=== PATIENT | male | born 1960 | race Caucasian/White ===

== ENCOUNTER 2023-02-07 10:30 | Outpatient (OUT) | payer MEDICARE, SELFPAY ==
--- NOTE | 2023-02-07 11:11 | MR_ITS ---
[address] [address] Patient Name: ELISE TABOR MRN: [id number] date: 1960 Sex: M Assigned Patient Location: MRI Current Patient Location: MRI Accession/Order Number: [id number] Exam Date: 02/07/2023 12:07 Report Date: 02/07/2023 13:24 At the request of: NON-STAFF PHYSICIAN Procedure: MR cervical spine wo con EXAM: MRI of the cervical spine without IV contrast. REASON FOR EXAM: Neck Pain,M54.2; Chronic Daily Headache R51.9 COMPARISON: None FINDINGS: No cervical spine fractures, acute malalignment or acute abnormal marrow signal. No spinal canal mass, hematoma or fluid collection. No abnormal cord signal. Mild retrolisthesis of C6 on C7 and C7 on T1. Small C4-C5, C6-C7 and C7-T1 posterior disc protrusions. Degenerative changes throughout the cervical spine with mild C6-C7 and C7-T1 disc space narrowing. Mild C4-C5 spinal canal stenosis. Mild to moderate C6-C7 and C7-T1 spinal canal stenoses. No other substantial spinal canal stenoses. Mild left C2-C3 neural foraminal stenosis. Mild bilateral C3-C4 neural foraminal stenoses. Moderate left and mild right C4-C5 neural foraminal stenoses. Mild bilateral C5-C6 neural foraminal stenoses. Moderate bilateral C6-C7 neural foraminal stenoses. Moderate bilateral C7-T1 neural foraminal stenoses. Remainder unremarkable. IMPRESSION: 1. No acute cervical spine abnormalities. 2. Mild to moderate C6-C7 and C7-T1 spinal canal stenoses. 3. Moderate left C4-C5, bilateral C6-C7 and bilateral C7-T1 neural foraminal stenoses. Electronically authenticated by: GERARD TORO Date: 02/07/2023 13:24
--- NOTE | 2023-02-07 13:25 | MR_ITS ---
[address] [address] Patient Name: ELISE TABOR MRN: [id number] date: 1960 Sex: M Assigned Patient Location: MRI Current Patient Location: MRI Accession/Order Number: [id number] Exam Date: 02/07/2023 12:45 Report Date: 02/07/2023 13:45 At the request of: NON-STAFF PHYSICIAN Procedure: MR lumbar spine wo con EXAM: MRI of the lumbar spine without IV gadolinium contrast. REASON FOR EXAM: degenerative disc disease M51.36; Parasthesia R20.2, back pain COMPARISON: None FINDINGS: No lumbar spine fractures, acute malalignment or acute abnormal marrow signal. No spinal canal mass, hematoma or fluid collection. Minimal grade 1 retrolisthesis of L2 on L3, L3-L4 and L4 on L5. Advanced degenerative changes throughout the lumbar spine with multilevel degenerative disc change/disc space narrowing. Small posterior disc protrusion at the L2-L3, L4-5 and L5-S1 levels. Mild L2-L3 spinal canal stenosis. Stenosis of the left lateral recess at the L3-L4 level. Mild L4-5 spinal canal stenosis with stenosis of the lateral recesses bilaterally. No other substantial neural foraminal stenoses. Mild right L3-L4 neural foraminal stenosis. Moderate right L4-5 and L5-S1 neural foraminal stenoses. Mild left L1-L2 neural foraminal stenosis. Moderate left L2-L3 neural foraminal stenosis. Mild left L3-L4 neural foraminal stenosis. Mild to moderate left L4-5 and L5-S1 neural foraminal stenoses. Remainder unremarkable. IMPRESSION: 1. No acute lumbar spine abnormalities. 2. Advanced degenerative disc changes throughout the lumbar spine. 3. Mild L2-L3, L3-L4 and L4-5 spinal canal stenoses. 4. Moderate right L4-5 and left L2-L3 neural foraminal stenoses. Electronically authenticated by: GERARD TORO Date: 02/07/2023 13:45
== END 2023-02-07 10:31 ==
LOC: MRI 10:37
DX: M51.36 Other intervertebral disc degeneration, lumbar region (principal); R20.2 Paresthesia of skin; M48.061 Spinal stenosis, lumbar region without neurogenic claudication; M48.02 Spinal stenosis, cervical region
CPT/HCPCS: 72141; 72148

== ENCOUNTER 2023-04-01 12:07 | Emergency (ER) | payer MEDICARE, SELFPAY ==
[2023-04-01] VITALS (19 sets, daily range): BP systolic 119–139; BP diastolic 84–89; PULSE 63–91; RESP 12–25; TEMP 36.8; O2SAT 88–98; BMI 35.9
--- NOTE | 2023-04-01 12:47 | ECG_ITS ---
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
--- NOTE | 2023-04-01 12:52 | XR_ITS ---
The [address] [address] Patient Name: ELISE TABOR MRN: [id number] date: 1960 Sex: M Assigned Patient Location: ER Current Patient Location: ED.MAIN Accession/Order Number: [id number] Exam Date: 04/01/2023 13:55 Report Date: 04/01/2023 14:24 At the request of: PARISH GANDARA Procedure: XR chest 2V EXAMINATION: XR chest 2V HISTORY: sob , productive cough COMPARISON: XR chest 06/06/2021 FINDINGS: LUNGS: Mild stranding within the lung bases and indistinctness of the heart margins. Hyperexpanded lungs. VASCULATURE: No increased pulmonary vasculature. PLEURA: No pneumothorax, effusion, or pleural thickening. CARDIAC: No cardiomegaly or cardiac silhouette abnormality. MEDIASTINUM: No visible mass or adenopathy. Prior sternotomy. BONES: No fracture or visible bone lesion. OTHER: Negative. XR/XR chest 2V IMPRESSION: 1. Hyperexpanded lungs. 2. Mild bibasilar stranding; stable compared to 2020 favoring chronic interstitial changes. Electronically authenticated by: ALEYDA DYER Date: 04/01/2023 14:24
[2023-04-01] MEDS: IPRATROPIUM/ALBUTEROL SULFATE 3 ML AMPUL.NEB 6 ML IH (13:01)
[2023-04-01 13:02] LABS: Basophils Absolute Auto 0.1 10^3/uL (0.0-0.1); Basophils Percent Auto 0.9 % (0.2-2.0); Eosinophils Absolute Auto 0.2 10^3/uL (0.0-0.7); Eosinophils Percent Auto 3.7 % (0.9-7.0); Hematocrit 38.4 % (42.0-54.0); Hemoglobin 13.4 g/dL (14.0-18.0); Immature Granulocytes Abs Auto 0.03 10^3/uL (0.00-0.03); Immature Granulocytes Pct Auto 0.5 % (0.0-0.5); Lymphocytes Absolute Auto 1.2 10^3/uL (1.2-3.8); Lymphocytes Percent Auto 18.6 % (20.5-60.0); Mean Corpuscular HGB Conc 34.9 g/dL (29.9-35.2); Mean Corpuscular Hemoglobin 32.1 pg (25.9-34.0); Mean Corpuscular Volume 92.1 fL (80.0-94.0); Monocytes Absolute Auto 0.5 10^3/uL (0.3-0.8); Monocytes Percent Auto 7.4 % (1.7-12.0); Neutrophils Absolute Auto 4.5 10^3/uL (1.4-6.5); Neutrophils Percent Auto 68.9 % (43.0-75.0); Platelet Count 146 10^3/uL (150-450); Red Blood Count 4.17 10^6/uL (4.70-6.10); Red Cell Distribution Width 12.6 % (11.0-15.0); White Blood Count 6.5 10^3/uL (4.0-11.0)
--- NOTE | 2023-04-01 13:16 | ED_ITS ---
HPI - General Adult General Chief complaint: Upper Respiratory Infection Stated complaint: abdominal pain Time Seen by Provider: 04/01/23 12:46 Source: patient Mode of arrival: walk-in Limitations: no limitations History of Present Illness HPI narrative: Patient is a 63-year-old male who is presenting to the Emergency Room with a chief complaint of cough and congestion going on for 2 weeks, greenish sputum. Patient doesn't a history of chronic obstructive pulmonary disease. Patient does wear 3 L of nasal cannula at all times. He wears 3 L of nasal cannula at nighttime as well, no CPAP or BiPAP. Patient states he's been having left lower quadrant abdominal pain going on for a week and a half. Patient had nausea no vomiting. Patient was at his PCP office today, Dr. Coto. Patient sees Dr. Bunn for pulmonology. Patient has history of chronic obstructive pulmonary disease. Patient is on a lung transplant wait list. Patient has a history of sepsis. Patient also been complaining some dysuria. Patient was recommended to come to the Emergency Room. Evaluation to [facility] because this is where Dr. Bunn practices per PCP. . All systems are negative except as noted/marked. All systems reviewed and otherwise negative. . Nurses note and vital signs reviewed and patient is not hypoxic. General: The patient appears well and in no apparent distress. Patient is resting comfortably on cart. Patient is not toxic, lethargic, or listless Skin: Warm, dry, no pallor noted. There is no rash noted. No petechiae, purpura. Head: Normocephalic, atraumatic Eye: Normal conjunctiva, no drainage, EOMI. PERRL Ears, Nose, Mouth, and Throat: oral mucosa is moist. Nares patent. Mouth without vesicles. Cardiovascular: Regular Rate and Rhythm, no murmur, gallop, rub Respiratory: Patient is in no distress, no accessory muscle use, lungs are clear to auscultation, no wheezing, rales or rhonchi; decreased breath sounds bilateral, no obvious wheezing, crackles or rales noted. Back: non-tender, no CVA tenderness bilaterally to percussion. No CT LS midline pain GI: soft, obese, mild to moderate left lower quadrant tenderness palpation, no peritoneal signs, no distention, no flank pain bilateral, otherwise no tenderness to palpation, no masses appreciated. No rebound, guarding, or rigidity noted. No flank pain bilateral, No distention. Musculoskeletal: Patient has full range of motion of all of the extremities, no motor, sensory, or focal neurological deficits Neurological: A&O x3, normal speech Psychiatric: Cooperative Related Data Home Medications Medication Instructions Recorded Confirmed ascorbic acid (vitamin C) 500 mg 1 g PO DAILY 04/01/23 04/01/23 tablet (C-500) aspirin 81 mg tablet,delayed 81 mg PO DAILY 04/01/23 04/01/23 release atorvastatin 40 mg tablet 40 mg PO DAILY 04/01/23 04/01/23 cholecalciferol (vitamin D3) .Route 04/01/23 ferrous sulfate 325 mg (65 mg 325 mg PO DAILY 04/01/23 04/01/23 iron) tablet (Feosol) fluticasone fur. 200 mcg-umeclid 1 inh inhalation Q24H 04/01/23 04/01/23 62.5 mcg-vilant 25 mcg inhalat.powder (Trelegy Ellipta) gabapentin 300 mg capsule 300 mg PO Q8H 04/01/23 04/01/23 ipratropium 0.5 mg-albuterol 3 mg 3 ml inhalation Q8H PRN shortness 04/01/23 04/01/23 (2.5 mg base)/3 mL nebulization of breath soln lisinopril 5 mg tablet 5 mg PO DAILY 04/01/23 04/01/23 mecobalamin (vitamin B12) 1,000 1,000 mcg PO DAILY 04/01/23 04/01/23 mcg chewable tablet metoprolol succinate 50 mg 100 mg PO DAILY 04/01/23 04/01/23 tablet,extended release 24 hr naproxen 250 mg tablet 220 mg PO BID PRN pain 04/01/23 04/01/23 nitroglycerin 0.4 mg sublingual 0.4 mg sublingual Q5M PRN chest 04/01/23 04/01/23 tablet pain omeprazole 40 mg capsule,delayed 40 mg PO DAILY 04/01/23 04/01/23 release oxcarbazepine 150 mg tablet 150 mg PO DAILY 04/01/23 04/01/23 roflumilast 500 mcg tablet 500 mcg PO DAILY 04/01/23 04/01/23 testosterone 50 mg/5 gram (1 %) 100 mg transdermal DAILY 04/01/23 04/01/23 transdermal gel theophylline 400 mg 400 mg PO Q24H 04/01/23 04/01/23 tablet,extended release 24 hr zinc 50 mg tablet 50 mg PO DAILY 04/01/23 04/01/23 Previous Rx's Medication Instructions Recorded dicyclomine 20 mg tablet 20 mg PO TID PRN abdominal pain #7 04/01/23 tabs doxycycline hyclate 100 mg tablet 100 mg PO BID 10 days #20 tabs 04/01/23 ondansetron 4 mg disintegrating 4 mg PO Q4H PRN nausea and 04/01/23 tablet vomiting 3 days #6 tabs Allergies Allergy/AdvReac Type Severity Reaction Status Date / Time No Known Drug Allergies Allergy Verified 04/01/23 12:17 PFSH PFSH Social History Smoking status: Former smoker Exam Constitutional Vital Signs, click to edit/add: Last Vital Signs Temp 98.2 F 04/01/23 12:12 Pulse 79 04/01/23 15:20 Resp 15 04/01/23 15:20 BP 139/86 H 04/01/23 13:30 Pulse Ox 98 04/01/23 14:50 O2 Del Method Nasal Cannula 04/01/23 13:03 O2 Flow Rate 3 04/01/23 13:03 Course Vital Signs Vital signs: Vital Signs Temperature 98.2 F 04/01/23 12:12 Pulse Rate 85 04/01/23 12:12 Respiratory Rate 22 04/01/23 12:12 Pulse Oximetry 96 04/01/23 12:12 Oxygen Delivery Method Nasal Cannula 04/01/23 12:12 Oxygen Delivery Flow Rate 3 04/01/23 12:12 Temperature 98.2 F 04/01/23 12:12 Pulse Rate 79 04/01/23 15:20 Respiratory Rate 15 04/01/23 15:20 Blood Pressure 139/86 H 04/01/23 13:30 Pulse Oximetry 98 04/01/23 14:50 Oxygen Delivery Method Nasal Cannula 04/01/23 13:03 Oxygen Delivery Flow Rate 3 04/01/23 13:03 Medical Decision Making MDM Narrative Medical decision making narrative: EKG interpretation. Normal sinus rhythm at 74 beats a minute. Normal axis deviation. No acute ST elevation, no acute ectopy. QTC of 390. Nonspecific ST changes. patient's x-ray shows no acute changes. Patient CT abdomen and pelvis shows possible mild colitis of the colon:, X-ray report and CT report was given to patient and the impressions were discussed at bedside. patient feels slightly better after breathing treatment and IV fluids.Patient will be sent home with doxycycline since she's had cough, congestion for 2 weeks. Patient does not want to be on steroids. Patient has nebulizers at home. Patient was sent home with Zofran and Bentyl these as needed. Patient was very nice and thankful for care today, and appendectomy is not admitted to the [facility]. Patient has a history of sepsis, that is what he was worried about. No signs of any acute infection today Lab Data Labs: Lab Results 04/01/23 04/01/23 Range/Units 12:40 13:15 WBC 6.5 (4.0-11.0) 10^3/uL RBC 4.17 L (4.70-6.10) 10^6/uL Hgb 13.4 L (14.0-18.0) g/dL Hct 38.4 L (42.0-54.0) % MCV 92.1 (80.0-94.0) fL MCH 32.1 (25.9-34.0) pg MCHC 34.9 (29.9-35.2) g/dL RDW 12.6 (11.0-15.0) % Plt Count 146 L (150-450) 10^3/uL MPV 9.0 L (9.5-13.5) fL Neut % (Auto) 68.9 (43.0-75.0) % Lymph % (Auto) 18.6 L (20.5-60.0) % [place] % (Auto) 7.4 (1.7-12.0) % Eos % (Auto) 3.7 (0.9-7.0) % Baso % (Auto) 0.9 (0.2-2.0) % Neut # (Auto) 4.5 (1.4-6.5) 10^3/uL Lymph # (Auto) 1.2 (1.2-3.8) 10^3/uL [place] # (Auto) 0.5 (0.3-0.8) 10^3/uL Eos # (Auto) 0.2 (0.0-0.7) 10^3/uL Baso # (Auto) 0.1 (0.0-0.1) 10^3/uL Abs Immat Gran (auto) 0.03 (0.00-0.03) 10^3/uL Imm/Tot Granulo (auto) 0.5 (0.0-0.5) % Sodium 144 (136-145) mmol/L Potassium 4.1 (3.5-5.1) mmol/L Chloride 105 (98-107) mmol/L Carbon Dioxide 32.7 H (21.0-32.0) mmol/L Anion Gap 10.4 BUN 17.0 (7.0-18.0) mg/dL Creatinine 0.87 (0.70-1.30) mg/dL Est GFR ( Amer) >60 (>=60) Est GFR (Non-Af Amer) >60 (>=60) BUN/Creatinine Ratio 19.5 Glucose 97 (74-106) mg/dL Lactate 1.0 (0.4-2.0) mmol/L Calcium 8.8 (8.5-10.1) mg/dL Total Bilirubin 0.4 (0.2-1.0) mg/dL AST 24 (15-37) U/L ALT 38 (16-63) U/L Alkaline Phosphatase 73 (46-116) U/L Troponin I High Sens 16.8 (4.0-76.1) pg/mL Total Protein 7.0 (6.4-8.2) g/dL Albumin 3.7 (3.4-5.0) g/dL Globulin 3.3 g/dL Albumin/Globulin Ratio 1.1 Lipase 90.0 (73.0-393.0) U/L Urine Color Lt. yellow (YELLOW) Urine Clarity Clear (CLEAR) Urine pH 7.0 (5.0-9.0) Ur Specific [place] 1.010 (1.005-1.025) Urine Protein Negative (NEG/TRACE) mg/dL Urine Glucose (UA) Negative (NEGATIVE) mg/dL Urine Ketones Negative (NEGATIVE) mg/dL Urine Occult Blood Negative (NEGATIVE) Urine Nitrite Negative (NEGATIVE) Urine Bilirubin Negative (NEGATIVE) Urine Urobilinogen 0.2 (0.2-1.0) EU/dL Ur Leukocyte Esterase Trace A (NEGATIVE) Urine RBC 0-2 (0-2) #/HPF Urine WBC 2-5 A (NONE SEEN) #/HPF Ur Squamous Epith Cells Rare (NONE/RARE) #/LPF Urine Crystals None seen (None Seen) #/HPF Urine Bacteria None seen (NONE SEEN) #/HPF Urine Casts None seen (NONE SEEN) #/LPF Urine Mucus None seen (NONE SEEN) Ur Culture Indicated? No Discharge Plan Discharge Chief Complaint: Upper Respiratory Infection Clinical Impression: Upper respiratory infection, Abdominal pain, Bronchitis Condition: Fair Prescriptions / Home Meds: New doxycycline hyclate 100 mg tablet 100 mg PO BID 10 Days Qty: 20 0RF ondansetron 4 mg tablet,disintegrating 4 mg PO Q4H PRN (Reason: nausea and vomiting) 3 Days Qty: 6 0RF dicyclomine 20 mg tablet 20 mg PO TID PRN (Reason: abdominal pain) Qty: 7 0RF No Action atorvastatin 40 mg tablet 40 mg PO DAILY ipratropium-albuterol 0.5 mg-3 mg(2.5 mg base)/3 mL solution for nebulization 3 ml INHALATION Q8H PRN (Reason: shortness of breath) lisinopril 5 mg tablet 5 mg PO DAILY metoprolol succinate 50 mg tablet extended release 24 hr 100 mg PO DAILY omeprazole 40 mg capsule,delayed release(DR/EC) 40 mg PO DAILY theophylline 400 mg tablet extended release 24 hr 400 mg PO Q24H roflumilast 500 mcg tablet 500 mcg PO DAILY oxcarbazepine 150 mg tablet 150 mg PO DAILY Trelegy Ellipta 200-62.5-25 mcg blister with device 1 inh INHALATION Q24H gabapentin 300 mg capsule 300 mg PO Q8H aspirin 81 mg tablet,delayed release (DR/EC) 81 mg PO DAILY nitroglycerin 0.4 mg tablet, sublingual 0.4 mg sublingual Q5M PRN (Reason: chest pain) testosterone 50 mg/5 gram (1 %) gel 100 mg transdermal DAILY Patient Comments: naproxen 250 mg tablet 220 mg PO BID PRN (Reason: pain) mecobalamin (vitamin B12) 1,000 mcg tablet,chewable 1,000 mcg PO DAILY ascorbic acid (vitamin C) [C-500] 500 mg tablet 1 g PO DAILY cholecalciferol (vitamin D3) .Route ferrous sulfate [Feosol] 325 mg (65 mg iron) tablet 325 mg PO DAILY zinc 50 mg tablet 50 mg PO DAILY Instructions: Upper Respiratory Infection (ED), Acute Bronchitis (ED), Abdominal Pain (ED), Colitis (ED) Stand Alone Forms: Portal Instructions Referrals: Physician,Non-Staff, MD [Primary Care Provider] - 1 week
[2023-04-01 13:21] LABS: Alanine Aminotransferase 38 U/L (16-63); Albumin Globulin Ratio 1.1; Albumin Level 3.7 g/dL (3.4-5.0); Alkaline Phosphatase 73 U/L (46-116); Anion Gap 10.4; Aspartate Amino Transferase 24 U/L (15-37); BUN Creatinine Ratio 19.5; Bilirubin Total 0.4 mg/dL (0.2-1.0); Calcium 8.8 mg/dL (8.5-10.1); Carbon Dioxide 32.7 mmol/L (21.0-32.0); Chloride 105 mmol/L (98-107); Estimated GFR (African America >60 (>=60); Estimated GFR (Non-African Ame >60 (>=60); Globulin 3.3 g/dL; Glucose 97 mg/dL (74-106); Potassium 4.1 mmol/L (3.5-5.1); Sodium 144 mmol/L (136-145); Troponin I High Sensitivity 16.8 pg/mL (4.0-76.1)
[2023-04-01] MEDS: 0.9 % SODIUM CHLORIDE 1,000 ML 100 ML IV (13:24)
[2023-04-01 13:45] LABS: Bilirubin Urine NEGATIVE (NEGATIVE); Blood Urine NEGATIVE (NEGATIVE); Clarity Urine CLEAR (CLEAR); Color Urine LT. YELLOW (YELLOW); Glucose Urine UA NEGATIVE (NEGATIVE); Ketones Urine NEGATIVE (NEGATIVE); Leukocyte Esterase Urine TRACE (NEGATIVE); Nitrite Urine NEGATIVE (NEGATIVE); Protein Urine NEGATIVE (NEG/TRACE); Urobilinogen Urine 0.2 EU/dL (0.2-1.0)
--- NOTE | 2023-04-01 13:50 | CT_ITS ---
[address] [address] Patient Name: ELISE TABOR MRN: [id number] date: 1960 Sex: M Assigned Patient Location: ER Current Patient Location: Accession/Order Number: [id number] Exam Date: 04/01/2023 13:40 Report Date: 04/01/2023 14:38 At the request of: PARISH GANDARA Procedure: CT abdomen pelvis w con EXAMINATION: CT abdomen pelvis w con HISTORY: llq pain COMPARISON: No relevant comparison available. TECHNIQUE: Axial, Coronal, and Sagittal images were obtained without and/or with IV contrast as indicated by examination type. Dose reduction techniques were achieved by using automated exposure control and/or adjustment of mA and/or kV according to patient size and/or use of iterative reconstruction technique. FINDINGS: LUNG BASES: Incidental calcified granuloma within right lung base. No visible pulmonary or pleural disease. LIVER: No enlargement, atrophy, suspicious density, or significant focal lesion. BILIARY: Multiple small stones within noninflamed gallbladder. PANCREAS: No lesion, fluid collection, or abnormal duct dilatation. SPLEEN: No enlargement or focal lesion. ADRENALS: No mass or enlargement. KIDNEYS: Benign-appearing cyst within right and left kidney. No mass, obstruction, or calcification. BOWEL/MESENTERY: Completely empty colon with slightly edematous appearance of the hurst throughout its length. Unremarkable stomach and small bowel. Normal appendix. AORTA/VASCULAR: No aneurysm or dissection. RETROPERITONEUM: No mass or adenopathy. LYMPH NODES: No adenopathy. URINARY BLADDER: No visible focal wall thickening, lesion, or calculus. PELVIC ORGANS: No visible mass. Pelvic organs appropriate for patient age. ABDOMINAL WALL: No mass or hernia. BONES: Right convex curvature lumbar spine and multilevel marked degenerative disc disease. Bilateral hip replacements. OTHER: Negative. CT/CT abdomen pelvis w con IMPRESSION: 1.Slightly edematous appearance of hrust of the colon throughout its length; possible mild colitis. 2. Cholelithiasis. 3. Multilevel marked degenerative disc disease. Electronically authenticated by: ALEYDA DYER Date: 04/01/2023 14:38
[2023-04-01 14:02] LABS: Bacteria Urine NONE SEEN #/HPF (NONE SEEN); Mucus Urine NONE SEEN (NONE SEEN); RBC Urine 0-2 #/HPF (0-2); Squamous Epithelial Cell Urine RARE #/LPF (NONE/RARE)
[2023-04-01 14:03] LABS: Cast Seen? NONE SEEN #/LPF (NONE SEEN); Crystals Seen? None Seen #/HPF (None Seen); Urine Culture Indicated NO
== END 2023-04-01 15:43 | disposition home or self-care (01) ==
PROVIDERS: Emergency Provider Emergency Medicine
DX: J40 Bronchitis, not specified as acute or chronic (principal); J06.9 Acute upper respiratory infection, unspecified; R10.9 Unspecified abdominal pain; Z99.81 Dependence on supplemental oxygen; Z76.82 Awaiting organ transplant status; Z79.82 Long term (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 of aspirin; Z79.899 Other long term (current) drug therapy; Z87.891 Personal history of nicotine dependence
CPT/HCPCS: 36415; 71046; 74177; 80053; 81001; 83605; 83690; 84484; 85025; 93005; 94640; 99285; Q9967

== ENCOUNTER 2023-05-02 13:48 | Outpatient (OUT) | payer MEDICARE, SELFPAY ==
--- NOTE | 2023-05-02 14:30 | CT_ITS ---
The [address] [address] Patient Name: ELISE TABOR MRN: [id number] date: 1960 Sex: M Assigned Patient Location: CT Current Patient Location: Accession/Order Number: [id number] Exam Date: 05/02/2023 14:25 Report Date: 05/04/2023 09:21 At the request of: DARNELL ALICEA Procedure: CT lung screening low-dose EXAM: CT lung screening low-dose HISTORY: History Of Tobacco Dependence Z87.891 COMPARISON: Low-dose CT lung screen dated 04/26/2022. TECHNIQUE: Routine low-dose CT lung screen without intravenous contrast. FINDINGS: Cardiovascular: Previous coronary artery bypass graft surgery. Severe multivessel coronary calcifications. Mild aortic valvular calcification. Stable fusiform aneurysm of the ascending thoracic aorta measuring 4.7 cm. Mild atheromatous calcification thoracic and abdominal aorta. Mild atheromatous calcification origin of the great vessels off the aortic arch. Atheromatous calcifications scattered along the splenic artery. Dilated pulmonary trunk measuring 3.6 cm in transverse dimension consistent with pulmonary artery hypertension. Lungs: Centrilobular emphysema. Peribronchial thickening consistent with acute and/or chronic bronchitis. Atelectatic densities within the right middle and right lower lobes. Nodules: There are no suspicious masses or nodules within the chest. Lymphadenopathy: There are no pathologically enlarged axillary, mediastinal or hilar lymph nodes. Other: The trachea, esophagus and thyroid gland are unremarkable. Upper abdomen: Cholelithiasis. Osseous: The bony structures are osteopenic. There are endplate spurs and paravertebral ossifications at multiple levels along the spine. CT/CT lung screening low-dose IMPRESSION: Centrilobular emphysema with peribronchial thickening consistent with acute and/or chronic bronchitis. There are no suspicious masses or nodules within the chest or pathologically enlarged lymph nodes. Previous coronary artery bypass graft surgery. There are severe multivessel coronary calcifications. Stable fusiform aneurysm of the ascending thoracic aorta measuring 4.7 cm. Dilated pulmonary trunk measuring 3.6 cm in transverse dimension consistent with pulmonary artery hypertension. Cholelithiasis. Lung rads score 1. A low-dose CT lung screen examination in 12 months is recommended. Electronically authenticated by: JILLIAN CANTU Date: 05/04/2023 09:21
== END 2023-05-02 13:49 | disposition home or self-care (01) ==
LOC: CT 13:48
PROVIDERS: Visit Provider Internal Medicine
DX: Z87.891 Personal history of nicotine dependence (principal); J43.2 Centrilobular emphysema; Z95.1 Presence of aortocoronary bypass graft; I71.21 Aneurysm of the ascending aorta, without rupture; I27.20 Pulmonary hypertension, unspecified; K80.20 Calculus of gallbladder without cholecystitis without obstruction
CPT/HCPCS: 71271

== ENCOUNTER 2023-05-02 14:49 | Emergency (ER) | payer MEDICARE, SELFPAY ==
[2023-05-02 14:55] VITALS: BP 116/71; PULSE 78; RESP 18; O2SAT 95; BMI 36.5
[2023-05-02 16:07] VITALS: BP 144/81; PULSE 83; RESP 16; TEMP 36.6; O2SAT 96
[2023-05-02 16:11] VITALS: O2SAT 96
--- NOTE | 2023-05-02 16:11 | ED.SOB1 ---
HPI - SOB/Dyspnea General Chief Complaint: Shortness of Breath/Dyspnea Stated Complaint: SHORTNESS OF BREATH Time Seen by Provider: 05/02/23 16:11 Source: patient Mode of arrival: walk-in Limitations: no limitations History of Present Illness HPI Narrative: Patient presents to emergency department complaining of a cough. Patient states in the last 3 days has had a cough which is productive of yellow-green sputum. He states he has a history of chronic obstructive pulmonary disease and this has changed in color. Patient is on home oxygen. He is scheduled to see Dr. Bunn next week however he had a CT scan of his chest done just prior to coming to the emergency department. Patient states he stopped his oxygen a little better at home. He denies any chest pain, nausea, vomiting, diarrhea, constipation, abdominal pain. He is not currently on any antibiotics, or steroids. He denies any Fever but states he had chills. Patient states he called his primary doctor and his primary care doctor normally gives him a Z-Dl for this and that is what he needs one now. He already had a CAT scan done does not have any other complaints and is asking for me to help him with a Z-Dl. He states no past if he doesn't get the infection early on the control is gets pneumonia easily has to be hospitalized. Related Data Home Medications Medication Instructions Recorded Confirmed ascorbic acid (vitamin C) 500 mg 1 g PO DAILY 04/01/23 04/01/23 tablet (C-500) aspirin 81 mg tablet,delayed 81 mg PO DAILY 04/01/23 04/01/23 release atorvastatin 40 mg tablet 40 mg PO DAILY 04/01/23 04/01/23 cholecalciferol (vitamin D3) .Route 04/01/23 ferrous sulfate 325 mg (65 mg 325 mg PO DAILY 04/01/23 04/01/23 iron) tablet (Feosol) fluticasone fur. 200 mcg-umeclid 1 inh inhalation Q24H 04/01/23 04/01/23 62.5 mcg-vilant 25 mcg inhalat.powder (Trelegy Ellipta) gabapentin 300 mg capsule 300 mg PO Q8H 04/01/23 04/01/23 ipratropium 0.5 mg-albuterol 3 mg 3 ml inhalation Q8H PRN shortness 04/01/23 04/01/23 (2.5 mg base)/3 mL nebulization of breath soln lisinopril 5 mg tablet 5 mg PO DAILY 04/01/23 04/01/23 mecobalamin (vitamin B12) 1,000 1,000 mcg PO DAILY 04/01/23 04/01/23 mcg chewable tablet metoprolol succinate 50 mg 100 mg PO DAILY 04/01/23 04/01/23 tablet,extended release 24 hr naproxen 250 mg tablet 220 mg PO BID PRN pain 04/01/23 04/01/23 nitroglycerin 0.4 mg sublingual 0.4 mg sublingual Q5M PRN chest 04/01/23 04/01/23 tablet pain omeprazole 40 mg capsule,delayed 40 mg PO DAILY 04/01/23 04/01/23 release oxcarbazepine 150 mg tablet 150 mg PO DAILY 04/01/23 04/01/23 roflumilast 500 mcg tablet 500 mcg PO DAILY 04/01/23 04/01/23 testosterone 50 mg/5 gram (1 %) 100 mg transdermal DAILY 04/01/23 04/01/23 transdermal gel theophylline 400 mg 400 mg PO Q24H 04/01/23 04/01/23 tablet,extended release 24 hr zinc 50 mg tablet 50 mg PO DAILY 04/01/23 04/01/23 Previous Rx's Medication Instructions Recorded dicyclomine 20 mg tablet 20 mg PO TID PRN abdominal pain #7 04/01/23 tabs doxycycline hyclate 100 mg tablet 100 mg PO BID 10 days #20 tabs 04/01/23 ondansetron 4 mg disintegrating 4 mg PO Q4H PRN nausea and 04/01/23 tablet vomiting 3 days #6 tabs azithromycin 250 mg tablet See Rx Instructions PO .COMPLEX #6 05/02/23 (Zithromax) tabs Allergies Allergy/AdvReac Type Severity Reaction Status Date / Time No Known Drug Allergies Allergy Verified 04/01/23 12:17 Review of Systems ROS Status of ROS 10 or more systems reviewed and unremarkable except as noted in history and below [facility] Social History Smoking status: Former smoker Exam Narrative Exam Narrative: Nurses notes and vital signs reviewed and patient is not hypoxic. General: Nontoxic,and in no apparent distress. Skin: Warm, dry, no pallor noted. No Rash Head: Normocephalic, atraumatic. Neck: Supple, non-tender. Eye: Pupils are equal, round and EOMI. No scleral icterus. Ears, Nose, Mouth, and Throat: TM clear, no posterior oropharynx erythema or nasal mucosal hypertrophy, uvula is mid-line Oral mucosa is moist Cardiovascular: Regular Rate and Rhythm without murmur, gallop or rub. Respiratory: No accessory muscle use or respiratory distress. Lungs are clear to auscultation, no wheezing, rales or rhonchi Chest Wall: no tenderness Back: No midline thoracic or lumbar vertebral tenderness. No CVA tenderness Musculoskeletal: normal ROM, no calf or popliteal tenderness, no lower extremity edema/swelling GI: Abdomen is soft, non-distended. Normal bowel sounds. No masses appreciated. No tenderness to palpation. No rebound, guarding, or rigidity noted. Neurological: A&O x4. No cranial nerve dysfunction observed. No truncal ataxia. Moves all extremities. Sensation intact. Psychiatric: Cooperative and interactive. Normal mood and affect. Constitutional Vital Signs, click to edit/add: Last Vital Signs Temp 97.9 F 05/02/23 16:07 Pulse 83 05/02/23 16:07 Resp 16 05/02/23 16:07 BP 144/81 H 05/02/23 16:07 Pulse Ox 96 05/02/23 16:11 O2 Del Method Nasal Cannula 05/02/23 16:11 O2 Flow Rate 3 05/02/23 16:11 Course Vital Signs Vital signs: Vital Signs Pulse Rate 78 05/02/23 14:55 Respiratory Rate 18 05/02/23 14:55 Blood Pressure 116/71 05/02/23 14:55 Pulse Oximetry 95 05/02/23 14:55 Oxygen Delivery Method Nasal Cannula 05/02/23 14:55 Oxygen Delivery Flow Rate 3 05/02/23 14:55 Temperature 97.9 F 05/02/23 16:07 Pulse Rate 83 05/02/23 16:07 Respiratory Rate 16 05/02/23 16:07 Blood Pressure 144/81 H 05/02/23 16:07 Pulse Oximetry 96 05/02/23 16:11 Oxygen Delivery Method Nasal Cannula 05/02/23 16:11 Oxygen Delivery Flow Rate 3 05/02/23 16:11 MDM - SOB/Dyspnea MDM Narrative Medical decision making narrative: CT scan of the chest was reviewed by me. CT scan results by radiology are not available at this time. Patient has nebulized treatments at home. He'll follow up with Dr. Knight next week. Given a prescription for Zithromax. At this time the patient is without objective evidence of an acute process requiring hospitalization or inpatient management. The patient has remained hemodynamically stable. No additional indication for emergent studies at this time. I answered all questions. Discussed discharge instructions including standard anticipatory guidance and what should prompt a return to the emergency department, including if they get worse are not getting better or develops any new or concerning symptoms. I've given them specific time frame in which to follow-up, and who to follow-up with. The patient demonstrates understanding. Patient is nontoxic and stable for discharge with outpatient follow-up. This note was created with the assistance of a speech recognition program. Although the intention is to generate documents that actually reflects the content of the visit, no guarantees can be provided that every mistake has been identified and corrected by editing. Differential Diagnosis Differential diagnosis: Likely acute exacerbation of chronic obstructive airways disease, congestive heart failure, community acquired pneumonia and asthma with exacerbation Discharge Plan Discharge Chief Complaint: Shortness of Breath/Dyspnea Clinical Impression: Acute infective exacerbation of chronic obstructive airway disease Time of Disposition Decision: 16:23 Condition: Good Mode of Transportation: Private Vehicle Prescriptions / Home Meds: New azithromycin [Zithromax] 250 mg tablet See Rx Instructions .ROUTE .COMPLEX Qty: 6 0RF Rx Instructions: For 250 mg dose pack: take 500 mg today (day 1), then 250 mg for 4 days (days 2-5) No Action atorvastatin 40 mg tablet 40 mg PO DAILY ipratropium-albuterol 0.5 mg-3 mg(2.5 mg base)/3 mL solution for nebulization 3 ml INHALATION Q8H PRN (Reason: shortness of breath) lisinopril 5 mg tablet 5 mg PO DAILY metoprolol succinate 50 mg tablet extended release 24 hr 100 mg PO DAILY omeprazole 40 mg capsule,delayed release(DR/EC) 40 mg PO DAILY theophylline 400 mg tablet extended release 24 hr 400 mg PO Q24H roflumilast 500 mcg tablet 500 mcg PO DAILY oxcarbazepine 150 mg tablet 150 mg PO DAILY Trelegy Ellipta 200-62.5-25 mcg blister with device 1 inh INHALATION Q24H gabapentin 300 mg capsule 300 mg PO Q8H aspirin 81 mg tablet,delayed release (DR/EC) 81 mg PO DAILY nitroglycerin 0.4 mg tablet, sublingual 0.4 mg sublingual Q5M PRN (Reason: chest pain) testosterone 50 mg/5 gram (1 %) gel 100 mg transdermal DAILY Patient Comments: naproxen 250 mg tablet 220 mg PO BID PRN (Reason: pain) mecobalamin (vitamin B12) 1,000 mcg tablet,chewable 1,000 mcg PO DAILY ascorbic acid (vitamin C) [C-500] 500 mg tablet 1 g PO DAILY cholecalciferol (vitamin D3) .Route ferrous sulfate [Feosol] 325 mg (65 mg iron) tablet 325 mg PO DAILY zinc 50 mg tablet 50 mg PO DAILY doxycycline hyclate 100 mg tablet 100 mg PO BID 10 Days Qty: 20 0RF ondansetron 4 mg tablet,disintegrating 4 mg PO Q4H PRN (Reason: nausea and vomiting) 3 Days Qty: 6 0RF dicyclomine 20 mg tablet 20 mg PO TID PRN (Reason: abdominal pain) Qty: 7 0RF Instructions: COPD (Chronic Obstructive Pulmonary Disease) (ED) Stand Alone Forms: Portal Instructions Referrals: Hu Bunn DO [Physician] - 1 week
--- NOTE | 2023-05-02 16:41 | ECG_ITS ---
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
== END 2023-05-02 16:40 | disposition home or self-care (01) ==
PROVIDERS: Emergency Provider Emergency Medicine
DX: J43.2 Centrilobular emphysema (principal); Z87.891 Personal history of nicotine dependence; Z95.1 Presence of aortocoronary bypass graft; I71.21 Aneurysm of the ascending aorta, without rupture; I27.20 Pulmonary hypertension, unspecified; K80.20 Calculus of gallbladder without cholecystitis without obstruction; Z79.899 Other long term (current) drug therapy; Z79.82 Long term (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 of aspirin
CPT/HCPCS: 71271; 93005; 99283

== ENCOUNTER 2023-06-12 11:17 | Emergency (ER) | payer MEDICARE, SELFPAY ==
[2023-06-12 11:26] VITALS: BP 124/84; PULSE 77; RESP 20; TEMP 36.6; O2SAT 95; BMI 37.3
--- NOTE | 2023-06-12 11:51 | XR_ITS ---
The [place] [id number] Patient Name: ELISE TABOR MRN: [id number] date: 1960 Sex: M Assigned Patient Location: ER Current Patient Location: ER Accession/Order Number: [id number] Exam Date: 06/12/2023 12:20 Report Date: 06/12/2023 13:34 At the request of: TAMAR SARKAR Procedure: XR hip LT min 2V PROCEDURE: XR hip LT min 2V COMPARISON: None. HISTORY: fall FINDINGS: BONES:No acute fracture or dislocation. Total hip arthroplasty with press-fit femoral stem component SOFT TISSUES:Negative. No visible soft tissue swelling. EFFUSION:None visible. OTHER: Vascular calcification XR/XR hip LT min 2V IMPRESSION: No acute abnormality Electronically authenticated by: JOSE GUADALUPE CLAIRE Date: 06/12/2023 13:34
--- NOTE | 2023-06-12 11:51 | XR_ITS ---
The [place] [id number] Patient Name: LEISE TABOR MRN: [id number] date: 1960 Sex: M Assigned Patient Location: ER Current Patient Location: ER Accession/Order Number: [id number] Exam Date: 06/12/2023 12:20 Report Date: 06/12/2023 13:05 At the request of: TAMAR SARKAR Procedure: XR knee LT 3V EXAM: XR knee LT 3V HISTORY: fall COMPARISON: None. TECHNIQUE: 3 views of the left knee FINDINGS: There is no acute fracture-dislocation. No knee joint effusion. There is mild medial compartment osteoarthritis. There is vascular calcification. The soft tissue is unremarkable. XR/XR knee LT 3V IMPRESSION: No acute process. Electronically authenticated by: JORGE HI Date: 06/12/2023 13:05
--- NOTE | 2023-06-12 11:51 | ED.LOWEXI1 ---
HPI - Extremity Injury (Lower) General Chief Complaint: Extremity Injury, Lower Stated Complaint: LOWER EXTREMITY INJURY LEFT KNEE Time Seen by Provider: 06/12/23 11:48 Source: patient Mode of arrival: Wheelchair Limitations: no limitations History of Present Illness HPI Narrative: 63-year-old male presents for left hip and left knee pain. He got up in the middle the night and he hit his right small toe and it caused him to fall and he felt a popping sensation in his left leg. Both his hip and his knee hurt. He has some bruising at the 5th toe the right foot but he is not worried about that and doesn't want an x-ray of his right foot. The pain in his left leg is moderate and worse when he moves it. Related Data Home Medications Medication Instructions Recorded Confirmed ascorbic acid (vitamin C) 500 mg 1 g PO DAILY 04/01/23 04/01/23 tablet (C-500) aspirin 81 mg tablet,delayed 81 mg PO DAILY 04/01/23 04/01/23 release atorvastatin 40 mg tablet 40 mg PO DAILY 04/01/23 04/01/23 cholecalciferol (vitamin D3) .Route 04/01/23 ferrous sulfate 325 mg (65 mg 325 mg PO DAILY 04/01/23 04/01/23 iron) tablet (Feosol) fluticasone fur. 200 mcg-umeclid 1 inh inhalation Q24H 04/01/23 04/01/23 62.5 mcg-vilant 25 mcg inhalat.powder (Trelegy Ellipta) gabapentin 300 mg capsule 300 mg PO Q8H 04/01/23 04/01/23 ipratropium 0.5 mg-albuterol 3 mg 3 ml inhalation Q8H PRN shortness 04/01/23 04/01/23 (2.5 mg base)/3 mL nebulization of breath soln lisinopril 5 mg tablet 5 mg PO DAILY 04/01/23 04/01/23 mecobalamin (vitamin B12) 1,000 1,000 mcg PO DAILY 04/01/23 04/01/23 mcg chewable tablet metoprolol succinate 50 mg 100 mg PO DAILY 04/01/23 04/01/23 tablet,extended release 24 hr naproxen 250 mg tablet 220 mg PO BID PRN pain 07/25/23 07/25/23 nitroglycerin 0.4 mg sublingual 0.4 mg sublingual Q5M PRN chest 04/01/23 04/01/23 tablet pain omeprazole 40 mg capsule,delayed 40 mg PO DAILY 04/01/23 04/01/23 release oxcarbazepine 150 mg tablet 150 mg PO DAILY 04/01/23 04/01/23 roflumilast 500 mcg tablet 500 mcg PO DAILY 04/01/23 04/01/23 testosterone 50 mg/5 gram (1 %) 100 mg transdermal DAILY 04/01/23 04/01/23 transdermal gel theophylline 400 mg 400 mg PO Q24H 04/01/23 04/01/23 tablet,extended release 24 hr zinc 50 mg tablet 50 mg PO DAILY 04/01/23 04/01/23 Previous Rx's Medication Instructions Recorded dicyclomine 20 mg tablet 20 mg PO TID PRN abdominal pain #7 04/01/23 tabs doxycycline hyclate 100 mg tablet 100 mg PO BID 10 days #20 tabs 04/01/23 ondansetron 4 mg disintegrating 4 mg PO Q4H PRN nausea and 04/01/23 tablet vomiting 3 days #6 tabs azithromycin 250 mg tablet See Rx Instructions PO .COMPLEX #6 05/02/23 (Zithromax) tabs acetaminophen 300 mg-codeine 30 mg 1 tab PO Q6H PRN pain 5 days #20 06/12/23 tablet tabs Allergies Allergy/AdvReac Type Severity Reaction Status Date / Time No Known Drug Allergies Allergy Verified 04/01/23 12:17 Review of Systems ROS Narrative A ten point review of systems is negative except as noted above. PFSH PFSH Social History Smoking status: Former smoker Exam Narrative Exam Narrative: Nurses note and vital signs reviewed and patient is not hypoxic. General: The patient appears well and in no apparent distress. Patient is resting comfortably on cart. Skin: Warm, dry, no pallor noted. There is no rash noted. Head: Normocephalic, atraumatic Eye: Normal conjunctiva, no drainage Ears, Nose, Mouth, and Throat: oral mucosa is moist. Cardiovascular: Regular Rate and Rhythm Respiratory: Patient is in no distress, no accessory muscle use, lungs are clear to auscultation, no wheezing, rales or rhonchi Back: non-tender GI: nontender Musculoskeletal: he has some bruising at the right 5th toe. Skin intact. No tenderness in the left foot or left ankle. The left knee has no deformity or swelling but has some tenderness in the left hip has some tenderness but no deformity. Neurological: A&O, normal speech Psychiatric: Cooperative Constitutional Vital Signs, click to edit/add: Last Vital Signs Temp 98 F 06/12/23 11:26 Pulse 77 06/12/23 11:26 Resp 20 06/12/23 11:26 BP 124/84 06/12/23 11:26 Pulse Ox 95 06/12/23 11:26 O2 Del Method Nasal Cannula 06/12/23 11:26 O2 Flow Rate 3 06/12/23 11:26 Course Vital Signs Vital signs: Vital Signs Temperature 98 F 06/12/23 11:26 Pulse Rate 77 06/12/23 11:26 Respiratory Rate 20 06/12/23 11:26 Blood Pressure 124/84 06/12/23 11:26 Pulse Oximetry 95 06/12/23 11:26 Oxygen Delivery Method Nasal Cannula 06/12/23 11:26 Oxygen Delivery Flow Rate 3 06/12/23 11:26 Temperature 98 F 06/12/23 11:26 Pulse Rate 77 06/12/23 11:26 Respiratory Rate 20 06/12/23 11:26 Blood Pressure 124/84 06/12/23 11:26 Pulse Oximetry 95 06/12/23 11:26 Oxygen Delivery Method Nasal Cannula 06/12/23 11:26 Oxygen Delivery Flow Rate 3 06/12/23 11:26 MDM - Extremity Injury (Lower) Differential Diagnosis Differential diagnosis: Likely other (Hip fracture, hip strain, knee fracture, knee strain) Imaging Data left hip and left knee x-rays: Radiologist's impression: Procedure: XR knee LT 3V EXAM: XR knee LT 3V HISTORY: fall COMPARISON: None. TECHNIQUE: 3 views of the left knee FINDINGS: There is no acute fracture-dislocation. No knee joint effusion. There is mild medial compartment osteoarthritis. There is vascular calcification. The soft tissue is unremarkable. IMPRESSION: No acute process. Electronically authenticated by: JORGE HI Date: 06/12/2023 13:05 Procedure: XR hip LT min 2V PROCEDURE: XR hip LT min 2V COMPARISON: None. HISTORY: fall FINDINGS: BONES:No acute fracture or dislocation. Total hip arthroplasty with press-fit femoral stem component SOFT TISSUES:Negative. No visible soft tissue swelling. EFFUSION:None visible. OTHER: Vascular calcification IMPRESSION: No acute abnormality Electronically authenticated by: JOSE GUADALUPE CLAIRE Date: 06/12/2023 Discharge Plan Discharge Chief Complaint: Extremity Injury, Lower Clinical Impression: Acute pain of left lower extremity Patient Disposition: Home, Self-Care Time of Disposition Decision: 13:48 Condition: Good Mode of Transportation: Private Vehicle Prescriptions / Home Meds: New acetaminophen-codeine 300-30 mg tablet 1 tab PO Q6H PRN (Reason: pain) 5 Days Qty: 20 0RF No Action atorvastatin 40 mg tablet 40 mg PO DAILY ipratropium-albuterol 0.5 mg-3 mg(2.5 mg base)/3 mL solution for nebulization 3 ml INHALATION Q8H PRN (Reason: shortness of breath) lisinopril 5 mg tablet 5 mg PO DAILY metoprolol succinate 50 mg tablet extended release 24 hr 100 mg PO DAILY omeprazole 40 mg capsule,delayed release(DR/EC) 40 mg PO DAILY theophylline 400 mg tablet extended release 24 hr 400 mg PO Q24H roflumilast 500 mcg tablet 500 mcg PO DAILY oxcarbazepine 150 mg tablet 150 mg PO DAILY Trelegy Ellipta 200-62.5-25 mcg blister with device 1 inh INHALATION Q24H gabapentin 300 mg capsule 300 mg PO Q8H aspirin 81 mg tablet,delayed release (DR/EC) 81 mg PO DAILY nitroglycerin 0.4 mg tablet, sublingual 0.4 mg sublingual Q5M PRN (Reason: chest pain) testosterone 50 mg/5 gram (1 %) gel 100 mg transdermal DAILY Patient Comments: naproxen 250 mg tablet 220 mg PO BID PRN (Reason: pain) mecobalamin (vitamin B12) 1,000 mcg tablet,chewable 1,000 mcg PO DAILY ascorbic acid (vitamin C) [C-500] 500 mg tablet 1 g PO DAILY cholecalciferol (vitamin D3) .Route ferrous sulfate [Feosol] 325 mg (65 mg iron) tablet 325 mg PO DAILY zinc 50 mg tablet 50 mg PO DAILY doxycycline hyclate 100 mg tablet 100 mg PO BID 10 Days Qty: 20 0RF ondansetron 4 mg tablet,disintegrating 4 mg PO Q4H PRN (Reason: nausea and vomiting) 3 Days Qty: 6 0RF dicyclomine 20 mg tablet 20 mg PO TID PRN (Reason: abdominal pain) Qty: 7 0RF azithromycin [Zithromax] 250 mg tablet See Rx Instructions .ROUTE .COMPLEX Qty: 6 0RF Rx Instructions: For 250 mg dose pack: take 500 mg today (day 1), then 250 mg for 4 days (days 2-5) Instructions: Leg Pain (ED) Stand Alone Forms: Portal Instructions Referrals: Taz Coto MD [Primary Care Provider] - 1 week
== END 2023-06-12 14:06 | disposition home or self-care (01) ==
PROVIDERS: Emergency Provider Emergency Medicine
DX: M79.605 Pain in left leg (principal); Z87.891 Personal history of nicotine dependence; Z96.642 Presence of left artificial hip joint; Z79.899 Other long term (current) drug therapy; Z79.82 Long term (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 of aspirin; W19.XXXA Unspecified fall, initial encounter
CPT/HCPCS: 73502; 73562; 99284

== ENCOUNTER 2023-08-13 11:42 | Outpatient (OUT) | payer MEDICARE, SELFPAY ==
--- NOTE | 2023-08-13 11:53 | XR_ITS ---
The [address] [address] Patient Name: ELISE TABOR MRN: [id number] date: 1960 Sex: M Assigned Patient Location: [facility] Current Patient Location: [facility] Accession/Order Number: [id number] Exam Date: 08/13/2023 12:00 Report Date: 08/14/2023 01:59 At the request of: MAURO BLANCO Procedure: XR wrist LT min 3V PROCEDURE: XR wrist LT min 3V HISTORY: Wrist Arthralgia M25.539 ; chronic left wrist pain; no known injury COMPARISON: None. FINDINGS: BONES:Degenerative changes of the first carpal-metacarpal joint. No fracture, dislocation, bone lesion. SOFT TISSUES:Mild calcium deposition within the triangular fibrocartilage. EFFUSION:None visible. OTHER: Negative. XR/XR wrist LT min 3V IMPRESSION: 1. No acute bone abnormality. 2. Moderate degenerative changes of the first carpal-metacarpal joint. Electronically authenticated by: ALEYDA DYER Date: 08/14/2023 01:59
--- NOTE | 2023-08-13 11:53 | XR_ITS ---
The [address] [address] Patient Name: ELISE TABOR MRN: [id number] date: 1960 Sex: M Assigned Patient Location: [facility] Current Patient Location: .MAIN Accession/Order Number: [id number] Exam Date: 08/13/2023 12:00 Report Date: 08/14/2023 01:52 At the request of: MAURO BLANCO Procedure: XR ankle RT min 3V PROCEDURE: XR ankle RT min 3V HISTORY: Ankle Arthritis M19.079 ; right ankle pain, rolled ankle COMPARISON: None. FINDINGS: BONES:1 mm os calcifications adjacent tip of lateral malleolus. Normal spacing and smooth articular surface of the ankle joint. SOFT TISSUES:Mild soft tissue swelling. EFFUSION:None visible. OTHER: Negative. XR/XR ankle RT min 3V IMPRESSION: 1. Tiny ossification at tip of lateral malleolus; sequela of remote injury/heterotopic bone formation versus tiny cortical avulsion. No prior studies for comparison. Electronically authenticated by: ALEYDA DYER Date: 08/14/2023 01:52
--- OUTSIDE RECORDS SUMMARY | 2023-08-27 02:05 | XMS_ITS | CCD ---
Author Name Unknown Address [address] [place] [address] Organization [facility] Care Team Providers Care Hand Riveter Name Role Phone MELLISA CLARKE Unavailable Unavailab le SYSTEM, PROVIDER NOT IN Unavailable Unavaila ble YUNELIDAA, BERLIN D Unavailable Unavailable CLARKE, MELLISA STOHLER Unavailable Unavailab le SYSTEM, PROVIDER NOT IN Unavailable Unavaila ble COLLETTE VILLANUEVA Unavailable Unavailable CLARKE, MELLISA STOHLER Unavailable Unavailab le SYSTEM, PROVIDER NOT IN Unavailable Unavaila ble YUPPA, BERLIN D Unavailable Unavailable CLARKE, MELLISA STOHLER Unavailable Unavailab le SYSTEM, PROVIDER NOT IN Unavailable Unavaila ble YUPPA, BERLIN D Unavailable Unavailable CLARKE, MELLISA STOHLER Unavailable Unavailab le SYSTEM, PROVIDER NOT IN Unavailable Unavaila ble Unknown, Referring Provider Unavailable Unav Dr. Popeye Monique Referring Unavailable UNKNOWN, PCP Primary Care Unavailable Dr. URIEL GRIFFITH Attending Unavail able SAMSA ., DARNELL Admitting Unavailable [facility] Primary Care Unavailable SAMSA ., DARNELL Attending Unavailable SAMSA ., DARNELL Consulting Unavailable SAMSA ., DARNELL Admitting Unavailable [facility] Primary Care Unavailable SAMSA ., DARNELL Attending Unavailable SAMSA ., DARNELL Consulting Unavailable MELINA GARZA Consulting Unavailable [facility] Primary Care Unavailable SAMSA ., DARNELL Attending Unavailable SAMSA ., DARNELL Consulting Unavailable SAMSA ., DARNELL Admitting Unavailable [facility] Primary Care Unavailable DR ALEYDA DYER Consulting Unavailable SAMSA ., DARNELL Attending Unavailable SAMSA ., DARNELL Admitting Unavailable SAMSA ., DARNELL Consulting Unavailable Medications Completed/Discontinued Medications Medication Drug Class(es) Dates Sig (Normalized) Sig (Original) albuterol 0.833 mg/ml / ipratropium bromide 0.167 mg/ml inhalation solution (4 sources) Anticholinergic, beta2-Adrenergic Agonist Start: 02-20-2022 Ipratropium-Alb uterol 0.5-2.5 (3) MG/3ML Inhalation Solution Quantity: 1350 Refills: 0 Ordered: 20-Feb-2022 DO Start : 20-Feb-2022 Active 30 actuat fluticasone furoate 0.1 mg/actuat / umeclidinium 0.0625 mg/actuat / vilanterol 0.025 mg/actuat dry powder inhaler (4 sources) Anticholinergic, Corticosteroid, beta2-Adrenergic Agonist Start: 03-15-2022 Trelegy Ellipta 100-62.5-25 MCG/INH AEPB Quantity: 180 Refills: 0 Ordered: 15-Mar-2022 DO Start : 15-Mar-2022 Active gabapentin 300 mg oral capsule (4 sources) Anti-epileptic Agent Start: 03-30-2022 Gabapentin 300 MG Oral Capsule Quantity: 270 Refills: 0 Ordered: 30-Mar-2022 DO Start : 30-Mar-2022 Active lisinopril 5 mg oral tablet (4 sources) Angiotensin Converting Enzyme Inhibitor Start: 03-14-2022 Lisinopril 5 MG Oral Tablet Quantity: 90 Refills: 0 Ordered: 14-Mar-2022 DO Start : 14-Mar-2022 Active 24 hr metoprolol succinate 50 mg extended release oral tablet (4 sources) beta-Adrenergic Melonie Start: 03-23-2022 take 1 tablet by mouth every twenty-four hours Metoprolol Succinate ER 50 MG Oral Tablet Extended Release 24 Hour Quantity: 135 Refills: 0 Ordered: 23-Mar-2022 DO Start : 23-Mar-2022 Active omeprazole 40 mg delayed release oral capsule (4 sources) Proton Pump Inhibitor Start: 03-19-2022 Omeprazole 40 MG Oral Capsule Delayed Release Quantity: 90 Refills: 0 Ordered: 19-Mar-2022 DO Start : 19-Mar-2022 Active roflumilast 0.5 mg oral tablet (4 sources) Phosphodiesterase 4 Inhibitor Start: 03-15-2022 Daliresp 500 MCG Oral Tablet Quantity: 90 Refills: 0 Ordered: 15-Mar-2022 DO Start : 15-Mar-2022 Active Problems Active Problems Problem Classification Problem Date Documented Da te Episodic/Chronic Aortic; peripheral; and visceral artery aneurysms (4 sources) Aneurysm of thoracic aorta; Translations: [Thoracic aneurysm without mention of rupture] Chronic Cardiac dysrhythmias (5 sources) Atrial fibrillation; Translations: [Atrial fibrillation] Onset: 2 Chronic Chronic obstructive pulmonary disease and bronchiectasis (12 sources) Chronic obstructive lung disease; Translations: [Chronic airway obstruction, not elsewhere classified] Onset: 2 Chronic Coronary atherosclerosis and other heart disease (4 sources) Coronary arteriosclerosis; Translations: [Coronary atherosclerosis of unspecified type of vessel, [place] or graft] Chronic Essential hypertension (4 sources) Hypertensive disorder; Translations: [Unspecified essential hypertension] Chronic Headache, including migraine (1 source) Headache; Translations: [Headache] Onset: 8 Episodic Melanomas of skin (4 sources) H/O Malignant melanoma; Translations: [Personal history of malignant melanoma of skin] Episodic Other aftercare (4 sources) Encounter for therapeutic drug level monitoring; Translations: [ENC THERAPEUTC DRUG LEVL MONITORING] Onset: 3 Episodic Other gastrointestinal disorders (4 sources) History of gastroesophageal reflux disease; Translations: [Personal history of other diseases of digestive system] Episodic Other gastrointestinal disorders (4 sources) H/O: gastrointestinal disease; Translations: [Personal history of other diseases of digestive system] Episodic Other hematologic conditions (4 sources) History of anemia; Translations: [Personal history of diseases of blood and blood-forming organs] Episodic Spondylosis; intervertebral disc disorders; other back problems (1 source) Cervicalgia; Translations: [Cervicalgia] Onset: 8 Episodic Unclassified (1 source) Neck Pain / [id number]() Onset: 8 Unclassified (1 source) Stiffness / 343() Onset: 8 Unclassified (1 source) Back Pain / 12() Onset: 8 Unclassified (1 source) Upper Extremity Weakness / [id number]() Onset: 8 Past or Other Problems Problem Classification Problem Date Documented Da te Episodic/Chronic Screening and history of mental health and substance abuse codes (1 source) Personal history of nicotine dependence; Translations: [PERSONAL HISTORY OF NICOTINE DEPEND] Onset: 04-29-2022 Episodic Results Test Name Value Interpretation Reference Range Facil ity THEOPHYLLINEon 12-30-2022 THEOPHYLLINE 18.0 ug/mL Normal 10.0-20.0 [facility] Comment on above: Performed By: #### T ADALID #### [facility] [address] [place], [place] [address] Dr. Karen Lee THEOPHYLLINEon 12-17-2022 THEOPHYLLINE 8.3 ug/mL Critically low 10.0-20.0 The [facility] Comment on above: Performed By: #### T ADALID #### [facility] [address] [place], [place] [address] Dr. Karen Lee Blood Pressure Cuff Sizeon 0 05-29-2022 Fall risk assessment a) No falls within the last year [facility] Work Phone: Tobacco use status CPHS b) No M [facility] Work Phone: Blood Pressure Cuff Size Large [facility] Work Phone: Office Visit (Thoracic and E sophageal Surgery)on 05-29-2022 Follow-up visit Diagnoses/Problems Assessed Atrial fibrillation (427.31) (I48.91) COPD (chronic obstructive pulmonary disease) (496) (J44.9) Provider Impressions Mr. Tabor has severe COPD but he has a homogeneous distribution on chest CT and would not benefit from surgical lung volume reduction. We will speak to Dr. Peña about the neck steps. History of Present Illness Mr. Tabor is referred for consideration of LVRS. 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 He is on 3 L nasal cannula oxygen chronically. He is set to begin pulmonary rehabilitation. Review of Systems A complete Review of Systems is present in the patient's chart. Active Problems Problems Atrial fibrillation (427.31) (I48.91) CAD (coronary artery disease) (414.00) (I25.10) COPD (chronic obstructive pulmonary disease) (496) (J44.9) HTN (hypertension) (401.9) (I10) Past Medical History Problems History of anemia (V12.3) (Z86.2) History of celiac disease (V12.79) (Z87.19) History of gastroesophageal reflux (GERD) (V12.79) (Z87.19) History of malignant melanoma (V10.82) (Z85.820) History of Thoracic aortic aneurysm (TAA) (441.2) (I71.2) Surgical History Problems History of Cataract surgery History of Coronary artery bypass graft History of Hernia repair History of Hip replacement History of Shoulder replacement Family History Mother Family history of cardiac disorder (V17.49) (Z82.49) Family history of malignant neoplasm of breast (V16.3) (Z80.3) Father Family history of cardiac disorder (V17.49) (Z82.49) Social History Problems Former smoker (V15.82) (Z87.891) Social alcohol use (V49.89) (Z78.9) Uses marijuana (305.20) (F12.90) Allergies Medication No Known Drug Allergies Recorded By: Any Francois; 05/24/2022 9:50:50 AM Current Meds Medication NameInstruction Daliresp 500 MCG Oral Tablet Gabapentin 300 MG Oral Capsule Ipratropium-Albuterol 0.5-2.5 (3) MG/3ML Inhalation Solution Lisinopril 5 MG Oral Tablet Metoprolol Succinate ER 50 MG Oral Tablet Extended Release 24 Hour Omeprazole 40 MG Oral Capsule Delayed Release Trelegy Ellipta 100-62.5-25 MCG/INH Inhalation Aerosol Powder Breath Activated Vitals Vital Signs Recorded: 29May2022 02:58PM Xasuvfvmczo98.2 F Heart Rate91 Vtqmofypscg17 Oeitdyvc332 Oqcwwvobt05 Blood Pressure Cuff SizeLarge Height5 ft 7.32 in Pdicys239 lb 7 oz BMI Rujaozqvzy99.15 kg/m2 BSA Calculated2.19 Tobacco Useb) No Falls Screening (Age 18+)a) No falls within the last year O2 Snemwkpjsb51, Nasal Cannula Pain Scale7 Physical Exam The patient is well-appearing and in no acute distress. Oral and nasal mucosa are clear. The neck had no cervical or supraclavicular adenopathy. The trachea and midline is without crepitus. The thyroid had no masses. There is no JVD. The lungs were clear to auscultation, there was no dullness to percussion, no fremitus or egophony. There was good effort and excursion. The heart had a regular rate and rhythm without murmurs, rubs or gallops. The abdomen was soft, nontender and nondistended, there was no palpable hepatosplenomegaly. The extremities had no cyanosis, clubbing, or edema. The skin was warm with no rashes, and there was good refill. The mood displayed no abnormalities. Gait was normal. Results/Data I looked at his CAT scan from 04/26/2022 he has severe COPD with a homogeneous distribution Signatures Electronically signed by : Uriel Griffith MD; May 29 2022 3:24PM EST (Author) Normal [facility] Referral Letteron 022 Referral Letter Mr. Tabor is refe rred for consideration of LVRS. 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 He is on 3 L nasal cannula oxygen chronically. He is set to begin pulmonary rehabilitation. I looked at his CAT scan from 04/26/2022 he has severe COPD with a homogeneous distribution Mr. Tabor has severe COPD but he has a homogeneous distribution on chest CT and would not benefit from surgical lung volume reduction. We will speak to Dr. Peña about the neck steps. Signatures Electronically signed by : Uriel Griffith MD; May 29 2022 3:24PM EST (Author) Normal T ouchCanoP CT LUNG CANCER SCREENINGon 0 04-26-2022 CT LUNG CANCER SCREENING EXAMINATION: CT LUNG CANCER SCREENING HISTORY: Nicotine dependence ; chronic shortness of breath, COPD COMPARISON: CTA chest 01/14/2018 TECHNIQUE: Axial, Coronal, and Sagittal images were created without the administration of IV contrast material. Dose reduction techniques were achieved by using automated exposure control and/or adjustment of mA and/or kV according to patient size and/or use of iterative reconstruction technique. FINDINGS: LUNGS: Moderate emphysematous changes. Large calcified granuloma within right lung base. PLEURA: No mass, effusion, or pneumothorax. VASCULATURE: No abnormality. YADY: No mass or pathologic adenopathy. MEDIASTINUM: No mass or pathologic adenopathy. CARDIAC: Atherosclerotic coronary artery disease. No pericardial effusion. AORTA: Dilation of the ascending aorta, 4.7 cm. CHEST WALL: No mass or axillary adenopathy BONES: No bone lesion or fracture. LIMITED ABDOMEN: No suspicious findings. Limited images of the upper abdomen. OTHER: Negative. IMPRESSION: 1. LUNG SCREENING: Lung-RADS Category 1 Negative. No nodules and definitely benign nodules. Continue annual screening with LDCT in 12 months. 2. Aneurysmal dilation of the ascending aorta, not significantly changed. Electronically authenticated by: ALEYDA DYER Date: 2022-04-26 16:[address] [facility] l HEMOGLOBINon 04-26-2022 Hemoglobin (Bld) [Mass/Vol] 13.6 g/dL Critically low 14.0 -18.0 [facility] [place] Comment on above: Performed By: #### H GB #### [facility] [address] [place] [address] Dr. Karen Lee Progress Noteson 06-04-2018 Protein mass conc Encounter [facility] THERAPYProgress Notes by Jacquelyn Rivera PT at 06/04/2018 8:31 AMAuthor: HAYES Natarajanervice: (none)Author Type: Physical TherapistFiled: 06/04/2018 8:36 AMEncounter Date: 06/04/2018Status: SignedEditor: Jacquelyn Rivera PT (Physical Therapist)Physical Therapy Discharge NotePrimary Diagnosis: CervicalgiaReporting Period: 04/08/18 to 04/23/18Patient was seen for a total of 5 treatment sessions.Treatment during this episode of care consisted of evaluation, therapeutic exercise, mechanicaltraction, and manual therapy.Objective data collection as of 04/23/18.NDI: 19/50 38% disabilitySPINE:Posture: Postural Deficit: Forward Head and Rounded ShoulderCervical Strength:Cervical:??Flexion: 4+??Extension: 4+Deep Cervical Flexors:?Cranial Cervical Flexion Test Score:?? Upper Trap: 4+Goal progression as of 04/23/18.OP THERAPY GOALS:Short Term Goals: STG to be met by 04/08/18 as discussed with and agreed upon by patient:1. Patient to be compliant with progressive HEP2. Pt will report 3 days without headaches. MET3. Pt will demonstrate full cervical ROM in rotation and SB without increase in pain. NOT METLong Term Goals: LTG to be met by 06/08/18 as discussed with and agreed upon by patient:1. Patient to be independent with progressive HEP in order to allow for continued strength,flexibility, and functional training after skilled care2. Pt will decrease score on NDI to <30 % disability to indicate and increase in function andreduction in symptoms. 38% NOT MET3. Pt will report no headaches for > 7 days. PROGRESSED up to 5 days. NOT MET4. Pt will demonstrate neck and scapular muscle strength at 4+/5 to improve upright posture. METGoals could not be further addressed due to patient not returning to therapy. Please refer toinitial evaluation and/or last progress report for further data. Pt self discharged with last txsession with [employer].Patient is being discharged due to not returning to therapy and/or Plan of Care being .Recommend patient continue with HEP previously instructed on during therapy as appropriate.Patient may be reinstated in therapy upon new evaluation and orders from the physician.Thank You. [facility] Progress Noteson 04-23-2018 Protein mass conc [facility] THERAPYProgress Notes by Berlin Valle PTA at 04/23/2018 9:00 AMAuthor: Berlin Valle PTAService: (none)Author Type: Physical Therapy AssistantFiled: 04/23/2018 9:46 AMEncounter Date: 04/23/2018Status: SignedEditor: Berlin Valle PTA (Gluing Machine Feeder)Physical Therapy Treatment NoteVisit Number: 5Encounter diagnosis:ICD-10-CM1.FmqzqimwmpjL76.22.Headache in back of opinK70Qfpwbyb Medical Diagnosis:SUBJECTIVE: Pt requests today being his last PT appt due to decreased MITCHELL symptoms.Compliance with HEP: Pt states being compliant with HEP.Patient reported improvements: Pt states he hasn't had a MITCHELL in the past 4-5 days.Patient reported continued functional deficits: Pt reports with cont'd neck pain and states thatwill never go away .Pain Location: NeckPain Score: 5/10OBJECTIVE / BODY FUNCTIONS AND PERFORMANCE SKILLS:SPINE:Posture: Postural Deficit: Forward Head and Rounded ShoulderCervical Strength:Cervical:Flexion: 4+Extension: 4+Deep Cervical Flexors:Cranial Cervical Flexion Test Score: Upper Trap: 4+Today's treatment: Therapeutic activities To fill out and review NDI, HEP progression/review, andMMT of cervical spine.Traction Pt pt request for cont'd relief of symptoms.Onset Date: 2 weeks agoSurgical Date: NAPlan of care due:06/08/18Progress Report due 05/09/18Insurance(s): Hum[employer] medicareAuthorized visits: 30Precautions: NA.Date: 04/08/18Visit: 1 /Date: 04/10/18Visit: 2 /Date: 04/16/18Visit: 3 /Date: 04/21/18Visit: 4 /Date: 04/23/18Visit: 5 /PT EVALUBE, L1, x6'UBE, L1, x6'UBE, L1, x6'Suboccipital releaseSTM to paraspinalsDoorway stretch 1x30'' (d/c due to shoulder pain)UT stretch 3x15 BManual- Cont/relax for neck rotation- STM to scalenes- G2-3 MWM cervical bilateral glides with SB- Suboccipital releaseMMT and NDI form filled out, HEP review and progression.Manual UT stretch x2 30'Manual Levator stretch x2 30'Suboccipital releaseSTM to paraspinalsLevator scap stretch 3x15 BHEP review of chin tucks and discussion onincreasing theraband resistance prnManual UT stretch 3x 30'Green t-band- Scap retract x15- B UE ext c10Ngml tucks x15GTB rows [id number]- STM along c-spine paraspinals, UT, and levator scap regions- Suboccipital releaseHEP: chin tuck, UT and LS stretch, scap squeeze.Mechanical traction 18 -10 intermittent 10 minutes. Mechanical traction 25 -18 intermittent 15minutes. Modalities- Traction 25/18# x15'Modalities- Traction 25/18# x15'Education completed: Education completed with patient , Demonstration(s) completed and Patienteducated regarding their diagnosis Instructed Pt to increase reps and resistance as tolerated forHEP progression toward goals. Instructed pt to perform all ex's within pain-free ranges.Response to treatment: Pt. Tolerated tx well without c/o pain or symptom increase, presenting withincreased cervical strength and good understanding of HEP progression with expected outcomes.New Category to Report? (if previous visit, category was discharged):NoContinued functional deficits in activities and participation: Pt cont's to lack fullshoulder/cervical ROM, strength, and functional mobility necessary for performing ADL's withoutrestriction or limitations. Pt's primary limitations are due to B shoulder symptoms/deficits.OP THERAPY GOALS:Short Term Goals: STG to be met by 04/08/18 as discussed with and agreed upon by patient:1. Patient to be compliant with progressive HEP2. Pt will report 3 days without headaches.3. Pt will demonstrate full cervical ROM in rotation and SB without increase in pain.Sen[facility] Living Goals: LTG to be met by 06/08/18 as discussed with and agreed upon by patient:1. Patient to be independent with progressive HEP in order to allow for continued strength,flexibility, and functional training after skilled care2. Pt will decrease score on NDI to <30 % disability to indicate and increase in function andreduction in symptoms.3. Pt will report no headaches for > 7 days.4. Pt will demonstrate neck and scapular muscle strength at 4+/5 to improve upright posture.PLAN: (As discussed and agreed upon with the patient)Pt request today being his last scheduled appt due to having decreasing MITCHELL symptoms and is lookinginto getting his shoulders treated by PCP.Time IN: 8:55Time OUT: 9:20Timed Code Treatment Time: 10Total Treatment Time: 25 PT Treatment Normal [facility] Progress Noteson 04-21-2018 Protein mass conc Encounter [facility] THERAPYProgress Notes by Berlin Valle PTA at 04/21/2018 9:00 AMAuthor: Berlin Valle PTAService: (none)Author Type: Physical Therapy AssistantFiled: 04/21/2018 9:46 AMEncounter Date: 04/21/2018Status: SignedEditor: Berlin Valle PTA (Gluing Machine Feeder)Physical Therapy Treatment NoteVisit Number: 4Encounter diagnosis:ICD-10-CM1.QpaemxagdnwY86.22.Headache in back of uognV53Cqnxenq Medical Diagnosis: CervicalgiaSUBJECTIVE:Compliance with HEP: Pt states being compliant with HEP.Patient reported improvements: Pt reports not having a headache for the past 2 days.Patient reported continued functional deficits: Pt cont's to have constant neck pain and haslimited neck motions at times with an audible pop .Pain Location: NeckPain Score: 5-7/10OBJECTIVE / BODY FUNCTIONS AND PERFORMANCE SKILLS:SPINE:Cervical ROM:ACTIVEPASSIVERotation Right:68Rotation Left:68 post manualSide Bending Right:27Side Bending Left:27Today's treatment: Therapeutic exercise (as per flowsheet) range of motion and strength Post warmup on UBE to increase blood flow, reviewed HEP for technique and instruction for progression inreps and resistance prn. and Manual Therapy To improve ROM, joint mobility/nutrition, tissuepliability, and relieve symptoms.Onset Date: 2 weeks agoSurgical Date: NAPlan of care due:06/08/18Progress Report due 05/09/18Insurance(s): Hum[employer] medicareAuthorized visits: 30Precautions: NA.Date: 04/08/18Visit: 1 /Date: 04/10/18Visit: 2 /Date: 04/16/18Visit: 3 /Date: 04/21/18Visit: 4 /Date:Visit: /PT EVALUBE, L1, x6'UBE, L1, x6'UBE, L1, x6'Suboccipital releaseSTM to paraspinalsDoorway stretch 1x30'' (d/c due to shoulder pain)UT stretch 3x15 BManual- Cont/relax for neck rotation- STM to scalenes- G2-3 MWM cervical bilateral glides with SB- Suboccipital releasePt is slightly resistant to therex, expresses his opinions about onlyfocusing on txn, but agreed to manual therapy/cervical strengtheningManual UT stretch x2 30'Manual Levator stretch x2 30'Suboccipital releaseSTM to paraspinalsLevator scap stretch 3x15 BHEP review of chin tucks and discussion onincreasing theraband resistance prnManual UT stretch 3x 30'Green t-band- Scap retract x15- B UE ext n30Lvpv tucks x15GTB rows [id number]- STM along c-spine paraspinals, UT, and levator scap regions- Suboccipital releaseHEP: chin tuck, UT and LS stretch, scap squeeze.Mechanical traction 18 -10 intermittent 10 minutes. Mechanical traction 25 -18 intermittent 15minutes. Modalities- Traction 25/18# x15'Modalities- Traction 25/18# x15'Education completed: Education completed with patient and Demonstration(s) completed InstructedPt to increase reps and resistance as tolerated for HEP progression toward goals.Response to treatment: Pt. Tolerated tx well without c/o pain or symptom increase, presentingwith good demo of ex's performed this tx post min cues to improve technique.New Category to Report? (if previous visit, category was discharged):NoContinued functional deficits in activities and participation: Pt cont's to report withlimitations in neck mobility due to pain and joint stiffness, resulting in headaches; symptoms aredecreasing.OP THERAPY GOALS:Short Term Goals: STG to be met by 04/08/18 as discussed with and agreed upon by patient:1. Patient to be compliant with progressive HEP2. Pt will report 3 days without headaches.3. Pt will demonstrate full cervical ROM in rotation and SB without increase in pain.Brick Wheeler Goals: LTG to be met by 06/08/18 as discussed with and agreed upon by patient:1. Patient to be independent with progressive HEP in order to allow for continued strength,flexibility, and functional training after skilled care2. Pt will decrease score on NDI to <30 % disability to indicate and increase in function andreduction in symptoms.3. Pt will report no headaches for > 7 days.4. Pt will demonstrate neck and scapular muscle strength at 4+/5 to improve upright posture.PLAN: (As discussed and agreed upon with the patient)Pt is to con't per POC and current HEP to progress pt toward PT goals.Time IN: 8:58Time OUT: 9:30Timed Code Treatment Time: 17Total Treatment Time: 32 PT Treatment [facility] Progress Noteson 04-16-2018 Protein mass conc Encounter [facility] THERAPYProgress Notes by Collette Villanueva PTA at 04/16/2018 9:00 AMAuthor: Collette Villanueva PTAService: (none)Author Type: Physical Therapy AssistantFiled: 04/16/2018 12:11 PMEncounter Date: 04/16/2018Status: SignedEditor: Collette Villanueva PTA (Gluing Machine Feeder)Physical Therapy Treatment NoteVisit Number: 3Encounter diagnosis:ICD-10-CM1.EingnqrnvatU53.22.Heada louis in back of [id number] Medical Diagnosis: CervicalgiaSUBJECTIVE:Compliance with HEP: Patient reports compliance with HEP.Patient reported improvements: Patient reports a decrease in headache frequency and intensity.Patient reported continued functional deficits: Patient continues to experience constant neck painwith headaches that occur approximately every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
== END 2023-08-13 11:43 | disposition home or self-care (01) ==
LOC: RAD 11:45
PROVIDERS: PCP Nurse Practitioner Primary Care; Visit Provider Nurse Practitioner Primary Care
DX: M25.539 Pain in unspecified wrist (principal); M19.079 Primary osteoarthritis, unspecified ankle and foot
CPT/HCPCS: 73110; 73610

== ENCOUNTER 2023-08-14 01:32 | Emergency (ER) | payer MEDICARE, SELFPAY ==
[2023-08-14 01:36] VITALS: BP 180/100; PULSE 78; RESP 18; TEMP 36.3; O2SAT 95
[2023-08-14 01:52] VITALS: O2SAT 95
--- NOTE | 2023-08-14 02:00 | ED_ITS ---
HPI - General Adult General Chief complaint: Upper Respiratory Infection Stated complaint: SORE THROAT Time Seen by Provider: 08/14/23 01:40 Source: patient Mode of arrival: walk-in Limitations: no limitations History of Present Illness HPI narrative: Around 4pm this afternoon the patient developed sore throat and left ear pain. Since then his throat has been raw and feeling swollen . He also admits to mild cough. Around 830pm he developed left sided headache, similar to his prior migraines. He took Tylenol around 8pm for the sore throat. He took a triptan for his headache around midnight. No vomiting or diarrhea. Uncertain about potential ill exposures. Related Data Home Medications Medication Instructions Recorded Confirmed ascorbic acid (vitamin C) 500 mg 1 g PO DAILY 04/01/23 08/14/23 tablet (C-500) aspirin 81 mg tablet,delayed 81 mg PO DAILY 04/01/23 08/14/23 release atorvastatin 40 mg tablet 40 mg PO DAILY 04/01/23 08/14/23 cholecalciferol (vitamin D3) .Route 04/01/23 ferrous sulfate 325 mg (65 mg 325 mg PO DAILY 04/01/23 08/14/23 iron) tablet (Feosol) fluticasone fur. 200 mcg-umeclid 1 inh inhalation Q24H 04/01/23 08/14/23 62.5 mcg-vilant 25 mcg inhalat.powder (Trelegy Ellipta) ipratropium 0.5 mg-albuterol 3 mg 3 ml inhalation Q8H PRN shortness 04/01/23 08/14/23 (2.5 mg base)/3 mL nebulization of breath soln lisinopril 5 mg tablet 5 mg PO DAILY 04/01/23 08/14/23 mecobalamin (vitamin B12) 1,000 1,000 mcg PO DAILY 04/01/23 08/14/23 mcg chewable tablet metoprolol succinate 50 mg 100 mg PO DAILY 04/01/23 08/14/23 tablet,extended release 24 hr naproxen 250 mg tablet 220 mg PO BID PRN pain 04/01/23 08/14/23 nitroglycerin 0.4 mg sublingual 0.4 mg sublingual Q5M PRN chest 04/01/23 08/14/23 tablet pain omeprazole 40 mg capsule,delayed 40 mg PO DAILY 04/01/23 08/14/23 release roflumilast 500 mcg tablet 500 mcg PO DAILY 04/01/23 08/14/23 testosterone 50 mg/5 gram (1 %) 100 mg transdermal DAILY 04/01/23 08/14/23 transdermal gel theophylline 400 mg 400 mg PO Q24H 04/01/23 08/14/23 tablet,extended release 24 hr zinc 50 mg tablet 50 mg PO DAILY 04/01/23 08/14/23 apixaban 5 mg tablet (Eliquis) mg 08/14/23 gabapentin 400 mg capsule mg 08/14/23 gabapentin 600 mg tablet mg 08/14/23 meloxicam 15 mg tablet mg 08/14/23 methylprednisolone 4 mg tablets in mg 08/14/23 a dose pack nystatin 100,000 unit/mL oral 08/14/23 suspension zonisamide 25 mg capsule mg PO 08/14/23 Previous Rx's Medication Instructions Recorded acetaminophen 300 mg-codeine 30 mg 1 tab PO Q6H PRN pain 5 days #20 06/12/23 tablet tabs bmx solution 10 ml PO Q8H PRN sore throat 10 08/14/23 days #150 mL clindamycin HCl 150 mg capsule 450 mg (3 x 150 mg) PO TID 7 days 08/14/23 #63 caps Allergies Allergy/AdvReac Type Severity Reaction Status Date / Time No Known Drug Allergies Allergy Verified 08/14/23 01:41 [facility] Social History Smoking status: Never smoker Exam Narrative Exam Narrative: Nurses notes and vital signs reviewed and patient is not hypoxic. afebrile - temp is low at 97.4F General: Well-appearing and in no apparent distress. Skin: Warm, dry, no pallor noted. No rash. Head: Normocephalic, atraumatic. Neck: Supple, non-tender. no meningismus. No cervical lymphadenopathy. Eye: Pupils are equal, round and EOMI. No scleral icterus. Ears, Nose, Mouth, and Throat: TM are clear, no nasal mucosal hypertrophy. Or al mucosa is moist, moderate posterior oropharynx erythema with swelling but no exudate, uvula is mid-line Cardiovascular: Regular Rate and Rhythm without murmur, gallop or rub. Respiratory: No accessory muscle use or respiratory distress. Lungs are clear to auscultation, no wheezing, rales or rhonchi Musculoskeletal: normal ROM, no calf or popliteal tenderness, no lower extremity edema/swelling GI: Abdomen is soft, non-distended. Normal bowel sounds. No tenderness to palpation. No rebound, guarding, or rigidity noted. Neurological: A&O x4. No cranial nerve dysfunction observed. No truncal ataxia. Moves all extremities. Sensation intact. Psychiatric: Cooperative and interactive. Normal mood and affect. Constitutional Vital Signs, click to edit/add: Last Vital Signs Temp 97.4 F L 08/14/23 01:36 Pulse 78 08/14/23 01:36 Resp 18 08/14/23 01:36 BP 180/100 H 08/14/23 01:36 Pulse Ox 95 08/14/23 01:52 O2 Del Method Nasal Cannula 08/14/23 01:52 O2 Flow Rate 3 08/14/23 01:52 Course Vital Signs Vital signs: Vital Signs Temperature 97.4 F L 08/14/23 01:36 Pulse Rate 78 08/14/23 01:36 Respiratory Rate 18 08/14/23 01:36 Blood Pressure 180/100 H 08/14/23 01:36 Pulse Oximetry 95 08/14/23 01:36 Oxygen Delivery Method Nasal Cannula 08/14/23 01:36 Oxygen Delivery Flow Rate 3 08/14/23 01:36 Temperature 97.4 F L 08/14/23 01:36 Pulse Rate 78 08/14/23 01:36 Respiratory Rate 18 08/14/23 01:36 Blood Pressure 180/100 H 08/14/23 01:36 Pulse Oximetry 95 08/14/23 01:52 Oxygen Delivery Method Nasal Cannula 08/14/23 01:52 Oxygen Delivery Flow Rate 3 08/14/23 01:52 Medical Decision Making [facility] Narrative Medical decision making narrative: swabs for strep and covid were negative. He was given IM Toradol, IM Solumedrol, oral zofran and oral Benadryl in the ED to treat his symptoms. He was discharged home with prescriptions for clindamycin and BMX solution for his tonsillitis. PCP follow up recommended or ED return if he worsens. Lab Data Labs: Lab Results 08/14/23 Range/Units 01:50 SARS-CoV-2 (PCR) Negative (NEGATIVE) Streptococcus Screen Negative Discharge Plan Discharge Chief Complaint: Upper Respiratory Infection Clinical Impression: Acute tonsillitis, Migraine Patient Disposition: Home, Self-Care Time of Disposition Decision: 02:31 Prescriptions / Home Meds: New clindamycin HCl 150 mg capsule 450 mg PO TID 7 Days Qty: 63 0RF bmx solution 10 ml PO Q8H PRN (Reason: sore throat) 10 Days Qty: 150 0RF Rx Instructions: 50mL liquid benadryl, 50mL maalox, 50mL lidocaine mixed; 10mL gargled and swallowed q8hr prn sore throat No Action atorvastatin 40 mg tablet 40 mg PO DAILY ipratropium-albuterol 0.5 mg-3 mg(2.5 mg base)/3 mL solution for nebulization 3 ml INHALATION Q8H PRN (Reason: shortness of breath) lisinopril 5 mg tablet 5 mg PO DAILY metoprolol succinate 50 mg tablet extended release 24 hr 100 mg PO DAILY omeprazole 40 mg capsule,delayed release(DR/EC) 40 mg PO DAILY theophylline 400 mg tablet extended release 24 hr 400 mg PO Q24H roflumilast 500 mcg tablet 500 mcg PO DAILY Trelegy Ellipta 200-62.5-25 mcg blister with device 1 inh INHALATION Q24H aspirin 81 mg tablet,delayed release (DR/EC) 81 mg PO DAILY nitroglycerin 0.4 mg tablet, sublingual 0.4 mg sublingual Q5M PRN (Reason: chest pain) testosterone 50 mg/5 gram (1 %) gel 100 mg transdermal DAILY Patient Comments: naproxen 250 mg tablet 220 mg PO BID PRN (Reason: pain) mecobalamin (vitamin B12) 1,000 mcg tablet,chewable 1,000 mcg PO DAILY ascorbic acid (vitamin C) [C-500] 500 mg tablet 1 g PO DAILY cholecalciferol (vitamin D3) .Route ferrous sulfate [Feosol] 325 mg (65 mg iron) tablet 325 mg PO DAILY zinc 50 mg tablet 50 mg PO DAILY acetaminophen-codeine 300-30 mg tablet 1 tab PO Q6H PRN (Reason: pain) 5 Days Qty: 20 0RF nystatin 100,000 unit/mL suspension gabapentin 600 mg tablet meloxicam 15 mg tablet gabapentin 400 mg capsule methylprednisolone 4 mg tablets,dose pack zonisamide 25 mg capsule PO Eliquis 5 mg tablet Instructions: Migraine Headache (ED), Tonsillitis (ED) Stand Alone Forms: Portal Instructions Referrals: MAURO BLANCO APRN [Primary Care Provider] - 1 week
[2023-08-14 02:16] LABS: Internal Control Within Normal Limits; Strep A Antigen Screen Negative
[2023-08-14 02:22] LABS: SARS-CoV-2 Ag NEGATIVE (NEGATIVE)
[2023-08-14] MEDS: ONDANSETRON 4 MG RAPDIS TABLET SL (02:30)
[2023-08-14] MEDS: DIPHENHYDRAMINE HCL 25 MG CAPSULE PO (02:30)
[2023-08-14] MEDS: KETOROLAC TROMETHAMINE 60 MG/2 ML VIAL IM (02:31)
[2023-08-14] MEDS: METHYLPREDNISOLONE SOD SUCC PF 125 MG/2 ML VIAL IM (02:32)
[2023-08-15 12:36] LABS: SARS-CoV-2 NAA INCONCLUSIVE (NOT DETECTE)
== END 2023-08-14 02:38 | disposition home or self-care (01) ==
PROVIDERS: Emergency Provider Emergency Medicine; PCP Nurse Practitioner Primary Care
DX: J03.90 Acute tonsillitis, unspecified (principal); G43.909 Migraine, unspecified, not intractable, without status migrainosus; Z79.82 Long term (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 of aspirin; Z20.822 Contact with and (suspected) exposure to COVID-19
CPT/HCPCS: 87070; 87635; 87811; 87880; 96372; 99284; J2930

== ENCOUNTER 2023-09-03 12:26 | Outpatient (OUT) | payer MEDICARE, SELFPAY ==
[2023-09-03 14:43] LABS: Alanine Aminotransferase 36 U/L (16-63); Albumin Globulin Ratio 0.9; Albumin Level 3.2 g/dL (3.4-5.0); Alkaline Phosphatase 72 U/L (46-116); Anion Gap 8.1; Aspartate Amino Transferase 19 U/L (15-37); BUN Creatinine Ratio 18.6; Bilirubin Total 0.4 mg/dL (0.2-1.0); Calcium 9.5 mg/dL (8.5-10.1); Carbon Dioxide 33.2 mmol/L (21.0-32.0); Chloride 106 mmol/L (98-107); Estimated GFR (African America >60 (>=60); Estimated GFR (Non-African Ame >60 (>=60); Globulin 3.4 g/dL; Glucose 121 mg/dL (74-106); Potassium 4.3 mmol/L (3.5-5.1); Sodium 143 mmol/L (136-145); Thyroid Stimulating Hormone 0.454 uIU/mL (0.358-3.740); Total Protein 6.6 g/dL (6.4-8.2)
== END 2023-09-03 12:27 | disposition home or self-care (01) ==
LOC: LAB 12:27
PROVIDERS: PCP Nurse Practitioner Primary Care
DX: R25.1 Tremor, unspecified (principal)
CPT/HCPCS: 36415; 80053; 84443

== ENCOUNTER 2023-09-29 11:07 | Outpatient (OUT) | payer MEDICARE, SELFPAY ==
--- OUTSIDE RECORDS SUMMARY | 2023-09-29 11:29 | XMS_ITS | CCD ---
Author Name Unknown Address [address] [place] [address] Organization [facility] Care Team Providers Care Explosive Man Name Role Phone MELLISA CLARKE Unavailable Unavailab [...] Unavail able SAMSA ., DARNELL Admitting Unavailable [facility] Primary Care Unavailable SAMSA ., DARNELL Attending Unavailable SAMSA ., DARNELL Consulting Unavailable SAMSA ., DARNELL Admitting Unavailable [facility] Primary Care Unavailable SAMSA ., DARNELL Attending Unavailable SAMSA ., DARNELL Consulting Unavailable MELINA GARZA Consulting Unavailable [facility] Primary Care Unavailable SAMSA ., DARNELL Attending Unavailable SAMSA ., DARNELL Consulting Unavailable SAMSA ., DARNELL Admitting Unavailable [facility] Primary Care Unavailable DR ALEYDA DYER Consulting [...] [Coronary atherosclerosis of unspecified type of vessel, [place] or graft] Chronic Essential hypertension (4 sources) [...] Episodic Unclassified (1 source) Neck Pain / [id number]() Onset: 8 Unclassified (1 source) Stiffness / 343() Onset: 8 Unclassified (1 source) Back Pain / 12() Onset: 8 Unclassified (1 source) Upper Extremity Weakness / [id number]() Onset: 8 Past or Other Problems Problem Classification Problem Date Documented Da te Episodic/Chronic Screening and history of mental health and substance abuse codes (1 source) Personal history of nicotine dependence; Translations: [PERSONAL HISTORY OF NICOTINE DEPEND] Onset: 04-29-2022 Episodic Results Test Name Value Interpretation Reference Range Facility THEOPHYLLINEon 12-30-2022 THEOPHYLLINE 18.0 ug/mL Normal 10.0-20.0 [facility] Comment on above: Performed By: #### T ADALID #### [facility] [address] [place], [place] [address] Dr. Karen Lee THEOPHYLLINEon 12-17-2022 THEOPHYLLINE 8.3 ug/mL Critically low 10.0-20.0 [facility] Comment on above: Performed By: #### T ADALID #### [facility] [address] [place], [place] [address] Dr. Karen Lee Blood Pressure Cuff Sizeon 0 05-29-2022 Fall risk assessment a) No falls within the last year [facility] Work Phone: Tobacco use status CPHS b) No [facility] Work Phone: Blood Pressure Cuff Size Large [facility] Work Phone: Office Visit (Thoracic and E [...] Activated Vitals Vital Signs Recorded: 29May2022 02:58PM Muofternjew20.2 F Heart Rate91 Bvymdlvzztp77 Gcghkkxz580 Jqdawzrvv22 Blood Pressure Cuff SizeLarge Height5 ft 7.32 in Mcweux499 lb 7 oz BMI Hhdjskvgpk06.15 kg/m2 BSA Calculated2.19 Tobacco Useb) No Falls Screening (Age 18+)a) No falls within the last year O2 Zvwfoppexk31, Nasal Cannula Pain Scale7 Physical Exam The [...] May 29 2022 3:24PM EST (Author) Normal [facility] Referral Letteron 022 Referral Letter Mr. Tabor is referred for consideration of [...] May 29 2022 3:24PM EST (Author) Normal [facility] CT LUNG CANCER SCREENINGon 0 04-26-2022 CT [...] ALEYDA DYER Date: 2022-04-26 16:20 Normal [facility] HEMOGLOBINon 04-26-2022 Hemoglobin (Bld) [Mass/Vol] 13.6 g/dL Critically low 14.0-18.[address] [facility] Comment on above: Performed By: #### H GB #### [facility] [address] [place] [address] [address] Karen Lee Progress Noteson 06-04-2018 Protein mass conc [facility] Notes by Jacquelyn Rivera PT at [...] Pt self discharged with last txsession with TRANSITIONAL CARE LIAISON.Patient is being discharged due to not returning to therapy and/or Plan of Care being .Recommend patient continue with HEP previously instructed on during therapy as appropriate.Patient may be reinstated in therapy upon new evaluation and orders from the physician.Thank You. [facility] Progress Noteson 04-23-2018 Protein mass conc Encounter Department : [facility]Progress Notes by Berlin Valle PTA at 04/23/2018 9:00 AMAuthor: Berlin Valle PTAService: (none)Author Type: Physical Therapy AssistantFiled: 04/23/2018 9:46 AMEncounter Date: 04/23/2018Status: SignedEditor: Berlin Valle PTA (Building Maintenance Worker)Physical Therapy Treatment NoteVisit Number: 5Encounter diagnosis:ICD-10-CM1.Cervical giaM54.22.Headache in back of [id number] Medical Diagnosis:SUBJECTIVE: Pt requests today being his [...] t-band- Scap retract x15- B UE ext x98Gwqq tucks x15GTB rows 6c63Nkbgeb- STM along c-spine paraspinals, UT, and levator [...] in rotation and SB without increase in pain.Correction Goals: LTG to be met by 06/08/18 [...] Time: 10Total Treatment Time: 25 PT Treatment [facility] Progress Noteson 04-21-2018 Protein mass conc [facility]Progress Notes by Berlin Valle PTA at 04/21/2018 9:00 AMAuthor: Berlin Valle PTAService: (none)Author Type: Physical Therapy AssistantFiled: 04/21/2018 9:46 AMEncounter Date: 04/21/2018Status: SignedEditor: Berlin Valle PTA (Building Maintenance Worker)Physical Therapy Treatment NoteVisit Number: 4Encounter diagnosis:ICD-10-CM1.Cervical giaM54.22.Headache in back of lbrzO68Dijrdie Medical Diagnosis: CervicalgiaSUBJECTIVE:Complia nce with HEP: Pt states being compliant with [...] t-band- Scap retract x15- B UE ext i30Qlvg tucks x15GTB rows 4i96Pnjhgr- STM along c-spine paraspinals, UT, and levator scap regions- Suboccipital releaseHEP: chin tuck, UT and LS stretch, scap squeeze.Mechanical traction 18 -10 intermittent 10 minutes. Mechanical traction 25 -18 intermittent 15minutes. Modalities- Traction # x15'Modalities- Traction # x15'Education completed: Education completed with patient and [...] in rotation and SB without increase in pain.Commissions Analyst Goals: LTG to be met by 06/08/18 [...] Time: 17Total Treatment Time: 32 PT Treatment [facility] Progress Noteson 04-16-2018 Protein mass conc [facility] Notes by Collette Villanueva PTA at 04/16/2018 9:00 AMAuthor: Collette Villanueva PTAService: (none)Author Type: Physical Therapy AssistantFiled: 04/16/2018 12:11 PMEncounter Date: 04/16/2018Status: SignedEditor: Collette Villanuvea PTA (Building Maintenance Worker)Physical Therapy Treatment NoteVisit Number: 3Encounter diagnosis:ICD-10-CM1.Cervical giaM54.22.Headache in back of mlprR30Utuxfis Medical Diagnosis: CervicalgiaSUBJECTIVE:Complia nce with HEP: Patient reports compliance with HEP.Patient [...] scap regions followed by suboccipital release for pain/symptomreduction.Tractio n - Cervical traction performed at 25/18# for [...] t-band- Scap retract x15- B UE ext y55Neac tucks x15GTB rows 2c15Plurqs- STM along c-spine paraspinals, UT, and levator [...] in rotation and SB without increase in pain.Correction Goals: LTG to be met by 06/08/18 [...] Time: 28Total Treatment Time: 43 PT Treatment [facility] Progress Noteson 04-10-2018 Protein mass conc [facility]Progress Notes by Berlin Valle PTA at 04/10/2018 9:00 AMAuthor: Berlin Valle PTAService: (none)Author Type: Physical Therapy AssistantFiled: 04/10/2018 10:21 AMEncounter Date: 04/10/2018Status: SignedEditor: Berlin Valle PTA (Building Maintenance Worker)Physical Therapy Treatment NoteVisit Number: 2Encounter diagnosis:ICD-10-CM1.Cervical giaM54.22.Headache in back of gnprJ74Ortlvay Medical Diagnosis: CervicalgiaSUBJECTIVE:Complia nce with HEP: Pt reports compliant with HEP.Patient [...] UT stretch 3x 30'Chin tucks x15GTB rows 9d30NOK: chin tuck, UT and LS stretch, scap [...] Pt reports with decreased pain post tx, 10.New Category to Report? (if previous visit, category [...] in rotation and SB without increase in pain.Commissions Analyst Goals: LTG to be met by 06/08/18 [...] Time: 30Total Treatment Time: 45 PT Treatment [facility] Progress Noteson 04-08-2018 Protein mass conc [facility]Progress Notes by Jacquelyn Rivera PT at 04/08/2018 1:45 PMAuthor: HAYES Natarajanervice: (none)Author Type: Physical TherapistFiled: 04/08/2018 6:47 PMEncounter Date: 04/08/2018Status: SignedEditor: Jacquelyn Rivera PT (Physical Therapist)Physical Therapy EvaluationEncounter diagnosis:ICD-10-CM1.Cervical giaM54.22.Headache in back of pcgtM02Rnuhzjpza provider: Mellisa Clarke,*Primary Medical Diagnosis: CervicalgiaPlan of Care/Certification Interval: 04/08/18 to 06/08/18UBJECTIVE:Demographic s/Patient History and Occupational Profile: Onset Date: Longstanding [...] Home: 15Prior Level of Functioning: Level of Mower: [facility] Level of Functioning: Outcome Score: NDI (26 raw score NDI, 52% disability) Functional deficits: reports no functional deficits, able to do everything just withincreased pain. Level of Mower: Modified IndependentSleep Status/Sleep Hygiene: Preferred Sleep Position: SupineRed Flags:NonePain Location: neckPain Score: 7/10 most people probably a 10 but i'm used to it OBJECTIVE / BODY FUNCTIONS AND PERFORMANCE SKILLS:SPINE:Posture: Postural Deficit: Scapulae Position and Forward Head (protracted and elevated) Sitting Posture: KyphoticCervical ROM:ACTIVEPASSIVEFlexion:50Ex tension:50Rotation Right:75Rotation Left:65Side Bending Right:45Side Bending Left:30 Upper Extremity: Impaired (No radicular symptoms but B rotator cuff impairments. )Cervical Strength:Cervical:Flexion: 4-Extension: 4-Deep Cervical Flexors:Cranial Cervical Flexion Test Score: Extensors: 4- Upper Trap: 4Special Tests: Cervical: Distraction positive Spurling's Test negativeMMT: RightLeftShoulder:Flexion:4+4 +Extension:4+4+Abduction:4+4+ Elbow:Flexion:55Extension: 55Today's treatment: Initial evaluation for neck pain [...] codes)[id number] Mobility Current Status; Severity: CK 40-59% [id number] Mobility Goal Status; Severity: CI 1-19% impairedOutcome measure(s)/Test(s) used/Result(s): 52% disability on NDI.Clinical Judgment: Moderate to severe impairement, decreased neck ROM and strength, tenderness totrigger points moderateNew Category to Hawqto-Mf-Lzom only?:NoEvaluation Breakdown DescriptionPatient HistoryComorbiditiesEnvironme ntal/Personal factorsLearning/CognitionDome stic life*Issue must impact why you are treating [...] in rotation and SB without increase in pain.Correction Goals: LTG to be met by 06/08/18 [...] Time: 60Time in: 1:44Time Out: 2:45 PT Eval [facility] Vital Signs Date Time Vital Sign Value Performing Clinician Facility 05-29-2022 14:58-0400 Body height 170.99 cm Referring [...] Care Provider Facility Start: 12-30-2022 End: 12-31-2022 [facility] DAR[facility]LL [facility] Facility: Start: 12-17-2022 End: 12-18-2022 ambulatory DARNELL ALICEA . Facility: Start: 06-17-2022 AUDIT Referring Prov ider Unknown [facility] [facility] Work Phone: Start: 05-29-2022 Office outpatient ne w 45 minutes Referring Provider Unknown [facility] Work Phone: Start: 05-29-[address] Popeye Heredia lity:[facility] Start: 05-21-2022 End: 08-14-2022 ambulatory [facility] Facility: Start: 04-26-2022 End: 04-27-2022 [facility] Facility: Start: 04-23-2018 End: 04-23-2018 Patient encounter BERLIN Demacro [facility] Start: 04-21-2018 End: 04-21-2018 Patient encounter BER[place] Demarco [facility] Start: 04-16-2018 End: 04-16-2018 Patient encounter COLLETTE German VILLANUEVA [facility] Start: 04-10-2018 End: 04-10-2018 Patient encounter [place] Demarco [facility] Start: 04-08-2018 End: 04-08-2018 Patient encounter MELLISA CLARKE [facility] Patient encounter status Referring Provider Unknown [facility] [facility] Work Phone: Procedures Date Procedure Procedure Detail Performing Clinician Cataract surgery Referring P ruthie Unknown Coronary artery bypass graft Referring Provider Unknown Hernia repair Referring Prov ider Unknown Prosthetic arthroplasty of shoulder Referring Provider Unknown Total replacement of hip Ref erring Provider Unknown Payers Date Payer Category Payer Unknown [id number] 2.. [id number] 1960 Unknown [id number] [id number] [id number] 1960 Unknown [id number] [id number] [id number] 1960 Unknown [id number] [id number] [id number] 1960 Unknown [id number] 2.16.84 [id number] 1959 Medicare [id number] Unknown Social History Date Type Detail Facility Social alcohol use Social alcohol use - [facility] Work Phone: History of Present illness [...] [facility] is [facility]: History of Present illness [...] He is set to begin pulmonary rehabilitation. [facility] Work Phone: History of Present illness Narrative [...] He is set to begin pulmonary rehabilitation. [facility] Work Phone: Summary Purpose Family History No [...] section and content) DATE CREATED AUTHOR 07/04/2018 [facility] DATE CREATED AUTHOR AUTHOR'S ORGANIZ ATION 06/09/2022 [facility] DATE CREATED AUTHOR AUTHOR'S ORGANIZ ATION 06/09/2022 [facility] DATE CREATED AUTHOR AUTHOR'S ORGANIZ ATION 02/14/2023 [facility] FOR RECORDS PERTAINING TO PATIENTS WHO ARE [...] BE BASED ON THE PRIMARY CLINICAL RECORDS. [facility] [employer] provides no warranty or guarantee of the accuracy or completeness of information in this document.
[2023-09-29 11:56] LABS: Estimated Average Glucose 105 mg/dL; Glycohemoglobin A1C 5.3 % (4.5-6.2)
[2023-09-29 12:35] LABS: Alanine Aminotransferase 42 U/L (16-63); Albumin Globulin Ratio 1.1; Albumin Level 3.7 g/dL (3.4-5.0); Alkaline Phosphatase 72 U/L (46-116); Anion Gap 6.5; Aspartate Amino Transferase 21 U/L (15-37); BUN Creatinine Ratio 22.1; Bilirubin Total 0.4 mg/dL (0.2-1.0); Calcium 10.2 mg/dL (8.5-10.1); Chloride 106 mmol/L (98-107); Chol HDL Ratio 3.2; Cholesterol 146 mg/dL (<=200); Estimated GFR (African America >60 (>=60); Estimated GFR (Non-African Ame >60 (>=60); Globulin 3.5 g/dL; Glucose 120 mg/dL (74-106); HDL Cholesterol 46 mg/dL (40-60); LDL Cholesterol Calculated 75.6 mg/dL; Potassium 4.5 mmol/L (3.5-5.1); Sodium 144 mmol/L (136-145); Total Protein 7.2 g/dL (6.4-8.2); Triglycerides 122 mg/dL (<=150); VLDL CHOLESTEROL 24.4 mg/dL
[2023-09-29 12:37] LABS: Basophils Percent Auto 0.5 % (0.2-2.0); Eosinophils Absolute Auto 0.1 10^3/uL (0.0-0.7); Eosinophils Percent Auto 1.4 % (0.9-7.0); Hematocrit 42.4 % (42.0-54.0); Hemoglobin 13.9 g/dL (14.0-18.0); Immature Granulocytes Abs Auto 0.02 10^3/uL (0.00-0.03); Immature Granulocytes Pct Auto 0.3 % (0.0-0.5); Lymphocytes Absolute Auto 0.8 10^3/uL (1.2-3.8); Lymphocytes Percent Auto 10.4 % (20.5-60.0); Mean Corpuscular HGB Conc 32.8 g/dL (29.9-35.2); Mean Corpuscular Hemoglobin 31.1 pg (25.9-34.0); Mean Corpuscular Volume 94.9 fL (80.0-94.0); Mean Platelet Volume 9.9 fL (9.5-13.5); Monocytes Absolute Auto 0.5 10^3/uL (0.3-0.8); Monocytes Percent Auto 6.2 % (1.7-12.0); Neutrophils Absolute Auto 6.3 10^3/uL (1.4-6.5); Neutrophils Percent Auto 81.2 % (43.0-75.0); Platelet Count 154 10^3/uL (150-450); Red Blood Count 4.47 10^6/uL (4.70-6.10); Red Cell Distribution Width 12.5 % (11.0-15.0); White Blood Count 7.8 10^3/uL (4.0-11.0)
[2023-09-29 12:39] LABS: Prostate Specific Antigen Scrn 1.72 ng/mL (<=4.00)
[2023-09-30 09:11] LABS: HCV Ab Non Reactive (Non Reactive)
[2023-10-03 19:14] LABS: Final Interpretation HIV Negative (.); HIV 1 Ab Non Reactive (Non Reactive); HIV 2 Ab Non Reactive (Non Reactive); HIV Ab/p24 Ag Screen Preliminary Reactive (Non Reactive); HIV-1 RNA Non Reactive (Non Reactive); HIV-2 RNA Non Reactive (Non Reactive); Interpretation: Negative (.)
== END 2023-09-29 11:08 | disposition home or self-care (01) ==
LOC: LAB 11:09
PROVIDERS: PCP Nurse Practitioner Primary Care; Visit Provider Nurse Practitioner Primary Care
DX: Z00.00 Encounter for general adult medical examination without abnormal findings (principal); Z11.59 Encounter for screening for other viral diseases; Z11.4 Encounter for screening for human immunodeficiency virus [HIV]; Z13.6 Encounter for screening for cardiovascular disorders; Z12.5 Encounter for screening for malignant neoplasm of prostate
CPT/HCPCS: 36415; 80053; 80061; 83036; 85025; 86803; 87389; 87535; G0103

== ENCOUNTER 2023-10-14 12:56 | Outpatient (OUT) | payer MEDICARE, SELFPAY ==
--- NOTE | 2023-10-14 13:04 | XR_ITS ---
The [place] [id number] Patient Name: ELISE TABOR MRN: [id number] date: 1960 Sex: M Assigned Patient Location: RAD Current Patient Location: [facility] Accession/Order Number: [id number] Exam Date: 10/14/2023 13:08 Report Date: 10/14/2023 13:31 At the request of: DARNELL ALICEA Procedure: XR chest 2V EXAM: XR chest 2V HISTORY: Acute Cough R05.1 COMPARISON: None. TECHNIQUE: PA and lateral views of the chest. FINDINGS: The cardiomediastinal silhouette is normal. Right middle lobe stranding opacity. There is no pneumothorax. No pleural effusion is noted. The osseous structures are intact. XR/XR chest 2V IMPRESSION: Right middle lobe atelectasis or pneumonia. Electronically authenticated by: SILVESTRE MARINELLI Date: 10/14/2023 13:31
--- OUTSIDE RECORDS SUMMARY | 2023-10-14 13:05 | XMS_ITS | CCD ---
Author Name Unknown Address [address] [place] [address] Organization [facility] Care Team Providers Care Manager Group Name Role Phone MELLISA CLARKE Unavailable Unavailab [...] Unavail able SAMSA ., DARNELL Admitting Unavailable [facility] Primary Care Unavailable SAMSA ., DARNELL Attending Unavailable SAMSA ., DARNELL Consulting Unavailable SAMSA ., DARNELL Admitting Unavailable [facility] Primary Care Unavailable SAMSA ., DARNELL Attending Unavailable SAMSA ., DARNELL Consulting Unavailable MELINA GARZA Consulting Unavailable [facility] Primary Care Unavailable SAMSA ., DARNELL Attending Unavailable SAMSA ., DARNELL Consulting Unavailable SAMSA ., DARNELL Admitting Unavailable [facility] Primary Care Unavailable DR ALEYDA DYER [...] [Coronary atherosclerosis of unspecified type of vessel, [place] or graft] Chronic Essential hypertension (4 sources) [...] Episodic Unclassified (1 source) Neck Pain / 331800() Onset: 8 Unclassified (1 source) Stiffness / 343() Onset: 8 Unclassified (1 source) Back Pain / 12() Onset: 8 Unclassified (1 source) Upper Extremity Weakness / [id number]() Onset: 8 Past or Other Problems Problem Classification Problem Date Documented Da te Episodic/Chronic Screening and history of mental health and substance abuse codes (1 source) Personal history of nicotine dependence; Translations: [PERSONAL HISTORY OF NICOTINE DEPEND] Onset: 04-29-2022 Episodic Results Test Name Value Interpretation Reference Range Facility THEOPHYLLINEon 12-30-2022 THEOPHYLLINE 18.0 ug/mL Normal 10.0-20.0 [facility] [place] [facility] Comment on above: Performed By: #### T ADALID #### [facility] [address] [place], [place] [address] Dr. Karen Lee THEOPHYLLINEon 12-17-2022 THEOPHYLLINE 8.3 ug/mL Critically low 10.0-20.[address] [facility] Comment on above: Performed By: #### T ADALID #### [place] [facility] [address] [place], [place] [address] Dr. Karen Lee Blood Pressure Cuff Sizeon [...] Activated Vitals Vital Signs Recorded: 29May2022 02:58PM Detkurizufs11.2 F Heart Rate91 Wooiscumabn39 Alyhmgnc533 Ymwlkkofd40 Blood Pressure Cuff SizeLarge Height5 ft 7.32 in Amsshn055 lb 7 oz BMI Jezdojfksn30.15 kg/m2 BSA Calculated2.19 Tobacco Useb) No Falls Screening (Age 18+)a) No falls within the last year O2 Zhxgiunhin25, Nasal Cannula Pain Scale7 Physical Exam The [...] May 29 2022 3:24PM EST (Author) Normal [facility] Referral Letteron 022 Referral Letter Mr. Tabor [...] May 29 2022 3:24PM EST (Author) Normal Flit CT LUNG CANCER SCREENINGon 0 04-26-2022 CT [...] ALEYDA DYER Date: 2022-04-26 16:20 Normal [facility] HEMOGLOBINon 04-26-2022 Hemoglobin (Bld) [Mass/Vol] 13.6 g/dL Critically low 14.0-18.0 [facility] Comment on above: Performed By: #### H GB #### [facility] [address] [place] [address] [address] Karen Lee Progress Noteson 06-04-2018 Protein mass conc [facility]Progress Notes by Jacquelyn Rivera PT at [...] Pt self discharged with last txsession with HOMICIDE DETECTIVE.Patient is being discharged due to not returning to therapy and/or Plan of Care being .Recommend patient continue with HEP previously instructed on during therapy as appropriate.Patient may be reinstated in therapy upon new evaluation and orders from the physician.Thank You. [facility] Progress Noteson 04-23-2018 Protein mass conc Encounter Department : [facility] REHAB THERAPYProgress Notes by Berlin Valle PTA at 04/23/2018 9:00 AMAuthor: Berlin Valle PTAService: (none)Author Type: Physical Therapy AssistantFiled: 04/23/2018 9:46 AMEncounter Date: 04/23/2018Status: SignedEditor: Berlin Valle PTA (Checkout Supervisor)Physical Therapy Treatment NoteVisit Number: 5Encounter diagnosis:ICD-10-CM1.Cervical giaM54.22.Headache in back of fjswH49Xbdldih Medical Diagnosis:SUBJECTIVE: Pt requests today being his [...] t-band- Scap retract x15- B UE ext u14Fraw tucks x15GTB rows 5d64Qlpkhz- STM along c-spine paraspinals, UT, and levator [...] in rotation and SB without increase in pain.Alf Goals: LTG to be met by 06/08/18 [...] Time: 10Total Treatment Time: 25 PT Treatment [facility] Progress Noteson 04-21-2018 Protein mass conc Encounter [facility]ER[facility]YProgress Notes by Berlin Valle PTA at 04/21/2018 9:00 AMAuthor: Berlin Valle PTAService: (none)Author Type: Physical Therapy AssistantFiled: 04/21/2018 9:46 AMEncounter Date: 04/21/2018Status: SignedEditor: Berlin Valle PTA (Checkout Supervisor)Physical Therapy Treatment NoteVisit Number: 4Encounter diagnosis:ICD-10-CM1.Cervical giaM54.22.Headache in back of iijlC93Afcqpco Medical Diagnosis: CervicalgiaSUBJECTIVE:Complia nce with HEP: Pt [...] t-band- Scap retract x15- B UE ext t75Qrks tucks x15GTB rows 6a30Qrxowr- STM along c-spine paraspinals, UT, and levator [...] in rotation and SB without increase in pain.Canine Service Instructor Trainer Goals: LTG to be met by 06/08/18 [...] Time: 17Total Treatment Time: 32 PT Treatment [facility] Progress Noteson 04-16-2018 Protein mass conc Encounter Department : [facility] THERAPYProgress Notes by Collette Villanueva PTA at 04/16/2018 9:00 AMAuthor: Collette Villanueva PTAService: (none)Author Type: Physical Therapy AssistantFiled: 04/16/2018 12:11 PMEncounter Date: 04/16/2018Status: SignedEditor: Collette Villanueva PTA (Checkout Supervisor)Physical Therapy Treatment NoteVisit Number: 3Encounter diagnosis:ICD-10-CM1.Cervical giaM54.22.Headache in back of mnjnU32Zvgznsz Medical Diagnosis: CervicalgiaSUBJECTIVE:Complia nce with HEP: Patient [...] t-band- Scap retract x15- B UE ext o04Djcb tucks x15GTB rows 1n04Oijyxc- STM along c-spine paraspinals, UT, and levator [...] in rotation and SB without increase in pain.Alf Goals: LTG to be met by 06/08/18 [...] Time: 28Total Treatment Time: 43 PT Treatment [facility] Progress Noteson 04-10-2018 Protein mass conc Encounter Department : [facility] THERAPYProgress Notes by Berlin Valle PTA at 04/10/2018 9:00 AMAuthor: Berlin Valle PTAService: (none)Author Type: Physical Therapy AssistantFiled: 04/10/2018 10:21 AMEncounter Date: 04/10/2018Status: SignedEditor: Berlin Valle PTA (Checkout Supervisor)Physical Therapy Treatment NoteVisit Number: 2Encounter diagnosis:ICD-10-CM1.Cervical giaM54.22.Headache in back of bypvF82Sxcybpe Medical Diagnosis: CervicalgiaSUBJECTIVE:Complia nce with HEP: Pt [...] UT stretch 3x 30'Chin tucks x15GTB rows 8x73KXV: chin tuck, UT and LS stretch, scap [...] in rotation and SB without increase in pain.Canine Service Instructor Trainer Goals: LTG to be met by 06/08/18 [...] Time: 30Total Treatment Time: 45 PT Treatment [facility] Progress Noteson 04-08-2018 Protein mass conc Encounter [facility] : [facility] THER[facility]YProgress Notes by Jacquelyn Rivera PT at 04/08/2018 1:45 PMAuthor: HAYES Natarajanervice: (none)Author Type: Physical TherapistFiled: 04/08/2018 6:47 PMEncounter Date: 04/08/2018Status: SignedEditor: Jacquelyn Rivera PT (Physical Therapist)Physical Therapy EvaluationEncounter diagnosis:ICD-10-CM1.Cervical giaM54.22.Headache in back of ghinM21Tcopmfkwf provider: Mellisa Clarke,*Primary Medical Diagnosis: CervicalgiaPlan of [...] Home: 15Prior Level of Functioning: Level of [place]: [facility] Level of Functioning: Outcome Score: NDI (26 raw score NDI, 52% disability) Functional deficits: reports no functional deficits, able to do everything just withincreased pain. Level of [place]: Modified IndependentSleep Status/Sleep Hygiene: Preferred Sleep Position: [...] codes)G8978 Mobility Current Status; Severity: CK 40-59% myuwzlvkQ8646 Mobility Goal Status; Severity: CI 1-19% impairedOutcome measure(s)/Test(s) used/Result(s): 52% disability on NDI.Clinical Judgment: Moderate to severe impairement, decreased neck ROM and strength, tenderness totrigger points moderateNew Category to Dhhsgm-Fj-Zleh only?:NoEvaluation Breakdown DescriptionPatient HistoryComorbiditiesEnvironme ntal/Personal factorsLearning/CognitionDome stic [...] in rotation and SB without increase in pain.Alf Goals: LTG to be met by 06/08/18 [...] 60Time in: 1:44Time Out: 2:45 PT Eval [facility] Vital Signs Date Time Vital Sign [...] Care Provider Facility Start: 12-30-2022 End: 12-31-2022 [facility] Facility: Start: 12-17-2022 End: 12-18-2022 ambulatory DARNELL ALICEA . Facility: Start: 06-17-2022 AUDIT Referring Prov ider Unknown [facility] [address] Work Phone: Start: 05-29-2022 Office outpatient ne w 45 minutes Referring Provider Unknown [facility] Work Phone: Start: 05-29-[address] Popeye [facility]ia [facility]ity:[facility] Start: 05-21-2022 End: 08-14-2022 ambulatory [facility] Facility: Start: 04-26-2022 End: 04-27-2022 [facility] Facility: Start: 04-23-2018 End: 04-23-2018 Patient encounter [place] [facility] Start: 04-21-2018 End: 04-21-2018 Patient encounter [place] [facility] Start: 04-16-2018 End: 04-16-2018 Patient encounter COLLETTE German VILLANUE[facility] Start: 04-10-2018 End: 04-10-2018 Patient encounter [place] [facility] Start: 04-08-2018 End: 04-08-2018 Patient encounter MELLISA CLARKE [facility] Patient encounter status Referring Provider Unknown [facility] [address] Work Phone: Procedures Date Procedure Procedure Detail Performing Clinician Cataract surgery Referring P ruthie Unknown Coronary artery bypass graft Referring Provider Unknown Hernia repair Referring Prov ider Unknown Prosthetic arthroplasty of shoulder Referring Provider Unknown Total replacement of hip Ref erring Provider Unknown Payers Date Payer Category Payer Unknown [id number] 2.. [id number] 1960 Unknown [id number] [id number] [id number] 1960 Unknown [id number] 2.16.84 [id number] 1960 Unknown [id number] 2.16.84 [id number] 1960 Unknown [id number] 2.16.84 [id number] 1959 Medicare [id number] Unknown Social History Date Type Detail Facility Social alcohol use Social alcohol use - [place] [facility] Work Phone: History of Present illness Narrative [...] He is set to begin pulmonary rehabilitation. [facility] [facility] Work Phone: History of Present illness [...] He is set to begin pulmonary rehabilitation. [facility] Work Phone: History of Present illness [...] He is set to begin pulmonary rehabilitation. [facility] Work Phone: Summary Purpose Family History [...] section and content) DATE CREATED AUTHOR 07/04/2018 [facility] DATE CREATED AUTHOR AUTHOR'S ORGANIZ ATION 06/09/2022 [facility] DATE CREATED AUTHOR AUTHOR'S ORGANIZ ATION 06/09/2022 [facility] DATE CREATED AUTHOR AUTHOR'S ORGANIZ ATION 02/14/2023 [...] BE BASED ON THE PRIMARY CLINICAL RECORDS. [facility] [employer] provides no warranty or guarantee of the accuracy or completeness of information in this document.
== END 2023-10-14 12:57 | disposition home or self-care (01) ==
LOC: RAD 12:58
PROVIDERS: PCP Nurse Practitioner Primary Care; Visit Provider Internal Medicine
DX: R05.1 Acute cough (principal)
CPT/HCPCS: 71046

== ENCOUNTER 2023-10-27 10:17 | Emergency (ER) | payer MEDICARE, SELFPAY ==
[2023-10-27] VITALS (10 sets, daily range): BP systolic 109; BP diastolic 68–69; PULSE 72; RESP 24; TEMP 36.6; O2SAT 90–98; BMI 21.5
--- NOTE | 2023-10-27 10:29 | PC.NURSE ---
PT C/O BLOOD TINGED SPUTUM X 1 DAY. PT HAX H/O COPD AND CHF. PT DENIES SORE THROAT OR CHEST PAIN
--- OUTSIDE RECORDS SUMMARY | 2023-10-27 10:31 | XMS_ITS | CCD ---
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 Name Role Phone MELLISA CLARKE Unavailable Unavailab [...] Unavail able SAMSA ., DARNELL Admitting Unavailable [facility] [place] [facility] Unavailable SAMSA ., DARNELL Attending Unavailable SAMSA ., DARNELL Consulting Unavailable SAMSA ., DARNELL Admitting Unavailable [facility] [place] Care Unavailable SAMSA ., DARNELL Attending Unavailable SAMSA ., DARNELL Consulting Unavailable MELINA GARZA Consulting Unavailable [facility] [place] Care Unavailable SAMSA ., DARNELL Attending Unavailable SAMSA ., DARNELL Consulting Unavailable SAMSA ., DARNELL Admitting Unavailable [facility] Primary Care Unavailable DR ALEYDA DYER Consulting [...] [Coronary atherosclerosis of unspecified type of vessel, [place] or graft] Chronic Essential hypertension (4 sources) [...] Episodic Unclassified (1 source) Neck Pain / 886339() Onset: 8 Unclassified (1 source) Stiffness / 343() Onset: 8 Unclassified (1 source) Back Pain / 12() Onset: 8 Unclassified (1 source) Upper Extremity Weakness / [id number]() Onset: 8 Past or Other Problems Problem Classification Problem Date Documented Da te Episodic/Chronic Screening and history of mental health and substance abuse codes (1 source) Personal history of nicotine dependence; Translations: [PERSONAL HISTORY OF NICOTINE DEPEND] Onset: 04-29-2022 Episodic Results Test Name Value Interpretation Reference Range Facility THEOPHYLLINEon 12-30-2022 THEOPHYLLINE 18.0 ug/mL Normal 10.0-20.0 [facility] Comment on above: Performed By: #### T ADALID #### [facility] [address] [place], [place] [address] Dr. Karen Lee THEOPHYLLINEon 12-17-2022 THEOPHYLLINE 8.3 ug/mL Critically low 10.0-20.0 [facility] Comment on above: Performed By: #### T ADALID #### [facility] [address] [place], [place] [address] Dr. Karen Lee Blood Pressure Cuff Sizeon [...] Activated Vitals Vital Signs Recorded: 29May2022 02:58PM Sqfblepmyyu53.2 F Heart Rate91 Dolvhxoevri99 Zxtwgbco993 Bbqjdaqtl03 Blood Pressure Cuff SizeLarge Height5 ft 7.32 in Hwkwag524 lb 7 oz BMI Jvoteqgmvk90.15 kg/m2 BSA Calculated2.19 Tobacco Useb) No Falls Screening (Age 18+)a) No falls within the last year O2 Onwwdombcl09, Nasal Cannula Pain Scale7 Physical Exam The [...] May 29 2022 3:24PM EST (Author) Normal [facility] Referral Letteron 022 Referral Letter Mr. Tabor [...] May 29 2022 3:24PM EST (Author) Normal [facility] CT LUNG CANCER SCREENINGon 0 04-26-2022 CT [...] ALEYDA DYER Date: 2022-04-26 16:20 Normal [facility] HEMOGLOBINon 04-26-2022 Hemoglobin (Bld) [Mass/Vol] 13.6 g/dL Critically low 14.0-18.0 [facility] Comment on above: Performed By: #### H GB #### [facility] [address] [place] [address] [address] 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 [facility] Progress Noteson 04-23-2018 Protein mass conc Encounter Department : [facility] REHAB THERAPYProgress Notes by Berlin Valle PTA at 04/23/2018 9:00 AMAuthor: Berlin Valle PTAService: (none)Author Type: Physical Therapy AssistantFiled: 04/23/2018 9:46 AMEncounter Date: 04/23/2018Status: SignedEditor: Berlin Valle PTA ([employer])Physical Therapy Treatment NoteVisit Number: 5Encounter diagnosis:ICD-10-CM1.Cervical giaM54.22.Headache in back of wwtbQ82Tvjmixv Medical Diagnosis:SUBJECTIVE: Pt requests today being his [...] t-band- Scap retract x15- B UE ext l92Wlgq tucks x15GTB rows 9a33Tycfub- STM along c-spine paraspinals, UT, and levator [...] in rotation and SB without increase in pain.Snf Goals: LTG to be met by 06/08/18 [...] Time: 10Total Treatment Time: 25 PT Treatment [facility] Progress Noteson 04-21-2018 Protein mass conc Encounter [facility]Progress Notes by Berlin Valle PTA at 04/21/2018 9:00 AMAuthor: Berlin Valle PTAService: (none)Author Type: Physical Therapy AssistantFiled: 04/21/2018 9:46 AMEncounter Date: 04/21/2018Status: SignedEditor: Berlin Valle PTA ([employer] Reseller)Physical Therapy Treatment NoteVisit Number: 4Encounter diagnosis:ICD-10-CM1.Cervical giaM54.22.Headache in back of uilcN20Qacbcmb Medical Diagnosis: CervicalgiaSUBJECTIVE:Complia nce with HEP: Pt [...] t-band- Scap retract x15- B UE ext k00Nvkf tucks x15GTB rows 7w45Tvryoo- STM along c-spine paraspinals, UT, and levator [...] in rotation and SB without increase in pain.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[employer] Goals: LTG to be met by 06/08/18 [...] Time: 17Total Treatment Time: 32 PT Treatment [facility] Progress Noteson 04-16-2018 Protein mass conc Encounter Department : [facility]Progress Notes by Collette Villanueva PTA at 04/16/2018 9:00 AMAuthor: Collette Villanueva PTAService: (none)Author Type: Physical Therapy AssistantFiled: 04/16/2018 12:11 PMEncounter Date: 04/16/2018Status: SignedEditor: Collette Villanueva PTA ([employer] Reseller)Physical Therapy Treatment NoteVisit Number: 3Encounter diagnosis:ICD-10-CM1.Cervical giaM54.22.Headache in back of bvigD22Spckgor Medical Diagnosis: CervicalgiaSUBJECTIVE:Complia nce with HEP: Patient [...] t-band- Scap retract x15- B UE ext l99Zvco tucks x15GTB rows 5t86Bzvxbt- STM along c-spine paraspinals, UT, and levator [...] in rotation and SB without increase in pain.Snf Goals: LTG to be met by 06/08/18 [...] Time: 28Total Treatment Time: 43 PT Treatment [facility] Progress Noteson 04-10-2018 Protein mass conc Encounter [facility] : [facility]Progress Notes by Berlin Valle PTA at 04/10/2018 9:00 AMAuthor: Berlin Valle PTAService: (none)Author Type: Physical Therapy AssistantFiled: 04/10/2018 10:21 AMEncounter Date: 04/10/2018Status: SignedEditor: Berlin Valle PTA ([employer] Reseller)Physical Therapy Treatment NoteVisit Number: 2Encounter diagnosis:ICD-10-CM1.Cervical giaM54.22.Headache in back of iokzX73Iyibsjy Medical Diagnosis: CervicalgiaSUBJECTIVE:Complia nce with HEP: Pt [...] UT stretch 3x 30'Chin tucks x15GTB rows 5s01AFC: chin tuck, UT and LS stretch, scap [...] in rotation and SB without increase in pain.Snf Goals: LTG to be met by 06/08/18 [...] Time: 30Total Treatment Time: 45 PT Treatment [facility] Progress Noteson 04-08-2018 Protein mass conc Encounter Department : [facility]YProgress Notes by Jacquelyn Rivera PT at 04/08/2018 1:45 PMAuthor: HAYES Natarajanervice: (none)Author Type: Physical TherapistFiled: 04/08/2018 6:47 PMEncounter Date: 04/08/2018Status: SignedEditor: Jacquelyn Rivera PT (Physical Therapist)Physical Therapy EvaluationEncounter diagnosis:ICD-10-CM1.Cervical giaM54.22.Headache in back of atfuM33Bsckskigj provider: Mellisa Clarke,*Primary Medical Diagnosis: CervicalgiaPlan of [...] Home: 15Prior Level of Functioning: Level of [place]: Modified [facility]Cuwh[facility] Level of Functioning: Outcome Score: NDI (26 raw score NDI, 52% disability) Functional deficits: reports no functional deficits, able to do everything just withincreased pain. Level of [place]: Modified IndependentSleep Status/Sleep Hygiene: Preferred Sleep Position: [...] codes)G8978 Mobility Current Status; Severity: CK 40-59% lbdesxwbK3592 Mobility Goal Status; Severity: CI 1-19% impairedOutcome measure(s)/Test(s) used/Result(s): 52% disability on NDI.Clinical Judgment: Moderate to severe impairement, decreased neck ROM and strength, tenderness totrigger points moderateNew Category to Bzhmji-Ex-Ppfl only?:NoEvaluation Breakdown DescriptionPatient HistoryComorbiditiesEnvironme ntal/Personal factorsLearning/CognitionDome stic [...] in rotation and SB without increase in pain.Snf Goals: LTG to be met by 06/08/18 [...] 60Time in: 1:44Time Out: 2:45 PT Eval [facility] Vital Signs Date Time Vital Sign [...] Care Provider Facility Start: 12-30-2022 End: 12-31-2022 [facility] Facility: Start: 12-17-2022 End: 12-18-2022 ambulatory DARNELL ALICEA . Facility: Start: 06-17-2022 AUDIT Referring Prov ider Unknown [facility] [facility] Work Phone: Start: 05-29-2022 Office outpatient ne w 45 minutes Referring Provider Unknown [facility] Work Phone: Start: 05-29-[address] Popeye Heredia lity:[facility] Start: 05-21-2022 End: 08-14-2022 ambulatory [facility] Facility: Start: 04-26-2022 End: 04-27-2022 [facility] Facility: Start: 04-23-2018 End: 04-23-2018 Patient encounter [place] [facility] Start: 04-21-2018 End: 04-21-2018 Patient encounter [place] [facility] Start: 04-16-2018 End: 04-16-2018 Patient encounter COLLETTE German VILLANUEVA [facility] Start: 04-10-2018 End: 04-10-2018 Patient encounter [place] [facility] Start: 04-08-2018 End: 04-08-2018 Patient encounter MELLISA CLARKE [facility] Patient encounter status Referring Provider Unknown [facility] [address] Work Phone: Procedures Date Procedure Procedure Detail Performing Clinician Cataract surgery Referring P ruthie Unknown Coronary artery bypass graft Referring Provider Unknown Hernia repair Referring Prov ider Unknown Prosthetic arthroplasty of shoulder Referring Provider Unknown Total replacement of hip Ref erring Provider Unknown Payers Date Payer Category Payer Unknown [id number] 2.. [id number] 1960 Unknown [id number] 2.16.84 [id number] 1960 Unknown [id number] 2.16.84 [id number] 1960 Unknown [id number] 2.16.84 [id number] 1960 Unknown [id number] 2.16.84 [id number] 1959 Medicare [id number] Unknown Social History Date Type Detail Facility Social alcohol use Social alcohol use - [facility] Surgery[facility] Work Phone: History of Present illness [...] He is set to begin pulmonary rehabilitation. [facility] [facility] Work Phone: History of Present illness Narrative [...] He is set to begin pulmonary rehabilitation. [facility] Work Phone: History of Present illness Narrative [...] He is set to begin pulmonary rehabilitation. [facility] Work Phone: Summary Purpose Family History No [...] section and content) DATE CREATED AUTHOR 07/04/2018 [facility] DATE CREATED AUTHOR AUTHOR'S ORGANIZ ATION 06/09/2022 [facility] DATE CREATED AUTHOR AUTHOR'S ORGANIZ ATION 06/09/2022 [employer] DATE CREATED AUTHOR AUTHOR'S ORGANIZ ATION 02/14/2023 [...] BE BASED ON THE PRIMARY CLINICAL RECORDS. [facility] [employer] provides no warranty or guarantee of the accuracy or completeness of information in this document.
--- NOTE | 2023-10-27 10:35 | XR_ITS ---
The [address] [address] Patient Name: ELISE TABOR MRN: [id number] date: 1960 Sex: M Assigned Patient Location: ER Current Patient Location: ER Accession/Order Number: [id number] Exam Date: 10/27/2023 10:41 Report Date: 10/27/2023 11:17 At the request of: TAMAR SARKAR Procedure: XR chest 1V EXAM: XR chest 1V HISTORY: Hemoptysis. COMPARISON: Chest radiograph dated 10/14/2023. TECHNIQUE: AP erect portable chest radiograph performed. FINDINGS: Stable median sternotomy wires. The trachea is unremarkable. Stable mild prominence of the cardiomediastinal silhouette. The hilar shadows are unremarkable. There is no consolidation or infiltrate, pleural effusion or pulmonary vascular congestion. There is no pneumothorax. There is no acute osseous abnormality. XR/XR chest 1V IMPRESSION: There is no acute cardiopulmonary process. The etiology of the hemoptysis is not defined based on this examination. Appropriate clinical management is recommended. Electronically authenticated by: JILLIAN CANTU Date: 10/27/2023 11:17
--- NOTE | 2023-10-27 10:35 | ED.URI1 ---
HPI - URI/Sore Throat General Chief Complaint: Upper Respiratory Infection Stated Complaint: COUGHING UP BLOOD Time Seen by Provider: 10/27/23 10:30 Source: patient Limitations: no limitations History of Present Illness HPI Narrative: 63-year-old male presents for hemoptysis which began this morning. For the last day or 2 he has been coughing up some green phlegm but the hemoptysis started today. He is on Eliquis. 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 He has not had a fever and does not complain to me of chest pain. No dizziness or palpitations. Related Data Home Medications Medication Instructions Recorded Confirmed ascorbic acid (vitamin C) 500 mg 1 g PO DAILY 04/01/23 08/14/23 tablet (C-500) aspirin 81 mg tablet,delayed 81 mg PO DAILY 04/01/23 08/14/23 release atorvastatin 40 mg tablet 40 mg PO DAILY 04/01/23 08/14/23 cholecalciferol (vitamin D3) .Route 04/01/23 ferrous sulfate 325 mg (65 mg 325 mg PO DAILY 04/01/23 08/14/23 iron) tablet (Feosol) fluticasone fur. 200 mcg-umeclid 1 inh inhalation Q24H 04/01/23 08/14/23 62.5 mcg-vilant 25 mcg inhalat.powder (Trelegy Ellipta) ipratropium 0.5 mg-albuterol 3 mg 3 ml inhalation Q8H PRN shortness 04/01/23 08/14/23 (2.5 mg base)/3 mL nebulization of breath soln lisinopril 5 mg tablet 5 mg PO DAILY 04/01/23 08/14/23 mecobalamin (vitamin B12) 1,000 1,000 mcg PO DAILY 04/01/23 08/14/23 mcg chewable tablet metoprolol succinate 50 mg 100 mg PO DAILY 04/01/23 08/14/23 tablet,extended release 24 hr naproxen 250 mg tablet 220 mg PO BID PRN pain 04/01/23 08/14/23 nitroglycerin 0.4 mg sublingual 0.4 mg sublingual Q5M PRN chest 04/01/23 08/14/23 tablet pain omeprazole 40 mg capsule,delayed 40 mg PO DAILY 04/01/23 08/14/23 release roflumilast 500 mcg tablet 500 mcg PO DAILY 04/01/23 08/14/23 testosterone 50 mg/5 gram (1 %) 100 mg transdermal DAILY 04/01/23 08/14/23 transdermal gel theophylline 400 mg 400 mg PO Q24H 04/01/23 08/14/23 tablet,extended release 24 hr zinc 50 mg tablet 50 mg PO DAILY 04/01/23 08/14/23 apixaban 5 mg tablet (Eliquis) mg 08/14/23 gabapentin 400 mg capsule mg 08/14/23 gabapentin 600 mg tablet mg 08/14/23 meloxicam 15 mg tablet mg 08/14/23 methylprednisolone 4 mg tablets in mg 08/14/23 a dose pack nystatin 100,000 unit/mL oral 08/14/23 suspension zonisamide 25 mg capsule mg PO 08/14/23 Previous Rx's Medication Instructions Recorded acetaminophen 300 mg-codeine 30 mg 1 tab PO Q6H PRN pain 5 days #20 06/12/23 tablet tabs bmx solution 10 ml PO Q8H PRN sore throat 10 08/14/23 days #150 mL clindamycin HCl 150 mg capsule 450 mg (3 x 150 mg) PO TID 7 days 08/14/23 #63 caps azithromycin 250 mg tablet See Rx Instructions PO .COMPLEX #6 10/27/23 (Zithromax Z-Dl) tabs Allergies Allergy/AdvReac Type Severity Reaction Status Date / Time No Known Drug Allergies Allergy Verified 08/14/23 01:41 Review of Systems ROS Narrative A ten point review of systems is negative except as noted above. PFSH PFSH Social History Smoking status: Former smoker Exam Narrative Exam Narrative: Nurses note and vital signs reviewed and patient is not hypoxic. General: The patient appears well and in no apparent distress. Patient is resting comfortably on cart. Skin: Warm, dry, no pallor noted. There is no rash noted. Head: Normocephalic, atraumatic Eye: Normal conjunctiva, no drainage Ears, Nose, Mouth, and Throat: oral mucosa is moist. Nares patent. Cardiovascular: Regular Rate and Rhythm, not tachycardic Respiratory: Patient is in no distress, no accessory muscle use, lungs are clear to auscultation, no wheezing, rales or rhonchi Back: non-tender GI: Soft and nontender Musculoskeletal: The patient has no evidence of calf tenderness, no pitting edema, symmetrical pulses noted bilaterally Neurological: A&O, normal speech Psychiatric: Cooperative Constitutional Vital Signs, click to edit/add: Last Vital Signs Temp 97.8 F 10/27/23 10:21 Pulse 72 10/27/23 10:21 Resp 24 10/27/23 10:21 BP 109/68 10/27/23 10:21 Pulse Ox 96 10/27/23 10:28 O2 Del Method Nasal Cannula 10/27/23 10:28 O2 Flow Rate 3 10/27/23 10:28 Course Vital Signs Vital signs: Vital Signs Temperature 97.8 F 10/27/23 10:21 Pulse Rate 72 10/27/23 10:21 Respiratory Rate 24 10/27/23 10:21 Blood Pressure 109/68 10/27/23 10:21 Pulse Oximetry 96 10/27/23 10:21 Oxygen Delivery Method Nasal Cannula 10/27/23 10:21 Oxygen Delivery Flow Rate 3 10/27/23 10:21 Temperature 97.8 F 10/27/23 10:21 Pulse Rate 72 10/27/23 10:21 Respiratory Rate 24 10/27/23 10:21 Blood Pressure 109/68 10/27/23 10:21 Pulse Oximetry 96 10/27/23 10:28 Oxygen Delivery Method Nasal Cannula 10/27/23 10:28 Oxygen Delivery Flow Rate 3 10/27/23 10:28 MDM - URI/Sore Throat MDM Narrative Medical decision making narrative: Chest x-ray shows no acute findings. He is prescribed Zithromax and he will follow-up with his grit removal operator if symptoms do not improve. Treatment diagnosis and follow-up were discussed with the patient. Differential Diagnosis Differential diagnosis: Likely upper respiratory infection and other (Pneumonia, hemoptysis) Imaging Data Chest x-ray: Radiologist's impression: ITS Impressions Chest X-Ray 10/27/23 10:35 IMPRESSION: There is no acute cardiopulmonary process. The etiology of the hemoptysis is not defined based on this examination. Appropriate clinical management is recommended. Electronically authenticated by: JILLIAN CANTU Date: 10/27/2023 11:17 Discharge Plan Discharge Chief Complaint: Upper Respiratory Infection Clinical Impression: Hemoptysis Patient Disposition: Home, Self-Care Time of Disposition Decision: 11:29 Condition: Good Mode of Transportation: Private Vehicle Prescriptions / Home Meds: New azithromycin [Zithromax Z-Dl] 250 mg tablet See Rx Instructions .ROUTE .COMPLEX Qty: 6 0RF Rx Instructions: For 250 mg dose pack: take 500 mg today (day 1), then 250 mg for 4 days (days 2-5) No Action atorvastatin 40 mg tablet 40 mg PO DAILY ipratropium-albuterol 0.5 mg-3 mg(2.5 mg base)/3 mL solution for nebulization 3 ml INHALATION Q8H PRN (Reason: shortness of breath) lisinopril 5 mg tablet 5 mg PO DAILY metoprolol succinate 50 mg tablet extended release 24 hr 100 mg PO DAILY omeprazole 40 mg capsule,delayed release(DR/EC) 40 mg PO DAILY theophylline 400 mg tablet extended release 24 hr 400 mg PO Q24H roflumilast 500 mcg tablet 500 mcg PO DAILY Trelegy Ellipta 200-62.5-25 mcg blister with device 1 inh INHALATION Q24H aspirin 81 mg tablet,delayed release (DR/EC) 81 mg PO DAILY nitroglycerin 0.4 mg tablet, sublingual 0.4 mg sublingual Q5M PRN (Reason: chest pain) testosterone 50 mg/5 gram (1 %) gel 100 mg transdermal DAILY Patient Comments: naproxen 250 mg tablet 220 mg PO BID PRN (Reason: pain) mecobalamin (vitamin B12) 1,000 mcg tablet,chewable 1,000 mcg PO DAILY ascorbic acid (vitamin C) [C-500] 500 mg tablet 1 g PO DAILY cholecalciferol (vitamin D3) .Route ferrous sulfate [Feosol] 325 mg (65 mg iron) tablet 325 mg PO DAILY zinc 50 mg tablet 50 mg PO DAILY acetaminophen-codeine 300-30 mg tablet 1 tab PO Q6H PRN (Reason: pain) 5 Days Qty: 20 0RF nystatin 100,000 unit/mL suspension gabapentin 600 mg tablet meloxicam 15 mg tablet gabapentin 400 mg capsule methylprednisolone 4 mg tablets,dose pack zonisamide 25 mg capsule PO Eliquis 5 mg tablet clindamycin HCl 150 mg capsule 450 mg PO TID 7 Days Qty: 63 0RF bmx solution 10 ml PO Q8H PRN (Reason: sore throat) 10 Days Qty: 150 0RF Rx Instructions: 50mL liquid benadryl, 50mL maalox, 50mL lidocaine mixed; 10mL gargled and swallowed q8hr prn sore throat Instructions: Coughing Up Blood (Hemoptysis) (ED) Additional Instructions: Contact your grit removal operator if symptoms do not improve. Stand Alone Forms: Portal Instructions Referrals: MAURO BLANCO APRN [Primary Care Provider] - 1 week
== END 2023-10-27 11:45 | disposition home or self-care (01) ==
PROVIDERS: Emergency Provider Emergency Medicine; PCP Nurse Practitioner Primary Care
DX: R04.2 Hemoptysis (principal); Z79.01 Long term (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 of 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; Z79.82 Long term (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 of aspirin; Z79.899 Other long term (current) drug therapy; Z87.891 Personal history of nicotine dependence
CPT/HCPCS: 71045; 99283

== ENCOUNTER 2024-02-13 13:36 | Emergency (ER) | payer MEDICARE, SELFPAY ==
[2024-02-13 13:43] VITALS: BP 138/96; PULSE 89; TEMP 36.9; O2SAT 95
[2024-02-13 13:47] VITALS: PULSE 89
--- NOTE | 2024-02-13 13:52 | ED_ITS ---
HPI HPI - General Adult General Chief complaint: Shortness of Breath/Dyspnea Stated complaint: SHORTNESS OF BREATH/LOWER BACK PAIN Time Seen by Provider: 02/13/24 13:46 Source: patient Mode of arrival: walk-in Limitations: no limitations History of Present Illness HPI narrative: Patient is a 63-year-old male with a history of COPD who presents to the ER with concerns of green productive cough that started this morning. He denies fever, states he has his inhalers at home. He is on oxygen chronically at 3 L/min. Patient states he has been taking prednisone 5 mg daily for several months for his lungs and his family doctor increased him to 20 mg yesterday for 5 days for some right lower back pain. He denies any dysuria. He denies any hemoptysis. Patient states he has an appointment with his zone supervisor firearms next week but did not want to go into the weekend without being on antibiotics given his onset of symptoms today. Patient denies any chest pain and states that shortness of breath is baseline. Onset (ago): day(s) (Onset this morning) Radiation: Denies non-radiation or back Severity: mild Quality: Denies burning Treatments prior to arrival: Reports other Related Data Home Medications ?Medication ?Instructions ?Recorded ?Confirmed ascorbic acid (vitamin C) 500 mg 1 g PO DAILY 04/01/23 08/14/23 tablet (C-500) aspirin 81 mg tablet,delayed 81 mg PO DAILY 04/01/23 08/14/23 release atorvastatin 40 mg tablet 40 mg PO DAILY 04/01/23 08/14/23 cholecalciferol (vitamin D3) .Route 04/01/23 ferrous sulfate 325 mg (65 mg 325 mg PO DAILY 04/01/23 08/14/23 iron) tablet (Feosol) fluticasone fur. 200 mcg-umeclid 1 inh inhalation Q24H 04/01/23 08/14/23 62.5 mcg-vilant 25 mcg inhalat.powder (Trelegy Ellipta) ipratropium 0.5 mg-albuterol 3 mg 3 ml inhalation Q8H PRN shortness 04/01/23 08/14/23 (2.5 mg base)/3 mL nebulization of breath soln lisinopril 5 mg tablet 5 mg PO DAILY 04/01/23 08/14/23 mecobalamin (vitamin B12) 1,000 1,000 mcg PO DAILY 04/01/23 08/14/23 mcg chewable tablet metoprolol succinate 50 mg 100 mg PO DAILY 04/01/23 08/14/23 tablet,extended release 24 hr naproxen 250 mg tablet 220 mg PO BID PRN pain 04/01/23 08/14/23 nitroglycerin 0.4 mg sublingual 0.4 mg sublingual Q5M PRN chest 04/01/23 08/14/23 tablet pain omeprazole 40 mg capsule,delayed 40 mg PO DAILY 04/01/23 08/14/23 release roflumilast 500 mcg tablet 500 mcg PO DAILY 04/01/23 08/14/23 testosterone 50 mg/5 gram (1 %) 100 mg transdermal DAILY 04/01/23 08/14/23 transdermal gel theophylline 400 mg 400 mg PO Q24H 04/01/23 08/14/23 tablet,extended release 24 hr zinc 50 mg tablet 50 mg PO DAILY 04/01/23 08/14/23 apixaban 5 mg tablet (Eliquis) mg 08/14/23 gabapentin 400 mg capsule mg 08/14/23 gabapentin 600 mg tablet mg 08/14/23 meloxicam 15 mg tablet mg 08/14/23 methylprednisolone 4 mg tablets in mg 08/14/23 a dose pack nystatin 100,000 unit/mL oral 08/14/23 suspension zonisamide 25 mg capsule mg PO 08/14/23 Previous Rx's ?Medication ?Instructions ?Recorded acetaminophen 300 mg-codeine 30 mg 1 tab PO Q6H PRN pain 5 days #20 06/12/23 tablet tabs bmx solution 10 ml PO Q8H PRN sore throat 10 08/14/23 days #150 mL clindamycin HCl 150 mg capsule 450 mg (3 x 150 mg) PO TID 7 days 08/14/23 #63 caps azithromycin 250 mg tablet See Rx Instructions PO .COMPLEX #6 10/27/23 (Zithromax Z-Dl) tabs doxycycline hyclate 100 mg capsule 100 mg PO BID 10 days #20 caps 02/13/24 Allergies Allergy/AdvReac Type Severity Reaction Status Date / Time No Known Drug Allergies Allergy Verified 08/14/23 01:41 Opioid HPI Opioid Management Most Recent Opioid Data: No Data to Display Review of Systems ROS Constitutional Denies: fever or chills Eyes Denies: change in vision or blurry vision Ears, nose, mouth, and throat Denies: throat pain, neck pain, throat swelling or difficulty swallowing Cardiovascular Denies: chest pain or palpitations Respiratory Reports: shortness of breath, cough and chest congestion; Denies: wheezing or stridor Gastrointestinal Denies: abdominal pain Genitourinary Denies: painful urination Musculoskeletal Denies: back pain, neck pain or extremity pain Integumentary/Breast Denies: rash Neurological Denies: headache Psychiatric Denies: anxiety Allergic/Immunologic Denies: hives [facility] Social History Smoking status: Former smoker Exam Narrative Exam Narrative: Nurses notes and vital signs reviewed and patient is not hypoxic. General: The patient appears well and in no apparent distress. Patient is resting comfortably on cart. wearing O2 3 lpm Skin: Warm, dry, no pallor noted. Head: Normocephalic, atraumatic Neck: Supple, trachea mid-line, no tenderness, no lymphadenopathy Eye: Pupils are equal, round and reactive to light, EOMI Ears, Nose, Mouth, and Throat: TM are clear, myringotomy tubes bilateral ears without drainage. normal light reflex, oral mucosa is moist, no posterior oropharynx erythema or hypertrophy, uvula is mid-line Cardiovascular: Regular Rate and Rhythm Respiratory: Patient is in no distress, no accessory muscle use, lungs are clear to auscultation slightly diminished in the bases., no wheezing, rales or rhonchi. Chest Wall: no tenderness, Denies pleuritic chest pain Back: non-tender, no CVA tenderness, no evidence zoster like rash, tenderness right low back at the waistline. Minimal spasm. Musculoskeletal: normal ROM, no tenderness, no swelling GI: Normal bowel sounds, no tenderness to palpation, no masses appreciated. No rebound, guarding, or rigidity noted. Neurological: A&O x4 Psychiatric: Cooperative Constitutional Vital Signs, click to edit/add: Last Vital Signs Temp 98.4 F 02/13/24 13:43 Pulse 89 02/13/24 13:43 Resp 22 H 02/13/24 13:43 BP 138/96 H 02/13/24 13:43 Pulse Ox 95 02/13/24 13:43 O2 Del Method Nasal Cannula 02/13/24 13:43 O2 Flow Rate 3 02/13/24 13:43 Course Vital Signs Vital signs: Vital Signs Temperature 98.4 F 02/13/24 13:43 Pulse Rate 89 02/13/24 13:43 Respiratory Rate 22 H 02/13/24 13:43 Blood Pressure 138/96 H 02/13/24 13:43 Pulse Oximetry 95 02/13/24 13:43 Oxygen Delivery Method Nasal Cannula 02/13/24 13:43 Oxygen Delivery Flow Rate 3 02/13/24 13:43 Temperature 98.4 F 02/13/24 13:43 Pulse Rate 89 02/13/24 13:43 Respiratory Rate 22 H 02/13/24 13:43 Blood Pressure 138/96 H 02/13/24 13:43 Pulse Oximetry 95 02/13/24 13:43 Oxygen Delivery Method Nasal Cannula 02/13/24 13:43 Oxygen Delivery Flow Rate 3 02/13/24 13:43 Medical Decision Making MDM Narrative Medical decision making narrative: Patient reports struggles with his breathing and illness over the past several months, noticed green productive sputum this morning with cough. Denies fever. History of COPD and was been placed on prednisone from his zone supervisor firearms for [place] inflammation and recently increased by his PCP for low back pain. Patient refused to have any IV placement or EKG monitoring. I am not pain for all that. Patient states he presents just for antibiotic prescription to help prevent any worsening infection given the fragile state of his lungs. We discussed at bedside of bacterial and viral processes, given his clinical history I do not mind prescribing him an antibiotic, but he should have this established more with his zone supervisor firearms or PCP regarding frequency and upper respiratory infections. The patient is aware that we cannot rule out any other causes of shortness of breath that may be related to Heart, lungs or other process in layman's terms at bedside. Patient states he is aware of the risk and is agreeable to just taking the prescription for antibiotic and will return if any symptoms worsen or new symptoms develop. I do not need a big workup at this time. Find any further testing such as EKG, chest x-ray or treatments. I got my puffer in the car. The patient is to followup with primary care physician/ zone supervisor firearms in next 2- 3 days or to return to the emergency department should any of the signs or symptoms worsen or new symptoms develop. Patient had questions answered. The patient agrees with the following Diagnosis and Treatment plan and the patient will be discharged home. Discharge Plan Discharge Stand Alone Forms: Portal Instructions Chief Complaint: Shortness of Breath/Dyspnea Clinical Impression: Upper respiratory infection, Bronchitis Patient Disposition: Home, Self-Care Time of Disposition Decision: 13:52 Condition: Good Prescriptions / Home Meds: New doxycycline hyclate 100 mg capsule 100 mg PO BID 10 Days Qty: 20 0RF No Action atorvastatin 40 mg tablet 40 mg PO DAILY ipratropium-albuterol 0.5 mg-3 mg(2.5 mg base)/3 mL solution for nebulization 3 ml INHALATION Q8H PRN (Reason: shortness of breath) lisinopril 5 mg tablet 5 mg PO DAILY metoprolol succinate 50 mg tablet extended release 24 hr 100 mg PO DAILY omeprazole 40 mg capsule,delayed release(DR/EC) 40 mg PO DAILY theophylline 400 mg tablet extended release 24 hr 400 mg PO Q24H roflumilast 500 mcg tablet 500 mcg PO DAILY Trelegy Ellipta 200-62.5-25 mcg blister with device 1 inh INHALATION Q24H aspirin 81 mg tablet,delayed release (DR/EC) 81 mg PO DAILY nitroglycerin 0.4 mg tablet, sublingual 0.4 mg sublingual Q5M PRN (Reason: chest pain) testosterone 50 mg/5 gram (1 %) gel 100 mg transdermal DAILY Patient Comments: naproxen 250 mg tablet 220 mg PO BID PRN (Reason: pain) mecobalamin (vitamin B12) 1,000 mcg tablet,chewable 1,000 mcg PO DAILY ascorbic acid (vitamin C) [C-500] 500 mg tablet 1 g PO DAILY cholecalciferol (vitamin D3) .Route ferrous sulfate [Feosol] 325 mg (65 mg iron) tablet 325 mg PO DAILY zinc 50 mg tablet 50 mg PO DAILY acetaminophen-codeine 300-30 mg tablet 1 tab PO Q6H PRN (Reason: pain) 5 Days Qty: 20 0RF azithromycin [Zithromax Z-Dl] 250 mg tablet See Rx Instructions .ROUTE .COMPLEX Qty: 6 0RF Rx Instructions: For 250 mg dose pack: take 500 mg today (day 1), then 250 mg for 4 days (days 2-5) nystatin 100,000 unit/mL suspension gabapentin 600 mg tablet meloxicam 15 mg tablet gabapentin 400 mg capsule methylprednisolone 4 mg tablets,dose pack zonisamide 25 mg capsule PO Eliquis 5 mg tablet clindamycin HCl 150 mg capsule 450 mg PO TID 7 Days Qty: 63 0RF bmx solution 10 ml PO Q8H PRN (Reason: sore throat) 10 Days Qty: 150 0RF Rx Instructions: 50mL liquid benadryl, 50mL maalox, 50mL lidocaine mixed; 10mL gargled and swallowed q8hr prn sore throat Print Language: Korean Instructions: Upper Respiratory Infection (ED) Additional Instructions: Keep follow up with pcp Please return to ER Your symptoms worsen or change Referrals: Hu Bunn DO [Physician] - As soon as possible Discharge Date/Time: 02/13/24 14:02
--- OUTSIDE RECORDS SUMMARY | 2024-02-13 14:03 | XMS_ITS | CCD ---
Author Organization [facility] Care Team Providers Care Grain Distributor Name Role Phone ERICK MELLISA STOCLARISSAER Unavailable Unavailab le SYSTEM, PROVIDER NOT IN [...] Unavail able SAMSA ., DARNELL Admitting Unavailable [facility] Care Unavailable SAMSA ., DARNELL Attending Unavailable SAMSA ., DARNELL Consulting Unavailable SAMSA ., DARNELL Admitting Unavailable [facility] [place] Care Unavailable SAMSA ., DARNELL Attending Unavailable SAMSA ., DARNELL Consulting Unavailable MELINA GARZA Consulting Unavailable [facility] [place] Care Unavailable SAMSA ., DARNELL Attending Unavailable SAMSA ., DARNELL Consulting Unavailable SAMSA ., DARNELL Admitting Unavailable [facility] Primary Care Unavailable DR ALEYDA DYER Consulting Unavailable SAMSA ., DARNELL Attending Unavailable SAMSA ., DARNELL Admitting Unavailable SAMSA ., DARNELL Consulting Unavailable CARLOS LARA Attending Unavailable Medications Completed/Discontinued Medications Medication Drug Class(es) [...] [Coronary atherosclerosis of unspecified type of vessel, nikolai or graft] Chronic Essential hypertension (4 sources) [...] Episodic Unclassified (1 source) Neck Pain / [id number]() Onset: 8 Unclassified (1 source) Stiffness / 343() Onset: 8 Unclassified (1 source) Back Pain / 12() Onset: 8 Unclassified (1 source) Upper Extremity Weakness / [id number]() Onset: 8 Past or Other Problems Problem Classification Problem Date Documented Da te Episodic/Chronic Screening and history of mental health and substance abuse codes (1 source) Personal history of nicotine dependence; Translations: [PERSONAL HISTORY OF NICOTINE DEPEND] Onset: 04-29-2022 Episodic Results Test Name Value Interpretation Reference Range Facility THEOPHYLLINEon 12-30-2022 THEOPHYLLINE 18.0 ug/mL Normal 10.0-20.0 [facility] Comment on above: Performed By: #### T ADALID #### [facility] [address], [place] [address] Dr. Karen Lee THEOPHYLLINEon 12-17-2022 THEOPHYLLINE 8.3 ug/mL Critically low 10.0-20.0 [facility] Comment on above: Performed By: #### T ADALID #### [facility] [address] [id number] Karen Lee Blood Pressure Cuff Sizeon [...] pulmonary disease) (496) (J44.9) Provider Impressions Mr. Causey has severe COPD but he has a homogeneous distribution on chest CT and would not benefit from surgical lung volume reduction. We will speak to Dr. Peña about the neck steps. History of Present Illness Mr. Causey is referred for consideration of LVRS. He [...] Activated Vitals Vital Signs Recorded: 29May2022 02:58PM Wmgpvwmvkdl74.2 F Heart Rate91 Phmwyktwtzk34 Vrgocvyv738 Kqxgmkpgf83 Blood Pressure Cuff SizeLarge Height5 ft 7.32 in Mykucy551 lb 7 oz BMI Yksbcpjysm82.15 kg/m2 BSA Calculated2.19 Tobacco Useb) No Falls Screening (Age 18+)a) No falls within the last year O2 Droeywjuzf34, Nasal Cannula Pain Scale7 Physical Exam The [...] May 29 2022 3:24PM EST (Author) Normal [employer] Referral Letteron 022 Referral Letter Mr. Causey is referred for consideration of LVRS. He [...] severe COPD with a homogeneous distribution Mr. Causey has severe COPD but he has a homogeneous distribution on chest CT and would not benefit from surgical lung volume reduction. We will speak to Dr. Peña about the neck steps. Signatures Electronically signed by : Uriel Griffith MD; May 29 2022 3:24PM EST (Author) Normal [employer] CT LUNG CANCER SCREENINGon 0 04-26-2022 CT [...] by: ALEYDA DYER Date: 2022-04-26 16:20 Normal [facility] HEMOGLOBINon 04-26-2022 Hemoglobin (Bld) [Mass/Vol] 13.6 g/dL Critically low 14.0-18.0 [facility] Comment on above: Performed By: #### H GB #### [facility] [address] [address] [address] Karen Lee Progress Noteson 06-04-2018 Protein mass conc [facility]Progress Notes by Jacquelyn Rivera PT [...] Pt self discharged with last txsession with PUMP OILER.Patient is being discharged due to not returning to therapy and/or Plan of Care being .Recommend patient continue with HEP previously instructed on during therapy as appropriate.Patient may be reinstated in therapy upon new evaluation and orders from the physician.Thank You. [facility] Progress Noteson 04-23-2018 Protein mass conc Encounter Department [facility]ERAPYProgress Notes by Berlin Valle PTA at 04/23/2018 9:00 AMAuthor: Berlin Valle PTAService: (none)Author Type: Physical Therapy AssistantFiled: 04/23/2018 9:46 AMEncounter Date: 04/23/2018Status: SignedEditor: Berlin Valle PTA (Library Associate)Physical Therapy Treatment NoteVisit Number: 5Encounter diagnosis:ICD-10-CM1.Cervical giaM54.22.Headache in back of axoaL09Ogizljt Medical Diagnosis:SUBJECTIVE: Pt requests today being his [...] t-band- Scap retract x15- B UE ext r50Sori tucks x15GTB rows 1v19Vkrkmz- STM along c-spine paraspinals, UT, and levator [...] in rotation and SB without increase in pain.Usp Goals: LTG to be met by 06/08/18 [...] 10Total Treatment Time: 25 PT Treatment Normal [facility] Progress Noteson 04-21-2018 Protein mass conc Encounter [facility] THERAPYProgress Notes by Berlin Valle PTA at 04/21/2018 9:00 AMAuthor: Berlin Valle PTAService: (none)Author Type: Physical Therapy AssistantFiled: 04/21/2018 9:46 AMEncounter Date: 04/21/2018Status: SignedEditor: Berlin Valle PTA (Library Associate)Physical Therapy Treatment NoteVisit Number: 4Encounter diagnosis:ICD-10-CM1.Cervical giaM54.22.Headache in back of xdhnP62Dvktzla Medical Diagnosis: CervicalgiaSUBJECTIVE:Complia nce with HEP: Pt [...] t-band- Scap retract x15- B UE ext r77Mttp tucks x15GTB rows 1q42Wlpwcb- STM along c-spine paraspinals, UT, and levator [...] in rotation and SB without increase in pain.Food And Beverage Coordinator Goals: LTG to be met by 06/08/18 [...] Time: 17Total Treatment Time: 32 PT Treatment [facility] Progress Noteson 04-16-2018 Protein mass conc [facility]counter [facility]YProgress Notes by Collette Villanueva PTA at 04/16/2018 9:00 AMAuthor: Collette Villanueva PTAService: (none)Author Type: Physical Therapy AssistantFiled: 04/16/2018 12:11 PMEncounter Date: 04/16/2018Status: SignedEditor: Collette Villanueva PTA (Library Associate)Physical Therapy Treatment NoteVisit Number: 3Encounter diagnosis:ICD-10-CM1.Cervical giaM54.22.Headache in back of mlcmW71Sujxgyq Medical Diagnosis: CervicalgiaSUBJECTIVE:Complia nce with HEP: Patient [...] pain/symptomreduction.Tractio n - Cervical traction performed at 25/# for pain/symptom reduction.Onset Date: 2 weeks agoSurgical [...] t-band- Scap retract x15- B UE ext c57Xvjg tucks x15GTB rows 2q30Xyxjgm- STM along c-spine paraspinals, UT, and levator scap regions- Suboccipital releaseHEP: chin tuck, UT and LS stretch, scap squeeze.Mechanical traction 18 -10 intermittent 10 minutes. Mechanical traction 25 -18 intermittent 15minutes. Modalities- Traction 25/# x15'Education completed: Education completed with patient Patient [...] in rotation and SB without increase in pain.Usp Goals: LTG to be met by 06/08/18 [...] Time: 28Total Treatment Time: 43 PT Treatment [facility] Progress Noteson 04-10-2018 Protein mass conc Encounter [facility]YProgress Notes by Berlin Valle PTA at 04/10/2018 9:00 AMAuthor: Berlin Valle PTAService: (none)Author Type: Physical Therapy AssistantFiled: 04/10/2018 10:21 AMEncounter Date: 04/10/2018Status: SignedEditor: Berlin Valle PTA (Library Associate)Physical Therapy Treatment NoteVisit Number: 2Encounter diagnosis:ICD-10-CM1.Cervical giaM54.22.Headache in back of ytukM97Jiorgrv Medical Diagnosis: CervicalgiaSUBJECTIVE:Complia nce with HEP: Pt [...] UT stretch 3x 30'Chin tucks x15GTB rows 9u45PRQ: chin tuck, UT and LS stretch, scap [...] in rotation and SB without increase in pain.Usp Goals: LTG to be met by 06/08/18 [...] Time: 30Total Treatment Time: 45 PT Treatment [facility] Progress Noteson 04-08-2018 Protein mass conc Encounter Department [facility]ERAPYProgress Notes by Jacquelyn Rivera PT at 04/08/2018 1:45 PMAuthor: Jacquelyn Rivera PTService: (none)Author Type: Physical TherapistFiled: 04/08/2018 6:47 PMEncounter Date: 04/08/2018Status: SignedEditor: Jacquelyn Rivera PT (Physical Therapist)Physical Therapy EvaluationEncounter diagnosis:ICD-10-CM1.Cervical giaM54.22.Headache in back of qkjuY31Fcicpcolr provider: Mellisa Clarke,*Primary Medical Diagnosis: CervicalgiaPlan of [...] Home: 15Prior Level of Functioning: Level of [place]: [facility] Level of Functioning: Outcome Score: NDI (26 raw score NDI, 52% disability) Functional deficits: reports no functional deficits, able to do everything just withincreased pain. Level of [place]: Modified IndependentSleep Status/Sleep Hygiene: Preferred Sleep Position: [...] codes)G8978 Mobility Current Status; Severity: CK 40-59% hdvxebkwF0872 Mobility Goal Status; Severity: CI 1-19% impairedOutcome measure(s)/Test(s) used/Result(s): 52% disability on NDI.Clinical Judgment: Moderate to severe impairement, decreased neck ROM and strength, tenderness totrigger points moderateNew Category to Juxtzb-Uo-Ytpv only?:NoEvaluation Breakdown DescriptionPatient HistoryComorbiditiesEnvironme ntal/Personal factorsLearning/CognitionDome stic [...] in rotation and SB without increase in pain.Food And Beverage Coordinator Goals: LTG to be met by 06/08/18 [...] Time: 60Time in: 1:44Time Out: 2:45 [facility] Vital Sign[facility] Date Time Vital Sign [...] Date Encounter Type Care Provider Facility Start: 01-21-2024 End: 01-21-2024 ambulatory CARLOS LARA Not Available Start: 12-30-2022 End: 12-31-2022 ambulatory DARNELL ALICEA . Facility: Start: 12-17-2022 End: 12-18-2022 ambulatory DARNELL ALICEA . Facility: Start: 06-17-2022 AUDIT Referring Prov ider Unknown [facility] Work Phone: Start: 05-29-2022 Office outpatient ne w 45 minutes Referring Provider Unknown [facility] Work Phone: Start: 05-29-[address] Popeye [facility]ia [facility]ity:[facility] Start: 05-21-2022 End: 08-14-2022 ambulatory [facility] Facility: Start: 04-26-2022 End: 04-27-2022 [facility] Facility: Start: 04-23-2018 End: 04-23-2018 Patient encounter [place] [facility] Start: 04-21-2018 End: 04-21-2018 Patient encounter [place] [facility] Start: 04-16-2018 End: 04-16-2018 Patient encounter COLLETTE German VILLANUEVA [facility] Start: 04-10-2018 End: 04-10-2018 Patient encounter [place] [facility] Start: 04-08-2018 End: 04-08-2018 Patient encounter MELLISA CLARKE [facility] Patient encounter status Referring Provider Unknown [facility] Work Phone: Procedures Date Procedure Procedure Detail Performing Clinician Cataract surgery Referring P ruthie Unknown Coronary artery bypass graft Referring Provider Unknown Hernia repair Referring Prov ider Unknown Prosthetic arthroplasty of shoulder Referring Provider Unknown Total replacement of hip Ref erring Provider Unknown Payers Date Payer Category Payer Unknown [id number] [id number] 1960 Unknown [id number] [id number] [id number] 1960 Unknown [id number] 2.16.84 [id number] 1960 Unknown [id number] 2.16.84 [id number] 1960 Unknown [id number] 2.16.84 [id number] 1960 Unknown [id number] 2.16.84 [id number] 1959 Medicare [id number] Unknown Social History Date Type Detail Facility Social alcohol use Social alcohol use - [place] [facility] Work Phone: History of Present illness Narrative Note Date & Type Note Facility History of Present illness Narrative Mr. Causey is referred for consideration of LVRS. 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 He is on 3 L nasal cannula oxygen chronically. He is set to begin pulmonary rehabilitation. [facility] Work Phone: History of Present illness Narrative Note Date & Type Note Facility History of Present illness Narrative Mr. Causey is referred for consideration of LVRS. 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 He is on 3 L nasal cannula oxygen chronically. He is set to begin pulmonary rehabilitation. [facility] Work Phone: History of Present illness Narrative Note Date & Type Note Facility History of Present illness Narrative Mr. Causey is referred for consideration of LVRS. 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 He is on 3 L nasal cannula oxygen chronically. He is set to begin pulmonary rehabilitation. [facility] Work Phone: Summary Purpose Family History No [...] section and content) DATE CREATED AUTHOR 07/04/2018 [facility] DATE CREATED AUTHOR AUTHOR'S ORGANIZ ATION 06/09/2022 [facility] DATE CREATED AUTHOR AUTHOR'S ORGANIZ ATION 06/09/2022 [employer] DATE CREATED AUTHOR AUTHOR'S ORGANIZ ATION 02/14/2023 [facility] DATE CREATED AUTHOR AUTHOR'S ORGANIZ ATION 01/23/2024 [facility] dical Specialists [facility] FOR RECORDS PERTAINING TO PATIENTS WHO ARE [...] BE BASED ON THE PRIMARY CLINICAL RECORDS. [facility] [employer] provides no warranty or guarantee of the accuracy or completeness of information in this document.
== END 2024-02-13 14:02 | disposition home or self-care (01) ==
LOC: ER 13:57
PROVIDERS: Emergency Provider Emergency Medicine; PCP Nurse Practitioner Primary Care
DX: J06.9 Acute upper respiratory infection, unspecified (principal); J44.9 Chronic obstructive pulmonary disease, unspecified; Z99.81 Dependence on supplemental oxygen; Z87.891 Personal history of nicotine dependence
CPT/HCPCS: 99283

== ENCOUNTER 2024-05-24 12:23 | Outpatient (OUT) | payer MEDICARE, SELFPAY ==
--- NOTE | 2024-05-24 12:30 | MR_ITS ---
The [address] [address] Patient Name: ELISE TABOR MRN: [id number] date: 1960 Sex: M Assigned Patient Location: MRI Current Patient Location: MRI Accession/Order Number: [id number] Exam Date: 05/24/2024 12:50 Report Date: 05/25/2024 11:02 At the request of: NON-STAFF PHYSICIAN Procedure: MR shoulder LT wo con EXAM: MR shoulder LT wo con HISTORY: Left shoulder pain and impingement syndrome. COMPARISON: None. TECHNIQUE: Multiplanar and multisequence imaging of the left shoulder was performed without contrast. FINDINGS: Moderate degenerative change involves the acromioclavicular joint with joint space narrowing, marginal osteophytes, and capsular hypertrophy. There is a small AC joint effusion. There is a type II acromion. A small amount of subacromial fluid is evident. There is mild to moderate diffuse rotator cuff tendinopathy. There is marked thinning of the distal supraspinatus with a full-thickness tear of the distal supraspinatus measuring approximately 2 cm in AP and transverse dimensions. The tear extends to the junction with the infraspinatus. There is mild to moderate atrophic change of the supraspinatus and infraspinatus muscles with some thinning of the infraspinatus as well. There is also mild to moderate tendinopathy of the subscapularis with thinning and low-grade partial-thickness articular sided tearing of the distal subscapularis tendon. The long head of the biceps tendon is not visualized from the biceps anchor to the bicipital groove consistent with a prior full-thickness tear of the biceps tendon proximally. Mild to moderate diffuse degenerative change involves the glenohumeral joint with articular cartilage loss, joint space narrowing, and spurring. There appears to be focal high-grade articular cartilage loss along the central aspect of the glenoid measuring 7 mm in diameter. There is a tear in the posterior labrum with fraying of the superior labrum. MR/MR shoulder LT wo con IMPRESSION: 1. There is mild to moderate rotator cuff tendinopathy with a full-thickness tear of the supraspinatus measuring approximately 2 cm in AP and transverse dimensions. There is also mild thinning of the distal infraspinatus tendon with mild to moderate fatty infiltration of the supraspinatus and to lesser extent infraspinatus muscles. 2. There is mild to moderate tendinopathy and low-grade partial-thickness articular sided tearing of the distal subscapularis. 3. Mild to moderate diffuse degenerative change involves the glenohumeral joint with focal high-grade articular cartilage loss along the central aspect of the glenoid measuring 7 mm in diameter. There is an associated tear of the posterior labrum. 4. Moderate degenerative change involves the acromioclavicular joint. 5. Prior full-thickness tear of the biceps tendon proximally. This could be a chronic finding. Electronically authenticated by: ZIYAD CASTILLO Date: 05/25/2024 11:02
== END 2024-05-24 12:24 | disposition home or self-care (01) ==
LOC: MRI 12:25
PROVIDERS: PCP Nurse Practitioner
DX: M75.42 Impingement syndrome of left shoulder (principal); S43.012A Anterior subluxation of left humerus, initial encounter
CPT/HCPCS: 73221

== ENCOUNTER 2024-08-16 12:53 | Outpatient (OUT) | payer MEDICARE, SELFPAY ==
[2024-08-16 13:13] LABS: Basophils Percent Auto 0.2 % (0.2-2.0); Eosinophils Absolute Auto 0.1 10^3/uL (0.0-0.7); Eosinophils Percent Auto 0.7 % (0.9-7.0); Hematocrit 40.6 % (42.0-54.0); Hemoglobin 13.4 g/dL (14.0-18.0); Immature Granulocytes Abs Auto 0.06 10^3/uL (0.00-0.03); Immature Granulocytes Pct Auto 0.5 % (0.0-0.5); Lymphocytes Absolute Auto 0.9 10^3/uL (1.2-3.8); Lymphocytes Percent Auto 7.4 % (20.5-60.0); Mean Corpuscular Hemoglobin 32.5 pg (25.9-34.0); Mean Corpuscular Volume 98.5 fL (80.0-94.0); Mean Platelet Volume 8.8 fL (9.5-13.5); Monocytes Absolute Auto 0.7 10^3/uL (0.3-0.8); Monocytes Percent Auto 5.8 % (1.7-12.0); Neutrophils Absolute Auto 9.7 10^3/uL (1.4-6.5); Neutrophils Percent Auto 85.4 % (43.0-75.0); Platelet Count 122 10^3/uL (150-450); Red Blood Count 4.12 10^6/uL (4.70-6.10); Red Cell Distribution Width 13.7 % (11.0-15.0); White Blood Count 11.4 10^3/uL (4.0-11.0)
== END 2024-08-16 12:54 | disposition home or self-care (01) ==
PROVIDERS: PCP Nurse Practitioner; Visit Provider Internal Medicine
DX: J43.2 Centrilobular emphysema (principal)
CPT/HCPCS: 36415; 85025

== ENCOUNTER 2024-08-19 13:31 | Outpatient (OUT) | payer MEDICARE, SELFPAY ==
--- OUTSIDE RECORDS SUMMARY | 2024-08-19 13:51 | XMS_ITS | CCD ---
Author Organization [facility] Care Team Providers Care Content Development Manager Name Role Phone ERICK MELLISA STOHLER Unavailable Unavailab le SYSTEM, PROVIDER NOT IN Unavailable Unavaila ble YUPPA, BERLIN D Unavailable Unavailable CLARKE, MELLISA STOHLER Unavailable Unavailab le SYSTEM, PROVIDER NOT IN Unavailable Unavaila ble COLLETTE VILLANUEVA Unavailable Unavailable CLARKE, MELLISA STOHLER Unavailable Unavailab le SYSTEM, PROVIDER NOT IN Unavailable Unavaila ble YUPPA, BERLIN D Unavailable Unavailable CLARKE, MELLIAS STOHLER Unavailable Unavailab le SYSTEM, PROVIDER NOT IN Unavailable Unavaila ble YUPPA, BERLIN D Unavailable Unavailable CLARKE, MELLISA STOHLER Unavailable Unavailab le SYSTEM, PROVIDER NOT IN Unavailable Unavaila ble Unknown, Referring Provider Unavailable Unav Dr. Popeye Monique Referring Unavailable UNKNOWN, PCP Primary Care Unavailable Dr. URIEL GRIFFITH Attending Unavail able SAMSA ., DARNELL Admitting Unavailable [facility] Primary Care Unavailable SAMSA ., DARNELL Attending Unavailable SAMSA ., DARNELL Consulting Unavailable SAMSA ., DARNELL Admitting Unavailable [facility] Primary Care Unavailable SAMSA ., DARNELL Attending Unavailable SAMSA ., DARNELL Consulting Unavailable KACIE DEL REAL Unavailable [facility] Primary Care Unavailable SAMSA ., DARNELL Attending Unavailable SAMSA ., DARNELL Consulting Unavailable SAMSA ., DARNELL Admitting Unavailable [facility] Primary Care Unavailable DR DAVID DYER Consulting Unavailable SAMSA ., DARNELL Attending Unavailable SAMSA ., DARNELL Admitting Unavailable SAMSA ., DARNELL Consulting Unavailable [employer], Pauly Unavailable CARLOS HALL Attending Unavailable CARLOS HALL Attending Unavailable DAVID FISHER Attending Unavailable PREET BILL Referring Unavailable CARLOS HALL Attending Unavailable Kacie Del Real MD Primary Care Provider [facility] [employer] [facility] [place] Primary Care Provider EMELY CANTU Referring Unavailable KACIE DEL REAL Primary Care Unavailable GILLIAN TAYLOR Attending Unavailable KACIE DEL REAL Referring Unavailable HAMLET PAULY Primary Care Unavailable BENNY FUENTES Attending Unavailable Allergies Allergy Classification Reported Allergen(s) Allergy Type Date of Onset Reaction(s) Facility (4 sources) Gluten Propensity to adverse reactions 2 GI intolerance [facility] (4 sources) Isosorbide Dinitrate Drug Allergy 2 Headache [facility] (4 sources) Isosorbide; Translations: [ISOSORBIDE MONONITRATE] Drug Allergy 2 Headache [facility] (4 sources) Wheat gluten extract; Translations: [GLUTEN] Drug Allergy 2 [facility] (1 source) ALLERGIES NOT ON FILE; Translations: [ALLERGIES NOT ON FILE] Propensity to adverse reactions (disorder) [facility] Repository Medications Current Medications Medication Drug Class(es) Dates Sig (Normalized) Sig (Original) acetaminophen 300 mg / codeine phosphate 30 mg oral tablet (4 sources) Opioid Agonist Start: 06-12-2023 take 1 tablet by mouth every six hours as needed for pain acetaminophen-code ine (Tylenol w/ Codeine #3) 300-30 MG tablet take 1 tablet by mouth every 6 hours NEEDED FOR PAIN for 5 days 06/12/2023 Active [id number] 200 actuat albuterol 0.09 mg/actuat metered dose inhaler (14 sources) beta2-Adrenergic Agonist take 2.5 mg by inhalation every four hours as needed for wheezing albuterol (PROVENTIL) 5 mg/mL nebulizer solution Inhale 0.5 mL (2.5 mg total) by nebulization every 4 (four) hours as needed for wheezing. Active take 2 puff(s) by in halation every six hours as needed for wheezing albuterol (PROVENTIL HFA;VENTOLIN HFA) 9 0 mcg/actuation inhaler Inhale 2 puffs every 6 (six) hours as needed for wheezing. Active albuterol (5 MG/ ML) 0.5% nebulizer solution Take 2.5 mg by nebulization every 4 (four) hours if needed for wheezing or shortness of breath. Active take 2 puff(s) by in halation every six hours for wheezing albuterol HFA 90 mcg/act inhaler Inhale 2 puffs every 6 (six) hours if needed for wheezing or shortness of breath. Active albuterol 0.833 mg/ml / ipratropium bromide 0.167 mg/ml inhalation solution (11 sources) Anticholinergic, beta2-Adrenergic Agonist Start: 02-20-2022 ipratropium-albuteroL (DUONEB) 0.5 mg-3 mg(2.5 mg base)/3 mL nebulizer 02/20/2022 Active Start: 02-20-2022 Ipratropium-Al buterol 0.5-2.5 (3) MG/3ML Inhalation Solution Quantity: 1350 Refills: 0 Ordered: 20-Feb-2022 DO Start : 20-Feb-2022 Active apixaban 5 mg oral tablet (7 sources) Factor Xa Inhibitor Start: 06-04-2023 take 1 tablet by mouth in the morning, then take 1 tablet by mouth at bedtime apixaban (ELIQUIS) 5 mg tablet Take 1 tablet (5 mg total) by mouth in the morning and 1 tablet (5 mg total) before bedtime. 180 tablet 1 02/19/2024 Active ascorbic acid 1000 mg oral tablet (7 sources) Vitamin C take 1 tablet by mouth in the morning ascorbic acid, vitamin C, (VITAMIN C) 1000 mg tablet Take 1 tablet (1,000 mg total) by mouth in the morning. Active aspirin 81 mg delayed release oral tablet (7 sources) Platelet Aggregation Inhibitor, Nonsteroidal Anti-inflammatory Drug Start: 07-25-2022 take 1 tablet by mouth in the morning aspirin 81 mg Indications: Coronary artery disease involving coronary bypass graft of three affiliated heart without angina pectoris , Paroxysmal atrial fibrillation (CMS-HCC) , Aneurysm of ascending aorta without rupture (CMS-HCC) , Hx of CABG , History of maze procedure Take 1 tablet (81 mg total) by mouth in the morning. 90 tablet 3 07/25/2022 Active atorvastatin 40 mg oral tablet (7 sources) HMG-CoA Reductase Inhibitor Start: 02-19-2024 take 1 tablet by mouth in the morning atorvastatin (LIPITOR) 40 mg tablet Indications: Coronary artery disease involving coronary bypass graft of three affiliated heart without angina pectoris , Hx of CABG , Paroxysmal atrial fibrillation (CMS-HCC) , Aneurysm of ascending aorta without rupture (CMS-HCC) , History of maze procedure Take 1 tablet (40 mg total) by mouth in the morning. 90 tablet 1 02/19/2024 Active azithromycin 250 mg oral tablet (4 sources) Macrolide Antimicrobial take 1 tablet by mouth once daily azithromycin (Zithromax) 250 MG tablet Take 250 mg by mouth Daily Active cholecalciferol 0.025 mg oral tablet (11 sources) Vitamin D take 1 tablet by mouth in the morning cholecalciferol 1,000 units tablet Take 1 tablet (1,000 Units total) by mouth in the morning. Active cholecalciferol (Vitamin D-3) 50 MCG (1999 UT) capsule 1 capsule 1 (one) time each day at the same time. Active dicyclomine hydrochloride 20 mg oral tablet (4 sources) Anticholinergic Start: 04-01-2023 take 1 tablet by mouth three times daily for pain dicyclomine (Bentyl) 20 MG tablet take 1 tablet by mouth three times a day if needed for abdominal pain 04/01/2023 Active ferrous sulfate 325 mg delayed release oral tablet (7 sources) take 1 tablet by mouth once daily at breakfast ferrous sulfate 325 (65 FE) mg EC tablet Take 65 mg by mouth daily with breakfast. Active 30 actuat fluticasone furoate 0.1 mg/actuat / umeclidinium 0.0625 mg/actuat / vilanterol 0.025 mg/actuat dry powder inhaler (8 sources) Anticholinergic, Corticosteroid, beta2-Adrenergic Agonist Start: 03-15-2022 take 1 puff(s) by inhalation in the morning Trelegy Ellipta 100-62.5-25 MCG/ACT aerosol powder Inhale 1 puff in the morning. 03/15/2022 Active Start: 03-15-2022 Trelegy Ellipt a 100-62.5-25 MCG/INH AEPB Quantity: 180 Refills: 0 Ordered: 15-Mar-2022 DO Start : 15-Mar-2022 Active Rdnkdaqpwjv-Exluzrrqi-Yuohsq 200-62.5-25 MCG/ACT aerosol powder (4 sources) Start: 11-19-2022 take 1 puff(s) by inhalation once daily Xnusocaoeez-Xzstoobtj-Rrevkk 200-62.5-25 MCG/ACT aerosol powder Inhale 1 puff 1 (one) time each day. 11/19/2022 Active tofukbrvzit-beajyxzyw-jhrtui e r (TRELEGY ELLIPTA) 200-62.5-25 mcg blister with device (3 sources) Start: 03-15-2022 guyfqbyhvkm-uldlxwuzl-mktnqd e r (TRELEGY ELLIPTA) 200-62.5-25 mcg blister with device 1 puff in the morning. 03/15/2022 Active gabapentin 600 mg oral table t (7 sources) Anti- epile ptic Agent Start: 03-30-2022 take 1 tablet by mouth three times daily gabapentin (NEURONTIN) 600 mg tablet Take 1 tablet (600 mg total) by mouth 3 (three) times a day. 03/30/2022 Active Start: 03-30-2022 Gabapentin 300 MG Oral Capsule Quantity: 270 Refills: 0 Ordered: 30-Mar-2022 DO Start : 30-Mar-2022 Active 24 hr isosorbide mononitrate 30 mg extended release oral tablet (4 sources) Nitrate Vasodilator Start: 06-13-2022 take 1 tablet by mouth in the morning, then take 1 tablet by mouth every twenty-four hours isosorbide mononitrate ER (Imdur) 30 MG 24 hr tablet Take 30 mg by mouth in the morning. 06/13/2022 Active lisinopril 5 mg oral tablet (11 sources) Angiotensin Converting Enzyme Inhibitor Start: 02-19-2024 take 1 tablet by mouth in the morning lisinopriL (PRINIVIL,ZESTRIL) 5 mg tablet Indications: Coronary artery disease involving coronary bypass graft of three affiliated heart without angina pectoris , Hx of CABG , Paroxysmal atrial fibrillation (CMS-HCC) , Aneurysm of ascending aorta without rupture (CMS-HCC) , History of maze procedure Take 1 tablet (5 mg total) by mouth in the morning. 90 tablet 1 02/19/2024 Active Start: 03-14-2022 Lisinopril 5 M G Oral Tablet Quantity: 90 Refills: 0 Ordered: 14-Mar-2022 DO Start : 14-Mar-2022 Active Ann Marie 500 MG capsule (4 sources) Ann Marie 500 MG caps ule as directed Orally Active 24 hr metoprolol succinate 50 mg extended release oral tablet (11 sources) beta-Adrenergic Melonie Start: 06-25-2023 metoprolol succinate XL (TOPROL XL) 50 mg 24 hr tablet Indications: Coronary artery disease involving coronary bypass graft of three affiliated heart without angina pectoris , Hx of CABG , Paroxysmal atrial fibrillation (CMS-HCC) , Aneurysm of ascending aorta without rupture (CMS-HCC) , History of maze procedure Take 100 mg in the morning and 50 mg at night 270 tablet 3 06/25/2023 Active Start: 03-23-2022 take 1 tablet by lamont th every twenty-four hours Metoprolol Succinate ER 50 MG Oral Tablet Extended Release 24 Hour Quantity: 135 Refills: 0 Ordered: 23-Mar-2022 DO Start : 23-Mar-2022 Active naproxen sodium 220 mg oral tablet (4 sources) Nonsteroidal Anti-inflammatory Drug naproxen sodium (Aleve) 220 MG tablet every 12 (twelve) hours. Active 12 hr naproxen sodium 220 mg / pseudoephedrine hydrochloride 120 mg extended release oral tablet (7 sources) alpha-Adrenergic Agonist, Nonsteroidal Anti-inflammatory Drug naproxen-pseudoep hedri ne 220-120 mg tablet extended release 12 hr Take by mouth. Active nitroglycerin 0.4 mg sublingual tablet (8 sources) Nitrate Vasodilator Start: 4 End: nitroglycerin (NITROSTAT) 0.4 MG SL tablet Indications: Coronary artery disease involving coronary bypass graft of three affiliated heart without angina pectoris , Paroxysmal atrial fibrillation (CMS-HCC) , Aneurysm of ascending aorta without rupture (CMS-HCC) , Hx of CABG , History of maze procedure DISSOLVE 1 TABLET UNDER THE TONGUE NEEDED FOR CHEST PAIN- MAY REPEAT EVERY 5 MINUTES IF NEEDED ( MAX 3 DOSES.- IF NO RELIEF CALL 911) 25 tablet 11 08/03/2024 Active Start: 07-25-2022 nitroglycerin (Nitrostat) 0.[address] 0.4 mg under the tongue every 5 (five) minutes if needed for chest pain. 07/25/2022 Active ofloxacin 3 mg/ml otic solution (4 sources) Quinolone Antimicrobial Start: 02-17-2023 ofloxacin (Floxin) 0.3 % otic solution Indications: Otorrhea of right ear Administer 5 drops into the right ear in the morning and 5 drops before bedtime. 10 mL 02/17/2023 Active omeprazole 40 mg delayed release oral capsule (11 sources) Proton Pump Inhibitor Start: 03-19-2022 take 1 capsule by mouth in the morning omeprazole (PriLOSEC) 40 mg capsule Take 1 capsule (40 mg total) by mouth in the morning. 03/19/2022 Active Start: 03-19-2022 Omeprazole 40 MG Oral Capsule Delayed Release Quantity: 90 Refills: 0 Ordered: 19-Mar-2022 DO Start : 19-Mar-2022 Active Oxygen (3 sources) oxygen Inhale continuously. Active predniSONE 20 mg oral tablet (4 sources) take 1 tablet by mouth once daily predniSONE (Deltasone) 20 MG tablet Take 20 mg by mouth Daily Active pregabalin 150 mg oral capsule (4 sources) Start: 024 take 1 capsule by mouth in the morning, then take 1 capsule by mouth in the evening, then take 1 capsule by mouth at bedtime pregabalin (Lyrica) 150 MG capsule Indications: DDD (degenerative disc disease), lumbar , Lumbosacral radiculopathy Take 1 capsule (150 mg) by mouth in the morning and 1 capsule (150 mg) in the evening and 1 capsule (150 mg) before bedtime. 270 capsule 05/17/2024 Active roflumilast 0.5 mg oral tablet (11 sources) Phosphodiesterase 4 Inhibitor Start: 022 take 1 tablet by mouth in the morning DALIRESP 500 mcg tablet Take 1 tablet (500 mcg total) by mouth in the morning. 03/15/2022 Active saw palmetto (Serenoa repens) 450 MG capsule (4 sources) saw palmetto (Serenoa repens) 450 MG capsule as directed Orally Active soybean lecithin 1200 mg oral capsule (4 sources) take 1 capsule by mouth once daily Lecithin 1200 MG capsule Take 1 capsule every day by oral route. Active SUMAtriptan 100 mg oral tablet (4 sources) Serotonin-1b and Serotonin-1d Receptor Agonist SUMAtriptan (Imitrex) 100 MG tablet PLEASE SEE ATTACHED FOR DETAILED DIRECTIONS Active TESTOSTERONE, BULK, MISC (3 sources) TESTOSTERONE, BU LK, MISC by miscellaneous route. 100 mg 1 tablet daily Active theophylline 400 mg extended release oral tablet (7 sources) Methylxanthine Start: 023 take 1 tablet by mouth in the morning, then take 1 tablet by mouth every twenty-four hours at bedtime theophylline ER (Uniphyl) 400 MG 24 hr tablet Take 400 mg by mouth in the morning and 400 mg before bedtime. 01/16/2023 Active take 1 capsule by mo uth every twenty-four hours in the morning theophylline (BRYAN-24) 400 MG 24 hr capsule Take 1 capsule (400 mg total) by mouth in the morning. Active vitamin b12 1 mg oral tablet (11 sources) Vitamin B12 take 1 tablet by mouth in the morning cyanocobalamin (vitamin B-12) 1000 MCG tablet Take 1 tablet (1,000 mcg total) by mouth in the morning. Active cyanocobalamin ( Vitamin B-12) 500 MCG tablet 1 (one) time each day at the same time. Active zinc gluconate 50 mg oral tablet (7 sources) take 1 tablet by lamont th in the morning zinc gluconate 50 mg tablet Take 1 tablet (50 mg total) by mouth in the morning. Active Completed/Discontinued Medications Medication Drug Class(es) Dates Sig (Normalized) Sig (Original) lysine 500 mg oral tablet (2 sources) End: 06-24-2024 take 1 tablet by mouth in the morning lysine 500 mg tablet Take 1 tablet (500 mg total) by mouth in the morning. 06/24/2024 Discontinued zonisamide 25 mg oral capsule (2 sources) Anti-epileptic Agent End: 06-24-2024 take 1 capsule by mouth in the morning, then take 1 capsule by mouth at bedtime zonisamide (ZONEGRAN) 25 mg capsule Take 1 capsule (25 mg total) by mouth in the morning and 1 capsule (25 mg total) before bedtime. 06/24/2024 Discontinued Problems Active Problems Problem Classification Problem Date Documented Da te Episodic/Chronic Aortic; peripheral; and visceral artery aneurysms (12 sources) Aneurysm of thoracic aorta; Translations: [Thoracic aneurysm without mention of rupture] Onset: 2 02-13-2023 Chronic Cardiac dysrhythmias (17 sources) Atrial fibrillation; Translations: [Atrial fibrillation] Onset: 2 02-13-2023 Chronic Chronic obstructive pulmonary disease and bronchiectasis (16 sources) Chronic obstructive lung disease; Translations: [Chronic airway obstruction, not elsewhere classified] Onset: 8 Resolved: 3 Chronic Complication of device; implant or graft (12 sources) Arteriosclerosis of coronary artery bypass graft; Translations: [Atherosclerosis of coronary artery bypass graft(s) without angina pectoris] Onset: 2 02-13-2023 Chronic Congestive heart failure; nonhypertensive (2 sources) Chronic systolic (congestive) heart failure; Translations: [Chronic systolic (congestive) heart failure] Onset: 4 Chronic Coronary atherosclerosis and other heart disease (8 sources) Coronary arteriosclerosis; Translations: [Coronary atherosclerosis of unspecified type of vessel, three affiliated or graft] Onset: 4 Chronic Disorders of lipid metabolism (6 sources) Mixed hyperlipidemia; Translations: [Mixed hyperlipidemia] Onset: 4 06-24-2024 Chronic Essential hypertension (10 sources) Hypertensive disorder; Translations: [Unspecified essential hypertension] Onset: 4 06-24-2024 Chronic Headache, including migraine (7 sources) Headache; Translations: [Occipital headache] Onset: 8 Resolved: 3 06-27-2023 Episodic Melanomas of skin (4 sources) H/O Malignant melanoma; Translations: [Personal history of malignant melanoma of skin] Episodic Other aftercare (4 sources) Encounter for therapeutic drug level monitoring; Translations: [ENC THERAPEUTC DRUG LEVL MONITORING] Onset: 3 Episodic Other aftercare (2 sources) care home (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 of 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; Translations: [care home (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 of 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] Onset: 4 Episodic Other and ill-defined heart disease (3 sources) Left ventricular cardiac dysfunction; Translations: [Heart disease, unspecified] Onset: 4 06-24-2024 Chronic Other and ill-defined heart disease (1 source) Heart disease, unspecified; Translations: [Heart disease, unspecified] Onset: 4 Chronic Other gastrointestinal disorders (4 sources) History of gastroesophageal reflux disease; Translations: [Personal history of other diseases of digestive system] Episodic Other gastrointestinal disorders (4 sources) H/O: gastrointestinal disease; Translations: [Personal history of other diseases of digestive system] Episodic Other hematologic conditions (4 sources) History of anemia; Translations: [Personal history of diseases of blood and blood-forming organs] Episodic Other nervous system disorders (4 sources) Neuropathy; Translations: [Polyneuropathy, unspecified] Onset: 4 01-20-2024 Chronic Other nervous system disorders (1 source) Carpal tunnel syndrome of left wrist; Translations: [Carpal tunnel syndrome, left upper limb] 06-08-2024 Chronic Other nervous system disorders (2 sources) Tremor; Translations: [Tremor, unspecified] 06-09-2024 Episodic Other nutritional; endocrine; and metabolic disorders (2 sources) Morbid (severe) obesity due to excess calories; Translations: [Morbid (severe) obesity due to excess calories] Onset: 4 Chronic Other nutritional; endocrine; and metabolic disorders (2 sources) Body mass index (BMI) 35.0-35.9, adult; Translations: [Body mass index (BMI) 35.0-35.9, adult] Onset: 4 Chronic Residual codes; unclassified (8 sources) History of maze procedure for atrial fibrillation; Translations: [Other specified postprocedural states] Onset: 2 02-13-2023 Episodic Spondylosis; intervertebral disc disorders; other back problems (6 sources) Degeneration of lumbar intervertebral disc; Translations: [DDD (degenerative disc disease), lumbar] Onset: 4 01-20-2024 Chronic Spondylosis; intervertebral disc disorders; other back problems (7 sources) Cervicalgia; Translations: [Neck pain] Onset: 8 Resolved: 3 06-27-2023 Episodic Unclassified (1 source) Neck Pain / [id number]() Onset: 8 Unclassified (1 source) Stiffness / 343() Onset: 8 Unclassified (1 source) Back Pain / 12() Onset: 8 Unclassified (1 source) Upper Extremity Weakness / [id number]() Onset: 8 Unclassified (1 source) Aneurysm of the ascending aorta, without rupture; Translations: [Aneurysm of the ascending aorta, without rupture] Onset: 4 Unclassified (1 source) Obesity, class 2; Translations: [Obesity, class 2] Onset: 4 Past or Other Problems Problem Classification Problem Date Documented Da te Episodic/Chronic Cardiac dysrhythmias (4 sources) Sinus tachycardia; Translations: [Tachycardia, unspecified] Onset: 01-22-2018 Resolved: 06-27-2023 06-27-2023 Episodic Other gastrointestinal disorders (4 sources) Celiac disease; Translations: [Celiac disease] Onset: 03-04-2019 Resolved: 06-27-2023 06-27-2023 Chronic Other nervous system disorders (4 sources) Polyneuropathy; Translations: [Polyneuropathy, unspecified] Onset: 06-27-2023 Resolved: 06-27-2023 06-27-2023 Chronic Other nervous system disorders (4 sources) Paresthesia; Translations: [Paresthesia of skin] Onset: 01-20-2024 01-20-2024 Episodic Screening and history of mental health and substance abuse codes (1 source) Personal history of nicotine dependence; Translations: [PERSONAL HISTORY OF NICOTINE DEPEND] Onset: 04-29-2022 Episodic Unclassified (1 source) Aneurysm of the ascending aorta, without rupture; Translations: [Aneurysm of the ascending aorta, without rupture] Onset: 08-16-2024 Unclassified (1 source) Obesity, class 2; Translations: [Obesity, class 2] Onset: 08-16-2024 Results Test Name Value Interpretation Reference Range Facility Office Visiton 08-16-2024 Follow-up visit [id number] Armando Tabor 1960 M Date Provider Department Center 08/16/2024 [id number] FUENTES CAROL ANN Ledbetter [facility] Family History Problem Relation Age of Onset Coronary artery disease Mother Coronary artery disease Father Family Status - Relation Status Age at Mother Father Level of Service:14571 [place] OFFICE/OUTPATIENT NEW MODERATE MDM 45 MINUTES Reason for Visit and Comments: Atrial Fibrillation [80] - Had EKG at last apt with [facility] in Jun 2024. Denies chest pain and bleeding on Eliquis. Coronary Artery Disease [187] - CABG and MAZE in 2016 Hypertension [582355] Hyperlipidemia [182] COPD [313] - Sees Dr. Oni Marrero [facility] POCT EKGOrdered By: Juana Hercules on 06-24-2024 [employer] [facility] EMG 1 Extremeityon 4 [facility] 7-8 Nerveson 06-08-2024 [facility] THEOPHYLLINEon 12-30-2022 THEOPHYLLINE 18.0 ug/mL Normal 10.0-20.0 [facility] Comment on above: Performed By: #### T ADALID #### [facility] [address] [place], [place] [address] Dr. Karen Lee THEOPHYLLINEon 12-17-2022 THEOPHYLLINE 8.3 ug/mL Critically low 10.0-20.0 [facility] Comment on above: Performed By: #### T ADALID #### [facility] [address] [place], [place] [address] Dr. Karen Lee Blood Pressure Cuff Sizeon [...] Activated Vitals Vital Signs Recorded: 29May2022 02:58PM Msytjwsvjrn71.2 F Heart Rate91 Gazahafxvih03 Whsqeexn650 Mosbmjgul76 Blood Pressure Cuff SizeLarge Height5 ft 7.32 in Bgzxby992 lb 7 oz BMI Ypugffjlqi61.15 kg/m2 BSA Calculated2.19 Tobacco Useb) No Falls Screening (Age 18+)a) No falls within the last year O2 Jdqhbkrosc12, Nasal Cannula Pain Scale7 Physical Exam The [...] May 29 2022 3:24PM EST (Author) Normal [facility] Referral Letteron 022 Referral Letter Mr. Tabor [...] May 29 2022 3:24PM EST (Author) Normal [facility] CT LUNG CANCER SCREENINGon 0 04-26-2022 CT [...] aorta, not significantly changed. Electronically authenticated by: DAVID DYER Date: 2022-04-26 16:20 Normal [facility] HEMOGLOBINon 04-26-2022 Hemoglobin (Bld) [Mass/Vol] 13.6 g/dL Critically low 14.0-18.0 [facility] Comment on above: Performed By: #### H GB #### [facility] [address] [place] [address] Dr. Karen Lee Progress Noteson 06-04-2018 Protein mass conc [facility] Notes by Jacquelyn Rivera [...] Pt self discharged with last txsession with PHYSICAL THERAPY ASSISTANT.Patient is being discharged due to not returning to therapy and/or Plan of Care being .Recommend patient continue with HEP previously instructed on during therapy as appropriate.Patient may be reinstated in therapy upon new evaluation and orders from the physician.Thank You. [facility] Progress Noteson 04-23-2018 Protein mass conc Encounter [facility]ERAPYProgress Notes by Berlin Valle PTA at 04/23/2018 9:00 AMAuthor: Berlin Valle PTAService: (none)Author Type: Physical Therapy AssistantFiled: 04/23/2018 9:46 AMEncounter Date: 04/23/2018Status: SignedEditor: Berlin Valle PTA (Histotechnologist)Physical Therapy Treatment NoteVisit Number: 5Encounter diagnosis:ICD-10-CM1.Cervical giaM54.22.Headache in back of [id number] Medical Diagnosis:SUBJECTIVE: Pt requests today being his [...] t-band- Scap retract x15- B UE ext a68Mgth tucks x15GTB rows 3a38Ujpmvu- STM along c-spine paraspinals, UT, and levator [...] in rotation and SB without increase in pain.Shelter Goals: LTG to be met by 06/08/18 [...] Time: 10Total Treatment Time: 25 PT Treatment [facility] Progress Noteson 04-21-2018 Protein mass conc Encounter Department : [facility] REHAB THERAPYProgress Notes by Berlin Valle PTA at 04/21/2018 9:00 AMAuthor: Berlin Valle PTAService: (none)Author Type: Physical Therapy AssistantFiled: 04/21/2018 9:46 AMEncounter Date: 04/21/2018Status: SignedEditor: Berlin Valle PTA (Histotechnologist)Physical Therapy Treatment NoteVisit Number: 4Encounter diagnosis:ICD-10-CM1.Cervical giaM54.22.Headache in back of [id number] Medical Diagnosis: CervicalgiaSUBJECTIVE:Complia nce with HEP: Pt [...] t-band- Scap retract x15- B UE ext p80Nvvx tucks x15GTB rows 8v37Bkwcqj- STM along c-spine paraspinals, UT, and levator [...] in rotation and SB without increase in pain.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 to be met by 06/08/18 [...] Time: 17Total Treatment Time: 32 PT Treatment [facility] Progress Noteson 04-16-2018 Protein mass conc [facility] Notes by Collette Villanueva PTA at 04/16/2018 9:00 AMAuthor: Collette Villanueva PTAService: (none)Author Type: Physical Therapy AssistantFiled: 04/16/2018 12:11 PMEncounter Date: 04/16/2018Status: SignedEditor: Collette Villanueva PTA (Histotechnologist)Physical Therapy Treatment NoteVisit Number: 3Encounter diagnosis:ICD-10-CM1.Cervical giaM54.22.Headache in back of [id number] Medical Diagnosis: CervicalgiaSUBJECTIVE:Complia nce with HEP: Patient [...] t-band- Scap retract x15- B UE ext x22Oagi tucks x15GTB rows 0h58Xaterr- STM along c-spine paraspinals, UT, and levator [...] in rotation and SB without increase in pain.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 to be 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 by 06/08/18 [...] Time: 28Total Treatment Time: 43 PT Treatment [facility] Progress Noteson 04-10-2018 Protein mass conc [facility]YProgress Notes by Berlin Valle PTA at 04/10/2018 9:00 AMAuthor: Berlin Valle PTAService: (none)Author Type: Physical Therapy AssistantFiled: 04/10/2018 10:21 AMEncounter Date: 04/10/2018Status: SignedEditor: Berlin Valle PTA (Histotechnologist)Physical Therapy Treatment NoteVisit Number: 2Encounter diagnosis:ICD-10-CM1.Cervical giaM54.22.Headache in back of [id number] Medical Diagnosis: CervicalgiaSUBJECTIVE:Complia nce with HEP: Pt [...] UT stretch 3x 30'Chin tucks x15GTB rows 6v67NCG: chin tuck, UT and LS stretch, scap [...] in rotation and SB without increase in pain.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 to be met by 06/08/18 [...] Time: 30Total Treatment Time: 45 PT Treatment Normal [facility] Progress Noteson 04-08-2018 Protein mass conc Encounter Department : [facility] REHAB THERAPYProgress Notes by Jacquelyn Rivera PT at 04/08/2018 1:45 PMAuthor: Jacquelyn Rivera PTService: (none)Author Type: Physical TherapistFiled: 04/08/2018 6:47 PMEncounter Date: 04/08/2018Status: SignedEditor: Jacquelyn Rivera PT (Physical Therapist)Physical Therapy EvaluationEncounter diagnosis:ICD-10-CM1.Cervical giaM54.22.Headache in back of [id number] provider: Mellisa Clarke,*Primary Medical Diagnosis: CervicalgiaPlan of [...] Home: 15Prior Level of Functioning: Level of Reagan: [facility] Functioning: Outcome Score: NDI (26 raw score NDI, 52% disability) Functional deficits: reports no functional deficits, able to do everything just withincreased pain. Level of Reagan: Modified IndependentSleep Status/Sleep Hygiene: Preferred Sleep Position: [...] codes)[id number] Mobility Current Status; Severity: CK 40-59% [id number] Mobility Goal Status; Severity: CI 1-19% impairedOutcome measure(s)/Test(s) used/Result(s): 52% disability on NDI.Clinical Judgment: Moderate to severe impairement, decreased neck ROM and strength, tenderness totrigger points moderateNew Category to Qwlnzh-Ea-Omjv only?:NoEvaluation Breakdown DescriptionPatient HistoryComorbiditiesEnvironme ntal/Personal factorsLearning/CognitionDome stic [...] in rotation and SB without increase in pain.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 06-24-2024 13:52-0400 Body weight 111.13 kg Gillian Taylor MD Work Phone: [facility] 06-24-2024 13:52-0400 Diastolic blood pressure 62 mm[Hg] Gillian Taylor MD Work Phone: [facility] 06-24-2024 13:52-0400 Heart rate 74 /min Gillian Taylor MD Work Phone: [facility] 06-24-2024 13:52-0400 SaO2% (BldA) [Mass fraction] 94 % Gillian Taylor MD Work Phone: [facility] 06-24-2024 13:52-0400 Systolic blood pressure 122 mm[Hg] Gillian Taylor MD Work Phone: [facility] 06-09-2024 11:17-0400 Body height 172.7 cm Carlos Hall PA Work Phone: [facility] 06-09-2024 11:17-0400 Body mass index (BMI) [Ratio] 38.01 kg/m2 Carlos Hall PA Work Phone: [facility] 06-09-2024 11:17-0400 Body weight 113.4 kg Carlos Hall PA Work Phone: [facility] 06-09-2024 11:17-0400 Diastolic blood pressure 84 mm[Hg] Carlos Hall PA Work Phone: [facility] 06-09-2024 11:17-0400 Heart rate 78 /min Carlos Hall PA Work Phone: [facility] 06-09-2024 11:17-0400 Respiratory rate 16 /min Carlos Hill PA Work Phone: [facility] 06-09-2024 11:17-0400 SaO2% (BldA) [Mass fraction] 93 % Carlos LI Work Phone: [facility] 06-09-2024 11:17-0400 Systolic blood pressure 132 mm[Hg] Carlos LI Work Phone: [facility] 05-29-2022 14:58-0400 Body height 170.99 cm Referring [...] Referring Provider Unknown [facility] Work Phone: 09-21-2022 14:58-0400 Systolic blood pressure 130 mm[Hg] Referring Provider Unknown [facility] Work Phone: 05-29-2022 [phone] Referring Provider Unknown [facility] Work Phone: Comment on above: [employer] Encounters Encounter Date Encounter Type Care Provider Facility Start: 08-16-2024 End: 08-16-2024 ambulatory [facility] Start: 07-29-2024 End: 08-03-2024 Refill Pablo Zaragoza [employer] Work Phone: [facility] Comment on above: Med Refill Start: 06-24-2024 End: 06-24-2024 Office outpatient visit 25 minutes Gillian Taylor MD Work Phone: [facility] Comment on above: Coronary artery dise ase involving coronary bypass graft of three affiliated heart without angina pectoris (Primary Dx); Paroxysmal atrial fibrillation ([facility]-HCC); Primary hypertension; Mixed hyperlipidemia; Left ventricular dysfunction Start: 06-24-2024 End: 06-24-2024 ambulatory GILLIAN TAYLOR [facility] Start: 06-23-2024 End: 06-23-2024 [facility] Start: 06-09-2024 End: 06-09-2024 Office outpatient visit 15 minutes Carlos LI Work Phone: [facility] Comment on above: 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 with discogenic back pain and lower extremity pain (Primary Dx); Neck pain; Chronic daily headache; Tremor Start: 06-09-2024 End: 06-09-2024 ambulatory CARLOS HALL Not Available Start: 06-08-2024 End: 06-08-2024 Blanca Fisher MD Work Phone: [facility] Start: 06-08-2024 End: 06-08-2024 Blanca Fisher MD Work Phone: [facility] Start: 06-08-2024 End: 06-08-2024 Patient encounter procedure David Fisher MD Work Phone: [facility] Comment on above: Carpal tunnel syndro me of left wrist (Primary Dx) Start: 06-08-2024 End: 06-08-2024 ambulatory DAVID FISHER Not Available Start: 05-17-2024 ambulatory EMELY [facility] Start: 03-15-2024 End: 03-15-2024 ambulatory CARLOS HALL Not Available Start: 01-21-2024 End: 01-21-2024 ambulatory CARLOS MARCO Not Available Start: 12-30-2022 End: 12-31-2022 ambulatory DARNELL AILCEA . Facility: Start: 12-17-2022 End: 12-18-2022 ambulatory DARNELL ALICEA . Facility: Start: 06-17-2022 AUDIT Referring Prov ider Unknown [facility] Work Phone: Start: 05-29-2022 Office outpatient ne w 45 minutes Referring Provider Unknown [facility] Work Phone: Start: 05-29-[address] [facility] Start: 05-21-2022 End: 08-14-2022 ambulatory [facility] Facility: Start: 04-26-2022 End: 04-27-2022 [facility] Facility:[facility] Start: 04-23-2018 End: 04-23-2018 Patient encounter [place] Demarco [facility] Start: 04-21-2018 End: 04-21-2018 Patient encounter [place] Demarco [facility] Start: 04-16-2018 End: 04-16-2018 Patient encounter COLLETTE VILLANUEVA [facility] Start: 04-10-2018 End: 04-10-2018 Patient encounter [place] Demarco [facility] Start: 04-08-2018 End: 04-08-2018 Patient encounter MELLISA CLARKE [facility] Patient encounter status Referri ng Provider Unknown [facility] Work Phone: Procedures Date Procedure Procedure Detail Performing Clinician Start: 06-24-2024 Ecg routine ecg w/le ast 12 lds w/i&r Gillian Taylor MD Work Phone: Start: 06-24-2024 Follow-up visit Follow-up GILLIAN TAYLOR Start: 06-08-2024 End: 06-08-2024 Needle emg ea extremty w/paraspinl area complete David Fisher MD Work Phone: Start: 05-20-2022 History of coronary artery bypass grafting Hx of CABG David Fisher MD Work Phone: Cataract surgery Referring P rovider Unknown Coronary artery bypa ss graft Referring Provider Unknown Hernia repair Referring Prov ider Unknown History of coronary artery bypass grafting Hx of CABG Pablo Zaragoza [employer] Work Phone: Prosthetic arthropla sty of shoulder Referring Provider Unknown Total replacement of hip Ref erring Provider Unknown Plan of Treatment Date Care Activity Detail Author Start: 08-13-2033 DTaP,Tdap and Td Vaccines (2 - Td or Tdap) DTaP,Tdap and Td Vaccines (2 - Td or Tdap) [facility] Start: 06-24-2025 Adult BMI Screening Adult BMI Screen ing [facility] Start: 06-24-2025 Tobacco Screening Tobacco Screening [facility] Start: 12-21-2024 End: 12-21-2024 Patient encounter procedure 12/21/2024 10:40 AM EDT [facility] [address] [place] [address] Carlos Hall PA [address] [place], [place] [id number] [facility] Start: 07-29-2024 Adult BMI Screening Adult BMI Screen ing [facility] Start: 07-29-2024 Tobacco Screening Tobacco Screening [facility] Start: 06-24-2024 End: 06-24-2025 CT Chest WO and CT angiogram Coronary arteries W contrast IV CT angiogram chest Imaging Routine Coronary artery disease involving coronary bypass graft of three affiliated heart without angina pectoris Expected: 06/24/2024, Expires: 06/24/2025 [facility] Comment on above: Expected: 06/24/2024 , Expires: 06/24/2025 Start: 06-24-2024 End: 06-24-2025 Echo complete W/O contrast Echo complete W/O contrast Echocardiography Routine Coronary artery disease involving coronary bypass graft of three affiliated heart without angina pectoris Expected: 06/24/2024, Expires: 06/24/2025 [facility] Comment on above: Expected: 06/24/2024 , Expires: 06/24/2025 Start: 06-24-2024 End: 06-24-2024 Patient encounter procedure 06/24/2024 2:00 PM EDT Office Visit [facility] [address] [place] [id number] Gillian Taylor MD [address] [place] [address] [facility] Start: 06-09-2024 End: 06-09-2024 Patient encounter procedure 06/09/2024 11:20 AM EDT Office Visit [facility] [place] [facility] [address] [place] [phone] Carlos Hall PA [address] [place] [address] [facility] [place] [facility] Start: 06-08-2024 End: 06-08-2024 Patient encounter procedure 06/08/2024 12:15 PM EDT Procedure Visit [facility] [place] [facility] [address] [place] [phone] David Fisher MD [address] [place], [place] [id number] Arrived [facility] [place] [facility] Comment on above: Arrived Start: 05-09-2024 Influenza vaccination [facility] Start: 2010 Administration of varicella zoster vaccine Zoster (Shingles) Vaccine (1 of 2) [facility] Start: 1978 Adult BMI Follow Up Plan Adult BMI F ollow Up Plan [facility] Start: 1972 Depression Screening Depression Scre ening [facility] [employer] [facility] Start: 1960 Screening for malign ant neoplasm of colon [facility] End: 06-24-2025 CBC panel - Blood by Automated count CBC Lab Routine Paroxysmal atrial fibrillation ([facility]-HCC) 1 Occurrences starting 06/24/2024 until 06/24/2025 [facility] Comment on above: 1 Occurrences starti ng 06/24/2024 until 06/24/2025 End: 06-24-2025 Comprehensive metabolic 2000 panel - Serum or Plasma CMP Lab Routine Primary hypertension 1 Occurrences starting 06/24/2024 until 06/24/2025 [facility] Comment on above: 1 Occurrences starti ng 06/24/2024 until 06/24/2025 End: 06-24-2025 Lipid panel Lipid panel Lab Routine Mixed hyperlipidemia 1 Occurrences starting 06/24/2024 until 06/24/2025 [facility] Work Phone: Comment on above: 1 Occurrences starti ng 06/24/2024 until 06/24/2025 Immunizations Immunization Date Immunization Notes Care Provider [facility] 08-13-2023 influenza virus vacc ine, unspecified formulation David Fisher MD Work Phone: [facility] 05-23-2021 influenza, high dose seasonal, preservative-free David Fisher MD Work Phone: [facility] 10-25-2020 Pfizer Purple Cap SARS-CoV-2 Vaccination David Fisher MD Work Phone: [facility] 09-20-2020 Pfizer Purple Cap SARS-CoV-2 Vaccination David Fisher MD Work Phone: [facility] Payers Date Payer Category Payer Medicare [employer] ADVANTAGE [employer]ARE [id number] 2022-Present [address] [address] [place] [address] [id number] 2019 Medicare HMO [employer] MEDICARE [id number] 1960 Unknown [id number] 1960 Unknown [id number] 1960 Unknown [id number] 1960 Unknown [id number] 1960 Unknown [id number] 1960 Unknown [id number] 9 1960 Unknown [id number] 9 1960 Unknown [id number] 9 1960 Unknown [id number] 9 1960 Unknown [id number] 6 1960 Unknown [id number] 6 1959 Medicare [id number] Unknown Social History Date Type Detail Facility Start: 03-15-2024 End: 06-24-2024 Social alcohol use Social alcohol use [facility] Start: 05-20-2022 End: 03-15-2024 Tobacco smoking status NHIS Ex-smoker [facility] Start: 09-08-1974 End: 09-08-2009 History of tobacco use Current smoker [facility] Start: 09-08-1974 End: 09-08-2009 History of tobacco use Cigarette Smoker [facility] Start: 05-20-2022 End: 03-15-2024 Tobacco use and exposure Smokeless tobacco non-user [facility] Start: 03-15-2024 End: 06-09-2024 Alcoholic beverage intake Lifetime non-drinker (finding) [facility] Start: 03-15-2024 End: 06-24-2024 Tobacco use panel [facility] Start: 02-13-2023 Alcohol Comment ocassionally [facility] Start: 1960 Sex assigned at Male N [facility] Start: 02-21-2023 Gender identity Identifies as male gender (finding) [facility] Start: 07-29-2023 End: 06-24-2024 Alcoholic beverage intake Ex-drinker (finding) [facility] Within the past 12 months we worried whether our food would run out before we got money to buy more. Never True [facility] Start: 05-20-2022 Alcohol Comment [facility] Start: 1960 Sex assigned at Not on file P [facility] Start: 03-22-2022 Sex Male (finding) [facility] Clinical Notes 06-08-2024 to 08-16-2024 Telephone Encounter - Diana Munguia LPN - 07/29/2024 9:20 AM ESTTelephone Encounter - Diana Munguia LPN - 07/29/2024 9:20 AM Obed Taylor MD - 06/24/2024 2:00 PM EDTPatient Instructions Note Date & Type Note Facility 08-16-2024 Note [place] [facility] Note Reason for cardiology consult: Establish new cad specialist, CAD, congestive heart failure, ascending aortic aneurysm Chief Complaint: Dyspnea on exertion HPI: Elise Atkinson Padilla is a 64 y.o. male with history of coronary artery disease and coronary artery bypass surgery and maze procedure, paroxysmal atrial fibrillation, s/p ablation in [place], thoracic aortic aneurysm, left ventricle dysfunction, hypertension, hyperlipidemia COPD, prior tobacco and alcohol abuse He used to follow with [facility] cardiology. He states that overall he has been doing well. He has chronic dyspnea on exertion due to COPD and he is on home oxygen at 3 L/min. He denies sleep apnea. He denies any chest discomfort at rest or with exertion. Denies orthopnea or paroxysmal nocturnal dyspnea or dizziness or palpitations or legs edema or legs comfort on exertion. He used to smoke 2 packs/day for about 30 years and he quit 2011. He used to drink alcohol in the past however he quit many years ago and he now drinks socially. He used to do different drugs in the far past. He smokes marijuana occasionally Cardiology ROS: GENERAL: Denies fever, chills, night sweats, weight loss. HEENT: Denies changes in vision, photophobia, changes in hearing, epistaxis, oral bleeding. CARDIOVASCULAR: He reports chronic exertional dyspnea. Denies chest pain, orthopnea/PND, lower extremity edema, palpitations, lightheadedness/dizziness. RESPIRATORY: Denies coughing, wheezing GI: Denies abdominal pain, nausea/vomiting, heartburn, melena/hematochezia. RENAL: Denies dysuria, hematuria, flank pain. MSK: Denies muscle weakness/pain, arthralgias/joint pain. NEUROLOGIC: Denies LOC, weakness, numbness, headaches. SKIN: Denies abnormal rashes or bleeding. PSYCH: Denies significant anxiety, depression, sleep disturbances. Past Medical History He has a past medical history of Abnormal ECG, Aneurysm ([facility]/HCC), Arrhythmia, Atrial fibrillation (CMS/HCC), Cardiomyopathy (CMS/HCC), COPD (chronic obstructive pulmonary disease) (CMS/[facility]), Coronary artery disease, Hyperlipidemia, and Hypertension. Surgical History He has a past surgical history that includes Ablation of dysrhythmic focus; Cardiac catheterization; and Coronary artery bypass graft. Social History He has no history on file for tobacco use, alcohol use, and drug use. Family History Family History Problem Relation Name Age of Onset Coronary artery disease Mother Coronary artery disease Father Allergies Patient has no allergy information on record. Medications Current Outpatient Medications: albuterol (Ventolin HFA) 90 mcg/actuation inhaler, every 4 (four) hours., Disp: , Rfl: apixaban (Eliquis) 5 mg tablet, Take 5 mg by mouth twice a day., Disp: , Rfl: aspirin 81 mg chewable tablet, Chew 81 mg in the morning., Disp: , Rfl: atorvastatin (Lipitor) 40 mg tablet, Take 40 mg by mouth at bedtime., Disp: , Rfl: azithromycin (Zithromax) 250 mg tablet, Take 250 mg by mouth in the morning., Disp: , Rfl: cholecalciferol, vitamin D3, 50 mcg (2,000 unit) capsule, 1 capsule., Disp: , Rfl: ipratropium-albuteroL (Duo-Neb) 0.5-2.5 mg/3 mL nebulizer solution, INHALE 1 vial via NEBULIZER FOUR TIMES DAILY NEEDED, Disp: , Rfl: lisinopril 5 mg tablet, Take 5 mg by mouth in the morning., Disp: , Rfl: meloxicam (Mobic) 15 mg tablet, Take 15 mg by mouth in the morning., Disp: , Rfl: metoprolol succinate XL (Toprol-XL) 50 mg 24 hr tablet, Take 50 mg by mouth in the morning. Taking 100mg in the AM, 50mg in the PM, Disp: , Rfl: nitroglycerin (Nitrostat) 0.4 mg SL tablet, DISSOLVE 1 TABLET UNDER THE TONGUE NEEDED FOR CHEST PAIN- MAY REPEAT EVERY 5 MINUTES IF NEEDED ( MAX 3 DOSES.- IF NO RELIEF CALL 911), Disp: , Rfl: omeprazole (PriLOSEC) [address] capsule, Take 40 mg by mouth before breakfast., Disp: , Rfl: predniSONE (Deltasone) 10 mg tablet, Take 10 mg by mouth in the morning., Disp: , Rfl: pregabalin (Lyrica) 150 mg capsule, Take 150 mg by mouth 3 times a day., Disp: , Rfl: roflumilast (Daliresp) 500 mcg tablet, Take 500 mcg by mouth in the morning., Disp: , Rfl: theophylline ER (Uniphyl) 400 mg 24 hr tablet, Take 400 mg by mouth in the morning., Disp: , Rfl: Trelegy Ellipta 200-62.5-25 mcg blister with device, Inhale 1 puff in the morning., Disp: , Rfl: zinc gluconate 50 mg tablet, 1 (one) time each day at the same time., Disp: , Rfl: Last Recorded Vitals Visit Vitals BP 103/73 (BP Location: Left arm, Patient Position: Sitting) Pulse 90 Ht 1.753 m (5' 9 ) Wt 109 kg (240 lb) SpO2 95% Comment: on 3L O2 BMI 35.44 kg/m??? BSA 2.3 m??? Physical Examination: GENERAL: alert and oriented x3, well developed, in no acute distress. HEAD: atraumatic, normocephalic. EYES: NIA, EOMI. NECK: trachea midline, no JVD present, no carotid bruits present. CARDIAC: S1, S2 present. RRR. No murmur, rubs, or gallops. RESPIR (more content not included)... [facility] 07-29-2024 Miscellaneous Notes [place] 06/24/24 documented in this encounter [facility] 07-29-2024 Telephone encounter Note [place] 06/24/24 [facility] 06-24-2024 History of Present illness Narrative Elise Tabor Date of visit: 06/24/2024 Date of : 1960 Age: 64 y.o. Patient Active Problem List Diagnosis Coronary artery disease involving coronary bypass graft of three affiliated heart without angina pectoris Paroxysmal atrial fibrillation (CMS-HCC) Thoracic aortic aneurysm without rupture (CMS-HCC) Hx of CABG History of maze procedure Mixed hyperlipidemia Primary hypertension Left ventricular dysfunction Allergies Allergen Reactions Gluten Imdur [Isosorbide Mononitrate] Headache Current Outpatient Medications Medication Sig Dispense Refill albuterol (PROVENTIL HFA;VENTOLIN HFA) 90 mcg/actuation inhaler Inhale 2 puffs every 6 (six) hours as needed for wheezing. albuterol (PROVENTIL) 5 mg/mL nebulizer solution Inhale 0.5 mL (2.5 mg total) by nebulization every 4 (four) hours as needed for wheezing. apixaban (ELIQUIS) 5 mg tablet Take 1 tablet (5 mg total) by mouth in the morning and 1 tablet (5 mg total) before bedtime. 180 tablet 1 ascorbic acid, vitamin C, (VITAMIN C) 1000 mg tablet Take 1 tablet (1,000 mg total) by mouth in the morning. aspirin 81 mg Take 1 tablet (81 mg total) by mouth in the morning. 90 tablet 3 atorvastatin (LIPITOR) 40 mg tablet Take 1 tablet (40 mg total) by mouth in the morning. 90 tablet 1 cholecalciferol 1,000 units tablet Take 1 tablet (1,000 Units total) by mouth in the morning. cyanocobalamin (vitamin B-12) 1000 MCG tablet Take 1 tablet (1,000 mcg total) by mouth in the morning. DALIRESP 500 mcg tablet Take 1 tablet (500 mcg total) by mouth in the morning. ferrous sulfate 325 (65 FE) mg EC tablet Take 65 mg by mouth daily with breakfast. naznljqobzz-pbnmrpqwy-mnwhiiwp (TRELEGY ELLIPTA) 200-62.5-25 mcg blister with device 1 puff in the morning. gabapentin (NEURONTIN) 600 mg tablet Take 1 tablet (600 mg total) by mouth 3 (three) times a day. ipratropium-albuteroL (DUONEB) 0.5 mg-3 mg(2.5 mg base)/3 mL nebulizer lisinopriL (PRINIVIL,ZESTRIL) 5 mg tablet Take 1 tablet (5 mg total) by mouth in the morning. 90 tablet 1 metoprolol succinate XL (TOPROL XL) 50 mg 24 hr tablet Take 100 mg in the morning and 50 mg at night 270 tablet 3 naproxen-pseudoephedrine 220-120 mg tablet extended release 12 hr Take by mouth. nitroglycerin (NITROSTAT) 0.4 MG SL tablet 1 under the tongue as needed for angina, may repeat q5mins for up three doses 25 tablet 1 omeprazole (PriLOSEC) 40 mg capsule Take 1 capsule (40 mg total) by mouth in the morning. oxygen Inhale continuously. TESTOSTERONE, BULK, MISC by miscellaneous route. 100 mg 1 tablet daily theophylline (BRYNA-24) 400 MG 24 hr capsule Take 1 capsule (400 mg total) by mouth in the morning. zinc gluconate 50 mg tablet Take 1 tablet (50 mg total) by mouth in the morning. No current facility-administered medications for this visit. Chief Complaint Patient presents with Follow-up EST PT FU EM RESULTS History of Present Illness I had the opportunity to meet this 63-year-old. He was last in the office 07/2023 Wireless telemetry from 05/17/2024 still not resulted Wireless telemetry from 2022 reviewed with the patient It has been discussed with him by Dr. Cantu with the current recommendations for a person with a history of atrial fibrillation despite the reported ablation in [place], continue on anticoagulation. We discussed this again today and of course it is his choice whether or not he elects to continue anticoagulation for CVA prophylaxis. Anticoagulation does come with monetary costs as well as increased risk of bruising/bleeding. While here patient also noted that he is planning surgery. He had previously refused in ECG but then agreed to have 1 He denies chest pain. He has chronic shortness of breath. He denies syncope or edema He was very concerned that he has seen different cardiologists. I discussed the nature of our large group. He may be better served with a cardiology group that is smaller where he could see the same person each time ECG today shows sinus rhythm normal ECG CV TESTING HISTORY: ECHO: No results found. STRESS: No results found. HOLTER: No results found. CARDIAC CATH: No results found. CAROTID: No results found. CXR: No results found. Lipid Profile: Lab Results Component Value Date Cholesterol 133 (L) 06/07/2023 Cholesterol:HDL Ratio 3.6 06/07/2023 HDL Cholesterol 37 (L) 06/07/2023 Triglycerides 159 (H) 06/07/2023 LDL (calc) 64 06/07/2023 Past Medical History: Diagnosis Date Arthritis Ascending aortic aneurysm ([facility]) Atrial fibrillation ([facility]) Celiac disease COPD (chronic obstructive pulmonary disease) ([facility]) Coronary artery disease with history of coronary revascularization GERD (gastroesophageal reflux disease) Heavy alcohol use Hypokalemia Left ventricular dysfunction Oxygen dependent Peripheral neuropathy Tobacco abuse Past Surgical History: Procedure Laterality Date CORONARY ARTERY BYPASS GRAFT EYE SURGERY FINGER AMPUTATION HERNIA REPAIR HIP SURGERY SHOULDER SURGERY SKIN CANCER EXCISION TYMPANOSTOMY TUBE PLACEMENT Family History Problem Relation Age of Onset Cancer Mother Breast cancer Mother Heart disease Father Social History Socioeconomic History Marital status: Spouse name: Not on file Number of children: Not on file Years of education: Not on file Highest education level: Not on file Occupational History Not on file Tobacco Use Smoking status: Former Smokeless tobacco: Never Vaping Use Vaping status: Never Used Substance and Sexual Activity Alcohol use: Not Currently Comment: ocassional Drug use: Not Currently Comment: occasional gummies Sexual activity: Defer Other Topics Concern Caffeine Use Yes Social History Narrative Not on file Social Drivers of Health Financial Resource Strain: Not on file Food Insecurity: No Food Insecurity (06/24/2024) Hunger Screening Food Insecurity - Worry: Never True Food Insecurity - Inability: Never True Transportation Needs: Not on file Physical Activity: Not on file Stress: Not on file Social Connections: Not on file Interpersonal Safety: Not on file Housing Instability: Not on file Review of Systems Review of Systems Constitutional: Negative. HENT: Negative. Eyes: Negative. Cardiovascular: Negative. Vascular: Negative. Respiratory: Positive for cough, shortness of breath and wheezing. Negative for snoring. Endocrine: Negative. Hematologic/Lymphatic: Negative. Skin: Negative. Musculoskeletal: Positive for back pain, joint pain and joint swelling. Gastrointestinal: Negative. Neurological: Negative. Psychiatric/Behavioral: Negative. Allergic/Immunologic: Negative. CARDIOVASCULAR: Please review HPI. Physical Examination General appearance: Alert, oriented and cooperative. In no acute distress. Chronically ill-appearing. On oxygen Skin: Warm and dry to touch. Respiratory: Bilateral diminished Cardiovascular: rrr Musculoskeletal: No peripheral edema. VITAL SIGNS: BP 122/62 (BP Site: Left Arm, BP Postition: Sitting) Pulse 74 Ht 172.7 cm (5' 7.99 ) Wt 111.1 kg (245 lb) SpO2 94% BMI 37.26 kg/m No orders of the defined types were placed in this encounter. Medications Discontinued During This Encounter Medication Reason lysine 500 mg tablet zonisamide (ZONEGRAN) 25 mg capsule IMPRESSIONS/PLAN 1. Coronary artery disease involving coronary bypass graft of three affiliated heart without angina pectoris - POCT EKG - CT angiogram chest; Future - Echo complete W/O contrast; Future 2. Paroxysmal atrial fibrillation (CMS-HCC) - CBC; Future 3. Primary hypertension - CMP; Future 4. Mixed hyperlipidemia - Lipid panel; Future 5. Left ventricular dysfunction 1. ASCVD without angina --history of CABG with Maze --[facility]S to the LAD 2015 in [place] 2. Cardiomyopathy -ischemic versus related to alcohol --echocardiogram to be repeated 3. COPD with oxygen use --uses theophylline 4. Paroxysmal atrial fibrillation diagnosed in 1998 5. Primary hypertension 6. Hyperlipidemia --patient endorses that he had not had laboratory studies done recently 7. Thoracic aortic aneurysm --CTA of the thoracic order to be obtained 8. PVCs Laboratory studies CTA of the aorta Echocardiogram From cardiology standpoint he is at moderate risk for anticipated orthopedic surgery. He should be off his Eliquis 2 days TODAYS ORDERS Orders Placed This Encounter Procedures CT angiogram chest Lipid panel CMP CBC POCT EKG Echo complete W/O contrast FOLLOW UP Return in about 1 year (around 06/24/2025). PCP: GENE LORENZO Referring Physician: Kacie Del Real MD [facility] [place] [address] documented in this encounter [facility] 06-24-2024 Instructions Gillian Taylor MD - 06/24/2024 2:00 PM EDT Laboratory studies CTA of the aorta Echocardiogram documented in this encounter [facility] 06-23-2024 Miscellaneous Notes Called patient to remind them to bring their most current copy of their medication list with them to their appt. Patient verbalizes understanding. documented in this encounter [facility] 06-23-2024 Telephone encounter Note Called patient to remind them to bring their most current copy of their medication list with them to their appt. Patient verbalizes understanding. [facility] 06-09-2024 History of Present illness Narrative Subjective Elise Tabor is a 64 y.o. year old male Chief Complaint Patient presents with Back Pain Neck Pain Tremors Past Medical History: Diagnosis Date Anemia Atrial fibrillation (CMS/HCC) Celiac disease (CMS/HCC) 03/04/2019 Cervicalgia 04/08/2018 Chronic obstructive lung disease (CMS/HCC) 01/22/2018 Chronic obstructive pulmonary disease (COPD) (CMS/HCC) Coronary artery disease (CMS/HCC) Emphysema of lung (CMS/HCC) H/O hernia repair Headache in back of head 04/08/2018 Peripheral polyneuropathy 06/27/2023 Pneumonia Rheumatoid arthritis (CMS/HCC) Sinus tachycardia 01/22/2018 Past Surgical History: Procedure Laterality Date AMPUTATION CORONARY ARTERY BYPASS GRAFT 05/2022 OTHER SURGICAL HISTORY B A-F bypass ROTATOR CUFF REPAIR TOTAL HIP ARTHROPLASTY Family History Problem Relation Name Age of Onset Cancer Mother Hypertension Mother Heart disease Mother Heart disease Father Diabetes Sibling Social History Tobacco Use Smoking status: Former Current packs/day: 0.00 Average packs/day: 2.0 packs/day for 35.0 years (70.0 ttl pk-yrs) Types: Cigarettes Start date: 09/08/1974 Quit date: 09/08/2009 Years since quittin.7 Smokeless tobacco: Never Substance Use Topics Alcohol use: Never Comment: ocassionally HPI Lumbosacral radiculopathy -on Lyrica -pain 05/18 today -back pain is constant -pain starts at the base of the neck and radiates down whole spine -denies any numbness or tingling -states he recently had an injection in his shoulder -had EMG done yesterday, ordered by -denies any arm and leg weakness -balance is good -denies any recent falls -states lyrica has been very helpful and reduced the symptoms in his legs and feet quite a bit Neck pain -on Lyrica -located in center of neck, straight down spine -pain is constant -sounds like popcorn when he turns his head either way -neck will just lock up on him and then pop -reports this makes him see stars -ROM is ok -continues to wake with a headache TREMOR -tremor is about the same, denies any worsening -tremor in right hand only -states the tremor comes and goes -trouble with writing -denies trouble with eating or drinking -uses cups with handles -admits hand weakness -some trouble with potato spotter ROS Review of Systems Constitutional: Negative for activity change, appetite change and fatigue. Respiratory: Negative. Cardiovascular: Negative. Musculoskeletal: Positive for back pain and neck pain. Neurological: Positive for tremors and headaches. Negative for dizziness, seizures, syncope, weakness and numbness. Objective Visit Vitals BP 132/84 Pulse 78 Resp 16 Ht 5' 8 Wt 250 lb SpO2 93% BMI 38.01 kg/m Smoking Status Former BSA 2.33 m Neurological Exam Mental Status Awake, alert and oriented to person, place and time. Recent and remote memory are intact. Speech is normal. Language is fluent with no aphasia. Attention and concentration are normal. Fund of knowledge is appropriate for level of education. Cranial Nerves CN II: Visual acuity is normal. Visual smith full to confrontation. CN III, IV, : Extraocular movements intact bilaterally. Normal lids and orbits bilaterally. Pupils equal round and reactive to light bilaterally. CN V: Facial sensation is normal. CN VII: Full and symmetric facial movement. CN VIII: Hearing is normal. CN XI: Shoulder shrug strength is normal. Motor Normal muscle bulk throughout. Normal muscle tone. No abnormal involuntary movements. Sensory Light touch is normal in upper and lower extremities. Gait Casual gait is normal including stance, stride, and arm swing. Motor Examination RUE Strength deltoid, biceps, triceps, wrist extensors, wrist extensors, wrist flexor, potato spotter strength 5/5. LUE Strength deltoid, biceps, triceps, wrist extensors, wrist extensors, wrist flexor, potato spotter strength 5/5. RLE Strength illopsoas, quadriceps, tibialis anterior, and gastrocnemius strength 5/5. LLE Strength illopsoas, quadriceps, tibialis anterior, and gastrocnemius strength 5/5. Tone Normal tone x4 extremities. Reflexes: RUE biceps reflex 1, brachioradialis reflex 1 LUE biceps reflex 1, brachioradialis reflex 1 RLE knee reflex 0, ankle reflex 0 LLE knee reflex 0, ankle reflex 0 Heart: Regular rate and rhythm Assessment and Plan Diagnoses and all orders for this visit: DDD (degenerative disc disease), lumbar Lumbosacral radiculopathy The patient is a 62 year old male that presents with low back pain that has been occurring for 15+ years and was diagnosed with degenerative disc disease. His last lumbar spine MRI from 02/2023 revealed advanced degenerative changes, as noted below. The patient also complains of radicular pain and paresthesias that have been occurring for the past year into the bilateral lower extremities. EMG noted moderate bilateral S1 radiculopathies. He has not had benefit with PT in the past. He reports he has had epidural injections in the past. Cymbalta, trileptal, zonegran, and gabapentin were ineffective. He has had lessening in symptoms with Lyrica. Neck pain Patient has chronic musculoskeletal neck pain for past 25 years contributing to chronic daily headaches. He does have decreased ROM and proximal LUE weakness. He has multilevel degenerative changes that contribute to his symptoms. Chronic daily headache Chronic daily headaches worsened by underlying neck pain. Patient states he has been evaluated for ISABEL and reportedly sleep study was negative for ISABEL. Tremor Patient has been experiencing a tremor for years that has remained relatively stable with slight worsening over the past few years. Tremor is worse with action but can occur at rest. Tremor is possibly due to benign essential tremor, An additional consideration would be tremor secondary to a metabolic process or a psychogenic tremor from stress. He does not have signs currently of extrapyramidal symptoms or a neurodegenerative process such as Parkinson's disease. He was also recently started on prednisone, which can exacerbate tremor. Blood work revealed TSH within normal range at 0.454. Tremor is stable. LUE EMG 06/08/2024: a median neuropathy at or distal to the wrist, such as in carpal tunnel syndrome, which is minimal in degree electrically on the left Cervical spine MRI 02/07/2023: revealed mild to moderate C6-C7 and C7-T1 spinal canal stenoses. There is also small posterior disc protrusion at C4-C5, C5-C6, C6-C7, and C7-T1. There was note of moderate left C4-C5, bilateral C6-C7, and bilateral C7-T1 neural foraminal stenoses. Lumbar spine MRI 02/25/2023: revealed advanced degenerative disc changes throughout, mild L2-L3, L3-L4, and L4-L5 spinal canal stenoses. There was note of moderate right L4-L5 and left L2-L3 neural foraminal stenoses. BLE EMG 01/16/2023: revealed bilateral S1 radiculopathies, moderate in degree electrically. PLAN Continue Lyrica 150mg PO TID for neuropathic pain OARRS reviewed I counseled the patient on potential medication side effects. LUE EMG reviewed Patient to follow up with this clinic in 4-6 months or sooner for new or worsening symptoms documented in this encounter [facility] 06-08-2024 History of Present illness Narrative Images from the original note were not included. Reason for Appointment: EMG Patient: Elise Tabor : 1960 EMG Computer: [employer] Referring Physician: Preet Bill PA-C EMG: WALTER quality assurance supervisor body: Vera Zuñiga CMA Office Location: [place] Reason for EMG: c/o pain and paresthesia in the arm from the shoulder down. No Hx of DM, takes Eliquis and ASA Comments: Procedure explained to the patient who expressed understanding. documented in this encounter [facility] Evaluation note Diagnosis Carpal tunnel syndrome of left wrist- Primary documented in this encounter [facility] HealthcareEvaluation note* Diagnosis Degeneration of intervertebral disc of lumbar region with discogenic back pain and lower extremity pain- Primary Neck pain Cervicalgia Chronic daily headache Headache Tremor Abnormal involuntary movements documented in this encounter [facility] HealthcareEvaluation note* Diagnosis Coronary artery disease involving coronary bypass graft of three affiliated heart without angina pectoris- Primary Paroxysmal atrial fibrillation (CMS-HCC) Atrial fibrillation Primary hypertension Unspecified essential hypertension Mixed hyperlipidemia Left ventricular dysfunction Left heart failure documented in this encounter [facility] System[facility]* Diagnosis Coronary artery disease involving coronary bypass graft of three affiliated heart without angina pectoris Paroxysmal atrial fibrillation (CMS-HCC) Atrial fibrillation Aneurysm of ascending aorta without rupture (CMS-HCC) Hx of CABG 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 documented in this encounter [facility] SystemHistory of Present illness NarrativeMrLeyla Tabor is referred for consideration of LVRS. 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 He is on 3 L nasal cannula oxygen chronically. He is set to begin pulmonaryrehabilitation.-[facility] Work Phone: History of Present illness NarrativeMrLeyla Tabor is referred for consideration of LVRS. 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 He is on 3 L nasal cannula oxygen chronically. He is set to begin pulmonaryrehabilitation.[facility] Work Phone: History of Present illness NarrativeMr. Tabor is referred for consideration of LVRS. 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 He is on 3 L nasal cannula oxygen chronically. He is set to begin pulmonaryrehabilitation.[facility] Work Phone: InstructionsNot on filedocumented in this encounter [employer] SystemInstructionsNot on filedocumented in this encounter [employer] Summary Purpose Family History No Family History [...] Directives Records FoundNo Advanced Directives Records Found Reason for Referral Specialty Diagnoses / Procedures Referred By Tonya t Referred To Contact Diagnoses Carpal tunnel syndrome of left wrist Procedures NVC 7-8 Nerves David Fisher MD [address] [place] [address] Referral ID Status Reason Start Date Expiration Date V isits Requested Visits Authorized [id number] Pending Review 06/08/2024 12/05/2024 1 1 Additional Source Comments (unrecognized sect ion and content) No Status Records FoundNo Status Records FoundNo Status Records FoundNo Status Records FoundNo Status Records FoundNo Status Records FoundNo Status Records Found INFORMATION SOURCE (unrecogn ized section and content) DATE CREATED AUTHOR 07/04/2018 [facility] DATE CREATED AUTHOR AUTHOR'S ORGANIZ ATION 06/09/2022 [facility] DATE CREATED AUTHOR AUTHOR'S ORGANIZ ATION 06/09/2022 [employer] DATE CREATED AUTHOR AUTHOR'S ORGANIZ ATION 02/14/2023 [facility] DATE CREATED AUTHOR AUTHOR'S ORGANIZ ATION 06/09/2024 [facility] EPIC DATE CREATED AUTHOR AUTHOR'S ORGANIZ ATION 07/06/2024 [place] DATE CREATED AUTHOR AUTHOR'S ORGANIZ ATION 08/19/2024 [facility] Care Teams (unrecognized sec tion and content) Content Development Manager Relationship Specialty Start Date End Date Pauly Santacruz NP [address] [place] [address] Referring Physician Family Medicine 03/15/24 Content Development Manager Relationship Specialty Start Date End Date Pauly Santacruz NP [address] [place] [address] Referring Physician Family Medicine 03/15/24 Content Development Manager Relationship Specialty Start Date End Date Pauly Santacruz NP [address] [place] [address] Referring Physician Family Medicine 03/15/24 Content Development Manager Relationship Specialty Start Date End Date Kacie Del Real MD [address] [place] [id number] PCP - General Family Medicine 03/22/22 Content Development Manager Relationship Specialty Start Date End Date Pauly Santacruz APRN-NEONATAL SPECIALIST [address] [place] [address] PCP - General Family Medicine 06/24/24 Content Development Manager Relationship Specialty Start Date End Date Pauly Santacruz APRN-NEONATAL SPECIALIST [address] [place] [id number] PCP - General Family Medicine 06/24/24 Reason for Visit (unrecogniz ed section and content) Specialty Diagnoses / Procedures Referred By Tonya t Referred To Contact Neurology Diagnoses LUE EMG paresthesias of hand, numbness and tingling, ref by Wei Bill PACr20.2 Procedures [place] NERVE CONDUCTION STUDIES 9-10 STUDIES [place] NEEDLE EMG EA EXTREMTY W/PARASPINL [place] [address] [place] [address] David Fisher MD [address] [place] [address] Referral ID Status Reason Start Date Expiration Date V isits Requested Visits Authorized [id number] Closed Perform Procedure 06/08/2024 12/05/2024 1 1 Reason Comments Back Pain Neck Pain Tremors Reason Comments Follow-up EST PT FU EM RESULTS Reason Comments Med Refill FOR RECORDS PERTAINING TO PATIENTS WHO ARE [...] BE BASED ON THE PRIMARY CLINICAL RECORDS. [employer] provides no warranty or guarantee of the accuracy or completeness of information in this document.
[2024-08-19 13:58] LABS: Basophils Percent Auto 0.4 % (0.2-2.0); Eosinophils Percent Auto 0.4 % (0.9-7.0); Hematocrit 41.2 % (42.0-54.0); Hemoglobin 13.8 g/dL (14.0-18.0); Immature Granulocytes Abs Auto 0.08 10^3/uL (0.00-0.03); Immature Granulocytes Pct Auto 0.7 % (0.0-0.5); Lymphocytes Absolute Auto 0.9 10^3/uL (1.2-3.8); Lymphocytes Percent Auto 8.1 % (20.5-60.0); Mean Corpuscular HGB Conc 33.5 g/dL (29.9-35.2); Mean Corpuscular Volume 98.6 fL (80.0-94.0); Mean Platelet Volume 8.9 fL (9.5-13.5); Monocytes Absolute Auto 0.4 10^3/uL (0.3-0.8); Neutrophils Absolute Auto 9.3 10^3/uL (1.4-6.5); Neutrophils Percent Auto 86.4 % (43.0-75.0); Platelet Count 152 10^3/uL (150-450); Red Blood Count 4.18 10^6/uL (4.70-6.10); Red Cell Distribution Width 13.4 % (11.0-15.0); White Blood Count 10.8 10^3/uL (4.0-11.0)
[2024-08-19 14:19] LABS: Alanine Aminotransferase 41 U/L (16-63); Anion Gap 9.8; Aspartate Amino Transferase 19 U/L (15-37); BUN Creatinine Ratio 23.8; Calcium 9.7 mg/dL (8.5-10.1); Carbon Dioxide 33.9 mmol/L (21.0-32.0); Chloride 106 mmol/L (98-107); Cholesterol 173 mg/dL (<=200); Estimated GFR (African America >60 (>=60 mL/min/1.73m^2); Estimated GFR (Non-African Ame >60 (>=60 mL/min/1.73m^2); Glucose 122 mg/dL (74-106); HDL Cholesterol 58 mg/dL (40-60); LDL Cholesterol Calculated 94.6 mg/dL; Potassium 4.7 mmol/L (3.5-5.1); Sodium 145 mmol/L (136-145); Triglycerides 102 mg/dL (<=150); VLDL CHOLESTEROL 20.4 mg/dL
== END 2024-08-19 13:32 | disposition home or self-care (01) ==
LOC: LAB 13:31
PROVIDERS: PCP Nurse Practitioner; Visit Provider Internal Medicine Cardiovascular Disease
DX: I48.0 Paroxysmal atrial fibrillation (principal); Z79.01 Long term (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 of 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; I10 Essential (primary) hypertension; E78.00 Pure hypercholesterolemia, unspecified
CPT/HCPCS: 36415; 80048; 80061; 84450; 84460; 85025

== ENCOUNTER 2024-10-01 09:12 | Outpatient (OUT) | payer MEDICARE, SELFPAY ==
--- NOTE | 2024-10-01 09:28 | CT_ITS ---
The [address] [address] Patient Name: ELISE TABOR MRN: [id number] date: 1960 Sex: M Assigned Patient Location: LAB Current Patient Location: Accession/Order Number: [id number] Exam Date: 10/01/2024 09:45 Report Date: 10/02/2024 14:24 At the request of: BENNY FUENTES Procedure: CT angio chest EXAM: CT angio chest HISTORY: Aneurysm Of Ascending Aorta COMPARISON: 05/02/2023. TECHNIQUE: CT angiography of the chest was performed without IV contrast followed by IV contrast, including 3D post processing CTA image reconstruction. CT dose reduction technique was used, including Automated Exposure Control. FINDINGS: Diagnostic quality: Adequate There is no evidence for pulmonary embolism. The pulmonary artery is enlarged, with the proximal portion of the main trunk measuring 3.6 cm suggesting pulmonary hypertension. The heart is enlarged. Dilated ascending thoracic aorta up to 4.7 cm not significantly changed. The aortic root at the sinuses of Valsalva measures approximately 4.0 cm. Normal caliber descending thoracic aorta, measuring 2.8 cm in diameter. No dissection. There is no pericardial effusion. There are no abnormally enlarged hilar or mediastinal lymph nodes. Coronary arteries: Prior coronary bypass grafting. The central tracheobronchial tree is clear. The lungs are clear. There is no pleural effusion. Severe emphysema. Calcified right lower lobe granuloma. No acute process identified in the visualized upper abdomen. No destructive osseous changes are seen. CT/CT angio chest IMPRESSION: No significant change in dilated ascending thoracic aorta. Cardiomegaly and enlarged pulmonary artery also seen, as above. Electronically authenticated by: JUAN FLORES Date: 10/02/2024 14:24
[2024-10-01 09:40] LABS: Anion Gap 3.8; BUN Creatinine Ratio 23.1; Carbon Dioxide 39.7 mmol/L (21.0-32.0); Chloride 108 mmol/L (98-107); Estimated GFR (African America >60 (>=60 mL/min/1.73m^2); Estimated GFR (Non-African Ame >60 (>=60 mL/min/1.73m^2); Glucose 109 mg/dL (74-106); Potassium 4.5 mmol/L (3.5-5.1); Sodium 147 mmol/L (136-145)
--- NOTE | 2024-10-01 10:00 | CA_ITS ---
Patient Name: ELISE TABOR MR#: [id number] : 1960 Exam Date: 10/01/2024 Ordering Doctor: DR. BENNY FUENTES M.D. ECHOCARDIOGRAM REPORT PROCEDURE: CA ECHO DOPPLER COMPLETE INDICATIONS: Ischemic Cardiomyopathy, Chronic systolic heart failure COMPARISON: None. DESCRIPTION: COMPLETE ECHOCARDIOGRAM Real-time transthoracic echocardiography with 2D, M-mode, spectral and color flow Doppler performed. QUALITY: Technical quality was adequate. LEFT VENTRICLE: Mild dilatation. Moderate increased left ventricular wall thickness. LV EF: Global left ventricular systolic function is difficult to assess but appears mildly reduced; visually estimated ejection fraction is 40 to 45%. Global hypokinesis. DIASTOLIC: Grade 2 diastolic dysfunction ATRIAL SEPTUM: Inadequately seen. LEFT ATRIUM: Severe dilatation. RIGHT ATRIUM: Mild dilatation. RIGHT VENTRICLE: Mild dilatation. Decreased right ventricular systolic function. TRICUSPID VALVE: Normal mobility and thickness. No stenosis with moderate regurgitation. Moderate pulmonary hypertension. RVSP 56mmHg MITRAL VALVE: Normal mobility and thickness. No evidence of mitral valve stenosis. There is no mitral annular calcification. Mild to moderate mitral regurgitation. AORTIC VALVE: Normal trileaflet appearance. No visible sclerosis. Normal leaflet mobility. No evidence of aortic valve stenosis. Mild to moderate aortic regurgitation. AORTIC ROOT: Mildly dilated. Measuring 4.0cm. PULMONIC VALVE: Normal thickness and mobility. No stenosis. Trivial regurgitation. PERICARDIUM: No evidence of pericardial effusion. IVC: Collapses with inspirations. Moderately dilated measuring 2.7cm. CONCLUSION: 1. Global left ventricular systolic function is difficult to assess but appears mildly reduced; visually estimated ejection fraction is 40 to 45% 2. The right ventricle is mildly dilated with reduced systolic function 3. Moderately increased left ventricular wall thickness 4. The left ventricle is mildly dilated 5. Grade 2 diastolic dysfunction 6. Biatrial dilatation 7. Moderate tricuspid regurgitation 8. Moderately increased right ventricular systolic pressure; RVSP 56 mmHg 9. Mild to moderate mitral regurgitation 10. Mild to moderate aortic valve regurgitation Adult Echocardiography Procedure Report Left Ventricle LVEDD (3.7 - 5.6 cm): 6.22 cm LVESD (2.2 - 4.0 cm): 4.48 cm LVIVS thickness (0.6 - 1.2 cm): 1.91 cm LVPW thickness (0.5 - 1.0 cm): 1.31 cm e': 0.14 m/s E - e': 4.85 LVOT Max Gradient: 2.49 mm[Hg] LVOT Area (cm2): 0.79 m/s Peak Velocity (LVOT): 0.79 m/s Mean Velocity (LVOT): 0.58 m/s LVOT Diameter 1.94 cm Left Ventricular Ejection Fraction: 48.02 % Left Atrium LA Volume Index (2D A2C): 52.44 ml/m2 Left Atrium Systolic Dimension: 5.04 cm Mitral Valve MV E to A Ratio: 0.85 Mitral Valve A-Wave Peak Velocity: 0.78 m/s Mitral Valve E-Wave Peak Velocity: 0.67 m/s Right Ventricle RV Internal Diastolic Dimension: 4.41 cm Aorta AO Root Diam: 4.03 cm Aortic Valve AoV Area (Peak Roger): 2.09 cm2, 2.09 cm2 AoV Area (VTI): 1.89 cm2, 1.89 cm2 Deceleration [place]: 1.98 m/s2 Pressure Half-Time: 480.39 ms Peak Velocity(Antegrade Flow): 1.12 m/s Peak Gradient(Antegrade Flow): 5.01 mm[Hg] Mean Velocity(Antegrade Flow): 0.81 m/s Mean Gradient(Antegrade Flow): 2.93 mm[Hg] Velocity Time Integral: 29.42 cm Tricuspid Valve Peak Velocity (Regurgitant Flow): 2.81 m/s, 3.47 m/s, 2.82 m/s, 3.01 m/s Pulmonic Valve Mean Gradient: 1.34 mm[Hg] Mean Velocity: 0.53 m/s Peak Velocity: 0.81 m/s, 0.91 m/s Peak Gradient: 3.29 mm[Hg], 2.60 mm[Hg] Right Atrium Right Atrium Systolic Pressure: 83.23 ml, 83.23 ml Dictated by: Brandon Lucas M.D. on 10/01/2024 at 13:36 Approved by: Brandon Lucas M.D. on 10/01/2024 at 13:41
== END 2024-10-01 09:13 | disposition home or self-care (01) ==
LOC: LAB 09:12
PROVIDERS: PCP Nurse Practitioner; Visit Provider Internal Medicine Cardiovascular Disease
DX: I71.21 Aneurysm of the ascending aorta, without rupture (principal); I25.5 Ischemic cardiomyopathy; I50.22 Chronic systolic (congestive) heart failure; I11.0 Hypertensive heart disease with heart failure
CPT/HCPCS: 36415; 71275; 80048; 93306; 93356; Q9967

== ENCOUNTER 2024-10-26 11:41 | Outpatient (OUT) | payer MEDICARE, SELFPAY ==
--- OUTSIDE RECORDS SUMMARY | 2024-10-26 11:59 | XMS_ITS | CCD ---
Author Organization [facility] CliniSytx Care Team Providers Care Muff Winder Name Role Phone ERICK MELLISA STOHLER Unavailable [...] Unavail able SAMSA ., DARNELL Admitting Unavailable [facility] Primary Care Unavailable SAMSA ., DARNELL Attending Unavailable SAMSA ., DARNELL Consulting Unavailable SAMSA ., DARNELL Admitting Unavailable [facility] Primary Care Unavailable SAMSA ., DARNELL Attending Unavailable SAMSA ., DARNELL Consulting Unavailable KACIE DEL REAL Unavailable [facility] Primary Care Unavailable SAMSA ., DARNELL Attending Unavailable SAMSA ., DARNELL Consulting Unavailable SAMSA ., DARNELL Admitting Unavailable [facility] Primary Care Unavailable DR DAVID DYER Consulting Unavailable SAMSA ., DARNELL Attending Unavailable SAMSA ., DARNELL Admitting Unavailable SAMSA ., DARNELL Consulting Unavailable Hamlet DOPE WORKER, Pauly Unavailable CARLOS HALL Attending Unavailable CARLOS HALL Attending Unavailable DAVID FISHER Attending Unavailable PREET BILL Referring Unavailable CARLOS HALL Attending Unavailable Kacie Del Real MD Primary Care Provider [place] PROVIDER [employer]WORK [employer] 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 [place] Primary Care Provider EMELY CANTU Referring Unavailable KACIE DEL REAL Primary Care Unavailable GILLIAN TAYLOR Attending Unavailable KACIE DEL REAL Referring Unavailable HAMLET PAULY Primary Care Unavailable BENNY DIAZ Attending Unavailable Allergies Allergy Classification Reported Allergen(s) Allergy Type Date of Onset Reaction(s) Facility (6 sources) Gluten Propensity to adverse reactions 2 GI intolerance [facility] (6 sources) Isosorbide Dinitrate Drug Allergy 2 Headache [facility] (7 sources) Isosorbide; Translations: [ISOSORBIDE MONONITRATE] Drug Allergy 2 Headache [facility] (7 sources) Wheat gluten extract; Translations: [GLUTEN] Drug Allergy 2 [facility] (1 source) ALLERGIES NOT ON FILE; Translations: [ALLERGIES NOT ON FILE] Propensity to adverse reactions (disorder) [facility] Repository Medications Current Medications Medication Drug Class(es) Dates Sig (Normalized) Sig (Original) acetaminophen 300 mg / codeine phosphate 30 mg oral tablet (6 sources) Opioid Agonist Start: 06-12-2023 take 1 tablet by mouth every six hours as needed for pain acetaminophen-code ine (Tylenol w/ Codeine #3) 300-30 MG tablet take 1 tablet by mouth every 6 hours NEEDED FOR PAIN for 5 days 06/12/2023 Active [id number] 200 actuat albuterol 0.09 mg/actuat metered dose inhaler (20 sources) beta2-Adrenergic Agonist albuterol (5 MG/ML) 0.5% nebulizer solution Take 2.5 mg by nebulization every 4 (four) hours if needed for wheezing or shortness of breath. Active take 2 puff(s) by in halation every six hours for wheezing albuterol HFA 90 mcg/act inhaler Inhale 2 puffs every 6 (six) hours if needed for wheezing or shortness of breath. Active take 2.5 mg by inhal ation every four hours as needed for wheezing [...] hours as needed for wheezing. Active albuterol 0.833 mg/ml / ipratropium bromide 0.167 mg/ml inhalation solution (16 sources) Anticholinergic, beta2-Adrenergic Agonist Start: 02-20-2022 ipratropium-albuterol (Duo-Neb) 0.5-2.5 mg/3 mL nebulizer solution Take 3 mL by nebulization in the morning and 3 mL at noon and 3 mL in the evening and 3 mL before bedtime. 02/20/2022 Active Start: 02-20-2022 Ipratropium-Al buterol 0.5-2.5 (3) MG/3ML Inhalation Solution Quantity: 1350 Refills: 0 Ordered: 20-Feb-2022 DO Start : 20-Feb-2022 Active apixaban 5 mg oral tablet (13 sources) Factor Xa Inhibitor Start: 02-19-2024 take 1 tablet by mouth in the morning, then take 1 tablet by mouth at bedtime apixaban (ELIQUIS) 5 mg tablet Take 1 tablet (5 mg total) by mouth in the morning and 1 tablet (5 mg total) before bedtime. 180 tablet 1 02/19/2024 Active Start: 06-04-2023 End: 02-18-2024 take 1 tablet by mouth in the morning apixaban (Eliquis) 5 MG tablet Take 5 mg by mouth in the morning and 5 mg in the evening. 06/04/2023 Active ascorbic acid 1000 mg oral tablet (12 sources) Vitamin C take 1 tablet by mouth in the morning ascorbic acid (Vitamin C) 1000 MG tablet Take 1,000 mg by mouth in the morning. Active aspirin 81 mg delayed release oral tablet (12 sources) Platelet Aggregation Inhibitor, Nonsteroidal Anti-inflammatory Drug Start: 022 take 1 tablet by mouth in the morning aspirin 81 MG EC tablet Take 81 mg by mouth in the morning. 07/25/2022 Active atorvastatin 40 mg oral tablet (14 sources) HMG-CoA Reductase Inhibitor Start: 023 End: 024 take 1 tablet by mouth in the morning atorvastatin (LIPITOR) 40 mg tablet Indications: Coronary artery disease involving coronary bypass graft of ewiiaapaayp heart without angina pectoris , Hx of CABG , Paroxysmal atrial fibrillation (CMS-HCC) , Aneurysm of ascending aorta without rupture (CMS-HCC) , History of maze procedure Take 1 tablet (40 mg total) by mouth in the morning. 90 tablet 1 02/19/2024 Active azithromycin 250 mg oral tablet (6 sources) Macrolide Antimicrobial take 1 tablet by mouth once daily azithromycin (Zithromax) 250 MG tablet Take 250 mg by mouth Daily Active cholecalciferol 0.025 mg oral tablet (18 sources) Vitamin D take 1 tablet by mouth in the morning cholecalciferol (Vitamin D-3) 25 MCG (1000 UT) tablet Take 1,000 Units by mouth in the morning. Active cholecalciferol (Vitamin D-3) 50 MCG (2000 UT) capsule 1 capsule 1 (one) time each day at the same time. Active dicyclomine hydrochloride 20 mg oral tablet (6 sources) Anticholinergic Start: 04-01-2023 take 1 tablet by mouth three times daily for pain dicyclomine (Bentyl) 20 MG tablet take 1 tablet by mouth three times a day if needed for abdominal pain 04/01/2023 Active ferrous sulfate 325 mg delayed release oral tablet (12 sources) take 1 tablet by mouth at mealtime ferrous sulfate 325 (65 Fe) MG EC tablet Take 65 mg by mouth in the morning. Take with meals. Active 30 actuat fluticasone furoate 0.1 mg/actuat / umeclidinium 0.0625 mg/actuat / vilanterol 0.025 mg/actuat dry powder inhaler (10 sources) Anticholinergic, Corticosteroid, beta2-Adrenergic Agonist Start: 03-15-2022 take 1 puff(s) by inhalation in the morning Trelegy Ellipta 100-62.5-25 MCG/ACT aerosol powder Inhale 1 puff in the morning. 03/15/2022 Active Start: 03-15-2022 Trelegy Ellipt a 100-62.5-25 MCG/INH AEPB Quantity: 180 Refills: 0 Ordered: 15-Mar-2022 DO Start : 15-Mar-2022 Active Arpypnowzmq-Xicvfnohp-Aiwppm 200-62.5-25 MCG/ACT aerosol powder (6 sources) Start: 11-19-2022 take 1 puff(s) by inhalation once daily Jkfzdjfoczx-Chxvdtjmd-Qwgpys 200-62.5-25 MCG/ACT aerosol powder Inhale 1 puff 1 (one) time each day. 11/19/2022 Active pzcuzfrtxcd-gwwqsdvyn-fdvius e r (TRELEGY ELLIPTA) 200-62.5-25 mcg blister with device (6 sources) Start: 03-15-2022 gsuzdbnbmnv-rkaldubjr-ebquve e r (TRELEGY ELLIPTA) 200-62.5-25 mcg blister with device 1 puff in the morning. 03/15/2022 Active gabapentin 600 mg oral table t (10 sources) Anti- epile ptic Agent Start: 03-30-2022 take 1 tablet by mouth three times daily gabapentin (NEURONTIN) 600 mg tablet Take 1 tablet (600 mg total) by mouth 3 (three) times a day. 03/30/2022 Active Start: 03-30-2022 Gabapentin 300 MG Oral Capsule Quantity: 270 Refills: 0 Ordered: 30-Mar-2022 DO Start : 30-Mar-2022 Active 24 hr isosorbide mononitrate 30 mg extended release oral tablet (6 sources) Nitrate Vasodilator Start: 06-13-2022 take 1 tablet by mouth in the morning, then take 1 tablet by mouth every twenty-four hours isosorbide mononitrate ER (Imdur) 30 MG 24 hr tablet Take 30 mg by mouth in the morning. 06/13/2022 Active lisinopril 5 mg oral tablet (18 sources) Angiotensin Converting Enzyme Inhibitor Start: 01-20-2023 End: 02-18-2024 take 1 tablet by mouth in the morning lisinopriL (PRINIVIL,ZESTRIL) 5 mg tablet Indications: Coronary artery disease involving coronary bypass graft of ewiiaapaayp heart without angina pectoris , Hx of [...] 14-Mar-2022 Active Ann Marie 500 MG capsule (6 sources) Ann Marie 500 MG caps ule as directed Orally Active 24 hr metoprolol succinate 50 mg extended release oral tablet (16 sources) beta-Adrenergic Melonie Start: 06-25-2023 metoprolol succinate XL (TOPROL XL) 50 mg 24 hr tablet Indications: Coronary artery disease involving coronary bypass graft of ewiiaapaayp heart without angina pectoris , Hx of [...] Active naproxen sodium 220 mg oral tablet (6 sources) Nonsteroidal Anti-inflammatory Drug naproxen sodium (Aleve) 220 MG tablet every 12 (twelve) hours. Active 12 hr naproxen sodium 220 mg / pseudoephedrine hydrochloride 120 mg extended release oral tablet (12 sources) alpha-Adrenergic Agonist, Nonsteroidal Anti-inflammatory Drug take 1 tablet by mouth every twelve hours in the morning pseudoephedrine-Nap roxen Na ER 120-220 MG tablet sustained-release 12 hour Take 1 tablet by mouth in the morning and 1 tablet before bedtime. Active nitroglycerin 0.4 mg sublingual tablet (13 sources) Nitrate Vasodilator Start: End: nitroglycerin (NITROSTAT) 0.4 MG SL tablet Indications: Coronary artery disease involving coronary bypass graft of ewiiaapaayp heart without angina pectoris , Paroxysmal atrial [...] if needed for chest pain. 07/25/2022 Active Start: 07-25-2022 nitroglycerin (NITROSTAT) 0.4 MG SL tablet Indications: Coronary artery disease involving coronary bypass graft of ewiiaapaayp heart without angina pectoris , Paroxysmal atrial fibrillation (CMS-HCC) , Aneurysm of ascending aorta without rupture (CMS-HCC) , Hx of CABG , History of maze procedure 1 under the tongue as needed for angina, may repeat q5mins for up three doses 100 tablet 4 07/25/2022 Active ofloxacin 3 mg/ml otic solution (6 sources) Quinolone Antimicrobial Start: 02-17-2023 ofloxacin (Floxin) 0.3 % otic solution Indications: Otorrhea of right ear Administer 5 drops into the right ear in the morning and 5 drops before bedtime. 10 mL 02/17/2023 Active omeprazole 40 mg delayed release oral capsule (16 sources) Proton Pump Inhibitor Start: 03-19-2022 take 1 capsule by mouth in the morning omeprazole (PriLOSEC) [address] capsule Take 40 mg by mouth in the morning. 03/19/2022 Active Start: 03-19-2022 Omeprazole 40 MG Oral Capsule Delayed Release Quantity: 90 Refills: 0 Ordered: 19-Mar-2022 DO Start : 19-Mar-2022 Active Oxygen (6 sources) oxygen Inhale continuously. Active predniSONE 20 mg oral tablet (6 sources) take 1 tablet by mouth once daily predniSONE (Deltasone) 20 MG tablet Take 20 mg by mouth Daily Active pregabalin 150 mg oral capsule (8 sources) Start: 09-09-2024 take 1 capsule by mouth three times daily at bedtime pregabalin (Lyrica) 150 MG capsule Indications: DDD (degenerative disc disease), lumbar , Lumbosacral radiculopathy TAKE 1 CAPSULE BY MOUTH THREE TIMES DAILY (IN THE MORNING, IN THE EVENING and BEFORE bedtime) 270 capsule 09/09/2024 Active Start: 02-18-2024 End: 09-09-2024 take 1 capsule by mouth in the [...] (150 mg) before bedtime. 270 capsule 05/17/2024 09/09/2024 Discontinued roflumilast 0.5 mg oral tablet (16 sources) Phosphodiesterase 4 Inhibitor Start: 03-15-2022 take 1 tablet by mouth in the morning Daliresp 500 MCG tablet Take 500 mcg by mouth in the morning. 03/15/2022 Active saw palmetto (Serenoa repens) 450 MG capsule (6 sources) saw palmetto (Serenoa repens) 450 MG capsule as directed Orally Active soybean lecithin 1200 mg oral capsule (6 sources) take 1 capsule by mouth once daily Lecithin 1200 MG capsule Take 1 capsule every day by oral route. Active SUMAtriptan 100 mg oral tablet (6 sources) Serotonin-1b and Serotonin-1d Receptor Agonist SUMAtriptan (Imitrex) 100 MG tablet PLEASE SEE ATTACHED FOR DETAILED DIRECTIONS Active TESTOSTERONE, BULK, MISC (6 sources) TESTOSTERONE, BULK, MISC by miscellaneous route. 100 mg 1 tablet daily Active theophylline 400 mg extended release oral tablet (12 sources) Methylxanthine Start: 01-16-2023 take 1 tablet by mouth in the morning, then take 1 tablet by mouth every twenty-four hours at bedtime theophylline ER (Uniphyl) 400 MG 24 hr tablet Take 400 mg by mouth in the morning and 400 mg before bedtime. 01/16/2023 Active take 1 capsule by [facility] every twenty-four hours in the morning theophylline (BRYAN-24) 400 MG 24 hr capsule Take 1 capsule (400 mg total) by mouth in the morning. Active vitamin b12 1 mg oral tablet (18 sources) Vitamin B12 take 1 tablet by mouth in the morning cyanocobalamin (Vitamin B-12) 1000 MCG tablet Take 1,000 mcg by mouth in the morning. Active cyanocobalamin ( Vitamin B-12) 500 MCG tablet 1 (one) time each day at the same time. Active zinc gluconate 50 mg oral ta blet (12 sources) zinc gluconate 5 0 MG tablet 1 (one) time each day at the same time. Active Completed/Discontinued Medications Medication Drug Class(es) Dates Sig (Normalized) Sig (Original) lysine 500 mg oral tablet (5 sources) End: 06-24-2024 take 1 tablet by mouth in the morning lysine 500 mg tablet Take 1 tablet (500 mg total) by mouth in the morning. 06/24/2024 Discontinued zonisamide 25 mg oral capsule (5 sources) Anti-epileptic Agent End: 06-24-2024 take 1 [...] Episodic/Chronic Aortic; peripheral; and visceral artery aneurysms (19 sources) Aneurysm of thoracic aorta; Translations: [Thoracic aneurysm without mention of rupture] Onset: 2 02-13-2023 Chronic Cardiac dysrhythmias (20 sources) Atrial fibrillation; Translations: [Atrial fibrillation] Onset: 2 02-13-2023 Chronic Chronic obstructive pulmonary disease and bronchiectasis (18 sources) Chronic obstructive lung disease; Translations: [Chronic airway obstruction, not elsewhere classified] Onset: 8 Resolved: 3 Chronic Complication of device; implant or graft (19 sources) Arteriosclerosis of coronary artery bypass graft; Translations: [Atherosclerosis of coronary artery bypass graft(s) without angina pectoris] Onset: 2 02-13-2023 Chronic Congestive heart failure; nonhypertensive (2 sources) Chronic systolic (congestive) heart failure; Translations: [Chronic systolic (congestive) heart failure] Onset: 4 Chronic Coronary atherosclerosis and other heart disease (8 sources) Coronary arteriosclerosis; Translations: [Coronary atherosclerosis of unspecified type of vessel, ewiiaapaayp or graft] Onset: 4 Chronic Disorders of lipid metabolism (6 sources) Mixed hyperlipidemia; Translations: [Mixed hyperlipidemia] Onset: 4 06-24-2024 Chronic Essential hypertension (10 sources) Hypertensive disorder; Translations: [Unspecified essential hypertension] Onset: 4 06-24-2024 Chronic Melanomas of skin (4 sources) H/O Malignant melanoma; Translations: [Personal history of malignant melanoma of skin] Episodic Other aftercare (4 sources) Encounter for therapeutic drug level monitoring; Translations: [ENC THERAPEUTC DRUG LEVL MONITORING] Onset: 3 Episodic Other aftercare (2 sources) group home (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 of 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; Translations: [group home (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 of 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] Onset: 4 [...] blood-forming organs] Episodic Other nervous system disorders (6 sources) Neuropathy; Translations: [Polyneuropathy, unspecified] Onset: 4 [...] index (BMI) 35.0-35.9, adult] Onset: 4 Chronic Spondylosis; intervertebral disc disorders; other back problems (10 sources) Degeneration of lumbar intervertebral disc; Translations: [DDD (degenerative disc disease), lumbar] Onset: 4 01-20-2024 Chronic Spondylosis; intervertebral disc disorders; other back problems (11 sources) Cervicalgia; Translations: [Neck pain] Onset: 8 Resolved: 3 10-20-2023 Episodic Unclassified (1 source) Neck Pain / [id number]() Onset: 8 Unclassified (1 source) Stiffness / 343() Onset: 8 Unclassified (1 source) Back Pain / 12() Onset: 8 Unclassified (1 source) Upper Extremity Weakness / [id number]() Onset: 8 Unclassified (1 source) Aneurysm of the ascending aorta, without rupture; Translations: [Aneurysm of the ascending aorta, without rupture] Onset: 4 Unclassified (1 source) Obesity, class 2; Translations: [Obesity, class 2] Onset: 4 Past or Other Problems Problem Classification Problem Date Documented Da te Episodic/Chronic Cardiac dysrhythmias (6 sources) Sinus tachycardia; Translations: [Tachycardia, unspecified] Onset: 01-22-2018 Resolved: 06-27-2023 06-27-2023 Episodic Headache, including migraine (9 sources) Headache; Translations: [Occipital headache] Onset: 04-08-2018 Resolved: 06-27-2023 06-27-2023 Episodic Other gastrointestinal disorders (6 sources) Celiac disease; Translations: [Celiac disease] Onset: 03-04-2019 Resolved: 06-27-2023 06-27-2023 Chronic Other nervous system disorders (6 sources) Polyneuropathy; Translations: [Polyneuropathy, unspecified] Onset: 06-27-2023 Resolved: 06-27-2023 06-27-2023 Chronic Other nervous system disorders (6 sources) Paresthesia; Translations: [Paresthesia of skin] Onset: 01-20-2024 01-20-2024 Episodic Residual codes; unclassified (15 sources) History of maze procedure for atrial fibrillation; Translations: [Other specified postprocedural states] Onset: 05-20-2022 02-13-2023 Episodic Screening and history of mental health [...] Test Name Value Interpretation Reference Range Facility 36on 10-07-2024 36 Regarding echo and C TA chest performed on 10/01/2024: MD Danni Hagan MA Ejection fraction appears to be the same as before, still mildly reduced. The valvular abnormalities are mildly worse than before. I recommend to reduce lisinopril to 2.5 mg daily and start Aldactone 25 mg daily. Also start Farxiga 10 mg daily. Repeat BMP in 1 week. Let me know if he cannot afford Farxiga. Please inform patient that the ascending aorta size is stable. Will repeat chest CT in 1 year Spoke with patient. He will decrease lisinopril and add spironolactone and Farxiga. Asked him to bring in his red, white, and blue Medicare care to apply for Farxiga patient assistance program. Free 30 day voucher also provided for patient. BMP order given to be done in 1 week. LIPID,AST,ALT orders given to him to be completed in 2 months after increasing atorvastatin per Dr. Diaz. He verbalized understanding. [facility] Office Visiton 08-16-2024 Follow-up visit [id number] Armando Tabor 1960 M Date Provider Department Center 08/16/2024 [id number] DIAZ [facility] Family History Problem Relation Age of Onset Coronary artery disease Mother Coronary artery disease Father Family Status - Relation Status Age at Mother Father Level of Service:64653 NE OFFICE/OUTPATIENT NEW MODERATE MDM 45 MINUTES Reason for Visit and Comments: Atrial Fibrillation [80] - Had EKG at last apt with [facility] in Jun 2024. Denies chest pain and bleeding on Eliquis. Coronary Artery Disease [187] - CABG and MAZE in 2016 Hypertension [543039] Hyperlipidemia [182] COPD [313] - Sees Dr. Alicea [facility] POCT EKGOrdered By: Juana Hercules on 06-24-2024 [facility] EMG 1 Extremeityon 4 [facility] NVC 7-8 Nerveson 06-08-2024 [facility] THEOPHYLLINEon 12-30-2022 THEOPHYLLINE 18.0 ug/mL Normal 10.0-20.0 [facility] Comment on above: Performed By: #### T ADALID #### [facility] [address], [place] [address] Dr. Karen Lee THEOPHYLLINEon 12-17-2022 THEOPHYLLINE 8.3 ug/mL Critically low 10.0-20.0 [facility] Comment on above: Performed By: #### T ADALID #### [facility] [address], [place] [address] Dr. Karen Lee Blood Pressure Cuff Sizeon [...] Powder Breath Activated Vitals Vital Signs Recorded: [id number] 02:58PM Bpgfmuxeiqt17.2 F Heart Rate91 Jreaplzorsf39 Ogxxncbh184 Vinckouij14 Blood Pressure Cuff SizeLarge Height5 ft 7.32 in Wzyhox714 lb 7 oz BMI Kngcepewvm46.15 kg/m2 BSA Calculated2.19 Tobacco Useb) No Falls Screening (Age 18+)a) No falls within the last year O2 Hheiepsnjd77, Nasal Cannula Pain Scale7 Physical Exam The [...] May 29 2022 3:24PM EST (Author) Normal Daily [place] Referral Letteron 022 Referral Letter Mr. Tabor [...] May 29 2022 3:24PM EST (Author) Normal Daily [facility] CT LUNG CANCER SCREENINGon 0 04-26-2022 CT [...] DAVID DYER Date: 2022-04-26 16:20 Normal [facility] HEMOGLOBINon 04-26-2022 Hemoglobin (Bld) [Mass/Vol] 13.6 g/dL Critically low 14.0-18.0 [facility] Comment on above: Performed By: #### H GB #### [facility] [address] [place] [address] [address] Karen Lee Progress Noteson 06-04-2018 Protein mass conc [facility]YProgress Notes by Jacquelyn Rivera [...] Pt self discharged with last txsession with DIRECTOR OF MATERIALS MANAGEMENT.Patient is being discharged due to not returning to therapy and/or Plan of Care being .Recommend patient continue with HEP previously instructed on during therapy as appropriate.Patient may be reinstated in therapy upon new evaluation and orders from the physician.Thank You. [facility] Progress Noteson 04-23-2018 Protein mass conc Encounter [facility] : [facility] THERAPYProgress Notes by Berlin Valle PTA at 04/23/2018 9:00 AMAuthor: Berlin Valle PTAService: (none)Author Type: Physical Therapy AssistantFiled: 04/23/2018 9:46 AMEncounter Date: 04/23/2018Status: SignedEditor: Berlin Valle PTA (Community Living Specialist)Physical Therapy Treatment NoteVisit Number: 5Encounter diagnosis:ICD-10-CM1.Cervical giaM54.22.Headache in back of oildK77Vgnilol Medical Diagnosis:SUBJECTIVE: Pt requests today being his [...] t-band- Scap retract x15- B UE ext b65Xjta tucks x15GTB rows 9a17Xksvtd- STM along c-spine paraspinals, UT, and levator [...] in rotation and SB without increase in pain.Fpc Goals: LTG to be met by 06/08/18 [...] Time: 10Total Treatment Time: 25 PT Treatment [facility] Progress Noteson 04-21-2018 Protein mass conc Encounter Department : [facility] REHAB THERAPYProgress Notes by Berlin Valle PTA at 04/21/2018 9:00 AMAuthor: Berlin Valle PTAService: (none)Author Type: Physical Therapy AssistantFiled: 04/21/2018 9:46 AMEncounter Date: 04/21/2018Status: SignedEditor: Berlin Vlale PTA (Community Living Specialist)Physical Therapy Treatment NoteVisit Number: 4Encounter diagnosis:ICD-10-CM1.Cervical giaM54.22.Headache in back of [id number] Medical Diagnosis: CervicalgiaSUBJECTIVE:Complia nce with HEP: Pt [...] t-band- Scap retract x15- B UE ext o56Eccf tucks x15GTB rows 4o13Nkndeg- STM along c-spine paraspinals, UT, and levator scap regions- Suboccipital releaseHEP: chin tuck, UT and LS stretch, scap squeeze.Mechanical traction 18 -10 intermittent 10 minutes. Mechanical traction 25 -18 intermittent 15minutes. Modalities- Traction 25/18# x15'Modalities- Traction /18# x15'Education completed: Education completed with patient and [...] in rotation and SB without increase in pain.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 Technician Goals: LTG to be met by 06/08/18 [...] Time: 17Total Treatment Time: 32 PT Treatment [facility] Progress Noteson 04-16-2018 Protein mass conc Encounter [facility] THERAPYProgress Notes by Collette Villanueva PTA at 04/16/2018 9:00 AMAuthor: Collette Villanueva PTAService: (none)Author Type: Physical Therapy AssistantFiled: 04/16/2018 12:11 PMEncounter Date: 04/16/2018Status: SignedEditor: Collette Villanueva PTA (Community Living Specialist)Physical Therapy Treatment NoteVisit Number: 3Encounter diagnosis:ICD-10-CM1.Cervical giaM54.22.Headache in back of uakvL26Caefekw Medical Diagnosis: CervicalgiaSUBJECTIVE:Complia nce with HEP: Patient [...] t-band- Scap retract x15- B UE ext a30Rrda tucks x15GTB rows 4u65Urdumb- STM along c-spine paraspinals, UT, and levator [...] in rotation and SB without increase in pain.Fpc Goals: LTG to be met by 06/08/18 [...] Time: 28Total Treatment Time: 43 PT Treatment [facility] Progress Noteson 04-10-2018 Protein mass conc Encounter Department : [facility] REHAB THERAPYProgress Notes by Berlin Valle PTA at 04/10/2018 9:00 AMAuthor: Berlin Valle PTAService: (none)Author Type: Physical Therapy AssistantFiled: 04/10/2018 10:21 AMEncounter Date: 04/10/2018Status: SignedEditor: Berlin Valle PTA (Community Living Specialist)Physical Therapy Treatment NoteVisit Number: 2Encounter diagnosis:ICD-10-CM1.Cervical giaM54.22.Headache in back of [id number] Medical Diagnosis: CervicalgiaSUBJECTIVE:Complia nce with HEP: Pt [...] UT stretch 3x 30'Chin tucks x15GTB rows [id number]: chin tuck, UT and LS stretch, scap [...] in rotation and SB without increase in pain.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 Technician Goals: LTG to be met by 06/08/18 [...] Time: 30Total Treatment Time: 45 PT Treatment [facility] Progress Noteson 04-08-2018 Protein mass conc Encounter [facility]Progress Notes by Jacquelyn Rivera PT at 04/08/2018 1:45 PMAuthor: Jacquelyn Rivera PTService: (none)Author Type: Physical TherapistFiled: 04/08/2018 6:47 PMEncounter Date: 04/08/2018Status: SignedEditor: Jacquelyn Rivera PT (Physical Therapist)Physical Therapy EvaluationEncounter diagnosis:ICD-10-CM1.Cervical giaM54.22.Headache in back of [id number] provider: Mellisa Clarke,*Primary Medical Diagnosis: CervicalgiaPlan of [...] Home: 15Prior Level of Functioning: Level of [place]: [facility] Level of Functioning: Outcome Score: NDI (26 raw score NDI, 52% disability) Functional deficits: reports no functional deficits, able to do everything just withincreased pain. Level of [place]: Modified IndependentSleep Status/Sleep Hygiene: Preferred Sleep Position: [...] codes)[id number] Mobility Current Status; Severity: CK 40-59% [id number] Mobility Goal Status; Severity: CI 1-19% impairedOutcome measure(s)/Test(s) used/Result(s): 52% disability on NDI.Clinical Judgment: Moderate to severe impairement, decreased neck ROM and strength, tenderness totrigger points moderateNew Category to Gjntph-Mb-Mlxg only?:NoEvaluation Breakdown DescriptionPatient HistoryComorbiditiesEnvironme ntal/Personal factorsLearning/CognitionDome stic [...] in rotation and SB without increase in pain.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 Goals: LTG to be met by 06/08/18 [...] Time: 60Time in: 1:44Time Out: 2:45 PT [facility] Vital Signs Date Time Vital Sign Value Performing Clinician Facility 06-24-2024 13:52-0400 Body height 172.7 cm Gillian Taylor MD Work Phone: [email or web address] 06-24-2024 13:52-0400 Body mass index (BMI) [Ratio] 37.26 kg/m2 Gillian Taylor MD Work Phone: [facility] 06-24-2024 13:52-0400 Body weight 111.13 kg Gillian Taylor MD Work Phone: [facility] 06-24-2024 13:52-0400 Diastolic blood pressure 62 mm[Hg] Gillian Taylor MD Work Phone: [facility] 06-24-2024 13:52-0400 Heart rate 74 /min Gillian Taylor MD Work Phone: [facility] 06-24-2024 13:52-0400 SaO2% (BldA) [Mass fraction] 94 % Gillian Taylor MD Work Phone: [facility] 06-24-2024 13:52-0400 Systolic blood pressure 122 mm[Hg] Gillian Taylor MD Work Phone: [facility] 06-09-2024 11:17-0400 Body height 172.7 cm Carlos Hall PA Work Phone: [facility] 06-09-2024 11:17-0400 Body mass index (BMI) [Ratio] 38.01 kg/m2 Carlos Hall PA Work Phone: [facility] 06-09-2024 11:17-0400 Body weight 113.4 kg Carlos Hall PA Work Phone: [facility] 06-09-2024 11:17-0400 Diastolic blood pressure 84 mm[Hg] Carlos Hall PA Work Phone: [facility] 06-09-2024 11:17-0400 Heart rate 78 /min Carlos Hall PA Work Phone: [facility] 06-09-2024 11:17-0400 Respiratory rate 16 /min Carlos Hall PA Work Phone: [facility] 06-09-2024 11:17-0400 SaO2% (BldA) [Mass fraction] 93 % Carlos LI Work Phone: [facility] 06-09-2024 11:17-0400 Systolic blood pressure 132 mm[Hg] Carlos LI Work Phone: [facility] 05-29-2022 14:58-0400 Body height 170.99 cm [...] Date Encounter Type Care Provider Facility Start: 09-07-2024 End: 09-09-2024 Refill Carlos LI Work Phone: [facility] Comment on above: DDD (degenerative di sc disease), lumbar; Lumbosacral radiculopathy Start: 08-16-2024 End: 08-16-2024 ambulatory [facility] Start: 07-29-2024 End: 08-03-2024 Refill Pablo TOVAR Work Phone: [facility] Comment on above: Med Refill Start: 06-24-2024 End: 06-24-2024 Office outpatient visit 25 minutes Gillian Taylor MD Work Phone: [facility] Comment on above: Coronary artery dise ase involving coronary bypass graft of ewiiaapaayp heart without angina pectoris (Primary Dx); Paroxysmal atrial fibrillation ([facility]CC); Primary hypertension; Mixed hyperlipidemia; Left ventricular dysfunction Start: 06-24-2024 End: 06-24-2024 ambulatory GILLIAN TAYLOR [facility] Start: 06-23-2024 End: 06-23-2024 Telephone encounter Juana Hercules [facility] Start: 06-09-2024 End: 06-09-2024 Office outpatient visit 15 minutes Carlos LI Work Phone: [facility] Comment on above: 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 with discogenic back pain and lower extremity pain (Primary Dx); Neck pain; Chronic daily headache; Tremor Start: 06-09-2024 End: 06-09-2024 ambulatory CARLOS HALL Not Available Start: 06-08-2024 End: 06-08-2024 Bamboo flowsheet David Fisher MD Work Phone: [facility] Start: 06-08-2024 End: 06-08-2024 Bamboo flowsheet David Fisher MD Work Phone: [facility] [place] [address] [facility] Start: 06-08-2024 End: 06-08-2024 Patient encounter procedure [facility] Comment on above: Carpal tunnel syndro me of left wrist (Primary Dx) Start: 06-08-2024 End: 06-08-2024 ambulatory DAVID FISHER Not Available Start: 05-17-2024 End: 05-17-2024 ambulatory EMELY CANTU [facility] Comment on above: DDD (degenerative di sc disease), lumbar; Lumbosacral radiculopathy Start: 04-30-2024 End: 04-30-2024 Telephone [facility] Start: 03-15-2024 End: 03-15-2024 ambulatory CARLOS HALL Not Available Start: 02-18-2024 End: 02-19-2024 Refill Neisha Weathers RN [facility] Comment on above: Med Refill Start: 01-24-2024 End: 01-28-2024 Refill Elise Borjas MD Work Phone: [facility] Comment on above: Med Refill Start: 01-21-2024 End: 01-21-2024 ambulatory CARLOS HALL Not Available Start: 12-30-2022 End: 12-31-2022 ambulatory DARNELL [facility] . Facility:H1 Start: 12-17-2022 End: 12-18-2022 ambulatory DARNELL ALICEA . Facility:H1 Start: 06-17-2022 AUDIT Referring Prov ider Unknown MG-Pulm Sleep-[place] 1800 Work Phone: Start: 05-29-2022 Office outpatient ne w 45 minutes Referring Provider Unknown MG-CT Surgery-[place] Work Phone: Start: 05-29-[address] Popeye [facility]ia [facility]ity:[facility] Start: 05-21-2022 End: 08-14-[address] [facility] Facility:H1 Start: 04-26-2022 End: 04-27-2022 ambulatory [facility] Facility: Start: 04-23-2018 End: 04-23-2018 [facility] Start: 04-21-2018 End: 04-21-2018 Patient encounter BERLIN Demarco [facility] Start: 04-16-2018 End: 04-16-2018 Patient encounter COLLETTE VILLANUEVA [facility] Start: 04-10-2018 End: 04-10-2018 Patient encounter BERLIN Demarco [facility] Start: 04-08-2018 End: 04-08-2018 Patient encounter MELLISA CLARKE [facility] Patient encounter status Referri ng Provider Unknown [...] coronary artery bypass grafting Hx of CABG Elise Borjas MD Work Phone: Cataract surgery Referring P romikayla Unknown Coronary artery bypa ss graft Referring Provider Unknown Hernia repair Referring Prov ider Unknown History of coronary artery bypass grafting Hx of CABG Pablo Zaragoza PROVIDER NETWORK MGR-PATIENT EXPERIENCE COORDINATOR Work Phone: History of coronary artery bypass grafting Hx of CABG Neisha Weathers RN History of coronary artery bypass grafting Hx of CABG Elise Borjsa MD Work Phone: Prosthetic arthropla sty of shoulder Referring Provider Unknown Total replacement of hip Ref erring Provider Unknown Plan of Treatment Date Care Activity Detail Author Start: 08-13-2033 DTaP,Tdap and Td Vaccines (2 - Td or Tdap) DTaP,Tdap and Td Vaccines (2 - Td or Tdap) [facility] Happy Inspector [facility] Start: 06-24-2025 Adult BMI Screening Adult BMI Screen ing [facility] Start: 06-24-2025 Tobacco Screening Tobacco Screening [facility] Start: 12-21-2024 End: 12-21-2024 Patient encounter procedure 12/21/2024 10:40 AM EDT Office Visit [facility] [address] [place] [address] Carlos Hall PA [address] [place] [address] [facility] Start: 07-29-2024 Adult BMI Screening Adult BMI Screen ing [facility] Start: 07-29-2024 Tobacco Screening Tobacco Screening [facility] Start: 06-24-2024 End: 06-24-2025 CT Chest WO and CT angiogram Coronary arteries W contrast IV CT angiogram chest Imaging Routine Coronary artery disease involving coronary bypass graft of ewiiaapaayp heart without angina pectoris Expected: 06/24/2024, Expires: 06/24/2025 [facility] Comment on above: Expected: 06/24/2024 , Expires: 06/24/2025 Start: 06-24-2024 End: 06-24-2025 Echo complete W/O contrast Echo complete W/O contrast Echocardiography Routine Coronary artery disease involving coronary bypass graft of ewiiaapaayp heart without angina pectoris Expected: 06/24/2024, Expires: 06/24/2025 [facility] Comment on above: Expected: 06/24/2024 , Expires: 06/24/2025 Start: 06-24-2024 End: 06-24-2024 Patient encounter procedure 06/24/2024 2:00 PM EDT Office Visit [facility] [address] [place] [id number] Gillian Taylor MD [address] [place] [address] [facility] Start: 06-09-2024 End: 06-09-2024 Patient encounter procedure 06/09/2024 11:20 AM EDT Office Visit [facility] [address] [place] [address] Carlos Hall PA [address] [place] [address] JAMIN SANTIAGO [facility] Start: 06-08-2024 End: 06-08-2024 Patient encounter procedure [facility] [place] [facility] Comment on above: Arrived Start: 05-09-2024 Influenza vaccination N [facility] Start: 2010 Administration of varicella zoster vaccine Zoster (Shingles) Vaccine (1 of 2) [facility] Start: 1979 DTaP,Tdap and Td Vaccines (1 - Tdap) DTaP,Tdap and Td Vaccines (1 - Tdap) [facility] Start: 1978 Adult BMI Follow Up Plan Adult BMI F ollow Up Plan [facility] Start: 1972 Depression Screening Depression Scre ening [facility] Start: 1960 Screening for malign ant neoplasm of colon [facility] End: 06-24-2025 CBC panel - Blood by Automated count CBC Lab Routine Paroxysmal atrial fibrillation ([facility]) 1 Occurrences starting 06/24/2024 until 06/24/2025 [facility] Comment on above: 1 Occurrences starti ng 06/24/2024 until 06/24/2025 End: 06-24-2025 Comprehensive metabolic 2000 panel - Serum or Plasma CMP Lab Routine Primary hypertension 1 Occurrences starting 06/24/2024 until 06/24/2025 [facility] Comment on above: 1 Occurrences starti ng 06/24/2024 until 06/24/2025 End: 06-24-2025 Lipid panel Lipid panel Lab Routine Mixed hyperlipidemia 1 Occurrences starting 06/24/2024 until 06/24/2025 [facility] Work Phone: Comment on above: 1 Occurrences starti ng 06/24/2024 until 06/24/2025 Immunizations Immunization Date Immunization Notes Care Provider Danial larios 08-13-2023 influenza virus vaccine, unspecified formulation Yuri Chapa MA [facility] 05-23-2021 influenza, high dose seasonal, preservative-free Yuri Chapa MA [facility] 05-23-2021 influenza virus vaccine, unspecified formulation Elise Borjas MD Work Phone: [email or web address] 10-25-2020 Pfizer Purple Cap SARS-CoV-2 Vaccination Yuri Chapa MA [facility] 09-20-2020 Pfizer Purple Cap SARS-CoV-2 Vaccination Yuri Chapa MA [facility] Payers Date Payer Category Payer Medicare (Managed Care) [employer] [id number] 2019 Medicare [id number] 2019 Medicare HMO [facility] MEDICARE [id number] 1960 Unknown [id number]. [id number] 1960 Unknown [id number] [id number]. 2.593 1960 Unknown [id number] [id number]. 2.593 1960 Unknown [id number] [id number]. 2.593 1960 Unknown [id number] [id number]. 2.593 1960 Unknown [id number] [id number]. 2.1259 1960 Unknown [id number] [id number]. 2.1259 1960 Unknown [id number] [id number]. 2.1259 1960 Unknown [id number] [id number]. 2.1259 1960 Unknown [id number] [id number]. 2.1286 1960 Unknown [id number]. 2.1286 1959 Medicare [id number] Unknown Social History Date Type Detail Facility Start: 07-29-2023 End: 03-15-2024 Social alcohol use Social alcohol use [facility] Start: 05-20-2022 End: 03-15-2024 Tobacco smoking status TNIS Ex-smoker [facility] Start: 09-08-1974 End: 09-08-2009 History of tobacco use Current smoker [facility] Start: 09-08-1974 End: 09-08-2009 History of tobacco use Cigarette Smoker [facility] Start: 05-20-2022 End: 03-15-2024 Tobacco use and exposure Smokeless tobacco non-user [facility] Start: 03-15-2024 End: 06-09-2024 Alcoholic beverage intake Lifetime non-drinker (finding) [facility] Start: 07-29-2023 End: 03-15-2024 Tobacco use panel [facility] Start: 02-13-2023 Alcohol Comment ocassionally [facility] Start: 1960 Sex assigned at Male [facility] Start: 02-21-2023 Gender identity Identifies as male gender (finding) [facility] Start: 07-29-2023 End: 06-24-2024 Alcoholic beverage intake Ex-drinker (finding) [facility] Within the past 12 months we worried whether our food would run out before we got money to buy more. Never True [facility] Start: 05-20-2022 Alcohol Comment ocassional [facility] Start: 1960 Sex assigned at Not on file [facility] Start: 03-22-2022 Sex Male (finding) [facility] Clinical Notes 04-30-2024 to 09-09-2024 Telephone Encounter - Yuri Chapa MA - 09/09/2024 8:59 AM ESTTelephone Encounter - Yuri Chapa MA - 09/09/2024 8:59 AM ESTTelephone Encounter - Diana Munguia LPN - 07/29/2024 9:20 AM EST Note Date & Type Note Facility 09-09-2024 Telephone encounter Note 06/09/2024 Continue Lyrica 150mg PO TID for neuropathic pain [facility] reviewed. Last filled 05/17/2024 for 90 day supply. Due 08/15/2024 [facility] 09-09-2024 Miscellaneous Notes 06/09/2024 Continue Lyrica 150mg PO TID for neuropathic pain [facility] reviewed. Last filled 05/17/2024 for 90 day supply. 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 male with history of coronary artery disease and coronary artery bypass surgery and maze procedure, paroxysmal atrial fibrillation, s/p ablation in [place], thoracic aortic aneurysm, left ventricle dysfunction, hypertension, hyperlipidemia COPD, prior tobacco and alcohol abuse He used to follow with [facility] cardiology. He states that overall he [...] past medical history of Abnormal ECG, Aneurysm (CMS/HCC), Arrhythmia, Atrial fibrillation (CMS/HCC), Cardiomyopathy (CMS/HCC), COPD (chronic obstructive pulmonary disease) (CMS/HCC), Coronary artery disease, Hyperlipidemia, and Hypertension. Surgical [...] or gallops. RESPIR (more content not included)... [facility] 07-29-2024 Miscellaneous Notes [facility] 06/24/24 documented in this encounter [email or web address] 07-29-2024 Telephone encounter Note [facility] 06/24/24 [email or web address] 06-24-2024 History of Present illness Narrative Elise Tabor Date of visit: 06/24/2024 Date of : 1960 Age: 64 y.o. Patient Active Problem List Diagnosis Coronary artery disease involving coronary bypass graft of ewiiaapaayp heart without angina pectoris Paroxysmal atrial fibrillation [...] 65 mg by mouth daily with breakfast. pllttdwsnxd-xqcvkingr-uwfzpncx (TRELEGY ELLIPTA) 200-62.5-25 mcg blister with device [...] route. 100 mg 1 tablet daily theophylline (BRYAN-24) 400 MG 24 hr capsule [...] atrial fibrillation despite the reported ablation in [place], continue on anticoagulation. We discussed this again [...] History: Diagnosis Date Arthritis Ascending aortic aneurysm ([facility]-HCC) Atrial fibrillation ([facility]) Celiac disease COPD (chronic obstructive pulmonary disease) ([facility]-H[facility]) Coronary artery disease with history of coronary [...] artery disease involving coronary bypass graft of ewiiaapaayp heart without angina pectoris - POCT EKG - CT angiogram chest; Future - Echo complete W/O contrast; Future 2. Paroxysmal atrial fibrillation (CMS-HCC) - CBC; Future 3. Primary hypertension - CMP; Future 4. Mixed hyperlipidemia - Lipid panel; Future 5. Left ventricular dysfunction 1. ASCVD without angina --history of CABG with Maze --WALTERS to the LAD 2015 in [place] 2. Cardiomyopathy -ischemic versus related to alcohol [...] LORENZO Referring Physician: Kacie Del Real MD [address] [place] [address] documented in this encounter [facility] 06-24-2024 Instructions Gillian Taylor MD - 06/24/2024 2:00 PM EDT Laboratory studies CTA of the aorta Echocardiogram documented in this encounter [facility] 06-23-2024 Miscellaneous Notes Called patient to remind them to bring their most current copy of their medication list with them to their appt. Patient verbalizes understanding. documented in this encounter [facility] 06-23-2024 Telephone encounter Note Called patient to remind them to bring their most current copy of their medication list with them to their appt. Patient verbalizes understanding. [facility] 06-09-2024 History of Present illness Narrative [...] handles -admits hand weakness -some trouble with rehabilitation construction specialist ROS Review of Systems Constitutional: Negative for [...] CN II: Visual acuity is normal. Visual smtih full to confrontation. CN III, IV, : [...] triceps, wrist extensors, wrist extensors, wrist flexor, rehabilitation construction specialist strength 5/5. LUE Strength deltoid, biceps, triceps, wrist extensors, wrist extensors, wrist flexor, rehabilitation construction specialist strength 5/5. RLE Strength illopsoas, quadriceps, tibialis [...] or worsening symptoms documented in this encounter [facility] 06-08-2024 History of Present illness Narrative Images from the original note were not included. Reason for Appointment: EMG Patient: Elise Taobr : 1960 EMG Computer: [employer] 1 Referring Physician: Preet Bill PA-C EMG: WALTER physician: Vera Zuñiga CMA Office Location: [place] Reason for EMG: c/o pain and paresthesia in the arm from the shoulder down. No Hx of DM, takes Eliquis and ASA Comments: Procedure explained to the patient who expressed understanding. 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 Please advise. Thank you! 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 This is something we would need to discuss in more detail. We usually continue anticoagulation despite the atrial fibrillation burden. Some position. Anticoagulation if no recurrence in atrial fibrillation but that is not the guideline recommendations. Would need more discussion with patient before making this decision. Recommend 30 day MCOT then follow-up appointment to discuss further. Would continue Eliquis in the meantime. 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 Please advise. Thank you! 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 [facility] Happy Inspector [facility] 04-30-2024 Telephone encounter Note This is something we would need to discuss in more detail. We usually continue anticoagulation despite the atrial fibrillation burden. Some position. Anticoagulation if no recurrence in atrial fibrillation but that is not the guideline recommendations. Would need more discussion with patient before making this decision. Recommend 30 day MCOT then follow-up appointment to discuss further. Would continue Eliquis in the meantime. 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 [facility] Evaluation note Diagnosis Carpal tunnel syndrome of left wrist- Primary [facility] Diagnosis Degeneration of intervertebral disc of lumbar region with discogenic back pain and lower extremity pain- Primary Neck pain Cervicalgia Chronic daily headache Headache Tremor Abnormal involuntary movements [facility] Diagnosis Coronary artery disease involving coronary bypass graft of ewiiaapaayp heart without angina pectoris- Primary Paroxysmal atrial fibrillation (CMS-HCC) Atrial fibrillation Primary hypertension Unspecified essential hypertension Mixed hyperlipidemia Left ventricular dysfunction Left heart failure [facility] Diagnosis Coronary artery disease involving coronary bypass graft of ewiiaapaayp heart without angina pectoris Paroxysmal atrial fibrillation (CMS-HCC) Atrial fibrillation Aneurysm of ascending aorta without rupture (CMS-HCC) Hx of CABG 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 [facility] Diagnosis DDD (degenerative disc disease), lumbar Degeneration of lumbar or lumbosacral intervertebral disc Lumbosacral radiculopathy Thoracic or lumbosacral neuritis or radiculitis, unspecified documented in this encounter [facility]* Diagnosis DDD (degenerative disc disease), lumbar Degeneration of lumbar or lumbosacral intervertebral disc Lumbosacral radiculopathy Thoracic or lumbosacral neuritis or radiculitis, unspecified documented in this encounter [facility]* Diagnosis Coronary artery disease involving coronary bypass graft of ewiiaapaayp heart without angina pectoris Hx of CABG Postsurgical aortocoronary bypass status Paroxysmal atrial fibrillation (CMS-HCC) Atrial fibrillation Aneurysm of ascending aorta without rupture (CMS-HCC) History of maze procedure [facility] Diagnosis Coronary artery disease involving coronary bypass graft of ewiiaapaayp heart without angina pectoris Hx of CABG Postsurgical aortocoronary bypass status Paroxysmal atrial fibrillation (CMS-HCC) Atrial fibrillation Aneurysm of ascending aorta without rupture (CMS-HCC) History of maze procedure [facility] NarrativeMrLeyla Tabor is referred for consideration of LVRS. 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 He is on 3 L nasal cannula oxygen chronically. He is set to begin pulmonaryrehabilitation.[facility] Work Phone: History of Present illness NarrativeMrLeyla Tabor is referred for consideration of LVRS. 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 He is on 3 L nasal cannula oxygen chronically. He is set to begin pulmonaryrehabilitation.[facility] Work Phone: History of Present illness NarrativeMr. [facility] is referred for consideration of LVRS. 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 He is on 3 L nasal cannula oxygen chronically. He is set to begin pulmonaryrehabilitation.[facility] Work Phone: InstructionsNot on filedocumented in this encounter [facility] this [facility] filedocument[facility] in this [facility] filedocument[facility] in this [facility] Purpose Family History Unknown Family Member Name Dates Details Family [...] Specialty Diagnoses / Procedures Referred By Tonya dasilva Referred To Contact Diagnoses Carpal tunnel syndrome of left wrist Procedures NVC 7-8 Nerves David Fisher MD [address] [place] [address] Referral ID Status Reason Start Date Expiration Date V isits Requested Visits Authorized [id number] Pending Review 06/08/2024 12/05/2024 1 1 Additional Source Comments (unrecognized sect ion and content) No Status Records FoundNo Status Records FoundNo Status Records FoundNo Status Records FoundNo Status Records FoundNo Status Records FoundNo Status Records Found INFORMATION SOURCE (unrecogn ized section and content) DATE CREATED AUTHOR 07/04/2018 [facility] DATE CREATED AUTHOR AUTHOR'S ORGANIZ ATION 06/09/2022 [facility] DATE CREATED AUTHOR AUTHOR'S ORGANIZ ATION 06/09/2022 [employer] DATE CREATED AUTHOR AUTHOR'S ORGANIZ ATION 02/14/2023 [facility] DATE CREATED AUTHOR AUTHOR'S ORGANIZ ATION 06/09/2024 [facility] EPIC DATE CREATED AUTHOR AUTHOR'S ORGANIZ ATION 07/06/2024 [facility] DATE CREATED AUTHOR AUTHOR'S ORGANIZ ATION 10/09/2024 [facility] Care Teams (unrecognized sec tion and content) Muff Winder Relationship Specialty Start Date End Date Pauly Santacruz NP [address] [place] [address] Referring Physician Family Medicine 03/15/24 Muff Winder Relationship Specialty Start Date End Date Pauly Santacruz NP [address] [place] [address] Referring Physician Family Medicine 03/15/24 Muff Winder Relationship Specialty Start Date End Date Pauly Santacruz NP [address] [place] [address] Referring Physician Family Medicine 03/15/24 Muff Winder Relationship Specialty Start Date End Date Kacie Del Real MD [address] [place] [id number] PCP - General Family Medicine 03/22/22 Muff Winder Relationship Specialty Start Date End Date Pauly Santacruz, PROVIDER NETWORK [employer] SHEET REPAIRER [address] [place] [address] PCP - General Family Medicine 06/24/24 Muff Winder Relationship Specialty Start Date End Date Pauly Santacruz, PROVIDER NETWORK [employer] SHE[employer] REPAIRER [address] [place] [address] PCP - General Family Medicine 06/24/24 Muff Winder Relationship Specialty Start Date End Date Pauly Santacruz, DOPE WORKER [address] [place], [place] [id number] Referring Physician Family Medicine 03/15/24 Muff Winder Relationship Specialty Start Date End Date Pauly Santacruz, DOPE WORKER [address] [place] [address] Referring Physician Family Medicine 03/15/24 Muff Winder Relationship Specialty Start Date End Date Kacie Del Real MD [address] [place] [id number] [id number] PCP - General Family Medicine 03/22/22 Muff Winder Relationship Specialty Start Date End Date Kacie Del Real MD [address] [place] [id number] [id number] PCP - General Family Medicine 03/22/22 Muff Winder Relationship Specialty Start Date End Date Kacie Del Real MD [address] [place] [id number] [id number] PCP - General Family Medicine 03/22/22 Reason for Visit (unrecogniz ed section and content) Specialty Diagnoses / Procedures Referred By Tonya t Referred To Contact Neurology Diagnoses LUE EMG paresthesias of hand, numbness and tingling, ref by Wei Gomez0.2 Procedures NE NERVE CONDUCTION STUDIES 9-10 STUDIES NE NEEDLE EMG EA EXTREMTY W/PARASPINL [place] [address] [place] [address] David Fisher MD [address] [place] [address] Referral ID Status Reason Start Date Expiration Date V isits Requested Visits Authorized [id number] Closed Perform Procedure 06/08/2024 12/05/2024 1 1 Reason Comments Back Pain Neck Pain Tremors Reason Comments Follow-up EST PT FU EM RESULTS Reason Comments Med Refill Reason Onset Date Comments Med Refill 02/18/2024 FOR RECORDS PERTAINING TO PATIENTS WHO ARE [...] BE BASED ON THE PRIMARY CLINICAL RECORDS. [employer] provides no warranty or guarantee of the accuracy or completeness of information in this document.
== END 2024-10-26 11:42 | disposition home or self-care (01) ==
LOC: RAD 11:43
PROVIDERS: PCP Nurse Practitioner; Visit Provider Internal Medicine
DX: R05.1 Acute cough (principal)
CPT/HCPCS: 71046

== ENCOUNTER 2024-10-27 15:14 | Outpatient (OUT) | payer MEDICARE, SELFPAY ==
--- OUTSIDE RECORDS SUMMARY | 2024-10-27 15:20 | XMS_ITS | CCD ---
Author Organization [facility] CliniSymo Care Team Providers Care Supervisor Finish End Name Role Phone ERICK, MELLISA STOHLER Unavailable Unavailab le SYSTEM, PROVIDER [...] Unavailable UNKNOWN, PCP Primary Care Unavailable Dr. NADEEM GRIFFITH Attending Unavail able SAMSA ., DARNELL Admitting Unavailable [facility] Primary Care Unavailable SAMSA ., DARNELL Attending Unavailable SAMSA ., DARNELL Consulting Unavailable SAMSA ., DARNELL Admitting Unavailable [facility] Primary Care Unavailable SAMSA ., DARNELL Attending Unavailable SAMSA ., DARNELL Consulting Unavailable DEL REAL, KACIE Consulting Unavailable [facility] Primary Care Unavailable SAMSA ., DARNELL Attending Unavailable SAMSA ., DARNELL Consulting Unavailable SAMSA ., DARNELL Admitting Unavailable [facility] Primary Care Unavailable DR ALEYDA DYER Consulting Unavailable SAMSA ., DARNELL Attending Unavailable SAMSA ., DARNELL Admitting Unavailable SAMSA ., DARNELL Consulting Unavailable Noam BODY ENGINEER, Jennings Unavailable LINSEY HALL Attending Unavailable LINSEY HALL Attending Unavailable ALEYDA FISHER Attending Unavailable ROLAND BILL Referring Unavailable LINSEY HALL Attending Unavailable EMELY CANTU Referring Unavailable DEL REAL, KACIE L Primary Care Unavailable GILLIAN TAYLOR Attending Unavailable KACIE DEL REAL Referring Unavailable RISA MCNULTY Primary Care Unavailable Noam HO-Risa GUIDRY Primary Care Provider BENNY DIAZ Attending Unavailable Kacie Del Real MD Primary Care Provider Allergies Allergy Classification Reported Allergen(s) Allergy Type Date of Onset Reaction(s) Facility (6 sources) Gluten Propensity to adverse reactions 2 GI intolerance [facility] (6 sources) Isosorbide Dinitrate Drug Allergy 2 Headache [facility] (9 sources) Gluten; Translations: [GLUTEN] Propensity to adverse reactions to food (disorder) 2 [facility] (9 sources) Isosorbide; Translations: [ISOSORBIDE MONONITRATE] Drug Allergy 2 Headache [facility] (1 source) ALLERGIES NOT ON FILE; Translations: [ALLERGIES NOT ON FILE] Propensity to adverse reactions (disorder) [facility] Medications Current Medications Medication Drug Class(es) [...] FOR PAIN for 5 days 06/12/2023 Active [id number] 200 actuat albuterol 0.09 mg/actuat metered dose [...] / ipratropium bromide 0.167 mg/ml inhalation solution (18 sources) Anticholinergic, beta2-Adrenergic Agonist Start: 02-20-2022 ipratropium-albuterol [...] 20-Feb-2022 Active apixaban 5 mg oral tablet (15 sources) Factor Xa Inhibitor Start: 06-04-2023 End: 02-18-2024 take 1 tablet by mouth in the morning, then take 1 tablet by mouth at bedtime apixaban (ELIQUIS) 5 mg tablet Take 1 tablet (5 mg total) by mouth in the morning and 1 tablet (5 mg total) before bedtime. 180 tablet 1 02/19/2024 Active ascorbic acid 1000 mg oral tablet (14 sources) Vitamin C take 1 tablet by mouth in the morning ascorbic acid (Vitamin C) 1000 MG tablet Take 1,000 mg by mouth in the morning. Active aspirin 81 mg delayed release oral tablet (14 sources) Platelet Aggregation Inhibitor, Nonsteroidal Anti-inflammatory Drug Start: 07-25-2022 take 1 tablet by mouth in the morning aspirin 81 MG EC tablet Take 81 mg by mouth in the morning. 07/25/2022 Active atorvastatin 40 mg oral tablet (16 sources) HMG-CoA Reductase Inhibitor Start: 01-20-2023 End: 02-18-2024 take 1 tablet by mouth in the morning atorvastatin (LIPITOR) 40 mg tablet Indications: Coronary artery disease involving coronary bypass graft of chipewwa heart without angina pectoris , Hx of [...] Daily Active cholecalciferol 0.025 mg oral tablet (20 sources) Vitamin D take 1 tablet by [...] sulfate 325 mg delayed release oral tablet (14 sources) take 1 tablet by mouth at [...] Ordered: 15-Mar-2022 DO Start : 15-Mar-2022 Active Hxuambhnmcu-Tpohnrtie-Xwebkx 200-62.5-25 MCG/ACT aerosol powder (6 sources) Start: 11-19-2022 take 1 puff(s) by inhalation once daily Lytowqlvefi-Ujqutblpz-Xwhqbk 200-62.5-25 MCG/ACT aerosol powder Inhale 1 puff 1 (one) time each day. 11/19/2022 Active ytavoebqvdx-mnndcrwau-fnkvdu e r (TRELEGY ELLIPTA) 200-62.5-25 mcg blister with device (8 sources) Start: 03-15-2022 qxpanqvnihj-jncbziclu-vayrhy e r (TRELEGY ELLIPTA) 200-62.5-25 mcg blister with device 1 puff in the morning. 03/15/2022 Active gabapentin 600 mg oral table t (12 sources) Anti- epile ptic Agent Start: 03-30-2022 [...] 06/13/2022 Active lisinopril 5 mg oral tablet (20 sources) Angiotensin Converting Enzyme Inhibitor Start: 01-20-2023 End: 02-18-2024 take 1 tablet by mouth in the morning lisinopriL (PRINIVIL,ZESTRIL) 5 mg tablet Indications: Coronary artery disease involving coronary bypass graft of chipewwa heart without angina pectoris , Hx of [...] succinate 50 mg extended release oral tablet (18 sources) beta-Adrenergic Melonie Start: 06-25-2023 metoprolol succinate XL (TOPROL XL) 50 mg 24 hr tablet Indications: Coronary artery disease involving coronary bypass graft of chipewwa heart without angina pectoris , Hx of [...] hydrochloride 120 mg extended release oral tablet (14 sources) alpha-Adrenergic Agonist, Nonsteroidal Anti-inflammatory Drug take 1 tablet by mouth every twelve hours in the morning pseudoephedrine-Nap roxen Na ER 120-220 MG tablet sustained-release 12 hour Take 1 tablet by mouth in the morning and 1 tablet before bedtime. Active nitroglycerin 0.4 mg sublingual tablet (16 sources) Nitrate Vasodilator Start: nitroglycerin (Nitrostat) 0.[address] 0.4 mg under the tongue every 5 (five) minutes if needed for chest pain. 07/25/2022 Active Start: 07-25-2022 End: 08-03-2024 nitroglycerin (NITROSTAT) 0. 4 MG SL tablet Indications: Coronary artery disease involving coronary bypass graft of chipewwa heart without angina pectoris , Paroxysmal atrial fibrillation (CMS-HCC) , Aneurysm of ascending aorta without rupture (CMS-HCC) , Hx of CABG , History of maze procedure 1 under the tongue as needed for angina, may repeat q5mins for up three doses 25 tablet 1 05/21/2024 Active ofloxacin 3 mg/ml otic solution (6 sources) Quinolone Antimicrobial Start: 02-17-2023 ofloxacin (Floxin) 0.3 % otic solution Indications: Otorrhea of right ear Administer 5 drops into the right ear in the morning and 5 drops before bedtime. 10 mL 02/17/2023 Active omeprazole 40 mg delayed release oral capsule (18 sources) Proton Pump Inhibitor Start: 03-19-2022 take 1 capsule by mouth in the morning omeprazole (PriLOSEC) [address] capsule Take 40 mg by mouth in the morning. 03/19/2022 Active Start: 03-19-2022 Omeprazole 40 MG Oral Capsule Delayed Release Quantity: 90 Refills: 0 Ordered: 19-Mar-2022 DO Start : 19-Mar-2022 Active Oxygen (8 sources) oxygen Inhale continuously. Active predniSONE 20 [...] 09/09/2024 Discontinued roflumilast 0.5 mg oral tablet (18 sources) Phosphodiesterase 4 Inhibitor Start: 03-15-2022 take [...] FOR DETAILED DIRECTIONS Active TESTOSTERONE, BULK, MISC (8 sources) TESTOSTERONE, BULK, MISC by miscellaneous route. 100 mg 1 tablet daily Active theophylline 400 mg extended release oral tablet (14 sources) Methylxanthine Start: 01-16-2023 take 1 tablet by mouth in the morning, then take 1 tablet by mouth every twenty-four hours at bedtime theophylline ER (Uniphyl) 400 MG 24 hr tablet Take 400 mg by mouth in the morning and 400 mg before bedtime. 01/16/2023 Active take 1 capsule by tx ut every twenty-four hours in the morning theophylline (BRYAN-24) 400 MG 24 hr capsule Take 1 capsule (400 mg total) by mouth in the morning. Active vitamin b12 1 mg oral tablet (20 sources) Vitamin B12 take 1 tablet by mouth in the morning cyanocobalamin (Vitamin B-12) 1000 MCG tablet Take 1,000 mcg by mouth in the morning. Active cyanocobalamin ( Vitamin B-12) 500 MCG tablet 1 (one) time each day at the same time. Active zinc gluconate 50 mg oral ta blet (14 sources) zinc gluconate 5 0 MG tablet 1 (one) time each day at the same time. Active Completed/Discontinued Medications Medication Drug Class(es) Dates Sig (Normalized) Sig (Original) lysine 500 mg oral tablet (7 sources) End: 06-24-2024 take 1 tablet by mouth in the morning lysine 500 mg tablet Take 1 tablet (500 mg total) by mouth in the morning. 06/24/2024 Discontinued zonisamide 25 mg oral capsule (7 sources) Anti-epileptic Agent End: 06-24-2024 take 1 [...] Episodic/Chronic Aortic; peripheral; and visceral artery aneurysms (20 sources) Aneurysm of thoracic aorta; Translations: [Thoracic aneurysm without mention of rupture] Onset: 2 02-13-2023 Chronic Cardiac dysrhythmias (20 sources) Atrial fibrillation; Translations: [Atrial fibrillation] Onset: 2 02-13-2023 Chronic Chronic obstructive pulmonary disease and bronchiectasis (18 sources) Chronic obstructive lung disease; Translations: [Chronic airway obstruction, not elsewhere classified] Onset: 8 Resolved: 3 Chronic Complication of device; implant or graft (20 sources) Arteriosclerosis of coronary artery bypass graft; Translations: [Atherosclerosis of coronary artery bypass graft(s) without angina pectoris] Onset: 2 02-13-2023 Chronic Congestive heart failure; nonhypertensive (2 sources) Chronic systolic (congestive) heart failure; Translations: [Chronic systolic (congestive) heart failure] Onset: 4 Chronic Coronary atherosclerosis and other heart disease (8 sources) Coronary arteriosclerosis; Translations: [Coronary atherosclerosis of unspecified type of vessel, chipewwa or graft] Onset: 4 Chronic Disorders of [...] Onset: 3 Episodic Other aftercare (2 sources) 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 agent (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 of 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; Translations: [half-way (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 of 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] Onset: 4 Episodic Other and ill-defined heart disease (1 source) Heart disease, unspecified; Translations: [Heart disease, unspecified] Onset: 4 Chronic Other and ill-defined heart disease (3 sources) Left ventricular cardiac dysfunction; Translations: [Heart disease, unspecified] Onset: 4 06-24-2024 Chronic Other gastrointestinal disorders (4 sources) History [...] Episodic Unclassified (1 source) Neck Pain / [id number]() Onset: 8 Unclassified (1 source) Stiffness / 343() Onset: 8 Unclassified (1 source) Back Pain / 12() Onset: 8 Unclassified (1 source) Upper Extremity Weakness / [id number]() Onset: 8 Unclassified (1 source) Aneurysm of [...] Onset: 01-20-2024 01-20-2024 Episodic Residual codes; unclassified (18 sources) History of maze procedure for atrial [...] atorvastatin per Dr. Diaz. He verbalized understanding. [facility] Office Visiton 08-16-2024 Follow-up visit [id number] Armando Tabor 1960 M Date Provider Department Center 08/16/2024 [id number] DIAZ [facility] Family History Problem Relation Age of Onset Coronary artery disease Mother Coronary artery disease Father Family Status - Relation Status Age at Mother Father Level of Service:30167 OK OFFICE/OUTPATIENT NEW MODERATE MDM 45 MINUTES Reason for Visit and Comments: Atrial Fibrillation [80] - Had EKG at last apt with [facility] in Jun 2024. Denies chest pain and bleeding on Eliquis. Coronary Artery Disease [187] - CABG and MAZE in 2016 Hypertension [641285] Hyperlipidemia [182] COPD [313] - Sees Dr. Bunn [facility] POCT EKGOrdered By: Juana Hercules on 06-24-2024 [facility] EMG 1 Extremeityon 4 [facility] NVC 7-8 Nerveson 06-08-2024 [facility] THEOPHYLLINEon 12-30-2022 THEOPHYLLINE 18.0 ug/mL Normal 10.0-20.0 [facility] Comment on above: Performed By: #### T ADALID #### [facility] [address] [address] [address] Karen Lee THEOPHYLLINEon 12-17-2022 THEOPHYLLINE 8.3 ug/mL Critically low 10.0-20.0 [facility] Comment on above: Performed By: #### T ADALID #### [facility] [address] [address] [address] Karen Lee Blood Pressure Cuff Sizeon 0 05-29-2022 Fall risk assessment a) No falls within the last year [facility] Work Phone: Tobacco use status [facility]PH[facility] b) No [facility] Work Phone: Blood Pressure Cuff Size Large [facility] Work Phone: Office Visit (Thoracic and E [...] Activated Vitals Vital Signs Recorded: 29May2022 02:58PM Ypfqurgvvgl30.2 F Heart Rate91 Liklweqkenu90 Sayrmgez047 Tbwalhest67 Blood Pressure Cuff SizeLarge Height5 ft 7.32 in Huiffx586 lb 7 oz BMI Nypwqssjzh78.15 kg/m2 BSA Calculated2.19 Tobacco Useb) No Falls Screening (Age 18+)a) No falls within the last year O2 Giqaatboqu07, Nasal Cannula Pain Scale7 Physical Exam The [...] homogeneous distribution Signatures Electronically signed by : Nadeem Griffith MD; May 29 2022 3:24PM EST (Author) Normal [facility] Referral Letteron 09-21-2 022 Referral Letter Mr. Tabor is referred [...] neck steps. Signatures Electronically signed by : Nadeem Griffith MD; May 29 2022 3:24PM EST (Author) Normal [facility] LUNG CANCER SCREENINGon 0 04-26-2022 CT [...] Date: 2022-04-26 16:20 Normal [facility] HEMOGLOBINon 04-26-2022 Hemoglobin (Bld) [Mass/Vol] 13.6 g/dL Critically low 14.0-18.0 [facility] Comment on above: Performed By: #### H GB #### [facility] [address] [place] [address] Dr. 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 [facility] Progress Noteson 04-23-2018 Protein mass conc Encounter Department : [facility] REHAB THERAPYProgress Notes by Berlin Valle PTA at 04/23/2018 9:00 AMAuthor: Berlin Valle PTAService: (none)Author Type: Physical Therapy AssistantFiled: 04/23/2018 9:46 AMEncounter Date: 04/23/2018Status: SignedEditor: Berlin Valle PTA (Network Systems Operator)Physical Therapy Treatment NoteVisit Number: 5Encounter diagnosis:ICD-10-CM1.Cervical giaM54.22.Headache in back of [id number] Medical Diagnosis:SUBJECTIVE: Pt requests today being his [...] t-band- Scap retract x15- B UE ext x96Nqxg tucks x15GTB rows 0o26Nmhknd- STM along c-spine paraspinals, UT, and levator [...] in rotation and SB without increase in pain.Half-Way Goals: LTG to be met by 06/08/18 [...] Time: 10Total Treatment Time: 25 PT Treatment [facility] Progress Noteson 04-21-2018 Protein mass conc Encounter Department : [facility] REHAB THERAPYProgress Notes by Berlin Valle PTA at 04/21/2018 9:00 AMAuthor: Berlin Valle PTAService: (none)Author Type: Physical Therapy AssistantFiled: 04/21/2018 9:46 AMEncounter Date: 04/21/2018Status: SignedEditor: Berlin Valle PTA (Network Systems Operator)Physical Therapy Treatment NoteVisit Number: 4Encounter diagnosis:ICD-10-CM1.Cervical giaM54.22.Headache in back of [id number] Medical Diagnosis: CervicalgiaSUBJECTIVE:Complia nce with HEP: Pt [...] t-band- Scap retract x15- B UE ext w75Gypz tucks x15GTB rows 7l66Xzkjld- STM along c-spine paraspinals, UT, and levator [...] in rotation and SB without increase in pain.Linoleum Layer Apprentice Goals: LTG to be met by 06/08/18 [...] Time: 17Total Treatment Time: 32 PT Treatment [facility] Progress Noteson 04-16-2018 Protein mass conc Encounter [facility]YProgress Notes by Collette Villanueva PTA at 04/16/2018 9:00 AMAuthor: Collette Villanueva PTAService: (none)Author Type: Physical Therapy AssistantFiled: 04/16/2018 12:11 PMEncounter Date: 04/16/2018Status: SignedEditor: Collette Villanueva PTA (Network Systems Operator)Physical Therapy Treatment NoteVisit Number: 3Encounter diagnosis:ICD-10-CM1.Cervical giaM54.22.Headache in back of owwyH64Ylqugth Medical Diagnosis: CervicalgiaSUBJECTIVE:Complia nce with HEP: Patient [...] pain/symptomreduction.Tractio n - Cervical traction performed at # for pain/symptom reduction.Onset Date: 2 weeks agoSurgical [...] t-band- Scap retract x15- B UE ext s39Vwkm tucks x15GTB rows 4t98Rhyqin- STM along c-spine paraspinals, UT, and levator scap regions- Suboccipital releaseHEP: chin tuck, UT and LS stretch, scap squeeze.Mechanical traction 18 -10 intermittent 10 minutes. Mechanical traction 25 -18 intermittent 15minutes. Modalities- Traction # x15'Education completed: Education completed with patient Patient [...] in rotation and SB without increase in pain.Half-Way Goals: LTG to be met by 06/08/18 [...] Time: 28Total Treatment Time: 43 PT Treatment [facility] Progress Noteson 04-10-2018 Protein mass conc Encounter [facility] THERAPYProgress Notes by Berlin Valle PTA at 04/10/2018 9:00 AMAuthor: Berlin Valle PTAService: (none)Author Type: Physical Therapy AssistantFiled: 04/10/2018 10:21 AMEncounter Date: 04/10/2018Status: SignedEditor: Berlin Valle PTA (Network Systems Operator)Physical Therapy Treatment NoteVisit Number: 2Encounter diagnosis:ICD-10-CM1.Cervical giaM54.22.Headache in back of aifiW70Lnctzqe Medical Diagnosis: CervicalgiaSUBJECTIVE:Complia nce with HEP: Pt [...] UT stretch 3x 30'Chin tucks x15GTB rows 8s23NTC: chin tuck, UT and LS stretch, scap [...] Pt reports with decreased pain post tx, 01/15.New Category to Report? (if previous visit, category [...] in rotation and SB without increase in pain.Linoleum Layer Apprentice Goals: LTG to be met by 06/08/18 [...] 30Total Treatment Time: 45 PT Treatment Normal [facility] Progress Noteson 04-08-2018 Protein mass conc [facility]counter [facility]YProgress Notes by Jacquelyn Rivera PT at 04/08/2018 1:45 PMAuthor: Jacquelyn Rivera PTService: (none)Author Type: Physical TherapistFiled: 04/08/2018 6:47 PMEncounter Date: 04/08/2018Status: SignedEditor: Jacquelyn Rivera PT (Physical Therapist)Physical Therapy EvaluationEncounter diagnosis:ICD-10-CM1.Cervical giaM54.22.Headache in back of nfhqT05Itfihydst provider: Mellisa Clarke,*Primary Medical Diagnosis: CervicalgiaPlan of [...] Home: 15Prior Level of Functioning: Level of [place]: [facility] Level of Functioning: Outcome Score: NDI (26 raw score NDI, 52% disability) Functional deficits: reports no functional deficits, able to do everything just withincreased pain. Level of [place]: Modified IndependentSleep Status/Sleep Hygiene: Preferred Sleep Position: [...] codes)G8978 Mobility Current Status; Severity: CK 40-59% nzfdqrgsV3764 Mobility Goal Status; Severity: CI 1-19% impairedOutcome measure(s)/Test(s) used/Result(s): 52% disability on NDI.Clinical Judgment: Moderate to severe impairement, decreased neck ROM and strength, tenderness totrigger points moderateNew Category to Jnjfye-Rs-Othw only?:NoEvaluation Breakdown DescriptionPatient HistoryComorbiditiesEnvironme ntal/Personal factorsLearning/CognitionDome stic [...] in rotation and SB without increase in pain.Half-Way Goals: LTG to be met by 06/08/18 [...] Time: 60Time in: 1:44Time Out: 2:45 PT [facility] Vital Signs Date Time Vital Sign Value Performing Clinician Facility 06-24-2024 13:52-0400 Body height 172.7 cm Gillian Taylor MD Work Phone: [facility] 06-24-2024 13:52-0400 Body mass index (BMI) [Ratio] 37.26 kg/m2 Gillian Taylor MD Work Phone: [facility] 06-24-2024 13:52-0400 Body weight 111.13 kg Gillian Taylor MD Work Phone: [facility] 06-24-2024 13:52-0400 Diastolic blood pressure 62 mm[Hg] Gillian Taylor MD Work Phone: [facility] 06-24-2024 13:52-0400 Heart rate 74 /min Gillian Taylor MD Work Phone: [facility] 06-24-2024 13:52-0400 SaO2% (BldA) [Mass fraction] 94 % Gillian Taylor MD Work Phone: [facility] 06-24-2024 13:52-0400 Systolic blood pressure 122 mm[Hg] Gillian Taylor MD Work Phone: [facility] 06-09-2024 11:17-0400 Body height 172.7 cm Linsey Hall PA Work Phone: [facility] 06-09-2024 11:17-0400 Body mass index (BMI) [Ratio] 38.01 kg/m2 Linsey Hall PA Work Phone: [facility] 06-09-2024 11:17-0400 Body weight 113.4 kg Linsey Hall PA Work Phone: [facility] 06-09-2024 11:17-0400 Diastolic blood pressure 84 mm[Hg] Linsey Hall PA Work Phone: [facility] 06-09-2024 11:17-0400 Heart rate 78 /min Linsey Hall PA Work Phone: [facility] 06-09-2024 11:17-0400 Respiratory rate 16 /min Linsey Hall PA Work Phone: [facility] 06-09-2024 11:17-0400 SaO2% (BldA) [Mass fraction] 93 % Linsey Hall PA Work Phone: [facility] 06-09-2024 11:17-0400 Systolic blood pressure 132 mm[Hg] Linsey Hall PA Work Phone: [facility] 05-29-2022 14:58-0400 Body height 170.99 cm [...] Care Provider Facility Start: 09-07-2024 End: 09-09-2024 Refmelisa LI Work Phone: [facility] Comment on above: DDD (degenerative di sc disease), lumbar; Lumbosacral radiculopathy Start: 08-16-2024 End: 08-16-2024 [facility] Start: 07-29-2024 End: 08-03-2024 Refill Pablo Zaragoza ANIMAL RESCUER-FAMILY LIFE EDUCATOR Work Phone: [facility] Comment on above: Med Refill Start: 06-24-2024 End: 06-24-2024 Office outpatient visit 25 minutes Gillian Taylor MD Work Phone: [facility] Comment on above: Coronary artery dise ase involving coronary bypass graft of chipewwa heart without angina pectoris (Primary Dx); Paroxysmal atrial fibrillation (CMS-HCC); Primary hypertension; Mixed hyperlipidemia; Left ventricular dysfunction Start: 06-24-2024 End: 06-24-2024 ambulatory GILLIAN TAYLOR [facility] Start: 06-23-2024 End: 06-23-2024 Telephone encounter [facility] Hercules [facility] Start: 06-09-2024 End: 06-09-2024 Office outpatient visit 15 minutes Linsey LI Work Phone: [facility] Comment on above: 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 with discogenic back pain and lower extremity pain (Primary Dx); Neck pain; Chronic daily headache; Tremor Start: 06-09-2024 End: 06-09-2024 ambulatory LINSEY HALL Not Available Start: 06-08-2024 End: 06-08-2024 Bamairamo flowsheet Aleyda Fisher MD Work Phone: [facility] Start: 06-08-2024 End: 06-08-2024 Bamairamo flowsheet Aleyda Fisher MD Work Phone: [facility] BEDS [facility] Start: 06-08-2024 End: 06-08-2024 Patient encounter procedure Aleyad Fisehr MD Work Phone: [facility] Comment on above: Carpal tunnel syndro me of left wrist (Primary Dx) Start: 06-08-2024 End: 06-08-2024 ambulatory ALEYDA FISHER Not Available Start: 05-21-2024 End: 05-21-2024 Refill [facility] Comment on above: Med Refill Start: 05-17-2024 End: 05-17-2024 ambulatory EMELY CANTU [facility] Comment on above: DDD (degenerative di sc disease), lumbar; Lumbosacral radiculopathy Start: 05-14-2024 End: 05-14-2024 Telephone encounter Juana Hercules CMA [facility] Start: 04-30-2024 End: 04-30-2024 Telephone encounter Ashlee Lim RN [facility] Start: 03-15-2024 End: 03-15-2024 ambulatory LINSEY HALL Not Available Start: 02-18-2024 End: 02-19-2024 [facility]ill [facility] Comment on above: Med Refill Start: 01-24-2024 End: 01-28-2024 Refill Elise Borjas MD Work Phone: [facility] Comment on above: Med Refill Start: 01-21-2024 End: 01-21-2024 ambulatory LINSEY HALL Not Available Start: 12-30-2022 End: 12-31-2022 ambulatory [facility] . Facility:H1 Start: 12-17-2022 End: 12-18-2022 ambulatory [facility] . Facility:H1 Start: 06-17-2022 AUDIT Referring Prov ider Unknown MG-Pulm Sleep-[facility] 1800 Work Phone: Start: 05-29-2022 Office outpatient ne w 45 minutes Referring Provider Unknown MG-CT Surgery-[facility] Work Phone: Start: 05-29-[address] Popeye [facility]ia [facility] Start: 05-21-2022 End: 08-14-2022 ambulatory [facility] Facility:H1 Start: 04-26-2022 End: 04-27-2022 ambulatory [facility] Facility:H1 Start: 04-23-2018 End: 04-23-2018 Patient encounter BERLIN Demarco [facility] Start: 04-21-2018 End: 04-21-2018 Patient encounter BERLIN Demarco [facility] Start: 04-16-2018 End: 04-16-2018 Patient encounter COLLETTE VILLANUEVA [facility] Start: 04-10-2018 End: 04-10-2018 Patient encounter BERLIN VALLE [facility] Start: 04-08-2018 End: 04-08-2018 Patient encounter MELLISA CLARKE [facility] Patient encounter status Referri ng Provider Unknown [facility]ulm Alan[facility] 1800 Work Phone: Procedures Date Procedure Procedure Detail Performing Clinician Start: 06-24-2024 Ecg routine ecg w/le ast 12 lds w/i&r Gillian Taylor MD Work Phone: Start: 06-24-2024 Follow-up visit Follow-up GILLIAN TAYLOR Start: 06-08-2024 End: 06-08-2024 Needle emg ea extremty w/paraspinl area complete Aleyda Fisher MD Work Phone: Start: 05-20-2022 History of coronary artery bypass grafting Hx of CABG Elise Borjas MD Work Phone: Cataract surgery Referring P rozaynabder Unknown Coronary artery bypa ss graft Referring Provider Unknown Hernia repair Referring Prov ider Unknown History of coronary artery bypass grafting Hx of CABG Pablo Zargaoza ANIMAL RESCUER-FAMILY LIFE EDUCATOR Work Phone: History of coronary artery bypass grafting Hx of CABG Neisha Weathers RN History of coronary artery bypass grafting Hx of CABG Elise Borjas MD Work Phone: History of coronary artery bypass grafting Hx of CABG Radha Griffin RN Prosthetic arthropla sty of shoulder Referring Provider Unknown Total replacement of hip Ref erring Provider Unknown Plan of Treatment Date Care Activity Detail Author Start: 08-13-2033 DTaP,Tdap and Td Vaccines (2 - Td or Tdap) DTaP,Tdap and Td Vaccines (2 - Td or Tdap) [facility] Start: 06-24-2025 Adult BMI Screening Adult BMI Screen ing [facility] Start: 06-24-2025 Tobacco Screening Tobacco Screening [facility] Start: 12-21-2024 End: 12-21-2024 Patient encounter procedure 12/21/2024 10:40 AM EDT Office Visit [facility] [address] [place] [address] Linsey Hall PA [address] [place] [address] [facility] COUNTS INCLUDE [address] BEDS AT [facility] Start: 07-29-2024 Adult BMI Screening Adult BMI Screen ing [facility] Start: 07-29-2024 Tobacco Screening Tobacco Screening [facility] Start: 06-24-2024 End: 06-24-2025 CT Chest WO and CT angiogram Coronary arteries W contrast IV CT angiogram chest Imaging Routine Coronary artery disease involving coronary bypass graft of chipewwa heart without angina pectoris Expected: 06/24/2024, Expires: 06/24/2025 [facility] Comment on above: Expected: 06/24/2024 , Expires: 06/24/2025 Start: 06-24-2024 End: 06-24-2025 Echo complete W/O contrast Echo complete W/O contrast Echocardiography Routine Coronary artery disease involving coronary bypass graft of chipewwa heart without angina pectoris Expected: 06/24/2024, Expires: 06/24/2025 [facility] Comment on above: Expected: 06/24/2024 , Expires: 06/24/2025 Start: 06-24-2024 End: 06-24-2024 Patient encounter procedure 06/24/2024 2:00 PM EDT Office Visit [facility] [address] [place] [id number] Gillian Taylor MD [address] [place] [address] [facility] Start: 06-09-2024 End: 06-09-2024 Patient encounter procedure 06/09/2024 11:20 AM EDT Office Visit [facility] INCLUDE [address] [facility] [facility] [address] [place] [id number] Linsey Hall PA [address] [place] [address] [facility] [place] COUNTS INCLUDE 234 BEDS AT [facility] Start: 06-08-2024 End: 06-08-2024 Patient encounter procedure [facility] [address] Comment on above: Arrived Start: 05-17-2024 End: 05-17-2024 Professional / ancillary services management 05/17/2024 8:30 AM EDT Ancillary Procedure [facility] [address] [place] [address] Emely Cantu MD [address] [place] [address] [facility] Start: 05-09-2024 Influenza vaccination N [facility] Start: 2010 Administration of varicella zoster vaccine Zoster (Shingles) Vaccine (1 of 2) [facility] Start: 1979 DTaP,Tdap and Td Vaccines (1 - Tdap) DTaP,Tdap and Td Vaccines (1 - Tdap) [facility] Start: 1978 Adult BMI Follow Up Plan Adult BMI F ollow Up Plan [facility] Start: 1972 [facility]: 1960 Screening for malign ant neoplasm of colon [facility] End: 06-24-2025 CBC panel - Blood by Automated count CBC Lab Routine Paroxysmal atrial fibrillation ([facility]) 1 Occurrences starting 06/24/2024 until 06/24/2025 [facility] Comment on above: 1 Occurrences starti ng 06/24/2024 until 06/24/2025 End: 06-24-2025 Comprehensive metabolic 2000 panel - Serum or Plasma CMP Lab Routine Primary hypertension 1 Occurrences starting 06/24/2024 until 06/24/2025 [facility] Comment on above: 1 Occurrences starti ng 06/24/2024 until 06/24/2025 End: 06-24-2025 Lipid panel Lipid panel Lab Routine Mixed hyperlipidemia 1 Occurrences starting 06/24/2024 until 06/24/2025 [facility] Work Phone: Comment on above: 1 Occurrences starti ng 06/24/2024 until 06/24/2025 Immunizations Immunization Date Immunization Notes Care Provider Fa cility 08-13-2023 influenza virus vaccine, unspecified formulation Yuri Chapa MA [facility] 05-23-2021 influenza, high dose seasonal, preservative-free Yuri Chapa MA [facility] 05-23-2021 influenza virus vaccine, unspecified formulation Elise Borjas MD Work Phone: [employer] [facility] 10-25-2020 Pfizer Purple Cap SARS-CoV-2 Vaccination Yuri Chapa YOLANDA [facility] 09-20-2020 Pfizer Purple Cap SARS-CoV-2 Vaccination Yuri Jacquesclement GUERRERO [facility] Healthcare Payers Date Payer Category Payer Medicare (Managed Care) [facility] [employer] [id number] 2019 Medicare [id number] 2019 Medicare HMO [employer] MEDICARE [id number] 1960 Unknown [id number]. [id number] 1960 Unknown [id number] [id number]. 2.593 1960 Unknown [id number] [id number]. 2.593 1960 Unknown [id number] [id number]. 2.593 1960 Unknown [id number] [id number]. 2.593 1960 Unknown [id number] [id number]. 2.1259 1960 Unknown [id number] [id number]. 2.1259 1960 Unknown [id number] [id number]. 2.1259 1960 Unknown [id number] [id number]. 2.1259 1960 Unknown [id number] [id number]. 2.1286 1960 Unknown [id number]. 2.1286 1959 Medicare [id number] Unknown Social History Date Type Detail Facility Start: 03-15-2024 End: 06-24-2024 Social alcohol use Social alcohol use MG[facility] Work Phone: Start: 05-20-2022 End: 03-15-2024 Tobacco smoking status NHIS Ex-smoker [facility] Start: 09-08-1974 End: 09-08-2009 History of tobacco use Current smoker [facility] Start: 09-08-1974 End: 09-08-2009 History of tobacco use Cigarette Smoker [facility] Start: 05-20-2022 End: 03-15-2024 Tobacco use and exposure Smokeless tobacco non-user [facility] Start: 03-15-2024 End: 06-09-2024 Alcoholic beverage intake Lifetime non-drinker (finding) [facility] Start: 03-15-2024 End: 06-24-2024 Tobacco use panel [facility] Start: 02-13-2023 Alcohol Comment ocassionally [facility] Start: 1960 Sex assigned at Male [facility] Start: 02-21-2023 Gender identity Identifies as male gender (finding) [facility] Start: 07-29-2023 End: 06-24-2024 Alcoholic beverage intake Ex-drinker (finding) [facility] Within the past 12 months we worried whether our food would run out before we got money to buy more. Never True [facility] Start: 05-20-2022 Alcohol Comment [facility] Start: 1960 Sex assigned at Not on file P [facility] Start: 03-22-2022 Sex Male (finding) [facility] Clinical Notes 04-30-2024 to 09-09-2024 Telephone Encounter [...] 05/17/2024 for 90 day supply. Due 08/15/2024 [facility] 09-09-2024 Miscellaneous Notes 06/09/2024 Continue Lyrica 150mg PO TID for neuropathic pain Oarrs reviewed. Last filled 05/17/2024 for 90 day supply. 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 male with history of coronary artery disease and coronary artery bypass surgery and maze procedure, paroxysmal atrial fibrillation, s/p ablation in [place], thoracic aortic aneurysm, left ventricle dysfunction, hypertension, hyperlipidemia COPD, prior tobacco and alcohol abuse He used to follow with [facility]. He states that overall he has [...] or gallops. RESPIR (more content not included)... [facility] 07-29-2024 Miscellaneous Notes [facility] 06/24/24 [facility] 07-29-2024 Telephone encounter Note [facility]24[facility] 06-24-2024 History of Present illness Narrative Elise Tabor Date of visit: 06/24/2024 Date of : 1960 Age: 64 y.o. Patient Active Problem List Diagnosis Coronary artery disease involving coronary bypass graft of chipewwa heart without angina pectoris Paroxysmal atrial fibrillation [...] 65 mg by mouth daily with breakfast. mhkzbzqgoky-hssrffkad-ndnjwoaa (TRELEGY ELLIPTA) 200-62.5-25 mcg blister with device [...] atrial fibrillation despite the reported ablation in [place], continue on anticoagulation. We discussed this again [...] History: Diagnosis Date Arthritis Ascending aortic aneurysm ([facility]) Atrial fibrillation ([facility]) Celiac disease COPD (chronic obstructive pulmonary disease) ([facility]) Coronary artery disease with history of coronary [...] artery disease involving coronary bypass graft of chipewwa heart without angina pectoris - POCT EKG - CT angiogram chest; Future - Echo complete W/O contrast; Future 2. Paroxysmal atrial fibrillation (CMS-HCC) - CBC; Future 3. Primary hypertension - CMP; Future 4. Mixed hyperlipidemia - Lipid panel; Future 5. Left ventricular dysfunction 1. ASCVD without angina --history of CABG with Maze --[facility] to the [facility] 2015 in [place] 2. Cardiomyopathy -ischemic versus related to alcohol [...] LORENZO Referring Physician: Kacie Del Real MD [address] [place] [address] documented in this encounter [facility] 06-24-2024 Instructions Gillian Taylor MD - 06/24/2024 2:00 PM EDT Laboratory studies CTA of the aorta Echocardiogram documented in this encounter [facility] 06-23-2024 Miscellaneous Notes Called patient to remind them to bring their most current copy of their medication list with them to their appt. Patient verbalizes understanding. documented in this encounter [facility] 06-23-2024 Telephone encounter Note Called patient to remind them to bring their most current copy of their medication list with them to their appt. Patient verbalizes understanding. [facility] 06-09-2024 History of Present illness Narrative Subjective [...] handles -admits hand weakness -some trouble with director style ROS Review of Systems Constitutional: Negative for [...] triceps, wrist extensors, wrist extensors, wrist flexor, director style strength 5/5. LUE Strength deltoid, biceps, triceps, wrist extensors, wrist extensors, wrist flexor, director style strength 5/5. RLE Strength illopsoas, quadriceps, tibialis [...] or worsening symptoms documented in this encounter [facility] 06-08-2024 History of Present illness Narrative Images from the original note were not included. Reason for Appointment: EMG Patient: Elise Tabor : 1960 EMG Computer: [employer] Referring Physician: Roland Bill PA-C EMG: [facility] administrator: Vera Zuñiga CMA Office Location: [facility] Reason for EMG: c/o pain and paresthesia in the arm from the shoulder down. No Hx of DM, takes Eliquis and ASA Comments: Procedure explained to the patient who expressed understanding. documented in this encounter [facility] 05-14-2024 Miscellaneous Notes Phoned pt to advise that appt scheduled for 05/17/2024 is the date that his EM will be sent out and is NOT an actual appt. Verbalized understanding. documented in this encounter [facility] 05-14-2024 Telephone encounter Note Phoned pt to advise that appt scheduled for 05/17/2024 is the date that his EM will be sent out and is NOT an actual appt. Verbalized understanding. [facility] 04-30-2024 Miscellaneous Notes VIOLIN MAKER HAND, Patient called and said that he has not been in a-fib since 2018 HX Coronary artery disease s/p CABG x 1 ([facility]) 2015 in [place] Paroxysmal atrial fibrillation (diagnosed in 1998); Maze at time of open heart surgery Thoracic aortic aneurysm, 47 mm 05/2022 Hypertension Frequent PVCs, 6% burden on most recent monitoring 06/2023 History of NSVT Chronic hypoxic respiratory failure COPD Patient said that Eliquis is not affordable for him and would like to know if since he has not been in a-fib [facility], is there a chance he would be able to dc Eliquis at some point. Please advise. Thank you! 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 This is something we would need to [...] patient to call us back to review VIOLIN MAKER HAND's response. documented in this encounter [facility] 04-30-2024 Telephone encounter Note VIOLIN MAKER HAND, Patient called and said that he has not been in a-[facility] since 2018 HX Coronary artery disease s/p CABG x 1 ([facility]) 2016 in [place] Paroxysmal atrial fibrillation (diagnosed in 1998); Maze at time of open heart surgery Thoracic aortic aneurysm, 47 mm 05/2022 Hypertension Frequent PVCs, 6% burden on most recent monitoring 06/2023 History of NSVT Chronic hypoxic respiratory failure COPD Patient said that Eliquis is not affordable for him and would like to know if since he has not been in a-fib [facility] 2018, is there a chance he would be able to dc Eliquis at some point. Please advise. Thank you! 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 [facility] 04-30-2024 Telephone encounter Note This is something [...] further. Would continue Eliquis in the meantime. [facility] 04-30-2024 Telephone encounter Note Amml asking patient to call us back to review VIOLIN MAKER HAND's response. [facility] Evaluation note Diagnosis Carpal tunnel syndrome of left wrist- Primary documented in this encounter [facility]* Diagnosis Degeneration of intervertebral disc of lumbar region with discogenic back pain and lower extremity pain- Primary Neck pain Cervicalgia Chronic daily headache Headache Tremor Abnormal involuntary movements documented in this encounter [facility]* Diagnosis Coronary artery disease involving coronary bypass graft of chipewwa heart without angina pectoris Paroxysmal atrial fibrillation (CMS-HCC) Atrial fibrillation Aneurysm of ascending aorta without rupture (CMS-HCC) Hx of CABG 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 [facility] Diagnosis DDD (degenerative disc disease), lumbar Degeneration of lumbar or lumbosacral intervertebral disc Lumbosacral radiculopathy Thoracic or lumbosacral neuritis or radiculitis, unspecified documented in this encounter [facility] HealthcareEvaluation note* Diagnosis DDD (degenerative disc disease), lumbar Degeneration of lumbar or lumbosacral intervertebral disc Lumbosacral radiculopathy Thoracic or lumbosacral neuritis or radiculitis, unspecified documented in this encounter [facility] HealthcareEvaluation note* Diagnosis Coronary artery disease involving coronary bypass graft of chipewwa heart without angina pectoris Hx of CABG Postsurgical aortocoronary bypass status Paroxysmal atrial fibrillation (CMS-HCC) Atrial fibrillation Aneurysm of ascending aorta without rupture (CMS-HCC) History of maze procedure [facility] Diagnosis Coronary artery disease involving coronary bypass graft of chipewwa heart without angina pectoris Hx of CABG Postsurgical aortocoronary bypass status Paroxysmal atrial fibrillation (CMS-HCC) Atrial fibrillation Aneurysm of ascending aorta without rupture (CMS-HCC) History of maze procedure [facility] Diagnosis Coronary artery disease involving coronary bypass graft of chipewwa heart without angina pectoris Paroxysmal atrial fibrillation ([facility]) Atrial fibrillation Aneurysm of ascending aorta without rupture ([facility]) Hx of CABG 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 [facility] Diagnosis Coronary artery disease involving coronary bypass graft of chipewwa heart without angina pectoris- Primary Paroxysmal atrial fibrillation ([facility]) Atrial fibrillation Primary hypertension Unspecified essential hypertension Mixed hyperlipidemia Left ventricular dysfunction Left heart failure [facility] NarrativeMrLeyla Tabor is referred for consideration of LVRS. 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 He is on 3 L nasal cannula oxygen chronically. He is set to begin pulmonaryrehabilitation.[facility] Work Phone: History of Present illness NarrativeMrLeyla Tabor is referred for consideration of LVRS. 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 He is on 3 L nasal cannula oxygen chronically. He is set to begin pulmonaryrehabilitation.[facility] Work Phone: History of Present illness NarrativeMrLeyla Tabor is referred for consideration of LVRS. 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 He is on 3 L nasal cannula oxygen chronically. He is set to begin pulmonaryrehabilitation.[facility] Work Phone: InstructionsNot on filedocumented in this encounter [facility] on filedocumented in this encounter [facility]ructions[facility] on filedocumented in this encounter [facility]ructionsNot on filedocumented in this encounter [facility]ructionsNot on filedocumented in this encounter [facility]ructionsNot on filedocumented in this encounter [facility] Summary Purpose Family History Unknown [...] Referral Specialty Diagnoses / Procedures Referred By Contac t Referred To Contact Diagnoses Carpal tunnel syndrome of left wrist Procedures NVC 7-8 Nerves Aleyda Fisher MD [address] [place] [address] Referral ID Status Reason Start Date Expiration Date V isits Requested Visits Authorized [id number] Pending Review 06/08/2024 12/05/2024 1 1 Additional Source Comments (unrecognized sect ion and content) No Status Records FoundNo Status Records FoundNo Status Records FoundNo Status Records FoundNo Status Records FoundNo Status Records FoundNo Status Records Found INFORMATION SOURCE (unrecogn ized section and content) DATE CREATED AUTHOR 07/04/2018 [facility] DATE CREATED AUTHOR AUTHOR'S ORGANIZ ATION 06/09/2022 [facility] DATE CREATED AUTHOR AUTHOR'S ORGANIZ ATION 06/09/2022 [facility] DATE CREATED AUTHOR AUTHOR'S ORGANIZ ATION 02/14/2023 [facility] DATE CREATED AUTHOR AUTHOR'S ORGANIZ ATION 06/09/2024 [facility] DATE CREATED AUTHOR AUTHOR'S ORGANIZ ATION 07/06/2024 [facility] DATE CREATED AUTHOR AUTHOR'S ORGANIZ ATION 10/09/2024 [facility] Care Teams (unrecognized sec tion and content) Supervisor Finish End Relationship Specialty Start Date End Date Risa Mcnulty NP [address] [place] [address] Referring Physician Family Medicine 03/15/24 Supervisor Finish End Relationship Specialty Start Date End Date Risa Mcnulty NP [address] [place] [address] Referring Physician Family Medicine 03/15/24 Supervisor Finish End Relationship Specialty Start Date End Date Risa Mcnulty NP [address] [place] [address] Referring Physician Family Medicine 03/15/24 Supervisor Finish End Relationship Specialty Start Date End Date Risa Mcnulty ANIMAL RESCUER-MARINE GEOLOGIST [address] [place] [address] [phone] PCP - General Family Medicine 06/24/24 Supervisor Finish End Relationship Specialty Start Date End Date Risa Mcnulty NP [address] [place] [address] Referring Physician Family Medicine 03/15/24 Supervisor Finish End Relationship Specialty Start Date End Date Risa Mcnulty NP [address] [place] [address] Referring Physician Family Medicine 03/15/24 Supervisor Finish End Relationship Specialty Start Date End Date Kacie Del Real MD [address] [place] [address] PCP - General Family Medicine 03/22/22 Supervisor Finish End Relationship Specialty Start Date End Date Kacie Del Real MD [address] [place] [id number] PCP - [facility] 03/22/22 Supervisor Finish End Relationship Specialty Start Date End Date Kacie Del Real MD [address] [place] [address] [phone] PCP - [facility] 03/22/22 Supervisor Finish End Relationship Specialty Start Date End Date Kacie Del Real MD [address] [place] [address] [phone] PCP - [facility] 03/22/22 Supervisor Finish End Relationship Specialty Start Date End Date Kacie Del Real MD [address] [place] [address] [phone] PCP - [facility] 03/22/22 Supervisor Finish End Relationship Specialty Start Date End Date Risa Mcnulty APRN-MARINE GEOLOGIST [address] [place] [address] [phone] PCP - General Family Medicine 06/24/24 Reason for Visit (unrecogniz ed section and content) Specialty Diagnoses / Procedures Referred By Tonya t Referred To Contact Neurology Diagnoses LUE EMG paresthesias of hand, numbness and tingling, ref by Wei Bill [id number] Procedures OK NERVE CONDUCTION STUDIES 9-10 STUDIES [place] NEEDLE EMG EA EXTREMTY W/PARASPINL [place] [id number] [place] [address] Aleyda Fisher MD [address] [place] [address] Referral ID Status Reason Start Date Expiration Date V isits Requested Visits Authorized [id number] Closed Perform Procedure 06/08/2024 12/05/2024 1 1 Reason Comments Back Pain Neck Pain Tremors Reason Comments Med Refill Reason Onset Date Comments Med Refill 02/18/2024 Reason Onset Date Comments Med Refill 05/21/2024 Reason Comments Follow-up EST PT FU EM RESULTS FOR RECORDS PERTAINING TO PATIENTS WHO ARE [...] BE BASED ON THE PRIMARY CLINICAL RECORDS. [employer] [facility]. provides no warranty or guarantee of the accuracy or completeness of information in this document.
[2024-10-27 15:30] LABS: pH ABG 7.341 (7.350-7.450)
[2024-10-27 15:31] LABS: Allen Test POSITIVE (POSITIVE); Base Excess ABG 6.3 mmol/L (-2.0-2.0); Liters per Minute 3; PO2 ABG 72.9 mmHg (80.0-100.0); Puncture Site RB
[2024-10-27 15:33] LABS: ABG PCO2 59.3 mmHg (35.0-45.0)
== END 2024-10-27 15:15 | disposition home or self-care (01) ==
LOC: CARD 15:14
PROVIDERS: PCP Nurse Practitioner; Visit Provider Internal Medicine
DX: J43.2 Centrilobular emphysema (principal); J96.11 Chronic respiratory failure with hypoxia
CPT/HCPCS: 36600; 82805

== ENCOUNTER 2024-11-10 19:51 | Outpatient (OUT) | payer MEDICARE, SELFPAY ==
--- OUTSIDE RECORDS SUMMARY | 2024-11-10 19:53 | XMS_ITS | CCD ---
Author Organization [facility] CliniSyak Care Team Providers Care School Bus Operator Name Role Phone ERICK, MELLISA STOHLER Unavailable [...] ., DARNELL Admitting Unavailable [facility] Primary Care Unavailable SAMSA ., DARNELL Attending Unavailable SAMSA ., DARNELL Consulting Unavailable SAMSA ., DARNELL Admitting Unavailable [facility] Primary Care Unavailable SAMSA ., DARNELL Attending Unavailable SAMSA ., DARNELL Consulting Unavailable DEL REAL, KACIE Consulting Unavailable [facility] Primary Care Unavailable SAMSA ., DARNELL Attending Unavailable SAMSA ., DARNELL Consulting Unavailable SAMSA ., DARNELL Admitting Unavailable [facility] Primary Care Unavailable DR ALEYDA DYER Consulting Unavailable SAMSA ., DARNELL Attending Unavailable SAMSA ., DARNELL Admitting Unavailable SAMSA ., DARNELL Consulting Unavailable Noam SHEET ROCKER, [place] Unavailable LINSEY HALL Attending Unavailable LINSEY HALL Attending Unavailable ALEYDA FISHER Attending Unavailable ROLAND BILL Referring Unavailable LINSEY HALL Attending Unavailable EMELY CANTU Referring Unavailable DEL REAL, KACIE L Primary Care Unavailable GILLIAN TAYLOR Attending Unavailable KACIE DEL REAL Referring Unavailable RISA MCNULTY Primary Care Unavailable BENNY DIAZ Attending Unavailable Kacie Del Real MD Primary Care Provider Noam COMMERCIAL LOAN ASSISTANT-Risa GUIDRY Primary Care Provider Allergies Allergy Classification Reported Allergen(s) Allergy Type Date of Onset Reaction(s) Facility (6 sources) Gluten Propensity to adverse reactions 2 GI intolerance [facility] (6 sources) Isosorbide Dinitrate Drug Allergy 2 Headache [facility] (9 sources) Gluten; Translations: [GLUTEN] Propensity to adverse reactions to food (disorder) 2 [facility] (9 sources) Isosorbide; Translations: [ISOSORBIDE MONONITRATE] Drug Allergy 2 Headache [facility] (1 source) ALLERGIES NOT ON FILE; Translations: [ALLERGIES NOT ON FILE] Propensity to adverse reactions (disorder) [facility] Repository Medications Current Medications Medication Drug Class(es) [...] FOR PAIN for 5 days 06/12/2023 Active [id number] 200 actuat albuterol 0.09 mg/actuat metered dose [...] artery disease involving coronary bypass graft of rosebud heart without angina pectoris , Hx of [...] Ordered: 15-Mar-2022 DO Start : 15-Mar-2022 Active Qycrmcnflie-Mgecdqfzf-Czwbuc 200-62.5-25 MCG/ACT aerosol powder (6 sources) Start: 11-19-2022 take 1 puff(s) by inhalation once daily Wjytxufyryb-Xlgkjtujn-Qjbgdo 200-62.5-25 MCG/ACT aerosol powder Inhale 1 puff 1 (one) time each day. 11/19/2022 Active fbzrayscswf-lhlywqvcp-idjlow e r (TRELEGY ELLIPTA) 200-62.5-25 mcg blister with device (8 sources) Start: 03-15-2022 kdubmsukuwo-qfeqtiong-wqfehn e r (TRELEGY ELLIPTA) 200-62.5-25 mcg blister [...] artery disease involving coronary bypass graft of rosebud heart without angina pectoris , Hx of [...] artery disease involving coronary bypass graft of rosebud heart without angina pectoris , Hx of [...] artery disease involving coronary bypass graft of rosebud heart without angina pectoris , Paroxysmal atrial fibrillation (CMS-HCC) , Aneurysm of ascending aorta without rupture (CMS-HCC) , Hx of CABG , History of maze procedure DISSOLVE 1 TABLET UNDER THE TONGUE NEEDED FOR CHEST PAIN- MAY REPEAT EVERY 5 MINUTES IF NEEDED ( MAX 3 DOSES.- IF NO RELIEF CALL 911) 25 tablet 11 08/03/2024 Active ofloxacin 3 mg/ml otic solution (6 [...] 01/16/2023 Active take 1 capsule by mo ut every twenty-four hours in the morning [...] [Coronary atherosclerosis of unspecified type of vessel, rosebud or graft] Onset: 4 Chronic Disorders of lipid metabolism (6 sources) Mixed hyperlipidemia; Translations: [Pure hypercholesterolemia, unspecified] Onset: 4 Chronic Essential hypertension (10 sources) Hypertensive disorder; Translations: [Unspecified essential hypertension] Onset: 4 Chronic Melanomas of skin (4 sources) H/O Malignant melanoma; Translations: [Personal history of malignant melanoma of skin] Episodic Other aftercare (4 sources) Encounter for therapeutic drug level monitoring; Translations: [ENC THERAPEUTC DRUG LEVL MONITORING] Onset: 3 Episodic Other aftercare (2 sources) 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 Free 30 day voucher also provided for patient. BMP order given to be done in 1 week. LIPID,AST,ALT orders given to him to be completed in 2 months after increasing atorvastatin per Dr. Diaz. He verbalized understanding. Normal [facility] Office Visiton 08-16-2024 Follow-up visit [id number] Armando Tabor 1960 M Date Provider Department Center 08/16/2024 [id number] DIAZ [facility] Family History Problem Relation Age of Onset Coronary artery disease Mother Coronary artery disease Father Family Status - Relation Status Age at Mother Father Level of Service:88224 [place] OFFICE/OUTPATIENT NEW MODERATE MDM 45 MINUTES Reason for Visit and Comments: Atrial Fibrillation [80] - Had EKG at last apt with [facility] in Jun 2024. Denies chest pain and bleeding on Eliquis. Coronary Artery Disease [187] - CABG and MAZE in 2016 Hypertension [809749] Hyperlipidemia [182] COPD [313] - Sees Dr. Bunn [facility] POCT EKGOrdered By: Juana Hercules on 06-24-2024 [employer] [facility] EMG 1 Extremeityon 4 [facility] NVC 7-8 Nerveson 06-08-2024 [facility] THEOPHYLLINEon 12-30-2022 THEOPHYLLINE 18.0 ug/mL Normal 10.0-20.0 [facility] Comment on above: Performed By: #### T ADALID #### [facility] [address] [address] [address] Karen Lee THEOPHYLLINEon 12-17-2022 THEOPHYLLINE 8.3 ug/mL Critically low 10.0-20.0 [facility] Comment on above: Performed By: #### T ADALID #### [facility] [address] [address] [address] Karen Lee Blood Pressure Cuff Sizeon [...] Activated Vitals Vital Signs Recorded: 29May2022 02:58PM Yjypngdxthi12.2 F Heart Rate91 Ywnbelqfupc56 Fsaxgjnz876 Uxnwxpnao40 Blood Pressure Cuff SizeLarge Height5 ft 7.32 in Iisica095 lb 7 oz BMI Bhtjhvgtjr76.15 kg/m2 BSA Calculated2.19 Tobacco Useb) No Falls Screening (Age 18+)a) No falls within the last year O2 Vxlynlbrbo17, Nasal Cannula Pain Scale7 Physical Exam The [...] 3:24PM EST (Author) Normal [employer] Referral Letteron -[id number] 022 Referral Letter Mr. Tabor is referred [...] May 29 2022 3:24PM EST (Author) Normal [facility] LUNG CANCER SCREENINGon 0 04-26-2022 CT [...] ALEYDA DYER Date: 2022-04-26 16:20 Normal [facility] HEMOGLOBINon 04-26-2022 Hemoglobin (Bld) [Mass/Vol] 13.6 g/dL Critically low 14.0-18.0 [facility] Comment on above: Performed By: #### H GB #### [facility] [address] [address] [address] Karen Lee Progress Noteson 09-27-2018 Protein mass conc [facility]Progress Notes by Jacquelyn [...] Pt self discharged with last txsession with COAT CHECKER.Patient is being discharged due to not returning to therapy and/or Plan of Care being .Recommend patient continue with HEP previously instructed on during therapy as appropriate.Patient may be reinstated in therapy upon new evaluation and orders from the physician.Thank You. [facility] Progress Noteson 04-23-2018 Protein mass conc Encounter Department : [facility] THERAPYProgress Notes by Berlin Valle PTA at 04/23/2018 9:00 AMAuthor: Berlin Valle PTAService: (none)Author Type: Physical Therapy AssistantFiled: 04/23/2018 9:46 AMEncounter Date: 04/23/2018Status: SignedEditor: Berlin Valle PTA (Color Separation Photographer)Physical Therapy Treatment NoteVisit Number: 5Encounter diagnosis:ICD-10-CM1.Cervical giaM54.22.Headache in back of [id number] Medical Diagnosis:SUBJECTIVE: Pt requests today being his [...] t-band- Scap retract x15- B UE ext w22Hhxc tucks x15GTB rows 5y17Zfhfms- STM along c-spine paraspinals, UT, and levator [...] in rotation and SB without increase in pain.Coding Specialist Goals: LTG to be met by 06/08/18 [...] Time: 10Total Treatment Time: 25 PT Treatment [facility] Progress Noteson 04-21-2018 Protein mass conc Encounter Department : [facility]AB THERAPYProgress Notes by Berlin Valle PTA at 04/21/2018 9:00 AMAuthor: Berlin Valle PTAService: (none)Author Type: Physical Therapy AssistantFiled: 04/21/2018 9:46 AMEncounter Date: 04/21/2018Status: SignedEditor: Berlin Valle PTA (Color Separation Photographer)Physical Therapy Treatment NoteVisit Number: 4Encounter diagnosis:ICD-10-CM1.Cervical giaM54.22.Headache in back of [id number] Medical Diagnosis: CervicalgiaSUBJECTIVE:Complia nce with HEP: Pt [...] t-band- Scap retract x15- B UE ext u50Sszd tucks x15GTB rows 0y58Gqyeju- STM along c-spine paraspinals, UT, and levator [...] in rotation and SB without increase in pain.Mcfp Goals: LTG to be met by 06/08/18 [...] Time: 17Total Treatment Time: 32 PT Treatment [facility] Progress Noteson 04-16-2018 Protein mass conc Encounter Department [facility] THERAPYProgress Notes by Collette Villanueva PTA at 04/16/2018 9:00 AMAuthor: Collette Villanueva PTAService: (none)Author Type: Physical Therapy AssistantFiled: 04/16/2018 12:11 PMEncounter Date: 04/16/2018Status: SignedEditor: Collette Villanueva PTA (Color Separation Photographer)Physical Therapy Treatment NoteVisit Number: 3Encounter diagnosis:ICD-10-CM1.Cervical giaM54.22.Headache in back of pujuW24Xrdboet Medical Diagnosis: CervicalgiaSUBJECTIVE:Complia nce with HEP: Patient [...] t-band- Scap retract x15- B UE ext a18Lnty tucks x15GTB rows 0h43Igaaro- STM along c-spine paraspinals, UT, and levator [...] in rotation and SB without increase in pain.Mcfp Goals: LTG to be met by 06/08/18 [...] Time: 28Total Treatment Time: 43 PT Treatment [facility] Progress Noteson 04-10-2018 Protein mass conc Encounter Department : [facility] THERAPYProgress Notes by Berlin Valle PTA at 04/10/2018 9:00 AMAuthor: Berlni Valle PTAService: (none)Author Type: Physical Therapy AssistantFiled: 04/10/2018 10:21 AMEncounter Date: 04/10/2018Status: SignedEditor: Berlin Valle PTA (Color Separation Photographer)Physical Therapy Treatment NoteVisit Number: 2Encounter diagnosis:ICD-10-CM1.Cervical giaM54.22.Headache in back of xnydQ83Amscejy Medical Diagnosis: CervicalgiaSUBJECTIVE:Complia nce with HEP: Pt [...] UT stretch 3x 30'Chin tucks x15GTB rows 3o60BDY: chin tuck, UT and LS stretch, scap [...] in rotation and SB without increase in pain.Mcfp Goals: LTG to be met by 06/08/18 [...] Time: 30Total Treatment Time: 45 PT Treatment [facility] Progress Noteson 04-08-2018 Protein mass conc Encounter Department : [facility] THERAPYProgress Notes by Jacquelyn Rivera PT at 04/08/2018 1:45 PMAuthor: Jacquelyn Rivera PTService: (none)Author Type: Physical TherapistFiled: 04/08/2018 6:47 PMEncounter Date: 04/08/2018Status: SignedEditor: Jacquelyn Rivera PT (Physical Therapist)Physical Therapy EvaluationEncounter diagnosis:ICD-10-CM1.Cervical giaM54.22.Headache in back of sujyU49Hzutajifu provider: Mellisa Clarke,*Primary Medical Diagnosis: CervicalgiaPlan of [...] Home: 15Prior Level of Functioning: Level of Ceiba: [facility] Level of Functioning: Outcome Score: NDI (26 raw score NDI, 52% disability) Functional deficits: reports no functional deficits, able to do everything just withincreased pain. Level of Ceiba: Modified IndependentSleep Status/Sleep Hygiene: Preferred Sleep Position: [...] codes)G8978 Mobility Current Status; Severity: CK 40-59% ljjeqmrrF6463 Mobility Goal Status; Severity: CI 1-19% impairedOutcome measure(s)/Test(s) used/Result(s): 52% disability on NDI.Clinical Judgment: Moderate to severe impairement, decreased neck ROM and strength, tenderness totrigger points moderateNew Category to Xycued-Dl-Cdji only?:NoEvaluation Breakdown DescriptionPatient HistoryComorbiditiesEnvironme ntal/Personal factorsLearning/CognitionDome stic [...] in rotation and SB without increase in pain.Mcfp Goals: LTG to be met by 06/08/18 [...] Time: 60Time in: 1:44Time Out: 2:45 PT [facility] Vital Signs Date Time Vital Sign Value Performing Clinician Facility 06-24-2024 13:52-0400 Body height 172.7 cm Gillian Taylor MD Work Phone: [facility] 06-24-2024 13:52-0400 Body mass index (BMI) [Ratio] 37.26 kg/m2 Gillian Taylor MD Work Phone: [facility] [facility] 06-24-2024 13:52-0400 Body weight 111.13 kg Gillian Taylor MD Work Phone: [facility] 06-24-2024 13:52-0400 Diastolic blood pressure 62 mm[Hg] Gillian Taylor MD Work Phone: [facility] [facility] 06-24-2024 13:52-0400 Heart rate 74 /min Gillian Taylor MD Work Phone: [facility] 06-24-2024 13:52-0400 SaO2% (BldA) [Mass fraction] 94 % Gillian Taylor MD Work Phone: [facility] 06-24-2024 13:52-0400 Systolic blood pressure 122 mm[Hg] Gillian Taylor MD Work Phone: [facility] 06-09-2024 11:17-0400 Body height 172.7 cm Linsey Hall PA Work Phone: [facility] 06-09-2024 11:17-0400 Body mass index (BMI) [Ratio] 38.01 kg/m2 Linsey Hall PA Work Phone: [facility] 06-09-2024 11:17-0400 Body weight 113.4 kg Linsey Hall PA Work Phone: [facility] 06-09-2024 11:17-0400 Diastolic blood pressure 84 mm[Hg] Linsey Hall PA Work Phone: [facility] 06-09-2024 11:17-0400 Heart rate 78 /min Linsey Hall PA Work Phone: [facility] 06-09-2024 11:17-0400 Respiratory rate 16 /min Linsey Hall PA Work Phone: [facility] 06-09-2024 11:17-0400 SaO2% (BldA) [Mass fraction] 93 % Linsey Hall PA Work Phone: [facility] 06-09-2024 11:17-0400 Systolic blood pressure 132 mm[Hg] Linsey Hall PA Work Phone: [facility] 05-29-2022 14:58-0400 Body height [...] Care Provider Facility Start: 09-07-2024 End: 09-09-2024 Hever LI Work Phone: [facility] Comment on above: DDD (degenerative di sc disease), lumbar; Lumbosacral radiculopathy Start: 08-16-2024 End: 08-16-2024 [facility] Start: 07-29-2024 End: 08-03-2024 Refill Pablo Zaragoza COMMERCIAL LOAN ASSISTANT-TREE TRIMMING LINE TECHNICIAN Work Phone: [facility] Comment on above: Med Refill Start: 06-24-2024 End: 06-24-2024 Office outpatient visit 25 minutes Gillian Taylor MD Work Phone: [facility] Comment on above: Coronary artery dise ase involving coronary bypass graft of rosebud heart without angina pectoris (Primary Dx); Paroxysmal atrial fibrillation (CMS-HCC); Primary hypertension; Mixed hyperlipidemia; Left ventricular dysfunction Start: 06-24-2024 End: 06-24-2024 ambulatory GILLIAN TAYLOR [facility] Start: 06-23-2024 End: 06-23-2024 Telephone encounter Juana Hercules CMA [facility] Start: 06-09-2024 End: 06-09-2024 Office outpatient visit 15 minutes Linsey LI Work Phone: [facility] Comment on above: 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 with discogenic back pain and lower extremity pain (Primary Dx); Neck pain; Chronic daily headache; Tremor Start: 06-09-2024 End: 06-09-2024 ambulatory LINSEY HALL Not Available Start: 06-08-2024 End: 06-08-2024 Bamboo flowsheet Aleyda Fisher MD Work Phone: [facility] Start: 06-08-2024 End: 06-08-2024 Bamairamo flowsheet Aleyda Fisher MD Work Phone: [facility] Start: 06-08-2024 End: 06-08-2024 Patient encounter procedure Aleyda Fisher MD Work Phone: [facility] Comment on above: Carpal tunnel syndro me of left wrist (Primary Dx) Start: 06-08-2024 End: 06-08-2024 ambulatory ALEYDA FISHER Not Available Start: 05-21-2024 End: 05-21-2024 Refill Radha Griffin RN [facility] Comment on above: Med Refill Start: 05-17-2024 End: 05-17-2024 ambulatory EMELY CANTU [facility] Comment on above: DDD (degenerative di sc disease), lumbar; Lumbosacral radiculopathy Start: 05-14-2024 End: 05-14-2024 Telephone encounter Juana Hercules CMA [facility] Start: 04-30-2024 End: 04-30-2024 Telephone encounter Ashlee Lim RN [facility] Start: 03-15-2024 End: 03-15-2024 ambulatory LINSEY HALL Not Available Start: 02-18-2024 End: 02-19-2024 Refill Neisha Weathers RN [facility] Comment on above: Med Refill Start: 01-24-2024 End: 01-28-2024 Refill Elise Borjas MD Work Phone: [facility] Comment on above: Med Refill Start: 01-21-2024 End: 01-21-2024 ambulatory LINSEY HALL Not Available Start: 12-30-2022 End: 12-31-2022 ambulatory [facility] . Facility:H1 Start: 12-17-2022 End: 12-18-2022 ambulatory [facility] . Facility: Start: 06-17-2022 AUDIT Referring Prov ider Unknown [facility]-Pul[facility] Work Phone: Start: 05-29-2022 Office outpatient ne w 45 minutes Referring Provider Unknown MG-CT Surgery-[place] Work Phone: Start: 05-29-[address] Popeye Heredia lity:[facility] Start: 05-21-2022 End: 08-14-2022 ambulatory [facility] Facility:H1 Start: 04-26-2022 End: 04-27-2022 ambulatory [facility] Facility:H1 Start: 04-23-2018 End: 04-23-2018 Patient encounter BERLIN Demarco [facility] Start: 04-21-2018 End: 04-21-2018 Patient encounter BERLIN Demarco [facility] Start: 04-16-2018 End: 04-16-2018 Patient encounter COLLTETE VILLANUEVA [facility] Start: 04-10-2018 End: 04-10-2018 Patient encounter EBRLIN VALLE [facility] Start: 04-08-2018 End: 04-08-2018 Patient encounter MELLISA CLARKE [facility] Patient encounter status Referri joy Provider Unknown [facility]-Pulm Alan[facility] [address] Work Phone: [...] grafting Hx of CABG Radha Griffin RN History of coronary artery bypass grafting Hx of CABG Pablo Zaragoza COMMERCIAL LOAN ASSISTANT-TREE TRIMMING LINE TECHNICIAN Work Phone: Prosthetic arthropla sty of shoulder Referring Provider Unknown Total replacement of hip Ref erring Provider Unknown Plan of Treatment Date Care Activity Detail Author Start: 08-13-2033 DTaP,Tdap and Td Vaccines (2 - Td or Tdap) DTaP,Tdap and Td Vaccines (2 - Td or Tdap) [facility] Start: 06-24-2025 Adult BMI Screening [facility] Screen [facility] Start: 06-24-2025 Tobacco Screening Tobacco Screening [facility] Start: 12-21-2024 End: 12-21-2024 Patient encounter procedure 12/21/2024 10:40 AM EDT Office Visit [facility] [address] [place] [phone] Linsey Hall PA [address] [place] [address] [facility] Start: 07-29-2024 Adult BMI Screening Adult BMI Screen ing [facility] Start: 07-29-2024 Tobacco Screening Tobacco Screening [facility] Start: 06-24-2024 End: 06-24-2025 CT Chest WO and CT angiogram Coronary arteries W contrast IV CT angiogram chest Imaging Routine Coronary artery disease involving coronary bypass graft of rosebud heart without angina pectoris Expected: 06/24/2024, Expires: 06/24/2025 [facility] Comment on above: Expected: 06/24/2024 , Expires: 06/24/2025 Start: 06-24-2024 End: 06-24-2025 Echo complete W/O contrast Echo complete W/O contrast Echocardiography Routine Coronary artery disease involving coronary bypass graft of rosebud heart without angina pectoris Expected: 06/24/2024, Expires: 06/24/2025 [facility] Comment on above: Expected: 06/24/2024 , Expires: 06/24/2025 Start: 06-24-2024 End: 06-24-2024 Patient encounter procedure 06/24/2024 2:00 PM EDT Office Visit [facility] [address] [place] [address] Gillian Taylor MD [address] [place] [address] [facility] Start: 06-09-2024 End: 06-09-2024 Patient encounter procedure 06/09/2024 11:20 AM EDT Office Visit [facility] [address] [place] [id number] Linsey Hall PA [address] [place] [address] [facility] [address] [facility] Start: 06-08-2024 End: 06-08-2024 Patient encounter procedure [facility] Comment on above: Arrived Start: 05-17-2024 End: 05-17-2024 Professional / ancillary services management 05/17/2024 8:30 AM EDT Ancillary Procedure [facility] [address] [place] [address] Emely Cantu MD [address] [place] [address] [facility] Start: 05-09-2024 Influenza vaccination N [facility] Start: 2010 Administration of varicella zoster vaccine Zoster (Shingles) Vaccine (1 of 2) [facility] Start: 1979 DTaP,Tdap and Td Vaccines (1 - Tdap) DTaP,Tdap and Td Vaccines (1 - Tdap) [facility] Start: 1978 Adult BMI Follow Up Plan Adult BMI F ollow Up Plan [facility] Start: 1972 Depression Screening Depression Scre ening [facility] Start: 1960 Screening for malign ant neoplasm of colon [facility] End: 06-24-2025 CBC panel - Blood by Automated count CBC Lab Routine Paroxysmal atrial fibrillation ([facility]) 1 Occurrences starting 06/24/2024 until 06/24/2025 [facility] Comment on above: 1 Occurrences starti ng 06/24/2024 until 06/24/2025 End: 06-24-2025 Comprehensive metabolic 2000 panel - Serum or Plasma CMP Lab Routine Primary hypertension 1 Occurrences starting 06/24/2024 until 06/24/2025 [facility] Comment on above: 1 Occurrences starti ng 06/24/2024 until 06/24/2025 End: 06-24-2025 Lipid panel Lipid panel Lab Routine Mixed hyperlipidemia 1 Occurrences starting 06/24/2024 until 06/24/2025 [facility] Work Phone: Comment on above: 1 Occurrences starti ng 06/24/2024 until 06/24/2025 Immunizations Immunization Date Immunization Notes Care Provider Fa cility 08-13-2023 influenza virus vaccine, unspecified formulation Yuri Chapa MA [facility] 05-23-2021 influenza, high dose seasonal, preservative-free Yuri Chapa YOLANDA [facility] 05-23-2021 influenza virus vaccine, unspecified formulation Elise Borjas MD Work Phone: [facility] [employer] 10-25-2020 Pfizer Purple Cap SARS-CoV-2 Vaccination Yuri Chapa YOLANDA [facility] 09-20-2020 Pfizer Purple Cap SARS-CoV-2 Vaccination Yuri Jacquesclement GUERRERO [facility] Payers Date Payer Category Payer Medicare (Managed Care) [employer] [facility] [employer] [id number] 2019 Medicare [id number] 2019 Medicare HMO [employer] [id number] 1960 Unknown [id number] 2.16.840.1.621819.3.579. 2.356 1960 Unknown [id number] 2.16.840.1.410947.3.579. 2.593 1960 Unknown [id number] 2.16.840.1.032277.3.579. 2.593 1960 Unknown [id number] 2.16.840.1.899714.3.579. 2.593 1960 Unknown [id number] 2.16.840.1.256961.3.579. 2.593 1960 Unknown [id number] 2.16.840.1.815316.3.579. 2.1259 1960 Unknown [id number] 2.16.840.1.656056.3.579. 2.1259 1960 Unknown [id number] 2.16.840.1.271346.3.579. 2.1259 1960 Unknown [id number] 2.16.840.1.033824.3.579. 2.1259 1960 Unknown [id number] 2.16.840.1.563617.3.579. 2.1286 1960 Unknown [id number] 2.16.840.1.277419.3.579. 2.1286 1959 Medicare [id number] Unknown Social History Date Type Detail Facility Start: 03-15-2024 End: 06-24-2024 Social alcohol use Social alcohol use [facility] Start: 05-20-2022 End: 03-15-2024 Tobacco smoking status NHIS Ex-smoker [facility] Start: 09-08-1974 End: 09-08-2009 History of tobacco use Current smoker [facility] Start: 09-08-1974 End: 09-08-2009 History of tobacco use Cigarette Smoker [facility] Start: 05-20-2022 End: 03-15-2024 Tobacco use and exposure Smokeless tobacco non-user [facility] Start: 03-15-2024 End: 06-09-2024 Alcoholic beverage intake Lifetime non-drinker (finding) [facility] Start: 03-15-2024 End: 06-24-2024 Tobacco use panel [facility] Start: 02-13-2023 Alcohol Comment ocassionally [facility] Start: 1960 Sex assigned at Male [facility] Start: 02-21-2023 Gender identity Identifies as male gender (finding) [facility] Start: 07-29-2023 End: 06-24-2024 Alcoholic beverage intake Ex-drinker (finding) [facility] Within the past 12 months we worried whether our food would run out before we got money to buy more. Never True [facility] Start: 05-20-2022 Alcohol Comment [facility] Start: 1960 Sex assigned at Not on file [facility] Start: 03-22-2022 Sex Male (finding) [facility] Clinical Notes 04-30-2024 to 09-09-2024 Telephone Encounter [...] 05/17/2024 for 90 day supply. Due 08/15/2024 [facility] 09-09-2024 Miscellaneous Notes 06/09/2024 Continue Lyrica 150mg PO TID for neuropathic pain [facility] reviewed. Last filled 05/17/2024 for 90 day supply. 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 male with history of coronary artery disease and coronary artery bypass surgery and maze procedure, paroxysmal atrial fibrillation, s/p ablation in [place], thoracic aortic aneurysm, left ventricle dysfunction, hypertension, hyperlipidemia COPD, prior tobacco and alcohol abuse He used to follow with [facility] cardiology. He states that overall he has [...] past medical history of Abnormal ECG, Aneurysm ([facility]/HCC), Arrhythmia, Atrial fibrillation (CMS/HCC), Cardiomyopathy (CMS/HCC), COPD (chronic obstructive pulmonary disease) (CMS/[facility]), Coronary artery disease, Hyperlipidemia, and Hypertension. Surgical [...] or gallops. RESPIR (more content not included)... [facility] 07-29-2024 Miscellaneous Notes [place] 06/24/24 documented in this encounter [facility] 07-29-2024 Telephone encounter Note [place] [facility] 06-24-2024 History of Present illness Narrative Elise Schneider Padilla Date of visit: 06/24/2024 Date of : 1960 Age: 64 y.o. Patient Active Problem List Diagnosis Coronary artery disease involving coronary bypass graft of rosebud heart without angina pectoris Paroxysmal atrial fibrillation [...] 65 mg by mouth daily with breakfast. zmfmrsyrzya-eurgbxfaq-dvqvzuwu (TRELEGY ELLIPTA) 200-62.5-25 mcg blister with device [...] atrial fibrillation despite the reported ablation in [place], continue on anticoagulation. We discussed this again [...] History: Diagnosis Date Arthritis Ascending aortic aneurysm ([facility]-HCC) Atrial fibrillation ([facility]) Celiac disease COPD (chronic obstructive pulmonary disease) ([facility]) Coronary artery disease with history of coronary [...] artery disease involving coronary bypass graft of rosebud heart without angina pectoris - POCT EKG - CT angiogram chest; Future - Echo complete W/O contrast; Future 2. Paroxysmal atrial fibrillation (CMS-HCC) - CBC; Future 3. Primary hypertension - CMP; Future 4. Mixed hyperlipidemia - Lipid panel; Future 5. Left ventricular dysfunction 1. ASCVD without angina --history of CABG with Maze --WALTERS to the LAD 2015 in [place] 2. Cardiomyopathy -ischemic versus related to alcohol [...] LORENZO Referring Physician: Kacie Del Real MD [facility] [place] [address] documented in this encounter [facility] 06-24-2024 Instructions Gillian Taylor MD - 06/24/2024 2:00 PM EDT Laboratory studies CTA of the aorta Echocardiogram documented in this encounter [facility] 06-23-2024 Miscellaneous Notes Called patient to remind them to bring their most current copy of their medication list with them to their appt. Patient verbalizes understanding. documented in this encounter [facility] 06-23-2024 Telephone encounter Note Called patient to remind them to bring their most current copy of their medication list with them to their appt. Patient verbalizes understanding. [facility] 06-09-2024 History of Present illness Narrative Subjective [...] handles -admits hand weakness -some trouble with repairer handtools ROS Review of Systems Constitutional: Negative for [...] triceps, wrist extensors, wrist extensors, wrist flexor, repairer handtools strength 5/5. LUE Strength deltoid, biceps, triceps, wrist extensors, wrist extensors, wrist flexor, repairer handtools strength 5/5. RLE Strength illopsoas, quadriceps, tibialis [...] or worsening symptoms documented in this encounter [facility] 06-08-2024 History of Present illness Narrative Images from the original note were not included. Reason for Appointment: EMG Patient: Elise Tabor : 1960 EMG Computer: [employer] Referring Physician: Roland Bill PA-C EMG: WALTER sponsorship coordinator: Vera Zuñiga CMA Office Location: [place] Reason for EMG: c/o pain and paresthesia in the arm from the shoulder down. No Hx of DM, takes Eliquis and ASA Comments: Procedure explained to the patient who expressed understanding. documented in this encounter [facility] 05-14-2024 Miscellaneous Notes Phoned pt to advise that appt scheduled for 05/17/2024 is the date that his EM will be sent out and is NOT an actual appt. Verbalized understanding. documented in this encounter [facility] 05-14-2024 Telephone encounter Note Phoned pt to advise that appt scheduled for 05/17/2024 is the date that his EM will be sent out and is NOT an actual appt. Verbalized understanding. 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, Patient called and said that he has not been in a-fib since 2018 HX Coronary artery disease s/p CABG x 1 (W[facility]TERS-LAD) 2016 in [place] Paroxysmal atrial fibrillation (diagnosed in 1998); Maze at time of open heart surgery Thoracic aortic aneurysm, 47 mm 05/2022 Hypertension Frequent PVCs, 6% burden on most recent monitoring 06/2023 History of NSVT Chronic hypoxic respiratory failure COPD Patient said that Eliquis is not affordable for him and would like to know if since he has not been in a-fib [facility] 2017, is there a chance he would be able to dc Eliquis at some point. Please advise. Thank you! 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 This is something we would need to [...] patient to call us back to review HOME ENERGY INSPECTOR's response. 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, Patient called and said that he has not been in a-fib since 2018 HX Coronary artery disease s/p CABG x 1 ([facility]S-LAD) 2016 in [place] Paroxysmal atrial fibrillation (diagnosed in 1998); Maze at time of open heart surgery Thoracic aortic aneurysm, 47 mm 05/2022 Hypertension Frequent PVCs, 6% burden on most recent monitoring 06/2023 History of NSVT Chronic hypoxic respiratory failure COPD Patient said that Eliquis is not affordable for him and would like to know if since he has not been in a-fib [facility] 2018, is there a chance he would be able to dc Eliquis at some point. Please advise. Thank you! 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 [facility] Tele[facility] encounter Note This is something [...] further. Would continue Eliquis in the meantime. [facility] 04-30-2024 Telephone encounter Note Amml asking patient to call us back to review HOME ENERGY INSPECTOR's response. [facility] Evaluation note Diagnosis Carpal tunnel syndrome of left wrist- Primary documented in this encounter [facility]* Diagnosis Degeneration of intervertebral disc of lumbar region with discogenic back pain and lower extremity pain- Primary Neck pain Cervicalgia Chronic daily headache Headache Tremor Abnormal involuntary movements documented in this encounter [facility]* Diagnosis DDD (degenerative disc disease), lumbar Degeneration of lumbar or lumbosacral intervertebral disc Lumbosacral radiculopathy Thoracic or lumbosacral neuritis or radiculitis, unspecified documented in this encounter [facility]* Diagnosis DDD (degenerative disc disease), lumbar Degeneration of lumbar or lumbosacral intervertebral disc Lumbosacral radiculopathy Thoracic or lumbosacral neuritis or radiculitis, unspecified documented in this encounter [facility]* Diagnosis Coronary artery disease involving coronary bypass graft of rosebud heart without angina pectoris Hx of CABG Postsurgical aortocoronary bypass status Paroxysmal atrial fibrillation (CMS-HCC) Atrial fibrillation Aneurysm of ascending aorta without rupture (CMS-HCC) History of maze procedure [facility] Diagnosis Coronary artery disease involving coronary bypass graft of rosebud heart without angina pectoris Hx of CABG Postsurgical aortocoronary bypass status Paroxysmal atrial fibrillation (CMS-HCC) Atrial fibrillation Aneurysm of ascending aorta without rupture (CMS-HCC) History of maze procedure documented [facility] Diagnosis Coronary artery disease involving coronary bypass graft of rosebud heart without angina pectoris Paroxysmal atrial fibrillation (CMS-HCC) Atrial fibrillation Aneurysm of ascending aorta without rupture (CMS-HCC) Hx of CABG 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 [facility] Diagnosis Coronary artery disease involving coronary bypass graft of rosebud heart without angina pectoris- Primary Paroxysmal atrial fibrillation (CMS-HCC) Atrial fibrillation Primary hypertension Unspecified essential hypertension Mixed hyperlipidemia Left ventricular dysfunction Left heart failure [facility] Diagnosis Coronary artery disease involving coronary bypass graft of rosebud heart without angina pectoris Paroxysmal atrial fibrillation (CMS-HCC) Atrial fibrillation Aneurysm of ascending aorta without rupture (CMS-HCC) Hx of CABG 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 documented [facility] NarrativeMrLeyla Tabor is referred for consideration of LVRS. 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 He is on 3 L nasal cannula oxygen chronically. He is set to begin pulmonaryrehabilitation.[facility] Work Phone: History of Present illness NarrativeMrLeyla Tabor is referred for consideration of LVRS. 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 He is on 3 L nasal cannula oxygen chronically. He is set to begin pulmonaryrehabilitation.[facility] Work Phone: History of Present illness NarrativeMrLeyla Tabor is referred for consideration of LVRS. 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 He is on 3 L nasal cannula oxygen chronically. He is set to begin pulmonaryrehabilitation.[facility] Work Phone: InstructionsNot on filedocumented in this encounter [facility] filedocumented in this encounter [facility] on filedocumented in this encounter [facility] on filedocumented in this encounter [facility] on filedocumented in this encounter [facility]ructionsNot on filedocumented in this encounter [facility] Summary Purpose Family History Unknown [...] Aleyda Fisher MD [address] [place] [address] Referral ID Status Reason Start Date Expiration Date V isits Requested Visits Authorized [id number] Pending Review 06/08/2024 12/05/2024 1 1 Additional Source Comments (unrecognized sect ion and content) No Status Records FoundNo Status Records FoundNo Status Records FoundNo Status Records FoundNo Status Records FoundNo Status Records FoundNo Status Records Found INFORMATION SOURCE (unrecogn ized section and content) DATE CREATED AUTHOR 07/04/2018 [facility] DATE CREATED AUTHOR AUTHOR'S ORGANIZ ATION 06/09/2022 [facility] DATE CREATED AUTHOR AUTHOR'S ORGANIZ ATION 06/09/2022 [facility] DATE CREATED AUTHOR AUTHOR'S ORGANIZ ATION 02/14/2023 [facility] DATE CREATED AUTHOR AUTHOR'S ORGANIZ ATION 06/09/2024 [facility] dical [facility] DATE CREATED AUTHOR AUTHOR'S ORGANIZ ATION 07/06/2024 [facility] DATE CREATED AUTHOR AUTHOR'S ORGANIZ ATION 10/09/2024 [facility] Care Teams (unrecognized sec tion and content) School Bus Operator Relationship Specialty Start Date End Date Risa Mcnulty NP [address] [facility] [place] [address] Referring Physician Family Medicine 03/15/24 School Bus Operator Relationship Specialty Start Date End Date Risa Mcnulty NP [address] [facility] [place] [address] Referring Physician Family Medicine 03/15/24 School Bus Operator Relationship Specialty Start Date End Date Risa Mcnulty NP [address] [place] [address] Referring Physician Family Medicine 03/15/24 School Bus Operator Relationship Specialty Start Date End Date Risa Mcnulty NP [address] [place] [address] Referring Physician Family Medicine 03/15/24 School Bus Operator Relationship Specialty Start Date End Date Risa Mcnulty NP [address] [place] [address] Referring Physician Family Medicine 03/15/24 School Bus Operator Relationship Specialty Start Date End Date Kacie Del Real MD [address] [place] [id number] PCP - General Family Medicine 03/22/22 School Bus Operator Relationship Specialty Start Date End Date Kacie Del Real MD [address] [place] [id number] PCP - General Family Medicine 03/22/22 School Bus Operator Relationship Specialty Start Date End Date Kacie Del Real MD [address] [place], [place] [phone] PCP - [facility] 03/22/22 School Bus Operator Relationship Specialty Start Date End Date Kacie Del Real MD [address] [place] [address] [phone] PCP - [facility] 03/22/22 School Bus Operator Relationship Specialty Start Date End Date Kacie Del Real MD [address] [place] [address] [phone] PCP - [facility] 03/22/22 School Bus Operator Relationship Specialty Start Date End Date Risa Mcnulty COMMERCIAL LOAN ASSISTANT-DUMPER BAILER OPERATOR [address] [place] [address] [phone] PCP - [facility] Medicine 06/24/24 School Bus Operator Relationship Specialty Start Date End Date Risa Mcnulty COMMERCIAL LOAN ASSISTANT-DUMPER BAILER OPERATOR [address] [place] [address] [phone] PCP - General [facility] Medicine 06/24/24 Reason for Visit (unrecogniz ed section and content) Specialty Diagnoses / Procedures Referred By Tonya t Referred To Contact Neurology Diagnoses LUE EMG paresthesias of hand, numbness and tingling, ref by Wei Bill PACr20.2 Procedures NV NERVE CONDUCTION STUDIES 9-10 STUDIES NV NEEDLE EMG EA EXTREMTY W/PARASPINL [place] [address] [place] [address] Aleyda Fisher MD [address] [place] [address] Referral ID Status Reason Start Date Expiration Date V isits Requested Visits Authorized [id number] Closed Perform Procedure 06/08/2024 12/05/2024 1 1 [...] BE BASED ON THE PRIMARY CLINICAL RECORDS. [facility] [facility]. provides no warranty or guarantee of the accuracy or completeness of information in this document.
== END 2024-11-10 19:52 | disposition home or self-care (01) ==
LOC: SLEEP 19:51
PROVIDERS: PCP Internal Medicine; Visit Provider Internal Medicine
DX: G47.11 Idiopathic hypersomnia with long sleep time (principal); R53.83 Other fatigue; E66.9 Obesity, unspecified; I10 Essential (primary) hypertension; Z68.35 Body mass index [BMI] 35.0-35.9, adult; R06.83 Snoring; G47.30 Sleep apnea, unspecified
CPT/HCPCS: 95811

== ENCOUNTER 2025-01-07 11:32 | Outpatient (OUT) | payer MEDICARE, SELFPAY ==
[2025-01-07 11:57] LABS: Estimated Average Glucose 111 mg/dL; Glycohemoglobin A1C 5.5 % (4.5-6.2)
[2025-01-07 12:11] LABS: Basophils Percent Auto 0.3 % (0.2-2.0); Eosinophils Percent Auto 0.2 % (0.9-7.0); Hematocrit 51.2 % (42.0-54.0); Immature Granulocytes Pct Auto 0.8 % (0.0-0.5); Lymphocytes Absolute Auto 0.8 10^3/uL (1.2-3.8); Lymphocytes Percent Auto 6.2 % (20.5-60.0); Mean Corpuscular HGB Conc 33.2 g/dL (29.9-35.2); Mean Corpuscular Hemoglobin 31.1 pg (25.9-34.0); Mean Corpuscular Volume 93.8 fL (80.0-94.0); Mean Platelet Volume 9.4 fL (9.5-13.5); Monocytes Absolute Auto 0.7 10^3/uL (0.3-0.8); Monocytes Percent Auto 5.8 % (1.7-12.0); Neutrophils Percent Auto 86.7 % (43.0-75.0); Platelet Count 194 10^3/uL (150-450); Red Blood Count 5.46 10^6/uL (4.70-6.10); Red Cell Distribution Width 12.8 % (11.0-15.0); White Blood Count 12.7 10^3/uL (4.0-11.0)
[2025-01-07 12:34] LABS: Alanine Aminotransferase 30 U/L (16-63); Albumin Globulin Ratio 1.2; Alkaline Phosphatase 68 U/L (46-116); Anion Gap 11.5; Aspartate Amino Transferase 20 U/L (15-37); BUN Creatinine Ratio 27.9; Bilirubin Total 0.5 mg/dL (0.2-1.0); Calcium 11.4 mg/dL (8.5-10.1); Carbon Dioxide 30.3 mmol/L (21.0-32.0); Chloride 102 mmol/L (98-107); Chol HDL Ratio 3.1; Cholesterol 182 mg/dL (<=200); Estimated GFR (African America >60 (>=60 mL/min/1.73m^2); Estimated GFR (Non-African Ame >60 (>=60 mL/min/1.73m^2); Free T3 2.75 pg/mL (2.18-3.98); Globulin 3.4 g/dL; Glucose 126 mg/dL (74-106); HDL Cholesterol 58 mg/dL (40-60); LDL Cholesterol Calculated 101.8 mg/dL; Potassium 4.8 mmol/L (3.5-5.1); Sodium 139 mmol/L (136-145); Total Protein 7.4 g/dL (6.4-8.2); Triglycerides 111 mg/dL (<=150); Troponin I High Sensitivity 14.6 pg/mL (4.0-76.1); Uric Acid 3.4 mg/dL (3.5-7.2); VLDL CHOLESTEROL 22.2 mg/dL
== END 2025-01-07 11:33 | disposition home or self-care (01) ==
LOC: LAB 11:33
PROVIDERS: PCP Family Medicine; Visit Provider Family Medicine
DX: I25.10 Atherosclerotic heart disease of native coronary artery without angina pectoris (principal); I48.91 Unspecified atrial fibrillation; Z86.79 Personal history of other diseases of the circulatory system; J84.10 Pulmonary fibrosis, unspecified; D64.9 Anemia, unspecified; G47.10 Hypersomnia, unspecified; K21.9 Gastro-esophageal reflux disease without esophagitis; E78.5 Hyperlipidemia, unspecified; R73.09 Other abnormal glucose; Z12.5 Encounter for screening for malignant neoplasm of prostate; I50.30 Unspecified diastolic (congestive) heart failure; I11.0 Hypertensive heart disease with heart failure
CPT/HCPCS: 36415; 80053; 80061; 83036; 83525; 83880; 84436; 84443; 84481; 84484; 84550; 85025; G0103

== ENCOUNTER 2025-01-19 14:24 | Outpatient (OUT) | payer MEDICARE, SELFPAY ==
[2025-01-19 16:33] LABS: Alanine Aminotransferase 39 U/L (16-63); Albumin Globulin Ratio 1.2; Albumin Level 3.7 g/dL (3.4-5.0); Alkaline Phosphatase 61 U/L (46-116); Anion Gap 13.3; Aspartate Amino Transferase 19 U/L (15-37); BUN Creatinine Ratio 22.4; Bilirubin Total 0.7 mg/dL (0.2-1.0); Calcium 9.9 mg/dL (8.5-10.1); Carbon Dioxide 28.7 mmol/L (21.0-32.0); Chloride 102 mmol/L (98-107); Estimated GFR (African America >60 (>=60 mL/min/1.73m^2); Estimated GFR (Non-African Ame >60 (>=60 mL/min/1.73m^2); Globulin 3.2 g/dL; Glucose 106 mg/dL (74-106); Sodium 139 mmol/L (136-145); Total Protein 6.9 g/dL (6.4-8.2)
== END 2025-01-19 14:25 | disposition home or self-care (01) ==
LOC: LAB 14:25
PROVIDERS: PCP Family Medicine; Visit Provider Family Medicine
DX: R79.9 Abnormal finding of blood chemistry, unspecified (principal)
CPT/HCPCS: 36415; 80053; 82330

== ENCOUNTER 2025-01-19 14:27 | Outpatient (OUT) | payer MEDICARE, SELFPAY ==
[2025-01-19 16:45] LABS: Chol HDL Ratio 2.6; Cholesterol 162 mg/dL (<=200); HDL Cholesterol 62 mg/dL (40-60); Triglycerides 86 mg/dL (<=150); VLDL CHOLESTEROL 17.2 mg/dL
== END 2025-01-19 14:28 | disposition home or self-care (01) ==
LOC: LAB 14:28
PROVIDERS: PCP Family Medicine; Visit Provider Internal Medicine Cardiovascular Disease
DX: R79.9 Abnormal finding of blood chemistry, unspecified (principal); E78.5 Hyperlipidemia, unspecified
CPT/HCPCS: 36415; 80053; 80061; 82330

== ENCOUNTER 2025-02-03 08:53 | Outpatient (OUT) | payer MEDICARE, SELFPAY ==
--- NOTE | 2025-02-03 09:00 | CA_ITS ---
Patient Name: ELISE TABOR MR#: [id number] : 1960 Exam Date: 02/03/2025 Ordering Doctor: DR. BENNY FUENTES M.D. CORRE[place] Corrected on: 02/03/2025; ECHOCARDIOGRAM REPORT PROCEDURE: CA ECHO DOPPLER COMPLETE INDICATIONS: Acute combined systolic and diastolic heart failure, CABGx5, COPD, emphysema COMPARISON: None. DESCRIPTION: COMPLETE ECHOCARDIOGRAM Real-time transthoracic echocardiography with 2D, M-mode, spectral and color flow Doppler performed. QUALITY: Technical quality was fair. LEFT VENTRICLE: Normal chamber size. Mild concentric left ventricular hypertrophy. Systolic function is moderately reduced. LV EF: Moderately reduced left ventricular ejection fraction, (35-40%). DIASTOLIC: Diastolic function is indeterminate. ATRIAL SEPTUM: Visually appears intact. LEFT ATRIUM: Normal chamber size. RIGHT ATRIUM: Mild dilatation. RIGHT VENTRICLE: Normal chamber size. Normal systolic function. TRICUSPID VALVE: Normal mobility and thickness. No stenosis with trivial regurgitation. Unable to accurately estimate right sided pressures due to lack of measurable tricuspid regurgitation. MITRAL VALVE: Normal mobility and thickness. No evidence of mitral valve stenosis. There is no mitral annular calcification. Trivial mitral regurgitation. AORTIC VALVE: Normal trileaflet appearance. No visible sclerosis. Normal leaflet mobility. No evidence of aortic valve stenosis. Mild to moderate aortic regurgitation. AORTIC ROOT: Normal diameter and appearance relative to body surface area, measuring 4.2 cm. BSA 2.27 m?. PULMONIC VALVE: Normal thickness and mobility. No stenosis. No regurgitation. PERICARDIUM: No evidence of pericardial effusion. IVC: Collapses with inspirations. IVC is normal in size. PLEURA: CONCLUSION: 1. Mild concentric left ventricular hypertrophy. Systolic function is difficult to assess due to poor sound transmission but appears moderately reduced. Estimated LVEF is 35 to 40%. 2. Normal right ventricular size and systolic function. 3. Mild to moderate aortic regurgitation. 4. No pericardial effusion. 5. Technically difficult study with poor sound transmission. Adult Echocardiography Procedure Report Left Ventricle LVEDD (3.7 - 5.6 cm): 4.89 cm LVESD (2.2 - 4.0 cm): 3.49 cm LVIVS thickness (0.6 - 1.2 cm): 1.23 cm LVPW thickness (0.5 - 1.0 cm): 1.09 cm e': 0.11 m/s E - e': 3.57 LVOT Max Gradient: 2.24 mm[Hg] LVOT Area (cm2): 0.75 m/s Peak Velocity (LVOT): 0.75 m/s Mean Velocity (LVOT): 0.52 m/s LVOT Diameter 2.39 cm Left Atrium LA Volume Index (2D A2C): 24.72 ml/m2 Left Atrium Systolic Dimension: 4.04 cm Mitral Valve MV E to A Ratio: 0.67 Mitral Valve A-Wave Peak Velocity: 0.60 m/s Mitral Valve E-Wave Peak Velocity: 0.40 m/s Right Ventricle Aorta AO Root Diam: 4.20 cm Aortic Valve AoV Area (Peak Roger): 1.98 cm2, 1.98 cm2 AoV Area (VTI): 2.21 cm2, 2.21 cm2 Peak Velocity(Antegrade Flow): 1.69 m/s Peak Gradient(Antegrade Flow): 11.43 mm[Hg] Mean Velocity(Antegrade Flow): 0.97 m/s Mean Gradient(Antegrade Flow): 4.75 mm[Hg] Velocity Time Integral: 28.83 cm Tricuspid Valve Pulmonic Valve Peak Velocity: 1.01 m/s Peak Gradient: 4.05 mm[Hg] Right Atrium Right Atrium Systolic Pressure: 61.14 ml, 61.14 ml Dictated by: Joseph Soriano M.D. on 02/03/2025 at 20:39 Approved by: Joseph Soriano M.D. on 02/03/2025 at 20:46 Dictated by: Joseph Soriaon M.D. on 02/03/2025 at 20:55 Approved by: Joseph Soriano M.D. on 02/03/2025 at 20:55
== END 2025-02-03 08:54 | disposition home or self-care (01) ==
LOC: CARD 08:53
PROVIDERS: PCP Family Medicine; Visit Provider Internal Medicine Cardiovascular Disease
DX: I50.41 Acute combined systolic (congestive) and diastolic (congestive) heart failure (principal); I71.40 Abdominal aortic aneurysm, without rupture, unspecified
CPT/HCPCS: 93306

== ENCOUNTER 2025-02-21 09:56 | Outpatient (OUT) | payer MEDICARE, SELFPAY ==
--- OUTSIDE RECORDS SUMMARY | 2012-03-06 05:34 | XMS_ITS | Continuity of Care Document ---
Author Organization [facility] Address [address] [place] [address] [place] [address] Phone Care Team Providers Care Brick Mason Name Role Phone JUAN FINK MD Unavailable [...] on Encounter [facility], [address] [place] [address], [address] [place] [address], tel:[phone] [facility] No Information 2 DANAE MARTINEZ. [address] [place] [address], [address] [place] [address], . tel:[phone] [facility], [address] [place] [address], [address] [place] [address], tel:[phone] [facility] No Information 2 DANAE MARTINEZ. [address] [place] [address], [address] [place] [address], . tel:[phone] Offic/outpt E&m Estab Minor 10 [facility], [address] [place] [address], [address] [place] [address], tel:[phone] [facility] No Information 1 DANAE MARTINEZ. [address] [place] [address], [address] [place] [address], . tel:[phone] [facility], [address] [place] [address], [address] [place] [address], tel:[phone] [facility] No Information 1 DANAE MARTINEZ. [address] [place] [address], [address] [place] [address], . tel:[phone] [facility], [address] [place] [address], [address] [place] [address], tel:[phone] [facility] No Information Oct-0 3-201 1 DANAE LEALPELONLAKEISHA. [address] [place] [address], [address] [place] [address], . tel:[phone] [facility], [address] [place] [address], [address] [place] [address], tel:[phone] [facility] No Information Sep-2 2-201 1 BERYL ABBOTT. [address] [place] [address], [address] [place] [address], . tel:[phone] Referring Provider: Nigel Carvajal, [address] [place] [address], [facility]. tel:[phone] [facility], [address] [place] [address], [address] [place] [address], tel:[phone] [facility] No Information Sep-2 1-201 1 PANDA IBRAHIM. [address] [place] [address], [address] [place] [address], . tel:[phone] Referring Provider: Nigel Carvajal, [address] [place] [address], [facility]. tel:[phone] [facility], [address] [place] [address], [address] [place] [address], tel:[phone] [facility] No Information Sep-0 7-201 1 Samreen Ochoa. [address] [place] [address], [address] [place] [address], . tel:[phone] Referring Provider: Nigel Carvajal, [address] [place] [address], [facility]. tel:[phone] Offic/outpt E&m Estab Low-mod [facility], [address] [place] [address], [address] [place] [address], tel:[phone] [facility] No Information Oct-0 8-200 9 BERYL ABBOTT. [address] [place] [address], [address] [place] [address], . tel:[phone] Offic/outpt E&m Estab Low-mod [facility], [address] [place] [address], [address] [place] [address], tel:[phone] [facility] No Information Nov-2 6-200 7 KIBILOSÁLVARO MILENA. [address] [place] [address], [address] [place] [address], . tel:[phone] [facility], [address] [place] [address], [address] [place] [address], tel:[phone] [facility] No Information 5-200 7 KIBILOSKI MILENA. [address] [place] [address], [address] [place] [address], [place]. tel:[phone] [facility], [address] [place] [address], [address] [place] [address], tel:[phone] [facility] No Information Dec-0 4-200 6 KIBILOSÁLVARO MILENA. [address] [place] [address], [address] [place] [address], . tel:[phone] [facility], [address] [place] [address], [address] [place] [address], tel:[phone] [facility] In Patient No Information 7-200 6 KIBILOSÁLVARO MILENA. [address] [place] [address], [address] [place] [address], . tel:[phone] [facility], [address] [place] [address], [address] [place] [address], tel:[phone] [facility] No Information January-2 5-200 6 KIBILOSÁLVARO MILENA. [address] [place] [address], [address] [place] [address], [place]. tel:[phone] Referring Provider: Jaquan Dowell, [address] [place], [facility]. tel:[phone] [facility], [address] [place] [address], [address] [place] [address], tel:[phone] [facility] No Information Oct-0 2-200 3 KIBILOSKI MILENA. [address] [place] [address], [address] [place] [address], [place]. tel:[phone] [facility], [address] [place] [address], [place], [place], [id number], [place] tel:[phone] [facility] No Information No Information Family History Family Member Type Diagnosis Age At Onset No Information Payers Payer name Insurance type Covered republican ID Saleem ya(s) [facility] [id number] Medicare Part B [id number] Social History Type Description Quantity Date Captured Comments Sex Male Smoking Status No Information Chief Complaint And Reason For Visit No Information Reason For Referral Reason For Referral No Information Plan Of Treatment Date Type Action Status Future Order: Lab Order Cervical W/o Contrast ([id number]), Appointment on: , Sent on: Sent Future Order: Lab Order L Spine 3VW w/spot ([id number]), Sent on: Sent Future Order: Lab Order Thoracic Spine 2VW ([id number]), Sent on: Sent Future Order: Lab Order C Spine 2VW ([id number] 0), Sent on: Sent Future Order: Lab Order Lumbar W /o Contrast ([id number]), Appointment on: , Sent on: Sent Future Order: Lab Order Thoracic W/o Contrast ([id number]), Appointment on: , Sent on: Sent Future Order: Lab Order Hip 2 VW Left ([id number]), Sent on: Sent History Of Present Illness Encounter Date Complaint History Of Prese nt Illness No Information Functional Status Date Functional Assessmen t No Information Instructions Date Instruction Additional Infor mation No Information Assessments Type Assessment Date No Information Patient Care Teams Name Effective Dates (start - stop) Status Members No Information
--- NOTE | 2025-02-21 09:58 | MR_ITS ---
The [address] [address] Patient Name: ELISE TABOR MRN: [id number] date: 1960 Sex: M Assigned Patient Location: MRI Current Patient Location: MRI Accession/Order Number: [id number] Exam Date: 02/21/2025 10:55 Report Date: 02/21/2025 11:03 At the request of: DONNA RAMOS MD Procedure: MR head/brain wo con EXAMINATION: MRI OF THE BRAIN WITHOUT CONTRAST CLINICAL HISTORY: Chronic headaches G43.909 COMPARISON: None TECHNIQUE: Multiecho, multiplanar imaging of the brain was performed without enhancement. Mild cortical atrophy is seen. The ventricles are normal in size and position. A few scattered foci of increased T2 and FLAIR signal are present within the subcortical white matter bilaterally. This is nonspecific though likely minor microvascular disease. There are no additional areas of abnormal signal intensity within the supra- or infratentorial brain. No restricted diffusion is identified to suggest a recent ischemic event. There are no extra-axial collections or mass effect. The imaged paranasal sinuses and mastoid air cells are clear. MR/MR head/brain wo con IMPRESSION: MINOR ATROPHY AND CHRONIC MICROVASCULAR DISEASE. NO ACUTE INTRACRANIAL FINDINGS. Impression dictated by: Uyen Salazar M.D. 02/21/2025 11:03 AM Dictation Location: [place] [address] Electronically authenticated by: [id number] Y Date: 02/21/2025 11:03
--- OUTSIDE RECORDS SUMMARY | 2025-02-21 09:58 | XMS_ITS | Encounter Summary ---
Author Organization [facility] Address [address] [place] [address] Care Team Providers Care Parking Inspector Name Role Phone Mario Zayas MD Primary Care Provider [phone] Reason for Visit * Reason Onset Date Comments Med Refill 02/09/2025 Encounter Details Date Type Department Care Team (Late st Contact Info) Description 02/09/2025 Refill [facility] at [facility] [address] [place] [address] Tamara Vázquezah [place] Paroxysmal atrial fibrillation (CMS/HCC); Hyperlipidemia, unspecified hyperlipidemia type; Benign hypertensive heart disease 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; Palpitations Social History Tobacco Use Types Packs/Day Years Used Date Smoking Tobacco: Former Cigarettes Smokeless Tobacco: Never Alcohol Use Standard Drinks/Week Comments Not Asked 0 (1 standard drink = 0.6 oz pur e alcohol) occasional Sex and Gender Information Value Date Recorded Sex Assigned at Not on file Legal Sex Male 2:46 PM EST Gender Identity Not on file Sexual Orientation Not on file documented as of this encounter Plan of Treatment Not on file documented as of this encounter Visit Diagnoses Diagnosis Paroxysmal atrial fibrillation (CMS/HCC) Atrial fibrillation Hyperlipidemia, unspecified hyperlipidemia type Benign hypertensive heart disease 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 Benign hypertensive heart disease without heart failure Palpitations documented in this encounter Care Teams Parking Inspector Relationship Specialty Start Date End Date Mario Zayas MD [address] [facility] [address] [address] PCP - General Family Medicine 02/09/25 documented as of this encounter
--- OUTSIDE RECORDS SUMMARY | 2025-02-21 09:58 | XMS_ITS | Clinical Summary ---
Author Organization [facility] tem Address [id number] [address] [place] [address] Care Team Providers Care Preservationist Name Role Phone Pauly Santacruz DISTRICT WILDLIFE MANAGER-ASSISTANT BASEBALL COACH Primary Care Provider [phone] Allergies Active Allergy Reactions Criticality Noted Date Comments Gluten 05/08/2022 Isosorbide Mononitrate Headache 06/21/2022 Medications omeprazole (PriLOSEC) 40 mg capsule Take 1 capsule (40 mg total) by mouth in the morning. Active gabapentin (NEURONTIN) 600 mg tablet Take 1 tablet (600 mg total) by mouth 3 (three) times a day. Active DALIRESP 500 mcg tablet Take 1 tablet (500 mcg total) by mouth in the morning. Active fluticasone-ume clidin-vilanter (TRELEGY ELLIPTA) 200-62.5-25 mcg blister with device 1 puff in the morning. Active ipratropium-alb uteroL (DUONEB) 0.5 mg-3 mg(2.5 mg base)/3 mL nebulizer Active ascorbic acid, vitamin C, (VITAMIN C) 1000 mg tablet Take 1 tablet (1,000 mg total) by mouth in the morning. Active naproxen-pseudo ephedrine 220-120 mg tablet extended release 12 hr Take by mouth. A ctive albuterol (PROVENTIL HFA;VENTOLIN HFA) 90 mcg/actuation inhaler Inhale 2 puffs every 6 (six) hours as needed for wheezing. Active albuterol (PROVENTIL) 5 mg/mL nebulizer solution Inhale 0.5 mL (2.5 mg total) by nebulization every 4 (four) hours as needed for wheezing. Active aspirin 81 mgIndications:C oronary artery disease involving coronary bypass graft of [place] heart without angina pectoris,Paroxy smal atrial fibrillation (CMS-HCC),Aneur ysm of ascending aorta without rupture,Hx of CABG,History of maze procedure Take 1 tablet (81 mg total) by mouth in the morning. 90 tablet 3 022 Active oxygen Inhale continuously. Active cyanocobalamin (vitamin B-12) 1000 MCG tablet Take 1 tablet (1,000 mcg total) by mouth in the morning. Active cholecalciferol 1,000 units tablet Take 1 tablet (1,000 Units total) by mouth in the morning. Active ferrous sulfate 325 (65 FE) mg EC tablet Take 65 mg by mouth daily with breakfast. Active TESTOSTERONE, BULK, MISC by miscellaneous route. 100 mg 1 tablet daily Active zinc gluconate 50 mg tablet Take 1 tablet (50 mg total) by mouth in the morning. Active metoprolol succinate XL (TOPROL XL) 50 mg 24 hr tabletIndicatio ns:Coronary artery disease involving coronary bypass graft of [place] heart without angina pectoris,Hx of CABG,Paroxysmal atrial fibrillation (CMS-HCC),Aneur ysm of ascending aorta without rupture,History of maze procedure Take 100 mg in the morning and 50 mg at night 270 tablet 3 023 Active theophylline (BRYAN-24) 400 MG 24 hr capsule Take 1 capsule (400 mg total) by mouth in the morning. Active atorvastatin (LIPITOR) 40 mg tabletIndicatio ns:Coronary artery disease involving coronary bypass graft of [place] heart without angina pectoris,Hx of CABG,Paroxysmal atrial fibrillation (CMS-HCC),Aneur ysm of ascending aorta without rupture,History of maze procedure Take 1 tablet (40 mg total) by mouth in the morning. 90 tablet 1 024 Active apixaban (ELIQUIS) 5 mg tablet Take 1 tablet (5 mg total) by mouth in the morning and 1 tablet (5 mg total) before bedtime. 180 tablet 1 024 Active nitroglycerin (NITROSTAT) 0.4 MG SL tabletIndicatio ns:Coronary artery disease involving coronary bypass graft of [place] heart without angina pectoris,Paroxy smal atrial fibrillation (CMS-HCC),Aneur ysm of ascending aorta without rupture,Hx of CABG,History of maze procedure DISSOLVE 1 TABLET UNDER THE TONGUE NEEDED FOR CHEST PAIN- MAY REPEAT EVERY 5 MINUTES IF NEEDED ( MAX 3 DOSES.- IF NO RELIEF CALL 911) 25 tablet 11 024 Active lisinopriL (PRINIVIL,ZESTR IL) 5 mg tabletIndicatio ns:Coronary artery disease involving coronary bypass graft of [place] heart without angina pectoris,Hx of CABG,Paroxysmal atrial fibrillation (CMS-HCC),Aneur ysm of ascending aorta without rupture,History of maze procedure Take 1 tablet (5 mg total) by mouth in the morning. FINAL REFILL UNTIL LABS COMPLETED. 90 tablet 025 Active lisinopriL (PRINIVIL,ZESTR IL) 5 mg tabletIndicatio ns:Coronary artery disease involving coronary bypass graft of [place] heart without angina pectoris,Hx of CABG,Paroxysmal atrial fibrillation (CMS-HCC),Aneur ysm of ascending aorta without rupture,History of maze procedure TAKE 1 TABLET BY MOUTH ONCE DAILY IN THE MORNING 30 tablet 025 2024 Discontinued Active Problems Problem Noted Date Diagnosed Date Mixed hyperlipidemia 06/24/2024 Primary hypertension 06/24/2024 Left ventricular dysfunction 06/24/2024 Coronary artery disease invo lving coronary bypass graft of [place] heart without angina pectoris 05/20/2022 Paroxysmal atrial fibrillation 05/20/2022 Thoracic aortic aneurysm without rupture 022 Hx of CABG 05/20/2022 History of maze procedure 05/20/2022 Encounters Date Type Department Care Team Description 02/07/2025 Refill [facility] [address] [place] [id number] Pablo Zaragoza APRN-ACCOUNT RECEIVABLE CLERK Med Change Request 11/25/2024 Telephone [facility] [address] [place] [address] Arti Mauro, STEVE transfering care from Last 3 Months Family History Medical History Relation Name Comments Heart disease Father Breast cancer Mother Cancer Mother Relation Name Status Comments Father Maternal Grandfather Maternal Grandmother Mother Paternal Grandfather Paternal Grandmother Social History Tobacco Use Types Packs/Day Years Used Date Smoking Tobacco: Former Smokeless Tobacco: Never Tobacco Cessation:Counseling Given: Not Answered Alcohol Use Standard Drinks/Week Comments Not Currently 0 (1 standard drink = 0.6 oz pur e alcohol) ocassional Hunger Screening Answer Date Recorded Within the past 12 months we worried whether our food would run out before we got money to buy more. Never True 06/24/2024 Within the past 12 months th e food we bought just didn't last and we didn't have money to get more. Never True 06/24/2024 Sex and Gender Information Value Date Recorded Sex Assigned at Not on file Legal Sex Male 3:47 PM EDT Gender Identity Not on file Sexual Orientation Not on file Last Filed Vital Signs Vital Sign Reading Time Taken Comments Blood Pressure 122/62 06/24/2024 1:52 PM EDT Pulse 74 06/24/2024 1:52 PM EDT Temperature - - Respiratory Rate - - Oxygen Saturation 94% 06/24/2024 1:52 PM EDT Inhaled Oxygen Concentration - - Weight 111.1 kg (245 lb) 06/24/2024 1:52 PM EDT Height 172.7 cm (5' 7.99 ) 06/24/2024 1:52 PM ED T Body Mass Index 37.26 06/24/2024 1:52 PM EDT Plan of Treatment Health Maintenance Due Date Last Done Comments Depression Screening 1972 Adult BMI Follow Up Plan 1978 Zoster (Shingles) Vaccine (1 of 2) 2010 Influenza Vaccine 05/09/2025 08/13/2023, 05/23/2021 Adult BMI Screening 06/24/2025 06/24/2024 Tobacco Screening 06/24/2025 06/24/2024 DTaP,Tdap and Td Vaccines (2 - Td or Tdap) 08/13/2033 08/13/2023 Medical Devices Not on file Insurance [employer] MEDICARE Care Teams Preservationist Relationship Specialty Start Date End Date Pauly Santacruz APRN-FNP [address] [place], [place] [id number] PCP - General Family Medicine 06/24/24
--- OUTSIDE RECORDS SUMMARY | 2025-02-21 09:58 | XMS_ITS | Encounter Summary ---
Author Organization [facility] Address [address] [place] [address] Care Team Providers Care Oil Spraying Machine Operator Name Role Phone Mario Zayas MD Primary Care Provider [phone] Encounter Details Date Type Department Care Team (Late st Contact Info) Description 02/10/2025 Orders Only [facility] Heart at [facility] [address] [place] [address] Melita Ignacio MA Benign hypertensive heart disease 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 Social History Tobacco Use Types Packs/Day Years [...] as of this encounter Visit Diagnoses Diagnosis Benign hypertensive heart disease 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 Benign hypertensive heart disease without heart failure documented in this encounter Care Teams Oil Spraying Machine Operator Relationship Specialty Start Date End Date Mario Zayas MD [address] [facility] [address] [address] PCP - General Family Medicine 02/09/25 documented as of this encounter
--- OUTSIDE RECORDS SUMMARY | 2025-02-21 09:58 | XMS_ITS | Encounter Summary ---
Author Organization [facility] Address [id number] [address] [place] [address] Care Team Providers Care Applied Psychology Teacher Name Role Phone Pauly Santacruz COOKER CLEANER-MIXER AND BLENDER Primary Care Provider [phone] Encounter Details Date Type Department Care Team (Late st Contact Info) Description 06/25/2024 Orders Only [facility] [address] [place] [address] External, Scanning Provider Social History Tobacco Use Types Packs/Day Years Used Date Smoking Tobacco: Former Smokeless Tobacco: Never Alcohol Use Standard Drinks/Week Comments Not Currently [...] on file documented as of this encounter Procedures Procedure Name Priority Date/Time Associated Diagnosis Comments ECG 12-LEAD Routine 06/25/2024 8:17 AM EDT ECG 12-LEAD Routine 06/25/2024 8:13 AM EDT documented in this encounter Results * ECG 12 lead (06/25/2024 8:17 AM EDT) us Scanning Provider External ECG ORDERABLES Final Result Performing Organization Address City/State/[facility] Co de Phone Number MANUALLY TRANSCRIBED RESULTS * ECG 12 lead (06/25/2024 8:13 AM EDT) us Scanning Provider External ECG ORDERABLES Final Result Performing Organization Address City/State/[facility] Co de Phone Number MANUALLY TRANSCRIBED RESULTS documented in this encounter Visit Diagnoses Not on filedocumented in this encounter Care Teams Applied Psychology Teacher Relationship Specialty Start Date End Date Pauly Santacruz APRN-FNP [address] [place] [address] PCP - General Family Medicine 06/24/24 documented as of this encounter
--- OUTSIDE RECORDS SUMMARY | 2025-02-21 09:58 | XMS_ITS | Encounter Summary ---
Author Organization [facility] Address [id number] [address] [place] [address] Care Team Providers Care Roto Gravure Press Operator Name Role Phone Pauly Santacruz MARKETING BUDGET ANALYST-MECHANICAL ENGINEERING PROFESSOR Primary Care Provider [phone] Reason for Visit * Reason Comments Med Change Request Encounter Details Date Type Department Care Team (Late st Contact Info) Description 02/07/2025 Refill [facility] [address] [place] [address] Pablo Zaragoza, VIC-[employer]PENTER [employer] [address] [place] [address] Med Change Request Social History Tobacco Use Types Packs/Day Years [...] on file documented as of this encounter Miscellaneous Notes * Telephone Encounter - Destiny Connell - 02/07/2025 3:33 PM EDT GATO LLD 06/24/24 CMP 06/07/23, ORDER IN PLACE LETTER SENT documented in this encounter Plan of Treatment Not on file documented as of this encounter Visit Diagnoses Diagnosis Coronary artery disease involving coronary bypass graft of [place] heart without angina pectoris Hx of CABG Postsurgical aortocoronary bypass status Paroxysmal atrial fibrillation ([facility]-HCC) Atrial fibrillation Aneurysm of ascending aorta without rupture History of maze procedure documented in this encounter Care Teams Roto Gravure Press Operator Relationship Specialty Start Date End Date Pauly Santacruz APRN-MECHANICAL ENGINEERING PROFESSOR [address] [place] [address] PCP - General Family Medicine 06/24/24 documented as of this encounter
--- OUTSIDE RECORDS SUMMARY | 2025-02-21 09:58 | XMS_ITS | Referral Summary ---
Author Organization [facility] Address [address] [place] [address] Care Team Providers Care Building Inspector Name Role Phone Mario Zayas MD Primary Care Provider [phone] Encounters Date Type Department Care Team Description 02/10/2025 Orders Only [address] [address] Melita Ignacio MA Benign hypertensive heart disease 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 02/09/[address] [address] Danni Vázquez MA Paroxysmal atrial fibrillation (CMS/HCC); Hyperlipidemia, unspecified hyperlipidemia type; Benign hypertensive heart disease 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; Palpitations 02/09/[address] [address] Danni Vázquez MA 02/04/2025 Orders Only [address] [address] Rocky Farris MD 12/31/2024 3:00 PM EDT Office Visit [address] [address] Dorinda Diaz MD Coronary artery disease involving [place] coronary artery of [place] heart without angina pectoris (Primary Dx); Cardiomyopathy, ischemic; Chronic systolic heart failure (CMS/HCC); Acute combined systolic and diastolic heart failure (CMS/HCC); Aneurysm of ascending aorta without rupture; Paroxysmal A-fib (CMS/HCC); Essential hypertension; Pure hypercholesterolemia; Class 2 severe obesity due to excess calories with serious comorbidity and body mass index (BMI) of 35.0 to 35.9 in adult ([facility]) from Last 3 Months Allergies No known active allergies Medications azithromycin (Zithromax) 250 mg tablet Take 250 mg by mouth in the morning. Active aspirin 81 mg chewable tablet Chew 81 mg in the morning. Active Trelegy Ellipta 200-62.5-25 mcg blister with device Inhale 1 puff in the morning. 03/15/20 22 Active albuterol (Ventolin HFA) 90 mcg/actuation inhaler every 4 (four) hours. Active ipratropium-albute roL (Duo-Neb) 0.5-2.5 mg/3 mL nebulizer solution INHALE 1 vial via NEBULIZER FOUR TIMES DAILY NEEDED Active predniSONE (Deltasone) 10 mg tablet Take 10 mg by mouth in the morning. 06/19/20 24 Active pregabalin (Lyrica) 150 mg capsule Take 150 mg by mouth 3 times a day. 05/17/20 24 Active meloxicam (Mobic) 15 mg tablet Take 15 mg by mouth in the morning. Active omeprazole (PriLOSEC) [address] capsule Take 40 mg by mouth before breakfast. Active theophylline ER (Uniphyl) 400 mg 24 hr tablet Take 400 mg by mouth in the morning. Active roflumilast (Daliresp) 500 mcg tablet Take 500 mcg by mouth in the morning. Active nitroglycerin (Nitrostat) 0.4 mg SL tablet DISSOLVE 1 TABLET UNDER THE TONGUE NEEDED FOR CHEST PAIN- MAY REPEAT EVERY 5 MINUTES IF NEEDED ( MAX 3 DOSES.- IF NO RELIEF CALL 911) 07/25/20 22 Active cholecalciferol, vitamin D3, 50 mcg (2,000 unit) capsule 1 capsule. Active zinc gluconate 50 mg tablet 1 (one) time each day at the same time. Active apixaban (Eliquis) 5 mg tabletIndications: Paroxysmal atrial fibrillation ([facility]) Take 1 tablet (5 mg) by mouth two times daily. 180 tablet 3 02/10/20 25 026 Active atorvastatin (Lipitor) 80 mg tabletIndications: Hyperlipidemia, unspecified hyperlipidemia type Take 1 tablet (80 mg) by mouth at bedtime. 90 tablet 3 02/10/20 25 026 Active lisinopril 5 mg tabletIndications: Benign hypertensive heart disease 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 Take 1 tablet (5 mg) by mouth once daily as directed. 90 tablet 3 02/10/20 25 Active spironolactone (Aldactone) 25 mg tabletIndications: Benign hypertensive heart disease 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 Take 1 tablet (25 mg) by mouth in the morning. 90 tablet 3 02/10/20 25 026 Active metoprolol succinate XL (Toprol-XL) 50 mg 24 hr tabletIndications: Palpitations Taking 100mg in the AM, 50mg in the PM 270 tablet 3 02/10/20 25 Active dapagliflozin propanediol (Farxiga) 10 mgIndications:Poncho gn hypertensive heart disease 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 Take 1 tablet (10 mg) by mouth once daily as directed. 90 tablet 3 02/11/20 25 026 Active lisinopril 5 mg tablet Take 5 mg by mouth in the morning. 025 Discontin ued(Reord er) metoprolol succinate XL (Toprol-XL) 50 mg 24 hr tabletIndications: Palpitations Taking 100mg in the AM, 50mg in the PM 270 tablet 3 08/16/20 24 025 Discontin ued(Reord er) atorvastatin (Lipitor) 80 mg tabletIndications: Hyperlipidemia, unspecified hyperlipidemia type Take 1 tablet (80 mg) by mouth in the morning. 90 tablet 3 10/07/19 025 Discontin ued(Reord er) apixaban (Eliquis) 5 mg tabletIndications: Paroxysmal atrial fibrillation (CMS/HCC) Take 1 tablet (5 mg) by mouth two times daily. 180 tablet 3 10/07/19 25 025 Discontin ued(Reord er) spironolactone (Aldactone) 25 mg tabletIndications: Benign hypertensive heart disease 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 Take 1 tablet (25 mg) by mouth in the morning. 90 tablet 3 10/07/19 25 025 Discontin ued(Reord er) dapagliflozin propanediol (Farxiga) 10 mgIndications:Poncho gn hypertensive heart disease 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 Take 1 tablet (10 mg) by mouth once daily as directed. 30 tablet 11 10/07/19 25 025 Discontin ued(Reord er) dapagliflozin propanediol (Farxiga) 10 mgIndications:Poncho mccallum hypertensive heart disease 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 Take 1 tablet (10 mg) by mouth once daily as directed. 90 tablet 3 02/10/20 25 025 Discontin ued(Reord er) Active Problems Problem Noted Date Diagnosed Date Arthritis 08/16/2024 Celiac disease 08/16/2024 Coronary artery disease invo lving [place] coronary artery of [place] heart without angina pectoris 08/16/2024 Erectile dysfunction 08/16/2024 Pain in wrist 08/16/2024 Peripheral polyneuropathy 08/16/2024 Cardiomyopathy, ischemic 08/16/2024 Chronic systolic heart failure 08/16/2024 Chronic anticoagulation 08/16/2024 Pure hypercholesterolemia 08/16/2024 Class 2 severe obesity due t o excess calories with serious comorbidity and body mass index (BMI) of 35.0 to 35.9 in adult 08/16/2024 Left ventricular dysfunction 06/24/2024 Mixed hyperlipidemia 06/24/2024 Essential hypertension 06/24/2024 DDD (degenerative disc disease), lumbar 01/20/20 24 Overview (08/16/2024): The patient is a 62 year old male that presents with low back pain that has been occurring for 15+ years and was diagnosed with degenerative disc disease. The patient also complains of radicular pain and paresthesias that have been occurring for the past 4-5 months into the bilateral lower extremities. He has not had an evaluation for this since his symptoms started over 15 years ago. BLE EMG 01/16/2023 revealed bilateral S1 radiculopathies, moderate in degree electrically. He has not had benefit with PT in the past. He reports he has had epidural injections in the past. Lumbar spine MRI 02/25/2023 revealed advanced degenerative disc changes throughout, mild L2-L3, L3-L4, and L4-L5 spinal canal stenoses. There was note of moderate right L4-L5 and left L2-L3 neural foraminal stenoses. Cymbalta caused side effect. Trileptal was ineffective. He has had no benefit with gabapentin increase. Neuropathy 01/20/2024 Paresthesia 01/20/2024 History of maze procedure 05/20/2022 Paroxysmal A-fib 05/20/2022 Thoracic aortic aneurysm without rupture 022 Cervicalgia 04/08/2018 Headache in back of head 04/08/2018 Resolved Problems Problem Noted Date Diagnosed Date Resolved Date Abdominal aortic aneurysm (A AA) without rupture 01/02/2025 01/02/2025 Social History Tobacco Use Types Packs/Day Years Used Date Smoking Tobacco: Former Cigarettes Smokeless Tobacco: Never Tobacco Cessation:Counseling Given: Not Answered Alcohol Use Standard Drinks/Week Comments Not Asked 0 (1 standard drink = 0.6 oz pur e alcohol) occasional Sex and Gender Information Value Date Recorded Sex Assigned at Not on file Legal Sex Male 2:46 PM EST Gender Identity Not on file Sexual Orientation Not on file Last Filed Vital Signs Vital Sign Reading Time Taken Comments Blood Pressure 117/80 12/31/2024 1:42 PM EDT Pulse 74 12/31/2024 1:42 PM EDT Temperature - - Respiratory Rate - - Oxygen Saturation 93% 12/31/2024 1:42 PM EDT Inhaled Oxygen Concentration - - Weight 113 kg (250 lb) 12/31/2024 1:42 PM EDT Height 175.3 cm (5' 9 ) 12/31/2024 1:42 PM EDT Body Mass Index 36.92 12/31/2024 1:42 PM EDT Plan of Treatment Not on file Procedures Procedure Name Priority Date/Time Associated Diagnosis Comments COMPLETE TRANSTHORACIC ECHO (TTE) W/WO IMAGING AGENT, STRAIN, 3D, BUBBLE STUDY Routine 02/03/2025 9:49 AM EDT from Last 3 Months Results * Complete Echo (TTE) w/wo Imaging Agent, Strain, 3D, Bubble Study (02/03/2025 9:49 AM EDT) Anatomical Region Laterality Modality Ultrasound us Historical Provider MD A[facility]ADI ECHO PROCEDURES Final Result from Last 3 Months Insurance [employer] MEDICARE ADVANTAGE Care Teams Building Inspector Relationship Specialty Start Date End Date Mario Zayas MD [address] [facility] [place] [address] PCP - General Family Medicine 02/09/25
--- OUTSIDE RECORDS SUMMARY | 2025-02-21 09:58 | XMS_ITS | Encounter Summary ---
Author Organization [facility] Address [address] [place] [address] Care Team Providers Care Twill Cutter Name Role Phone Mario Zayas MD Primary Care Provider [phone] Reason for Referral * Imaging (Routine) - Pending Review Specialty Diagnoses / Procedures Referred By Tonya t Referred To Contact Cardiology Diagnoses Coronary artery disease, unspecified vessel or lesion type, unspecified whether angina present, unspecified whether citizen [place] or transplanted heart [place] (dyspnea on exertion) Nonrheumatic mitral valve regurgitation Cardiomyopathy, ischemic Procedures Transthoracic echo (TTE) complete Dorinda Diaz MD [address] [place] [address] Phone: tel: fax: Referral ID Status Reason Start Date Expiration Date Visits Requested Visits Authorized [id number] Pending Review Perform Procedure 02/09/2025 02/09/2026 1 1 Encounter Details Date Type Department Care Team (Late st Contact Info) Description 02/09/2025 Telephone [facility] [address] [place] [address] Danni Vázquez MA Social History Tobacco Use Types Packs/Day Years [...] encounter Miscellaneous Notes * Telephone Encounter - Danni Vázquez MA - 02/09/2025 3:54 PM EDT Images from the original note were not included. Regarding lab results from 01/19/2025 and echo from 02/03/2025: MD Danni Hagan MA LDL Cholesterol is a little better than before. Please verify that he is taking atorvastatin 80 mg daily. If so, let him follow better low-fat diet and continue atorvastatin 80 mg daily and recheck fasting lipids and AST ALT in 3 months. Echo was technically difficult but EF appears around 35-40%, to confirm that let us repeat 2D echo with Lumason, also order lexiscan nuclear stress test to R/O ischemia. Spoke with patient and made him aware of plan. He verbalized understanding and agrees to testing. Told him I'd reorder the labs prior to apt in Apr-May 2025. documented in this encounter Plan of Treatment Scheduled Orders Name Type Priority Associated Diagnoses Orde r Schedule Lexiscan Stress Myocardial Perfusion Imaging Cardiac Services Routine Coronary artery disease, unspecified vessel or lesion type, unspecified whether angina present, unspecified whether citizen [place] or transplanted heart [place] (dyspnea on exertion) Expected: 02/09/2025 (Approximate), Expires: 02/09/2027 Transthoracic echo (TTE) complete Echocardiography Routine Coronary artery disease, unspecified vessel or lesion type, unspecified whether angina present, unspecified whether citizen [place] or transplanted heart [place] (dyspnea on exertion) Nonrheumatic mitral valve regurgitation Cardiomyopathy, ischemic Expected: 02/09/2025 (Approximate), Expires: 02/09/2027 documented as of this encounter Visit Diagnoses Diagnosis Coronary artery disease, unspecified vessel or lesion type, unspecified whether angina present, unspecified whether citizen [place] or transplanted heart [place] (dyspnea on exertion) Other dyspnea and respiratory abnormality Nonrheumatic mitral valve regurgitation Cardiomyopathy, ischemic Other specified forms of chronic ischemic heart disease documented in this encounter Care Teams Twill Cutter Relationship Specialty Start Date End Date Mario Zayas MD [address] [place] [id number] PCP - General Family Medicine 02/09/25 documented as of this encounter
--- OUTSIDE RECORDS SUMMARY | 2025-02-21 09:58 | XMS_ITS | Encounter Summary ---
Author Organization [facility] Address [address] [place] [address] Care Team Providers Care Grove Superintendent Name Role Phone Pauly Santacruz MD Primary Care Provider [phone] Encounter Details Date Type Department Care Team (Late st Contact Info) Description 02/04/[address] [facility] [address] [place] [address] ProviderRocky MD [address] [place] [id number] Social History Tobacco Use Types Packs/Day Years [...] BUBBLE STUDY Routine 02/03/2025 9:49 AM EDT documented in this encounter Results * Complete Echo (TTE) w/wo Imaging Agent, Strain, 3D, Bubble Study (02/03/2025 9:49 AM EDT) Anatomical Region Laterality Modality Ultrasound Historical Provider CV ECHO PROCEDURES Final Result documented in this encounter Visit Diagnoses Not on filedocumented in this encounter Care Teams Grove Superintendent Relationship Specialty Start Date End Date Pauly Santacruz MD [address] [place] [address] PCP - General Nurse Practitioner 08/16/24 02/08/25 documented as of this encounter
--- OUTSIDE RECORDS SUMMARY | 2025-02-21 09:58 | XMS_ITS | Clinical Summary ---
Author Organization [facility] Address [address] [place] [address] Care Team Providers Care Hand Mounter Name Role Phone Mario Zayas MD Primary Care Provider [phone] Allergies No known active allergies Medications azithromycin [...] 3 10/07/19 25 025 Discontin ued(Reord er) apixaban (Eliquis) 5 [...] disease 08/16/2024 Coronary artery disease invo lving elem coronary artery of elem heart without angina pectoris 08/16/2024 Erectile dysfunction [...] aneurysm (A AA) without rupture 01/02/2025 01/02/2025 Encounters Date Type Department Care Team Description 02/10/2025 Orders Only [address] [address] Melita Ignacio MA Benign hypertensive heart disease 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 02/09/[address] [address] Gurpreet, Danni CA Paroxysmal atrial fibrillation (CMS/HCC); Hyperlipidemia, unspecified hyperlipidemia type; Benign hypertensive heart disease 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; Palpitations 02/09/[address] [address] Danni Vázquez MA 02/04/2025 Orders Only [address] [address] Provider, MD Rocky 12/31/2024 3:00 PM EDT Office Visit [address] [address] Dorinda Diaz MD Coronary artery disease involving elem coronary artery of elem heart without angina pectoris (Primary Dx); Cardiomyopathy, ischemic; Chronic systolic heart failure (CMS/HCC); Acute combined systolic and diastolic heart failure (CMS/HCC); Aneurysm of ascending aorta without rupture; Paroxysmal A-fib (CMS/HCC); Essential hypertension; Pure hypercholesterolemia; Class 2 severe obesity due to excess calories with serious comorbidity and body mass index (BMI) of 35.0 to 35.9 in adult (CMS/HCC) from Last 3 Months Family History Medical History Relation Name Comments Coronary artery disease Father Coronary artery disease Mother Relation Name Status Comments Father Mother Sister Alive Social History Tobacco Use Types Packs/Day Years [...] 12/31/2024 1:42 PM EDT Plan of Treatment Health Maintenance Due Date Last Done Comments CT Colonography 1960 Colonoscopy 1960 Colorectal Cancer Screening 1960 FIT-DNA 1960 FIT 1960 FOBT 1960 Medicare Annual Wellness (AWV) 1960 Medicare Initial Physical (IPPE) 1960 Sigmoidoscopy 1960 Depression Screening 1972 Pneumococcal Vaccine: Pediatrics (0 to 5 Years) and At-Risk Patients (6 to 64 Years) (1 of 2 - PCV) 1979 Zoster Vaccines (1 of 2) 2010 COVID-19 Vaccine (2023-2 5 season) 2024 10/25/2020, 09/20/2020 Influenza Vaccine (Season Ended) 2025 08/13/2023, 05/23/2021 Adult Tetanus 08/13/2033 08/13/2023 HIB Vaccines Aged Out No longer eligi ble based on patient's age to complete this topic HPV Vaccines Aged Out No longer eligi ble based on patient's age to complete this topic IPV Vaccines Aged Out No longer eligi ble based on patient's age to complete this topic Meningococcal B Vaccine Aged Out No l onger eligible based on patient's age to complete this topic Meningococcal Vaccine Aged Out No robson meena eligible based on patient's age to complete this topic Rotavirus Vaccines Aged Out No longer eligible based on patient's age to complete this topic Procedures Procedure Name Priority Date/Time Associated Diagnosis [...] Months Insurance [employer] MED[employer]VANTAGE Care Teams Hand Mounter Relationship Specialty Start Date End Date Mario Zayas MD [address] [facility] [place] [address] PCP - General Family Medicine 02/09/25
--- OUTSIDE RECORDS SUMMARY | 2025-02-21 09:59 | XMS_ITS | Clinical Summary ---
Author Organization [facility] Address [address] [place] [address] Phone Care Team Providers Care Director Of Accounting Name Role Phone Unavailable Primary Care Provider Unavailabl e Social History Tobacco Use Types Packs/Day Years Used Date Smoking Tobacco: Never Assessed Sex and Gender Information Value Date Recorded Sex Assigned at Not on file Legal Sex Male 11:25 AM EST Gender Identity Not on file Sexual Orientation Not on file Last Filed Vital Signs Vital Sign Reading Time Taken Comments Blood Pressure 130/86 05/29/2022 2:58 PM EDT Pulse 91 05/29/2022 2:58 PM EDT Temperature 36.8 C (98.2 F) 05/29/2022 2:58 PM EDT Respiratory Rate 18 05/29/2022 2:58 PM EDT Oxygen Saturation 93% 05/29/2022 2:58 PM EDT Inhaled Oxygen Concentration - - Weight 109 kg (239 lb 7 oz) 05/29/2022 2:58 PM E DT Height 171 cm (5' 7.32 ) 05/29/2022 2:58 PM EDT Body Mass Index 37.15 05/29/2022 2:58 PM EDT Plan of Treatment Health Maintenance Due Date Last Done Comments CT Colonography 1960 Colonoscopy 1960 Colorectal Cancer Screening 1960 FIT-DNA (Cologuard) 1960 FIT 1960 HIV Screening 1960 Lipid Panel 1960 Sigmoidoscopy 1960 Yearly Adult Physical 1960 MMR Vaccines (1 of 1 - Stand kory series) 1961 Hepatitis C Screening 1978 Pneumococcal Vaccine (1 of 2 - PCV) 1979 DTaP/Tdap/Td Vaccines (1 - Tdap) 1982 Zoster Vaccines (1 of 2) 2010 RSV High Risk: (Elderly (60+ ) or Population) (1 - Risk 60-74 years 1-dose series) 2020 COVID-19 Vaccine ( - 2023-2 5 season) 2024 Influenza Vaccine (Season Ended) 2025 HIB Vaccines Aged Out No longer eligi ble based on patient's age to complete this topic HPV Vaccines Aged Out No longer eligi ble based on patient's age to complete this topic Hepatitis A Vaccines Aged Out No long er eligible based on patient's age to complete this topic Hepatitis B Vaccines Aged Out No long er eligible based on patient's age to complete this topic IPV Vaccines Aged Out No longer eligi ble based on patient's age to complete this topic Meningococcal Vaccine Aged Out No robson meena eligible based on patient's age to complete this topic Rotavirus Vaccines Aged Out No longer eligible based on patient's age to complete this topic
--- OUTSIDE RECORDS SUMMARY | 2025-02-21 10:14 | XMS_ITS | CCD ---
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, DARNELL Consulting Unavailable SAMSA ., DARNELL Admitting Unavailable [facility] Primary Care Unavailable DR ALEYDA DYER Consulting Unavailable SAMSA ., DARNELL Attending Unavailable SAMSA ., DARNELL Admitting Unavailable SAMSA ., DARNELL Consulting Unavailable Noam CHRISTIAN, Risa Unavailable EMELY CANTU Referring Unavailable KACIE DEL REAL Primary Care Unavailable GILLIAN TAYLOR Attending Unavailable KACIE DEL REAL Referring Unavailable RISA MCNULTY Primary Care Unavailable Kacie Del Real MD Primary Care Provider Noam HO-EDGE BLACKERRisa Diaz Primary Care Provider LINESY AHLL Attending Unavailable LINSEY HALL Attending Unavailable LINSEY HALL Attending Unavailable ALEYDA FISHER Attending Unavailable ROLAND BILL Referring Unavailable LINSEY HALL Attending Unavailable BENNY DIAZ Attending Unavailable BENNY DIAZ Attending Unavailable Allergies Allergy Classification Reported Allergen(s) Allergy Type Date of Onset Reaction(s) Facility (10 sources) Gluten Propensity to adverse reactions 2 GI intolerance [facility] Healthcare (10 sources) Isosorbide Dinitrate Drug Allergy 2 Headache [facility] Healthcare (11 sources) Gluten; Translations: [GLUTEN] Propensity to adverse reactions to food (disorder) 2 [facility] (11 sources) Isosorbide; Translations: [ISOSORBIDE MONONITRATE] Drug Allergy 2 Headache [facility] (1 source) ALLERGIES NOT ON FILE; Translations: [ALLERGIES NOT ON FILE] Propensity to adverse reactions (disorder) [facility] Repository Medications Current Medications Medication Drug Class(es) Dates Sig (Normalized) Sig (Original) acetaminophen 300 mg / codeine phosphate 30 mg oral tablet (10 sources) Opioid Agonist Start: 06-12-2023 take 1 tablet by mouth every six hours as needed for pain acetaminophen-code ine (Tylenol w/ Codeine #3) 300-30 MG tablet take 1 tablet by mouth every 6 hours NEEDED FOR PAIN for 5 days 06/12/2023 Active [id number] 200 actuat albuterol 0.09 mg/actuat metered dose [...] / ipratropium bromide 0.167 mg/ml inhalation solution (20 sources) Anticholinergic, beta2-Adrenergic Agonist Start: 02-20-2022 ipratropium-albuterol [...] 20-Feb-2022 Active apixaban 5 mg oral tablet (20 sources) Factor Xa Inhibitor Start: 06-04-2023 End: 02-18-2024 take 1 tablet by mouth in the morning apixaban (Eliquis) 5 MG tablet Take 5 mg by mouth in the morning and 5 mg in the evening. 06/04/2023 Active ascorbic acid 1000 mg oral tablet (20 sources) Vitamin C take 1 tablet by mouth in the morning ascorbic acid (Vitamin C) 1000 MG tablet Take 1,000 mg by mouth in the morning. Active aspirin 81 mg delayed release oral tablet (20 sources) Platelet Aggregation Inhibitor, Nonsteroidal Anti-inflammatory Drug Start: 07-25-2022 take 1 tablet by mouth in the morning aspirin 81 MG EC tablet Take 81 mg by mouth in the morning. 07/25/2022 Active atorvastatin 40 mg oral tablet (20 sources) HMG-CoA Reductase Inhibitor Start: 01-20-2023 End: 02-18-2024 take 1 tablet by mouth in the morning atorvastatin (LIPITOR) 40 mg tablet Indications: Coronary artery disease involving coronary bypass graft of king salmon heart without angina pectoris , Hx of CABG , Paroxysmal atrial fibrillation (CMS-HCC) , Aneurysm of ascending aorta without rupture , History of maze procedure Take 1 tablet (40 mg total) by mouth in the morning. 90 tablet 1 02/19/2024 Active azithromycin 250 mg oral tablet (10 sources) Macrolide Antimicrobial take 1 tablet by [...] Active dicyclomine hydrochloride 20 mg oral tablet (10 sources) Anticholinergic Start: 04-01-2023 take 1 tablet by mouth three times daily for pain dicyclomine (Bentyl) 20 MG tablet take 1 tablet by mouth three times a day if needed for abdominal pain 04/01/2023 Active ferrous sulfate 325 mg delayed release oral tablet (20 sources) take 1 tablet by mouth at mealtime ferrous sulfate 325 (65 Fe) MG EC tablet Take 65 mg by mouth in the morning. Take with meals. Active 30 actuat fluticasone furoate 0.1 mg/actuat / umeclidinium 0.0625 mg/actuat / vilanterol 0.025 mg/actuat dry powder inhaler (14 sources) Anticholinergic, Corticosteroid, beta2-Adrenergic Agonist Start: 03-15-2022 take 1 puff(s) by inhalation in the morning Trelegy Ellipta 100-62.5-25 MCG/ACT aerosol powder Inhale 1 puff in the morning. 03/15/2022 Active Start: 03-15-2022 Trelegy Ellipt a 100-62.5-25 MCG/INH AEPB Quantity: 180 Refills: 0 Ordered: 15-Mar-2022 DO Start : 15-Mar-2022 Active Chybthbicsh-Fsoadsiyx-Uqalmb 200-62.5-25 MCG/ACT aerosol powder (10 sources) Start: 11-19-2022 take 1 puff(s) by inhalation once daily Oxagbipupze-Xvfcccwil-Gpkqri 200-62.5-25 MCG/ACT aerosol powder Inhale 1 puff 1 (one) time each day. 11/19/2022 Active ipxnmpftnct-iqvbrsoqx-jaqwwz e r (TRELEGY ELLIPTA) 200-62.5-25 mcg blister with device (10 sources) Start: 03-15-2022 oynvmozkkal-swbwwvolx-qkblqx e r (TRELEGY ELLIPTA) 200-62.5-25 mcg blister with device 1 puff in the morning. 03/15/2022 Active gabapentin 600 mg oral table t (14 sources) Anti- epile ptic Agent Start: 03-30-2022 take 1 tablet by mouth three times daily gabapentin (NEURONTIN) 600 mg tablet Take 1 tablet (600 mg total) by mouth 3 (three) times a day. 03/30/2022 Active Start: 03-30-2022 Gabapentin 300 MG Oral Capsule Quantity: 270 Refills: 0 Ordered: 30-Mar-2022 DO Start : 30-Mar-2022 Active 24 hr isosorbide mononitrate 30 mg extended release oral tablet (10 sources) Nitrate Vasodilator Start: 06-13-2022 take 1 tablet by mouth in the morning, then take 1 tablet by mouth every twenty-four hours isosorbide mononitrate ER (Imdur) 30 MG 24 hr tablet Take 30 mg by mouth in the morning. 06/13/2022 Active lisinopril 5 mg oral tablet (20 sources) Angiotensin Converting Enzyme Inhibitor Start: 01-20-2023 End: 11-12-2024 take 1 tablet by mouth once daily in the morning lisinopriL (PRINIVIL,ZESTRIL) 5 mg tablet Indications: Coronary artery disease involving coronary bypass graft of king salmon heart without angina pectoris , Hx of CABG , Paroxysmal atrial fibrillation ([facility]) , Aneurysm of ascending aorta without rupture , History of maze procedure TAKE 1 TABLET BY MOUTH ONCE DAILY IN THE MORNING 30 tablet 11/12/2024 Active Start: 03-14-2022 Lisinopril 5 M G Oral Tablet Quantity: 90 Refills: 0 Ordered: 14-Mar-2022 DO Start : 14-Mar-2022 Active Ann Marie 500 MG capsule (10 sources) Ann Marie 500 MG caps ule as directed Orally Active 24 hr metoprolol succinate 50 mg extended release oral tablet (20 sources) beta-Adrenergic Melonie Start: 06-25-2023 metoprolol succinate XL (TOPROL XL) 50 mg 24 hr tablet Indications: Coronary artery disease involving coronary bypass graft of king salmon heart without angina pectoris , Hx of CABG , Paroxysmal atrial fibrillation (CMS-HCC) , Aneurysm of ascending aorta without rupture , History of maze procedure Take 100 mg in the morning and 50 mg at night 270 tablet 3 06/25/2023 Active Start: 03-23-2022 take 1 tablet by lamont th every twenty-four hours Metoprolol Succinate ER 50 MG Oral Tablet Extended Release 24 Hour Quantity: 135 Refills: 0 Ordered: 23-Mar-2022 DO Start : 23-Mar-2022 Active naproxen sodium 220 mg oral tablet (10 sources) Nonsteroidal Anti-inflammatory Drug naproxen sodium (Aleve) 220 MG tablet every 12 (twelve) hours. Active 12 hr naproxen sodium 220 mg / pseudoephedrine hydrochloride 120 mg extended release oral tablet (20 sources) alpha-Adrenergic Agonist, Nonsteroidal Anti-inflammatory Drug take 1 tablet by mouth every twelve hours in the morning pseudoephedrine-Nap roxen Na ER 120-220 MG tablet sustained-release 12 hour Take 1 tablet by mouth in the morning and 1 tablet before bedtime. Active nitroglycerin 0.4 mg sublingual tablet (20 sources) Nitrate Vasodilator Start: nitroglycerin (Nitrostat) 0.[address] 0.4 mg under the tongue every 5 (five) minutes if needed for chest pain. 07/25/2022 Active Start: 07-25-2022 End: 08-03-2024 nitroglycerin (NITROSTAT) 0. 4 MG SL tablet Indications: Coronary artery disease involving coronary bypass graft of king salmon heart without angina pectoris , Paroxysmal atrial fibrillation (CMS-HCC) , Aneurysm of ascending aorta without rupture , Hx of CABG , History of maze procedure DISSOLVE 1 TABLET UNDER THE TONGUE NEEDED FOR CHEST PAIN- MAY REPEAT EVERY 5 MINUTES IF NEEDED ( MAX 3 DOSES.- IF NO RELIEF CALL 911) 25 tablet 11 08/03/2024 Active ofloxacin 3 mg/ml otic solution (10 sources) Quinolone Antimicrobial Start: 02-17-2023 ofloxacin (Floxin) 0.3 % otic solution Indications: Otorrhea of right ear Administer 5 drops into the right ear in the morning and 5 drops before bedtime. 10 mL 02/17/2023 Active omeprazole 40 mg delayed release oral capsule (20 sources) Proton Pump Inhibitor Start: 03-19-2022 take 1 capsule by mouth in the morning omeprazole (PriLOSEC) [address] capsule Take 40 mg by mouth in the morning. 03/19/2022 Active Start: 03-19-2022 Omeprazole 40 MG Oral Capsule Delayed Release Quantity: 90 Refills: 0 Ordered: 19-Mar-2022 DO Start : 19-Mar-2022 Active Oxygen (10 sources) oxygen Inhale continuously. Active predniSONE 20 mg oral tablet (10 sources) take 1 tablet by mouth once daily predniSONE (Deltasone) 20 MG tablet Take 20 mg by mouth Daily Active pregabalin 150 mg oral capsule (13 sources) Start: End: 025 take 1 capsule by mouth in the [...] capsule (150 mg) before bedtime. 270 capsule 12/20/2024 Active roflumilast 0.5 mg oral tablet (20 sources) Phosphodiesterase 4 Inhibitor Start: 022 take 1 tablet by mouth in the morning Daliresp 500 MCG tablet Take 500 mcg by mouth in the morning. 03/15/2022 Active saw palmetto (Serenoa repens) 450 MG capsule (10 sources) saw palmetto (Serenoa repens) 450 MG capsule as directed Orally Active soybean lecithin 1200 mg oral capsule (10 sources) take 1 capsule by mouth once daily Lecithin 1200 MG capsule Take 1 capsule every day by oral route. Active SUMAtriptan 100 mg oral tablet (10 sources) Serotonin-1b and Serotonin-1d Receptor Agonist SUMAtriptan (Imitrex) 100 MG tablet PLEASE SEE ATTACHED FOR DETAILED DIRECTIONS Active TESTOSTERONE, BULK, MISC (10 sources) TESTOSTERONE, BU LK, MISC by miscellaneous route. 100 mg 1 tablet daily Active theophylline 400 mg extended release oral tablet (20 sources) Methylxanthine Start: 023 take 1 tablet by mouth in the morning, then take 1 tablet by mouth every twenty-four hours at bedtime theophylline ER (Uniphyl) 400 MG 24 hr tablet Take 400 mg by mouth in the morning and 400 mg before bedtime. 01/16/2023 Active take 1 capsule by [facility] every twenty-four hours in the morning theophylline [...] zinc gluconate 50 mg oral ta blet (20 sources) zinc gluconate 5 0 MG tablet [...] Chronic Chronic obstructive pulmonary disease and bronchiectasis (20 sources) Chronic obstructive lung disease; Translations: [Chronic airway obstruction, not elsewhere classified] Onset: 8 Resolved: 3 Chronic Complication of device; implant or graft (20 sources) Arteriosclerosis of coronary artery bypass graft; Translations: [Atherosclerosis of coronary artery bypass graft(s) without angina pectoris] Onset: 2 02-13-2023 Chronic Congestive heart failure; nonhypertensive (4 sources) Acute combined systolic (congestive) and diastolic (congestive) heart failure; Translations: [Chronic systolic (congestive) heart failure] Onset: 4 Chronic Coronary atherosclerosis and other heart disease (8 sources) Coronary arteriosclerosis; Translations: [Coronary atherosclerosis of unspecified type of vessel, king salmon or graft] Onset: 4 Chronic Disorders of lipid metabolism (8 sources) Mixed hyperlipidemia; Translations: [Mixed hyperlipidemia] Onset: 4 06-24-2024 Chronic Essential hypertension (12 sources) Hypertensive disorder; Translations: [Unspecified essential hypertension] Onset: 4 06-24-2024 Chronic Headache, including migraine (15 sources) Headache; Translations: [Occipital headache] Onset: 8 Resolved: 3 06-27-2023 Episodic Melanomas of skin (4 sources) H/O Malignant melanoma; Translations: [Personal history of malignant melanoma of skin] Episodic Other aftercare (4 sources) Encounter for therapeutic drug level monitoring; Translations: [ENC THERAPEUTC DRUG LEVL MONITORING] Onset: 3 Episodic Other and ill-defined heart disease (1 source) Heart disease, unspecified; Translations: [Heart disease, unspecified] Onset: 4 Chronic Other and ill-defined heart disease (5 sources) Left ventricular cardiac dysfunction; Translations: [Heart [...] blood-forming organs] Episodic Other nervous system disorders (10 sources) Neuropathy; Translations: [Polyneuropathy, unspecified] Onset: 4 01-20-2024 Chronic Other nervous system disorders (1 source) Carpal tunnel syndrome of left wrist; Translations: [Carpal tunnel syndrome, left upper limb] 06-08-2024 Chronic Other nervous system disorders (4 sources) Tremor; Translations: [Tremor, unspecified] 06-09-2024 Episodic [...] Spondylosis; intervertebral disc disorders; other back problems (17 sources) Degeneration of lumbar intervertebral disc; Translations: [DDD (degenerative disc disease), lumbar] Onset: 4 01-20-2024 Chronic Spondylosis; intervertebral disc disorders; other back problems (20 sources) Cervicalgia; Translations: [Neck pain] Onset: 8 Resolved: 3 06-27-2023 Episodic Unclassified (1 source) Neck Pain / [id number]() Onset: 8 Unclassified (1 source) Stiffness / 343() Onset: 8 Unclassified (1 source) Back Pain / 12() Onset: 8 Unclassified (1 source) Upper Extremity Weakness / [id number]() Onset: 8 Unclassified (1 source) Abdominal aortic aneurysm, without rupture, unspecified; Translations: [Abdominal aortic aneurysm, without rupture, unspecified] Onset: 5 Unclassified (1 source) Aneurysm of the ascending aorta, without rupture; Translations: [Aneurysm of the ascending aorta, without rupture] Onset: 4 Unclassified (1 source) Obesity, class 2; Translations: [Obesity, class 2] Onset: 4 Past or Other Problems Problem Classification Problem Date Documented Da te Episodic/Chronic Cardiac dysrhythmias (10 sources) Sinus tachycardia; Translations: [Tachycardia, unspecified] Onset: 01-22-2018 Resolved: 06-27-2023 06-27-2023 Episodic Other aftercare (2 sources) 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; Translations: [half-way (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 of 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] Onset: 08-16-2024 Episodic Other gastrointestinal disorders (10 sources) Celiac disease; Translations: [Celiac disease] Onset: 03-04-2019 Resolved: 06-27-2023 06-27-2023 Chronic Other nervous system disorders (10 sources) Polyneuropathy; Translations: [Polyneuropathy, unspecified] Onset: 06-27-2023 Resolved: 06-27-2023 06-27-2023 Chronic Other nervous system disorders (10 sources) Paresthesia; Translations: [Paresthesia of skin] Onset: 01-20-2024 01-20-2024 Episodic Residual codes; unclassified (20 sources) History of maze procedure for atrial fibrillation; Translations: [Other specified postprocedural states] Onset: 05-20-2022 02-13-2023 Episodic Screening and history of mental health and substance abuse codes (1 source) Personal history of nicotine dependence; Translations: [PERSONAL HISTORY OF NICOTINE DEPEND] Onset: 04-29-2022 Episodic Unclassified (1 source) Abdominal aortic aneurysm, without rupture, unspecified; Translations: [Abdominal aortic aneurysm, without rupture, unspecified] Onset: 12-31-2024 Unclassified (1 source) Aneurysm of the ascending aorta, without rupture; Translations: [Aneurysm of the ascending aorta, without rupture] Onset: 08-16-2024 Unclassified (1 source) Obesity, class 2; Translations: [Obesity, class 2] Onset: 08-16-2024 Results Test Name Value Interpretation Reference Range Facility [facility] 02-09-2025 36 Regarding lab result s from 01/19/2025 and echo from 02/03/2025: MD [...] labs prior to apt in Apr-May 2025. Normal [facility] Orders Onlyon 02-04-2025 Orders Only [id number] Armando Tabor 1960 M Date Provider Department Center 02/04/2025 [id number], PATRICIA [place] Family History Problem Relation Age of Onset Coronary artery disease Mother Coronary artery disease Father Family Status - Relation Status Age at Mother Father Sister Alive Normal [facility] Office Visiton 12-31-2024 Follow-up visit [id number] Armando Tabor 1960 M Date Provider Department Center 12/31/2024 [id number] DIAZ Family History Problem Relation Age of Onset Coronary artery disease Mother Coronary artery disease Father Family Status - Relation Status Age at Mother Father Sister Alive Level of Service:[id number] ID OFFICE/OUTPATIENT ESTABLISHED MOD MDM 30 MIN Reason for Visit and Comments: Coronary Artery Disease [187] Hyperlipidemia [182] Hypertension [573993] Normal [facility] 36on 10-07-2024 36 Regarding echo and C [...] per Dr. Diaz. He verbalized understanding. Normal [facility] Office Visiton 08-16-2024 Follow-up visit [id number] Armando Tabor 1960 [facility] Provider Department Center 08/16/2024 [id number] DIAZ [facility] Family History Problem Relation Age of Onset Coronary artery disease Mother Coronary artery disease Father Family Status - Relation Status Age at Mother Father Level of Service:[id number] ID OFFICE/OUTPATIENT NEW MODERATE MDM 45 MINUTES Reason for Visit and Comments: Atrial Fibrillation [80] - Had EKG at last apt with [facility] in Jun 2024. Denies chest pain and bleeding on Eliquis. Coronary Artery Disease [187] - CABG and MAZE in 2016 Hypertension [052800] Hyperlipidemia [182] COPD [313] - Sees Dr. Oni Marrero [facility] POCT EKGOrdered By: Juana Hercules on 06-24-2024 What [facility] EMG 1 Extremeityon [facility] NVC 7-8 Nerveson 06-08-2024 [facility] THEOPHYLLINEon 12-30-2022 THEOPHYLLINE 18.0 ug/mL Normal 10.0-20.0 [facility] Comment on above: Performed By: #### T ADALID #### [facility] [address] [address] [address] Karen Lee THEOPHYLLINEon 12-17-2022 THEOPHYLLINE 8.3 ug/mL Critically low 10.0-20.0 [facility] Comment on above: Performed By: #### T ADALID #### [facility] [address] [address] [address] Karen Lee Blood Pressure Cuff Sizeon 0 05-29-2022 Fall risk assessment a) No falls within the last year [facility] Work Phone: Tobacco use status [facility] b) No [facility] Work Phone: [...] Activated Vitals Vital Signs Recorded: 29May2022 02:58PM Fsdfugppoqa04.2 F Heart Rate91 Sytpygcxrif35 Kdvtaujx742 Dkzentvxj47 Blood Pressure Cuff SizeLarge Height5 ft 7.32 in Nddctv588 lb 7 oz BMI Stcrttgquv47.15 kg/m2 BSA Calculated2.19 Tobacco Useb) No Falls Screening (Age 18+)a) No falls within the last year O2 Yjwzrbpsho16, Nasal Cannula Pain Scale7 Physical Exam The [...] May 29 2022 3:24PM EST (Author) Normal [facility] Referral Letteron 022 Referral Letter Mr. Tabor [...] May 29 2022 3:24PM EST (Author) Normal [facility] CT LUNG CANCER SCREENINGon 0 04-26-2022 CT [...] by: ALEYDA DYER Date: 2022-04-26 16:20 Normal [facility] HEMOGLOBINon 04-26-2022 Hemoglobin (Bld) [Mass/Vol] 13.6 g/dL Critically low 14.0-18.0 [facility] Comment on above: Performed By: #### H GB #### [facility] [address] [place] [address] Dr. 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 [facility] Progress Noteson 04-23-2018 Protein mass conc Encounter Department : [facility] THERAPYProgress Notes by Berlin Valle PTA at 04/23/2018 9:00 AMAuthor: Berlin Valle PTAService: (none)Author Type: Physical Therapy AssistantFiled: 04/23/2018 9:46 AMEncounter Date: 04/23/2018Status: SignedEditor: Berlin Valle PTA (Rail Transportation Operator)Physical Therapy Treatment NoteVisit Number: 5Encounter diagnosis:ICD-10-CM1.Cervical giaM54.22.Headache in back of [id number] Medical Diagnosis:SUBJECTIVE: Pt requests today being his [...] t-band- Scap retract x15- B UE ext r67Xckh tucks x15GTB rows 0a34Svtpcv- STM along c-spine paraspinals, UT, and levator [...] in rotation and SB without increase in pain.[employer] Goals: LTG to be met by 06/08/18 [...] Time: 10Total Treatment Time: 25 PT Treatment [facility] Progress Noteson 04-21-2018 Protein mass conc Encounter Department : [facility] THERAPYProgress Notes by Berlin Valle PTA at 04/21/2018 9:00 AMAuthor: Berlin Valle PTAService: (none)Author Type: Physical Therapy AssistantFiled: 04/21/2018 9:46 AMEncounter Date: 04/21/2018Status: SignedEditor: Berlin Valle PTA (Rail Transportation Operator)Physical Therapy Treatment NoteVisit Number: 4Encounter diagnosis:ICD-10-CM1.Cervical giaM54.22.Headache in back of [id number] Medical Diagnosis: CervicalgiaSUBJECTIVE:Complia nce with HEP: Pt [...] t-band- Scap retract x15- B UE ext d72Apwx tucks x15GTB rows 5c18Gnucyi- STM along c-spine paraspinals, UT, and levator [...] in rotation and SB without increase in pain.[employer] Goals: LTG to be met by 06/08/18 [...] Time: 17Total Treatment Time: 32 PT Treatment [facility] Progress Noteson 04-16-2018 Protein mass conc [facility]YProgress Notes by Collette Villanueva PTA at 04/16/2018 9:00 AMAuthor: Collette Villanueva PTAService: (none)Author Type: Physical Therapy AssistantFiled: 04/16/2018 12:11 PMEncounter Date: 04/16/2018Status: SignedEditor: Collette Villanueva PTA (Rail Transportation Operator)Physical Therapy Treatment NoteVisit Number: 3Encounter diagnosis:ICD-10-CM1.Cervical giaM54.22.Headache in back of [id number] Medical Diagnosis: CervicalgiaSUBJECTIVE:Complia nce with HEP: Patient [...] pain/symptomreduction.Tractio n - Cervical traction performed at /# for pain/symptom reduction.Onset Date: 2 weeks agoSurgical [...] t-band- Scap retract x15- B UE ext p89Lbct tucks x15GTB rows 5z25Widtsi- STM along c-spine paraspinals, UT, and levator [...] in rotation and SB without increase in pain.[facility] Goals: LTG to be met by 06/08/18 [...] Time: 28Total Treatment Time: [address] [facility] Progress Noteson 04-10-2018 Protein mass conc [facility]YProgress Notes by Berlin Valle PTA at 04/10/2018 9:00 AMAuthor: Berlin Valle PTAService: (none)Author Type: Physical Therapy AssistantFiled: 04/10/2018 10:21 AMEncounter Date: 04/10/2018Status: SignedEditor: Berlin Valle PTA (Rail Transportation Operator)Physical Therapy Treatment NoteVisit Number: 2Encounter diagnosis:ICD-10-CM1.Cervical giaM54.22.Headache in back of [id number] Medical Diagnosis: CervicalgiaSUBJECTIVE:Complia nce with HEP: Pt [...] UT stretch 3x 30'Chin tucks x15GTB rows 1k24PPX: chin tuck, UT and LS stretch, scap [...] in rotation and SB without increase in pain.[employer] Goals: LTG to be met by 06/08/18 [...] Time: 30Total Treatment Time: 45 PT Treatment [facility] Progress Noteson 04-08-2018 Protein mass conc [facility]counter [facility] THERAPYProgress Notes by Jacquelyn Rivera PT at 04/08/2018 1:45 PMAuthor: Jacquelyn Rivera, PTService: (none)Author Type: Physical TherapistFiled: 04/08/2018 6:47 PMEncounter Date: 04/08/2018Status: SignedEditor: Jacquelyn Rivera PT (Physical Therapist)Physical Therapy EvaluationEncounter diagnosis:ICD-10-CM1.Cervical giaM54.22.Headache in back of haiwN61Gzsxubxaj provider: Mellisa Clarke,*Primary Medical Diagnosis: CervicalgiaPlan of [...] Home: 15Prior Level of Functioning: Level of [place]: [facility] Functioning: Outcome Score: NDI (26 raw score NDI, 52% disability) Functional deficits: reports no functional deficits, able to do everything just withincreased pain. Level of [place]: Modified IndependentSleep Status/Sleep Hygiene: Preferred Sleep Position: [...] codes)[id number] Mobility Current Status; Severity: CK 40-59% [id number] Mobility Goal Status; Severity: CI 1-19% impairedOutcome measure(s)/Test(s) used/Result(s): 52% disability on NDI.Clinical Judgment: Moderate to severe impairement, decreased neck ROM and strength, tenderness totrigger points moderateNew Category to Jqpwjk-Ar-Iynt only?:NoEvaluation Breakdown DescriptionPatient HistoryComorbiditiesEnvironme ntal/Personal factorsLearning/CognitionDome stic [...] in rotation and SB without increase in pain.[employer] Goals: LTG to be met by 06/08/18 [...] Time: 60Time in: 1:44Time Out: 2:[address] [facility] Vital Signs Date Time Vital Sign Value Performing Clinician Facility 12-27-2024 10:42-0400 Body height 177.8 cm Linsey LI Work Phone: [facility] 12-27-2024 10:42-0400 Body mass index (BMI) [Ratio] 35.87 kg/m2 Linsey LI Work Phone: [facility] 12-27-2024 10:42-0400 Body weight 113.4 kg Linsey LI Work Phone: [facility] 12-27-2024 10:42-0400 Diastolic blood pressure 82 mm[Hg] Linsey LI Work Phone: [facility] 12-27-2024 10:42-0400 Heart rate 75 /min Linsey LI Work Phone: [facility] 12-27-2024 10:42-0400 Respiratory rate 16 /min Linsey LI Work Phone: [facility] 12-27-2024 10:42-0400 SaO2% (BldA) [Mass fraction] 94 % Linsey LI Work Phone: [facility] 12-27-2024 10:42-0400 Systolic blood pressure 142 mm[Hg] Linsey LI Work Phone: [facility] 06-24-2024 13:52-0400 Body height 172.7 cm Gillian Taylor MD Work Phone: [facility] [employer] [facility] 06-24-2024 13:52-0400 Body mass index (BMI) [Ratio] 37.26 kg/m2 Gillian Taylor MD Work Phone: [facility] 06-24-2024 13:52-0400 Body weight 111.13 kg Gillian Taylor MD Work Phone: [facility] 06-24-2024 13:52-0400 Diastolic blood pressure 62 mm[Hg] Gillian Taylor MD Work Phone: [facility] 06-24-2024 13:52-0400 Heart rate 74 /min Gillian Taylor MD Work Phone: [facility] 06-24-2024 13:52-0400 SaO2% (BldA) [Mass fraction] 94 % Gillian Taylor MD Work Phone: [facility] 06-24-2024 13:52-0400 Systolic blood pressure 122 mm[Hg] Gillian Taylor MD Work Phone: [facility] 06-09-2024 11:17-0400 Body height 172.7 cm Linsey Hall PA Work Phone: [facility] 06-09-2024 11:17-0400 Body mass index (BMI) [Ratio] 38.01 kg/m2 Linsey Hall PA Work Phone: [facility] 06-09-2024 11:17-0400 Body weight 113.4 kg Linsey Hall PA Work Phone: [facility] 06-09-2024 11:17-0400 Diastolic blood pressure 84 mm[Hg] Linsey Hall PA Work Phone: [facility] 06-09-2024 11:17-0400 Heart rate 78 /min Linsey Hall PA Work Phone: [facility] 06-09-2024 11:17-0400 Respiratory rate 16 /min Linsey Hall PA Work Phone: [facility] 06-09-2024 11:17-0400 SaO2% (BldA) [Mass fraction] 93 % Linsey LI Work Phone: [facility] 06-09-2024 11:17-0400 Systolic blood pressure 132 mm[Hg] Linsey LI Work Phone: [facility] 05-29-2022 14:58-0400 Body height 170.99 cm Referring [...] Provider Unknown [facility] Work Phone: 05-29-2022 [phone] Referring Provider Unknown [facility] Work Phone: Comment on above: [employer] Encounters Encounter Date Encounter Type Care Provider Facility Start: 12-31-2024 End: 12-31-2024 ambulatory [facility] Start: 12-27-2024 End: 12-27-2024 Bamboo flowsheet Barbara LI Work Phone: [facility] Start: 12-27-2024 End: 12-27-2024 Bamboo NextPotentialheet Barbara LI Work Phone: [facility] Start: 12-27-2024 End: 12-27-2024 Office outpatient visit 15 minutes Linsey LI Work Phone: [facility] Comment on above: 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 with discogenic back pain and lower extremity pain (Primary Dx); Lumbosacral radiculopathy; Neck pain; Tremor; Chronic daily headache Start: 12-27-2024 End: 12-27-2024 ambulatory LINSEY HALL Not Available Start: 12-20-2024 End: 12-20-2024 Refill Leanne SANTIAGO Comment on above: DDD (degenerative di sc disease), lumbar (Primary Dx); Lumbosacral radiculopathy Start: 11-25-2024 End: 11-25-2024 Telephone encounter Arti Mauro RN [facility] Comment on above: transfering care Start: 11-09-2024 End: 11-12-2024 Refill Keron Arreguin PA-C Work Phone: [facility] Comment on above: Med Refill Start: 09-07-2024 End: 09-09-2024 Refill Linsey LI Work Phone: [facility] [address] Comment on above: DDD (degenerative di sc disease), lumbar; Lumbosacral radiculopathy Start: 08-16-2024 End: 08-16-2024 ambulatory [facility] Start: 07-29-2024 End: 08-03-2024 Refill Pablo Zaragoza DIGITAL MARKETING MANAGER-PUBLISHING AGENT Work Phone: [facility] Comment on above: Med Refill Start: 06-24-2024 End: 06-24-2024 Office outpatient visit 25 minutes [facility]ian Taylor MD [facility] Comment on above: Coronary artery dise ase involving coronary bypass graft of king salmon heart without angina pectoris (Primary Dx); Paroxysmal atrial fibrillation ([facility]); Primary hypertension; Mixed hyperlipidemia; Left ventricular dysfunction Start: 06-24-2024 End: 06-24-2024 ambulatory GILLIAN TAYLOR [facility] Start: 06-23-2024 End: 06-23-2024 Telephone encounter Juana Hercules CMA [facility] Start: 06-09-2024 End: 06-09-2024 Office outpatient visit 15 minutes Linsey LI Work Phone: [employer] [address] Comment on above: 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 with discogenic back pain and lower extremity pain (Primary Dx); Neck pain; Chronic daily headache; Tremor Start: 06-09-2024 End: 06-09-2024 ambulatory [facility] Not Available Start: 06-08-2024 End: 06-08-2024 Bamboo flowsheet Aleyda Fisher MD Work Phone: [facility] [address] [address] Start: 06-08-2024 End: 06-08-2024 Bamboo flowsheet Aleyda Fisher MD Work Phone: [facility] [place] [address] Start: 06-08-2024 End: 06-08-2024 Patient encounter procedure Aleyda Fisher MD Work Phone: [facility] [address] Comment on above: Carpal tunnel syndro me of left wrist (Primary Dx) Start: 06-08-2024 End: 06-08-2024 ambulatory ALEYDA FISHER Not Available Start: 05-21-2024 End: 05-21-2024 Ref[facility] Comment on above: Med Refill Start: 05-17-2024 End: 05-17-2024 ambulatory EMELY CANTU [facility] Comment on above: DDD (degenerative di sc disease), lumbar; Lumbosacral radiculopathy Start: 05-14-2024 End: 05-14-2024 Telephone encounter Juana Hercules CMA [facility] Start: 04-30-2024 End: 04-30-2024 Telephone encounter Ashlee Lim RN [facility] Start: 03-15-2024 End: 03-15-2024 ambulatory [facility] Not Available Start: 02-18-2024 End: 02-19-2024 Refill [facility] Comment on above: Med Refill Start: 01-24-2024 End: 01-28-2024 Refill Elise Borjas MD Work Phone: [facility] Comment on above: Med Refill Start: 01-21-2024 End: 01-21-2024 ambulatory LINSE[facility] Not Available Start: 12-30-2022 End: 12-31-2022 ambulatory DARNELL ALICEA . Facility: Start: 12-17-2022 End: 12-18-2022 ambulatory DARNELL ALICEA . Facility: Start: 06-17-2022 AUDIT Referring Prov ider Unknown [facility] Work Phone: Start: 05-29-2022 Office outpatient ne w 45 minutes Referring Provider Unknown [facility] Work Phone: Start: 05-29-[address] Popeye Peña [facility] Start: 05-21-2022 End: 08-14-2022 ambulatory [facility] Facility: Start: 04-26-2022 End: 04-27-2022 ambulatory [facility] Facility: Start: 04-23-2018 End: 04-23-2018 Patient encounter BERLIN Demarco [facility] Start: 04-21-2018 End: 04-21-2018 Patient encounter [place] Demarco [facility] Start: 04-16-2018 End: 04-16-2018 Patient encounter COLLETTE VILLANUEVA [facility] Start: 04-10-2018 End: 04-10-2018 Patient encounter [place] Demarco [facility] Start: 04-08-2018 End: 04-08-2018 Patient encounter [address]ISA CLARKE [facility] Patient encounter status Referri ng Provider [...] bypass grafting Hx of CABG Pablo Zaragoza DIGITAL MARKETING MANAGER-PUBLISHING AGENT Work Phone: History of coronary artery bypass grafting Hx of CABG Keron Arreguin PA-C Work Phone: Prosthetic arthropla sty of shoulder Referring Provider Unknown Total replacement of hip Ref erring Provider Unknown Plan of Treatment Date Care Activity Detail Author Start: 08-13-2033 DTaP,Tdap and Td Vaccines (2 - Td or Tdap) DTaP,Tdap and Td Vaccines (2 - Td or T[facility]ap) [facility] Start: 06-24-2025 Adult BMI Screening [facility] Screen ing [facility] Start: 06-24-2025 Tobacco Screening Tobacco Screening [facility] Start: 05-16-2025 End: 05-16-2025 Patient encounter procedure 05/16/2025 10:40 AM EDT Office Visit [facility] [address] [place] [address] Linsey Hall PA [address] [place] [address] [facility] Start: 05-09-2025 Influenza vaccination Influenz a Vaccine (Season Ended) [facility] Start: 12-23-2024 End: 12-23-2024 Patient encounter procedure 12/23/2024 10:40 AM EDT Office Visit [facility] [address] [place] [address] Linsey Hall PA [address] [place] [address] [facility] Start: 12-21-2024 End: 12-21-2024 Patient encounter procedure 12/21/2024 10:40 AM EDT Office Visit [facility] [address] [place] [address] Linsey Hall PA [address] [place] [address] [facility] [address] Start: 07-29-2024 Adult BMI Screening Adult BMI Screen ing [facility] Start: 07-29-2024 Tobacco Screening Tobacco Screening [facility] Start: 06-24-2024 End: 06-24-2025 CT Chest WO and CT angiogram Coronary arteries W contrast IV CT angiogram chest Imaging Routine Coronary artery disease involving coronary bypass graft of king salmon heart without angina pectoris Expected: 06/24/2024, Expires: 06/24/2025 [facility] Comment on above: Expected: 06/24/2024 , Expires: 06/24/2025 Start: 06-24-2024 End: 06-24-2025 Echo complete W/O contrast Echo complete W/O contrast Echocardiography Routine Coronary artery disease involving coronary bypass graft of king salmon heart without angina pectoris Expected: 06/24/2024, Expires: 06/24/2025 [facility] Comment on above: Expected: 06/24/2024 , Expires: 06/24/2025 Start: 06-24-2024 End: 06-24-2024 Patient encounter procedure 06/24/2024 2:00 PM EDT Office Visit [facility] [address] [place] [address] Gillian Taylor MD [address] [place] [address] [facility] Start: 06-09-2024 End: 06-09-2024 Patient encounter procedure 06/09/2024 11:20 AM EDT [facility] [address] [place] [address] Linsey Hall PA [address] [place] [address] [facility] Start: 06-08-2024 End: 06-08-2024 Patient encounter procedure [facility] Comment on above: Arrived Start: 05-17-2024 End: 05-17-2024 Professional / ancillary services management 05/17/2024 8:30 AM EDT Ancillary Procedure [facility] [address] [place] [id number] Emely Cantu MD [address] [place] [address] [facility] Start: 05-09-2024 Influenza vaccination [facility] Start: 2010 Administration of varicella zoster vaccine Zoster (Shingles) Vaccine (1 of 2) [facility] Start: 1979 DTaP,Tdap and Td Vaccines (1 - Tdap) DTaP,Tdap and Td Vaccines (1 - Tdap) [facility] Start: 1978 Adult BMI Follow Up Plan Adult BMI F ollow Up Plan [facility] Start: 1972 Depression Screening Depression Scre ening [facility] Start: 1960 Screening for malign ant neoplasm of colon [facility] End: 06-24-2025 CBC panel - Blood by Automated count CBC Lab Routine Paroxysmal atrial fibrillation (CMS-HCC) 1 Occurrences starting 06/24/2024 until 06/24/2025 [facility] Comment on above: 1 Occurrences starti ng 06/24/2024 until 06/24/2025 End: 06-24-2025 Comprehensive metabolic 2000 panel - Serum or Plasma CMP Lab Routine Primary hypertension 1 Occurrences starting 06/24/2024 until 06/24/2025 [facility] Comment on above: 1 Occurrences starti ng 06/24/2024 until 06/24/2025 End: 06-24-2025 Lipid panel Lipid panel Lab Routine Mixed hyperlipidemia 1 Occurrences starting 06/24/2024 until 06/24/2025 [facility] Work Phone: Comment on above: 1 Occurrences starti ng 06/24/2024 until 06/24/2025 Immunizations Immunization Date Immunization Notes Care Provider Fa [facility] 08-13-2023 influenza virus vaccine, unspecified formulation Yuri Chapa MA [facility] 05-23-2021 influenza, high dose seasonal, preservative-free Yuri Chapa MA [facility] 05-23-2021 influenza virus vaccine, unspecified formulation Elise Borjas MD Work Phone: [facility] 10-25-2020 Pfizer Purple Cap SARS-CoV-2 Vaccination Yuri Chapa MA [facility] 09-20-2020 Pfizer Purple Cap SARS-CoV-2 Vaccination Yuri Chapa MA [facility] Payers Date Payer Category Payer Medicare (Managed Care) [employer] M EDICARE ADVANTAGE [id number] 2019 Medicare [id number] 2019 Medicare HMO HU[employer]NA MEDICARE [id number] 1960 Unknown [id number] [id number]. 2.356 1960 Unknown [id number] 2.16.840.1.399883.3.579. 2.593 1960 Unknown [id number] 2.16.840.1.857247.3.579. 2.593 1960 Unknown [id number] 2.16.840.1.355464.3.579. 2.593 1960 Unknown [id number] 2.16.840.1.579909.3.579. 2.593 1960 Unknown [id number] 2.16.840.1.488112.3.579. 2.1286 1960 Unknown [id number] 2.16.840.1.381302.3.579. 2.1286 1960 Unknown [id number] 2.16.840.1.230110.3.579. 2.1259 1960 Unknown [id number] 2.16.840.1.171813.3.579. 2.1259 1960 Unknown [id number] 2.16.840.1.589322.3.579. 2.1259 1960 Unknown [id number] [id number]. 2.1259 1960 Unknown [id number] [id number]. 2.1259 1959 Medicare [id number] Unknown Social History Date Type Detail Facility Start: 03-15-2024 End: 12-27-2024 Social alcohol use Social alcohol use [facility] Start: 05-20-2022 End: 03-15-2024 Tobacco smoking status [place] Ex-smoker [facility] Start: 09-08-1974 End: 09-08-2009 History of tobacco use Current smoker [facility] Start: 09-08-1974 End: 09-08-2009 History of tobacco use Cigarette Smoker [facility] Start: 05-20-2022 End: 03-15-2024 Tobacco use and exposure Smokeless tobacco non-user [facility] Start: 03-15-2024 End: 12-27-2024 Alcoholic beverage intake Lifetime non-drinker (finding) [facility] Start: 03-15-2024 End: 12-27-2024 Tobacco use panel [facility] Start: 02-13-2023 Alcohol Comment ocassionally [facility] Start: 1960 Sex assigned at Male [facility] Start: 02-21-2023 Gender identity Identifies as male gender (finding) [facility] Start: 07-29-2023 End: 06-24-2024 Alcoholic beverage intake Ex-drinker (finding) [facility] Within the past 12 months we worried whether our food would run out before we got money to buy more. Never True [facility] Start: 05-20-2022 Alcohol Comment ocassional [facility] Start: 1960 Sex assigned at Not on file [facility] Start: 03-22-2022 Sex Male (finding) [facility] Clinical Notes 04-30-2024 to 12-31-2024 GUILLERMO Abdul - 12/27/2024 10:20 AM EDTTelephone Encounter - Leanne Mancia MA - 12/20/2024 4:44 PM EDTTelephone Encounter - Leanne Mancia MA - 12/20/2024 4:44 PM EDTPatient Instructions Note Date & Type Note Facility 12-31-2024 Note [place] [facility] Note Reason for cardiology visit: Follow-up HPI: 12/31/2024 Patient is here today for follow-up visit. He has chronic exertional dyspnea due to COPD and he is on oxygen at 3 L/min. He admits occasional palpitations,he feels that his heart rate is going up during exertion however no other symptoms such as dizziness or chest pain. He denies any chest pain at rest or with exertion. Denies orthopnea or paroxysmal nocturnal dyspnea or legs edema or legs discomfort on exertion He was diagnosed recently with significant sleep apnea and currently he is on BiPAP during the night 08/16/2024 Elise Tabor is a 64 y.o. male with history of coronary artery disease and coronary artery bypass surgery and maze procedure, paroxysmal atrial fibrillation, s/p ablation in [place], thoracic aortic aneurysm, left ventricle dysfunction, hypertension, hyperlipidemia COPD, prior tobacco and alcohol abuse He used to follow with [facility] cardiology. He states that overall he [...] in the far past. He smokes marijuana occasionall ROS: All systems were reviewed and they were negative except for the positive findings noted above in the history Past Medical History He has a past medical history of Abnormal ECG, Aneurysm, Arrhythmia, Atrial fibrillation (CMS/HCC), Cardiomyopathy (CMS/HCC), COPD (chronic obstructive pulmonary disease) (CMS/HCC), Coronary artery disease, Hyperlipidemia, and Hypertension. Surgical History He has a past surgical history that includes Ablation of dysrhythmic focus; Cardiac catheterization; and Coronary artery bypass graft. Social History He reports that he has quit smoking. His smoking use included cigarettes. He has never used smokeless tobacco. He reports that he does not use drugs. No history on file for alcohol use. Family History Family History Problem Relation Name Age of Onset Coronary artery disease Mother Coronary artery disease Father Allergies Patient has no known allergies. Medications Current Outpatient Medications: albuterol (Ventolin HFA) 90 mcg/actuation inhaler, every 4 (four) hours., Disp: , Rfl: apixaban (Eliquis) 5 mg tablet, Take 1 tablet (5 mg) by mouth two times daily., Disp: 180 tablet, Rfl: 3 aspirin 81 mg chewable tablet, Chew 81 mg in the morning., Disp: , Rfl: atorvastatin (Lipitor) 80 mg tablet, Take 1 tablet (80 mg) by mouth in the morning., Disp: 90 tablet, Rfl: 3 azithromycin (Zithromax) 250 mg tablet, Take 250 mg by mouth in the morning., Disp: , Rfl: cholecalciferol, vitamin D3, 50 mcg (2,000 unit) capsule, 1 capsule., Disp: , Rfl: dapagliflozin propanediol (Farxiga) 10 mg, Take 1 tablet (10 mg) by mouth once daily as directed., Disp: 30 tablet, Rfl: 11 ipratropium-albuteroL (Duo-Neb) 0.5-2.5 mg/3 mL nebulizer solution, INHALE 1 vial via NEBULIZER FOUR TIMES DAILY NEEDED, Disp: , Rfl: lisinopril 5 mg tablet, Take 5 mg by mouth in the morning., Disp: , Rfl: meloxicam (Mobic) 15 mg tablet, Take 15 mg by mouth in the morning., Disp: , Rfl: metoprolol succinate XL (Toprol-XL) 50 mg 24 hr tablet, Taking 100mg in the AM, 50mg in the PM, Disp: 270 tablet, Rfl: 3 nitroglycerin (Nitrostat) 0.4 mg SL tablet, DISSOLVE [...] mouth in the morning., Disp: , Rfl: spironolactone (Aldactone) 25 mg tablet, Take 1 tablet (25 mg) by mouth in the morning., Disp: 90 tablet, Rfl: 3 theophylline ER (Uniphyl) 400 mg 24 hr tablet, Take 400 mg by mouth in the morning., Disp: , Rfl: Trelegy Ellipta 200-62.5-25 mcg blister with device, Inhale 1 puff in the morning., Disp: , Rfl: zinc gluconate 50 mg tablet, 1 (one) time each day at the same time., Disp: , Rfl: Last Recorded Vitals Visit Vitals BP 117/80 (BP Location: Left arm, Patient Position: Sitting) Pulse 74 Ht 1.753 m (5' 9 ) Wt 113 kg (250 lb) SpO2 93% BMI 36.92 kg/m??? Smoking Status Former BSA 2.35 m??? Physical Examination: GENERAL: alert and oriented x3, well developed, in no (more content not included)... [facility] 12-27-2024 History of Present illness Narrative Subjective Elise Tabor is a 64 y.o. year old male Chief Complaint Patient presents with Back Pain Past Medical History: Diagnosis Date Anemia Atrial fibrillation ([facility]) Celiac disease (CMS/HCC) 03/04/2019 Cervicalgia 04/08/2018 Chronic [...] date: 09/08/1974 Quit date: 09/08/2009 Years since quittin.3 Smokeless tobacco: Never Substance Use Topics Alcohol use: Never Comment: ocassionally HPI Lumbosacral radiculopathy -on Lyrica -pain 03/17 today -back pain is constant -pain located neck and radiates down whole spine -reports some intermittent numbness and tingling in BLE -reports some weakness in left shoulder and arm -balance is good -denies any recent falls Neck pain -on Lyrica -located in center of neck, straight down spine -pain is constant -neck continues to lock up -ROM is ok but sounds like popcorn -started a Bi Pap and no longer waking with a headache TREMOR -tremor is about the same, denies any worsening -located in right hand -notices with both rest and activity -symptoms are intermittent -denies any hand weakness or gripping trouble ROS Review of Systems Constitutional: Negative for activity change, appetite change and fatigue. Respiratory: Negative. Cardiovascular: Negative. Musculoskeletal: Positive for back pain, neck pain and neck stiffness. Neurological: Positive for tremors. Negative for dizziness, seizures, syncope, weakness, numbness and headaches. Objective Visit Vitals BP 142/82 Pulse 75 Resp 16 Ht 5' 10 Wt 250 lb SpO2 94% BMI 35.87 kg/m Smoking Status Former BSA 2.36 m Neurological Exam Mental Status Awake, alert [...] triceps, wrist extensors, wrist extensors, wrist flexor, soda maker strength 5/5. LUE Strength deltoid, biceps, triceps, wrist extensors, wrist extensors, wrist flexor, soda maker strength 5/5. RLE Strength illopsoas, quadriceps, tibialis [...] lumbar Lumbosacral radiculopathy The patient is a 64 year old male that presents with low [...] has had lessening in symptoms with Lyrica. Overall, patient is at his typical baseline. Neck pain Patient has chronic musculoskeletal neck pain for past 25 years contributing to chronic daily headaches. He does have decreased ROM and proximal LUE weakness. He has multilevel degenerative changes that contribute to his symptoms. Neck pain continues to wax and wane. Chronic daily headache Chronic daily headaches worsened by underlying neck pain. Patient states he has been evaluated for ISABEL and is now on Bipap. Headaches have improved. Tremor Patient has been experiencing a tremor [...] revealed TSH within normal range at 0.454. Denies worsening tremor. LUE EMG 06/08/2024: a median neuropathy at [...] 150mg PO TID for neuropathic pain OARRS followed at the time of refills I counseled the patient on potential medication side effects. Patient to follow up with this clinic in 4-6 months or sooner for new or worsening symptoms documented in this encounter [facility] 12-20-2024 Telephone encounter Note Patient is in need of refill, appt had to be rescheduled due to provider being out. Please send to [facility] in [place] [facility] 12-20-2024 Miscellaneous Notes Patient is in need of refill, appt had to be rescheduled due to provider being out. 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 Explained to him that we do try to keep pt's with same doc but it does not always work out that way. Pt understood but has already seen the the other group. 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 Explained to him that we do try to keep pt's with same doc but it does not always work out that way. Pt understood but has already seen the the other group. [facility] 09-09-2024 Telephone encounter Note 06/09/2024 Continue Lyrica 150mg PO TID for neuropathic pain Oarrs reviewed. Last filled 05/17/2024 for 90 day supply. Due 08/15/2024 [facility] 09-09-2024 Miscellaneous Notes 06/09/2024 Continue Lyrica 150mg PO TID for neuropathic pain [facility] reviewed. Last filled 05/17/2024 for 90 day supply. 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 male with history of coronary artery disease and coronary artery bypass surgery and maze procedure, paroxysmal atrial fibrillation, s/p ablation in [place], thoracic aortic aneurysm, left ventricle dysfunction, hypertension, hyperlipidemia COPD, prior tobacco and alcohol abuse He used to follow with [facility] cardiology. He states that overall he [...] or gallops. RESPIR (more content not included)... [facility] 07-29-2024 Miscellaneous Notes [facility] 06/24/24 [facility]24 Telephone encounter Note [facility] 06[facility]24[facility]24 [facility] 06-24-2024 History of Present illness Narrative Elise Tabor Date of visit: 06/24/2024 Date of : 1960 Age: 64 y.o. Patient Active Problem List Diagnosis Coronary artery disease involving coronary bypass graft of king salmon heart without angina pectoris Paroxysmal atrial fibrillation [...] 65 mg by mouth daily with breakfast. evxbpfeaqpn-nzthujfhk-btqeeowa (TRELEGY ELLIPTA) 200-62.5-25 mcg blister with device [...] History: Diagnosis Date Arthritis Ascending aortic aneurysm ([facility]) Atrial fibrillation ([facility]) Celiac disease COPD (chronic obstructive pulmonary disease) ([facility]) Coronary artery disease with history of [...] artery disease involving coronary bypass graft of king salmon heart without angina pectoris - POCT EKG [...] in about 1 year (around 06/24/2025). PCP: RISA MCNULTY APRN-CHAO Referring Physician: Kacie Del Real MD [address] [place] [address] documented in this encounter [facility] 06-24-2024 Instructions Gillian Taylor MD - 06/24/2024 2:00 PM EDT Laboratory studies CTA of the aorta Echocardiogram documented in this encounter [facility] 06-23-2024 Miscellaneous Notes Called patient to remind them to bring their most current copy of their medication list with them to their appt. Patient verbalizes understanding. documented in this encounter [facility] 06-23-2024 Telephone encounter Note Called patient to remind them to bring their most current copy of their medication list with them to their appt. Patient verbalizes understanding. [facility] 06-09-2024 History of Present illness Narrative Subjective Elise Tabor is a 64 y.o. year old male Chief Complaint Patient presents with Back Pain Neck Pain Tremors Past Medical History: Diagnosis Date Anemia Atrial fibrillation (CMS/HCC) Celiac disease (CMS/HCC) 03/04/2019 Cervicalgia 04/08/2018 Chronic obstructive lung disease (CMS/HCC) 01/22/2018 Chronic obstructive pulmonary disease (COPD) ([facility]) Coronary artery disease ([facility]) Emphysema of lung ([facility]) H/O hernia repair Headache in back of head 04/08/2018 Peripheral polyneuropathy 06/27/2023 Pneumonia Rheumatoid arthritis ([facility]) Sinus tachycardia 01/22/2018 Past Surgical History: Procedure [...] handles -admits hand weakness -some trouble with soda maker ROS Review of Systems Constitutional: Negative for [...] triceps, wrist extensors, wrist extensors, wrist flexor, soda maker strength 5/5. LUE Strength deltoid, biceps, triceps, wrist extensors, wrist extensors, wrist flexor, soda maker strength 5/5. RLE Strength illopsoas, quadriceps, tibialis [...] worsening symptoms documented in this encounter [facility] 06-08-2024 History of Present illness Narrative Images from the original note were not included. Reason for Appointment: EMG Patient: Elise Tabor : 1960 EMG Computer: [employer] Referring Physician: Roland Bill PA-C EMG: WATLER test engine evaluator: Vera Zuñiga CMA Office Location: [place] Reason for EMG: c/o pain and paresthesia in the arm from the shoulder down. No Hx of DM, takes Eliquis and ASA Comments: Procedure explained to the patient who expressed understanding. documented in this encounter [facility] 05-14-2024 Miscellaneous Notes Phoned pt to advise that appt scheduled for 05/17/2024 is the date that his EM will be sent out and is NOT an actual appt. Verbalized understanding. documented in this encounter [facility] 05-14-2024 Telephone encounter Note Phoned pt to advise that appt scheduled for 05/17/2024 is the date that his EM will be sent out and is NOT an actual appt. Verbalized understanding. [facility] 04-30-2024 Miscellaneous Notes [employer], Patient called and said that he has not been in a-fib since 2018 HX Coronary artery disease s/p CABG x 1 ([facility]) 2016 in [place] Paroxysmal atrial fibrillation (diagnosed in 1998); Maze at time of open heart surgery Thoracic aortic aneurysm, 47 mm 05/2022 Hypertension Frequent PVCs, 6% burden on most recent monitoring 06/2023 History of NSVT Chronic hypoxic respiratory failure COPD Patient said that Eliquis is not affordable for him and would like to know if since he has not been in a-fib [facility] 2017, is there a chance he would be able to dc Eliquis at some point. Please advise. Thank you! 3 boxes of Eliquis in sample cabinet for patient picking supervisor. This is something we would need to [...] patient to call us back to review [employer]'s response. documented in this encounter [facility] 04-30-2024 Telephone encounter Note [employer], Patient called and said that he has not been in a-fib since 2018 HX Coronary artery disease s/p CABG x 1 ([facility]) 2016 in [place] Paroxysmal atrial fibrillation (diagnosed in 1998); Maze at time of open heart surgery Thoracic aortic aneurysm, 47 mm 05/2022 Hypertension Frequent PVCs, 6% burden on most recent monitoring 06/2023 History of NSVT Chronic hypoxic respiratory failure COPD Patient said that Eliquis is not affordable for him and would like to know if since he has not been in a-fib [facility] 2017, is there a chance he would be able to dc Eliquis at some point. Please advise. Thank you! 3 boxes of Eliquis in sample cabinet for patient picking supervisor. [facility] 04-30-2024 Telephone encounter Note This is something [...] continue Eliquis in the meantime. [facility] 04-30-2024 Telephone encounter Note Amml asking patient to call us back to review [employer]'s response. [facility] Evaluation note Diagnosis Carpal tunnel syndrome of left wrist- Primary documented in this encounter [facility] Healthcare[facility] note* Diagnosis Degeneration of intervertebral disc of lumbar region with discogenic back pain and lower extremity pain- Primary Neck pain Cervicalgia Chronic daily headache Headache Tremor Abnormal involuntary movements documented in this encounter [facility] note* Diagnosis DDD (degenerative disc disease), lumbar Degeneration of lumbar or lumbosacral intervertebral disc Lumbosacral radiculopathy Thoracic or lumbosacral neuritis or radiculitis, unspecified [facility]* Diagnosis DDD (degenerative disc disease), lumbar Degeneration of lumbar or lumbosacral intervertebral disc Lumbosacral radiculopathy Thoracic or lumbosacral neuritis or radiculitis, unspecified documented in this encounter [facility] HealthcareEvaluation note* Diagnosis Coronary artery disease involving coronary bypass graft of king salmon heart without angina pectoris Hx of CABG Postsurgical aortocoronary bypass status Paroxysmal atrial fibrillation (CMS-HCC) Atrial fibrillation Aneurysm of ascending aorta without rupture (CMS-HCC) History of maze procedure [facility] encounter [facility]* Diagnosis Coronary artery disease involving coronary bypass graft of king salmon heart without angina pectoris Hx of CABG Postsurgical aortocoronary bypass status Paroxysmal atrial fibrillation (CMS-HCC) Atrial fibrillation Aneurysm of ascending aorta without rupture (CMS-HCC) History of maze procedure [facility] Diagnosis Coronary artery disease involving coronary bypass graft of king salmon heart without angina pectoris Paroxysmal atrial fibrillation (CMS-HCC) Atrial fibrillation Aneurysm of ascending aorta without rupture (CMS-HCC) Hx of CABG 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 documented in this encounter [facility]* Diagnosis Coronary artery disease involving coronary bypass graft of king salmon heart without angina pectoris- Primary Paroxysmal atrial fibrillation (CMS-HCC) Atrial fibrillation Primary hypertension Unspecified essential hypertension Mixed hyperlipidemia Left ventricular dysfunction Left heart failure [facility] Diagnosis Coronary artery disease involving coronary bypass graft of king salmon heart without angina pectoris Paroxysmal atrial fibrillation (CMS-HCC) Atrial fibrillation Aneurysm of ascending aorta without rupture (CMS-HCC) Hx of CABG 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 [facility] Diagnosis Coronary artery disease involving coronary bypass graft of king salmon heart without angina pectoris Hx of CABG Postsurgical aortocoronary bypass status Paroxysmal atrial fibrillation (CMS-HCC) Atrial fibrillation Aneurysm of ascending aorta without rupture (CMS-HCC) History of maze procedure documented in this encounter [facility]* Diagnosis DDD (degenerative disc disease), lumbar- Primary Degeneration of lumbar or lumbosacral intervertebral disc Lumbosacral radiculopathy Thoracic or lumbosacral neuritis or radiculitis, unspecified documented [facility]* Diagnosis Degeneration of intervertebral disc of lumbar region with discogenic back pain and lower extremity pain- Primary Lumbosacral radiculopathy Thoracic or lumbosacral neuritis or radiculitis, unspecified Neck pain Cervicalgia Tremor Abnormal involuntary movements Chronic daily headache Headache documented in this encounter [facility] NarrativeMrLeyla Tabor is referred for consideration of LVRS. 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 He is on 3 L nasal cannula oxygen chronically. He is set to begin pulmonaryrehabilitation.[facility] Work Phone: History of Present illness NarrativeMrLeyla Tabor is referred for consideration of LVRS. 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 He is on 3 L nasal cannula oxygen chronically. He is set to begin pulmonaryrehabilitation.[facility] Work Phone: History of Present illness NarrativeMr. Tabor is referred for consideration of LVRS. 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 He is on 3 L nasal cannula oxygen chronically. He is set to begin pulmonaryrehabilitation.[facility] Work Phone: InstructionsNot on filedocumented in [...] [facility] Summary Purpose Family History No Family [...] Referral Specialty Diagnoses / Procedures Referred By Contsarah t Referred To Contact Diagnoses Carpal tunnel syndrome of left wrist Procedures NVC 7-8 Nerves Aleyda Fisher MD [address] [place] [address] Referral ID Status Reason Start Date Expiration Date V isits Requested Visits Authorized [id number] Pending Review 06/08/2024 12/05/2024 1 1 Additional Source Comments (unrecognized sect ion and content) No Status Records FoundNo Status Records FoundNo Status Records FoundNo Status Records FoundNo Status Records FoundNo Status Records FoundNo Status Records Found INFORMATION SOURCE (unrecogn ized section and content) DATE CREATED AUTHOR 07/04/2018 [facility] DATE CREATED AUTHOR AUTHOR'S ORGANIZ ATION 06/09/2022 [facility] DATE CREATED AUTHOR AUTHOR'S ORGANIZ ATION 06/09/2022 [employer] DATE CREATED AUTHOR AUTHOR'S ORGANIZ ATION 02/14/2023 [facility] DATE CREATED AUTHOR AUTHOR'S ORGANIZ ATION 07/06/2024 [facility] DATE CREATED AUTHOR AUTHOR'S ORGANIZ ATION 12/27/2024 [facility] EPIC DATE CREATED AUTHOR AUTHOR'S ORGANIZ ATION 02/10/[address] [facility] Care Teams (unrecognized sec tion and content) Marbleizing Machine Tender Relationship Specialty Start Date End Date Risa Mcnulty NP [address] [phone] Referring Physician Family Medicine 03/15/24 Marbleizing Machine Tender Relationship Specialty Start Date End Date Risa Mcnulty NP [address] [place] [address] Referring Physician Family Medicine 03/15/24 Marbleizing Machine Tender Relationship Specialty Start Date End Date Risa Mcnulty NP [address] [place] [address] Referring Physician Family Medicine 03/15/24 Marbleizing Machine Tender Relationship Specialty Start Date End Date Risa Mcnulty, SHEET METAL WORKER SUPERVISOR [address] [place] [address] Referring Physician Family Medicine 03/15/24 Marbleizing Machine Tender Relationship Specialty Start Date End Date Risa Mcnulty, SHEET METAL WORKER SUPERVISOR [address] [place] [address] Referring Physician Family Medicine 03/15/24 Marbleizing Machine Tender Relationship Specialty Start Date End Date Kacie Del Real MD [address] [place] [id number] PCP - General Family Medicine 03/22/22 Marbleizing Machine Tender Relationship Specialty Start Date End Date aKcie Del Real MD [address] [place] [id number] PCP - General Family Medicine 03/22/22 Marbleizing Machine Tender Relationship Specialty Start Date End Date Kacie Del Real MD [address] [place] [address] [phone] PCP - General Family Medicine 03/22/22 Marbleizing Machine Tender Relationship Specialty Start Date End Date Kacie Del Real MD [address] [place] [id number] PCP - General Family Medicine 03/22/22 Marbleizing Machine Tender Relationship Specialty Start Date End Date Kacie Del Real MD [address] [place] [address] 190[address] PCP - General Family Medicine 03/22/22 Marbleizing Machine Tender Relationship Specialty Start Date End Date Risa Mcnulty, DIGITAL MARKETING MANAGER-EDGE BLACKER [address] [place] [id number] PCP - General Family Medicine 06/24/24 Marbleizing Machine Tender Relationship Specialty Start Date End Date Risa Mcnulty, DIGITAL MARKETING MANAGER-EDGE BLACKER [address] [place] [address] PCP - General Family Medicine 06/24/24 Marbleizing Machine Tender Relationship Specialty Start Date End Date Risa Mcnulty DIGITAL MARKETING MANAGER-EDGE BLACKER [address] [place] [address] PCP - General [facility] Medicine 06/24/24 Marbleizing Machine Tender Relationship Specialty Start Date End Date Risa Mcnulty APRN-EDGE BLACKER [address] [place] [address] PCP - General [facility] Medicine 06/24/24 Marbleizing Machine Tender Relationship Specialty Start Date End Date Risa Mcnulty, SHEET METAL WORKER SUPERVISOR [address] [place] [id number] Referring Physician Family Medicine 03/15/24 Reason for Visit (unrecogniz ed section and content) Specialty Diagnoses / Procedures Referred By Tonya t Referred To Contact Neurology Diagnoses LUE EMG paresthesias of hand, numbness and tingling, ref by Wei Bill [id number] Procedures ID NERVE CONDUCTION STUDIES 9-10 STUDIES ID NEEDLE EMG EA EXTREMTY W/PARASPINL [place] [address] [place] [address] Aleyda Fisher MD [address] [place] [address] Referral ID Status Reason Start Date Expiration Date V isits Requested Visits Authorized [id number] Closed Perform Procedure 06/08/2024 12/05/2024 1 1 Reason Comments Back Pain Neck Pain Tremors Reason Comments Med Refill Reason Onset Date Comments Med Refill 02/18/2024 Reason Onset Date Comments Med Refill 05/21/2024 Reason Comments Follow-up EST PT FU EM RESULTS Reason Onset Date Comments transfering care 11/25/2024 Reason Onset Date Comments Med Refill 12/20/2024 Reason Comments Back Pain FOR RECORDS PERTAINING TO PATIENTS WHO ARE [...] BE BASED ON THE PRIMARY CLINICAL RECORDS. [employer] provides no warranty or guarantee of the accuracy or completeness of information in this document.
== END 2025-02-21 09:57 | disposition home or self-care (01) ==
LOC: MRI 09:56
PROVIDERS: PCP Family Medicine; Visit Provider Family Medicine
DX: G43.909 Migraine, unspecified, not intractable, without status migrainosus (principal)
CPT/HCPCS: 70551

== ENCOUNTER 2025-03-17 10:01 | Outpatient (OUT) | payer MEDICARE, SELFPAY ==
--- OUTSIDE RECORDS SUMMARY | 2025-03-17 10:26 | XMS_ITS | CCD ---
Author Organization [facility] Care [facility] Providers Care Roller Turner Name Role Phone ERICK MELLISA STOHLER Unavailable [...] Unavail able SAMSA ., DARNELL Admitting Unavailable [facility] Primary Care Unavailable SAMSA ., DARNELL Attending Unavailable SAMSA ., DARNELL Consulting Unavailable SAMSA ., DARNELL Admitting Unavailable [facility] Primary Care Unavailable SAMSA ., DARNELL Attending Unavailable SAMSA ., DARNELL Consulting Unavailable GREG, KACIE Consulting Unavailable [facility] Primary Care Unavailable SAMSA ., DARNELL Attending Unavailable SAMSA ., DARNELL Consulting Unavailable SAMSA ., DARNELL Admitting Unavailable [facility] Primary Care Unavailable DR ALEYDA DYER Consulting Unavailable SAMSA ., DARNELL Attending Unavailable SAMSA ., DARNELL Admitting Unavailable SAMSA ., DARNELL Consulting Unavailable Noam CHRISTIAN, Risa Unavailable EMELY CANTU Referring Unavailable KACIE DEL REAL Primary Care Unavailable GILLIAN TAYLOR Attending Unavailable KACIE DEL REAL Referring Unavailable RISA MCNULTY Primary Care Unavailable Kacie Del Real MD Primary Care Provider Noam HO-RADIO NEWS ANCHORRisa Diaz Primary Care Provider LINSEY HALL Attending Unavailable LINSEY HALL Attending Unavailable LINSEY HALL Attending Unavailable ALEYDA FISHER Attending Unavailable ROLAND BILL Referring Unavailable LINSEY HALL Attending Unavailable BENNY DIAZ Attending Unavailable BENNY DIAZ Attending Unavailable Allergies Allergy Classification Reported Allergen(s) Allergy Type Date of Onset Reaction(s) Facility (10 sources) Gluten Propensity to adverse reactions 2 GI intolerance [facility] (10 sources) Isosorbide Dinitrate Drug Allergy 2 Headache [facility] (11 sources) Gluten; Translations: [GLUTEN] Propensity to adverse reactions to food (disorder) 2 [facility] (11 sources) Isosorbide; Translations: [ISOSORBIDE MONONITRATE] Drug Allergy 2 Headache [facility] (1 source) ALLERGIES NOT ON FILE; Translations: [ALLERGIES NOT ON FILE] Propensity to adverse reactions (disorder) [facility] Repository Medications Current Medications Medication Drug [...] FOR PAIN for 5 days 06/12/2023 Active [id number] 200 actuat albuterol 0.09 mg/actuat metered dose [...] artery disease involving coronary bypass graft of poarch heart without angina pectoris , Hx of [...] Ordered: 15-Mar-2022 DO Start : 15-Mar-2022 Active Iahtxturnhd-Uspgmwegk-Eqtbuz 200-62.5-25 MCG/ACT aerosol powder (10 sources) Start: 11-19-2022 take 1 puff(s) by inhalation once daily Opqeirdfohz-Fdhkyuiew-Thwwxo 200-62.5-25 MCG/ACT aerosol powder Inhale 1 puff 1 (one) time each day. 11/19/2022 Active whwfmjprhmo-lqavovwda-lvonia e r (TRELEGY ELLIPTA) 200-62.5-25 mcg blister with device (10 sources) Start: 03-15-2022 eydwzuvlgrt-elxbxwpmx-yaqhac e r (TRELEGY ELLIPTA) 200-62.5-25 mcg blister [...] artery disease involving coronary bypass graft of poarch heart without angina pectoris , Hx of CABG , Paroxysmal atrial fibrillation ([facility]) , Aneurysm of ascending aorta without [...] artery disease involving coronary bypass graft of poarch heart without angina pectoris , Hx of [...] artery disease involving coronary bypass graft of poarch heart without angina pectoris , Paroxysmal atrial [...] bedtime. 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 Normal [facility] Orders Onlyon 02-04-2025 Orders Only [id number] Armando Tabor 1960 M Date Provider Department Center 02/04/2025 [id number], PATRICIA [place] Family History Problem Relation Age of Onset Coronary artery disease Mother Coronary artery disease Father Family Status - Relation Status Age at Mother Father Sister Alive Normal [facility] Office Visiton 12-31-2024 Follow-up visit [id number] Armando Tabor 1960 M Date Provider Department Center 12/31/2024 [id number] DIAZ Family History Problem Relation Age of Onset Coronary artery disease Mother Coronary artery disease Father Family Status - Relation Status Age at Mother Father Sister Alive Level of Service:03650 MA OFFICE/OUTPATIENT ESTABLISHED MOD MDM 30 MIN Reason for Visit and Comments: Coronary Artery Disease [187] Hyperlipidemia [182] Hypertension [683959] Normal [facility] 36on 10-07-2024 36 Regarding echo and C [...] per Dr. Diaz. He verbalized understanding. Normal [facility] Office Visiton 08-16-2024 Follow-up visit [id number] Armando Tabor 1960 [facility] Provider Department Center 08/16/2024 [id number] DIAZ [facility] Family History Problem Relation Age of Onset Coronary artery disease Mother Coronary artery disease Father Family Status - Relation Status Age at Mother Father Level of Service:[id number] MA OFFICE/OUTPATIENT NEW MODERATE MDM 45 MINUTES Reason for Visit and Comments: Atrial Fibrillation [80] - Had EKG at last apt with [facility] in Jun 2024. Denies chest pain and bleeding on Eliquis. Coronary Artery Disease [187] - CABG and MAZE in 2016 Hypertension [039184] Hyperlipidemia [182] COPD [313] - Sees Dr. Oni Marrero [facility] POCT EKGOrdered By: Juana Hercules on 06-24-2024 scroll kit System EMG 1 Extremeityon [facility] NVC 7-8 Nerveson 06-08-2024 [facility] THEOPHYLLINEon 12-30-2022 THEOPHYLLINE 18.0 ug/mL Normal 10.0-20.0 [facility] Comment on above: Performed By: #### T ADALID #### [facility] [address] [address] [address] Karen Lee THEOPHYLLINEon 12-17-2022 THEOPHYLLINE 8.3 ug/mL Critically low 10.0-20.0 [facility] Comment on above: Performed By: #### T ADALID #### [facility] [address] [address] [address] Karen Lee Blood Pressure Cuff Sizeon 0 05-29-2022 Fall risk assessment a) No falls within the last year [facility] Work Phone: Tobacco use status [facility] b) No [facility] Work Phone: [...] Activated Vitals Vital Signs Recorded: 29May2022 02:58PM Ehkdqwvercl38.2 F Heart Rate91 Spbqfwovdap84 Uhotwkzi205 Fzbubuapn13 Blood Pressure Cuff SizeLarge Height5 ft 7.32 in Psklkd721 lb 7 oz BMI Kgozblrwxe61.15 kg/m2 BSA Calculated2.19 Tobacco Useb) No Falls Screening (Age 18+)a) No falls within the last year O2 Wluxdixwha39, Nasal Cannula Pain Scale7 Physical Exam The [...] May 29 2022 3:24PM EST (Author) Normal [facility] Referral Letteron 022 Referral Letter Mr. Tabor [...] May 29 2022 3:24PM EST (Author) Normal [facility] CT LUNG CANCER SCREENINGon 0 04-26-2022 CT [...] by: ALEYDA DYER Date: 2022-04-26 16:20 Normal [facility] HEMOGLOBINon 04-26-2022 Hemoglobin (Bld) [Mass/Vol] 13.6 g/dL Critically low 14.0-18.0 [facility] Comment on above: Performed By: #### H GB #### [facility] [address] [place] [address] Dr. 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 [facility] Progress Noteson 04-23-2018 Protein mass conc Encounter Department : [facility] THERAPYProgress Notes by Berlin Valle PTA at 04/23/2018 9:00 AMAuthor: Berlin Valle PTAService: (none)Author Type: Physical Therapy AssistantFiled: 04/23/2018 9:46 AMEncounter Date: 04/23/2018Status: SignedEditor: Berlin Valle PTA (Charge Account Authorizer)Physical Therapy Treatment NoteVisit Number: 5Encounter diagnosis:ICD-10-CM1.Cervical giaM54.22.Headache in back of [id number] Medical Diagnosis:SUBJECTIVE: Pt requests today being his [...] t-band- Scap retract x15- B UE ext w05Vqah tucks x15GTB rows 4r66Awwvxv- STM along c-spine paraspinals, UT, and levator [...] in rotation and SB without increase in pain.Scouring Machine Tender Goals: LTG to be met by 06/08/18 [...] Time: 10Total Treatment Time: 25 PT Treatment [facility] Progress Noteson 04-21-2018 Protein mass conc Encounter Department : [facility] THERAPYProgress Notes by Berlin Valle PTA at 04/21/2018 9:00 AMAuthor: Berlin Valle PTAService: (none)Author Type: Physical Therapy AssistantFiled: 04/21/2018 9:46 AMEncounter Date: 04/21/2018Status: SignedEditor: Berlin Valle PTA (Charge Account Authorizer)Physical Therapy Treatment NoteVisit Number: 4Encounter diagnosis:ICD-10-CM1.Cervical giaM54.22.Headache in back of [id number] Medical Diagnosis: CervicalgiaSUBJECTIVE:Complia nce with HEP: Pt [...] t-band- Scap retract x15- B UE ext o95Bldi tucks x15GTB rows 8u31Chxdln- STM along c-spine paraspinals, UT, and levator [...] in rotation and SB without increase in pain.Scouring Machine Tender Goals: LTG to be met by 06/08/18 [...] Time: 17Total Treatment Time: 32 PT Treatment [facility] Progress Noteson 04-16-2018 Protein mass conc Encounter Department : [facility] THERAPYProgress Notes by Collette Villanueva PTA at 04/16/2018 9:00 AMAuthor: Collette Villanueva PTAService: (none)Author Type: Physical Therapy AssistantFiled: 04/16/2018 12:11 PMEncounter Date: 04/16/2018Status: SignedEditor: Collette Villanueva PTA (Charge Account Authorizer)Physical Therapy Treatment NoteVisit Number: 3Encounter diagnosis:ICD-10-CM1.Cervical giaM54.22.Headache in back of [id number] Medical Diagnosis: CervicalgiaSUBJECTIVE:Complia nce with HEP: Patient [...] t-band- Scap retract x15- B UE ext o30Uosu tucks x15GTB rows 9l42Hswjzu- STM along c-spine paraspinals, UT, and levator [...] 28Total Treatment Time: 43 PT Treatment Normal [facility] Progress Noteson 04-10-2018 Protein mass conc Encounter Department : [facility] THERAPYProgress Notes by Berlin Valle PTA at 04/10/2018 9:00 AMAuthor: Berlin Valle PTAService: (none)Author Type: Physical Therapy AssistantFiled: 04/10/2018 10:21 AMEncounter Date: 04/10/2018Status: SignedEditor: Berlin Valle PTA (Charge Account Authorizer)Physical Therapy Treatment NoteVisit Number: 2Encounter diagnosis:ICD-10-CM1.Cervical giaM54.22.Headache in back of [id number] Medical Diagnosis: CervicalgiaSUBJECTIVE:Complia nce with HEP: Pt [...] UT stretch 3x 30'Chin tucks x15GTB rows 5i34YRJ: chin tuck, UT and LS stretch, scap [...] in rotation and SB without increase in pain.Scouring Machine Tender Goals: LTG to be met by 06/08/18 [...] Time: 30Total Treatment Time: 45 PT Treatment [facility] Progress Noteson 04-08-2018 Protein mass conc Encounter Department : [facility] THERAPYProgress Notes by Jacquelyn Rivera PT at 04/08/2018 1:45 PMAuthor: Jacquelyn Rivera, PTService: (none)Author Type: Physical TherapistFiled: 04/08/2018 6:47 PMEncounter Date: 04/08/2018Status: SignedEditor: Jacquelyn Rivera PT (Physical Therapist)Physical Therapy EvaluationEncounter diagnosis:ICD-10-CM1.Cervical giaM54.22.Headache in back of jooxM37Iyguluutr provider: Mellisa Clarke,*Primary Medical Diagnosis: CervicalgiaPlan of [...] Home: 15Prior Level of Functioning: Level of [place]: [facility] Functioning: Outcome Score: NDI (26 raw score NDI, 52% disability) Functional deficits: reports no functional deficits, able to do everything just withincreased pain. Level of [place]: Modified IndependentSleep Status/Sleep Hygiene: Preferred Sleep Position: [...] codes)[id number] Mobility Current Status; Severity: CK 40-59% uesuufvlT6140 Mobility Goal Status; Severity: CI 1-19% impairedOutcome measure(s)/Test(s) used/Result(s): 52% disability on NDI.Clinical Judgment: Moderate to severe impairement, decreased neck ROM and strength, tenderness totrigger points moderateNew Category to Bzulxx-Gg-Shbu only?:NoEvaluation Breakdown DescriptionPatient HistoryComorbiditiesEnvironme ntal/Personal factorsLearning/CognitionDome stic [...] in rotation and SB without increase in pain.Scouring Machine Tender Goals: LTG to be met by 06/08/18 [...] Time: 60Time in: 1:44Time Out: 2:45 PT [facility] Vital Signs Date Time Vital Sign Value Performing Clinician Facility 12-27-2024 10:42-0400 Body height 177.8 cm Linsey LI Work Phone: [facility] 12-27-2024 10:42-0400 Body mass index (BMI) [Ratio] 35.87 kg/m2 Linsey LI Work Phone: [facility] 12-27-2024 10:42-0400 Body weight 113.4 kg Linsey LI Work Phone: [facility] 12-27-2024 10:42-0400 Diastolic blood pressure 82 mm[Hg] Linsey LI Work Phone: [facility] 12-27-2024 10:42-0400 Heart rate 75 /min Linsey LI Work Phone: [facility] 12-27-2024 10:42-0400 Respiratory rate 16 /min Linsey LI Work Phone: [facility] 12-27-2024 10:42-0400 SaO2% (BldA) [Mass fraction] 94 % Linsey LI Work Phone: [facility] 12-27-2024 10:42-0400 Systolic blood pressure 142 mm[Hg] Linsey LI Work Phone: [facility] 06-24-2024 13:52-0400 Body height 172.7 cm Gillian Taylor MD Work Phone: [facility] [employer] [facility] 06-24-2024 13:52-0400 Body mass index (BMI) [Ratio] 37.26 kg/m2 Gillian Taylor MD Work Phone: [facility] 06-24-2024 13:52-0400 Body weight 111.13 kg Gillian Taylor MD Work Phone: [facility] 06-24-2024 13:52-0400 Diastolic blood pressure 62 mm[Hg] Gillian Taylor MD Work Phone: [facility] 06-24-2024 13:52-0400 Heart rate 74 /min Gillian Taylor MD Work Phone: [facility] 06-24-2024 13:52-0400 SaO2% (BldA) [Mass fraction] 94 % Gillian Taylor MD Work Phone: [facility] 06-24-2024 13:52-0400 Systolic blood pressure 122 mm[Hg] Gillian Taylor MD Work Phone: [facility] 06-09-2024 11:17-0400 Body height 172.7 cm Linsey Hall PA Work Phone: [facility] 06-09-2024 11:17-0400 Body mass index (BMI) [Ratio] 38.01 kg/m2 Linsey Hall PA Work Phone: [facility] 06-09-2024 11:17-0400 Body weight 113.4 kg Linsey Hall PA Work Phone: [facility] 06-09-2024 11:17-0400 Diastolic blood pressure 84 mm[Hg] Linsey Hall PA Work Phone: [facility] 06-09-2024 11:17-0400 Heart rate 78 /min Linsey Hall PA Work Phone: [facility] 06-09-2024 11:17-0400 Respiratory rate 16 /min Linsey Hall PA Work Phone: [facility] 06-09-2024 11:17-0400 SaO2% (BldA) [Mass fraction] 93 % Linsey LI Work Phone: [facility] 06-09-2024 11:17-0400 Systolic blood pressure 132 mm[Hg] Linsey LI Work Phone: [facility] 05-29-2022 14:58-0400 Body height 170.99 cm Referring [...] Provider Unknown [facility] Work Phone: 05-29-2022 14:58-6800 7 1 Referring Provider Unknown [facility] Work Phone: Comment on above: [employer] Encounters Encounter Date Encounter Type Care Provider Facility Start: 12-31-2024 End: 12-31-2024 ambulatory [facility] Start: 12-27-2024 End: 12-27-2024 Bamboo flowsheet Barbara LI Work Phone: [facility] Start: 12-27-2024 End: 12-27-2024 Bamboo [place] Bootheet Barbara LI Work Phone: [facility] Start: [...] care Start: 11-09-2024 End: 11-12-2024 Refill Keron Arrgeuin PA-C Work Phone: [facility] Comment on above: Med Refill Start: 09-07-2024 End: 09-09-2024 Refill Linsey LI Work Phone: [facility] [address] Comment on above: DDD (degenerative di sc disease), lumbar; Lumbosacral radiculopathy Start: 08-16-2024 End: 08-16-2024 ambulatory [facility] Start: 07-29-2024 End: 08-03-2024 Refill Pablo Zaragoza MARKETING PRODUCTION SPECIALIST-TRAFFIC SIGNAL SUPERVISOR MAINTENANCE Work Phone: [facility] Comment on above: Med Refill Start: 06-24-2024 End: 06-24-2024 Office outpatient visit 25 minutes [facility]ian Taylor MD [facility] Comment on above: Coronary artery dise ase involving coronary bypass graft of poarch heart without angina pectoris (Primary Dx); Paroxysmal atrial fibrillation ([facility]); Primary hypertension; Mixed hyperlipidemia; Left ventricular dysfunction Start: 06-24-2024 End: 06-24-2024 ambulatory GILLIAN TAYLOR [facility] Start: 06-23-2024 End: 06-23-2024 Telephone encounter Juana Hercules CMA [facility] Start: 06-09-2024 End: 06-09-2024 Office outpatient visit 15 minutes Linsey LI Work Phone: [employer] [address] Comment on above: 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 with discogenic back pain and lower extremity pain (Primary Dx); Neck pain; Chronic daily headache; Tremor Start: 06-09-2024 End: 06-09-2024 ambulatory LINSEY HALL Not Available Start: 06-08-2024 End: 06-08-2024 Bamboo flowsheet Aleyda Fisher MD Work Phone: [facility] [address] Start: 06-08-2024 End: 06-08-2024 Bamboo flowsheet Aleyda Fisher MD Work Phone: [facility] [place] [address] Start: 06-08-2024 End: 06-08-2024 Patient encounter procedure Aleyda Fisher MD Work Phone: [facility] [employer] [address] Comment on above: Carpal tunnel syndro me of left wrist (Primary Dx) Start: 06-08-2024 End: 06-08-2024 ambulatory ALEYDA FISHER Not Available Start: 05-21-2024 End: 05-21-2024 [facility] Comment on above: Med Refill Start: 05-17-2024 End: 05-17-2024 ambulatory EMELY CANTU [facility] Comment on above: DDD (degenerative di sc disease), lumbar; Lumbosacral radiculopathy Start: 05-14-2024 End: 05-14-2024 Telephone encounter Juana Hercules CMA [facility] Start: 04-30-2024 End: 04-30-2024 Telephone encounter Ashlee Lim RN [facility] Start: 03-15-2024 End: 03-15-2024 ambulatory LINSYE HALL Not Available Start: 02-18-2024 End: 02-19-2024 Refill [facility] Comment on above: Med Refill Start: 01-24-2024 End: 01-28-2024 Refill Elise Borjas MD Work Phone: [facility] Comment on above: Med Refill Start: 01-21-2024 End: 01-21-2024 ambulatory LINSEY HALL Not Available Start: 12-30-2022 End: 12-31-2022 ambulatory DARNELL ALICEA . Facility: Start: 12-17-2022 End: 12-18-2022 ambulatory DARNELL ALICEA . Facility: Start: 06-17-2022 AUDIT Referring Prov ider Unknown [facility] [facility] Work Phone: Start: 05-29-2022 Office outpatient ne w 45 minutes Referring Provider Unknown [facility] Work Phone: Start: 05-29-[address] Popeye Peña [facility] Start: 05-21-2022 End: 08-14-2022 ambulatory [facility] Facility: Start: 04-26-2022 End: 04-27-2022 ambulatory [facility] Facility: Start: 04-23-2018 End: 04-23-2018 Patient encounter BERLIN Demarco [facility] Start: 04-21-2018 End: 04-21-2018 Patient encounter [place] Demarco [facility] Start: 04-16-2018 End: 04-16-2018 Patient encounter COLLETTE VILLANUEVA [facility] Start: 04-10-2018 End: 04-10-2018 Patient encounter [place] Demaroc [facility] Start: 04-08-2018 End: 04-08-2018 Patient encounter MELLISA CLARKE [facility] Patient encounter status Referri ng Provider [...] bypass grafting Hx of CABG Pablo Zaragoza MARKETING PRODUCTION SPECIALIST-TRAFFIC SIGNAL SUPERVISOR MAINTENANCE Work Phone: History of coronary artery bypass grafting Hx of CABG Keron Arreguin PA-C Work Phone: Prosthetic arthropla sty of shoulder Referring Provider Unknown Total replacement of hip Ref erring Provider Unknown Plan of Treatment Date Care Activity Detail Author Start: 08-13-2033 DTaP,Tdap and Td Vaccines (2 - Td or Tdap) DTaP,Tdap and Td Vaccines (2 - Td or Tdap) [facility] Start: 06-24-2025 Adult BMI Screening Adult BMI Screen ing [facility] Start: 06-24-2025 Tobacco Screening Tobacco Screening [facility] Start: 05-16-2025 End: 05-16-2025 Patient encounter procedure 05/16/2025 10:40 AM EDT Office Visit [facility] [address] [place] [address] Linsey Hall PA [address] [place] [address] [facility] Start: 05-09-2025 Influenza vaccination Influenz a Vaccine (Season Ended) [facility] Start: 12-23-2024 End: 12-23-2024 Patient encounter procedure 12/23/2024 10:40 AM EDT Office Visit [facility] [address] [place] [address] Linsey Hall PA [address] [place] [address] [facility] Start: 12-21-2024 End: 12-21-2024 Patient encounter procedure 12/21/2024 10:40 AM EDT Office Visit [facility] [address] [place] [address] Linsey Hall PA [address] [place] [address] [facility] [address] Start: 07-29-2024 Adult BMI Screening Adult BMI Screen ing [facility] Start: 07-29-2024 Tobacco Screening Tobacco Screening [facility] Start: 06-24-2024 End: 06-24-2025 CT Chest WO and CT angiogram Coronary arteries W contrast IV CT angiogram chest Imaging Routine Coronary artery disease involving coronary bypass graft of poarch heart without angina pectoris Expected: 06/24/2024, Expires: 06/24/2025 [facility] Comment on above: Expected: 06/24/2024 , Expires: 06/24/2025 Start: 06-24-2024 End: 06-24-2025 Echo complete W/O contrast Echo complete W/O contrast Echocardiography Routine Coronary artery disease involving coronary bypass graft of poarch heart without angina pectoris Expected: 06/24/2024, Expires: 06/24/2025 [facility] Comment on above: Expected: 06/24/2024 , Expires: 06/24/2025 Start: 06-24-2024 End: 06-24-2024 Patient encounter procedure 06/24/2024 2:00 PM EDT Office Visit [facility] [address] [place] [address] Gillian Taylor MD [address] [place] [address] [facility] Start: 06-09-2024 End: 06-09-2024 Patient encounter procedure 06/09/2024 11:20 AM EDT [facility] [address] [place] [address] Linsey Hall PA [address] [place] [address] [facility] Start: 06-08-2024 End: 06-08-2024 Patient encounter procedure [facility] Comment on above: Arrived Start: 05-17-2024 End: 05-17-2024 Professional / ancillary services management 05/17/2024 8:30 AM EDT Ancillary Procedure [facility] [address] [place] [id number] Emely Cantu MD [address] [place] [address] [facility] Start: 05-09-2024 Influenza vaccination [facility] Start: 2010 Administration of varicella zoster vaccine Zoster (Shingles) Vaccine (1 of 2) [facility] Start: 1979 DTaP,Tdap and Td Vaccines (1 - Tdap) DTaP,Tdap and Td Vaccines (1 - Tdap) [facility] Start: 1978 Adult BMI Follow Up Plan Adult BMI F ollow Up Plan [facility] Start: 1972 Depression Screening Depression Scre ening [facility] Start: 1960 Screening for malign ant neoplasm of colon [facility] End: 06-24-2025 CBC panel - Blood by Automated count CBC Lab Routine Paroxysmal atrial fibrillation (CMS-HCC) 1 Occurrences starting 06/24/2024 until 06/24/2025 [facility] Comment on above: 1 Occurrences starti ng 06/24/2024 until 06/24/2025 End: 06-24-2025 Comprehensive metabolic 2000 panel - Serum or Plasma CMP Lab Routine Primary hypertension 1 Occurrences starting 06/24/2024 until 06/24/2025 [facility] Comment on above: 1 Occurrences starti ng 06/24/2024 until 06/24/2025 End: 06-24-2025 Lipid panel Lipid panel Lab Routine Mixed hyperlipidemia 1 Occurrences starting 06/24/2024 until 06/24/2025 [facility] Work Phone: Comment on above: 1 Occurrences starti ng 06/24/2024 until 06/24/2025 Immunizations Immunization Date Immunization Notes Care Provider [facility] 08-13-2023 influenza virus vaccine, unspecified formulation Yuri Chapa MA [facility] 05-23-2021 influenza, high dose seasonal, preservative-free Yuri Chapa MA [facility] 05-23-2021 influenza virus vaccine, unspecified formulation Elise Borjas MD Work Phone: [facility] 10-25-2020 Pfizer Purple Cap SARS-CoV-2 Vaccination Yuri Chapa MA [facility] 09-20-2020 Pfizer Purple Cap SARS-CoV-2 Vaccination Yuri Chapa MA [facility] Payers Date Payer Category Payer Medicare (Managed Care) [employer] M EDICARE ADVANTAGE [id number] 2019 Medicare [id number] 2019 Medicare HMO [employer] MEDICARE [id number] 1960 Unknown [id number] [id number]. 2.356 1960 Unknown [id number] 2.16.840.1.855907.3.579. 2.593 1960 Unknown [id number] 2.16.840.1.003191.3.579. 2.593 1960 Unknown [id number] 2.16.840.1.079709.3.579. 2.593 1960 Unknown [id number] 2.16.840.1.760325.3.579. 2.593 1960 Unknown [id number] 2.16.840.1.677972.3.579. 2.1286 1960 Unknown [id number] 2.16.840.1.671874.3.579. 2.1286 1960 Unknown [id number] 2.16.840.1.592684.3.579. 2.1259 1960 Unknown [id number] 2.16.840.1.181236.3.579. 2.1259 1960 Unknown [id number] 2.16.840.1.362186.3.579. 2.1259 1960 Unknown [id number] 2.16.840.1.977483.3.579. 2.1259 1960 Unknown [id number] [id number]. 2.1259 1959 Medicare [id number] Unknown Social History Date Type Detail Facility Start: 03-15-2024 End: 12-27-2024 Social alcohol use Social alcohol use [facility] Start: 05-20-2022 End: 03-15-2024 Tobacco smoking status NCIS Ex-smoker [facility] Start: 09-08-1974 End: 09-08-2009 History of tobacco use Current smoker [facility] Start: 09-08-1974 End: 09-08-2009 History of tobacco use Cigarette Smoker [facility] Start: 05-20-2022 End: 03-15-2024 Tobacco use and exposure Smokeless tobacco non-user [facility] Start: 03-15-2024 End: 12-27-2024 Alcoholic beverage intake Lifetime non-drinker (finding) [facility] Start: 03-15-2024 End: 12-27-2024 Tobacco use panel [facility] Start: 02-13-2023 Alcohol Comment ocassionally [facility] Start: 1960 Sex assigned at Male [facility] Start: 02-21-2023 Gender identity Identifies as male gender (finding) [facility] Start: 07-29-2023 End: 06-24-2024 Alcoholic beverage intake Ex-drinker (finding) [facility] Within the past 12 months we worried whether our food would run out before we got money to buy more. Never True [facility] Start: 05-20-2022 Alcohol [facility] Start: 1960 Sex assigned at Not on file P [facility] Start: 03-22-2022 Sex Male (finding) [facility] Clinical Notes 04-30-2024 to 12-31-2024 GUILLERMO [...] procedure, paroxysmal atrial fibrillation, s/p ablation in [place], thoracic aortic aneurysm, left ventricle dysfunction, hypertension, hyperlipidemia COPD, prior tobacco and alcohol abuse He used to follow with [facility] cardiology. He states that overall he [...] developed, in no (more content not included)... [facility] 12-27-2024 History of Present illness Narrative Subjective Elise Tabor is a 64 y.o. year old male Chief Complaint Patient presents with Back Pain Past Medical History: Diagnosis Date Anemia Atrial fibrillation ([facility]) Celiac disease (CMS/HCC) 03/04/2019 Cervicalgia 04/08/2018 [...] triceps, wrist extensors, wrist extensors, wrist flexor, law instructor strength 5/5. LUE Strength deltoid, biceps, triceps, wrist extensors, wrist extensors, wrist flexor, law instructor strength 5/5. RLE Strength illopsoas, quadriceps, tibialis [...] or worsening symptoms documented in this encounter [facility] 12-20-2024 Telephone encounter Note Patient is in need of refill, appt had to be rescheduled due to provider being out. Please send to [facility] in [place] [facility] 12-20-2024 Miscellaneous Notes Patient is in need of refill, appt had to be rescheduled due to provider being out. 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 Explained to him that we do try to keep pt's with same doc but it does not always work out that way. Pt understood but has already seen the the other group. 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 Explained to him that we do try to keep pt's with same doc but it does not always work out that way. Pt understood but has already seen the the other group. [facility] 09-09-2024 Telephone encounter Note 06/09/2024 Continue Lyrica 150mg PO TID for neuropathic pain [facility] reviewed. Last filled 05/17/2024 for 90 day supply. Due 08/15/2024 [facility] 09-09-2024 Miscellaneous Notes 06/09/2024 Continue Lyrica 150mg PO TID for neuropathic pain [facility] reviewed. Last filled 05/17/2024 for 90 day supply. 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 male with history of coronary artery disease and coronary artery bypass surgery and maze procedure, paroxysmal atrial fibrillation, s/p ablation in [place], thoracic aortic aneurysm, left ventricle dysfunction, hypertension, hyperlipidemia COPD, prior tobacco and alcohol abuse He used to follow with [facility] cardiology. He states that overall he [...] or gallops. RESPIR (more content not included)... [facility] 07-29-2024 Miscellaneous Notes [facility] 06/24/24 [facility] 07-29-2024 Telephone encounter Note [facility] 06[facility]24/24 [facility] 06-24-2024 History of Present illness Narrative Elise Tabor Date of visit: 06/24/2024 Date of : 1960 Age: 64 y.o. Patient Active Problem List Diagnosis Coronary artery disease involving coronary bypass graft of poarch heart without angina pectoris Paroxysmal atrial fibrillation [...] 65 mg by mouth daily with breakfast. flovigfmafm-nsazgfobd-ygxckytv (TRELEGY ELLIPTA) 200-62.5-25 mcg blister with device [...] atrial fibrillation despite the reported ablation in [place], continue on anticoagulation. We discussed this again [...] History: Diagnosis Date Arthritis Ascending aortic aneurysm ([facility]) Atrial fibrillation ([facility]) Celiac disease COPD (chronic obstructive pulmonary disease) ([facility]) Coronary artery disease with history of [...] artery disease involving coronary bypass graft of poarch heart without angina pectoris - POCT EKG - CT angiogram chest; Future - Echo complete W/O contrast; Future 2. Paroxysmal atrial fibrillation (CMS-HCC) - CBC; Future 3. Primary hypertension - CMP; Future 4. Mixed hyperlipidemia - Lipid panel; Future 5. Left ventricular dysfunction 1. ASCVD without angina --history of CABG with Maze --[facility] to the [facility] 2015 in [place] 2. Cardiomyopathy -ischemic versus related to alcohol [...] APRN-CHAO Referring Physician: Kacie Del Real MD [address] [place] [address] documented in this encounter [facility] 06-24-2024 Instructions Gillian Taylor MD - 06/24/2024 2:00 PM EDT Laboratory studies CTA of the aorta Echocardiogram documented in this encounter [facility] 06-23-2024 Miscellaneous Notes Called patient to remind them to bring their most current copy of their medication list with them to their appt. Patient verbalizes understanding. documented in this encounter [facility] 06-23-2024 Telephone encounter Note Called patient to remind them to bring their most current copy of their medication list with them to their appt. Patient verbalizes understanding. [facility] 06-09-2024 History of Present illness Narrative Subjective Elise Tabor is a 64 y.o. year old male Chief Complaint Patient presents with Back Pain Neck Pain Tremors Past Medical History: Diagnosis Date Anemia Atrial fibrillation (CMS/HCC) Celiac disease (CMS/HCC) 03/04/2019 Cervicalgia 04/08/2018 Chronic obstructive lung disease (CMS/HCC) 01/22/2018 Chronic obstructive pulmonary disease (COPD) (CMS/[facility]) Coronary artery disease ([facility]) Emphysema of lung ([facility]) H/O hernia repair Headache in back of head 04/08/2018 Peripheral polyneuropathy 06/27/2023 Pneumonia Rheumatoid arthritis ([facility]) Sinus tachycardia 01/22/2018 Past Surgical History: Procedure [...] handles -admits hand weakness -some trouble with law instructor ROS Review of Systems Constitutional: Negative for [...] triceps, wrist extensors, wrist extensors, wrist flexor, law instructor strength 5/5. LUE Strength deltoid, biceps, triceps, wrist extensors, wrist extensors, wrist flexor, law instructor strength 5/5. RLE Strength illopsoas, quadriceps, tibialis [...] or worsening symptoms documented in this encounter [facility] 06-08-2024 History of Present illness Narrative Images from the original note were not included. Reason for Appointment: EMG Patient: Elise Tabor : 1960 EMG Computer: [employer] Referring Physician: Roland Bill PA-C EMG: WALTER art museum docent: Vera Zuñiga CMA Office Location: [place] Reason for EMG: c/o pain and paresthesia in the arm from the shoulder down. No Hx of DM, takes Eliquis and ASA Comments: Procedure explained to the patient who expressed understanding. documented in this encounter [facility] 05-14-2024 Miscellaneous Notes Phoned pt to advise that appt scheduled for 05/17/2024 is the date that his EM will be sent out and is NOT an actual appt. Verbalized understanding. documented in this encounter [facility] 05-14-2024 Telephone encounter Note Phoned pt to advise that appt scheduled for 05/17/2024 is the date that his EM will be sent out and is NOT an actual appt. Verbalized understanding. [facility] 04-30-2024 Miscellaneous Notes CLIENT ASSOCIATE, Patient called and said that he has not been in a-fib since 2018 HX Coronary artery disease s/p CABG x 1 ([facility]) 2016 in [place] Paroxysmal atrial fibrillation (diagnosed in 1998); Maze at time of open heart surgery Thoracic aortic aneurysm, 47 mm 05/2022 Hypertension Frequent PVCs, 6% burden on most recent monitoring 06/2023 History of NSVT Chronic hypoxic respiratory failure COPD Patient said that Eliquis is not affordable for him and would like to know if since he has not been in a-fib [facility], is there a chance he would be able to dc Eliquis at some point. Please advise. Thank you! 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 This is something we would need [...] patient to call us back to review CLIENT ASSOCIATE's response. documented in this encounter [facility] 04-30-2024 Telephone encounter Note CLIENT ASSOCIATE, Patient called and said that he has not been in a-fib since 2018 HX Coronary artery disease s/p CABG x 1 ([facility]) 2016 in [place] Paroxysmal atrial fibrillation (diagnosed in 1998); Maze at time of open heart surgery Thoracic aortic aneurysm, 47 mm 05/2022 Hypertension Frequent PVCs, 6% burden on most recent monitoring 06/2023 History of NSVT Chronic hypoxic respiratory failure COPD Patient said that Eliquis is not affordable for him and would like to know if since he has not been in a-fib [facility], is there a chance he would be able to dc Eliquis at some point. Please advise. Thank you! 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 [facility] 04-30-2024 Telephone encounter Note This is something [...] further. Would continue Eliquis in the meantime. [facility] 04-30-2024 Telephone encounter Note Amml asking patient to call us back to review CLIENT ASSOCIATE's response. [facility] Evaluation note Diagnosis Carpal tunnel syndrome of left wrist- Primary documented in this encounter [facility]* Diagnosis Degeneration of intervertebral disc of lumbar region with discogenic back pain and lower extremity pain- Primary Neck pain Cervicalgia Chronic daily headache Headache Tremor Abnormal involuntary movements documented in this encounter [facility] note* Diagnosis DDD (degenerative disc disease), lumbar Degeneration of lumbar or lumbosacral intervertebral disc Lumbosacral radiculopathy Thoracic or lumbosacral neuritis or radiculitis, unspecified documented [facility]* Diagnosis DDD (degenerative disc disease), lumbar Degeneration of lumbar or lumbosacral intervertebral disc Lumbosacral radiculopathy Thoracic or lumbosacral neuritis or radiculitis, unspecified documented in this encounter [facility] HealthcareEvaluation note* Diagnosis Coronary artery disease involving coronary bypass graft of poarch heart without angina pectoris Hx of CABG Postsurgical aortocoronary bypass status Paroxysmal atrial fibrillation (CMS-HCC) Atrial fibrillation Aneurysm of ascending aorta without rupture (CMS-HCC) History of maze procedure documented in this encounter [facility]* Diagnosis Coronary artery disease involving coronary bypass graft of poarch heart without angina pectoris Hx of CABG Postsurgical aortocoronary bypass status Paroxysmal atrial fibrillation (CMS-HCC) Atrial fibrillation Aneurysm of ascending aorta without rupture (CMS-HCC) History of maze procedure [facility] Diagnosis Coronary artery disease involving coronary bypass graft of poarch heart without angina pectoris Paroxysmal atrial fibrillation (CMS-HCC) Atrial fibrillation Aneurysm of ascending aorta without rupture (CMS-HCC) Hx of CABG 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 documented in this encounter [facility]* Diagnosis Coronary artery disease involving coronary bypass graft of poarch heart without angina pectoris- Primary Paroxysmal atrial fibrillation (CMS-HCC) Atrial fibrillation Primary hypertension Unspecified essential hypertension Mixed hyperlipidemia Left ventricular dysfunction Left heart failure [facility] Diagnosis Coronary artery disease involving coronary bypass graft of poarch heart without angina pectoris Paroxysmal atrial fibrillation (CMS-HCC) Atrial fibrillation Aneurysm of ascending aorta without rupture (CMS-HCC) Hx of CABG 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 [facility] Diagnosis Coronary artery disease involving coronary bypass graft of poarch heart without angina pectoris Hx of CABG Postsurgical aortocoronary bypass status Paroxysmal atrial fibrillation (CMS-HCC) Atrial fibrillation Aneurysm of ascending aorta without rupture (CMS-HCC) History of maze procedure documented in this encounter [facility]* Diagnosis DDD (degenerative disc [...] oxygen chronically. He is set to begin pulmonaryrehabilitation.[facility] Work Phone: History of Present illness NarrativeMrLeyla Tabor is referred for consideration of LVRS. 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 He is on 3 L nasal cannula oxygen chronically. He is set to begin pulmonaryrehabilitation.[facility] Work Phone: History of Present illness NarrativeMr. Tabor is referred for consideration of LVRS. 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 He is on 3 L nasal cannula oxygen chronically. He is set to begin pulmonaryrehabilitation.[facility] Work Phone: InstructionsNot on filedocumented in [...] Aleyda Fisher MD [address] [place] [address] Referral ID Status Reason Start Date Expiration Date V isits Requested Visits Authorized [id number] Pending Review 06/08/2024 12/05/2024 1 1 Additional Source Comments (unrecognized sect ion and content) No Status Records FoundNo Status Records FoundNo Status Records FoundNo Status Records FoundNo Status Records FoundNo Status Records FoundNo Status Records Found INFORMATION SOURCE (unrecogn ized section and content) DATE CREATED AUTHOR 07/04/2018 [facility] DATE CREATED AUTHOR AUTHOR'S ORGANIZ ATION 06/09/2022 [facility] DATE CREATED AUTHOR AUTHOR'S ORGANIZ ATION 06/09/2022 [employer] DATE CREATED AUTHOR AUTHOR'S ORGANIZ ATION 02/14/2023 [facility] DATE CREATED AUTHOR AUTHOR'S ORGANIZ ATION 07/06/2024 [facility] DATE CREATED AUTHOR AUTHOR'S ORGANIZ ATION 12/27/2024 [facility] d[facility] Specialists EPIC DATE CREATED AUTHOR AUTHOR'S ORGANIZ ATION 02/10/2025 [facility] Care Teams (unrecognized sec tion and content) Roller Turner Relationship Specialty Start Date End Date Risa Mcnulty NP [address] [phone] Referring Physician Family Medicine 03/15/24 Roller Turner Relationship Specialty Start Date End Date Risa Mcnulty NP [address] [place] [address] Referring Physician Family Medicine 03/15/24 Roller Turner Relationship Specialty Start Date End Date Risa Mcnulty NP [address] [place] [address] Referring Physician Family Medicine 03/15/24 Roller Turner Relationship Specialty Start Date End Date Risa Mcnulty, CLINICAL STUDIES SPECIALIST [address] [place] [address] Referring Physician Family Medicine 03/15/24 Roller Turner Relationship Specialty Start Date End Date Risa Mcnulty, CLINICAL STUDIES SPECIALIST [address] [place] [address] Referring Physician Family Medicine 03/15/24 Roller Turner Relationship Specialty Start Date End Date Kacie Del Real MD [address] [place] [id number] PCP - General Family Medicine 03/22/22 Roller Turner Relationship Specialty Start Date End Date Kacie Del Real MD [address] [place] [id number] PCP - General Family Medicine 03/22/22 Roller Turner Relationship Specialty Start Date End Date Kacie Del Real MD [address] [place] [address] [phone] PCP - General Family Medicine 03/22/22 Roller Turner Relationship Specialty Start Date End Date Kacie Del Real MD [address] [place] [id number] PCP - General Family Medicine 03/22/22 Roller Turner Relationship Specialty Start Date End Date Kacie Del Real MD [address] [place] [id number] PCP - General Family Medicine 03/22/22 Roller Turner Relationship Specialty Start Date End Date Risa Mcnulty, MARKETING PRODUCTION SPECIALIST-RADIO NEWS ANCHOR [address] [place] [id number] PCP - General Family Medicine 06/24/24 Roller Turner Relationship Specialty Start Date End Date Risa Mcnulty, MARKETING PRODUCTION SPECIALIST-RADIO NEWS ANCHOR [address] [place] [address] PCP - General Family Medicine 06/24/24 Roller Turner Relationship Specialty Start Date End Date Risa Mcnulty MARKETING PRODUCTION SPECIALIST-RADIO NEWS ANCHOR [address] [place] [address] PCP - General [facility] Medicine 06/24/24 Roller Turner Relationship Specialty Start Date End Date Risa Mcnulty APRN-RADIO NEWS ANCHOR [address] [place] [address] PCP - General [facility] Medicine 06/24/24 Roller Turner Relationship Specialty Start Date End Date Risa Mcnulty, CLINICAL STUDIES SPECIALIST [address] [place] [phone] Referring Physician Family Medicine 03/15/24 Reason for Visit (unrecogniz ed section and content) Specialty Diagnoses / Procedures Referred By Tonya t Referred To Contact Neurology Diagnoses LUE EMG paresthesias of hand, numbness and tingling, ref by Wei Bill PACr20.2 Procedures MA NERVE CONDUCTION STUDIES 9-10 STUDIES MA NEEDLE EMG EA EXTREMTY W/PARASPINL [place] [address] [place] [address] Aleyda Fisher MD [address] [place] [address] Referral ID Status Reason Start Date Expiration Date V isits Requested Visits Authorized [id number] Closed Perform Procedure 06/08/2024 12/05/2024 1 1 [...] BE BASED ON THE PRIMARY CLINICAL RECORDS. [email or web address] provides no warranty or guarantee of the accuracy or completeness of information in this document.
[2025-03-17 10:57] LABS: Alanine Aminotransferase 33 U/L (16-63); Aspartate Amino Transferase 19 U/L (15-37); Cholesterol 124 mg/dL (<=200); HDL Cholesterol 46 mg/dL (40-60); Triglycerides 112 mg/dL (<=150); VLDL CHOLESTEROL 22.4 mg/dL
== END 2025-03-17 10:02 | disposition home or self-care (01) ==
LOC: LAB 10:04
PROVIDERS: PCP Family Medicine; Visit Provider Internal Medicine Cardiovascular Disease
DX: E78.5 Hyperlipidemia, unspecified (principal)
CPT/HCPCS: 36415; 80061; 84450; 84460

== ENCOUNTER 2025-03-17 10:30 | Outpatient (OUT) | payer MEDICARE, SELFPAY ==
--- OUTSIDE RECORDS SUMMARY | 2012-03-06 05:34 | XMS_ITS | Continuity of Care Document ---
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 [address] [place] [address], [address] [place] [address], . tel:[phone] [facility], [address] [place] [address], [address] [place] [address], tel:[phone] [facility] No Information 2 DANAE MARTINEZ. [address] [place] [address], [address] [place] [address], . tel:[phone] Offic/outpt E&m Estab Minor 10 [facility], [address] [place] [address], [address] [place] [address], tel:[phone] [facility] No Information 1 DANAE MARTINEZ. [address] [place] [address], [address] [place] [address], . tel:[phone] [facility], [address] [place] [address], [address] [place] [address], tel:[phone] [facility] No Information 1 DANAE MARTINEZ. [address] [place] [address], [address] [place] [address], . tel:[phone] [facility], [address] [place] [address], [address] [place] [address], tel:[phone] [facility] No Information Oct-0 3-201 1 DANAE LEALPELONLAKEISHA. [address] [place] [address], [address] [place] [address], . tel:[phone] [facility], [address] [place] [address], [address] [place] [address], tel:[phone] [facility] No Information Sep-2 2-201 1 BERYL ABBOTT. [address] [place] [address], [address] [place] [address], . tel:[phone] Referring Provider: Nigel Carvajal, [address] [place] [address], [facility]. tel:[phone] [facility], [address] [place] [address], [address] [place] [address], tel:[phone] [facility] No Information Sep-2 1-201 1 PANDA IBRAHIM. [address] [place] [address], [address] [place] [address], . tel:[phone] Referring Provider: Nigel Carvajal, [address] [place] [address], [facility]. tel:[phone] [facility], [address] [place] [address], [address] [place] [address], tel:[phone] [facility] No Information Sep-0 7-201 1 Samreen Ochoa. [address] [place] [address], [address] [place] [address], . tel:[phone] Referring Provider: Nigel Carvajal, [address] [place] [address], [facility]. tel:[phone] Offic/outpt E&m Estab Low-mod [facility], [address] [place] [address], [address] [place] [address], tel:[phone] [facility] No Information Oct-0 8-200 9 BERYL ABBOTT. [address] [place] [address], [address] [place] [address], . tel:[phone] Offic/outpt E&m Estab Low-mod [facility], [address] [place] [address], [address] [place] [address], tel:[phone] [facility] No Information Nov-2 6-200 7 KIBILOSÁLVARO MILENA. [address] [place] [address], [address] [place] [address], . tel:[phone] [facility], [address] [place] [address], [address] [place] [address], tel:[phone] [facility] No Information 5-200 7 KIBILOSKI MILENA. [address] [place] [address], [address] [place] [address], [place]. tel:[phone] [facility], [address] [place] [address], [address] [place] [address], tel:[phone] [facility] No Information Dec-0 4-200 6 KIBILOSÁLVARO MILENA. [address] [place] [address], [address] [place] [address], . tel:[phone] [facility], [address] [place] [address], [address] [place] [address], tel:[phone] [facility] Patient No Information 7-200 6 KIBILOSÁLVARO MILENA. [address] [place] [address], [address] [place] [address], . tel:[phone] [facility], [address] [place] [address], [address] [place] [address], tel:[phone] [facility] No Information January-2 5-200 6 KIBILOSÁLVARO MILENA. [address] [place] [address], [address] [place] [address], [place]. tel:[phone] Referring Provider: Jaquan Dowell, [address] [place], [place], [facility]. tel:[phone] [facility], [address] [place] [address], [address] [place] [address], tel:[phone] [facility] No Information Oct-0 2-200 3 KIBILOSKI MILENA. [address] [place] [address], [address] [place] [address], [place]. tel:[phone] [facility], [address] [place] [address], [place], [place], [id number], [place] tel:[phone] [facility] No Information No Information Family History Family Member Type Diagnosis Age At Onset No Information Payers Payer name Insurance type Covered constitution party ID Saleem ya(s) [facility] [id number] Medicare Part B [id number] Social History Type Description Quantity Date Captured Comments Sex Male Smoking Status No Information Chief Complaint And Reason For Visit No Information Reason For Referral Reason For Referral No Information Plan Of Treatment Date Type Action Status Future Order: Lab Order Cervical W/o Contrast ([id number]), Appointment on: , Sent on: Sent Future Order: Lab Order L Spine 3VW w/spot ([id number]), Sent on: Sent Future Order: Lab Order Thoracic Spine 2VW ([id number]), Sent on: Sent Future Order: Lab Order C Spine 2VW ([id number]), Sent on: Sent Future Order: Lab Order Lumbar W /o Contrast ([id number]), Appointment on: , Sent on: Sent Future Order: Lab Order Thoracic W/o Contrast ([id number]), Appointment on: , Sent on: Sent Future Order: Lab Order Hip 2 VW Left ([id number]), Sent on: Sent History Of Present Illness Encounter Date Complaint History Of Prese nt Illness No Information Functional Status Date Functional Assessmen t No Information Instructions Date Instruction Additional Infor mation No Information Assessments Type Assessment Date No Information Patient Care Teams Name Effective Dates (start - stop) Status Members No Information
--- OUTSIDE RECORDS SUMMARY | 2025-02-17 07:21 | XMS_ITS ---
Author Organization [facility] [place] Address [address] [place] [address] Care Team Providers Care Plastic Cutter Name Role Phone Andres Zayas Primary Care Provider REASON FOR VISIT ozempic denied Medications Medication SIG (Take, Route, Frequency, Duration) Notes Start Date End Date Status Ozempic (0.25 or 0.5 MG/DOSE) 2 MG/3ML Inject 0.25ml Subcutaneous once weekly for 28 days Active Encounters Encounter Location Date Provider Diagnosis [facility] [address] [place] [address] 02/17/2025 Andres Zayas Chronic respiratory failure with hypercapnia J96.12 Assessments Encounter Date Diagnosis (ICD Code) Assessment Notes Treatment Notes Treatment Clinical Notes Section Notes 02/17/2025 Chronic respiratory failure with hypercapnia (ICD-10 - J96.12) Plan Of Treatment Medication Medication Name Sig Start Date Stop Date Notes Ozempic (0.25 or 0.5 MG/DOSE) 2 MG/3ML Inject 0.25ml Subcutaneous once weekly for 28 days Next Appt Details Provider Name:Hu Bunn, 03/23/2025 01:00:00 PM, [address] [place], [address], Progress Notes * Nikunj CAUSEY EDOB:1959 (64 yo M)Acc No.[id number]:02/17/2025 Patient: Nikunj DUNBAR :1960 A ge:64 Y S ex:Male Address:[address] [place] [address], [id number] * Refills Refill Ozempic (0.25 or 0.5 MG/DOSE) Solution Pen-injector, 2 MG/3ML, Subcutaneous, 3 Milliliter, Inject 0.25ml, once weekly, 28 days, Refills=0 * true * Date: Generated for Efraín hamilton/Oscar/Jean Paulitting on: 0 03/17/2025 04:50 PM EDT
--- OUTSIDE RECORDS SUMMARY | 2025-03-17 08:01 | XMS_ITS ---
Author Organization [facility] in [place] Address [address] [place] [address] Care Team Providers Care Contract Negotiation Specialist Name Role Phone Andres Zayas Primary Care Provider [phone] Hu Bunn [phone] REASON FOR VISIT Appointment Encounters Encounter Location Date Provider Diagnosis Pulmonary Medicine [place] [address] [place] [address] 03/17/2025 Hu Bunn Plan Of Treatment Next Appt Details Provider Name:Hu Erasto, 03/23/2025 01:00:00 PM, [address] [place], [address], Progress Notes * Nikunj CAUSEY EDOB:1959 (64 yo M)Acc No.[id number]:03/17/2025 Patient: Nikunj DUNBAR :1960 A ge:64 Y S ex:Male Address:[address] [place], [address] * true * Date: Generated for Printi ng/Fayeseniag/eTransmitting on: 0 03/17/2025 04:49 PM EDT
--- OUTSIDE RECORDS SUMMARY | 2025-03-17 10:12 | XMS_ITS | Clinical Summary ---
Author Organization [facility] Address [address] [place] [address] Phone Care Team Providers Care Superintendent Nonselling Name Role Phone Unavailable Primary Care Provider [...] Screening 1960 Lipid Panel 1960 Sigmoidoscopy 1960 Skin Cancer Screening 1960 Yearly Adult Physical 1960 MMR Vaccines [...] - 2023-2 5 season) 2024 Influenza Vaccine (#1) 2025 HIB Vaccines Aged Out No longer eligi ble based on patient's age to complete this topic HPV Vaccines (No Doses Required) Completed Hepatitis A Vaccines Aged Out No long [...]
--- OUTSIDE RECORDS SUMMARY | 2025-03-17 10:12 | XMS_ITS | Clinical Summary ---
Author Organization [facility] Address [address] [place] [address] Care Team Providers Care It Infrastructure Architect Name Role Phone Mario Zayas MD Primary Care Provider [phone] Allergies No known active allergies Medications azithromycin (Zithromax) 250 mg tablet Take 250 mg by mouth in the morning. Active aspirin 81 mg chewable tablet Chew 81 mg in the morning. Active Trelegy Ellipta 200-62.5-25 mcg blister with device Inhale 1 puff in the morning. 2 Active albuterol (Ventolin HFA) 90 mcg/actuation inhaler every 4 (four) hours. Active ipratropium-albute roL (Duo-Neb) 0.5-2.5 mg/3 mL nebulizer solution INHALE 1 vial via NEBULIZER FOUR TIMES DAILY NEEDED Active predniSONE (Deltasone) 10 mg tablet Take 10 mg by mouth in the morning. 4 Active pregabalin (Lyrica) 150 mg capsule Take 150 mg by mouth 3 times a day. 4 Active meloxicam (Mobic) 15 mg tablet Take [...] 3 DOSES.- IF NO RELIEF CALL 911) 2 Active cholecalciferol, vitamin D3, 50 mcg (2,000 unit) capsule 1 capsule. Active zinc gluconate 50 mg tablet 1 (one) time each day at the same time. Active apixaban (Eliquis) 5 mg tabletIndications: Paroxysmal atrial fibrillation (CMS/HCC) Take 1 tablet (5 mg) by mouth two times daily. 180 tablet 3 5 02/10/20 26 Active atorvastatin (Lipitor) 80 mg tabletIndications: Hyperlipidemia, unspecified hyperlipidemia type Take 1 tablet (80 mg) by mouth at bedtime. 90 tablet 3 5 02/10/20 26 Active lisinopril 5 mg tabletIndications: Benign hypertensive heart disease 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 Take 1 tablet (5 mg) by mouth once daily as directed. 90 tablet 3 5 Active spironolactone (Aldactone) 25 mg tabletIndications: Benign hypertensive heart disease 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 Take 1 tablet (25 mg) by mouth in the morning. 90 tablet 3 5 02/10/20 26 Active metoprolol succinate XL (Toprol-XL) 50 mg 24 hr tabletIndications: Palpitations Taking 100mg in the AM, 50mg in the PM 270 tablet 3 5 Active dapagliflozin propanediol (Farxiga) 10 mgIndications:Poncho gn hypertensive heart disease 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 Take 1 tablet (10 mg) by mouth once daily as directed. 90 tablet 3 5 02/11/20 26 Active Active Problems Problem Noted Date Diagnosed Date Arthritis 08/16/2024 Celiac disease 08/16/2024 Coronary artery disease invo lving ute mountain coronary artery of ute mountain heart without angina pectoris 08/16/2024 Erectile dysfunction [...] Encounters Date Type Department Care Team Description 03/08/[address] [facility] [address] [place] [address] Melita Ignacio MA Hyperlipidemia, unspecified hyperlipidemia type (Primary Dx) 02/10/[address] [facility] [address] [place] [address] Melita Ignacio MA Benign hypertensive heart disease 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 02/09/[address] [facility] [address] [place] [address] GurpreetDanni MA Paroxysmal atrial fibrillation (CMS/HCC); Hyperlipidemia, unspecified hyperlipidemia type; Benign hypertensive heart disease 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; Palpitations 02/09/[address] [facility] [address] [facility] [place] [address] GurpreetDanni mott MA 02/04/[address] [facility] [address] [place] [address] ProviderRocky MD 12/31/2024 3:00 PM EDT Office Visit [facility] [address] [facility] [place] [address] Dorinda Diaz MD Coronary artery disease involving ute mountain coronary artery of ute mountain heart without angina pectoris (Primary Dx); Cardiomyopathy, [...] 12/31/2024 1:42 PM EDT Plan of Treatment Upcoming Encounters Date Type Department Care Team (Late st Contact Info) Description 04/14/2025 10:00 AM EDT Office Visit [facility] [address] [place] [address] Dorinda Diaz MD [address] [place] [place] [address] Health Maintenance Due Date Last Done Comments [...] Vaccines (1 of 2) 2010 COVID-19 Vaccine (3 - 2023-2 5 season) 2024 10/25/2020, 09/20/2020 Influenza Vaccine (#1) 2025 , 05/23/2021 Adult Tetanus 08/13/2033 08/13/2023 HIB Vaccines [...] Months Insurance [employer] MED[employer]ARE ADVANTAGE Care Teams It Infrastructure Architect Relationship Specialty Start Date End Date Mario Zayas MD [address] [facility] [address] [address] PCP - General Family Medicine 02/09/25
--- OUTSIDE RECORDS SUMMARY | 2025-03-17 10:12 | XMS_ITS | Encounter Summary ---
Author Organization [facility] Address [id number] [address] [place] [address] Care Team Providers Care Garnett Machine Operator Helper Name Role Phone Pauly Santacruz FORENSIC STRUCTURAL ENGINEER-STAFF AIR TACTICAL OFFICER Primary Care Provider [phone] Reason for Visit * Reason Comments Med Change Request Encounter Details Date Type Department Care Team (Late st Contact Info) Description 02/07/2025 Refill [facility] [address] [place] [address] Pablo Zaragoza, VIC-COMMERCIAL LOAN OFFICER [address] [place] [address] Med Change Request Social History Tobacco Use [...] artery disease involving coronary bypass graft of cabazon heart without angina pectoris Hx of CABG Postsurgical aortocoronary bypass status Paroxysmal atrial fibrillation ([facility]-HCC) Atrial fibrillation Aneurysm of ascending aorta without rupture History of maze procedure documented in this encounter Care Teams Garnett Machine Operator Helper Relationship Specialty Start Date End Date Pauly Santacruz APRN-STAFF AIR TACTICAL OFFICER [address] [place] [address] PCP - General Family Medicine 06/24/24 documented as of this encounter
--- OUTSIDE RECORDS SUMMARY | 2025-03-17 10:12 | XMS_ITS | Encounter Summary ---
Author [facility] [id number] [place] [address] Care Team Providers Care Ekg Monitor Tech Name Role Phone Pauly Santacruz GENERAL DOC-MONITOR AND STORAGE BIN TENDER Primary Care Provider [phone] Encounter Details Date Type Department Care Team (Late st Contact Info) Description 06/25/2024 Orders Only [facility] [address] [facility] [address] [place] [address] External, Scanning Provider Social History [...] ECG ORDERABLES Final Result Performing Organization Address City/State/[facility] Co de Phone Number MANUALLY TRANSCRIBED RESULTS * ECG 12 lead (06/25/2024 8:13 AM EDT) us Scanning Provider External ECG ORDERABLES Final Result Performing Organization Address City/State/[facility] Co de Phone Number MANUALLY TRANSCRIBED RESULTS documented in this encounter Visit Diagnoses Not on filedocumented in this encounter Care Teams Ekg Monitor Tech Relationship Specialty Start Date End Date Pauly Santacruz APRN-FNP [address] [place] [address] PCP - General Family Medicine 06/24/24 documented as of this encounter
--- OUTSIDE RECORDS SUMMARY | 2025-03-17 10:12 | XMS_ITS | Encounter Summary ---
Author Organization [facility] Address [id number] [address] [place] [address] Care Team Providers Care Telecommunications Line Installer Name Role Phone Pauly Santacruz STONE DRILLER HELPER-CLERK RATING Primary Care Provider [phone] Reason for Referral * Cardiology (Routine) - Pending Review Specialty Diagnoses / Procedures Referred By Contac t Referred To Contact Diagnoses Paroxysmal atrial fibrillation ([facility]-HCC) Procedures Wireless Telemetry (In Office) Syed Cantu MD [address] [place] [address] Phone: tel: fax: Referral ID Status Reason Start Date Expiration Date V isits Requested Visits Authorized [id number] Pending Review 05/03/2024 05/03/2025 1 1 Encounter Details Date Type Department Care Team (Late st Contact Info) Description 05/03/2024 Orders Only [facility] [address] [facility] [address] [place] [address] Kenisha Manning RN Paroxysmal atrial fibrillation ([facility]-HCC) (Primary Dx) Social History Tobacco Use Types Packs/Day Years Used Date Smoking Tobacco: Former Smokeless Tobacco: Never Alcohol Use Standard Drinks/Week Comments Not Currently 0 (1 standard drink = 0.6 oz pur e alcohol) ocassional Hunger Screening Answer Date Recorded Within the past 12 months we worried whether our food would run out before we got money to buy more. Never True 07/29/2023 Within the past 12 months th e food we bought just didn't last and we didn't have money to get more. Never True 07/29/2023 Sex and Gender Information Value Date Recorded Sex Assigned at Not on file Legal Sex Male 3:47 PM EDT Gender Identity Not on file Sexual Orientation Not on file documented as of this encounter Plan of Treatment Not on file documented as of this encounter Results * Wireless Telemetry (In Office) (05/17/2024 8:17 AM EDT) Anatomical Region Laterality Modality Other Narrative 07/05/2024 12:55 PM EDT 1. This is a 30 day mobile cardiac outpatient telemetry done between 05/25/2024 and 06/19/2024. Time monitored was 15 days and 20 hours and 11 minutes. 2. The baseline and prevailing rhythm was sinus rhythm. The heart rate ranging between 50 and 170 beats per minute with an average heart rate of 79 beats per minute. The maximum heart rate was during a 4 beat run of nonsustained ventricular tachycardia. 3. Rare isolated single PACs with 70 beat run of PAT at a rate of 162 beats per minute. 4. Rare isolated single PVCs and rare ventricular couplets with a 4 beat run of nonsustained ventricular tachycardia at a rate of 170 beats per minute and a 9 beat run at 147 beats per minute. 5. No symptoms reported. Syed Cantu MD [facility] ORDERABLE S Final Result documented in this encounter Visit Diagnoses Diagnosis Paroxysmal atrial fibrillation (CMS-HCC)- Primary Atrial fibrillation Paroxysmal atrial fibrillation (CMS-HCC) Atrial fibrillation documented in this encounter Care Teams Telecommunications Line Installer Relationship Specialty Start Date End Date Pauly Santacruz APRN-CHAO [address] [place] [address] PCP - General Family Medicine 06/24/24 documented as of this encounter
--- OUTSIDE RECORDS SUMMARY | 2025-03-17 10:13 | XMS_ITS | Encounter Summary ---
Author Organization [facility] Address [address] [place] [address] Care Team Providers Care Psych Tech Name Role Phone Mario Zayas MD Primary Care Provider [phone] Encounter Details Date Type Department Care Team (Late st Contact Info) Description 03/08/2025 Orders Only [facility] [address] [place] [address] Melita Ignacio MA Hyperlipidemia, unspecified hyperlipidemia type (Primary Dx) Social History Tobacco Use Types [...] as of this encounter Plan of Treatment Upcoming Encounters Date Type Department Care Team (Late st Contact Info) Description 04/14/2025 10:00 AM EDT Office Visit [facility] [address] [place] [address] Dorinda Diaz MD [address] [place] [address] Scheduled Orders Name Type Priority Associated Diagnoses Orde r Schedule AST Lab Routine Hyperlipidemia, unspecified hyperlipidemia type Expected: 03/08/2025 (Approximate), Expires: 03/08/2026 ALT Lab Routine Hyperlipidemia, unspecified hyperlipidemia type Expected: 03/08/2025 (Approximate), Expires: 03/08/2026 Lipid panel Lab Routine Hyperlipidemia, unspecified hyperlipidemia type Expected: 03/08/2025 (Approximate), Expires: 03/08/2026 documented as of this encounter Visit Diagnoses Diagnosis Hyperlipidemia, unspecified hyperlipidemia type- Primary documented in this encounter Care Teams Psych Tech Relationship Specialty Start Date End Date Mario Zayas MD [address] [place] [address] PCP - General Family Medicine 02/09/25 documented as of this encounter
--- OUTSIDE RECORDS SUMMARY | 2025-03-17 10:13 | XMS_ITS | Clinical Summary ---
Author Organization [facility] Address [id number] [address] [place] [address] Care Team Providers Care Lockstitch Back Maker Name Role Phone Pauly Santacruz HOME COORDINATOR-RECTIFIER OPERATOR Primary Care Provider [phone] Allergies Active Allergy Reactions Criticality Noted Date Comments Gluten 05/08/2022 Isosorbide Mononitrate Headache 06/21/2022 Medications omeprazole (PriLOSEC) 40 mg capsule Take 1 capsule (40 mg total) by mouth in the morning. 03/19/20 22 Active gabapentin (NEURONTIN) 600 mg tablet Take 1 tablet (600 mg total) by mouth 3 (three) times a day. 03/30/20 22 Active DALIRESP 500 mcg tablet Take 1 tablet (500 mcg total) by mouth in the morning. 03/15/20 22 Active fluticasone-umec lidin-vilanter (TRELEGY ELLIPTA) 200-62.5-25 mcg blister with device 1 puff in the morning. 03/15/20 22 Active ipratropium-albu teroL (DUONEB) 0.5 mg-3 mg(2.5 mg base)/3 mL nebulizer 02/21/20 22 Active ascorbic acid, vitamin C, (VITAMIN C) 1000 mg tablet Take 1 tablet (1,000 mg total) by mouth in the morning. Active naproxen-pseudoe phedrine 220-120 mg tablet extended release 12 hr Take by mouth. Activ e albuterol (PROVENTIL HFA;VENTOLIN HFA) 90 mcg/actuation inhaler Inhale 2 puffs every 6 (six) hours as needed for wheezing. Active albuterol (PROVENTIL) 5 mg/mL nebulizer solution Inhale 0.5 mL (2.5 mg total) by nebulization every 4 (four) hours as needed for wheezing. Active aspirin 81 mgIndications:Co ronary artery disease involving coronary bypass graft of ely shoshone heart without angina pectoris,Paroxys mal atrial fibrillation (CMS-HCC),Aneury sm of ascending aorta without rupture,Hx of CABG,History of maze procedure Take 1 tablet (81 mg total) by mouth in the morning. 90 tablet 3 07/25/20 22 Active oxygen Inhale continuously. Active cyanocobalamin (vitamin [...] XL (TOPROL XL) 50 mg 24 hr tabletIndication s:Coronary artery disease involving coronary bypass graft of ely sh[place] heart without angina pectoris,Hx of CABG,Paroxysmal atrial fibrillation (CMS-HCC),Aneury sm of ascending aorta without rupture,History of maze procedure Take 100 mg in the morning and 50 mg at night 270 tablet 3 06/25/20 23 Active theophylline (BRYAN-24) 400 MG 24 hr capsule Take 1 capsule (400 mg total) by mouth in the morning. Active atorvastatin (LIPITOR) 40 mg tabletIndication s:Coronary artery disease involving coronary bypass graft of ely [place] heart without angina pectoris,Hx of CABG,Paroxysmal atrial fibrillation (CMS-HCC),Aneury sm of ascending aorta without rupture,History of maze procedure Take 1 tablet (40 mg total) by mouth in the morning. 90 tablet 1 02/19/20 24 Active apixaban (ELIQUIS) 5 mg tablet Take 1 tablet (5 mg total) by mouth in the morning and 1 tablet (5 mg total) before bedtime. 180 tablet 1 02/19/20 24 Active nitroglycerin (NITROSTAT) 0.4 MG SL tabletIndication s:Coronary artery disease involving coronary bypass graft of ely sh[place] heart without angina pectoris,Paroxys mal atrial fibrillation (CMS-HCC),Aneury sm of ascending aorta without rupture,Hx of CABG,History of maze procedure DISSOLVE 1 TABLET UNDER THE TONGUE NEEDED FOR CHEST PAIN- MAY REPEAT EVERY 5 MINUTES IF NEEDED ( MAX 3 DOSES.- IF NO RELIEF CALL 911) 25 tablet 11 08/03/20 24 Active lisinopriL (PRINIVIL,ZESTRI L) 5 mg tabletIndication s:Coronary artery disease involving coronary bypass graft of ely [place] heart without angina pectoris,Hx of CABG,Paroxysmal atrial fibrillation (CMS-HCC),Aneury sm of ascending aorta without rupture,History of maze procedure Take 1 tablet (5 mg total) by mouth in the morning. FINAL REFILL UNTIL LABS COMPLETED. 90 tablet 02/12/20 25 Active Active Problems Problem Noted Date Diagnosed Date Mixed hyperlipidemia 06/24/2024 Primary hypertension 06/24/2024 Left ventricular dysfunction 06/24/2024 Coronary artery disease invo lving coronary bypass graft of ely shosh[place] heart without angina pectoris 05/20/2022 Paroxysmal atrial fibrillation 05/20/2022 Thoracic aortic aneurysm without rupture 022 Hx of CABG 05/20/2022 History of maze procedure 05/20/2022 Encounters Date Type Department Care Team Description 02/07/2025 Refill [facility] [address] [place] [address] Pablo Zaragoza APRN-AVELINO Med Change Request from Last 3 Months Family History Medical [...] on file Insurance [employer] MEDICARE Care Teams Lockstitch Back Maker Relationship Specialty Start Date End Date Pauly Santacruz APRN-CHAO [address] [place] [address] PCP - General Family Medicine 06/24/24
--- NOTE | 2025-03-17 10:30 | NM_ITS ---
Patient Name: ELISE TABOR MR#: [id number] : 1960 Exam Date: 03/17/2025 Ordering Doctor: DR. BENNY FUENTES M.D. RADIOLOGY REPORT PROCEDURE: NM HAIM PERF SPECT REST STR COMPARISON: None. INDICATIONS: DYSPNEA, CORONARY ARTERY DISEASE TECHNIQUE: Exam Description: Stress/Rest two day protocol gated SPECT Rest Imagin.7 mCi Tc-99m Cardiolite IV on 03/17/2025 Stress Imaging 24.5 mCi Tc-99m Cardiolite IV on 03/18/2025 Exercise Protocol: 0.4 mg Lexiscan given IV Heart Rate (bpm): Rest: 76 Max: 101 PMHR: 64 Blood Pressure: Rest: 134/82 Max: 138/82 Symptoms: Rest and peak stress ECG findings were pending and the exercise portion of the study was pending per attending physician [facility] . For more details please see separate cardiac stress test report. FINDINGS: QUALITY OF STUDY: Fair PERFUSION DEFECT: LOCATION: Mid and apical inferior SIZE: Medium SEVERITY: Moderate TYPE: Reversible WALL MOTION: Normal LV SIZE: EDV:150 mL. TID / TCD: 1.5 LVEF: Calculated EF 54%. SUMMARY: Abnormal myocardial perfusion imaging study CONCLUSION: Abnormal myocardial perfusion stress test showing evidence of mid and apical inferior ischemia Transient ischemic dilatation, TID 1.5 which may indicate severe three-vessel coronary artery disease Normal left ventricle systolic function, ejection fraction 54% Dilated left ventricle EKG portion of stress test is reported separately Dictated by: Benny Fuentes MD on 03/18/2025 at 19:18 Approved by: Benny Fuentes MD on 03/18/2025 at 19:22
--- NOTE | 2025-03-17 14:00 | CA_ITS ---
Patient Name: ELISE TABOR MR#: [id number] : 1960 Exam Date: 03/17/2025 Ordering Doctor: DR. BENNY FUENTES M.D. ECHOCARDIOGRAM REPORT PROCEDURE: CA ECHO W/ CON INDICATIONS: Ejection fraction, CABGx5, COPD, emphysema COMPARISON: None. DESCRIPTION: COMPLETE ECHOCARDIOGRAM Real-time transthoracic echocardiography with 2D, M-mode, spectral and color flow Doppler performed. QUALITY: Lumason contrast was administered due to suboptimal imaging for left ventricular opacification to improve delineation of endocardial boarders. LEFT VENTRICLE: Normal chamber size. Mildly thickened septal wall. Normal left ventricle systolic function without wall motion abnormalities calculated left ventricular ejection fraction is 61% LV EF: Normal left ventricular ejection fraction, (>55%). DIASTOLIC: Normal diastolic function ATRIAL SEPTUM: Visually appears intact. LEFT ATRIUM: Normal chamber size. RIGHT ATRIUM: Mild dilatation. RIGHT VENTRICLE: Normal chamber size. Normal right ventricular systolic function. TRICUSPID VALVE: Normal mobility and thickness. No stenosis with trivial regurgitation. Doppler studies reveal mildly (35-45) elevated right sided pressures.RVSP 37 mmHg MITRAL VALVE: Normal mobility and thickness. No evidence of mitral valve stenosis. Mild mitral annular calcification. No mitral regurgitation. AORTIC VALVE: Normal trileaflet appearance. No visible sclerosis. Normal leaflet mobility. No evidence of aortic valve stenosis. Mild aortic regurgitation. AORTIC ROOT: Normal diameter and appearance. PULMONIC VALVE: Not well visualized. No stenosis. No regurgitation. PERICARDIUM: No evidence of pericardial effusion. IVC: Not well visualized. PLEURA: CONCLUSION: Technically difficult study, Lumason was administered for better delineation of the endocardium. Normal left ventricle systolic function without wall motion abnormalities, ejection fraction 61% Normal left ventricle diastolic function Normal right ventricle size and systolic function Mildly increased right atrial pressure, RVSP 37 mmHg Mild aortic regurgitation Mild mitral annulus calcification Adult Echocardiography Procedure Report Left Ventricle LVEDD (3.7 - 5.6 cm): 4.29 cm LVESD (2.2 - 4.0 cm): 3.04 cm LVIVS thickness (0.6 - 1.2 cm): 1.26 cm LVPW thickness (0.5 - 1.0 cm): 1.11 cm e': 0.11 m/s E - e': 4.18 LVOT Max Gradient: 2.76 mm[Hg] LVOT Area (cm2): 0.83 m/s Peak Velocity (LVOT): 0.83 m/s Mean Velocity (LVOT): LVOT Diameter 2.23 cm Left Ventricular Ejection Fraction: 61.15 % Left Atrium LA Volume Index (2D A2C): Left Atrium Systolic Dimension: 3.47 cm Mitral Valve MV E to A Ratio: 0.78 MV Max Gradient: MV Mean Gradient: Mitral Valve A-Wave Peak Velocity: 0.58 m/s Mitral Valve E-Wave Peak Velocity: 0.45 m/s Cardiovascular Orifice Area: Right Ventricle RV Internal Diastolic Dimension: Aorta AO Root Diam: 3.28 cm Ascending Ao Diam: Aortic Valve AoV Area (Peak Roger): 3.62 cm2, 3.62 cm2 AoV Area (VTI): Deceleration [place]: Pressure Half-Time: Peak Velocity(Antegrade Flow): 0.90 m/s Peak Gradient(Antegrade Flow): 3.21 mm[Hg] Mean Velocity(Antegrade Flow): Mean Gradient(Antegrade Flow): Velocity Time Integral: Tricuspid Valve Peak Velocity (Regurgitant Flow): 2.69 m/s Peak Velocity: Pulmonic Valve Mean Gradient: Mean Velocity: Peak Velocity: 1.05 m/s Peak Gradient: 4.38 mm[Hg] Right Atrium Right Atrium Systolic Pressure: Dictated by: Benny Fuentes MD on 03/18/2025 at 18:35 Approved by: Benny Fuentes MD on 03/18/2025 at 18:45
[2025-03-17] MEDS: SULFUR HEXAFLUORIDE MICROSPHR 25 MG/5 ML VIAL 10 MG IV (16:19)
--- OUTSIDE RECORDS SUMMARY | 2025-03-17 16:49 | XMS_ITS | Patient Health Record ---
Author Organization [facility] Main Address [address] [place] [address] Care Team Providers Care Computer Systems Manager Name Role Phone Jaquan Dowell MD Primary Care Provider Unavailab le Reason For Referral No Information Medications Medication SIG (Take, Route, Frequency, Duration) Notes Start Date End Date Status Lisinopril 5 MG Take 1 tablet by mouth daily ORAL 11/17/2015 Active Lipitor 20 MG 1 tablet by mouth daily at bedtime ORAL 02/01/2016 Active Cymbalta 60 MG Take one by mouth daily ORAL 02/01/2016 Active Ferrous Sulfate 325 (65 Fe) MG one tablet TID ORAL 08/19/2012 Active Atenolol 25 MG Take one by mouth daily ORAL 02/01/2016 Active B-12 1000 MCG 1 tab QD ORAL 08/19/2012 Active CALTRATE 600+D PLUS 600-400 MG-UNIT TABS take three times daily *please review for potential update for e-prescription and drug interaction check* 10/01/2012 Active Vitamin C 1000 MG daily ORAL 11/02/2013 Active Symbicort 80-4.5 MCG/ACT 2 puffs twice daily INHALATION 02/01/2016 Active Spiriva HandiHaler 18 MCG 2 puffs twice daily INHALATION 02/01/2016 Active ProAir HFA 108 (90 Base) MCG/ACT use every 4 hours INHALATION 08/19/2012 Active Plavix 75 MG Take one by mouth daily ORAL 02/01/2016 Active Magnesium Oxide 400 (240 Mg) MG Take one (1) tablet by mouth twice a day ORAL 11/17/2015 Active Problems Problem Type SNOMED Code ICD Code Onset Dates Problem Status W/U Status Risk Notes Problem Neoplasm of uncertain behavior of trachea, 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, 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/21/19 14 Active confirmed Problem Iron deficiency anemia (48983742) Iron deficiency anemia, unspecified (D50.9) 03/09/20 13 Active confirmed Problem Testicular hypofunction (154370568) Testicular hypofunction (E29.1) 11/02/19 14 Active confirmed Problem Sleep apnea (36779296) Sleep apnea, unspecified (G47.30) 11/26/19 14 Active confirmed Problem Hereditary disorder of nervous system (194878838) Hereditary and idiopathic neuropathy, unspecified (G60.9) 12/04/19 14 Active confirmed Problem Angina pectoris (861018851) Angina pectoris, unspecified (I20.9) 11/09/19 16 Active confirmed Problem Cardiomyopathy (41865958) Cardiomyopathy, unspecified (I42.9) 08/27/20 12 Active confirmed Problem Heart failure (40028840) Heart failure, unspecified (I50.9) 03/09/20 14 Active confirmed Problem Dilatation of aorta (51421143) Thoracic aortic ectasia (I77.810) 12/11/19 16 Active confirmed Problem Celiac disease (298071681) Celiac disease (K90.0) Active confirmed Problem Intestinal malabsorption (123796979) Intestinal malabsorption, unspecified (K90.9) 09/27/19 14 Active confirmed Problem Hemoptysis (12521113) Hemoptysis (R04.2) 12/21/19 14 Active confirmed Problem Shortness of breath (947767479) Shortness of breath (R06.02) 11/09/19 16 Active confirmed Problem Fatigue (98798594) Other fatigue (R53.83) 11/09/19 14 Active confirmed Problem Solitary pulmonary nodule (035535690) Solitary pulmonary nodule (R91.1) 12/31/19 14 Active confirmed Problem Abnormal results of cardiovascular function studies (328846848) Abnormal result of other cardiovascular function study (R94.39) 11/30/19 16 Active confirmed Plan Of Treatment No Information Insurance Providers Payer Name Payer Address Payer Phone Subscriber Number Group Number Insured Name Patient Relationship to Insured Coverage Start Date Coverage End Date [employer] [address] [address] [place] [phone] [id number] Nikunj Causey Self - patient is the insured Medical (General) History Surgical History Surgery Date(Month/Year) 3 finger amputation,hernia, Total Hip Ar throplasty, Past SurgHx Till:04/22/2014
--- OUTSIDE RECORDS SUMMARY | 2025-03-17 16:49 | XMS_ITS | Clinical Summary ---
Author Organization [facility] Address [address] [place] [address] Care Team Providers Care Polyethylene Bag Machine Operator Name Role Phone Pauly Santacruz NATURAL RESOURCE MANAGER Unavailable Allergies Active Allergy Reactions Criticality Noted Date Comments Gluten Meal GI intolerance Low 05/08/2022 Isosorbide Nitrate Headache Low 06/21/2022 Medications albuterol HFA 90 mcg/act inhaler Inhale 2 puffs every 6 (six) hours if needed for wheezing or shortness of breath. Active albuterol (5 MG/ML) 0.5% nebulizer solution Take 2.5 mg by nebulization every 4 (four) hours if needed for wheezing or shortness of breath. Active ascorbic acid (Vitamin C) 1000 MG tablet Take 1,000 mg by mouth in the morning. Active aspirin 81 MG EC tablet Take 81 mg by mouth in the morning. 07/25/20 22 Active atorvastatin (Lipitor) 40 MG tablet Take 40 mg by mouth at bedtime. Active Trelegy Ellipta 100-62.5-25 MCG/ACT aerosol powder Inhale 1 puff in the morning. 03/15/20 22 Active Fluticasone-Umecl idin-Vilant 200-62.5-25 MCG/ACT aerosol powder Inhale 1 puff 1 (one) time each day. 11/20/19 23 Active ipratropium-albut vignesh (Duo-Neb) 0.5-2.5 mg/3 mL nebulizer solution Take 3 mL by nebulization in the morning and 3 mL at noon and 3 mL in the evening and 3 mL before bedtime. 02/21/20 22 Active isosorbide mononitrate ER (Imdur) 30 MG 24 hr tablet Take 30 mg by mouth in the morning. 06/13/20 22 Active lisinopril 5 MG tablet Take 5 mg by mouth in the morning. Active metoprolol succinate XL (Toprol-XL) 50 MG 24 hr tablet Take 50 mg by mouth in the morning and 50 mg before bedtime. Active nitroglycerin (Nitrostat) 0.[address] 0.4 mg under the tongue every 5 (five) minutes if needed for chest pain. 07/25/20 22 Active omeprazole (PriLOSEC) [address] capsule Take 40 mg by mouth in the morning. 03/19/20 22 Active pseudoephedrine-N aproxen Na ER 120-220 MG tablet sustained-release 12 hour Take 1 tablet by mouth in the morning and 1 tablet before bedtime. Active Daliresp 500 MCG tablet Take 500 mcg by mouth in the morning. 03/15/20 22 Active theophylline ER (Uniphyl) 400 MG 24 hr tablet Take 400 mg by mouth in the morning and 400 mg before bedtime. 01/17/20 23 Active ofloxacin (Floxin) 0.3 % otic solutionIndicatio ns:Otorrhea of right ear Administer 5 drops into the right ear in the morning and 5 drops before bedtime. 10 mL 02/18/20 23 Active acetaminophen-cod eine (Tylenol w/ Codeine #3) 300-30 MG tablet take 1 tablet by mouth every 6 hours NEEDED FOR PAIN for 5 days 06/12/20 23 Active apixaban (Eliquis) 5 MG tablet Take 5 mg by mouth in the morning and 5 mg in the evening. 06/04/20 23 Active cholecalciferol (Vitamin D-3) 25 MCG (1000 UT) tablet Take 1,000 Units by mouth in the morning. Active cholecalciferol (Vitamin D-3) 50 MCG (2000 UT) capsule 1 capsule 1 (one) time each day at the same time. Active cyanocobalamin (Vitamin B-12) 1000 MCG tablet Take 1,000 mcg by mouth in the morning. Active cyanocobalamin (Vitamin B-12) 500 MCG tablet 1 (one) time each day at the same time. Active dicyclomine (Bentyl) 20 MG tablet take 1 tablet by mouth three times a day if needed for abdominal pain 04/01/20 23 Active ferrous sulfate 325 (65 Fe) MG EC tablet Take 65 mg by mouth in the morning. Take with meals. Active Ann Marie 500 MG capsule as directed Orally Active Lecithin 1200 MG capsule Take 1 capsule every day by oral route. Active naproxen sodium (Aleve) 220 MG tablet every 12 (twelve) hours. Active saw palmetto (Serenoa repens) 450 MG capsule as directed Orally Active SUMAtriptan (Imitrex) 100 MG tablet PLEASE SEE ATTACHED FOR DETAILED DIRECTIONS Active zinc gluconate 50 MG tablet 1 (one) time each day at the same time. Active azithromycin (Zithromax) 250 MG tablet Take 250 mg by mouth Daily Active predniSONE (Deltasone) 20 MG tablet Take 20 mg by mouth Daily Active pregabalin (Lyrica) 150 MG capsuleIndication s:DDD (degenerative disc disease), lumbar,Lumbosacra l radiculopathy Take 1 capsule (150 mg) by mouth in the morning and 1 capsule (150 mg) in the evening and 1 capsule (150 mg) before bedtime. 270 capsule 12/21/19 25 Active Active Problems Problem Noted Date Diagnosed Date Neuropathy 01/20/2024 DDD (degenerative disc disease), lumbar 01/20/20 24 Overview (01/20/2024): The patient is a 62 year old [...] has had no benefit with gabapentin increase. Paresthesia 01/20/2024 Coronary artery disease invo lving coronary bypass graft of [place] heart without angina pectoris 05/20/2022 History of maze procedure 05/20/2022 Hx of CABG 05/20/2022 Paroxysmal atrial fibrillation 05/20/2022 Thoracic aortic aneurysm without rupture 022 Resolved Problems Problem Noted Date Diagnosed Date Resolved Date Peripheral polyneuropathy 06/27/2023 Celiac disease 03/04/2019 06/27/2023 Cervicalgia 04/08/2018 06/27/2023 Headache in back of head 04/08/2018 Chronic obstructive lung disease 01/22/2018 06/27/2023 Sinus tachycardia 01/22/2018 06/27/2023 Encounters Date Type Department Care Team Description 12/27/2024 10:40 AM EDT Office Visit [facility] [address] [place] [phone] Linsey Hall PA Degeneration of intervertebral disc of lumbar region with discogenic back pain and lower extremity pain (Primary Dx); Lumbosacral radiculopathy; Neck pain; Tremor; Chronic daily headache 12/27/2024 Bamboo flowsheet [facility] [address] [phone] Barbara Tim PA 12/20/2024 Refill [facility] [address] [place] [phone] Leanne Mancia MA DDD (degenerative disc disease), lumbar (Primary Dx); Lumbosacral radiculopathy 12/20/2024 Travel from Last 3 Months Immunizations Immunization Administration Dates Next Due Influenza, High Dose Seasonal, Preservative Free 05/23/2021 Pfizer Purple Cap SARS-CoV-2 Vaccination 021,09/20/2020 Family History Medical History Relation Name Comments Heart disease Father Cancer Mother Heart disease Mother Hypertension Mother Diabetes Sibling Relation Name Status Comments Father Mother Sibling Alive Social History Tobacco Use Types Packs/Day Years Used Date Smoking Tobacco: Former Cigarettes 2 35 0 09/08/1974 - 09/08/2009 Smokeless Tobacco: Never Alcohol Use Standard Drinks/Week Comments Never 0 (1 standard drink = 0.6 oz pur e alcohol) ocassionally Sex and Gender Information Value Date Recorded Sex Assigned at Male 02/21/2023 9:38 AM EDT Legal Sex Male 9:13 AM EDT Gender Identity Male 02/21/2023 9:38 AM EDT Sexual Orientation Not on file Last Filed Vital Signs Vital Sign Reading Time Taken Comments Blood Pressure 142/82 12/27/2024 10:42 AM EDT Pulse 75 12/27/2024 10:42 AM EDT Temperature - - Respiratory Rate 16 12/27/2024 10:42 AM EDT Oxygen Saturation 94% 12/27/2024 10:42 AM EDT Inhaled Oxygen Concentration - - Weight 113 kg (250 lb) 12/27/2024 10:42 AM EDT Height 177.8 cm (5' 10 ) 12/27/2024 10:42 AM EDT Body Mass Index 35.87 12/27/2024 10:42 AM EDT Plan of Treatment Health Maintenance Due Date Last Done Comments CT Colonography 1960 Colonoscopy 1960 Colorectal Cancer Screening 1960 FIT-DNA 1960 FIT 1960 FOBT 1960 Sigmoidoscopy 1960 Influenza Vaccine (#1) 2025 08/13/2023, 2020 Insurance [employer] Care Teams Polyethylene Bag Machine Operator Relationship Specialty Start Date End Date Pauly Santacruz NP [address] [place] [phone] Referring Physician Family Medicine 03/15/24
--- OUTSIDE RECORDS SUMMARY | 2025-03-17 16:50 | XMS_ITS | Clinical Summary ---
Author Organization [facility] Address [address] [place] [address] Phone Care Team Providers Care Quilt Maker Name Role Phone Unavailable Primary Care Provider [...]
--- OUTSIDE RECORDS SUMMARY | 2025-03-17 16:50 | XMS_ITS | Clinical Summary ---
Author Organization [facility] tem Address [id number] [address] [place] [address] Care Team Providers Care Sql Database Developer Name Role Phone Pauly Santacruz MANAGER LOGISTIC-COMPLAINTS COORDINATOR Primary Care Provider [phone] Allergies Active Allergy Reactions Criticality Noted Date [...] artery disease involving coronary bypass graft of [place] heart without angina pectoris,Paroxys mal atrial fibrillation [...] artery disease involving coronary bypass graft of [place] heart without angina pectoris,Hx of CABG,Paroxysmal atrial [...] artery disease involving coronary bypass graft of [place] heart without angina pectoris,Hx of CABG,Paroxysmal atrial [...] artery disease involving coronary bypass graft of [place] heart without angina pectoris,Paroxys mal atrial fibrillation [...] artery disease involving coronary bypass graft of [place] heart without angina pectoris,Hx of CABG,Paroxysmal atrial [...] disease invo lving coronary bypass graft of [place] heart without angina pectoris 05/20/2022 Paroxysmal atrial fibrillation 05/20/2022 Thoracic aortic aneurysm without rupture 022 Hx of CABG 05/20/2022 History of maze procedure 05/20/2022 Encounters Date Type Department Care Team Description 02/07/2025 Refill [facility] [address] [place] [address] Pablo Zaragoza APRN-AVELINO Med Change [...] on file Insurance [employer] MED[employer]ARE Care Teams Sql Database Developer Relationship Specialty Start Date End Date Pauly Santacruz APRN-CHAO [address] [place] [address] PCP - General Family Medicine 06/24/24
--- OUTSIDE RECORDS SUMMARY | 2025-03-17 16:50 | XMS_ITS | Patient Health Record ---
Author Organization [facility] vices Address [address] [place], [place] [id number] Care Team Providers Care Accounts Administrator Name Role Phone Pauly Santacruz Primary Care Provider Charis Casas Unavailable [phone] Allergies No Known Allergies Results Component Value Reference Range Notes COMPREHENSIVE METABOLIC PANE L WITH GFR Reviewed date:05/02/2024 08:35:39 PM Interpretation: Performing Lab: Notes/Report: GLUCOSE 125 70-99 mg/dL BUN 19 8-23 mg/dL CREATININE, BLOOD 0.91 0.80-1.40 mg/dL eGFR (2020 CKD-EPI) 94 >60 mL/min/1.73 CALCIUM 9.9 8.5-10.5 mg/dL SODIUM 141 133-146 meq/L POTASSIUM 4.6 3.5-5.4 meq/L CHLORIDE 102 95-107 meq/L CO2 34 19-31 meq/L ANION GAP 5.0 7.0-16.0 meq/L T. BILIRUBIN 0.3 <=1.2 mg/dL ALK PHOS 67 40-123 U/L AST-SGOT 21 9-50 U/L ALT-SGPT 24 5-50 U/L T. PROTEIN 6.4 6.1-8.3 g/dL ALBUMIN 4.2 3.5-5.2 g/dL [facility] [address] [place] [address] CLIA No. [id number] CAP Accreditation No. [id number] Craft Worker: Elizabeth Miner M.D. LIPID PANEL WITH REFLEX TO D IRECT LDL Reviewed date:09/18/2024 12:27:51 PM Interpretation: Performing Lab: Notes/Report: CHOLESTEROL 163 100-199 mg/dL TRIGLYCERIDES 163 20-149 mg/dL VLDL-CHOL, CALCULATED 33 <30 mg/dL HDL-CHOL 42 >=40 mg/dL LDL-CHOL, CALCULATED 88 <130 mg/dL ADULT LDL CHOLESTEROL CLASSIFICATION <100mg/dL Optimal 100-129 Near/Abov e Optimal 130-159mg/dL Borderlin e High >160mg/dL High Risk Desirable range <100 mg/dL for patients with CHD or diabetes and <70 mg/dL for diabetic patients with known heart disease. Direct LDL is recommended for patients with triglycerides >400. LDL/HDL 2.1 <5.0 LDL/HDL RATIO MALE FEMALE below average risk <2.3 <2.3 average risk <5.0 <4.1 moderate risk <7.1 <5.6 high risk >7.1 >5.6 CHOL/HDL 3.9 2.0-4.5 CBC W/AUTO DIFF Reviewed date:09/18/2024 12:27:51 PM Interpretation: Performing Lab: Notes/Report: WBC 8.1 3.6-11.0 THDS/CMM RBC 4.22 4.40-6.10 MILL/CMM HGB 13.7 13.0-18.0 G/DL HCT 41.5 39-52 % MCV 98 75-100 fL MCH 32.5 26.0-32.0 pg MCHC 33.0 32.0-35.0 g/dl RDW 12.7 11.2-14.8 % PLATELET 164 140-440 THOUS/CMM NEUTROPHILS 83.5 45-75 % LYMPHOCYTES 10.7 20-45 % MONOCYTES 3.6 0-13 % EOSINOPHILS 0.2 0-5 % BASOPHILS 0.6 0-2 % IMMATURE GRAN 1.4 0-2 % ABS NEUTROPHILS 6.76 1.9-8.0 K/uL ABS LYMPHOCYTES 0.87 0.9-5.2 K/uL ABS MONOCYTES 0.29 0.1-1.0 K/uL ABS EOSINOPHILS 0.02 0.0-0.80 K/uL ABS BASOPHILS 0.05 0.0-0.2 K/uL ABS IMMATURE GRAN 0.11 0.00-0.06 K/uL UNLESS OTHERWISE INDICATED, ALL TESTING PERFORMED AT: [facility] [employer] [address] [place] [address] DEPUTY CORONER: SISSY PEARSON M.D. CLIA NUMBER [id number] CAP ACCREDITATION AUID [id number] AMYLASE Reviewed date:09/18/2024 12:27:51 PM Interpretation: Performing Lab: Notes/Report: AMYLASE 50 31-125 U/L ANTI NUCLEAR AB REFLEX TITER n ABID Reviewed date:09/18/2024 12:27:51 PM Interpretation: Performing Lab: Notes/Report: ANTI NUCLEAR ANTIBODIES POSITIVE Negative HARRIETT by Multiplex Flow Immunoassay is intended for the qualitative screening of specific antinuclear antibodies (HARRIETT), the quantitative detection of antibody to dsDNA, and the semi-quantitative detection of ten (10) separate antibody assays (Chromatin, Ribosomal P, SS-A, SS-B, Sm, SmRNP, CHANGE LEAD, Scl-70, Faustina-1, and Centromere B) in human serum. COMPREHENSIVE METABOLIC PANE L (AMA) Reviewed date:09/18/2024 12:27:51 PM Interpretation: Performing Lab: Notes/Report: GLUCOSE 117 70-100 mg/dL SODIUM 142 135-148 mmol/L POTASSIUM 4.5 3.5-5.4 mmol/L CHLORIDE 103 96-107 mmol/L CO2 29 18-32 mmol/L BUN 23 8-23 mg/dL CREATININE, BLOOD 0.86 0.67-1.30 mg/dL eGFR (2020 CKD-EPI) 97 >59 mL/min/1.73m2 CALCIUM 9.8 8.6-10.5 mg/dL T. PROTEIN 6.4 6.0-8.3 g/dL ALBUMIN 4.3 3.5-5.2 g/dL GLOBULIN 2.1 1.8-3.8 g/dL A/G RATIO 2.0 1.0-2.5 RATIO ALK PHOS 61 39-118 U/L AST-SGOT 16 9-50 U/L ALT-SGPT 21 5-41 U/L T. BILIRUBIN 0.5 <1.3 mg/dL HARRIETT/SEBASTIAN AB ID PANEL Reviewed date:09/18/2024 12:27:51 PM Interpretation: Performing Lab: Notes/Report: DNA DS ANTIBODY 9 <10 IU/mL Interpretation of dsDNA Antibody results: < or = 4: Negative 5 - 9: Indeterminate > or =10: Positive FLORES (SM) ANTIBODY 0.4 <1.0 AI CHROMATIN AB <0.2 <1.0 AI SJOGREN'S SS-A ANTIBODY <0.2 <1.0 AI SJOGREN'S SS-B ANTIBODY <0.2 <1.0 AI CHANGE LEAD IGG <0.2 <1.0 AI SCLERODERMA AB <0.2 <1.0 AI FAUSTINA-1 ANTIBODY <0.2 <1.0 AI CENTROMERE B ANTIBODY <0.2 <1.0 AI RIBOSOMAL P PROTEIN AB 0.4 <1.0 AI HARRIETT TITER Reviewed date:09/18/2024 12:27:51 PM Interpretation: Performing Lab: Notes/Report: HARRIETT PATTERN (REPORTED TITER) <1:80 <1:80 TITER Anti-Nuclear Antibodies by IFA negative for homogeneous, speckled, nucleolar and centromere patterns. Reason For Referral Reason eval and treat Diagnosis 1 Shoulder pain, left (M25.512) Referral Organization [place] Referring Provider First Name Pauly Referring Provider Last Name Noam Referring Provider Speciality Nurse Prac titioner Referred Provider [facility] Referred Provider Specialty Orthopedics Referral Priority Routine Medications Medication SIG (Take, Route, Frequency, Duration) Notes Start Date End Date Status Omeprazole 40 MG 1 capsule 30 minutes before morning meal Orally Once a day for 90 days Active Metoprolol Succinate ER 100 MG 1 tablet Orally two times a day , 2 tab AM, 2 tabsnight Active Zinc 50 MG 1 tablet Orally Once a day Active Ipratropium-Albuterol 0.5-2.5 (3) MG/3ML 3 mL as needed Inhalation every 6 hrs Active Aspirin 81 MG 1 tablet Orally Once a day Active Ondansetron 8 MG 1 tablet on the tongue and allow to dissolve as needed Orally Once a day for 30 days 09/15/2024 Active predniSONE 10 MG 1 tablet Orally Once a day Active Sodium Chloride (Inhalant) 3 ml via nebulizer 2x daily Active Pregabalin ER Active Eliquis 5 MG as directed Orally Active Azithromycin 250 MG as directed Orally Active Atorvastatin Calcium 40 MG 1 tablet Orally Once a day Active Vitamin C 1000 MG 1 tablet Orally Once a day Active Theophylline ER 400 MG 1 tablet Orally Once a day Active Vitamin D 50 MCG (1999 UT) 1 tablet Orally Once a day Active Iron 65 MG 1 tablet Orally Once a day Not-Taking Roflumilast 500 MCG 1 tablet Orally Once a day Active Meloxicam 15 MG 1 tablet Orally Once a day for 90 days Active Ventolin HFA 90 MCG/ACT 2 puff as needed Inhalation every 4 hrs Active Vitamin B12 1000 MCG 1 tablet Orally Once a day Not-Taking Nitroglycerin 0.4 MG as directed Sublingual Active Pregabalin 150 MG 1 capsule Oral three times daily for 30 days Active Trelegy Ellipta 100-62.5-25 MCG/INH 1 puff Inhalation Once a day Active Lisinopril 5 MG 1 tablet Orally Once a day for 90 Days Active SUMAtriptan Succinate 100 MG 1 tablet at least 2 hours between doses as needed Orally Daily for 5 days 09/25/2023 Not-Taking DuoNeb 0.5-2.5 (3) MG/3ML 3 ml as needed Inhalation every 6 hrs Not-Taking Immunizations Vaccine Route Administration Date Status Comme nts *Zvclsbbzt-Wqmfzgpgs-Mbdzz te IM Intramuscular 08/13/2023 Administered *Tdap (Adacel)-Private IM Intramuscular 08/13/2023 Adminis tered Social History Tobacco Use: Social History Observation Description Date Details (start date - stop date) Former Smoker 09/08/1976 - 09/08/2009 Sex Assigned At : Social History Observation Description Sex Assigned At Male Household Question Answer Notes Number of adults in household: 2 Tobacco Use/Smoking Question Answer Notes Tobacco use: former smoker patient enter ed data When did you start smoking? 09/08/1976 deann estrada entered data When did you stop smoking? 09/08/2009 juancarlos so entered data How long has it been since you last smoked? 5-10 years patient entered data Alcohol Screen (Audit-C) Question Answer Notes Did you have a drink containing alcohol in the p ast year? Yes Points 0 Interpretation Negative CAGE-AID Questionnaire (2018 Edition) Question Answer Notes Have you ever felt that you ought to cut down on your drinking or drug use? No patient entered data Have people annoyed you by c riticizing your drinking or drug use? No patient entered data Have you ever had a drink or used drugs first thing in the morning to steady your nerves or to get rid of a hangover? No patient entered data CAGE-AID Score 0 Interpretation Negative PRAPARE Question Answer Notes Date Completed/Updated: 09/15/2024 ann nt entered data What is your current housing situation? I have housing patient entered data Are you worried about losing your housing? No patient entered data What is the highest level of school that you have finished? More than high school patient entered data What is your current work situation? Otherwise unemployed but not seeking work (ex. 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 Check all that apply I choose not to answer this question Has lack of transportation k ept you from medical appointments, meetings, work or from getting things needed for daily living? No How stressed are you? Stress is when someone feels tense, nervous, anxious, or can't sleep at night because their mind is troubled Not at all patient entered data In the past year have you sp ent more than 2 nights in a row in a nursing home, residential, senior living center, or juvenile correctional facility? No patient entered data Are you a refugee? No patient en tered data What country are you from? [place] juancarlos so entered data Do you feel physically and emotionally safe where you currently live? Yes patient entered data In the past year, have you b een afraid of your partner or ex-partner? No patient entered data PRAPARE Score: 3 Problems Problem Type SNOMED Code ICD Code Onset Dates Problem Status W/U Status Risk Notes Problem 833685064 Celiac disease (K90.0) Active confirmed Dx for recruiter manager referral only. Problem Nausea (116398742) Nausea (R11.0) Active confirmed Problem Atherosclerotic heart disease of [place] coronary artery without angina pectoris (166317296302812) Coronary artery disease with history of coronary revascularization (I25.10) Active confirmed Problem 966438903 Erectile dysfunction, unspecified erectile dysfunction type (N52.9) Active confirmed Dx for lab work only. Problem Arthritis (6718606) 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) Active confirmed Problem 779032875 Neuropathy (G62.9) Active confirmed Problem Arthritis (4406385) Arthritis (M19.90) Active confirmed Problem 75271849 Peripheral polyneuropathy (G62.9) Active confirmed Problem Pain in wrist (77894582) Wrist arthralgia (M25.539) Active confirmed Vital Signs Heart Rate 78 /min 09/15/2024 Laws, Ser vando 09/15/2024 11:13:58 AM EST > Temperature 97.4 degrees Fahrenheit 09/15/2024 Vald ovinos, Randy 09/15/2024 11:13:58 AM EST > Respiratory Rate 18 /min 09/15/2024 Laws, Randy 09/15/2024 11:13:58 AM EST > Blood pressure diastolic 82 mm Hg 09/15/2024 Destinee dovinos, Randy 09/15/2024 11:13:58 AM EST > Oximetry 96 % 09/15/2024 Laws, Ser vando 09/15/2024 11:13:58 AM EST > Weight-kg 111.58 kg 09/15/2024 Laws, Ser vando 09/15/2024 11:13:58 AM EST > Height 68 in 09/15/2024 Laws, Ser vando 09/15/2024 11:13:58 AM EST > Blood pressure systolic 121 mm Hg 09/15/2024 Vald ovinos, Randy 09/15/2024 11:13:58 AM EST > Weight 246 lbs 09/15/2024 Laws, Ser vando 09/15/2024 11:13:58 AM EST > BMI 37.4 kg/m2 09/15/2024 Laws, Ser vando 09/15/2024 11:13:58 AM EST > Encounters Encounter Location Date Provider Diagnosis Main [address] [place], [place] [id number] 04/27/2024 Pauly Noam Shoulder pain, lef t M25.512 and Arthritis M19.90 [facility] [address] [facility] [place] [id number] 09/15/2024 Charis Yessenia Nausea R11.0 ; Rayo k stools R19.5 ; Screening for cardiovascular condition Z13.6 ; Obesity, Class II, BMI 35-39.9 E66.812 and BMI 37.0-37.9, adult Z68.37 [place] [address] [facility] [place] [address] [facility] [address] [place], [place] [id number] 06/21/2024 [facility] Main [address] [place], [place] [id number] 09/18/2024 Charis Casas Assessments Encounter Date Diagnosis (ICD Code) Assessment Notes Treatment Notes Treatment Clinical Notes Section Notes 04/27/2024 Shoulder pain, left (ICD-10 - M25.512) RICE therpay referral to ortho 04/27/2024 Arthritis (ICD-10 - M19.90) 09/15/2024 Nausea (ICD-10 - R11.0) Pt encouraged to avoid trigger foods such as wheat, rye, barley d/t known celiac disease. RX sent for nausea. Pt encouraged to stay hydrated and try not to eat within 2 hours of going to bed. F/U PRN, pt declines F/U appt at this time. Will call w/ results and possible referral to GI, as pt is not currently established w/ one. 09/15/2024 Dark stools (ICD-10 - R19.5) Pt reports dark stools, unsure if they are bloody. No pain w/ defecation. CBC ordered to check for blood loss, will consider GI referral pending lab results. 09/15/2024 Screening for cardiovascular condition (ICD-10 - Z13.6) 09/15/2024 Obesity, Class II, BMI 35-39.9 (ICD-10 - E66.812) 09/15/2024 BMI 37.0-37.9, adult (ICD-10 - Z68.37) Plan Of Treatment No Information Insurance Providers Payer Name Payer Address Payer Phone Subscriber Number Group Number Insured Name Patient Relationship to Insured Coverage Start Date Coverage End Date [employer] [address] [address] [place] [address] [phone] [id number] Nikunj Causey Self - patient is the insured Medical (General) History Medical History History ICD Code GERD (gastroesophageal reflux disease) K 21.9 COPD (chronic obstructive pulmonary dise ase) J44.9 Arthritis Chronic back pain M54.9 Oxygen dependent Z99.81 Atrial fibrillation 427.31 Coronary artery disease with history of coronary revascularization I25.10 Peripheral neuropathy G62.9 Celiac disease K90.0 Surgical History Surgery Date(Month/Year) amputation right hand finger 1977 hernia 1989 skin cancer removal on back 1989 left hip replacement 2005 heart surgery - CABG, ablation 2015 right hip replaced 2016 right shoulder 2017 lasic surgery tubes in right ear
--- OUTSIDE RECORDS SUMMARY | 2025-03-17 16:50 | XMS_ITS | Patient Health Record ---
Author Organization [facility] in [place] Address [address] [place] [address] Care Team Providers Care Dialysis Registered Nurse Name Role Phone Andres Zayas Primary Care Provider [phone] Hu Bunn Emeli [phone] Allergies No Known Allergies Results Component Value Reference Range Notes CBC W/AUTO DIFF Reviewed date:08/16/2024 03:36:52 PM Interpretation: Performing Lab: Notes/Report: BNP Reviewed date:01/08/2025 05:36:32 PM Interpretation: Performing Lab: Notes/Report: [facility] , NT Pro B Type Natriuretic Pept 68.0 <=900.0 pg/mL Performing Lab: see note ML - [facility] LB CBC AUTO DIFF Reviewed date:08/17/2024 08:59:34 AM Interpretation: Performing Lab: Notes/Report: [facility] , White Blood Count 11.4 4.0-11.0 10 3/uL Red Blood Count 4.12 4.70-6.10 10 6/uL Hemoglobin 13.4 14.0-18.0 g/dL Hematocrit 40.6 42.0-54.0 % Mean Corpuscular Volume 98.5 80.0-94.0 fL Mean Corpuscular Hemoglobin 32.5 25.9-34.0 pg Mean Corpuscular HGB Conc 33.0 29.9-35.2 g/dL Red Cell Distribution Width 13.7 11.0-15.0 % Platelet Count 122 150-450 10 3/uL Mean Platelet Volume 8.8 9.5-13.5 fL Neutrophils Percent Auto 85.4 43.0-75.0 % Lymphocytes Percent Auto 7.4 20.5-60.0 % Monocytes Percent Auto 5.8 1.7-12.0 % Eosinophils Percent Auto 0.7 0.9-7.0 % Basophils Percent Auto 0.2 0.2-2.0 % Immature Granulocytes Pct Auto 0.5 0.0-0.5 % Neutrophils Absolute Auto 9.7 1.4-6.5 10 3/uL Lymphocytes Absolute Auto 0.9 1.2-3.8 10 3/uL Monocytes Absolute Auto 0.7 0.3-0.8 10 3/uL Eosinophils Absolute Auto 0.1 0.0-0.7 10 3/uL Basophils Absolute Auto 0.0 0.0-0.1 10 3/uL Immature Granulocytes Abs Auto 0.06 0.00-0.03 10 3/uL Performing Lab: see note ML - [facility] LB BLOOD GASES BTY Reviewed date:10/27/2024 03:45:50 PM Interpretation: Performing Lab: Notes/Report: [facility] , pH ABG 7.341 7.350-7.450 ABG PCO2 59.3 35.0-45.0 mmHg RESULTS GEE D TO SOCOALIZA MELLO RT AT 1533 PO2 ABG 72.9 80.0-100.0 mmHg HCO3 ABG 32.0 22.0-26.0 mmol/L Base Excess ABG 6.3 -2.0-2.0 mmol/L Oxygen Saturation ABG 94.0 Martinez Test POSITIVE POSITIVE Liters per Minute 3 Puncture Site RB Performing Lab: see note ML - [facility] LB CBC AUTO DIFF Reviewed date:01/08/2025 05:36:32 PM Interpretation: Performing Lab: Notes/Report: [facility] , White Blood Count 12.7 4.0-11.0 10 3/uL Red Blood Count 5.46 4.70-6.10 10 6/uL Hemoglobin 17.0 14.0-18.0 g/dL Hematocrit 51.2 42.0-54.0 % Mean Corpuscular Volume 93.8 80.0-94.0 fL Mean Corpuscular Hemoglobin 31.1 25.9-34.0 pg Mean Corpuscular HGB Conc 33.2 29.9-35.2 g/dL Red Cell Distribution Width 12.8 11.0-15.0 % Platelet Count 194 150-450 10 3/uL Mean Platelet Volume 9.4 9.5-13.5 fL Neutrophils Percent Auto 86.7 43.0-75.0 % Lymphocytes Percent Auto 6.2 20.5-60.0 % Monocytes Percent Auto 5.8 1.7-12.0 % Eosinophils Percent Auto 0.2 0.9-7.0 % Basophils Percent Auto 0.3 0.2-2.0 % Immature Granulocytes Pct Auto 0.8 0.0-0.5 % Neutrophils Absolute Auto 11.0 1.4-6.5 10 3/uL Lymphocytes Absolute Auto 0.8 1.2-3.8 10 3/uL Monocytes Absolute Auto 0.7 0.3-0.8 10 3/uL Eosinophils Absolute Auto 0.0 0.0-0.7 10 3/uL Basophils Absolute Auto 0.0 0.0-0.1 10 3/uL Immature Granulocytes Abs Auto 0.10 0.00-0.03 10 3/uL Performing Lab: see note - [facility] FREE T3 Reviewed date:01/08/2025 05:36:32 PM Interpretation: Performing Lab: Notes/Report: [facility] Free T3 2.75 2.18-3.98 pg/mL Performing Lab: see note [facility] GLYCOHEMOGLOBIN A1C Reviewed date:01/08/2025 05:36:32 PM Interpretation: Performing Lab: Notes/Report: [facility] , Glycohemoglobin A1C 5.5 4.5-6.2 % ADA RECOMMENDED LIMIT 4.0 - 6.0 ADA THERAPEUTIC TARGET < 7.0 ACTION SUGGESTED > 7.0 Estimated Average Glucose 111 Performing Lab: see note - [facility] INSULIN Reviewed date:01/08/2025 05:36:32 PM Interpretation: Performing Lab: Notes/Report: [facility] , Insulin 29.0 2.6-24.9 uIU/mL Performed at: [facility] [address] [id number] Dies[employer] Din[employer] Engineer: Candido Villegas PhD, Phone: [phone] Performing Lab: see note - [facility] LB LIPID PROFILE Reviewed date:01/08/2025 05:36:32 PM Interpretation: Performing Lab: Notes/Report: [facility] , Triglycerides 111 <=150 mg/dL Cholesterol 182 <=200 mg/dL HDL Cholesterol 58 40-60 mg/dL > or =60 mg/dl - LOW CARDIOVASCULAR RISK <40 mg/dl - HIGH CARDIOVASCULAR RISK LDL Cholesterol Calculated 101.8 <100 mg/dl OPTIMAL 100-129 mg/dl NEAR OR ABOVE OPTIMAL 130-159 mg/dl BORDERLINE HIGH 160-189 mg/dl HIGH >190 mg/dl VERY HIGH VLDL CHOLESTEROL 22.2 Chol HDL Ratio 3.1 3.3 - 4.4 LOW RISK 4.4 - 7.1 AVERAGE RISK 7.1 - 11.0 MODERATE RISK >11.0 HIGH RISK Performing Lab: see note - [facility] LB PROF 14(COMP METB) Reviewed date:01/08/2025 05:36:32 PM Interpretation: Performing Lab: Notes/Report: [facility] , Sodium 139 136-145 mmol/L Potassium 4.8 3.5-5.1 mmol/L Chloride 102 98-107 mmol/L Carbon Dioxide 30.3 21.0-32.0 mmol/L Anion Gap 11.5 Glucose 126 74-106 mg/dL Blood Urea Nitrogen 29.0 7.0-18.0 mg/dL Creatinine 1.04 0.70-1.30 mg/dL Estimated GFR ( Denisse >60 >=60 mL/min/1.73m 2 Estimated GFR (Non- Tri >60 >=60 mL/min/1.73m 2 BUN Creatinine Ratio 27.9 Calcium 11.4 8.5-10.1 mg/dL Bilirubin Total 0.5 0.2-1.0 mg/dL Aspartate Amino Transferase 20 15-37 U/L Alanine Aminotransferase 30 16-63 U/L Alkaline Phosphatase 68 46-116 U/L Total Protein 7.4 6.4-8.2 g/dL Albumin Level 4.0 3.4-5.0 g/dL Globulin 3.4 Albumin Globulin Ratio 1.2 Performing Lab: see note ML - [facility] LB T4 Reviewed date:01/08/2025 05:36:32 PM Interpretation: Performing Lab: Notes/Report: [facility] , T4 Thyroxine 6.60 4.50-12.10 ug/dL Performing Lab: see note ML - [facility] LB TSH Reviewed date:01/08/2025 05:36:32 PM Interpretation: Performing Lab: Notes/Report: [facility] , Thyroid Stimulating Hormone 0.630 0.358-3.740 uIU/mL Performing Lab: see note ML - [facility] LB URIC ACID SERUM Reviewed date:01/08/2025 05:36:32 PM Interpretation: Performing Lab: Notes/Report: [facility] , Uric Acid 3.4 3.5-7.2 mg/dL Performing Lab: see note ML - [facility] LB Troponin I High Sensitivity Reviewed date:01/08/2025 05:36:32 PM Interpretation: Performing Lab: Notes/Report: [facility] , Troponin I High Sensitivity 14.6 4.0-76.1 pg/mL CUT-OFF POINTS HAVE BEEN ESTABLISHED BASED ON THE FOURTH UNIVERSAL DEFINITION OF MYOCARDIAL INFARCTION. THE UPPER REFERENCE LIMIT (URL) OF TROPONIN, DEFINED THE 99TH PERCENTILE OF cTnI DISTRIBUTION IN A REFERENCE POPULATION, HAS BEEN CONFIRMED THE DECISION THRESHOLD FOR VA DIAGNOSIS. 99TH PERCENTILE = 76.2 PG/ML NOTE: HIGH-SENSITIVITY TROPONIN ASSAY IS NOT INTENDED TO BE USED IN ISOLATION BUT SHOULD BE INTERPRETED IN CONJUNCTION WITH OTHER DIAGNOSTIC AND CLINICAL INFORMATION. Performing Lab: see note ML - [facility] LB LIPID PROFILE Reviewed date:01/19/2025 07:18:24 PM Interpretation: Performing Lab: Notes/Report: [facility] , Triglycerides 86 <=150 mg/dL Cholesterol 162 <=200 mg/dL HDL Cholesterol 62 40-60 mg/dL > or =60 mg/dl - LOW CARDIOVASCULAR RISK <40 mg/dl - HIGH CARDIOVASCULAR RISK LDL Cholesterol Calculated 83.0 <100 mg/dl OPTIMAL 100-129 mg/dl NEAR OR ABOVE OPTIMAL 130-159 mg/dl BORDERLINE HIGH 160-189 mg/dl HIGH >190 mg/dl VERY HIGH VLDL CHOLESTEROL 17.2 Chol HDL Ratio 2.6 3.3 - 4.4 LOW RISK 4.4 - 7.1 AVERAGE RISK 7.1 - 11.0 MODERATE RISK >11.0 HIGH RISK Performing Lab: see note ML - [facility] LB PROF 14(COMP METB) Reviewed date:01/19/2025 07:18:24 PM Interpretation: Performing Lab: Notes/Report: [facility] , Sodium 139 136-145 mmol/L Potassium 5.0 3.5-5.1 mmol/L Chloride 102 98-107 mmol/L Carbon Dioxide 28.7 21.0-32.0 mmol/L Anion Gap 13.3 Glucose 106 74-106 mg/dL Blood Urea Nitrogen 24.0 7.0-18.0 mg/dL Creatinine 1.07 0.70-1.30 mg/dL Estimated GFR ( Denisse >60 >=60 mL/min/1.73m 2 Estimated GFR (Non- Tri >60 >=60 mL/min/1.73m 2 BUN Creatinine Ratio 22.4 Calcium 9.9 8.5-10.1 mg/dL Bilirubin Total 0.7 0.2-1.0 mg/dL Aspartate Amino Transferase 19 15-37 U/L Alanine Aminotransferase 39 16-63 U/L Alkaline Phosphatase 61 46-116 U/L Total Protein 6.9 6.4-8.2 g/dL Albumin Level 3.7 3.4-5.0 g/dL Globulin 3.2 Albumin Globulin Ratio 1.2 Performing Lab: see note ML - [facility] LB Calcium, Ionized, Serum Reviewed date:01/23/2025 10:13:17 PM Interpretation: Performing Lab: Notes/Report: [facility] , Calcium, Ionized, Serum 5.3 4.5-5.6 mg/dL Performed at: - [facility] [address] [id number] [employer] Engineer: Candido Villegas PhD, Phone: [phone] Performing Lab: see note - [facility] LB CA echo doppler complete Reviewed date:02/03/2025 09:03:54 PM Interpretation: Performing Lab: Notes/Report: Source Facility: [facility] [place] [address] [place] [address] Cardiology Report Signed Patient: ELISE TABRO MR#: [id number] : 1960 Acct:[id number] Age/Sex: 64 / M ADM Date: 02/03/25 Loc: CARD Attending Dr: Benny Diaz M.D. Ordering Physician: Benny Diaz M.D. Date of Service: 02/03/25 Procedure(s): CA echo doppler complete Accession Number(s): [id number] cc: Donna Zayas M.D.; Benny Diaz M.D. Patient Name: ELISE TABOR MR#: [id number] : 1960 Exam Date: 02/03/2025 Ordering Doctor: DR. BENNY DIAZ M.D. CORRECTION Corrected on: 02/03/2025; ECHOCARDIOGRAM REPORT PROCEDURE: CA ECHO DOPPLER COMPLETE INDICATIONS: Acute combined systolic and diastolic heart failure, CABGx5, COPD, emphysema COMPARISON: None. DESCRIPTION: COMPLETE ECHOCARDIOGRAM Real-time transthoracic echocardiography with 2D, M-mode, spectral and color flow Doppler performed. QUALITY: Technical quality was fair. LEFT VENTRICLE: Normal chamber size. Mild concentric left ventricular hypertrophy. Systolic function is moderately reduced. LV EF: Moderately reduced left ventricular ejection fraction, (35-40%). DIASTOLIC: Diastolic function is indeterminate. ATRIAL SEPTUM: Visually appears intact. LEFT ATRIUM: Normal chamber size. RIGHT ATRIUM: Mild dilatation. RIGHT VENTRICLE: Normal chamber size. Normal systolic function. TRICUSPID VALVE: Normal mobility and thickness. No stenosis with trivial regurgitation. Unable to accurately estimate right sided pressures due to lack of measurable tricuspid regurgitation. MITRAL VALVE: Normal mobility and thickness. No evidence of mitral valve stenosis. There is no mitral annular calcification. Trivial mitral regurgitation. AORTIC VALVE: Normal trileaflet appearance. No visible sclerosis. Normal leaflet mobility. No evidence of aortic valve stenosis. Mild to moderate aortic regurgitation. AORTIC ROOT: Normal diameter and appearance relative to body surface area, measuring 4.2 cm. BSA 2.27 m???. PULMONIC VALVE: Normal thickness and mobility. No stenosis. No regurgitation. PERICARDIUM: No evidence of pericardial effusion. IVC: Collapses with inspirations. IVC is normal in size. PLEURA: CONCLUSION: 1. Mild concentric left ventricular hypertrophy. Systolic function is difficult to assess due to poor sound transmission but appears moderately reduced. Estimated LVEF is 35 to 40%. 2. Normal right ventricular size and systolic function. 3. Mild to moderate aortic regurgitation. 4. No pericardial effusion. 5. Technically difficult study with poor sound transmission. Adult Echocardiography Procedure Report Left Ventricle LVEDD (3.7 - 5.6 cm): 4.89 cm LVESD (2.2 - 4.0 cm): 3.49 cm LVIVS thickness (0.6 - 1.2 cm): 1.23 cm LVPW thickness (0.5 - 1.0 cm): 1.09 cm e': 0.11 m/s E - e': 3.57 LVOT Max Gradient: 2.24 mm[Hg] LVOT Area (cm2): 0.75 m/s Peak Velocity (LVOT): 0.75 m/s Mean Velocity (LVOT): 0.52 m/s LVOT Diameter 2.39 cm Left Atrium LA Volume Index (2D A2C): 24.72 ml/m2 Left Atrium Systolic Dimension: 4.04 cm Mitral Valve MV E to A Ratio: 0.67 Mitral Valve A-Wave Peak Velocity: 0.60 m/s Mitral Valve E-Wave Peak Velocity: 0.40 m/s Right Ventricle Aorta AO Root Diam: 4.20 cm Aortic Valve AoV Area (Peak Roger): 1.98 cm2, 1.98 cm2 AoV Area (VTI): 2.21 cm2, 2.21 cm2 Peak Velocity(Antegrade Flow): 1.69 m/s Peak Gradient(Antegrade Flow): 11.43 mm[Hg] Mean Velocity(Antegrade Flow): 0.97 m/s Mean Gradient(Antegrade Flow): 4.75 mm[Hg] Velocity Time Integral: 28.83 cm Tricuspid Valve Pulmonic Valve Peak Velocity: 1.01 m/s Peak Gradient: 4.05 mm[Hg] Right Atrium Right Atrium Systolic Pressure: 61.14 ml, 61.14 ml Dictated by: Abraham Card M.D. on 02/03/2025 at 20:39 Approved by: Abraham Card M.D. on 02/03/2025 at 20:46 Dictated by: Abraham Card M.D. on 02/03/2025 at 20:55 Approved by: Abraham Card M.D. on 02/03/2025 at 20:55 Dictated By: ABRAHAM CARD Signed By: 02/03/252055 DD/ 54 TD/TT: Automobile Upholsterer: [place] [address] Cardiology Report Signed Patient: KISHA TABOR MR#: [id number] : 1960 Acct:[id number] Age/Sex: 64 / M ADM Date: 02/03/25 Loc: CARD Attending Dr: Benny Diaz M.D. Ordering Physician: Benny Diaz M.D. Date of Service: 02/03/25 Procedure(s): CA ech o doppler complete Accession Number(s): [id number] cc: Donna Zayas M.D. ; Benny Diaz M.D. Patient Name: ELISE TABOR MR#: [id number] : 1960 Exam Date: 02/03/2025 Ordering Doctor: DR. BENNY DIAZ M.D. CORRECTION Corrected on: 02/03/2025; ECHOCARDIOGRAM REPORT PROCEDURE: CA ECHO DOPPLER COMPLETE INDICATIONS: Acute combined systolic and diastolic heart failure, CABGx5, COPD, emphysema COMPARISON: None. DESCRIPTION: COMPLET E ECHOCARDIOGRAM Real-time transthoracic echocardiography wit h 2D, M-mode, spectral and color flow Doppler performed. QUALITY: Technical quality was fair. LEFT VENTRICLE: Norm al chamber size. Mild concentric left ventricular hypertrophy. Systoli c function is moderately reduced. LV EF: Moderately reduced left ventricular ejection fraction, (35-40%). DIASTOLIC: Diastolic function is indeterminate. ATRIAL SEPTUM: Visua lly appears intact. LEFT ATRIUM: Normal chamber size. RIGHT ATRIUM: Mild dilatation. RIGHT VENTRICLE: Nor mal chamber size. Normal systolic function. TRICUSPID VALVE: Nor mal mobility and thickness. No stenosis with trivial regurgitation. Unabl e to accurately estimate right sided pressures due to lack of measurable tricus pid regurgitation. MITRAL VALVE: Normal mobility and thickness. No evidence of mitral valve stenosis. There is n o mitral annular calcification. Trivial mitral regurgitation. AORTIC VALVE: Normal trileaflet appearance. No visible sclerosis. Normal leaflet mobility. No evidence of aortic valve stenosis. Mild to moderate aortic regurgitation. AORTIC ROOT: Normal diameter and appearance relative to body surface area, measuring 4.2 cm. BS A 2.27 m???. PULMONIC VALVE: Norm al thickness and mobility. No stenosis. No regurgitation. PERICARDIUM: No evid ence of pericardial effusion. IVC: Collapses with inspirations. IVC is normal in size. PLEURA: CONCLUSION: 1. Mild concentric l eft ventricular hypertrophy. Systolic function is difficult to assess due to poor sound transmission but appears moderately reduced. Estimated L VEF is 35 to 40%. 2. Normal right ventricular size and systolic function. 3. Mild to moderate aortic regurgitation. 4. No pericardial effusion. 5. Technically diffi cult study with poor sound transmission. Adult Echocardiograp hy Procedure Report Left Ventricle LVEDD (3.7 - 5.6 cm) : 4.89 cm LVESD (2.2 - 4.0 cm) : 3.49 cm LVIVS thickness (0.6 - 1.2 cm): 1.23 cm LVPW thickness (0.5 - 1.0 cm): 1.09 cm e': 0.11 m/s E - e': 3.57 LVOT Max Gradient: 2 .24 mm[Hg] LVOT Area (cm2): 0.7 5 m/s Peak Velocity (LVOT) : 0.75 m/s Mean Velocity (LVOT) : 0.52 m/s LVOT Diameter 2.39 cm Left Atrium LA Volume Index (2D A2C): 24.72 ml/m2 Left Atrium Systolic Dimension: 4.04 cm Mitral Valve MV E to A Ratio: 0.67 Mitral Valve A-Wave Peak Velocity: 0.60 m/s Mitral Valve E-Wave Peak Velocity: 0.40 m/s Right Ventricle Aorta AO Root Diam: 4.20 cm Aortic Valve AoV Area (Peak Roger): 1.98 cm2, 1.98 cm2 AoV Area (VTI): 2.21 cm2, 2.21 cm2 Peak Velocity(Antegr jacki Flow): 1.69 m/s Peak Gradient(Antegr jacki Flow): 11.43 mm[Hg] Mean Velocity(Antegr jacki Flow): 0.97 m/s Mean Gradient(Antegr jacki Flow): 4.75 mm[Hg] Velocity Time Integr al: 28.83 cm Tricuspid Valve Pulmonic Valve Peak Velocity: 1.01 m/s Peak Gradient: 4.05 mm[Hg] Right Atrium Right Atrium Systoli c Pressure: 61.14 ml, 61.14 ml Dictated by: Abraham Card M.D. on 02/03/2025 at 20:39 Approved by: Abraham Card M.D. on 02/03/2025 at 20:46 Dictated by: Abraham Card M.D. on 02/03/2025 at 20:55 Approved by: Abraham Card M.D. on 02/03/2025 at 20:55 Dictated By: ABRAHAM CARD Signed By: 02/03/252055 DD/ 54 TD/TT: Automobile Upholsterer: MR head/brain wo con Reviewed date:02/21/2025 01:09:15 PM Interpretation: Performing Lab: Notes/Report: Source Facility: [place] [address] Magnetic Resonance Report Signed Patient: ELISE TABOR MR#: [id number] : 1960 Acct:[id number] Age/Sex: 64 / M ADM Date: 02/21/25 Loc: MRI Attending Dr: Donna Zayas M.D. Ordering Physician: Donna Zayas M.D. Date of Service: 02/21/25 Procedure(s): MR head/brain wo con Accession Number(s): [id number] cc: Donna Zayas M.D. [place] [address] Patient Name: ELISE TABOR MRN: [id number] date: 1960 Sex: M Assigned Patient Location: MRI Current Patient Location: MRI Accession/Order Number: [id number] Exam Date: 02/21/2025 10:55 Report Date: 02/21/2025 11:03 At the request of: DONNA ZAYAS MD Procedure: MR head/brain wo con EXAMINATION: MRI OF THE BRAIN WITHOUT CONTRAST CLINICAL HISTORY: Chronic headaches G43.909 COMPARISON: None TECHNIQUE: Multiecho, multiplanar imaging of the brain was performed without enhancement. Mild cortical atrophy is seen. The ventricles are normal in size and position. A few scattered foci of increased T2 and FLAIR signal are present within the subcortical white matter bilaterally. This is nonspecific though likely minor microvascular disease. There are no additional areas of abnormal signal intensity within the supra- or infratentorial brain. No restricted diffusion is identified to suggest a recent ischemic event. There are no extra-axial collections or mass effect. The imaged paranasal sinuses and mastoid air cells are clear. MR/MR head/brain wo con IMPRESSION: MINOR ATROPHY AND CHRONIC MICROVASCULAR DISEASE. NO ACUTE INTRACRANIAL FINDINGS. Impression dictated by: Uyen Salazar M.D. 02/21/2025 11:03 AM Dictation Location: [place] [address] Electronically authenticated by: [id number] Y Date: 02/21/2025 11:03 Dictated By: Uyen Salazar M.D. Signed By: 02/21/25 1105 DD/ 1103 TD/TT: Automobile Upholsterer: [place] [address] Magnetic Resonance Report Signed Patient: KISHA TABOR MR#: [id number] : 1960 Acct:[id number] Age/Sex: 64 / M ADM Date: 02/21/25 Loc: MRI Attending Dr: Theron Zayas M.D. Ordering Physician: Donna Zayas M.D. Date of Service: 02/21/25 Procedure(s): MR head/brain wo con Accession Number(s): [id number] cc: Donna Zayas M.D. [place] [address] Patient Name: ELISE TABOR MRN: [id number] date: 1960 Sex: M Assigned Patient Location: MRI Current Patient Location: MRI Accession/Order Numb er: [id number] Exam Date: 02/21/2025 10:55 Report Date: 02/21/2025 11:03 At the request of: DONNA ZAYAS MD Procedure: MR head/b rain wo con EXAMINATION: MRI OF THE BRAIN WITHOUT CONTRAST CLINICAL HISTORY: Chronic headaches G43.909 COMPARISON: None TECHNIQUE: Multiecho , multiplanar imaging of the brain was performed without enhancement. Mild cortical atroph y is seen. The ventricles are normal in size and position. A few scattered foci of increased T2 and FLAIR signal are present within the subcortic al white matter bilaterally. This is nonspecific though likely minor microvascular disease. There are no additional areas of abnormal signal intensity wit hin the supra- or infratentorial brain. No restricted diffusion is identif ied to suggest a recent ischemic event. There are no extra-axial collecti ons or mass effect. The imaged paranasal sinuses and mastoid air cells ar e clear. M R/MR head/brain wo con IMPRESSION: MINOR ATROPHY AND CHRONIC MICROVASCULAR DISEASE. NO ACUTE INTRACRANIA L FINDINGS. Impression dictated by: Uyen Salazar M.D. 02/21/2025 11:03 AM Dictation Location: [place] [address] Electronically authenticated by: [id number] Y Date: 02/21/2025 11:03 Dictated By: Uyen Salazar M.D. Signed By: 02/21/25 110 DD/ 110 TD/TT: Automobile Upholsterer: LIPID PROFILE (Not yet revie wed by provider) Interpretation: Performing Lab: Notes/Report: [facility] , Triglycerides 112 <=150 mg/dL Cholesterol 124 <=200 mg/dL HDL Cholesterol 46 40-60 mg/dL > or =60 mg/dl - LOW CARDIOVASCULAR RISK <40 mg/dl - HIGH CARDIOVASCULAR RISK LDL Cholesterol Calculated 55.6 <100 mg/dl OPTIMAL 100-129 mg/dl NEAR OR ABOVE OPTIMAL 130-159 mg/dl BORDERLINE HIGH 160-189 mg/dl HIGH >190 mg/dl VERY HIGH VLDL CHOLESTEROL 22.4 Chol HDL Ratio 2.7 3.3 - 4.4 LOW RISK 4.4 - 7.1 AVERAGE RISK 7.1 - 11.0 MODERATE RISK >11.0 HIGH RISK Performing Lab: see note ML - [facility] LB SGOT (Not yet reviewed by pr barbara) Interpretation: Performing Lab: Notes/Report: [facility] , Aspartate Amino Transferase 19 15-37 U/L Performing Lab: see note ML - [facility] LB SGPT (Not yet reviewed by pr prakasher) Interpretation: Performing Lab: Notes/Report: [facility] , Alanine Aminotransferase 33 16-63 U/L Performing Lab: see note ML - [facility] LB PSA SCREENING Reviewed date:01/08/2025 05:36:32 PM Interpretation: Performing Lab: Notes/Report: [facility] , Prostate Specific Antigen Scrn 2.20 <=4.00 ng/mL Performing Lab: see note ML - [facility] LB XR Chest PA and Lateral (Rou iain CXR) * Reviewed date:10/26/2024 03:20:38 PM Interpretation: Performing Lab: Notes/Report: Reason For Referral Reason Patient is establish ed with [facility] cardiology and requested a referral elsewhere Diagnosis 1 Atrial fibrillation, unspecified (I48.91) Diagnosis 2 Coronary arterioscle rosis (I25.10) Referral Organization [facility] Referring Provider First Name Hu Referring Provider Last Name Oni Referring Provider Speciality Pulmonolog y Referred Provider Abraham Card Referred Provider Specialty Cardiology General Notes Nomi Foss 07/14 09:31:19 AM >Referral given to eMlita/Danni at [facility] Cardiology. Patient will be contacted by the office and scheduled.Prudence Riley 07/21/2024 11:04:11 AM >I called and spoke with Danni at [facility] to find out if the patient has been scheduled yet? Per Danni the patient is not scheduled as of today, but she will speak with Melita to find out what she is waiting on., Nomi Foss 07/29/2024 01:03:06 PM >Per Melita at [facility] Cardiology the patient is scheduled for 08/26/2024 at 1140.Prudence Riley 07/29/2024 01:08:04 PM >Correction with date of appt. :08/16/2024 at 1140. Patient is aware of the appt. date and time per Melita.Prudence Riley 08/16/2024 04:28:42 PM >Consult Letter received via fax. Scanned to . Referral Priority Routine Referral Appointment Date 08/16/2024 Medications Medication SIG (Take, Route, Frequency, Duration) Notes Start Date End Date Status Ozempic (0.25 or 0.5 MG/DOSE) 2 MG/3ML Inject 0.25ml Subcutaneous once weekly for 28 days Active Pregabalin 150 MG 1 capsule Orally three times daily Active Protonix 40 MG 1 tablet Orally Once a day for 30 days 01/07/2025 Active Nitroglycerin 0.4 MG 1 tablet under the tongue and allow to dissolve as needed. Take every 5 minutes up to 3 times if chest pain persists Sublingual Three times a day Active predniSONE 10 MG 1 tablet Orally Once a day for 90 days Take with food 02/17/2024 Active Metoprolol Succinate ER 50 MG 2 tablets am and 1pm Orally Active Mucinex 600 MG 1-2 tablets as needed for congestion Orally BID for 90 days Active Lisinopril 5 MG 1 tablet Orally Once a day Active Meloxicam 15 MG take 1 tablet by mouth once daily Oral for 60 Days Active Imitrex 100 MG 1 tablet at least 2 hours between doses as needed Orally Twice a day for 30 days 01/07/2025 Active Ipratropium-Albuterol 0.5-2.5 (3) MG/3ML 3mL Inhalation QID for 90 days Active Vitamin D3 50 MCG (2000 UT) 1 capsule Orally Once a day Active Zinc 50 MG 1 tablet Orally Once a day Active Vitamin B 12 500 MCG 1 tablet Orally Onc e a day Active Vitamin C 1000 MG 1 tablet Orally Once a day Active Trelegy Ellipta 200-62.5-25 MCG/ACT 1 puff Inhalation QD for 90 days Rinse after use; Dispense #3 inhalers 08/17/2024 Active Ventolin HFA 108 (90 Base) MCG/ACT 2 puffs as needed for SOB Inhalation Q4H for 90 days Active Theophylline ER 400 MG 1 tablet Orally QD for 90 days Active tiZANidine HCl 4 MG 2 tabs Orally qhs for 30 days 01/07/2025 Active Topiramate 50 MG 1 tablet Orally Once a day for 30 days 02/21/2025 Active Farxiga 10 MG Oral for 34 Days Active Roflumilast 500 MCG 1 tablet Orally QD for 90 days Active Sodium Chloride 0.9 % 3mL Inhalation BID for 90 days 07/13/2024 Active Azithromycin 250 MG 1 tablet Orally QD for 90 days Using as anti-inflammatory , NOT as antibiotic 02/17/2024 Active Eliquis 5 MG as directed Orally twice daily Active Aspirin 81 81 MG 1 tablet Orally Once a day Active Atorvastatin Calcium 80 MG 1 tablet Orally Once a day Active Acetaminophen 500 MG 1 capsule as needed Orally every 6 hrs Active Immunizations Vaccine Route Administration Date Status Comme nts Flu, Flucelvax (0333-6930) ( 40262) 6 mos and older, single-dose syringe Unknown 08/13/2023 Administered Tdap Unknown 08/13/2023 Administered Social History Tobacco Use: Social History Observation Description Date Details (start date - stop date) Former Smoker NA - NA Tobacco Control (Standard) Question Answer Notes Tobacco use: Former smoker How long has it been since y ou last smoked? Greater than 10 years Additional Findings: Tobacco non-user Ex -very heavy cigarette smoker (40+/day) AUDIT-C (Standard) Question Answer Notes Did you have a drink containing alcohol in the p ast year? No Points 0 Interpretation Negative Problems Problem Type SNOMED Code ICD Code Onset Dates Problem Status W/U Status Risk Notes Problem Anemia (447933346) Anemia, unspecified (D64.9) Active confirmed Problem 719283138 Obesity, unspecified (E66.9) Active confirmed Problem Centrilobular emphysema (63220561) Centrilobular emphysema (J43.2) Active confirmed Prior treatment: Trelegy 200 > Trelegy 100 > Breztri > Spiriva. Not a candidate for EBV or lung reduction surgery. 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.51) Active confirmed Problem 152583215171799 longterm (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 of systemic steroids (Z79.52) Active confirmed Problem Gastroesophageal reflux disease (795372322) GERD (gastroesophageal reflux disease) (K21.9) Active confirmed Problem Obstructive sleep apnea syndrome (79889976) ISABEL (obstructive sleep apnea) (G47.33) Active confirmed Problem Migraine (29738355) Migraine (G43.909) Active confirmed Problem Atrial fibrillation (47037019) Atrial fibrillation, unspecified (I48.91) Active confirmed Problem History of atrial fibrillation (236182678) History of atrial fibrillation (Z86.79) Active confirmed Problem Coronary arteriosclerosis (02860552) Coronary arteriosclerosis (I25.10) Active confirmed Problem Post-inflammatory pulmonary fibrosis (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) Granulomatous lung disease (J84.10) Active confirmed Problem Ex-tobacco user (finding) (433528089) History of tobacco abuse (Z87.891) Active confirmed 2ppd x 35 years (70 pack-years ), quit 2013 Problem Gastroesophageal reflux disease (879076674) Gastroesophageal reflux disease (K21.9) Active confirmed Problem History of respiratory disease (878084878) History of asbestosis (Z87.09) Active confirmed Problem Nondependent cannabis abuse (161778386) Marijuana use (F12.90) Active confirmed Problem Thoracic aortic aneurysm without rupture (disorder) (11100843) Thoracic aneurysm without mention of rupture (I71.20) Active confirmed Vital Signs Heart Rate 81 /min 01/19/2025 3L O2 POC Devic e-Activity/Resting Temperature 97.1 degrees Fahrenheit 01/19/2025 3L O2 POC Device-Activity/Re sting Respiratory Rate 20 /min 01/19/2025 3L O2 POC D evice-Activity/Resting Oximetry 93 % 01/19/2025 3L O2 POC Devic e-Activity/Resting Blood pressure diastolic 64 mm Hg 02/11/2025 Height 70 in 02/11/2025 Blood pressure systolic 122 mm Hg 02/11/2025 Weight 245 lbs 02/11/2025 BMI 35.15 kg/m2 02/11/2025 Procedures Procedure Date Ordered Date Performed Result Body Sit e Split Night Sleep Study 10/27/2024 11/10/2024 N/A ABG 10/27/2024 10/27/2024 N/A Encounters Encounter Location Date Provider Diagnosis [facility] [address] [place] [address] 01/24/2025 Andres Zayas Well adult Z00.00 [facility] [address] [place] [address] 02/03/2025 Andres Zayas [facility] [address] [place] [address] 02/17/2025 Andres Zayas Chronic respiratory failure with hypercapnia J96.12 [facility] [address] [place] [address] 02/21/2025 Andres Zayas [facility] [address] [place] [address] 03/17/2025 Hu Bunn [facility] [address] [place] [address] 08/17/2024 Hu Bunn Centrilobular emphys larissa J43.2 [facility] [address] [place] [facility] [address] 09/13/2024 Hu [facility] Centrilobular emphys larissa J43.2 Pulmonary [facility] [address] [place] [place] [address] 10/05/2024 [facility] [address] [place] [place] [address] 10/21/2024 Hu Erasto Acute cough R05.1 [facility] [address] [place] [address] 01/08/2025 Andres Zayas Abnormal blood chemi stry level R79.9 [facility] [address] [place] [address] 01/23/2025 Andres aZyas [facility] [address] [place] [place] [address] 04/05/2024 [facility] [address] [place] [address] 05/17/2024 [facility] [address] [place] [facility] [place] [address] 01/07/2025 Andres Zayas Well adult Z00.00 ; Coronary arteriosclerosis I25.10 ; Atrial fibrillation, unspecified I48.91 ; History of atrial fibrillation Z86.79 ; Granulomatous lung disease J84.10 ; Anemia, unspecified D64.9 ; Hypersomnia, unspecified G47.10 and GERD (gastroesophageal reflux disease) K21.9 [facility] [address] [place] [address] 02/11/2025 Andres Zayas Centrilobular emphys larissa J43.2 ; Obesity, unspecified E66.9 ; Coronary arteriosclerosis I25.10 ; History of atrial fibrillation Z86.79 ; Chronic respiratory failure with hypercapnia J96.12 and Migraine G43.909 [facility] [address] [place] [address] 07/13/2024 Hubettye Maurer Centrilobular emphys larissa J43.2 ; Chronic respiratory failure with hypoxia J96.11 ; History of tobacco abuse Z87.891 ; History of asbestosis Z87.09 ; Coronary arteriosclerosis I25.10 ; Atrial fibrillation, unspecified I48.91 ; 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 Z79.52 ; 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 of inhaled steroids Z79.51 and Obesity, unspecified E66.9 [facility] [address] [place] [address] 10/27/2024 Hubettye Bunn Centrilobular emphys larissa J43.2 ; Hypersomnia, unspecified G47.10 ; Chronic respiratory failure with hypercapnia J96.12 ; Chronic respiratory failure with hypoxia J96.11 ; Metabolic alkalosis E87.3 ; History of tobacco abuse Z87.891 ; History of asbestosis Z87.09 ; Coronary arteriosclerosis I25.10 ; Atrial fibrillation, unspecified I48.91 ; longterm (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 of systemic steroids Z79.52 ; longterm (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 of inhaled steroids Z79.51 and Obesity, unspecified E66.[address] [address] 01/19/2025 Hu Bunn Centrilobular emphys larissa J43.2 ; ISABEL (obstructive sleep apnea) G47.33 ; Chronic respiratory failure with hypercapnia J96.12 ; Chronic respiratory failure with hypoxia J96.11 ; History of tobacco abuse Z87.891 ; History of asbestosis Z87.09 ; 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 Not a candidate for EBV or lung reduction surgery. Patient continues to decline slowly. Remains symptomatic despite triple inhaled therapy, theophylline, Daliresp, and prednisone. He is not an EBV candidate. He declined referral to lung transplant center. However, since last visit, 2 new medications have been FDA-approved for COPD: Ohtuvayre, a novel PDE3/PDE4 inhibitor, and Dupixent for eosinophil/predniso ne-dependent COPD. We discussed these to do options in depth. The issue with Ohtuvayre is there is some dupilicate therapy with theophylline and Daliresp (theophylline goes through PDE3 and Daliresp PDE4) - If he were to start this, he would need a washout period of about 5 days for both medications. Explained that it is administered via nebulizer. I explained that Dupixent is an injection medication. I do not have a recent eosinophil count at 300 or greater to qualify. The problem with this is that he is on prednisone which can artificially decrease the eosinophil count, and therefore ordering a CBC with differential may have a false low value. The patient voiced he wanted to try both medications to start. I did not recommend this, as if he were to have any issues, I would not know which medication is causing the problems and therefore he would need to stop both. After explaining this, he voiced understanding and elected to begin with Nelsy. Paperwork was signed. Hopefully it will be affordable for him. In the meantime, he is going to get a CBC with differential to check eosinophil count as a backup for potential Dupixent therapy. He is also complaining of thick secretions. He is drinking plenty of water and taking guaifenesin without benefit. He states the sputum is thick and very difficult to expectorate. I recommended starting saline nebs 0.9% twice daily. I discussed briefly the end game of advanced COPD. If he finds himself too exhausted to go on or feeling miserable, then hospice would be an option. 07/13/2024 Chronic respiratory failure with hypoxia (ICD-10 - J96.11) Ticx-sb-umgb encounter performed with the patient to document continued need for supplemental oxygen (O2). -Current flow & directions: 3-4L/min O2 ATC, uses POC with ambulation -Patient voices adherence to recommended usage: Yes -Symptom control on O2: Severe dyspnea when off O2 -Counseled patient not begin, restart, or continue smoking, around the O2 due to risk of fire which could result in damage to the O2 tanks & lines, smoke inhalation and flame damage to the airway, significant truong, potential , property damage, and potential harm & to bystanders. Additionally, counseled it is not desir to begin, restart, or continue smoking given the underlying pulmonary disease that led to the point of requiring O2. -Recommendations: Patient continues to desaturate on 3L/min - he was 87% on 3L/min upon arrival today, but recovered @ rest. Continue O2, ideally 4L/min with activity. 10/27/2024 Centrilobular emphysema (ICD-10 - J43.2) Prior treatment: Trelegy 200 > Trelegy 100 > Breztri > Spiriva. Not a candidate for EBV or lung reduction surgery. He is not an endobronchial valve candidate. He refused referral to lung transplantation center. Patient continues to complain of worsening shortness of breath. He was approved for Ohtuvayre, but there was a $500 ilo-ez-ruswvs cost monthly. He apparently did not feel it was worth the cost to even see if it would help his breathing. There is nothing I can do further regarding Ohtuvayre. He is not a Dupixent candidate as the eosinophil count is only 100. I have pretty much exhausted all medication options at this point. I offered to increase his prednisone from 10mg/day, but he was concerned about weight gain. I stated at this point, is he worried about weight gain or breathing. He stated he just wanted to stay at the 10mg/day dose. I reviewed labs that [facility] cardiology ordered from 10/01/2024. I note that his serum HCO3- level is 39.7. Discussed with patient that the 2 most common causes of this are contraction alkalosis from diuretics and compensatory secondary to chronic hypercapnia. I do not have any recent ABGs. I discussed the possibility of BiPAP/NIV which could help symptom control. However, I would need to check an ABG and also screen him for ISABEL. He voiced he would be willing to use a PAP/NIV if indicated. Unfortunately, [facility] has been very difficult to reach regarding ordering supplies and obtaining compliance data. It is a potential nightmare to order one of these devices from there. His POC is insufficient for him with ambulation. His breathing could improve if he had a continuous tank. He refused that today. Outside investigating a BiPAP/NIV, I have exhausted all treatments I have available. Unfortunately, the patient is not completely compliant with my recommendations, or feeling that the cost of treatments was not worth any potential symptomatic gain. He is a palliative care candidate. If he continues to decline, I feel he is hospice appropriate. If it continues to decline, hospice is also a consideration. 10/27/2024 Hypersomnia, unspecified (ICD-10 - G47.10) Screen patiented for obstructive sleep apnea. His [place] was 13 and STOP-BANG was 8. He states his significant other has noticed him stopping breathing at night. He admits to daytime hypersomnolence. He is additionally obese. I cannot rule out ISABEL to qualify him for BiPAP via that route. He voiced agreement to proceed with a PSG. It will have to be an attended study as he is on chronic O2; an HST is not appropriate for this patient. He voiced agreement to proceed with PAP therapy if indicated. Nuet-gm-clpc was performed today regarding need for CPAP or BiPAP if he qualifies. 01/19/2025 Centrilobular emphysema (ICD-10 - J43.2) Prior treatment: Trelegy 200 > Trelegy 100 > Breztri > Spiriva. Not a candidate for EBV or lung reduction surgery. He is not an endobronchial valve candidate. He refused referral to lung transplantation center. Options remain limited. Has either refused or unable to afford any additional treatments. Will continue with current treatments. If he declines further, he would be hospice appropriate. 01/19/2025 ISABEL (obstructive sleep apnea) (ICD-10 - G47.33) Kopk-yf-idwz encounter performed with the patient to document continued need for PAP therapy. -Current DME: [employer] -Split night 11/10/2024: AHI 61, Titration 16/12 with 5L/min O2 bleed-in -Compliance was reviewed from 12/20/2024 - 01/18/2025 -Total days used: 30 (100%) -Total of all days >4 hours of use: 29/30 (97%) -Current model, mode, & set pressure: AirCurve 10 VAuto 16/12 -Residual AHI: 0.3 -Air leak (median): 11.8L/min -Mask/harness fitting: Okay -Sleep quality: No complaints -Daytime hypersomnolence: Still has some daytime sleepiness -Recommendations: Excellent compliance. Denies any significant improvement in his symptoms. Explained this is also helping him with his hypercapnic respiratory failure, so don't quit. He states it is not bothersome, so he will continue to use it. Severe nocturnal desaturations requiring 5L/min O2 Bleed-in. Only major complaint is severe dry mouth even at the highest humidity setting. -The patient was reminded to continue to wear the PAP @ bedtime and with any naps. -This xdrz-zg-vyze visit comes with my authorization that the patient's DME may request to renew, reorder, and/or replace tubing, supplies, mask, and/or PAP device (if applicable). 01/07/2025 Well adult (ICD-10 - Z00.00) 01/07/2025 Coronary arteriosclerosis (ICD-10 - I25.10) 08/17/2024 Centrilobular emphysema (ICD-10 - J43.2) Prior treatment: Trelegy 200 > Trelegy 100 > Breztri > Spiriva. Not a candidate for EBV or lung reduction surgery. 09/13/2024 Centrilobular emphysema (ICD-10 - J43.2) Prior treatment: Trelegy 200 > Trelegy 100 > Breztri > Spiriva. Not a candidate for EBV or lung reduction surgery. 10/21/2024 Acute cough (ICD-10 - R05.1) 01/08/2025 Abnormal blood chemistry level (ICD-10 - R79.9) 01/24/2025 Well adult (ICD-10 - Z00.00) 02/17/2025 Chronic respiratory failure with hypercapnia (ICD-10 - J96.12) 02/11/2025 Centrilobular emphysema (ICD-10 - J43.2) 02/11/2025 Obesity, unspecified (ICD-10 - E66.9) 02/11/2025 Coronary arteriosclerosis (ICD-10 - I25.10) 01/07/2025 Atrial fibrillation, unspecified (ICD-10 - I48.91) 01/19/2025 Chronic respiratory failure with hypercapnia (ICD-10 - J96.12) Serum HCO3- on 10/01/3034 @ 39.7 excited my suspicion for possible chronic hypercapnic respiratory failure. This prompted me to order an ABG, which was done in the office today. Were reviewed and is as follows: ABG 10/27/2024: pH: 7.34, pCO2: 59.3, pO2: 72.9, SaO2: 94%, FiO2: 3L/min Continue with BiPAP. 10/27/2024 Chronic respiratory failure with hypercapnia (ICD-10 - J96.12) Serum HCO3- on 10/01/3034 @ 39.7 excited my suspicion for possible chronic hypercapnic respiratory failure. This prompted me to order an ABG, which was done in the office today. Were reviewed and is as follows: ABG 10/27/2024: pH: 7.34, pCO2: 59.3, pO2: 72.9, SaO2: 94%, FiO2: 3L/min My suspicion is correct and he does have chronic hypercapnic respiratory failure. Likely underlying cause is COPD, but cannot rule out OHS (obesity hypoventilation syndrome)-testing for ISABEL. Regardless, the treatment is the same: BiPAP/NIV. 07/13/2024 History of tobacco abuse (ICD-10 - Z87.891) 2ppd x 35 years (70 pack-years), quit 2012 2ppd x35 years, quit 2011. LDCT due 04/2024 but was not done. The current recommendations suggest the patient continue with LDCT screening up to 15 years out from smoking, which would be 2026. 07/13/2024 History of asbestosis (ICD-10 - Z87.09) Exposure to asbestos from brake pads. No evidence of asbestos on prior CT chest. 10/27/2024 Chronic respiratory failure with hypoxia (ICD-10 - J96.11) Skem-kc-obpv encounter performed with the patient to document continued need for supplemental oxygen (O2). -Current flow & directions: 3-4L/min O2 ATC, uses POC with ambulation from 3-5L/min -Patient voices adherence to recommended usage: Yes -Symptom control on O2: Severe dyspnea when off O2 -Counseled patient not begin, restart, or continue smoking, around the O2 due to risk of fire which could result in damage to the O2 tanks & lines, smoke inhalation and flame damage to the airway, significant truong, potential , property damage, and potential harm & to bystanders. Additionally, counseled it is not desir to begin, restart, or continue smoking given the underlying pulmonary disease that led to the point of requiring O2. -Recommendations: Patient is O2 needs continue to climb. He is now on 5L/min and saturating only 85% on this flow with ambulation. At rest, 3L/min is sufficient as the ABG today showed a pO2 of 72.9 and SaO2 94.7% on this flow. Patient was advised yet again that his POC is not adequate for him and he needs tanks. He voiced he is not going to use tanks because they are too cumbersome. Unfortunately, using the tank may improve his breathing which he is refusing. 01/19/2025 Chronic respiratory failure with hypoxia (ICD-10 - J96.11) Wrge-vw-veaq encounter performed with the patient to document continued need for supplemental oxygen (O2). -Current flow & directions: 3-4L/min O2 ATC, uses POC with ambulation from 3-5L/min, 5L/min O2 bleed-in -Patient voices adherence to recommended usage: Yes -Symptom control on O2: Relief of SOB -Counseled patient not begin, restart, or continue smoking, around the O2 due to risk of fire which could result in damage to the O2 tanks & lines, smoke inhalation and flame damage to the airway, significant truong, potential , property damage, and potential harm & to bystanders. Additionally, counseled it is not desir to begin, restart, or continue smoking given the underlying pulmonary disease that led to the point of requiring O2. -Recommendations: Once again, POC is inadequate for the patient, but he will not give it up. 01/07/2025 History of atrial fibrillation (ICD-10 - Z86.79) 02/11/2025 History of atrial fibrillation (ICD-10 - Z86.79) 02/11/2025 Chronic respiratory failure with hypercapnia (ICD-10 - J96.12) 01/07/2025 Granulomatous lung disease (ICD-10 - J84.10) 01/19/2025 History of tobacco abuse (ICD-10 - Z87.891) 2ppd x 35 years (70 pack-years), quit 2012 2ppd x35 years, quit 2011. Discussed future studies. He voiced he would not want any surgery, chemo, or radiation if he had cancer. With his health, the treatment could be worse than the disease. He voiced understanding of the conundrum. He stated he is fine forgoing any further testing. 10/27/2024 Metabolic alkalosis (ICD-10 - E87.3) HCO3- 39.5, Suspected chronic hypercapnic respiratory failure, which I was correct based on ABG drawn today. 07/13/2024 Coronary arteriosclerosis (ICD-10 - I25.10) Patient voiced to me that he wanted a new cardiology group. I did not want to get into the politics of the situation, but he requested a referral to [facility] Cardiology. His major gripe was not having the same monitor technician every visit. I personally walked over to [facility] Cardiology and asked them how they have follow-up set up. They stated that they make an attempt to keep the patient with the same physician, but often alternates every other visit with a nurse practitioner. I relayed this information to the patient and he voiced he would like to have a referral placed to [facility]. I placed a referral for the patient, he stated he was going to go over to their office and sign a records release. 07/13/2024 Atrial fibrillation, unspecified (ICD-10 - I48.91) 10/27/2024 History of tobacco abuse (ICD-10 - Z87.891) 2ppd x 35 years (70 pack-years), quit 2012 2ppd x35 years, quit 2011. CTA 10/01/2024 did not show any significant change compared to 05/02/2023. The patient never did get his LDCT done that was due last year. 01/19/2025 History of asbestosis (ICD-10 - Z87.09) Exposure to asbestos from brake pads. No evidence of asbestos on prior CT chest. 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 10/27/2024 History of asbestosis (ICD-10 - Z87.09) Exposure to asbestos from brake pads. No evidence of asbestos on prior CT chest. 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 07/13/2024 longterm (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 of inhaled steroids (ICD-10 - Z79.51) Patient was counseled to rinse & gargle with water after inhaled corticosteroid use. 10/27/2024 Coronary arteriosclerosis (ICD-10 - I25.10) Patient changed to [facility] cardiology and voiced he is very happy with the switch. 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 01/07/2025 GERD (gastroesophageal reflux disease) (ICD-10 - K21.9) 01/19/2025 Obesity, unspecified (ICD-10 - E66.9) Healthy calorie intake recommended. 10/27/2024 Atrial fibrillation, unspecified (ICD-10 - I48.91) 07/13/2024 Obesity, unspecified (ICD-10 - E66.9) Technically obese, but he has lost 20 pounds unintentionally over the past 2 months d/t decreased appetite. 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 10/27/2024 longterm (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 of systemic steroids (ICD-10 - Z79.52) Discussed adverse effects of meterman systemic steroids including, but not limited to: increased risk of cataracts, elevated blood sugars/worsening of underlying diabetes mellitus, impaired wound healing, gastrointestinal ulcers, osteoporosis. 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 10/27/2024 Obesity, unspecified (ICD-10 - E66.9) Technically obese, but he has lost 20 pounds unintentionally over the past 2 months d/t decreased appetite. 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 01/19/2025 Other Screen patiented for obstructive sleep apnea. His Gly[place] was 13 and STOP-BANG was 8. He states his significant other has noticed him stopping breathing at night. He admits to daytime hypersomnolence. He is additionally obese. I cannot rule out ISABEL to qualify him for BiPAP via that route. He voiced agreement to proceed with a PSG. It will have to be an attended study as he is on chronic O2; an HST is not appropriate for this patient. He voiced agreement to proceed with PAP therapy if indicated. Apei-ux-rlwz was performed today regarding need for CPAP or BiPAP if he qualifies. Patient changed to [facility] cardiology and voiced he is very happy with the switch. HCO3- 39.5, Suspected chronic hypercapnic respiratory failure, which I was correct based on ABG drawn today. Plan Of Treatment Pending Test Test Name Order Date HEMOGLOBIN A1C (GLYCO) 01/07/2025 INSULIN, TOTAL 01/07/2025 LIPID PANEL (CHOL/TRIG/HDL/LDL) 01/08/20 25 URIC ACID 01/07/2025 High Sensitivity Troponin 01/07/2025 LIPID PROFILE 03/17/2025 PROF 14(COMP METB) 01/08/2025 SGOT 03/17/2025 SGPT 03/17/2025 MRI BRAIN WO CON 02/11/2025 THYROID PANEL (T4/TSH/FREE T3) 5 PSA, SCREENING 01/07/2025 Calcium, Ionized, Serum 01/08/2025 CMP (COMP MET DONAHUE) w/eGFR CKD-EPI 2024 CBC WITH DIFF 01/07/2025 Future Test Test Name Order Date CT Chest Low Dose for Screening* 024 Next Appt Details Provider Name:Hu Bunn, 03/23/2025 01:00:00 PM, [address] [place], [address], Insurance Providers Payer Name Payer Address Payer Phone Subscriber Number Group Number Insured Name Patient Relationship to Insured Coverage Start Date Coverage End Date [facility] [address] [address] [place] [address] [id number] Elise Tabor Self - patient is the insured Medical (General) History Medical History History ICD Code Centrilobular emphysema J43.2 Chronic respiratory failure with hypoxia J96.11 History of tobacco abuse Z87.891 Granulomatous lung disease J84.10 History of asbestosis Z87.09 Coronary arteriosclerosis I25.10 Thoracic aneurysm without mention of rup ture I71.20 Marijuana use F12.90 Anemia, unspecified D64.9 Celiac disease K90.0 Gastroesophageal reflux disease K21.9 History of atrial fibrillation Z86.79 History of melanoma Z85.820 Left heart thrombus I51.3 Osteoarthritis M19.90 Thoracic aortic aneurysm, without ruptur e, unspecified I71.20 Atrial fibrillation, unspecified I48.91 Chronic respiratory failure with hyperca pnia J96.12 GERD (gastroesophageal reflux disease) K 21.9 ISABEL (obstructive sleep apnea) G47.33 Surgical History Surgery Date(Month/Year) Hernia Repair cataract removal Amputation-Finger right hip replacement left hip replacement shoulder replacement-Right coronary artery bypass graft 2015 Hospitalization History Reason Date(Month/Year) [facility] ER 05/02/2023
--- OUTSIDE RECORDS SUMMARY | 2025-03-17 16:50 | XMS_ITS | Encounter Summary ---
Author Organization [facility] Address [id number] [address] [place] [address] Care Team Providers Care Public Relations Account Executive Name Role Phone Pauly Santacruz IT TELECOM TECHNICIAN-ASSOCIATE MUSIC PROFESSOR Primary Care Provider [phone] Reason for Referral * Cardiology (Routine) - Pending Review Specialty Diagnoses / Procedures Referred By Contac t Referred To Contact Diagnoses Paroxysmal atrial fibrillation ([facility]) Procedures Wireless Telemetry (In Office) Syed Cantu MD [address] [place] [address] Phone: tel: fax: Referral ID Status Reason Start Date Expiration Date V isits Requested Visits Authorized [id number] Pending Review 05/03/2024 05/03/2025 1 1 Encounter Details Date Type Department Care Team (Late st Contact Info) Description 05/03/2024 Orders Only [facility] [address] [facility] [address] [place] [address] Kenisha Manning RN Paroxysmal atrial fibrillation ([facility]) (Primary Dx) Social History Tobacco Use Types [...] fibrillation documented in this encounter Care Teams Public Relations Account Executive Relationship Specialty Start Date End Date Pauly Santacruz APRN-CHAO [address] [place] [address] PCP - General Family Medicine 06/24/24 documented as of this encounter
--- OUTSIDE RECORDS SUMMARY | 2025-03-17 16:50 | XMS_ITS | Encounter Summary ---
Author Organization [facility] Address [address] [place] [address] Care Team Providers Care Train Starter Name Role Phone Mario Zayas MD Primary Care Provider Encounter Details Date Type Department Care Team (Late st Contact Info) Description 03/08/2025 Orders Only [facility] [address] [place] [address] Melita Ignacio MA Hyperlipidemia, unspecified [...] Description 04/14/2025 10:00 AM EDT Office Visit [facility] [address] [place] [address] Dorinda Diaz MD [address] [place] [address] Scheduled Orders Name Type Priority Associated Diagnoses [...] Primary documented in this encounter Care Teams Train Starter Relationship Specialty Start Date End Date Mario Zayas MD [address] [facility] [place] [address] PCP - General Family Medicine 02/09/25 documented as of this encounter
--- OUTSIDE RECORDS SUMMARY | 2025-03-17 16:50 | XMS_ITS | Encounter Summary ---
Author Organization [facility] Address [id number] [address] [place] [address] Care Team Providers Care Process Steward Name Role Phone Pauly Santacruz CHIEF OF STAFF DOCTOR-VIDEO GAME PROGRAMMER Primary Care Provider [phone]- [phone] Encounter Details Date Type Department Care Team (Late st Contact Info) Description 06/25/2024 Orders Only [facility] [address] [facility] [address] [place] [address] External, Scanning Provider Social History [...] ECG ORDERABLES Final Result Performing Organization Address City/State/[facility] Co de Phone Number MANUALLY TRANSCRIBED RESULTS * ECG 12 lead (06/25/2024 8:13 AM EDT) us Scanning Provider External ECG ORDERABLES Final Result Performing Organization Address City/State/[facility] Co de Phone Number MANUALLY TRANSCRIBED RESULTS documented in this encounter Visit Diagnoses Not on filedocumented in this encounter Care Teams Process Steward Relationship Specialty Start Date End Date Pauly Santacruz APRN-FNP [address] [place] [address] PCP - General Family Medicine 06/24/24 documented as of this encounter
--- OUTSIDE RECORDS SUMMARY | 2025-03-17 16:50 | XMS_ITS | Patient Health Record ---
Author Organization [facility] Address [address] [place] [address] Support Name Relationship Address Phone Nikunj Causey Guarantor Unknown Reason For Referral No Information Problems Problem Type SNOMED Code ICD Code Onset Dates Problem Status W/U Status Risk Notes Problem Encntr screen for infections w sexl mode of transmiss (Z113) 03/13/2017 Active confirmed Plan Of Treatment No Information
--- OUTSIDE RECORDS SUMMARY | 2025-03-17 16:50 | XMS_ITS | Clinical Summary ---
Author Organization [facility] Address [address] [place] [address] Care Team Providers Care Early Childhood Assistant Name Role Phone Mario Zayas MD Primary Care Provider [phone] Allergies No known active allergies Medications azithromycin [...] disease 08/16/2024 Coronary artery disease invo lving north fork coronary artery of north fork heart without angina pectoris 08/16/2024 Erectile dysfunction [...] Department Care Team Description 03/08/2025 Orders Only [facility] [address] [place] [address] Melita Ignacio MA Hyperlipidemia, unspecified hyperlipidemia type (Primary Dx) 02/10/2025 Orders Only [facility] [address] [place] [address] Melita Ignacio MA Benign hypertensive heart disease 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 02/09/2025 Refill [facility] [address] [place] [address] GurpreetDanni MA Paroxysmal atrial fibrillation (CMS/HCC); Hyperlipidemia, unspecified hyperlipidemia type; Benign hypertensive heart disease 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; Palpitations 02/09/2025 Telephone [facility] [address] [place] [facility] [place] [address] GurpreetDanni mott MA 02/04/2025 Orders Only [facility] [address] [place] [address] ProviderRocky MD 12/31/2024 3:00 PM EDT Office Visit [facility] [address] [place] [facility] [address] Dorinda Diaz MD Coronary artery disease involving north fork coronary artery of north fork heart without angina pectoris (Primary Dx); Cardiomyopathy, [...] Description 04/14/2025 10:00 AM EDT Office Visit [facility] [address] [place] [address] Dorinda Diaz MD [address] [place] [address] Health Maintenance Due Date Last Done Comments [...] Months Insurance [employer] Care Teams Early Childhood Assistant Relationship Specialty Start Date End Date Mario Zayas MD [address] [facility] [address] [address] PCP - General Family Medicine 02/09/25
--- OUTSIDE RECORDS SUMMARY | 2025-03-17 16:50 | XMS_ITS | Encounter Summary ---
Author Organization [facility] Address [id number] [address] [place] [address] Care Team Providers Care Senior Applications Engineer Name Role Phone Pauly Santacruz COMPRESSED GAS PLANT WORKER-USER EXPERIENCE TEAM LEAD Primary Care Provider [phone] Reason for Visit * Reason Comments Med Change Request Encounter Details Date Type Department Care Team (Late st Contact Info) Description 02/07/2025 Refill [facility] [address] [place] [address] Pablo Zaragoza, VIC-LEAD LAYING AND GLUING MACHINE OPERATOR [address] [place] [address] Med Change Request Social History Tobacco Use [...] artery disease involving coronary bypass graft of kaw heart without angina pectoris Hx of CABG Postsurgical aortocoronary bypass status Paroxysmal atrial fibrillation ([facility]) Atrial fibrillation Aneurysm of ascending aorta without rupture History of maze procedure documented in this encounter Care Teams Senior Applications Engineer Relationship Specialty Start Date End Date Pauly Santacruz APRN-USER EXPERIENCE TEAM LEAD [address] [place] [address] PCP - General Family Medicine 06/24/24 documented as of this encounter
--- OUTSIDE RECORDS SUMMARY | 2025-03-17 18:36 | XMS_ITS | CCD ---
Author Organization [facility] Care Team Providers Care Resident Engineer Name Role Phone ERICK MELLISA STOHLER Unavailable [...] ., DARNELL Admitting Unavailable [facility] Primary Care Unavailable SAMSA ., DARNELL Attending Unavailable SAMSA ., DARNELL Consulting Unavailable SAMSA ., DARNELL Admitting Unavailable [facility] Primary Care Unavailable SAMSA ., DARNELL Attending Unavailable SAMSA ., DARNELL Consulting Unavailable GREG, KACIE Consulting Unavailable [facility] Primary Care Unavailable SAMSA ., DARNELL Attending Unavailable SAMSA ., DARNELL Consulting Unavailable SAMSA ., DARNELL Admitting Unavailable [facility] Primary Care Unavailable DR ALEYDA DYER Consulting Unavailable SAMSA ., DARNELL Attending Unavailable SAMSA ., DARNELL Admitting Unavailable SAMSA ., DARNELL Consulting Unavailable Noam CHRISTIAN, Risa Unavailable EMELY CANTU Referring Unavailable KACIE DEL REAL Primary Care Unavailable GILLIAN TAYLOR Attending Unavailable KACIE DEL REAL Referring Unavailable RISA MCNULTY Primary Care Unavailable Kacie Del Real MD Primary Care Provider Noam HO-BROADCAST TRAFFIC COORDINATORRisa Diaz Primary Care Provider LINSEY HALL Attending Unavailable LINSEY HALL Attending Unavailable LINSEY HALL Attending Unavailable ALEYDA FISHER Attending Unavailable ROLAND BILL Referring Unavailable LINSEY HALL Attending Unavailable BENNY DIAZ Attending Unavailable BENNY DIAZ Attending Unavailable Allergies Allergy Classification Reported Allergen(s) Allergy Type Date of Onset Reaction(s) Facility (10 sources) Gluten Propensity to adverse reactions 2 GI intolerance [facility] (10 sources) Isosorbide Dinitrate Drug Allergy 2 Headache [facility] Healthcare (11 sources) Gluten; Translations: [GLUTEN] Propensity to adverse reactions to food (disorder) 2 [facility] (11 sources) Isosorbide; Translations: [ISOSORBIDE MONONITRATE] Drug Allergy 2 Headache [facility] (1 source) ALLERGIES NOT ON FILE; Translations: [ALLERGIES NOT ON FILE] Propensity to adverse reactions (disorder) [facility] Repository Medications Current Medications Medication [...] FOR PAIN for 5 days 06/12/2023 Active [id number] 200 actuat albuterol 0.09 mg/actuat metered dose [...] artery disease involving coronary bypass graft of north fork heart without angina pectoris , Hx of [...] Ordered: 15-Mar-2022 DO Start : 15-Mar-2022 Active Nvrezowvmci-Jwyxtildx-Fltsgu 200-62.5-25 MCG/ACT aerosol powder (10 sources) Start: 11-19-2022 take 1 puff(s) by inhalation once daily Zctlfuxwkad-Liqlttmpg-Unjmwn 200-62.5-25 MCG/ACT aerosol powder Inhale 1 puff 1 (one) time each day. 11/19/2022 Active kxyqhzdhgac-mkbkdebkm-pgzsjn e r (TRELEGY ELLIPTA) 200-62.5-25 mcg blister with device (10 sources) Start: 03-15-2022 obkitidhfvs-qpcnkpnmh-adoqpz e r (TRELEGY ELLIPTA) 200-62.5-25 mcg blister [...] artery disease involving coronary bypass graft of north fork heart without angina pectoris , Hx of CABG , Paroxysmal atrial fibrillation ([facility]) , Aneurysm of ascending aorta without rupture [...] artery disease involving coronary bypass graft of north fork heart without angina pectoris , Hx of [...] artery disease involving coronary bypass graft of north fork heart without angina pectoris , Paroxysmal atrial [...] bedtime. 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 Normal [facility] Orders Onlyon 02-04-2025 Orders Only [id number] Armando Tabor 1960 M Date Provider Department Center 02/04/2025 [id number], PATRICIA [place] Family History Problem Relation Age of Onset Coronary artery disease Mother Coronary artery disease Father Family Status - Relation Status Age at Mother Father Sister Alive Normal [facility] Office Visiton 12-31-2024 Follow-up visit [id number] Armando Tabor 1960 M Date Provider Department Center 12/31/2024 [id number] DIAZ Family History Problem Relation Age of Onset Coronary artery disease Mother Coronary artery disease Father Family Status - Relation Status Age at Mother Father Sister Alive Level of Service:51774 [place] OFFICE/OUTPATIENT ESTABLISHED MOD MDM 30 MIN Reason for Visit and Comments: Coronary Artery Disease [187] Hyperlipidemia [182] Hypertension [651068] Normal [facility] 36on 10-07-2024 36 Regarding echo and [...] per Dr. Diaz. He verbalized understanding. Normal [facility] Office Visiton 08-16-2024 Follow-up visit [id number] Armando Tabor 1960 [facility] Provider Department Center 08/16/2024 [id number] DIAZ [facility] Family History Problem Relation Age of Onset Coronary artery disease Mother Coronary artery disease Father Family Status - Relation Status Age at Mother Father Level of Service:33476 [place] OFFICE/OUTPATIENT NEW MODERATE MDM 45 MINUTES Reason for Visit and Comments: Atrial Fibrillation [80] - Had EKG at last apt with [facility] in Jun 2024. Denies chest pain and bleeding on Eliquis. Coronary Artery Disease [187] - CABG and MAZE in 2016 Hypertension [297372] Hyperlipidemia [182] COPD [313] - Sees Dr. Oni Marrero [facility] POCT EKGOrdered By: Juana Hercules on 06-24-2024 [facility] EMG 1 Extremeityon [facility] NVC 7-8 Nerveson 06-08-2024 [facility] THEOPHYLLINEon 12-30-2022 THEOPHYLLINE 18.0 ug/mL Normal 10.0-20.0 [facility] Comment on above: Performed By: #### T ADALID #### [facility] [address] [address] [address] Karen Lee THEOPHYLLINEon 12-17-2022 THEOPHYLLINE 8.3 ug/mL Critically low 10.0-20.0 [facility] Comment on above: Performed By: #### T ADALID #### [facility] [address] [address] [address] Karen Lee Blood Pressure Cuff Sizeon 0 05-29-2022 Fall risk assessment a) No falls within the last year [facility] Work Phone: Tobacco use status [facility] b) No [facility] Work [...] Activated Vitals Vital Signs Recorded: 29May2022 02:58PM Katrhhaoavy89.2 F Heart Rate91 Ytnnphottwo93 Ooperbdg044 Gkqvelxeb99 Blood Pressure Cuff SizeLarge Height5 ft 7.32 in Fhivbe859 lb 7 oz BMI Eqxvegrurh02.15 kg/m2 BSA Calculated2.19 Tobacco Useb) No Falls Screening (Age 18+)a) No falls within the last year O2 Aojiuixwie56, Nasal Cannula Pain Scale7 Physical Exam The [...] May 29 2022 3:24PM EST (Author) Normal [facility] Referral Letteron 022 Referral Letter Mr. Tabor [...] May 29 2022 3:24PM EST (Author) Normal [facility]PA[facility] CT LUNG CANCER SCREENINGon 0 04-26-2022 CT [...] by: ALEYDA DYER Date: 2022-04-26 16:20 Normal [facility] HEMOGLOBINon 04-26-2022 Hemoglobin (Bld) [Mass/Vol] 13.6 g/dL Critically low 14.0-18.0 [facility] Comment on above: Performed By: #### H GB #### [facility] [address] [place] [address] Dr. Karen Lee Progress Noteson 06-04-2018 Protein mass conc Encounter [facility]Progress Notes by Jacquelyn Rivera PT at 06/04/2018 8:31 AMAuthor: Jacquelyn Rivear PTService: (none)Author Type: Physical TherapistFiled: 06/04/2018 8:36 [...] Pt self discharged with last txsession with PHILOSOPHY SPECIALIST.Patient is being discharged due to not returning to therapy and/or Plan of Care being .Recommend patient continue with HEP previously instructed on during therapy as appropriate.Patient may be reinstated in therapy upon new evaluation and orders from the physician.Thank You. [facility] Progress Noteson 04-23-2018 Protein mass conc Encounter Department : [facility] REHAB THERAPYProgress Notes by Berlin Valle PTA at 04/23/2018 9:00 AMAuthor: Berlin Valle PTAService: (none)Author Type: Physical Therapy AssistantFiled: 04/23/2018 9:46 AMEncounter Date: 04/23/2018Status: SignedEditor: Berlin Valle PTA (Wired Sweatband Cutter)Physical Therapy Treatment NoteVisit Number: 5Encounter diagnosis:ICD-10-CM1.Cervical giaM54.22.Headache in back of [id number] Medical Diagnosis:SUBJECTIVE: Pt requests today being his [...] t-band- Scap retract x15- B UE ext k64Qfjx tucks x15GTB rows 3o26Omlylt- STM along c-spine paraspinals, UT, and levator [...] in rotation and SB without increase in pain.Auto Hiker Goals: LTG to be met by 06/08/18 [...] Time: 10Total Treatment Time: 25 PT Treatment [facility] Progress Noteson 04-21-2018 Protein mass conc Encounter Department : [facility] REHAB THERAPYProgress Notes by Berlin Valle PTA at 04/21/2018 9:00 AMAuthor: Berlin Valle PTAService: (none)Author Type: Physical Therapy AssistantFiled: 04/21/2018 9:46 AMEncounter Date: 04/21/2018Status: SignedEditor: Berlin Valle PTA (Wired Sweatband Cutter)Physical Therapy Treatment NoteVisit Number: 4Encounter diagnosis:ICD-10-CM1.Cervical giaM54.22.Headache in back of [id number] Medical Diagnosis: CervicalgiaSUBJECTIVE:Complia nce with HEP: Pt [...] t-band- Scap retract x15- B UE ext y35Cndb tucks x15GTB rows 1j04Cvskur- STM along c-spine paraspinals, UT, and levator [...] in rotation and SB without increase in pain.Auto Hiker Goals: LTG to be met by 06/08/18 [...] Time: 17Total Treatment Time: 32 PT Treatment [facility] Progress Noteson 04-16-2018 Protein mass conc Encounter Department : [facility] THERAPYProgress Notes by Collette Villanueva PTA at 04/16/2018 9:00 AMAuthor: Collette Villanueva PTAService: (none)Author Type: Physical Therapy AssistantFiled: 04/16/2018 12:11 PMEncounter Date: 04/16/2018Status: SignedEditor: Collette Villanueva PTA (Wired Sweatband Cutter)Physical Therapy Treatment NoteVisit Number: 3Encounter diagnosis:ICD-10-CM1.Cervical giaM54.22.Headache in back of urtpD27Yqvzirf Medical Diagnosis: CervicalgiaSUBJECTIVE:Complia nce with HEP: Patient [...] t-band- Scap retract x15- B UE ext a39Pfde tucks x15GTB rows 9c93Izodwr- STM along c-spine paraspinals, UT, and levator [...] in rotation and SB without increase in pain.Skilled Nursing Goals: LTG to be met by 06/08/18 [...] 28Total Treatment Time: 43 PT Treatment Normal [facility] Progress Noteson 04-10-2018 Protein mass conc Encounter Department : [facility] THERAPYProgress Notes by Berlin Valle PTA at 04/10/2018 9:00 AMAuthor: Berlin Valle PTAService: (none)Author Type: Physical Therapy AssistantFiled: 04/10/2018 10:21 AMEncounter Date: 04/10/2018Status: SignedEditor: Berlin Valle PTA (Wired Sweatband Cutter)Physical Therapy Treatment NoteVisit Number: 2Encounter diagnosis:ICD-10-CM1.Cervical giaM54.22.Headache in back of qdmgG33Zhphezl Medical Diagnosis: CervicalgiaSUBJECTIVE:Complia nce with HEP: Pt [...] UT stretch 3x 30'Chin tucks x15GTB rows 8a05IAC: chin tuck, UT and LS stretch, scap [...] in rotation and SB without increase in pain.Auto Hiker Goals: LTG to be met by 06/08/18 [...] Time: 30Total Treatment Time: 45 PT Treatment [facility] Progress Noteson 04-08-2018 Protein mass conc Encounter Department : [facility] THERAPYProgress Notes by Jacquelyn Rivera PT at 04/08/2018 1:45 PMAuthor: Jacquelyn Rivera, PTService: (none)Author Type: Physical TherapistFiled: 04/08/2018 6:47 PMEncounter Date: 04/08/2018Status: SignedEditor: Jacquelyn Rivera PT (Physical Therapist)Physical Therapy EvaluationEncounter diagnosis:ICD-10-CM1.Cervical giaM54.22.Headache in back of mnqfL84Dsmkrvtxp provider: Mellisa Clarke,*Primary Medical Diagnosis: CervicalgiaPlan of [...] Home: 15Prior Level of Functioning: Level of [place]: [facility] of Functioning: Outcome Score: NDI (26 raw score NDI, 52% disability) Functional deficits: reports no functional deficits, able to do everything just withincreased pain. Level of [place]: Modified IndependentSleep Status/Sleep Hygiene: Preferred Sleep Position: [...] codes)G8978 Mobility Current Status; Severity: CK 40-59% asybzomaG2939 Mobility Goal Status; Severity: CI 1-19% impairedOutcome measure(s)/Test(s) used/Result(s): 52% disability on NDI.Clinical Judgment: Moderate to severe impairement, decreased neck ROM and strength, tenderness totrigger points moderateNew Category to Xccdyg-Al-Capv only?:NoEvaluation Breakdown DescriptionPatient HistoryComorbiditiesEnvironme ntal/Personal factorsLearning/CognitionDome stic [...] in rotation and SB without increase in pain.Auto Hiker Goals: LTG to be met by 06/08/18 [...] Time: 60Time in: 1:44Time Out: 2:45 PT [facility] Vital Signs Date Time Vital Sign Value Performing Clinician Facility 12-27-2024 10:42-0400 Body height 177.8 cm Linsey LI Work Phone: [facility] 12-27-2024 10:42-0400 Body mass index (BMI) [Ratio] 35.87 kg/m2 Linsey LI Work Phone: [facility] 12-27-2024 10:42-0400 Body weight 113.4 kg Linsey LI Work Phone: [facility] 12-27-2024 10:42-0400 Diastolic blood pressure 82 mm[Hg] Linsey LI Work Phone: [facility] 12-27-2024 10:42-0400 Heart rate 75 /min Linsey LI Work Phone: [facility] 12-27-2024 10:42-0400 Respiratory rate 16 /min Linsey LI Work Phone: [facility] 12-27-2024 10:42-0400 SaO2% (BldA) [Mass fraction] 94 % Linsey LI Work Phone: [facility] 12-27-2024 10:42-0400 Systolic blood pressure 142 mm[Hg] Linsey LI Work Phone: [facility] 06-24-2024 13:52-0400 Body height 172.7 cm Gillian Taylor MD Work Phone: [facility] [employer] [facility] 06-24-2024 13:52-0400 Body mass index (BMI) [Ratio] 37.26 kg/m2 Gillian Taylor MD Work Phone: [facility] 06-24-2024 13:52-0400 Body weight 111.13 kg Gillian Taylor MD Work Phone: [facility] 06-24-2024 13:52-0400 Diastolic blood pressure 62 mm[Hg] Gillian Taylor MD Work Phone: [facility] 06-24-2024 13:52-0400 Heart rate 74 /min Gillian Taylor MD Work Phone: [facility] 06-24-2024 13:52-0400 SaO2% (BldA) [Mass fraction] 94 % Gillian Taylor MD Work Phone: [facility] 06-24-2024 13:52-0400 Systolic blood pressure 122 mm[Hg] Gillian Taylor MD Work Phone: [facility] 06-09-2024 11:17-0400 Body height 172.7 cm Linsey Hall PA Work Phone: [facility] 06-09-2024 11:17-0400 Body mass index (BMI) [Ratio] 38.01 kg/m2 Linsey Hall PA Work Phone: [facility] 06-09-2024 11:17-0400 Body weight 113.4 kg Linsey Hall PA Work Phone: [facility] 06-09-2024 11:17-0400 Diastolic blood pressure 84 mm[Hg] Linsey Hall PA Work Phone: [facility] 06-09-2024 11:17-0400 Heart rate 78 /min Linsey Hall PA Work Phone: [facility] 06-09-2024 11:17-0400 Respiratory rate 16 /min Linsey Hall PA Work Phone: [facility] 06-09-2024 11:17-0400 SaO2% (BldA) [Mass fraction] 93 % Linsey LI Work Phone: [facility] 06-09-2024 11:17-0400 Systolic blood pressure 132 mm[Hg] Linsey LI Work Phone: [facility] 05-29-2022 14:58-0400 Body height 170.99 cm Referring [...] Provider Unknown [facility] Work Phone: 05-29-2022 14:58-2030 7 1 Referring Provider Unknown [facility] Work Phone: Comment on above: [employer] Encounters Encounter Date Encounter Type Care Provider Facility Start: 12-31-2024 End: 12-31-2024 ambulatory [facility] Start: 12-27-2024 End: 12-27-2024 Bamboo flowsheet Barbara LI Work Phone: [facility] Start: 12-27-2024 End: 12-27-2024 Bamboo wiMANheet Barbara LI Work Phone: [facility] Start: [...] Lumbosacral radiculopathy Start: 08-16-2024 End: 08-16-2024 ambulatory [facility] Start: 07-29-2024 End: 08-03-2024 Refill Pablo Zaragoza TELECOMMUNICATION SYSTEMS DESIGNER-[employer] Work Phone: [facility] Comment on above: Med Refill Start: 06-24-2024 End: 06-24-2024 Office outpatient visit 25 minutes Gillian Taylor MD Work Phone: [facility] Comment on above: Coronary artery dise ase involving coronary bypass graft of north fork heart without angina pectoris (Primary Dx); Paroxysmal atrial fibrillation ([facility]); Primary hypertension; Mixed hyperlipidemia; Left ventricular dysfunction Start: 06-24-2024 End: 06-24-2024 ambulatory GILLIAN TAYLOR [facility] Start: 06-23-2024 End: 06-23-2024 Telephone encounter Juana Hercules CMA [facility] Start: 06-09-2024 End: 06-09-2024 Office outpatient visit 15 minutes Linsey LI Work Phone: [employer] [address] Comment on above: 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 with discogenic back pain and lower extremity pain (Primary Dx); Neck pain; Chronic daily headache; Tremor Start: 06-09-2024 End: 06-09-2024 ambulatory LINSEY HALL Not Available Start: 06-08-2024 End: 06-08-2024 Bamboo flowsheet Aleyda Fisher MD Work Phone: [facility] [employer] [address] Start: 06-08-2024 End: 06-08-2024 Bamboo flowsheet Aleyda Fisher MD Work Phone: [facility] [place] [address] Start: 06-08-2024 End: 06-08-2024 Patient encounter procedure Aleyda Fisher MD Work Phone: [facility] [employer] [address] Comment on above: Carpal tunnel syndro me of left wrist (Primary Dx) Start: 06-08-2024 End: 06-08-2024 ambulatory ALEYDA FISHER Not Available Start: 05-21-2024 End: 05-21-2024 Refill Rad[facility] RN [facility] Comment on above: Med Refill Start: 05-17-2024 End: 05-17-2024 ambulatory EMELY CANTU [facility] Comment on above: DDD (degenerative di sc disease), lumbar; Lumbosacral radiculopathy Start: 05-14-2024 End: 05-14-2024 Telephone encounter Juana Hercules CMA [facility] Start: 04-30-2024 End: 04-30-2024 Telephone encounter Ashlee Lim RN [facility] Start: 03-15-2024 End: 03-15-2024 ambulatory LINSEY HALL Not Available Start: 02-18-2024 End: 02-19-2024 Refill Ne[facility] Weathers [facility] Comment on above: Med Refill Start: 01-24-2024 End: 01-28-2024 Refill Elise Borjas MD Work Phone: [facility] Comment on above: Med Refill Start: 01-21-2024 End: 01-21-2024 ambulatory LINSEY HALL Not Available Start: 12-30-2022 End: 12-31-2022 ambulatory DARNELL ALICEA . Facility: Start: 12-17-2022 End: 12-18-2022 ambulatory DARNELL ALICEA . Facility: Start: 06-17-2022 AUDIT Referring Prov ider Unknown [facility] [facility] Work Phone: Start: 05-29-2022 Office outpatient ne w 45 minutes Referring Provider Unknown [facility] Work Phone: Start: 05-29-[address] Popeye Peña Faclouise lity:[facility] Start: 05-21-2022 End: 08-14-2022 ambulatory [facility] Facility: Start: 04-26-2022 End: 04-27-2022 ambulatory [facility] Facility: Start: 04-23-2018 End: 04-23-2018 Patient encounter [place] Demarco [facility] Start: 04-21-2018 End: 04-21-2018 Patient encounter [place] Demarco [facility] Start: 04-16-2018 End: 04-16-2018 Patient encounter COLLETTE VILLANUEVA [facility] Start: 04-10-2018 End: 04-10-2018 Patient encounter [place] Demarco [facility] Start: 04-08-2018 End: 04-08-2018 Patient encounter MELLISA CLARKE [facility] Patient encounter status Referri ng Provider Unknown [...] bypass grafting Hx of CABG Pablo Zaragoza TELECOMMUNICATION SYSTEMS DESIGNER-[employer] Work Phone: History of coronary artery bypass grafting Hx of CABG Keron Arreguin PA-C Work Phone: Prosthetic arthropla sty of shoulder Referring Provider Unknown Total replacement of hip Ref erring Provider Unknown Plan of Treatment Date Care Activity Detail Author Start: 08-13-2033 DTaP,Tdap and Td Vaccines (2 - Td or Tdap) DTaP,Tdap and Td Vaccines (2 - Td or Tdap) [facility] Start: 06-24-2025 Adult BMI Screening Adult BMI Screen ing [facility] Start: 06-24-2025 Tobacco Screening Tobacco Screening [facility] Start: 05-16-2025 End: 05-16-2025 Patient encounter procedure 05/16/2025 10:40 AM EDT Office Visit [facility] [address] [place] [address] Linsey Hall PA [address] [place] [address] [facility] Start: 05-09-2025 Influenza vaccination Influenz a Vaccine (Season Ended) [facility] Start: 12-23-2024 End: 12-23-2024 Patient encounter procedure 12/23/2024 10:40 AM EDT Office Visit [facility] SANTIAGO [address] [place] [address] Linsey Hall PA [address] [place] [address] [facility] SANTIAGO Start: 12-21-2024 End: 12-21-2024 Patient encounter procedure 12/21/2024 10:40 AM EDT Office Visit [facility] [address] [place] [address] Linsey Hall PA [address] [place] [address] [facility] [address] Start: 07-29-2024 Adult BMI Screening Adult BMI Screen ing [facility] Start: 07-29-2024 Tobacco Screening Tobacco Screening [facility] Start: 06-24-2024 End: 06-24-2025 CT Chest WO and CT angiogram Coronary arteries W contrast IV CT angiogram chest Imaging Routine Coronary artery disease involving coronary bypass graft of north fork heart without angina pectoris Expected: 06/24/2024, Expires: 06/24/2025 [facility] Comment on above: Expected: 06/24/2024 , Expires: 06/24/2025 Start: 06-24-2024 End: 06-24-2025 Echo complete W/O contrast Echo complete W/O contrast Echocardiography Routine Coronary artery disease involving coronary bypass graft of north fork heart without angina pectoris Expected: 06/24/2024, Expires: 06/24/2025 [facility] Comment on above: Expected: 06/24/2024 , Expires: 06/24/2025 Start: 06-24-2024 End: 06-24-2024 Patient encounter procedure 06/24/2024 2:00 PM EDT Office Visit [facility] [address] [place] [address] Gillian Taylor MD [address] [place] [address] [facility] Start: 06-09-2024 End: 06-09-2024 Patient encounter procedure 06/09/2024 11:20 AM EDT [facility] [address] [place] [address] Linsey Hall PA [address] [place] [address] [facility] Start: 06-08-2024 End: 06-08-2024 Patient encounter procedure [facility] Comment on above: Arrived Start: 05-17-2024 End: 05-17-2024 Professional / ancillary services management 05/17/2024 8:30 AM EDT Ancillary Procedure [facility] [address] [place], [place] [id number] Emely Cantu MD [address] [place] [address] [facility] Start: 05-09-2024 Influenza vaccination [facility] Start: 2010 Administration of varicella zoster vaccine Zoster (Shingles) Vaccine (1 of 2) [facility] Start: 1979 DTaP,Tdap and Td Vaccines (1 - Tdap) DTaP,Tdap and Td Vaccines (1 - Tdap) [facility] Start: 1978 Adult BMI Follow Up Plan Adult BMI F ollow Up Plan [facility] Start: 1972 Depression Screening Depression Scre ening [facility] Start: 1960 Screening for malign ant neoplasm of colon [facility] End: 06-24-2025 CBC panel - Blood by Automated count CBC Lab Routine Paroxysmal atrial fibrillation (CMS-HCC) 1 Occurrences starting 06/24/2024 until 06/24/2025 [facility] Comment on above: 1 Occurrences starti ng 06/24/2024 until 06/24/2025 End: 06-24-2025 Comprehensive metabolic 2000 panel - Serum or Plasma CMP Lab Routine Primary hypertension 1 Occurrences starting 06/24/2024 until 06/24/2025 [facility] Comment on above: 1 Occurrences starti ng 06/24/2024 until 06/24/2025 End: 06-24-2025 Lipid panel Lipid panel Lab Routine Mixed hyperlipidemia 1 Occurrences starting 06/24/2024 until 06/24/2025 [facility] Work Phone: Comment on above: 1 Occurrences starti ng 06/24/2024 until 06/24/2025 Immunizations Immunization Date Immunization Notes Care Provider [facility] 08-13-2023 influenza virus vaccine, unspecified formulation Yuri Chapa MA [facility] 05-23-2021 influenza, high dose seasonal, preservative-free Yuri Chapa MA [facility] 05-23-2021 influenza virus vaccine, unspecified formulation Elise Borjas MD Work Phone: [facility] 10-25-2020 Pfizer Purple Cap SARS-CoV-2 Vaccination Yuri Chapa MA [facility] 09-20-2020 Pfizer Purple Cap SARS-CoV-2 Vaccination Yuri Chapa MA [facility] Payers Date Payer Category Payer Medicare (Managed Care) [employer] M [employer] ADVANTAGE [id number] 2019 Medicare [id number] 2019 Medicare HMO [employer] MEDICARE [id number] 1960 Unknown [id number] [id number]. 2.356 1960 Unknown [id number] 2.16.840.1.441619.3.579. 2.593 1960 Unknown [id number] 2.16.840.1.017820.3.579. 2.593 1960 Unknown [id number] 2.16.840.1.043243.3.579. 2.593 1960 Unknown [id number] 2.16.840.1.627009.3.579. 2.593 1960 Unknown [id number] 2.16.840.1.889374.3.579. 2.1286 1960 Unknown [id number] 2.16.840.1.618637.3.579. 2.1286 1960 Unknown [id number] 2.16.840.1.021463.3.579. 2.1259 1960 Unknown [id number] 2.16.840.1.696097.3.579. 2.1259 1960 Unknown [id number] 2.16.840.1.513212.3.579. 2.1259 1960 Unknown [id number] 2.16.840.1.409645.3.579. 2.1259 1960 Unknown [id number] 2.16.840.1.193229.3.579. 2.1259 1959 Medicare [id number] Unknown Social History Date Type Detail Facility Start: 03-15-2024 End: 12-27-2024 Social alcohol use Social alcohol use [facility] Start: 05-20-2022 End: 03-15-2024 Tobacco smoking status [facility] Ex-smoker [facility] Start: 09-08-1974 End: 09-08-2009 History of tobacco use Current smoker [facility] Start: 09-08-1974 End: 09-08-2009 History of tobacco use Cigarette Smoker [facility] Start: 05-20-2022 End: 03-15-2024 Tobacco use and exposure Smokeless tobacco non-user [facility] Start: 03-15-2024 End: 12-27-2024 Alcoholic beverage intake Lifetime non-drinker (finding) [facility] Start: 03-15-2024 End: 12-27-2024 Tobacco use panel [facility] Start: 02-13-2023 Alcohol Comment ocassionally [facility] Start: 1960 Sex assigned at Male [facility] Start: 02-21-2023 Gender identity Identifies as male gender (finding) [facility] Start: 07-29-2023 End: 06-24-2024 Alcoholic beverage intake Ex-drinker (finding) [facility] Within the past 12 months we worried whether our food would run out before we got money to buy more. Never True [facility] Start: 05-20-2022 Alcohol Comment ocassional [facility] Start: 1960 Sex assigned at Not on file P [facility] Start: 03-22-2022 Sex Male (finding) [facility] Clinical Notes 04-30-2024 to [...] alcohol abuse He used to follow with [facility] cardiology. He states that overall he [...] developed, in no (more content not included)... [facility] 12-27-2024 History of Present illness Narrative Subjective Elise Tabor is a 64 y.o. year old male Chief Complaint Patient presents with Back Pain Past Medical History: Diagnosis Date Anemia Atrial fibrillation ([facility]) Celiac disease (CMS/HCC) 03/04/2019 Cervicalgia 04/08/2018 Chronic [...] triceps, wrist extensors, wrist extensors, wrist flexor, information systems operator strength 5/5. LUE Strength deltoid, biceps, triceps, wrist extensors, wrist extensors, wrist flexor, information systems operator strength 5/5. RLE Strength illopsoas, quadriceps, tibialis [...] or worsening symptoms documented in this encounter [facility] 12-20-2024 Telephone encounter Note Patient is in need of refill, appt had to be rescheduled due to provider being out. Please send to [facility] [place] [facility] 12-20-2024 Miscellaneous Notes Patient is in need of refill, appt had to be rescheduled due to provider being out. 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 Explained to him that we do try to keep pt's with same doc but it does not always work out that way. Pt understood but has already seen the the other group. documented in this encounter [facility] 11-25-2024 Telephone encounter Note Pt calls to let us know he is switching emergency care attendant to a group in [place] because he does not like seeing a different doctor every time he comes here. Explained to him that we do try to keep pt's with same doc but it does not always work out that way. Pt understood but has already seen the the other group. [facility] 09-09-2024 Telephone encounter Note 06/09/2024 Continue Lyrica 150mg PO TID for neuropathic pain [facility] reviewed. Last filled 05/17/2024 for 90 day supply. Due 08/15/2024 [facility] 09-09-2024 Miscellaneous Notes 06/09/2024 Continue Lyrica 150mg PO TID for neuropathic pain [facility] reviewed. Last filled 05/17/2024 for 90 day supply. Due 08/15/2024 documented in this encounter [facility] 08-16-2024 Note [place] [facility] Note Reason for cardiology consult: Establish new emergency care attendant, CAD, congestive heart failure, ascending aortic aneurysm Chief Complaint: Dyspnea on exertion HPI: Elise Tabor is a 64 y.o. male with history of coronary artery disease and coronary artery bypass surgery and maze procedure, paroxysmal atrial fibrillation, s/p ablation in [place], thoracic aortic aneurysm, left ventricle dysfunction, hypertension, hyperlipidemia COPD, prior tobacco and alcohol abuse He used to follow with [facility] cardiology. He states that overall he [...] or gallops. RESPIR (more content not included)... [facility] 07-29-2024 Miscellaneous Notes [facility] 06/24/24 [facility] 07-29-2024 Telephone encounter Note [facility] 06/24/24 [facility] 06-24-2024 History of Present illness Narrative Elise Tabor Date of visit: 06/24/2024 Date of : 1960 Age: 64 y.o. Patient Active Problem List Diagnosis Coronary artery disease involving coronary bypass graft of north fork heart without angina pectoris Paroxysmal atrial fibrillation [...] 65 mg by mouth daily with breakfast. zunkzhzguyk-sbmwavijk-ouednhev (TRELEGY ELLIPTA) 200-62.5-25 mcg blister with device [...] History: Diagnosis Date Arthritis Ascending aortic aneurysm ([facility]) Atrial fibrillation ([facility]) Celiac disease COPD (chronic obstructive pulmonary disease) ([facility]) Coronary artery disease with history of coronary [...] artery disease involving coronary bypass graft of north fork heart without angina pectoris - POCT EKG [...] APRN-CHAO Referring Physician: Kacie Del Real MD [address] [place] [address] documented in this encounter [facility] 06-24-2024 Instructions Gillian Taylor MD - 06/24/2024 2:00 PM EDT Laboratory studies CTA of the aorta Echocardiogram documented in this encounter [facility] 06-23-2024 Miscellaneous Notes Called patient to remind them to bring their most current copy of their medication list with them to their appt. Patient verbalizes understanding. documented in this encounter [facility] 06-23-2024 Telephone encounter Note Called patient to remind them to bring their most current copy of their medication list with them to their appt. Patient verbalizes understanding. [facility] 06-09-2024 History of Present illness Narrative Subjective Elise Tabor is a 64 y.o. year old male Chief Complaint Patient presents with Back Pain Neck Pain Tremors Past Medical History: Diagnosis Date Anemia Atrial fibrillation (CMS/HCC) Celiac disease (CMS/HCC) 03/04/2019 Cervicalgia 04/08/2018 Chronic obstructive lung disease (CMS/HCC) 01/22/2018 Chronic obstructive pulmonary disease (COPD) ([facility]) Coronary artery disease [place] Emphysema of lung ([facility]) H/O hernia repair Headache in back of head 04/08/2018 Peripheral polyneuropathy 06/27/2023 Pneumonia Rheumatoid arthritis ([facility]) Sinus tachycardia 01/22/2018 Past Surgical History: Procedure [...] handles -admits hand weakness -some trouble with information systems operator ROS Review of Systems Constitutional: Negative for [...] triceps, wrist extensors, wrist extensors, wrist flexor, information systems operator strength 5/5. LUE Strength deltoid, biceps, triceps, wrist extensors, wrist extensors, wrist flexor, information systems operator strength 5/5. RLE Strength illopsoas, quadriceps, tibialis [...] or worsening symptoms documented in this encounter [facility] 06-08-2024 History of Present illness Narrative Images from the original note were not included. Reason for Appointment: EMG Patient: Elise Tabor : 1960 EMG Computer: Desk Referring Physician: Roland Bill PA-C EMG: WALTER photoengraving helper: Vera Zuñiga CMA Office Location: [place] Reason for EMG: c/o pain and paresthesia in the arm from the shoulder down. No Hx of DM, takes Eliquis and ASA Comments: Procedure explained to the patient who expressed understanding. documented in this encounter [facility] 05-14-2024 Miscellaneous Notes Phoned pt to advise that appt scheduled for 05/17/2024 is the date that his EM will be sent out and is NOT an actual appt. Verbalized understanding. documented in this encounter [facility] 05-14-2024 Telephone encounter Note Phoned pt to advise that appt scheduled for 05/17/2024 is the date that his EM will be sent out and is NOT an actual appt. Verbalized understanding. [facility] 04-30-2024 Miscellaneous Notes RUSTIC FENCE BUILDER, Patient called and said that he has [...] since he has not been in a-fib [facility] 2017, is there a chance he would be able to dc Eliquis at some point. Please advise. Thank you! 3 boxes of Eliquis in sample cabinet for patient greens picker. This is something we would need [...] patient to call us back to review RUSTIC FENCE BUILDER's response. documented in this encounter [facility] 04-30-2024 Telephone encounter Note RUSTIC FENCE BUILDER, Patient called and said that he has [...] since he has not been in a-fib [facility] 2017, is there a chance he would be able to dc Eliquis at some point. Please advise. Thank you! 3 boxes of Eliquis in sample cabinet for patient greens picker. [facility] 04-30-2024 Telephone encounter Note This is something [...] Would continue Eliquis in the meantime. [facility] 04-30-2024 Telephone encounter Note Amml asking patient to call us back to review RUSTIC FENCE BUILDER's response. [facility] Evaluation note Diagnosis Carpal tunnel syndrome of left wrist- Primary documented in this [facility] Diagnosis Degeneration of intervertebral disc of lumbar region with discogenic back pain and lower extremity pain- Primary Neck pain Cervicalgia Chronic daily headache Headache Tremor Abnormal involuntary movements documented in this encounter [facility]* Diagnosis DDD (degenerative disc disease), lumbar Degeneration of lumbar or lumbosacral intervertebral disc Lumbosacral radiculopathy Thoracic or lumbosacral neuritis or radiculitis, unspecified [facility] Diagnosis DDD (degenerative disc disease), lumbar Degeneration of lumbar or lumbosacral intervertebral disc Lumbosacral radiculopathy Thoracic or lumbosacral neuritis or radiculitis, unspecified documented in this encounter [facility]* Diagnosis Coronary artery disease involving coronary bypass graft of north fork heart without angina pectoris Hx of CABG Postsurgical aortocoronary bypass status Paroxysmal atrial fibrillation (CMS-HCC) Atrial fibrillation Aneurysm of ascending aorta without rupture (CMS-HCC) History of maze procedure [facility] Diagnosis Coronary artery disease involving coronary bypass graft of north fork heart without angina pectoris Hx of CABG Postsurgical aortocoronary bypass status Paroxysmal atrial fibrillation (CMS-HCC) Atrial fibrillation Aneurysm of ascending aorta without rupture (CMS-HCC) History of maze procedure [facility] Diagnosis Coronary artery disease involving coronary bypass graft of north fork heart without angina pectoris Paroxysmal atrial fibrillation (CMS-HCC) Atrial fibrillation Aneurysm of ascending aorta without rupture (CMS-HCC) Hx of CABG 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 [facility] Diagnosis Coronary artery disease involving coronary bypass graft of north fork heart without angina pectoris- Primary Paroxysmal atrial fibrillation (CMS-HCC) Atrial fibrillation Primary hypertension Unspecified essential hypertension Mixed hyperlipidemia Left ventricular dysfunction Left heart failure [facility] Diagnosis Coronary artery disease involving coronary bypass graft of north fork heart without angina pectoris Paroxysmal atrial fibrillation (CMS-HCC) Atrial fibrillation Aneurysm of ascending aorta without rupture (CMS-HCC) Hx of CABG 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 [facility] Diagnosis Coronary artery disease involving coronary bypass graft of north fork heart without angina pectoris Hx of CABG Postsurgical aortocoronary bypass status Paroxysmal atrial fibrillation (CMS-HCC) Atrial fibrillation Aneurysm of ascending aorta without rupture (CMS-HCC) History of maze procedure [facility] Diagnosis DDD (degenerative disc [...] oxygen chronically. He is set to begin pulmonaryrehabilitation.[facility] Work Phone: History of Present illness NarrativeMrLeyla Tabor is referred for consideration of LVRS. 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 He is on 3 L nasal cannula oxygen chronically. He is set to begin pulmonaryrehabilitation.[facility] Work Phone: History of Present illness NarrativeMr. Tabor is referred for consideration of LVRS. 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 He is on 3 L nasal cannula oxygen chronically. He is set to begin pulmonaryrehabilitation.[facility] Work Phone: InstructionsNot on filedocumented in this [...] Aleyda Fisher MD [address] [place] [address] Referral ID Status Reason Start Date Expiration Date V isits Requested Visits Authorized [id number] Pending Review 06/08/2024 12/05/2024 1 1 Additional Source Comments (unrecognized sect ion and content) No Status Records FoundNo Status Records FoundNo Status Records FoundNo Status Records FoundNo Status Records FoundNo Status Records FoundNo Status Records Found INFORMATION SOURCE (unrecogn ized section and content) DATE CREATED AUTHOR 07/04/2018 [facility] DATE CREATED AUTHOR AUTHOR'S ORGANIZ ATION 06/09/2022 [facility] DATE CREATED AUTHOR AUTHOR'S ORGANIZ ATION 06/09/2022 [facility] DATE CREATED AUTHOR AUTHOR'S ORGANIZ ATION 02/14/2023 [facility] DATE CREATED AUTHOR AUTHOR'S ORGANIZ ATION 07/06/2024 [facility] DATE CREATED AUTHOR AUTHOR'S ORGANIZ ATION 12/27/2024 [facility] EPIC DATE CREATED AUTHOR AUTHOR'S ORGANIZ ATION 02/10/2025 [facility] Care Teams (unrecognized sec tion and content) Resident Engineer Relationship Specialty Start Date End Date Risa Mcnulty NP [address] [phone] Referring Physician Family Medicine 03/15/24 Resident Engineer Relationship Specialty Start Date End Date Risa Mcnulty NP [address] [place] [address] Referring Physician Family Medicine 03/15/24 Resident Engineer Relationship Specialty Start Date End Date Risa Mcnulty NP [address] [place] [address] Referring Physician Family Medicine 03/15/24 Resident Engineer Relationship Specialty Start Date End Date Risa Mcnulty, SHIPS OR BARGES LOADER [address] [place] [address] Referring Physician Family Medicine 03/15/24 Resident Engineer Relationship Specialty Start Date End Date Risa Mcnulty, SHIPS OR BARGES LOADER [address] [place] [address] Referring Physician Family Medicine 03/15/24 Resident Engineer Relationship Specialty Start Date End Date Kacie Del Real MD [address] [place] [id number] PCP - General Family Medicine 03/22/22 Resident Engineer Relationship Specialty Start Date End Date Kacie Del Real MD [address] [place] [phone] PCP - General Family Medicine 03/22/22 Resident Engineer Relationship Specialty Start Date End Date Kacie Del Real MD [address] [place] [address] [phone] PCP - General Family Medicine 03/22/22 Resident Engineer Relationship Specialty Start Date End Date Kacie Del Real MD [address] [place] [phone] PCP - General Family Medicine 03/22/22 Resident Engineer Relationship Specialty Start Date End Date Kacie Del Real MD [address] [place] [phone] PCP - General Family Medicine 03/22/22 Resident Engineer Relationship Specialty Start Date End Date Risa Mcnulty, TELECOMMUNICATION SYSTEMS DESIGNER-BROADCAST TRAFFIC COORDINATOR [address] [place] [id number] PCP - General Family Medicine 06/24/24 Resident Engineer Relationship Specialty Start Date End Date Risa Mcnulty, TELECOMMUNICATION SYSTEMS DESIGNER-BROADCAST TRAFFIC COORDINATOR [address] [place] [address] PCP - General Family Medicine 06/24/24 Resident Engineer Relationship Specialty Start Date End Date Risa Mcnulty TELECOMMUNICATION SYSTEMS DESIGNER-BROADCAST TRAFFIC COORDINATOR [address] [place] [address] PCP - General [facility] Medicine 06/24/24 Resident Engineer Relationship Specialty Start Date End Date Risa Mcnulty APRN-BROADCAST TRAFFIC COORDINATOR [address] [place] [address] PCP - General [facility] Medicine 06/24/24 Resident Engineer Relationship Specialty Start Date End Date Risa Mcnulty, SHIPS OR BARGES LOADER [address] [place] [phone] Referring Physician Family Medicine 03/15/24 Reason for Visit (unrecogniz ed section and content) Specialty Diagnoses / Procedures Referred By Tonya t Referred To Contact Neurology Diagnoses LUE EMG paresthesias of hand, numbness and tingling, ref by Wei Bill PACr20.2 Procedures [place] NERVE CONDUCTION STUDIES 9-10 STUDIES [place] NEEDLE EMG EA EXTREMTY W/PARASPINL [place] [address] [place] [address] Aleyda Fisher MD [address] [place] [address] Referral ID Status Reason Start Date Expiration Date V isits Requested Visits Authorized [id number] Closed Perform Procedure 06/08/2024 12/05/2024 1 1 [...] BE BASED ON THE PRIMARY CLINICAL RECORDS. [employer] provides no warranty or guarantee of the accuracy or completeness of information in this document.
[2025-03-18] MEDS: REGADENOSON 0.4 MG/5 ML SYRINGE IV (11:17)
--- NOTE | 2025-03-18 11:21 | PC.NURSE ---
Nursing Note Cardiac Stress Test Reviewed: Medication, allergies and patient history reviewed. Stress Test: [x ] Patient tolerated stress test well. [ ] Patient unable to tolerate walking on treadmill. Switched to Lexiscan stress test. [x ] No chest pain noted per patient [ ] Chest pain that resolved prior to leaving stress lab. [x ] No dyspnea noted. [ ] Dyspnea that resolved prior to leaving stress lab. [x ] Patient left stress lab asymptomatic and hemodynamically stable. [ ] Patient taken to the Emergency Room due to non-resolving symptoms following stress test. [ ] Patient achieved target heart rate. [ ] Patient unable to achieve target heart rate. [ ] Aminophylline administered as reversal agent to Lexiscan (Regadenoson). [ ] Nitro administered. Nursing Comments:Pt had Lexiscan test done and tolerated well. Pt had no SOB other then his normal and no CP. Pt ambulated to cafeteria for breakfast prior to second set of images.
--- NOTE | 2025-03-18 19:58 | P.STRESS_ITS ---
Stress Test Stress Test Allergies Allergy/AdvReac Type Severity Reaction Status Date / Time No Known Drug Allergies Allergy Verified 08/14/23 01:41 Requesting physician: Dorinda Diaz Procedure: Lexiscan nuclear stress test General Information: Reason for Stress Test: [Shortness of breath, history of coronary artery disease] Cardiac History and Risk Factors: [History of coronary artery disease, hyperte nsion, hyperlipidemia] Resting 12 - Lead Electrocardiogram: Resting EKG showed normal sinus rhythm, heart rate 77 bpm, ST-T abnormalities in inferior and lateral leads Resting heart rate 76 bpm, resting blood pressure 134/82 mmHg Patient was injected with Lexiscan 0.4 mg IV and monitored for few minutes. Patient did not report any symptoms. Peak heart rate to 101 bpm which represents 64% of age-predicted maximum heart rate. Peak blood pressure 138/82 mmHg. EKG throughout the test did not show any significant changes or any significant arrhythmias Stress Test: Protocol: [Lexiscan] Exercise Capacity: [Not applicable] Blood Pressure Response: [Normal] Rhythm: [No arrhythmia] ST - Response: [No changes] Patient Response: [Normal] Interpretation: Negative Lexiscan EKG stress test for ischemia Nuclear myocardial perfusion images result is reported separately Dorinda Diaz MD, FACC
== END 2025-03-17 10:31 | disposition home or self-care (01) ==
LOC: NM 16:48
PROVIDERS: PCP Family Medicine; Visit Provider Internal Medicine Cardiovascular Disease
DX: R06.09 Other forms of dyspnea (principal); I25.10 Atherosclerotic heart disease of native coronary artery without angina pectoris; I34.0 Nonrheumatic mitral (valve) insufficiency; I25.5 Ischemic cardiomyopathy
CPT/HCPCS: 78452; 93017; A9500; C8929; J2785; Q9950

== ENCOUNTER 2025-04-19 12:05 | Outpatient (OUT) | payer MEDICARE, SELFPAY ==
[2025-04-19 12:35] LABS: Hematocrit 43.3 % (42.0-54.0); Hemoglobin 14.4 g/dL (14.0-18.0); Immature Granulocytes Abs Auto 0.06 10^3/uL (0.00-0.03); Immature Granulocytes Pct Auto 0.6 % (0.0-0.5); Lymphocytes Absolute Auto 0.6 10^3/uL (1.2-3.8); Mean Corpuscular HGB Conc 33.3 g/dL (29.9-35.2); Mean Corpuscular Hemoglobin 32.7 pg (25.9-34.0); Mean Corpuscular Volume 98.2 fL (80.0-94.0); Platelet Count 154 10^3/uL (150-450); Red Blood Count 4.41 10^6/uL (4.70-6.10); White Blood Count 9.6 10^3/uL (4.0-11.0)
[2025-04-19 13:55] LABS: Anion Gap 4.5; Blood Urea Nitrogen 25.0 mg/dL (7.0-18.0); Calcium 10.9 mg/dL (8.5-10.1); Carbon Dioxide 32.6 mmol/L (21.0-32.0); Chloride 105 mmol/L (98-107); Estimated GFR (African America >60 (>=60 mL/min/1.73m^2); Estimated GFR (Non-African Ame >60 (>=60 mL/min/1.73m^2); Glucose 132 mg/dL (74-106); Potassium 5.1 mmol/L (3.5-5.1); Sodium 137 mmol/L (136-145)
== END 2025-04-19 12:06 | disposition home or self-care (01) ==
LOC: LAB 12:08
PROVIDERS: PCP Family Medicine; Visit Provider Internal Medicine Cardiovascular Disease
DX: R94.39 Abnormal result of other cardiovascular function study (principal)
CPT/HCPCS: 36415; 80048; 85025

== ENCOUNTER 2025-05-13 11:29 | Outpatient (OUT) | payer MEDICARE, SELFPAY ==
--- OUTSIDE RECORDS SUMMARY | 2012-03-06 05:34 | XMS_ITS | Continuity of Care Document ---
Author Organization [facility] Address [address] [place] [address] [place] [address] Phone Care Team Providers Care Blood Bank Business Manager Name Role Phone JUAN FINK MD Unavailable [...] on Encounter [facility], [address] [place] [address], [address] [place] [address], tel:[phone] [facility] No Information 2 DANAE MARTINEZ. [address] [place] [address], [address] [place] [address], . tel:[phone] [facility], [address] [place] [address], [address] [place] [address], tel:[phone] [facility] No Information 2 DANAE MARTINEZ. [address] [place] [address], [address] [place] [address], . tel:[phone] Offic/outpt E&m Estab Minor 10 [facility], [address] [place] [address], [address] [place] [address], tel:[phone] [facility] No Information 1 DANAE MARTINEZ. [address] [place] [address], [address] [place] [address], . tel:[phone] [facility], [address] [place] [address], [address] [place] [address], tel:[phone] [facility] No Information 1 DANAE MARTINEZ. [address] [place] [address], [address] [place] [address], . tel:[phone] [facility], [address] [place] [address], [address] [place] [address], tel:[phone] [facility] No Information Oct-0 3-201 1 DANAE LEALPELONLAKEISHA. [address] [place] [address], [address] [place] [address], . tel:[phone] [facility], [address] [place] [address], [address] [place] [address], tel:[phone] [facility] No Information Sep-2 2-201 1 BERYL ABBOTT. [address] [place] [address], [address] [place] [address], . tel:[phone] Referring Provider: Nigel Carvajal, [address] [place] [address], [facility]. tel:[phone] [facility], [address] [place] [address], [address] [place] [address], tel:[phone] [facility] No Information Sep-2 1-201 1 PANDA IBRAHIM. [address] [place] [address], [address] [place] [address], . tel:[phone] Referring Provider: Nigel Carvajal, [address] [place] [address], [facility]. tel:[phone] [facility], [address] [place] [address], [address] [place] [address], tel:[phone] [facility] No Information Sep-0 7-201 1 Samreen Ochoa. [address] [place] [address], [address] [place] [address], . tel:[phone] Referring Provider: Nigel Carvajal, [address] [place] [address], [facility]. tel:[phone] Offic/outpt E&m Estab Low-mod [facility], [address] [place] [address], [address] [place] [address], tel:[phone] [facility] No Information Oct-0 8-200 9 BERYL ABBOTT. [address] [place] [address], [address] [place] [address], . tel:[phone] Offic/outpt E&m Estab Low-mod [facility], [address] [place] [address], [address] [place] [address], tel:[phone] [facility] No Information Nov-2 6-200 7 KIBILOSÁLVARO MILENA. [address] [place] [address], [address] [place] [address], . tel:[phone] [facility], [address] [place] [address], [address] [place] [address], tel:[phone] [facility] No Information 5-200 7 KIBILOSKI MILENA. [address] [place] [address], [address] [place] [address], [place]. tel:[phone] [facility], [address] [place] [address], [address] [place] [address], tel:[phone] [facility] No Information Dec-0 4-200 6 KIBILOSÁLVARO MILENA. [address] [place] [address], [address] [place] [address], . tel:[phone] [facility], [address] [place] [address], [address] [place] [address], tel:[phone] [facility] In Patient No Information 7-200 6 KIBILOSÁLVARO MILENA. [address] [place] [address], [address] [place] [address], . tel:[phone] [facility], [address] [place] [address], [address] [place] [address], tel:[phone] [facility] No Information January-2 5-200 6 KIBILOSÁLVARO MILENA. [address] [place] [address], [address] [place] [address], [place]. tel:[phone] Referring Provider: Jaquan Dowell, [address] [place], [facility]. tel:[phone] [facility], [address] [place] [address], [address] [place] [address], tel:[phone] [facility] No Information Oct-0 2-200 3 KIBILOSKI MILENA. [address] [place] [address], [address] [place] [address], [place]. tel:[phone] [facility], [address] [place] [address], [place], [place], [id number], [place] tel:[phone] [facility] No Information No Information Family History Family Member Type Diagnosis Age At Onset No Information Payers Payer name Insurance type Covered constitution party ID Saleem ya(s) [facility] [id number] Medicare Part B [id number] Social History Type Description Quantity Date Captured Comments Sex Male Smoking Status No Information Chief Complaint And Reason For Visit No Information Reason For Referral Reason For Referral No Information Plan Of Treatment Date Type Action Status Future Order: Lab Order Cervical W/o Contrast ([id number]), Appointment on: , Sent on: Sent Future Order: Lab Order L Spine 3VW w/spot ([id number]), Sent on: Sent Future Order: Lab Order Thoracic Spine 2VW ([id number]), Sent on: Sent Future Order: Lab Order C Spine 2VW ([id number] 0), Sent on: Sent Future Order: Lab Order Lumbar W /o Contrast ([id number]), Appointment on: , Sent on: Sent Future Order: Lab Order Thoracic W/o Contrast ([id number]), Appointment on: , Sent on: Sent Future Order: Lab Order Hip 2 VW Left ([id number]), Sent on: Sent History Of Present Illness Encounter Date Complaint History Of Prese nt Illness No Information Functional Status Date Functional Assessmen t No Information Instructions Date Instruction Additional Infor mation No Information Assessments Type Assessment Date No Information Patient Care Teams Name Effective Dates (start - stop) Status Members No Information
--- OUTSIDE RECORDS SUMMARY | 2025-03-17 08:01 | XMS_ITS ---
Author Organization [facility] in [place] Address [address] [place] [address] Care Team Providers Care Lpn Cma Name Role Phone Andres Zayas Primary Care Provider [phone] Hu Bunn [phone] REASON FOR VISIT Appointment Encounters Encounter Location Date Provider Diagnosis Pulmonary Medicine [place] [address] [place] [address] 03/17/2025 Hu Bunn Plan Of Treatment No Information Progress Notes * Nikunj CAUSEY EDOB:1959 (64 yo M)Acc No.[id number]:03/17/2025 Patient: Edison Nikunj WALTON :1960 A ge:64 Y S ex:Male Address:[address], [address] * true * Date: Generated for Printi ng/Faxing/eTransmitting on: 0 05/13/2025 11:32 AM EDT
--- OUTSIDE RECORDS SUMMARY | 2025-03-20 12:01 | XMS_ITS ---
Author Organization [facility] in [place] Address [address] [place] [address] Care Team Providers Care Recreational Leader Name Role Phone Andres Zayas Primary Care Provider REASON FOR VISIT stress test Encounters Encounter Location Date Provider Diagnosis [address] [address] 03/20/2025 Andres Zayas Plan Of Treatment No Information Progress Notes * Nikunj CAUSEY EDOB:1959 (64 yo M)Acc No.[id number]:03/20/2025 Patient: Edison Nikunj WALTON :1960 A ge:64 Y S ex:Male [facility] [facility] [place], [address] * true * Date: Generated for Printi ng/Fayeseniag/eTransmitting on: 0 05/13/2025 11:33 AM EDT
--- OUTSIDE RECORDS SUMMARY | 2025-03-23 09:00 | XMS_ITS ---
Author Organization [facility] in [place] Address [address] [place] [address] Care Team Providers [employer] Name Role Phone Andres Zayas Primary Care Provider ErastoHu Unavailable [phone] Allergies No Known Allergies REASON FOR VISIT COPD/O2/ROTECH Medications Medication SIG (Take, Route, Frequency, Duration) Notes Start Date End Date Status Azithromycin 250 MG 1 tablet Orally QD for 90 days Using as anti-inflammatory , NOT as antibiotic 02/17/2024 Active tiZANidine HCl 4 MG 2 tabs Orally qhs for 30 days 01/07/2025 Active Pregabalin 150 MG 1 capsule Orally three times daily Active Protonix 40 MG 1 tablet Orally Once a day for 30 days 01/07/2025 Active Topiramate 50 MG 1 tablet Orally Once a day for 30 days 02/21/2025 Active Lisinopril 5 MG 1 tablet Orally Once a day Active Meloxicam 15 MG take 1 tablet by mouth once daily Oral for 60 Days Active Metoprolol Succinate ER 50 MG 2 tablets am and 1pm Orally Active Nitroglycerin 0.4 MG 1 tablet under the tongue and allow to dissolve as needed. Take every 5 minutes up to 3 times if chest pain persists Sublingual Three times a day Active Ozempic (0.25 or 0.5 MG/DOSE) 2 MG/3ML Inject 0.25ml Subcutaneous once weekly for 28 days Active Ventolin HFA 108 (90 Base) MCG/ACT 2 puffs as needed for SOB Inhalation Q4H for 90 days Active Imitrex 100 MG 1 tablet at least 2 hours between doses as needed Orally Twice a day for 30 days 01/07/2025 Active Atorvastatin Calcium 80 MG 1 tablet Orally Once a day Active Eliquis 5 MG as directed Orally twice daily Active Farxiga 10 MG Oral for 34 Days Active Trelegy Ellipta 200-62.5-25 MCG/ACT 1 puff Inhalation QD for 90 days Rinse after use; Dispense #3 inhalers 08/17/2024 Active Theophylline ER 400 MG 1 tablet Orally QD for 90 days Active Sodium Chloride 0.9 % 3mL Inhalation BID for 90 days 07/13/2024 Active Acetaminophen 500 MG 1 capsule as needed Orally every 6 hrs Active Aspirin 81 81 MG 1 tablet Orally Once a day Active Mucinex 600 MG 1-2 tablets as needed for congestion Orally BID for 90 days Active Vitamin D3 50 MCG (2000 UT) 1 capsule Orally Once a day Active Zinc 50 MG 1 tablet Orally Once a day Active Roflumilast 500 MCG 1 tablet Orally QD for 90 days Active predniSONE 10 MG 1 tablet Orally Once a day for 90 days Take with food 02/17/2024 Active Ipratropium-Albuterol 0.5-2.5 (3) MG/3ML 3mL Inhalation QID for 90 days Active Vitamin C 1000 MG 1 tablet Orally Once a day Active Vitamin B 12 500 MCG 1 tablet Orally Onc e a day Active Social History Tobacco Use: Social History Observation Description Date Details (start date - stop date) Former Smoker NA - NA Tobacco Control (Standard) Question Answer Notes Tobacco use: Former smoker How long has it been since y ou last smoked? Greater than 10 years Additional Findings: Tobacco non-user Ex -very heavy cigarette smoker (40+/day) Vital Signs Weight 247.8 lbs 03/23/2025 Height 70 in 03/23/2025 Blood pressure systolic 118 mm Hg 03/23/20 25 Blood pressure diastolic 77 mm Hg 025 Temperature 97.0 degrees Fahrenheit 03/23/20 25 Heart Rate 71 /min 03/23/2025 Respiratory Rate 20 /min 03/23/2025 BMI 35.55 kg/m2 03/23/2025 Oximetry 91 % 03/23/2025 Encounters Encounter Location Date Provider Diagnosis Pulmonary Medicine [address] [address] 03/23/2025 Hu Samsa Centrilobular emphys larissa J43.2 ; Chronic respiratory failure with hypoxia J96.11 ; Chronic respiratory failure with hypercapnia J96.12 ; ISABEL (obstructive sleep apnea) G47.33 ; History of tobacco abuse Z87.891 ; History of asbestosis Z87.09 ; 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 Not a candidate for EBV or lung reduction surgery. He is not an endobronchial valve candidate. He refused referral to lung transplantation center. He refused or couldn't afford any other therapies. There really is not much else at this point. Will continue current treatment plan. 03/23/2025 Chronic respiratory failure with hypoxia (ICD-10 - J96.11) Xunx-gf-ekbj encounter performed with the patient to document continued need for supplemental oxygen (O2). -Current flow & directions: 3-4L/min O2 ATC, uses POC with ambulation from 3-5L/min, 5L/min O2 bleed-in -Patient voices adherence to recommended usage: Yes -Symptom control on O2: Less dyspnea -Counseled patient not begin, restart, or continue [...] to the point of requiring O2. -Recommendations: He is asking today about having POC and home fill, with a high flow home fill unit at that. Once again, I expressed that I believe POC is insufficient with activity...87% on 5L/min. Additionally, he cannot have both home fill system and POC. Insurance would not want to provide a high flow unit just so he can have elongated tubing so he doesn't have to lug around a tank outside. For now, patient said he would just stay with his POC and current home concentrator. 03/23/2025 Chronic respiratory failure with hypercapnia (ICD-10 - J96.12) ABG 10/27/2024: pH: 7.34, pCO2: 59.3, pO2: 72.9, SaO2: 94%, FiO2: 3L/min Continue BiPAP. 03/23/2025 ISABEL (obstructive sleep apnea) (ICD-10 - G47.33) Previously evaluated. Continue PAP. Ycxa-lv-rtwl encounter performed with the patient to document continued need for PAP therapy. -Current DME: [employer] -Split night 11/10/2024: AHI 61, Titration 23/08 with 5L/min O2 bleed-in -Compliance was reviewed from 12/20/2024 - 01/18/2025 -Total days used: (100%) -Total of all days >4 hours of use: (97%) -Current model, mode, & set pressure: AirCurve 10 VAuto 23/08 -Residual AHI: 0.3 -Air leak (median): 11.8L/min [...] @ bedtime and with any naps. -This sksg-uz-gshh visit comes with my authorization that the patient's DME may request to renew, reorder, and/or replace tubing, supplies, mask, and/or PAP device (if applicable). 03/23/2025 History of tobacco abuse (ICD-10 - Z87.891) 2ppd x 35 years (70 pack-years), quit 2012 2ppd x35 years, quit 2011. No further LDCT to be done as patient does not want any treatment if he has lung cancer. 03/23/2025 History of asbestosis (ICD-10 - Z87.09) Exposure to asbestos from brake pads. No evidence of asbestos on prior CT chest. 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 03/23/2025 Obesity, unspecified (ICD-10 - E66.9) Healthy calorie intake recommended. 03/23/2025 Other Screen patiented for obstructive sleep apnea. His Gos[place] was 13 and STOP-BANG was 8. He [...] to proceed with PAP therapy if indicated. Mfvc-nw-eogt was performed today regarding need for CPAP or BiPAP if he qualifies. Patient changed to [facility] cardiology and voiced he is very happy with the switch. HCO3- 39.5, Suspected chronic hypercapnic respiratory failure, which I was correct based on ABG drawn today. Plan Of Treatment Medication Medication Name Sig Start Date Stop Date Notes Azithromycin 250 MG 1 tablet Orally QD for 90 days 02/17/2024 Using as anti-inflammatory, NOT as antibiotic Ventolin HFA 108 (90 Base) MCG/ACT 2 puffs as needed for SOB Inhalation Q4H for 90 days Trelegy Ellipta 200-62.5-25 MCG/ACT 1 puff Inhalation QD for 90 days 08/17/2024 Theophylline ER 400 MG 1 tablet Orally Q D for 90 days Sodium Chloride 0.9 % 3mL Inhalation BID for 90 days 07/13/2024 Mucinex 600 MG 1-2 tablets as neede d for congestion Orally BID for 90 days Roflumilast 500 MCG 1 tablet Orally QD for 90 days predniSONE 10 MG 1 tablet Orally Once a day for 90 days 02/17/2024 Ipratropium-Albuterol 0.5-2.5 (3) MG/3ML 3mL Inhalation QID for 90 days Treatment Notes Assessment Notes Centrilobular emphysema He is not an endobronchial valve candidate. He refused referral to lung transplantation center. He refused or couldn't afford any other therapies. There really is not much else at this point. Will continue current treatment plan. Chronic respiratory failure with hypoxia Ugju-qg-vyyi encounter performed with the patient to document continued need for supplemental oxygen (O2). -Current flow & directions: 3-4L/min O2 ATC, uses POC with ambulation from 3-5L/min, 5L/min O2 bleed-in -Patient voices adherence to recommended usage: Yes -Symptom control on O2: Less dyspnea -Counseled patient not begin, restart, or continue [...] to the point of requiring O2. -Recommendations: He is asking today about having POC and home fill, with a high flow home fill unit at that. Once again, I expressed that I believe POC is insufficient with activity...87% on 5L/min. Additionally, he cannot have both home fill system and POC. Insurance would not want to provide a high flow unit just so he can have elongated tubing so he doesn't have to lug around a tank outside. For now, patient said he would just stay with his POC and current home concentrator. Chronic respiratory failure with hypercapnia ABG 10/27/2024: pH: 7.34, pCO2: 59.3, pO2: 72.9, SaO2: 94%, FiO2: 3L/min Continue BiPAP. ISABEL (obstructive sleep apnea) Previously evaluated. Continue PAP. Xhvx-rz-zxvw encounter performed with the patient to document continued need for PAP therapy. -Current DME: [employer] -Split night 11/10/2024: AHI 61, Titration 23/08 with 5L/min O2 bleed-in -Compliance was reviewed from 12/20/2024 - 01/18/2025 -Total days used: 30/30 (100%) -Total of all days >4 hours of use: 29/30 (97%) -Current model, mode, & set pressure: AirCurve 10 VAuto / -Residual AHI: 0.3 -Air leak (median): 11.8L/min [...] @ bedtime and with any naps. -This rrws-mv-ylyf visit comes with my authorization that the patient's DME may request to renew, reorder, and/or replace tubing, supplies, mask, and/or PAP device (if applicable). History of tobacco abuse 2ppd x35 years, quit 2011. No further LDCT to be done as patient does not want any treatment if he has lung cancer. History of asbestosis Exposure to asbestos from brake pads. No evidence of asbestos on prior CT chest. 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 local intermodal truck driver (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 of i nhaled steroids Patient was counseled to rinse & gargle with water after inhaled corticosteroid use. Obesity, unspecified Healthy calorie intake recommended. Other Screen patiented for obstructive sleep apnea. His Gos[place] was 13 and STOP-BANG was 8. He [...] to proceed with PAP therapy if indicated. Rlfz-er-lozw was performed today regarding need for CPAP or BiPAP if he qualifies. Patient changed to [facility] cardiology and voiced he is very happy with the switch. HCO3- 39.5, Suspected chronic hypercapnic respiratory failure, which I was correct based on ABG drawn today. Next Appt Details Follow Up: 3 Months, Reason: Procedure Notes * Category Sub-Category Detail Notes PFT Data: 04/26/2022-FEV1/F VC: 31%-FEV1: 22%-FVC: 54%-Bronchodilator response: Positive-RV: 204%-T%-DLCO: 40%-Flow-volume loop: Very severe obstruction 04/20/2018-FEV1/FVC: 71% -FEV1: 34%-FVC: 62%-Bronchodilator response: Positive-RV: 232%-T%-DLCO: 51%-Flow-volume loop: Severe obstruction Alpha-1 Antitrypsin Screening Date: 04/10/2022 Genotype: M/M Progress Notes * Nikunj CAUSEY EDOB:1959 (64 yo M)Acc No.[id number]:03/23/2025 Follow Up Patient: Edison Nikunj WALTON Provider: Kiah Bunn DO :1960 A ge:64 Y S ex:Male Date:03/23/2025 Address:[address] [place], [place] [id number] Pcp:Andres Zayas Check In:12:56 PM ESTCheck O ut:01:54 PM EST Subjective: * Chief Complaints: * C OPD/O2/ROTECH * HPI: G eneral: Patient has been doing fair. Breathing continues to be poor at times. He remains on his current therapy and denies any adverse effects. He is asking about having POC and home fill, and a high flow home fill to allow more tubing. MA Intake Comments:. Patient presents for a follow-up for COPD. Patient is currently on 5L O2 at home. DME: [employer]. Patient states his breathing is worsening since his last visit. Patient is using Trelegy and Nebulizer daily. Patient would like to discuss his oxygen equipment as he does not feel his has the adequate equipment. Patient is under the care of [facility] Cardiology. * ROS: G eneral/Constitutional: Fatigue a dmits. F ever or sweats d enies. C hange of appetite d enies. C hills d enies.?Weight Change d enies. H EENT: Dry mouth d enies. S ore throat d enies. O ral Ulcers d enies. P ost Nasal Drip D enies. C ongestion D enies. H oarseness?Denies. C ardiovascular: Tachycardia d enies. C hest pain d enies. P alpitations d enies. R espiratory: Chest tightness a dmits. P leurisy D enies. D yspnea a dmits. C ough p roductive cough. H emoptysis d enies. W heezing a dmits. G astrointestinal: Acid Reflux/GERD/Heartburn d enies. D ysphagia d enies. M usculoskeletal: Arthralgias/joint pain D enies. S kin: Easy bruising d enies. R petty d enies. ? N eurologic: Seizures d enies. T remor d enies. H ematology: Abnormal Bleeding d enies. P sychiatric: Anxiety d enies. * Active Problem List J43.2 Centrilobular emphys larissa Modified On:11/19/2023/U Status:confirmed J96.11 Chronic respiratory failure with hypoxia Modified On:11/19/2023/U Status:confirmed J96.12 Chronic respiratory failure with hypercapnia Modified On:10/27/2024/U Status:confirmed D64.9 Anemia, unspecified Modified On:10/15/2023/U Status:confirmed I48.91 Atrial fibrillation, unspecified Modified On:07/13/2024/U Status:confirmed Z86.79 History of atrial fi brillation Modified On:11/27/2022/U Status:confirmed I25.10 Coronary arterioscle rosis Modified On:11/27/2022/U Status:confirmed J84.10 Granulomatous lung d isease Modified On:11/27/2022U Status:confirmed Z87.891 History of tobacco a buse Modified On:11/19/2023 Status:confirmed K21.9 Gastroesophageal ref lux disease Modified On:11/27/2022 Status:confirmed Z87.09 History of asbestosi s Modified On:11/19/2023 Status:confirmed F12.90 Marijuana use Modified On:07/17/2023 Status:confirmed I71.20 Thoracic aneurysm wi thout mention of rupture Modified On:11/27/2022U Status:confirmed G47.33 ISABEL (obstructive sle ep apnea) Modified On:01/19/2025 Status:confirmed E66.9 Obesity, unspecified Modified On:11/19/2023 Status:confirmed Z79.52 custodial (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 of systemic steroids Modified On:11/19/2023 Status:confirmed Z79.51 custodial (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 of inhaled steroids Modified On:11/19/2023 Status:confirmed K21.9 GERD (gastroesophage al reflux disease) Modified On:01/07/2025 Status:confirmed G43.909 Migraine Modified On:02/11/2025 Status:confirmed * Medical History: * Surgical History: c oronary artery bypass graft 2016shoulder replacement-Right left hip replacement right hip replacement Amputation-Finger cataract removal Hernia Repair * Hospitalization/Major Diagno stic Procedure: [facility] 05/02/2023 * Family History: F ather: , Back Problems, diagnosed with Unspecified heart disease. M other: , breast cancer, diagnosed with Other malignant neoplasm of unspecified site, Unspecified essential hypertension, Unspecified heart disease. S ister(s): diagnosed with Unspecified essential hypertension. * Social History: T obacco Use: T obacco Control (Standard) T obacco use: F ormer smoker H ow long has it been since you last smoked??Greater than 10 years A dditional Findings: Tobacco non-user E x-very heavy cigarette smoker (40+/day) Electronic Cigarette use C urrent user N o LM: Additional Tobacco Questions N umber of Years Pt Smoked: 3 5 N umber of Packs per Day: 2 When did you stop smokin. 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 Y es M arijuana? Y es Edibles Caffeine I ntake: 1 -2 cups per day Coffee Do you drink alcohol?: Yes, Socially. Do you smoke marijuana?: Denies. * Medications: T akingAcetaminophen 500 MG Capsule 1 capsule as needed Orally every 6 hrs Aspirin 81(Aspirin) 81 MG Tablet Delayed Release 1 tablet Orally Once a day Atorvastatin Calcium 80 MG Tablet 1 tablet Orally Once a day Azithromycin 250 MG Tablet 1 tablet Orally QD , Notes to Pharmacist: Using as anti-inflammatory, NOT as antibioticEliquis(Apixaban) 5 MG Tablet as directed Orally twice daily Farxiga(Dapagliflozin Propanediol) 10 MG Tablet Oral Imitrex(SUMAtriptan Succinate) 100 MG Tablet 1 tablet at least 2 hours between doses as needed Orally Twice a day Ipratropium-Albuterol 0.5-2.5 (3) MG/3ML Solution 3mL Inhalation QID Lisinopril 5 MG Tablet 1 tablet Orally Once a day Meloxicam 15 MG Tablet take 1 tablet by mouth once daily Oral Metoprolol Succinate ER 50 MG Tablet Extended Release 24 Hour 2 tablets am and 1pm Orally Mucinex(guaiFENesin ER) 600 MG Tablet Extended Release 12 Hour 1- 2 tablets as needed for congestion Orally BID Nitroglycerin 0.4 MG Tablet Sublingual 1 tablet under the tongue and allow to dissolve as needed. Take every 5 minutes up to 3 times if chest pain persists Sublingual Three times a day Ozempic (0.25 or 0.5 MG/DOSE)(Semaglutide(0.25 or 0.5MG/DOS)) 2 MG/3ML Solution Pen-injector Inject 0.25ml Subcutaneous once weekly predniSONE 10 MG Tablet 1 tablet Orally Once a day Take with foodPregabalin 150 MG Capsule 1 capsule Orally three times daily Protonix(Pantoprazole Sodium) 40 MG Tablet Delayed Release 1 tablet Orally Once a day Roflumilast 500 MCG Tablet 1 tablet Orally QD Sodium Chloride 0.9 % Nebulization Solution 3mL Inhalation BID Theophylline ER 400 MG Tablet Extended Release 24 Hour 1 tablet Orally QD tiZANidine HCl 4 MG Tablet 2 tabs Orally qhs Topiramate 50 MG Tablet 1 tablet Orally Once a day Trelegy Ellipta(Bjpvkumrrck-Birpftsif-Ykjnzz) 200-62.5-25 MCG/ACT Aerosol Powder Breath Activated 1 puff Inhalation QD Rinse after use; Dispense #3 inhalersVentolin HFA(Albuterol Sulfate HFA) 108 (90 Base) MCG/ACT Aerosol Solution 2 puffs as needed for SOB Inhalation Q4H Vitamin B 12 500 MCG Tablet 1 tablet Orally Once a day Vitamin C 1000 MG Tablet 1 tablet Orally Once a day Vitamin D3 50 MCG (2000 UT) Capsule 1 capsule Orally Once a day Zinc 50 MG Tablet 1 tablet Orally Once a day Medication List reviewed and reconciled with the patientTaking Acetaminophen 500 MG Capsule 1 capsule as needed Orally every 6 hrs Taking Aspirin 81(Aspirin) 81 MG Tablet Delayed Release 1 tablet Orally Once a day Taking Atorvastatin Calcium 80 MG Tablet 1 tablet Orally Once a day Taking Azithromycin 250 MG Tablet 1 tablet Orally QD , Notes to Pharmacist: Using as anti-inflammatory, NOT as antibioticTaking Eliquis(Apixaban) 5 MG Tablet as directed Orally twice daily Taking Farxiga(Dapagliflozin Propanediol) 10 MG Tablet Oral Taking Imitrex(SUMAtriptan Succinate) 100 MG Tablet 1 tablet at least 2 hours between doses as needed Orally Twice a day Taking Ipratropium-Albuterol 0.5-2.5 (3) MG/3ML Solution 3mL Inhalation QID Taking Lisinopril 5 MG Tablet 1 tablet Orally Once a day Taking Meloxicam 15 MG Tablet take 1 tablet by mouth once daily Oral Taking Metoprolol Succinate ER 50 MG Tablet Extended Release 24 Hour 2 tablets am and 1pm Orally Taking Mucinex(guaiFENesin ER) 600 MG Tablet Extended Release 12 Hour 1-2 tablets as needed for congestion Orally BID Taking Nitroglycerin 0.4 MG Tablet Sublingual 1 tablet under the tongue and allow to dissolve as needed. Take every 5 minutes up to 3 times if chest pain persists Sublingual Three times a day Taking Ozempic (0.25 or 0.5 MG/DOSE)(Semaglutide(0.25 or 0.5MG/DOS)) 2 MG/3ML Solution Pen-injector Inject 0.25ml Subcutaneous once weekly Taking predniSONE 10 MG Tablet 1 tablet Orally Once a day Take with foodTaking Pregabalin 150 MG Capsule 1 capsule Orally three times daily Taking Protonix(Pantoprazole Sodium) 40 MG Tablet Delayed Release 1 tablet Orally Once a day Taking Roflumilast 500 MCG Tablet 1 tablet Orally QD Taking Sodium Chloride 0.9 % Nebulization Solution 3mL Inhalation BID Taking Theophylline ER 400 MG Tablet Extended Release 24 Hour 1 tablet Orally QD Taking tiZANidine HCl 4 MG Tablet 2 tabs Orally qhs Taking Topiramate 50 MG Tablet 1 tablet Orally Once a day Taking Trelegy Ellipta(Krwbglbdqat-Rnbiohmes-Yutlzi) 200-62.5-25 MCG/ACT Aerosol Powder Breath Activated 1 puff Inhalation QD Rinse after use; Dispense #3 inhalersTaking Ventolin HFA(Albuterol Sulfate HFA) 108 (90 Base) MCG/ACT Aerosol Solution 2 puffs as needed for SOB Inhalation Q4H Taking Vitamin B 12 500 MCG Tablet 1 tablet Orally Once a day Taking Vitamin C 1000 MG Tablet 1 tablet Orally Once a day Taking Vitamin D3 50 MCG (2000 UT) Capsule 1 capsule Orally Once a day Taking Zinc 50 MG Tablet 1 tablet Orally Once a day Medication List reviewed and reconciled with the patient * Allergies: N .K.D.A.no[Allergies Verified] Objective: * Vitals: W t:247.8lbs, Ht: 70 in, BP:sittin/77mm Hg, Temp:Forehead:97.0F, HR: 91 /min,71/min, RR:20/min, BMI:35.55Index, Oxygen sat %: Oxygen 5l:87 %,Oxygen 5l:91%, Ht-cm: 177.8 cm, Wt-k.4 kg. * Examination: E xam: GENERAL APPEARANCE: A ppears chronically ill. Beginning to develop mild bruno facies. Skin N ormal. Nose W earing nasal cannula. Mouth P ink and moist. N o candidiasis. Oropharynx/Tongue M allampati Class III. Trachea M idline. Chest I ncreased A-P Diameter. Respiratory Normal M ovements, E ffort N ormal. Auscultation V leticia diminished but clear to auscultation.? Cardiac R egular rate and rhythm. Gastrointestinal M ild central adiposity. Vascular N o edema. Musculoskeletal N ormal posture. Amputations R ight 3rd, 4th, 5th fingers. Neurological F ocal, intact. Psychiatric A lert and oriented x3. Mentation/Cognition N ormal. Assessment: * Assessment: 1. C entrilobular emphysema - J43.2 (Primary) N otes :Prior treatment: Trelegy 200 > Trelegy 100 > Breztri > Spiriva. Not a candidate for EBV or lung reduction surgery. 2 . C hronic respiratory failure with hypoxia - J96.11 3 . Chronic respiratory failure with hypercapnia - J96.12 4 . O SA (obstructive sleep apnea) - G47.33 5 . H istory of tobacco abuse - Z87.891 N otes :2ppd x 35 years (70 pack-years), quit 2012 6 . H istory of asbestosis - Z87.09 7 . L alberto term (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 of systemic steroids - Z79.52 8 . L alberto term (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 of inhaled steroids - Z79.51 9 . O besity, unspecified - E66.9 Plan: * Treatment: 2. C hronic respiratory failure with hypoxia Notes: Miuo-pc-tnuv encounter performed with the patient to document continuedneed for supplemental oxygen (O2). -Current flow & directions: 3-4L/min O2 ATC, uses POC with ambulation from 3-5L/min, 5L/min O2 bleed-in -Patient voices adherence to recommended usage: Yes -Symptom control on O2: Less dyspnea -Counseled patient not begin, restart, or continue smoking, around the O2 dueto risk of fire which could result in damage to the O2 tanks & lines, smokeinhalation and flame damage to the airway, significant truong, potential ,property damage, and potential harm & to bystanders. Additionally,counseled it is not desir to begin, restart, or continue smoking given theunderlying pulmonary disease that led to the point of requiring O2. -Recommendations: He is asking today about having POC and home fill, with a high flow home fill unit at that. Once again, I expressed that I believe POC is insufficient with activity...87% on 5L/min. Additionally, he cannot have both home fill system and POC. Insurance would not want to provide a high flow unit just so he can have elongated tubing so he doesn't have to lug around a tank outside. For now, patient said he would just stay with his POC and current home concentrator. 3. C hronic respiratory failure with hypercapnia Notes: ABG 10/27/2024: pH: 7.34, pCO2: 59.3, pO2: 72.9, SaO2: 94%, FiO2: 3L/min Continue BiPAP. 4. O SA (obstructive sleep apnea) Notes: Previously evaluated. Continue PAP. Vktq-yq-oyuo encounter performed with the patient to document continued need for PAP therapy. -Current DME: Raj -Split night 11/10/2024: AHI 61, Titration 23/08 with 5L/min O2 bleed-in -Compliance was reviewed from 12/20/2024 - 01/18/2025 -Total days used: (100%) -Total of all days >4 hours of use: (97%) -Current model, mode, & set pressure: AirCurve 10 VAuto 23/08 -Residual AHI: 0.3 -Air leak (median): 11.8L/min [...] @ bedtime and with any naps. -This fbgw-da-qfys visit comes with my authorization that the patient's DME may request to renew, reorder, and/or replace tubing, supplies, mask, and/or PAP device (if applicable). 5. H istory of tobacco abuse Notes: 2ppd x35 years, quit 2011. No further LDCT to be done as patient does not want any treatment if he has lung cancer. 6. H istory of asbestosis Notes:Exposure to asbestos from brake pads. No evidence of asbestos on priorCT chest. 7. L alberto term (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 of systemic steroids Notes: Discussed adverse effects of nursing home systemic steroids including, but not limited to: increased risk of cataracts, elevated blood sugars/worsening of underlying diabetes mellitus, impaired wound healing, gastrointestinal ulcers, osteoporosis. 8. L alberto term (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 of inhaled steroids Notes: Patient was counseled to rinse & gargle with water after inhaled corticosteroid use. 9. O besity, unspecified Notes: Healthy calorie intake recommended. 10. O thers Notes: Screen patiented for obstructive sleep apnea. His [place] was 13 and STOP-BANG was 8. He [...] to proceed with PAP therapy if indicated. Wvkc-qi-oysf was performed today regarding need for CPAP or BiPAP if he qualifies. Patient changed to [facility] cardiology and voiced he is very happy with the switch. HCO3- 39.5, Suspected chronic hypercapnic respiratory failure, which I was correct based on ABG drawn today. * Procedures: A lpha-1 Antitrypsin: Screening Date: 0 04/10/2022. Genotype: M /M. P FT: Data: 04/26/2022 -FEV1/FVC: 31% -FEV1: 22% -FVC: 54% -Bronchodilator response: Positive -RV: 204% -T% -DLCO: 40% -Flow-volume loop: Very severe obstruction -FEV1/FVC: 71% -FEV1: 34% -FVC: 62% -Bronchodilator response: Positive -RV: 232% -T% -DLCO: 51% -Flow-volume loop: Severe obstruction. * Procedure Codes: * Preventive Medicine: COVID Vaccination: H as patient had COVID Vaccination? COVID Vaccination Y es 2020 Per Patient Immunization Status: P neumovacc P t Refused. I nfluenza 1 10/14/2022. B oostrix 1 10/14/2022. Screenings/Counseling: F ALL RISK SCREENING Fall Risk Assessment: N o falls in the past year Are you afraid of falling? N o T OBACCO ACTION PLAN Patient counselled on the dangers of tobacco use and urged to quit. 0 03/23/2025 Former Education on smoking effects provided?03/23/2025 Former B CA ACTION PLAN Above Normal BMI Follow-up D ietary management education, guidance, and counseling * Follow Up: 3 Months * * Sign off status: Completed Visit Status: C HK (Check Out) true * Provider: Kiah Bunn DO Date: 0 03/23/2025 Generated for Efraín hamilton/Oscar/Jean Paulitting on: 0 05/13/2025 11:33 AM EDT History and Physical Notes * HPI (History of Present Illness) Category Sub-Category Detail Notes Category Not es General Patient present s for a follow-up for COPD. Patient is currently on 5L O2 at home. DME: [employer]. Patient states his breathing is worsening since his last visit. Patient is using Trelegy and Nebulizer daily. Patient would like to discuss his oxygen equipment as he does not feel his has the adequate equipment. Patient is under the care of [facility] Cardiology. Examination Category Sub-Category Detail Notes Category Not es Exam GENERAL APPEARANCE: Appears phlebotomy coordinator nically ill. Beginning to develop mild bruno facies Skin Normal Eyes Ears Nose Wearing nasal cannul a Mouth [place] and moist. 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
--- OUTSIDE RECORDS SUMMARY | 2025-03-29 06:03 | XMS_ITS ---
Author Organization [facility] in [place] Address [address] [place] [address] Care Team Providers Care Psychologist Developmental Name Role Phone MarquezAndres Primary Care Provider REASON FOR VISIT Lyrica question Medications Medication SIG (Take, Route, Fr equency, Duration) Notes Start Date End Date Status Pregabalin 150 MG 1 capsule Orally thr ee times daily for 90 days 03/29/2025 Active Encounters Encounter Location Date Provider Diagnosis [facility] [address] [place] [address] 03/29/2025 Andres Zayas Plan Of Treatment Medication Medication Name Sig Start Date Stop Date Notes Pregabalin 150 MG 1 capsule Orally thr ee times daily for 90 days 03/29/2025 Progress Notes * Nikunj CAUSEY EDOB:1959 (65 yo M)Acc No.[id number]:03/29/2025 Patient: Edison Nikunj WALTON :1960 A ge:65 Y S ex:Male Address:[address] [place], [address] * Refills Refill Pregabalin Capsule, 150 MG, Orally, 270, 1 capsule, three times daily, 90 days, Refills=0 * true * Date: Generated for Printi ng/Faxing/eTransmitting on: 0 05/13/2025 11:33 AM EDT
--- OUTSIDE RECORDS SUMMARY | 2025-05-13 06:30 | XMS_ITS ---
Author Organization [facility] in [place] Address [address] [place] [address] Care Team Providers Care Website Programmer Name Role Phone Andres Zayas Primary Care Provider Allergies No Known Allergies REASON FOR VISIT Presents to office alone for Right leg pain. Fell Friday night while out of state in [place], b/p low in office. Does c/o feeling light headed Medications Medication SIG (Take, Route, Frequency, Duration) Notes Start Date End Date Status Azithromycin 250 MG 1 tablet Orally QD for 90 days Using as anti-inflammatory , NOT as antibiotic 02/17/2024 Active Eliquis 5 MG as directed Orally twice daily Active Farxiga 10 MG Oral for 34 Days Active Aspirin 81 81 MG 1 tablet Orally Once a day Active Atorvastatin Calcium 80 MG 1 tablet Orally Once a day Active Vitamin C 1000 MG 1 tablet Orally Once a day Active Vitamin D3 50 MCG (2000 UT) 1 capsule Orally Once a day Active Zinc 50 MG 1 tablet Orally Once a day Active Acetaminophen 500 MG 1 capsule as needed Orally every 6 hrs Active Vitamin B 12 500 MCG 1 tablet Orally Onc e a day Active Theophylline ER 400 MG 1 tablet Orally QD for 90 days Active tiZANidine HCl 4 MG 2 tabs Orally qhs for 30 days 01/07/2025 Active Topiramate 50 MG 1 tablet Orally Once a day for 30 days 02/21/2025 Active Trelegy Ellipta 200-62.5-25 MCG/ACT 1 puff Inhalation QD for 90 days Rinse after use; Dispense #3 inhalers 08/17/2024 Active Ventolin HFA 108 (90 Base) MCG/ACT 2 puffs as needed for SOB Inhalation Q4H for 90 days Active Sodium Chloride 0.9 % 3mL Inhalation BID for 90 days 07/13/2024 Active predniSONE 10 MG 1 tablet Orally Once a day for 90 days Take with food 02/17/2024 Active Pregabalin 150 MG 1 capsule Orally three times daily for 90 days 03/29/2025 Active Protonix 40 MG 1 tablet Orally Once a day for 30 days 01/07/2025 Active Roflumilast 500 MCG 1 tablet Orally QD for 90 days Active Meloxicam 15 MG take 1 tablet by mouth once daily Oral for 60 Days Active Metoprolol Succinate ER 50 MG 2 tablets am and 1pm Orally Active Mucinex 600 MG 1-2 tablets as needed for congestion Orally BID for 90 days Active Nitroglycerin 0.4 MG 1 tablet under the tongue and allow to dissolve as needed. Take every 5 minutes up to 3 times if chest pain persists Sublingual Three times a day Active Ozempic (0.25 or 0.5 MG/DOSE) 2 MG/3ML Inject 0.25ml Subcutaneous once weekly for 28 days Active Lisinopril 5 MG 1 tablet Orally Once a day Active Ipratropium-Albuterol 0.5-2.5 (3) MG/3ML 3mL Inhalation QID for 90 days Active Imitrex 100 MG 1 tablet at least 2 hours between doses as needed Orally Twice a day for 30 days 01/07/2025 Active Social History Tobacco Use: Social History Observation Description Date Details (start date - stop date) Former Smoker NA - NA Tobacco Control (Standard) Question Answer Notes Tobacco use: Former smoker How long has it been since y ou last smoked? Greater than 10 years Additional Findings: Tobacco non-user Ex -very heavy cigarette smoker (40+/day) Problems Problem Type SNOMED Code ICD Code Onset Dates Problem Status W/U Status Risk Notes Problem Hamstring tear (S76.319A) Active confirmed Problem Hypertension ([id number]) Hypertension (I10) Active confirmed Vital Signs Weight 243.4 lbs 05/13/2025 Height 70 in 05/13/2025 Blood pressure systolic 74 mm Hg 05/13/20 25 Blood pressure diastolic 42 mm Hg 025 BMI 34.92 kg/m2 05/13/2025 Encounters Encounter Location Date Provider Diagnosis [facility] [address] [place] [address] 05/13/2025 Andres Zayas Hamstring tear S76.3 19A and Hypertension I10 Assessments Encounter Date Diagnosis (ICD Code) Assessment Notes Treatment Notes Treatment Clinical Notes Section Notes 05/13/2025 Hamstring tear (ICD-10 - S76.319A) 05/13/2025 Hypertension (ICD-10 - I10) holding lisinopril and repat bp friday Plan Of Treatment Treatment Notes Assessment Notes Hypertension holding lisinopril a nd repat bp friday Pending Test Test Name Order Date US AZUCENA DOP LEG RT 05/13/2025 Progress Notes * Nikunj CAUSEY EDOB:1959 (65 yo M)Acc No.[id number]:05/13/2025 UNLOCKED PROGRESS NOTE Progress Note Patient: Nikunj DUNBAR Provider: Dav Zayas ([facility])MD :1960 A ge:65 Y S ex:Male Date:05/13/2025 Address:[address] [place] [address] [place], [id number] Check In:10:24 AM ESTCheck O ut:11:21 AM EST Subjective: * Chief Complaints: * 1 . Presents to office alone for Right leg pain. Fell Friday night while out of state in [place]. 2. b/p low in office. Does c/o feeling light headed. * HPI: G eneral: Fell last week - Huge amount o edema and. * ROS: E ENT: hearing changes d enies. v isual changes d enies.?non-healing mouth sores d enies. s wollen glands or neck lumps d enies. h oarseness d enies. s ore throat d enies. d ifficulty swallowing d enies. n ose bleeds d enies. n diana congestion d enies. e ar ache d enies. e ar discharge?denies. r inging in ears d enies. l ight sensitivity d enies. e ye pain d enies. b lurring d enies. e ye irritation d enies. d ouble vision d enies.?vision loss d enies. G eneral/Constitutional: Sweats: D enies. F atigue d enies. S leep problems d enies. A norexia d enies. M alaise d enies. W eight loss d enies.?Fatigue or Weakness d enies. F ever or Chills d enies. C ardiovascular: Shortness of Breath w/lying flat d enies. L ightheadedness/dizziness d enies. C hest tightness/ heavy pressure d enies. S welling of legs, ankles, or feet d enies. W aking up with shortness of breath d enies. C hest pain denies. P alpitations d enies. W eight gain d enies. R espiratory: Chronic or frequent cough d enies. C oughing up blood?denies. D ifficulty breathing d enies. P roductive cough d enies. S noring?denies. S hortness of breath that awakens from sleep (PND) d enies. C hest pain d enies. S putum production d enies. W heezing d enies. M usculoskeletal: Joint pain d enies. J oint Fluid d enies. B ack pain d enies. K nee pain d enies. N paul pain d enies. J oint Stiffness d enies. M uscle cramps d enies. W eakness of muscles d enies. A rthritis d enies. M uscle aches d enies. P ain in shoulder(s) d enies. S wollen joints d enies. * Medical History: C entrilobular emphysema, Chronic respiratory failure with hypoxia, History of tobacco abuse, Granulomatous lung disease, History of asbestosis, Coronary arteriosclerosis, Thoracic aneurysm without mention of rupture, Marijuana use, Anemia, unspecified, Celiac disease, Gastroesophageal reflux disease, History of atrial fibrillation, History of melanoma, Left heart thrombus, Osteoarthritis, Thoracic aortic aneurysm, without rupture, unspecified, Atrial fibrillation, unspecified, Chronic respiratory failure with hypercapnia, GERD (gastroesophageal reflux disease), ISABEL (obstructive sleep apnea). * Surgical History: c oronary artery bypass graft 2016, shoulder replacement-Right , left hip replacement , right hip replacement , Amputation-Finger , cataract removal , Hernia Repair . * Hospitalization/Major Diagno stic Procedure: S OB-TB ER 05/02/2023. * Family History: F ather: , Back [...] Day: 2 When did you stop smokin. * Medications: T aking Acetaminophen 500 MG Capsule 1 capsule as needed Orally every 6 hrs , Taking Aspirin 81(Aspirin) 81 MG Tablet Delayed Release 1 tablet Orally Once a day , Taking Atorvastatin Calcium 80 MG Tablet 1 tablet Orally Once a day , Taking Azithromycin 250 MG Tablet 1 tablet Orally QD , Notes to Pharmacist: Using as anti- inflammatory, NOT as antibiotic, Taking Eliquis(Apixaban) 5 MG Tablet as directed Orally twice daily , Taking Farxiga(Dapagliflozin Propanediol) 10 MG Tablet Oral , Taking Imitrex(SUMAtriptan Succinate) 100 MG Tablet 1 tablet at least 2 hours between doses as needed Orally Twice a day , Taking Ipratropium-Albuterol 0.5-2.5 (3) MG/3ML Solution 3mL Inhalation QID , Taking Lisinopril 5 MG Tablet 1 tablet Orally Once a day , Taking Meloxicam 15 MG Tablet take 1 tablet by mouth once daily Oral , Taking Metoprolol Succinate ER 50 MG Tablet Extended Release 24 Hour 2 tablets am and 1pm Orally , Taking Mucinex(guaiFENesin ER) 600 MG Tablet Extended Release 12 Hour 1-2 tablets as needed for congestion Orally BID , Taking Nitroglycerin 0.4 MG Tablet Sublingual 1 tablet under the tongue and allow to dissolve as needed. Take every 5 minutes up to 3 times if chest pain persists Sublingual Three times a day , Taking Ozempic (0.25 or 0.5 MG/DOSE)(Semaglutide(0.25 or 0.5MG/DOS)) 2 MG/3ML Solution Pen-injector Inject 0.25ml Subcutaneous once weekly , Taking predniSONE 10 MG Tablet 1 tablet Orally Once a day Take with food, Taking Pregabalin 150 MG Capsule 1 capsule Orally three times daily , Taking Protonix(Pantoprazole Sodium) 40 MG Tablet Delayed Release 1 tablet Orally Once a day , Taking Roflumilast 500 MCG Tablet 1 tablet Orally QD , Taking Sodium Chloride 0.9 % Nebulization Solution 3mL Inhalation BID , Taking Theophylline ER 400 MG Tablet Extended Release 24 Hour 1 tablet Orally QD , Taking tiZANidine HCl 4 MG Tablet 2 tabs Orally qhs , Taking Topiramate 50 MG Tablet 1 tablet Orally Once a day , Taking Trelegy Ellipta(Oqqxjuhkzod-Yijfpuzsf-Jbxbrr) 200-62.5-25 MCG/ACT Aerosol Powder Breath Activated 1 puff Inhalation QD Rinse after use; Dispense #3 inhalers, Taking Ventolin HFA(Albuterol Sulfate HFA) 108 (90 Base) MCG/ACT Aerosol Solution 2 puffs as needed for SOB Inhalation Q4H , Taking Vitamin B 12 500 MCG Tablet 1 tablet Orally Once a day , Taking Vitamin C 1000 MG Tablet 1 tablet Orally Once a day , Taking Vitamin D3 50 MCG (2000 UT) Capsule 1 capsule Orally Once a day , Taking Zinc 50 MG Tablet 1 tablet Orally Once a day , Medication List reviewed and reconciled with the patient * Allergies: N .K.D.A. Objective: * Vitals: W t:243.4lbs, Ht: 70 in, BP:74/42mm Hg, BMI:34.92Index, Ht-cm: 177.8 cm, Wt-k.41 kg. * Examination: P hysical Exam: GENERAL: w ell developed, well nourished, in no acute distress. HEAD: n ormocephalic/atraumatic. EYES: p upils equal, round and reactive to light, conjunctivae and sclerae normal. EARS: n o deformity or lesion of external ear, canals and TM appear normal bilaterally, TM's intact, not inflamed with normal light reflex, hearing grossly normal to conversational speech. NOSE: n o deformity, discharge, inflammation, or lesions.? MOUTH: m ucous membranes moist, normal oropharynx and posterior pharynx without lesions or exudates, tongue normal, dentition normal. NECK: n paul supple, no masses or palpable cervical nodes, trachea midline, thyroid without nodules, masses, tenderness, or enlargement. CHEST: n o chest wall deformity, no chest wall tenderness.? LUNGS: n ormal respiratory effort and clear to auscultation, no wheezes, rales, or rhonchi, good air exchange. CARDIO: r egular rate and rhythm, normal S1 and S2, nor murmur, rub, or gallop. PULSES: n ormal capillary refill. ABDOMEN: s oft, non-distended, non-tender, no masses. MUSCULOSKELETAL: R leg with LARGE bruising starting upper mid thigh - and swelling into beto - down to ankle. EXTREMITY: n o clubbing, cyanosis, edema, or deformity with normal ROM in both upper and lower bilateral extremities. NEUROLOGIC: g rossly normal. SKIN: n o rashes, ulcerations, or suspicious lesions. LYMPH NODES: n o cervical adenopathy, nodes normal. MENTAL STATUS: a lert and oriented x3, normal mood and affect. Assessment: * Assessment: 1. H amstring tear - S76.319A (Primary) 2 . H ypertension - I10 ? Plan: * Treatment: 2. H ypertension Notes: holding lisinopril and repat bp friday * Preventive Medicine: Screenings/Counseling: B [place] ACTION PLAN Above Normal BMI Follow-up D ietary management education, guidance, and counseling See treatment section of progress note for complete details of management plan. F ALL RISK SCREENING Fall Risk Assessment: O ne fall with injury in the past year * * Electronic signature of Andres Zayas MD, [id number] on 05/13/2025 at 11:33 AM EDT Sign off status: Pending Visit Status: C HK (Check Out) * Provider: Dav Zayas ([facility])MD Date: 05/13/2025 Generated for Efraín hamilton/Oscar/Jean Paulitting on: 05/13/2025 11:33 AM EDT History and Physical Notes * HPI (History of Present Illness) Category Sub-Category Detail Notes Category Not es General Fell last week - Huge amount o edema and Examination Category Sub-Category Detail Notes Category Not es Physical Exam GENERAL: well developed, well nourished, in no acute distress HEAD: normocephalic/atraum atic EYES: pupils equal, round and reactive to light, conjunctivae and sclerae normal EARS: no deformity or lesi on of external ear, canals and TM appear normal bilaterally, TM's intact, not inflamed with normal light reflex, hearing grossly normal to conversational speech NOSE: no deformity, discha rge, inflammation, or lesions MOUTH: mucous membranes mona st, normal oropharynx and posterior pharynx without lesions or exudates, tongue normal, dentition normal NECK: neck supple, no mass es or palpable cervical nodes, trachea midline, thyroid without nodules, masses, tenderness, or enlargement CHEST: no chest wall deform ity, no chest wall tenderness LUNGS: normal respiratory e ffort and clear to auscultation, no wheezes, rales, or rhonchi, good air exchange CARDIO: regular rate and rhy thm, normal S1 and S2, nor murmur, rub, or gallop PULSES: normal capillary ref ill ABDOMEN: soft, non-distended, non-tender, no masses RECTAL: MUSCULOSKELETAL: R leg with LARGE bru ising starting upper mid thigh - and swelling into beto - down to ankle EXTREMITY: no clubbing, cyanosi s, edema, or deformity with normal ROM in both upper and lower bilateral extremities NEUROLOGIC: grossly normal SKIN: no rashes, ulceratio ns, or suspicious lesions LYMPH NODES: no cervical adenopat hy, nodes normal MENTAL STATUS: alert and oriented x 3, normal mood and affect
--- OUTSIDE RECORDS SUMMARY | 2025-05-13 11:33 | XMS_ITS | Encounter Summary ---
Author Organization [facility] Address [address] [place] [address] Care Team Providers Care Supervisor Of Officials Name Role Phone Mario Zayas MD Primary Care Provider [phone] Encounter Details Date Type Department Care Team (Late st Contact Info) Description 04/02/2025 Results Follow-Up [facility] [address] [place] [id number] Dorinda Diaz MD [address] [facility] [id number] [place] [address] Lexiscan Stress Myocardial Perfusion Imaging Social History Tobacco Use Types Packs/Day Years Used Date Smoking Tobacco: Former Cigarettes Smokeless Tobacco: Never Alcohol Use Standard Drinks/Week Comments Not Asked 0 (1 standard drink = 0.6 oz pur e alcohol) occasional Sex and Gender Information Value Date Recorded Sex Assigned at Male 04/12/2025 3:26 PM EDT Legal Sex Male 2:46 PM EST Gender Identity Male 04/12/2025 3:26 PM EDT Sexual Orientation Heterosexual or Straight 01/2025 3:26 PM EDT documented as of this encounter Plan of Treatment Upcoming Encounters Date Type Department Care Team (Late st Contact Info) Description 05/27/2025 11:00 AM EDT Office Visit [place] [address] [place] [address] Dorinda Diaz MD [address] [facility] [id number] [place] [address] documented as of this encounter Visit Diagnoses Not on filedocumented in this encounter Care Teams Supervisor Of Officials Relationship Specialty Start Date End Date Mario Zayas MD [phone] PCP - General Family Medicine 02/09/25 documented as of this encounter
--- OUTSIDE RECORDS SUMMARY | 2025-05-13 11:33 | XMS_ITS | Encounter Summary ---
Author Organization [facility] Address [id number] [place] [address] Care Team Providers Care Gynaecological Oncologist Name Role Phone Pauly Santacruz HEATING PLANT SUPERINTENDENT-[employer] WORKER Primary Care Provider [phone] Reason for Visit * Reason Comments Med Change Request Encounter Details Date Type Department Care Team (Late st Contact Info) Description 02/07/2025 Refill [facility] [address] [place] [address] Pablo Zaragoza, VIC-LAYOUT INSPECTOR [address] [place] [address] Med Change Request Social History Tobacco Use [...] artery disease involving coronary bypass graft of match-e-be-nash-she-wish band heart without angina pectoris Hx of CABG Postsurgical aortocoronary bypass status Paroxysmal atrial fibrillation ([facility]) Atrial fibrillation Aneurysm of ascending aorta without rupture History of maze procedure documented in this encounter Care Teams Gynaecological Oncologist Relationship Specialty Start Date End Date Pauly Santacruz APRN-[employer] F[employer] WORKER [address] [place] [address] PCP - General Family Medicine 06/24/24 documented as of this encounter
--- OUTSIDE RECORDS SUMMARY | 2025-05-13 11:33 | XMS_ITS | Encounter Summary ---
Author Organization [facility] Address [id number] [address] [place] [address] Care Team Providers Care Manager Flight Name Role Phone Pauly Santacruz BEAM DYER-WEIGHT INSPECTOR Primary Care Provider [phone]- [phone] Reason for Referral * Cardiology (Routine) - Closed Specialty Diagnoses / Procedures Referred By Contac t Referred To Contact Diagnoses Paroxysmal atrial fibrillation ([facility]) Procedures Wireless Telemetry (In Office) Syed Cantu MD [address] [place] [address] Phone: tel: fax: Referral ID Status Reason Start Date Expiration Date Visits Re quested Visits Authorized [id number] Closed 05/03/2024 05/03/2025 1 1 Encounter Details Date Type Department Care Team (Late st Contact Info) Description 05/03/2024 Orders Only [facility] [address] [facility] [address] [place] [address] Kenisha Manning RN Paroxysmal atrial fibrillation ([facility]) (Primary Dx) Social History Tobacco Use [...] beats per minute. 5. No symptoms reported. us Syed Cantu MD CV CARDIAC SERVICES ORDERABLE S Final Result documented in this encounter Visit Diagnoses Diagnosis Paroxysmal atrial fibrillation (CMS-HCC)- Primary Atrial fibrillation Paroxysmal atrial fibrillation (CMS-HCC) Atrial fibrillation documented in this encounter Care Teams Manager Flight Relationship Specialty Start Date End Date Pauly Santacruz APRN-FNP [address] [place] [address] PCP - General Family Medicine 06/24/24 documented as of this encounter
--- OUTSIDE RECORDS SUMMARY | 2025-05-13 11:33 | XMS_ITS | Clinical Summary ---
Author Organization [facility] Address [address] [place] [address] Phone Care Team Providers Care Grade Teacher Name Role Phone Unavailable Primary Care Provider [...] Screening 1960 FIT-DNA (Cologuard) 1960 FIT 1960 Lipid Panel 1960 Sigmoidoscopy 1960 Skin Cancer Screening 1960 Yearly Adult Physical 1960 MMR Vaccines (1 of 1 - Stand kory series) 1961 Hepatitis C Screening 1978 Pneumococcal Vaccine (1 of 2 - PCV) 1979 DTaP/Tdap/Td Vaccines (1 - Tdap) 1982 PSA Prostate Cancer Screening 2010 Zoster Vaccines (1 of 2) 2010 RSV High Risk: (Elderly (60+ ) or Population) (1 - Risk 60-74 years 1-dose series) 2020 COVID-19 Vaccine ( - 2023-2 5 season) 2025 Influenza Vaccine (#1) 2025 HIB Vaccines Aged [...]
--- OUTSIDE RECORDS SUMMARY | 2025-05-13 11:33 | XMS_ITS | Patient Health Record ---
Author Organization [facility] Address [address] [place] [address] Support Name Relationship Address Phone Nikunj Causey Guarantor Unknown Reason For Referral No Information Problems Problem Type SNOMED Code ICD Code Onset Dates Problem Status W/U Status Risk Notes Problem Encntr screen for infections w sexl mode of transmiss (Z113) 03/13/2017 Active confirmed Plan Of Treatment No Information
--- OUTSIDE RECORDS SUMMARY | 2025-05-13 11:33 | XMS_ITS | Clinical Summary ---
Author Organization [employer] [facility] Address [id number] [address] [place] [address] Care Team Providers Care Supply Person Name Role Phone Pauly Santacruz POWER TRANSFORMER INSPECTOR-FLEXIBLE NANNY Primary Care Provider [phone] Allergies Active Allergy Reactions Criticality Noted Date [...] artery disease involving coronary bypass graft of platinum heart without angina pectoris,Paroxys mal atrial fibrillation [...] artery disease involving coronary bypass graft of platinum heart without angina pectoris,Hx of CABG,Paroxysmal atrial [...] artery disease involving coronary bypass graft of platinum heart without angina pectoris,Hx of CABG,Paroxysmal atrial [...] artery disease involving coronary bypass graft of platinum heart without angina pectoris,Paroxys mal atrial fibrillation [...] artery disease involving coronary bypass graft of platinum heart without angina pectoris,Hx of CABG,Paroxysmal atrial [...] disease invo lving coronary bypass graft of platinum heart without angina pectoris 05/20/2022 Paroxysmal atrial fibrillation 05/20/2022 Thoracic aortic aneurysm without rupture 022 Hx of CABG 05/20/2022 History of maze procedure 05/20/2022 Family History Medical History Relation Name Comments [...] Zoster (Shingles) Vaccine (1 of 2) 2010 Abdominal Aortic Aneurysm (AAA) Screen 2025 Fall Risk Screening 2025 Influenza Vaccine 05/09/2025 08/13/2023, 05/23/2021 Adult BMI Screening 06/24/2025 06/24/2024 Tobacco Screening 06/24/2025 06/24/2024 DTaP,Tdap and Td Vaccines (2 - Td or Tdap) 08/13/2033 08/13/2023 Medical Devices Not on file Insurance [facility] MEDIC[facility] Care Teams Supply Person Relationship Specialty Start Date End Date Pauly Santacruz APRN-FNP [address] [facility] [place] [id number] PCP - General Family Medicine 06/24/24
--- OUTSIDE RECORDS SUMMARY | 2025-05-13 11:33 | XMS_ITS | Encounter Summary ---
Author Organization [id number] [address] [place] [address] Care Team Providers Care Director Talent Management Name Role Phone Pauly Santacruz LICENSED MASSAGE PRACTITIONER-AIRPORT MAINTENANCE LABORER Primary Care Provider [phone]- [phone] Encounter Details Date Type Department Care Team (Late st Contact Info) Description 06/25/2024 Orders Only [facility] [address] [facility] [address] [place] [address] External, Scanning Provider Social History [...] ECG ORDERABLES Final Result Performing Organization Address City/State/[facility] Co de Phone Number MANUALLY TRANSCRIBED RESULTS * ECG 12 lead (06/25/2024 8:13 AM EDT) us Scanning Provider External ECG ORDERABLES Final Result Performing Organization Address City/State/[facility] Co de Phone Number MANUALLY TRANSCRIBED RESULTS documented in this encounter Visit Diagnoses Not on filedocumented in this encounter Care Teams Director Talent Management Relationship Specialty Start Date End Date Pauly Santacruz APRN-FNP [address] [place] [address] PCP - General Family Medicine 06/24/24 documented as of this encounter
--- OUTSIDE RECORDS SUMMARY | 2025-05-13 11:33 | XMS_ITS | Clinical Summary ---
Author Organization [facility] Address [address] [place] [address] Care Team Providers Care Salesperson Yard Goods Name Role Phone Mario Zayas MD Primary Care Provider [phone] Allergies No known active allergies Medications azithromycin (Zithromax) 250 mg tablet Take 250 mg by mouth in the morning. Active aspirin 81 mg chewable tablet Chew 81 mg in the morning. Active Trelegy Ellipta 200-62.5-25 mcg blister with device Inhale 1 puff in the morning. 03/15/20 22 Active albuterol (Ventolin HFA) 90 mcg/actuation inhaler Inhale 1 puff every 4 (four) hours if needed for wheezing or shortness of breath. Active ipratropium-albute roL (Duo-Neb) 0.5-2.5 mg/3 mL [...] vitamin D3, 50 mcg (2,000 unit) capsule Take 1 capsule by mouth in the morning. Active zinc gluconate 50 mg tablet 1 [...] once daily as directed. 90 tablet 3 04/08/20 25 026 Active sodium chloride 0.9 % nebulizer solution Take 3 mL by nebulization if needed. 03/23/20 25 Active pantoprazole (ProtoNix) 40 mg EC tablet Take 40 mg by mouth in the morning. 02/08/20 25 Active topiramate 50 mg tablet Take 1 tablet by mouth in the morning. 02/22/20 25 Active SUMAtriptan (Imitrex) 100 mg tablet Take 100 mg by mouth 1 (one) time if needed for migraine. 09/25/19 24 025 Discontin ued(Stop Taking at Discharge ) Active Problems Problem Noted Date Diagnosed Date Nausea 04/14/2025 Abnormal cardiovascular stress test 04/05/2025 Arthritis 08/16/2024 Celiac disease 08/16/2024 Coronary artery disease invo lving [place] coronary artery of [place] heart without angina pectoris 08/16/2024 Erectile dysfunction 08/16/2024 Pain in wrist 08/16/2024 Peripheral polyneuropathy 08/16/2024 Cardiomyopathy, ischemic 08/16/2024 Chronic systolic heart failure 08/16/2024 Chronic anticoagulation 08/16/2024 Pure hypercholesterolemia 08/16/2024 Class 2 severe obesity due t o excess calories with serious comorbidity and body mass index (BMI) of 35.0 to 35.9 in adult 08/16/2024 Mixed hyperlipidemia 06/24/2024 Essential hypertension 06/24/2024 DDD (degenerative disc disease), lumbar 01/20/20 Overview (08/16/2024): The patient is a 62 [...] aneurysm (A AA) without rupture 01/02/2025 01/02/2025 Left ventricular dysfunction 06/24/2024 04/18/2025 Encounters Date Type Department Care Team Description 04/21/2025 12:30 PM EDT - 04/21/2025 1:30 PM EDT Surgery [facility] [address] [place] [address] Adam Valle MD Coronary angiography 04/21/2025 10:42 AM EDT - 04/21/2025 4:08 PM EDT Hospital Encounter [facility] [address] [place] [address] Adam Valle MD Abnormal cardiovascular stress test Discharge Disposition: Home or Self Care () 04/21/2025 Results Follow-Up [facility] [address] [place] [address] Dorinda Diaz MD Cardiac catheterization 04/21/2025 Travel 04/18/2025 Travel 04/14/2025 10:00 AM EDT Office Visit [address] [address] Dorinda Diaz MD Abnormal cardiovascular stress test (Primary Dx); Chronic systolic heart failure (CMS/HCC); Cardiomyopathy, ischemic; Paroxysmal A-fib (CMS/HCC); History of maze procedure; Aneurysm of ascending aorta without rupture; Essential hypertension; Pure hypercholesterolemia; Class 2 severe obesity due to excess calories with serious comorbidity and body mass index (BMI) of 35.0 to 35.9 in adult (CMS/HCC) 04/12/2025 Telephone [facility] [address] [facility] [place] [address] Tari Nevarez MA 04/08/2025 Refill [facility] [address] [place] [address] Danni Vázquez MA Benign hypertensive heart disease 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 04/05/2025 Orders Only [facility] [address] [place] [address] Danni Vázquez MA Abnormal cardiovascular stress test (Primary Dx) 04/02/2025 Results Follow-Up [facility] [address] [place] [address] Dorinda Diaz MD Lexiscan Stress Myocardial Perfusion Imaging 03/21/2025 Orders Only [facility] [address] [place] [address] ProviderRocky MD 03/08/2025 Orders Only [facility] [address] [place] [address] Melita Ignacio MA Hyperlipidemia, unspecified hyperlipidemia type (Primary Dx) 02/10/2025 Orders Only [facility] [address] [facility] [place] [address] Melita Ignacio MA Benign hypertensive heart disease 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 from Last 3 Months Family History Medical History Relation Name Comments Coronary artery disease Father Coronary artery disease Mother Relation Name Status Comments Father Mother Sister Alive Social History Tobacco Use Types Packs/Day Years Used Date Smoking Tobacco: Former Cigarettes Smokeless Tobacco: Never Tobacco Cessation:Counseling Given: Not Answered Alcohol Use Standard Drinks/Week Comments Yes 0 (1 standard drink = 0.6 oz pur e alcohol) occasional Sex and Gender Information Value Date Recorded Sex Assigned at Male 04/12/2025 3:26 PM EDT Legal Sex Male 2:46 PM EST Gender Identity Male 04/12/2025 3:26 PM EDT Sexual Orientation Heterosexual or Straight 01/2025 3:26 PM EDT Last Filed Vital Signs Vital Sign Reading Time Taken Comments Blood Pressure 110/73 04/21/2025 3:45 PM EDT Pulse 70 04/21/2025 3:45 PM EDT Temperature - - Respiratory Rate 20 04/21/2025 3:45 PM EDT Oxygen Saturation 100% 04/21/2025 3:45 PM EDT Inhaled Oxygen Concentration - - Weight 109 kg (241 lb) 04/14/2025 10:10 AM EDT Height 175.3 cm (5' 9 ) 04/14/2025 10:10 AM EDT Body Mass Index 35.59 04/14/2025 10:10 AM EDT Plan of Treatment Upcoming Encounters Date Type Department Care Team (Late st Contact Info) Description 05/27/2025 11:00 AM EDT Office Visit [facility] [address] [place] [address] Dorinda Diaz MD [address] MS:Ankit[address] [place] [address] Health Maintenance Due Date Last Done Comments CT Colonography 1960 Colonoscopy 1960 Colorectal Cancer Screening 1960 FIT-DNA 1960 FIT 1960 FOBT 1960 Medicare Annual Wellness (AWV) 1960 Medicare Initial Physical (IPPE) 1960 Sigmoidoscopy 1960 Depression Screening 1972 Pneumococcal Vaccine: 50+ Years (1 of 2 - PCV) 1979 Zoster Vaccines (1 of 2) 2010 Fall Risk Screening 2025 COVID-19 Vaccine (3 - 2024-2 6 season) 2025 10/25/2020, 09/20/2020 Influenza Vaccine (#1) 2025 , [...] Procedure Name Priority Date/Time Associated Diagnosis Comments INSTANT WAVE FREE RATIO (IFR) Routine 04/21/2025 1:55 PM EDT Abnormal cardiovascular stress test CORONARY BYPASS GRAFT STUDY Routine 04/21/2025 1:55 PM EDT Abnormal cardiovascular stress test CORONARY ANGIOGRAPHY Routine 04/21/2025 1:55 PM EDT Abnormal cardiovascular stress test ACTIVATED CLOTTING TIME Routine 04/21/2025 1:45 PM EDT ECG 12-LEAD Routine 04/21/2025 12:25 PM EDT LEXISCAN STRESS MYOCARDIAL PERFUSION IMAGING Routine 03/17/2025 8:42 AM EDT from Last 3 Months Results * CORONARY ANGIOGRAPHY, CORONARY BYPASS GRAFT STUDY, INSTANT WAVE FREE RATIO (IFR) (04/21/2025 1:55 PM EDT) Anatomical Region Laterality Modality Other Narrative 04/21/2025 2:11 PM EDT PROCEDURE PHYSICIAN: Adam Valle MD Clinical Presentation: 65 y.o. Male presents with a history of CAD s/p WALTERS graft to LAD and a positive stress test Final Impression: 1) The WALTERS graft to LAD is occluded, however, the proximal LAD stenosis is normal by iFR 2) Significant coronary ectasia is present in the circumflex coronary artery 3) Normal left ventricular end diastolic pressure at 10 mmHg Recommendation: 1) Eliquis for coronary ectasia 2) Discontinue Imitrex as this may contribute or cause coronary ischemia Procedures Performed: coronary and ROLDAN angiography, left heart catheterization, iFR LAD, conscious sedation, ultrasound guidance for vascular access Procedure Description: The patient was brought to the cardiac catheterization lab in a fasting state. Informed written consent was obtained. Time-out was performed. he was prepped and draped in usual sterile fashion and was given Versed and fentanyl for sedation. 1% lidocaine was infiltrated over the left radial artery. A 6-Maori sheath was placed in left radial artery. Radial anti-vasospasm cocktail of verapamil 2.5 mg was administered through the sheath. All catheter exchanges were made over the Johnson guidewire. Left heart catheterization, ROLDNA and coronary angiography was performed with an IM, JL5 and a JR4 . At this time, it was apparent that the LAD had intermediate stenosis. Heparin anticoagulation was used for the PCI procedure. ACT was maintained at >250 seconds. A 6 Maori XB4 was engaged to the Lmain. A BMW guidewire was placed in the distal circumflex and an Omniwire in the LAD after normalization. After pressure determinations, all equipment, catheters and wires were removed. The sheath was removed and a pressure band was applied to obtain hemostasis. Specimens Removed: None Complications: None Hemodynamic Data: LV: 94/10 mmHg Aorta: 94/63/72 mmHg Coronary Angiography: Left main: Normal LAD: The proximal vessel is diffusely atherosclerotic and there appears to be a 40-50% stenosis. However, the iFR was normal at 1.0. LCX: This vessel is ectatic throughout its' course. It is dominant providing the sole posterior descending branch to the inferior wall. No stenoses seen. RCA: This vessel is non-dominant and free of stenosis. Study Details Abnormal cardiovascular stress test [R94.39] Dorinda Diaz MD CV CARDIAC CATH PROCEDURES Final Result * (ABNORMAL) Activated clotting time (04/21/2025 1:45 PM EDT) [facility] Activated Clotting Time 309(H) 82 - 152 s 04/21/2025 1:49 PM EDT [facility] Blood Venous blood specimen / Unknown 04/21/2025 1:45 PM EDT 04/21/2025 1:49 PM EDT Adam Valle MD LAB POINT OF CARE TEST DOCKED DEVICE UNSOLICITED RESULTS Final Result [facility] ([facility]) [address] [place] [address] * Electrocardiogram, 12-lead (04/21/2025 12:25 PM EDT) Ventricular Rate 72 BPM GE MUSE Atrial Rate 72 BPM GE MUSE NH Interval 114 ms GE MUSE QRS DURATION 90 ms GE MUSE QT Interval 376 ms GE MUSE QTC CALCULATION(BAZE TT) 411 ms GE MUSE P [place] 37 degrees GE MUSE R-[place] 37 degrees GE MUSE T Wave [place] 119 degrees GE MUSE 04/21/2025 12:0 3 PM EDT 04/21/2025 1:28 PM EDT Impressions GE MUSE - 04/21/2025 1:28 PM EDT Normal sinus rhythm Nonspecific T wave abnormality Abnormal ECG No previous ECGs available Confirmed by Joseph Soriano ([id number]) on 04/21/2025 1:28:29 PM Narrative Procedure Note Joseph Soriano MD - 04/21/2025 IMPRESSION: Normal sinus rhythm Nonspecific T wave abnormality Abnormal ECG No previous ECGs available Confirmed by Joseph Soriano ([id number]) on 04/21/2025 1:28:29 PM Dorinda Diaz MD ECG ORDERABLES Final Result GE MUSE * Lexiscan Stress Myocardial Perfusion Imaging (03/17/2025 8:42 AM EDT) Anatomical Region Laterality Modality Other Historical Provider CV STRESS PROCEDURES Shama l Result from Last 3 Months Insurance [facility] MEDICARE ADVANTAGE Care Teams Salesperson Yard Goods Relationship Specialty Start Date End Date Mario Zayas MD [address] [facility] [place] [address] PCP - General Family Medicine 02/09/25
--- OUTSIDE RECORDS SUMMARY | 2025-05-13 11:34 | XMS_ITS | Patient Health Record ---
Author Organization [facility] vices [address] [facility] [place] [id number] Care Team Providers Care Residential Plumber Name Role Phone Pauly Santacruz Primary Care Provider Charis Casas Unavailable [phone] Allergies No Known Allergies Results Component Value Reference Range Notes LIPID PANEL WITH REFLEX TO D IRECT [...] high risk >7.1 >5.6 CHOL/HDL 3.9 2.0-4.5 HARRIETT/SEBASTIAN AB ID PANEL Reviewed date:09/18/2024 12:27:51 PM Interpretation: Performing Lab: Notes/Report: DNA DS ANTIBODY 9 <10 IU/mL Interpretation of dsDNA Antibody results: < or = 4: Negative 5 - 9: Indeterminate > or =10: Positive FLORES (SM) ANTIBODY 0.4 <1.0 AI CHROMATIN AB <0.2 <1.0 AI SJOGREN'S SS-A ANTIBODY <0.2 <1.0 AI SJOGREN'S SS-B ANTIBODY <0.2 <1.0 AI MARKETING CONTENT SPECIALIST IGG <0.2 <1.0 AI SCLERODERMA AB <0.2 <1.0 AI FAUSTINA-1 ANTIBODY <0.2 <1.0 AI CENTROMERE B ANTIBODY <0.2 <1.0 AI RIBOSOMAL P PROTEIN AB 0.4 <1.0 AI CBC W/AUTO DIFF Reviewed date:09/18/2024 12:27:51 PM [...] UNLESS OTHERWISE INDICATED, ALL TESTING PERFORMED AT: [employer] [address] [place] [address] LIBRARY SALES CONSULTANT: SISSY PEARSON M.D. CLIA NUMBER [id number] CAP ACCREDITATION AUID [id number] AMYLASE Reviewed date:09/18/2024 12:27:51 PM Interpretation: Performing [...] (Chromatin, Ribosomal P, SS-A, SS-B, Sm, SmRNP, MARKETING CONTENT SPECIALIST, Scl-70, Faustina-1, and Centromere B) in human serum. HARRIETT TITER Reviewed date:09/18/2024 12:27:51 PM Interpretation: Performing Lab: Notes/Report: HARRIETT PATTERN (REPORTED TITER) <1:80 <1:80 TITER Anti-Nuclear Antibodies by IFA negative for homogeneous, speckled, nucleolar and centromere patterns. COMPREHENSIVE METABOLIC PANE L (AMA) Reviewed date:09/18/2024 [...] 5-41 U/L T. BILIRUBIN 0.5 <1.3 mg/dL Reason For Referral No Information Medications Medication SIG (Take, Route, Frequency, Duration) Notes Start Date End Date Status Omeprazole 40 MG 1 capsule 30 minutes before morning meal Orally Once a day; Duration: 90 days Active Metoprolol Succinate ER 100 [...] to dissolve as needed Orally Once a day; Duration: 30 days 09/15/2024 Active predniSONE 10 MG [...] MG 1 tablet Orally Once a day PT NEEDS APPT; Duration: 30 days Active Theophylline ER 400 MG 1 tablet Orally Once a day Active Vitamin D 50 MCG (2000 UT) 1 tablet Orally Once a day Active Iron 65 MG 1 tablet Orally Once a day Not-Taking Roflumilast 500 MCG 1 tablet Orally Once a day Active Ventolin HFA 90 MCG/ACT 2 puff as needed Inhalation every 4 hrs Active Vitamin B12 1000 MCG 1 tablet Orally Once a day Not-Taking Nitroglycerin 0.4 MG as directed Sublingual Active Pregabalin 150 MG 1 capsule Oral three times daily; Duration: 30 days Active Trelegy Ellipta 100-62.5-25 MCG/INH 1 puff Inhalation Once a day Active Lisinopril 5 MG 1 tablet Orally Once a day; Duration: 90 Days Active SUMAtriptan Succinate 100 MG 1 tablet at least 2 hours between doses as needed Orally Daily; Duration: 5 days 09/25/2023 Not-Taking DuoNeb 0.5-2.5 (3) MG/3ML 3 ml as needed Inhalation every 6 hrs Not-Taking Immunizations Vaccine Route Administration Date Status Comme nts *Ayflgugug-Cspcukfoe-Gaote te IM Intramuscular 08/13/2023 Administered *Tdap (Adacel)-Private [...] 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 No patient entered data Are you a refugee? No patient en tered data What country are you from? [place] pa tient entered data Do you feel physically and emotionally safe where you currently live? Yes patient entered data In the past year, have you b een afraid of your partner or ex-partner? No patient entered data PRAPARE Score: 3 Problems Problem Type SNOMED Code ICD Code Onset Dates Problem Status W/U Status Risk Notes Problem Celiac disease (732753217) Celiac disease (K90.0) Active confirmed Dx for cigar head perforator referral only. Problem Nausea (451125705) Nausea (R11.0) Active confirmed Problem Atherosclerotic heart disease of [place] coronary artery without angina pectoris (734612547502899) Coronary artery disease with history of coronary revascularization (I25.10) Active confirmed Problem Erectile dysfunction (disorder) (539576497) Erectile dysfunction, unspecified erectile dysfunction type (N52.9) Active confirmed Dx for lab work only. 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) Peripheral polyneuropathy (G62.9) Active confirmed Problem Pain in wrist (08856594) Wrist arthralgia (M25.539) Active confirmed Vital Signs Heart Rate 78 /min 09/15/2024 Agustín Laws 09/15/2024 11:13:58 AM EST > Temperature 97.4 degrees Fahrenheit 09/15/2024 Randy Hooks 09/15/2024 11:13:58 AM EST > Respiratory Rate 18 /min 09/15/2024 Randy Laws 09/15/2024 11:13:58 AM EST > Blood pressure diastolic 82 mm Hg 09/15/2024 Rodrigo Diazando 09/15/2024 11:13:58 AM EST > Oximetry 96 % 09/15/2024 Agustín Laws 09/15/2024 11:13:58 AM EST > Weight-kg 111.58 kg 09/15/2024 Agustín Laws 09/15/2024 11:13:58 AM EST > Height 68 in 09/15/2024 Agustín Laws 09/15/2024 11:13:58 AM EST > Blood pressure systolic 121 mm Hg 09/15/2024 Randy Hooks 09/15/2024 11:13:58 AM EST > Weight 246 lbs 09/15/2024 Agustín Laws 09/15/2024 11:13:58 AM EST > BMI 37.4 kg/m2 09/15/2024 Agustín Laws 09/15/2024 11:13:58 AM EST > Encounters Encounter Location Date Provider Diagnosis Main [address], [place] [id number] 09/15/2024 [facility] [place] Nausea R11.0 ; Rayo k stools R19.5 ; Screening for cardiovascular condition Z13.6 ; Obesity, Class II, BMI 35-39.9 E66.812 and BMI 37.0-37.9, adult Z68.37 [address] [id number] 06/21/2024 Pauly Noam [address] [place] [id number] 09/18/2024 Charis Yessenia [address] [facility] [place] [id number] 05/05/2025 [facility] [place] Arthritis M19.90 Assessments Encounter Date Diagnosis (ICD Code) Assessment Notes Treatment Notes Treatment Clinical Notes Section Notes 09/15/2024 Nausea (ICD-10 - R11.0) Pt encouraged [...] will consider GI referral pending lab results. 05/05/2025 Arthritis (ICD-10 - M19.90) 09/15/2024 Screening for cardiovascular condition (ICD-10 - Z13.6) 09/15/2024 Obesity, Class II, BMI 35-39.9 (ICD-10 - E66.812) 09/15/2024 BMI 37.0-37.9, adult (ICD-10 - Z68.37) Plan Of Treatment No Information Insurance Providers Payer Name Payer Address Payer Phone Subscriber Number Group Number Insured Name Patient Relationship to Insured Coverage Start Date Coverage End Date [employer] [address] [address] [place] [address] [phone] [id number] Nikunj Causey Self - patient is the insured 0 Medical (General) History Medical History History ICD [...] - CABG, ablation 2015 right hip replaced 2017 right shoulder 2017 lasic surgery tubes in right ear
--- OUTSIDE RECORDS SUMMARY | 2025-05-13 11:34 | XMS_ITS | Patient Health Record ---
Author Organization [facility] in [place] Address [address] [place] [address] Care Team Providers Care J2Ee Programmer Name Role Phone Andres Zayas Primary Care Provider Hu Bunn Emeli [phone] Allergies No Known Allergies Results Component Value Reference Range Notes CBC W/AUTO DIFF Reviewed date:08/16/2024 03:36:52 PM Interpretation: Performing Lab: Notes/Report: FREE T3 Reviewed date:01/08/2025 05:36:32 PM Interpretation: Performing Lab: Notes/Report: [facility] , Free T3 2.75 2.18-3.98 pg/mL Performing Lab: see note - [facility] LB GLYCOHEMOGLOBIN A1C Reviewed date:01/08/2025 05:36:32 PM Interpretation: Performing Lab: Notes/Report: [facility] , Glycohemoglobin A1C 5.5 4.5-6.2 % ADA THERAPEUTIC TARGET < 7.0 ACTION SUGGESTED > 7.0 ADA RECOMMENDED LIMIT 4.0 - 6.0 Estimated Average Glucose 111 Performing Lab: see note ML - [facility] LB INSULIN Reviewed date:01/08/2025 05:36:32 PM Interpretation: Performing Lab: Notes/Report: [facility] , Insulin 29.0 2.6-24.9 uIU/mL Performed at: - [facility] [address] [id number] [employer] Operator: Candido Villegas PhD, Phone: [phone] Performing Lab: see note LC - [facility] LB LIPID PROFILE Reviewed date:01/08/2025 05:36:32 PM Interpretation: Performing Lab: Notes/Report: [facility] , Triglycerides 111 <=150 mg/dL Cholesterol 182 <=200 mg/dL HDL Cholesterol 58 40-60 mg/dL > or =60 mg/dl - LOW CARDIOVASCULAR RISK <40 mg/dl - HIGH CARDIOVASCULAR RISK LDL Cholesterol Calculated 101.8 >190 mg/dl VERY HIGH <100 mg/dl OPTIMAL 130-159 mg/dl BORDERLINE HIGH 100-129 mg/dl NEAR OR ABOVE OPTIMAL 160-189 mg/dl HIGH VLDL CHOLESTEROL 22.2 Chol HDL Ratio 3.1 7.1 - 11.0 MODERATE RISK 3.3 - 4.4 LOW RISK >11.0 HIGH RISK 4.4 - 7.1 AVERAGE RISK Performing Lab: see note ML - [facility] PROF 14(COMP METB) Reviewed date:01/08/2025 05:36:32 PM Interpretation: Performing Lab: Notes/Report: [facility] , Sodium 139 136-145 mmol/L Potassium [...] 1.2 Performing Lab: see note ML - [facility] LB PSA SCREENING Reviewed date:01/08/2025 05:36:32 PM Interpretation: Performing Lab: Notes/Report: [facility] , Prostate Specific Antigen Scrn 2.20 <=4.00 ng/mL Performing Lab: see note ML - [facility] LB T4 Reviewed date:01/08/2025 05:36:32 PM Interpretation: Performing Lab: Notes/Report: [facility] , T4 Thyroxine 6.60 4.50-12.10 ug/dL Performing Lab: see note ML - [facility] LB TSH Reviewed date:01/08/2025 05:36:32 PM Interpretation: Performing Lab: Notes/Report: [facility] , Thyroid Stimulating Hormone 0.630 0.358-3.740 uIU/mL Performing Lab: see note ML - [facility] LB URIC ACID SERUM Reviewed date:01/08/2025 05:36:32 PM Interpretation: Performing Lab: Notes/Report: [facility] , Uric Acid 3.4 3.5-7.2 mg/dL Performing Lab: see note ML - [facility] LB Troponin I High Sensitivity Reviewed date:01/08/2025 05:36:32 PM Interpretation: Performing Lab: Notes/Report: [facility] , Troponin I High Sensitivity 14.6 4.0-76.1 pg/mL UNIVERSAL DEFINITION OF MYOCARDIAL INFARCTION. THE UPPER HAS BEEN CONFIRMED THE DECISION THRESHOLD FOR GA CUT-OFF POINTS HAVE BEEN ESTABLISHED BASED ON THE FOURTH PERCENTILE OF cTnI DISTRIBUTION IN A REFERENCE POPULATION, USED IN ISOLATION BUT SHOULD BE INTERPRETED IN CONJUNCTION 99TH PERCENTILE = 76.2 PG/ML NOTE: HIGH-SENSITIVITY TROPONIN ASSAY IS NOT INTENDED TO BE DIAGNOSIS. REFERENCE LIMIT (URL) OF TROPONIN, DEFINED THE 99TH WITH OTHER DIAGNOSTIC AND CLINICAL INFORMATION. Performing Lab: see note ML - [facility] LB PROF 14(COMP METB) Reviewed date:01/19/2025 07:18:24 PM Interpretation: Performing Lab: Notes/Report: [facility] , Sodium 139 136-145 mmol/L Potassium [...] 1.2 Performing Lab: see note ML - [facility] LB CA echo doppler complete Reviewed date:02/03/2025 09:03:54 PM Interpretation: Performing Lab: Notes/Report: Source Facility: [place] [address] Cardiology Report Signed Patient: ELISE TABOR MR#: [id number] : 1960 Acct:[id number] Age/Sex: 64 / M ADM Date: 02/03/25 Loc: CARD Attending Dr: Benny Diaz M.D. Ordering Physician: Benny Diaz M.D. Date of Service: 02/03/25 Procedure(s): CA echo doppler complete Accession Number(s): [id number] cc: Donna Zayas M.D.; Benny Diaz M.D. Patient Name: ELISE TABOR MR#: [id number] : 1960 Exam Date: 02/03/2025 Ordering Doctor: [...] CARD Signed By: 02/03/252055 DD/ 54 TD/TT: Gun Number: [place] [address] Cardiology Report Signed Patient: KISHA TABOR MR#: [id number] : 1960 Acct:[id number] Age/Sex: 64 / M ADM Date: 02/03/25 Loc: CARD Attending Dr: Benny Diaz M.D. Ordering Physician: Benny Diaz M.D. Date of Service: 02/03/25 Procedure(s): CA ech o doppler complete Accession Number(s): [id number] cc: Donna Zayas M.D. ; Benny Diaz M.D. Patient Name: ELISE TABOR MR#: [id number] : 1960 Exam Date: 02/03/2025 Ordering Doctor: [...] CARD Signed By: 02/03/252055 DD/ 54 TD/TT: Gun Number: head/brain wo con Reviewed date:02/21/2025 01:09:15 PM Interpretation: Performing Lab: Notes/Report: Source Facility: [facility] [place] [address] [place] [address] Magnetic Resonance Report Signed Patient: ELISE TABOR MR#: [id number] : 1960 Acct:[id number] Age/Sex: 64 / M ADM Date: 02/21/25 Loc: MRI Attending Dr: Donna Zayas M.D. Ordering Physician: Donna Zayas M.D. Date of Service: 02/21/25 Procedure(s): MR head/brain wo con Accession Number(s): [id number] cc: Donna Zayas M.D. [address] [address] Patient Name: ELISE TABOR MRN: [id number] date: 1960 Sex: M Assigned Patient Location: MRI Current Patient Location: MRI Accession/Order Number: [id number] Exam Date: 02/21/2025 10:55 Report Date: 02/21/2025 [...] Salazar M.D. 02/21/2025 11:03 AM Dictation Location: [place] [address] Electronically authenticated by: [id number] Y Date: 02/21/2025 11:03 Dictated By: Uyen Salazar M.D. Signed By: 02/21/25 110 DD/ 110 TD/TT: Gun Number: The [address] [address] Magnetic Resonance Report Signed Patient: KISHA TABOR MR#: [id number] : 1960 Acct:[id number] Age/Sex: 64 / M ADM Date: 02/21/25 Loc: MRI Attending Dr: Theron Zayas M.D. Ordering Physician: Donna Zayas M.D. Date of Service: 02/21/25 Procedure(s): MR head/brain wo con Accession Number(s): [id number] cc: Donna Zayas M.D. [place] [id number] Patient Name: ELISE TABOR MRN: [facility]:[id number] date: 1960 Sex: M Assigned Patient Location: MRI Current Patient Location: MRI Accession/Order Numb er: [id number] Exam Date: 02/21/2025 10:55 Report Date: 02/21/2025 [...] Salazar M.D. 02/21/2025 11:03 AM Dictation Location: [place] [address] Electronically authenticated by: [id number] Y Date: 02/21/2025 11:03 Dictated By: Uyen Salazar M.D. Signed By: 02/21/25 1105 DD/ 1103 TD/TT: Gun Number: LIPID PROFILE Reviewed date:03/17/2025 06:46:32 PM Interpretation: Performing Lab: Notes/Report: [facility] , Triglycerides 112 <=150 mg/dL Cholesterol 124 <=200 mg/dL HDL Cholesterol 46 40-60 mg/dL <40 mg/dl - HIGH CARDIOVASCULAR RISK > or =60 mg/dl - LOW CARDIOVASCULAR RISK LDL Cholesterol Calculated 55.6 >190 mg/dl VERY HIGH 130-159 mg/dl BORDERLINE HIGH 160-189 mg/dl HIGH 100-129 mg/dl NEAR OR ABOVE OPTIMAL <100 mg/dl OPTIMAL VLDL CHOLESTEROL 22.4 Chol HDL Ratio 2.7 4.4 - 7.1 AVERAGE RISK 7.1 - 11.0 MODERATE RISK 3.3 - 4.4 LOW RISK >11.0 HIGH RISK Performing Lab: see note ML - [facility] LB SGPT Reviewed date:03/17/2025 06:46:32 PM Interpretation: Performing Lab: Notes/Report: [facility] , Alanine Aminotransferase 33 16-63 U/L Performing Lab: see note ML - [facility] LB NM jose luis perf SPECT rest str Reviewed date:03/20/2025 04:01:59 PM Interpretation: Performing Lab: Notes/Report: Source Facility: [place] [address] Nuclear Medicine Report Signed Patient: ELISE TABOR MR#: [id number] : 1960 Acct:[id number] Age/Sex: 64 / M ADM Date: 03/17/25 Loc: NM Attending Dr: Benny Diaz M.D. Ordering Physician: Benny Diaz M.D. Date of Service: 03/17/25 Procedure(s): NM jose luis perf SPECT rest str Accession Number(s): [id number] cc: Donna Zayas M.D.; Benny Diaz M.D. Patient Name: ELISE TABOR MR#: [id number] : 1960 Exam Date: 03/17/2025 Ordering Doctor: DR. BENNY DIAZ M.D. RADIOLOGY REPORT PROCEDURE: NM JOSE LUIS PERF SPECT REST STR COMPARISON: None. INDICATIONS: DYSPNEA, CORONARY ARTERY DISEASE TECHNIQUE: Exam Description: Stress/Rest two day protocol gated SPECT Rest Imagin.7 mCi Tc-99m Cardiolite IV on 03/17/2025 Stress Imaging 24.5 mCi Tc-99m Cardiolite IV on 03/18/2025 Exercise Protocol: 0.4 mg Lexiscan given IV Heart Rate (bpm): Rest: 76 Max: 101 PMHR: 64 Blood Pressure: Rest: 134/82 Max: 138/82 Symptoms: Rest and peak stress ECG findings were pending and the exercise portion of the study was pending per attending physician [facility] . For more details please see separate cardiac stress test report. FINDINGS: QUALITY OF STUDY: Fair PERFUSION DEFECT: LOCATION: Mid and apical inferior SIZE: Medium SEVERITY: Moderate TYPE: Reversible WALL MOTION: Normal LV SIZE: EDV:150 mL. TID / TCD: 1.5 LVEF: Calculated EF 54%. SUMMARY: Abnormal myocardial perfusion imaging study CONCLUSION: Abnormal myocardial perfusion stress test showing evidence of mid and apical inferior ischemia Transient ischemic dilatation, TID 1.5 which may indicate severe three-vessel coronary artery disease Normal left ventricle systolic function, ejection fraction 54% Dilated left ventricle EKG portion of stress test is reported separately Dictated by: Benny Diaz MD on 03/18/2025 at 19:18 Approved by: Benny Diaz MD on 03/18/2025 at 19:22 Dictated By: Benny Diaz M.D. Signed By: 03/18/251922 DD/ 21 TD/TT: Gun Number: [place] [address] Nuclear Medicine Report Signed Patient: KISHA TABOR MR#: [id number] : 1960 Acct:[id number] Age/Sex: 64 / M ADM Date: 03/17/25 Loc: PATI Attending Dr: Benny Diaz M.D. Ordering Physician: Benny Diaz M.D. Date of Service: 03/17/25 Procedure(s): NM jose luis perf SPECT rest str Accession Number(s): [id number] cc: Donna Zayas M.D. ; Benny Diaz M.D. Patient Name: ELISE TABOR MR#: [id number] : 1960 Exam Date: 03/17/2025 Ordering Doctor: DR. BENNY DIAZ M.D. RADIOLOGY REPORT PROCEDURE: NM JOSE LUIS PE RF SPECT REST STR COMPARISON: None. INDICATIONS: DYSPNEA , CORONARY ARTERY DISEASE TECHNIQUE: Exam Description: Stress/Rest two day protocol gated SPECT Rest Imagin.7 mC i Tc-99m Cardiolite IV on 03/17/2025 Stress Imaging 24.5 mCi Tc-99m Cardiolite IV on 03/18/2025 Exercise Protocol: 0 .4 mg Lexiscan given IV Heart Rate (bpm): Re st: 76 Max: 101 PMHR: 64 Blood Pressure: Rest : 134/82 Max: 138/82 Symptoms: Rest and peak stress ECG findings were pending and the exercise portion of the study was pending pe r attending physician [facility] . For more details please see separate cardiac str ess test report. FINDINGS: QUALITY OF STUDY: Fair PERFUSION DEFECT: LOCATION: Mid and ap ical inferior SIZE: Medium SEVERITY: Moderate TYPE: Reversible WALL MOTION: Normal LV SIZE: EDV:150 mL. TID / TCD: 1.5 LVEF: Calculated EF 54%. SUMMARY: Abnormal myocardial perfusion imaging study CONCLUSION: Abnormal myocardial perfusion stress test showing evidence of mid and apical inferior ischemia Transient ischemic dilatation, TID 1.5 which may indicate severe three-vessel coronary artery disease Normal left ventricl e systolic function, ejection fraction 54% Dilated left ventricle EKG portion of stres s test is reported separately Dictated by: Benny Diaz MD on 03/18/2025 at 19:18 Approved by: Benny Diaz MD on 03/18/2025 at 19:22 Dictated By: Benny Diaz M.D. Signed By: 03/18/251922 DD/ 21 TD/TT: Gun Number: PROF CHESTER Gregg (CONRADO MET) Reviewed date:04/19/2025 08:09:45 PM Interpretation: Performing Lab: Notes/Report: [facility] , Sodium 137 136-145 mmol/L Potassium 5.1 3.5-5.1 mmol/L Chloride 105 98-107 mmol/L Carbon Dioxide 32.6 21.0-32.0 mmol/L Anion Gap 4.5 Glucose 132 74-106 mg/dL Blood Urea Nitrogen 25.0 7.0-18.0 mg/dL Creatinine 0.90 0.70-1.30 mg/dL Estimated GFR ( Denisse >60 >=60 mL/min/1.73m 2 Estimated GFR (Non- Tri >60 >=60 mL/min/1.73m 2 BUN Creatinine Ratio 27.8 Calcium 10.9 8.5-10.1 mg/dL Performing Lab: see note ML - [facility] LB SGOT Reviewed date:03/17/2025 06:46:32 PM Interpretation: Performing Lab: Notes/Report: [facility] , Aspartate Amino Transferase 19 15-37 U/L Performing Lab: see note - [facility] Calcium, Ionized, Serum Reviewed date:01/23/2025 10:13:17 PM Interpretation: Performing Lab: Notes/Report: [facility] , Calcium, Ionized, Serum 5.3 4.5-5.6 mg/dL Performed at: [facility] [employer] Operator: Candido Villegas PhD, Phone: [phone] [address] [place], [place] [id number] Performing Lab: see note [facility] LB LIPID PROFILE Reviewed date:01/19/2025 07:18:24 PM Interpretation: Performing Lab: Notes/Report: [facility] , Triglycerides 86 <=150 mg/dL Cholesterol 162 <=200 mg/dL HDL Cholesterol 62 40-60 mg/dL > or =60 mg/dl - LOW CARDIOVASCULAR RISK <40 mg/dl - HIGH CARDIOVASCULAR RISK LDL Cholesterol Calculated 83.0 160-189 mg/dl HIGH 100-129 mg/dl NEAR OR ABOVE OPTIMAL >190 mg/dl VERY HIGH <100 mg/dl OPTIMAL 130-159 mg/dl BORDERLINE HIGH VLDL CHOLESTEROL 17.2 Chol HDL Ratio 2.6 4.4 - 7.1 AVERAGE RISK 7.1 - 11.0 MODERATE RISK 3.3 - 4.4 LOW RISK >11.0 HIGH RISK Performing Lab: see note - [facility] LB CBC AUTO DIFF Reviewed date:01/08/2025 05:36:32 PM Interpretation: Performing Lab: Notes/Report: [facility] , White Blood Count 12.7 4.0-11.0 [...] 3/uL Performing Lab: see note ML - [facility] LB BLOOD GASES BTY Reviewed date:10/27/2024 03:45:50 PM Interpretation: Performing Lab: Notes/Report: [facility] , pH ABG 7.341 7.350-7.450 ABG PCO2 59.3 35.0-45.0 mmHg RESULTS GEE D TO SOCO MELLO RT AT 1533 PO2 ABG 72.9 80.0-100.0 mmHg HCO3 ABG 32.0 22.0-26.0 mmol/L Base Excess ABG 6.3 -2.0-2.0 mmol/L Oxygen Saturation ABG 94.0 Martinez Test POSITIVE POSITIVE Liters per Minute 3 Puncture Site RB Performing Lab: see note ML - [facility] LB CBC AUTO DIFF Reviewed date:08/17/2024 08:59:34 AM Interpretation: Performing Lab: Notes/Report: [facility] , White Blood Count 11.4 4.0-11.0 [...] 10 3/uL Performing Lab: see note - [facility] LB XR Chest PA and Lateral (Rou iain CXR) * Reviewed date:10/26/2024 03:20:38 PM Interpretation: Performing Lab: Notes/Report: BNP Reviewed date:01/08/2025 05:36:32 PM Interpretation: Performing Lab: Notes/Report: [facility] , NT Pro B Type Natriuretic Pept 68.0 <=900.0 pg/mL Performing Lab: see note - [facility] LB CBC AUTO DIFF Reviewed date:04/19/2025 08:09:45 PM Interpretation: Performing Lab: Notes/Report: [facility] , White Blood Count 9.6 4.0-11.0 10 3/uL Red Blood Count 4.41 4.70-6.10 10 6/uL Hemoglobin 14.4 14.0-18.0 g/dL Hematocrit 43.3 42.0-54.0 % Mean Corpuscular Volume 98.2 80.0-94.0 fL Mean Corpuscular Hemoglobin 32.7 25.9-34.0 pg Mean Corpuscular HGB Conc 33.3 29.9-35.2 g/dL Red Cell Distribution Width 13.5 11.0-15.0 % Platelet Count 154 150-450 10 3/uL Mean Platelet Volume 9.5 9.5-13.5 fL Neutrophils Percent Auto 86.3 43.0-75.0 % Lymphocytes Percent Auto 5.7 20.5-60.0 % Monocytes Percent Auto 6.7 1.7-12.0 % Eosinophils Percent Auto 0.4 0.9-7.0 % Basophils Percent Auto 0.3 0.2-2.0 % Immature Granulocytes Pct Auto 0.6 0.0-0.5 % Neutrophils Absolute Auto 8.3 1.4-6.5 10 3/uL Lymphocytes Absolute Auto 0.6 1.2-3.8 10 3/uL Monocytes Absolute Auto 0.7 0.3-0.8 10 3/uL Eosinophils Absolute Auto 0.0 0.0-0.7 10 3/uL Basophils Absolute Auto 0.0 0.0-0.1 10 3/uL Immature Granulocytes Abs Auto 0.06 0.00-0.03 10 3/uL Performing Lab: see note ML - [facility] CA echo w/ con Reviewed date:03/20/2025 04:01:59 PM Interpretation: Performing Lab: Notes/Report: Source Facility: [facility] [place] [address] [place] [address] Cardiology Report Signed Patient: ELISE TABOR MR#: [id number] : 1960 Acct:[id number] Age/Sex: 64 / M ADM Date: 03/17/25 Loc: NM Attending Dr: Benny Diaz M.D. Ordering Physician: Benny Diaz M.D. Date of Service: 03/17/25 Procedure(s): CA echo w/ con Accession Number(s): [id number] cc: Donna Zayas M.D.; Benny Diaz M.D. Patient Name: ELISE TABOR MR#: [id number] : 1960 Exam Date: 03/17/2025 Ordering Doctor: DR. BENNY DIAZ M.D. ECHOCARDIOGRAM REPORT PROCEDURE: CA ECHO W/ CON INDICATIONS: Ejection fraction, CABGx5, COPD, emphysema COMPARISON: None. DESCRIPTION: COMPLETE ECHOCARDIOGRAM Real-time transthoracic echocardiography with 2D, M-mode, spectral and color flow Doppler performed. QUALITY: Lumason contrast was administered due to suboptimal imaging for left ventricular opacification to improve delineation of endocardial boarders. LEFT VENTRICLE: Normal chamber size. Mildly thickened septal wall. Normal left ventricle systolic function without wall motion abnormalities calculated left ventricular ejection fraction is 61% LV EF: Normal left ventricular ejection fraction, (>55%). DIASTOLIC: Normal diastolic function ATRIAL SEPTUM: Visually appears intact. LEFT ATRIUM: Normal chamber size. RIGHT ATRIUM: Mild dilatation. RIGHT VENTRICLE: Normal chamber size. Normal right ventricular systolic function. TRICUSPID VALVE: Normal mobility and thickness. No stenosis with trivial regurgitation. Doppler studies reveal mildly (35-45) elevated right sided pressures.RVSP 37 mmHg MITRAL VALVE: Normal mobility and thickness. No evidence of mitral valve stenosis. Mild mitral annular calcification. No mitral regurgitation. AORTIC VALVE: Normal trileaflet appearance. No visible sclerosis. Normal leaflet mobility. No evidence of aortic valve stenosis. Mild aortic regurgitation. AORTIC ROOT: Normal diameter and appearance. PULMONIC VALVE: Not well visualized. No stenosis. No regurgitation. PERICARDIUM: No evidence of pericardial effusion. IVC: Not well visualized. PLEURA: CONCLUSION: Technically difficult study, Lumason was administered for better delineation of the endocardium. Normal left ventricle systolic function without wall motion abnormalities, ejection fraction 61% Normal left ventricle diastolic function Normal right ventricle size and systolic function Mildly increased right atrial pressure, RVSP 37 mmHg Mild aortic regurgitation Mild mitral annulus calcification Adult Echocardiography Procedure Report Left Ventricle LVEDD (3.7 - 5.6 cm): 4.29 cm LVESD (2.2 - 4.0 cm): 3.04 cm LVIVS thickness (0.6 - 1.2 cm): 1.26 cm LVPW thickness (0.5 - 1.0 cm): 1.11 cm e': 0.11 m/s E - e': 4.18 LVOT Max Gradient: 2.76 mm[Hg] LVOT Area (cm2): 0.83 m/s Peak Velocity (LVOT): 0.83 m/s Mean Velocity (LVOT): LVOT Diameter 2.23 cm Left Ventricular Ejection Fraction: 61.15 % Left Atrium LA Volume Index (2D A2C): Left Atrium Systolic Dimension: 3.47 cm Mitral Valve MV E to A Ratio: 0.78 MV Max Gradient: MV Mean Gradient: Mitral Valve A-Wave Peak Velocity: 0.58 m/s Mitral Valve E-Wave Peak Velocity: 0.45 m/s Cardiovascular Orifice Area: Right Ventricle RV Internal Diastolic Dimension: Aorta AO Root Diam: 3.28 cm Ascending Ao Diam: Aortic Valve AoV Area (Peak Roger): 3.62 cm2, 3.62 cm2 AoV Area (VTI): Deceleration [place]: Pressure Half-Time: Peak Velocity(Antegrade Flow): 0.90 m/s Peak Gradient(Antegrade Flow): 3.21 mm[Hg] Mean Velocity(Antegrade Flow): Mean Gradient(Antegrade Flow): Velocity Time Integral: Tricuspid Valve Peak Velocity (Regurgitant Flow): 2.69 m/s Peak Velocity: Pulmonic Valve Mean Gradient: Mean Velocity: Peak Velocity: 1.05 m/s Peak Gradient: 4.38 mm[Hg] Right Atrium Right Atrium Systolic Pressure: Dictated by: Benny Diaz MD on 03/18/2025 at 18:35 Approved by: Benny Diaz MD on 03/18/2025 at 18:45 Dictated By: Benny Diaz M.D. Signed By: 03/18/251845 DD/ 44 TD/TT: Gun Number: [place] [address] Cardiology Report Signed Patient: KISHA TABOR MR#: [id number] : 1960 Acct:[id number] Age/Sex: 64 / M ADM Date: 03/17/25 Loc: NM Attending Dr: Benny Diaz M.D. Ordering Physician: Benny Diaz M.D. Date of Service: 03/17/25 Procedure(s): CA ech o w/ con Accession Number(s): [id number] cc: Donna Zayas M.D. ; Benny Diaz M.D. Patient Name: ELISE TABOR MR#: [id number] : 1960 Exam Date: 03/17/2025 Ordering Doctor: DR. BENNY DIAZ M.D. ECHOCARDIOGRAM REPORT PROCEDURE: CA ECHO W / CON INDICATIONS: Ejectio n fraction, CABGx5, COPD, emphysema COMPARISON: None. DESCRIPTION: COMPLET E ECHOCARDIOGRAM Real-time transthoracic echocardiography wit h 2D, M-mode, spectral and color flow Doppler performed. QUALITY: Lumason contrast was administered due to suboptimal imaging for left ventricular opacification to improve delineation of endocardial boarders. LEFT VENTRICLE: Norm al chamber size. Mildly thickened septal wall. Normal left ventricl e systolic function without wall motion abnormalities calculated left ventricular ejection fraction is 61% LV EF: Normal left ventricular ejection fraction, (>55%). DIASTOLIC: Normal diastolic function ATRIAL SEPTUM: Visua lly appears intact. LEFT ATRIUM: Normal chamber size. RIGHT ATRIUM: Mild dilatation. RIGHT VENTRICLE: Nor mal chamber size. Normal right ventricular systolic function. TRICUSPID VALVE: Nor mal mobility and thickness. No stenosis with trivial regurgitation. Doppl er studies reveal mildly (35-45) elevated right sided pressures.RVSP 37 mmHg MITRAL VALVE: Normal mobility and thickness. No evidence of mitral valve stenosis. Mild jermaine l annular calcification. No mitral regurgitation. AORTIC VALVE: Normal trileaflet appearance. No visible sclerosis. Normal leaflet mobility. No evidence of aortic valve stenosis. Mild aortic regurgitation. AORTIC ROOT: Normal diameter and appearance. PULMONIC VALVE: Not well visualized. No stenosis. No regurgitation. PERICARDIUM: No evid ence of pericardial effusion. IVC: Not well visualized. PLEURA: CONCLUSION: Technically difficul t study, Lumason was administered for better delineation of the endocardium. Normal left ventricl e systolic function without wall motion abnormalities, ejection fraction 61% Normal left ventricl e diastolic function Normal right ventric le size and systolic function Mildly increased rig ht atrial pressure, RVSP 37 mmHg Mild aortic regurgitation Mild mitral annulus calcification Adult Echocardiograp hy Procedure Report Left Ventricle LVEDD (3.7 - 5.6 cm) : 4.29 cm LVESD (2.2 - 4.0 cm) : 3.04 cm LVIVS thickness (0.6 - 1.2 cm): 1.26 cm LVPW thickness (0.5 - 1.0 cm): 1.11 cm e': 0.11 m/s E - e': 4.18 LVOT Max Gradient: 2 .76 mm[Hg] LVOT Area (cm2): 0.8 3 m/s Peak Velocity (LVOT) : 0.83 m/s Mean Velocity (LVOT): LVOT Diameter 2.23 cm Left Ventricular Ejection Fraction: 61.15 % Left Atrium LA Volume Index (2D A2C): Left Atrium Systolic Dimension: 3.47 cm Mitral Valve MV E to A Ratio: 0.78 MV Max Gradient: MV Mean Gradient: Mitral Valve A-Wave Peak Velocity: 0.58 m/s Mitral Valve E-Wave Peak Velocity: 0.45 m/s Cardiovascular Orifi ce Area: Right Ventricle RV Internal Diastoli c Dimension: Aorta AO Root Diam: 3.28 cm Ascending Ao Diam: Aortic Valve AoV Area (Peak Roger): 3.62 cm2, 3.62 cm2 AoV Area (VTI): Deceleration [place]: Pressure Half-Time: Peak Velocity(Antegr jacki Flow): 0.90 m/s Peak Gradient(Antegr jacki Flow): 3.21 mm[Hg] Mean Velocity(Antegr jacki Flow): Mean Gradient(Antegr jacki Flow): Velocity Time Integral: Tricuspid Valve Peak Velocity (Regurgitant Flow): 2.69 m/s Peak Velocity: Pulmonic Valve Mean Gradient: Mean Velocity: Peak Velocity: 1.05 m/s Peak Gradient: 4.38 mm[Hg] Right Atrium Right Atrium Systoli c Pressure: Dictated by: Benny Diaz MD on 03/18/2025 at 18:35 Approved by: Benny Diaz MD on 03/18/2025 at 18:45 Dictated By: Benny Diaz M.D. Signed By: 03/18/251845 DD/ 44 TD/TT: Gun Number: Reason For Referral Reason Patient is establish ed with [facility] and requested a referral elsewhere Diagnosis 1 Atrial fibrillation, unspecified (I48.91) Diagnosis 2 Coronary arterioscle rosis (I25.10) Referral Organization [facility] Referring Provider First Name Hu Referring Provider Last Name Oni Referring Provider Speciality Pulmonolog y Referred Provider Abraham Card Referred Provider Specialty Cardiology General Notes Nomi Foss 07/14 09:31:19 AM >Referral given to Melita/Danni at [facility] Cardiology. Patient will be contacted by the office and scheduled.Prudence Riley 07/21/2024 11:04:11 AM >I called and spoke with Danni at [facility] to find out if the patient has been scheduled yet? Per Danni the patient is not scheduled as of today, but she will speak with Melita to find out what she is waiting on., Nomi Foss 07/29/2024 01:03:06 PM >Per Melita at [facility] Cardiology the patient is scheduled for 08/26/2024 at 1140., Nomi Foss 07/29/2024 01:08:04 PM >Correction with date of appt. :08/16/2024 at 1140. Patient is aware of the appt. date and time per Melita.Prudence Riley 08/16/2024 04:28:42 PM >Consult Letter received via fax. Scanned to . Referral Priority Routine Referral Appointment Date 08/16/2024 Medications Medication SIG (Take, Route, Frequency, Duration) Notes Start Date End Date Status Ipratropium-Albuterol 0.5-2.5 (3) MG/3ML 3mL Inhalation QID for 90 days Active Sodium Chloride 0.9 % 3mL Inhalation BID for 90 days 07/13/2024 Active Theophylline ER 400 MG 1 tablet Orally QD for 90 days Active tiZANidine HCl 4 MG 2 tabs Orally qhs for 30 days 01/07/2025 Active Azithromycin 250 MG 1 tablet Orally QD for 90 days Using as anti-inflammatory , NOT as antibiotic 02/17/2024 Active Vitamin C 1000 MG 1 tablet Orally Once a day Active Eliquis 5 MG as directed Orally twice daily Active Vitamin D3 50 MCG (1999) 1 capsule Orally Once a day Active Farxiga 10 MG Oral for 34 Days Active Zinc 50 MG 1 tablet Orally Once a day Active Imitrex 100 MG 1 tablet at least 2 hours between doses as needed Orally Twice a day for 30 days 01/07/2025 Active Topiramate 50 MG 1 tablet Orally Once a day for 30 days 02/21/2025 Active Acetaminophen 500 MG 1 capsule as needed Orally every 6 hrs Active Trelegy Ellipta 200-62.5-25 MCG/ACT 1 puff Inhalation QD for 90 days Rinse after use; Dispense #3 inhalers 08/17/2024 Active Aspirin 81 81 MG 1 tablet Orally Once a day Active Ventolin HFA 108 (90 Base) MCG/ACT 2 puffs as needed for SOB Inhalation Q4H for 90 days Active Atorvastatin Calcium 80 MG 1 tablet Orally Once a day Active Vitamin B 12 500 MCG 1 tablet Orally Onc e a day Active Lisinopril 5 MG 1 tablet Orally Once a day Active Meloxicam 15 MG take 1 tablet by mouth once daily Oral for 60 Days Active predniSONE 10 MG 1 tablet Orally Once a day for 90 days Take with food 02/17/2024 Active Pregabalin 150 MG 1 capsule Orally three times daily for 90 days 03/29/2025 Active Protonix 40 MG 1 tablet Orally Once a day for 30 days 01/07/2025 Active Roflumilast 500 MCG 1 tablet Orally QD for 90 days Active Metoprolol Succinate ER 50 MG 2 [...] Subcutaneous once weekly for 28 days Active Immunizations Vaccine Route Administration Date Status Comme nts Flu, Flucelvax (6654-5676) ( 63490) 6 mos and older, single-dose syringe Unknown [...] Status W/U Status Risk Notes Problem Anemia (683044541) Anemia, unspecified (D64.9) Active confirmed Problem [id number] Obesity, unspecified (E66.9) Active confirmed Problem Centrilobular emphysema (61059349) Centrilobular emphysema (J43.2) Active confirmed Prior treatment: Trelegy 200 > Trelegy 100 > Breztri > Spiriva. Not a candidate for EBV or lung reduction surgery. 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 of systemic steroids (Z79.52) Active confirmed Problem Hypertension (68158572) Hypertension (I10) Active confirmed Problem Gastroesophageal reflux disease (706543835) GERD (gastroesophageal reflux disease) (K21.9) Active confirmed Problem Obstructive sleep apnea syndrome (60574674) ISABEL (obstructive sleep apnea) (G47.33) Active confirmed Problem Migraine (91183984) Migraine (G43.909) Active confirmed Problem Atrial fibrillation (80169114) Atrial fibrillation, unspecified (I48.91) Active confirmed Problem History of atrial fibrillation (117529488) History of atrial fibrillation (Z86.79) Active confirmed Problem Coronary arteriosclerosis (65163914) Coronary arteriosclerosis (I25.10) Active confirmed Problem Post-inflammatory pulmonary fibrosis (375550250) Granulomatous lung disease (J84.10) Active confirmed Problem Ex-tobacco user (finding) (519402639) History of tobacco abuse (Z87.891) Active confirmed 2ppd x 35 years (70 pack-years ), quit 2013 Problem Gastroesophageal reflux disease (802005216) Gastroesophageal reflux disease (K21.9) Active confirmed Problem History of respiratory disease (782215524) History of asbestosis (Z87.09) Active confirmed Problem Hamstring tear (S76.319A) Active confirmed Problem Nondependent cannabis abuse (744296116) Marijuana use (F12.90) Active confirmed Problem Thoracic aortic aneurysm without rupture (disorder) (79978673) Thoracic aneurysm without mention of rupture (I71.20) Active confirmed Vital Signs Heart Rate 71 /min 03/23/2025 Temperature 97.0 degrees Fahrenheit 03/23/2025 Respiratory Rate 20 /min 03/23/2025 Oximetry 91 % 03/23/2025 Blood pressure diastolic 42 mm Hg 05/13/2025 Height 70 in 05/13/2025 Blood pressure systolic 74 mm Hg 05/13/2025 Weight 243.4 lbs 05/13/2025 BMI 34.92 kg/m2 05/13/2025 Procedures Procedure Date Ordered Date Performed Result Body Sit e Split Night Sleep Study 10/27/2024 11/10/2024 N/A ABG 10/27/2024 10/27/2024 N/A Encounters Encounter Location Date Provider Diagnosis [facility] [address] [place] [address] 03/29/2025 Andres Zayas [facility] [address] [place] [address] 01/24/2025 Andres Zayas Well adult Z00.00 [facility] [address] [place] [address] 02/03/2025 Andres Zayas [facility] [address] [place] [address] 02/17/2025 Andres Zayas Chronic respiratory failure with hypercapnia J96.12 [facility] [address] [place] [address] 02/21/2025 Andres Zayas [facility] [address] [place] [address] 03/17/2025 Hu [facility] [address] [place] [address] 03/20/2025 Andres Zayas [facility] [address] [place] [address] 08/17/2024 Hu Bunn Centrilobular emphys larissa J43.2 [facility] [address] [facility] [place] [address] 09/13/2024 Hu Bunn Centrilobular emphys larissa J43.2 [facility] [address] [facility] [place] [address] 10/05/2024 Hu [facility] [address] [place] [address] 10/21/2024 Hu Erasto Acute cough R05.1 [facility] [address] [place] [address] 01/08/2025 Andres Zayas Abnormal blood chemi stry level R79.9 [facility] [address] [place] [address] 01/23/2025 Andres Zayas [facility] [address] [place] [address] 05/17/2024 Hu [facility] [address] [place] [address] 01/07/2025 Andres Zayas Well adult Z00.00 ; Coronary arteriosclerosis I25.10 ; Atrial fibrillation, unspecified I48.91 ; History of atrial fibrillation Z86.79 ; Granulomatous lung disease J84.10 ; Anemia, unspecified D64.9 ; Hypersomnia, unspecified G47.10 and GERD (gastroesophageal reflux disease) K21.9 [address] [place] [address] 02/11/2025 Andres Hernicolas Centrilobular emphys larissa J43.2 ; Obesity, unspecified E66.9 ; Coronary arteriosclerosis I25.10 ; History of atrial fibrillation Z86.79 ; Chronic respiratory failure with hypercapnia J96.12 and Migraine G43.909 [facility] [address] [place] [address] 05/13/2025 Andres Zayas Hamstring tear S76.3 19A and Hypertension I10 Pulmonary [facility] [address] [place] [address] 03/23/2025 Hubettye Maurer Centrilobular emphys larissa J43.2 ; Chronic respiratory failure with hypoxia J96.11 ; Chronic respiratory failure with hypercapnia J96.12 ; ISABEL (obstructive sleep apnea) G47.33 ; History of tobacco abuse Z87.891 ; History of asbestosis Z87.09 ; detention (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 of systemic steroids Z79.52 ; 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 helper (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 of inhaled steroids Z79.51 and Obesity, unspecified E66.[address] [address] [address] 07/13/2024 Hu Bunn Centrilobular emphys larissa J43.2 ; Chronic respiratory failure with hypoxia J96.11 ; History of tobacco abuse Z87.891 ; History of asbestosis Z87.09 ; Coronary arteriosclerosis I25.10 ; Atrial fibrillation, unspecified I48.91 ; buttermaker helper (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 of systemic steroids Z79.52 ; buttermaker helper (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 of inhaled steroids Z79.51 and Obesity, unspecified E66.[address] [address] 10/27/2024 Hu Bunn Centrilobular emphys larissa J43.2 ; Hypersomnia, unspecified G47.10 ; Chronic respiratory failure with hypercapnia J96.12 ; Chronic respiratory failure with hypoxia J96.11 ; Metabolic alkalosis E87.3 ; History of tobacco abuse Z87.891 ; History of asbestosis Z87.09 ; Coronary arteriosclerosis I25.10 ; Atrial fibrillation, unspecified I48.91 ; buttermaker helper (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 of systemic steroids Z79.52 ; buttermaker helper (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 of inhaled steroids Z79.51 and Obesity, unspecified E66.[address] [address] 01/19/2025 Hu Bunn Centrilobular emphys larissa J43.2 ; ISABEL (obstructive sleep apnea) G47.33 ; Chronic respiratory failure with hypercapnia J96.12 ; Chronic respiratory failure with hypoxia J96.11 ; History of tobacco abuse Z87.891 ; History of asbestosis Z87.09 ; buttermaker helper (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 of systemic steroids Z79.52 ; buttermaker helper (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 of inhaled steroids Z79.51 and [...] voiced understanding and elected to begin with [employer]. Paperwork was signed. Hopefully it will be [...] respiratory failure with hypoxia (ICD-10 - J96.11) Ljba-pw-gphc encounter performed with the patient to document [...] for [employer], but there was a $500 wiy-zp-akucyc cost monthly. He apparently did not feel [...] the 10mg/day dose. I reviewed labs that [facility] cardiology ordered from 10/01/2024. I note [...] to use a PAP/NIV if indicated. Unfortunately, [facility] has been very difficult to reach regarding [...] Screen patiented for obstructive sleep apnea. His [place] was 13 and STOP-BANG was 8. He [...] to proceed with PAP therapy if indicated. Rhhu-kg-atis was performed today regarding need for CPAP [...] ISABEL (obstructive sleep apnea) (ICD-10 - G47.33) Jnca-iq-bcpl encounter performed with the patient to document continued need for PAP therapy. -Current DME: [employer] -Split night 11/10/2024: AHI 61, Titration 23/08 with 5L/min O2 bleed-in -Compliance was reviewed from 12/20/2024 - 01/18/2025 -Total days used: (100%) -Total of all days >4 hours of use: 29 (97%) -Current model, mode, & set pressure: [...] @ bedtime and with any naps. -This dxvz-ez-ihag visit comes with my authorization that the patient's DME may request to renew, reorder, and/or replace tubing, supplies, mask, and/or PAP device (if applicable). 01/07/2025 Well adult (ICD-10 - Z00.00) 01/07/2025 Coronary arteriosclerosis (ICD-10 - I25.10) 03/23/2025 Centrilobular emphysema (ICD-10 - J43.2) Prior [...] respiratory failure with hypoxia (ICD-10 - J96.11) Ysbx-lj-kdec encounter performed with the patient to document [...] with his POC and current home concentrator. 05/13/2025 Hamstring tear (ICD-10 - S76.319A) 05/13/2025 Hypertension (ICD-10 - I10) holding lisinopril and repat bp friday08/17/2024 Centrilobular emphysema (ICD-10 - J43.2) Prior treatment: [...] E66.9) 02/11/2025 Coronary arteriosclerosis (ICD-10 - I25.10) 03/23/2025 Chronic respiratory failure with hypercapnia (ICD-10 - J96.12) ABG 10/27/2024: pH: 7.34, pCO2: 59.3, pO2: 72.9, SaO2: 94%, FiO2: 3L/min Continue BiPAP. 01/07/2025 Atrial fibrillation, unspecified (ICD-10 - I48.91) [...] respiratory failure with hypoxia (ICD-10 - J96.11) Pxjt-mu-ssiu encounter performed with the patient to document [...] respiratory failure with hypoxia (ICD-10 - J96.11) Sssh-qt-vlem encounter performed with the patient to document [...] History of atrial fibrillation (ICD-10 - Z86.79) 03/23/2025 ISABEL (obstructive sleep apnea) (ICD-10 - G47.33) Previously evaluated. Continue PAP. Fikt-vo-xxgo encounter performed with the patient to document [...] @ bedtime and with any naps. -This nukr-pe-cfbp visit comes with my authorization that the patient's DME may request to renew, reorder, and/or replace tubing, supplies, mask, and/or PAP device (if applicable). 02/11/2025 History of atrial fibrillation (ICD-10 - Z86.79) 02/11/2025 Chronic respiratory failure with hypercapnia (ICD-10 - J96.12) 03/23/2025 History of tobacco abuse (ICD-10 - Z87.891) 2ppd x 35 years (70 pack-years), quit 2012 2ppd x35 years, quit 2011. No further LDCT to be done as patient does not want any treatment if he has lung cancer. 01/07/2025 Granulomatous lung disease (ICD-10 - J84.10) [...] situation, but he requested a referral to [facility]. His major gripe was not having the same partnership manager every visit. I personally walked over to [facility] and asked them how they have follow-up set up. They stated that they make an attempt to keep the patient with the same physician, but often alternates every other visit with a nurse practitioner. I relayed this information to the patient and he voiced he would like to have a referral placed to [facility]. I placed a referral for [...] chest. 01/07/2025 Anemia, unspecified (ICD-10 - D64.9) 03/23/2025 History of asbestosis (ICD-10 - Z87.09) Exposure to asbestos from brake pads. No evidence of asbestos on prior CT chest. 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 10/27/2024 History of asbestosis (ICD-10 - Z87.09) Exposure to asbestos from brake pads. No evidence of asbestos on prior CT chest. 07/13/2024 detention (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 of systemic steroids (ICD-10 - Z79.52) Discussed adverse effects of terminal operator systemic steroids including, but not limited to: increased risk of cataracts, elevated blood sugars/worsening of underlying diabetes mellitus, impaired wound healing, gastrointestinal ulcers, osteoporosis. 07/13/2024 detention (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 of inhaled steroids (ICD-10 - Z79.51) Patient was counseled to rinse & gargle with water after inhaled corticosteroid use. 10/27/2024 Coronary arteriosclerosis (ICD-10 - I25.10) Patient changed to [facility] cardiology and voiced he is very happy with the switch. 01/19/2025 detention (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 of inhaled steroids (ICD-10 - Z79.51) Patient was counseled to rinse & gargle with water after inhaled corticosteroid use. 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 03/23/2025 Obesity, unspecified (ICD-10 - E66.9) Healthy calorie intake recommended. 01/19/2025 Obesity, unspecified (ICD-10 - E66.9) Healthy calorie intake recommended. 10/27/2024 Atrial fibrillation, unspecified (ICD-10 - I48.91) 07/13/2024 Obesity, unspecified (ICD-10 - E66.9) Technically obese, but he has lost 20 pounds unintentionally over the past 2 months d/t decreased appetite. 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 10/27/2024 detention (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 of inhaled steroids (ICD-10 - Z79.51) Patient was counseled to rinse & gargle with water after inhaled corticosteroid use. 10/27/2024 Obesity, unspecified (ICD-10 - E66.9) Technically obese, but he has lost 20 pounds unintentionally over the past 2 months d/t decreased appetite. 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 01/19/2025 Other Screen patiented for obstructive sleep apnea. His [place] was 13 and STOP-BANG was 8. He [...] to proceed with PAP therapy if indicated. Dpsc-qu-uqdz was performed today regarding need for CPAP or BiPAP if he qualifies. Patient changed to [facility] cardiology and voiced he is very happy with the switch. HCO3- 39.5, Suspected chronic hypercapnic respiratory failure, which I was correct based on ABG drawn today. 03/23/2025 Other Screen patiented for obstructive sleep apnea. His [place] was 13 and STOP-BANG was 8. He [...] to proceed with PAP therapy if indicated. Isov-zs-drer was performed today regarding need for CPAP or BiPAP if he qualifies. Patient changed to [facility] cardiology and voiced he is very happy with the switch. HCO3- 39.5, Suspected chronic hypercapnic respiratory failure, which I was correct based on ABG drawn today. Plan Of Treatment Pending Test Test Name Order Date HEMOGLOBIN A1C (GLYCO) 01/07/2025 INSULIN, TOTAL 01/07/2025 LIPID PANEL (CHOL/TRIG/HDL/LDL) 01/08/20 25 URIC ACID 01/07/2025 High Sensitivity Troponin 01/07/2025 PROF 14(COMP METB) 01/08/2025 MRI BRAIN WO CON 02/11/2025 US AZUCENA DOP LEG RT 05/13/2025 THYROID PANEL (T4/TSH/FREE T3) PSA, SCREENING 01/07/2025 Calcium, Ionized, Serum 01/08/2025 CMP (COMP MET DONAHUE) w/eGFR CKD-EPI 2024 CBC WITH DIFF 01/07/2025 Future Test Test Name Order Date CT Chest Low Dose for Screening* 024 Insurance Providers Payer Name Payer Address Payer Phone Subscriber Number Group Number Insured Name Patient Relationship to Insured Coverage Start Date Coverage End Date [facility] [address] [address] [place] [phone] [id number] Elise Tabor Self - patient is the [...] bypass graft 2015 Hospitalization History Reason Date(Month/Year) [facility] ER 05/02/2023
--- OUTSIDE RECORDS SUMMARY | 2025-05-13 11:34 | XMS_ITS | Encounter Summary ---
Author Organization [facility] Address [address] [place] [address] Care Team Providers Care General Neurologist Name Role Phone Mario Zayas MD Primary Care Provider [phone] Encounter Details Date Type Department Care Team (Late st Contact Info) Description 04/21/2025 Results Follow-Up [facility] [address] [place] [id number] Dorinda Diaz MD [address] [facility] [id number] [place] [address] Cardiac catheterization Social History Tobacco Use Types Packs/Day Years Used Date Smoking Tobacco: Former Cigarettes Smokeless Tobacco: Never Alcohol Use Standard Drinks/Week Comments Yes 0 [...] Description 05/27/2025 11:00 AM EDT Office Visit [facility] [address] [place] [address] Dorinda Diaz MD [address] [facility] [id number] [place] [address] documented as of this encounter Visit Diagnoses Not on filedocumented in this encounter Care Teams General Neurologist Relationship Specialty Start Date End Date Mario Zayas MD [phone] PCP - General Family Medicine 02/09/25 documented as of this encounter
--- OUTSIDE RECORDS SUMMARY | 2025-05-13 11:35 | XMS_ITS | CCD ---
Author Organization [facility] Care Team Providers Care Engineering Mathematician Name Role Phone ERICK MELLISA STOHLER Unavailable [...] Unavail able SAMSA ., DARNELL Admitting Unavailable [facility] Primary Care Unavailable SAMSA ., DARNELL Attending Unavailable SAMSA ., DARNELL Consulting Unavailable SAMSA ., DARNELL Admitting Unavailable [facility] Primary Care Unavailable SAMSA ., DARNELL Attending Unavailable SAMSA ., DARNELL Consulting Unavailable GREG, KACIE Consulting Unavailable [facility] Primary Care Unavailable SAMSA ., DARNELL Attending Unavailable SAMSA ., DARNELL Consulting Unavailable SAMSA ., DARNELL Admitting Unavailable [facility] Primary Care Unavailable DR ALEYDA DYER Consulting Unavailable SAMSA ., DARNELL Attending Unavailable SAMSA ., DARNELL Admitting Unavailable SAMSA ., DARNELL Consulting Unavailable Noam CHRISTIAN, Risa Unavailable EMELY CANTU Referring Unavailable KACIE DEL REAL Primary Care Unavailable GILLIAN TAYLOR Attending Unavailable KACIE DEL ERAL Referring Unavailable RISA MCNULTY Primary Care Unavailable Kacie Del Real MD Primary Care Provider Noam MAT INSPECTOR-ORAL PATHOLOGISTRisa Primary Care Provider [phone] LINSEY HALL Attending Unavailable TREE KRISHNAN Attending Unavailable TREE KRISHNAN Attending Unavailable ALEYDA FISHER Attending Unavailable ROLAND BILL Referring Unavailable LINSEY HALL Attending Unavailable JUAN FLORES Admitting Unavailable JUAN FLORES Attending Unavailable JUAN FLORES Referring Unavailable BENNY DIAZ Referring Unavailable BENNY DIAZ Attending Unavailable BENNY DIAZ Attending Unavailable BENNY DIAZ Attending Unavailable Allergies Allergy Classification Reported Allergen(s) Allergy Type Date of Onset Reaction(s) Facility (16 sources) Gluten Propensity to adverse reactions 2 GI intolerance [facility] (16 sources) Isosorbide Dinitrate Drug Allergy 2 Headache [facility] (11 sources) Gluten; Translations: [GLUTEN] Propensity to adverse reactions to food (disorder) 2 [facility] (11 sources) Isosorbide; Translations: [ISOSORBIDE MONONITRATE] Drug Allergy 2 Headache [facility] (1 source) ALLERGIES NOT ON FILE; Translations: [ALLERGIES NOT ON FILE] Propensity to adverse reactions (disorder) [facility] Medications Current Medications Medication Drug Class(es) Dates Sig (Normalized) Sig (Original) [id number] 200 actuat albuterol 0.09 mg/actuat metered dose inhaler (20 sources) beta2-Adrenergic Agonist albuterol (5 MG/ML) 0.5% nebulizer solution Take 2.5 mg by nebulization every 4 (four) hours if needed for wheezing or shortness of breath Active take 2 puff(s) by in halation every six hours for wheezing albuterol HFA 90 mcg/act inhaler Inhale 2 puffs every 6 (six) hours if needed for wheezing or shortness of breath Active take 2.5 mg by inhal ation [...] artery disease involving coronary bypass graft of eek heart without angina pectoris , Hx of CABG , Paroxysmal atrial fibrillation (CMS-HCC) , Aneurysm of ascending aorta without rupture , History of maze procedure Take 1 tablet (40 mg total) by mouth in the morning. 90 tablet 1 02/19/2024 Active azithromycin 250 mg oral tablet (16 sources) Macrolide Antimicrobial take 1 tablet by mouth once daily azithromycin (Zithromax) 250 MG tablet Take 250 mg by mouth Daily Active cholecalciferol 0.05 mg oral capsule (20 sources) Vitamin D cholecalciferol (Vitamin D-3) 50 MCG (2000 UT) capsule 1 capsule 1 (one) time each day at the same time Active End: 2025 take 1 tablet by mouth in the morning cholecalciferol (Vitamin D-3) 25 MCG (1000 UT) tablet Take 1,000 Units by mouth in the morning. 2025 Discontinued dapagliflozin 10 mg oral tablet (5 sources) Sodium-Glucose Cotransporter 2 Inhibitor Start: 02-10-2025 End: 02-10-2026 dapagliflozin (Farxiga) 10 MG Take 10 mg by mouth 02/10/2025 02/10/2026 Active ferrous sulfate 325 mg delayed release oral tablet (20 sources) take 1 tablet by mouth at mealtime ferrous sulfate 325 (65 Fe) MG EC tablet Take 65 mg by mouth in the morning. Take with meals. Active 30 actuat fluticasone furoate 0.1 mg/actuat / umeclidinium 0.0625 mg/actuat / vilanterol 0.025 mg/actuat dry powder inhaler (20 sources) Anticholinergic, Corticosteroid, beta2-Adrenergic Agonist Start: 03-15-2022 take 1 puff(s) by inhalation in the morning Trelegy Ellipta 100-62.5-25 MCG/ACT aerosol powder Inhale 1 puff in the morning. 03/15/2022 Active Start: 03-15-2022 Trelegy Ellipt a 100-62.5-25 MCG/INH AEPB Quantity: 180 Refills: 0 Ordered: 15-Mar-2022 DO Start : 15-Mar-2022 Active cmymjritoov-ckkkgvqpi-wbfvyl er (TRELEGY ELLIPTA) 200-62.5-25 mcg blister with device (10 sources) Start: 03-15-2022 ruagdrztasr-qsjwfamnm-bdyjcd er (TRELEGY ELLIPTA) 200-62.5-25 mcg blister with device 1 puff in the morning. 03/15/2022 Active gabapentin 600 mg oral table t (14 sources) Anti-e pilept ic Agent Start: 03-30-2022 take 1 tablet by mouth three times daily gabapentin (NEURONTIN) 600 mg tablet Take 1 tablet (600 mg total) by mouth 3 (three) times a day. 03/30/2022 Active Start: 03-30-2022 Gabapentin 300 MG Oral Capsule Quantity: 270 Refills: 0 Ordered: 30-Mar-2022 DO Start : 30-Mar-2022 Active 24 hr isosorbide mononitrate 30 mg extended release oral tablet (16 sources) Nitrate Vasodilator Start: 06-13-2022 take 1 tablet by mouth once daily, then take 1 tablet by mouth every twenty-four hours isosorbide mononitrate ER (Imdur) 30 MG 24 hr tablet Take 30 mg by mouth Daily 06/13/2022 Active levoFLOXacin 500 mg oral tablet (2 sources) Quinolone Antimicrobial Start: 2025 End: 04-04-2025 take 1 tablet by mouth once daily levoFLOXacin (Levaquin) 500 MG tablet Indications: Otorrhea of right ear Take 1 tablet (500 mg) by mouth Daily for 10 days 10 tablet 2025 04/04/2025 Active lisinopril 5 mg oral tablet (20 sources) Angiotensin Converting Enzyme Inhibitor Start: 01-20-2023 End: 11-12-2024 take 1 tablet by mouth once daily in the morning lisinopriL (PRINIVIL,ZESTRIL ) 5 mg tablet Indications: Coronary artery disease involving coronary bypass graft of eek heart without angina pectoris , Hx of CABG , Paroxysmal atrial fibrillation ([facility]) , Aneurysm of ascending aorta without rupture , History of maze procedure TAKE 1 TABLET BY MOUTH ONCE DAILY IN THE MORNING 30 tablet 11/12/2024 Active Start: 03-14-2022 Lisinopril 5 M G Oral Tablet Quantity: 90 Refills: 0 Ordered: 14-Mar-2022 DO Start : 14-Mar-2022 Active meloxicam 15 mg oral tablet (5 sources) Nonsteroidal Anti-inflammatory Drug take 1 tablet by mouth once daily meloxicam (Mobic) 15 MG tablet Take 15 mg by mouth Daily Active 24 hr metoprolol succinate 50 mg extended release oral tablet (20 sources) beta-Adrenergic Melonie Start: 06-25-20 metoprolol succinate XL (TOPROL XL) 50 mg 24 hr tablet Indications: Coronary artery disease involving coronary bypass graft of eek heart without angina pectoris , Hx of [...] Ordered: 23-Mar-2022 DO Start : 23-Mar-2022 Active nitroglycerin 0.4 mg sublingual tablet (20 sources) Nitrate Vasodilator Start: 07-25-2022 nitroglyce rin (Nitrostat) 0.[address] 0.4 mg under the tongue every 5 (five) minutes if needed for chest pain 07/25/2022 Active Start: 07-25-2022 End: 08-03-2024 nitroglycerin (NITROSTAT) 0. 4 MG SL tablet Indications: Coronary artery disease involving coronary bypass graft of eek heart without angina pectoris , Paroxysmal atrial fibrillation (CMS-HCC) , Aneurysm of ascending aorta without rupture , Hx of CABG , History of maze procedure DISSOLVE 1 TABLET UNDER THE TONGUE NEEDED FOR CHEST PAIN- MAY REPEAT EVERY 5 MINUTES IF NEEDED ( MAX 3 DOSES.- IF NO RELIEF CALL 911) 25 tablet 11 08/03/2024 Active ofloxacin 3 mg/ml otic solution (15 sources) Quinolone Antimicrobial Start: 02-17-2023 End: 04-04-2025 ofloxacin (Floxin) 0.3 % otic solution Indications: Otorrhea of right ear Administer 5 drops into the right ear in the morning and 5 drops before bedtime. Do all this for 10 days. 5 mL 1 2025 04/04/2025 Active omeprazole 40 mg delayed release oral [...] Oxygen (10 sources) oxygen Inhale continuously. Active pantoprazole 40 mg delayed release oral tablet (5 sources) Proton Pump Inhibitor Start: take 1 tablet by mouth once daily pantoprazole (ProtoNix) 40 MG EC tablet Take 40 mg by mouth Daily 02/07/2025 Active predniSONE 20 mg oral tablet (16 sources) take 1 tablet by mouth once daily predniSONE (Deltasone) 20 MG tablet Take 20 mg by mouth Daily Active pregabalin 150 mg oral capsule (19 sources) Start: End: take 1 capsule by mouth in the [...] tablet (20 sources) Phosphodiesterase 4 Inhibitor Start: take 1 tablet by mouth in the morning Daliresp 500 MCG tablet Take 500 mcg by mouth in the morning. 03/15/2022 Active sodium chloride 9 mg/ml inhalation solution (2 sources) Start: sodium chloride 0.9 % nebulizer solution Inhale 3 mL 03/23/2025 Active spironolactone 25 mg oral tablet (5 sources) Aldosterone Antagonist Start: End: take 1 tablet by mouth in the morning spironolactone (Aldactone) 25 MG tablet Take 25 mg by mouth in the morning. 02/09/2025 02/09/2026 Active SUMAtriptan 100 mg oral tablet (16 sources) Serotonin-1b and Serotonin-1d Receptor Agonist SUMAtriptan (Imitrex) 100 MG tablet Active TESTOSTERONE, BULK, MISC (10 sources) TESTOSTERONE, BU LK, MISC by miscellaneous route. 100 mg 1 tablet daily Active theophylline 400 mg extended release oral tablet (20 sources) Methylxanthine Start: take 1 tablet by mouth in the morning, then take 1 tablet by mouth every twenty-four hours at bedtime theophylline ER (Uniphyl) 400 MG 24 hr tablet Take 400 mg by mouth in the morning and 400 mg before bedtime. 01/16/2023 Active take 1 capsule by [facility] every twenty-four hours in the morning theophylline (BRYAN-24) 400 MG 24 hr capsule Take 1 capsule (400 mg total) by mouth in the morning. Active tiZANidine 4 mg oral tablet (5 sources) Central alpha-2 Adrenergic Agonist Start: 01-07-2025 take 2 tablets by mouth at bedtime tiZANidine (Zanaflex) 4 MG tablet TAKE 2 TABLETS BY MOUTH AT BEDTIME FOR 30 DAYS 01/07/2025 Active topiramate 50 mg oral tablet (5 sources) Start: 02-21-2025 take 1 tablet by mouth once daily topiramate 50 MG tablet Take 1 tablet by mouth Daily 02/21/2025 Active zinc gluconate 50 mg oral tablet (20 sources) zinc gluconate 5 0 MG tablet 1 (one) time each day at the same time Active Completed/Discontinued Medications Medication Drug Class(es) Dates Sig (Normalized) Sig (Original) acetaminophen 300 mg / codeine phosphate 30 mg oral tablet (13 sources) Opioid Agonist Start: 06-12-2023 End: 2025 take 1 tablet by mouth every six hours as needed for pain acetaminophen-code ine (Tylenol w/ Codeine #3) 300-30 MG tablet take 1 tablet by mouth every 6 hours NEEDED FOR PAIN for 5 days 06/12/2023 2025 Discontinued dicyclomine hydrochloride 20 mg oral tablet (13 sources) Anticholinergic Start: 04-01-2023 End: 2025 take 1 tablet by mouth three times daily for pain dicyclomine (Bentyl) 20 MG tablet take 1 tablet by mouth three times a day if needed for abdominal pain 04/01/2023 2025 Discontinued Fluticasone-Umeclidi n-Vilant 200-62.5-25 MCG/ACT aerosol powder (13 sources) Start: 11-19-2022 End: 2025 take 1 puff(s) by inhalation once daily Fluticasone-Umecli din-Vilant 200-62.5-25 MCG/ACT aerosol powder Inhale 1 puff 1 (one) time each day. 11/19/2022 2025 Discontinued Start: 11-19-2022 take 1 puff(s) by inhalation once daily Vwhglvzokqv-Cxmmmeifb-Ioxboc 200-62.5-25 MCG/ACT aerosol powder Inhale 1 puff 1 (one) time each day. 11/19/2022 Active lysine 500 mg oral tablet (7 sources) End: 06-24-2024 take 1 tablet by mouth in the morning lysine 500 mg tablet Take 1 tablet (500 mg total) by mouth in the morning. 06/24/2024 Discontinued Ann Marie 500 MG capsule (13 sources) End: 2025 Ann Marie 500 MG capsule as directed Orally 2025 Discontinued Ann Marie 500 MG caps ule as directed Orally Active naproxen sodium 220 mg oral tablet (13 sources) Nonsteroidal Anti-inflammatory Drug End: 2025 naproxen sodium (Aleve) 220 MG tablet every 12 (twelve) hours. 2025 Discontinued 12 hr naproxen sodium 220 mg / pseudoephedrine hydrochloride 120 mg extended release oral tablet (20 sources) alpha-Adrenergic Agonist, Nonsteroidal Anti-inflammatory Drug End: 2025 take 1 tablet by mouth every twelve hours in the morning pseudoephedrine- Naproxen Na ER 120-220 MG tablet sustained-releas e 12 hour Take 1 tablet by mouth in the morning and 1 tablet before bedtime. 2025 Discontinued saw palmetto (Serenoa repens) 450 MG capsule (13 sources) End: 2025 saw palmetto (Serenoa repens) 450 MG capsule as directed Orally 2025 Discontinued saw palmetto (Se renoa repens) 450 MG capsule as directed Orally Active soybean lecithin 1200 mg oral capsule (13 sources) End: 2025 take 1 capsule by mouth once daily Lecithin 1200 MG capsule Take 1 capsule every day by oral route. 2025 Discontinued vitamin b12 1 mg oral tablet (20 sources) Vitamin B12 End: 2025 take 1 tablet by mouth in the morning cyanocobalamin (Vitamin B-12) 1000 MCG tablet Take 1,000 mcg by mouth in the morning. 2025 Discontinued End: 2025 cyanocobalamin (Vitamin B-12 ) 500 MCG tablet 1 (one) time each day at the same time. 2025 Discontinued zonisamide 25 mg oral capsule (7 [...] obstruction, not elsewhere classified] Onset: 8 Resolved: Chronic Complication of device; implant or graft (20 sources) Arteriosclerosis of coronary artery bypass graft; Translations: [Atherosclerosis of coronary artery bypass graft(s) without angina pectoris] Onset: 2 02-13-2023 Chronic Congestive heart failure; nonhypertensive (11 sources) Chronic systolic heart failure; Translations: [Chronic systolic (congestive) heart failure] Onset: 4 Resolved: 5 2025 Chronic Coronary atherosclerosis and other heart disease (15 sources) Coronary arteriosclerosis; Translations: [Coronary atherosclerosis of unspecified type of vessel, eek or graft] Onset: 4 Resolved: 5 2025 Chronic Disorders of lipid metabolism (20 sources) Mixed hyperlipidemia; Translations: [Mixed hyperlipidemia] Onset: 4 Resolved: 5 06-24-2024 Chronic Essential hypertension (19 sources) Hypertensive disorder; Translations: [Unspecified essential hypertension] Onset: 4 Resolved: 5 06-24-2024 Chronic Melanomas of skin (4 sources) H/O Malignant melanoma; Translations: [Personal history of malignant melanoma of skin] Episodic Other aftercare (4 sources) Encounter for therapeutic drug level monitoring; Translations: [ENC THERAPEUTC DRUG LEVL MONITORING] Onset: 3 Episodic Other aftercare (9 sources) Long-term current use of anticoagulant; Translations: [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] Onset: 4 Resolved: 5 03-26-2025 Episodic Other and ill-defined heart disease (1 source) Heart disease, unspecified; Translations: [Heart disease, unspecified] Onset: 4 Chronic Other and ill-defined heart disease (5 sources) Left ventricular cardiac dysfunction; Translations: [Heart disease, unspecified] Onset: 4 06-24-2024 Chronic Other ear and sense organ disorders (4 sources) Otorrhea of right ear; Translations: [Otorrhea, right ear] 03-26-2025 Episodic Other gastrointestinal disorders (4 sources) History of gastroesophageal reflux disease; Translations: [Personal history of other diseases of digestive system] Episodic Other gastrointestinal disorders (4 sources) H/O: gastrointestinal disease; Translations: [Personal history of other diseases of digestive system] Episodic Other hematologic conditions (4 sources) History of anemia; Translations: [Personal history of diseases of blood and blood-forming organs] Episodic Other nervous system disorders (16 sources) Neuropathy; Translations: [Polyneuropathy, unspecified] Onset: 4 [...] index (BMI) 35.0-35.9, adult] Onset: 4 Chronic Other screening for suspected conditions (not mental disorders or infectious disease) (2 sources) Abnormal result of other cardiovascular function study; Translations: [Abnormal result of other cardiovascular function study] Onset: 5 Episodic Otitis media and related conditions (4 sources) Dysfunction of right eustachian tube; Translations: [Unspecified Eustachian tube disorder, right ear] 03-26-2025 Episodic Spondylosis; intervertebral disc disorders; other back problems (20 sources) Degeneration of lumbar intervertebral disc; Translations: [DDD (degenerative disc disease), lumbar] Onset: 4 01-20-2024 Chronic Unclassified (1 source) Neck Pain / [id number]() Onset: 8 Unclassified (1 source) Stiffness / 343() Onset: 8 Unclassified (1 source) Back Pain / 12() Onset: 8 Unclassified (1 source) Upper Extremity Weakness / [id number]() Onset: 8 Unclassified (2 sources) Abnormal stress test Onset: 5 Unclassified (1 source) Abdominal aortic aneurysm, without [...] Date Documented Da te Episodic/Chronic Cardiac dysrhythmias (16 sources) Sinus tachycardia; Translations: [Tachycardia, unspecified] Onset: 01-22-2018 Resolved: 06-27-2023 06-27-2023 Episodic Headache, including migraine (20 sources) Headache; Translations: [Occipital headache] Onset: 04-08-2018 Resolved: 06-27-2023 06-27-2023 Episodic Hypertension with complications and secondary hypertension (5 sources) Hypertensive heart failure; Translations: [Hypertensive heart disease with heart failure] Onset: 2025 Resolved: 2025 2025 Chronic Osteoarthritis (5 sources) Arthritis; Translations: [Unspecified osteoarthritis, unspecified site] Onset: 08-16-2024 Resolved: 2025 2025 Chronic Other aftercare (2 sources) 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; Translations: [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] Onset: 08-16-2024 Episodic Other gastrointestinal disorders (16 sources) Celiac disease; Translations: [Celiac disease] Onset: 03-04-2019 Resolved: 06-27-2023 06-27-2023 Chronic Other male genital disorders (5 sources) Male erectile dysfunction, unspecified; Translations: [Impotence of organic origin] Onset: 08-16-2024 Resolved: 2025 2025 Chronic Other nervous system disorders (16 sources) Polyneuropathy; Translations: [Polyneuropathy, unspecified] Onset: 06-27-2023 Resolved: 06-27-2023 06-27-2023 Chronic Other nervous system disorders (16 sources) Paresthesia; Translations: [Paresthesia of skin] Onset: 01-20-2024 01-20-2024 Episodic Other non-traumatic joint disorders (5 sources) Pain in wrist; Translations: [Pain in unspecified wrist] Onset: 08-16-2024 Resolved: 2025 2025 Episodic Other nutritional; endocrine; and metabolic disorders (5 sources) Severe obesity; Translations: [Class 2 severe obesity due to excess calories with serious comorbidity and body mass index (BMI) of 35.0 to 35.9 in adult] Onset: 08-16-2024 Resolved: 2025 2025 Chronic Residual codes; unclassified (20 sources) History of maze procedure for atrial fibrillation; Translations: [Other specified postprocedural states] Onset: 05-20-2022 02-13-2023 Episodic Screening and history of mental health and substance abuse codes (1 source) Personal history of nicotine dependence; Translations: [PERSONAL HISTORY OF NICOTINE DEPEND] Onset: 04-29-2022 Episodic Spondylosis; intervertebral disc disorders; other back problems (20 sources) Cervicalgia; Translations: [Neck pain] Onset: 04-08-2018 Resolved: 06-27-2023 06-27-2023 Episodic Unclassified (1 source) Abdominal aortic aneurysm, without rupture, unspecified; Translations: [Abdominal aortic aneurysm, without rupture, unspecified] Onset: 12-31-2024 Unclassified (1 source) Aneurysm of the ascending aorta, without rupture; Translations: [Aneurysm of the ascending aorta, without rupture] Onset: 08-16-2024 Unclassified (1 source) Obesity, class 2; Translations: [Obesity, class 2] Onset: 08-16-2024 Results Test Name Value Interpretation Reference Range Facility [facility] 04-21-2025 ANES --------- Attestation signed by Juan Flores MD at 04/21/2025 12:57 PM I personally spoke with and examined Mr. Tabor with Dr. Saleh. He has a drop in LVEF and a positive stress test. Plan cors, LV and WALTERS angiography. He voices understanding of risks (, PA, bleeding, etc) and agrees to proceed. Patient: Elise Tabor Pre-sedation Evaluation: Moderate sedation History of Present Illness: Patient here for coronary angiography due to abnormal stress test. Lexiscan stress test showed mid and apical inferior ischemia. Echo showed EF 35-40% on 02/03/2025. Medical History[1] Principle problems: Patient Active Problem List Diagnosis Date Noted Nausea 04/14/2025 Arthritis 08/16/2024 Celiac disease 08/16/2024 Coronary artery disease involving eek coronary artery of eek heart without angina pectoris 08/16/2024 Erectile dysfunction 08/16/2024 Pain in wrist 08/16/2024 Peripheral polyneuropathy 08/16/2024 Cardiomyopathy, ischemic 08/16/2024 Chronic systolic heart failure (CMS/HCC) 08/16/2024 Chronic anticoagulation 08/16/2024 Pure hypercholesterolemia 08/16/2024 Class 2 severe obesity due to excess calories with serious comorbidity and body mass index (BMI) of 35.0 to 35.9 in adult ([facility]) 08/16/2024 Mixed hyperlipidemia 06/24/2024 Essential hypertension 06/24/2024 DDD (degenerative disc disease), lumbar 01/20/2024 Neuropathy 01/20/2024 Paresthesia 01/20/2024 History of maze procedure 05/20/2022 Paroxysmal A-fib ([facility]) 05/20/2022 Thoracic aortic aneurysm without rupture 05/20/2022 Cervicalgia 04/08/2018 Headache in back of head 04/08/2018 Abnormal cardiovascular stress test 04/05/2025 Allergies: Allergies[2] 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 Risks, benefits, and alternatives to procedure discussed with patient in detail who expressed understanding and agreed to proceed. Lars Saleh PGY-4 [employer] [facility] [1] Past Medical History: Diagnosis Date Abnormal ECG Aneurysm Arrhythmia Atrial fibrillation ([facility]) Cardiomyopathy ([facility]) COPD (chronic obstructive pulmonary disease) ([facility]) Coronary artery disease Hyperlipidemia Hypertension [2] No Known Allergies [3] Medications Prior to Admission Medication Sig Dispense Refill Last Dose/Taking albuterol (Ventolin HFA) 90 mcg/actuation inhaler Inhale 1 puff every 4 (four) hours if needed for wheezing or shortness of breath. 04/20/2025 Evening apixaban (Eliquis) 5 mg tablet Take 1 tablet (5 mg) by mouth two times daily. 180 tablet 3 Past Week aspirin 81 mg chewable tablet Chew 81 mg in the morning. 04/21/2025 Morning atorvastatin (Lipitor) 80 mg tablet Take 1 tablet (80 mg) by mouth at bedtime. 90 tablet 3 04/20/2025 Bedtime azithromycin (Zithromax) 250 mg tablet Take 250 mg by mouth in the morning. 04/21/2025 Morning cholecalciferol, vitamin D3, 50 mcg (2,000 unit) capsule Take 1 capsule by mouth in the morning. 04/21/2025 Morning dapagliflozin propanediol (Farxiga) 10 mg Take 1 tablet (10 mg) by mouth once daily as directed. 90 tablet 3 04/21/2025 Morning ipratropium-albuteroL (Duo-Neb) 0.5-2.5 mg/3 mL nebulizer solution INHALE 1 vial via NEBULIZER FOUR TIMES DAILY NEEDED 04/21/2025 Morning lisinopril 5 mg tablet Take 1 tablet (5 mg) by mouth once daily as directed. 90 tablet 3 04/21/2025 Morning meloxicam (Mobic) 15 mg tablet Take 15 mg by mouth in the morning. 04/21/2025 Morning metoprolol succinate XL (Toprol-XL) 50 mg 24 hr tablet Taking 100mg in the AM, 50mg in the PM 270 tablet 3 04/21/2025 Morning nitroglycerin (Nitrostat) 0.4 mg SL tablet DISSOLVE 1 TABLET UNDER THE TONGUE NEEDED FOR CHEST PAIN- MAY REPEAT EVERY 5 MINUTES IF NEEDED ( MAX 3 DOSES.- IF NO RELIEF CALL 911) Past Month pantoprazole (ProtoNix) 40 mg EC tablet Take 40 mg by mouth in the morning. 04/21/2025 Morning predniSONE (Deltasone) 10 mg tablet Take 10 mg by mouth in the morning. 04/21/2025 Morning pregabalin (Lyrica) 150 mg capsule Take 150 mg by mouth 3 times (more content not included)... [facility] HPon 04-21-2025 HP H&P reviewed. The guillermo so was examined and there are no changes to the H&P. Will proceed with coronary angiography for further evaluation of abnormal stress test. Consent for blood products obtained. Risks, benefits, and alternatives to procedure discussed with patient in detail who expressed understanding and agreed to proceed. [facility] [place] 04-21-2025 NURSNOTE RN educated pt on d/ c instructions. This included: site care, limited physical activity, resume normal diet, future appointments, medications, and moderate sedation instructions. RN educated pt on when to notify physician and when to go to the hospital. RN provided pt with arm sling and educated pt on importance of not using arm for 24 hours for radial sites. RN encouraged pt to voice any questions or concerns, and answered any questions or concerns if pt verbalized. Pt was wheeled off of unit with all of belongings. [facility] NURSNOTE Patient requesting r alexandra do his DuoNeb nebulizer prior to having his cath done. Resp central office operator supervisor called to have the treatment done - states someone will be down as soon as possible [facility] HPon 04-14-2025 [facility] Note Reason for cardiology visit: Follow-up after stress test HPI: 04/14/2025 Patient is here today for follow-up visit. He reports that he has been doing well. He denies any chest discomfort at rest or with exertion. He has chronic shortness of breath with activities due to COPD and he is on oxygen at 3 L/min. He denies orthopnea or paroxysmal nocturnal dyspnea or palpitation or dizziness or legs edema. 12/31/2024 Patient is here today for follow-up [...] the night 08/16/2024 Elise Tabor is a 65 y.o. male with history of coronary artery disease and coronary artery bypass surgery and maze procedure, paroxysmal atrial fibrillation, s/p ablation in [place], thoracic aortic aneurysm, left ventricle dysfunction, hypertension, hyperlipidemia COPD, prior tobacco and alcohol abuse [facility] He states that overall he has [...] has never used smokeless tobacco. He reports current alcohol use. He reports that he does not use drugs. Family History Family History Problem Relation Name [...] 1 tablet (80 mg) by mouth at bedtime., Disp: 90 tablet, Rfl: 3 azithromycin (Zithromax) 250 mg tablet, Take 250 mg by mouth in the morning., Disp: , Rfl: cholecalciferol, vitamin D3, 50 mcg (2,000 unit) capsule, 1 capsule., Disp: , Rfl: dapagliflozin propanediol (Farxiga) 10 mg, Take 1 tablet (10 mg) by mouth once daily as directed., Disp: 90 tablet, Rfl: 3 ipratropium-albuteroL (Duo-Neb) 0.5-2.5 mg/3 mL nebulizer solution, INHALE 1 vial via NEBULIZER FOUR TIMES DAILY NEEDED, Disp: , Rfl: lisinopril 5 mg tablet, Take 1 tablet (5 mg) by mouth once daily as directed., Disp: 90 tablet, Rfl: 3 meloxicam (Mobic) 15 mg tablet, Take 15 [...] NO RELIEF CALL 911), Disp: , Rfl: pantoprazole (ProtoNix) 40 mg EC tablet, Take 40 mg by mouth in the morning., Disp: , Rfl: predniSONE (Deltasone) 10 mg tablet, Take 10 mg by mouth in the morning., Disp: , Rfl: pregabalin (Lyrica) 150 mg capsule, Take 150 mg by mouth 3 times a day., Disp: , Rfl: roflumilast (Daliresp) 500 mcg tablet, Take 500 mcg by mouth in the morning., Disp: , Rfl: sodium chloride 0.9 % nebulizer solution, Take 3 mL by nebulization if needed., Disp: , Rfl: spironolactone (Aldactone) 25 mg tablet, Take 1 tablet (25 mg) by mouth in the morning., Disp: 90 tablet, Rfl: 3 SUMAtriptan (Imitrex) 100 mg tablet, Take 100 mg by mouth 1 (one) time if needed., Disp: , Rfl: theop (more content not included)... [facility] Office Visiton 04-14-2025 Follow-up visit [id number] Armando Tabor 1960 M Date Provider Department Center 04/14/2025 [id number] Family History Problem Relation Age of Onset Coronary artery disease Mother Coronary artery disease Father Family Status - Relation Status Age at Mother Father Sister Alive Level of Service:45721 [facility] OFFICE/OUTPATIENT ESTABLISHED MOD MDM 30 MIN Reason for Visit and Comments: Follow-up [870659] Abnormal stress test [Other] Cardiac Cath scheduled 04/28/2025 [Other] Coronary Artery Disease [187] Hyperlipidemia [182] Congestive Heart Failure [127] Hypertension [519686] COPD [313] Home o2 3lpm via N/C 31/03 [Other] [facility] 36on 04-12-2025 36 MD Scarlett Hagan MA Overall echo is normal with minor valvular heart disease LVM to advise patient of Dr. Diaz's findings. [facility] Orders Onlyon 04-05-2025 Orders Only [id number] Armando Tabor loida E 1960 M Date Provider Department Center 04/05/2025 [id number] THOMAS CAROL [place] Family History Problem Relation Age of Onset Coronary artery disease Mother Coronary artery disease Father Family Status - Relation Status Age at Mother Father Sister Alive [facility] Orders Onlyon 03-21-2025 Orders Only [id number] Armando Tabor loida E 1960 M Date Provider Department Center 03/21/2025 [id number], [facility] CAROL [place] Family History Problem Relation Age of Onset Coronary artery disease Mother Coronary artery disease Father Family Status - Relation Status Age at Mother Father Sister Alive [facility] 36on 02-09-2025 36 Regarding lab result s from [...] labs prior to apt in Apr-May 2025. [facility] Orders Onlyon 02-04-2025 Orders Only [id number] Armando Tabor loida E 1960 M Date Provider Department Center 02/04/2025 [id number], HISTORICAL SHAVON [place] Family History Problem Relation Age of Onset Coronary artery disease Mother Coronary artery disease Father Family Status - Relation Status Age at Mother Father Sister Alive [facility] Office Visiton 12-31-2024 Follow-up visit [id number] Armando Tabor 1960 M Date Provider Department Center 12/31/2024 BENNY NICOLE CAROL [place] Family History Problem Relation Age of Onset Coronary artery disease Mother Coronary artery disease Father Family Status - Relation Status Age at Mother Father Sister Alive Level of Service:10264 [place] OFFICE/OUTPATIENT ESTABLISHED MOD MDM 30 MIN Reason for Visit and Comments: Coronary Artery Disease [187] Hyperlipidemia [182] Hypertension [076901] [facility] 36on 10-07-2024 36 Regarding echo and [...] and blue Medicare care to apply for [employer] patient assistance program. Free 30 day voucher also provided for patient. BMP order given to be done in 1 week. LIPID,AST,ALT orders given to him to be completed in 2 months after increasing atorvastatin per Dr. Diaz. He verbalized understanding. [facility] Office Visiton 08-16-2024 Follow-up visit [id number] Armando Tabor 1960 M Date Provider Department Center 08/16/2024 BENNY NICOLE CAROL [place] Family History Problem Relation Age of Onset Coronary artery disease Mother Coronary artery disease Father Family Status - Relation Status Age at Mother Father Level of Service:12460 [facility] OFFICE/OUTPATIENT NEW MODERATE MDM 45 MINUTES Reason for Visit and Comments: Atrial Fibrillation [80] - Had EKG at last apt with [facility] in Jun 2024. Denies chest pain and bleeding on Eliquis. Coronary Artery Disease [187] - CABG and MAZE in 2016 Hypertension [344059] Hyperlipidemia [182] COPD [313] - Sees Dr. Oni [facility] POCT EKGOrdered By: Juana Hercules on 06-24-2024 [employer] EMG 1 Extremeityon 4 [facility] NVC 7-8 Nerveson 06-08-2024 [facility] THEOPHYLLINEon 12-30-2022 THEOPHYLLINE 18.0 ug/mL Normal 10.0-20.0 [facility] Comment on above: Performed By: #### T ADALID #### [facility] [address] [address] [address] Karen Lee THEOPHYLLINEon 12-17-2022 THEOPHYLLINE 8.3 ug/mL Critically low 10.0-20.0 [facility] Comment on above: Performed By: #### T ADALID #### [facility] [address] [address] [address] Karen Lee Blood Pressure Cuff Sizeon [...] Activated Vitals Vital Signs Recorded: 29May2022 02:58PM Iwlqiitrnve18.2 F Heart Rate91 Highxhofnof18 Mxtmcpfi345 Egxiwvypt14 Blood Pressure Cuff SizeLarge Height5 ft 7.32 in Cyyqyc606 lb 7 oz BMI Hsdcdiwcws21.15 kg/m2 BSA Calculated2.19 Tobacco Useb) No Falls Screening (Age 18+)a) No falls within the last year O2 Waknqsrsye39, Nasal Cannula Pain Scale7 Physical Exam The [...] May 29 2022 3:24PM EST (Author) Normal [facility] Referral Letteron 022 Referral Letter Mr. Tabor [...] May 29 2022 3:24PM EST (Author) Normal [facility] CT LUNG CANCER SCREENINGon 0 04-26-2022 CT [...] by: ALEYDA DYER Date: 2022-04-26 16:20 Normal [facility] HEMOGLOBINon 04-26-2022 Hemoglobin (Bld) [Mass/Vol] 13.6 g/dL Critically low 14.0-18.0 [facility] Comment on above: Performed By: #### H GB #### [facility] [address] [place] [address] Dr. Karen Lee Progress Noteson 06-04-2018 Protein mass conc [facility]YProgress Notes by Jacquelyn [...] Pt self discharged with last txsession with [facility] CLINICAL MANAGER.Patient is being discharged due to not returning to therapy and/or Plan of Care being .Recommend patient continue with HEP previously instructed on during therapy as appropriate.Patient may be reinstated in therapy upon new evaluation and orders from the physician.Thank You. [facility] Progress Noteson 04-23-2018 Protein mass conc Encounter Department : [facility] REHAB THERAPYProgress Notes by Berlin Valle PTA at 04/23/2018 9:00 AMAuthor: Berlin Valle PTAService: (none)Author Type: Physical Therapy AssistantFiled: 04/23/2018 9:46 AMEncounter Date: 04/23/2018Status: SignedEditor: Berlin Valle PTA (Supervisor Webbing)Physical Therapy Treatment NoteVisit Number: 5Encounter diagnosis:ICD-10-CM1.Cervical giaM54.22.Headache in back of [id number] Medical Diagnosis:SUBJECTIVE: Pt requests today being his [...] t-band- Scap retract x15- B UE ext w95Itzo tucks x15GTB rows 9d83Qalnrv- STM along c-spine paraspinals, UT, and levator [...] in rotation and SB without increase in pain.Board Hammer Operator Goals: LTG to be met by 06/08/18 [...] 10Total Treatment Time: 25 PT Treatment [facility] Progress Noteson 04-21-2018 Protein mass conc Encounter [facility] THERAPYProgress Notes by Berlin Valle PTA at 04/21/2018 9:00 AMAuthor: Berlin Valle PTAService: (none)Author Type: Physical Therapy AssistantFiled: 04/21/2018 9:46 AMEncounter Date: 04/21/2018Status: SignedEditor: Berlin Valle PTA (Supervisor Webbing)Physical Therapy Treatment NoteVisit Number: 4Encounter diagnosis:ICD-10-CM1.Cervical giaM54.22.Headache in back of [id number] Medical Diagnosis: CervicalgiaSUBJECTIVE:Complia nce with HEP: Pt [...] t-band- Scap retract x15- B UE ext x27Noab tucks x15GTB rows 8g26Jycopd- STM along c-spine paraspinals, UT, and levator [...] in rotation and SB without increase in pain.Board 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 Operator Goals: LTG to be met by 06/08/18 [...] Time: 17Total Treatment Time: 32 PT Treatment [facility] Progress Noteson 04-16-2018 Protein mass conc Encounter Department : [facility] REHAB THERAPYProgress Notes by Collette Villanueva PTA at 04/16/2018 9:00 AMAuthor: Collette Villanueva PTAService: (none)Author Type: Physical Therapy AssistantFiled: 04/16/2018 12:11 PMEncounter Date: 04/16/2018Status: SignedEditor: Collette Villanueva PTA (Supervisor Webbing)Physical Therapy Treatment NoteVisit Number: 3Encounter diagnosis:ICD-10-CM1.Cervical giaM54.22.Headache in back of [id number] Medical Diagnosis: CervicalgiaSUBJECTIVE:Complia nce with HEP: Patient [...] t-band- Scap retract x15- B UE ext y55Yzlc tucks x15GTB rows 4f35Gzkdsb- STM along c-spine paraspinals, UT, and levator [...] in rotation and SB without increase in pain.Board 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 Operator Goals: LTG to be met by 06/08/18 [...] Time: 28Total Treatment Time: 43 PT Treatment [facility] Progress Noteson 04-10-2018 Protein mass conc Encounter Department : [facility] REHAB THERAPYProgress Notes by Berlin Valle PTA at 04/10/2018 9:00 AMAuthor: Berlin Valle PTAService: (none)Author Type: Physical Therapy AssistantFiled: 04/10/2018 10:21 AMEncounter Date: 04/10/2018Status: SignedEditor: Berlin Valle PTA (Supervisor Webbing)Physical Therapy Treatment NoteVisit Number: 2Encounter diagnosis:ICD-10-CM1.Cervical giaM54.22.Headache in back of [id number] Medical Diagnosis: CervicalgiaSUBJECTIVE:Complia nce with HEP: Pt [...] UT stretch 3x 30'Chin tucks x15GTB rows 6d86UML: chin tuck, UT and LS stretch, scap [...] in rotation and SB without increase in pain.Board 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 Operator Goals: LTG to be met by 06/08/18 [...] 30Total Treatment Time: 45 PT Treatment [facility] Progress Noteson 04-08-2018 Protein mass conc Encounter Department : [facility] REHAB THERAPYProgress Notes by Jacquelyn Rivera PT at 04/08/2018 1:45 PMAuthor: Jacuqelyn Rivera PTService: (none)Author Type: Physical TherapistFiled: 04/08/2018 6:47 PMEncounter Date: 04/08/2018Status: SignedEditor: Jacquelyn Rivera PT (Physical Therapist)Physical Therapy EvaluationEncounter diagnosis:ICD-10-CM1.Cervical giaM54.22.Headache in back of [id number] provider: Mellisa Clarke,*Primary Medical Diagnosis: CervicalgiaPlan of [...] Home: 15Prior Level of Functioning: Level of Anton: Modified IndependentCurrent Level of Functioning: Outcome Score: NDI (26 raw score NDI, 52% disability) Functional deficits: reports no functional deficits, able to do everything just withincreased pain. Level of Anton: Modified IndependentSleep Status/Sleep Hygiene: Preferred Sleep Position: [...] codes)G8978 Mobility Current Status; Severity: CK 40-59% kssgmezdT6142 Mobility Goal Status; Severity: CI 1-19% impairedOutcome measure(s)/Test(s) used/Result(s): 52% disability on NDI.Clinical Judgment: Moderate to severe impairement, decreased neck ROM and strength, tenderness totrigger points moderateNew Category to [place]-Hd-Cecf only?:NoEvaluation Breakdown DescriptionPatient HistoryComorbiditiesEnvironme ntal/Personal factorsLearning/CognitionDome stic [...] in rotation and SB without increase in pain.Board Hammer Operator Goals: LTG to be met by 06/08/18 [...] Time: 60Time in: 1:44Time Out: 2:45 PT [facility] Vital Signs Date Time Vital Sign Value Performing Clinician Facility 04-15-2025 09:22-0400 Body height 177.8 cm Tree Arkadin DO Work Phone: [facility] 04-15-2025 09:22-0400 Body mass index (BMI) [Ratio] 35.87 kg/m2 Tree Arkadin DO Work Phone: [facility] 04-15-2025 09:22-0400 Body weight 113.4 kg Tree Arkadin DO Work Phone: [facility] 2025 09:00-0400 Body height 177.8 cm Tree Arkadin DO Work Phone: [facility] 2025 09:00-0400 Body mass index (BMI) [Ratio] 35.87 kg/m2 Tree Arkadin DO Work Phone: [facility] 2025 09:00-0400 Body weight 113.4 kg Tree Arkadin DO Work Phone: [facility] 12-27-2024 10:42-0400 Body height 177.8 cm Linsey LI Work Phone: [facility] 12-27-2024 10:42-0400 Body mass index (BMI) [Ratio] 35.87 kg/m2 Linsey LI Work Phone: [facility] 12-27-2024 10:42-0400 Body weight 113.4 kg Linsey LI Work Phone: [facility] 04-21-2025 10:42-0400 Diastolic blood pressure 82 mm[Hg] Linsey Hall PA Work Phone: [facility] 12-27-2024 10:42-0400 Heart rate 75 /min Linsey Hall PA Work Phone: [facility] 12-27-2024 10:42-0400 Respiratory rate 16 /min Linsey Hall PA Work Phone: [facility] 12-27-2024 10:42-0400 SaO2% (BldA) [Mass fraction] 94 % Linsey Hall PA Work Phone: [facility] 12-27-2024 10:42-0400 Systolic blood pressure 142 mm[Hg] Linsey Hall PA Work Phone: [facility] 06-24-2024 13:52-0400 Body height 172.7 cm Gillian Taylor MD Work Phone: [facility] 06-24-2024 13:52-0400 Body mass index (BMI) [Ratio] 37.26 kg/m2 Gillian Taylor MD Work Phone: [facility] 06-24-2024 13:52-0400 Body weight 111.13 kg Gillian Taylor MD Work Phone: [facility] 06-24-2024 13:52-0400 Diastolic blood pressure 62 mm[Hg] Gillian Taylor MD Work Phone: [facility] 06-24-2024 13:52-0400 Heart rate 74 /min Gillian Taylor MD Work Phone: [facility] 06-24-2024 13:52-0400 SaO2% (BldA) [Mass fraction] 94 % Gillian Taylor MD Work Phone: [facility] 06-24-2024 13:52-0400 Systolic blood pressure 122 mm[Hg] Gillian Taylor MD Work Phone: [facility] 06-09-2024 11:17-0400 Body height 172.7 cm Linsey Hill PA Work Phone: [facility] 06-09-2024 11:17-0400 Body mass index (BMI) [Ratio] 38.01 kg/m2 Linsey Hall PA Work Phone: [facility] 06-09-2024 11:17-0400 Body weight 113.4 kg Linsey Hall PA Work Phone: [facility] 06-09-2024 11:17-0400 Diastolic blood pressure 84 mm[Hg] Linsey Hall PA Work Phone: [facility] 06-09-2024 11:17-0400 Heart rate 78 /min Linsey Hall PA Work Phone: [facility] 06-09-2024 11:17-0400 Respiratory rate 16 /min Linsey Hall PA Work Phone: [facility] 06-09-2024 11:17-0400 SaO2% (BldA) [Mass fraction] 93 % Linsey Hall PA Work Phone: [facility] 06-09-2024 11:17-0400 Systolic blood pressure 132 mm[Hg] Linsey Hall PA Work Phone: [facility] 05-29-2022 14:58-0400 Body height 170.99 cm [...] Date Encounter Type Care Provider Facility Start: 04-21-2025 ambulatory [facility] Start: 04-21-2025 End: 04-21-2025 ambulatory [facility] Start: 04-15-2025 End: 04-15-2025 Bamboo flowsheet Tree Krishnan DO Work Phone: [facility] Start: 04-15-2025 End: 04-15-2025 Bamboo flowsheet Tree Krishnan DO Work Phone: [facility] Start: 04-15-2025 End: 04-15-2025 Office outpatient visit 25 minutes Tree Krishnan DO Work Phone: [facility] Comment on above: Otorrhea of right ea r (Primary Dx); Dysfunction of right eustachian tube; Chronic anticoagulation Start: 04-15-2025 End: 04-15-2025 ambulatory TREE KRISHNAN Not Available Start: 04-14-2025 End: 04-14-2025 ambulatory [facility] Start: 2025 End: 2025 Bamboo flowsheet Tree Krishnan DO Work Phone: [facility] Start: 2025 End: 2025 Bamboo flowsheet Tree Krishnan DO Work Phone: [facility] Start: 2025 End: 2025 Office outpatient visit 15 minutes Tree Krishnan DO Work Phone: [facility] Comment on above: Dysfunction of right eustachian tube (Primary Dx); Otorrhea of right ear; Chronic anticoagulation Start: 2025 End: 2025 ambulatory TREE WELLSROCIO Not Available Start: 12-31-2024 End: 12-31-2024 ambulatory [facility] Start: 12-27-2024 End: 12-27-2024 Bamboo flowsheet Barbara Tim PA Work Phone: [facility] Start: 12-27-2024 End: 12-27-2024 Bamboo flowsheet Barbara Tim PA Work Phone: [facility] Start: 12-27-2024 End: 12-27-2024 Office outpatient visit 15 minutes Linsey Hall PA Work Phone: [facility] Comment on above: [...] End: 11-25-2024 Telephone encounter [facility]i [facility]uro [facility] Comment on above: transfering care Start: 11-09-2024 End: 11-12-2024 Refill Keron Arreguin PA-C Work Phone: [facility] Comment on above: Med Refill Start: 09-07-2024 End: 09-09-2024 Refill Linsey LI Work Phone: [facility] Comment on above: DDD (degenerative di sc disease), lumbar; Lumbosacral radiculopathy Start: 08-16-2024 End: 08-16-2024 ambulatory [facility] Start: 07-29-2024 End: 08-03-2024 Refill Pablo Zaragoza APRN-NOVELTY MAKER Work Phone: [facility] Comment on above: Med Refill Start: 06-24-2024 End: 06-24-2024 Office outpatient visit 25 minutes Gillian Taylor MD Work Phone: [facility] Comment on above: Coronary artery dise ase involving coronary bypass graft of eek heart without angina pectoris (Primary Dx); Paroxysmal atrial fibrillation ([facility]); Primary hypertension; Mixed hyperlipidemia; Left ventricular dysfunction Start: 06-24-2024 End: 06-24-2024 ambulatory GILLIAN TAYLOR [facility] Start: 06-23-2024 End: 06-23-2024 Telephone encounter Juana Hercules CMA [facility] Start: 06-09-2024 End: 06-09-2024 Office outpatient visit 15 minutes Linsey LI Work Phone: [facility] Comment on above: 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 with discogenic back pain and lower extremity pain (Primary Dx); Neck pain; Chronic daily headache; Tremor Start: 06-09-2024 End: 06-09-2024 ambulatory LINSEY HALL Not Available Start: 06-08-2024 End: 06-08-2024 Bamboo flowsheet A[facility]da Fisher MD [facility] Start: 06-08-2024 End: 06-08-2024 Bamboo flowsheet Aleyda Fisher MD Work Phone: [facility] Start: 06-08-2024 End: 06-08-2024 Patient encounter procedure Aleyda Fisher MD Work Phone: [facility] Comment on above: Carpal tunnel syndro me of left wrist (Primary Dx) Start: 06-08-2024 End: 06-08-2024 ambulatory ALEYDA FISHER Not Available Start: 05-21-2024 End: 05-21-2024 Refill Radha Griffin RN [facility] Comment on above: Med Refill Start: 05-17-2024 End: 05-17-2024 ambulatory EMELY CANTU [facility] Comment on above: DDD (degenerative di sc disease), lumbar; Lumbosacral radiculopathy Start: 05-14-2024 End: 05-14-2024 Telephone encounter Juana Hercules CMA [facility] Start: 04-30-2024 End: 04-30-2024 Telephone encounter Ashlee Lim RN [facility] Start: 02-18-2024 End: 02-19-2024 Refill Neisha Weathers RN [facility] Comment on above: Med Refill Start: 01-24-2024 End: 01-28-2024 Refill Elise Borjas MD Work Phone: [facility] Comment on above: Med Refill Start: 12-30-2022 End: 12-31-2022 ambulatory DARNELL ALICEA . Facility:[facility] Start: 12-17-2022 End: 12-18-2022 ambulatory DARNELL ALICEA . Facility:[facility] Start: 06-17-2022 AUDIT Referring Prov ider Unknown [facility] Work Phone: Start: 05-29-2022 Office outpatient ne w 45 minutes Referring Provider Unknown [facility] Work Phone: Start: 05-29-[address] Popeye Peña [facility]ity[facility] Start: 05-21-2022 End: 08-14-2022 ambulatory [facility] Facility: Start: 04-26-2022 End: 04-27-2022 ambulatory [facility] Facility: Start: 04-23-2018 End: 04-23-2018 Patient encounter [facility] Start: 04-21-2018 End: 04-21-2018 Patient encounter [place] [facility] Start: 04-16-2018 End: 04-16-2018 Patient encounter COLLETTE VILLANUEVA [facility] Start: 04-10-2018 End: 04-10-2018 Patient encounter [place] [facility] Start: 04-08-2018 End: 04-08-2018 Patient encounter MELLISA CLARKE [facility] Patient encounter status Referri ng Provider Unknown [facility] Work Phone: Procedures Date Procedure Procedure Detail Performing Clinician Start: 04-14-2025 Follow-up visit Follow-up BENNY STOREY Start: 06-24-2024 Ecg routine ecg w/le ast [...] bypass grafting Hx of CABG Pablo Zaragoza [employer] INS[employer]EL[employer] Work Phone: History of coronary artery bypass grafting Hx of CABG Keron Arrgeuin PA-C Work Phone: Prosthetic arthropla sty of shoulder Referring Provider Unknown Total replacement of hip Ref erring Provider Unknown Plan of Treatment Date Care Activity Detail Author Start: 08-13-2033 DTaP,Tdap and Td Vaccines (2 - Td or Tdap) DTaP,Tdap and Td Vaccines (2 - Td or Tdap) [facility] Start: 10-17-2025 End: 10-17-2025 Patient encounter procedure 10/17/2025 10:15 AM EST Office Visit [facility] [address] [place] [phone] Tree Krishnan, DO [address] [place] [address] [facility] Start: 06-24-2025 Adult BMI Screening Adult BMI Screening [facility] Start: 06-24-2025 Tobacco Screening Tobacco Screening [facility] Start: 05-16-2025 End: 05-16-2025 Patient encounter procedure 05/16/2025 10:40 AM EDT Office Visit [facility] [address] [place] [address] Linsey Hall PA [address] [place], [place] [id number] [facility] Start: 05-09-2025 Influenza vaccination [facility] Start: 04-15-2025 End: 04-15-2025 Patient encounter procedure [facility] Comment on above: Arrived Start: 2025 End: 2025 Patient encounter procedure 2025 9:15 AM EDT Office Visit [facility] [address] [place] [phone] Tree Krishnan, DO [address] [place] [address] Arrived [facility] Comment on above: Arrived Start: 12-23-2024 End: 12-23-2024 Patient encounter procedure 12/23/2024 10:40 AM EDT Office Visit [facility]ET[facility] SANTIAGO [address] [place] [address] Linsey Hall PA [address] [place] [address] [facility] SANT[facility]AG[facility] Start: 12-21-2024 End: 12-21-2024 Patient encounter procedure 12/21/2024 10:40 AM EDT Office Visit [facility] [address] [place] [phone] Linsey Hall PA [address] [place] [address] [facility] [address] Start: 07-29-2024 Adult BMI Screening Adult BMI Screening [facility] Start: 07-29-2024 Tobacco Screening Tobacco Screening [facility] Start: 06-24-2024 End: 06-24-2025 CT Chest WO and CT angiogram Coronary arteries W contrast IV CT angiogram chest Imaging Routine Coronary artery disease involving coronary bypass graft of eek heart without angina pectoris Expected: 06/24/2024, Expires: 06/24/2025 [facility] Comment on above: Expected: 06/24/2024, Expires: Start: 06-24-2024 End: 06-24-2025 Echo complete W/O contrast Echo complete W/O contrast Echocardiography Routine Coronary artery disease involving coronary bypass graft of eek heart without angina pectoris Expected: 06/24/2024, Expires: [facility] Comment on above: Expected: 06/24/2024, Expires: Start: 06-24-2024 End: 06-24-2024 Patient encounter procedure 06/24/2024 2:00 PM EDT Office Visit [facility] [address] [place] [address] Gillian Taylor MD [address] [place] [address] [facility] Start: 06-09-2024 End: 06-09-2024 Patient encounter procedure 06/09/2024 11:20 AM EDT Office Visit [facility] [address] [place] [address] Linsey Hall PA [address] [place] [address] [facility] Start: 06-08-2024 End: 06-08-2024 Patient encounter procedure [facility] Comment on above: Arrived Start: 05-17-2024 End: 05-17-2024 Professional / ancillary services management 05/17/2024 8:30 AM EDT Ancillary Procedure [facility] [address] [place] [phone] Emely Cantu MD [address] [place] [address] [facility] Start: 05-09-2024 Influenza vaccination [facility] Start: 2010 Administration of varicella zoster vaccine Zoster (Shingles) Vaccine (1 of 2) [facility] Start: 2010 Pneumococcal Vaccine: 65+ Years (1 of 1 - PCV) Pneumococcal Vaccine: 65+ Years (1 of 1 - PCV) [facility] Start: 1979 DTaP,Tdap and Td Vaccines (1 - Tdap) DTaP,Tdap and Td Vaccines (1 - Tdap) [facility] Start: 1978 Adult BMI Follow Up Plan Adult BMI Follow Up Plan [facility] Start: 1972 Depression Screening Depression Screening [facility] Start: 1960 Screening for malignant neoplasm of colon [facility] End: 06-24-2025 CBC panel - Blood by Automated count CBC Lab Routine Paroxysmal atrial fibrillation ([facility]) 1 Occurrences starting 06/24/2024 until 06/24/2025 [facility] [employer] Comment on above: 1 Occurrences starting 06/24/2024 until 06/24/2025 End: 06-24-2025 Comprehensive metabolic 2000 panel - Serum or Plasma CMP Lab Routine Primary hypertension 1 Occurrences starting 06/24/2024 until 06/24/2025 [facility] Comment on above: 1 Occurrences starting 06/24/2024 until 06/24/2025 End: 06-24-2025 Lipid panel Lipid panel Lab Routine Mixed hyperlipidemia 1 Occurrences starting 06/24/2024 until 06/24/2025 [facility] Work Phone: Comment on above: 1 Occurrences starting 06/24/2024 until 06/24/2025 Immunizations Immunization Date Immunization Notes Care Provider [facility] 08-13-2023 Influenza, injectabl e, Madin [place] Canine Kidney, preservative free, quadrivalent Tree Krishnan DO Work Phone: [facility] 08-13-2023 tetanus toxoid, reduced diphtheria toxoid, and acellular pertussis vaccine, adsorbed Tree Krishnan DO Work Phone: [facility] 08-13-2023 influenza virus vaccine, unspecified formulation Yuri Chapa MA [facility] 05-23-2021 influenza, high dose seasonal, preservative-free Yuri Chapa MA [facility] 05-23-2021 influenza virus vaccine, unspecified formulation Elise Borjas MD Work Phone: [facility] [employer] [facility] 10-25-2020 Pfizer Purple Cap SARS-CoV-2 Vaccination Yuri Chapa MA [facility] 09-20-2020 Pfizer Purple Cap SARS-CoV-2 Vaccination Yuri Chapa MA [facility] Payers Date Payer Category Payer Medicare (Managed Care) [employer] [id number] 2019 Medicare [id number] 2019 Medicare O [facility] MEDICARE [id number] 1960 Unknown [id number] [id number]. 2.356 1960 Unknown [id number] [id number]. 2.593 1960 Unknown [id number] [id number]. 2.593 1960 Unknown [id number] [id number]. 2.593 1960 Unknown [id number] [id number]. 2.593 1960 Unknown [id number] [id number]. 2.1286 1960 Unknown [id number] [id number]. 2.1286 1960 Unknown [id number] [id number]. 2.1259 1960 Unknown [id number] [id number]. 2.9 1960 Unknown [id number] [id number]. 2.9 1960 Unknown [id number] [id number]. 2.9 1960 Unknown [id number] [id number]. 2.1259 1959 Medicare [id number] Unknown Social History Date Type Detail Facility Start: 03-15-2024 End: 04-15-2025 Social alcohol use Social alcohol use [facility] Start: 05-20-2022 End: 03-15-2024 Tobacco smoking status AZIS Ex-smoker [facility] Start: 09-08-1974 End: 09-08-2009 History of tobacco use Current smoker [facility] Start: 09-08-1974 End: 09-08-2009 History of tobacco use Cigarette Smoker [facility] Start: 05-20-2022 End: 03-15-2024 Tobacco use and exposure Smokeless tobacco non-user [facility] Start: 03-15-2024 End: 04-15-2025 Alcoholic beverage intake Lifetime non-drinker (finding) [facility] Start: 03-15-2024 End: 04-15-2025 Tobacco use panel [facility] Start: 02-13-2023 Alcohol Comment ocassionally [facility] Start: 1960 Sex assigned at Male [facility] Start: 02-21-2023 Gender identity Identifies as male gender (finding) [facility] Start: 07-29-2023 End: 06-24-2024 Alcoholic beverage intake Ex-drinker (finding) [facility] Within the past 12 months we worried whether our food would run out before we got money to buy more. Never True [facility] Start: 05-20-2022 Alcohol Comment ocassional [facility] Start: 1960 Sex assigned at Not on file P [facility] Start: 03-22-2022 Sex Male (finding) [facility] Clinical Notes 04-30-2024 to 04-15-2025 Tree Krishnan, - 04/15/2025 9:30 AM Aj Krishnan, - 2025 9:15 AM GUILLERMO Forbes - 12/27/2024 10:20 AM EDTTelephone Encounter - Leanne ManciaYOLANDA - 12/20/2024 4:44 PM EDT Note Date & Type Note Facility 04-15-2025 History of Present illness Narrative Subjective Patient ID: Giancarlo Tabor is a 65 y.o. male who presents for Ear Problem (3 week coco ear drainage) HPI This patient presents for recheck of his right-sided tympanostomy tube. Recent development of decreased hearing and drainage. Has been using antibiotic ear drops with good results. Continues to use an oxygen concentrator. Continues to use a concentrator for breathing Review of Systems Describes some shortness of breath. Denies any difficulties with his ear. Describes resolution of decreased hearing on the right side along with otorrhea. Objective ENT Physical Exam General Examination: General overview: Normal, age-appropriate, no evidence of distress Head: Normocephalic, atraumatic Eyes: Pupils are equally round and reactive to light and accommodation, extraocular muscles are intact Ears: External ear architecture within normal limits, right ear is examined with tube in place and no drainage Nose: External nose unremarkable, nares patent, septum intact, no evidence of congestion. Oral cavity: Mucosa moist, no evidence of ulcer, mass, or lesion Throat: Clear Neck/thyroid: Neck supple, full range of motion, no cervical lymphadenopathy, no evidence of thyromegaly Lymph nodes: No cervical lymphadenopathy Skin: Warm and dry, no evidence of suspicious lesions, no rash Heart: No jugular venous distention, point of maximal impulse normal Lungs: Decreased air movement, no audible wheezing, no shortness of breath Chest: Normal shape and expansion Abdomen: Normal, soft, nontender, nondistended Musculoskeletal: Cervical spine normal, full range of motion Extremities: No clubbing, cyanosis, or edema Peripheral pulses: 2+ radial, 2+ carotid Neurologic: Alert and oriented, cranial nerves 2-12 are grossly intact Psych: Alert and oriented, normal affect, no evidence of distress Assessment/Plan Diagnoses and all orders for this visit: Otorrhea of right ear Comments: Resolved, recheck in 6 months Dysfunction of right eustachian tube Comments: Tympanostomy tube remains in place and patent. Recheck in 6 months Chronic anticoagulation Comments: Continue Eliquis, follow up with family physician and subspecialist If his problem recurs, would recommend removal of the tympanostomy tube with replacement documented in this encounter [facility] 04-14-2025 Note [place] [facility] Note Reason for cardiology visit: Follow-up after stress test HPI: 04/14/2025 Patient is here today for follow-up visit. He reports that he has been doing well. He denies any chest discomfort at rest or with exertion. He has chronic shortness of breath with activities due to COPD and he is on oxygen at 3 L/min. He denies orthopnea or paroxysmal nocturnal dyspnea or palpitation or dizziness or legs edema. 12/31/2024 Patient is here today for follow-up [...] the night 08/16/2024 Elise Tabor is a 65 y.o. male with history of coronary artery disease and coronary artery bypass surgery and maze procedure, paroxysmal atrial fibrillation, s/p ablation in [place], thoracic aortic aneurysm, left ventricle dysfunction, hypertension, hyperlipidemia COPD, prior tobacco and alcohol abuse He used to follow with [facility] cardiology. He states that overall [...] has never used smokeless tobacco. He reports current alcohol use. He reports that he does not use drugs. Family History Family History Problem Relation Name [...] 1 tablet (80 mg) by mouth at bedtime., Disp: 90 tablet, Rfl: 3 azithromycin (Zithromax) 250 mg tablet, Take 250 mg by mouth in the morning., Disp: , Rfl: cholecalciferol, vitamin D3, 50 mcg (2,000 unit) capsule, 1 capsule., Disp: , Rfl: dapagliflozin propanediol (Farxiga) 10 mg, Take 1 tablet (10 mg) by mouth once daily as directed., Disp: 90 tablet, Rfl: 3 ipratropium-albuteroL (Duo-Neb) 0.5-2.5 mg/3 mL nebulizer solution, INHALE 1 vial via NEBULIZER FOUR TIMES DAILY NEEDED, Disp: , Rfl: lisinopril 5 mg tablet, Take 1 tablet (5 mg) by mouth once daily as directed., Disp: 90 tablet, Rfl: 3 meloxicam (Mobic) 15 mg tablet, Take 15 [...] NO RELIEF CALL 911), Disp: , Rfl: pantoprazole (ProtoNix) 40 mg EC tablet, Take 40 mg by mouth in the morning., Disp: , Rfl: predniSONE (Deltasone) 10 mg tablet, Take 10 mg by mouth in the morning., Disp: , Rfl: pregabalin (Lyrica) 150 mg capsule, Take 150 mg by mouth 3 times a day., Disp: , Rfl: roflumilast (Daliresp) 500 mcg tablet, Take 500 mcg by mouth in the morning., Disp: , Rfl: sodium chloride 0.9 % nebulizer solution, Take 3 mL by nebulization if needed., Disp: , Rfl: spironolactone (Aldactone) 25 mg tablet, Take 1 tablet (25 mg) by mouth in the morning., Disp: 90 tablet, Rfl: 3 SUMAtriptan (Imitrex) 100 mg tablet, Take 100 mg by mouth 1 (one) time if needed., Disp: , Rfl: theop (more content not included)... [facility] 2025 History of Present illness Narrative Subjective Patient ID: Giancarlo Tabor is a 65 y.o. male who presents for Ear Tube Check (Right ear pain) HPI This patient presents for recheck of his right-sided tympanostomy tube. Recent development of decreased hearing and drainage. Started on oral antibiotic and antibiotic eardrops. Continues to use an oxygen concentrator. Continues to use a concentrator for breathing Review of Systems Describes some shortness of breath. Denies any difficulties with his ear. Difficulties with decreased hearing on the right side along with otorrhea. Objective ENT Physical Exam General Examination: General overview: Normal, age-appropriate, no evidence of distress Head: Normocephalic, atraumatic Eyes: Pupils are equally round and reactive to light and accommodation, extraocular muscles are intact Ears: External ear architecture within normal limits, right ear is examined under binocular microscopy. Copious debris is removed using suction. Tube is in place. Mild drainage. Nose: External nose unremarkable, nares patent, septum intact, no evidence of congestion. Oral cavity: Mucosa moist, no evidence of ulcer, mass, or lesion Throat: Clear Neck/thyroid: Neck supple, full range of motion, no cervical lymphadenopathy, no evidence of thyromegaly Lymph nodes: No cervical lymphadenopathy Skin: Warm and dry, no evidence of suspicious lesions, no rash Heart: No jugular venous distention, point of maximal impulse normal Lungs: Decreased air movement, no audible wheezing, no shortness of breath Chest: Normal shape and expansion Abdomen: Normal, soft, nontender, nondistended Musculoskeletal: Cervical spine normal, full range of motion Extremities: No clubbing, cyanosis, or edema Peripheral pulses: 2+ radial, 2+ carotid Neurologic: Alert and oriented, cranial nerves 2-12 are grossly intact Psych: Alert and oriented, normal affect, no evidence of distress Assessment/Plan Diagnoses and all orders for this visit: Dysfunction of right eustachian tube Comments: Tympanostomy tube on the right remains in place and appears to be patent after cleaning Otorrhea of right ear Comments: We will start this patient on antibiotic ear drops as well as oral antibiotic Orders: - levoFLOXacin (Levaquin) 500 MG tablet; Take 1 tablet (500 mg) by mouth Daily for 10 days - ofloxacin (Floxin) 0.3 % otic solution; Administer 5 drops into the right ear in the morning and 5 drops before bedtime. Do all this for 10 days. Chronic anticoagulation Comments: Continue Eliquis, follow up with family physician and subspecialist documented in this encounter [facility] 12-31-2024 Note [place] [facility] Note Reason for cardiology [...] procedure, paroxysmal atrial fibrillation, s/p ablation in [place], thoracic aortic aneurysm, left ventricle dysfunction, hypertension, hyperlipidemia COPD, prior tobacco and alcohol abuse He used to follow with [facility] cardiology. He states that overall [...] developed, in no (more content not included)... [facility] 12-27-2024 History of Present illness Narrative Subjective Elise Tabor is a 64 y.o. year old male Chief Complaint Patient presents with Back Pain Past Medical History: Diagnosis Date Anemia Atrial fibrillation ([facility]) Celiac disease ([facility]) 03/04/2019 Cervicalgia 04/08/2018 Chronic obstructive lung disease ([facility]) 01/22/2018 Chronic obstructive pulmonary disease (COPD) ([facility] Coronary artery disease ([facility] Emphysema of lung ([facility]) H/O hernia repair Headache in back of head 04/08/2018 Peripheral polyneuropathy 06/27/2023 Pneumonia Rheumatoid arthritis ([facility]) Sinus tachycardia 01/22/2018 Past Surgical History: Procedure [...] triceps, wrist extensors, wrist extensors, wrist flexor, consolidation accountant strength 5/5. LUE Strength deltoid, biceps, triceps, wrist extensors, wrist extensors, wrist flexor, consolidation accountant strength 5/5. RLE Strength illopsoas, quadriceps, tibialis [...] or worsening symptoms documented in this encounter [facility] 12-20-2024 Telephone encounter Note Patient is in need of refill, appt had to be rescheduled due to provider being out. Please send to [facility] [place] [facility] 12-20-2024 Miscellaneous Notes Patient is in need of refill, appt had to be rescheduled due to provider being out. Please send to [facility] in [place] documented in this encounter [facility] 11-25-2024 Miscellaneous Notes Pt calls to let us know he is switching residential collections to a group in [place] because he does not like seeing a different doctor every time he comes here. Explained to him that we do try to keep pt's with same doc but it does not always work out that way. Pt understood but has already seen the the other group. documented in this encounter [facility] 11-25-2024 Telephone encounter Note Pt calls to let us know he is switching residential collections to a group in [place] because he does not like seeing a different doctor every time he comes here. Explained to him that we do try to keep pt's with same doc but it does not always work out that way. Pt understood but has already seen the the other group. [facility] 09-09-2024 Telephone encounter Note 06/09/2024 Continue Lyrica 150mg PO TID for neuropathic pain [facility] reviewed. Last filled 05/17/2024 for 90 day supply. Due 08/15/2024 [facility] 09-09-2024 Miscellaneous Notes 06/09/2024 Continue Lyrica 150mg PO TID for neuropathic pain [facility] reviewed. Last filled 05/17/2024 for 90 day supply. Due 08/15/2024 documented in this encounter [facility] 08-16-2024 Note [place] [facility] Note Reason for cardiology consult: Establish new residential collections, CAD, congestive heart failure, ascending aortic aneurysm Chief Complaint: Dyspnea on exertion HPI: Elise Tabor is a 64 y.o. male with history of coronary artery disease and coronary artery bypass surgery and maze procedure, paroxysmal atrial fibrillation, s/p ablation in [place], thoracic aortic aneurysm, left ventricle dysfunction, hypertension, hyperlipidemia COPD, prior tobacco and alcohol abuse He used to follow with [facility] cardiology. He states that overall [...] or gallops. RESPIR (more content not included)... [facility] 07-29-2024 Miscellaneous Notes [facility] 06/24/24 documented in this encounter [employer] 07-29-2024 Telephone encounter Note [facility] 06/24/24 [facility] 06-24-2024 History of Present illness Narrative Elise Tabor Date of visit: 06/24/2024 Date of : 1960 Age: 64 y.o. Patient Active Problem List Diagnosis Coronary artery disease involving coronary bypass graft of eek heart without angina pectoris Paroxysmal atrial fibrillation (CMS-HCC) Thoracic aortic aneurysm without rupture ([facility]) Hx of CABG History of maze procedure [...] 65 mg by mouth daily with breakfast. jjewntdmdgq-kqscrasko-gisyxsud (TRELEGY ELLIPTA) 200-62.5-25 mcg blister with device [...] atrial fibrillation despite the reported ablation in [place], continue on anticoagulation. We discussed this again [...] History: Diagnosis Date Arthritis Ascending aortic aneurysm (CMS-HCC) Atrial fibrillation (CMS-HCC) Celiac disease COPD (chronic obstructive pulmonary disease) (CMS-HCC) Coronary artery disease with history of coronary [...] artery disease involving coronary bypass graft of eek heart without angina pectoris - POCT EKG - CT angiogram chest; Future - Echo complete W/O contrast; Future 2. Paroxysmal atrial fibrillation (CMS-HCC) - CBC; Future 3. Primary hypertension - CMP; Future 4. Mixed hyperlipidemia - Lipid panel; Future 5. Left ventricular dysfunction 1. ASCVD without angina --history of CABG with Maze --[facility] to the LAD 2015 in [place] 2. Cardiomyopathy -ischemic versus related to alcohol [...] APRN-CHAO Referring Physician: Kacie Del Real MD [address] [place] [address] documented in this encounter [employer] 06-24-2024 Instructions Gillian Taylor MD - 06/24/2024 2:00 PM EDT Laboratory studies CTA of the aorta Echocardiogram [facility] 06-23-2024 Miscellaneous Notes Called patient to remind them to bring their most current copy of their medication list with them to their appt. Patient verbalizes understanding. documented [facility] this [facility] 06-23-2024 Telephone encounter Note Called patient to remind them to bring their most current copy of their medication list with them to their appt. Patient verbalizes understanding. [facility] 06-09-2024 History of Present illness Narrative Subjective Elise Tabor is a 64 y.o. year old male Chief Complaint Patient presents with Back Pain Neck Pain Tremors Past Medical History: Diagnosis Date Anemia Atrial fibrillation ([facility]) Celiac disease ([facility]) 03/04/2019 Cervicalgia 04/08/2018 Chronic obstructive lung disease ([facility]) 01/22/2018 Chronic obstructive pulmonary disease (COPD) ([facility]) Coronary artery disease ([facility]) Emphysema of lung ([facility]) H/O hernia repair Headache in back of head 04/08/2018 Peripheral polyneuropathy 06/27/2023 Pneumonia Rheumatoid arthritis ([facility]) Sinus tachycardia 01/22/2018 Past Surgical History: Procedure [...] handles -admits hand weakness -some trouble with consolidation accountant ROS Review of Systems Constitutional: Negative for [...] triceps, wrist extensors, wrist extensors, wrist flexor, consolidation accountant strength 5/5. LUE Strength deltoid, biceps, triceps, wrist extensors, wrist extensors, wrist flexor, consolidation accountant strength 5/5. RLE Strength illopsoas, quadriceps, tibialis [...] or worsening symptoms documented in this encounter [facility] 06-08-2024 History of Present illness Narrative Images from the original note were not included. Reason for Appointment: EMG Patient: Elise Tabor : 1960 EMG Computer: Smarterphone Referring Physician: Roland Bill PA-C EMG: WALTER meter tester primary: Vera Zuñiga CMA Office Location: [place] Reason for EMG: c/o pain and paresthesia in the arm from the shoulder down. No Hx of DM, takes Eliquis and ASA Comments: Procedure explained to the patient who expressed understanding. documented in this encounter [facility] 05-14-2024 Miscellaneous Notes Phoned pt to advise that appt scheduled for 05/17/2024 is the date that his EM will be sent out and is NOT an actual appt. Verbalized understanding. documented in this encounter [facility] 05-14-2024 Telephone encounter Note Phoned pt to advise that appt scheduled for 05/17/2024 is the date that his EM will be sent out and is NOT an actual appt. Verbalized understanding. 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[employer], Patient called and said that he has not been in a-fib since 2018 HX Coronary artery disease s/p CABG x 1 ([facility]) 2016 in [place] Paroxysmal atrial fibrillation (diagnosed in 1998); Maze at time of open heart surgery Thoracic aortic aneurysm, 47 mm 05/2022 Hypertension Frequent PVCs, 6% burden on most recent monitoring 06/2023 History of NSVT Chronic hypoxic respiratory failure COPD Patient said that Eliquis is not affordable for him and would like to know if since he has not been in a-fib [facility] 2018, is there a chance he would be able to dc Eliquis at some point. Please advise. Thank you! 3 boxes of Eliquis in sample cabinet for patient chicken picker. This is something we would need [...] patient to call us back to review ENG[employer]ER [employer]'s response. 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 Please advise. Thank you! 3 boxes of Eliquis in sample cabinet for [facility] chicken picker. [facility] Note This is something [...] further. Would continue Eliquis in the meantime. [facility] Telephone encounter Note Amml asking patient to call us back to review ENGINEER [employer]OY[employer]'s response. [facility] Diagnosis Carpal tunnel syndrome of left wrist- Primary [facility] Diagnosis Degeneration of intervertebral disc of lumbar region with discogenic back pain and lower extremity pain- Primary Neck pain Cervicalgia Chronic daily headache Headache Tremor Abnormal involuntary movements documented in this encounter [facility]* Diagnosis DDD (degenerative disc disease), lumbar Degeneration of lumbar or lumbosacral intervertebral disc Lumbosacral radiculopathy Thoracic or lumbosacral neuritis or radiculitis, unspecified documented in this encounter [facility]* Diagnosis DDD (degenerative disc disease), lumbar Degeneration of lumbar or lumbosacral intervertebral disc Lumbosacral radiculopathy Thoracic or lumbosacral neuritis or radiculitis, unspecified documented in this encounter [facility]* Diagnosis Coronary artery disease involving coronary bypass graft of eek heart without angina pectoris Hx of CABG Postsurgical aortocoronary bypass status Paroxysmal atrial fibrillation (CMS-HCC) Atrial fibrillation Aneurysm of ascending aorta without rupture (CMS-HCC) History of maze procedure [facility] Diagnosis Coronary artery disease involving coronary bypass graft of eek heart without angina pectoris Hx of CABG Postsurgical aortocoronary bypass status Paroxysmal atrial fibrillation (CMS-HCC) Atrial fibrillation Aneurysm of ascending aorta without rupture (CMS-HCC) History of maze procedure documented in this encounter [facility]* Diagnosis Coronary artery disease involving coronary bypass graft of eek heart without angina pectoris Paroxysmal atrial fibrillation (CMS-HCC) Atrial fibrillation Aneurysm of ascending aorta without rupture (CMS-HCC) Hx of CABG 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 documented in this encounter [facility]* Diagnosis Coronary artery disease involving coronary bypass graft of eek heart without angina pectoris- Primary Paroxysmal atrial fibrillation (CMS-HCC) Atrial fibrillation Primary hypertension Unspecified essential hypertension Mixed hyperlipidemia Left ventricular dysfunction Left heart failure documented in this encounter [facility]* Diagnosis Coronary artery disease involving coronary bypass graft of eek heart without angina pectoris Paroxysmal atrial fibrillation (CMS-HCC) Atrial fibrillation Aneurysm of ascending aorta without rupture (CMS-HCC) Hx of CABG 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 [facility] Diagnosis Coronary artery disease involving coronary bypass graft of eek heart without angina pectoris Hx of CABG Postsurgical aortocoronary bypass status Paroxysmal atrial fibrillation (CMS-HCC) Atrial fibrillation Aneurysm of ascending aorta without rupture ([facility]) History of maze procedure [facility] Diagnosis DDD (degenerative disc disease), [...] headache Headache [facility]* Diagnosis Dysfunction of right eustachian tube- Primary Otorrhea of right ear Chronic anticoagulation Encounter for long-term (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 of 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 documented [facility] Diagnosis Otorrhea of right ear- Primary Dysfunction of right eustachian tube Chronic anticoagulation Encounter for long-term (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 of 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 documented [facility] Present [facility] NarrativeMrLeyla Tabor is referred for consideration of LVRS. 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 He is on 3 L nasal cannula oxygen chronically. He is set to begin pulmonaryrehabilitation.[facility] Work Phone: History of Present illness NarrativeMrLeyla Tabor is referred for consideration of LVRS. 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 He is on 3 L nasal cannula oxygen chronically. He is set to begin pulmonaryrehabilitation.[facility] Work Phone: History of Present illness NarrativeMrLeyla Tabor is referred for consideration of LVRS. 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 He is on 3 L nasal cannula oxygen chronically. He is set to begin pulmonaryrehabilitation.[facility] Work Phone: InstructionsNot on filedocumented in [...] Aleyda Fisher MD [address] [place] [address] Referral ID Status Reason Start Date Expiration Date V isits Requested Visits Authorized [id number] Pending Review 06/08/2024 12/05/2024 1 1 Additional Source Comments (unrecognized sect ion and content) No Status Records FoundNo Status Records FoundNo Status Records FoundNo Status Records FoundNo Status Records FoundNo Status Records FoundNo Status Records Found INFORMATION SOURCE (unrecogn ized section and content) DATE CREATED AUTHOR 07/04/2018 [facility] DATE CREATED AUTHOR AUTHOR'S ORGANIZ ATION 06/09/2022 [facility] DATE CREATED AUTHOR AUTHOR'S ORGANIZ ATION 06/09/2022 [employer] DATE CREATED AUTHOR AUTHOR'S ORGANIZ ATION 02/14/2023 [facility] [place] [facility] DATE CREATED AUTHOR AUTHOR'S ORGANIZ ATION 07/06/2024 [facility] DATE CREATED AUTHOR AUTHOR'S ORGANIZ ATION 04/17/2025 [facility] DATE CREATED AUTHOR AUTHOR'S ORGANIZ ATION 04/25/2025 [facility] Care Teams (unrecognized sec tion and content) Engineering Mathematician Relationship Specialty Start Date End Date Risa Mcnulty JAILKEEPER [address] [place] [address] Referring Physician Family Medicine 03/15/24 Engineering Mathematician Relationship Specialty Start Date End Date Risa Mcnulty JAILKEEPER [address] [place] [address] Referring Physician Family Medicine 03/15/24 Engineering Mathematician Relationship Specialty Start Date End Date Risa cMnulty NP [address] [place] [address] Referring Physician Family Medicine 03/15/24 Engineering Mathematician Relationship Specialty Start Date End Date Risa Mcnulty NP [address] [place] [address] Referring Physician Family Medicine 03/15/24 Engineering Mathematician Relationship Specialty Start Date End Date Risa Mcnulty NP [address] [place] [address] Referring Physician Family Medicine 03/15/24 Engineering Mathematician Relationship Specialty Start Date End Date Kacie Del Real MD [address] [place] [id number] PCP - General Family Medicine 03/22/22 Engineering Mathematician Relationship Specialty Start Date End Date Kacie Del Real MD [address] [place] [address] [id number] PCP - General Family Medicine 03/22/22 Engineering Mathematician Relationship Specialty Start Date End Date Kacie Del Real MD [address] [place] [id number] PCP - General Family Medicine 03/22/22 Engineering Mathematician Relationship Specialty Start Date End Date Kacie Del Real MD [address] [place] [address] [id number] PCP - General Family Medicine 03/22/22 Engineering Mathematician Relationship Specialty Start Date End Date Kacie Del Real MD [address] [place] [id number] PCP - General Family Medicine 03/22/22 Engineering Mathematician Relationship Specialty Start Date End Date Risa Mcnulty APRN-ORAL PATHOLOGIST [address] [place] [id number] PCP - General Family Medicine 06/24/24 Engineering Mathematician Relationship Specialty Start Date End Date Risa Mcnulty APRN-ORAL PATHOLOGIST [address] [place] [id number] PCP - General Family Medicine 06/24/24 Engineering Mathematician Relationship Specialty Start Date End Date Risa Mcnulty, MAT INSPECTOR-ORAL PATHOLOGIST [address] [place] [address] PCP - General Family Medicine 06/24/24 Engineering Mathematician Relationship Specialty Start Date End Date Noam Risa MAT INSPECTOR-ORAL PATHOLOGIST [address] [place] [address] PCP - General Family Medicine 06/24/24 Engineering Mathematician Relationship Specialty Start Date End Date Risa Mcnulty JAILKEEPER [address] [place] [address] Referring Physician Family Medicine 03/15/24 Engineering Mathematician Relationship Specialty Start Date End Date Risa Mcnulty NP [address] [place] [address] Referring Physician Family Medicine 03/15/24 Engineering Mathematician Relationship Specialty Start Date End Date Risa Mcnulty NP [address] [place] [address] Referring Physician Family Medicine 03/15/24 Engineering Mathematician Relationship Specialty Start Date End Date Risa Mcnulty NP [address] [place] [address] Referring Physician Family Medicine 03/15/24 Reason for Visit (unrecogniz ed section and content) Specialty Diagnoses / Procedures Referred By Tonya t Referred To Contact Neurology Diagnoses LUE EMG paresthesias of hand, numbness and tingling, ref by Wei Bill [id number] Procedures VA NERVE CONDUCTION STUDIES 9-10 STUDIES VA NEEDLE EMG EA EXTREMTY W/PARASPINL [place] [address] [place] [address] Aleyda Fisher MD [address] [place] [address] Referral ID Status Reason Start Date Expiration Date V isits Requested Visits Authorized [id number] Closed Perform Procedure 06/08/2024 12/05/2024 1 1 Reason Comments Back Pain Neck Pain Tremors Reason Comments Med Refill Reason Onset Date Comments Med Refill 02/18/2024 Reason Onset Date Comments Med Refill 05/21/2024 Reason Comments Follow-up EST PT FU EM RESULTS Reason Onset Date Comments transfering care 11/25/2024 Reason Onset Date Comments Med Refill 12/20/2024 Reason Comments Back Pain Reason Comments Ear Tube Check Right ear pain Reason Comments Ear Problem 3 week coco ear marquez giang FOR RECORDS PERTAINING TO PATIENTS WHO ARE [...] BE BASED ON THE PRIMARY CLINICAL RECORDS. [employer] provides no warranty or guarantee of the accuracy or completeness of information in this document.
== END 2025-05-13 11:30 | disposition home or self-care (01) ==
LOC: RAD 11:31
PROVIDERS: PCP Family Medicine; Visit Provider Family Medicine
DX: R22.42 Localized swelling, mass and lump, left lower limb (principal)
CPT/HCPCS: 93971

== ENCOUNTER 2025-05-27 12:29 | Outpatient (OUT) | payer MEDICARE, SELFPAY ==
--- OUTSIDE RECORDS SUMMARY | 2012-03-06 05:34 | XMS_ITS | Continuity of Care Document ---
Author Organization [facility] Address [address] [place] [address] [place] [address] Phone Care Team Providers Care Train Brakeman Name Role Phone JUAN FINK MD Unavailable [...] on Encounter [facility], [address] [place] [address], [address] [place] [address], tel:[phone] [facility] No Information 2 DANAE MARTINEZ. [address] [place] [address], [address] [place] [address], . tel:[phone] [facility], [address] [place] [address], [address] [place] [address], tel:[phone] [facility] No Information 2 DANAE MARTINEZ. [address] [place] [address], [address] [place] [address], . tel:[phone] Offic/outpt E&m Estab Minor 10 [facility], [address] [place] [address], [address] [place] [address], tel:[phone] [facility] No Information 1 DANAE MARTINEZ. [address] [place] [address], [address] [place] [address], . tel:[phone] [facility], [address] [place] [address], [address] [place] [address], tel:[phone] [facility] No Information 1 DANAE MARTINEZ. [address] [place] [address], [address] [place] [address], . tel:[phone] [facility], [address] [place] [address], [address] [place] [address], tel:[phone] [facility] No Information Oct-0 3-201 1 DANAE LEALPELONLAKEISHA. [address] [place] [address], [address] [place] [address], . tel:[phone] [facility], [address] [place] [address], [address] [place] [address], tel:[phone] [facility] No Information Sep-2 2-201 1 BERYL ABBOTT. [address] [place] [address], [address] [place] [address], . tel:[phone] Referring Provider: Nigel Carvajal, [address] [place] [address], [facility]. tel:[phone] [facility], [address] [place] [address], [address] [place] [address], tel:[phone] [facility] No Information Sep-2 1-201 1 PANDA IBRAHIM. [address] [place] [address], [address] [place] [address], . tel:[phone] Referring Provider: Nigel Carvajal, [address] [place] [address], [facility]. tel:[phone] [facility], [address] [place] [address], [address] [place] [address], tel:[phone] [facility] No Information Sep-0 7-201 1 Samreen Ochoa. [address] [place] [address], [address] [place] [address], . tel:[phone] Referring Provider: Nigel Carvajal, [address] [place] [address], [facility]. tel:[phone] Offic/outpt E&m Estab Low-mod [facility], [address] [place] [address], [address] [place] [address], tel:[phone] [facility] No Information Oct-0 8-200 9 BERYL ABBOTT. [address] [place] [address], [address] [place] [address], . tel:[phone] Offic/outpt E&m Estab Low-mod [facility], [address] [place] [address], [address] [place] [address], tel:[phone] [facility] No Information Nov-2 6-200 7 KIBILOSÁLVARO MILENA. [address] [place] [address], [address] [place] [address], . tel:[phone] [facility], [address] [place] [address], [address] [place] [address], tel:[phone] [facility] No Information 5-200 7 KIBILOSKI MILENA. [address] [place] [address], [address] [place] [address], [place]. tel:[phone] [facility], [address] [place] [address], [address] [place] [address], tel:[phone] [facility] No Information Dec-0 4-200 6 KIBILOSÁLVARO MILENA. [address] [place] [address], [address] [place] [address], . tel:[phone] [facility], [address] [place] [address], [address] [place] [address], tel:[phone] [facility] In Patient No Information 7-200 6 KIBILOSÁLVARO MILENA. [address] [place] [address], [address] [place] [address], . tel:[phone] [facility], [address] [place] [address], [address] [place] [address], tel:[phone] [facility] No Information January-2 5-200 6 KIBILOSÁLVARO MILENA. [address] [place] [address], [address] [place] [address], [place]. tel:[phone] Referring Provider: Jaquan Dowell, [address] [place], [facility]. tel:[phone] [facility], [address] [place] [address], [address] [place] [address], tel:[phone] [facility] No Information Oct-0 2-200 3 KIBILOSKI MILENA. [address] [place] [address], [address] [place] [address], [place]. tel:[phone] [facility], [address] [place] [address], [place], [place], [id number], [place] tel:[phone] [facility] No Information No Information Family History Family Member Type Diagnosis Age At Onset No Information Payers Payer name Insurance type Covered libertarian ID Saleem ya(s) [facility] [id number] Medicare Part B [id number] Social History Type Description Quantity Date Captured Comments Sex Male Smoking Status No Information Chief Complaint And Reason For Visit No Information Reason For Referral Reason For Referral No Information Plan Of Treatment Date Type Action Status Future Order: Lab Order Cervical W/o Contrast ([id number]), Appointment on: , Sent on: Sent Future Order: Lab Order L Spine 3VW w/spot ([id number]), Sent on: Sent Future Order: Lab Order Thoracic Spine 2VW ([id number]), Sent on: Sent Future Order: Lab Order C Spine 2VW ([id number] 0), Sent on: Sent Future Order: Lab Order Lumbar W /o Contrast ([id number]), Appointment on: , Sent on: Sent Future Order: Lab Order Thoracic W/o Contrast ([id number]), Appointment on: , Sent on: Sent Future Order: Lab Order Hip 2 VW Left ([id number]), Sent on: Sent History Of Present Illness Encounter Date Complaint History Of Prese nt Illness No Information Functional Status Date Functional Assessmen t No Information Instructions Date Instruction Additional Infor mation No Information Assessments Type Assessment Date No Information Patient Care Teams Name Effective Dates (start - stop) Status Members No Information
--- OUTSIDE RECORDS SUMMARY | 2025-05-27 11:00 | XMS_ITS | Encounter Summary ---
Author Organization [facility] Address [address] [place] [address] Care Team Providers Care Educational Technology Coordinator Name Role Phone Mraio Zayas MD Primary Care Provider [phone] Reason for Referral * Imaging (Routine) - Pending Review Specialty Diagnoses / Procedures Referred By Tonya t Referred To Contact Diagnoses Aneurysm of ascending aorta without rupture Procedures CTA Chest W IV Contrast Dorinda Diaz MD [address] [facility] [address] [place] [address] Phone: tel: fax: Referral ID Status Reason Start Date Expiration Date V isits Requested Visits Authorized [id number] Pending Review 05/27/2025 05/27/2026 1 1 Reason for Visit * Reason Comments Follow-up Patient is here toda y for a follow up s/p cath. Patient states heart desir he feels well. Patient states he fell around labor day and possibly tore a hamstring. Post-Cath Coronary Artery Disease Hyperlipidemia Hypertension Thoracic aortic aneurysm without rupture Cardiomyopathy Atrial Fibrillation Congestive Heart Failure Encounter Details Date Type Department Care Team (Late st Contact Info) Description 05/27/2025 11:00 AM EDT Office Visit [facility] [address] [place] [address] Dorinda Diaz MD [address] [facility] [address] MS:[place] [address] Aneurysm of ascending aorta without rupture (Primary Dx); Benign hypertensive heart disease 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; Mixed hyperlipidemia Social History Tobacco Use Types Packs/Day Years [...] PM EDT documented as of this encounter Last Filed Vital Signs Vital Sign Reading Time Taken Comments Blood Pressure 84/56 05/27/2025 11:01 AM EDT Pulse 72 05/27/2025 11:01 AM EDT Temperature - - Respiratory Rate - - Oxygen Saturation 92% 05/27/2025 11: 01 AM EDT 3 lpm o2 via n/c Inhaled Oxygen Concentration - - Weight 108 kg (237 lb) 05/27/2025 11:01 AM EDT Height 175.3 cm (5' 9 ) 05/27/2025 11:0 1 AM EDT Body Mass Index 35 05/27/2025 11:01 AM EDT documented in this encounter Plan of Treatment Scheduled Orders Name Type Priority Associated Diagnoses Orde r Schedule CTA Chest W IV Contrast Imaging Routine Aneurysm of ascending aorta without rupture Expected: 05/27/2025, Expires: 05/27/2026 Creatinine, Serum Lab Routine Aneurysm of ascending aorta without rupture Expected: 05/27/2025 (Approximate), Expires: 05/27/2026 Lipid panel Lab Routine Mixed hyperlipidemia Expected: 05/27/2025 (Approximate), Expires: 05/27/2026 AST Lab Routine Mixed hyperlipidemia Expected: 05/27/2025 (Approximate), Expires: 05/27/2026 ALT Lab Routine Mixed hyperlipidemia Expected: 05/27/2025 (Approximate), Expires: 05/27/2026 documented as of this encounter Visit Diagnoses Diagnosis Aneurysm of ascending aorta without rupture- Primary Benign hypertensive heart disease 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 Benign hypertensive heart disease without heart failure Mixed hyperlipidemia documented in this encounter Care Teams Educational Technology Coordinator Relationship Specialty Start Date End Date Mario Zayas MD [address] [id number] PCP - General Family Medicine 02/09/25 documented as of this encounter
--- OUTSIDE RECORDS SUMMARY | 2025-05-27 12:32 | XMS_ITS | Clinical Summary ---
Author Organization [facility] Healthcare Address [address] [place] [address] Care Team Providers Care Solar Sales Advisor Name Role Phone Pauly Santacruz EQUIPMENT TECHNICIAN Unavailable Allergies Active Allergy Reactions Criticality Noted Date Comments Gluten Meal GI intolerance Low 05/08/2022 Isosorbide Nitrate Headache Low 06/21/2022 Medications albuterol HFA 90 mcg/act inhaler Inhale 2 puffs every 6 (six) hours if needed for wheezing or shortness of breath Active albuterol (5 MG/ML) 0.5% nebulizer solution Take 2.5 mg by nebulization every 4 (four) hours if needed for wheezing or shortness of breath Active ascorbic acid (Vitamin C) 1000 MG tablet Take 1,000 mg by mouth in the morning. Active aspirin 81 MG EC tablet Take 81 mg by mouth in the morning. 07/25/20 22 Active atorvastatin (Lipitor) 40 MG tablet Take 40 mg by mouth at bedtime Active Trelegy Ellipta 100-62.5-25 MCG/ACT aerosol powder Inhale 1 puff in the morning. 03/15/20 22 Active ipratropium-albut vignesh (Duo-Neb) 0.5-2.5 mg/3 mL nebulizer solution Take 3 mL by nebulization in the morning and 3 mL at noon and 3 mL in the evening and 3 mL before bedtime. 02/21/20 22 Active isosorbide mononitrate ER (Imdur) 30 MG 24 hr tablet Take 30 mg by mouth Daily 06/13/20 22 Active lisinopril 5 MG tablet Take 5 mg by mouth in the morning. Active metoprolol succinate XL (Toprol-XL) 50 MG 24 hr tablet Take 50 mg by mouth in the morning and 50 mg before bedtime. Active nitroglycerin (Nitrostat) 0.[address] 0.4 mg under the tongue every 5 (five) minutes if needed for chest pain 07/25/20 Active omeprazole (PriLOSEC) [address] capsule Take 40 mg by mouth in the morning. 03/19/20 Active Daliresp 500 MCG tablet Take 500 mcg by mouth in the morning. 03/15/20 Active theophylline ER (Uniphyl) 400 MG 24 hr tablet Take 400 mg by mouth in the morning and 400 mg before bedtime. 01/17/20 23 Active apixaban (Eliquis) 5 MG tablet Take 5 mg by mouth in the morning and 5 mg in the evening. 06/04/20 23 Active cholecalciferol (Vitamin D-3) 50 MCG (1999 UT) capsule 1 capsule 1 (one) time each day at the same time Active ferrous sulfate 325 (65 Fe) MG EC tablet Take 65 mg by mouth in the morning. Take with meals. Active SUMAtriptan (Imitrex) 100 MG tablet Active zinc gluconate 50 MG tablet 1 (one) time each day at the same time Active azithromycin (Zithromax) 250 MG tablet Take [...] before bedtime. 270 capsule 12/21/19 25 Active dapagliflozin (Farxiga) 10 MG Take 10 mg by mouth 02/11/20 25 026 Active meloxicam (Mobic) 15 MG tablet Take 15 mg by mouth Daily Active pantoprazole (ProtoNix) 40 MG EC tablet Take 40 mg by mouth Daily 02/08/20 25 Active spironolactone (Aldactone) 25 MG tablet Take 25 mg by mouth in the morning. 02/10/20 25 026 Active tiZANidine (Zanaflex) 4 MG tablet TAKE 2 TABLETS BY MOUTH AT BEDTIME FOR 30 DAYS 01/08/20 25 Active topiramate 50 MG tablet Take 1 tablet by mouth Daily 02/22/20 25 Active sodium chloride 0.9 % nebulizer solution Inhale 3 mL 03/23/20 25 Active Active Problems Problem Noted Date [...] disease invo lving coronary bypass graft of [place] heart without angina pectoris 05/20/2022 History of maze procedure 05/20/2022 Hx of CABG 05/20/2022 Paroxysmal atrial fibrillation 05/20/2022 Thoracic aortic aneurysm without rupture 022 Resolved Problems Problem Noted Date Diagnosed Date Resolved Date Centrilobular emphysema 03/25/202503/08 Overview (2025): Noted by [facility] last documented on [id number] Hypertensive heart disease with heart failure 03/25/20 25 2025 Overview (2025): Noted by [facility] last documented on 20241001 Chronic anticoagulation 08/16/202403/08 Chronic systolic heart failure 08/16/2024 2025 Erectile dysfunction 08/16/2024 025 Cardiomyopathy, ischemic 08/16/2024 Class 2 severe obesity due t o excess calories with serious comorbidity and body mass index (BMI) of 35.0 to 35.9 in adult 08/16/2024 Pain in wrist 08/16/2024 2025 Pure hypercholesterolemia 08/16/2024 Arthritis 08/16/2024 2025 Mixed hyperlipidemia 06/24/2024 025 Primary hypertension 06/24/2024 025 Peripheral polyneuropathy 06/27/2023 Celiac disease 03/04/2019 06/27/2023 Cervicalgia 04/08/2018 06/27/2023 Headache in back of head 04/08/2018 Chronic obstructive lung disease 01/22/2018 06/27/2023 Sinus tachycardia 01/22/2018 06/27/2023 Encounters Date Type Department Care Team Description 04/15/2025 9:30 AM EDT Office Visit [facility] [address] [place] [address] Tree Carmona DO Otorrhea of right ear (Primary Dx); Dysfunction of right eustachian tube; Chronic anticoagulation 04/15/2025 Bamboo flowsheet [facility] [address] [place] [address] Tree Carmona, 04/15/2025 Travel 2025 9:15 AM EDT Office Visit [facility] [address] [place] [address] Tree Carmona, Dysfunction of right eustachian tube (Primary Dx); Otorrhea of right ear; Chronic anticoagulation 2025 Bamboo flowsheet [facility] [address] [place] [address] Tree Carmona, 2025 Travel 03/21/2025 Telephone [facility] [address] [place] [address] Tree Carmona, DO from Last 3 Months Immunizations Immunization Administration Dates Next Due Influenza, High Dose Seasonal, Preservative Free 05/23/2021 Influenza, injectable, MDCK, preservative free, quadrivalent 08/13/2023 Pfizer Purple Cap SARS-CoV-2 Vaccination 021,09/20/2020 Tdap 08/13/2023 Family History Medical History Relation Name Comments Heart disease Father Cancer Mother Heart disease Mother Hypertension Mother Diabetes Sibling Relation Name Status Comments Father Mother Sibling Alive Social History Tobacco Use Types Packs/Day Years Used Date Smoking Tobacco: Former Cigarettes 2 35 0 09/08/1974 - 09/08/2009 Smokeless Tobacco: Never Tobacco Cessation:Counseling Given: Not Answered Alcohol Use Standard Drinks/Week Comments Never 0 [...] - - Weight 113 kg (250 lb) 04/15/2025 9:22 AM EDT Height 177.8 cm (5' 10 ) 04/15/2025 9:22 AM EDT Body Mass Index 35.87 04/15/2025 9:22 AM EDT Plan of Treatment Upcoming Encounters Date Type Department Care Team (Late st Contact Info) Description 10/17/2025 10:15 AM EST Office Visit [facility] [address] [place] [address] Tree Carmona DO [address] [place] [address] Health Maintenance Due Date Last Done Comments CT Colonography 1960 Colonoscopy 1960 Colorectal Cancer Screening 1960 FIT-DNA 1960 FIT 1960 FOBT 1960 Sigmoidoscopy 1960 Pneumococcal Vaccine: 65+ Ye ars (1 of 1 - PCV) 2010 Influenza Vaccine (#1) 2025 08/13/2023, 2020 Insurance [employer] Care Teams Solar Sales Advisor Relationship Specialty Start Date End Date Pauly Santacruz NP [address] [place] [id number] Referring Physician Family Medicine 03/15/24
--- OUTSIDE RECORDS SUMMARY | 2025-05-27 12:32 | XMS_ITS | Encounter Summary ---
Author Organization [facility] [address] [place] [address] Care Team Providers Care Recreation Coordinator Name Role Phone Mario Zayas MD Primary Care Provider [phone] Encounter Details Date Type Department Care Team (Late st Contact Info) Description 04/21/2025 Results Follow-Up [facility] [address] [place] [phone] Dorinda Diaz MD [address] [facility] [address] [place] [address] Cardiac catheterization Social History Tobacco Use Types [...] on filedocumented in this encounter Care Teams Recreation Coordinator Relationship Specialty Start Date End Date Mario Zayas MD [address] [facility] [place] [address] [address] PCP - General Family Medicine 02/09/25 documented as of this encounter
--- OUTSIDE RECORDS SUMMARY | 2025-05-27 12:32 | XMS_ITS | Encounter Summary ---
Author Organization [facility] Address [address] [facility] [place] [address] Care Team Providers Care Ice Cream Freezer Name Role Phone Mario Zayas MD Primary Care Provider [phone] Encounter Details Date Type Department Care Team (Late st Contact Info) Description 04/02/2025 Results Follow-Up [facility] [address] [place] [phone] Dorinda Diaz MD [address] [place] [address] Lexiscan Stress Myocardial Perfusion Imaging Social History [...] on filedocumented in this encounter Care Teams Ice Cream Freezer Relationship Specialty Start Date End Date Mario Zayas MD [address] [facility] [address] [address] PCP - General Family Medicine 02/09/25 documented as of this encounter
--- OUTSIDE RECORDS SUMMARY | 2025-05-27 12:32 | XMS_ITS | Clinical Summary ---
Author Organization [facility] Address [address] [place] [address] Phone Care Team Providers Care Rotary Driller Helper Name Role Phone Unavailable Primary Care Provider [...]
--- OUTSIDE RECORDS SUMMARY | 2025-05-27 12:36 | XMS_ITS | CCD ---
Author Organization [facility] Providers Care Distillery Manager Name Role Phone ERICK MELLISA STOHLER [...] Unavail able SAMSA ., DARNELL Admitting Unavailable [facility] Primary Care Unavailable SAMSA ., DARNELL Attending Unavailable SAMSA ., DARNELL Consulting Unavailable SAMSA ., DARNELL Admitting Unavailable [facility] Primary Care Unavailable SAMSA ., DARNELL Attending Unavailable SAMSA ., DARNELL Consulting Unavailable GREG, KACIE Consulting Unavailable [facility] Primary Care Unavailable SAMSA ., DARNELL Attending Unavailable SAMSA ., DARNELL Consulting Unavailable SAMSA ., DARNELL Admitting Unavailable [facility] Primary Care Unavailable DR ALEYDA DYER Consulting Unavailable SAMSA ., DARNELL Attending Unavailable SAMSA ., DARNELL Admitting Unavailable SAMSA ., DARNELL Consulting Unavailable Noam CHRISTIAN, Risa Unavailable EMELY CANTU Referring Unavailable KACIE DEL REAL Primary Care Unavailable GILLIAN TAYLOR Attending Unavailable KACIE DEL REAL Referring Unavailable RISA MCNULTY Primary Care Unavailable Kacie Del Real MD Primary Care Provider Noam SUPERVISOR FABRICATION-WORKING MANAGERRisa Primary Care Provider LINSEY HALL Attending Unavailable TREE KRISHNAN Attending [...] Propensity to adverse reactions 2 GI intolerance [facility] Healthcare (16 sources) Isosorbide Dinitrate Drug Allergy 2 Headache [facility] Healthcare (11 sources) Gluten; Translations: [GLUTEN] Propensity to adverse reactions to food (disorder) 2 [facility] (11 sources) Isosorbide; Translations: [ISOSORBIDE MONONITRATE] Drug Allergy 2 Headache [facility] (1 source) ALLERGIES NOT ON FILE; Translations: [ALLERGIES NOT ON FILE] Propensity to adverse reactions (disorder) [facility] Repository Medications Current Medications Medication Drug Class(es) Dates Sig (Normalized) Sig (Original) [id number] 200 actuat albuterol 0.09 mg/actuat metered dose [...] artery disease involving coronary bypass graft of lummi heart without angina pectoris , Hx of [...] Ordered: 15-Mar-2022 DO Start : 15-Mar-2022 Active geojutlvlow-ffyrpgzim-clidqr er (TRELEGY ELLIPTA) 200-62.5-25 mcg blister with device (10 sources) Start: 03-15-2022 wybeohobnno-ggqnadwlt-cwqnux er (TRELEGY ELLIPTA) 200-62.5-25 mcg blister with [...] artery disease involving coronary bypass graft of lummi heart without angina pectoris , Hx of CABG , Paroxysmal atrial fibrillation ([facility]) , Aneurysm of ascending aorta without rupture [...] artery disease involving coronary bypass graft of lummi heart without angina pectoris , Hx of [...] artery disease involving coronary bypass graft of lummi heart without angina pectoris , Paroxysmal atrial [...] bedtime. 01/16/2023 Active take 1 capsule by [facility] every twenty-four hours in the morning [...] take 1 puff(s) by inhalation once daily Fvqkxwvsrpr-Ypezhnnkm-Cblala 200-62.5-25 MCG/ACT aerosol powder Inhale 1 puff [...] [Coronary atherosclerosis of unspecified type of vessel, lummi or graft] Onset: 4 Resolved: 5 2025 [...] sources) Long-term current use of anticoagulant; Translations: [longterm (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 of 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] Onset: 4 Resolved: [...] Chronic Unclassified (1 source) Neck Pain / 532234() Onset: 8 Unclassified (1 source) Stiffness / 343() Onset: 8 Unclassified (1 source) Back Pain / 12() Onset: 8 Unclassified (1 source) Upper Extremity Weakness / [id number]() Onset: 8 Unclassified (2 sources) Abnormal stress [...] 2025 2025 Chronic Other aftercare (2 sources) 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 Tabor with Dr. Saleh. He has a drop in LVEF and a positive stress test. Plan cors, LV and WALTERS angiography. He voices understanding of risks (, SD, bleeding, etc) and agrees to proceed. Patient: [...] Celiac disease 08/16/2024 Coronary artery disease involving lummi coronary artery of lummi heart without angina pectoris 08/16/2024 Erectile dysfunction 08/16/2024 Pain in wrist 08/16/2024 Peripheral polyneuropathy 08/16/2024 Cardiomyopathy, ischemic 08/16/2024 Chronic systolic heart failure (CMS/HCC) 08/16/2024 Chronic anticoagulation 08/16/2024 Pure hypercholesterolemia 08/16/2024 Class 2 severe obesity due to excess calories with serious comorbidity and body mass index (BMI) of 35.0 to 35.9 in adult ([facility]) 08/16/2024 Mixed hyperlipidemia 06/24/2024 Essential hypertension 06/24/2024 DDD (degenerative disc disease), lumbar 01/20/2024 Neuropathy 01/20/2024 Paresthesia 01/20/2024 History of maze procedure 05/20/2022 Paroxysmal A-fib ([facility]) 05/20/2022 Thoracic aortic aneurysm without rupture 05/20/2022 Cervicalgia 04/08/2018 Headache in back of head 04/08/2018 Abnormal cardiovascular stress test 04/05/2025 Allergies: Allergies[2] APPLIANCE ADJUSTER/Current Medications: Prescriptions Prior to Admission[3] Current Medications[4] [...] and agreed to proceed. 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 [facility] HPon 04-21-2025 HP H&P reviewed. The guillermo so was examined and there are no changes to the H&P. Will proceed with coronary angiography for further evaluation of abnormal stress test. Consent for blood products obtained. Risks, benefits, and alternatives to procedure discussed with patient in detail who expressed understanding and agreed to proceed. [facility] Ann Marie 04-21-2025 NURSNOTE RN educated pt [...] of unit with all of belongings. Normal [facility] NURSNOTE Patient requesting r alexandra do his DuoNeb nebulizer prior to having his cath done. 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 He states that overall he has [...] Rfl: theop (more content not included)... Normal [facility] Office Visiton 04-14-2025 Follow-up visit [id number] Armando Tabor 1960 M Date Provider Department Center 04/14/2025 [id number] [id number] Family History Problem Relation Age of Onset Coronary artery disease Mother Coronary artery disease Father Family Status - Relation Status Age at Mother Father Sister Alive Level of Service:21391 [place] OFFICE/OUTPATIENT ESTABLISHED MOD MDM 30 MIN Reason for Visit and Comments: Follow-up [223349] Abnormal stress test [Other] Cardiac Cath scheduled 04/28/2025 [Other] Coronary Artery Disease [187] Hyperlipidemia [182] Congestive Heart Failure [127] Hypertension [077658] COPD [313] Home o2 3lpm via N/C 31/03 [Other] [facility] 36on 04-12-2025 36 MD Scarlett Hagan MA Overall echo is normal with minor valvular heart disease LVM to advise patient of Dr. Diaz's findings. Normal [facility] Orders Onlyon 04-05-2025 Orders Only [id number] Armando Tabor loida E 1960 M Date Provider Department Center 04/05/2025 [id number]-DANNI THOMSA CAROL [place] Family History Problem Relation Age of Onset Coronary artery disease Mother Coronary artery disease Father Family Status - Relation Status Age at Mother Father Sister Alive [facility] Orders Onlyon 03-21-2025 Orders Only [id number] Armando Tabor loida E 1960 M Date Provider Department Center 03/21/2025 [id number], [facility] CAROL [place] Family History Problem Relation Age of Onset Coronary artery disease Mother Coronary artery disease Father Family Status - Relation Status Age at Mother Father Sister Alive [facility] 36on 02-09-2025 36 Regarding lab result s [...] labs prior to apt in Apr-May 2025. [facility] Orders Onlyon 02-04-2025 Orders Only [id number] Armando Tabor loida E 1960 M Date Provider Department Center 02/04/2025 [id number], HISTORICAL SHAVON [place] Family History Problem Relation Age of Onset Coronary artery disease Mother Coronary artery disease Father Family Status - Relation Status Age at Mother Father Sister Alive Normal [facility] Office Visiton 12-31-2024 Follow-up visit [id number] Armando Tabor 1960 M Date Provider Department Center 12/31/2024 BENNY NICOLE CAROL [place] Family History Problem Relation Age of Onset Coronary artery disease Mother Coronary artery disease Father Family Status - Relation Status Age at Mother Father Sister Alive Level of Service:58239 [place] OFFICE/OUTPATIENT ESTABLISHED MOD MDM 30 MIN Reason for Visit and Comments: Coronary Artery Disease [187] Hyperlipidemia [182] Hypertension [317069] Normal [facility] 36on 10-07-2024 36 Regarding echo and C [...] and blue Medicare care to apply for [employer] patient assistance program. Free 30 day voucher also provided for patient. BMP order given to be done in 1 week. LIPID,AST,ALT orders given to him to be completed in 2 months after increasing atorvastatin per Dr. Diaz. He verbalized understanding. Normal [facility] Office Visiton 08-16-2024 Follow-up visit [id number] Armando Tabor 1960 M Date Provider Department Center 08/16/2024 BENNY NICOLE CAROL [place] Family History Problem Relation Age of Onset Coronary artery disease Mother Coronary artery disease Father Family Status - Relation Status Age at Mother Father Level of Service:04525 [place] OFFICE/OUTPATIENT NEW MODERATE MDM 45 MINUTES Reason for Visit and Comments: Atrial Fibrillation [80] - Had EKG at last apt with [facility] in Jun 2024. Denies chest pain and bleeding on Eliquis. Coronary Artery Disease [187] - CABG and MAZE in 2016 Hypertension [475765] Hyperlipidemia [182] COPD [313] - Sees Dr. Oni Marrero [facility] POCT EKGOrdered By: Juana Hercules on 06-24-2024 [employer] [facility] EMG 1 Extremeityon 4 [facility] Healthcare NVC 7-8 Nerveson 06-08-2024 [facility] THEOPHYLLINEon 12-30-2022 THEOPHYLLINE 18.0 ug/mL Normal 10.0-20.0 [facility] Comment on above: Performed By: #### T ADALID #### [facility] [address] [address] [address] Karen Lee THEOPHYLLINEon 12-17-2022 THEOPHYLLINE 8.3 ug/mL Critically low 10.0-20.0 [facility] Comment on above: Performed By: #### T ADALID #### [facility] [address] [address] [address] Karen Lee Blood Pressure Cuff Sizeon [...] Activated Vitals Vital Signs Recorded: 29May2022 02:58PM Wovmtltzegg43.2 F Heart Rate91 Lbctscqmuti56 Wakwndaf292 Wgluqlfxv55 Blood Pressure Cuff SizeLarge Height5 ft 7.32 in Srcvrt140 lb 7 oz BMI Lychthrplj33.15 kg/m2 BSA Calculated2.19 Tobacco Useb) No Falls Screening (Age 18+)a) No falls within the last year O2 Dhwmrsepfq34, Nasal Cannula Pain Scale7 Physical Exam The [...] May 29 2022 3:24PM EST (Author) Normal [facility] Referral Letteron 022 Referral Letter Mr. Tabor [...] May 29 2022 3:24PM EST (Author) Normal [facility] CT LUNG CANCER SCREENINGon 0 04-26-2022 CT [...] by: ALEYDA DYER Date: 2022-04-26 16:20 Normal [facility] HEMOGLOBINon 04-26-2022 Hemoglobin (Bld) [Mass/Vol] 13.6 g/dL Critically low 14.0-18.0 [facility] Comment on above: Performed By: #### H GB #### [facility] [address] [place] [address] Dr. Karen Lee Progress Noteson 06-04-2018 Protein mass conc [facility] Notes by Jacquelyn Rivera PT [...] Pt self discharged with last txsession with APPLIANCE ADJUSTER.Patient is being discharged due to not returning to therapy and/or Plan of Care being .Recommend patient continue with HEP previously instructed on during therapy as appropriate.Patient may be reinstated in therapy upon new evaluation and orders from the physician.Thank You. [facility] Progress Noteson 04-23-2018 Protein mass conc Encounter Department : [facility] REHAB THERAPYProgress Notes by Berlin Valle PTA at 04/23/2018 9:00 AMAuthor: Berlin Valle PTAService: (none)Author Type: Physical Therapy AssistantFiled: 04/23/2018 9:46 AMEncounter Date: 04/23/2018Status: SignedEditor: Berlin Valle PTA (Color Worker)Physical Therapy Treatment NoteVisit Number: 5Encounter diagnosis:ICD-10-CM1.Cervical giaM54.22.Headache in back of [id number] Medical Diagnosis:SUBJECTIVE: Pt requests today being his [...] t-band- Scap retract x15- B UE ext y79Aial tucks x15GTB rows 5e97Hxauvs- STM along c-spine paraspinals, UT, and levator [...] in rotation and SB without increase in pain.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 Operator Goals: LTG to be met by [...] Time: 10Total Treatment Time: 25 PT Treatment [facility] Progress Noteson 04-21-2018 Protein mass conc Encounter [facility]YProgress Notes by Berlin Valle PTA at 04/21/2018 9:00 AMAuthor: Berlin Valle PTAService: (none)Author Type: Physical Therapy AssistantFiled: 04/21/2018 9:46 AMEncounter Date: 04/21/2018Status: SignedEditor: Berlin Valle PTA (Color Worker)Physical Therapy Treatment NoteVisit Number: 4Encounter diagnosis:ICD-10-CM1.Cervical giaM54.22.Headache in back of [id number] Medical Diagnosis: CervicalgiaSUBJECTIVE:Complia nce with HEP: Pt [...] t-band- Scap retract x15- B UE ext t94Mofk tucks x15GTB rows 0s96Unonrj- STM along c-spine paraspinals, UT, and levator [...] in rotation and SB without increase in pain.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 REHAB THERAPYProgress Notes by Collette Villanueva PTA at 04/16/2018 9:00 AMAuthor: Collette Villanueva PTAService: (none)Author Type: Physical Therapy AssistantFiled: 04/16/2018 12:11 PMEncounter Date: 04/16/2018Status: SignedEditor: Collette Villanueva PTA (Color Worker)Physical Therapy Treatment NoteVisit Number: 3Encounter diagnosis:ICD-10-CM1.Cervical giaM54.22.Headache in back of [id number] Medical Diagnosis: CervicalgiaSUBJECTIVE:Complia nce with HEP: Patient [...] t-band- Scap retract x15- B UE ext p26Mmmx tucks x15GTB rows 7e18Nqvaxh- STM along c-spine paraspinals, UT, and levator [...] in rotation and SB without increase in pain.Group Home Goals: LTG to be met by 06/08/18 [...] Time: 28Total Treatment Time: 43 PT Treatment [facility] Progress Noteson 04-10-2018 Protein mass conc Encounter Department : [facility] THERAPYProgress Notes by Berlin Valle PTA at 04/10/2018 9:00 AMAuthor: Berlin Valle PTAService: (none)Author Type: Physical Therapy AssistantFiled: 04/10/2018 10:21 AMEncounter Date: 04/10/2018Status: SignedEditor: Berlin Valle PTA (Color Worker)Physical Therapy Treatment NoteVisit Number: 2Encounter diagnosis:ICD-10-CM1.Cervical giaM54.22.Headache in back of [id number] Medical Diagnosis: CervicalgiaSUBJECTIVE:Complia nce with HEP: Pt [...] UT stretch 3x 30'Chin tucks x15GTB rows 5b19RWH: chin tuck, UT and LS stretch, scap [...] in rotation and SB without increase in pain.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 REHAB THERAPYProgress Notes by Jacquelyn Rivera PT at 04/08/2018 1:45 PMAuthor: Jacquelyn Rivera PTService: (none)Author Type: Physical TherapistFiled: 04/08/2018 6:47 PMEncounter Date: 04/08/2018Status: SignedEditor: Jacquelyn Rivera PT (Physical Therapist)Physical Therapy EvaluationEncounter diagnosis:ICD-10-CM1.Cervical giaM54.22.Headache in back of [id number] provider: Mellisa Clarke,*Primary Medical Diagnosis: CervicalgiaPlan of [...] Home: 15Prior Level of Functioning: Level of Nance: Modified IndependentCurrent Level of Functioning: Outcome Score: NDI (26 raw score NDI, 52% disability) Functional deficits: reports no functional deficits, able to do everything just withincreased pain. Level of Nance: Modified IndependentSleep Status/Sleep Hygiene: Preferred Sleep Position: [...] codes)[id number] Mobility Current Status; Severity: CK 40-59% urswvifvQ9161 Mobility Goal Status; Severity: CI 1-19% impairedOutcome measure(s)/Test(s) used/Result(s): 52% disability on NDI.Clinical Judgment: Moderate to severe impairement, decreased neck ROM and strength, tenderness totrigger points moderateNew Category to Mujiag-Em-Usjk only?:NoEvaluation Breakdown DescriptionPatient HistoryComorbiditiesEnvironme ntal/Personal factorsLearning/CognitionDome stic [...] in rotation and SB without increase in pain.Group Home Goals: LTG to be met by 06/08/18 [...] Time: 60Time in: 1:44Time Out: 2:45 PT [facility] Vital Signs Date Time Vital Sign Value Performing Clinician Facility 04-15-2025 09:22-0400 Body height 177.8 cm Tree Mobile Complete DO Work Phone: [facility] 04-15-2025 09:22-0400 Body mass index (BMI) [Ratio] 35.87 kg/m2 [employer] Complete DO Work Phone: [facility] 04-15-2025 09:22-0400 Body weight 113.4 kg [employer] Complete DO Work Phone: [facility] 2025 09:00-0400 Body height 177.8 cm [employer] Complete DO Work Phone: [facility] 2025 09:00-0400 Body mass index (BMI) [Ratio] 35.87 kg/m2 [employer] Complete DO Work Phone: [facility] 2025 09:00-0400 Body weight 113.4 kg [employer] Complete DO Work Phone: [facility] 12-27-2024 10:42-0400 Body height 177.8 cm Linsey LI Work Phone: [facility] 12-27-2024 10:42-0400 Body mass index (BMI) [Ratio] 35.87 kg/m2 Linsey LI Work Phone: [facility] 12-27-2024 10:42-0400 Body weight 113.4 kg Linsey LI Work Phone: [facility] 04-21-2025 10:42-0400 Diastolic blood pressure 82 mm[Hg] Linsey Hall PA Work Phone: [facility] 12-27-2024 10:42-0400 Heart rate 75 /min Linsey Hall PA Work Phone: [facility] 12-27-2024 10:42-0400 Respiratory rate 16 /min Linsey Hall PA Work Phone: [facility] 12-27-2024 10:42-0400 SaO2% (BldA) [Mass fraction] 94 % Linsey Hall PA Work Phone: [facility] 12-27-2024 10:42-0400 Systolic blood pressure 142 mm[Hg] Linsey Hall PA Work Phone: [facility] 06-24-2024 13:52-0400 Body height 172.7 cm Gillian Taylor MD Work Phone: [facility] 06-24-2024 13:52-0400 Body mass index (BMI) [Ratio] 37.26 kg/m2 Gillian Taylor MD Work Phone: [facility] 06-24-2024 13:52-0400 Body weight 111.13 kg Gillian Taylor MD Work Phone: [facility] 06-24-2024 13:52-0400 Diastolic blood pressure 62 mm[Hg] Gillian Taylor MD Work Phone: [facility] 06-24-2024 13:52-0400 Heart rate 74 /min Gillian Taylor MD Work Phone: [facility] 06-24-2024 13:52-0400 SaO2% (BldA) [Mass fraction] 94 % Gillian Taylor MD Work Phone: [facility] 06-24-2024 13:52-0400 Systolic blood pressure 122 mm[Hg] Gillian Taylor MD Work Phone: [facility] 06-09-2024 11:17-0400 Body height 172.7 cm Linsey Hill PA Work Phone: [facility] 06-09-2024 11:17-0400 Body mass index (BMI) [Ratio] 38.01 kg/m2 Linsey Hall PA Work Phone: [facility] 06-09-2024 11:17-0400 Body weight 113.4 kg Linsey Hall PA Work Phone: [facility] 06-09-2024 11:17-0400 Diastolic blood pressure 84 mm[Hg] Linsey Hall PA Work Phone: [facility] 06-09-2024 11:17-0400 Heart rate 78 /min Linsey Hall PA Work Phone: [facility] 06-09-2024 11:17-0400 Respiratory rate 16 /min Linsey Hall PA Work Phone: [facility] 06-09-2024 11:17-0400 SaO2% (BldA) [Mass fraction] 93 % Linsey Hall PA Work Phone: [facility] 06-09-2024 11:17-0400 Systolic blood pressure 132 mm[Hg] Linsey Hall PA Work Phone: [facility] 05-29-2022 14:58-0400 Body height 170.99 [...] Type Care Provider Facility Start: 04-21-2025 ambulatory [facility] Start: 04-21-2025 End: 04-21-2025 ambulatory [facility] Start: 04-15-2025 End: 04-15-2025 Bamboo flowsheet Tree [...] Not Available Start: 04-14-2025 End: 04-14-2025 ambulatory [facility] Start: 2025 End: 2025 Bamboo flowsheet [...] Not Available Start: 12-31-2024 End: 12-31-2024 ambulatory [facility] Start: 12-27-2024 End: 12-27-2024 Bamboo flowsheet [...] End: 11-25-2024 Telephone encounter Arti Mauro RN [facility] Comment on above: transfering care Start: 11-09-2024 End: 11-12-2024 Refill Keron Arreguin PA-C Work Phone: [facility] Comment on above: Med Refill Start: 09-07-2024 End: 09-09-2024 Refill Linsey LI Work Phone: [employer] [facility] Comment on above: DDD (degenerative di sc disease), lumbar; Lumbosacral radiculopathy Start: 08-16-2024 End: 08-16-2024 ambulatory [facility] Start: 07-29-2024 End: 08-03-2024 Refill Pablo Zaragoza APRN-MANHOLE STRIPPER Work Phone: [facility] Comment on above: Med Refill Start: 06-24-2024 End: 06-24-2024 Office outpatient visit 25 minutes Gillian Taylor MD Work Phone: [facility] Comment on above: Coronary artery dise ase involving coronary bypass graft of lummi heart without angina pectoris (Primary Dx); Paroxysmal [facility] fibrillation ([facility]); Primary hypertension; Mixed hyperlipidemia; Left ventricular dysfunction Start: 06-24-2024 End: 06-24-2024 ambulatory GILLIAN TAYLOR [facility] Start: 06-23-2024 End: 06-23-2024 Telephone encounter Juana Hercules CMA [facility] Start: 06-09-2024 End: 06-09-2024 Office outpatient visit 15 minutes Linsey LI Work Phone: [employer] [facility] Comment on above: 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 with discogenic back pain and lower extremity pain (Primary Dx); Neck pain; Chronic daily headache; Tremor Start: 06-09-2024 End: 06-09-2024 ambulatory LINSEY HALL Not Available Start: 06-08-2024 End: 06-08-2024 Bamboo flowsheet Aleyda Fisher MD [facility] Start: 06-08-2024 End: 06-08-2024 Bamboo flowsheet Aleyda Fisher MD Work Phone: [facility] Start: 06-08-2024 End: 06-08-2024 Patient encounter procedure Aleyda Fisher MD Work Phone: [facility] Comment on above: Carpal tunnel syndro me of left wrist (Primary Dx) Start: 06-08-2024 End: 06-08-2024 ambulatory ALEYDA FISHER Not Available Start: 05-21-2024 End: 05-21-2024 Refill Radha Griffin RN [facility] Comment on above: Med Refill Start: 05-17-2024 End: 05-17-2024 ambulatory EMELY CANTU [facility] Comment on above: DDD (degenerative [...] 06-17-2022 AUDIT Referring Prov ider Unknown [facility] [address] Work Phone: Start: 05-29-2022 Office outpatient ne w 45 minutes Referring Provider Unknown MG-CT [facility] Work Phone: Start: 05-29-[address] Popeye Peña Faclouise lity:[facility] Start: 05-21-2022 End: 08-14-2022 ambulatory [facility] Facility: Start: 04-26-2022 End: 04-27-2022 ambulatory [facility] Facility: Start: 04-23-2018 End: 04-23-2018 Patient encounter [place] [facility] Start: 04-21-2018 End: 04-21-2018 Patient encounter [place] [facility] Start: 04-16-2018 End: 04-16-2018 Patient encounter COLLETTE VILLANUEVA [facility] Start: 04-10-2018 End: 04-10-2018 Patient encounter [place] [facility] Start: 04-08-2018 End: 04-08-2018 Patient encounter MELLISA CLARKE [facility] Patient encounter status Referri ng Provider Unknown MG-Pulm [facility] Work Phone: Procedures Date Procedure Procedure [...] bypass grafting Hx of CABG Pablo Zaragoza SUPERVISOR [employer]-MANHOLE STRIPPER Work Phone: History of coronary artery bypass grafting Hx of CABG Keron Arreguin PA-C Work Phone: Prosthetic arthropla sty of shoulder Referring Provider Unknown Total replacement of hip Ref erring Provider Unknown Plan of Treatment Date Care Activity Detail Author Start: 08-13-2033 DTaP,Tdap and Td Vaccines (2 - Td or Tdap) DTaP,Tdap and Td Vaccines (2 - Td or Tdap) [facility] Start: 10-17-2025 End: 10-17-2025 Patient encounter procedure 10/17/2025 10:15 AM EST Office Visit [facility] [address] [place] [phone] Tree Krishnan, DO [address] [place] [address] [facility] Start: 06-24-2025 Adult BMI Screening Adult BMI Screening [facility] Start: 06-24-2025 Tobacco Screening Tobacco Screening [facility] Start: 05-16-2025 End: 05-16-2025 Patient encounter procedure 05/16/2025 10:40 AM EDT Office Visit HARRIETT SANTIAGO [address] [place] [address] Linsey Hall PA [address] [place], [place] [id number] HAR[facility] SANTIAGO Start: 05-09-2025 Influenza vaccination [facility] Start: 04-15-2025 End: 04-15-2025 Patient encounter procedure [facility] Comment on above: Arrived Start: 2025 End: 2025 Patient encounter procedure 2025 9:15 AM EDT Office Visit [facility] [address] [place] [phone] Tree Krishnan, DO [address] [place] [address] Arrived [facility] Comment on above: Arrived Start: 12-23-2024 End: 12-23-2024 Patient encounter procedure 12/23/2024 10:40 AM EDT Office Visit HARRIETT SANTIAGO [address] [place] [address] Linsey Hall PA [address] [place] [address] HARRIETT SANTIAGO Start: 12-21-2024 End: 12-21-2024 Patient encounter procedure 12/21/2024 10:40 AM EDT Office Visit [facility]AM[facility] SANT[facility] [address] [place] [phone] Linsey Hall PA [address] [place] [address] [address] [address] [address] Start: 07-29-2024 Adult BMI Screening Adult BMI Screening [facility] Start: 07-29-2024 Tobacco Screening Tobacco Screening [facility] Start: 06-24-2024 End: 06-24-2025 CT Chest WO and CT angiogram Coronary arteries W contrast IV CT angiogram chest Imaging Routine Coronary artery disease involving coronary bypass graft of lummi heart without angina pectoris Expected: 06/24/2024, Expires: 06/24/2025 [facility] Comment on above: Expected: 06/24/2024, Expires: Start: 06-24-2024 End: 06-24-2025 Echo complete W/O contrast Echo complete W/O contrast Echocardiography Routine Coronary artery disease involving coronary bypass graft of lummi heart without angina pectoris Expected: 06/24/2024, Expires: 06/24/2025 [facility] Comment on above: Expected: 06/24/2024, Expires: Start: 06-24-2024 End: 06-24-2024 Patient encounter procedure 06/24/2024 2:00 PM EDT Office Visit [facility] [address] [place] [address] Gillian Taylor MD [address] [place] [address] [facility] Start: 06-09-2024 End: 06-09-2024 Patient encounter procedure 06/09/2024 11:20 AM EDT Office Visit [facility] [address] [place] [address] Linsey Hall PA [address] [place] [address] [facility] Start: 06-08-2024 End: 06-08-2024 Patient encounter procedure [facility] Comment on above: Arrived Start: 05-17-2024 End: 05-17-2024 Professional / ancillary services management 05/17/2024 8:30 AM EDT Ancillary Procedure [facility] [address] [place] [phone] Emely Cantu MD [address] [place] [address] [facility] Start: 05-09-2024 Influenza vaccination [facility] Start: 2010 Administration of varicella zoster vaccine Zoster (Shingles) Vaccine (1 of 2) [facility] Start: 2010 Pneumococcal Vaccine: 65+ Years (1 of 1 - PCV) Pneumococcal Vaccine: 65+ Years (1 of 1 - PCV) [facility] Start: 1979 DTaP,Tdap and Td Vaccines (1 - Tdap) DTaP,Tdap and Td Vaccines (1 - Tdap) [facility] Start: 1978 Adult BMI Follow Up Plan Adult BMI Follow Up Plan [facility] Start: 1972 Depression Screening Depression Screening [facility] Start: 1960 Screening for malignant neoplasm of colon [facility] End: 06-24-2025 CBC panel - Blood by Automated count CBC Lab Routine Paroxysmal atrial fibrillation ([facility]) 1 Occurrences starting 06/24/2024 until 06/24/2025 [facility] [employer] Comment on above: 1 Occurrences starting 06/24/2024 until 06/24/2025 End: 06-24-2025 Comprehensive metabolic 2000 panel - Serum or Plasma CMP Lab Routine Primary hypertension 1 Occurrences starting 06/24/2024 until 06/24/2025 [facility] Comment on above: 1 Occurrences starting 06/24/2024 until 06/24/2025 End: 06-24-2025 Lipid panel Lipid panel Lab Routine Mixed hyperlipidemia 1 Occurrences starting 06/24/2024 until 06/24/2025 [facility] Work Phone: Comment on above: 1 Occurrences starting 06/24/2024 until 06/24/2025 Immunizations Immunization Date Immunization Notes Care Provider [facility] 08-13-2023 Influenza, injectabl e, Madin Fely Canine Kidney, preservative free, quadrivalent Tree Krishnan DO Work Phone: [facility] 08-13-2023 tetanus toxoid, reduced diphtheria toxoid, and acellular pertussis vaccine, adsorbed Tree Krishnan DO Work Phone: [facility] 08-13-2023 influenza virus vaccine, unspecified formulation Yuri Chapa MA [facility] 05-23-2021 influenza, high dose seasonal, preservative-free Yuri Chapa MA [facility] 05-23-2021 influenza virus vaccine, unspecified formulation Elise Borjas MD Work Phone: [facility] [employer] [facility] 10-25-2020 Pfizer Purple Cap SARS-CoV-2 Vaccination Yuri Chapa MA [facility] 09-20-2020 Pfizer Purple Cap SARS-CoV-2 Vaccination Yuri Chapa MA [facility] Payers Date Payer Category Payer Medicare (Managed Care) [employer] [id number] 2019 Medicare [id number] 2019 Medicare [facility] MEDIC[facility] [id number] 1960 Unknown [id number]. 2.356 1960 Unknown [id number] [id number]. 2.593 1960 Unknown [id number] [id number]. 2.593 1960 Unknown [id number] 2.16.840.1.081943.3.579. 2.593 1960 Unknown [id number] 2.16.840.1.765340.3.579. 2.593 1960 Unknown [id number] [id number]. 2.1286 1960 Unknown [id number] 2.16.840.1.939041.3.579. 2.1286 1960 Unknown [id number] [id number]. 2.1259 1960 Unknown [id number] [id number]. 2.9 1960 Unknown [id number] 2.16.840.1.217682.3.579. 2.9 1960 Unknown [id number] [id number]. 2.9 1960 Unknown [id number]. 2.1259 1959 Medicare [id number] Unknown Social History Date Type Detail Facility Start: 03-15-2024 End: 04-15-2025 Social alcohol use Social alcohol use [facility] Start: 05-20-2022 End: 03-15-2024 Tobacco smoking status VTIS Ex-smoker [facility] Start: 09-08-1974 End: 09-08-2009 History of tobacco use Current smoker [facility] Start: 09-08-1974 End: 09-08-2009 History of tobacco use Cigarette Smoker [facility] Start: 05-20-2022 End: 03-15-2024 Tobacco use and exposure Smokeless tobacco non-user [facility] Start: 03-15-2024 End: 04-15-2025 Alcoholic beverage intake Lifetime non-drinker (finding) [facility] Start: 03-15-2024 End: 04-15-2025 Tobacco use panel [facility] Start: 02-13-2023 Alcohol Comment ocassionally [facility] Start: 1960 Sex assigned at Male [facility] Start: 02-21-2023 Gender identity Identifies as male gender (finding) [facility] Start: 07-29-2023 End: 06-24-2024 Alcoholic beverage intake Ex-drinker (finding) [facility] Within the past 12 months we worried whether our food would run out before we got money to buy more. Never True [facility] Start: 05-20-2022 Alcohol Comment ocassional [facility] Start: 1960 Sex assigned at Not on file P [facility] Start: 03-22-2022 Sex Male (finding) [facility] Clinical Notes 04-30-2024 to 04-15-2025 Tree [...] tube with replacement documented in this encounter [facility] 04-14-2025 Note [place] [facility] [...] procedure, paroxysmal atrial fibrillation, s/p ablation in [place], thoracic aortic aneurysm, left ventricle dysfunction, hypertension, hyperlipidemia COPD, prior tobacco and alcohol abuse He used to follow with [facility] cardiology. He states that overall [...] , Rfl: theop (more content not included)... [facility] 2025 History of Present illness Narrative Subjective [...] physician and subspecialist documented in this encounter [facility] 12-31-2024 Note [place] [facility] Note Reason for cardiology [...] procedure, paroxysmal atrial fibrillation, s/p ablation in [place], thoracic aortic aneurysm, left ventricle dysfunction, hypertension, hyperlipidemia COPD, prior tobacco and alcohol abuse He used to follow with [facility] cardiology. He states that overall [...] developed, in no (more content not included)... [facility] 12-27-2024 History of Present illness Narrative Subjective Elise Tabor is a 64 y.o. year old male Chief Complaint Patient presents with Back Pain Past Medical History: Diagnosis Date Anemia Atrial fibrillation ([facility]) Celiac disease ([facility]) 03/04/2019 Cervicalgia 04/08/2018 Chronic obstructive lung disease ([facility]) 01/22/2018 Chronic obstructive pulmonary disease (COPD) ([facility]) Coronary artery disease ([facility]) Emphysema of lung ([facility]) H/O hernia repair Headache in back of head 04/08/2018 Peripheral polyneuropathy 06/27/2023 Pneumonia Rheumatoid arthritis ([facility]) Sinus tachycardia 01/22/2018 Past Surgical History: Procedure [...] triceps, wrist extensors, wrist extensors, wrist flexor, wire wrapper machine operator strength 5/5. LUE Strength deltoid, biceps, triceps, wrist extensors, wrist extensors, wrist flexor, wire wrapper machine operator strength 5/5. RLE Strength illopsoas, quadriceps, [...] or worsening symptoms documented in this encounter [facility] 12-20-2024 Telephone encounter Note Patient is in need of refill, appt had to be rescheduled due to provider being out. Please send to [facility] in [place] [facility] 12-20-2024 Miscellaneous Notes Patient is in need of refill, appt had to be rescheduled due to provider being out. Please send to [facility] in [place] documented in this encounter [facility] 11-25-2024 Miscellaneous Notes Pt calls to let us know he is switching store shopper to a group in [place] because he does not like seeing a different doctor every time he comes here. Explained to him that we do try to keep pt's with same doc but it does not always work out that way. Pt understood but has already seen the the other group. documented [facility] this encounter [facility] 11-25-2024 Telephone encounter Note Pt calls to let us know he is switching store shopper to a group in [place] because he does not like seeing a different doctor every time he comes here. Explained to him that we do try to keep pt's with same doc but it does not always work out that way. Pt understood but has already seen the the other group. [facility] 09-09-2024 Telephone encounter Note 06/09/2024 Continue Lyrica 150mg PO TID for neuropathic pain [facility] reviewed. Last filled 05/17/2024 for 90 day supply. Due 08/15/2024 [facility] 09-09-2024 Miscellaneous Notes 06/09/2024 Continue Lyrica 150mg PO TID for neuropathic pain [facility] reviewed. Last filled 05/17/2024 for 90 day supply. Due 08/15/2024 documented in this encounter [facility] 08-16-2024 Note [place] [facility]iology [facility] Note Reason for cardiology consult: Establish new store shopper, CAD, congestive heart failure, ascending aortic aneurysm Chief Complaint: Dyspnea on exertion HPI: Elise Tabor is a 64 y.o. male with history of coronary artery disease and coronary artery bypass surgery and maze procedure, paroxysmal atrial fibrillation, s/p ablation in [place], thoracic aortic aneurysm, left ventricle dysfunction, hypertension, hyperlipidemia COPD, prior tobacco and alcohol abuse He used to follow with [facility] cardiology. He states that overall [...] or gallops. RESPIR (more content not included)... [facility] 07-29-2024 Miscellaneous Notes [facility] 06/24/24 documented in this encounter [facility] 07-29-2024 Telephone encounter Note [facility] 06/24/24 [facility] 06-[facility]2024 History of Present illness Narrative Elise Tabor Date of visit: 06/24/2024 Date of : 1960 Age: 64 y.o. Patient Active Problem List Diagnosis Coronary artery disease involving coronary bypass graft of lummi heart without angina pectoris Paroxysmal atrial fibrillation (CMS-HCC) Thoracic aortic aneurysm without rupture ([facility]) Hx of CABG History of maze procedure [...] 65 mg by mouth daily with breakfast. kzjumkscuds-pyocddnna-ldqgmlee (TRELEGY ELLIPTA) 200-62.5-25 mcg blister with device [...] atrial fibrillation despite the reported ablation in [place], continue on anticoagulation. We discussed this again [...] artery disease involving coronary bypass graft of lummi heart without angina pectoris - POCT EKG - CT angiogram chest; Future - Echo complete W/O contrast; Future 2. Paroxysmal atrial fibrillation (CMS-HCC) - CBC; Future 3. Primary hypertension - CMP; Future 4. Mixed hyperlipidemia - Lipid panel; Future 5. Left ventricular dysfunction 1. ASCVD without angina --history of CABG with Maze --[facility] to the [facility] 2015 in [place] 2. Cardiomyopathy -ischemic versus related to alcohol [...] APRN-CHAO Referring Physician: Kacie Del Real MD [address] [place] [address] documented in this encounter [facility] 06-24-2024 Instructions Gillian Taylor MD - 06/24/2024 2:00 PM EDT Laboratory studies CTA of the aorta Echocardiogram documented in this encounter [facility] 06-23-2024 Miscellaneous Notes Called patient to remind them to bring their most current copy of their medication list with them to their appt. Patient verbalizes understanding. documented in this encounter [facility] 06-23-2024 Telephone encounter Note Called patient to remind them to bring their most current copy of their medication list with them to their appt. Patient verbalizes understanding. [facility] 06-09-2024 History of Present illness Narrative Subjective Elise Tabor is a 64 y.o. year old male Chief Complaint Patient presents with Back Pain Neck Pain Tremors Past Medical History: Diagnosis Date Anemia Atrial fibrillation ([facility]) Celiac disease ([facility]) 03/04/2019 Cervicalgia 04/08/2018 Chronic obstructive lung disease ([facility]) 01/22/2018 Chronic obstructive pulmonary disease (COPD) ([facility]) Coronary artery disease ([facility]) Emphysema of lung ([facility]) H/O hernia repair Headache in back of head 04/08/2018 Peripheral polyneuropathy 06/27/2023 Pneumonia Rheumatoid arthritis ([facility]) Sinus tachycardia 01/22/2018 Past Surgical History: Procedure [...] handles -admits hand weakness -some trouble with wire wrapper machine operator ROS Review of Systems Constitutional: Negative [...] triceps, wrist extensors, wrist extensors, wrist flexor, wire wrapper machine operator strength 5/5. LUE Strength deltoid, biceps, triceps, wrist extensors, wrist extensors, wrist flexor, wire wrapper machine operator strength 5/5. RLE Strength illopsoas, quadriceps, [...] or worsening symptoms documented in this encounter [facility] 06-08-2024 History of Present illness Narrative Images from the original note were not included. Reason for Appointment: EMG Patient: Elise Tabor : 1960 EMG Computer: real trends Referring Physician: Roland Bill PA-C EMG: WALTER accounting support specialist: Vera Zuñiga CMA Office Location: [place] Reason for EMG: c/o pain and paresthesia in the arm from the shoulder down. No Hx of DM, takes Eliquis and ASA Comments: Procedure explained to the patient who expressed understanding. documented in this encounter [facility] 05-14-2024 Miscellaneous Notes Phoned pt to advise that appt scheduled for 05/17/2024 is the date that his EM will be sent out and is NOT an actual appt. Verbalized understanding. documented in this encounter [facility] 05-14-2024 Telephone encounter Note Phoned pt to advise that appt scheduled for 05/17/2024 is the date that his EM will be sent out and is NOT an actual appt. Verbalized understanding. 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 Please advise. Thank you! 3 boxes of Eliquis in sample cabinet for patient potato picker. This is something we would need [...] patient to call us back to review CONTRACT GRAPHIC DESIGNER's response. 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 Please advise. Thank you! 3 boxes of Eliquis in sample cabinet for patient potato picker. [facility] [employer] 04-30-2024 Telephone encounter Note This is something [...] further. Would continue Eliquis in the meantime. [facility] [employer] [facility] 04-30-2024 Telephone encounter Note Amml asking patient to call us back to review CONTRACT GRAPHIC DESIGNER's response. [facility] Evaluation note Diagnosis Carpal tunnel syndrome of left wrist- Primary documented in this encounter [facility] Diagnosis Degeneration of intervertebral disc of lumbar region with discogenic back pain and lower extremity pain- Primary Neck pain Cervicalgia Chronic daily headache Headache Tremor Abnormal involuntary movements documented in this encounter [facility]* Diagnosis DDD (degenerative disc disease), lumbar Degeneration of lumbar or lumbosacral intervertebral disc Lumbosacral radiculopathy Thoracic or lumbosacral neuritis or radiculitis, unspecified documented in this encounter [facility]* Diagnosis DDD (degenerative disc disease), lumbar Degeneration of lumbar or lumbosacral intervertebral disc Lumbosacral radiculopathy Thoracic or lumbosacral neuritis or radiculitis, unspecified documented in this encounter [facility]* Diagnosis Coronary artery disease involving coronary bypass graft of lummi heart without angina pectoris Hx of CABG Postsurgical aortocoronary bypass status Paroxysmal atrial fibrillation (CMS-HCC) Atrial fibrillation Aneurysm of ascending aorta without rupture (CMS-HCC) History of maze procedure [facility] Diagnosis Coronary artery disease involving coronary bypass graft of lummi heart without angina pectoris Hx of CABG Postsurgical aortocoronary bypass status Paroxysmal atrial fibrillation (CMS-HCC) Atrial fibrillation Aneurysm of ascending aorta without rupture (CMS-HCC) History of maze procedure [facility] Diagnosis Coronary artery disease involving coronary bypass graft of lummi heart without angina pectoris Paroxysmal atrial fibrillation (CMS-HCC) Atrial fibrillation Aneurysm of ascending aorta without rupture (CMS-HCC) Hx of CABG 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 [facility] Diagnosis Coronary artery disease involving coronary bypass graft of lummi heart without angina pectoris- Primary Paroxysmal atrial fibrillation (CMS-HCC) Atrial fibrillation Primary hypertension Unspecified essential hypertension Mixed hyperlipidemia Left ventricular dysfunction Left heart failure [facility] Diagnosis Coronary artery disease involving coronary bypass graft of lummi heart without angina pectoris Paroxysmal atrial fibrillation (CMS-HCC) Atrial fibrillation Aneurysm of ascending aorta without rupture (CMS-HCC) Hx of CABG 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 [facility] Diagnosis Coronary artery disease involving coronary bypass graft of lummi heart without angina pectoris Hx of CABG Postsurgical aortocoronary bypass status Paroxysmal atrial fibrillation (CMS-HCC) Atrial fibrillation Aneurysm of ascending aorta without rupture ([facility]) History of maze procedure documented in this [facility] SystemEvaluation note* Diagnosis DDD (degenerative disc disease), [...] use of 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 documented in this encounter [facility] HealthcareHistory of Present illness NarrativeMrLeyla Tabor is referred for consideration of LVRS. 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 He is on 3 L nasal cannula oxygen chronically. He is set to begin pulmonaryrehabilitation.[facility] Work Phone: History of Present illness NarrativeMrLeyla Tabor is referred for consideration of LVRS. 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 He is on 3 L nasal cannula oxygen chronically. He is set to begin pulmonaryrehabilitation.[facility] Work Phone: History of Present illness NarrativeMrLeyla Tabor is referred for consideration of LVRS. 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 He is on 3 L nasal cannula oxygen chronically. He is set to begin pulmonaryrehabilitation.[facility] Work Phone: InstructionsNot on filedocumented in [...] Aleyda [place] MD [address] [place] [address] Referral ID Status Reason Start Date Expiration Date V isits Requested Visits Authorized [id number] Pending Review 06/08/2024 12/05/2024 1 1 Additional Source Comments (unrecognized sect ion and content) No Status Records FoundNo Status Records FoundNo Status Records FoundNo Status Records FoundNo Status Records FoundNo Status Records FoundNo Status Records Found INFORMATION SOURCE (unrecogn ized section and content) DATE CREATED AUTHOR 07/04/2018 [facility] DATE CREATED AUTHOR AUTHOR'S ORGANIZ ATION 06/09/2022 [facility] DATE CREATED AUTHOR AUTHOR'S ORGANIZ ATION 06/09/2022 [facility] DATE CREATED AUTHOR AUTHOR'S ORGANIZ ATION 02/14/2023 [facility] DATE CREATED AUTHOR AUTHOR'S ORGANIZ ATION 07/06/2024 [facility] DATE CREATED AUTHOR AUTHOR'S ORGANIZ ATION 04/17/2025 [facility] EPIC DATE CREATED AUTHOR AUTHOR'S ORGANIZ ATION 04/25/2025 [facility] Care Teams (unrecognized sec tion and content) Distillery Manager Relationship Specialty Start Date End Date Risa Mcnulty PERSONAL CARE AIDE [address] [place] [address] Referring Physician Family Medicine 03/15/24 Distillery Manager Relationship Specialty Start Date End Date Risa Mcnulty PERSONAL CARE AIDE [address] [place] [address] Referring Physician Family Medicine 03/15/24 Distillery Manager Relationship Specialty Start Date End Date Risa Mcnulty NP [address] [place] [address] Referring Physician Family Medicine 03/15/24 Distillery Manager Relationship Specialty Start Date End Date Risa Mcnulty NP [address] [place] [address] Referring Physician Family Medicine 03/15/24 Distillery Manager Relationship Specialty Start Date End Date Risa Mcnulty NP [address] [place] [address] Referring Physician Family Medicine 03/15/24 Distillery Manager Relationship Specialty Start Date End Date Kacie Del Real MD [address] [place] [address] PCP - General Family Medicine 03/22/22 Distillery Manager Relationship Specialty Start Date End Date Kacie Del Real MD [address] [place] [address] PCP - General Family Medicine 03/22/22 Distillery Manager Relationship Specialty Start Date End Date Kacie Del Real MD [address] [place] [address] PCP - General Family Medicine 03/22/22 Distillery Manager Relationship Specialty Start Date End Date Kacie Del Real MD [address] [place] [address] PCP - General Family Medicine 03/22/22 Distillery Manager Relationship Specialty Start Date End Date Kacie Del Real MD [address] [place] [address] PCP - General Family Medicine 03/22/22 Distillery Manager Relationship Specialty Start Date End Date Risa Mcnulty APRN-WORKING MANAGER [address] [place] [address] PCP - General Family Medicine 06/24/24 Distillery Manager Relationship Specialty Start Date End Date Risa Mcnulty APRN-WORKING MANAGER [address] [place] [address] PCP - General Family Medicine 06/24/24 Distillery Manager Relationship Specialty Start Date End Date Risa Mcnulty, SUPERVISOR FABRICATION-WORKING MANAGER [address] [place] [address] PCP - General Family Medicine 06/24/24 Distillery Manager Relationship Specialty Start Date End Date Noam Risa SUPERVISOR FABRICATION-WORKING MANAGER [address] [place] [address] PCP - General Family Medicine 06/24/24 Distillery Manager Relationship Specialty Start Date End Date Risa Mcnulty PERSONAL CARE AIDE [address] [place] [address] Referring Physician Family Medicine 03/15/24 Distillery Manager Relationship Specialty Start Date End Date Risa Mcnulty NP [address] [place] [address] Referring Physician Family Medicine 03/15/24 Distillery Manager Relationship Specialty Start Date End Date Risa Mcnulty NP [address] [place] [address] Referring Physician Family Medicine 03/15/24 Distillery Manager Relationship Specialty Start Date End Date Risa Mcnulty NP [address] [place] [address] Referring Physician Family Medicine 03/15/24 Reason for Visit (unrecogniz ed section and content) Specialty Diagnoses / Procedures Referred By Tonya t Referred To Contact Neurology Diagnoses LUE EMG paresthesias of hand, numbness and tingling, ref by Wei Bill PACr20.2 Procedures WA NERVE CONDUCTION STUDIES 9-10 STUDIES [place] NEEDLE EMG EA EXTREMTY W/PARASPINL [place] [address] [place] [address] Aleyda [place] MD [address] [place] [address] Referral ID Status Reason Start Date Expiration Date V isits Requested Visits Authorized [id number] Closed Perform Procedure 06/08/2024 12/05/2024 1 1 [...] BE BASED ON THE PRIMARY CLINICAL RECORDS. [employer] provides no warranty or guarantee of the accuracy or completeness of information in this document.
[2025-05-27 13:31] LABS: Alanine Aminotransferase 31 U/L (16-63); Aspartate Amino Transferase 16 U/L (15-37); Cholesterol 138 mg/dL (<=200); HDL Cholesterol 39 mg/dL (40-60); Triglycerides 115 mg/dL (<=150); VLDL CHOLESTEROL 23.0 mg/dL
== END 2025-05-27 12:30 | disposition home or self-care (01) ==
LOC: LAB 12:30
PROVIDERS: PCP Family Medicine; Visit Provider Internal Medicine Cardiovascular Disease
DX: E78.2 Mixed hyperlipidemia (principal)
CPT/HCPCS: 36415; 80061; 84450; 84460

== ENCOUNTER 2025-06-14 09:46 | Outpatient (OUT) | payer MEDICARE, SELFPAY ==
--- OUTSIDE RECORDS SUMMARY | 2012-03-06 05:34 | XMS_ITS | Continuity of Care Document ---
Author Organization [facility] Address [address] [place] [address] [place] [address] Phone Care Team Providers Care Coding Auditor Name Role Phone JUAN FINK MD Unavailable [...] on Encounter [facility], [address] [place] [address], [address] [place] [address], tel:[phone] [facility] No Information 2 DANAE MARTINEZ. [address] [place] [address], [address] [place] [address], . tel:[phone] [facility], [address] [place] [address], [address] [place] [address], tel:[phone] [facility] No Information 2 DANAE MARTINEZ. [address] [place] [address], [address] [place] [address], . tel:[phone] Offic/outpt E&m Estab Minor 10 [facility], [address] [place] [address], [address] [place] [address], tel:[phone] [facility] No Information 1 DANAE MARTINEZ. [address] [place] [address], [address] [place] [address], . tel:[phone] [facility], [address] [place] [address], [address] [place] [address], tel:[phone] [facility] No Information 1 DANAE MARTINEZ. [address] [place] [address], [address] [place] [address], . tel:[phone] [facility], [address] [place] [address], [address] [place] [address], tel:[phone] [facility] No Information Oct-0 3-201 1 DANAE LEALPELONLAKEISHA. [address] [place] [address], [address] [place] [address], . tel:[phone] [facility], [address] [place] [address], [address] [place] [address], tel:[phone] [facility] No Information Sep-2 2-201 1 BERYL ABBOTT. [address] [place] [address], [address] [place] [address], . tel:[phone] Referring Provider: Nigel Carvajal, [address] [place] [address], [facility]. tel:[phone] [facility], [address] [place] [address], [address] [place] [address], tel:[phone] [facility] No Information Sep-2 1-201 1 PANDA IBRAHIM. [address] [place] [address], [address] [place] [address], . tel:[phone] Referring Provider: Nigel Carvajal, [address] [place] [address], [facility]. tel:[phone] [facility], [address] [place] [address], [address] [place] [address], tel:[phone] [facility] No Information Sep-0 7-201 1 Samreen Ochoa. [address] [place] [address], [address] [place] [address], . tel:[phone] Referring Provider: Nigel Carvajal, [address] [place] [address], [facility]. tel:[phone] Offic/outpt E&m Estab Low-mod [facility], [address] [place] [address], [address] [place] [address], tel:[phone] [facility] No Information Oct-0 8-200 9 BERYL ABBOTT. [address] [place] [address], [address] [place] [address], . tel:[phone] Offic/outpt E&m Estab Low-mod [facility], [address] [place] [address], [address] [place] [address], tel:[phone] [facility] No Information Nov-2 6-200 7 KIBILOSÁLVARO MILENA. [address] [place] [address], [address] [place] [address], . tel:[phone] [facility], [address] [place] [address], [address] [place] [address], tel:[phone] [facility] No Information 5-200 7 KIBILOSKI MILENA. [address] [place] [address], [address] [place] [address], [place]. tel:[phone] [facility], [address] [place] [address], [address] [place] [address], tel:[phone] [facility] No Information Dec-0 4-200 6 KIBILOSÁLVARO MILENA. [address] [place] [address], [address] [place] [address], . tel:[phone] [facility], [address] [place] [address], [address] [place] [address], tel:[phone] [facility] In Patient No Information 7-200 6 KIBILOSÁLVARO MILENA. [address] [place] [address], [address] [place] [address], . tel:[phone] [facility], [address] [place] [address], [address] [place] [address], tel:[phone] [facility] No Information January-2 5-200 6 KIBILOSÁLVARO MILENA. [address] [place] [address], [address] [place] [address], [place]. tel:[phone] Referring Provider: Jaquan Dowell, [address] [place], [place], [facility]. tel:[phone] [facility], [address] [place] [address], [address] [place] [address], tel:[phone] [facility] No Information Oct-0 2-200 3 KIBILOSKI MILENA. [address] [place] [address], [address] [place] [address], [place]. tel:[phone] [facility], [address] [place] [address], [place], [place], [id number], [place] tel:[phone] [facility] No Information No Information Family History Family Member Type Diagnosis Age At Onset No Information Payers Payer name Insurance type Covered green party ID Saleem ya(s) [facility] [id number] Medicare Part B [id number] Social History Type Description Quantity Date Captured Comments Sex Male Smoking Status No Information Chief Complaint And Reason For Visit No Information Reason For Referral Reason For Referral No Information Plan Of Treatment Date Type Action Status Future Order: Lab Order Cervical W/o Contrast ([id number]), Appointment on: , Sent on: Sent Future Order: Lab Order L Spine 3VW w/spot ([id number]), Sent on: Sent Future Order: Lab Order Thoracic Spine 2VW ([id number]), Sent on: Sent Future Order: Lab Order C Spine 2VW ([id number] 0), Sent on: Sent Future Order: Lab Order Lumbar W /o Contrast ([id number]), Appointment on: , Sent on: Sent Future Order: Lab Order Thoracic W/o Contrast ([id number]), Appointment on: , Sent on: Sent Future Order: Lab Order Hip 2 VW Left ([id number]), Sent on: Sent History Of Present Illness Encounter Date Complaint History Of Prese nt Illness No Information Functional Status Date Functional Assessmen t No Information Instructions Date Instruction Additional Infor mation No Information Assessments Type Assessment Date No Information Patient Care Teams Name Effective Dates (start - stop) Status Members No Information
--- OUTSIDE RECORDS SUMMARY | 2025-06-14 09:51 | XMS_ITS | Clinical Summary ---
Author Organization [facility] Healthcare Address [address] [place] [address] Care Team Providers Care Drafter Civil Engineering Name Role Phone Pauly Santacruz PAD MACHINE OPERATOR Unavailable Allergies Active Allergy Reactions Criticality Noted [...] disease invo lving coronary bypass graft of bois [place] heart without angina pectoris 05/20/2022 History of maze procedure 05/20/2022 Hx of CABG 05/20/2022 Paroxysmal atrial fibrillation 05/20/2022 Thoracic aortic aneurysm without rupture 022 Resolved Problems Problem Noted Date Diagnosed Date Resolved Date Centrilobular emphysema 03/25/202503/08 Overview (2025): Noted by [facility] last documented on [id number] Hypertensive heart disease with heart failure 03/25/20 25 2025 Overview (2025): Noted by [facility] last documented on [id number] Chronic anticoagulation 08/16/202403/08 [...] Visit [facility] [address] [place] [address] Tree Carmona DO Otorrhea of right ear (Primary Dx); Dysfunction of right eustachian tube; Chronic anticoagulation 04/15/2025 Bamboo flowsheet [facility] [address] [place] [address] Tree Carmona, 04/15/2025 Travel 2025 9:15 AM EDT Office Visit [facility] [address] [place] [address] Tree Carmona, Dysfunction of right eustachian tube (Primary Dx); Otorrhea of right ear; Chronic anticoagulation 2025 Bamboo flowsheet [facility] [address] [place] [address] Tree Carmona, 2025 Travel 03/21/2025 Telephone [facility] [place] [facility] [address] [place] [address] Tree Carmona, DO from Last 3 Months [...] Care Team (Late st Contact Info) Description 06/23/2025 9:30 AM EDT Office Visit [facility] [address] [facility] [address] [place] [id number] Yuri Rowe DPM [address] [facility] [address] [place] [address] 10/17/2025 10:15 AM EST Office Visit [facility] [address] [place] [address] Tree Carmona DO [address] [place] [address] Health Maintenance Due Date Last Done Comments CT Colonography 1960 Colonoscopy 1960 Colorectal Cancer Screening 1960 FIT-DNA 1960 FIT 1960 FOBT 1960 Sigmoidoscopy 1960 Pneumococcal Vaccine: 65+ Ye ars (1 of 1 - PCV) 2010 Influenza Vaccine (#1) 2025 08/13/2023, 2020 Insurance [facility] MEDICARE ADVANTAGE Care Teams Drafter Civil Engineering Relationship Specialty Start Date End Date Pauly Santacruz NP [address] [place] [address] Referring Physician Family Medicine 03/15/24
--- OUTSIDE RECORDS SUMMARY | 2025-06-14 09:51 | XMS_ITS | Patient Health Record ---
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/21/19 14 Active confirmed Problem Iron deficiency anemia (89923600) Iron deficiency anemia, unspecified (D50.9) 03/09/20 13 Active confirmed Problem Testicular hypofunction (075972146) Testicular hypofunction (E29.1) 11/02/19 14 Active confirmed Problem Sleep apnea (35900721) Sleep apnea, unspecified (G47.30) 11/26/19 14 Active confirmed Problem Hereditary disorder of nervous system (616470477) Hereditary and idiopathic neuropathy, unspecified (G60.9) 12/04/19 14 Active confirmed Problem Angina pectoris (702183487) Angina pectoris, unspecified (I20.9) 11/09/19 16 Active confirmed Problem Cardiomyopathy (56055292) Cardiomyopathy, unspecified (I42.9) 08/27/20 12 Active confirmed Problem Heart failure (01195080) Heart failure, unspecified (I50.9) 03/09/20 14 Active confirmed Problem Dilatation of aorta (00185410) Thoracic aortic ectasia (I77.810) 12/11/19 16 Active confirmed Problem Celiac disease (508874652) Celiac disease (K90.0) Active confirmed Problem Intestinal malabsorption (260243476) Intestinal malabsorption, unspecified (K90.9) 09/27/19 14 Active confirmed Problem Hemoptysis (06005858) Hemoptysis (R04.2) 12/21/19 14 Active confirmed Problem Shortness of breath (203291016) Shortness of breath (R06.02) 11/09/19 16 Active confirmed Problem Fatigue (91781311) Other fatigue (R53.83) 11/09/19 14 Active confirmed Problem Solitary pulmonary nodule (345146120) Solitary pulmonary nodule (R91.1) 12/31/19 14 Active confirmed Problem Abnormal results of cardiovascular function studies (080349688) Abnormal result of other cardiovascular function study (R94.39) 11/30/19 16 Active confirmed Plan Of Treatment No Information Insurance Providers Payer Name Payer Address Payer Phone Subscriber Number Group Number Insured Name Patient Relationship to Insured Coverage Start Date Coverage End Date [employer] [address] [address] [place] [address] [id number] Nikunj Causey Self - patient is the insured Medical (General) History Surgical History Surgery Date(Month/Year) 3 finger amputation,hernia, Total Hip Ar throplasty, Past SurgHx Till:04/22/2014
--- OUTSIDE RECORDS SUMMARY | 2025-06-14 09:52 | XMS_ITS | Patient Health Record ---
Author Organization [facility], [facility], [facility] Address [address] [place] [address] Support Name Relationship Address Phone Nikunj Causey Guarantor Unknown Reason For Referral No Information Problems Problem Type SNOMED Code ICD Code Onset Dates Problem Status W/U Status Risk Notes Problem Encntr screen for infections w sexl mode of transmiss (Z113) 03/13/2017 Active confirmed Plan Of Treatment No Information
--- OUTSIDE RECORDS SUMMARY | 2025-06-14 09:52 | XMS_ITS | Encounter Summary ---
Author Organization [facility] Address [id number] [address] [place] [address] Care Team Providers Care Licensing Registration Examiner Name Role Phone Pauly Santacruz MANAGER FAMILY-DIRECTOR OF IN SERVICE EDUCATION Primary Care Provider +1- [phone] Reason for Visit * Reason Comments Med Change Request Encounter Details Date Type Department Care Team (Late st Contact Info) Description 02/07/2025 Refill [facility] [address] [place] [address] Pablo Zaragoza, VIC-COMMUNITY PRODUCT SPECIALIST [address] [place] [address] Med Change Request Social History Tobacco Use [...] artery disease involving coronary bypass graft of [place] heart without angina pectoris Hx of CABG Postsurgical aortocoronary bypass status Paroxysmal atrial fibrillation ([facility]) Atrial fibrillation Aneurysm of ascending aorta without rupture History of maze procedure documented in this encounter Care Teams Licensing Registration Examiner Relationship Specialty Start Date End Date Pauly Santacruz APRN-DIRECTOR OF IN SERVICE EDUCATION [address] [place] [address] PCP - General Family Medicine 06/24/24 documented as of this encounter
--- OUTSIDE RECORDS SUMMARY | 2025-06-14 09:52 | XMS_ITS | Encounter Summary ---
[facility] Address [id number] [address] [place] [address] Care Team Providers Care Burning Machine Operator Name Role Phone Pauly Santacruz AUTOMATED EQUIPMENT ENGINEER TECHNICIAN-REVIT DRAFTER Primary Care Provider +1- [phone] Reason for Referral * Cardiology (Routine) - Closed Specialty Diagnoses / Procedures Referred By Contac t Referred To Contact Diagnoses Paroxysmal atrial fibrillation ([facility]) Procedures Wireless Telemetry (In Office) Syed Cantu MD [address] [place] [address] Phone: tel: fax: Referral ID Status Reason Start Date Expiration Date Visits Re quested Visits Authorized [id number] Closed 05/03/2024 05/03/2025 1 1 Encounter Details Date Type Department Care Team (Late st Contact Info) Description 05/03/2024 Orders Only [facility] [address] [facility] [address] [place] [address] Kenisha Manning RN Paroxysmal atrial fibrillation ([facility]) (Primary Dx) Social History Tobacco Use Types [...] fibrillation documented in this encounter Care Teams Burning Machine Operator Relationship Specialty Start Date End Date Pauly Santacruz APRN-FNP [address] [place] [address] PCP - General Family Medicine 06/24/24 documented as of this encounter
--- OUTSIDE RECORDS SUMMARY | 2025-06-14 09:52 | XMS_ITS | Clinical Summary ---
Author Organization [facility] Address [address] [place] [address] Phone Care Team Providers Care Software Developer Mid Level Name Role Phone Unavailable Primary Care Provider [...] 05/29/2022 2:58 PM EDT Plan of Treatment Not on file
--- OUTSIDE RECORDS SUMMARY | 2025-06-14 09:52 | XMS_ITS | Encounter Summary ---
Author Organization [facility] Address [id number] [address] [place] [address] Care Team Providers Care Meter Readers Supervisor Name Role Phone Pauly Santacruz DIRECTOR OF CLOUD SERVICES-REFERRAL COORDINATOR Primary Care Provider +1- [phone] Encounter Details Date Type Department Care Team (Late st Contact Info) Description 06/25/2024 Orders Only [facility] [address] [facility] [address] [place] [address] External, Scanning Provider Social History [...] ECG ORDERABLES Final Result Performing Organization Address City/State/[facility] Co de Phone Number MANUALLY TRANSCRIBED RESULTS * ECG 12 lead (06/25/2024 8:13 AM EDT) us Scanning Provider External ECG ORDERABLES Final Result Performing Organization Address City/State/[facility] Co de Phone Number MANUALLY TRANSCRIBED RESULTS documented in this encounter Visit Diagnoses Not on filedocumented in this encounter Care Teams Meter Readers Supervisor Relationship Specialty Start Date End Date Pauly Santacruz APRN-FNP [address] [place] [address] PCP - General Family Medicine 06/24/24 documented as of this encounter
--- OUTSIDE RECORDS SUMMARY | 2025-06-14 09:52 | XMS_ITS | Clinical Summary ---
Author Organization [employer] [facility] Address [id number] [address] [place] [address] Care Team Providers Care Paper Counter Name Role Phone Pauly Santacruz ALTERATIONS EXPERT-ACADEMIC INTERN Primary Care Provider +1- [phone] Allergies Active Allergy Reactions Criticality Noted Date [...] artery disease involving coronary bypass graft of [place] heart without angina pectoris,Paroxys mal atrial fibrillation [...] artery disease involving coronary bypass graft of [place] heart without angina pectoris,Hx of CABG,Paroxysmal atrial [...] artery disease involving coronary bypass graft of [place] heart without angina pectoris,Hx of CABG,Paroxysmal atrial [...] artery disease involving coronary bypass graft of [place] heart without angina pectoris,Paroxys mal atrial fibrillation [...] artery disease involving coronary bypass graft of [place] heart without angina pectoris,Hx of CABG,Paroxysmal atrial [...] disease invo lving coronary bypass graft of [place] heart without angina pectoris 05/20/2022 Paroxysmal atrial [...] Health Maintenance Due Date Last Done Comments Statin Use: Cardiovascular 1960 Depression Screening 1972 Adult BMI Follow Up Plan 1978 Zoster (Shingles) Vaccine (1 of 2) 2010 Abdominal Aortic Aneurysm (AAA) Screen 2025 Fall Risk Screening 2025 Influenza Vaccine 05/09/2025 08/13/2023, 05/23/2021 Adult BMI Screening 06/24/2025 06/24/2024 Tobacco Screening 06/24/2025 06/24/2024 DTaP,Tdap and Td Vaccines (2 - Td or Tdap) 08/13/2033 08/13/2023 Medical Devices Not on file Insurance [facility] MEDICARE Care Teams Paper Counter Relationship Specialty Start Date End Date Pauly Santacruz APRN-CHAO [address] [place] [id number] PCP - General Family Medicine 06/24/24
--- OUTSIDE RECORDS SUMMARY | 2025-06-14 09:52 | XMS_ITS | Patient Health Record ---
Author Organization [facility] Address [address] [place], [place] [address] Care Team Providers Care Head Of Training And Development Name Role Phone Pauly Santacruz Primary Care Provider Charis Casas Unavailable [phone] Allergies No Known Allergies Results Component Value [...] AI SJOGREN'S SS-B ANTIBODY <0.2 <1.0 AI SMASH HAND IGG <0.2 <1.0 AI SCLERODERMA AB <0.2 [...] UNLESS OTHERWISE INDICATED, ALL TESTING PERFORMED AT: [employer] [address] [place] [address] HOOP FLARING MACHINE OPERATOR HELPER: SISSY PEARSON M.D. 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 No patient [...] W/U Status Risk Notes Problem Celiac disease (705505153) Celiac disease (K90.0) Active confirmed Dx for sales and marketing associate referral only. Problem Nausea (379655265) Nausea (R11.0) Active confirmed Problem Atherosclerotic heart disease of [place] coronary artery without angina pectoris (297520898431385) Coronary artery disease with history of coronary revascularization (I25.10) Active confirmed Problem Erectile dysfunction (disorder) (806795050) Erectile dysfunction, unspecified erectile dysfunction type (N52.9) Active confirmed Dx for lab work only. 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) Peripheral polyneuropathy (G62.9) Active confirmed Problem Pain in wrist (80637387) Wrist arthralgia (M25.539) Active confirmed Vital Signs [...] Date Provider Diagnosis Main [address], [place] [id number] 09/15/2024 Char[facility] Nausea R11.0 ; Rayo k stools R19.5 ; Screening for cardiovascular condition Z13.6 ; Obesity, Class II, BMI 35-39.9 E66.812 and BMI 37.0-37.9, adult Z68.37 Main [address] [place] [id number] 06/21/2024 Pauly Noam Main [address] [id number] 09/18/2024 [facility]is [facility] Main [address] [facility] [place] [id number] 05/05/2025 [facility] Arthritis M19.90 Assessments Encounter Date Diagnosis (ICD [...] Coverage End Date [employer] [address] [address] [place] [address] [id number] Nikunj Causey Self - patient is the [...]
--- OUTSIDE RECORDS SUMMARY | 2025-06-14 09:52 | XMS_ITS | Patient Health Record ---
Author Organization [facility] in [place] Address [address] [place] [address] Care Team Providers Care Marketing Designer Name Role Phone Andres Zayas Primary Care Provider [phone] Hu Bunn Unavailable [phone] Allergies No Known Allergies Results Component Value Reference Range Notes BLOOD GASES BTY Reviewed date:10/27/2024 03:45:50 PM Interpretation: Performing Lab: Notes/Report: [facility] , pH ABG 7.341 7.350-7.450 ABG PCO2 59.3 35.0-45.0 mmHg RESULTS GEE D TO SOCO MELLO RT AT 1533 PO2 ABG 72.9 80.0-100.0 mmHg HCO3 ABG 32.0 22.0-26.0 mmol/L Base Excess ABG 6.3 -2.0-2.0 mmol/L Oxygen Saturation ABG 94.0 Martinez Test POSITIVE POSITIVE Liters per Minute 3 Puncture Site RB Performing Lab: see note ML - [facility] LB FREE T3 Reviewed date:01/08/2025 05:36:32 PM Interpretation: Performing Lab: Notes/Report: [facility] , Free T3 2.75 2.18-3.98 pg/mL Performing Lab: see note ML - [facility] LB GLYCOHEMOGLOBIN A1C Reviewed date:01/08/2025 05:36:32 PM Interpretation: Performing Lab: Notes/Report: [facility] , Glycohemoglobin A1C 5.5 4.5-6.2 % ADA THERAPEUTIC TARGET < 7.0 ACTION SUGGESTED > 7.0 ADA RECOMMENDED LIMIT 4.0 - 6.0 Estimated Average Glucose 111 Performing Lab: see note ML - [facility] LB LIPID PROFILE Reviewed date:01/08/2025 05:36:32 PM Interpretation: Performing Lab: Notes/Report: [facility] , Triglycerides 111 <=150 mg/dL Cholesterol [...] 7.1 AVERAGE RISK Performing Lab: see note - [facility] LB PROF 14(COMP METB) Reviewed date:01/08/2025 05:36:32 PM Interpretation: Performing Lab: Notes/Report: [facility] , Sodium 139 136-145 mmol/L Potassium [...] Performing Lab: see note ML - [facility] LB T4 Reviewed date:01/08/2025 05:36:32 PM Interpretation: Performing Lab: Notes/Report: [facility] , T4 Thyroxine 6.60 4.50-12.10 ug/dL Performing Lab: see note ML - [facility] LB TSH Reviewed date:01/08/2025 05:36:32 PM Interpretation: Performing Lab: Notes/Report: [facility] , Thyroid Stimulating Hormone 0.630 0.358-3.740 u IU/mL Performing Lab: see note ML - [facility] LB URIC ACID SERUM Reviewed date:01/08/2025 05:36:32 PM Interpretation: Performing Lab: Notes/Report: [facility] , Uric Acid 3.4 3.5-7.2 mg/dL Performing Lab: see note ML - [facility] LB Troponin I High Sensitivity Reviewed date:01/08/2025 05:36:32 PM Interpretation: Performing Lab: Notes/Report: [facility] , Troponin I High Sensitivity 14.6 4.0-76.1 pg/m L UNIVERSAL DEFINITION OF MYOCARDIAL INFARCTION. THE UPPER HAS BEEN CONFIRMED THE DECISION THRESHOLD FOR VT CUT-OFF POINTS HAVE BEEN ESTABLISHED BASED ON THE FOURTH PERCENTILE OF cTnI DISTRIBUTION IN A REFERENCE POPULATION, USED IN ISOLATION BUT SHOULD BE INTERPRETED IN CONJUNCTION 99TH PERCENTILE = 76.2 PG/ML NOTE: HIGH-SENSITIVITY TROPONIN ASSAY IS NOT INTENDED TO BE DIAGNOSIS. REFERENCE LIMIT (URL) OF TROPONIN, DEFINED THE 99TH WITH OTHER DIAGNOSTIC AND CLINICAL INFORMATION. Performing Lab: see note ML - [facility] LB CBC AUTO DIFF Reviewed date:04/19/2025 08:09:45 PM Interpretation: Performing Lab: Notes/Report: [facility] , White Blood Count 9.6 4.0-11.0 [...] 3/uL Performing Lab: see note ML - [facility] PROF CHEM 8 (BAS METB) Reviewed date:04/19/2025 08:09:45 PM Interpretation: Performing Lab: Notes/Report: [facility] , Sodium 137 136-145 mmol/L Potassium [...] Performing Lab: see note ML - [facility] LB LIPID PROFILE Reviewed date:05/27/2025 05:30:12 PM Interpretation: Performing Lab: Notes/Report: [facility] , Triglycerides 115 <=150 mg/dL Cholesterol 138 <=200 mg/dL HDL Cholesterol 39 40-60 mg/dL > or =60 mg/dl - LOW CARDIOVASCULAR RISK <40 mg/dl - HIGH CARDIOVASCULAR RISK LDL Cholesterol Calculated 76.0 160-189 mg/dl HIGH <100 mg/dl OPTIMAL >190 mg/dl VERY HIGH 100-129 mg/dl NEAR OR ABOVE OPTIMAL 130-159 mg/dl BORDERLINE HIGH VLDL CHOLESTEROL 23.0 Chol HDL Ratio 3.5 4.4 - 7.1 AVERAGE RISK 7.1 - 11.0 MODERATE RISK 3.3 - 4.4 LOW RISK >11.0 HIGH RISK Performing Lab: see note ML - [facility] LB SGOT Reviewed date:05/27/2025 05:30:12 PM Interpretation: Performing Lab: Notes/Report: [facility] , Aspartate Amino Transferase 16 15-37 U/L Performing Lab: see note ML - [facility] LB SGPT Reviewed date:05/27/2025 05:30:12 PM Interpretation: Performing Lab: Notes/Report: [facility] , Alanine Aminotransferase 31 16-63 U/L Performing Lab: see note ML - [facility] LB SGPT Reviewed date:03/17/2025 06:46:32 PM Interpretation: Performing Lab: Notes/Report: [facility] , Alanine Aminotransferase 33 16-63 U/L Performing Lab: see note ML - [facility] LB LIPID PROFILE Reviewed date:03/17/2025 06:46:32 PM Interpretation: Performing Lab: Notes/Report: [facility] , Triglycerides 112 <=150 mg/dL Cholesterol [...] Performing Lab: see note ML - [facility] LB MR head/brain wo con Reviewed date:02/21/2025 01:09:15 PM Interpretation: Performing Lab: Notes/Report: Source Facility: [facility]-[address] [place] [address] [place] [address] Magnetic Resonance Report Signed Patient: ELISE TABOR MR#: [id number] : 1960 Acct:[id number] Age/Sex: 64 / M ADM Date: 02/21/25 Loc: MRI Attending Dr: Donna Zayas M.D. Ordering Physician: Donna Zayas M.D. Date of Service: 02/21/25 Procedure(s): MR head/brain wo con Accession Number(s): [id number] cc: Donna Zayas M.D. [place] [id number] Patient Name: ELISE TABOR MRN: [id number] date: 1960 Sex: M Assigned Patient Location: MRI Current Patient Location: MRI Accession/Order Number: [id number] Exam Date: 02/21/2025 10:55 Report Date: 02/21/2025 [...] Salazar M.D. 02/21/2025 11:03 AM Dictation Location: [place] [address] Electronically authenticated by: [id number] Y Date: 02/21/2025 11:03 Dictated By: Uyen Salazar M.D. Signed By: 02/21/25 1105 DD/ 1103 TD/TT: Emt Intermediate: CA echo doppler complete Reviewed date:02/03/2025 09:03:54 PM Interpretation: Performing Lab: Notes/Report: Source Facility: [place] [address] [place] [address] Cardiology Report Signed Patient: ELISE TABOR MR#: [id number] : 1960 Acct:[id number] Age/Sex: 64 / M ADM Date: 02/03/25 Loc: CARD Attending Dr: Benny Diaz M.D. Ordering Physician: Benny Diaz M.D. Date of Service: 02/03/25 Procedure(s): CA echo doppler complete Accession Number(s): [id number] cc: Donna Zayas M.D.; Benny Diaz M.D. Patient Name: ELISE TABOR MR#: [id number] : 1960 Exam Date: 02/03/2025 Ordering Doctor: [...] CARD Signed By: 02/03/252055 DD/ 54 TD/TT: Emt Intermediate: Calcium, Ionized, Serum Reviewed date:01/23/2025 10:13:17 PM Interpretation: Performing Lab: Notes/Report: [facility] , Calcium, Ionized, Serum 5.3 4.5-5.6 mg/dL Performed at: [facility] Engineering Production Liaison: Candido Villegas PhD, Phone: [phone] [address] [place], [place] [id number] Performing Lab: see note LC - [facility] LB PROF 14(COMP METB) Reviewed date:01/19/2025 07:18:24 PM Interpretation: Performing Lab: Notes/Report: [facility] , Sodium 139 136-145 mmol/L Potassium [...] Performing Lab: see note ML - [facility] LB LIPID PROFILE Reviewed date:01/19/2025 07:18:24 PM Interpretation: Performing Lab: Notes/Report: [facility] , Triglycerides 86 <=150 mg/dL Cholesterol [...] HIGH RISK Performing Lab: see note - [facility] PSA SCREENING Reviewed date:01/08/2025 05:36:32 PM Interpretation: Performing Lab: Notes/Report: [facility] , Prostate Specific Antigen Scrn 2.20 <=4.00 ng/mL Performing Lab: see note - [facility] LB INSULIN Reviewed date:01/08/2025 05:36:32 PM Interpretation: Performing Lab: Notes/Report: [facility] , Insulin 29.0 2.6-24.9 uIU/mL Performed at: [facility] [id number] Engineering Production Liaison: Candido Villegas PhD, Phone: [phone] Performing Lab: see note - [facility] LB CBC AUTO DIFF Reviewed date:01/08/2025 05:36:32 PM Interpretation: Performing Lab: Notes/Report: [facility] , White Blood Count 12.7 4.0-11.0 [...] Performing Lab: see note ML - [facility] LB CBC AUTO DIFF Reviewed date:08/17/2024 08:59:34 AM Interpretation: Performing Lab: Notes/Report: [facility] , White Blood Count 11.4 4.0-11.0 [...] 10 3/uL Performing Lab: see note - [facility] LB XR Chest PA and Lateral (Rou iain CXR) * Reviewed date:10/26/2024 03:20:38 PM Interpretation: Performing Lab: Notes/Report: BNP Reviewed date:01/08/2025 05:36:32 PM Interpretation: Performing Lab: Notes/Report: [facility] , NT Pro B Type Natriuretic Pept 68.0 <=900.0 pg/mL Performing Lab: see note - [facility] LB CBC W/AUTO DIFF Reviewed date:08/16/2024 03:36:52 PM Interpretation: Performing Lab: Notes/Report: CA echo w/ con Reviewed date:03/20/2025 04:01:59 PM Interpretation: Performing Lab: Notes/Report: Source Facility: [place] [address] [place] [address] Cardiology Report Signed Patient: ELISE TABOR MR#: [id number] : 1960 Acct:[id number] Age/Sex: 64 / M ADM Date: 03/17/25 Loc: NM Attending Dr: Benny Diaz M.D. Ordering Physician: Benny Diaz M.D. Date of Service: 03/17/25 Procedure(s): CA echo w/ con Accession Number(s): [id number] cc: Donna Zayas M.D.; Benny Diaz M.D. Patient Name: ELISE TABOR MR#: [id number] : 1960 Exam Date: 03/17/2025 Ordering Doctor: DR. SAMAR ALFREDO M.D. ECHOCARDIOGRAM REPORT PROCEDURE: CA ECHO W/ [...] cm2, 3.62 cm2 AoV Area (VTI): Deceleration [place]: Pressure Half-Time: Peak Velocity(Antegrade Flow): 0.90 m/s [...] M.D. Signed By: 03/18/251845 DD/ 44 TD/TT: Emt Intermediate: PATI jose luis perf SPECT rest str Reviewed date:03/20/2025 04:01:59 PM Interpretation: Performing Lab: Notes/Report: Source Facility: [place] [address] [place] [address] Nuclear Medicine Report Signed Patient: ELISE TABOR MR#: [id number] : 1960 Acct:[id number] Age/Sex: 64 / M ADM Date: 03/17/25 Loc: PATI Attending Dr: Benny Diaz M.D. Ordering Physician: Benny Diaz M.D. Date of Service: 03/17/25 Procedure(s): PATI jose luis perf SPECT rest str Accession Number(s): [id number] cc: Donna Zayas M.D.; Benny Diaz M.D. Patient Name: ELISE TABOR MR#: [id number] : 1960 Exam Date: 03/17/2025 Ordering Doctor: [...] the study was pending per attending physician [facility] . For more details please see separate [...] M.D. Signed By: 03/18/251922 DD/ 21 TD/TT: Emt Intermediate: TERRY Reviewed date:03/17/2025 06:46:32 PM Interpretation: Performing Lab: Notes/Report: [facility] , Aspartate Amino Transferase 19 15-37 U/L Performing Lab: see note ML - [facility] Reason For Referral Reason Patient is establish [...] 09:31:19 AM >Referral given to Melita/Danni at [facility] Cardiology. Patient will be contacted by the office and scheduled.Prudence Riley 07/21/2024 11:04:11 AM >I called and spoke with Danni at [facility] to find out if the patient has been scheduled yet? Per Danni the patient is not scheduled as of today, but she will speak with Melita to find out what she is waiting on., Nomi Foss 07/29/2024 01:03:06 PM >Per Melita at [facility] Cardiology the patient is scheduled for 08/26/2024 [...] Duration) Notes Start Date End Date Status Farxiga 10 MG Oral; Duration: 34 Days Active Eliquis 5 MG as directed Orally t wice daily Active Atorvastatin Calcium 80 MG 1 tablet Oral ly Once a day Active Aspirin 81 81 MG 1 tablet Orally Once a day Active Acetaminophen 500 MG 1 capsule as needed Orally every 6 hrs Active Vitamin B 12 500 MCG 1 tablet Orally Onc e a day Active Ventolin HFA 108 (90 Base) MCG/ACT 2 puffs as needed for SOB Inhalation Q4H; Duration: 90 days Active Trelegy Ellipta 200-62.5-25 MCG/ACT 1 puff Inhalation QD; Duration: 90 days Rinse after use; Dispense #3 inhalers 08/17/2024 Active traMADol HCl 50 MG 1 tablet as needed Orally tid; Duration: 7 days S76.319A 05/23/2025 Active Topiramate 50 MG 1 tablet Orally Once a day; Duration: 30 days 02/21/2025 Active Lisinopril 5 MG 1 tablet Orally Once a day Active tiZANidine HCl 4 MG 2 tabs Orally qhs; Duration: 30 days 01/07/2025 Active Ipratropium-Albuterol 0.5-2.5 (3) MG/3ML 3mL Inhalation QID; Duration: 90 days Active Imitrex 100 MG 1 tablet at least 2 hours between doses as needed Orally Twice a day; Duration: 30 days 01/07/2025 Active Zinc 50 MG 1 tablet Orally Once a day Active Vitamin D3 50 MCG (2000 UT) 1 capsule Or ally Once a day Active Vitamin C 1000 MG 1 tablet Orally Once a day Active Ozempic (0.25 or 0.5 MG/DOSE) 2 MG/3ML Inject 0.25ml Subcutaneous once weekly; Duration: 28 days Active Nitroglycerin 0.4 MG 1 tablet under the tongue and allow to dissolve as needed. Take every 5 minutes up to 3 times if chest pain persists Sublingual Three times a day Active Mucinex 600 MG 1-2 tablets as neede d for congestion Orally BID; Duration: 90 days Active Metoprolol Succinate ER 50 MG 2 tablets am and 1pm Orally Active Theophylline ER 300 MG 1 tablet Orally e very 12 hrs; Duration: 30 days 05/26/2025 Active Sodium Chloride 0.9 % 3mL Inhalation BID ; Duration: 90 days 07/13/2024 Active Roflumilast 500 MCG 1 tablet Orally QD; Duration: 90 days Active Protonix 40 MG 1 tablet Orally Once a day; Duration: 30 days 01/07/2025 Active Pregabalin 150 MG 1 capsule Orally thr ee times daily; Duration: 90 days 03/29/2025 Active Immunizations Vaccine Route Administration Date Status Comme nts Flu, Flucelvax (2903-7024) ( 76447) 6 mos and older, single-dose syringe Unknown [...] Status W/U Status Risk Notes Problem Anemia (000273142) Anemia, unspecified (D64.9) Active confirmed Problem Obesity (265141277) Obesity, unspecified (E66.9) Active confirmed Problem Centrilobular emphysema (37312727) Centrilobular emphysema (J43.2) Active confirmed Prior treatment: Trelegy 200 > Trelegy 100 > Breztri > Spiriva. Not a candidate for EBV or lung reduction surgery. Problem Chronic respiratory failure (13085850) Chronic respiratory failure with hypoxia (J96.11) Active confirmed Problem Chronic respiratory failure (06586720) Chronic respiratory failure with hypercapnia (J96.12) Active confirmed Problem Long-term current use of inhaled steroid (249025973) care home (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 of inhaled steroids (Z79.51) Active confirmed Problem Long-term current use of systemic steroid (166237792591300) emt intermediate (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 of systemic steroids (Z79.52) Active confirmed Problem Hypertension (52641597) Hypertension (I10) Active confirmed Problem Gastroesophageal reflux disease (702469880) GERD (gastroesophageal reflux disease) (K21.9) Active confirmed Problem Obstructive sleep apnea syndrome (51564614) ISABEL (obstructive sleep apnea) (G47.33) Active confirmed Problem Migraine (40407274) Migraine (G43.909) Active confirmed Problem Atrial fibrillation (03440391) Atrial fibrillation, unspecified (I48.91) Active confirmed Problem History of atrial fibrillation (212221686) History of atrial fibrillation (Z86.79) Active confirmed Problem Coronary arteriosclerosis (64567489) Coronary arteriosclerosis (I25.10) Active confirmed Problem Post-inflammatory pulmonary fibrosis (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) Granulomatous lung disease (J84.10) Active confirmed Problem Ex-tobacco user (finding) (493549250) History of tobacco abuse (Z87.891) Active confirmed 2ppd x 35 years (70 pack-years ), quit 2013 Problem Gastroesophageal reflux disease (790500503) Gastroesophageal reflux disease (K21.9) Active confirmed Problem History of respiratory disease (928234260) History of asbestosis (Z87.09) Active confirmed Problem Hamstring tear (S76.319A) Active confirmed Problem Arthralgia of the pelvic region and thigh (807266085) Hip pain, acute, right (M25.551) Active confirmed Problem Nondependent cannabis abuse (114329860) Marijuana use (F12.90) Active confirmed Problem Thoracic aortic aneurysm without rupture (disorder) (40576988) Thoracic aneurysm without mention of rupture (I71.20) Active confirmed Vital Signs Heart Rate 71 /min 03/23/2025 Temperature 97.0 degrees Fahrenheit 03/23/2025 Respiratory Rate 20 /min 03/23/2025 Oximetry 91 % 03/23/2025 Blood pressure diastolic 78 mm Hg 06/14/2025 Height 70 in 06/14/2025 Blood pressure systolic 132 mm Hg 06/14/2025 Weight 247.2 lbs 06/14/2025 BMI 35.47 kg/m2 06/14/2025 Procedures Procedure Date Ordered Date Performed Result Body Sit e Split Night Sleep Study 10/27/2024 11/10/2024 N/A ABG 10/27/2024 10/27/2024 N/A Encounters Encounter Location Date Provider Diagnosis [facility] [address] [place] [address] 05/16/2025 Andres Hoy Hypertension I10 [facility] [address] [place] [address] 03/23/2025 [facility] Centrilobular emphys larissa J43.2 ; Chronic respiratory failure with hypoxia J96.11 ; Chronic respiratory failure with hypercapnia J96.12 ; ISABEL (obstructive sleep apnea) G47.33 ; History of tobacco abuse Z87.891 ; History of asbestosis Z87.09 ; emt intermediate (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 of systemic steroids Z79.52 ; care home (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 of inhaled steroids Z79.51 and Obesity, unspecified E66.9 [facility] [address] [place] [address] 07/13/2024 Hu Oni Centrilobular emphys larissa J43.2 ; Chronic respiratory failure with hypoxia J96.11 ; History of tobacco abuse Z87.891 ; History of asbestosis Z87.09 ; Coronary arteriosclerosis I25.10 ; Atrial fibrillation, unspecified I48.91 ; emt intermediate (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 of systemic steroids Z79.52 ; emt intermediate (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 of inhaled steroids Z79.51 and Obesity, unspecified E66.9 [facility] [address] [place] [address] 10/27/2024 Hu Samsa Centrilobular emphys larissa J43.2 ; Hypersomnia, unspecified G47.10 ; Chronic respiratory failure with hypercapnia J96.12 ; Chronic respiratory failure with hypoxia J96.11 ; Metabolic alkalosis E87.3 ; History of tobacco abuse Z87.891 ; History of asbestosis Z87.09 ; Coronary arteriosclerosis I25.10 ; Atrial fibrillation, unspecified I48.91 ; emt intermediate (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 of systemic steroids Z79.52 ; emt intermediate (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 of inhaled steroids Z79.51 and Obesity, unspecified E66.9 [facility] [address] [place] [address] 01/19/2025 Hubettye Bunn Centrilobular emphys larissa J43.2 ; ISABEL (obstructive sleep apnea) G47.33 ; Chronic respiratory failure with hypercapnia J96.12 ; Chronic respiratory failure with hypoxia J96.11 ; History of tobacco abuse Z87.891 ; History of asbestosis Z87.09 ; care home (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 of systemic steroids Z79.52 ; emt intermediate (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 of inhaled steroids Z79.51 and Obesity, unspecified E66.[address] [address] 01/07/2025 Andres Zayas Well adult Z00.00 ; Coronary arteriosclerosis I25.10 ; Atrial fibrillation, unspecified I48.91 ; History of atrial fibrillation Z86.79 ; Granulomatous lung disease J84.10 ; Anemia, unspecified D64.9 ; Hypersomnia, unspecified G47.10 and GERD (gastroesophageal reflux disease) K21.[address] [address] 02/11/2025 Andres Zayas Centrilobular emphys larissa J43.2 ; Obesity, unspecified E66.9 ; Coronary arteriosclerosis I25.10 ; History of atrial fibrillation Z86.79 ; Chronic respiratory failure with hypercapnia J96.12 and Migraine G43.909 [facility] [address] [facility] [place] [address] 05/13/2025 Andres Zayas Hamstring tear S76.3 19A and Hypertension I10 [facility] [address] [place] [address] 05/27/2025 Andres Zayas Hypertension I10 and Hamstring tear S76.319A [facility] [address] [place] [address] 06/14/2025 Andres Zayas Hip pain, acute, rig ht M25.551 and Chronic respiratory failure with hypercapnia J96.12 [facility] [address] [facility] [place] [address] 03/29/2025 Andres Zayas [place] [address] [facility] [place] [address] 05/16/2025 Andres Zayas [place] [address] [facility] [place] [address] 05/23/2025 Andres Zayas [facility] [address] [facility] [place] [address] 05/23/2025 Andres Zayas Centrilobular emphys larissa J43.2 [place] [address] [facility] [place] [address] 05/24/2025 Andres Zayas [place] [address] [place] [address] 05/26/2025 Andres Zayas Centrilobular emphys larissa J43.2 and Encounter for long-term (current) drug use Z79.899 [place] [address] [facility] [place] [address] 01/24/2025 Andres Zayas Well adult Z00.00 [place] [address] [facility] [place] [address] 02/03/2025 Andres Zayas [facility] [address] [facility] [place] [address] 02/17/2025 Andres Zayas Chronic respiratory failure with hypercapnia J96.12 [place] [address] [facility] [place] [address] 02/21/2025 Andres Zayas [facility] [address] [facility] [place] [address] 03/17/2025 [facility] [address] [facility] [place] [address] 03/20/2025 Andres Zayas [facility] [address] [facility] [place] [address] 08/17/2024 Hu Oni Centrilobular emphys larissa J43.2 [facility] [address] [facility] [place] [address] 09/13/2024 [facility] Centrilobular emphys larissa J43.2 [facility] [address] [facility] [place] [place] [address] 10/05/2024 [facility] [address] [facility] [place] [address] 10/21/2024 Hu Bunn Acute cough R05.1 [facility] [address] [facility] [place] [address] 01/08/2025 Andres Zayas Abnormal blood chemi stry level R79.9 [facility] [address] [facility] [place] [address] 01/23/2025 Andres Zayas Assessments Encounter Date Diagnosis (ICD Code) Assessment [...] respiratory failure with hypoxia (ICD-10 - J96.11) Fpwh-tq-[id number] encounter performed with the patient to document [...] Continue O2, ideally 4L/min with activity. 10/27/2024 Hypersomnia, unspecified (ICD-10 - G47.10) Screen patiented for obstructive sleep apnea. His [place] was 13 and STOP-BANG was 8. He [...] to proceed with PAP therapy if indicated. Abat-gk-usps was performed today regarding need for CPAP or BiPAP if he qualifies. 10/27/2024 Centrilobular emphysema (ICD-10 - J43.2) Prior treatment: Trelegy 200 > Trelegy 100 > Breztri > Spiriva. Not a candidate for EBV or lung reduction surgery. He is not an endobronchial valve candidate. He refused referral to lung transplantation center. Patient continues to complain of worsening shortness of breath. He was approved for Ohtuvayre, but there was a $500 tek-rh-msurod cost monthly. He apparently did not feel [...] the 10mg/day dose. I reviewed labs that [facility] cardiology ordered from 10/01/2024. I note that [...] to use a PAP/NIV if indicated. Unfortunately, [employer] has been very difficult to reach regarding [...] to decline, hospice is also a consideration. 01/19/2025 Centrilobular emphysema (ICD-10 - J43.2) Prior [...] ISABEL (obstructive sleep apnea) (ICD-10 - G47.33) Gvsi-xu-cqgs encounter performed with the patient to document continued need for PAP therapy. -Current DME: [employer] -Split night 11/10/2024: AHI 61, Titration 23/08 with 5L/min O2 bleed-in -Compliance was reviewed from 12/20/2024 - 01/18/2025 -Total days used: 30 (100%) -Total of all days >4 hours of use: 29/30 (97%) -Current model, mode, & set pressure: AirCurve 10 VAuto 16/ -Residual AHI: 0.3 -Air leak (median): 11.8L/min [...] @ bedtime and with any naps. -This muqb-qe-qywn visit comes with my authorization that the patient's DME may request to renew, reorder, and/or replace tubing, supplies, mask, and/or PAP device (if applicable). 01/07/2025 Well adult (ICD-10 - Z00.00) 01/07/2025 Coronary arteriosclerosis (ICD-10 - I25.10) 02/11/2025 Obesity, unspecified (ICD-10 - E66.9) 02/11/2025 Centrilobular emphysema (ICD-10 - J43.2) 03/23/2025 Centrilobular emphysema (ICD-10 - J43.2) Prior [...] respiratory failure with hypoxia (ICD-10 - J96.11) Tplg-xk-dniy encounter performed with the patient to document [...] his POC and current home concentrator. 05/13/2025 Hypertension (ICD-10 - I10) holding lisinopril and repat bp friday05/13/2025 Hamstring tear (ICD-10 - S76.319A) 05/16/2025 Hypertension (ICD-10 - I10) 05/27/2025 Hypertension (ICD-10 - I10) Hypotension - thingk over heated 05/27/2025 Hamstring tear (ICD-10 - S76.319A) 06/14/2025 Chronic respiratory failure with hypercapnia (ICD-10 - J96.12) 06/14/2025 Hip pain, acute, right (ICD-10 - M25.551) 08/17/2024 Centrilobular emphysema (ICD-10 - J43.2) Prior [...] respiratory failure with hypercapnia (ICD-10 - J96.12) 05/23/2025 Centrilobular emphysema (ICD-10 - J43.2) 05/26/2025 Centrilobular emphysema (ICD-10 - J43.2) 05/26/2025 Encounter for long-term (current) drug use (ICD-10 - Z79.899) 02/11/2025 Coronary arteriosclerosis (ICD-10 - I25.10) 03/23/2025 [...] respiratory failure with hypoxia (ICD-10 - J96.11) Bnbg-fq-xtvo encounter performed with the patient to document [...] respiratory failure with hypoxia (ICD-10 - J96.11) Dmyk-cy-xyxm encounter performed with the patient to document [...] (ICD-10 - G47.33) Previously evaluated. Continue PAP. Xehq-ch-wpdw encounter performed with the patient to document continued need for PAP therapy. -Current DME: [employer] -Split night 11/10/2024: AHI 61, Titration 23/08 with 5L/min O2 bleed-in -Compliance was reviewed from 12/20/2024 - 01/18/2025 -Total days used: 30 (100%) -Total of all days >4 hours of use: 29/ (97%) -Current model, mode, & set pressure: [...] @ bedtime and with any naps. -This cybn-xc-pcsl visit comes with my authorization that the [...] he is fine forgoing any further testing. 02/11/2025 Chronic respiratory failure with hypercapnia (ICD-10 - J96.12) 10/27/2024 Metabolic alkalosis (ICD-10 - E87.3) HCO3- 39.5, Suspected chronic hypercapnic respiratory failure, which I was correct based on ABG drawn today. 07/13/2024 Coronary arteriosclerosis (ICD-10 - I25.10) Patient voiced to me that he wanted a new cardiology group. I did not want to get into the politics of the situation, but he requested a referral to [facility]. His major gripe was not having the same tableau architect every visit. I personally walked over to [facility] and asked them how they have follow-up set up. They stated that they make an attempt to keep the patient with the same physician, but often alternates every other visit with a nurse practitioner. I relayed this information to the patient and he voiced he would like to have a referral placed to [facility]. I placed a referral for the [...] LDCT done that was due last year. 02/11/2025 Migraine (ICD-10 - G43.909) need MRI - progressive headache 01/19/2025 History of asbestosis (ICD-10 - Z87.09) Exposure to asbestos from brake pads. No evidence of asbestos on prior CT chest. 01/07/2025 Anemia, unspecified (ICD-10 - D64.9) 03/23/2025 History of asbestosis (ICD-10 - Z87.09) Exposure to asbestos from brake pads. No evidence of asbestos on prior CT chest. 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 10/27/2024 History of asbestosis (ICD-10 - Z87.09) Exposure to asbestos from brake pads. No evidence of asbestos on prior CT chest. 07/13/2024 emt intermediate (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 of systemic steroids (ICD-10 - Z79.52) Discussed adverse effects of senior living systemic steroids including, but not limited to: increased risk of cataracts, elevated blood sugars/worsening of underlying diabetes mellitus, impaired wound healing, gastrointestinal ulcers, osteoporosis. 07/13/2024 care home (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 of inhaled steroids (ICD-10 - Z79.51) Patient was counseled to rinse & gargle with water after inhaled corticosteroid use. 01/19/2025 emt intermediate (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 of inhaled steroids (ICD-10 - Z79.51) Patient was counseled to rinse & gargle with water after inhaled corticosteroid use. 10/27/2024 Coronary arteriosclerosis (ICD-10 - I25.10) Patient changed to [facility] and voiced he is very happy with the switch. 01/07/2025 GERD (gastroesophageal reflux disease) (ICD-10 - K21.9) 03/23/2025 emt intermediate (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 of inhaled steroids (ICD-10 - Z79.51) Patient was counseled to rinse & gargle with water after inhaled corticosteroid use. 10/27/2024 Atrial fibrillation, unspecified (ICD-10 - I48.91) 01/19/2025 Obesity, unspecified (ICD-10 - E66.9) Healthy calorie intake recommended. 03/23/2025 Obesity, unspecified (ICD-10 - E66.9) Healthy calorie intake recommended. 07/13/2024 Obesity, unspecified (ICD-10 - E66.9) Technically obese, but he has lost 20 pounds unintentionally over the past 2 months d/t decreased appetite. 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 10/27/2024 emt intermediate (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 of inhaled steroids (ICD-10 - Z79.51) Patient was counseled to rinse & gargle with water after inhaled corticosteroid use. 10/27/2024 Obesity, unspecified (ICD-10 - E66.9) Technically obese, but he has lost 20 pounds unintentionally over the past 2 months d/t decreased appetite. 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 01/19/2025 Other Screen patiented for obstructive sleep apnea. His [place] was 13 and STOP-BANG was 8. He [...] to proceed with PAP therapy if indicated. Xjig-rq-rbyz was performed today regarding need for CPAP or BiPAP if he qualifies. Patient changed to [facility] and voiced he is very happy with the switch. HCO3- 39.5, Suspected chronic hypercapnic respiratory failure, which I was correct based on ABG drawn today. 03/23/2025 Other Screen patiented for obstructive sleep apnea. His [place] was 13 and STOP-BANG was 8. He [...] to proceed with PAP therapy if indicated. Kajk-of-bznj was performed today regarding need for CPAP or BiPAP if he qualifies. Patient changed to [facility] and voiced he is very happy with the switch. HCO3- 39.5, Suspected chronic hypercapnic respiratory failure, which I was correct based on ABG drawn today. Plan Of Treatment Pending Test Test Name Order Date HEMOGLOBIN A1C (GLYCO) 01/07/2025 INSULIN, TOTAL 01/07/2025 LIPID PANEL (CHOL/TRIG/HDL/LDL) 01/08/20 25 URIC ACID 01/07/2025 Urinalysis Microscopic 06/14/2025 High Sensitivity Troponin 01/07/2025 CBC AUTO DIFF 06/14/2025 CULTURE URINE 06/14/2025 PROF 14(COMP METB) 01/08/2025 PROF 14(COMP METB) 06/14/2025 THEOPHYLLINE 05/26/2025 MRI BRAIN WO CON 02/11/2025 US AZUCENA DOP LEG RT 05/13/2025 THYROID PANEL (T4/TSH/FREE T3) XR HIP RT 2 3V W PELVIS 06/14/2025 PSA, SCREENING 01/07/2025 Calcium, Ionized, Serum 01/08/2025 CMP (COMP MET DONAHUE) w/eGFR CKD-EPI 2024 CBC WITH DIFF 01/07/2025 Future Test Test Name Order Date CT Chest Low Dose for Screening* 024 Insurance Providers Payer Name Payer Address Payer Phone Subscriber Number Group Number Insured Name Patient Relationship to Insured Coverage Start Date Coverage End Date [facility] [address] [address] [place] [phone] [id number] Elise Tabor Self - patient is the insured Medications Administered Medication Instructions Date of Administration Dosage Notes Triamcinolone 40 mg/ml 05/27/2025 80 mg Medical (General) History Medical History History ICD [...] sleep apnea) G47.33 Surgical History Surgery Date(Month/Year) heart cath 05/02 Hernia Repair cataract removal Amputation-Finger right hip replacement left hip replacement shoulder replacement-Right coronary artery bypass graft 2015 Hospitalization History Reason Date(Month/Year) [facility] 05/02/2023
--- OUTSIDE RECORDS SUMMARY | 2025-06-14 09:54 | XMS_ITS | CCD ---
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 NADEEM ANN Attending Unavail able SAMSA ., DARNELL Admitting Unavailable [facility] Primary Care Unavailable SAMSA ., DARNELL Attending Unavailable SAMSA ., DARNELL Consulting Unavailable SAMSA ., DARNELL Admitting Unavailable [facility] Primary Care Unavailable SAMSA ., DARNELL Attending Unavailable SAMSA ., DARNELL Consulting Unavailable GREG, KACIE Consulting Unavailable [facility] Primary Care Unavailable SAMSA ., DARNELL Attending Unavailable SAMSA ., DARNELL Consulting Unavailable SAMSA ., DARNELL Admitting Unavailable [facility] Primary Care Unavailable DR ALEYDA DYER Consulting Unavailable SAMSA ., DARNELL Attending Unavailable SAMSA ., DARNELL Admitting Unavailable SAMSA ., DARNELL Consulting Unavailable Noam CHRISTIAN, Risa Unavailable EMELY CANTU Referring Unavailable KACIE DEL REAL Primary Care Unavailable GILLIAN TAYLOR Attending Unavailable KACIE DEL REAL Referring Unavailable RISA MCNULTY Primary Care Unavailable Kacie Del Real MD Primary Care Provider Noam SWEET POTATO DISINTEGRATOR-PETAL CUTTERRisa Primary Care Provider [phone] LINSEY HALL Attending Unavailable TREE KRISHNAN Attending Unavailable TREE KRISHNAN Attending Unavailable ALEYDA LACKEY Attending Unavailable ROLAND BILL Referring Unavailable LINSEY HALL Attending Unavailable BENNY DIAZ Attending Unavailable BENNY DIAZ Attending Unavailable BENNY DIAZ Attending Unavailable JUAN FLORES Admitting Unavailable JUAN FLORES Attending Unavailable BENNY DIAZ Referring Unavailable JUAN FLORES Referring Unavailable BENNY DIAZ Attending Unavailable Allergies Allergy Classification Reported Allergen(s) Allergy Type Date of Onset Reaction(s) Facility (16 sources) Gluten Propensity to adverse reactions [address] [facility] (16 sources) Isosorbide Dinitrate Drug Allergy [address] [facility] (11 sources) Gluten; Translations: [GLUTEN] Propensity to adverse reactions to food (disorder) 2 [facility] (11 sources) Isosorbide; Translations: [ISOSORBIDE MONONITRATE] Drug Allergy 2 Headache [facility] (1 source) ALLERGIES NOT ON FILE; Translations: [ALLERGIES NOT ON FILE] Propensity to adverse reactions (disorder) [facility] Repository Medications Current Medications Medication Drug Class(es) Dates Sig (Normalized) Sig (Original) [id number] 200 actuat albuterol 0.09 mg/actuat metered dose [...] artery disease involving coronary bypass graft of [place] heart without angina pectoris , Hx of [...] Ordered: 15-Mar-2022 DO Start : 15-Mar-2022 Active fabdcaktvgv-nrtxagpqn-fdxtlp er (TRELEGY ELLIPTA) 200-62.5-25 mcg blister with device (10 sources) Start: 03-15-2022 pluwttlhytp-epfpobnjo-tcrkcd er (TRELEGY ELLIPTA) 200-62.5-25 mcg blister with [...] artery disease involving coronary bypass graft of [place] heart without angina pectoris , Hx of [...] artery disease involving coronary bypass graft of [place] heart without angina pectoris , Hx of [...] artery disease involving coronary bypass graft of [place] heart without angina pectoris , Paroxysmal atrial [...] bedtime. 01/16/2023 Active take 1 capsule by [facility] every twenty-four hours in the morning theophylline [...] take 1 puff(s) by inhalation once daily Zqjguvxoiqz-Nyqdaggjc-Hivmln 200-62.5-25 MCG/ACT aerosol powder Inhale 1 puff [...] [Coronary atherosclerosis of unspecified type of vessel, [place] or graft] Onset: 4 Resolved: 5 2025 [...] sources) Long-term current use of anticoagulant; Translations: [half-way (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 of 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] Onset: 4 Resolved: [...] Chronic Unclassified (1 source) Neck Pain / 513740() Onset: 8 Unclassified (1 source) Stiffness / 343() Onset: 8 Unclassified (1 source) Back Pain / 12() Onset: 8 Unclassified (1 source) Upper Extremity Weakness / [id number]() Onset: 8 Unclassified (2 sources) Abnormal stress [...] 2025 2025 Chronic Other aftercare (2 sources) half-way (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 of 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; Translations: [half-way (current) [...] Value Interpretation Reference Range Facility Office Visiton 05-27-2025 Follow-up visit [id number] PadillaArmando loida Atkinson 1960 M Date Provider Department Center 05/27/2025 [id number] BENNY ROPER [facility] Pamela Hos Family History Problem Relation Age of Onset Coronary artery disease Mother Coronary artery disease Father Family Status - Relation Status Age at Mother Father Sister Alive Level of Service:79067 AL OFFICE/OUTPATIENT ESTABLISHED MOD MDM 30 MIN Reason for Visit and Comments: Follow-up [076058] - Patient is here today for a follow up s/p cath. Patient states heart desir he feels well. Patient states he fell around labor day and possibly tore a hamstring. Post-Cath [731] Coronary Artery Disease [187] Hyperlipidemia [182] Hypertension [462353] Thoracic aortic aneurysm without rupture [Other] Cardiomyopathy [104] Atrial Fibrillation [80] Congestive Heart Failure [127] Normal [facility] Armaan 04-21-2025 ANES --------- Attestation signed by Juan Flores MD at 04/21/2025 12:57 PM I personally spoke with and examined Mr. Tabor with Dr. Saleh. He has a drop in LVEF and a positive stress test. Plan cors, LV and WALTERS angiography. He voices understanding of risks (, MA, bleeding, etc) and agrees to proceed. Patient: [...] Celiac disease 08/16/2024 Coronary artery disease involving white earth coronary artery of white earth heart without angina pectoris 08/16/2024 Erectile dysfunction 08/16/2024 Pain in wrist 08/16/2024 Peripheral polyneuropathy 08/16/2024 Cardiomyopathy, ischemic 08/16/2024 Chronic systolic heart failure ([facility]) 08/16/2024 Chronic anticoagulation 08/16/2024 Pure hypercholesterolemia 08/16/2024 Class 2 severe obesity due to excess calories with serious comorbidity and body mass index (BMI) of 35.0 to 35.9 in adult ([facility]) 08/16/2024 Mixed hyperlipidemia 06/24/2024 Essential hypertension 06/24/2024 DDD (degenerative disc disease), lumbar 01/20/2024 Neuropathy 01/20/2024 Paresthesia 01/20/2024 History of maze procedure 05/20/2022 Paroxysmal A-fib ([facility]) 05/20/2022 Thoracic aortic aneurysm without rupture 05/20/2022 Cervicalgia 04/08/2018 Headache in back of head 04/08/2018 Abnormal cardiovascular stress test 04/05/2025 Allergies: Allergies[2] BRATTICE BUILDER/Current Medications: Prescriptions Prior to Admission[3] Current Medications[4] [...] and agreed to proceed. 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 [facility] 04-21-2025 H&P reviewed. The guillermo so was examined and there are no changes to the H&P. Will proceed with coronary angiography for further evaluation of abnormal stress test. Consent for blood products obtained. Risks, benefits, and alternatives to procedure discussed with patient in detail who expressed understanding and agreed to proceed. [facility] NURSNOTEon 04-21-2025 NURSNOTE RN educated pt on d/ [...] off of unit with all of belongings. [facility] NURSNOTE Patient requesting r alexandra do his DuoNeb nebulizer prior to having his cath done. 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 He states that overall [...] Rfl: theop (more content not included)... Normal [facility] Office Visiton 04-14-2025 Follow-up visit [id number] Armando Tabor 1960 [facility] Provider Department Center 04/14/2025 BENNY NICOLE Family History Problem Relation Age of Onset Coronary artery disease Mother Coronary artery disease Father Family Status - Relation Status Age at Mother Father Sister Alive Level of Service:03488 AL OFFICE/OUTPATIENT ESTABLISHED MOD MDM 30 MIN Reason for Visit and Comments: Follow-up [051892] Abnormal stress test [Other] Cardiac Cath scheduled 04/28/2025 [Other] Coronary Artery Disease [187] Hyperlipidemia [182] Congestive Heart Failure [127] Hypertension [689519] COPD [313] Home o2 3lpm via N/C 31/03 [Other] [facility] 36on 04-12-2025 36 Benny Diaz MD Scarlett kimberly Nevarez MA Overall echo is normal with minor valvular heart disease LVM to advise patient of Dr. Diaz's findings. [facility] Orders Onlyon 04-05-2025 Orders Only [id number] Armando Tabor 1960 [facility] Provider Department Center 04/05/2025 DANNI ALCANTARA CAROL ANN [place] Family History Problem Relation Age of Onset Coronary artery disease Mother Coronary artery disease Father Family Status - Relation Status Age at Mother Father Sister Alive [facility] Results Follow-Upon 04-02-20 Results Follow-Up [id number] Armando Tabor 1960 M Date Provider Department Center 04/02/2025 BENNY NICOLE [facility] CARD RI HeartVAS Family History Problem Relation Age of Onset Coronary artery disease Mother Coronary artery disease Father Family Status - Relation Status Age at Mother Father Sister Alive [facility] Orders Onlyon 03-21-2025 Orders Only [id number] Armando Tabor 1960 M Date Provider Department Center 03/21/2025 [id number], HISTORICAL CAROL ANN [place] Family History Problem Relation Age of Onset Coronary artery disease Mother Coronary artery disease Father Family Status - Relation Status Age at Mother Father Sister Alive [facility] 36on 02-09-2025 36 Regarding lab result s [...] labs prior to apt in Apr-May 2025. [facility] Orders Onlyon 02-04-2025 Orders Only [id number] Armando Tabor 1960 M Date Provider Department Center 02/04/2025 [id number], HISTORICAL CAROL ANN [place] Family History Problem Relation Age of Onset Coronary artery disease Mother Coronary artery disease Father Family Status - Relation Status Age at Mother Father Sister Alive [facility] Office Visiton 12-31-2024 Follow-up visit [id number] Armando Tabor 1960 M Date Provider Department Center 12/31/2024 BENNY NICOLE CAROL ANN [place] Family History Problem Relation Age of Onset Coronary artery disease Mother Coronary artery disease Father Family Status - Relation Status Age at Mother Father Sister Alive Level of Service:01893 AL OFFICE/OUTPATIENT ESTABLISHED MOD MDM 30 MIN Reason for Visit and Comments: Coronary Artery Disease [187] Hyperlipidemia [182] Hypertension [603163] [facility] 36on 10-07-2024 36 Regarding echo and C [...] and blue Medicare care to apply for [employer] patient assistance program. Free 30 day voucher also provided for patient. BMP order given to be done in 1 week. LIPID,AST,ALT orders given to him to be completed in 2 months after increasing atorvastatin per Dr. Diaz. He verbalized understanding. [facility] Office Visiton 08-16-2024 Follow-up visit [id number] Armando Tabor 1960 M Date Provider Department Center 08/16/2024 [id number] DIAZ [facility] Family History Problem Relation Age of Onset Coronary artery disease Mother Coronary artery disease Father Family Status - Relation Status Age at Mother Father Level of Service:81737 AL OFFICE/OUTPATIENT NEW MODERATE MDM 45 MINUTES Reason for Visit and Comments: Atrial Fibrillation [80] - Had EKG at last apt with [facility] in Jun 2024. Denies chest pain and bleeding on Eliquis. Coronary Artery Disease [187] - CABG and MAZE in 2016 Hypertension [002780] Hyperlipidemia [182] COPD [313] - Sees Dr. Bunn [facility] POCT EKGOrdered By: Juana Hercules on 06-24-2024 Hotreader System EMG 1 Extremeityon [facility] NVC 7-8 Nerveson 06-08-2024 [facility] THEOPHYLLINEon 12-30-2022 THEOPHYLLINE 18.0 ug/mL Normal 10.0-20.0 [facility] Comment on above: Performed By: #### T ADALID #### [facility] [address] [address] [address] Karen Lee THEOPHYLLINEon 12-17-2022 THEOPHYLLINE 8.3 ug/mL Critically low 10.0-20.0 [facility] Comment on above: Performed By: #### T ADALID #### [facility] [id number] Karen Lee Blood Pressure Cuff Sizeon [...] Activated Vitals Vital Signs Recorded: 29May2022 02:58PM Ryvwmsuyeqn56.2 F Heart Rate91 Ytkqudqxkvr98 Qbmmaaoa209 Rsdkeqkbe43 Blood Pressure Cuff SizeLarge Height5 ft 7.32 in Bgjqlb957 lb 7 oz BMI Nphzcsaupx12.15 kg/m2 BSA Calculated2.19 Tobacco Useb) No Falls Screening (Age 18+)a) No falls within the last year O2 Mwbvfhpfww17, Nasal Cannula Pain Scale7 Physical Exam The [...] distribution Signatures Electronically signed by : Nadeem Ann MD; May 29 2022 3:24PM EST (Author) Normal [facility] Referral Letteron 022 Referral Letter Mr. Tabor [...] steps. Signatures Electronically signed by : Nadeem Ann MD; May 29 2022 3:24PM EST (Author) Normal [facility] CT LUNG CANCER SCREENINGon 0 04-26-2022 CT [...] ALEYDA DYER Date: 2022-04-26 16:20 Normal [facility] HEMOGLOBINon 04-26-2022 Hemoglobin (Bld) [Mass/Vol] 13.6 g/dL Critically low 14.0-18.0 [facility] Comment on above: Performed By: #### H GB #### [facility] [address] [address] [address] Karen Lee Progress Noteson 06-04-2018 Protein mass conc [facility] Notes by Jacquelyn Rivera PT at [...] Pt self discharged with last txsession with BRATTICE BUILDER.Patient is being discharged due to not returning to therapy and/or Plan of Care being .Recommend patient continue with HEP previously instructed on during therapy as appropriate.Patient may be reinstated in therapy upon new evaluation and orders from the physician.Thank You. [facility] Progress Noteson 04-23-2018 Protein mass conc Encounter Department : [facility] THERAPYProgress Notes by Berlin Valle PTA at 04/23/2018 9:00 AMAuthor: Berlin Valle PTAService: (none)Author Type: Physical Therapy AssistantFiled: 04/23/2018 9:46 AMEncounter Date: 04/23/2018Status: SignedEditor: Berlin Valle PTA (Extra Gang Supervisor)Physical Therapy Treatment NoteVisit Number: 5Encounter diagnosis:ICD-10-CM1.Cervical giaM54.22.Headache in back of zkhgN81Joyxppq Medical Diagnosis:SUBJECTIVE: Pt requests today being his [...] t-band- Scap retract x15- B UE ext h68Leck tucks x15GTB rows 8c56Mmetxz- STM along c-spine paraspinals, UT, and levator [...] in rotation and SB without increase in pain.Chcf Goals: LTG to be met by 06/08/18 [...] Time: 10Total Treatment Time: 25 PT Treatment [facility] Progress Noteson 04-21-2018 Protein mass conc Encounter [facility]YProgress Notes by Berlin Valle PTA at 04/21/2018 9:00 AMAuthor: Berlin Valle PTAService: (none)Author Type: Physical Therapy AssistantFiled: 04/21/2018 9:46 AMEncounter Date: 04/21/2018Status: SignedEditor: Berlin Valle PTA (Extra Gang Supervisor)Physical Therapy Treatment NoteVisit Number: 4Encounter diagnosis:ICD-10-CM1.Cervical giaM54.22.Headache in back of [id number] Medical Diagnosis: CervicalgiaSUBJECTIVE:Complia nce with HEP: Pt [...] t-band- Scap retract x15- B UE ext r47Comr tucks x15GTB rows 4a14Xxnnzu- STM along c-spine paraspinals, UT, and levator [...] in rotation and SB without increase in pain.Chcf Goals: LTG to be met by 06/08/18 [...] Time: 17Total Treatment Time: 32 PT Treatment [facility] Progress Noteson 04-16-2018 Protein mass conc Encounter Department [facility]YProgress Notes by Collette Pisano PTA at 04/16/2018 9:00 AMAuthor: Collette Pisano PTAService: (none)Author Type: Physical Therapy AssistantFiled: 04/16/2018 12:11 PMEncounter Date: 04/16/2018Status: SignedEditor: Collette Pisano PTA (Extra Gang Supervisor)Physical Therapy Treatment NoteVisit Number: 3Encounter diagnosis:ICD-10-CM1.Cervical giaM54.22.Headache in back of [id number] Medical Diagnosis: CervicalgiaSUBJECTIVE:Complia nce with HEP: Patient [...] t-band- Scap retract x15- B UE ext b61Armn tucks x15GTB rows 6y97Orhmaj- STM along c-spine paraspinals, UT, and levator [...] in rotation and SB without increase in pain.Infusion Therapy Nurse Goals: LTG to be met by 06/08/18 [...] Time: 28Total Treatment Time: 43 PT Treatment [facility] Progress Noteson 04-10-2018 Protein mass conc Encounter Department : [facility]ERAPYProgress Notes by Berlin Valle PTA at 04/10/2018 9:00 AMAuthor: Berlin Valle PTAService: (none)Author Type: Physical Therapy AssistantFiled: 04/10/2018 10:21 AMEncounter Date: 04/10/2018Status: SignedEditor: Berlin Valle PTA (Extra Gang Supervisor)Physical Therapy Treatment NoteVisit Number: 2Encounter diagnosis:ICD-10-CM1.Cervical giaM54.22.Headache in back of nescJ18Srffkci Medical Diagnosis: CervicalgiaSUBJECTIVE:Complia nce with HEP: Pt [...] UT stretch 3x 30'Chin tucks x15GTB rows 6i59ZKB: chin tuck, UT and LS stretch, scap [...] in rotation and SB without increase in pain.Chcf Goals: LTG to be met by 06/08/18 [...] Time: 30Total Treatment Time: 45 PT Treatment [facility] Progress Noteson 04-08-2018 Protein mass conc Encounter Department : [facility] REHAB THERAPYProgress Notes by Jacquelyn Rivera PT at 04/08/2018 1:45 PMAuthor: Jacquelyn Rivera PTService: (none)Author Type: Physical TherapistFiled: 04/08/2018 6:47 PMEncounter Date: 04/08/2018Status: SignedEditor: Jacquelyn Rivera PT (Physical Therapist)Physical Therapy EvaluationEncounter diagnosis:ICD-10-CM1.Cervical giaM54.22.Headache in back of muogA27Fonsqqumd provider: Mellisa Clarke,*Primary Medical Diagnosis: CervicalgiaPlan of [...] Home: 15Prior Level of Functioning: Level of [place]: [facility] Level of Functioning: Outcome Score: NDI (26 raw score NDI, 52% disability) Functional deficits: reports no functional deficits, able to do everything just withincreased pain. Level of [place]: Modified IndependentSleep Status/Sleep Hygiene: Preferred Sleep Position: [...] codes)G8978 Mobility Current Status; Severity: CK 40-59% ennwzvqwJ5008 Mobility Goal Status; Severity: CI 1-19% impairedOutcome measure(s)/Test(s) used/Result(s): 52% disability on NDI.Clinical Judgment: Moderate to severe impairement, decreased neck ROM and strength, tenderness totrigger points moderateNew Category to Ttjdrr-Cy-Hymk only?:NoEvaluation Breakdown DescriptionPatient HistoryComorbiditiesEnvironme ntal/Personal factorsLearning/CognitionDome stic [...] in rotation and SB without increase in pain.Infusion Therapy Nurse Goals: LTG to be met by 06/08/18 [...] Time: 60Time in: 1:44Time Out: 2:45 PT [facility] Vital Signs Date Time Vital Sign Value Performing Clinician Facility 04-15-2025 09:22-0400 Body height 177.8 cm Tree Krishnan DO Work Phone: [facility] 04-15-2025 09:22-0400 Body mass index (BMI) [Ratio] 35.87 kg/m2 Tree Krishnan DO Work Phone: [facility] 04-15-2025 09:22-0400 Body weight 113.4 kg Tree Krishnan DO Work Phone: [facility] 2025 09:00-0400 Body height 177.8 cm Tree Sheredaleksandar DO Work Phone: [facility] 2025 09:00-0400 Body mass index (BMI) [Ratio] 35.87 kg/m2 Tree Markenbach DO Work Phone: [facility] 2025 09:00-0400 Body weight 113.4 kg Tree Krishnan DO Work Phone: [facility] 12-27-2024 10:42-0400 Body height 177.8 cm Linsey Hall PA Work Phone: [facility] 12-27-2024 10:42-0400 Body mass index (BMI) [Ratio] 35.87 kg/m2 Linsey Hall PA Work Phone: [facility] 12-27-2024 10:42-0400 Body weight 113.4 kg Linsey Hall PA Work Phone: [facility] 12-27-2024 10:42-0400 Diastolic blood pressure 82 mm[Hg] Linsey Hall PA Work Phone: [facility] 12-27-2024 10:42-0400 Heart rate 75 /min Linsey Hall PA Work Phone: [facility] 12-27-2024 10:42-0400 Respiratory rate 16 /min Linsey Hall PA Work Phone: [facility] 12-27-2024 10:42-0400 SaO2% (BldA) [Mass fraction] 94 % Linsey Hall PA Work Phone: [facility] 12-27-2024 10:42-0400 Systolic blood pressure 142 mm[Hg] Linsey Hall PA Work Phone: [facility] 06-24-2024 13:52-0400 Body height 172.7 cm Gillian Taylor MD Work Phone: [facility] 06-24-2024 13:52-0400 Body mass index (BMI) [Ratio] 37.26 kg/m2 Gillian Taylor MD Work Phone: [facility] 06-24-2024 13:52-0400 Body weight 111.13 kg Gillian Taylor MD Work Phone: [facility] 06-24-2024 13:52-0400 Diastolic blood pressure 62 mm[Hg] Gillian Taylor MD Work Phone: [facility] 06-24-2024 13:52-0400 Heart rate 74 /min Gillian Taylor MD Work Phone: [facility] 06-24-2024 13:52-0400 SaO2% (BldA) [Mass fraction] 94 % Gillian Taylor MD Work Phone: [facility] 06-24-2024 13:52-0400 Systolic blood pressure 122 mm[Hg] Gillian Taylor MD Work Phone: [facility] 06-09-2024 11:17-0400 Body height 172.7 cm Linsey Hall PA Work Phone: [facility] 06-09-2024 11:17-0400 Body mass index (BMI) [Ratio] 38.01 kg/m2 Linsey Hall PA Work Phone: [facility] 06-09-2024 11:17-0400 Body weight 113.4 kg Linsey Hall PA Work Phone: [facility] 06-09-2024 11:17-0400 Diastolic blood pressure 84 mm[Hg] Linsey Hall PA Work Phone: [facility] 06-09-2024 11:17-0400 Heart rate 78 /min Linsey Hall PA Work Phone: [facility] 06-09-2024 11:17-0400 Respiratory rate 16 /min Linsey Hall PA Work Phone: [facility] 06-09-2024 11:17-0400 SaO2% (BldA) [Mass fraction] 93 % Linsey LI Work Phone: [facility] 06-09-2024 11:17-0400 Systolic blood pressure 132 mm[Hg] Linsey LI Work Phone: [facility] 05-29-2022 14:58-0400 Body height 170.99 cm Referring [...] Provider Unknown [facility] Work Phone: 05-29-2022 14:58-2830 7 1 Referring Provider Unknown [facility] Work Phone: Comment on above: [employer] Encounters Encounter Date Encounter Type Care Provider Facility Start: 05-27-2025 End: 05-27-2025 ambulatory [facility] Start: 04-21-2025 ambulatory [facility] Start: 04-21-2025 End: 04-21-2025 ambulatory [facility] Start: 04-15-2025 End: 04-15-2025 Bamboo flowsheet Tree Krishnan DO Work Phone: [facility] Start: 04-15-2025 End: 04-15-2025 Bamboo flowsheet Tree Krishnan DO Work Phone: [facility] Start: 04-15-2025 End: 04-15-2025 Office outpatient visit 25 minutes Tree Krishnan DO Work Phone: [facility] Comment on above: Otorrhea of right ea r (Primary Dx); Dysfunction of right eustachian tube; Chronic anticoagulation Start: 04-15-2025 End: 04-15-2025 ambulatory TREE KRISHNAN Not Available Start: 04-14-2025 End: 04-14-2025 ambulatory [facility] Start: 2025 End: 2025 Bamboo flowsheet Tree Krishnan DO Work Phone: JAMIN ARGUELLES Start: 2025 End: 2025 Bamboo flowsheet Tree Krishnan DO Work Phone: [facility] Start: 2025 End: 2025 Office outpatient visit 15 minutes Tree Krishnan DO Work Phone: [facility] Comment on above: Dysfunction of right eustachian tube (Primary Dx); Otorrhea of right ear; Chronic anticoagulation Start: 2025 End: 2025 ambulatory TREE SHERBRODIE Not Available Start: 12-31-2024 End: 12-31-2024 ambulatory [facility] Start: 12-27-2024 End: 12-27-2024 Bamboo flowsheet [...] Lumbosacral radiculopathy Start: 08-16-2024 End: 08-16-2024 ambulatory [facility] Start: 07-29-2024 End: 08-03-2024 Refill Pablo Nik HO-TANDEM OPERATOR Work Phone: [facility] Comment on above: Med Refill Start: 06-24-2024 End: 06-24-2024 Office outpatient visit 25 minutes Gillian Taylor MD Work Phone: [facility] Comment on above: Coronary artery dise ase involving coronary bypass graft of white earth heart without angina pectoris (Primary Dx); Paroxysmal atrial fibrillation ([facility]); Primary hypertension; Mixed hyperlipidemia; Left ventricular dysfunction Start: 06-24-2024 End: 06-24-2024 ambulatory GILLIAN TAYLOR [facility] Start: 06-23-2024 End: 06-23-2024 Telephone encounter Juana Hercules [facility] Start: 06-09-2024 End: 06-09-2024 Office outpatient visit 15 minutes Linsey LI Work Phone: [facility] Comment on above: 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 with discogenic back pain and lower extremity pain (Primary Dx); Neck pain; Chronic daily headache; Tremor Start: 06-09-2024 End: 06-09-2024 ambulatory LINSEY HALL Not Available Start: 06-08-2024 End: 06-08-2024 Bamboo flowsheet Aleyda Lackey MD Work Phone: [facility] [place] [facility] Start: 06-08-2024 End: 06-08-2024 Bamboo flowsheet Aleyda Lackey MD Work Phone: [facility] [place] [address] [facility] Start: 06-08-2024 End: 06-08-2024 Patient encounter procedure Aleyda Lackey MD Work Phone: [facility] [address] Comment on above: Carpal tunnel syndro me of left wrist (Primary Dx) Start: 06-08-2024 End: 06-08-2024 ambulatory ALEYDA LACKEY Not Available Start: 05-21-2024 End: 05-21-2024 Refill Radha Griffin RN [facility] Comment on above: Med Refill Start: 05-17-2024 End: 05-17-2024 ambulatory EMELY CANTU [facility] Comment on above: DDD (degenerative di sc [...] Refill Start: 12-30-2022 End: 12-31-2022 ambulatory [facility] . Facility:H1 Start: 12-17-2022 End: 12-18-2022 ambulatory [facility] . Facility:H1 Start: 06-17-2022 AUDIT Referring Prov ider Unknown [facility] 1800 Work Phone: Start: 05-29-2022 Office outpatient ne w 45 minutes Referring Provider Unknown [facility]CT Surgery-[facility] Work Phone: Start: 05-29-[address] [facility] Start: 05-21-2022 End: 08-14-2022 ambulatory [facility] Facility:H1 Start: 04-26-2022 End: 04-27-2022 ambulatory [facility] Facility:H1 Start: 04-23-2018 End: 04-23-2018 Patient encounter BERLIN Demarco [facility] Start: 04-21-2018 End: 04-21-2018 Patient encounter [place] Demarco [facility] Start: 04-16-2018 End: 04-16-2018 Patient encounter COLLETTE PISANO [facility] Start: 04-10-2018 End: 04-10-2018 Patient encounter BER[place] Dav AZULDrew [facility] Start: 04-08-2018 End: 04-08-2018 Patient encounter MELLISA CLARKE [facility] Patient encounter status Referri ng Provider Unknown [facility] Work Phone: Procedures Date Procedure Procedure Detail Performing Clinician Start: 04-14-2025 Follow-up visit Follow-up BENNY STOREY Start: 06-24-2024 Ecg routine ecg w/le ast 12 lds w/i&r Gillian Taylor MD Work Phone: Start: 06-24-2024 Follow-up visit Follow-up GILLIAN TAYLOR Start: 06-08-2024 End: 06-08-2024 Needle emg ea extremty w/paraspinl area complete Aleyda Lackey MD Work Phone: Start: 05-20-2022 History of coronary artery bypass grafting Hx of CABG Elise Borjas MD Work Phone: Cataract surgery Referring P ruthie Unknown Coronary artery bypa ss graft Referring [...] bypass grafting Hx of CABG Pablo Zaragoza SWEET [employer]AT[employer] 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 Work Phone: History of coronary artery bypass grafting Hx of CABG Keron LANCEC Work Phone: Prosthetic arthropla sty of shoulder Referring Provider Unknown Total replacement of hip Ref erring Provider Unknown Plan of Treatment Date Care Activity Detail Author Start: 08-13-2033 DTaP,Tdap and Td Vaccines (2 - Td or Tdap) DTaP,Tdap and Td Vaccines (2 - Td or Tdap) [facility] Start: 10-17-2025 End: 10-17-2025 Patient encounter procedure 10/17/2025 10:15 AM EST Office Visit [facility] [address] [place] [id number] Tree Krishnan, DO [address] [place] [address] [facility] Start: 06-24-2025 Adult BMI Screening Adult BMI Screening [facility] Start: 06-24-2025 Tobacco Screening Tobacco Screening [facility] Start: 05-16-2025 End: 05-16-2025 Patient encounter procedure 05/16/2025 10:40 AM EDT Office Visit [facility] SANTIAGO [address] [place] [address] Linsey Hall PA [address] [place] [address] [facility] [place] Start: 05-09-2025 Influenza vaccination [facility] Start: 04-15-2025 End: 04-15-2025 Patient encounter procedure JAMIN ARGUELLES Comment on above: Arrived Start: 2025 End: 2025 Patient encounter procedure 2025 9:15 AM EDT Office Visit [facility]AMIN ARGUELLES [address] [place] [address] Tree Krishnan, DO [address] [place] [address] Arrived JAMIN ARGUELLES Comment on above: Arrived Start: 12-23-2024 End: 12-23-2024 Patient encounter procedure 12/23/2024 10:40 AM EDT Office Visit HARRIETT SANTIAGO [address] [place] [address] Linsey Hall PA [address] [place] [address] [facility] SANTIAGO Start: 12-21-2024 End: 12-21-2024 Patient encounter procedure 12/21/2024 10:40 AM EDT Office Visit [facility] [address] [place] [phone] Linsey Hall PA [address] [place], [place] [id number] [facility] Start: 07-29-2024 Adult BMI Screening Adult BMI Screening [facility] Start: 07-29-2024 Tobacco Screening Tobacco Screening [facility] Start: 06-24-2024 End: 06-24-2025 CT Chest WO and CT angiogram Coronary arteries W contrast IV CT angiogram chest Imaging Routine Coronary artery disease involving coronary bypass graft of white earth heart without angina pectoris Expected: 06/24/2024, Expires: 06/24/2025 [facility] Comment on above: Expected: 06/24/2024, Expires: Start: 06-24-2024 End: 06-24-2025 Echo complete W/O contrast Echo complete W/O contrast Echocardiography Routine Coronary artery disease involving coronary bypass graft of white earth heart without angina pectoris Expected: 06/24/2024, Expires: 06/24/2025 [facility] Comment on above: Expected: 06/24/2024, Expires: Start: 06-24-2024 End: 06-24-2024 Patient encounter procedure 06/24/2024 2:00 PM EDT Office Visit [facility] [address] [place] [address] Gillian Taylor MD [address] [place] [address] [facility] Start: 06-09-2024 End: 06-09-2024 Patient encounter procedure 06/09/2024 11:20 AM EDT Office Visit [facility] [address] [facility] [address] [place] [phone] Linsey Hall PA [address] [place] [address] [facility] Start: 06-08-2024 End: 06-08-2024 Patient encounter procedure [facility] Comment on above: Arrived Start: 05-17-2024 End: 05-17-2024 Professional / ancillary services management 05/17/2024 8:30 AM EDT [facility] [address] [place] [address] Emely Cantu MD [address] [place] [address] [facility] Start: 05-09-2024 Influenza vaccination [facility] Start: 2010 Administration of varicella zoster vaccine Zoster (Shingles) Vaccine (1 of 2) [facility] Start: 2010 Pneumococcal Vaccine: 65+ Years (1 of 1 - PCV) Pneumococcal Vaccine: 65+ Years (1 of 1 - PCV) [facility] Start: 1979 DTaP,Tdap and Td Vaccines (1 - Tdap) DTaP,Tdap and Td Vaccines (1 - Tdap) [facility] Start: 1978 Adult BMI Follow Up Plan Adult BMI Follow Up Plan [facility] Start: 1972 Depression Screening Depression Screening [facility] Start: 1960 Screening for malignant neoplasm of colon [facility] End: 06-24-2025 CBC panel - Blood by Automated count CBC Lab Routine Paroxysmal atrial fibrillation ([facility]) 1 Occurrences starting 06/24/2024 until 06/24/2025 [facility] Comment on above: 1 Occurrences starting 06/24/2024 until 06/24/2025 End: 06-24-2025 Comprehensive metabolic 2000 panel - Serum or Plasma CMP Lab Routine Primary hypertension 1 Occurrences starting 06/24/2024 until 06/24/2025 [facility] Comment on above: 1 Occurrences starting 06/24/2024 until 06/24/2025 End: 06-24-2025 Lipid panel Lipid panel Lab Routine Mixed hyperlipidemia 1 Occurrences starting 06/24/2024 until 06/24/2025 [facility] Work Phone: Comment on above: 1 Occurrences starting 06/24/2024 until 06/24/2025 Immunizations Immunization Date Immunization Notes Care Provider Fa ric 08-13-2023 Influenza, injectabl e, Madin Fely Canine Kidney, preservative free, quadrivalent Tree Krishnan DO Work Phone: [facility] 08-13-2023 tetanus toxoid, reduced diphtheria toxoid, and acellular pertussis vaccine, adsorbed Tree Krishnan DO Work Phone: [facility] 08-13-2023 influenza virus vaccine, unspecified formulation Yuri Chapa MA [facility] 05-23-2021 influenza, high dose seasonal, preservative-free Yuri Chapa MA [facility] 05-23-2021 influenza virus vaccine, unspecified formulation Elise Borjas MD Work Phone: [facility] 10-25-2020 Pfizer Purple Cap SARS-CoV-2 Vaccination Yuri Chapa MA [facility] 09-20-2020 Pfizer Purple Cap SARS-CoV-2 Vaccination Yuriazalia Chapa MA [facility] Payers Date Payer Category Payer Medicare (Managed Care) [employer] [employer] [id number] 2019 Medicare [id number] 2019 Medicare HMO [facility] MEDICARE [id number] 1960 Unknown [id number]. [id number] 1960 Unknown [id number] [id number]. 2.593 1960 Unknown [id number] [id number]. 2.593 1960 Unknown [id number] [id number]. 2.593 1960 Unknown [id number] [id number]. 2.593 1960 Unknown [id number] [id number]. 2.1286 1960 Unknown [id number] [id number]. 2.1286 1960 Unknown [id number] [id number]. 2.1259 1960 Unknown [id number] [id number]. 2.1259 1960 Unknown [id number] [id number]. 2.1259 1960 Unknown [id number] [id number]. 2.1259 1960 Unknown [id number]. 2.1259 1959 Medicare [id number] Unknown Social History Date Type Detail Facility Start: 03-15-2024 End: 08-08-2025 Social alcohol use Social alcohol use [facility] Start: 05-20-2022 End: 03-15-2024 Tobacco smoking status NHIS Ex-smoker [facility] Start: 09-08-1974 End: 09-08-2009 History of tobacco use Current smoker [facility] Start: 09-08-1974 End: 09-08-2009 History of tobacco use Cigarette Smoker [facility] Start: 05-20-2022 End: 03-15-2024 Tobacco use and exposure Smokeless tobacco non-user [facility] Start: 03-15-2024 End: 04-15-2025 Alcoholic beverage intake Lifetime non-drinker (finding) [facility] Start: 03-15-2024 End: 04-15-2025 Tobacco use panel [facility] Start: 02-13-2023 Alcohol Comment ocassionally [facility] Start: 1960 Sex assigned at Male [facility] Start: 02-21-2023 Gender identity Identifies as male gender (finding) [facility] Start: 07-29-2023 End: 06-24-2024 Alcoholic beverage intake Ex-drinker (finding) [facility] Within the past 12 months we worried whether our food would run out before we got money to buy more. Never True [facility] Start: 05-20-2022 Alcohol Comment ocassional [facility] Start: 1960 Sex assigned at Not on file P [facility] Start: 03-22-2022 Sex Male (finding) [facility] Clinical Notes 04-30-2024 to 05-27-2025 Tree Krishnan DO - 04/15/2025 9:30 AM Aj Krishnan, - 2025 9:15 AM GUILLERMO Forbes - 12/27/2024 10:20 AM EDTTelephone Encounter - Leanne Mancia MA - 12/20/2024 4:44 PM EDT Note Date & Type Note Facility 05-27-2025 Note [place] [facility] Note Reason for cardiology visit: Follow-up after stress test HPI: 05/27/2025 The patient is here for follow-up visit after he underwent a cardiac catheterization 04/21/2025 which showed occluded graft to LAD but the proximal LAD stenosis had normal IFR. He also had significant coronary ectasia in the left circumflex artery and normal left ventricle EDP 10 mmHg. He was started on Eliquis for coronary ectasia which he was already on it for A-fib. He denies chest pain at rest or with exertion. He has a chronic dyspnea on exertion due to COPD. He denies orthopnea or paroxysmal nocturnal dyspnea or dizziness or palpitations. He admits mild legs edema which not changed from baseline 04/14/2025 Patient is here today for follow-up [...] is on BiPAP during the night 08/16/2024 Giancarlo Tabor is a 65 y.o. male with history of coronary artery disease and coronary artery bypass surgery and maze procedure, paroxysmal atrial fibrillation, s/p ablation in [place], thoracic aortic aneurysm, left ventricle dysfunction, hypertension, hyperlipidemia COPD, prior tobacco and alcohol abuse [facility] He states that overall he has [...] Medications: albuterol (Ventolin HFA) 90 mcg/actuation inhaler, Inhale 1 puff every 4 (four) hours if needed for wheezing or shortness of breath., Disp: , Rfl: apixaban (Eliquis) 5 mg tablet, Take 1 tablet (5 mg) by mouth two times daily., Disp: 180 tablet, Rfl: 3 metoprolol succinate XL (Toprol-XL) 50 mg 24 hr tablet, Taking 100mg in the AM, 50mg in the PM, Disp: 270 tablet, Rfl: 3 pregabalin (Lyrica) 150 mg capsule, Take 150 mg by mouth 3 times a day., Disp: , Rfl: sodium chloride 0.9 % nebulizer solution, Take 3 mL by nebulization if needed., Disp: , Rfl: Trelegy Ellipta 200-62.5-25 mcg blister with device, Inhale 1 puff in the morning., Disp: , Rfl: aspirin 81 mg chewable tablet, Chew 81 mg in the morning., Disp: , Rfl: atorvastatin (Lipitor) 80 mg tablet, Take 1 tablet (80 mg) by mouth at bedtime., Disp: 90 tablet, Rfl: 3 azithromycin (Zithromax) 250 mg tablet, Take 250 mg by mouth in the morning., Disp: , Rfl: cholecalciferol, vitamin D3, 50 mcg (2,000 unit) capsule, Take 1 capsule by mouth in the morning., Disp: , Rfl: dapagliflozin propanediol (Farxiga) 10 mg, Take 1 tablet (10 mg) by mouth once daily as directed., Disp: 90 tablet, Rfl: 3 ipratropium-albuteroL (Duo-Neb) 0.5-2.5 mg/3 mL nebulizer solution, INHALE 1 vial via NEBULIZER FOUR TIMES DAILY NEEDED, Disp: , Rfl: lisinopril 5 mg tablet, Take 1 tablet (5 mg) by mouth once daily as dire (more content not included)... [facility] 04-15-2025 History of Present illness Narrative Subjective [...] tube with replacement documented in this encounter [facility] 04-14-2025 Note [place] [facility] Note [...] alcohol abuse He used to follow with [facility] cardiology. He states that overall [...] , Rfl: theop (more content not included)... [facility] 2025 History of Present illness Narrative Subjective [...] for 10 days. Chronic anticoagulation Comments: Continue Artemio, follow up with family physician and subspecialist documented in this encounter [facility] 12-31-2024 Note [place] [facility] Note Reason for cardiology [...] alcohol abuse He used to follow with [facility] cardiology. He states that overall [...] developed, in no (more content not included)... [facility] 12-27-2024 History of Present illness [...] triceps, wrist extensors, wrist extensors, wrist flexor, restaurant attendant strength 5/5. LUE Strength deltoid, biceps, triceps, wrist extensors, wrist extensors, wrist flexor, restaurant attendant strength 5/5. RLE Strength illopsoas, quadriceps, tibialis [...] or worsening symptoms documented in this encounter [facility] 12-20-2024 Telephone encounter Note Patient is in need of refill, appt had to be rescheduled due to provider being out. Please send to [facility] in [place] [facility] 12-20-2024 Miscellaneous Notes Patient is in need of refill, appt had to be rescheduled due to provider being out. 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 Explained to him that we do try to keep pt's with same doc but it does not always work out that way. Pt understood but has already seen the the other group. 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 Explained to him that we do try to keep pt's with same doc but it does not always work out that way. Pt understood but has already seen the the other group. [facility] 09-09-2024 Telephone encounter Note 06/09/2024 Continue Lyrica 150mg PO TID for neuropathic pain [facility] reviewed. Last filled 05/17/2024 for 90 day supply. Due 08/15/2024 [facility] 09-09-2024 Miscellaneous Notes 06/09/2024 Continue Lyrica 150mg PO TID for neuropathic pain [facility] reviewed. Last filled 05/17/2024 for 90 day supply. 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 male with history of coronary artery disease and coronary artery bypass surgery and maze procedure, paroxysmal atrial fibrillation, s/p ablation in [place], thoracic aortic aneurysm, left ventricle dysfunction, hypertension, hyperlipidemia COPD, prior tobacco and alcohol abuse He used to follow with [facility] cardiology. He states that overall [...] gallops. RESPIR (more content not included)... [facility] 07-29-2024 Miscellaneous Notes [facility] 06/24/24 documented in this encounter [facility] 07-29-2024 Telephone encounter Note [facility] History of Present illness Narrative Elise Tabor Date of visit: 06/24/2024 Date of : 1960 Age: 64 y.o. Patient Active Problem List Diagnosis Coronary artery disease involving coronary bypass graft of white earth heart without angina pectoris Paroxysmal atrial fibrillation [...] 65 mg by mouth daily with breakfast. erkxfufrzri-pvubtumvf-twnvvajp (TRELEGY ELLIPTA) 200-62.5-25 mcg blister with device [...] artery disease involving coronary bypass graft of white earth heart without angina pectoris - POCT EKG [...] APRN-CHAO Referring Physician: Kacie Del Real MD [address] [place] [address] documented in this encounter [employer] 06-24-2024 Instructions Gillian Taylor MD - 06/24/2024 2:00 PM EDT Laboratory studies CTA of the aorta Echocardiogram [facility]-23[facility]24 Miscellaneous Notes Called patient to remind them to bring their most current copy of their medication list with them to their appt. Patient verbalizes understanding. documented in this encounter [facility] 06-23-2024 Telephone encounter Note Called patient to remind them to bring their most current copy of their medication list with them to their appt. Patient verbalizes understanding. [facility] 06-09-2024 History of Present illness Narrative Subjective Elise Tabor is a 64 y.o. year old male Chief Complaint Patient presents with Back Pain Neck Pain Tremors Past Medical History: Diagnosis Date Anemia Atrial fibrillation ([facility]) Celiac disease ([facility]) 03/04/2019 Cervicalgia 04/08/2018 Chronic obstructive lung disease ([facility]) 01/22/2018 Chronic obstructive pulmonary disease (COPD) ([facility]) Coronary artery disease ([facility]) Emphysema of lung ([facility]) H/O hernia repair Headache in back of head 04/08/2018 Peripheral polyneuropathy 06/27/2023 Pneumonia Rheumatoid arthritis ([facility]) Sinus tachycardia 01/22/2018 Past Surgical History: [...] ocassionally HPI Lumbosacral radiculopathy -on Lyrica -pain 9/ today -back pain is constant -pain starts [...] handles -admits hand weakness -some trouble with restaurant attendant ROS Review of Systems Constitutional: Negative for [...] triceps, wrist extensors, wrist extensors, wrist flexor, restaurant attendant strength 5/5. LUE Strength deltoid, biceps, triceps, wrist extensors, wrist extensors, wrist flexor, restaurant attendant strength 5/5. RLE Strength illopsoas, quadriceps, tibialis [...] or worsening symptoms documented in this encounter [facility] 06-08-2024 History of Present illness Narrative Images from the original note were not included. Reason for Appointment: EMG Patient: Elise Tabor : 1960 EMG Computer: [employer] Referring Physician: Roland Bill PA-C EMG: WALTER member of technical staff: Vera Zuñiga CMA Office Location: [place] Reason for EMG: c/o pain and paresthesia in the arm from the shoulder down. No Hx of DM, takes Eliquis and ASA Comments: Procedure explained to the patient who expressed understanding. documented in this encounter [facility] 05-14-2024 Miscellaneous Notes Phoned pt to advise that appt scheduled for 05/17/2024 is the date that his EM will be sent out and is NOT an actual appt. Verbalized understanding. documented in this encounter [facility] 05-14-2024 Telephone encounter Note Phoned pt to advise that appt scheduled for 05/17/2024 is the date that his EM will be sent out and is NOT an actual appt. Verbalized understanding. [facility] 04-30-2024 Miscellaneous Notes SNAP SHEARER, Patient called and said that he has [...] since he has not been in a-fib [facility] 2018, is there a chance he would be able to dc Eliquis at some point. Please advise. Thank you! 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 This is something we would need [...] patient to call us back to review SNAP SHEARER's response. documented in this encounter [facility] 04-30-2024 Telephone encounter Note SNAP SHEARER, Patient called and said that he has [...] since he has not been in a-fib [facility] 2017, is there a chance he would be able to dc Eliquis at some point. Please advise. Thank you! 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 [facility] 04-30-2024 Telephone encounter Note This is something [...] further. Would continue Eliquis in the meantime. [facility] Telephone encounter Note Amml asking patient to call us back to review SNAP SHEARER's response. [facility] Evaluation note Diagnosis Carpal tunnel syndrome of left wrist- Primary documented in this encounter [facility] Diagnosis Degeneration of intervertebral disc of lumbar region with discogenic back pain and lower extremity pain- Primary Neck pain Cervicalgia Chronic daily headache Headache Tremor Abnormal involuntary movements documented [facility]* Diagnosis DDD (degenerative disc disease), lumbar Degeneration of lumbar or lumbosacral intervertebral disc Lumbosacral radiculopathy Thoracic or lumbosacral neuritis or radiculitis, unspecified documented [facility]* Diagnosis DDD (degenerative disc disease), lumbar Degeneration of lumbar or lumbosacral intervertebral disc Lumbosacral radiculopathy Thoracic or lumbosacral neuritis or radiculitis, unspecified documented in this encounter [facility]* Diagnosis Coronary artery disease involving coronary bypass graft of [place] heart without angina pectoris Hx of CABG Postsurgical aortocoronary bypass status Paroxysmal atrial fibrillation (CMS-HCC) Atrial fibrillation Aneurysm of ascending aorta without rupture (CMS-HCC) History of maze procedure [facility] Diagnosis Coronary artery disease involving coronary bypass graft of [place] heart without angina pectoris Hx of CABG Postsurgical aortocoronary bypass status Paroxysmal atrial fibrillation (CMS-HCC) Atrial fibrillation Aneurysm of ascending aorta without rupture (CMS-HCC) History of maze procedure documented in this encounter [facility]* Diagnosis Coronary artery disease involving coronary bypass graft of [place] heart without angina pectoris Paroxysmal atrial fibrillation (CMS-HCC) Atrial fibrillation Aneurysm of ascending aorta without rupture (CMS-HCC) Hx of CABG 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 [facility] Diagnosis Coronary artery disease involving coronary bypass graft of [place] heart without angina pectoris- Primary Paroxysmal atrial fibrillation (CMS-HCC) Atrial fibrillation Primary hypertension Unspecified essential hypertension Mixed hyperlipidemia Left ventricular dysfunction Left heart failure [facility] this [facility] Diagnosis Coronary artery disease involving coronary bypass graft of [place] heart without angina pectoris Paroxysmal atrial fibrillation (CMS-HCC) Atrial fibrillation Aneurysm of ascending aorta without rupture (CMS-HCC) Hx of CABG 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 documented [facility] this [facility]* Diagnosis Coronary artery disease involving coronary bypass graft of [place] heart without angina pectoris Hx of CABG Postsurgical aortocoronary bypass status Paroxysmal atrial fibrillation (CMS-HCC) Atrial fibrillation Aneurysm of ascending aorta without rupture (CMS-[facility]) History of maze procedure documented in this encounter [facility]* Diagnosis DDD (degenerative disc disease), [...] of 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 documented in this encounter [facility] NarrativeMrLeyla Tabor is referred for consideration of LVRS. 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 He is on 3 L nasal cannula oxygen chronically. He is set to begin pulmonaryrehabilitation.[facility] Work Phone: History of Present illness NarrativeMrLeyla Tabor is referred for consideration of LVRS. 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 He is on 3 L nasal cannula oxygen chronically. He is set to begin pulmonaryrehabilitation.[facility] Work Phone: History of Present illness NarrativeMrLeyla Tabor is referred for consideration of LVRS. 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 He is on 3 L nasal cannula oxygen chronically. He is set to begin pulmonaryrehabilitation.[facility] Work Phone: InstructionsNot on filedocumented in [...] left wrist Procedures NVC 7-8 Nerves Aleyda Lackey MD [address] [place] [address] Referral ID Status Reason Start Date Expiration Date V isits Requested Visits Authorized [id number] Pending Review 06/08/2024 12/05/2024 1 1 Additional Source Comments (unrecognized sect ion and content) No Status Records FoundNo Status Records FoundNo Status Records FoundNo Status Records FoundNo Status Records FoundNo Status Records FoundNo Status Records Found INFORMATION SOURCE (unrecogn ized section and content) DATE CREATED AUTHOR 07/04/2018 [facility] DATE CREATED AUTHOR AUTHOR'S ORGANIZ ATION 06/09/2022 [facility] DATE CREATED AUTHOR AUTHOR'S ORGANIZ ATION 06/09/2022 [facility] DATE CREATED AUTHOR AUTHOR'S ORGANIZ ATION 02/14/2023 [facility] DATE CREATED AUTHOR AUTHOR'S ORGANIZ ATION 07/06/[address] [facility] DATE CREATED AUTHOR AUTHOR'S ORGANIZ ATION 04/17/2025 [facility] EPIC DATE CREATED AUTHOR AUTHOR'S ORGANIZ ATION 06/10/2025 [facility] Care Teams (unrecognized sec tion and content) Yeast Cake Cutter Relationship Specialty Start Date End Date Risa Mcnulty NP [address] [place] [address] Referring Physician Family Medicine 03/15/24 Yeast Cake Cutter Relationship Specialty Start Date End Date Risa Mcnulty NP [address] [place] [address] Referring Physician Family Medicine 03/15/24 Yeast Cake Cutter Relationship Specialty Start Date End Date Risa Mcnulty NP [address] [place] [address] Referring Physician Family Medicine 03/15/24 Yeast Cake Cutter Relationship Specialty Start Date End Date Risa Mcnulty NP [address] [place] [address] Referring Physician Family Medicine 03/15/24 Yeast Cake Cutter Relationship Specialty Start Date End Date Risa Mcnulty NP [address] [place] [address] Referring Physician Family Medicine 03/15/24 Yeast Cake Cutter Relationship Specialty Start Date End Date Kacie Del Real MD [address] [place] [address] PCP - General Family Medicine 03/22/22 Yeast Cake Cutter Relationship Specialty Start Date End Date Kacie Del Real MD [address] [place] [address] PCP - General Family Medicine 03/22/22 Yeast Cake Cutter Relationship Specialty Start Date End Date Kacie Del Real MD [address] [place] [address] PCP - General Family Medicine 03/22/22 Yeast Cake Cutter Relationship Specialty Start Date End Date Kacie Del Real MD [address] [place] [address] PCP - General Family Medicine 03/22/22 Yeast Cake Cutter Relationship Specialty Start Date End Date Kacie Del Real MD [address] [place] [address] PCP - General Family Medicine 03/22/22 Yeast Cake Cutter Relationship Specialty Start Date End Date Risa Mcnulty APRN-PETAL CUTTER [address] [place] [address] PCP - General Family Medicine 06/24/24 Yeast Cake Cutter Relationship Specialty Start Date End Date Risa Mcnulty APRN-PETAL CUTTER [address] [place] [address] PCP - General Family Medicine 06/24/24 Yeast Cake Cutter Relationship Specialty Start Date End Date Risa Mcnulty APRN-PETAL CUTTER [address] [place] [address] PCP - General Family Medicine 06/24/24 Yeast Cake Cutter Relationship Specialty Start Date End Date Risa Mcnulty SWEET POTATO DISINTEGRATOR-PETAL CUTTER [address] [place] [address] PCP - General Family Medicine 06/24/24 Yeast Cake Cutter Relationship Specialty Start Date End Date Risa Mcnulty NP [address] [place] [address] Referring Physician Family Medicine 03/15/24 Yeast Cake Cutter Relationship Specialty Start Date End Date Risa Mcnulty NP [address] [place] [address] Referring Physician Family Medicine 03/15/24 Yeast Cake Cutter Relationship Specialty Start Date End Date Risa Mcnulty NP [address] [place] [address] Referring Physician Family Medicine 03/15/24 Yeast Cake Cutter Relationship Specialty Start Date End Date Risa Mcnulty NP [address] [place] [address] Referring Physician Family Medicine 03/15/24 Reason for Visit (unrecogniz ed section and content) Specialty Diagnoses / Procedures Referred By Tonya t Referred To Contact Neurology Diagnoses LUE EMG paresthesias of hand, numbness and tingling, ref by Wei Bill PACr20.2 Procedures AL NERVE CONDUCTION STUDIES 9-10 STUDIES AL NEEDLE EMG EA EXTREMTY W/PARASPINL [place] [address] [place] [address] Aleyda Lackey MD [address] [place] [address] Referral ID Status Reason Start Date Expiration Date V isits Requested Visits Authorized [id number] Closed Perform Procedure 06/08/2024 12/05/2024 1 1 [...] BE BASED ON THE PRIMARY CLINICAL RECORDS. [employer] provides no warranty or guarantee of the accuracy or completeness of information in this document.
--- NOTE | 2025-06-14 10:01 | XR_ITS ---
[facility] [place] [id number] Patient Name: ELISE TABOR MRN: [id number] date: 1960 Sex: M Assigned Patient Location: LAB Current Patient Location: LAB Accession/Order Number: [id number] Exam Date: 06/14/2025 10:12 Report Date: 06/14/2025 11:01 At the request of: DONNA RAMOS MD Procedure: XR hip RT 2V w/ pelvis RIGHT HIP WITH AP PELVIS - 3 views CLINICAL DATA: Right hip pain since fall a month ago. History of hip replacements. Comparison: CT 04/01/2023 AP view of the pelvis as well as AP and frog-lateral views of the right hip were obtained. There is osteopenia. Bilateral hip prostheses are again visualized. The left femoral stem is not included in its entirety. Otherwise the hardware appears intact and unchanged from the prior. No acute fracture or dislocation is identified. The SI joints are intact. There is subtle scoliotic curvature and degenerative change at the spine. No soft tissue abnormalities are present. XR/XR hip RT 2V w/ pelvis IMPRESSION: NO ACUTE BONY FINDINGS. Impression dictated by: Uyen Salazar M.D. 06/14/2025 11:01 AM Dictation Location: [place] [address] Electronically authenticated by: [id number] Y Date: 06/14/2025 11:01
[2025-06-14 10:33] LABS: Hematocrit 41.0 % (42.0-54.0); Hemoglobin 13.3 g/dL (14.0-18.0); Immature Granulocytes Abs Auto 0.07 10^3/uL (0.00-0.03); Immature Granulocytes Pct Auto 0.9 % (0.0-0.5); Lymphocytes Absolute Auto 0.8 10^3/uL (1.2-3.8); Mean Corpuscular HGB Conc 32.4 g/dL (29.9-35.2); Mean Corpuscular Hemoglobin 32.7 pg (25.9-34.0); Mean Corpuscular Volume 100.7 fL (80.0-94.0); Platelet Count 120 10^3/uL (150-450); Red Blood Count 4.07 10^6/uL (4.70-6.10); White Blood Count 8.0 10^3/uL (4.0-11.0)
[2025-06-14 10:44] LABS: Glucose Urine UA >=1000 mg/dL (NEGATIVE)
[2025-06-14 10:57] LABS: Cast Seen? NONE SEEN #/LPF (NONE SEEN); Crystals Seen? None Seen #/HPF (None Seen)
[2025-06-14 11:20] LABS: Alanine Aminotransferase 29 U/L (16-63); Albumin Globulin Ratio 1.2; Albumin Level 3.6 g/dL (3.4-5.0); Alkaline Phosphatase 46 U/L (46-116); Anion Gap 10.4; Aspartate Amino Transferase 18 U/L (15-37); Blood Urea Nitrogen 29.0 mg/dL (7.0-18.0); Calcium 9.3 mg/dL (8.5-10.1); Carbon Dioxide 32.8 mmol/L (21.0-32.0); Chloride 105 mmol/L (98-107); Estimated GFR (African America >60 (>=60 mL/min/1.73m^2); Estimated GFR (Non-African Ame >60 (>=60 mL/min/1.73m^2); Globulin 3.1 g/dL; Glucose 95 mg/dL (74-106); Potassium 4.2 mmol/L (3.5-5.1); Sodium 144 mmol/L (136-145); Total Protein 6.7 g/dL (6.4-8.2)
== END 2025-06-14 09:47 | disposition home or self-care (01) ==
LOC: LAB 09:49
PROVIDERS: PCP Family Medicine; Visit Provider Family Medicine
DX: M25.551 Pain in right hip (principal); N39.0 Urinary tract infection, site not specified
CPT/HCPCS: 36415; 73502; 80053; 81001; 85025; 87086

== ENCOUNTER 2025-06-14 13:04 | Outpatient (OUT) | payer MEDICARE, SELFPAY ==
--- OUTSIDE RECORDS SUMMARY | 2025-06-14 13:08 | XMS_ITS | Clinical Summary ---
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 angina pectoris 05/20/2022 History of maze procedure 05/20/2022 Hx of CABG 05/20/2022 Paroxysmal atrial fibrillation 05/20/2022 Thoracic aortic aneurysm without rupture 022 Resolved Problems Problem Noted Date Diagnosed Date Resolved Date Centrilobular emphysema 03/25/202503/08 Overview (2025): Noted by [facility] last documented on [id number] Hypertensive heart disease with heart failure 03/25/20 25 2025 Overview (2025): Noted by [facility] last documented on [id number] Chronic anticoagulation 08/16/202403/08 [...] Office Visit [facility] [address] [place] [address] Tree Carmona DO Otorrhea of right ear (Primary Dx); Dysfunction of right eustachian tube; Chronic anticoagulation 04/15/2025 Bamboo flowsheet [facility] [address] [place] [address] Tree Carmona, 04/15/2025 Travel 2025 9:15 AM EDT Office Visit [facility] [address] [place] [place] [address] Tree Carmona, Dysfunction of right eustachian tube (Primary Dx); Otorrhea of right ear; Chronic anticoagulation 2025 Bamboo flowsheet [facility] [place] [facility] [address] [place] [address] Tree Carmona, 2025 Travel 03/21/2025 Telephone [facility] [place] [facility] [address] [place] [address] Tree Carmona, DO from Last 3 Months [...] Office Visit [facility] [address] [facility] [address] [place] [phone] Yuri Rowe DPM [address] [facility] [address] [place] [address] 10/17/2025 10:15 AM EST Office Visit [facility] [place] [facility] [address] [place] [address] Tree Carmona DO [address] [place] [address] Health Maintenance Due Date Last Done Comments CT Colonography 1960 Colonoscopy 1960 Colorectal Cancer Screening 1960 FIT-DNA 1960 FIT 1960 FOBT 1960 Sigmoidoscopy 1960 Pneumococcal Vaccine: 65+ Ye ars (1 of 1 - PCV) 2010 Influenza Vaccine (#1) 2025 08/13/2023, 2020 Insurance [facility] MEDICARE ADVANTAGE Care Teams Kiln Loader Relationship Specialty Start Date End Date Pauly Santacruz NP [address] [place] [address] Referring Physician Family Medicine 03/15/24
--- OUTSIDE RECORDS SUMMARY | 2025-06-14 13:09 | XMS_ITS | Encounter Summary ---
Author Organization [facility] Address [address] [place] [address] Care Team Providers Care Director Information Security Name Role Phone Mario Zayas MD Primary Care Provider [phone] Encounter Details Date Type Department Care Team (Late st Contact Info) Description 06/02/2025 Telephone [facility] [address] [place] [address] Melita Ignacio MA Social History Tobacco Use Types Packs/Day [...] filedocumented in this encounter Care Teams Director Information Security Relationship Specialty Start Date End Date Mario Zayas MD [address] [facility] [address] [address] PCP - General Family Medicine 02/09/25 documented as of this encounter
--- OUTSIDE RECORDS SUMMARY | 2025-06-14 13:09 | XMS_ITS | Clinical Summary ---
Author Organization [employer] [facility] tem Address [id number] [address] [place] [address] Care Team Providers Care Adjunct Psychology Faculty Member Name Role Phone Pauly Santacruz RESIDENT SERVICES COORDINATOR-RIVER RAFTING GUIDE Primary Care Provider [phone] Allergies Active Allergy Reactions Criticality Noted Date [...] artery disease involving coronary bypass graft of [place] heart without angina pectoris,Paroxys mal atrial fibrillation [...] artery disease involving coronary bypass graft of [place] heart without angina pectoris,Hx of CABG,Paroxysmal atrial [...] artery disease involving coronary bypass graft of [place] heart without angina pectoris,Hx of CABG,Paroxysmal atrial [...] artery disease involving coronary bypass graft of [place] heart without angina pectoris,Paroxys mal atrial fibrillation [...] artery disease involving coronary bypass graft of [place] heart without angina pectoris,Hx of CABG,Paroxysmal atrial [...] disease invo lving coronary bypass graft of [place] heart without angina pectoris 05/20/2022 Paroxysmal atrial [...] 08/13/2023 Medical Devices Not on file Insurance [facility] MEDICARE Care Teams Adjunct Psychology Faculty Member Relationship Specialty Start Date End Date Pauly Santacruz APRN-CHAO [address] [place] [phone] PCP - General Family Medicine 06/24/24
--- OUTSIDE RECORDS SUMMARY | 2025-06-14 13:09 | XMS_ITS | Encounter Summary ---
Author Organization [facility] Address [address] [place] [address] Care Team Providers Care Snowboard Instructor Name Role Phone Mario Zayas MD Primary Care Provider [phone] Encounter Details Date Type Department Care Team (Late st Contact Info) Description 04/02/2025 Results Follow-Up [facility] [address] [place] [phone] Dorinda Diaz MD [address] [facility] [address] [place] [address] Lexiscan Stress Myocardial Perfusion Imaging Social History [...] PM EDT documented as of this encounter Functional Status * BP Answer Date of Assessment Author 84/56 05/27/2025 11:01 AM EDT Tari Day am, [place] * Pulse Answer Date of Assessment Author 72 05/27/2025 11:01 AM EDT Tari Day am, [place] * Pain Assessment Timer Question Answer Date of Assessment Author Restart Pain Assessment Timer Yes 04/21/2025 3:45 PM EDT Flaca Roblero RN * Pain Assessment Question Answer Date of Assessment Author Pain Assessment No/denies pain 04/21/2025 3:45 PM EDT Flaca Roblero RN * Patient Position Answer Date of Assessment Author Sitting 05/27/2025 11:01 AM EDT Tari Day am, [place] * BP Answer Date of Assessment Author 84/56 05/27/2025 11:01 AM EDT Tari Day am, [place] * Pulse Answer Date of Assessment Author 72 05/27/2025 11:01 AM EDT Tari Day am, [place] * SpO2 Answer Date of Assessment Author 92 05/27/2025 11:01 AM EDT Tari Day am, [place] * Question Answer Date of Assessment Author Pulse rate from Plethysmogram (bpm) 70 04/21 3:45 PM EDT Flaca Roblero RN * Vital Signs Question Answer Date of Assessment Author Resp 20 04/21/2025 3:45 PM EDT Flaca Roblero RN Arterial Line MAP 1 (mmHg) 73 04/21/2025 3:1 5 PM EDT Flaca Roblero RN MAP (mmHg) 85 04/21/2025 3:45 PM EDT Flaca Roblero RN * Peripheral Vascular Question Answer Date of Assessment Author Pulses Left pedal;Right ped al;Left posterior tibial;Right posterior tibial 04/21/2025 10:47 AM EDT Carolin Felix RN Edema Right lower extremit y;Left lower extremity 04/21/2025 10:47 AM EDT Carolin Felix RN * RLE Neurovascular Assessment Question Answer Date of Assessment Author RLE Edema +1 04/21/2025 10:47 AM EDT Carolin Farah RN Right Posterior Tibial Pulse +1 04/21/2025 1 0:47 AM EDT Carolin Felix RN Right Pedal Pulse +2 04/21/2025 10:47 AM EDT Carolin Felix RN * LLE Neurovascular Assessment Question Answer Date of Assessment Author LLE Edema +1 04/21/2025 10:47 AM EDT Carolin Farah RN Left Posterior Tibial Pulse +1 04/21/2025 10 :47 AM EDT Carolin Felix RN Left Pedal Pulse +2 04/21/2025 10:47 AM EDT Carolin Felix RN * BP Location Answer Date of Assessment Author Left arm 05/27/2025 11:01 AM EDT Tari Day am, [place] * Respiratory Question Answer Date of Assessment Author Bilateral Breath Sounds Diminished 04/21/20 10:47 AM EDT Carolin Felix RN Respiratory Pattern Normal 04/21/2025 1 0:47 AM YAREDT Carolin Felix RN Respiratory Effort Labored 04/21/2025 10 :47 AM EDT Carolin Felix RN Respiratory Depth/Rhythm Regular 04/21/2025 10:47 AM EDT Carolin Felix RN Breath Sounds Bilateral breath sounds 04/21/2025 10:47 AM EDT Carolin Felix RN * Neurological Question Answer Date of Assessment Author Level of Consciousness Alert 10:47 AM YAREDT Carolin Felix RN Orientation Level Oriented X4 04/21/2025 10: 47 AM EDT Carolin Felix RN Cognition Appropriate judgement 04/21/2025 10:47 AM EDT Carolin Felix RN Speech Clear 04/21/2025 10:47 AM EDT Carolin Felix RN * Pain Assessment Question Answer Date of Assessment Author Pain Assessment No/denies pain 04/21/2025 3:45 PM EDT Flaca Roblero RN * [place] Suicide Severity Rating Scale Question Answer Date of Assessment Author 1. Have you wished you were or wished you could go to sleep and not wake up? No 04/21/2025 10:48 AM EDT Carolin Felix R N 2. Have you actually had any thoughts of killing yourself? No 04/21/2025 10:48 AM EDT Carolin Felix RN 6. Have you ever done anythi ng, started to do anything, or prepared to do anything to end your life? No 04/21/2025 10:48 AM EDT Carolin Dillard RN * Risk of Suicide Answer Date of Assessment Author No Risk 04/21/2025 10:48 AM EDT Carolin Felix RN * Patient Position Answer Date of Assessment Author Sitting 05/27/2025 11:01 AM EDT Tari Day am, [place] * Modified Pamela Question Answer Date of Assessment Author Activity 2 04/21/2025 4:01 PM EDT Flaca Roblero RN Respiration 2 04/21/2025 4:01 PM EDT Flaca Roblero RN Circulation 2 04/21/2025 4:01 PM EDT Flaca Roblero RN Consciousness 2 04/21/2025 4:01 PM EDT Flaca Roblero RN Oxygen Saturation 1 04/21/2025 4:01 PM EDT Flaca Roblero RN Modified Pamela Score 9 04/21/2025 4:01 PM EDT Flaca Roblero RN documented as of this encounter Mental Status * [place] Agitation Sedation Scale Question Answer Entry Date Author Madd[place] Agitation Sedation Scale (RASS) -2 04/21/2025 1:54 PM EDT Meng Persaud RN * Modified Pamela Question Answer Entry Date Author Activity 2 04/21/2025 4:01 PM EDT Flaca Roblero RN Respiration 2 04/21/2025 4:01 PM EDT Flaca Roblero RN Circulation 2 04/21/2025 4:01 PM EDT Flaca Roblero RN Consciousness 2 04/21/2025 4:01 PM EDT Flaca Roblero RN Oxygen Saturation 1 04/21/2025 4:01 PM EDT Flaca Roblero RN Modified Pamela Score 9 04/21/2025 4:01 PM EDT Flaca Roblero RN documented in this encounter Plan of Treatment Not on file documented as of this encounter Visit Diagnoses Not on filedocumented in this encounter Care Teams Snowboard Instructor Relationship Specialty Start Date End Date Mario Zayas MD [address] [place], [place] [address] [address] PCP - General Family Medicine 02/09/25 documented as of this encounter
--- OUTSIDE RECORDS SUMMARY | 2025-06-14 13:09 | XMS_ITS | Encounter Summary ---
Author Organization [facility] Address [address] [address] Care Team Providers Care Fudge Candy Maker Name Role Phone Mario Zayas MD Primary Care Provider [phone] Encounter Details Date Type Department Care Team (Late st Contact Info) Description 04/21/2025 Results Follow-Up [facility] [address] [place] [id number] Dorinda Diaz MD [address] [facility] [address] [place] [address] Cardiac catheterization Social History Tobacco Use Types [...] as of this encounter Functional Status * Question Answer Date of Assessment Author BP 110/73 04/21/2025 3:45 PM EDT Flaca Roblero RN Pulse 70 04/21/2025 3:45 PM EDT Flaca Roblero RN * Pain Assessment Timer Question Answer Date of Assessment Author Restart Pain Assessment Timer Yes 04/21/2025 3:45 PM EDT Flaca Roblero RN * Pain Assessment Question Answer Date of Assessment Author Pain Assessment No/denies pain 04/21/2025 3:45 PM EDT Flaca Roblero RN * Question Answer Date of Assessment Author Pulse rate from Plethysmogram (bpm) 70 04/21 3:45 PM EDT Flaca Roblero RN * Vital Signs Question Answer Date of Assessment Author BP 110/73 04/21/2025 3:45 PM EDT Flaca Roblero RN Pulse 70 04/21/2025 3:45 PM EDT Flaca Roblero RN Resp 20 04/21/2025 3:45 PM EDT Flaca Roblero RN SpO2 100 04/21/2025 3:45 PM EDT Flaca Roblero RN [...] 10:47 AM EDT Carolin Felix RN * Respiratory Question Answer Date of Assessment Author Bilateral Breath Sounds Diminished 04/21/20 10:47 AM EDT Carolin Felix RN Respiratory Pattern Normal 04/21/2025 1 0:47 AM EDT Carolin Felix RN Respiratory Effort Labored 04/21/2025 10 :47 AM EDT Carolin Felix RN Respiratory Depth/Rhythm Regular 04/21/2025 10:47 AM YAREDT Carolin Felix RN Breath Sounds Bilateral breath [...] 3:45 PM EDT Flaca Roblero RN * Sandoval Suicide Severity Rating Scale Question Answer Date of Assessment Author 1. Have you wished you were or wished you could go to sleep and not wake up? No 04/21/2025 10:48 AM EDT Carolin Felix R N 2. Have you actually had any thoughts of killing yourself? No 04/21/2025 10:48 AM YAREDT Carolin Felix RN 6. Have you ever done anythi ng, started to do anything, or prepared to do anything to end your life? No 04/21/2025 10:48 AM EDT Carolin Dillard RN * Risk of Suicide Answer Date of Assessment Author No Risk 04/21/2025 10:48 AM EDT Carolin Felix RN * Modified Pamela Question Answer Date of [...] on filedocumented in this encounter Care Teams Fudge Candy Maker Relationship Specialty Start Date End Date Mario Zayas MD [address] [place], [place] [address] [place] [address] PCP - General Family Medicine 02/09/25 documented as of this encounter
--- OUTSIDE RECORDS SUMMARY | 2025-06-14 13:09 | XMS_ITS | Clinical Summary ---
Author Organization [facility] Address [address] [place] [address] Phone Care Team Providers Care Bingo Worker Name Role Phone Unavailable Primary Care Provider [...]
--- OUTSIDE RECORDS SUMMARY | 2025-06-14 13:09 | XMS_ITS | Encounter Summary ---
Author Organization [facility] Address [id number] [address] [place] [address] Care Team Providers Care Returned Goods Receiving Clerk Name Role Phone Pauly Santacruz LOCKMAKER-NEWSPAPER REPORTER Primary Care Provider [phone] Reason for Referral * Cardiology (Routine) - Closed Specialty Diagnoses / Procedures Referred By Contac t Referred To Contact Diagnoses Paroxysmal atrial fibrillation ([facility]) Procedures Wireless Telemetry (In Office) Syed Cantu MD [address] [place] [address] Phone: tel: fax: Referral ID Status Reason Start Date Expiration Date Visits Re quested Visits Authorized [id number] Closed 05/03/2024 05/03/2025 1 1 Encounter Details Date Type Department Care Team (Late st Contact Info) Description 05/03/2024 Orders Only [facility] [address] [facility] [address] [place] [address] Kenisha Manning RN Paroxysmal atrial fibrillation ([facility]) (Primary Dx) Social History Tobacco Use [...] fibrillation documented in this encounter Care Teams Returned Goods Receiving Clerk Relationship Specialty Start Date End Date Pauly Santacruz APRN-FNP [address] [place] [address] PCP - General Family Medicine 06/24/24 documented as of this encounter
--- OUTSIDE RECORDS SUMMARY | 2025-06-14 13:09 | XMS_ITS | Encounter Summary ---
Author Organization [facility] Address [id number] [address] [place] [address] Care Team Providers Care Industrial Cafeteria Manager Name Role Phone Pauly Santacruz CREATIVE COORDINATOR-BALANCER SCALE Primary Care Provider [phone] Encounter Details Date Type Department Care Team (Late st Contact Info) Description 06/25/2024 Orders Only [facility] [address] [facility] [address] [place] [address] External, Scanning Provider Social History [...] ECG ORDERABLES Final Result Performing Organization Address City/State/[facility] Co de Phone Number MANUALLY TRANSCRIBED RESULTS * ECG 12 lead (06/25/2024 8:13 AM EDT) us Scanning Provider External ECG ORDERABLES Final Result Performing Organization Address City/State/[facility] Co de Phone Number MANUALLY TRANSCRIBED RESULTS documented in this encounter Visit Diagnoses Not on filedocumented in this encounter Care Teams Industrial Cafeteria Manager Relationship Specialty Start Date End Date Pauly Santacruz APRN-FNP [address] [place] [address] PCP - General Family Medicine 06/24/24 documented as of this encounter
--- OUTSIDE RECORDS SUMMARY | 2025-06-14 13:09 | XMS_ITS | Encounter Summary ---
Author Organization [facility] Address [id number] [address] [place] [address] Care Team Providers Care Boiler Shop Supervisor Name Role Phone Pauly Santacruz INFORMATION TECHNOLOGY ADVISOR-SCHEDULE PLANNING MANAGER Primary Care Provider [phone] Reason for Visit * Reason Comments Med Change Request Encounter Details Date Type Department Care Team (Late st Contact Info) Description 02/07/2025 Refill [facility] [address] [place] [address] Pablo Zaragoza, VIC-CHIEF OPERATOR HYDROFORMER [address] [place] [address] Med Change Request Social History Tobacco Use [...] Miscellaneous Notes * Telephone Encounter - Destiny Cnonell - 02/07/2025 3:33 PM EDT GATO LLD 06/24/24 CMP 06/07/23, ORDER IN PLACE LETTER SENT documented in this encounter Plan of Treatment Not on file documented as of this encounter Visit Diagnoses Diagnosis Coronary artery disease involving coronary bypass graft of [place] heart without angina pectoris Hx of CABG Postsurgical aortocoronary bypass status Paroxysmal atrial fibrillation ([facility]) Atrial fibrillation Aneurysm of ascending aorta without rupture History of maze procedure documented in this encounter Care Teams Boiler Shop Supervisor Relationship Specialty Start Date End Date Pauly Santacruz APRN-SCHEDULE PLANNING MANAGER [address] [place] [address] PCP - General Family Medicine 06/24/24 documented as of this encounter
--- OUTSIDE RECORDS SUMMARY | 2025-06-14 13:09 | XMS_ITS | Clinical Summary ---
Author Organization [facility] Address [address] [place] [address] Care Team Providers Care Historic Sites Supervisor Name Role Phone Mario Zayas MD Primary Care Provider [phone] Allergies No known active allergies Medications azithromycin [...] DOSES.- IF NO RELIEF CALL 911) 07/25/20 Active cholecalciferol, vitamin D3, 50 mcg (2,000 unit) capsule Take 1 capsule by mouth in the morning. Active zinc gluconate 50 mg tablet 1 (one) time each day at the same time. Active apixaban (Eliquis) 5 mg tabletIndications: Paroxysmal atrial fibrillation (CMS/HCC) Take 1 tablet (5 mg) by mouth two times daily. 180 tablet 3 02/10/20 25 Active atorvastatin (Lipitor) 80 mg tabletIndications: Hyperlipidemia, [...] the morning. 90 tablet 3 02/10/20 25 Active metoprolol succinate XL (Toprol-XL) 50 mg 24 hr tabletIndications: Palpitations Taking 100mg in the AM, 50mg in the PM 270 tablet 3 02/10/20 25 Active dapagliflozin propanediol (Farxiga) 10 mgIndications:Poncho gn hypertensive heart disease 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 Take 1 tablet (10 mg) by mouth once daily as directed. 90 tablet 3 04/08/20 25 Active sodium chloride 0.9 % nebulizer solution Take 3 mL by nebulization if needed. 03/23/20 25 Active pantoprazole (ProtoNix) 40 mg EC tablet Take 40 mg by mouth in the morning. 02/08/20 25 Active topiramate 50 mg tablet Take 1 tablet by mouth in the morning. 02/22/20 25 Active Active Problems Problem Noted Date Diagnosed Date Obstructive sleep apnea syndrome 05/29/2025 Benign hypertensive heart di sease 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 05/29/2025 Nausea 04/14/2025 Abnormal cardiovascular stress test 04/05/2025 Arthritis 08/16/2024 Celiac disease 08/16/2024 Coronary artery disease invo lving [place] coronary artery of [place] heart without angina pectoris 08/16/2024 Erectile dysfunction [...] Encounters Date Type Department Care Team Description 06/02/2025 Telephone [facility] [address] [place] [address] Melita Ignacio MA 05/27/2025 11:00 AM EDT Office Visit [facility] [address] [place] [address] Dorinda Diaz MD Coronary artery disease involving [place] coronary artery of [place] heart without angina pectoris (Primary Dx); Cardiomyopathy, ischemic; Chronic systolic heart failure (CMS/HCC); Aneurysm of ascending aorta without rupture; Paroxysmal A-fib (CMS/HCC); History of maze procedure; Benign hypertensive heart disease 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; Pure hypercholesterolemia; Mixed hyperlipidemia; Class 2 severe obesity due to excess calories with serious comorbidity and body mass index (BMI) of 35.0 to 35.9 in adult (CMS/HCC) 04/21/2025 12:30 PM EDT - 04/21/2025 1:30 PM EDT Surgery [facility] [address] [place] [address] Adam Valle MD Coronary angiography 04/21/2025 10:42 AM EDT - 04/21/2025 4:08 PM EDT Hospital Encounter [facility] [address] [place] [address] Adam Valle MD Abnormal cardiovascular stress test Discharge Disposition: Home or Self Care (01) 04/21/2025 Results Follow-Up [facility] [address] [place] [address] Dorinda Diaz MD Cardiac catheterization 04/21/2025 Travel 04/18/2025 Travel 04/14/2025 10:00 AM EDT Office Visit [facility] [address] [place] [address] Droinda Diaz MD Abnormal cardiovascular stress test (Primary Dx); Chronic systolic heart failure (CMS/HCC); Cardiomyopathy, ischemic; Paroxysmal A-fib (CMS/HCC); History of maze procedure; Aneurysm of ascending aorta without rupture; Essential hypertension; Pure hypercholesterolemia; Class 2 severe obesity due to excess calories with serious comorbidity and body mass index (BMI) of 35.0 to 35.9 in adult (CMS/[facility]) 04/12/2025 Telephone [facility] [address] [place] [facility] [address] Tari Nevarez MA 04/08/2025 Refill [facility] [address] [place] [facility] [address] Danni Vázquez MA Benign hypertensive heart disease 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 04/05/2025 Orders Only [facility] [address] [place] [facility] [address] Danni Vázquez MA Abnormal cardiovascular stress test (Primary Dx) 04/02/2025 Results Follow-Up [facility] [address] [place] [address] Dorinda Diaz MD Lexiscan Stress Myocardial Perfusion Imaging 03/21/2025 Orders Only [facility] [address] [place] [address] Provider, MD Rocky from Last 3 Months Family History Medical [...] AM EDT Temperature - - Respiratory Rate 20 04/21/2025 3:45 PM EDT Oxygen Saturation 92% 05/27/2025 11: 01 AM EDT 3 lpm o2 via n/c Inhaled Oxygen Concentration - - Weight 108 kg (237 lb) 05/27/2025 11:01 AM EDT Height 175.3 cm (5' 9 ) 05/27/2025 11:0 1 AM EDT Body Mass Index 35 05/27/2025 11:01 AM EDT Plan of Treatment Health Maintenance [...] 2025 10/25/2020, 09/20/2020 Influenza Vaccine (#1) 2025 3, 05/23/2021 Adult Tetanus 08/13/2033 08/13/2023 HIB Vaccines [...] infiltrated over the left radial artery. A 6-Ukrainian sheath was placed in left radial artery. Radial anti-vasospasm cocktail of verapamil 2.5 mg was administered through the sheath. All catheter exchanges were made over the Johnson guidewire. Left heart catheterization, ROLDAN and coronary angiography was performed with an IM, JL5 and a JR4 . At this time, it was apparent that the LAD had intermediate stenosis. Heparin anticoagulation was used for the PCI procedure. ACT was maintained at >250 seconds. A 6 [place] XB4 was engaged to the [place]. A [...] Activated clotting time (04/21/2025 1:45 PM EDT) Pathologist [facility] Activated Clotting Time 309(H) 82 - 152 s 04/21/2025 1:49 PM EDT [facility] Blood Venous blood specimen / Unknown 04/21/2025 1:45 PM EDT 04/21/2025 1:49 PM EDT Adam Valle MD LAB POINT OF CARE TEST DOCKED DEVICE UNSOLICITED RESULTS Final Result [facility]) [address] [place], [place] [id number] * Electrocardiogram, 12-lead (04/21/2025 12:25 PM EDT) Ventricular Rate 72 BPM GE MUSE Atrial Rate 72 BPM GE MUSE WA Interval 114 ms GE MUSE QRS DURATION 90 ms GE MUSE QT Interval 376 ms GE MUSE QTC CALCULATION(BAZE TT) 411 ms GE MUSE P [place] 37 degrees GE MUSE R-[place] 37 degrees GE MUSE T Wave [place] 119 degrees GE MUSE 04/21/2025 12:0 3 [...] l Result from Last 3 Months Insurance [facility] MEDICARE ADVANTAGE Care Teams Historic Sites Supervisor Relationship Specialty Start Date End Date Mario Zayas MD [address] [facility] [address] [address] PCP - General Family Medicine 02/09/25
--- OUTSIDE RECORDS SUMMARY | 2025-06-14 13:20 | XMS_ITS | CCD ---
Author Organization [facility] Care Team Providers Care Relay Associate Name Role Phone ERICK MELLISA STOHLER Unavailable [...] Unavail able SAMSA ., DARNELL Admitting Unavailable [facility] Primary Care Unavailable SAMSA ., DARNELL Attending Unavailable SAMSA ., DARNELL Consulting Unavailable SAMSA ., DARNELL Admitting Unavailable [facility] Primary Care Unavailable SAMSA ., DARNELL Attending Unavailable SAMSA ., DARNELL Consulting Unavailable GREG, KACEI Consulting Unavailable [facility] Primary Care Unavailable SAMSA ., DARNELL Attending Unavailable SAMSA ., DARNELL Consulting Unavailable SAMSA ., DARNELL Admitting Unavailable [facility] Primary Care Unavailable DR ALEYDA DYER Consulting Unavailable SAMSA ., DARNELL Attending Unavailable SAMSA ., DARNELL Admitting Unavailable SAMSA ., DARNELL Consulting Unavailable Noam CHRISTIAN, Risa Unavailable EMELY CANTU Referring Unavailable KACIE DEL REAL Primary Care Unavailable GILLIAN TAYLOR Attending Unavailable KACIE DEL REAL Referring Unavailable RISA MCNULTY Primary Care Unavailable Kacie Del Real MD Primary Care Provider Noam EDGING MACHINE CATCHER-SADDLE CUTTERRisa Primary Care Provider LINSEY HALL Attending Unavailable [...] Propensity to adverse reactions 2 GI intolerance [facility] (16 sources) Isosorbide Dinitrate Drug Allergy 2 Headache [facility] (11 sources) Gluten; Translations: [GLUTEN] Propensity to adverse reactions to food (disorder) 2 [facility] (11 sources) Isosorbide; Translations: [ISOSORBIDE MONONITRATE] Drug Allergy 2 Headache [facility] (1 source) ALLERGIES NOT ON FILE; Translations: [ALLERGIES NOT ON FILE] Propensity to adverse reactions (disorder) [facility] Repository Medications Current Medications Medication Drug Class(es) Dates Sig (Normalized) Sig (Original) [id number] 200 actuat albuterol 0.09 mg/actuat metered dose [...] artery disease involving coronary bypass graft of [place] heart without angina pectoris , Hx of [...] Ordered: 15-Mar-2022 DO Start : 15-Mar-2022 Active zgqibtvqabe-attalfsgn-stwjfw er (TRELEGY ELLIPTA) 200-62.5-25 mcg blister with device (10 sources) Start: 03-15-2022 tlusyvxhmag-bpepxxfah-kbhzgk er (TRELEGY ELLIPTA) 200-62.5-25 mcg blister with [...] artery disease involving coronary bypass graft of [place] heart without angina pectoris , Hx of [...] artery disease involving coronary bypass graft of [place] heart without angina pectoris , Hx of [...] artery disease involving coronary bypass graft of [place] heart without angina pectoris , Paroxysmal atrial [...] bedtime. 01/16/2023 Active take 1 capsule by [facility] every twenty-four hours in the [...] take 1 puff(s) by inhalation once daily Nbbxejfwept-Mdepxwzpb-Exrrhs 200-62.5-25 MCG/ACT aerosol powder Inhale 1 puff [...] [Coronary atherosclerosis of unspecified type of vessel, [place] or graft] Onset: 4 Resolved: 5 2025 [...] sources) Long-term current use of anticoagulant; Translations: [intermediate (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 of 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] Onset: 4 Resolved: [...] Chronic Unclassified (1 source) Neck Pain / 480335() Onset: 8 Unclassified (1 source) Stiffness / 343() Onset: 8 Unclassified (1 source) Back Pain / 12() Onset: 8 Unclassified (1 source) Upper Extremity Weakness / [id number]() Onset: 8 Unclassified (2 sources) Abnormal stress [...] 2025 2025 Chronic Other aftercare (2 sources) intermediate (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 of 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; Translations: [intermediate (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 of 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] Onset: 08-16-2024 Episodic [...] Range Facility Office Visiton 05-27-2025 Follow-up visit [id number] PadillaArmando loida Atkinson 1960 M Date Provider Department Center 05/27/2025 [id number] [facility] Family History Problem Relation Age of Onset Coronary artery disease Mother Coronary artery disease Father Family Status - Relation Status Age at Mother Father Sister Alive Level of Service:68873 CT OFFICE/OUTPATIENT ESTABLISHED MOD MDM 30 MIN Reason for Visit and Comments: Follow-up [112351] - Patient is here today for a follow up s/p cath. Patient states heart desir he feels well. Patient states he fell around labor day and possibly tore a hamstring. Post-Cath [731] Coronary Artery Disease [187] Hyperlipidemia [182] Hypertension [727160] Thoracic aortic aneurysm without rupture [Other] Cardiomyopathy [104] Atrial Fibrillation [80] Congestive Heart Failure [127] Normal [facility] Armaan 04-21-2025 ANES --------- Attestation signed by Juan Flores MD at 04/21/2025 12:57 PM I personally spoke with and examined Mr. Tabor with Dr. Saleh. He has a drop in LVEF and a positive stress test. Plan cors, LV and WALTERS angiography. He voices understanding of risks (, ID, bleeding, etc) and agrees to proceed. Patient: [...] Celiac disease 08/16/2024 Coronary artery disease involving [place] coronary artery of [place] heart without angina pectoris 08/16/2024 Erectile dysfunction 08/16/2024 Pain in wrist 08/16/2024 Peripheral polyneuropathy 08/16/2024 Cardiomyopathy, ischemic 08/16/2024 Chronic systolic heart failure ([facility]) 08/16/2024 Chronic anticoagulation 08/16/2024 Pure hypercholesterolemia 08/16/2024 Class 2 severe obesity due to excess calories with serious comorbidity and body mass index (BMI) of 35.0 to 35.9 in adult ([facility]) 08/16/2024 Mixed hyperlipidemia 06/24/2024 Essential hypertension 06/24/2024 DDD (degenerative disc disease), lumbar 01/20/2024 Neuropathy 01/20/2024 Paresthesia 01/20/2024 History of maze procedure 05/20/2022 Paroxysmal A-fib ([facility]) 05/20/2022 Thoracic aortic aneurysm without rupture 05/20/2022 Cervicalgia 04/08/2018 Headache in back of head 04/08/2018 Abnormal cardiovascular stress test 04/05/2025 Allergies: Allergies[2] ENGINEERING SYSTEMS ANALYST/Current Medications: Prescriptions Prior to Admission[3] Current Medications[4] [...] and agreed to proceed. Lars Saleh PGY-4 Marketing Professor [facility] [1] Past Medical History: Diagnosis Date [...] mouth 3 times (more content not included)... [facility] 04-21-2025 H&P reviewed. The guillermo so was examined and there are no changes to the H&P. Will proceed with coronary angiography for further evaluation of abnormal stress test. Consent for blood products obtained. Risks, benefits, and alternatives to procedure discussed with patient in detail who expressed understanding and agreed to proceed. [facility] NURSNOTEon 04-21-2025 NURSNOTE RN educated pt on [...] off of unit with all of belongings. [facility] NURSNOTE Patient requesting r alexandra do his DuoNeb nebulizer prior to having his cath done. Resp supervisor cell operation called to have the treatment done - states someone will be down as soon as possible [facility] 04-14-2025 [place] [facility] Note Reason for cardiology [...] alcohol abuse He used to follow with [facility]. He states that overall he has [...] Rfl: theop (more content not included)... Normal [facility] Office Visiton 04-14-2025 Follow-up visit [id number] Armando Tabor 1960 [facility] Provider Department Center 04/14/2025 BENNY NICOLE Family History Problem Relation Age of Onset Coronary artery disease Mother Coronary artery disease Father Family Status - Relation Status Age at Mother Father Sister Alive Level of Service:65832 CT OFFICE/OUTPATIENT ESTABLISHED MOD MDM 30 MIN Reason for Visit and Comments: Follow-up [709917] Abnormal stress test [Other] Cardiac Cath scheduled 04/28/2025 [Other] Coronary Artery Disease [187] Hyperlipidemia [182] Congestive Heart Failure [127] Hypertension [277646] COPD [313] Home o2 3lpm via N/C 31/03 [Other] [facility] 36on 04-12-2025 36 Benny Diaz MD Scarlett kimberly Nevarez MA Overall echo is normal with minor valvular heart disease LVM to advise patient of Dr. Diaz's findings. [facility] Orders Onlyon 04-05-2025 Orders Only [id number] Armando Tabor 1960 [facility] Provider Department Center 04/05/2025 DANNI ALCANTARA CAROL ANN [place] Family History Problem Relation Age of Onset Coronary artery disease Mother Coronary artery disease Father Family Status - Relation Status Age at Mother Father Sister Alive [facility] Results Follow-Upon 04-02-20 Results Follow-Up [id number] Armando Tabor 1960 M Date Provider Department Center 04/02/2025 BENNY NICOLE [facility] CARD MT HeartVAS Family History Problem Relation Age of Onset Coronary artery disease Mother Coronary artery disease Father Family Status - Relation Status Age at Mother Father Sister Alive [facility] Orders Onlyon 03-21-2025 Orders Only [id number] Armando Tabor 1960 M Date Provider Department Center 03/21/2025 [id number], HISTORICAL CAROL ANN [place] Family History Problem Relation Age of Onset Coronary artery disease Mother Coronary artery disease Father Family Status - Relation Status Age at Mother Father Sister Alive [facility] 36on 02-09-2025 36 Regarding lab [...] labs prior to apt in Apr-May 2025. [facility] Orders Onlyon 02-04-2025 Orders Only [id number] Armando Tabor 1960 M Date Provider Department Center 02/04/2025 [id number], HISTORICAL CAROL ANN [place] Family History Problem Relation Age of Onset Coronary artery disease Mother Coronary artery disease Father Family Status - Relation Status Age at Mother Father Sister Alive [facility] Office Visiton 12-31-2024 Follow-up visit [id number] Armando Tabor 1960 M Date Provider Department Center 12/31/2024 BENNY NICOLE CAROL ANN [place] Family History Problem Relation Age of Onset Coronary artery disease Mother Coronary artery disease Father Family Status - Relation Status Age at Mother Father Sister Alive Level of Service:55612 CT OFFICE/OUTPATIENT ESTABLISHED MOD MDM 30 MIN Reason for Visit and Comments: Coronary Artery Disease [187] Hyperlipidemia [182] Hypertension [138746] [facility] 36on 10-07-2024 36 Regarding echo [...] and blue Medicare care to apply for [employer] patient assistance program. Free 30 day voucher also provided for patient. BMP order given to be done in 1 week. LIPID,AST,ALT orders given to him to be completed in 2 months after increasing atorvastatin per Dr. Diaz. He verbalized understanding. [facility] Office Visiton 08-16-2024 Follow-up visit [id number] Armando Tabor 1960 M Date Provider Department Center 08/16/2024 [id number] DIAZ [facility] Family History Problem Relation Age of Onset Coronary artery disease Mother Coronary artery disease Father Family Status - Relation Status Age at Mother Father Level of Service:71426 CT OFFICE/OUTPATIENT NEW MODERATE MDM 45 MINUTES Reason for Visit and Comments: Atrial Fibrillation [80] - Had EKG at last apt with [facility] in Jun 2024. Denies chest pain and bleeding on Eliquis. Coronary Artery Disease [187] - CABG and MAZE in 2016 Hypertension [411851] Hyperlipidemia [182] COPD [313] - Sees Dr. Bunn [facility] POCT EKGOrdered By: Juana Hercules on 06-24-2024 Tactile System EMG 1 Extremeityon [facility] NVC 7-8 Nerveson 06-08-2024 [facility] THEOPHYLLINEon 12-30-2022 THEOPHYLLINE 18.0 ug/mL Normal 10.0-20.0 [facility] Comment on above: Performed By: #### T ADALID #### [facility] [address] [address] [address] Karen Lee THEOPHYLLINEon 12-17-2022 THEOPHYLLINE 8.3 ug/mL Critically low 10.0-20.0 [facility] Comment on above: Performed By: #### T ADALID #### [facility] [id number] Karen Lee Blood Pressure Cuff Sizeon [...] Activated Vitals Vital Signs Recorded: 29May2022 02:58PM Fxnkdpzinwc02.2 F Heart Rate91 Jzxoyldpesv57 Mewsiarf824 Nsaefqljv04 Blood Pressure Cuff SizeLarge Height5 ft 7.32 in Ogtsuf110 lb 7 oz BMI Twobkzieca26.15 kg/m2 BSA Calculated2.19 Tobacco Useb) No Falls Screening (Age 18+)a) No falls within the last year O2 Xuovqxfaoi65, Nasal Cannula Pain Scale7 Physical Exam The [...] May 29 2022 3:24PM EST (Author) Normal [facility] Referral Letteron 022 Referral Letter Mr. Tabor [...] May 29 2022 3:24PM EST (Author) Normal [facility] CT LUNG CANCER SCREENINGon 0 04-26-2022 CT [...] DYER Date: 2022-04-26 16:20 Normal [facility] HEMOGLOBINon 04-26-2022 Hemoglobin (Bld) [Mass/Vol] 13.6 g/dL Critically low 14.0-18.0 [facility] Comment on above: Performed By: #### H GB #### [facility] [address] [address] [address] Karen Lee Progress Noteson 06-04-2018 Protein mass conc [facility] Notes by Jacquelyn Rivera [...] Pt self discharged with last txsession with ENGINEERING SYSTEMS ANALYST.Patient is being discharged due to not returning to therapy and/or Plan of Care being .Recommend patient continue with HEP previously instructed on during therapy as appropriate.Patient may be reinstated in therapy upon new evaluation and orders from the physician.Thank You. [facility] Progress Noteson 04-23-2018 Protein mass conc En[facility] THER[facility]YProgress Notes by Berlin Valle PTA at 04/23/2018 9:00 AMAuthor: Berlin Valle PTAService: (none)Author Type: Physical Therapy AssistantFiled: 04/23/2018 9:46 AMEncounter Date: 04/23/2018Status: SignedEditor: Berlin Valle PTA (Etch Operator [employer])Physical Therapy Treatment NoteVisit Number: 5Encounter diagnosis:ICD-10-CM1.Cervical giaM54.22.Headache in back of [id number] Medical Diagnosis:SUBJECTIVE: Pt requests today being his [...] t-band- Scap retract x15- B UE ext p13Eavc tucks x15GTB rows 9t71Fxufzw- STM along c-spine paraspinals, UT, and levator [...] in rotation and SB without increase in pain.Halfway Goals: LTG to be met by 06/08/18 [...] Time: 10Total Treatment Time: 25 PT Treatment [facility] Progress Noteson 04-21-2018 Protein mass conc [facility]YProgress Notes by Berlin Valle PTA at 04/21/2018 9:00 AMAuthor: Berlin Valle PTAService: (none)Author Type: Physical Therapy AssistantFiled: 04/21/2018 9:46 AMEncounter Date: 04/21/2018Status: SignedEditor: Berlin Valle PTA (Etch Operator [employer])Physical Therapy Treatment NoteVisit Number: 4Encounter diagnosis:ICD-10-CM1.Cervical giaM54.22.Headache in back of [id number] Medical Diagnosis: CervicalgiaSUBJECTIVE:Complia nce with HEP: Pt [...] t-band- Scap retract x15- B UE ext r82Pioo tucks x15GTB rows 9r05Gmbtdg- STM along c-spine paraspinals, UT, and levator [...] in rotation and SB without increase in pain.Halfway Goals: LTG to be met by 06/08/18 [...] Time: 17Total Treatment Time: 32 PT Treatment [facility] Progress Noteson 04-16-2018 Protein mass conc Encounter [facility]YProgress Notes by Collette Pisano PTA at 04/16/2018 9:00 AMAuthor: Collette Pisano PTAService: (none)Author Type: Physical Therapy AssistantFiled: 04/16/2018 12:11 PMEncounter Date: 04/16/2018Status: SignedEditor: Collette Pisano PTA (Etch Operator [employer] Wafers)Physical Therapy Treatment NoteVisit Number: 3Encounter diagnosis:ICD-10-CM1.Cervical giaM54.22.Headache in back of okcjN21Wmbswup Medical Diagnosis: CervicalgiaSUBJECTIVE:Complia nce with HEP: Patient [...] t-band- Scap retract x15- B UE ext v51Oljy tucks x15GTB rows 1b03Jrygbk- STM along c-spine paraspinals, UT, and levator [...] in rotation and SB without increase in pain.Accountant Bookkeeper Goals: LTG to be met by 06/08/18 [...] Time: 28Total Treatment Time: 43 PT Treatment [facility] Progress Noteson 04-10-2018 Protein mass conc Encounter [facility]YProgress Notes by Berlin Valle PTA at 04/10/2018 9:00 AMAuthor: Berlin Valle PTAService: (none)Author Type: Physical Therapy AssistantFiled: 04/10/2018 10:21 AMEncounter Date: 04/10/2018Status: SignedEditor: Berlin Valle PTA (Etch Operator [employer] Wafers)Physical Therapy Treatment NoteVisit Number: 2Encounter diagnosis:ICD-10-CM1.Cervical giaM54.22.Headache in back of txxxW66Sievspr Medical Diagnosis: CervicalgiaSUBJECTIVE:Complia nce with HEP: Pt [...] UT stretch 3x 30'Chin tucks x15GTB rows 4j78JET: chin tuck, UT and LS stretch, scap [...] in rotation and SB without increase in pain.Halfway Goals: LTG to be met by 06/08/18 [...] Time: 30Total Treatment Time: 45 PT Treatment [facility] Progress Noteson 04-08-2018 Protein mass conc Encounter [facility] THERAPYProgress Notes by Jacquelyn Rivera PT at 04/08/2018 1:45 PMAuthor: Jacquelyn Rivera PTService: (none)Author Type: Physical TherapistFiled: 04/08/2018 6:47 PMEncounter Date: 04/08/2018Status: SignedEditor: Jacquelyn Rivera PT (Physical Therapist)Physical Therapy EvaluationEncounter diagnosis:ICD-10-CM1.Cervical giaM54.22.Headache in back of jxzfO47Sxoynnocj provider: Mellisa Clarke,*Primary Medical Diagnosis: CervicalgiaPlan of [...] Home: 15Prior Level of Functioning: Level of [place]: [facility] Level of Functioning: Outcome Score: NDI (26 raw score NDI, 52% disability) Functional deficits: reports no functional deficits, able to do everything just withincreased pain. Level of [place]: Modified IndependentSleep Status/Sleep Hygiene: Preferred Sleep Position: [...] codes)G8978 Mobility Current Status; Severity: CK 40-59% pdmzsugpA9733 Mobility Goal Status; Severity: CI 1-19% impairedOutcome measure(s)/Test(s) used/Result(s): 52% disability on NDI.Clinical Judgment: Moderate to severe impairement, decreased neck ROM and strength, tenderness totrigger points moderateNew Category to Gurruh-Jb-Ipbu only?:NoEvaluation Breakdown DescriptionPatient HistoryComorbiditiesEnvironme ntal/Personal factorsLearning/CognitionDome stic [...] in rotation and SB without increase in pain.Accountant Bookkeeper Goals: LTG to be met by 06/08/18 [...] Time: 60Time in: 1:44Time Out: 2:45 PT [facility] Vital Signs Date Time Vital Sign Value Performing Clinician Facility 04-15-2025 09:22-0400 Body height 177.8 cm Tree Krishnan DO Work Phone: [facility] 04-15-2025 09:22-0400 Body mass index (BMI) [Ratio] 35.87 kg/m2 Tree Krishnan DO Work Phone: [facility] 04-15-2025 09:22-0400 Body weight 113.4 kg Tree Krishnan DO Work Phone: [facility] 2025 09:00-0400 Body height 177.8 cm Tree Sheredaleksandar DO Work Phone: [facility] 2025 09:00-0400 Body mass index (BMI) [Ratio] 35.87 kg/m2 Tree Markenbach DO Work Phone: [facility] 2025 09:00-0400 Body weight 113.4 kg Tree Krishnan DO Work Phone: [facility] 12-27-2024 10:42-0400 Body height 177.8 cm Linsey Hall PA Work Phone: [facility] 12-27-2024 10:42-0400 Body mass index (BMI) [Ratio] 35.87 kg/m2 Linsey Hall PA Work Phone: [facility] 12-27-2024 10:42-0400 Body weight 113.4 kg Linsey Hall PA Work Phone: [facility] 12-27-2024 10:42-0400 Diastolic blood pressure 82 mm[Hg] Linsey Hall PA Work Phone: [facility] 12-27-2024 10:42-0400 Heart rate 75 /min Linsey Hall PA Work Phone: [facility] 12-27-2024 10:42-0400 Respiratory rate 16 /min Linsey Hall PA Work Phone: [facility] 12-27-2024 10:42-0400 SaO2% (BldA) [Mass fraction] 94 % Linsey Hall PA Work Phone: [facility] 12-27-2024 10:42-0400 Systolic blood pressure 142 mm[Hg] Linsey Hall PA Work Phone: [facility] 06-24-2024 13:52-0400 Body height 172.7 cm Gillian Taylor MD Work Phone: [facility] 06-24-2024 13:52-0400 Body mass index (BMI) [Ratio] 37.26 kg/m2 Gillian Taylor MD Work Phone: [facility] 06-24-2024 13:52-0400 Body weight 111.13 kg Gillian Taylor MD Work Phone: [facility] 06-24-2024 13:52-0400 Diastolic blood pressure 62 mm[Hg] Gillian Taylor MD Work Phone: [facility] 06-24-2024 13:52-0400 Heart rate 74 /min Gillian Taylor MD Work Phone: [facility] 06-24-2024 13:52-0400 SaO2% (BldA) [Mass fraction] 94 % Gillian Taylor MD Work Phone: [facility] 06-24-2024 13:52-0400 Systolic blood pressure 122 mm[Hg] Gillian Taylor MD Work Phone: [facility] 06-09-2024 11:17-0400 Body height 172.7 cm Linsey Hall PA Work Phone: [facility] 06-09-2024 11:17-0400 Body mass index (BMI) [Ratio] 38.01 kg/m2 Linsey Hall PA Work Phone: [facility] 06-09-2024 11:17-0400 Body weight 113.4 kg Linsey Hall PA Work Phone: [facility] 06-09-2024 11:17-0400 Diastolic blood pressure 84 mm[Hg] Linsey Hall PA Work Phone: [facility] 06-09-2024 11:17-0400 Heart rate 78 /min Linsey Hall PA Work Phone: [facility] 06-09-2024 11:17-0400 Respiratory rate 16 /min Linsey Hall PA Work Phone: [facility] 06-09-2024 11:17-0400 SaO2% (BldA) [Mass fraction] 93 % Linsey LI Work Phone: [facility] 06-09-2024 11:17-0400 Systolic blood pressure 132 mm[Hg] Linsey LI Work Phone: [facility] 05-29-2022 14:58-0400 Body height 170.99 cm [...] Provider Unknown [facility] Work Phone: 05-29-2022 [phone] Referring Provider Unknown [facility] Work Phone: Comment on above: [employer] Encounters Encounter Date Encounter Type Care Provider Facility Start: 05-27-2025 End: 05-27-2025 ambulatory [facility] Start: 04-21-2025 ambulatory [facility] Start: 04-21-2025 End: 04-21-2025 ambulatory [facility] Start: 04-15-2025 End: 04-15-2025 Bamboo flowsheet [...] Not Available Start: 04-14-2025 End: 04-14-2025 ambulatory [facility] Start: 2025 End: 2025 Bamboo flowsheet [...] Not Available Start: 12-31-2024 End: 12-31-2024 ambulatory [facility] Start: 12-27-2024 End: 12-27-2024 Bamboo flowsheet [...] radiculopathy Start: 08-16-2024 End: 08-16-2024 ambulatory [facility] Start: 07-29-2024 End: 08-03-2024 Refill Pablo Nik HO-TOP DYEING MACHINE TENDER Work Phone: [facility] Comment on above: Med Refill Start: 06-24-2024 End: 06-24-2024 Office outpatient visit 25 minutes Gillian Taylor MD Work Phone: [facility] Comment on above: Coronary artery dise ase involving coronary bypass graft of [place] heart without angina pectoris (Primary Dx); Paroxysmal atrial fibrillation ([facility]); Primary hypertension; Mixed hyperlipidemia; Left ventricular dysfunction Start: 06-24-2024 End: 06-24-2024 ambulatory GILLIAN TAYLOR [facility] Start: 06-23-2024 End: 06-23-2024 Telephone encounter Juana Hercules [facility] Start: 06-09-2024 End: 06-09-2024 Office outpatient visit 15 minutes Linsey LI Work Phone: [employer] [facility] Comment on above: Degeneration of [...] procedure Aleyda Lackey MD Work Phone: [facility] Comment on above: Carpal tunnel syndro me of left wrist (Primary Dx) Start: 06-08-2024 End: 06-08-2024 ambulatory ALEYDA LACKEY Not Available Start: 05-21-2024 End: 05-21-2024 Refill Radha Griffin RN [facility] Comment on above: Med Refill Start: 05-17-2024 End: 05-17-2024 ambulatory EMELY CANTU [facility] Comment on above: DDD (degenerative di [...] Refill Start: 12-30-2022 End: 12-31-2022 ambulatory [facility] [facility] . Facility:H1 Start: 12-17-2022 End: 12-18-2022 ambulatory [facility] . Facility:H1 Start: 06-17-2022 AUDIT Referring Prov ider Unknown MG-Pulm Sleep-[facility] 1800 Work Phone: Start: 05-29-2022 Office outpatient ne w 45 minutes Referring Provider Unknown MG-CT Surgery-[place] Work Phone: Start: 05-29-[address] Popeye Heredia lity:[facility] Start: 05-21-2022 End: 08-14-2022 ambulatory [facility] Facility:H1 Start: 04-26-2022 End: 04-27-2022 ambulatory [facility] Facility:H1 Start: 04-23-2018 End: 04-23-2018 Patient encounter [facility] Start: 04-21-2018 End: 04-21-2018 Patient encounter [place] [facility] Start: 04-16-2018 End: 04-16-2018 Patient encounter COLLETTE PISANO [facility] Start: 04-10-2018 End: 04-10-2018 Patient encounter [place] Dav AZULDrew [facility] Start: 04-08-2018 End: 04-08-2018 Patient encounter MELLISA CLARKE [facility] Patient encounter status Referri ng [...] artery bypass grafting Hx of CABG Elise oBrjas MD Work Phone: Cataract surgery Referring P [...] bypass grafting Hx of CABG Pablo Zaragoza EDGING MACHINE CATCHER-TOP DYEING MACHINE TENDER Work Phone: History of coronary artery bypass grafting Hx of CABG Keron LANCEC Work Phone: Prosthetic arthropla sty of shoulder Referring Provider Unknown Total replacement of hip Ref erring Provider Unknown Plan of Treatment Date Care Activity Detail Author Start: 08-13-2033 DTaP,Tdap and Td Vaccines (2 - Td or Tdap) DTaP,Tdap and Td Vaccines (2 - Td or Tdap) [facility] Start: 10-17-2025 End: 10-17-2025 Patient encounter procedure 10/17/2025 10:15 AM EST Office Visit [facility] [address] [place] [id number] Tree Krishnan, DO [address] [place] [address] [facility] Start: 06-24-2025 Adult BMI Screening Adult BMI Screening [facility] Start: 06-24-2025 Tobacco Screening Tobacco Screening [facility] Start: 05-16-2025 End: 05-16-2025 Patient encounter procedure 05/16/2025 10:40 AM EDT Office Visit HARRIETT SANTIAGO [address] [place] [address] Linsey Hall PA [address] [place] [address] [facility] [place] Start: 05-09-2025 Influenza vaccination [facility] Start: 04-15-2025 End: 04-15-2025 Patient encounter procedure JAMIN ARG[facility]LL[facility] Comment on above: Arrived Start: 2025 End: 2025 Patient encounter procedure 2025 9:15 AM EDT Office Visit [facility] [address] [place] [address] Tree Krishnan, DO [address] [place] [address] Arrived JAMIN ARGUELLES Comment on above: Arrived Start: 12-23-2024 End: 12-23-2024 Patient encounter procedure 12/23/2024 10:40 AM EDT Office Visit HARRIETT SANTIAGO [address] [place] [address] Linsey Hall PA [address] [place] [address] [facility]RIET[facility] SANTIAGO Start: 12-21-2024 End: 12-21-2024 Patient encounter procedure 12/21/2024 10:40 AM EDT Office Visit [facility] [address] [place] [phone] Linsey Hall PA [address] [place], [place] [id number] [facility] Start: 07-29-2024 Adult BMI Screening Adult BMI Screening [facility] Start: 07-29-2024 Tobacco Screening Tobacco Screening [facility] Start: 06-24-2024 End: 06-24-2025 CT Chest WO and CT angiogram Coronary arteries W contrast IV CT angiogram chest Imaging Routine Coronary artery disease involving coronary bypass graft of [place] heart without angina pectoris Expected: 06/24/2024, Expires: 06/24/2025 [facility] Comment on above: Expected: 06/24/2024, Expires: Start: 06-24-2024 End: 06-24-2025 Echo complete W/O contrast Echo complete W/O contrast Echocardiography Routine Coronary artery disease involving coronary bypass graft of [place] heart without angina pectoris Expected: 06/24/2024, Expires: 06/24/2025 [facility] Comment on above: Expected: 06/24/2024, Expires: Start: 06-24-2024 End: 06-24-2024 Patient encounter procedure 06/24/2024 2:00 PM EDT Office Visit [facility] [address] [place] [address] Gillian Taylor MD [address] [place] [address] [facility] Start: 06-09-2024 End: 06-09-2024 Patient encounter procedure 06/09/2024 11:20 AM EDT Office Visit [facility] [address] [facility] [address] [place] [phone] Linsey Hall PA [address] [place] [address] [facility] Start: 06-08-2024 End: 06-08-2024 Patient encounter procedure [facility] Comment on above: Arrived Start: 05-17-2024 End: 05-17-2024 Professional / ancillary services management 05/17/2024 8:30 AM EDT Ancillary Procedure [facility] [address] [place] [address] Emely Cantu MD [address] [place] [address] [facility] Start: 05-09-2024 Influenza vaccination [facility] Start: 2010 Administration of varicella zoster vaccine Zoster (Shingles) Vaccine (1 of 2) [facility] Start: 2010 Pneumococcal Vaccine: 65+ Years (1 of 1 - PCV) Pneumococcal Vaccine: 65+ Years (1 of 1 - PCV) [facility] Start: 1979 DTaP,Tdap and Td Vaccines (1 - Tdap) DTaP,Tdap and Td Vaccines (1 - Tdap) [facility] Start: 1978 Adult BMI Follow Up Plan Adult BMI Follow Up Plan [facility] Start: 1972 Depression Screening Depression Screening [facility] Start: 1960 Screening for malignant neoplasm of colon [facility] End: 06-24-2025 CBC panel - Blood by Automated count CBC Lab Routine Paroxysmal atrial fibrillation ([facility]-HCC) 1 Occurrences starting 06/24/2024 until 06/24/2025 [facility] Comment on above: 1 Occurrences starting 06/24/2024 until 06/24/2025 End: 06-24-2025 Comprehensive metabolic 2000 panel - Serum or Plasma CMP Lab Routine Primary hypertension 1 Occurrences starting 06/24/2024 until 06/24/2025 [facility] Comment on above: 1 Occurrences starting 06/24/2024 until 06/24/2025 End: 06-24-2025 Lipid panel Lipid panel Lab Routine Mixed hyperlipidemia 1 Occurrences starting 06/24/2024 until 06/24/2025 [facility] Work Phone: Comment on above: 1 Occurrences starting 06/24/2024 until 06/24/2025 Immunizations Immunization Date Immunization Notes Care Provider Fa ric 08-13-2023 Influenza, injectabl e, Madin Fely Canine Kidney, preservative free, quadrivalent Tree Krishnan DO Work Phone: [facility] 08-13-2023 tetanus toxoid, reduced diphtheria toxoid, and acellular pertussis vaccine, adsorbed Tree Krishnan DO Work Phone: [facility] 08-13-2023 influenza virus vaccine, unspecified formulation Yuri Chapa MA [facility] 05-23-2021 influenza, high dose seasonal, preservative-free Yuri Chapa MA [facility] 05-23-2021 influenza virus vaccine, unspecified formulation Elise Borjas MD [facility] 10-25-2020 Pfizer Purple Cap SARS-CoV-2 Vaccination Yuri Chapa MA [facility] 09-20-2020 Pfizer Purple Cap SARS-CoV-2 Vaccination Yuriazalia Chapa MA [facility] Payers Date Payer Category Payer Medicare (Managed Care) [facility] [facility] [id number] 2019 Medicare [id number] 2019 Medicare HMO [facility] MEDIC[facility] [id number] 1960 Unknown [id number] [id number]. 2.356 1960 Unknown [id number] [id number]. 2.593 1960 Unknown [id number] 2.16.840.1.486161.3.579. 2.593 1960 Unknown [id number] [id number]. 2.593 1960 Unknown [id number] [id number]. 2.593 1960 Unknown [id number] [id number]. 2.1286 1960 Unknown [id number] [id number]. 2.1286 1960 Unknown [id number] [id number]. 2.1259 1960 Unknown [id number] [id number]. 2.1259 1960 Unknown [id number] [id number]. 2.1259 1960 Unknown [id number] [id number]. 2.1259 1960 Unknown [id number]. 2.1259 1959 Medicare [id number] Unknown Social History Date Type Detail Facility Start: 03-15-2024 End: 08-08-2025 Social alcohol use Social alcohol use [facility] Start: 05-20-2022 End: 03-15-2024 Tobacco smoking status NHIS Ex-smoker [facility] Start: 09-08-1974 End: 09-08-2009 History of tobacco use Current smoker [facility] Start: 09-08-1974 End: 09-08-2009 History of tobacco use Cigarette Smoker [facility] Start: 05-20-2022 End: 03-15-2024 Tobacco use and exposure Smokeless tobacco non-user [facility] Start: 03-15-2024 End: 04-15-2025 Alcoholic beverage intake Lifetime non-drinker (finding) [facility] Start: 03-15-2024 End: 04-15-2025 Tobacco use panel [facility] Start: 02-13-2023 Alcohol Comment ocassionally [facility] Start: 1960 Sex assigned at Male [facility] Start: 02-21-2023 Gender identity Identifies as male gender (finding) [facility] Start: 07-29-2023 End: 06-24-2024 Alcoholic beverage intake Ex-drinker (finding) [facility] Within the past 12 months we worried whether our food would run out before we got money to buy more. Never True [facility] Start: 05-20-2022 Alcohol Comment ocassional [facility] Start: 1960 Sex assigned at Not on file P [facility] Start: 03-22-2022 Sex Male (finding) [facility] Clinical Notes 04-30-2024 to 05-27-2025 [...] alcohol abuse [facility] He states that overall he has [...] daily as dire (more content not included)... [facility] 04-15-2025 History of Present illness Narrative Subjective [...] tube with replacement documented in this encounter [facility] 04-14-2025 Note [place] [facility] [...] alcohol abuse He used to follow with [facility]. He states that overall he has [...] , Rfl: theop (more content not included)... [facility] 2025 History of Present illness Narrative [...] physician and subspecialist documented in this encounter [facility] 12-31-2024 Note [place] [facility] Note Reason for cardiology [...] alcohol abuse He used to follow with [facility]. He states that overall he has [...] developed, in no (more content not included)... [facility] 12-27-2024 History of Present illness Narrative [...] triceps, wrist extensors, wrist extensors, wrist flexor, rail gang supervisor strength 5/5. LUE Strength deltoid, biceps, triceps, wrist extensors, wrist extensors, wrist flexor, rail gang supervisor strength 5/5. RLE Strength illopsoas, quadriceps, tibialis [...] or worsening symptoms documented in this encounter [facility] 12-20-2024 Telephone encounter Note Patient is in need of refill, appt had to be rescheduled due to provider being out. Please send to [facility] [place] [facility] 12-20-2024 Miscellaneous Notes Patient is in need of refill, appt had to be rescheduled due to provider being out. 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 Explained to him that we do try to keep pt's with same doc but it does not always work out that way. Pt understood but has already seen the the other group. 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 Explained to him that we do try to keep pt's with same doc but it does not always work out that way. Pt understood but has already seen the the other group. [facility] 09-09-2024 Telephone encounter Note 06/09/2024 Continue Lyrica 150mg PO TID for neuropathic pain [facility] reviewed. Last filled 05/17/2024 for 90 day supply. Due 08/15/2024 [facility] 09-09-2024 Miscellaneous Notes 06/09/2024 Continue Lyrica 150mg PO TID for neuropathic pain [facility] reviewed. Last filled 05/17/2024 for 90 day supply. 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 male with history of coronary artery disease and coronary artery bypass surgery and maze procedure, paroxysmal atrial fibrillation, s/p ablation in [place], thoracic aortic aneurysm, left ventricle dysfunction, hypertension, hyperlipidemia COPD, prior tobacco and alcohol abuse He used to follow with [facility]. He states that overall he has [...] or gallops. RESPIR (more content not included)... [facility] 07-29-2024 Miscellaneous Notes [facility] 06/24/24 documented in this encounter [facility] 07-29-2024 Telephone encounter Note [facility] 06/24/24 [facility] 06-24-2024 History of Present illness Narrative Elise Tabor Date of visit: 06/24/2024 Date of : 1960 Age: 64 y.o. Patient Active Problem List Diagnosis Coronary artery disease involving coronary bypass graft of [place] heart without angina pectoris Paroxysmal atrial fibrillation [...] 65 mg by mouth daily with breakfast. rhmhkgysayn-egrcrwquh-bremucdk (TRELEGY ELLIPTA) 200-62.5-25 mcg blister with device [...] artery disease involving coronary bypass graft of [place] heart without angina pectoris - POCT EKG [...] APRN-CHAO Referring Physician: Kacie Del Real MD [address] [place] [address] documented in this encounter [facility] 06-24-2024 Instructions Gillian Taylor MD - 06/24/2024 2:00 PM EDT Laboratory studies CTA of the aorta Echocardiogram [facility] 06-23-2024 Miscellaneous Notes Called patient to remind them to bring their most current copy of their medication list with them to their appt. Patient verbalizes understanding. documented in this encounter [facility] 06-23-2024 Telephone encounter Note Called patient to remind them to bring their most current copy of their medication list with them to their appt. Patient verbalizes understanding. [facility] 06-09-2024 History of Present illness Narrative Subjective Elise Tabor is a 64 y.o. year old male Chief Complaint Patient presents with Back Pain Neck Pain Tremors Past Medical History: Diagnosis Date Anemia Atrial fibrillation ([facility]) Celiac disease ([facility]/HCC) 03/04/2019 Cervicalgia 04/08/2018 Chronic obstructive lung disease ([facility]/HCC) 01/22/2018 Chronic obstructive pulmonary disease (COPD) ([facility]/HCC) Coronary artery disease ([facility]/HCC) Emphysema of lung ([facility]) H/O hernia repair Headache in back of head 04/08/2018 Peripheral polyneuropathy 06/27/2023 Pneumonia Rheumatoid arthritis ([facility]) Sinus tachycardia 01/22/2018 Past Surgical History: Procedure [...] handles -admits hand weakness -some trouble with rail gang supervisor ROS Review of Systems Constitutional: Negative for [...] triceps, wrist extensors, wrist extensors, wrist flexor, rail gang supervisor strength 5/5. LUE Strength deltoid, biceps, triceps, wrist extensors, wrist extensors, wrist flexor, rail gang supervisor strength 5/5. RLE Strength illopsoas, quadriceps, tibialis [...] or worsening symptoms documented in this encounter [facility] 06-08-2024 History of Present illness Narrative Images from the original note were not included. Reason for Appointment: EMG Patient: Elise Tabor : 1960 EMG Computer: [employer] Referring Physician: Roland Bill PA-C EMG: WALTER machine programmer: Vera Zuñiga CMA Office Location: [place] Reason for EMG: c/o pain and paresthesia in the arm from the shoulder down. No Hx of DM, takes Eliquis and ASA Comments: Procedure explained to the patient who expressed understanding. documented in this encounter [facility] 05-14-2024 Miscellaneous Notes Phoned pt to advise that appt scheduled for 05/17/2024 is the date that his EM will be sent out and is NOT an actual appt. Verbalized understanding. documented in this encounter [facility] 05-14-2024 Telephone encounter Note Phoned pt to advise that appt scheduled for 05/17/2024 is the date that his EM will be sent out and is NOT an actual appt. Verbalized understanding. 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 Please advise. Thank you! 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 This is something we would need to [...] patient to call us back to review CONTROL PANEL OPERATOR's response. documented in this encounter [facility] 04-30-2024 Telephone encounter Note CONTROL PANEL OPERATOR, Patient called and said that he has [...] since he has not been in a-fib [facility] 2017, is there a chance he would be able to dc Eliquis at some point. Please advise. Thank you! 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 [facility] 04-30-2024 Telephone encounter Note This is something [...] further. Would continue Eliquis in the meantime. [facility] 04-30-2024 Telephone encounter Note Amml asking patient to call us back to review CONTROL PANEL OPERATOR's response. [facility] Evaluation note Diagnosis Carpal tunnel syndrome [...] or radiculitis, unspecified documented in this encounter [facility]* Diagnosis Coronary artery disease involving coronary bypass graft of [place] heart without angina pectoris Hx of CABG Postsurgical aortocoronary bypass status Paroxysmal atrial fibrillation (CMS-HCC) Atrial fibrillation Aneurysm of ascending aorta without rupture (CMS-HCC) History of maze procedure [facility] Diagnosis Coronary artery disease involving coronary bypass graft of [place] heart without angina pectoris Hx of CABG Postsurgical aortocoronary bypass status Paroxysmal atrial fibrillation (CMS-HCC) Atrial fibrillation Aneurysm of ascending aorta without rupture (CMS-HCC) History of maze procedure documented in this encounter [facility]* Diagnosis Coronary artery disease involving coronary bypass graft of [place] heart without angina pectoris Paroxysmal atrial fibrillation (CMS-HCC) Atrial fibrillation Aneurysm of ascending aorta without rupture (CMS-HCC) Hx of CABG 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 [facility] Diagnosis Coronary artery disease involving coronary bypass graft of [place] heart without angina pectoris- Primary Paroxysmal atrial fibrillation (CMS-HCC) Atrial fibrillation Primary hypertension Unspecified essential hypertension Mixed hyperlipidemia Left ventricular dysfunction Left heart failure [facility] Diagnosis Coronary artery disease involving coronary bypass graft of [place] heart without angina pectoris Paroxysmal atrial fibrillation (CMS-HCC) Atrial fibrillation Aneurysm of ascending aorta without rupture (CMS-HCC) Hx of CABG 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 documented [facility] this [facility]* Diagnosis Coronary artery disease involving coronary bypass graft of [place] heart without angina pectoris Hx of CABG Postsurgical aortocoronary bypass status Paroxysmal atrial fibrillation (CMS-HCC) Atrial fibrillation Aneurysm of ascending aorta without rupture ([facility]) History of maze procedure documented in this encounter [facility]* Diagnosis DDD (degenerative disc disease), [...] oxygen chronically. He is set to begin pulmonaryrehabilitation.[facility] Work Phone: History of Present illness NarrativeMrLeyla Tabor is referred for consideration of LVRS. 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 He is on 3 L nasal cannula oxygen chronically. He is set to begin pulmonaryrehabilitation.[facility] Work Phone: History of Present illness NarrativeMrLeyla Tabor is referred for consideration of LVRS. 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 He is on 3 L nasal cannula oxygen chronically. He is set to begin pulmonaryrehabilitation.[facility] Work Phone: InstructionsNot on filedocumented in [...] Aleyda Lackey MD [address] [place] [address] Referral ID Status Reason Start Date Expiration Date V isits Requested Visits Authorized [id number] Pending Review 06/08/2024 12/05/2024 1 1 Additional Source Comments (unrecognized sect ion and content) No Status Records FoundNo Status Records FoundNo Status Records FoundNo Status Records FoundNo Status Records FoundNo Status Records FoundNo Status Records Found INFORMATION SOURCE (unrecogn ized section and content) DATE CREATED AUTHOR 07/04/2018 [facility] DATE CREATED AUTHOR AUTHOR'S ORGANIZ ATION 06/09/2022 [facility] DATE CREATED AUTHOR AUTHOR'S ORGANIZ ATION 06/09/2022 [facility] DATE CREATED AUTHOR AUTHOR'S ORGANIZ ATION 02/14/2023 [facility] [place] [facility] DATE CREATED AUTHOR AUTHOR'S ORGANIZ ATION 07/06/2024 [facility] DATE CREATED AUTHOR AUTHOR'S ORGANIZ ATION 04/17/2025 [facility] EPIC DATE CREATED AUTHOR AUTHOR'S ORGANIZ ATION 06/10/2025 [facility] Care Teams (unrecognized sec tion and content) Relay Associate Relationship Specialty Start Date End Date Risa Mcnulty NP [address] [place] [address] Referring Physician Family Medicine 03/15/24 Relay Associate Relationship Specialty Start Date End Date Risa Mcnulty NP [address] [place] [address] Referring Physician Family Medicine 03/15/24 Relay Associate Relationship Specialty Start Date End Date Risa Mcnulty NP [address] [place] [address] Referring Physician Family Medicine 03/15/24 Relay Associate Relationship Specialty Start Date End Date Risa Mcnulty NP [address] [place] [address] Referring Physician Family Medicine 03/15/24 Relay Associate Relationship Specialty Start Date End Date Risa Mcnulty NP [address] [place] [address] Referring Physician Family Medicine 03/15/24 Relay Associate Relationship Specialty Start Date End Date Kacie Del Real MD [address] [place] [id number] PCP - General Family Medicine 03/22/22 Relay Associate Relationship Specialty Start Date End Date Kacie Del Real MD [address] [place] [id number] PCP - General Family Medicine 03/22/22 Relay Associate Relationship Specialty Start Date End Date Kacie Del Real MD [address] [place] [id number] PCP - General Family Medicine 03/22/22 Relay Associate Relationship Specialty Start Date End Date Kacie Del Real MD [address] [place] [id number] PCP - General Family Medicine 03/22/22 Relay Associate Relationship Specialty Start Date End Date Kacie Del Real MD [address] [place] [id number] PCP - General Family Medicine 03/22/22 Relay Associate Relationship Specialty Start Date End Date Risa Mcnulty APRN-SADDLE CUTTER [address] [place] [id number] PCP - General Family Medicine 06/24/24 Relay Associate Relationship Specialty Start Date End Date Risa Mcnulty APRN-SADDLE CUTTER [address] [place] [id number] PCP - General Family Medicine 06/24/24 Relay Associate Relationship Specialty Start Date End Date Risa Mcnulty APRN-SADDLE CUTTER [address] [address] PCP - General Family Medicine 06/24/24 Relay Associate Relationship Specialty Start Date End Date Risa Mcnulty EDGING MACHINE CATCHER-SADDLE CUTTER [address] [address] PCP - General Family Medicine 06/24/24 Relay Associate Relationship Specialty Start Date End Date Risa Mcnulty NP [address] [place] [address] Referring Physician Family Medicine 03/15/24 Relay Associate Relationship Specialty Start Date End Date Risa Mcnulty NP [address] [place] [address] Referring Physician Family Medicine 03/15/24 Relay Associate Relationship Specialty Start Date End Date Risa Mcnulty NP [address] [place] [address] Referring Physician Family Medicine 03/15/24 Relay Associate Relationship Specialty Start Date End Date Risa Mcnulty NP [address] [place] [address] Referring Physician Family Medicine 03/15/24 Reason for Visit (unrecogniz ed section and content) Specialty Diagnoses / Procedures Referred By Tonya t Referred To Contact Neurology Diagnoses LUE EMG paresthesias of hand, numbness and tingling, ref by Wei Bill [id number] NERVE CONDUCTION STUDIES 9-[address] NEEDLE EMG EA EXTREMTY W/PARASPINL [place] [address] [place] [address] Aleyda Lackey MD [address] [place] [address] Referral ID Status Reason Start Date Expiration Date V isits Requested Visits Authorized [id number] Closed Perform Procedure 06/08/2024 12/05/2024 1 1 [...] BE BASED ON THE PRIMARY CLINICAL RECORDS. [employer] provides no warranty or guarantee of the accuracy or completeness of information in this document.
[2025-06-14 14:42] LABS: TSH W/ REFLEX FT4 0.533 uIU/mL (0.358-3.740)
[2025-06-15 05:12] LABS: Vitamin B12 326 pg/mL (232-1245)
[2025-06-15 15:09] LABS: Albumin 3.7 g/dL (2.9-4.4); Alpha-1-Globulin 0.2 g/dL (0.0-0.4); Alpha-2-Globulin 0.7 g/dL (0.4-1.0); Gamma Globulin 0.8 g/dL (0.4-1.8)
== END 2025-06-14 13:05 | disposition home or self-care (01) ==
LOC: LAB 13:06
PROVIDERS: PCP Family Medicine; Visit Provider Nurse Practitioner Family
DX: R20.2 Paresthesia of skin (principal); Z79.899 Other long term (current) drug therapy; M25.551 Pain in right hip; N39.0 Urinary tract infection, site not specified
CPT/HCPCS: 36415; 80053; 81001; 82607; 83036; 83921; 84155; 84165; 84207; 84443; 85025; 86038; 87086

== ENCOUNTER 2025-06-27 08:55 | Outpatient (OUT) | payer MEDICARE, SELFPAY ==
--- OUTSIDE RECORDS SUMMARY | 2025-06-14 20:51 | XMS_ITS | Continuity of Care Document ---
Author Organization [facility] Address [address] [place] [address] Phone Care Team Providers Care Trip Motor Operator Name Role Phone Mario Zayas MD Attending Provider Danni Mccoy Attending Provider + Mario Zayas MD Primary Care Provider [phone] Care Teams Visit Care Team Team Status: Inactive Member Role Status Dates Mario Zayas MD Attending Provider Active Sta rt: June 14, 2025 End: June 14, 2025 Visit Care Team Team Status: Inactive Member Role Status Dates NUHA Medina Attending Provider Active Start: June 14, 2025 End: June 14, 2025 Mario Zayas MD Primary Care Provider Active Start: June 14, 2025 End: June 14, 2025 Chief Complaint and Reason for Visit Chief Complaint Admit Date Unknown June 14, 2025 10 :20am SB/AH KAM CH/SC June 14, 2025 11 :34am Reason for Visit Admit Date Paresthesias June 14, 2025 11 :34am Carpal tunnel syndrome, left June 11:34am DDD (degenerative disc disease), lumbar June 14, 2025 11:34am Lumbosacral radiculopathy June 14, 2 025 11:34am Neck pain June 14, 2025 11 :34am Tremor June 14, 2025 11 :34am Reason for Referral Referring Provider Name Referring Provider Address Referring Provider Phone Referral Date Requested Appointment Date Referral Reason June 14, 2025 M54.2 - Cervicalgia,M51.36 9 - Other intervertebral disc degeneration, lumbar region without mention of lumbar back pain or lower extremity pain,M54.17 - Radiculopathy, lumbosacral region Allergies, Adverse Reactions, Alerts Allergen Type Severity Reaction Last Updated Verified Status No Known Allergies Allergy Unknown [facility] 2024 11:53am Yes Active Social History Smoking Status Status Start Date End Date Date of Observa tion Ex-smoker (finding) June 14, 2025 12:27pm Observation Status Observation Response Date of Response Legal Sex Male (finding) Sex Assigned At Male 1960 Family History Relationship Condition Age at Onset Recorded Date/T cindy mother Malignant neoplasm Unknown Heart disease Unknown Hypertension Unknown father Heart disease Unknown Problems Active Problems Medical Problem Onset Date Status Carpal tunnel syndrome, left Unknown Act lisa Lumbosacral radiculopathy Unknown Active Paresthesias Unknown Active DDD (degenerative disc disease), lumbar Unknown Active Tremor Unknown Active Neck pain Unknown Active Medications Medication Status Dose Units Route Directions Qty Days St art Date Stop Date End Date Instructions Adherence Atorvastati n 80 mg tablet Active 80 MG PO Daily [facility] 2024 12:00a m Complies with drug therapy Prednisone 10 mg tablet Active 10 MG PO Daily [facility] 2024 12:00a m Complies with drug therapy Ipratropium -Albuterol 0.5 mg-3 mg(2.5 mg base)/3 mL solution for nebulizatio n Active 3 ML INHALA TION Four times daily [facility] 2024 12:00a m Complies with drug therapy Azithromyci n 250 mg tablet Active 250 MG PO Daily [facility] 2024 12:00a m Complies with drug therapy Theophyllin e 400 mg tablet extended release 24 hr Active 400 MG PO daily [facility] 2024 12:00a m Complies with drug therapy Metoprolol Succinate 50 mg tablet extended release 24 hr Active 50 MG PO .COMPLEX [facility] 2024 12:00a m 50 mg orally; take 2 tablets by mouth in the morning and take 1 tablet by mouth in the evening Complies with drug therapy Meloxicam 15 mg tablet Active 15 MG PO Daily [facility] 2024 12:00a m Complies with drug therapy Theophyllin e 300 mg tablet extended release 12 hr Active 300 MG PO Q12H [facility] 2024 12:00a m Complies with drug therapy Pantoprazol e 40 mg tablet,ayleen yed release (DR/EC) Active 40 MG PO daily [facility] 2024 12:00a m Complies with drug therapy Nitroglycer in 0.4 mg tablet, sublingual Active 0.4 MG SUBLIN GUAL .COMPLEX [facility] 2024 12:00a m 0.4 mg sublingually; Complies with drug therapy Aspirin 81 mg tablet Active 81 MG PO Daily [facility] 2024 12:00a m Complies with drug therapy Lisinopril 5 mg tablet Active 5 MG PO Daily [facility] 2024 12:00a m Complies with drug therapy Albuterol Sulfate 90 mcg/actuati on HFA aerosol inhaler Active 2 PUFF INHALA TION Q4H as needed [facility] 2024 12:00a m Complies with drug therapy Sodium Chloride 0.9 % solution for nebulizatio n Active 3 ML INHALA TION Q12H [facility] 2024 12:00a m Complies with drug therapy Pregabalin 150 mg capsule Active 150 MG PO Three times daily [facility] 2024 12:00a m Complies with drug therapy Cholecalcif vignesh (Vitamin D3) 50 mcg (2,000 unit) capsule Active 50 MCG PO Daily [facility] 2024 12:00a m Complies with drug therapy Roflumilast 500 mcg tablet Active 500 MCG PO Daily [facility] 2024 12:00a m Complies with drug therapy Apixaban (Eliquis) 5 mg tablet Active 5 MG PO Twice daily [facility] 2024 12:00a m Complies with drug therapy Dapaglifloz in Propanediol (Farxiga) 10 mg tablet Active 10 MG PO Daily [facility] 2024 12:00a m Complies with drug therapy Fluticasone -Umeclidin- Vilanter (Trelegy Ellipta) 200-62.5-25 mcg blister with device Active 1 INH INHALA TION Daily [facility] 2024 12:00a m Complies with drug therapy Capsaicin 0.075 % cream Active 1 APPLIC TOPICA L Three times daily as needed for foot pain 57 30 [facility] 2024 12:00a m Apply 1 thin layer to the feet up to three times a day as needed for pain. Do not apply capsaicin to wounds or damaged/irrit ated skin. Do not use in combination with external heat source or other topical analgesics. Complies with drug therapy Procedures Procedure Date Performed Status Urine Culture June 14, 2025 active Vital Signs Vital Reading Result Reference Range Collection Date/Time Weight 111.13 kg June 14 11:48am Heart Rate 75 /min 60-100 June 14 11:48am Respiratory rate 16 /min 12-24 June 11:48am Oxygen saturation by Pulse oximetry 93 % 95-100 June 14, 2025 11 :48am Inhaled oxygen flow rate 3 L/min Jun 11:48am Advance Directives Advance Directive Response Recorded Date/ Time Advance Directives No June 13, 2025 3:05pm Insurance Providers Guarantor Nikunj Causey Address [address] [facility] [phone] Contact Info. Home Phone: Payer Policy Id Subscriber's Name Subscriber Id Effectiv e Date Expiration Date [employer] [facility] [id number] Nikunj Causey [id number] Encounters Encounter Location(s) Arrival/Admit Date Discharge/Depart Date Provider(s) Departed Referred -[facility] June 14, 2025 10:20am June 14, 2025 10:21am Edison Holman MD Departed Physician/Prov ider Office Visit -[facility] Neurology Christine June 14, 2025 11:34am June 14, 2025 12:42pm Danni Mccoy APRN-[facility]ASSER-C Recent Diagnosis Onset Date Admit Date Paresthesias Unknown June 14 11:34am Carpal tunnel syndrome, left Unknown Jun 11:34am DDD (degenerative disc disease), lumbar Unknown June 14, 2025 11:34am Lumbosacral radiculopathy Unknown 2024 11:34am Neck pain Unknown June 14 11:34am Tremor Unknown June 14 11:34am Assessments Diagnosis Onset Date Resolution Status Admit Date Paresthesias acute June 14, 2025 11:34am Carpal tunnel syndrome, left chronic June 14, 2025 11:34am DDD (degenerative disc disease), lumbar chronic June 14 11:34am Lumbosacral radiculopathy chronic June 14, 2025 11:34am Neck pain chronic June 14 11:34am Tremor chronic June 14 11:34am Plan of Treatment Author Danni Mccoy [facility] Authored June 14, 2025 10 :22pm The patient reports chronic numbness and paresthesias in the plantar aspect of his bilateral feet. He states it feels like he is, walking on shards of glass, most days. We discussed that lumbosacral radiculopathy could be contributory to the patient's foot paresthesias. However, I have suspicion for concurrent peripheral neuropathy given the clinical presentation. Physical exam reveals reduced vibratory sensation in the distal bilateral lower extremities. BLE sensory decrements likely contributing to mild gait instability and imbalance. He denies history of diabetes, chemotherapy, or excessive alcohol use. The patient is taking Lyrica with positive response. However, his foot pain remains bothersome and is negatively impacting his quality of life. PLAN: - I recommended updated EMG of the bilateral lower extremities to evaluate for possible neuropathy, as this was not mentioned on his previous EMG from January 2023. The patient politely refused EMG. He understands this limits our diagnostic ability, and underlying pathology could be missed without this - Check labs (hemoglobin A1c, vitamin B12, MMA, vitamin B6, TSH, HARRIETT, serum immunofixation, and serum protein electrophoresis) to evaluate for possible causes of neuropathy - Fall prevention measures - Continue Lyrica as detailed above - Start capsaicin cream 0.075% - Apply 1 thin layer to the feet up to three times a day as needed for neuropathic pain. I advised the patient not to apply capsaicin to wounds or damaged/irritated skin. I advised him to not use in combination with external heat source or other topical analgesics. Adverse effects discussed. He verbalized understanding and wishes to proceed with use The patient has a history of lumbosacral radiculopathy. This is likely secondary to DDD of the lumbar spine as evidenced on previous MRI. MRI of the lumbar spine on 02/07/2023 revealed advanced degenerative changes with mild spinal canal stenosis at L2-L3, L3-L4, and L4-L5. MRI identified varying degrees of neuroforaminal stenosis, most prominent at L4-L5 and L5-S1 on the right and L2-L3 on the left where there was moderate narrowing. BLE EMG on 01/16/2025 revealed bilateral S1 radiculopathies. The patient reports chronic low back pain with radiation to the lower extremities and numbness/paresthesias in the bilateral feet. He also reports generalized weakness, but no focal weakness is identified on physical exam. Physical therapy, duloxetine, Trileptal, Zonegran, and gabapentin were ineffective previously. He takes Lyrica which is helpful. However, symptoms persist. PLAN: - Continue Lyrica 150 mg by mouth 3 times a day. OARRS reviewed - I would avoid NSAIDs if possible due to his extensive cardiac history - Referral to pain management for evaluation and consideration of procedural inventions such as lumbar injections to help improve pain control See above. The patient also reports chronic posterior neck pain with intermittent radiation to the bilateral shoulders. Onset was 25+ years ago. This seems to be musculoskeletal in nature. Multilevel DDD likely contributory. MRI cervical spine on 02/07/2023 revealed no severe stenosis or abnormal cord signal. There was mild to moderate spinal canal stenosis at C6-C7 and C7-T1. Also, with moderate left C4-C5, bilateral C6-C7, and bilateral C7-T1 neuroforaminal stenosis. PLAN: - Referral to pain management for evaluation and consideration of procedural interventions to help improve pain control Left carpal tunnel syndrome (minimal) as identified on EMG from 06/08/2024. The patient reports intermittent numbness in the left hand which could be due to this. PLAN: - Try left cock up wrist splint at bedtime - Consider referral to orthopedic surgery for consideration of corticosteroid injections versus decompressive surgery if symptoms worsen or fail to improve with conservative measures The patient has a chronic mixed type tremor of the right upper extremity. This can occur at rest but is more prominent with action. Onset was many years ago. I believe the patient's tremor most likely represents benign essential tremor. Though, prednisone and albuterol could be exacerbating his symptoms. Physical exam is not suggestive of parkinsonism, and previous TSH was within normal limits at 0.454. The patient denies his tremor being socially embarrassing or causing functional disability. PLAN: - Monitor clinically Diagnoses and treatment plan discussed. The patient verbalizes understanding and is agreeable to the plan. All questions answered. Future Tests Future scheduled test information is unavailable Pending Tests Test Name Ordered Date Scheduled Date Urine Culture October 7th, 2025 10:20am HARRIETT with Reflex June 14, 2025 12:40pm Vitamin B6 June 14, 2025 12:40pm Future Visits Future appointment information is unavailable Referrals to Other Providers Reason for Referral Referral Start Date Provider Provider Contact Information Provider Address M54.2 - Cervicalgia,M51.369 - Other intervertebral disc degeneration, lumbar region without mention of lumbar back pain or lower extremity pain,M54.17 - Radiculopathy, lumbosacral region June 14, 2025 [facility] Work Phone: [address] [facility] [address] [facility] [address] Future Procedures Procedure Name Ordered Date Scheduled Date Urine Culture June 14, 2025 12:46pm Octobe r 2024 10:20am A1C with Estimated Average Glu June 14, 2025 12:40pm Vitamin B12 June 14, 2025 12:40pm Immunofixation,Serum June 14, 2025 12:40pm Methylmalonic Acid June 14, 2025 12:40pm Protein Electrophoresis, Serum June 14, 2025 12:40pm Thyroid Stim Hormone w/Rflx June 14, 2025 12 :40pm Future Medications Future medication information is unavailable Patient Instructions Patient instructions are unavailable Hospital Discharge Instructions Ambulatory Orders* Referral to Pain Management Time Frame: 06/14/25, Location: None Selected
--- OUTSIDE RECORDS SUMMARY | 2025-06-23 09:30 | XMS_ITS | Encounter Summary ---
Author Organization [facility] Address [address] [place] [address] Care Team Providers Care Special Service Representative Name Role Phone Pauly Santacruz BUSINESS COMMUNICATIONS INSTRUCTOR Unavailable Mario Zayas MD Primary Care Provider [phone] Reason for Referral * Imaging (Routine) - Pending Review Specialty Diagnoses / Procedures Referred By Contsarah t Referred To Contact Cardiology Diagnoses PVD (peripheral vascular disease) Procedures Vascular US lower extremity arterial Doppler complete Yuri Rowe DPM [address] [address] Phone: tel: fax: [facility] Schedule fax: Referral ID Status Reason Start Date Expiration Date Visits Requested Visits Authorized [id number] Pending Review Perform Procedure 12/20/2025 1 1 Reason for Visit * Reason Comments Ingrown Toenail Encounter Details Date Type Department Care Team (Late st Contact Info) Description 06/23/2025 9:30 AM EDT Office Visit [facility] 112 [facility] 120 [place] [address] Yuri Rowe DPM 3006 [facility] [address] [place] [address] PVD (peripheral vascular disease); Other polyneuropathy; Pain due to onychomycosis of toenails of both feet; Paronychia, toe, left Social History Tobacco Use Types Packs/Day Years Used Date Smoking Tobacco: Former Cigarettes 2 35 0 09/08/1974 - 09/08/2009 Smokeless Tobacco: Never Tobacco Cessation:Counseling Given: Yes Alcohol Use Standard Drinks/Week Comments Never 0 (1 standard drink = 0.6 oz pur e alcohol) ocassionally Sex and Gender Information Value Date Recorded Sex Assigned at Male 02/21/2023 9:38 AM EDT Legal Sex Male 9:13 AM EDT Gender Identity Male 02/21/2023 9:38 AM EDT Sexual Orientation Not on file documented as of this encounter Last Filed Vital Signs Vital Sign Reading Time Taken Comments Blood Pressure - - Pulse - - Temperature - - Respiratory Rate 18 06/23/2025 9:50 AM EDT Oxygen Saturation - - Inhaled Oxygen Concentration - - Weight 113 kg (250 lb) 06/23/2025 9:50 AM EDT Height 177.8 cm (5' 10 ) 06/23/2025 9:50 AM EDT Body Mass Index 35.87 06/23/2025 9:50 AM EDT documented in this encounter Progress Notes * Yuri Rowe, MIN - 06/23/2025 9:30 AM EDT Patient: Nikujn Gutierrez : 1960 PCP: Mario Zayas MD SUBJECTIVE [...] Insecurity: No Food Insecurity (06/24/2024) Received from [facility] Hunger Screening Within the past 12 months [...] non palpable pedal pulses bilaterally NEURO: 5.07 [place] Anjum monofilament test intact to digits and [...] shoe gear. Patient have SERVANDO PVRs at [facility] for possible procedure and nail avulsions in the future with follow up post testing Yuri Rowe DPM [1] Allergies Allergen Reactions Gluten Meal GI intolerance Isosorbide Nitrate Headache [2] Past Medical History: Diagnosis Date Anemia Arthritis 08/16/2024 Atrial fibrillation (HCC) Cardiomyopathy, ischemic 08/16/2024 Celiac disease (HCC) 03/04/2019 Centrilobular emphysema (HCC) 2025 Noted by [facility] last documented on [id number] Cervicalgia 04/08/2018 Chronic anticoagulation 08/16/2024 Chronic obstructive lung disease (HCC) 01/22/2018 Chronic obstructive pulmonary disease (COPD) ([facility]) Chronic systolic heart failure ([facility]) 08/16/2024 Class 2 severe obesity due to excess calories with serious comorbidity and body mass index (BMI) of35.0 to 35.9 in adult 08/16/2024 Coronary artery disease Emphysema of lung ([facility]) Erectile dysfunction 08/16/2024 H/O hernia repair Headache in back of head 04/08/2018 Hypertensive heart disease with heart failure (HCC) 2025 Noted by [facility] last documented on [id number] Mixed hyperlipidemia 06/24/2024 [...] , Rfl: cholecalciferol (Vitamin D-3) 50 MCG (1999 UT) capsule, 1 capsule 1 (one) time [...] documented in this encounter Plan of Treatment Upcoming Encounters Date Type Department Care Team (Late st Contact Info) Description 09/15/2025 10:50 AM EST Procedure Visit [facility] 112 [facility] 120 [place] [address] Yuri Rowe DPM 3006 [facility] [address] [place] [address] 10/17/2025 10:15 AM EST Office Visit [facility] [address] [place] [address] Tree Carmona DO [address] [place] [address] Scheduled Orders Name Type Priority Associated Diagnoses Orde r Schedule Vascular US lower extremity arterial Doppler complete Vascular Ultrasound Routine PVD (peripheral vascular disease) Ordered: 06/23/2025 documented as of this encounter Visit Diagnoses Diagnosis PVD (peripheral vascular disease) Unspecified peripheral vascular disease Other polyneuropathy Pain due to onychomycosis of toenails of both feet Paronychia, toe, left documented in this encounter Care Teams Special Service Representative Relationship Specialty Start Date End Date Mario Zayas MD [address] [place] [address] PCP - General Family Medicine 06/23/25 Pauly Santacruz NP [address] [place] [address] Referring Physician Family Medicine 03/15/24 documented as of this encounter
--- OUTSIDE RECORDS SUMMARY | 2025-06-27 08:58 | XMS_ITS | Clinical Summary ---
Author Organization [facility] Address [address] [place] [address] Care Team Providers Care Aviation Safety Technician Name Role Phone Pauly Santacruz WEED SCIENCE RESEARCH TECHNICIAN Unavailable Mairo Zayas MD Primary Care Provider [phone] Allergies Active Allergy Reactions Criticality Noted Date [...] Take 30 mg by mouth Daily 06/13/20 Active lisinopril 5 MG tablet Take 5 [...] mouth in the morning. 03/19/20 22 Active Daliresp 500 MCG tablet Take 500 [...] disease invo lving coronary bypass graft of [place] heart without angina pectoris 05/20/2022 History of maze procedure 05/20/2022 Hx of CABG 05/20/2022 Paroxysmal atrial fibrillation 05/20/2022 Thoracic aortic aneurysm without rupture 022 Resolved Problems Problem Noted Date Diagnosed Date Resolved Date Centrilobular emphysema 03/25/202503/08 Overview (2025): Noted by [facility] last documented on [id number] Hypertensive heart disease with heart failure 03/25/20 25 2025 Overview (2025): Noted by [facility] last documented on [id number] Chronic anticoagulation [...] Encounters Date Type Department Care Team Description 06/23/2025 9:30 AM EDT Office Visit [facility] [address] [facility] [address] [place] [address] Yuri Rowe DPM PVD (peripheral vascular disease); Other polyneuropathy; Pain due to onychomycosis of toenails of both feet; Paronychia, toe, left 06/23/2025 Bamboo flowsheet [facility] [address] [facility] [address] [place] [address] Yuri Rowe DPM 06/23/2025 Travel 04/15/2025 9:30 AM EDT Office Visit [facility] [address] [place] [address] Tree Carmona, DO Otorrhea of right ear (Primary Dx); Dysfunction of right eustachian tube; Chronic anticoagulation 04/15/2025 Bamboo flowsheet [facility] [address] [place] [address] Tree Carmona, 04/15/2025 Travel from Last 3 Months Immunizations Immunization [...] AM EDT Temperature - - Respiratory Rate 18 06/23/2025 9:50 AM EDT Oxygen Saturation 94% 12/27/2024 10:42 AM EDT Inhaled Oxygen Concentration - - Weight 113 kg (250 lb) 06/23/2025 9:50 AM EDT Height 177.8 cm (5' 10 ) 06/23/2025 9:50 AM EDT Body Mass Index 35.87 06/23/2025 9:50 AM EDT Plan of Treatment Upcoming Encounters Date Type Department Care Team (Late st Contact Info) Description 09/15/2025 10:50 AM EST Procedure Visit [facility] [address] [place] [address] [place] [address] Yuri Rowe, DPM [address] [address] [place] [address] 10/17/2025 10:15 AM EST Office Visit [facility] [address] [place] [address] Tree Carmona, [address] [place] [address] Insurance [employer] Care Teams Aviation Safety Technician Relationship Specialty Start Date End Date Mario Zayas MD [address] [place] [address] PCP - General Family Medicine 06/23/25 Pauly Santacruz NP [address] [place] [address] Referring Physician Family Medicine 03/15/24
--- OUTSIDE RECORDS SUMMARY | 2025-06-27 08:59 | XMS_ITS | Encounter Summary ---
Author Organization [facility] Address [address] [place] [address] Care Team Providers Care Configuration Management Specialist Name Role Phone Mario Zayas MD Primary Care Provider [phone] Encounter Details Date Type Department Care Team (Late st Contact Info) Description 04/21/2025 Results Follow-Up [facility] [address] [place] [phone] Dorinda Diaz MD [address] [facility] [address] [place] [address] Cardiac catheterization Social History Tobacco Use Types [...] Left Pedal Pulse +2 04/21/2025 10:47 AM EDCarolin Solitario RN * BP Location Answer Date of Assessment Author Left arm 05/27/2025 11:01 AM EDT Tari Day am, MA * Respiratory Question Answer Date of Assessment Author Bilateral Breath Sounds Diminished 04/21/20 10:47 AM YAREDT Carolin Felix RN Respiratory Pattern Normal 04/21/2025 1 0:47 AM YAREDT Carolin Felix RN Respiratory Effort Labored 04/21/2025 10 :47 AM EDT Carolin Felix RN Respiratory Depth/Rhythm Regular 04/21/2025 10:47 AM EDT Carolin Felix RN Breath Sounds Bilateral breath sounds 04/21/2025 10:47 AM EDT Carolin Felix RN * Neurological Question Answer Date of Assessment Author Level of Consciousness Alert 10:47 AM Carolin Sweet RN Orientation Level Oriented X4 04/21/2025 10: 47 AM EDT Carolin Felix RN Cognition Appropriate judgement 04/21/2025 10:47 AM EDT Carolin Felix RN Speech Clear 04/21/2025 10:47 AM EDT Carolin Felix RN * Pain Assessment Question Answer Date of Assessment Author Pain Assessment No/denies pain 04/21/2025 3:45 PM EDT Flaca Roblero RN * [place] Suicide Severity Rating Scale Question Answer Date [...] on filedocumented in this encounter Care Teams Configuration Management Specialist Relationship Specialty Start Date End Date Mario Zayas MD [address] [place], [place] [address] [address] PCP - General Family Medicine 02/09/25 documented as of this encounter
--- OUTSIDE RECORDS SUMMARY | 2025-06-27 08:59 | XMS_ITS | Encounter Summary ---
Author Organization [facility] Address [id number] [address] [place] [address] Care Team Providers Care Surgical Appliances Salesperson Name Role Phone Pauly Santacruz SWITCHBOARD OPERATOR-PATTERNMAKER Primary Care Provider [phone] Reason for Visit * Reason Comments Med Change Request Encounter Details Date Type Department Care Team (Late st Contact Info) Description 02/07/2025 Refill [facility] [address] [place] [address] Pablo Zaragoza, VCI-CNC MAINTENANCE TECHNICIAN [address] [place] [address] Med Change Request Social History Tobacco Use [...] artery disease involving coronary bypass graft of [place] heart without angina pectoris Hx of CABG Postsurgical aortocoronary bypass status Paroxysmal atrial fibrillation ([facility]) Atrial fibrillation Aneurysm of ascending aorta without rupture History of maze procedure documented in this encounter Care Teams Surgical Appliances Salesperson Relationship Specialty Start Date End Date Pauly Santacruz APRN-PATTERNMAKER [address] [place] [address] PCP - General Family Medicine 06/24/24 documented as of this encounter
--- OUTSIDE RECORDS SUMMARY | 2025-06-27 08:59 | XMS_ITS | Encounter Summary ---
Author Organization [facility] Address [address] [place] [address] Care Team Providers Care Hydro Electric Station Operator Name Role Phone Pauly Santacruz SIX PACK LOADER OPERATOR Unavailable Mario Zayas MD Primary Care Provider [phone] Encounter Details Date Type Department Care Team (Latest Contact Info) Description 06/23/2025 Travel Social History Tobacco Use Types Packs/Day Years [...] EST Procedure Visit [facility] [address] [facility] [address] [place] [address] Yuri Rowe DPM [address] [facility] [address] [place] [address] 10/17/2025 10:15 AM EST Office Visit [facility] [address] [place] [place] [address] Tree Carmona DO [address] [place] [address] documented as of this encounter Visit Diagnoses Not on filedocumented in this encounter Care Teams Hydro Electric Station Operator Relationship Specialty Start Date End Date Mario Zayas MD [address] [place] [address] PCP - General Family Medicine 06/23/25 Pauly Santacruz NP [address] [place] [address] Referring Physician Family Medicine 03/15/24 documented as of this encounter
--- OUTSIDE RECORDS SUMMARY | 2025-06-27 08:59 | XMS_ITS | Clinical Summary ---
Author Organization [facility] Address [address] [place] [address] Care Team Providers Care Material Handling Warehouse Supervisor Name Role Phone Mario Zayas MD Primary Care Provider [phone] Allergies No known active allergies Medications azithromycin [...] disease 08/16/2024 Coronary artery disease invo lving [place] coronary artery of [place] heart without angina pectoris 08/16/2024 Erectile dysfunction [...] Type Department Care Team Description 06/02/2025 Telephone [facility] [address] [place] [address] Melita Ignacio MA 05/27/2025 11:00 AM EDT Office Visit [facility] [address] [place] [address] Dorinda Diaz MD Coronary artery disease involving [place] coronary artery of [place] heart without angina pectoris (Primary Dx); Cardiomyopathy, [...] EDT - 04/21/2025 1:30 PM EDT Surgery [facility] Heart [facility] [address] [place] [address] Adam Valle MD Coronary angiography 04/21/2025 10:42 AM EDT - 04/21/2025 4:08 PM EDT Hospital Encounter [facility] [address] [place] [address] Adam Valle MD Abnormal cardiovascular stress test Discharge Disposition: Home or Self Care (01) 04/21/2025 Results Follow-Up [facility] [address] [place] [address] Dorinda Diaz MD Cardiac catheterization 04/21/2025 Travel 04/18/2025 Travel 04/14/2025 10:00 AM EDT Office Visit [facility] [address] [place] [address] Dorinda Diaz MD Abnormal cardiovascular stress test (Primary Dx); Chronic systolic heart failure (CMS/HCC); Cardiomyopathy, ischemic; Paroxysmal A-fib (CMS/HCC); History of maze procedure; Aneurysm of ascending aorta without rupture; Essential hypertension; Pure hypercholesterolemia; Class 2 severe obesity due to excess calories with serious comorbidity and body mass index (BMI) of 35.0 to 35.9 in adult ([facility]) 04/12/2025 Telephone [facility] [address] [place] [address] Tari Nevarez MA 04/08/2025 Refill [facility] [address] [place] [address] Danni Vázquez MA Benign hypertensive heart disease 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 04/05/2025 Orders Only [facility] [address] [place] [address] Danni Vázquez MA Abnormal cardiovascular stress test (Primary Dx) 04/02/2025 Results Follow-Up [facility] [address] [place] [address] Dorinda Diaz MD Lexischomer Stress Myocardial Perfusion Imaging from Last 3 Months Family History Medical [...] ECG 12-LEAD Routine 04/21/2025 12:25 PM EDT from Last 3 Months Results * [...] infiltrated over the left radial artery. A 6-Divehi sheath was placed in left radial artery. [...] was maintained at >250 seconds. A 6 Divehi XB4 was engaged to the [place]. A [...] Activated clotting time (04/21/2025 1:45 PM EDT) [facility] Activated Clotting Time 309(H) 82 - 152 s 04/21/2025 1:49 PM EDT [facility] Blood Venous blood specimen / Unknown 04/21/2025 1:45 PM EDT 04/21/2025 1:49 PM EDT Adam Valle MD LAB POINT OF CARE TEST DOCKED DEVICE UNSOLICITED RESULTS Final Result [facility]) [address] [place] [address] * Electrocardiogram, 12-lead (04/21/2025 12:25 PM EDT) Pathologist [facility] Ventricular Rate 72 BPM GE MUSE Atrial Rate 72 BPM GE MUSE RI Interval 114 ms GE MUSE QRS DURATION 90 ms GE MUSE QT Interval 376 ms GE MUSE QTC CALCULATION(BAZE TT) 411 ms GE MUSE P Butler 37 degrees GE MUSE R-Butler 37 degrees GE MUSE T Wave Butler 119 degrees GE MUSE 04/21/2025 12:0 3 [...] Diaz MD ECG ORDERABLES Final Result GE [facility]ISS from Last 3 Months Insurance [facility] MEDICARE ADVANTAGE Care Teams Material Handling Warehouse Supervisor Relationship Specialty Start Date End Date Mario Zayas MD [address] [facility] [address] [address] PCP - General Family Medicine 02/09/25
--- OUTSIDE RECORDS SUMMARY | 2025-06-27 08:59 | XMS_ITS | Encounter Summary ---
Author Organization [facility] Address [address] [place] [address] Care Team Providers Care Director Global Sales Name Role Phone Pauly Santacruz STOCK BLENDER Unavailable Mario Zayas MD Primary Care Provider [phone] Encounter Details Date Type Department Care Team (Late Contact Info) Description 06/23/2025 Bamboo flowsheet [facility] [address] [place] [place] [address] Yuri Rowe DPM [address] [address] Social History Tobacco Use Types Packs/Day Years [...] Encounters Date Type Department Care Team (Late Contact Info) Description 09/15/2025 10:50 AM EST Procedure Visit [facility] [address] [place] [place] [address] Yuri Rowe DPM [address] [address] 10/17/2025 10:15 AM EST Office Visit [facility] [address] [place] [address] Tree Carmona DO [address] [place] [address] documented as of this encounter Visit Diagnoses Not on filedocumented in this encounter Care Teams Director Global Sales Relationship Specialty Start Date End Date Mario Zayas MD [address] [place] [address] PCP - General Family Medicine 06/23/25 Pauly Santacruz NP [address] [place] [address] Referring Physician Family Medicine 03/15/24 documented as of this encounter
--- OUTSIDE RECORDS SUMMARY | 2025-06-27 08:59 | XMS_ITS | Clinical Summary ---
Author Organization [facility] Address [address] [place] [address] Phone Care Team Providers Care Weave Room Supervisor Name Role Phone Unavailable Primary Care Provider [...]
--- OUTSIDE RECORDS SUMMARY | 2025-06-27 08:59 | XMS_ITS | Encounter Summary ---
Author Organization [facility] Address [id number] [address] [place] [address] Care Team Providers Care Retail Management Keyholder Name Role Phone Pauly Santacruz COMMERCIAL HORTICULTURE INSTRUCTOR-COMPLEX MANAGER Primary Care Provider [phone] Encounter Details Date Type Department Care Team (Late st Contact Info) Description 06/25/2024 Orders Only [facility] [address] [facility] [address] [place] [address] External, Scanning Provider Social History [...] ECG ORDERABLES Final Result Performing Organization Address City/State/[facility] Co de Phone Number MANUALLY TRANSCRIBED RESULTS * ECG 12 lead (06/25/2024 8:13 AM EDT) us Scanning Provider External ECG ORDERABLES Final Result Performing Organization Address City/State/[facility] Co de Phone Number MANUALLY TRANSCRIBED RESULTS documented in this encounter Visit Diagnoses Not on filedocumented in this encounter Care Teams Retail Management Keyholder Relationship Specialty Start Date End Date Pauly Santacruz APRN-FNP [address] [place] [address] PCP - General Family Medicine 06/24/24 documented as of this encounter
--- OUTSIDE RECORDS SUMMARY | 2025-06-27 08:59 | XMS_ITS | Clinical Summary ---
Author Organization [facility] Address [id number] [address] 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,Hx of CABG,Paroxysmal atrial [...] 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,Paroxys mal atrial fibrillation [...] 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,Hx of CABG,Paroxysmal atrial [...] disease invo lving coronary bypass graft of [place] heart without angina pectoris 05/20/2022 Paroxysmal atrial [...] Date Last Done Comments Depression Screening 1972 Zoster (Shingles) Vaccine (1 of 2) 2010 Fall Risk Screening 2025 Influenza Vaccine 05/09/2025 08/13/2023, 05/23/2021 Adult BMI Screening 06/24/2025 06/24/2024 Tobacco Screening 06/24/2025 06/24/2024 Statin Use: Cardiovascular 10/07/2025 10/07/2024 DTaP,Tdap and Td Vaccines (2 - Td or Tdap) 08/13/2033 08/13/2023 Medical Devices Not on file Insurance [facility] MEDICARE Care Teams Upholstery Repairer Relationship Specialty Start Date End Date Pauly Santacruz APRN-FNP [address] [place] [address] PCP - General Family Medicine 06/24/24
--- OUTSIDE RECORDS SUMMARY | 2025-06-27 08:59 | XMS_ITS | Encounter Summary ---
Author Organization [facility] [id number] [address] [place] [address] Care Team Providers Care Tool Lapper Hand Name Role Phone Pauly Santacruz JET MECHANIC-MEDICAL INSURANCE CODING SPECIALIST Primary Care Provider [phone] Reason for Referral * Cardiology (Routine) - Closed Specialty Diagnoses / Procedures Referred By Contac t Referred To Contact Diagnoses Paroxysmal atrial fibrillation ([facility]) Procedures Wireless Telemetry (In Office) Syed Cantu MD [address] [place] [address] Phone: tel: fax: Referral ID Status Reason Start Date Expiration Date Visits Re quested Visits Authorized [id number] Closed 05/03/2024 05/03/2025 1 1 Encounter Details Date Type Department Care Team (Late st Contact Info) Description 05/03/2024 Orders Only [facility] [address] [facility] [address] [place] [address] Kenisha Manning RN Paroxysmal atrial fibrillation ([facility] [...] fibrillation documented in this encounter Care Teams Tool Lapper Hand Relationship Specialty Start Date End Date Pauly Santacruz APRN-FNP [address] [place] [address] PCP - General Family Medicine 06/24/24 documented as of this encounter
--- OUTSIDE RECORDS SUMMARY | 2025-06-27 09:01 | XMS_ITS | CCD ---
Author Organization [facility] Care Team Providers Care Humidifier Maintenance Worker Name Role Phone CLARKE, MELLISA STOHLER Unavailable Unavailab le SYSTEM, [...] Unavail able SAMSA ., DARNELL Admitting Unavailable [facility] Primary Care Unavailable SAMSA ., DARNELL Attending Unavailable SAMSA ., DARNELL Consulting Unavailable SAMSA ., DARNELL Admitting Unavailable [facility] Primary Care Unavailable SAMSA ., DARNELL Attending Unavailable SAMSA ., DARNELL Consulting Unavailable DEL REAL, KACIE Consulting Unavailable [facility] Primary Care Unavailable SAMSA ., DARNELL Attending Unavailable SAMSA ., DARNELL Consulting Unavailable SAMSA ., DARNELL Admitting Unavailable [facility] Primary Care Unavailable DR ALEYDA DYER Consulting Unavailable SAMSA ., DARNELL Attending Unavailable SAMSA ., DARNELL Admitting Unavailable SAMSA ., DARNELL Consulting Unavailable Noam MASTER MECHANIC, [place] Unavailable EMELY CANTU Referring Unavailable DEL REAL, KACIE L Primary Care Unavailable GILLIAN TAYLOR Attending Unavailable DEL REAL, KACIE L Referring Unavailable RISA MCNULTY Primary Care Unavailable Kacie Del Real MD Primary Care Provider Noam TELEVISION PRODUCER-PRODUCTION COORDINATOR, [place] Primary Care Provider Darius TELEVISION PRODUCER-PRODUCTION COORDINATOR-Danni Petit Attending Provider Mario Zayas MD Primary Care Provider [phone] Mario Zayas MD Attending Provider Mario Zayas Attending Unavailable Mario Zayas Admitting Unavailable Noam , [place] Unavailable Mario Zayas MD Primary Care Provider [phone] BENNY DIAZ Attending Unavailable BENNY DIAZ Attending Unavailable JUAN FLORES Referring Unavailable BENNY DIAZ Referring Unavailable JUAN FLORES Admitting Unavailable JUAN FLORES Attending Unavailable BENNY DIAZ Attending Unavailable BENNY DIAZ Attending Unavailable LINSEY HALL Attending Unavailable TREE KRISHNAN Attending Unavailable TREE KRISHNAN Attending Unavailable YURI RODRIGUEZ Attending Unavailable Allergies Allergy Classification Reported Allergen(s) Allergy Type Date of Onset Reaction(s) Facility (19 sources) Gluten Propensity to adverse reactions 2 GI intolerance [facility] (19 sources) Isosorbide Dinitrate Drug Allergy 2 Headache [facility] (11 sources) Gluten; Translations: [GLUTEN] Propensity to adverse reactions to food (disorder) 2 [facility] (11 sources) Isosorbide; Translations: [ISOSORBIDE MONONITRATE] Drug Allergy 2 Headache [facility] (1 source) ALLERGIES NOT ON FILE; Translations: [ALLERGIES NOT ON FILE] Propensity to adverse reactions (disorder) [facility] Repository Medications Current Medications Medication Drug Class(es) Dates Sig (Normalized) Sig (Original) [id number] 200 actuat albuterol 0.09 mg/actuat metered dose inhaler (20 sources) beta2-Adrenergic Agonist Start: 06-14-2025 take 1 puff(s) by inhalation every four hours as needed Albuterol Sulfate 90 mcg/actuation HFA aerosol inhaler Active 2 PUFF INHALATION Q4H as needed June 14, 2025 12:00am Complies with drug therapy albuterol (5 MG/ ML) 0.5% nebulizer solution [...] solution (20 sources) Anticholinergic, beta2-Adrenergic Agonist Start: 06-14-2025 take 1 mL by inhalation four times daily Ipratropium-Albuterol 0.5 mg-3 mg(2.5 mg base)/3 mL solution for nebulization Active 3 ML INHALATION Four times daily June 14, 2025 12:00am Complies with drug therapy Start: 02-20-2022 ipratropium-al buterol (Duo-Neb) 0.5-2.5 mg/3 mL nebulizer solution Take [...] in the morning. Active aspirin 81 mg oral tablet (20 sources) Platelet Aggregation Inhibitor, Nonsteroidal Anti-inflammatory Drug Start: 06-14-2025 take 1 tablet by mouth once daily Aspirin 81 mg tablet Active 81 MG PO Daily June 14, 2025 12:00am Complies with drug therapy Start: 07-25-2022 take 1 tablet by lamont th in the morning aspirin 81 MG EC tablet Take 81 mg by mouth in the morning. 07/25/2022 Active atorvastatin 80 mg oral tablet (20 sources) HMG-CoA Reductase Inhibitor Start: 06-14-2025 take 1 tablet by mouth once daily Atorvastatin 80 mg tablet Active 80 MG PO Daily June 14, 2025 12:00am Complies with drug therapy Start: 01-20-2023 End: 02-18-2024 take 1 tablet by mouth in the morning atorvastatin (LIPITOR) 40 mg tablet Indications: Coronary artery disease involving coronary bypass graft of [place] heart without angina pectoris , Hx of CABG , Paroxysmal atrial fibrillation (CMS-HCC) , Aneurysm of ascending aorta without rupture , History of maze procedure Take 1 tablet (40 mg total) by mouth in the morning. 90 tablet 1 02/19/2024 Active azithromycin 250 mg oral tablet (20 sources) Macrolide Antimicrobial Start: 06-14-2025 take 1 tablet by mouth once daily Azithromycin 250 mg tablet Active 250 MG PO Daily June 14, 2025 12:00am Complies with drug therapy capsaicin 0.75 mg/ml topical cream (1 source) Start: 06-14-2025 Capsaicin 0.075 % cream Active 1 APPLIC TOPICAL Three times daily as needed for foot pain 57 30 June 14, 2025 12:00am Apply 1 thin layer to the feet up to three times a day as needed for pain. Do not apply capsaicin to wounds or damaged/irritated skin. Do not use in combination with external heat source or other topical analgesics. Complies with drug therapy cholecalciferol 0.05 mg oral capsule (20 sources) Vitamin D Start: 06-14-2025 take 1 capsule by mouth once daily Cholecalciferol (Vitamin D3) 50 mcg (2,000 unit) capsule Active 50 MCG PO Daily June 14, 2025 12:00am Complies with drug therapy End: 2025 take 1 tablet by mouth in the morning cholecalciferol (Vitamin D-3) 25 MCG (1000 UT) tablet Take 1,000 Units by mouth in the morning. 2025 Discontinued dapagliflozin 10 mg oral tablet (10 sources) Sodium-Glucose Cotransporter 2 Inhibitor Start: 02-10-2025 [...] Ordered: 15-Mar-2022 DO Start : 15-Mar-2022 Active Ogglmvebotl-Gkozreuqp-Hzaztb er (2 sources) Start: 06-14-2025 Sytobzmhxmm-Uendjcena-Lzzdzx er (Trelegy Ellipta) 200-62.5-25 mcg blister with device Active 1 INH INHALATION Daily June 14, 2025 12:00am Complies with drug therapy gbqpuikwacv-wgtbtlgdb-fpzjtb er (TRELEGY ELLIPTA) 200-62.5-25 mcg blister with device (10 sources) Start: 03-15-2022 cojwdeegacg-bnnnbxagz-frrgcn er (TRELEGY ELLIPTA) 200-62.5-25 mcg blister with [...] mononitrate 30 mg extended release oral tablet (19 sources) Nitrate Vasodilator Start: 06-13-2022 take 1 [...] (20 sources) Angiotensin Converting Enzyme Inhibitor Start: 06-14-2025 take 1 tablet by mouth once daily Lisinopril 5 mg tablet Active 5 MG PO Daily June 14, 2025 12:00am Complies with drug therapy Start: 01-20-2023 End: 11-12-2024 take 1 tablet by mouth once daily in the morning lisinopriL (PRINIVIL,ZESTRIL) 5 mg tablet Indications: Coronary artery disease involving coronary bypass graft of [place] heart without angina pectoris , Hx of CABG , Paroxysmal atrial fibrillation (CMS-HCC) , Aneurysm of ascending aorta without rupture , History of maze procedure TAKE 1 TABLET BY MOUTH ONCE DAILY IN THE MORNING 30 tablet 11/12/2024 Active Start: 03-14-2022 Lisinopril 5 M G Oral Tablet Quantity: 90 Refills: 0 Ordered: 14-Mar-2022 DO Start : 14-Mar-2022 Active meloxicam 15 mg oral tablet (10 sources) Nonsteroidal Anti-inflammatory Drug Start: 06-14-2025 take 1 tablet by mouth once daily Meloxicam 15 mg tablet Active 15 MG PO Daily June 14, 2025 12:00am Complies with drug therapy 24 hr metoprolol succinate 50 mg extended release oral tablet (20 sources) beta-Adrenergic Melonie Start: 06-14-2025 take 2 tablets by mouth every twenty-four hours in the morning, then take 1 tablet by mouth in the evening Metoprolol Succinate 50 mg tablet extended release 24 hr Active 50 MG PO .COMPLEX June 14, 2025 12:00am 50 mg orally; take 2 tablets by mouth in the morning and take 1 tablet by mouth in the evening Complies with drug therapy Start: 06-25-2023 metoprolol suc cinate XL (TOPROL XL) 50 mg 24 hr tablet Indications: Coronary artery disease involving coronary bypass graft of [place] heart without angina pectoris , Hx of [...] artery disease involving coronary bypass graft of [place] heart without angina pectoris , Paroxysmal atrial [...] pantoprazole 40 mg delayed release oral tablet (10 sources) Proton Pump Inhibitor Start: take 1 tablet by mouth once daily pantoprazole (ProtoNix) 40 MG EC tablet Take 40 mg by mouth Daily 02/07/2025 Active predniSONE 10 mg oral tablet (20 sources) Start: take 1 tablet by mouth once daily Prednisone 10 mg tablet Active 10 MG PO Daily June 14, 2025 12:00am Complies with drug therapy take 1 tablet by mouth once shara y predniSONE (Deltasone) 20 MG tablet Take 20 mg by mouth Daily Active pregabalin 150 mg oral capsule (20 sources) Start: 02-18-2024 End: 12-20-2024 take 1 capsule by mouth in the [...] tablet (20 sources) Phosphodiesterase 4 Inhibitor Start: 03-15-2022 take 1 tablet by mouth in the morning Daliresp 500 MCG tablet Take 500 mcg by mouth in the morning. 03/15/2022 Active sodium chloride 9 mg/ml inhalation solution (7 sources) Start: 06-14-2025 take 1 mL by inhalation every twelve hours Sodium Chloride 0.9 % solution for nebulization Active 3 ML INHALATION Q12H June 14, 2025 12:00am Complies with drug therapy Start: 03-23-2025 sodium chlorid e 0.9 % nebulizer solution Inhale 3 mL 03/23/2025 Active spironolactone 25 mg oral tablet (8 sources) Aldosterone Antagonist Start: 02-09-2025 End: 02-09-2026 take 1 tablet by mouth in the morning spironolactone (Aldactone) 25 MG tablet Take 25 mg by mouth in the morning. 02/09/2025 02/09/2026 Active SUMAtriptan 100 mg oral tablet (19 sources) Serotonin-1b and Serotonin-1d Receptor Agonist SUMAtriptan (Imitrex) 100 MG tablet Active TESTOSTERONE, BULK, MISC (10 sources) TESTOSTERONE, BU LK, MISC by miscellaneous route. 100 mg 1 tablet daily Active theophylline 400 mg extended release oral tablet (20 sources) Methylxanthine Start: 06-14-2025 take 1 tablet by mouth every twelve hours Theophylline 300 mg tablet extended release 12 hr Active 300 MG PO Q12H June 14, 2025 12:00am Complies with drug therapy Start: 01-16-2023 take 1 tablet by lamont th in the morning, then take 1 tablet [...] morning. Active tiZANidine 4 mg oral tablet (8 sources) Central alpha-2 Adrenergic Agonist Start: 01-07-2025 take 2 tablets by mouth at bedtime tiZANidine (Zanaflex) 4 MG tablet TAKE 2 TABLETS BY MOUTH AT BEDTIME FOR 30 DAYS 01/07/2025 Active topiramate 50 mg oral tablet (8 sources) Start: 02-21-2025 take 1 tablet by [...] take 1 puff(s) by inhalation once daily Dxqwinwtrqy-Qoaiduvca-Glsgdd 200-62.5-25 MCG/ACT aerosol powder Inhale 1 puff [...] Atrial fibrillation; Translations: [Atrial fibrillation] Onset: 2 06-08-2023 Chronic Chronic obstructive pulmonary disease and bronchiectasis (20 sources) Chronic obstructive lung disease; Translations: [Chronic airway obstruction, not elsewhere classified] Onset: 8 Resolved: 5 Chronic Complication of device; implant or graft (20 sources) Arteriosclerosis of coronary artery bypass graft; Translations: [Atherosclerosis of coronary artery bypass graft(s) without angina pectoris] Onset: 2 02-13-2023 Chronic Congestive heart failure; nonhypertensive (14 sources) Chronic systolic heart failure; Translations: [Chronic systolic (congestive) heart failure] Onset: 4 Resolved: 5 2025 Chronic Coronary atherosclerosis and other heart disease (18 sources) Coronary arteriosclerosis; Translations: [Coronary atherosclerosis of unspecified type of vessel, [place] or graft] Onset: 4 Resolved: 5 2025 Chronic Disorders of lipid metabolism (20 sources) Mixed hyperlipidemia; Translations: [Mixed hyperlipidemia] Onset: 4 Resolved: 5 06-24-2024 Chronic Essential hypertension (20 sources) Hypertensive disorder; Translations: [Unspecified essential hypertension] Onset: 4 Resolved: 5 06-24-2024 Chronic Melanomas of skin (4 sources) H/O Malignant melanoma; Translations: [Personal history of malignant melanoma of skin] Episodic Mycoses (2 sources) Pain in toe; Translations: [Tinea unguium] 06-23-2025 Episodic Other aftercare (4 sources) Encounter for [...] blood-forming organs] Episodic Other nervous system disorders (19 sources) Neuropathy; Translations: [Polyneuropathy, unspecified] Onset: 4 01-20-2024 Chronic Other nervous system disorders (20 sources) Polyneuropathy; Translations: [Polyneuropathy, unspecified] Onset: 3 Resolved: 3 06-27-2023 Chronic Other nervous system disorders (3 sources) Carpal tunnel syndrome of left wrist; Translations: [Carpal tunnel syndrome, left upper limb] 06-08-2024 Chronic Other nervous system disorders (6 sources) Tremor; Translations: [Tremor, unspecified] 06-09-2024 Episodic [...] Eustachian tube disorder, right ear] 03-26-2025 Episodic Peripheral and visceral atherosclerosis (2 sources) Peripheral vascular disease; Translations: [Peripheral vascular disease, unspecified] 06-23-2025 Chronic Skin and subcutaneous tissue infections (2 sources) Paronychia of toe of left foot; Translations: [Cellulitis of left toe] 06-23-2025 Episodic Spondylosis; intervertebral disc disorders; other back problems (20 sources) Degeneration of lumbar intervertebral disc; Translations: [DDD (degenerative disc disease), lumbar] Onset: 4 01-20-2024 Chronic Unclassified (1 source) Neck Pain / 102859() Onset: 8 Unclassified (1 source) Stiffness / 343() Onset: 8 Unclassified (1 source) Back Pain / 12() Onset: 8 Unclassified (1 source) Upper Extremity Weakness / [id number]() Onset: 8 Unclassified (1 source) M54.2 - Cervicalgia,M51.369 - Other intervertebral disc degeneration, lumbar region without mention of lumbar back pain or lower extremity pain,M54.17 - Radiculopathy, lumbosacral region Unclassified (2 sources) Abnormal stress test Onset: [...] Date Documented Da te Episodic/Chronic Cardiac dysrhythmias (19 sources) Sinus tachycardia; Translations: [Tachycardia, unspecified] Onset: 01-22-2018 Resolved: 06-27-2023 06-27-2023 Episodic Headache, including migraine (20 sources) Headache; Translations: [Occipital headache] Onset: 04-08-2018 Resolved: 06-27-2023 06-27-2023 Episodic Hypertension with complications and secondary hypertension (8 sources) Hypertensive heart failure; Translations: [Hypertensive heart disease with heart failure] Onset: 2025 Resolved: 2025 2025 Chronic Osteoarthritis (8 sources) Arthritis; Translations: [Unspecified osteoarthritis, unspecified site] Onset: 08-16-2024 Resolved: 2025 2025 Chronic Other aftercare (12 sources) Long-term current use of anticoagulant; Translations: [FCI (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 of 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] Onset: 08-16-2024 Resolved: 2025 03-26-2025 Episodic Other aftercare (2 sources) 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; Translations: [FCI (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 of 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] Onset: 08-16-2024 Episodic Other gastrointestinal disorders (19 sources) Celiac disease; Translations: [Celiac disease] Onset: 03-04-2019 Resolved: 06-27-2023 06-27-2023 Chronic Other male genital disorders (8 sources) Male erectile dysfunction, unspecified; Translations: [Impotence of organic origin] Onset: 08-16-2024 Resolved: 2025 2025 Chronic Other nervous system disorders (20 sources) Paresthesia; Translations: [Paresthesia of skin] Onset: 01-20-2024 01-20-2024 Episodic Other non-traumatic joint disorders (8 sources) Pain in wrist; Translations: [Pain in unspecified wrist] Onset: 08-16-2024 Resolved: 2025 2025 Episodic Other nutritional; endocrine; and metabolic disorders (8 sources) Severe obesity; Translations: [Class 2 severe [...] Test Name Value Interpretation Reference Range Facility Urine Cultureon 06-14-2025 Bacteria identified Cx Nom (U) No Growth 2 Days PERFORMED BY: [facility] [address] [place] [address] PATHOLOGIST JERSEY KNITTER MICHEL PACHECO M.D. Normal [facility] Comment on above: Performed By: #### C UU #### [facility] [address] [id number] [facility] Office Visiton 05-27-2025 Follow-up visit [id number] Armando Causey loida [place] 1960 M Date Provider Department Center 05/27/2025 BENNY NICOLE Family History Problem Relation Age of Onset Coronary artery disease Mother Coronary artery disease Father Family Status - Relation Status Age at Mother Father Sister Alive Level of Service:[id number] [place] OFFICE/OUTPATIENT ESTABLISHED MOD MDM 30 MIN Reason for Visit and Comments: Follow-up [396322] - Patient is here today for a follow up s/p cath. Patient states heart desir he feels well. Patient states he fell around labor day and possibly tore a hamstring. Post-Cath [731] Coronary Artery Disease [187] Hyperlipidemia [182] Hypertension [975358] Thoracic aortic aneurysm without rupture [Other] Cardiomyopathy [104] Atrial Fibrillation [80] Congestive Heart Failure [127] Normal [facility] Armaan 04-21-2025 ANES --------- Attestation signed by Juan Flores MD at 04/21/2025 12:57 PM I personally spoke with and examined Mr. Causey with Dr. Saleh. He has a drop in LVEF and a positive stress test. Plan cors, LV and WALTERS angiography. He voices understanding of risks (, NE, bleeding, etc) and agrees to proceed. Patient: Nikunj Causey Pre-sedation Evaluation: Moderate sedation History of Present Illness: Patient here for coronary angiography due to abnormal stress test. Lexiscan stress test showed mid and apical inferior ischemia. Echo showed EF 35-40% on 02/03/2025. Medical History[1] Principle problems: Patient Active Problem List Diagnosis Date Noted Nausea 04/14/2025 Arthritis 08/16/2024 Celiac disease 08/16/2024 Coronary artery disease involving [place] coronary artery of [place] heart without angina pectoris 08/16/2024 Erectile dysfunction 08/16/2024 Pain in wrist 08/16/2024 Peripheral polyneuropathy 08/16/2024 Cardiomyopathy, ischemic 08/16/2024 Chronic systolic heart failure ([facility]) 08/16/2024 Chronic anticoagulation 08/16/2024 Pure hypercholesterolemia 08/16/2024 Class 2 severe obesity due to excess calories with serious comorbidity and body mass index (BMI) of 35.0 to 35.9 in adult ([facility]) 08/16/2024 Mixed hyperlipidemia 06/24/2024 Essential hypertension 06/24/2024 DDD (degenerative disc disease), lumbar 01/20/2024 Neuropathy 01/20/2024 Paresthesia 01/20/2024 History of maze procedure 05/20/2022 Paroxysmal A-fib ([facility]) 05/20/2022 Thoracic aortic aneurysm without rupture 05/20/2022 Cervicalgia 04/08/2018 Headache in back of head 04/08/2018 Abnormal cardiovascular stress test 04/05/2025 Allergies: Allergies[2] PULP MAKER/Current Medications: Prescriptions Prior to Admission[3] Current Medications[4] [...] expressed understanding and agreed to proceed. Lars aSleh PGY-4 Screw Machine Hand [facility] [1] Past Medical History: Diagnosis [...] mouth 3 times (more content not included)... [facility] HPon 04-21-2025 HP H&P reviewed. The guillermo so was examined and there are no changes to the H&P. Will proceed with coronary angiography for further evaluation of abnormal stress test. Consent for blood products obtained. Risks, benefits, and alternatives to procedure discussed with patient in detail who expressed understanding and agreed to proceed. [facility] NURSNOTEon 04-21-2025 NURSNOTE RN educated pt on [...] off of unit with all of belongings. [facility] NURSNOTE Patient requesting r alexandra do his DuoNeb nebulizer prior to having his cath done. 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 Office Cardiology Clinic Note Reason for cardiology [...] is on BiPAP during the night 08/16/2024 Nikunj Causey is a 65 y.o. male with history of coronary artery disease and coronary artery bypass surgery and maze procedure, paroxysmal atrial fibrillation, s/p ablation in [place], thoracic aortic aneurysm, left ventricle dysfunction, hypertension, hyperlipidemia COPD, prior tobacco and alcohol abuse [facility] He states that overall [...] Rfl: theop (more content not included)... [facility] Office Visiton 04-14-2025 Follow-up visit [id number] Armando Causey 1960 M Date Provider Department Center 04/14/2025 [id number] DIAZ Hos Family History Problem Relation Age of Onset Coronary artery disease Mother Coronary artery disease Father Family Status - Relation Status Age at Mother Father Sister Alive Level of Service:92843 [place] OFFICE/OUTPATIENT ESTABLISHED MOD MDM 30 MIN Reason for Visit and Comments: Follow-up [356098] Abnormal stress test [Other] Cardiac Cath scheduled 04/28/2025 [Other] Coronary Artery Disease [187] Hyperlipidemia [182] Congestive Heart Failure [127] Hypertension [983626] COPD [313] Home o2 3lpm via N/C 31/03 [Other] [facility] 36on 04-12-2025 36 MD Scarlett Hagan MA Overall echo is normal with minor valvular heart disease LVM to advise patient of Dr. Diaz's findings. [facility] Orders Onlyon 04-05-2025 Orders Only [id number] Armando Causey 1960 M Date Provider Department Center 04/05/2025 [id number] GALLOWAY CAROL ANN [facility] Family History Problem Relation Age of Onset Coronary artery disease Mother Coronary artery disease Father Family Status - Relation Status Age at Mother Father Sister Alive [facility] Results Follow-Upon 04-02-20 Results Follow-Up [id number] Armando Causey E 1960 M Date Provider Department Center 04/02/2025 [id number] DIAZ [facility] CARD [facility] HeartVAS Family History Problem Relation Age of Onset Coronary artery disease Mother Coronary artery disease Father Family Status - Relation Status Age at Mother Father Sister Alive [facility] Orders Onlyon 03-21-2025 Orders Only [id number] Armando Causey E 1960 [facility] Provider Department Center 03/21/2025 [id number], HISTORICAL [facility] Family History Problem Relation Age of Onset Coronary artery disease Mother Coronary artery disease Father Family Status - Relation Status Age at Mother Father Sister Alive [facility] 36on 02-09-2025 36 Regarding lab result [...] labs prior to apt in Apr-May 2025. [facility] Orders Onlyon 02-04-2025 Orders Only [id number] Armando Causey 1960 M Date Provider Department Center 02/04/2025 [id number], HISTORICAL [facility] [place] [facility] Family History Problem Relation Age of Onset Coronary artery disease Mother Coronary artery disease Father Family Status - Relation Status Age at Mother Father Sister Alive [facility] Office Visiton 12-31-2024 Follow-up visit [id number] Armando Causey 1960 M Date Provider Department Center 12/31/2024 [id number] MARTEL Family History Problem Relation Age of Onset Coronary artery disease Mother Coronary artery disease Father Family Status - Relation Status Age at Mother Father Sister Alive Level of Service:35857 [place] OFFICE/OUTPATIENT ESTABLISHED MOD MDM 30 MIN Reason for Visit and Comments: Coronary Artery Disease [187] Hyperlipidemia [182] Hypertension [448233] Normal [facility] 36on 10-07-2024 36 Regarding echo [...] and blue Medicare care to apply for [employer] patient assistance program. Free 30 day voucher also provided for patient. BMP order given to be done in 1 week. LIPID,AST,ALT orders given to him to be completed in 2 months after increasing atorvastatin per Dr. Diaz. He verbalized understanding. Normal [facility] Office Visiton 08-16-2024 Follow-up visit [id number] Armando Causey 1960 M Date Provider Department Center 08/16/2024 [id number] GARZA Family History Problem Relation Age of Onset Coronary artery disease Mother Coronary artery disease Father Family Status - Relation Status Age at Mother Father Level of Service:06819 [place] OFFICE/OUTPATIENT NEW MODERATE MDM 45 MINUTES Reason for Visit and Comments: Atrial Fibrillation [80] - Had EKG at last apt with [facility] in Jun 2024. Denies chest pain and bleeding on Eliquis. Coronary Artery Disease [187] - CABG and MAZE in 2016 Hypertension [235473] Hyperlipidemia [182] COPD [313] - Sees Dr. Oni Marrero [facility] POCT EKGOrdered By: Juana Hercules on 06-24-2024 [employer] EMG 1 Extremeityon 4 [facility] NVC 7-8 Nerveson 06-08-2024 [facility] THEOPHYLLINEon 12-30-2022 THEOPHYLLINE 18.0 ug/mL Normal 10.0-20.0 [facility] Comment on above: Performed By: #### T ADALID #### [facility] [address] [address] [address] Karen Lee THEOPHYLLINEon 12-17-2022 THEOPHYLLINE 8.3 ug/mL Critically low 10.0-20.0 [facility] Comment on above: Performed By: #### T ADALID #### [facility] [address] [address] [address] Karen Lee Blood Pressure Cuff Sizeon [...] Activated Vitals Vital Signs Recorded: 29May2022 02:58PM Czcewxzhatk24.2 F Heart Rate91 Ptfgbyhpgqf43 Wvscnyrk808 Slbevbjia65 Blood Pressure Cuff SizeLarge Height5 ft 7.32 in Naisyc948 lb 7 oz BMI Vjstybyryf30.15 kg/m2 BSA Calculated2.19 Tobacco Useb) No Falls Screening (Age 18+)a) No falls within the last year O2 Kokbszrwbm72, Nasal Cannula Pain Scale7 Physical Exam The [...] May 29 2022 3:24PM EST (Author) Normal [facility] Referral Letteron 022 Referral Letter Mr. Causey [...] May 29 2022 3:24PM EST (Author) Normal Farm[facility] CT LUNG CANCER SCREENINGon 0 04-26-2022 CT [...] by: ALEYDA DYER Date: 2022-04-26 16:20 Normal [facility] HEMOGLOBINon 04-26-2022 Hemoglobin (Bld) [Mass/Vol] 13.6 g/dL Critically low 14.0-18.0 [facility] Comment on above: Performed By: #### H GB #### [facility] [address] [place] [address] Dr. Karen Lee Progress Noteson 06-04-2018 Protein mass conc [facility]Progress Notes by Jacquelyn Rivera [...] Pt self discharged with last txsession with PULP MAKER.Patient is being discharged due to not returning to therapy and/or Plan of Care being .Recommend patient continue with HEP previously instructed on during therapy as appropriate.Patient may be reinstated in therapy upon new evaluation and orders from the physician.Thank You. [facility] Progress Noteson 04-23-2018 Protein mass conc Encounter Department : [facility] REHAB THERAPYProgress Notes by Berlin Valle PTA at 04/23/2018 9:00 AMAuthor: Berlin Valle PTAService: (none)Author Type: Physical Therapy AssistantFiled: 04/23/2018 9:46 AMEncounter Date: 04/23/2018Status: SignedEditor: Berlin Valle PTA (Card Punching Machine Operator)Physical Therapy Treatment NoteVisit Number: 5Encounter diagnosis:ICD-10-CM1.Cervical giaM54.22.Headache in back of avoiB95Ufdsoti Medical Diagnosis:SUBJECTIVE: Pt requests today being his [...] t-band- Scap retract x15- B UE ext s60Hoir tucks x15GTB rows 2k92Ypquso- STM along c-spine paraspinals, UT, and levator [...] in rotation and SB without increase in pain.Surveyor Hydrographic Goals: LTG to be met by 06/08/18 [...] Time: 10Total Treatment Time: 25 PT Treatment [facility] Progress Noteson 04-21-2018 Protein mass conc Encounter Department : [facility] REHAB THERAPYProgress Notes by Berlin Valle PTA at 04/21/2018 9:00 AMAuthor: Berlin Valle PTAService: (none)Author Type: Physical Therapy AssistantFiled: 04/21/2018 9:46 AMEncounter Date: 04/21/2018Status: SignedEditor: Berlin Valle PTA (Card Punching Machine Operator)Physical Therapy Treatment NoteVisit Number: 4Encounter diagnosis:ICD-10-CM1.Cervical giaM54.22.Headache in back of zcprL81Rxjoyhr Medical Diagnosis: CervicalgiaSUBJECTIVE:Complia nce with HEP: Pt [...] t-band- Scap retract x15- B UE ext x95Jeuo tucks x15GTB rows 2v28Urzpst- STM along c-spine paraspinals, UT, and levator [...] in rotation and SB without increase in pain.Surveyor Hydrographic Goals: LTG to be met by 06/08/18 [...] Time: 17Total Treatment Time: 32 PT Treatment [facility] Progress Noteson 04-16-2018 Protein mass conc Encounter Department : [facility] THERAPYProgress Notes by Collette Pisano PULP MAKER at 04/16/2018 9:00 AMAuthor: Collette Pisano PTAService: (none)Author Type: Physical Therapy AssistantFiled: 04/16/2018 12:11 PMEncounter Date: 04/16/2018Status: SignedEditor: Collette Pisano PTA (Card Punching Machine Operator)Physical Therapy Treatment NoteVisit Number: 3Encounter diagnosis:ICD-10-CM1.Cervical giaM54.22.Headache in back of nhypT14Qexesxs Medical Diagnosis: CervicalgiaSUBJECTIVE:Complia nce with HEP: Patient [...] t-band- Scap retract x15- B UE ext j81Jrxd tucks x15GTB rows 9l99Gdxzjc- STM along c-spine paraspinals, UT, and levator [...] in rotation and SB without increase in pain.Surveyor Hydrographic Goals: LTG to be met by 06/08/18 [...] 28Total Treatment Time: 43 PT Treatment Normal [facility] Progress Noteson 04-10-2018 Protein mass conc Encounter Department : [facility] THER[facility]YProgress Notes by Berlin Valle PTA at 04/10/2018 9:00 AMAuthor: Berlin Valle PTAService: (none)Author Type: Physical Therapy AssistantFiled: 04/10/2018 10:21 AMEncounter Date: 04/10/2018Status: SignedEditor: Berlin Valle PTA (Card Punching Machine Operator)Physical Therapy Treatment NoteVisit Number: 2Encounter diagnosis:ICD-10-CM1.Cervical giaM54.22.Headache in back of oyyaC41[place]ylck Medical Diagnosis: CervicalgiaSUBJECTIVE:Complia nce with HEP: Pt [...] UT stretch 3x 30'Chin tucks x15GTB rows 1n42HGX: chin tuck, UT and LS stretch, scap [...] in rotation and SB without increase in pain.Surveyor Hydrographic Goals: LTG to be met by 06/08/18 [...] Time: 30Total Treatment Time: 45 PT Treatment [facility] Progress Noteson 04-08-2018 Protein mass conc Encounter [facility] : [facility] THERAPYProgress Notes by Jacquelyn Rivera PT at 04/08/2018 1:45 PMAuthor: Jacquelyn Rivera PTService: (none)Author Type: Physical TherapistFiled: 04/08/2018 6:47 PMEncounter Date: 04/08/2018Status: SignedEditor: Jacquelyn Rivera PT (Physical Therapist)Physical Therapy EvaluationEncounter diagnosis:ICD-10-CM1.Cervical giaM54.22.Headache in back of nkrtK35Aujolrleq provider: Mellisa Clarke,*Primary Medical Diagnosis: CervicalgiaPlan of [...] Home: 15Prior Level of Functioning: Level of [place]: Modified IndependentCuprovidence health Level of Functioning: Outcome Score: NDI (26 raw score NDI, 52% disability) Functional deficits: reports no functional deficits, able to do everything just withincreased pain. Level of [place]: Modified IndependentSleep Status/Sleep Hygiene: Preferred Sleep Position: [...] codes)G8978 Mobility Current Status; Severity: CK 40-59% ongboscrT2210 Mobility Goal Status; Severity: CI 1-19% impairedOutcome measure(s)/Test(s) used/Result(s): 52% disability on NDI.Clinical Judgment: Moderate to severe impairement, decreased neck ROM and strength, tenderness totrigger points moderateNew Category to Nahbhv-Fg-Whrk only?:NoEvaluation Breakdown DescriptionPatient HistoryComorbiditiesEnvironme ntal/Personal factorsLearning/CognitionDome stic [...] in rotation and SB without increase in pain.Surveyor Hydrographic Goals: LTG to be met by 06/08/18 [...] 60Time in: 1:44Time Out: 2:45 PT [facility] Vital Signs Date Time Vital Sign Value Performing Clinician Facility 06-23-2025 09:50-0400 Body height 177.8 cm Yuri Rodriguez DPM Work Phone: [facility] 06-23-2025 09:50-0400 Body mass index (BMI) [Ratio] 35.87 kg/m2 Yuri Rodriguez DPM Work Phone: [facility] 06-23-2025 09:50-0400 Body weight 113.4 kg Yuri Rodriguez DPM Work Phone: [facility] 06-23-2025 09:50-0400 Respiratory rate 18 /min Yuri Rodriguez DPM Work Phone: [facility] 06-14-2025 11:48-0400 Body weight 111.13 kg Mario Zayas MD Work Phone: [facility] 06-14-2025 11:48-0400 Heart rate 75 /min Mario Zayas MD Work Phone: [facility] 06-14-2025 11:48-0400 Inhaled oxygen flow rate 3 L/min Mario Zayas MD Work Phone: [facility] 06-14-2025 11:48-0400 Respiratory rate 16 /min Mario Zayas MD Work Phone: [facility] 06-14-2025 11:48-0400 SaO2% (BldA) [Mass fraction] 93 % Mario Zayas MD Work Phone: [facility] 04-15-2025 09:22-0400 Body height 177.8 cm Tree Krishnan DO Work Phone: [facility] 04-15-2025 09:22-0400 Body mass index (BMI) [Ratio] 35.87 kg/m2 Tree Krishnan DO Work Phone: [facility] 04-15-2025 09:22-0400 Body weight 113.4 kg Tree Biedenbach DO Work Phone: [facility] 2025 09:00-0400 Body height 177.8 cm Tree Biedenbach DO Work Phone: [facility] 2025 09:00-0400 Body mass index (BMI) [Ratio] 35.87 kg/m2 Tree Biedenbach DO Work Phone: [facility] 2025 09:00-0400 Body weight 113.4 kg Tree Biedenbach DO Work Phone: [facility] 12-27-2024 10:42-0400 Body height 177.8 cm Linsey Hall PA Work Phone: [facility] 12-27-2024 10:42-0400 Body mass index (BMI) [Ratio] 35.87 kg/m2 Linsey Hall PA Work Phone: [facility] 12-27-2024 10:42-0400 Body weight 113.4 kg Linsey Hall PA Work Phone: [facility] 12-27-2024 10:42-0400 Diastolic blood pressure 82 [...] 172.7 cm Gillian Taylor MD Work Phone: [facility] 06-24-2024 13:52-0400 Body mass index (BMI) [Ratio] 37.26 kg/m2 Gillian Taylor MD Work Phone: [facility] 06-24-2024 13:52-0400 Body weight 111.13 kg Gillian Taylor MD Work Phone: [facility] 06-24-2024 13:52-0400 Diastolic blood pressure 62 mm[Hg] Gillian Taylor MD Work Phone: [facility] 06-24-2024 13:52-0400 Heart rate 74 /min Gillian Taylor MD Work Phone: [facility] 06-24-2024 13:52-0400 SaO2% (BldA) [Mass fraction] 94 % Gillian Taylor MD Work Phone: [facility] 06-24-2024 13:52-0400 Systolic blood pressure 122 mm[Hg] Gillian Taylor MD Work Phone: [facility] 06-09-2024 11:17-0400 Body height 172.7 cm Linsey Hall PA Work Phone: [facility] [...] fraction] 93 % Linsey LI Work Phone: [facility] Walk-in Appointment Scheduler 06-09-2024 11:17-0400 Systolic blood pressure 132 mm[Hg] Linsey LI Work Phone: [facility] 05-29-2022 14:58-0400 [...] Date Encounter Type Care Provider Facility Start: 06-23-2025 End: 06-23-2025 Bamboo flowsheet Yuri Rodriguez DPM Work Phone: [facility] Start: 06-23-2025 End: 06-23-2025 Bamboo flowsheet Yuri Rodriguez DPM Work Phone: [facility] Start: 06-23-2025 End: 06-23-2025 ambulatory YURI RODRIGUEZ Not Available Start: 06-23-2025 End: 06-23-2025 Office outpatient new 30 minutes Yuri Rodriguez DPM Work Phone: [facility] Comment on above: PVD (peripheral vasc ular disease); Other polyneuropathy; Pain due to onychomycosis of toenails of both feet; Paronychia, toe, left Start: 06-14-2025 End: 06-14-2025 ambulatory Mario Zayas MD Work Phone: [facility] Work Phone: Start: 06-14-2025 End: 06-14-2025 Patient encounter procedure Danni Mccoy TELEVISION PRODUCER-PRODUCTION COORDINATOR-C -[facility] [place] Work Phone: Start: 06-14-2025 End: 06-14-2025 ambulatory Mario Zayas MD Work Phone: [facility] Work Phone: Start: 06-14-2025 End: 06-14-2025 Departed Referred Mario Hogan MD -[facility] Start: 05-27-2025 End: 05-27-2025 ambulatory [facility] Start: 04-21-2025 ambulatory [facility] Start: 04-21-2025 End: 04-21-2025 ambulatory [facility] Start: 04-15-2025 End: 04-15-2025 Bamboo flowsheet Tree Nigel Biedenbach DO Work Phone: [facility] Start: 04-15-2025 End: 04-15-2025 Bamboo flowsheet Tree S Biedenbach DO Work Phone: [facility] Start: 04-15-2025 End: 04-15-2025 Office outpatient visit 25 minutes Tree Manning Biedenbach DO Work Phone: [facility] Comment on above: Otorrhea of right ea r (Primary Dx); Dysfunction of right eustachian tube; Chronic anticoagulation Start: 04-15-2025 End: 04-15-2025 ambulatory TREE WELLSENJANAK Not Available Start: 04-14-2025 End: 04-14-2025 ambulatory [facility] Start: 2025 End: 2025 Bamboo flowsheet Tree Manning Biedenbach DO Work Phone: [facility] Start: 2025 End: 2025 Bamboo flowsheet Tree Manning Biedenbach DO Work Phone: [facility] Start: 2025 End: 2025 Office outpatient visit 15 minutes Tree Sheredenbach DO Work Phone: [facility] Comment on above: Dysfunction of right eustachian tube (Primary Dx); Otorrhea of right ear; Chronic anticoagulation Start: 2025 End: 2025 ambulatory TREE SHEREDENJANAK Not Available Start: 12-31-2024 End: 12-31-2024 ambulatory [facility] Start: 12-27-2024 End: 12-27-2024 Bamboo flowsheet [...] Lumbosacral radiculopathy Start: 08-16-2024 End: 08-16-2024 ambulatory [facility] Start: 07-29-2024 End: 08-03-2024 Refill Pablo TOVAR Work Phone: [facility] Comment on above: Med Refill Start: 06-24-2024 End: 06-24-2024 Office outpatient visit 25 minutes Gillian Taylor MD Work Phone: [facility] Comment on above: Coronary artery dise ase involving coronary bypass graft of [place] heart without angina pectoris (Primary Dx); Paroxysmal atrial fibrillation ([facility]); Primary hypertension; Mixed hyperlipidemia; Left ventricular dysfunction Start: 06-24-2024 End: 06-24-2024 ambulatory GILLIAN TAYLOR [facility] Start: 06-23-2024 End: 06-23-2024 Telephone encounter [facility] Start: 06-09-2024 End: 06-09-2024 Office outpatient visit 15 minutes Linsey LI Work Phone: [facility] Comment on above: 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 with discogenic back pain and lower extremity pain (Primary Dx); Neck pain; Chronic daily headache; Tremor Start: 06-08-2024 End: 06-08-2024 BamDianpingo flowsheet Aleyda Lackey MD Work Phone: [facility] Start: 06-08-2024 End: 06-08-2024 BamDianpingo [employer] Aleyda Lackey MD Work Phone: [facility] Start: 06-08-2024 End: 06-08-2024 Patient encounter procedure Aleyda Lackey MD Work Phone: [facility] Comment on above: Carpal tunnel syndro me of left wrist (Primary Dx) Start: 05-21-2024 End: 05-21-2024 [facility]ill Rad[facility] Griffin [facility] Comment on above: Med Refill Start: 05-17-2024 End: 05-17-2024 ambulatory EMELY PiersonJUAN FRANCISCO [facility] Comment on above: DDD (degenerative di sc disease), lumbar; Lumbosacral radiculopathy Start: 05-14-2024 End: 05-14-2024 Telephone encounter Juana Hercules CMA [facility] Start: 04-30-2024 End: 04-30-2024 Telephone encounter Ashlee Lim [facility] Start: 02-18-2024 End: 02-19-2024 Refill Neisha Weathers RN [facility] Comment on above: Med Refill Start: 01-24-2024 End: 01-28-2024 Refill Nikunj Borjas MD Work Phone: [facility] Comment on above: Med Refill Start: 12-30-2022 End: 12-31-2022 ambulatory DARNELL ALICEA . Facility:[facility] Start: 12-17-2022 End: 12-18-2022 ambulatory DARNELL ALICEA . Facility: Start: 06-17-2022 AUDIT Referring Prov ider Unknown [facility] [facility] Work Phone: Start: 05-29-2022 Office outpatient ne w 45 minutes Referring Provider Unknown [facility]CT [facility] Work Phone: Start: 05-29-[address] Popeye Peña [facility] Start: 05-21-2022 End: 08-14-2022 [facility] Facility: Start: 04-26-2022 End: 04-27-2022 [facility] Facility: Start: 04-23-2018 End: 04-23-2018 Patient encounter BERLIN Demarco [facility] Start: 04-21-2018 End: 04-21-2018 Patient encounter [place] Demarco [facility] Start: 04-16-2018 End: 04-16-2018 Patient encounter COLLETTE Porter PISANO [facility] Start: 04-10-2018 End: 04-10-2018 Patient encounter [place] Demarco [facility] Start: 04-08-2018 End: 04-08-2018 Patient encounter MELLISA CLARKE [facility] Patient encounter status Referri ng Provider [...] coronary artery bypass grafting Hx of CABG Nikunj Borjas MD Work Phone: Cataract surgery Referring P ruthie Unknown Coronary artery bypa ss graft Referring Provider Unknown Hernia repair Referring Prov ider Unknown History of coronary artery bypass grafting Hx of CABG Neisha Weathers RN History of coronary artery bypass grafting Hx of CABG Nikunj Borjas MD Work Phone: History of coronary artery bypass grafting Hx of CABG Radha Griffin RN History of coronary artery bypass grafting Hx of CABG Pablo Zaragoza TELEVISION PRODUCER-FIELD APPLICATIONS SPECIALIST Work Phone: History of coronary artery bypass grafting Hx of CABG Keron Arreguin PA-C Work Phone: Prosthetic arthropla sty of shoulder Referring Provider Unknown Total replacement of hip Ref erring Provider Unknown Plan of Treatment Date Care Activity Detail Author Start: 08-13-2033 DTaP,Tdap and Td Vaccines (2 - Td or Tdap) DTaP,Tdap and Td Vaccines (2 - Td or Tdap) [facility] Start: 10-17-2025 End: 10-17-2025 Patient encounter procedure 10/17/2025 10:15 AM EST Office Visit [facility] [address] [place] [id number] Tree Krishnan, [address] [place] [address] [facility] Start: 09-15-2025 End: 09-15-2025 Patient encounter procedure 09/15/2025 10:50 AM EST Procedure Visit [facility] [address] [facility] [address] [place] [id number] Yuri Rodriguez DPM [address] [facility] [address] [place] [address] [facility] Start: 06-24-2025 Adult BMI Screening Adult BMI Screening [facility] Start: 06-24-2025 Tobacco Screening Tobacco Screening [facility] Start: 06-14-2025 Bacteria identified in Urine by Culture Urine Culture [facility] Start: 06-14-2025 Patient referral [facility] Work Phone: Start: 06-14-2025 Urine culture [facility] Start: 05-16-2025 End: 05-16-2025 Patient encounter procedure 05/16/2025 10:40 AM EDT Office Visit [facility] [place] [address] [place] [phone] Linsey Hall PA [address] [place] [id number] [facility] [place] Start: 05-09-2025 Influenza vaccination [facility] Start: 04-15-2025 End: 04-15-2025 Patient encounter procedure [facility] Comment on above: Arrived Start: 2025 End: 2025 Patient encounter procedure 2025 9:15 AM EDT Office Visit [facility] [address] [place] [address] Tree Krishnan DO [address] [place] [address] Arrived [facility] Comment on above: Arrived Start: 12-23-2024 End: 12-23-2024 Patient encounter procedure 12/23/2024 10:40 AM EDT Office Visit [facility] SANTIAG[facility] [address] [place] [phone] Linsey Hall PA [address] [place] [address] [facility] [place] Start: 12-21-2024 End: 12-21-2024 Patient encounter procedure 12/21/2024 10:40 AM EDT Office Visit [facility] [place] [address] [place] [address] Linsey Hall PA [address] [place] [address] [facility] Start: 07-29-2024 Adult BMI Screening Adult BMI Screening [facility] Start: 07-29-2024 Tobacco Screening Tobacco Screening [facility] Start: 06-24-2024 End: 06-24-2025 CT Chest WO and CT angiogram Coronary arteries W contrast IV CT angiogram chest Imaging Routine Coronary artery disease involving coronary bypass graft of [place] heart without angina pectoris Expected: 06/24/2024, Expires: 06/24/2025 [facility] Comment on above: Expected: 06/24/2024, Expires: Start: 06-24-2024 End: 06-24-2025 Echo complete W/O contrast Echo complete W/O contrast Echocardiography Routine Coronary artery disease involving coronary bypass graft of [place] heart without angina pectoris Expected: 06/24/2024, Expires: 06/24/2025 [facility] Comment on above: Expected: 06/24/2024, Expires: Start: 06-24-2024 End: 06-24-2024 Patient encounter procedure 06/24/2024 2:00 PM EDT [facility] [address] [place] [address] Gillian Taylor MD [address] [place] [address] [facility] Start: 06-09-2024 End: 06-09-2024 Patient encounter procedure 06/09/2024 11:20 AM EDT Office Visit [facility] [place] [address] [place] [address] Linsey Hall PA [address] [place] [address] [facility]ANTIAGO [facility] Start: 06-08-2024 End: 06-08-2024 [facility] Comment on above: Arrived Start: 05-17-2024 End: 05-17-2024 Professional / ancillary services management 05/17/2024 8:30 AM EDT Ancillary Procedure [facility] [address] [place] [address] Emely Cantu MD [address] [place] [address] [facility] Start: 05-09-2024 Influenza vaccination [facility] Start: 2010 Administration of varicella zoster vaccine Zoster (Shingles) Vaccine (1 of 2) [facility] Start: 2010 Pneumococcal Vaccine: 65+ Years (1 of 1 - PCV) Pneumococcal Vaccine: 65+ Years (1 of 1 - PCV) [facility] Start: 1979 DTaP,Tdap and Td Vaccines (1 - Tdap) DTaP,Tdap and Td Vaccines (1 - Tdap) [facility] Start: 1978 Adult BMI Follow Up Plan Adult BMI Follow Up Plan [facility] Start: 1972 Depression Screening Depression Screening [facility] Start: 1960 Screening for malignant neoplasm of colon [facility] End: 06-24-2025 CBC panel - Blood by Automated count CBC Lab Routine Paroxysmal atrial fibrillation (CMS-HCC) 1 Occurrences starting 06/24/2024 until 06/24/2025 [facility] Comment on above: 1 Occurrences starting 06/24/2024 until 06/24/2025 Cefuroxime free [Mass/volume] in Serum or Plasma [facility] End: 06-24-2025 Comprehensive metabolic 2000 panel - Serum or Plasma CMP Lab Routine Primary hypertension 1 Occurrences starting 06/24/2024 until 06/24/2025 [facility] Comment on above: 1 Occurrences starting 06/24/2024 until 06/24/2025 End: 06-24-2025 Lipid panel Lipid panel Lab Routine Mixed hyperlipidemia 1 Occurrences starting 06/24/2024 until 06/24/2025 [facility] Work Phone: Comment on above: 1 Occurrences starting 06/24/2024 until 06/24/2025 Patient referral [facility] Work Phone: Pyridoxine [Mass/volume] in Serum or Plasma [facility] US.doppler Lower extremity artery Vascular US lower extremity arterial Doppler complete Vascular Ultrasound Routine PVD (peripheral vascular disease) Ordered: 06/23/2025 [facility] [facility] Work Phone: Comment on above: Ordered: 06/23/2025 [facility] Immunizations Immunization Date Immunization Notes Care Provider [facility] 08-13-2023 Influenza, injectabl e, Madin Fely Canine [...] Hospital 05-23-2021 influenza virus vaccine, unspecified formulation Nikunj Borjas MD Work Phone: [facility] [employer] [facility] 10-25-2020 Pfizer Purple Cap SARS-CoV-2 Vaccination Yuri Chapa MA [facility] 09-20-2020 Pfizer Purple Cap SARS-CoV-2 Vaccination Yuri Chapa MA [facility] Payers Date Payer Category Payer Self-pay 2022 Medicare (Managed Care) [employer] M [employer]ARE ADVANTAGE [id number] 2019 Medicare [id number] 2019 Medicare HMO HUMAN MEDICARE [id number] 1960 Unknown [id number] [id number]. 2.356 1960 Unknown [id number] 2.16.840.1.383665.3.579. 2.593 1960 Unknown [id number] 2.16.840.1.239432.3.579. 2.593 1960 Unknown [id number] 2.16.840.1.213379.3.579. 2.593 1960 Unknown [id number] 2.16.840.1.507463.3.579. 2.593 1960 Unknown [id number] 2.16.840.1.595646.3.579. 2.1286 1960 Unknown [id number] 2.16.840.1.037832.3.579. 2.1286 1960 Unknown [id number] 2.16.840.1.884989.3.579. 2.1259 1960 Unknown [id number] 2.16.840.1.477579.3.579. 2.1259 1960 Unknown [id number] 2.16.840.1.112005.3.579. 2.1259 1960 Unknown [id number] 2.16.840.1.240868.3.579. 2.1259 1959 Medicare [id number] Unknown Unknown [id number]. 2.531 Social History Date Type Detail Facility Start: 03-15-2024 End: 04-15-2025 Social alcohol use Social alcohol use [facility] Start: 03-15-2024 End: 06-14-2025 Tobacco smoking status AKIS Ex-smoker [facility] Start: 09-08-1974 End: 09-08-2009 History of tobacco use Current smoker [facility] Start: 09-08-1974 End: 09-08-2009 History of tobacco use Cigarette Smoker [facility] Start: 05-20-2022 End: 03-15-2024 Tobacco use and exposure Smokeless tobacco non-user [facility] Start: 03-15-2024 End: 06-23-2025 Alcoholic beverage intake Lifetime non-drinker (finding) [facility] Start: 03-15-2024 End: 04-15-2025 Tobacco use panel [facility] Start: 02-13-2023 Alcohol Comment ocassionally [facility] Start: 1960 Sex [facility] Start: 02-21-2023 Gender identity Identifies as male gender (finding) [facility] Start: 07-29-2023 End: 06-24-2024 Alcoholic beverage intake Ex-drinker (finding) [facility] Start: 02-06-2023 Within the past 12 months we worried whether our food would run out before we got money to buy more. Never True [facility] Start: 05-20-2022 Alcohol [facility]: 1960 Sex assigned at Not on file [facility] Start: 03-22-2022 Sex Male (finding) [facility] Clinical Notes 04-30-2024 to 06-23-2025 Yuri Rodriguez, DPEdison - 06/23/2025 9:30 AM EDT Note Date & Type Note Facility 06-23-2025 History of Present illness Narrative Patient: Nikunj Causey : 1960 PCP: Mario Zayas MD SUBJECTIVE [...] Insecurity: No Food Insecurity (06/24/2024) Received from [facility] Hunger Screening Within the past 12 months [...] with arthritis, loss of strength, with positive history of back pain Cardiovascular: denies CP, palpitations, irregular rhythms. Positive history of CABG as well as coronary artery disease and COPD OBJECTIVE LE EXAM: DERM: Elongated thick yellow crumbly nails digits 1 through 10. negative hair growth b/l feet. Slight erythema to the lateral border of the left 5th digit with negative drainage VASC: non palpable pedal pulses bilaterally NEURO: 5.07 [place] Anjum monofilament test intact to digits and [...] shoe gear. Patient have SERVANDO PVRs at [facility] for possible procedure and nail avulsions in the future with follow up post testing Yuri Rodriguez DPM [1] Allergies Allergen Reactions Gluten Meal GI intolerance Isosorbide Nitrate Headache [2] Past Medical History: Diagnosis Date Anemia Arthritis 08/16/2024 Atrial fibrillation (HCC) Cardiomyopathy, ischemic 08/16/2024 Celiac disease ([facility]) 03/04/2019 Centrilobular emphysema ([facility]) 2025 Noted by [facility] last documented on [id number] Cervicalgia 04/08/2018 Chronic anticoagulation 08/16/2024 Chronic obstructive lung disease (HCC) 01/22/2018 Chronic obstructive pulmonary disease (COPD) ([facility]) Chronic systolic heart failure (HCC) 08/16/2024 Class 2 severe obesity due to excess calories with serious comorbidity and body mass index (BMI) of 35.0 to 35.9 in adult 08/16/2024 Coronary artery disease Emphysema of lung (HCC) Erectile dysfunction 08/16/2024 H/O hernia repair Headache in back of head 04/08/2018 Hypertensive heart disease with heart failure (HCC) 2025 Noted by [facility] last documented on [id number] Mixed hyperlipidemia 06/24/2024 [...] and 5 mg in the evening., Disp: , Rfl: ascorbic acid (Vitamin C) 1000 MG tablet, [...] at the same time, Disp: , Rfl: Daliresp 500 MCG tablet, [...] 5 (five) minutes if needed for chest pain, Disp: , Rfl: omeprazole [...] Disp: , Rfl: documented in this encounter [facility] 06-14-2025 Hospital Discharge instructions Ambulatory OrdersReferral to Pain Management Time Frame: 06/14/25, Location: None Selected [facility] Work Phone: 06-14-2025 Evaluation note Diagnosis Onset Date Resolution Paresthesias acute June 14, 2025 11:34am Carpal tunnel syndrome, left chronic June 14 11:34am DDD (degenerative disc disease), lumbar chronic June 14 11:34am Lumbosacral radiculopathy chronic June 14 11:34am Neck pain chronic June 14 11:34am Tremor chronic June 14 11:34am [facility] Work Phone: 1(593) 798-946409-19-2025 [facility] Reason for cardiology [...] on BiPAP during the night 08/16/2024 Giancarlo Causey is a 65 y.o. male with history of coronary artery disease and coronary artery bypass surgery and maze procedure, paroxysmal atrial fibrillation, s/p ablation in [place], thoracic aortic aneurysm, left ventricle dysfunction, hypertension, hyperlipidemia COPD, prior tobacco and alcohol abuse He used to follow with [facility] cardiology. He states that overall [...] once daily as dire (more content not included)...[facility]08-08-2025 History of Present illness Narrative* Tree Krishnan, DO - 04/15/2025 9:30 AM EDT Subjective Patient ID: Giancarlo Causey is a 65 y.o. male who presents [...] tympanostomy tube with replacement documented in this encounterJefferson Memorial [id number] [facility] Reason for cardiology [...] is on BiPAP during the night 08/16/2024 Nikunj Causey is a 65 y.o. male with history of coronary artery disease and coronary artery bypass surgery and maze procedure, paroxysmal atrial fibrillation, s/p ablation in [place], thoracic aortic aneurysm, left ventricle dysfunction, hypertension, hyperlipidemia COPD, prior tobacco and alcohol abuse He used to follow with [facility] cardiology. He states that overall [...] Disp: , Rfl: theop (more content not included)...[facility] 2025 History of Present illness Narrative* Tree Krishnan, DO - 2025 9:15 AM EDT Subjective Patient ID: Giancarlo Causey is a 65 y.o. male who presents [...] family physician and subspecialist documented in this encounterJefferson Memorial [id number] [facility] Reason for cardiology [...] is on BiPAP during the night 08/16/2024 Nikunj Causey is a 64 y.o. male with history of coronary artery disease and coronary artery bypass surgery and maze procedure, paroxysmal atrial fibrillation, s/p ablation in [place], thoracic aortic aneurysm, left ventricle dysfunction, hypertension, hyperlipidemia COPD, prior tobacco and alcohol abuse He used to follow with [facility] cardiology. He states that overall [...] well developed, in no (more content not included)...[facility]04-21-2025 History of Present illness Narrative* GUILLERMO Abdul - 12/27/2024 10:20 AM EDT Subjective Nikunj Causey is a 64 y.o. year old male Chief Complaint Patient presents with Back Pain Past Medical History: Diagnosis Date Anemia Atrial fibrillation (CMS/HCC) Celiac disease (CMS/HCC) 03/04/2019 Cervicalgia 04/08/2018 Chronic obstructive lung disease (CMS/HCC) 01/22/2018 Chronic obstructive pulmonary disease (COPD) (CMS/[facility]) Coronary artery disease ([facility]) Emphysema of lung ([facility]) H/O hernia repair Headache in back of head 04/08/2018 Peripheral polyneuropathy 06/27/2023 Pneumonia Rheumatoid arthritis ([facility]) Sinus tachycardia 01/22/2018 Past Surgical [...] Recent and remote memory are intact. Speech isnormal. Language is fluent with no aphasia. Attention [...] triceps, wrist extensors, wrist extensors, wrist flexor, synchro assembler strength 5/5. LUE Strength deltoid, biceps, triceps, wrist extensors, wrist extensors, wrist flexor, synchro assembler strength 5/5. RLE Strength illopsoas, quadriceps, tibialis [...] Parkinson's disease. He was also recently started onprednisone, which can exacerbate tremor. Blood work revealed TSH within normal range at 0.454. Denies worsening tremor. LUE EMG 06/08/2024: a median neuropathy at or distal to the wrist, such as in carpal tunnel syndrome, which is minimal in degree electrically on the left Cervical spine MRI 02/07/2023: revealed mild to moderate C6-C7 and C7-T1 spinal canal stenoses. Thereis also small posterior disc protrusion at C4-C5, [...] new or worsening symptoms documented in this encounterJefferson Memorial [id number] Telephone encounter Note* Telephone Encounter - Leanne Mancia MA - 12/20/2024 4:44 PM EDT Patient is in need of refill, appt had to be rescheduled due to provider being out. Please send to [facility] [place] [facility] [id number] Miscellaneous Notes* Telephone Encounter - Leanne Mancia MA - 12/20/2024 4:44 PM EDT Patient is in need of refill, appt had to be rescheduled due to provider being out. 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 Explained to him that we do try to keep pt's with same doc but it does not always work out that way. Pt understood but has already seen the the other group. 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 Explained to him that we do try to keep pt's with same doc but it does not always work out that way. Pt understood but has already seen the the other group. [facility]01-02-2025 Telephone encounter Note* Telephone Encounter - Yuri Chapa MA - 09/09/2024 8:59 AM EST 06/09/2024 Continue Lyrica 150mg PO TID for neuropathic pain [facility] reviewed. Last filled 05/17/2024 for 90 day supply. Due 08/15/2024 [facility] [id number] Miscellaneous Notes* Telephone Encounter - Yuri Chapa MA - 09/09/2024 8:59 AM EST 06/09/2024 Continue Lyrica 150mg PO TID for neuropathic pain [facility] reviewed. Last filled 05/17/2024 for 90 day supply. 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 male with history of coronary artery disease and coronary artery bypass surgery and maze procedure, paroxysmal atrial fibrillation, s/p ablation in [place], thoracic aortic aneurysm, left ventricle dysfunction, hypertension, hyperlipidemia COPD, prior tobacco and alcohol abuse [facility]. He states that overall he has [...] rubs, or gallops. RESPIR (more content not included)...[facility] 07-29-2024 Miscellaneous Notes* Telephone Encounter - Diana Munguia LPN - 07/29/2024 9:20 AM EST [place] 06/24/24 documented in this encounterLancaster [facility] Hospital11-21-2024 Telephone encounter Note* Telephone Encounter - Diana Munguia LPN - 07/29/2024 9:20 AM EST [place] 06/24/24 [facility]10-17-2024 History of Present illness Narrative* Gillian Taylor MD - 06/24/2024 2:00 PM EDT Nikunj Wyatt Causey Date of visit: 06/24/2024 Date of : 1960 Age: 64 y.o. Patient Active Problem List Diagnosis Coronary artery disease involving coronary bypass graft of [place] heart without angina pectoris Paroxysmal atrial fibrillation [...] 0.5 mL (2.5 mg total) by nebulization every4 (four) hours as needed for wheezing. apixaban (ELIQUIS) 5 mg tablet Take 1 tablet (5 mg total) by mouth in the morning and 1 tablet (5 mg total) before bedtime. 180 tablet 1 ascorbic acid, vitamin C, (VITAMIN C) 1000 mg tablet Take 1 tablet (1,000 mg total) by mouth in themorning. aspirin 81 mg Take 1 tablet (81 [...] 65 mg by mouth daily with breakfast. xwdpawjwsnn-btoozjcqd-aurdmluz (TRELEGY ELLIPTA) 200-62.5-25 mcg blister with device [...] atrial fibrillation despite the reported ablation in [place], continue on anticoagulation.We discussed this again today and of course [...] cardiologists. I discussed the nature of our largegroup. He may be better served with a [...] Ht 172.7 cm (5' 7.99 ) Wt 111.1kg (245 lb) SpO2 94% BMI 37.26 kg/m No orders of the defined types were placed in this encounter. Medications Discontinued During This Encounter Medication Reason lysine 500 mg tablet zonisamide (ZONEGRAN) 25 mg capsule IMPRESSIONS/PLAN 1. Coronary artery disease involving coronary bypass graft of [place] heart without angina pectoris - POCT EKG - CT angiogram chest; Future - Echo complete W/O contrast; Future 2. Paroxysmal atrial fibrillation (CMS-HCC) - CBC; Future 3. Primary hypertension - CMP; Future 4. Mixed hyperlipidemia - Lipid panel; Future 5. Left ventricular dysfunction 1. ASCVD without angina --history of CABG with Maze --[facility]S to the LAD 2015 in [place] 2. Cardiomyopathy -ischemic versus related to alcohol [...] APRN-CHAO Referring Physician: Kacie Del Real MD [address] [place] [address] documented in this encounterPorter Medical CenterDocebo10-17-2024 Instructions* Patient Instructions* Gillian Taylor MD - 06/24/2024 2:00 PM EDT Laboratory studies CTA of the aorta Echocardiogram documented in this [facility]10-16-2024 Miscellaneous Notes* Telephone Encounter - Juana Hercules CMA - 06/23/2024 10:05 AM EDT Called patient to remind them to bring their most current copy of their medication list with them to their appt. Patient verbalizes understanding. documented in this [facility]10-16-2024 Telephone encounter Note* Telephone Encounter - Juana Hercules CMA - 06/23/2024 10:05 AM EDT Called patient to remind them to bring their most current copy of their medication list with them to their appt. Patient verbalizes understanding. [employer]10-02-2024 History of Present illness Narrative* GUILLERMO Abdul - 06/09/2024 11:20 AM EDT Subjective Nikunj Causey is a 64 y.o. year old male [...] handles -admits hand weakness -some trouble with synchro assembler ROS Review of Systems Constitutional: Negative for [...] Recent and remote memory are intact. Speech isnormal. Language is fluent with no aphasia. Attention [...] triceps, wrist extensors, wrist extensors, wrist flexor, synchro assembler strength 5/5. LUE Strength deltoid, biceps, triceps, wrist extensors, wrist extensors, wrist flexor, synchro assembler strength 5/5. RLE Strength illopsoas, quadriceps, tibialis [...] Parkinson's disease. He was also recently started onprednisone, which can exacerbate tremor. Blood work revealed TSH within normal range at 0.454. Tremor is stable. LUE EMG 06/08/2024: a median neuropathy at or distal to the wrist, such as in carpal tunnel syndrome, which is minimal in degree electrically on the left Cervical spine MRI 02/07/2023: revealed mild to moderate C6-C7 and C7-T1 spinal canal stenoses. Thereis also small posterior disc protrusion at C4-C5, [...] new or worsening symptoms documented in this encounterJefferson Memorial [id number] History of Present illness Narrative* Vera Zuñiag MA - 06/08/2024 12:15 PM EDT Images from the original note were not included. 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 No Hx of DM, takes Eliquis and ASA Comments: Procedure explained to the patient who expressed understanding. documented in this encounterJefferson Memorial [id number] Miscellaneous Notes* Telephone Encounter - Juana Hercules CMA - 05/14/2024 10:40 AM EDT Phoned pt to advise that appt scheduled for 05/17/2024 is the date that his EM will be sent out andis NOT an actual appt. Verbalized understanding. documented in this encounterLanc[facility]09-06-2024 Telephone encounter Note* Telephone Encounter - Juana Hercules CMA - 05/14/2024 10:40 AM EDT Phoned pt to advise that appt scheduled for 05/17/2024 is the date that his EM will be sent out andis NOT an actual appt. Verbalized understanding. 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 Please advise. Thank you! 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 * Telephone Encounter - Emely Cantu MD - 04/30/2024 10:24 AM EDT This is something we would need to discuss in more detail. We usually continue anticoagulation despite the atrial fibrillation burden. Some position. Anticoagulation if no recurrence in atrial fibrillation but that is not the guideline recommendations. Would need more discussion with patient beforemaking this decision. Recommend 30 day MCOT then follow-up appointment to discuss further. Would continue Eliquis in the meantime. * Telephone Encounter - Ashlee Lim RN - 04/30/2024 10:24 AM EDT Amml asking patient to call us back to review OCCUPATIONAL THERAPIST's response. 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 Please advise. Thank you! 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 [facility] [employer] [id number] Telephone encounter Note* Telephone Encounter - Emely Cantu MD - 04/30/2024 10:24 AM EDT This is something we would need to discuss in more detail. We usually continue anticoagulation despite the atrial fibrillation burden. Some position. Anticoagulation if no recurrence in atrial fibrillation but that is not the guideline recommendations. Would need more discussion with patient beforemaking this decision. Recommend 30 day MCOT then follow-up appointment to discuss further. Would continue Eliquis in the meantime. [facility] [employer] [id number] Telephone encounter Note* Telephone Encounter - Ashlee Lim RN - 04/30/2024 10:24 AM EDT Amml asking patient to call us back to review OCCUPATIONAL THERAPIST's response. [facility]* Diagnosis Carpal tunnel syndrome of left wrist- [...] artery disease involving coronary bypass graft of [place] heart without angina pectoris Hx of CABG Postsurgical aortocoronary bypass status Paroxysmal atrial fibrillation (CMS-HCC) Atrial fibrillation Aneurysm of ascending aorta without rupture (CMS-HCC) History of maze procedure [facility] Diagnosis Coronary artery disease involving coronary bypass graft of [place] heart without angina pectoris Hx of CABG Postsurgical aortocoronary bypass status Paroxysmal atrial fibrillation (CMS-HCC) Atrial fibrillation Aneurysm of ascending aorta without rupture (CMS-HCC) History of maze procedure [facility] Diagnosis Coronary artery disease involving coronary bypass graft of [place] heart without angina pectoris Paroxysmal atrial fibrillation (CMS-HCC) Atrial fibrillation Aneurysm of ascending aorta without rupture (CMS-HCC) Hx of CABG 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 [facility] Diagnosis Coronary artery disease involving coronary bypass graft of [place] heart without angina pectoris- Primary Paroxysmal atrial fibrillation (CMS-HCC) Atrial fibrillation Primary hypertension Unspecified essential hypertension Mixed hyperlipidemia Left ventricular dysfunction Left heart failure documented [facility]* Diagnosis Coronary artery disease involving coronary bypass graft of [place] heart without angina pectoris Paroxysmal atrial fibrillation (CMS-HCC) Atrial fibrillation Aneurysm of ascending aorta without rupture (CMS-HCC) Hx of CABG 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 documented [facility]* Diagnosis Coronary artery disease involving coronary bypass graft of [place] heart without angina pectoris Hx of CABG Postsurgical aortocoronary bypass status Paroxysmal atrial fibrillation (CMS-HCC) Atrial fibrillation Aneurysm of ascending aorta without rupture (CMS-HCC) History of maze procedure [facility] SystemEvaluation note* Diagnosis DDD (degenerative disc disease), lumbar- Primary Degeneration of lumbar or lumbosacral intervertebral disc Lumbosacral radiculopathy Thoracic or lumbosacral neuritis or radiculitis, unspecified documented in this encounter [facility] HealthcareEvaluation note* Diagnosis Degeneration of intervertebral disc of lumbar region with discogenic back pain and lower extremity pain- Primary Lumbosacral radiculopathy Thoracic or lumbosacral neuritis or radiculitis, unspecified Neck pain Cervicalgia Tremor Abnormal involuntary movements Chronic daily headache Headache documented in this encounter [facility] HealthcareEvaluation note* Diagnosis Dysfunction of right eustachian tube- Primary Otorrhea of right ear Chronic anticoagulation Encounter for long-term (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 of 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 documented in this encounter [facility] HealthcareEvaluation note* Diagnosis Otorrhea of right ear- Primary Dysfunction of right eustachian tube Chronic anticoagulation Encounter for long-term (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 of 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 documented in this encounter [facility] noteNo assessment information availableUniversity Hospitals [facility] Work Phone: Evaluation note* Diagnosis PVD (peripheral vascular disease) Unspecified peripheral vascular disease Other polyneuropathy Pain due to onychomycosis of toenails of both feet Paronychia, toe, left documented in this encounter [facility] HealthcareHistory of Present illness NarrativeMrLeyla Causey is referred for consideration of LVRS. 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 He is on 3 L nasal cannula oxygen chronically. He is set to begin pulmonaryrehabilitation.[facility] Work Phone: History of Present illness NarrativeMrLeyla Causey is referred for consideration of LVRS. 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 He is on 3 L nasal cannula oxygen chronically. He is set to begin pulmonaryrehabilitation.[facility] Work Phone: History of Present illness NarrativeMrLeyla Causey is referred for consideration of LVRS. 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 He is on 3 L nasal cannula oxygen chronically. He is set to begin pulmonaryrehabilitation.[facility] Work Phone: InstructionsNot on filedocumented [...] Health SystemInstructionsNot on filedocumented in this encounter [facility] SystemReason for referral (narrative)No reason for referral information availableUniversity Hospitals Samar[facility] Work Phone: Summary Purpose Family [...] malignant neoplasm of breast: Mother(V16.3, Z80.3) Status:Active Relationship Condition Age at Onset Recorded Date/T cindy mother Malignant neoplasm Unknown Heart disease Unknown Hypertension Unknown father Heart disease Unknown Advance Directives No Advanced Directives Records Found Advance Directive Response Recorded Date/ Time Advance Directives No June 13, 2025 3:05pm Reason for Referral Specialty Diagnoses / Procedures Referred By Contac t Referred To Contact Diagnoses Carpal tunnel syndrome of left wrist Procedures NVC 7-8 Nerves Aleyda Lackey MD [address] [place] [address] Referral ID Status Reason Start Date Expiration Date V isits Requested Visits Authorized [id number] Pending Review 06/08/2024 12/05/2024 1 1 Chief Complaint and Reason for Visit Chief Complaint Admit Date SB/AH KAM CH/SC June 14, 2025 11 :34am Chief Complaint Admit Date Unknown June 14, 2025 10 :20am SB/AH KAM CH/SC June 14, 2025 11 :34am Reason for Visit Admit Date Paresthesias June 14, 2025 11 :34am Carpal tunnel syndrome, left June 11:34am DDD (degenerative disc disease), lumbar June 14, 2025 11:34am Lumbosacral radiculopathy June 14, 025 11:34am Neck pain June 14, 2025 11 :34am Tremor June 14, 2025 11 :34am Additional Source Comments (unrecognized sect ion and content) No Status Records FoundNo Status Records FoundNo Status Records FoundNo Status Records FoundNo Status Records FoundNo Status Records FoundNo Status Records FoundNo Status Records Found INFORMATION SOURCE (unrecogn ized section and content) DATE CREATED AUTHOR 07/04/2018 [facility] DATE CREATED AUTHOR AUTHOR'S ORGANIZ ATION 06/09/2022 [facility] DATE CREATED AUTHOR AUTHOR'S ORGANIZ ATION 06/09/2022 [facility] DATE CREATED AUTHOR AUTHOR'S ORGANIZ ATION 02/14/2023 [facility] DATE CREATED AUTHOR AUTHOR'S ORGANIZ ATION 07/06/2024 [facility] DATE CREATED AUTHOR AUTHOR'S ORGANIZ ATION 06/16/2025 [facility] DATE CREATED AUTHOR AUTHOR'S ORGANIZ ATION 06/23/2025 [facility] DATE CREATED AUTHOR AUTHOR'S ORGANIZ ATION 06/25/2025 [facility] Care Teams (unrecognized sec tion and content) Humidifier Maintenance Worker Relationship Specialty Start Date End Date Risa Mcnulty NP [address] [phone] Referring Physician Family Medicine 03/15/24 Humidifier Maintenance Worker Relationship Specialty Start Date End Date Risa Mcnulty NP [address] [place] [address] Referring Physician Family Medicine 03/15/24 Humidifier Maintenance Worker Relationship Specialty Start Date End Date Risa Mcnulty NP [address] [place] [address] Referring Physician Family Medicine 03/15/24 Humidifier Maintenance Worker Relationship Specialty Start Date End Date Risa Mcnulty, MASTER MECHANIC [address] [place] [address] Referring Physician Family Medicine 03/15/24 Humidifier Maintenance Worker Relationship Specialty Start Date End Date Risa Mcnulty, MASTER MECHANIC [address] [place] [address] Referring Physician Family Medicine 03/15/24 Humidifier Maintenance Worker Relationship Specialty Start Date End Date Kacie Del Real MD [address] [place] [address] [phone] PCP - General Family Medicine 03/22/22 Humidifier Maintenance Worker Relationship Specialty Start Date End Date Kacie Del Real MD [address] [place] [phone] PCP - General Family Medicine 03/22/22 Humidifier Maintenance Worker Relationship Specialty Start Date End Date Kacie Del Real MD [address] [place] [address] PCP - General Family Medicine 03/22/22 Humidifier Maintenance Worker Relationship Specialty Start Date End Date Kacie Del Real MD [address] [place] [address] PCP - General Family Medicine 03/22/22 Humidifier Maintenance Worker Relationship Specialty Start Date End Date Kacie Del Real MD [address] [place] [address] PCP - General Family Medicine 03/22/22 Humidifier Maintenance Worker Relationship Specialty Start Date End Date Risa Mcnulty, TELEVISION PRODUCER-PRODUCTION COORDINATOR [address] [place] [address] PCP - General Family Medicine 06/24/24 Humidifier Maintenance Worker Relationship Specialty Start Date End Date Risa Mcnulty, TELEVISION PRODUCER-PRODUCTION COORDINATOR [address] [place] [address] PCP - General Family Medicine 06/24/24 Humidifier Maintenance Worker Relationship Specialty Start Date End Date Risa Mcnulty, TELEVISION PRODUCER-PRODUCTION COORDINATOR [address] [address] PCP - General Family Medicine 06/24/24 Humidifier Maintenance Worker Relationship Specialty Start Date End Date Risa Mcnulty, TELEVISION PRODUCER-PRODUCTION COORDINATOR [address] [address] PCP - General Family Medicine 06/24/24 Humidifier Maintenance Worker Relationship Specialty Start Date End Date Risa Mcnulty MASTER MECHANIC [address] [place] [address] Referring Physician Family Medicine 03/15/24 Humidifier Maintenance Worker Relationship Specialty Start Date End Date Risa Mcnulty NP [address] [place] [address] Referring Physician Family Medicine 03/15/24 Humidifier Maintenance Worker Relationship Specialty Start Date End Date Risa Mcnulty MASTER MECHANIC [address] [place] [address] Referring Physician Family Medicine 03/15/24 Humidifier Maintenance Worker Relationship Specialty Start Date End Date Risa Mcnulty NP [address] [place] [address] Referring Physician Family Medicine 03/15/24 Team Status: Active Member Role Status Dates Mario Zayas MD Primary Care Provider Active Team Status: Inactive Member Role Status Dates Danni Mccoy , TELEVISION PRODUCER-PRODUCTION COORDINATOR-C Attending Provider Active Start: June 14, 2025 End: June 14, 2025 Mario Zayas MD Primary Care Provider Active Start: June 14, 2025 End: June 14, 2025 Team Status: Inactive Member Role Status Dates Mario Zayas MD Attending Provider Active Sta rt: June 14, 2025 End: June 14, 2025 Humidifier Maintenance Worker Relationship Specialty Start Date End Date Mario Zayas MD [address] [place] [address] PCP - General Family Medicine 06/23/25 Risa Mcnulty NP [address] [place] [address] Referring Physician Family Medicine 03/15/24 Humidifier Maintenance Worker Relationship Specialty Start Date End Date Mario Zayas MD [address] [place] [phone] PCP - General Family Medicine 06/23/25 Risa Mcnulty NP [address] [place] [address] Referring Physician Family Medicine 03/15/24 Reason for Visit (unrecogniz ed section and content) Specialty Diagnoses / Procedures Referred By Tonya t Referred To Contact Neurology Diagnoses LUE EMG paresthesias of hand, numbness and tingling, ref by Wei Bill PACr20.2 Procedures NH NERVE CONDUCTION STUDIES 9-10 STUDIES NH NEEDLE EMG EA EXTREMTY W/PARASPINL [place] [address] [place] [address] Aleyda Lackey MD [address] [place] [address] Referral ID Status Reason Start Date Expiration Date V isits Requested Visits Authorized [id number] Closed Perform Procedure 06/08/2024 12/05/2024 1 1 [...] Comments Ear Problem 3 week coco ear drai nage Reason Comments Ingrown Toenail Goals (unrecognized section and content) Goals may be documented in a n alternate section FOR RECORDS PERTAINING TO PATIENTS WHO ARE [...] BE BASED ON THE PRIMARY CLINICAL RECORDS. [employer] [facility]. provides no warranty or guarantee of the accuracy or completeness of information in this document.
[2025-06-27 10:49] LABS: Hematocrit 44.1 % (42.0-54.0); Hemoglobin 14.4 g/dL (14.0-18.0); Immature Granulocytes Abs Auto 0.08 10^3/uL (0.00-0.03); Immature Granulocytes Pct Auto 1.1 % (0.0-0.5); Lymphocytes Absolute Auto 0.9 10^3/uL (1.2-3.8); Mean Corpuscular HGB Conc 32.7 g/dL (29.9-35.2); Mean Corpuscular Hemoglobin 32.7 pg (25.9-34.0); Mean Corpuscular Volume 100.0 fL (80.0-94.0); Platelet Count 143 10^3/uL (150-450); Red Blood Count 4.41 10^6/uL (4.70-6.10); White Blood Count 7.5 10^3/uL (4.0-11.0)
== END 2025-06-27 08:56 | disposition home or self-care (01) ==
LOC: LAB 08:56
PROVIDERS: PCP Family Medicine; Visit Provider Family Medicine
DX: D69.6 Thrombocytopenia, unspecified (principal)
CPT/HCPCS: 36415; 85025

== ENCOUNTER 2025-06-30 12:35 | Outpatient (OUT) | payer MEDICARE, SELFPAY ==
--- OUTSIDE RECORDS SUMMARY | 2025-06-23 09:30 | XMS_ITS | Encounter Summary ---
Author Organization [facility] Address [address] [place] [address] Care Team Providers Care Online Merchandising Coordinator Name Role Phone Pauly Santacruz INSPECTOR BALANCE TRUING Unavailable Mario Zayas MD Primary Care Provider [phone] Reason for Referral * Imaging (Routine) - Pending ReviewSpecialtyDiagnoses / ProceduresReferred By ContactReferred To ContactCardiology Diagnoses PVD (peripheral vascular disease) Procedures Vascular US lower extremity arterial Doppler complete Yuri Rowe DPM [address] [facility] 5 [place] [address] Phone: tel: fax: [facility] Schedule fax: Referral IDStatusReasonStart DateExpiration DateVisits RequestedVisits [id number] Review Perform Procedure / Reason for Visit * ReasonCommentsIngrown Toenail Encounter Details DateTypeDepartmentCare Team (Latest Contact Info)Rwmahlejuch47/16/2025 9:30 AM EDTOffice Visit [facility] 112 [facility] [address] [place] [address] Yuri Rowe DPM [address] [facility] 5 [place] [address] PVD (peripheral vascular disease); Other polyneuropathy; Pain due to onychomycosis of toenails of both feet; Paronychia, toe, left Social History Tobacco UseTypesPacks/DayYears UsedDateSmoking Tobacco: XkuzeuQyxonmsgor565 09/08/1974 - 09/08/2009Smokeless Tobacco: Never Tobacco Cessation:Counseling Given: Yes Alcohol UseStandard Drinks/WeekCommentsNever0 (1 standard drink = 0.6 oz pure alcohol)ocassionallySex and Gender InformationValueDate RecordedSex Assigned at IiaggYaab63/16/2023 9:38 AM EDTLegal SpuKnag3902/06/2023 9:13 AM EDTGender OazxjkoxErcp55/16/2023 9:38 AM EDTSexual OrientationNot on filedocumented as of this encounter Last Filed Vital Signs Vital SignReadingTime TakenCommentsBlood Pressure--Pulse--Temperature-- Respiratory Pmlf4313 9:50 AM EDTOxygen Saturation--Inhaled Oxygen Concentration--Kyyiut616 kg (250 lb)06/23/2025 9:50 AM ROEXnrolh212.8 cm (5' 10 )06/23/2025 9:50 AM EDTBody Mass Index35.8706/23/2025 9:50 AM EDTdocumented in this encounter Progress Notes * Yuri Rowe DPM - 06/23/2025 9:30 AM EDT Patient: Nikunj Atkinson [place] : 1960 PCP: Mario Zayas MD SUBJECTIVE This is a 65 y.o. male that presents today with a CC of elongated, thick nails. Pt states nails have been elongated and thick for many years and cause pain with ambulation in shoegear. Pt has tried previous treatment with minimal relief. Pt presents today for nail care and treatment. Patient's history of peripheral neuropathy secondary to back issues and degenerative disc disease He also has history of COPD and presents today with O2 Patient also complains of painful nails particularly left great toenail and denies any drainage from the area and denies any nausea vomiting chills Allergies: Allergies[1] Past Medical History: Medical History[2] Medications: Current Medications[3] Social History: Social History Socioeconomic History Marital status: Spouse name: Not on file Number of children: Not on file Years of education: Not on file Highest education level: Not on file Occupational History Not on file Tobacco Use Smoking status: Former Current packs/day: 0.00 Average packs/day: 2.0 packs/day for 35.0 years (70.0 ttl pk-yrs) Types: Cigarettes Start date: 09/08/1974 Quit date: 09/08/2009 Years since quittin.8 Smokeless tobacco: Never Substance and Sexual Activity Alcohol use: Never Comment: ocassionally Drug use: Defer Sexual activity: Defer Other Topics Concern Not on file Social History Narrative Not on file Social Drivers of Health Financial Resource Strain: Not on file Food Insecurity: No Food Insecurity (06/24/2024) Received from [facility] Hunger Screening Within the past 12 months we worried whether our food would run out before we got money to buy more.: Never True Within the past 12 months the food we bought just didn't last and we didn't have money to get more.: Never True Transportation Needs: Not on file Physical Activity: Not on file Stress: Not on file Social Connections: Not on file Intimate Partner Violence: Not on file Housing Stability: Not on file ROS: Gastrointestinal: denies abdominal pain, ulcers, or changes in appetite or bowel habits Musculoskeletal: positive hx of DJD to back with arthritis, loss of strength, with positive historyof back pain Cardiovascular: denies CP, palpitations, irregular rhythms. Positive history of CABG as well as coronary artery disease and COPD OBJECTIVE LE EXAM: DERM: Elongated thick yellow crumbly nails digits 1 through 10. negative hair growth b/l feet. Slight erythema to the lateral border of the left 5th digit with negative drainage VASC: non palpable pedal pulses bilaterally NEURO: 5.07 [place] Anjum monofilament test intact to digits and forefoot bilaterally 125Hz tuning fork diminished to 1st MPJ bilaterally ORTHO: Positive pain on palpation to toenails of the left 1,2,3,4,5 toes and right 1,2,3,4,5 toes ASSESSMENT 1. PVD (peripheral vascular disease) 2. Other polyneuropathy 3. Pain due to onychomycosis of toenails of both feet 4. Paronychia, toe, left PLAN Discussed proper foot care with patient today. Debride nails in length and thickness digits 1 through 10 Patient educated today on proper foot care including monitoring feet daily for any signs of infection openings in the skin or irregularities to both feet. Patient had a diabetic neurological exam today to both their feet and discussed proper shoe gear. Patient have SERVANDO PVRs at [facility] for possible procedure and nail avulsions in the future with follow up post testing Yuri Rowe DPM [1] Allergies Allergen Reactions Gluten Meal GI intolerance Isosorbide Nitrate Headache [2] Past Medical History: Diagnosis Date Anemia Arthritis 08/16/2024 Atrial fibrillation (HCC) Cardiomyopathy, ischemic 08/16/2024 Celiac disease (HCC) 03/04/2019 Centrilobular emphysema ([facility]) 2025 Noted by [facility] last documented on [id number] Cervicalgia 04/08/2018 Chronic anticoagulation 08/16/2024 Chronic obstructive lung disease (HCC) 01/22/2018 Chronic obstructive pulmonary disease (COPD) ([facility]) Chronic systolic heart failure ([facility]) 08/16/2024 Class 2 severe obesity due to excess calories with serious comorbidity and body mass index (BMI) of35.0 to 35.9 in adult 08/16/2024 Coronary artery disease Emphysema of lung ([facility]) Erectile dysfunction 08/16/2024 H/O hernia repair Headache in back of head 04/08/2018 Hypertensive heart disease with heart failure (HCC) 2025 Noted by [facility] last documented on [id number] Mixed hyperlipidemia 06/24/2024 Pain in wrist 08/16/2024 Peripheral polyneuropathy 06/27/2023 Pneumonia Primary hypertension 06/24/2024 Pure hypercholesterolemia 08/16/2024 Rheumatoid arthritis (HCC) Sinus tachycardia 01/22/2018 [3] Current Outpatient Medications: albuterol (5 MG/ML) 0.5% nebulizer solution, Take 2.5 mg by nebulization every 4 (four) hours if needed for wheezing or shortness of breath, Disp: , Rfl: albuterol HFA 90 mcg/act inhaler, Inhale 2 puffs every 6 (six) hours if needed for wheezing or shortness of breath, Disp: , Rfl: apixaban (Eliquis) 5 MG tablet, Take 5 mg by mouth in the morning and 5 mg in the evening., Disp: ,Rfl: ascorbic acid (Vitamin C) 1000 MG tablet, Take 1,000 mg by mouth in the morning., Disp: , Rfl: aspirin 81 MG EC tablet, Take 81 mg by mouth in the morning., Disp: , Rfl: atorvastatin (Lipitor) 40 MG tablet, Take 40 mg by mouth at bedtime, Disp: , Rfl: azithromycin (Zithromax) 250 MG tablet, Take 250 mg by mouth Daily, Disp: , Rfl: cholecalciferol (Vitamin D-3) 50 MCG (2000 UT) capsule, 1 capsule 1 (one) time each day at the sametime, Disp: , Rfl: Daliresp 500 MCG tablet, Take 500 mcg by mouth in the morning., Disp: , Rfl: dapagliflozin (Farxiga) 10 MG, Take 10 mg by mouth, Disp: , Rfl: ferrous sulfate 325 (65 Fe) MG EC tablet, Take 65 mg by mouth in the morning. Take with meals., Disp: , Rfl: ipratropium-albuterol (Duo-Neb) 0.5-2.5 mg/3 mL nebulizer solution, Take 3 mL by nebulization in the morning and 3 mL at noon and 3 mL in the evening and 3 mL before bedtime., Disp: , Rfl: isosorbide mononitrate ER (Imdur) 30 MG 24 hr tablet, Take 30 mg by mouth Daily, Disp: , Rfl: lisinopril 5 MG tablet, Take 5 mg by mouth in the morning., Disp: , Rfl: meloxicam (Mobic) 15 MG tablet, Take 15 mg by mouth Daily, Disp: , Rfl: metoprolol succinate XL (Toprol-XL) 50 MG 24 hr tablet, Take 50 mg by mouth in the morning and 50 mg before bedtime., Disp: , Rfl: nitroglycerin (Nitrostat) 0.4 MG SL tablet, Place 0.4 mg under the tongue every 5 (five) minutes ifneeded for chest pain, Disp: , Rfl: omeprazole (PriLOSEC) [address] capsule, Take 40 mg by mouth in the morning., Disp: , Rfl: pantoprazole (ProtoNix) 40 MG EC tablet, Take 40 mg by mouth Daily, Disp: , Rfl: predniSONE (Deltasone) 20 MG tablet, Take 20 mg by mouth Daily, Disp: , Rfl: pregabalin (Lyrica) 150 MG capsule, Take 1 capsule (150 mg) by mouth in the morning and 1 capsule (150 mg) in the evening and 1 capsule (150 mg) before bedtime., Disp: 270 capsule, Rfl: 0 sodium chloride 0.9 % nebulizer solution, Inhale 3 mL, Disp: , Rfl: spironolactone (Aldactone) 25 MG tablet, Take 25 mg by mouth in the morning., Disp: , Rfl: SUMAtriptan (Imitrex) 100 MG tablet, , Disp: , Rfl: theophylline ER (Uniphyl) 400 MG 24 hr tablet, Take 400 mg by mouth in the morning and 400 mg before bedtime., Disp: , Rfl: tiZANidine (Zanaflex) 4 MG tablet, TAKE 2 TABLETS BY MOUTH AT BEDTIME FOR 30 DAYS, Disp: , Rfl: topiramate 50 MG tablet, Take 1 tablet by mouth Daily, Disp: , Rfl: Trelegy Ellipta 100-62.5-25 MCG/ACT aerosol powder , Inhale 1 puff in the morning., Disp: , Rfl: zinc gluconate 50 MG tablet, 1 (one) time each day at the same time, Disp: , Rfl: documented in this encounter Plan of Treatment DateTypeDepartmentCare Team (Latest Contact Info)Nqcapxeyenr89/08/2026 10:50 AM ESTProcedure Visit [facility] 112 [facility] [address] [place] [address] Yuri Rowe DPM [address] [facility] 5 [place] [address] 10/17/2025 10:15 AM ESTOffice Visit [facility] [address] [place] [address] Tree Carmona DO [address] [place] [address] NameTypePriorityAssociated DiagnosesOrder ScheduleVascular US lower extremity arterial Doppler completeVascular UltrasoundRoutine PVD (peripheral vascular disease) Ordered: 06/23/2025documented as of this encounter Visit Diagnoses Diagnosis PVD (peripheral vascular disease) Unspecified peripheral vascular disease Other polyneuropathy Pain due to onychomycosis of toenails of both feet Paronychia, toe, left documented in this encounter Care Teams Team MemberRelationshipSpecialtyStart DateEnd Date Mario Zayas MD [address] [place] [address] PCP - GeneralFamily Hblkskfh57/16/25 Pauly Santacruz NP [address] [place] [address] Referring PhysicianFamily Medicine03/15/24documented as of this encounter
--- OUTSIDE RECORDS SUMMARY | 2025-06-27 08:36 | XMS_ITS ---
Author Organization [facility] [place] Address [address] [place] [address] Care Team Providers Care Allied Health Teacher Name Role Phone Andres Zayas Primary Care Provider REASON FOR VISIT labs Encounters Encounter Location Date Provider Diagnosis [facility] [address] [place] [address] 06/27/2025 Andres Zayas Hypertension I10 and Thrombocytopenia D69.6 Assessments Encounter Date Diagnosis (ICD Code) Assessment Notes Treatment Notes Treatment Clinical Notes Section Notes 06/27/2025 Hypertension (ICD-10 - I10) 06/27/2025Thrombocytopenia (ICD-10 - D69.6) Plan Of Treatment Pending Test Test Name Order Date CBC W/AUTO DIFF 06/27/2025 Progress Notes * Nikunj TABOR EDOB:1959 (65 yo M)Acc No.[id number]:06/27/2025 Patient:?Nikunj TBAOR :1960???Age:65 Y???Sex:MalePhone:[phone] Address:[address] [place], [place] [address], [address] Subjective: * Chief Complaints: * L abs * Medical History: * Surgical History: * Hospitalization/Major Diagno stic Procedure: * Medications: Objective: * Vitals: * Physical Examination: ??? Assessment: * Assessment: 1.?Hypertension - I10 (Primary)???2.?Thrombocytopenia - D69.6?? Plan: * Treatment: ?LAB: CBC W/AUTO DIFF2.?Thrombocytopenia?LAB: CBC W/AUTO DIFF * Procedure Codes: * true * Date:?Generated for Printing/Faxing/eTransmitting on:?06/30/2025 12:40 PM EDT
--- OUTSIDE RECORDS SUMMARY | 2025-06-30 12:39 | XMS_ITS | Patient Health Record ---
Author Organization [facility] Main Address [address] [place] [address] Care Team Providers Care Microsoft Dynamics Manager Architect Name Role Phone Jaquan Dowell MD Primary Care Provider Unavailab le Reason For Referral No Information Medications Medication SIG (Take, Route, Frequency, Duration) Notes Start Date End Date Status Lisinopril 5 MG Take 1 tablet by mouth daily ORA L ActiveLipitor 20 MG1 tablet by mouth daily at bedtime ORAL ActiveCymbalta 60 MGTake one by mouth daily ORAL02/01/2016 ActiveFerrous Sulfate 325 (65 Fe) MGone tablet TID ORAL08/19/2012 ActiveAtenolol 25 MGTake one by mouth daily ORAL ActiveB-12 1000 MCG1 tab QD ORALActiveCALTRATE 600+D PLUS 600-400 MG-UNIT TABStake three times daily*please review for potential update for e-prescription and drug interaction check*ActiveVitamin C 1000 MGdaily ORALActiveSymbicort 80-4.5 MCG/ACT2 puffs twice daily FKTQFCKWGJ95ActiveSpiriva HandiHaler 18 MCG2 puffs twice daily GDIXUYGFAZ58ActiveProAir HFA 108 (90 Base) MCG/ACT use every 4 hours THRGLQEAIR22ActivePlavix 75 MGTake one by mouth daily ORALActiveMagnesium Oxide 400 (240 Mg) MGTake one (1) tablet by mouth twice a day ORALActive Problems Problem Type SNOMED Code ICD Code Onset Dates Problem Status W/U Status Risk Notes Problem 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, 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, 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 Active confirmed ProblemIron deficiency anemia (60740484)Iron deficiency anemia, unspecified (D50.9)03/09/2013ctiveconfirmedProblemTesticular hypofunction (063505741) Testicular hypofunction (E29.1)11/02/2013ctiveconfirmedProblemSleep apnea (74116961)Sleep apnea, unspecified (G47.30)11/25/2013ctiveconfirmedProblem Hereditary disorder of nervous system (615100308)Hereditary and idiopathic neuropathy, unspecified (G60.9)12/03/2013ctiveconfirmedProblemAngina pectoris (569876128)Angina pectoris, unspecified (I20.9)11/09/2015ActiveconfirmedProblem Cardiomyopathy (41508600)Cardiomyopathy, unspecified (I42.9)08/27/2012ctive confirmedProblemHeart failure (52390085)Heart failure, unspecified (I50.9) 03/09/2014ctiveconfirmedProblemDilatation of aorta (83995182)Thoracic aortic ectasia (I77.810)12/11/2015ActiveconfirmedProblemCeliac disease (259879090) Celiac disease (K90.0)ActiveconfirmedProblemIntestinal malabsorption (082948005) Intestinal malabsorption, unspecified (K90.9)09/27/2013ctiveconfirmedProblem Hemoptysis (16571815)Hemoptysis (R04.2)12/20/2013ctiveconfirmedProblemShortness of breath (376503972)Shortness of breath (R06.02)11/09/2015Activeconfirmed ProblemFatigue (37132231)Other fatigue (R53.83)11/08/2013ctiveconfirmedProblem Solitary pulmonary nodule (716653152)Solitary pulmonary nodule (R91.1)12/30/2013 ActiveconfirmedProblemAbnormal results of cardiovascular function studies (479371647)Abnormal result of other cardiovascular function study (R94.39) 11/30/2015Activeconfirmed Plan Of Treatment No Information Insurance Providers Payer Name Payer Address Payer Phone Subscriber Number Group Number Insured Name Patient Relationship to Insured Coverage Start Date Coverage End Date [employer] [address] [address] [place], [place] [address] [id number], RobertSelf - patient is the insured Medical (General) History Surgical History Surgery Date(Month/Year) 3 finger amputation,hernia, Total Hip Ar throplasty, Past SurgHx Till:04/22/2014
--- OUTSIDE RECORDS SUMMARY | 2025-06-30 12:39 | XMS_ITS | Clinical Summary ---
Author Organization [facility] Address [address] [place] [address] Care Team Providers Care Cardiac Rn Name Role Phone Pauly Santacurz INTRUSION ANALYST Unavailable Mario Zayas MD Primary Care Provider [phone] Allergies Active AllergyReactionsCriticalityNoted DateCommentsGluten MealGI intoleranceLow 05/08/2022Isosorbide DjcbiwdHbbjojdxHsq16/14/2022 Medications MedicationSigDispense QuantityRefillsLast FilledStart DateEnd DateStatus albuterol HFA 90 mcg/act inhaler Inhale 2 puffs every 6 (six) hours if needed for wheezing or shortness of breath Active albuterol (5 MG/ML) 0.5% nebulizer solution Take 2.5 mg by nebulization every 4 (four) hours if needed for wheezing or shortness of breathActive ascorbic acid (Vitamin C) 1000 MG tablet Take 1,000 mg by mouth in the morning.Active aspirin 81 MG EC tablet Take 81 mg by mouth in the morning.07/25/2022ctive atorvastatin (Lipitor) 40 MG tablet Take 40 mg by mouth at bedtimeActive Trelegy Ellipta 100-62.5-25 MCG/ACT aerosol powder Inhale 1 puff in the morning.03/15/2022ctive ipratropium-albuterol (Duo-Neb) 0.5-2.5 mg/3 mL nebulizer solution Take 3 mL by nebulization in the morning and 3 mL at noon and 3 mL in the evening and 3 mL before bedtime.02/20/2022ctive isosorbide mononitrate ER (Imdur) 30 MG 24 hr tablet Take 30 mg by mouth Daily06/13/2022ctive lisinopril 5 MG tablet Take 5 mg by mouth in the morning.Active metoprolol succinate XL (Toprol-XL) 50 MG 24 hr tablet Take 50 mg by mouth in the morning and 50 mg before bedtime.Active nitroglycerin (Nitrostat) 0.[address] 0.4 mg under the tongue every 5 (five) minutes if needed for chest pain 07/25/2022ctive omeprazole (PriLOSEC) [address] capsule Take 40 mg by mouth in the morning.03/19/2022ctive Daliresp 500 MCG tablet Take 500 mcg by mouth in the morning.03/15/2022ctive theophylline ER (Uniphyl) 400 MG 24 hr tablet Take 400 mg by mouth in the morning and 400 mg before bedtime.01/16/2023ctive apixaban (Eliquis) 5 MG tablet Take 5 mg by mouth in the morning and 5 mg in the evening.06/04/2023ctive cholecalciferol (Vitamin D-3) 50 MCG (1999 UT) capsule 1 capsule 1 (one) time each day at the same timeActive ferrous sulfate 325 (65 Fe) MG EC tablet Take 65 mg by mouth in the morning. Take with meals.Active SUMAtriptan (Imitrex) 100 MG tablet Active zinc gluconate 50 MG tablet 1 (one) time each day at the same timeActive azithromycin (Zithromax) 250 MG tablet Take 250 mg by mouth DailyActive predniSONE (Deltasone) 20 MG tablet Take 20 mg by mouth DailyActive pregabalin (Lyrica) 150 MG capsule Indications:DDD (degenerative disc disease), lumbar,Lumbosacral radiculopathy Take 1 capsule (150 mg) by mouth in the morning and 1 capsule (150 mg) in the evening and 1 capsule(150 mg) before bedtime. 270 capsule 5Active dapagliflozin (Farxiga) 10 MG Take 10 mg by mouth/ctive meloxicam (Mobic) 15 MG tablet Take 15 mg by mouth DailyActive pantoprazole (ProtoNix) 40 MG EC tablet Take 40 mg by mouth Daily5Active spironolactone (Aldactone) 25 MG tablet Take 25 mg by mouth in the morning.506/6Active tiZANidine (Zanaflex) 4 MG tablet TAKE 2 TABLETS BY MOUTH AT BEDTIME FOR 30 DAYS5Active topiramate 50 MG tablet Take 1 tablet by mouth Daily5Active sodium chloride 0.9 % nebulizer solution Inhale 3 mL5Active Active Problems ProblemNoted DateDiagnosed XidjBgvgtmgshi97/14/2024DD (degenerative disc disease), kwaqnc6001/20/2024 Overview (01/20/2024): The patient is a 62 year old male that presents with low back pain that has been occurring for 15+ years and was diagnosed with degenerative disc disease. The patient also complains of radicular painand paresthesias that have been occurring for the [...] has had no benefit with gabapentin increase. Jcpanjkmhqq49/14/2024oronary artery disease involving coronary bypass graft of [place] heart without angina isounszi08/12/2022History of maze procedure 05/20/2022Hx of CABG05/20/2022aroxysmal atrial ejiquukqsjqv33/12/2022Thoracic aortic aneurysm without agcykyw4805/20/2022 Resolved Problems ProblemNoted DateDiagnosed DateResolved DateCentrilobular dpqohydez27/18/2025 2025 Overview (2025): Noted by [facility] last documented on 20241027 Hypertensive heart disease with heart Overview (2025): Noted by [facility] last documented on 20241001 Chronic eiqkwlhbdiivpeq71hronic systolic heart failure Erectile ajcxszmkcbb30ardiomyopathy, ivggwkea17lass 2 severe obesity due to excess calories with serious comorbidity and body mass index (BMI) of35.0 to 35.9 in adult08/16/2024 2025Pain in wristPure fzbtlcmsdscsphmkqkud79/09/2024 03/25/20251234Atjqsolpo53Mixed gjczxhfotdfkhp77 Primary wfilfynnvbim75Peripheral feulczmefhcjrn38/20/2023 06/27/2023eliac dcztrah00ervicalgia Headache in back of headhronic obstructive lung disease Sinus vlzgppnavlx79 Encounters DateTypeDepartmentCare SvibMlxhkickjlh75/16/2025 9:30 AM EDTOffice Visit [facility] [address] [facility] [address] [place] [address] Yuri Rowe DPM PVD (peripheral vascular disease); Other polyneuropathy; Pain due to onychomycosis of toenails of both feet; Paronychia, toe, left06/23/2025amboo flowsheet [facility] [address] [facility] [address] [place] [address] Yuri Rowe DPM 06/23/20257136Gmhnik44/08/2025 9:30 AM EDTOffice Visit [facility] [address] [place] [address] Tree Carmona, DO Otorrhea of right ear (Primary Dx); Dysfunction of right eustachian tube; Chronic optjbfvzltkppxk95/08/2025amboo flowsheet [facility] [address] [place] [address] Tree Carmona, 04/15/2025Travelfrom Last 3 Months Immunizations ImmunizationAdministration DatesNext DueInfluenza, High Dose Seasonal, Preservative Free05/23/2021Influenza, injectable, MDCK, preservative free, jtsprpizqnwk47/06/2023fizer Purple Cap SARS-CoV-2 Sccuiusclos17/17/2021, 09/20/2020Tdap110/14/2022 Family History Medical HistoryRelationNameCommentsHeart diseaseFatherCancerMotherHeart disease MotherHypertensionMotherDiabetesSiblingRelationNameStatusCommentsFatherMother SiblingAlive Social History Tobacco UseTypesPacks/DayYears UsedDateSmoking Tobacco: ObrjsoIruqaubyti007 09/08/1974 - 09/08/2009Smokeless Tobacco: Never Tobacco Cessation:Counseling Given: Yes Alcohol UseStandard Drinks/WeekCommentsNever0 (1 standard drink = 0.6 oz pure alcohol)ocassionallySex and Gender InformationValueDate RecordedSex Assigned at ClnrzMrdv37/16/2023 9:38 AM EDTLegal PusCilh2202/06/2023 9:13 AM EDTGender MrclkcxvIaef34/16/2023 9:38 AM EDTSexual OrientationNot on file Last Filed Vital Signs Vital SignReadingTime TakenCommentsBlood Nktwhdrf742/8204 10:42 AM EDT Xcpok2000 10:42 AM EDTTemperature--Respiratory Dxaq6253 9:50 AM EDTOxygen Dgxwicqndd54%12/27/2024 10:42 AM EDTInhaled Oxygen Concentration-- Jiytzr042 kg (250 lb)06/23/2025 9:50 AM GNKTsosyn367.8 cm (5' 10 )06/23/2025 9:50 AM EDTBody Mass Index35.8706/23/2025 9:50 AM EDT Plan of Treatment DateTypeDepartmentCare Team (Latest Contact Info)Trlvzlfqfly15/08/2026 10:50 AM ESTProcedure Visit [facility] [address] [facility] [address] [place] [address] Yuri Rowe, DPM [address] [facility] [address] [place] [address] 10/17/2025 10:15 AM ESTOffice Visit [facility] [address] [place] [address] Tree Carmona DO [address] [place] [address] Insurance * Guarantor: Nikunj Gutierrez EAccount TypeRelation to PatientDate of BirthPhone Billing AddressPersonal/PfmiupWzdq1960 [address] [place] [address] Care Teams Team MemberRelationshipSpecialtyStart DateEnd Mario Zayas MD [address] [place] [address] PCP - GeneralFamily Twapyigc56/16/25 Pauly Santacruz NP [address] [place] [address] Referring PhysicianFamily Medicine03/15/24
--- OUTSIDE RECORDS SUMMARY | 2025-06-30 12:40 | XMS_ITS | Encounter Summary ---
Author Organization [facility] Address [address] [place] [address] Care Team Providers Care Finished Goods Planner Name Role Phone Pauly Santacruz AGENT TICKETING GATE Unavailable Mario Zayas MD Primary Care Provider [phone] Encounter Details DateTypeDepartmentCare Team (Latest Contact Info)Tvdnlsrtuve09/16/2025Travel Social History Tobacco UseTypesPacks/DayYears UsedDateSmoking Tobacco: TaptvkXxfkfhurgv084 09/08/1974 - 09/08/2009Smokeless Tobacco: NeverAlcohol UseStandard Drinks/Week CommentsNever0 (1 standard drink = 0.6 oz pure alcohol)ocassionallySex and Gender InformationValueDate RecordedSex Assigned at GdpaeQbgh63/16/2023 9:38 AM EDTLegal BcoCnbv5902/06/2023 9:13 AM EDTGender QjdfjgsfKwbl84/16/2023 9:38 AM EDT Sexual OrientationNot on filedocumented as of this encounter Plan of Treatment DateTypeDepartmentCare Team (Latest Contact Info)Cpozmoqfvcu90/08/2026 10:50 AM ESTProcedure Visit [facility] [address] [facility] [address] [place] [address] Yuri Rowe DPM [address] [facility] [address] [place] [address] 10/17/2025 10:15 AM ESTOffice Visit [facility] [address] [address] Tree Carmona, DO [address] [place] [address] documented as of this encounter Visit Diagnoses Not on filedocumented in this encounter Care Teams Team MemberRelationshipSpecialtyStart DateEnd Date Mario Zayas MD [address] [place] [address] PCP - GeneralFamily Dlgnufzv86/16/25 Pauly Santacruz NP [address] [place] [address] Referring PhysicianFamily Medicine03/15/24documented as of this encounter
--- OUTSIDE RECORDS SUMMARY | 2025-06-30 12:40 | XMS_ITS | Patient Health Record ---
Author Organization Formerly [facility] Address [address] [place] [address] Support Name Relationship Address Phone Nikunj Causey Guarantor Unknown [phone] Reason For Referral No Information Problems Problem Type SNOMED Code ICD Code Onset Dates Problem Status W/U Status Risk Notes Problem Encntr screen for infections w sexl mode of transmiss (Z113)03/13/2017Active confirmed Plan Of Treatment No Information
--- OUTSIDE RECORDS SUMMARY | 2025-06-30 12:40 | XMS_ITS | Clinical Summary ---
Author Organization [facility] Address [address] [place] [address] Care Team Providers Care Software Developer Name Role Phone Mario Zayas MD Primary Care Provider [phone] Allergies No known active allergies Medications MedicationSigDispense QuantityRefillsLast FilledStart DateEnd DateStatus azithromycin (Zithromax) 250 mg tablet Take 250 mg by mouth in the morning.Active aspirin 81 mg chewable tablet Chew 81 mg in the morning.Active Trelegy Ellipta 200-62.5-25 mcg blister with device Inhale 1 puff in the morning.03/15/2022ctive albuterol (Ventolin HFA) 90 mcg/actuation inhaler Inhale 1 puff every 4 (four) hours if needed for wheezing or shortness of breath.Active ipratropium-albuteroL (Duo-Neb) 0.5-2.5 mg/3 mL nebulizer solution INHALE 1 vial via NEBULIZER FOUR TIMES DAILY NEEDEDActive predniSONE (Deltasone) 10 mg tablet Take 10 mg by mouth in the morning.06/19/2024ctive pregabalin (Lyrica) 150 mg capsule Take 150 mg by mouth 3 times a day.05/17/2024ctive meloxicam (Mobic) 15 mg tablet Take 15 mg by mouth in the morning.Active omeprazole (PriLOSEC) [address] capsule Take 40 mg by mouth before breakfast.Active theophylline ER (Uniphyl) 400 mg 24 hr tablet Take 400 mg by mouth in the morning.Active roflumilast (Daliresp) 500 mcg tablet Take 500 mcg by mouth in the morning.Active nitroglycerin (Nitrostat) 0.4 mg SL tablet DISSOLVE 1 TABLET UNDER THE TONGUE NEEDED FOR CHEST PAIN- MAY REPEAT EVERY 5 MINUTES IF NEEDED (MAX 3 DOSES.- IF NO RELIEF CALL 911)07/25/2022ctive cholecalciferol, vitamin D3, 50 mcg (2,000 unit) capsule Take 1 capsule by mouth in the morning.Active zinc gluconate 50 mg tablet 1 (one) time each day at the same time.Active apixaban (Eliquis) 5 mg tablet Indications:Paroxysmal atrial fibrillation (CMS/HCC)Take 1 tablet (5 mg) by mouth two times daily. 180 tablet /ctive atorvastatin (Lipitor) 80 mg tablet Indications:Hyperlipidemia, unspecified hyperlipidemia typeTake 1 tablet (80 mg) by mouth at bedtime. 90 tablet /ctive lisinopril 5 mg tablet Indications:Benign hypertensive heart disease 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 Take 1 tablet (5 mg) by mouth once daily as directed. 90 tablet tive spironolactone (Aldactone) 25 mg tablet Indications:Benign hypertensive heart disease 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 Take 1 tablet (25 mg) by mouth in the morning. 90 tablet ctive metoprolol succinate XL (Toprol-XL) 50 mg 24 hr tablet Indications:PalpitationsTaking 100mg in the AM, 50mg in the PM 270 tablet tive dapagliflozin propanediol (Farxiga) 10 mg Indications:Benign hypertensive heart disease 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 Take 1 tablet (10 mg) by mouth once daily as directed. 90 tablet //ctive sodium chloride 0.9 % nebulizer solution Take 3 mL by nebulization if needed.03/23/2025tive pantoprazole (ProtoNix) 40 mg EC tablet Take 40 mg by mouth in the morning.02/07/2025tive topiramate 50 mg tablet Take 1 tablet by mouth in the morning.5Active Active Problems ProblemNoted DateDiagnosed DateObstructive sleep apnea /21/2025enign hypertensive heart disease without congestive heart tdasxtc2605/29/2025Nausea 04/14/2025bnormal cardiovascular stress test04/05/20252503Qdqbpogtd76/09/2024eliac zxnmcqf6208/16/2024oronary artery disease involving rincon coronary artery of rincon heart without angina wppziknb97/09/2024Erectile hhsrndiodov41/09/2024ain in wrist08/16/2024eripheral vmpodbkzwsbqmk53/09/2024ardiomyopathy, ischemic 08/16/2024hronic systolic heart zsxrmpj8008/16/2024hronic anticoagulation 08/16/2024ure xtuznrlnkdkmtrahesdl14/09/2024lass 2 severe obesity due to excess calories with serious comorbidity and body mass index (BMI) of35.0 to 35.9 in adult08/16/2024Mixed uzbrgmydjzafqp68/17/2024Essential hypertension 06/24/2024DD (degenerative disc disease), oyavei8501/20/2024 Overview (08/16/2024): The patient is a 62 [...] has had no benefit with gabapentin increase. Ssthpadnpa76/14/1893Kuoyzkqhfdy79/14/2024History of maze zsusqkykv99/12/2022 Paroxysmal A-fib05/20/2022Thoracic aortic aneurysm without ikwrmxj3305/20/2022 Fcrntuabtwn76/01/2018Headache in back of head04/08/2018 Resolved Problems ProblemNoted DateDiagnosed DateResolved DateAbdominal aortic aneurysm (AAA) without /27/88629201/02/2025Left ventricular qljvjkxuxtt55/17/2024 04/18/2025 Encounters DateTypeDepartmentCare ZvuxRnhosqiywtr68/25/2025Telephone [facility] [address] [place] [address] Melita Ignacio MA 05/27/2025 11:00 AM EDTOffice Visit [facility] [address] [place] [facility] [place] [address] Dorinda Diaz MD Coronary artery disease involving rincon coronary artery of rincon heart without angina pectoris (Primary Dx); Cardiomyopathy, ischemic; Chronic systolic heart failure (CMS/HCC); Aneurysm of ascending aorta without rupture; Paroxysmal A-fib (CMS/HCC); History of maze procedure; Benign hypertensive heart disease 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; Pure hypercholesterolemia; Mixed hyperlipidemia; Class 2 severe obesity due to excess calories with serious comorbidity and body mass index (BMI) of35.0 to 35.9 in adult (CMS/HCC)04/21/2025 12:30 PM EDT - 04/21/2025 1:30 PM EDTSurgery [facility] [address] [place] [address] Adam Valle MD Coronary gyywocxdefk37/14/2025 10:42 AM EDT - 04/21/2025 4:08 PM EDTHospital Encounter [facility] [address] [place] [address] Adam Valle MD Abnormal cardiovascular stress test Discharge Disposition: Home or Self Care ()04/21/2025Results Follow-Up [facility] [address] [place] [address] Dorinda Diaz MD Cardiac djkceidnuhbxzlz28/14/3803Ykanhn01/11/0637Oltysc66/07/2025 10:00 AM EDT Office Visit [facility] [address] [place] [facility] [place] [address] Dorinda Diaz MD Abnormal cardiovascular stress test (Primary Dx); Chronic systolic heart failure (CMS/HCC); Cardiomyopathy, ischemic; Paroxysmal A-fib (CMS/HCC); History of maze procedure; Aneurysm of ascending aorta without rupture; Essential hypertension; Pure hypercholesterolemia; Class 2 severe obesity due to excess calories with serious comorbidity and body mass index (BMI) of35.0 to 35.9 in adult ([facility])04/12/2025Telephone [facility] [address] [place] [address] Tari Nevarez MA 04/08/2025Refill [facility] [address] [place] [address] Danni Vázquez MA Benign hypertensive heart disease without congestive heart vbabmuz5304/05/2025 Orders Only [address] [phone] Danni Vázquez MA Abnormal cardiovascular stress test (Primary Dx)04/02/2025Results Follow-Up [facility] [address] [place] [phone] Dorinda Diaz MD Lexiscan Stress Myocardial Perfusion Imagingfrom Last 3 Months Family History Medical HistoryRelationNameCommentsCoronary artery diseaseFatherCoronary artery diseaseMotherRelationNameStatusCommentsFatherDeceasedMotherDeceasedSisterAlive Social History Tobacco UseTypesPacks/DayYears UsedDateSmoking Tobacco: FormerCigarettes Smokeless Tobacco: Never Tobacco Cessation:Counseling Given: Not Answered Alcohol UseStandard Drinks/WeekCommentsYes0 (1 standard drink = 0.6 oz pure alcohol)occasionalSex and Gender InformationValueDate RecordedSex Assigned at IcsbiRupj55/05/2025 3:26 PM EDTLegal BwdHtzc70/15/2024 2:46 PM ESTGender PywicyjgLijv05/05/2025 3:26 PM EDTSexual OrientationHeterosexual or Straight 04/12/2025 3:26 PM EDT Last Filed Vital Signs Vital SignReadingTime TakenCommentsBlood Btrqzuog83/56005/27/2025 11:01 AM EDT Ydvew7186/19/2025 11:01 AM EDTTemperature--Respiratory Apjs7523/ 3:45 PM EDTOxygen Ohwgdjvokg90%05/27/2025 11:01 AM EDT3 lpm o2 via n/cInhaled Oxygen Concentration--Xvdvvs435 kg (237 lb)05/27/2025 11:01 AM QGSFrfneh711.3 cm (5' 9 )05/27/2025 11:01 AM EDTBody Mass Qcgpa016105/27/2025 11:01 AM EDT Plan of Treatment Health MaintenanceDue DateLast DoneCommentsCT Vxegjxjmbweo1960Colonoscopy 1960Colorectal Cancer Tkgaftzcg1960FIT-DNA1960FIT1960 FOBT1960Medicare Annual Wellness (AWV)1960Medicare Initial Physical (IPPE)1960 2076Pxuzewnogrgki1960Depression Qqcbkvadh02/18/1972 Pneumococcal Vaccine: 50+ Years (1 of 2 - PCV)1979Zoster Vaccines (1 of 2) 2010Fall Risk Rdgsvfanb70/18/2025COVID-19 Vaccine (3 - season) 502/, 09/20/2020Influenza Vaccine (#1)/02/2023, 05/23/2021dult Tdrfdxw99/02/2023HIB VaccinesAged OutNo longer eligible based on patient's age to complete this topicHPV VaccinesAged OutNo longer eligible based on patient's age to complete this topicIPV VaccinesAged OutNo longer eligible based on patient's age to complete this topicMeningococcal B VaccineAged OutNo longer eligible based on patient's age to complete this topicMeningococcal VaccineAged OutNo longer eligible based on patient's age to complete this topicRotavirus VaccinesAged OutNo longer eligible based on patient's age to complete this topic Procedures Procedure NamePriorityDate/TimeAssociated DiagnosisCommentsINSTANT WAVE FREE RATIO (IFR)Fpvinvs0704/21/2025 1:55 PM EDT Abnormal cardiovascular stress test CORONARY BYPASS GRAFT SLGXUQginalw68/14/2025 1:55 PM EDT Abnormal cardiovascular stress test CORONARY IRFLWRIEXMRWbsvnvl94/14/2025 1:55 PM EDT Abnormal cardiovascular stress test ACTIVATED CLOTTING MNGHKlcycpc47/14/2025 1:45 PM EDT ECG 12-AIJBIbkjqcw66/14/2025 12:25 PM EDT from Last 3 Months Results * CORONARY ANGIOGRAPHY, CORONARY BYPASS GRAFT STUDY, INSTANT WAVE FREE RATIO (IFR) (04/21/2025 1:55 PM EDT)Anatomical RegionLateralityModalityOtherSpecimen (Source)Anatomical Location / LateralityCollection Method / VolumeCollection TimeReceived Time Narrative 04/21/2025 2:11 PM EDT PROCEDURE PHYSICIAN: [...] cardiac catheterization lab in a fasting state. ??Informed written consent was obtained. ??Time-out was performed. he was prepped and draped in usual sterile fashion and was given Versed and fentanyl for sedation. ?? 1% lidocaine was infiltrated over the left radial artery. ??A 6-Gabonese sheath was placed in left radial artery. ?? Radial anti-vasospasm cocktail of verapamil 2.5 mg was administered through the sheath. ??All catheter exchanges were made over the Johnson guidewire. ?? Left heart catheterization, ROLDAN and coronary angiography was performed with an IM, JL5 and a JR4 . At this time, it was apparent that the LAD had intermediate stenosis. ?? Heparin anticoagulation was used for the PCI procedure. ??ACT was maintained at >250 seconds. A 6 Gabonese XB4 was engaged to the Lmain. A BMW guidewire was placed in the distal circumflex and an Omniwire in the LAD after normalization. ??After pressure determinations, all equipment, catheters and wires were removed. ??The sheath was removed and a pressure band was applied to obtain hemostasis. Specimens Removed: None Complications: None Hemodynamic Data: ?? LV: 94/10 mmHg Aorta: 94/63/72 mmHg Coronary Angiography: Left main: Normal LAD: The proximal vessel is diffusely atherosclerotic and there appears to be a 40-50% stenosis. ??However, the iFR was normal at 1.0. LCX: This vessel is ectatic throughout its' course. ??It is dominant providing the sole posterior descending branch to the inferior wall. No stenoses seen. RCA: This vessel is non-dominant and free of stenosis. Study Details Abnormal cardiovascular stress test [R94.39] Authorizing ProviderResult TypeResult StatusDorinda Murguiaoury [facility] CARDIAC CATH PROCEDURESFinal Result * (ABNORMAL) Activated clotting time (04/21/2025 1:45 PM EDT)ComponentValueRef RangeTest MethodAnalysis TimePerformed AtPathologist SignatureActivated Clotting Kmsd956(H)82 - 152 s004/21/2025 1:49 PM [facility] ([facility]) Specimen (Source)Anatomical Location / LateralityCollection Method / Volume Collection TimeReceived TimeBloodVenous blood specimen / Awvsmbe3504/21/2025 1:45 PM EDT04/21/2025 1:49 PM EDT Narrative Authorizing ProviderResult TypeResult StatusChyael YEPEZ POINT OF CARE TEST DOCKED DEVICE UNSOLICITED RESULTSFinal ResultPerforming Organization AddressCity/State/ZIP CodePhone Number [facility] ([facility]) [address] [place], [place] [id number] * Electrocardiogram, 12-lead (04/21/2025 12:25 PM EDT)ComponentValueRef Range Test MethodAnalysis TimePerformed AtPathologist SignatureVentricular Hchf79AMM GE MUSEAtrial Raqt56XGQVO MUSEPR Foiljxlz866biWS MUSEQRS TOCXHQYF53gqCK MUSEQT Grvokfwe476trTW MUSEQTC CALCULATION(BAZETT)411msGE MUSEP Afls51dyitnmqVD MUSE R-Uufy57ndcxvwgPQ MUSET Wave Lbox334kywjivcMT MUSESpecimen (Source)Anatomical Location / LateralityCollection Method / VolumeCollection TimeReceived Time 04/21/2025 12:03 PM EDT04/21/2025 1:28 PM EDT Impressions GE MUSE - [...] Joseph Soriano (70) on 04/21/2025 1:28:29 PM Authorizing ProviderResult TypeResult StatusSahumberto SINGLETARY ORDERABLESFinal ResultPerforming OrganizationAddressCity/State/ZIP CodePhone Number GE MUSE from Last 3 Months Insurance Care Teams Team MemberRelationshipSpecialtyStart Date Mario Zayas MD [address] [facility] [address] [address] PCP - GeneralFamily Medicine02/09/25
--- OUTSIDE RECORDS SUMMARY | 2025-06-30 12:40 | XMS_ITS | Clinical Summary ---
Author Organization [facility] Address [address] [place] [address] Phone Care Team Providers Care Accounting/Finance Tutor Name Role Phone Unavailable Primary Care Provider Unavailabl e Social History Tobacco UseTypesPacks/DayYears UsedDateSmoking Tobacco: Never AssessedSex and Gender InformationValueDate RecordedSex Assigned at BirthNot on fileLegal Sex Male08/03/2022 11:25 AM ESTGender IdentityNot on fileSexual OrientationNot on file Last Filed Vital Signs Vital SignReadingTime TakenCommentsBlood Croagawq889/8609 2:58 PM EDT Awroh3583 2:58 PM TRQFfzayssrhhx05.8 ??C (98.2 ??F)05/29/2022 2:58 PM EDTRespiratory Exik8675 2:58 PM EDTOxygen Lrzbvlolzg15%05/29/2022 2:58 PM EDTInhaled Oxygen Concentration--Tuikus159 kg (239 lb 7 oz)05/29/2022 2:58 PM JKCVhuaqb314 cm (5' 7.32 )05/29/2022 2:58 PM EDTBody Mass Index37.1509 2:58 PM EDT Plan of Treatment Not on file
--- OUTSIDE RECORDS SUMMARY | 2025-06-30 12:40 | XMS_ITS | Encounter Summary ---
Author Organization [facility] Address [address] [place] [address] Care Team Providers Care Photographic Colorist Name Role Phone Pauly Santacruz MANAGEMENT PROFESSOR Unavailable Mario Zayas MD Primary Care Provider [phone] Encounter Details DateTypeDepartmentCare Team (Latest Contact Info)Bxmzdjcxmjs99/16/2025amboo flowsheet [facility] [address] [place] [phone] Yuri Rowe DPM [address] [facility] [address] [place] [address] Social History Tobacco UseTypesPacks/DayYears UsedDateSmoking Tobacco: TnyurdJqregrxeuy548 09/08/1974 - 09/08/2009Smokeless Tobacco: NeverAlcohol UseStandard Drinks/Week CommentsNever0 (1 standard drink = 0.6 oz pure alcohol)ocassionallySex and Gender InformationValueDate RecordedSex Assigned at PbxknEzgn27/16/2023 9:38 AM EDTLegal WbfDpob2202/06/2023 9:13 AM EDTGender HqqmwpkkEdcl91/16/2023 9:38 AM EDT Sexual OrientationNot on filedocumented as of this encounter Plan of Treatment DateTypeDepartmentCare Team (Latest Contact Info)Gavfmamwmld66/08/2026 10:50 AM ESTProcedure Visit [facility] [address] [place] [address] Yuri Rowe DPM [address] [address] 10/17/2025 10:15 AM ESTOffice Visit [facility] [address] [place] [address] Tree Carmona DO [address] [place] [address] documented as of this encounter Visit Diagnoses Not on filedocumented in this encounter Care Teams Team MemberRelationshipSpecialtyStart DateEnd Mario Zayas MD [address] [place] [address] PCP - GeneralFamily Zzieivht30/16/25 Pauly Santacruz NP [address] [place] [address] Referring PhysicianFamily Medicine03/15/24documented as of this encounter
--- OUTSIDE RECORDS SUMMARY | 2025-06-30 12:40 | XMS_ITS | Clinical Summary ---
Author Organization [email or web address] tem Address [id number] [address] [place] [address] Care Team Providers Care Manager Life Insurance Name Role Phone Pauly Santacruz WAIST PRESSER-SCAFFOLD BUILDER Primary Care Provider [phone] Allergies Active AllergyReactionsCriticalityNoted CfybEjxilhhvFtxmie03/31/2022Isosorbide PzewxhieukiRtbnhfjt25/14/2022 Medications MedicationSigDispense QuantityRefillsLast FilledStart DateEnd DateStatus omeprazole (PriLOSEC) 40 mg capsule Take 1 capsule (40 mg total) by mouth in the morning.03/19/2022ctive gabapentin (NEURONTIN) 600 mg tablet Take 1 tablet (600 mg total) by mouth 3 (three) times a day.03/30/2022ctive DALIRESP 500 mcg tablet Take 1 tablet (500 mcg total) by mouth in the morning.03/15/2022ctive fljvkiikdgz-irbeecpeh-aewtkczu (TRELEGY ELLIPTA) 200-62.5-25 mcg blister with device 1 puff in the morning.03/15/2022ctive ipratropium-albuteroL (DUONEB) 0.5 mg-3 mg(2.5 mg base)/3 mL nebulizer 02/20/2022ctive ascorbic acid, vitamin C, (VITAMIN C) 1000 mg tablet Take 1 tablet (1,000 mg total) by mouth in the morning.Active naproxen-pseudoephedrine 220-120 mg tablet extended release 12 hr Take by mouth.Active albuterol (PROVENTIL HFA;VENTOLIN HFA) 90 mcg/actuation inhaler Inhale 2 puffs every 6 (six) hours as needed for wheezing.Active albuterol (PROVENTIL) 5 mg/mL nebulizer solution Inhale 0.5 mL (2.5 mg total) by nebulization every 4 (four) hours as needed for wheezing.Active aspirin 81 mg Indications:Coronary artery disease involving coronary bypass graft of gulkana heart without angina pectoris,Paroxysmal atrial fibrillation (CMS-HCC),Aneurysm of ascending aorta without rupture,Hx of CABG,History of maze procedureTake 1 tablet (81 mg total) by mouth in the morning. 90 tablet ctive oxygen Inhale continuously.Active cyanocobalamin (vitamin B-12) 1000 MCG tablet Take 1 tablet (1,000 mcg total) by mouth in the morning.Active cholecalciferol 1,000 units tablet Take 1 tablet (1,000 Units total) by mouth in the morning.Active ferrous sulfate 325 (65 FE) mg EC tablet Take 65 mg by mouth daily with breakfast.Active TESTOSTERONE, BULK, MISC by miscellaneous route. 100 mg 1 tablet dailyActive zinc gluconate 50 mg tablet Take 1 tablet (50 mg total) by mouth in the morning.Active metoprolol succinate XL (TOPROL XL) 50 mg 24 hr tablet Indications:Coronary artery disease involving coronary bypass graft of gulkana heart without angina pectoris,Hx of CABG,Paroxysmal atrial fibrillation (CMS-HCC),Aneurysm of ascending aorta without rupture,History of maze procedure Take 100 mg in the morning and 50 mg at night 270 tablet ctive theophylline (BRYAN-24) 400 MG 24 hr capsule Take 1 capsule (400 mg total) by mouth in the morning.Active atorvastatin (LIPITOR) 40 mg tablet Indications:Coronary artery disease involving coronary bypass graft of gulkana heart without angina pectoris,Hx of CABG,Paroxysmal atrial fibrillation (CMS-HCC),Aneurysm of ascending aorta without rupture,History of maze procedure Take 1 tablet (40 mg total) by mouth in the morning. 90 tablet ctive apixaban (ELIQUIS) 5 mg tablet Take 1 tablet (5 mg total) by mouth in the morning and 1 tablet (5 mg total) before bedtime. 180 tablet ctive nitroglycerin (NITROSTAT) 0.4 MG SL tablet Indications:Coronary artery disease involving coronary bypass graft of gulkana heart without angina pectoris,Paroxysmal atrial fibrillation (CMS-HCC),Aneurysm of ascending aorta without rupture,Hx of CABG,History of maze procedureDISSOLVE 1 TABLET UNDER THE TONGUE NEEDED FOR CHEST PAIN- MAY REPEAT EVERY 5 MINUTES IF NEEDED (MAX 3 DOSES.- IF NO RELIEF CALL 911) 25 tablet 4Active lisinopriL (PRINIVIL,ZESTRIL) 5 mg tablet Indications:Coronary artery disease involving coronary bypass graft of gulkana heart without angina pectoris,Hx of CABG,Paroxysmal atrial fibrillation (CMS-HCC),Aneurysm of ascending aorta without rupture,History of maze procedure Take 1 tablet (5 mg total) by mouth in the morning. FINAL REFILL UNTIL LABS COMPLETED. 90 tablet 5Active Active Problems ProblemNoted DateDiagnosed DateMixed aowanjwegnfexd60/17/2024rimary /17/2024Left ventricular mhpwxbmvyub06/17/2024oronary artery disease involving coronary bypass graft of gulkana heart without angina pectoris 05/20/2022aroxysmal atrial ynoxynbssmgp62/12/2022Thoracic aortic aneurysm without wgcqibr9005/20/2022Hx of CABG05/20/2022History of maze kwjpjipaz63/12/2022 Family History Medical HistoryRelationNameCommentsHeart diseaseFatherBreast cancerMotherCancer MotherRelationNameStatusCommentsFatherDeceasedMaternal GrandfatherDeceased Maternal GrandmotherDeceasedMotherDeceasedPaternal GrandfatherDeceasedPaternal GrandmotherDeceased Social History Tobacco UseTypesPacks/DayYears UsedDateSmoking Tobacco: FormerSmokeless Tobacco: Never Tobacco Cessation:Counseling Given: Not Answered Alcohol UseStandard Drinks/WeekCommentsNot Currently0 (1 standard drink = 0.6 oz pure alcohol)ocassionalHunger ScreeningAnswerDate RecordedWithin the past 12 months we worried whether our food would run out before we got money to buy more.Never True06/24/2024Within the past 12 months the food we bought just didn't last and we didn't have money to get more.Never True06/24/2024Sex and Gender InformationValueDate RecordedSex Assigned at BirthNot on fileLegal Sex Male03/22/2022 3:47 PM EDTGender IdentityNot on fileSexual OrientationNot on file Last Filed Vital Signs Vital SignReadingTime TakenCommentsBlood Xuiwpgqn465/6206/24/2024 1:52 PM EDT Tkxai269706/24/2024 1:52 PM EDTTemperature--Respiratory Rate--Oxygen Flafugrltt29% 06/24/2024 1:52 PM EDTInhaled Oxygen Concentration--Nivfdl407.1 kg (245 lb) 06/24/2024 1:52 PM RIYTmyzcu933.7 cm (5' 7.99 )06/24/2024 1:52 PM EDTBody Mass Index37.261 1:52 PM EDT Plan of Treatment Health MaintenanceDue DateLast DoneCommentsDepression Aldbxkjjc06/18/1972Zoster (Shingles) Vaccine (1 of 2)2010Fall Risk Lennqjftp52/18/2025Influenza Zazllsd56/02/2023, 05/23/2021dult BMI Zffppmktu30 Tobacco Trqejaolb77Statin Use: Pacxifgxopfbzu71/30/2026 10/07/2024DTaP,Tdap and Td Vaccines (2 - Td or Tdap) Medical Devices Not on file Insurance Care Teams Team MemberRelationshipSpecialtyStart DateEnd Date Pauly Santacruz APRN-CHAO [address] [facility] CENTERMedardoCAPITAN, [place] [id number] PCP - GeneralFamily Lbntdigi78/17/24
--- OUTSIDE RECORDS SUMMARY | 2025-06-30 12:41 | XMS_ITS | Patient Health Record ---
Author Organization [facility] vices Address [address] [place] [id number] Care Team Providers [facility] [place] Name Role Phone Pauly Santacruz Primary Care Provider Aditya Casasyssa Unavailable [phone] Allergies No Known Allergies Results Component Value Reference Range Notes LIPID PANEL WITH REFLEX TO D IRECT LDL Reviewed date:09/18/2024 12:27:51 PM Interpretation: Performing Lab: Notes/Report: CHOLESTEROL 163 100-199 mg/dL YKADSHBZVMZQR43361-375 mg/dL VLDL-CHOL, CALCULATED 33<30 mg/dLHDL-CHOL42>=40 mg/dL LDL-CHOL, CALCULATED 88<130 mg/dL ADULT LDL CHOLESTEROL CLASSIFICATION <100mg/dL Optimal 100-129 Near/Above Optimal 130-159mg/dL Borderline High >160mg/dL High Risk Desirable range <100 mg/dL for patients with CHD or diabetes and <70 mg/dL for diabetic patients with known heart disease. Direct LDL is recommended for patients with triglycerides >400. LDL/HDL2.1<5.0 LDL/HDL RATIO MALE FEMALE below average risk <2.3 <2.3 average risk <5.0 <4.1 moderate risk <7.1 <5.6 high risk >7.1 >5.6 CHOL/HDL3.92.0-4.5AMYLASE Reviewed date:09/18/2024 12:27:51 PM Interpretation: Performing Lab: Notes/Report:[id number] U/LANTI NUCLEAR AB REFLEX TITER n ABID Reviewed date:09/18/2024 12:27:51 PM Interpretation: Performing Lab: Notes/Report:ANTI NUCLEAR ANTIBODIESPOSITIVENegative HARRIETT by Multiplex Flow Immunoassay is intended for the qualitative screening of specific antinuclear antibodies (HARRIETT), the quantitative detection of antibody to dsDNA, and the semi-quantitative detection of ten (10) separate antibody assays (Chromatin, Ribosomal P, SS-A, SS-B, Sm, SmRNP, FOOD SERVICES COORDINATOR, Scl-70, Faustina-1, and Centromere B) in human serum. CBC W/AUTO DIFF Reviewed date:09/18/2024 12:27:51 PM Interpretation: Performing Lab: Notes/Report:WBC8.13.6-11.0 THDS/CMMRBC4.224.40-6.10 MILL/VQSJHZ81.713.0-18.0 G/DLHCT41.539-52 %WJX3526-600 fLMCH32.526.0-32.0 nnSAJU00.032.0-35.0 g/dlRDW12.7 11.2-14.8 %JVLOADJZ627187-092 THOUS/YMGFILGLSIHPPY29.545-75 %EDEFMNTGPWP91.720- 45 %MONOCYTES3.60-13 %EOSINOPHILS0.20-5 %BASOPHILS0.60-2 %IMMATURE GRAN1.40-2 % ABS NEUTROPHILS6.761.9-8.0 K/uLABS LYMPHOCYTES0.870.9-5.2 K/uLABS MONOCYTES0.29 0.1-1.0 K/uLABS EOSINOPHILS0.020.0-0.80 K/uLABS BASOPHILS0.050.0-0.2 K/uLABS IMMATURE GRAN0.110.00-0.06 K/uL UNLESS OTHERWISE INDICATED, ALL TESTING PERFORMED AT: [employer] [address] [place] [address] PARTS BACK COUNTER MAN: Marlena ESPINOZAIA NUMBER [id number] CAP ACCREDITATION AUID [id number] COMPREHENSIVE METABOLIC PANEL (AMA) Reviewed date:09/18/2024 12:27:51 PM Interpretation: Performing Lab: Notes/Report:WGXOVMB19120-356 mg/eKKLVOAJ597521-980 mmol/LPOTASSIUM4.53.5-5.4 mmol/MRVXWSURI36997-007 mmol/KPL57144-62 mmol/HTSI379-97 mg/dL CREATININE, BLOOD 0.860.67-1.30 mg/dLeGFR (2020 CKD-EPI)97>59 mL/min/1.22w8XYIJIZT2.88.6- 10.5 mg/Swetha. PROTEIN6.46.0-8.3 g/dLALBUMIN4.33.5-5.2 g/dLGLOBULIN2.11.8-3.8 g/dL A/G RATIO2.01.0-2.5 RATIOALK LTXA5496-244 U/GLUC-XBFM146-24 U/KLVL-JCGU380-18 U/LT. BILIRUBIN0.5<1.3 mg/dLANA/SEBASTIAN AB ID PANEL Reviewed date:09/18/2024 12:27:51 PM Interpretation: Performing Lab: Notes/Report:DNA DS ANTIBODY9<10 IU/mL Interpretation of dsDNA Antibody results: < or = 4: Negative 5 - 9: Indeterminate > or =10: Positive FLORES (SM) ANTIBODY0.4<1.0 AICHROMATIN AB<0.2<1.0 AISJOGREN'S SS-A ANTIBODY<0.2 <1.0 AISJOGREN'S SS-B ANTIBODY<0.2<1.0 AIRNP IGG<0.2<1.0 AISCLERODERMA AB<0.2 <1.0 AIJO-1 ANTIBODY<0.2<1.0 AICENTROMERE B ANTIBODY<0.2<1.0 AIRIBOSOMAL P PROTEIN AB0.4<1.0 AIANA TITER Reviewed date:09/18/2024 12:27:51 PM Interpretation: Performing Lab: Notes/Report:HARRIETT PATTERN (REPORTED TITER)<1:80<1:80 TITER Anti-Nuclear Antibodies by IFA negative for homogeneous, speckled, nucleolar and centromere patterns. Reason For Referral No Information Medications Medication SIG (Take, Route, Frequency, Duration) Notes Start Date End Date Status Omeprazole 40 MG 1 capsule 30 minutes before morning meal Orally Once a day; Duration: 90 days ActiveMetoprolol Succinate ER 100 MG1 tablet Orally two times a day , 2 tab AM, 2 tabsnightActiveZinc 50 MG1 tablet Orally Once a dayActiveIpratropium-Albuterol 0.5-2.5 (3) MG/3ML3 mL as needed Inhalation every 6 hrsActiveAspirin 81 MG1 tablet Orally Once a dayActiveOndansetron 8 MG1 tablet on the tongue and allow to dissolve as needed Orally Once a day; Duration: 30 days5Active predniSONE 10 MG1 tablet Orally Once a dayActiveSodium Chloride (Inhalant)3 ml via nebulizer 2x dailyActivePregabalin ERActiveEliquis 5 MGas directed Orally ActiveAzithromycin 250 MGas directed OrallyActiveAtorvastatin Calcium 40 MG1 tablet Orally Once a dayActiveVitamin C 1000 MG1 tablet Orally Once a dayActive Meloxicam 15 MG1 tablet Orally Once a day PT NEEDS APPT; Duration: 30 daysActive Theophylline ER 400 MG1 tablet Orally Once a dayActiveVitamin D 50 MCG (2000 UT) 1 tablet Orally Once a dayActiveIron 65 MG1 tablet Orally Once a dayNot-Taking Roflumilast 500 MCG1 tablet Orally Once a dayActiveVentolin HFA 90 MCG/ACT2 puff as needed Inhalation every 4 hrsActiveVitamin B12 1000 MCG1 tablet Orally Once a dayNot-TakingNitroglycerin 0.4 MGas directed SublingualActivePregabalin 150 MG1 capsule Oral three times daily; Duration: 30 daysActiveTrelegy Ellipta 100-62.5-25 MCG/INH1 puff Inhalation Once a dayActiveLisinopril 5 MG1 tablet Orally Once a day; Duration: 90 DaysActiveSUMAtriptan Succinate 100 MG1 tablet at least 2 hours between doses as needed Orally Daily; Duration: 5 days 09/25/2023Not-TakingDuoNeb 0.5-2.5 (3) MG/3ML3 ml as needed Inhalation every 6 hrsNot-Taking Immunizations Vaccine Route Administration Date Status Comme nts *Artbxupbj-Dmtalzizt-Crmos te IM Intramuscular 08/13/2023 Administered *Tdap (Adacel)-PrivateIM Dsiatgbjqoxly67/06/2023dministered Social History Tobacco Use: Social History Observation Description Date Details (start date - stop date) Former Smoker 09/08/1976 - 09/08/2009 Sex Assigned At : Social History Observation Description Sex Assigned At Male Household Question Answer Notes Number of adults in household: 2 Tobacco Use/Smoking Question Answer Notes Tobacco use: former smoker patient enter ed data When did you start smoking? 09/08/1976 deann mckenzieient entered data When did you stop smoking? 09/08/2009 juancarlos so entered data How long has it been since you last smoked? 5-10 years patient entered data Alcohol Screen (Audit-C) Question Answer Notes Did you have a drink containing alcohol in the p ast year? 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 Check all that apply I choose not to answer this question Has lack of transportation kept you from medical appointments, meetings, work or from getting things needed for daily living?NoHow stressed are you? Stress is when someone feels tense, nervous, anxious, or can't sleep at nightbecause their mind is troubledNot at allpatient entered dataIn the past year have you spent more than 2 nights in a row in a intermediate, care home, prison center, orjuvenile correctional facility?Nopatient entered dataAre you a refugee?Nopatient entered dataWhat country are you from?[place]patient entered dataDo you feel physically and emotionally safe where you currently live?Yespatient entered dataIn the past year, have you been afraid of your partner or ex-partner?Nopatient entered dataPRAPARE Score:3 Problems Problem Type SNOMED Code ICD Code Onset Dates Problem Status W/U Status Risk Notes Problem Celiac disease (564738568) Celiac disease (K90.0) ActiveconfirmedDx for electronics computer mechanic referral only.ProblemNausea (462551678)Nausea (R11.0)ActiveconfirmedProblemAtherosclerotic heart disease of [place] coronary artery without angina pectoris (355906078086358)Coronary artery disease with history of coronary revascularization (I25.10)ActiveconfirmedProblemErectile dysfunction (disorder) (443703731)Erectile dysfunction, unspecified erectile dysfunction type (N52.9)ActiveconfirmedDx for lab work only.ProblemArthritis (9932795)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)ActiveconfirmedProblemNeuropathy (129889634) Neuropathy (G62.9)ActiveconfirmedProblemArthritis (2305821)Arthritis (M19.90) ActiveconfirmedProblemInflammatory and toxic neuropathy (897493143)Peripheral polyneuropathy (G62.9)ActiveconfirmedProblemPain in wrist (99504875)Wrist arthralgia (M25.539)Activeconfirmed Vital Signs Heart Rate 78 /min 09/15/2024 Agustín Laws 09/15/2024 11:13:58 AM EST > Temperature 97.4 degrees Fahrenheit 09/15/2024 Randy Hooks 09/15/2024 11:13:58 AM EST > Respiratory Rate 18 /min 09/15/2024 Randy Laws 09/15/2024 11:13:58 AM EST > Blood pressure diastolic 82 mm Hg 09/15/2024 Randy Diaz 09/15/2024 11:13:58 AM EST > Oximetry 96 [...] Location Date Provider Diagnosis Main [address], [place] [id number] 09/15/2024 Charis Yessenia Nausea R11.0 ; Rayo k stools R19.5 ; Screening for cardiovascular condition Z13.6 ; Obesity, Class II, BMI 35-39.9 E66.812 and BMI 37.0-37.9, adult Z68.37 Main [address], [place] [id number] 09/18/2024 Charis Yessenia [id number] [place] [id number] [facility] Assessments Encounter Date Diagnosis (ICD Code) [...] pt is not currently established w/ one. 09/15/2024Dark stools (ICD-10 - R19.5) Pt reports dark stools, unsure if they are bloody. No pain w/ defecation. CBC ordered to check for blood loss, will consider GI referral pending lab results. 05/05/2025rthritis (ICD-10 - M19.90)09/15/2024Screening for cardiovascular condition (ICD-10 - Z13.6)09/15/2024Obesity, Class II, BMI 35-39.9 (ICD-10 - E66.812)5BMI 37.0-37.9, adult (ICD-10 - Z68.37) Plan Of Treatment No Information Insurance Providers Payer Name Payer Address Payer Phone Subscriber Number Group Number Insured Name Patient Relationship to Insured Coverage Start Date Coverage End Date [employer] [address] [address] [place] [address] [id number] Aliya Causeyelf - patient is the [id number] 2019 Medical (General) History Medical History History ICD Code GERD (gastroesophageal reflux disease) K 21.9 COPD (chronic obstructive pulmonary dise ase) J44.9 Arthritis Chronic back painM54.9Oxygen fmfyzpwrmJ65.81Atrial kzdapikhibbm357.31Coronary artery disease with history of coronary dslnmelqsmcytsuyqO44.10Peripheral ucprfdisocP69.9Celiac hqneuyaH10.0Surgical History Surgery Date(Month/Year) amputation right hand finger 1978 hernia 1989 skin cancer removal on back 1989 left hip replacement 2005 heart surgery - CABG, ablation 2015 right hip replaced 2016 right shoulder 2017 lasic surgery tubes in right ear
--- OUTSIDE RECORDS SUMMARY | 2025-06-30 12:41 | XMS_ITS | CCD ---
Author Organization [facility] Care Team Providers Care Manager Cleaning Name Role Phone CLARKE, MELLISA STOHLER Unavailable [...] Consulting Unavailable DEL REAL, KACIE Consulting Unavailable [facility] Primary Care Unavailable SAMSA ., DARNELL Attending Unavailable SAMSA ., DARNELL Consulting Unavailable SAMSA ., DARNELL Admitting Unavailable [facility] Primary Care Unavailable DR ALEYDA DYER Consulting Unavailable SAMSA ., DARNELL Attending Unavailable SAMSA ., DARNELL Admitting Unavailable SAMSA ., DARNELL Consulting Unavailable Noam PULP SCREEN OPERATOR, [facility] Unavailable EMELY CANTU Referring Unavailable DEL REAL, KACIE L Primary Care Unavailable GILLIAN TAYLOR Attending Unavailable DEL REAL, KACIE L Referring Unavailable RISA MCNULTY Primary Care Unavailable Kacie Del Real MD Primary Care Provider Noam TELEPHONE SALES REPRESENTATIVE-LOADING DOCK HAND, [facility] Primary Care Provider [phone] Darius TELEPHONE SALES REPRESENTATIVE-LOADING DOCK HAND-Danni Petit Attending Provider Mario Zayas MD Primary Care Provider [phone] Mario Zayas MD Attending Provider [phone] Mario Zayas Attending Unavailable Mario Zayas Admitting Unavailable Noam , [facility] Unavailable Mario Zayas MD Primary Care Provider [phone] BENNY FUENTES Attending Unavailable BENNY FUENTES Attending Unavailable JUAN FLORES Referring Unavailable BENNY FUENTES Referring Unavailable JUAN FLORES Admitting Unavailable JUAN FLORES Attending Unavailable BENNY FUENTES Attending Unavailable BENNY FUENTES Attending Unavailable LINSEY HALL Attending Unavailable TREE KRISHNAN Attending Unavailable TREE KRISHNAN Attending Unavailable YURI RODRIGUEZ Attending Unavailable Allergies Allergy ClassificationReported Allergen(s)Allergy TypeDate of OnsetReaction(s) Facility (19 sources)GlutenPropensity to adverse fuggwhhsr97-04-8252[facility] ([facility])Isosorbide DinitrateDrug Fdfyuwt24-00-3213EqqzxmsuPTQR [facility] (11 sources)Gluten; Translations: [GLUTEN]Propensity to adverse reactions to food (disorder)26-99-9130SbkTzayyp Repository (11 sources)Isosorbide; Translations: [ISOSORBIDE MONONITRATE]Drug Allergy 26-32-9803MjhhsjpzEhwYsqnbg Repository (1 source)ALLERGIES NOT ON FILE; Translations: [ALLERGIES NOT ON FILE]Propensity to adverse reactions (disorder)[facility] Repository Medications Current Medications MedicationDrug Class(es)DatesSig (Normalized)Sig (Original)[id number] 200 actuat albuterol 0.09 mg/actuat metered dose inhaler (20 sources)beta2-Adrenergic AgonistStart: 88-63-9063rbzc 1 puff(s) by inhalation every four hours as neededAlbuterol Sulfate 90 mcg/actuation HFA aerosol inhaler Active 2 PUFF INHALATION Q4H as needed June 14, 2025 12:00am Complies with drug therapyalbuterol (5 MG/ML) 0.5% nebulizer solution Take 2.5 mg by nebulization every 4 (four) hours if needed for wheezing or shortness of breath Activetake 2 puff(s) by inhalation every six hours for wheezingalbuterol HFA 90 mcg/act inhaler Inhale 2 puffs every 6 (six) hours if needed for wheezing or shortness of breath Activetake 2.5 mg by inhalation every four hours as needed for wheezingalbuterol (PROVENTIL) 5 mg/mL nebulizer solution Inhale 0.5 mL (2.5 mg total) by nebulization every4 (four) hours as needed for wheezing. Activetake 2 puff(s) by inhalation every six hours as needed for wheezing albuterol (PROVENTIL HFA;VENTOLIN HFA) 90 mcg/actuation inhaler Inhale 2 puffs every 6 (six) hours as needed for wheezing. Activealbuterol 0.833 mg/ml / ipratropium bromide 0.167 mg/ml inhalation solution (20 sources)Anticholinergic, beta2-Adrenergic AgonistStart: 07-42-3703otvo 1 mL by inhalation four times dailyIpratropium-Albuterol 0.5 mg-3 mg(2.5 mg base)/3 mL solution for nebulization Active 3 ML INHALATION Four times daily June 14, 2025 12:00am Complies with drug therapyStart: 71-33-6497wibrschthyu- albuterol (Duo-Neb) 0.5-2.5 mg/3 mL nebulizer solution Take 3 mL by nebulization in themorning and 3 mL at noon and 3 mL in the evening and 3 mL before bedtime. 02/20/2022 ActiveStart: 71-60-6531Xsxgmucvfen-Albuterol 0.5-2.5 (3) MG/3ML Inhalation Solution Quantity: 1350 Refills: 0 Ordered: 20-Feb-2022 DO Start : 20-Feb-2022 Activeapixaban 5 mg oral tablet (20 sources)Factor Xa InhibitorStart: 06-04-2023 End: 23-04-9673pvnh 1 tablet by mouth in the morningapixaban (Eliquis) 5 MG tablet Take 5 mg by mouth in the morning and 5 mg in the evening. 06/04/2023 Activeascorbic acid 1000 mg oral tablet (20 sources)Vitamin Ctake 1 tablet by mouth in the morningascorbic acid (Vitamin C) 1000 MG tablet Take 1,000 mg by mouth in the morning. Activeaspirin 81 mg oral tablet (20 sources)Platelet Aggregation Inhibitor, Nonsteroidal Anti-inflammatory Drug Start: 41-10-0254vmss 1 tablet by mouth once dailyAspirin 81 mg tablet Active 81 MG PO Daily June 14, 2025 12:00am Complies with drug therapyStart: 54-40-3697kjkm 1 tablet by mouth in the morningaspirin 81 MG EC tablet Take 81 mg by mouth in the morning. 07/25/2022 Activeatorvastatin 80 mg oral tablet (20 sources)HMG-CoA Reductase InhibitorStart: 04-38-5778sviv 1 tablet by mouth once dailyAtorvastatin 80 mg tablet Active 80 MG PO Daily June 14, 2025 12:00am Complies with drug therapyStart: 01-20-2023 End: 74-15-4872wlap 1 tablet by mouth in the morningatorvastatin (LIPITOR) 40 mg tablet Indications: Coronary artery disease involving coronary bypass graft of council heart without angina pectoris , Hx of CABG , Paroxysmal atrial fibrillation (CMS-HCC) , Aneurysm of ascending aorta without rupture , History of maze procedure Take 1 tablet (40 mg total) by mouth in the morning. 90 tablet 1 02/19/2024 Activeazithromycin 250 mg oral tablet (20 sources)Macrolide AntimicrobialStart: 09-73-7183bald 1 tablet by mouth once dailyAzithromycin 250 mg tablet Active 250 MG PO Daily June 14, 2025 12:00am Complies with drug therapycapsaicin 0.75 mg/ml topical cream (1 source)Start: 28-87-5002Esymgsdbc 0.075 % cream Active 1 APPLIC TOPICAL Three times daily as needed for foot pain 57 30 June 14, 2025 12:00am Apply 1 thin layer to the feet up to three times a day as needed for pain. Donot apply capsaicin to wounds or damaged/irritated skin. Do not use in combination with external heat source or other topical analgesics. Complies with drug therapy cholecalciferol 0.05 mg oral capsule (20 sources)Vitamin DStart: 80-32-5739frpx 1 capsule by mouth once daily Cholecalciferol (Vitamin D3) 50 mcg (2,000 unit) capsule Active 50 MCG PO Daily June 14, 2025 12:00am Complies with drug therapy End: 64-74-7328cyug 1 tablet by mouth in the morningcholecalciferol (Vitamin D- 3) 25 MCG (1000 UT) tablet Take 1,000 Units by mouth in the morning. 2025 Discontinueddapagliflozin 10 mg oral tablet (10 sources)Sodium-Glucose Cotransporter 2 InhibitorStart: 02-10-2025 End: 21-35-1411uygkygmmjijtl (Farxiga) 10 MG Take 10 mg by mouth 02/10/2025 02/10/2026 Activeferrous sulfate 325 mg delayed release oral tablet (20 sources)take 1 tablet by mouth at mealtimeferrous sulfate 325 (65 Fe) MG EC tablet Take 65 mg by mouth in the morning. Take with meals. Dpvqaa59 actuat fluticasone furoate 0.1 mg/actuat / umeclidinium 0.0625 mg/actuat / vilanterol 0.025 mg/actuat dry powder inhaler (20 sources)Anticholinergic, Corticosteroid, beta2-Adrenergic AgonistStart: 86-82-9862vfvo 1 puff(s) by inhalation in the morningTrelegy Ellipta 100-62.5-25 MCG/ACT aerosol powder Inhale 1 puff in the morning. 03/15/2022 ActiveStart: 29-72-2327Myeepgl Ellipta 100-62.5-25 MCG/INH AEPB Quantity: 180 Refills: 0 Ordered: 15-Mar-2022 DO Start : 15-Mar-2022 EnhotiAksnscsprav-Ppdevwpsn-Cmtweewf (2 sources)Start: 49-85-0833Sjxfultvhhy-Umeclidin-Vilanter (Trelegy Ellipta) 200-62.5-25 mcg blister with device Active 1 INH INHALATION Daily June 14, 2025 12:00am Complies with drug xjkfqqgqtmpbrvwdip-rdnyhfgpu-doylncku (TRELEGY ELLIPTA) 200-62.5-25 mcg blister with device (10 sources)Start: 93-61-1445unmwmensvps-umeclidin-vilanter (TRELEGY ELLIPTA) 200-62.5-25 mcg blister with device 1 puff in the morning. 03/15/2022 Active gabapentin 600 mg oral tablet (14 sources)Anti-epileptic AgentStart: 40-06-9143ekjl 1 tablet by mouth three times dailygabapentin (NEURONTIN) 600 mg tablet Take 1 tablet (600 mg total) by mouth 3 (three) times a day. 03/30/2022 ActiveStart: 12-47-2660Dcbtrueqel 300 MG Oral Capsule Quantity: 270 Refills: 0 Ordered: 30-Mar-2022 DO Start : 03-Mjr-3637Boyzdg87 hr isosorbide mononitrate 30 mg extended release oral tablet (19 sources)Nitrate VasodilatorStart: 11-87-2578oknv 1 tablet by mouth once daily, then take 1 tablet by mouth every twenty-four hoursisosorbide mononitrate ER (Imdur) 30 MG 24 hr tablet Take 30 mg by mouth Daily 06/13/2022 Active levoFLOXacin 500 mg oral tablet (2 sources)Quinolone AntimicrobialStart: 2025 End: 44-13-1817fkiw 1 tablet by mouth once dailylevoFLOXacin (Levaquin) 500 MG tablet Indications: Otorrhea of right ear Take 1 tablet (500 mg) by mouth Daily for 10 days 10 tablet 2025 04/04/2025 Activelisinopril 5 mg oral tablet (20 sources)Angiotensin Converting Enzyme InhibitorStart: 70-42-9021xafm 1 tablet by mouth once dailyLisinopril 5 mg tablet Active 5 MG PO Daily June 14, 2025 12:00am Complies with drug therapyStart: 01-20-2023 End: 04-90-2801kqit 1 tablet by mouth once daily in the morninglisinopriL (PRINIVIL,ZESTRIL) 5 mg tablet Indications: Coronary artery disease involving coronary bypass graft of council heart without angina pectoris , Hx of CABG , Paroxysmal atrial fibrillation (CMS-HCC) , Aneurysm of ascending aorta without rupture , History of maze procedure TAKE 1 TABLET BY MOUTH ONCE DAILY IN THE MORNING 30 tablet 11/12/2024 ActiveStart: 21-09-4977Sfuoanihbd 5 MG Oral Tablet Quantity: 90 Refills: 0 Ordered: 14-Mar-2022 DO Start : 14-Mar-2022 Active meloxicam 15 mg oral tablet (10 sources)Nonsteroidal Anti-inflammatory DrugStart: 52-34-2586uifm 1 tablet by mouth once dailyMeloxicam 15 mg tablet Active 15 MG PO Daily June 14, 2025 12:00am Complies with drug jhakdff24 hr metoprolol succinate 50 mg extended release oral tablet (20 sources)beta-Adrenergic BlockerStart: 75-08-4210jpwc 2 tablets by mouth every twenty-four hours in the morning, then take 1 tablet by mouth in the e veningMetoprolol Succinate 50 mg tablet extended release 24 hr Active 50 MG PO .COMPLEX June 142:00am 50 mg orally; take 2 tablets by mouth in the morning and take 1 tablet by mouth in the evening Complies with drug therapy Start: 84-27-4193tjdztdwwxz succinate XL (TOPROL XL) 50 mg 24 hr tablet Indications: Coronary artery disease involving coronary bypass graft of council heart without angina pectoris , Hx of CABG , Paroxysmal atrial fibrillation (CMS-HCC) , Aneurysm of ascending aorta without rupture , History of maze procedure Take 100 mg in the morning and 50 mg at night 270 tablet 3 06/25/2023 ActiveStart: 58-02-3636rrzm 1 tablet by mouth every twenty-four hoursMetoprolol Succinate ER 50 MG Oral Tablet Extended Release 24 Hour Quantity: 135 Refills: 0 Ordered: 23-Mar-2022 DO Start : 23-Mar-2022 Activenitroglycerin 0.4 mg sublingual tablet (20 sources)Nitrate VasodilatorStart: 46-55-4217xgjrgdssavmec (Nitrostat) 0.[address] 0.4 mg under the tongue every 5 (five) minutes if needed for chest pain 07/25/2022 ActiveStart: 07-25-2022 End: 97-95-4952onftaghmzhfqw (NITROSTAT) 0.4 MG SL tablet Indications: Coronary artery disease involving coronary bypass graft of council heart without angina pectoris , Paroxysmal atrial fibrillation (CMS-HCC) , Aneurysm of ascending aorta without rupture , Hx of CABG , History of maze procedure DISSOLVE 1 TABLET UNDER THE TONGUE NEEDED FOR CHEST PAIN- MAY REPEAT EVERY 5 MINUTES IF NEEDED ( MAX 3 DOSES.- IF NO RELIEF CALL 911) 25 tablet 11 08/03/2024 Activeofloxacin 3 mg/ml otic solution (15 sources)Quinolone AntimicrobialStart: 02-17-2023 End: 84-11-7483svpdnfrsp (Floxin) 0.3 % otic solution Indications: Otorrhea of right ear Administer 5 drops into the right ear in the morning and 5 drops before bedtime. Do all this for 10 days. 5 mL 1 2025 04/04/2025 Active omeprazole 40 mg delayed release oral capsule (20 sources)Proton Pump InhibitorStart: 97-08-4524dwmp 1 capsule by mouth in the morningomeprazole (PriLOSEC) [address] capsule Take 40 mg by mouth in the morning. 03/19/2022 ActiveStart: 45-20-4282Rgcneqivod 40 MG Oral Capsule Delayed Release Quantity: 90 Refills: 0 Ordered: 19-Mar-2022 DO Start: 19-Mar-2022 ActiveOxygen (10 sources)oxygen Inhale continuously. Activepantoprazole 40 mg delayed release oral tablet (10 sources)Proton Pump InhibitorStart: 62-11-3069avft 1 tablet by mouth once dailypantoprazole (ProtoNix) 40 MG EC tablet Take 40 mg by mouth Daily 02/07/2025 ActivepredniSONE 10 mg oral tablet (20 sources)Start: 96-05-5225hfah 1 tablet by mouth once dailyPrednisone 10 mg tablet Active 10 MG PO Daily June 14, 2025 12:00am Complies with drug therapytake 1 tablet by mouth once dailypredniSONE (Deltasone) 20 MG tablet Take 20 mg by mouth Daily Activepregabalin 150 mg oral capsule (20 sources)Start: 02-18-2024 End: 81-94-0925jten 1 capsule by mouth in the morning, then take 1 capsule by mouth in the evening, then take 1 capsule by mouth at bedtimepregabalin (Lyrica) 150 MG capsule Indications: DDD (degenerative disc disease), lumbar , Lumbosacra l radiculopathy Take 1 capsule (150 mg) by mouth in the morning and 1 capsule (150 mg) in the evening and 1 capsule (150 mg) before bedtime. 270 capsule 12/20/2024 Activeroflumilast 0.5 mg oral tablet (20 sources)Phosphodiesterase 4 InhibitorStart: 40-58-3304jwfx 1 tablet by mouth in the morningDaliresp 500 MCG tablet Take 500 mcg by mouth in the morning. 03/15/2022 Activesodium chloride 9 mg/ml inhalation solution (7 sources)Start: 75-39-4275sinf 1 mL by inhalation every twelve hoursSodium Chloride 0.9 % solution for nebulization Active 3 ML INHALATION Q12H June 14, 2025 12:00am Complies with drug therapyStart: 31-47-2135olhxmz chloride 0.9 % nebulizer solution Inhale 3 mL 03/23/2025 Activespironolactone 25 mg oral tablet (8 sources)Aldosterone AntagonistStart: 02-09-2025 End: 52-09-4487ngks 1 tablet by mouth in the morningspironolactone (Aldactone) 25 MG tablet Take 25 mg by mouth in the morning. 02/09/2025 02/09/2026 Active SUMAtriptan 100 mg oral tablet (19 sources)Serotonin-1b and Serotonin-1d Receptor AgonistSUMAtriptan (Imitrex) 100 MG tablet ActiveTESTOSTERONE, BULK, MISC (10 sources)TESTOSTERONE, BULK, MISC by miscellaneous route. 100 mg 1 tablet daily Activetheophylline 400 mg extended release oral tablet (20 sources)MethylxanthineStart: 47-24-4977cqqg 1 tablet by mouth every twelve hoursTheophylline 300 mg tablet extended release 12 hr Active 300 MG PO Q12H June 14, 2025 12:00am Complies with drug therapyStart: 01-77-9655hwuw 1 tablet by mouth in the morning, then take 1 tablet by mouth every twenty-four hours at bedtimetheophylline ER (Uniphyl) 400 MG 24 hr tablet Take 400 mg by mouth in the morning and 400 mg beforebedtime. 01/16/2023 Activetake 1 capsule by mouth every twenty-four hours in the morningtheophylline (BRYAN-24) 400 MG 24 hr capsule Take 1 capsule (400 mg total) by mouth in the morning. Active tiZANidine 4 mg oral tablet (8 sources)Central alpha-2 Adrenergic AgonistStart: 75-28-5155khfj 2 tablets by mouth at bedtimetiZANidine (Zanaflex) 4 MG tablet TAKE 2 TABLETS BY MOUTH AT BEDTIME FOR 30 DAYS 01/07/2025 Activetopiramate 50 mg oral tablet (8 sources)Start: 46-32-8833lsvg 1 tablet by mouth once dailytopiramate 50 MG tablet Take 1 tablet by mouth Daily 02/21/2025 Activezinc gluconate 50 mg oral tablet (20 sources)zinc gluconate 50 MG tablet 1 (one) time each day at the same time Active Completed/Discontinued Medications MedicationDrug Class(es)DatesSig (Normalized)Sig (Original)acetaminophen 300 mg / codeine phosphate 30 mg oral tablet (13 sources)Opioid AgonistStart: 06-12-2023 End: 65-88-6525ilbk 1 tablet by mouth every six hours as needed for pain acetaminophen-codeine (Tylenol w/ Codeine #3) 300-30 MG tablet take 1 tablet by mouth every 6 hoursAS NEEDED FOR PAIN for 5 days 06/12/2023 2025 Discontinueddicyclomine hydrochloride 20 mg oral tablet (13 sources)AnticholinergicStart: 04-01-2023 End: 00-47-5940mrpi 1 tablet by mouth three times daily for paindicyclomine (Bentyl) 20 MG tablet take 1 tablet by mouth three times a day if needed for abdominal pain 04/01/2023 2025 QeockhwysjnaQtmesgtpawa-Eesyjlpxi-Kirubh 200-62.5-25 MCG/ACT aerosol powder (13 sources)Start: 11-19-2022 End: 30-49-2331ylmn 1 puff(s) by inhalation once daily Vfttjzuuqfp-Zzywhlvqg-Telmrg 200-62.5-25 MCG/ACT aerosol powder Inhale 1 puff 1 (one) time each day. 11/19/2022 2025 DiscontinuedStart: 84-67-0467kclq 1 puff(s) by inhalation once zxoerTpkjctuqmdw-Wocpdtnzm-Lvrhur 200-62.5-25 MCG/ACT aerosol powder Inhale 1 puff 1 (one) time each day. 11/19/2022 Activelysine 500 mg oral tablet (7 sources) End: 04-81-0620wqli 1 tablet by mouth in the morninglysine 500 mg tablet Take 1 tablet (500 mg total) by mouth in the morning. 06/24/2024 DiscontinuedMaca 500 MG capsule (13 sources) End: 71-36-3974Gwwv 500 MG capsule as directed Orally 2025 Discontinued Ann Marie 500 MG capsule as directed Orally Activenaproxen sodium 220 mg oral tablet (13 sources)Nonsteroidal Anti-inflammatory Drug End: 52-84-1919kmhjstxu sodium (Aleve) 220 MG tablet every 12 (twelve) hours. 2025 Skhmjtgtviet68 hr naproxen sodium 220 mg / pseudoephedrine hydrochloride 120 mg extended release oral tablet (20 sources)alpha-Adrenergic Agonist, Nonsteroidal Anti-inflammatory Drug End: 08-34-2379trsr 1 tablet by mouth every twelve hours in the morning pseudoephedrine-Naproxen Na ER 120-220 MG tablet sustained-release 12 hour Take 1 tablet by mouth in the morning and 1 tablet before bedtime. 2025 Discontinuedsaw palmetto (Serenoa repens) 450 MG capsule (13 sources) End: 68-65-1538tgt palmetto (Serenoa repens) 450 MG capsule as directed Orally 2025 Discontinuedsaw palmetto (Serenoa repens) 450 MG capsule as directed Orally Activesoybean lecithin 1200 mg oral capsule (13 sources) End: 16-72-7231rnni 1 capsule by mouth once dailyLecithin 1200 MG capsule Take 1 capsule every day by oral route. 2025 Discontinuedvitamin b12 1 mg oral tablet (20 sources)Vitamin B12 End: 66-49-2865qzcu 1 tablet by mouth in the morningcyanocobalamin (Vitamin B- 12) 1000 MCG tablet Take 1,000 mcg by mouth in the morning. 2025 Dis continued End: 91-03-8246fszatmporrzffm (Vitamin B-12) 500 MCG tablet 1 (one) time each day at the same time. 2025 Discontinuedzonisamide 25 mg oral capsule (7 sources)Anti-epileptic Agent End: 41-54-5006gxoc 1 capsule by mouth in the morning, then take 1 capsule by mouth at bedtimezonisamide (ZONEGRAN) 25 mg capsule Take 1 capsule (25 mg total) by mouth in the morning and 1 capsule (25 mg total) before bedtime. 06/24/2024 Discontinued Problems Active Problems Problem ClassificationProblemDateDocumented DateEpisodic/ChronicAortic; peripheral; and visceral artery aneurysms (20 sources)Aneurysm of thoracic aorta; Translations: [Thoracic aneurysm without mention of rupture]Onset: 697852-62-6719GbtoqqiYhcizmb dysrhythmias (20 sources)Atrial fibrillation; Translations: [Atrial fibrillation]Onset: 393029-36-1591YuwzzfgEdbonsl obstructive pulmonary disease and bronchiectasis (20 sources)Chronic obstructive lung disease; Translations: [Chronic airway obstruction, not elsewhere classified]Onset: 01-22-2018 Resolved: 28-33-2195FaoqlgrHfazlawlcton of device; implant or graft (20 sources)Arteriosclerosis of coronary artery bypass graft; Translations: [Atherosclerosis of coronary arterybypass graft(s) without angina pectoris] Onset: 902624-41-4504MgoxthqLysubfkkng heart failure; nonhypertensive (14 sources)Chronic systolic heart failure; Translations: [Chronic systolic (congestive) heart failure]Onset: 08-16-2024 Resolved: 161567-89-6980IzylmbmQzbfdexf atherosclerosis and other heart disease (18 sources)Coronary arteriosclerosis; Translations: [Coronary atherosclerosis of unspecified type of vessel, council or graft]Onset: 08-16-2024 Resolved: 724853-34-7360FyiirasPyovszrzj of lipid metabolism (20 sources)Mixed hyperlipidemia; Translations: [Mixed hyperlipidemia]Onset: 06-24-2024 Resolved: 419249-10-3859KmpeegpCbuzjnywo hypertension (20 sources)Hypertensive disorder; Translations: [Unspecified essential hypertension]Onset: 06-24-2024 Resolved: 088404-61-9687KkwlipuEzijhzxyk of skin (4 sources)H/O Malignant melanoma; Translations: [Personal history of malignant melanoma of skin]EpisodicMycoses (2 sources)Pain in toe; Translations: [Tinea unguium]35-69-4956JeulagaiXjwsb aftercare (4 sources)Encounter for therapeutic drug level monitoring; Translations: [ENC THERAPEUTC DRUG LEVL MONITORING]Onset: 71-97-9032WgshdjabQoysi and ill-defined heart disease (1 source)Heart disease, unspecified; Translations: [Heart disease, unspecified] Onset: 98-93-1778EqmkiwiAgcpl and ill-defined heart disease (5 sources)Left ventricular cardiac dysfunction; Translations: [Heart disease, unspecified]Onset: 040225-95-9150ZiswduwQizen ear and sense organ disorders (4 sources)Otorrhea of right ear; Translations: [Otorrhea, right ear]03-26-2025 EpisodicOther gastrointestinal disorders (4 sources)History of gastroesophageal reflux disease; Translations: [Personal history of other diseases of digestive system]EpisodicOther gastrointestinal disorders (4 sources)H/O: gastrointestinal disease; Translations: [Personal history of other diseases of digestive system]EpisodicOther hematologic conditions (4 sources)History of anemia; Translations: [Personal history of diseases of blood and blood-forming organs]EpisodicOther nervous system disorders (19 sources)Neuropathy; Translations: [Polyneuropathy, unspecified]Onset: 401878-14-6520EescyueDmywt nervous system disorders (20 sources)Polyneuropathy; Translations: [Polyneuropathy, unspecified]Onset: 06-27-2023 Resolved: 647860-39-3075HtrlmpvFurno nervous system disorders (3 sources)Carpal tunnel syndrome of left wrist; Translations: [Carpal tunnel syndrome, left upper limb]36-99-0034BzqdzdoYlwan nervous system disorders (6 sources)Tremor; Translations: [Tremor, unspecified]59-95-4631HwhgnoixGoylj nutritional; endocrine; and metabolic disorders (2 sources)Morbid (severe) obesity due to excess calories; Translations: [Morbid (severe) obesity due to excess calories]Onset: 30-25-1704LnehenmPqnew nutritional; endocrine; and metabolic disorders (2 sources)Body mass index (BMI) 35.0-35.9, adult; Translations: [Body mass index (BMI) 35.0-35.9, adult]Onset: 13-24-5917ChjgxbcYejbg screening for suspected conditions (not mental disorders or infectious disease) (2 sources)Abnormal result of other cardiovascular function study; Translations: [Abnormal result of other cardiovascular function study]Onset: 04-06-2025 EpisodicOtitis media and related conditions (4 sources)Dysfunction of right eustachian tube; Translations: [Unspecified Eustachian tube disorder, right ear]32-56-1379VkkckwhfFihvxqhjqt and visceral atherosclerosis (2 sources)Peripheral vascular disease; Translations: [Peripheral vascular disease, unspecified]19-08-0452VqxwyxtCgfy and subcutaneous tissue infections (2 sources)Paronychia of toe of left foot; Translations: [Cellulitis of left toe]08-34-4971YnjpdeyxWlmehbkihxt; intervertebral disc disorders; other back problems (20 sources)Degeneration of lumbar intervertebral disc; Translations: [DDD (degenerative disc disease), lumbar]Onset: 157677-83-0188Yqggwig Unclassified (1 source)Neck Pain / 179572()Onset: 08-23-9699Yxcljwoqihpg (1 source)Stiffness / 343()Onset: 36-14-7634Bqsdokdwlkay (1 source)Back Pain / 12()Onset: 49-47-4043Mdpoickqutqs (1 source)Upper Extremity Weakness / [id number]()Onset: 87-24-1154Izdspfymkfdx (1 source)M54.2 - Cervicalgia,M51.369 - Other intervertebral disc degeneration, lumbar region without mention of lumbar back pain or lower extremity pain,M54.17 - Radiculopathy, lumbosacral regionUnclassified (2 sources)Abnormal stress testOnset: 77-01-0710Qmuyyjzzyduk (1 source)Abdominal aortic aneurysm, without rupture, unspecified; Translations: [Abdominal aortic aneurysm, without rupture, unspecified]Onset: 12-31-2024 Unclassified (1 source)Aneurysm of the ascending aorta, without rupture; Translations: [Aneurysm of the ascending aorta, without rupture]Onset: 37-18-6468Alqytucdfmoi (1 source)Obesity, class 2; Translations: [Obesity, class 2]Onset: 08-16-2024 Past or Other Problems Problem ClassificationProblemDateDocumented DateEpisodic/ChronicCardiac dysrhythmias (19 sources)Sinus tachycardia; Translations: [Tachycardia, unspecified]Onset: 01-22-2018 Resolved: 796120-46-7751LbmzmonlYwlmcayz, including migraine (20 sources)Headache; Translations: [Occipital headache]Onset: 04-08-2018 Resolved: 597319-29-6953OcoviuzrDigjgislpkji with complications and secondary hypertension (8 sources)Hypertensive heart failure; Translations: [Hypertensive heart disease with heart failure]Onset: 2025 Resolved: 162922-51-2054CvwgtaoJntmtflawbtsno (8 sources)Arthritis; Translations: [Unspecified osteoarthritis, unspecified site]Onset: 08-16-2024 Resolved: 970514-77-4047TikzcmvGsmrc aftercare (12 sources)Long-term current use of anticoagulant; Translations: [USP (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 of 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]Onset: 08-16-2024 Resolved: 791533-52-8363RmncibqoMyknz aftercare (2 sources)USP (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 of 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; Translations: [USP (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 of 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]Onset: 77-11-0354BirqlbqoMmgol gastrointestinal disorders (19 sources)Celiac disease; Translations: [Celiac disease]Onset: 03-04-2019 Resolved: 931239-52-4752MlnnybhRifde male genital disorders (8 sources)Male erectile dysfunction, unspecified; Translations: [Impotence of organic origin]Onset: 08-16-2024 Resolved: 720096-73-8343UktsvlrTlljt nervous system disorders (20 sources)Paresthesia; Translations: [Paresthesia of skin]Onset: 01-20-2024 53-24-4895UyzfbzhsDuqfh non-traumatic joint disorders (8 sources)Pain in wrist; Translations: [Pain in unspecified wrist]Onset: 08-16-2024 Resolved: 804950-04-2976QankvqboTygbi nutritional; endocrine; and metabolic disorders (8 sources)Severe obesity; Translations: [Class 2 severe obesity due to excess calories with serious comorbidity and body mass index (BMI) of 35.0 to 35.9 in adult]Onset: 08-16-2024 Resolved: 810441-41-1706RufrgpjExrucmbv codes; unclassified (20 sources)History of maze procedure for atrial fibrillation; Translations: [Other specified postprocedural states]Onset: 250402-58-1997Ctevjurs Screening and history of mental health and substance abuse codes (1 source)Personal history of nicotine dependence; Translations: [PERSONAL HISTORY OF NICOTINE DEPEND]Onset: 34-75-6307YevxaxqhTwjusiuozzo; intervertebral disc disorders; other back problems (20 sources)Cervicalgia; Translations: [Neck pain]Onset: 04-08-2018 Resolved: 174212-53-8829UvxodbnvRclkuuvyzsxj (1 source)Abdominal aortic aneurysm, without rupture, unspecified; Translations: [Abdominal aortic aneurysm, without rupture, unspecified]Onset: 12-31-2024 Unclassified (1 source)Aneurysm of the ascending aorta, without rupture; Translations: [Aneurysm of the ascending aorta, without rupture]Onset: 78-05-1495Tqgofzwergns (1 source)Obesity, class 2; Translations: [Obesity, class 2]Onset: 08-16-2024 Results Test NameValueInterpretationReference RangeFacilityUrine Cultureon 06-14-2025 Bacteria identified Cx Nom (U)No Growth 2 Days PERFORMED BY: [place] [address] PATHOLOGIST WATER VALVE REPAIRER MICHEL PACHECO M.D.NormalThe [facility]ly [facility] Physician GroupComment on above: Performed By: #### CUU #### [place] [address] USAOffice Visiton 53-76-4733Ztvkdo-up [id number] Nikunj Causey 1960 M Date Provider Department Center 05/27/2025 BENNY NICOLE CAROL ANN [facility] Family History Problem Relation Age of Onset Coronary artery disease Mother Coronary artery disease Father Family Status - Relation Status Age at Mother Father Sister Alive Level of Service:50467 [place] OFFICE/OUTPATIENT ESTABLISHED MOD MDM 30 MIN Reason for Visit and Comments: Follow-up [959781] - Patient is here today for a follow up s/p cath. Patient states heart desir he feels well. Patient states he fell around labor day and possibly tore a hamstring. Post-Cath [731] Coronary Artery Disease [187] Hyperlipidemia [182] Hypertension [586895] Thoracic aortic aneurysm without rupture [Other] Cardiomyopathy [104] Atrial Fibrillation [80] Congestive Heart Failure [127][facility] 06-[facility]-2121IRNM Attestation signed by Juan Flores MD at 04/21/2025 12:57 PM I personally spoke with and examined Mr. Causey with Dr. Saleh. He has a drop in LVEF and a positive stress test. Plan cors, LV and WALTERS angiography. He voices understanding of risks (, ME, bleeding, etc) and agrees to proceed. Patient: [...] Celiac disease 08/16/2024 Coronary artery disease involving council coronary artery of council heart without angina pectoris 08/16/2024 Erectile dysfunction 08/16/2024 Pain in wrist 08/16/2024 Peripheral polyneuropathy 08/16/2024 Cardiomyopathy, ischemic 08/16/2024 Chronic systolic heart failure (CMS/HCC) 08/16/2024 Chronic anticoagulation 08/16/2024 Pure hypercholesterolemia 08/16/2024 Class 2 severe obesity due to excess calories with serious comorbidity and body mass index (BMI) of 35.0 to 35.9 in adult (CMS/HCC) 08/16/2024 Mixed hyperlipidemia 06/24/2024 Essential hypertension 06/24/2024 DDD (degenerative disc disease), lumbar 01/20/2024 Neuropathy 01/20/2024 Paresthesia 01/20/2024 History of maze procedure 05/20/2022 Paroxysmal A-fib (CMS/HCC) 05/20/2022 Thoracic aortic aneurysm without rupture 05/20/2022 Cervicalgia 04/08/2018 Headache in back of head 04/08/2018 Abnormal cardiovascular stress test 04/05/2025 Allergies: Allergies[2] CUSTOMER SERVICE SALES ASSOCIATE/Current Medications: Prescriptions Prior to Admission[3] Current Medications[4] [...] and agreed to proceed. Lars Saleh PGY-4 Filling Mixer [facility] [1] Past Medical History: Diagnosis Date [...] by mouth 3 times (more content not included)...[facility] SystemHPon 24-05-4972WZT&P reviewed. The patient was examined and there are no changes to the H&P. Will proceed with coronary angiography for further evaluation of abnormal stress test. Consent for blood products obtained. Risks, benefits, and alternatives to procedure discussed with patient in detail who expressed understanding and agreed to proceed.[facility] SystemNURSNOTEon 04-21-2025 NURSNOTERN educated pt on d/c instructions. This included: site care, limited physical [...] wheeled off of unit with all of belongings.[facility] SystemNURSNOTEPatient requesting resp do his DuoNeb nebulizer prior to having his cath done. Resp supervisor gate services called to have the treatment done - states someone will be down as soon as possibleNormalUniMartins Ferry HospitalResults Follow-Upon 36-34-0833Miufxip Follow-[id number] Nikunj Causey 1960 M Date Provider Department Center 04/21/2025 [id number] FUENTES [facility] [place] HeartVAS Family History Problem Relation Age of Onset Coronary artery disease Mother Coronary artery disease Father Family Status - Relation Status Age at Mother Father Sister AliveNoLifeBrite Community Hospital of StokesniMartins Ferry HospitalHPon 53-42-5640DJTcnzvpnt Office Cardiology Clinic Note Reason for cardiology [...] procedure, paroxysmal atrial fibrillation, s/p ablation in [place], thoracic aortic aneurysm, left ventricle dysfunction, hypertension, hyperlipidemia COPD, prior tobacco and alcohol abuse He used to follow with [facility] cardiology. He states that overall [...] Disp: , Rfl: theop (more content not included)...[facility] Office Visiton 74-81-1580Ljcgtf-up [id number] Nikunj Causey 1960 M Date Provider Department Center 04/14/2025 07169-QHMWUWBENNY FUENTES [facility] Family History Problem Relation Age of Onset Coronary artery disease Mother Coronary artery disease Father Family Status - Relation Status Age at Mother Father Sister Alive Level of Service:32292 NH OFFICE/OUTPATIENT ESTABLISHED MOD MDM 30 MIN Reason for Visit and Comments: Follow-up [387794] Abnormal stress test [Other] Cardiac Cath scheduled 04/28/2025 [Other] Coronary Artery Disease [187] Hyperlipidemia [182] Congestive Heart Failure [127] Hypertension [324820] COPD [313] Home o2 3lpm via N/C 31/03 [Other]NormalShelby Memorial Hospital36on 41-18-982133KbrjzMD Tari Hagan MA Overall echo is normal with minor valvular heart disease LVM to advise patient of Dr. Fuentes's findings.NormalShelby Memorial HospitalOrders Only71-05-0433Aedhjy [id number] Nikunj Causey 1960 M Date Provider Department Center 04/05/2025 928-DNANI THOMAS Family History Problem Relation Age of Onset Coronary artery disease Mother Coronary artery disease Father Family Status - Relation Status Age at Mother Father Sister AliveNoDunlap Memorial HospitalResults Follow-Upon 77-76-2874Fdrlzru Follow-[id number] Nikunj Causey 1960 M Date Provider Department Center 04/02/2025 [id number]-FJHVBBBENNY FUENTES [facility] [place] HeartVAS Family History Problem Relation Age of Onset Coronary artery disease Mother Coronary artery disease Father Family Status - Relation Status Age at Mother Father Sister AliveNoDunlap Memorial HospitalOrders Only03-21-2025 Orders [id number] Nikunj Causey 1960 M Date Provider Department Center 03/21/2025 [id number], [facility] Family History Problem Relation Age of Onset Coronary artery disease Mother Coronary artery disease Father Family Status - Relation Status Age at Mother Father Sister AliveMount Carmel Health System36on 32-88-912933Bqvcfpnbt lab results from 01/19/2025 and echo from [...] labs prior to apt in Apr-May 2025. [facility] SystemOrders Onlyon 12-95-8897Hfqsmd Only [id number] Nikunj Causey 1960 M Date Provider Department Center 02/04/2025 [id number]-[id number], PATRICIA [place] Family History Problem Relation Age of Onset Coronary artery disease Mother Coronary artery disease Father Family Status - Relation Status Age at Mother Father Sister AliveNormalUniMartins Ferry HospitalOffice Visiton 12-31-2024 Follow-up [id number] Nikunj Causey 1960 M Date Provider Department Center 12/31/2024 07514-CSBDJIBENNY FUENTES Family History Problem Relation Age of Onset Coronary artery disease Mother Coronary artery disease Father Family Status - Relation Status Age at Mother Father Sister Alive Level of Service:46555 NH OFFICE/OUTPATIENT ESTABLISHED MOD MDM 30 MIN Reason for Visit and Comments: Coronary Artery Disease [187] Hyperlipidemia [182] Hypertension [744101][facility]36on Regarding echo and CTA chest performed on 10/01/2024: MD Danni Hagan [...] and blue Medicare care to apply for [facility] patient assistance program. Free 30 day voucher also provided for patient. BMP order given to be done in 1 week. LIPID,AST,ALT orders given to him to be completed in 2 months after increasing atorvastatin per Dr. Fuentes. He verbalized understanding.[facility] SystemOffice Visiton 33-97-8050Asmjks-up [id number] Nikunj Causey 1960 M Date Provider Department Center 08/16/2024 28657-TBTBLDBENNY FUENTES [facility] Family History Problem Relation Age of Onset Coronary artery disease Mother Coronary artery disease Father Family Status - Relation Status Age at Mother Father Level of Service:03587 NH OFFICE/OUTPATIENT NEW MODERATE MDM 45 MINUTES Reason for Visit and Comments: Atrial Fibrillation [80] - Had EKG at last apt with [facility] in Jun 2024. Denies chest pain and bleeding on Eliquis. Coronary Artery Disease [187] - CABG and MAZE in 2016 Hypertension [722867] Hyperlipidemia [182] COPD [313] - Sees Dr. PrestonalUniversteri [facility] HospitalPO[facility] EKG Ordered By: Juana Hercules on 73-26-6278WgkRipan[address] [place], [place] [address]EMG 1 Extremeityon 61-29-8370LRYO HealthcareNVC 7-8 Nerveson 02-19-1857XKRG Healthcare THEOPHYLLINEon 29-34-8349FQWAQDWELQEF12.0 ug/pNVzfehl58.0-20.0[facility] HospitalComment on above:Performed By: #### BRYAN #### [facility] [address] [address] [address] Karen LeeTHEOPHYLLINEon 57-17-5594GFADAFILLSLP0.3 ug/mLCritically low 10.0-20.0[facility] HospitalComment on above:Performed By: #### BRYAN #### [facility] [address] [address] [address] Karen Lu Pressure Cuff Sizeon 00-11-9237Nozq risk assessmenta) No falls within the last yearMG-CT Surgery-[place] Work Phone: Tobacco use status CPHSb) NoMG[facility] Work Phone: blood Pressure Cuff SizeLargeMG-CT Surgery-[facility] Work Phone: Office Visit (Thoracic and Esophageal Surgery)on 99-25-6736Elyyok-up visitDiagnoses/Problems Assessed Atrial fibrillation (427.31) (I48.91) COPD (chronic [...] oxygen chronically. He is set to begin pulmonaryrehabilitation. Review of Systems A complete Review of [...] Activated Vitals Vital Signs Recorded: 29May2022 02:58PM Lbarcnecfid87.2 F Heart Rate91 Yqszcfwejfa85 Bminwsoz821 Oemeghevo33 Blood Pressure Cuff SizeLarge Height5 ft 7.32 in Zjtssa247 lb 7 oz BMI Hczyzzfgid61.15 kg/m2 BSA Calculated2.19 Tobacco Useb) No Falls Screening (Age 18+)a) No falls within the last year O2 Ufvtwwznqz99, Nasal Cannula Pain Scale7 Physical Exam The [...] and excursion. The heart had a regular rateand rhythm without murmurs, rubs or gallops. The [...] MD; May 29 2022 3:24PM EST (Author) [facility] Referral Letteron 58-01-5539OV Referral LetterMr. Causey is referred for consideration of LVRS. 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 He is on 3 L nasal cannula oxygen chronically. He is set to begin pulmonaryrehabilitation. I looked at his CAT scan from 04/26/2022 he has severe COPD with a homogeneous distribution Mr. Causey has severe COPD but he has a homogeneous distribution on chest CT and would not benefit from surgical lung volume reduction. We will speak to Dr. Peña about the neck steps. Signatures Electronically signed by : Nadeem Ann MD; May 29 2022 3:24PM EST (Author) [facility] TouchworksCT LUNG CANCER SCREENINGon 06-00-4089RS LUNG CANCER SCREENING EXAMINATION: CT LUNG CANCER [...] Electronically authenticated by: ALEYDA DYER Date: 2022-04-26 16:20[facility] DaytonHEMOGLOBINon 42-69-6875Btjpvuksfa (Bld) [Mass/Vol]13.6 g/dL Critically low14.0-18.0The Samaritan HospitalComment on above:Performed By: #### HGB #### [facility] [address] [address] [address] Karen Pedroza Noteson 30-40-1485Cwkhqza mass concEncounter Department: [facility]AB THERAPYProgress Notes by Jacquelyn Rivera PT at 018 8:31 AMAuthor: HAYES Natarajanervice: (none)Author Type: Physical TherapistFiled: 06/04/2018 8:36 AMEncounter Date: 06/04/2018Status: SignedEditor: Jacquelyn Rivera PT (Physical Therapist)Physical Therapy Discharge NotePrimary Diagnosis: CervicalgiaReporting Period: 04/08/18 to 04/23/18Patient was seen for a total of 5 treatment sessions.Treatment during this episode of care consistedof evaluation, therapeutic exercise, mechanicaltraction, and manual therapy.Objective data collection as of 04/23/18.NDI: 19/50 38% disabilitySPINE:Posture: Postural Deficit: Forward Head and Rounded S houlderCervical Strength:Cervical:??Flexion: 4+??Extension: 4+Deep Cervical Flexors:?Cranial Cervical Flexion Test Score:?? Upper Trap: 4+Goal progression as of 04/23/18.OP THERAPY GOALS:Short Term Goals: STG to be met by 04/08/18 as discussed with and agreed upon by patient:1. Patient to be compliantwith progressive HEP2. Pt will report 3 days without headaches. MET3. Pt will demonstrate full cervical ROM in rotation and SB without increase in pain. NOT METLong Term Goals: LTG to be met by 06/08/18 as discussed with and agreed upon by patient:1. Patient to be independent with progressive HEP inorder to allow for continued strength,flexibility, and functional training after skilled care2. Pt will decrease score on NDI to <30 % disability to indicate and increase in function andreduction in symptoms. 38% NOT MET3. Pt will report no headaches for > 7 days. PROGRESSED up to 5 days. NOTMET4. Pt will demonstrate neck and scapular muscle strength at 4+/5 to improve upright posture. METGoals could not be further addressed due to patient not returning to therapy. Please refer toinitialevaluation and/or last progress report for further data. Pt self discharged with last txsession with CUSTOMER SERVICE SALES ASSOCIATE.Patient is being discharged due to not returning to therapy and/or Plan of Care being .Recommend patient continue with HEP previously instructed on during therapy as appropriate.Patient may be reinstated in therapy upon new evaluation and orders from the physician.Thank You.[facility] Medical CenterProgress Noteson 04-23-2018 Protein mass concEncounter Department: [facility]ITALAB THERAPYProgress Notes by Berlin Valle PTA at 04/23/2018 9:00 AMAuthor: Berlin Valle PTAService: (none)Author Type: Physical Therapy AssistantFiled: 04/23/2018 9:46 AMEncounter Date: 04/23/2018Status: SignedEditor: Berlin Valle PTA (Physical Therapy Assist ant)Physical Therapy Treatment NoteVisit Number: 5Encounter diagnosis:ICD-10-CM1.HrqulkhgdeoA38.22.Headache in back of aejhK16Vmmacxu Medical Diagnosis:SUBJECTIVE: Pt requests today being his last PTappt due to decreased MITCHELL symptoms.Compliance with HEP: [...] /Date: 04/16/18Visit: 3 /Date: 04/21/18Visit: 4 /Date: 04/23/18Visit:5 /PT EVALUBE, L1, x6'UBE, L1, x6'UBE, L1, [...] t-band- Scap retract x15- B UE ext o62Lson tucks x15GTB rows 2t36Badbpy- STM along c-spine paraspinals, UT, and levator [...] in rotation and SB without increase in pain.Jury Consultant Goals: LTG to be met by 06/08/18 as discussed with and agreed upon by patient:1. Patient to be independent with progressive HEP in order to allow for continued strength,flexib ility, and functional training after skilled care2. Pt [...] Treatment Time: 10Total Treatment Time: 25 PT TreatmentNoKindred Healthcare Progress Noteson 56-04-8019Ydtbxom [facility] Department: [facility]ITALAB THERAPYProgress Notes by Berlin Valle PTA at 04/21/2018 9:00 AMAuthor: Berlin Valle PTAService: (none)Author Type: Physical Therapy AssistantFiled: 04/21/2018 9:46 AMEncounter Date: 04/21/2018Status: SignedEditor: Berlin Valle PTA (Social Insurance Specialist)Physical Therapy Treatment NoteVisit Number: 4Encounter diagnosis:ICD-10-CM1.CifdhaeciaxB49.22.Headache in back of qazrS37Dqtwfme Medical Diagnosis: CervicalgiaSUBJECTIVE:Compliance with HEP: Pt states being compliant with HEP.Patient reported improvements: Pt reports not having a headache for the past 2 days.Patient reported continued functional deficits: Pt cont's to have constant neck painand haslimited neck motions at times with an audible pop .Pain Location: NeckPain Score: 5-7/10OBJECTIVE / BODY FUNCTIONS AND PERFORMANCE SKILLS:SPINE:Cervical ROM:ACTIVEPASSIVERotation Right:68Rotation Left:68 post manualSide Bending Right:27Side Bending Left:27Today's treatment: Therapeutic exercise (as per flowsheet) range of motion and strength Post warmup on UBE to increase blood flow, reviewed HEP for technique and instruction for progression inreps and resistance prn. and Manual TherapyTo improve ROM, joint mobility/nutrition, tissuepliability, and relieve symptoms.Onset Date: 2 weeks agoSurgical Date: NAPlan of care due:06/08/18Progress Report due 05/09/18Insurance(s): [employer] medicareAuthorized visits: 30Precautions: NA.Date: 04/08/18Visit: 1 /Date: 04/10/18Visit: 2 /Date: 04/16/18Visit:3 /Date: 04/21/18Visit: 4 /Date:Visit: /PT EVALUBE, L1, x6'UBE, L1, x6'UBE, L1, x6'Suboccipital releaseSTM to paraspinalsDoorway stretch 1x30'' (d/c due to shoulder pain)UT stretch 3x15 BManual- Cont/relax for neck rotation- STM to scalenes- G2-3 MWM cervical bilateral glides with SB- Suboccipital r eleasePt is slightly resistant to therex, expresses his opinions about onlyfocusing on txn, but agreed to manual therapy/cervical strengtheningManual UT stretch x2 30'Manual Levator stretch x2 30'Suboccipital releaseSTM to paraspinalsLevator scap stretch 3x15 BHEP review of chin tucks and discussion onincreasing theraband resistance prnManual UT stretch 3x 30'Green t-band- Scap retract x15- B UEext m44Vxyv tucks x15GTB rows 1s78Qllqzj- STM along c-spine paraspinals, UT, and levator [...] well without c/o pain or symptom increase, pre sentingwith good demo of ex's performed this tx post min cues to improve technique.New Category to Report? (if previous visit, category was discharged):NoContinued functional deficits in activities and participation: Pt cont's to report withlimitations in neck mobility due to pain and joint stiffnes s, resulting in headaches; symptoms aredecreasing.OP THERAPY GOALS:Short Term Goals: STG to be met by 8/1/18 as discussed with and agreed upon by patient:1. Patient to be compliant with progressive HEP2. Pt will report 3 days without headaches.3. Pt will demonstrate full cervical ROM in rotation and SB without increase in pain.Longterm Goals: LTG to be met by 06/08/18 as discussed with and agreedupon by patient:1. Patient to be independent with [...] Treatment Time: 17Total Treatment Time: 32 PT TreatmentNoKindred HealthcareProgress Noteson 04-16-2018 Protein mass concEncounter Department: [facility]ITALAB THERAPYProgress Notes by Collette Pisano PTA at 04/16/20189:00 AMAuthor: Collette Pisano PTAService: (none)Author Type: Physical Therapy AssistantFiled: 04/16/2018 12:11 PMEncounter Date: 04/16/2018Status: SignedEditor: Collette Pisano PTA (Physical Therapy As sistant)Physical Therapy Treatment NoteVisit Number: 3Encounter diagnosis:ICD-10-CM1.AbbkdqdqexoC77.22.Headache in back of xxecR10Mcikiwj Medical Diagnosis: CervicalgiaSUBJECTIVE:Compliance with HEP:Patient reports compliance with HEP.Patient reported improvements: Patient reports a decrease in headache frequency and intensity.Patient reported continued functional deficits: Patient continues to experience constant neck painwith headaches that occur approximately every other day.Pain Location: NeckPain Score: 7/10OBJECTIVE / BODY FUNCTIONS AND PERFORMANCE SKILLS:Today's treatment: Therapeuticexercise (as per flowsheet) range of motion and strength -Initiated treatment with warm up on UBE for increased blood flow. Performed interscap strengtheningwith green t-band including scap retract and B UE ext. and Manual Therapy - Performed STM alongc-spine paraspinals, UT, and levator scap regions followed by suboccipital release for pain/symptomreduction.Traction - Cervical traction performedat # for pain/symptom reduction.Onset Date: 2 weeks [...] t-band- Scap retract x15- B UE ext d14Dotj tucks x15GTB rows 3l52Ldidmc- STM along c-spine paraspinals, UT, and levator [...] symptoms with traction treatment.New Category to Report? (ifprevious visit, category was discharged):NoContinued functional deficits in activities and participation: Patient continues to experienceconstant neck pain with headaches that occur approximately every other day.OP THERAPY GOALS:Short Term Goals: STG to be met by 04/08/18 as discussed with and agreedupon by patient:1. Patient to be compliant with progressive HEP2. Pt will report 3 days without headaches.3. Pt will demonstrate full cervical ROM in rotation and SB without increase in pain.Longterm Goals: LTG to be met by 06/08/18 as discussed with and agreed upon by patient:1. Patient to be indep endent with progressive HEP in order to allow [...] Treatment Time: 28Total Treatment Time: 43 PT TreatmentNormTrinity Health System Twin City Medical CenterProgress Noteson 12-90-3726FbxvlmsMount Ascutney Hospital Department: [facility]ITALAB THERAPYProgress Notes by Berlin Valle PTA at 04/10/2018 9:00 AMAuthor: Berlin Valle PTAService: (none)Author Type: Physical Therapy AssistantFiled: 04/10/2018 10:21 AMEncounter Date: 04/10/2018Status: SignedEditor: Berlin Valle PTA (Social Insurance Specialist)Physical Therapy Treatment NoteVisit Number: 2Encounter diagnosis:ICD-10-CM1.NixrauagbrfE71.22.Headache in back of gufhY95Kzehcya Medical Diagnosis: CervicalgiaSUBJECTIVE:Compliance with HEP: Pt reports [...] PT goals and Manual Therapy toimprove joint pl iability and reduce symptoms.Traction to relieve pain/symptoms, con't with increased pull.Onset Date: 2 weeks agoSurgical Date: NAPlan of care due:06/08/18Progress Report due 05/09/18Insurance(s): [employer] medicareAuthorized visits: 30Precautions: NA.Date: 04/08/18Visit: 1 /Date: 04/10/18Visit: 2 /Date:Visit : /Date:Visit: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 06/23/2025[facility] Immunizations Immunization DateImmunizationNotesCare OugilcdmZsxyvmfr42-72-1106Igjrrveeu, injectable, Madin Phoenix Canine Kidney, preservative free, quadrivalentPaul Biedenbach DO Work Phone: [facility] Medical CenterFwbjsiqjoc12-51-7452iebdhwd toxoid, reduced diphtheria toxoid, and acellular pertussis vaccine, adsorbedPaul Biedenbach DO Work Phone: [facility] Medical CenterIpakefpvum07-13-5507hgolvpknk virus vaccine, unspecified formulationOttumwa Regional Health Center09-15-2021influenza, high dose seasonal, preservative-freeNicholDepartment of Veterans Affairs [facility]09-15-2021 influenza virus vaccine, unspecified formulationNikunj Borjas MD Work Phone: [facility] [employer] Zzakkj95-11-0297Nchcir Purple Cap SARS-CoV-2 VaccinationNicAurora Valley View Medical Center01-13-2021Pfizer Purple Cap SARS-CoV-2 VaccinationNicAurora Valley View Medical Center Payers DatePayer CategoryPayerPolicy [id number]-pay2023Medicare (Managed Care)[employer] MEDICARE ADVANTAGE Member Subscriber Plan / Payer (Effective 2022-Present) Name: Nikunj Causey Relation to Subscriber: Self Name: Nikunj Causey Payer ID: [id number] (NAIC) Type: Not on file Address: [address] [place], [place] [id number] 2020Medicare [id number] 2020Medicare [facility] MEDICARE Member Subscriber Plan / Payer (Effective 2019-Present) Name: Nikunj Causey Relation to Subscriber: Self Name: PadillaNikunj Payer ID: [id number] (NAIC) Type: Not on file Address: [address] [place] [id number] 2..1.374994.3.57[id number] 2..1.664012.3.57[id number] 2..1.042296.3.57[id number] 2..1.025155.3.57[id number] 2..1.097306.3.57[id number] 2..1.320044.3.57[id number] 2.16.840.1.140610.3.57[id number] 2.16.840.1.162111.3.57[id number] 2.16.840.1.529294.3.57[id number] 2.16.840.1.245374.3.57[id number] 2.16.840.1.534490.3.579.2.1259 [id number] 2.16.840.1.017893.3.579.2.531 Social History DateTypeDetailFacilityStart: 03-15-2024 End: 59-60-4945Sxezla alcohol useSocial alcohol useProWestern Reserve Hospital SystemStart: 03-15-2024 End: 35-00-5024Qedxudz smoking status NHISEx-smokerNOLA HealthcareStart: 09-08-1974 End: 74-03-7337Vsdzizt of tobacco useCurrent smokerProWestern Reserve Hospital SystemStart: 09-08-1974 End: 08-39-6989Wiqzgia of tobacco useCigarette SmokerNOLA HealthcareStart: 05-20-2022 End: 82-46-1535Yieyusm use and exposureSmokeless tobacco non-userSt. Vincent Hospital SystemStart: 03-15-2024 End: 41-43-1949Cpgzbcvla beverage intakeLifetime non-drinker (finding)[facility] HealthcareStart: 03-15-2024 End: 65-83-1527Dysvdzp use panelSt. Vincent Hospital SystemStart: 55-51-5569Fpgnlnj CommentocassionallyNOLA HealthcareStart: 75-41-0320Bod assigned at birthB[facility] HealthcareStart: 44-70-5329Dyxzwm identityIdentifies as male gender (finding) [facility] HealthcareStart: 07-29-2023 End: 45-11-5893Fupncvbqm beverage intakeEx-drinker (finding)[facility] Hospitaltart: 92-34-7631Zjosgr the past 12 months we worried whether our food would run out before we got money to buy more.Never [facility] Start: 81-77-4193Fgefcmr CommentocassionalVidant Pungo Hospitaltart: 74-96-4530Shr assigned at birthNot on fileVidant Pungo Hospitaltart: 83-30-8547BxdJwvt (finding)[facility] Clinical Notes 04-30-2024 to 06-23-2025 Note Date & AvzrZnreDduhaiit25-01-4042 History of Present illness Narrative* Yuri Rodriguez, DPM - 06/23/2025 9:30 AM EDT Patient: Nikunj Causey : 1960 PCP: Mario [...] Insecurity: No Food Insecurity (06/24/2024) [facility] Hunger Screening Within the past [...] non palpable pedal pulses bilaterally NEURO: 5.07 Kinsman Anjum monofilament test intact to digits and [...] shoe gear. Patient have SERVANDO PVRs at [facility] for possible procedure and nail avulsions in the future with follow up post testing Yuri Rodriguez DPM [1] Allergies Allergen Reactions Gluten Meal GI intolerance Isosorbide Nitrate Headache [2] Past Medical History: Diagnosis Date Anemia Arthritis 08/16/2024 Atrial fibrillation (HCC) Cardiomyopathy, ischemic 08/16/2024 Celiac disease (HCC) 03/04/2019 Centrilobular emphysema (HCC) 2025 Noted by [facility] last documented on [id number] Cervicalgia 04/08/2018 Chronic anticoagulation 08/16/2024 Chronic obstructive lung disease (HCC) 01/22/2018 Chronic obstructive pulmonary disease (COPD) ([facility]) Chronic systolic heart failure (HCC) 08/16/2024 Class 2 severe obesity due to excess calories with serious comorbidity and body mass index (BMI) of35.0 to 35.9 in adult 08/16/2024 Coronary artery disease Emphysema of lung (HCC) Erectile dysfunction 08/16/2024 H/O hernia repair Headache in back of head 04/08/2018 Hypertensive heart disease with heart failure ([facility]) 2025 Noted by [facility] last documented on 20241001 Mixed hyperlipidemia 06/24/2024 Pain in wrist 08/16/2024 Peripheral polyneuropathy 06/27/2023 Pneumonia Primary hypertension 06/24/2024 Pure hypercholesterolemia 08/16/2024 Rheumatoid arthritis ([facility]) Sinus tachycardia 01/22/2018 [3] Current Outpatient Medications: [...] time, Disp: , Rfl: documented in this encounterMer[facility], formerly [facility]. [facility]'s Medical CenterCrxiotzmrh07-53-5246 Hospital Discharge instructionsAmbulatory Orders* Referral to Pain Management Time Frame: 06/14/25, Location: None Selected [facility] Work Phone: 1(762) 282-519510-07-2025 Evaluation note* Diagnosis Onset Date Resolution Status Admit Date Paresthesias acuteOctober 2024 11:34amCarpal tunnel syndrome, leftchronicOctober 2024 11:34amDDD (degenerative disc disease), lumbarchronicOctober 2024 11:34amLumbosacral radiculopathychronicOctober 2024 11:34amNeck painchronic October 2024 11:34amTremorchronicOctober 2024 11:34am [facility] Work Phone: 1(370) 740-827009-19-2025 [facility] Reason for [...] procedure, paroxysmal atrial fibrillation, s/p ablation in [place], thoracic aortic aneurysm, left ventricle dysfunction, hypertension, hyperlipidemia COPD, prior tobacco and alcohol abuse He used to follow with [facility] cardiology. He states that overall [...] once daily as dire (more content not included)...[facility]08-08-2025 History of Present illness Narrative* Tree Krishnan DO - 04/15/2025 9:30 AM EDT Subjective [...] tympanostomy tube with replacement documented in this encounterMercy Hospital [facility], formerly [facility]. [facility] Medical CenterVimqjmdnxf76-84-7948 [facility] Note Reason for [...] procedure, paroxysmal atrial fibrillation, s/p ablation in [place], thoracic aortic aneurysm, left ventricle dysfunction, hypertension, hyperlipidemia COPD, prior tobacco and alcohol abuse He used to follow with [facility] cardiology. He states that overall [...] Disp: , Rfl: theop (more content not included)...[facility] 2025 History of Present illness Narrative* Tree [...] family physician and subspecialist documented in this encounterMercy Hospital [facility], formerly [facility]. [facility]'s Medical CenterIezbfxcenv57-26-4822 [facility] Note Reason for [...] procedure, paroxysmal atrial fibrillation, s/p ablation in [place], thoracic aortic aneurysm, left ventricle dysfunction, hypertension, hyperlipidemia COPD, prior tobacco and alcohol abuse He used to follow with [facility] cardiology. He states that overall [...] well developed, in no (more content not included)...[facility]04-21-2025 History of Present illness Narrative* GUILLERMO Abdul - 12/27/2024 10:20 AM EDT Subjective Nikunj Causey is a 64 y.o. year old male Chief Complaint Patient presents with Back Pain Past Medical History: Diagnosis Date Anemia Atrial fibrillation (CMS/HCC) Celiac disease (CMS/HCC) 03/04/2019 Cervicalgia 04/08/2018 Chronic obstructive lung disease (CMS/HCC) 01/22/2018 Chronic obstructive pulmonary disease (COPD) ([facility]/HCC) Coronary artery disease ([facility]/HCC) Emphysema of lung ([facility]/HCC) H/O hernia repair Headache in back of head 04/08/2018 Peripheral polyneuropathy 06/27/2023 Pneumonia Rheumatoid arthritis ([facility]/HCC) Sinus tachycardia 01/22/2018 Past Surgical History: Procedure [...] triceps, wrist extensors, wrist extensors, wrist flexor, 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 LUE Strength deltoid, biceps, triceps, wrist extensors, wrist extensors, wrist flexor, 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 RLE Strength illopsoas, quadriceps, tibialis [...] new or worsening symptoms documented in this encounterMercy Hospital [facility], formerly St. [facility]'s Medical CenterBnccaevtxi60-93-8652 Telephone encounter Note* Telephone Encounter - Leanne Mancia MA - 12/20/2024 4:44 PM EDT Patient is in need of refill, appt had to be rescheduled due to provider being out. Please send to [facility] in [place] [facility] CenterJiwfvjgead75-84-2697 Miscellaneous Notes* Telephone Encounter - Leanne Mancia MA - 12/20/2024 4:44 PM EDT Patient is in need of refill, appt had to be rescheduled due to provider being out. Please send to [facility] in [place] documented in this encounterMercy Hospital [facility], formerly St. [facility] Medical CenterJdrithzmkt63-41-1182 Miscellaneous Notes* Telephone Encounter - Arti Mauro RN - 11/25/2024 9:46 AM EDT Pt calls to let us know he is switching hot mill observer to a group in [place] because he does not like seeing a different doctor every time he comes here. Explained to him that we do try to keep pt's with same doc but it does not always work out that way. Pt understood but has already seen the the other group. documented in this encounterCinc[facility] Svtfzx98-68-5521 Telephone encounter Note* Telephone Encounter - Arti Mauro RN - 11/25/2024 9:46 AM EDT Pt calls to let us know he is switching hot mill observer to a group in [place] because he does not like seeing a different doctor every time he comes here. Explained to him that we do try to keep pt's with same doc but it does not always work out that way. Pt understood but has already seen the the other group. [facility] [id number] Telephone encounter Note* Telephone Encounter - Yuri Chapa MA - 09/09/2024 8:59 AM EST 06/09/2024 Continue Lyrica 150mg PO TID for neuropathic pain Oarrs reviewed. Last filled 05/17/2024 for 90 day supply. Due 08/15/2024 [facility] CenterAindyeeayr36-62-1475 Miscellaneous Notes* Telephone Encounter - Yuri Chapa MA - 09/09/2024 8:59 AM EST 06/09/2024 Continue Lyrica 150mg PO TID for neuropathic pain [facility]arrs reviewed. Last filled 05/17/2024 for 90 day supply. Due 08/15/2024 documented in this encounterMercy Hospital South, formerly St. [facility]'s Medical CenterLytijdkaxq08-25-4760 NoteB[facility]v Office [facility]iology Clinic Note Reason for cardiology consult: Establish new hot mill observer, CAD, congestive heart failure, ascending aortic aneurysm Chief Complaint: Dyspnea on exertion HPI: Nikunj Causey is a 64 y.o. male with history of coronary artery disease and coronary artery bypass surgery and maze procedure, paroxysmal atrial fibrillation, s/p ablation in [place], thoracic aortic aneurysm, left ventricle dysfunction, hypertension, hyperlipidemia COPD, prior tobacco and alcohol abuse He used to follow with [facility] cardiology. He states that overall [...] rubs, or gallops. RESPIR (more content not included)...[facility] 07-29-2024 Miscellaneous Notes* Telephone Encounter - Diana Munguia LPN - 07/29/2024 9:20 AM EST [facility] 06/24/24 documented in this encounterOhioHealth [facility]11-21-2024 Telephone encounter Note* Telephone Encounter - Diana Munguia LPN - 07/29/2024 9:20 AM EST [facility] 06/24/24 [facility]10-17-2024 History of Present illness Narrative* Gillian Taylor MD - 06/24/2024 2:00 PM EDT Nikunj Causey Date of visit: 06/24/2024 Date of : 1960 Age: 64 y.o. Patient Active Problem List Diagnosis Coronary artery disease involving coronary bypass graft of council heart without angina pectoris Paroxysmal atrial fibrillation [...] 65 mg by mouth daily with breakfast. liuixtvpkdt-tzptdjmiq-dptkehhh (TRELEGY ELLIPTA) 200-62.5-25 mcg blister with device [...] atrial fibrillation despite the reported ablation in [place], continue on anticoagulation.We discussed this again today [...] History: Diagnosis Date Arthritis Ascending aortic aneurysm ([facility]-HCC) Atrial fibrillation ([facility]) Celiac disease COPD (chronic obstructive pulmonary disease) ([facility]) Coronary artery disease with history of coronary [...] artery disease involving coronary bypass graft of council heart without angina pectoris - POCT EKG - CT angiogram chest; Future - Echo complete W/O contrast; Future 2. Paroxysmal atrial fibrillation (CMS-HCC) - CBC; Future 3. Primary hypertension - CMP; Future 4. Mixed hyperlipidemia - Lipid panel; Future 5. Left ventricular dysfunction 1. ASCVD without angina --history of CABG with Maze --[facility] to the LAD 2015 in [place] 2. Cardiomyopathy -ischemic versus related to alcohol [...] about 1 year (around 06/24/2025). PCP: GENE LOERNZO Referring Physician: Kacie Del Real MD [address] [place] [address] documented in this encounterCleveland Clinic Ak[facility]odi HospitalHyperlite Mountain Gear Formerly Oakwood HospitalOieemt35-49-4054 Instructions* Patient Instructions* Gillian Taylor MD - 06/24/2024 2:00 PM EDT Laboratory studies CTA of the aorta Echocardiogram documented in this encounterCleveland Clinic Akron [facility]odi HospitalHyperlite Mountain Gear Formerly Oakwood HospitalXrvvkl24-70-7127 Miscellaneous Notes* Telephone Encounter - Juana Hercules CMA - 06/23/2024 10:05 AM EDT Called patient to remind them to bring their most current copy of their medication list with them to their appt. Patient verbalizes understanding. documented in this encounterCleveland Clinic Akron [facility] Lodi HospitalHyperlite Mountain Gear Formerly Oakwood HospitalYelkge89-25-3199 Telephone encounter Note* Telephone Encounter - Juana Hercules CMA - 06/23/2024 10:05 AM EDT Called patient to remind them to bring their most current copy of their medication list with them to their appt. Patient verbalizes understanding. [facility] [employer] [id number] History of Present illness Narrative* GUILLERMO Abdul - 06/09/2024 11:20 AM EDT Subjective Nikunj Causey is a 64 y.o. year old male Chief Complaint Patient presents with Back Pain Neck Pain Tremors Past Medical History: Diagnosis Date Anemia Atrial fibrillation ([facility]) Celiac disease ([facility]) 03/04/2019 Cervicalgia 04/08/2018 Chronic obstructive lung disease ([facility]) 01/22/2018 Chronic obstructive pulmonary disease (COPD) ([facility]) Coronary artery disease ([facility]) Emphysema of lung ([facility]) H/O hernia repair Headache in back of head 04/08/2018 Peripheral polyneuropathy 06/27/2023 Pneumonia Rheumatoid arthritis ([facility]) Sinus tachycardia 01/22/2018 Past Surgical History: Procedure [...] handles -admits hand weakness -some trouble with 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 LUE Strength deltoid, biceps, triceps, wrist extensors, wrist extensors, wrist flexor, 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 RLE Strength illopsoas, quadriceps, tibialis [...] new or worsening symptoms documented in this [facility]10-01-2024 History of Present illness Narrative* Vera Zuñiga MA - 06/08/2024 12:15 PM EDT Images from the original note were not included. Reason for Appointment: EMG Patient: Nikunj Causey : 1960 EMG Computer: Flypad Referring Physician: Preet Bill PA-C EMG: WALTER physician executive: Vera Zuñiga CMA Office Location: [place] Reason for EMG: c/o pain and paresthesia in the arm from the shoulder down. No Hx of DM, takes Eliquis and ASA Comments: Procedure explained to the patient who expressed understanding. documented in this [facility]09-06-2024 Miscellaneous Notes* Telephone Encounter - Juana Hercules CMA - 05/14/2024 10:40 AM EDT Phoned pt to advise that appt scheduled for 05/17/2024 is the date that his EM will be sent out andis NOT an actual appt. Verbalized understanding. documented in this [facility]09-06-2024 Telephone encounter Note* Telephone Encounter - Juana Hercules CMA - 05/14/2024 10:40 AM EDT Phoned pt to advise that appt scheduled for 05/17/2024 is the date that his EM will be sent out andis NOT an actual appt. Verbalized understanding. [facility] VideoBurstCsmfml50-89-5561 Miscellaneous Notes* Telephone Encounter - Ashlee Lim RN - 04/30/2024 10:24 AM EDT BLACKENER, Patient called and said that he has not been in a-fib since 2018 HX Coronary artery disease s/p CABG x 1 ([facility]) 2016 in [place] Paroxysmal atrial fibrillation (diagnosed in 1998); Maze at time of open heart surgery Thoracic aortic aneurysm, 47 mm 05/2022 Hypertension Frequent PVCs, 6% burden on most recent monitoring 06/2023 History of NSVT Chronic hypoxic respiratory failure COPD Patient said that Eliquis is not affordable for him and would like to know if since he has not beenin a-fib [facility] 2017, is there a chance he would be able to dc Eliquis at some point. Please advise. Thank you! 3 boxes of Eliquis in sample cabinet for patient bulk picker. * Telephone Encounter - Emely Cantu MD [...] patient to call us back to review BLACKENER's response. documented in this encounterCincinnati [facility] VideoBurstKyzfjm01-22-0640 Telephone encounter Note* Telephone Encounter - Ashlee Lim RN - 04/30/2024 10:24 AM EDT BLACKENER, Patient called and said that he has not been in a-fib since 2018 HX Coronary artery disease s/p CABG x 1 ([facility]) 2016 in [place] Paroxysmal atrial fibrillation (diagnosed in 1998); Maze at time of open heart surgery Thoracic aortic aneurysm, 47 mm 05/2022 Hypertension Frequent PVCs, 6% burden on most recent monitoring 06/2023 History of NSVT Chronic hypoxic respiratory failure COPD Patient said that Eliquis is not affordable for him and would like to know if since he has not beenin a-fib [facility] 2017, is there a chance he would be able to dc Eliquis at some point. Please advise. Thank you! 3 boxes of Eliquis in sample cabinet for patient bulk picker. [facility] HospitalOptherion08-23-2024 Telephone encounter Note* Telephone Encounter - Emely [...] Would continue Eliquis in the meantime. [facility] HospitalOptherion08-23-2024 Telephone encounter Note* Telephone Encounter - Ashlee Lim RN - 04/30/2024 10:24 AM EDT Amml asking patient to call us back to review BLACKENER's response. [facility] HospitalKinderLab Robotics [facility]Evaluation [facility]* Diagnosis Carpal tunnel syndrome of left [...] or radiculitis, unspecified documented in this encounter [facility] HealthcareEvaluation note* Diagnosis Coronary artery disease involving coronary bypass graft of council heart without angina pectoris Hx of CABG Postsurgical aortocoronary bypass status Paroxysmal atrial fibrillation (CMS-HCC) Atrial fibrillation Aneurysm of ascending aorta without rupture (CMS-HCC) History of maze procedure documented in this encounter [facility] SystemEvaluation note* Diagnosis Coronary artery disease involving coronary bypass graft of council heart without angina pectoris Hx of CABG Postsurgical aortocoronary bypass status Paroxysmal atrial fibrillation (CMS-HCC) Atrial fibrillation Aneurysm of ascending aorta without rupture (CMS-HCC) History of maze procedure [facility]* Diagnosis Coronary artery disease involving coronary bypass graft of council heart without angina pectoris Paroxysmal atrial fibrillation (CMS-HCC) Atrial fibrillation Aneurysm of ascending aorta without rupture (CMS-HCC) Hx of CABG 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 [facility] Diagnosis Coronary artery disease involving coronary bypass graft of council heart without angina pectoris- Primary Paroxysmal atrial fibrillation (CMS-HCC) Atrial fibrillation Primary hypertension Unspecified essential hypertension Mixed hyperlipidemia Left ventricular dysfunction Left heart failure documented [facility] this encounter [facility]* Diagnosis Coronary artery disease involving coronary bypass graft of council heart without angina pectoris Paroxysmal atrial fibrillation (CMS-HCC) Atrial fibrillation Aneurysm of ascending aorta without rupture (CMS-HCC) Hx of CABG 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 documented [facility] Diagnosis Coronary artery disease involving coronary bypass graft of council heart without angina pectoris Hx of CABG Postsurgical aortocoronary bypass status Paroxysmal atrial fibrillation (CMS-HCC) Atrial fibrillation Aneurysm of ascending aorta without rupture (CMS-HCC) History of maze procedure documented in this encounter [facility]* Diagnosis DDD (degenerative disc [...] use of 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 documented in this encounter [facility]* Diagnosis Otorrhea of right ear- Primary Dysfunction of right eustachian tube Chronic anticoagulation Encounter for long-term (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 of 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 documented in this encounter [facility] HealthcareEvaluation noteNo assessment information availableMercy Memorial Hospital Work Phone: Evaluation note* Diagnosis PVD (peripheral vascular disease) Unspecified peripheral vascular disease Other polyneuropathy Pain due to onychomycosis of toenails of both feet Paronychia, toe, left documented in this encounter [facility] HealthcareHistory of Present illness NarrativeMrLeyla Causey is referred for consideration of LVRS. 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 He is on 3 L nasal cannula oxygen chronically. He is set to begin pulmonaryrehabilitation.[facility] Work Phone: History of Present [...] Work Phone: History of Present illness NarrativeMrLeyla CuelloPadilla is referred for consideration of LVRS. He [...] on filedocumented in this encounter [facility]Reason [facility] (narrative)No reason for referral information availableMercy Memorial Hospital Work Phone: Summary Purpose Family History No Family History Records FoundUnknown Family Member Name Dates Details Family history of cardiac di sorder: Mother, Father(V17.49, Z82.49) Status:ActiveFamily history of malignant neoplasm of breast: Mother(V16.3, Z80.3) Status:Active Unknown Family Member Name Dates Details Family history of malignant neoplasm of breast: Mother(V16.3, Z80.3) Status:ActiveFamily history of cardiac disorder: Mother, Father(V17.49, Z82.49) Status:Active Unknown Family Member Name Dates Details Family history of cardiac di sorder: Mother, Father(V17.49, Z82.49) Status:ActiveFamily history of malignant neoplasm of breast: Mother(V16.3, Z80.3) Status:Active Unknown Family Member Name Dates Details Family history of cardiac di sorder: Mother, Father(V17.49, Z82.49) Status:ActiveFamily history of malignant neoplasm of breast: Mother(V16.3, Z80.3) Status:Active Relationship Condition Age at Onset Recorded Date/T cindy mother Malignant neoplasm Unknown Heart diseaseUnknownHypertensionUnknownfatherHeart diseaseUnknown Advance Directives No Advanced Directives Records Found Advance Directive Response Recorded Date/ Time Advance Directives No June 13, 2025 3:05pm Reason for Referral SpecialtyDiagnoses / ProceduresReferred By ContactReferred To Contact Diagnoses Carpal tunnel syndrome of left wrist Procedures NVC 7-8 Nerves Aleyda Lackey MD [address] [place] [address] Referral IDStatusReasonStart DateExpiration DateVisits RequestedVisits [id number] [id number]/ Chief Complaint and Reason for Visit Chief [...] and content) DATE CREATED AUTHOR 07/04/2018 [facility] DATE CREATED AUTHOR AUTHOR'S ORGANIZ ATION 06/09/2022 [facility] DATE CREATED AUTHOR AUTHOR'S ORGANIZ ATION 06/09/2022 [employer] DATE CREATED AUTHOR AUTHOR'S ORGANIZ ATION 02/14/2023 [facility] DATE CREATED AUTHOR AUTHOR'S ORGANIZ ATION 07/06/2024 [facility] DATE CREATED AUTHOR AUTHOR'S ORGANIZ ATION 06/16/2025 [facility] DATE CREATED AUTHOR AUTHOR'S ORGANIZ ATION 06/23/2025 [facility] DATE CREATED AUTHOR AUTHOR'S ORGANIZ ATION 06/25/2025 [facility] EPIC Care Teams (unrecognized sec tion and content) Team MemberRelationshipSpecialtyStart DateEnd Date Risa Mcnulty, PULP SCREEN OPERATOR [address] [place] [place] [address] Referring PhysicianFamily Medicine03/15/24Team MemberRelationshipSpecialtyStart DateEnd Date Risa Mcnulty NP [address] [place] [place] [address] Referring Physicianmily Medicine03/15/24Team MemberRelationshipSpecialtyStart DateEnd Date Risa Mcnulty NP [address] [place] [address] Referring Physicianmily Medicine03/15/24Team MemberRelationshipSpecialtyStart DateEnd Date Risa Mcnulty NP [address] [facility] [place] [address] Referring Physicianmily Medicine03/15/24Team MemberRelationshipSpecialtyStart DateEnd Date Risa Mcnulty NP [address] [facility] [place] [address] Referring PhysicianFamily Medicine03/15/24Team MemberRelationshipSpecialtyStart DateEnd Date Kacie Del Real MD [address] [place] [address] PCP - GeneralFamily Medicine03/22/22Team MemberRelationshipSpecialtyStart DateEnd Date Kacie Del Real MD [address] [place] [address] PCP - GeneralFamily Medicine03/22/22Team MemberRelationshipSpecialtyStart DateEnd Date Kacie Del Real MD [address] [place] [address] PCP - GeneralFamily Medicine03/22/22Team MemberRelationshipSpecialtyStart DateEnd Date Kacie Del Real MD [address] [place] [address] PCP - Generalmily Medicine03/22/22Team MemberRelationshipSpecialtyStart DateEnd Date Kacie Del Real MD [address] [place] [address] PCP - GeneralFamily Medicine03/22/22Team MemberRelationshipSpecialtyStart DateEnd Date Risa Mcnulty, TELEPHONE SALES REPRESENTATIVE-LOADING DOCK HAND [address] [facility] [place] [address] PCP - GeneralFamily Xetelaok92/17/24Team MemberRelationshipSpecialtyStart Date End Date Risa Mcnulty, TELEPHONE SALES REPRESENTATIVE-LOADING DOCK HAND [address] [place] [address] PCP - GeneralFamily Ngbsxxvs84/17/24Team MemberRelationshipSpecialtyStart Date End Date Risa Mcnulty, TELEPHONE SALES REPRESENTATIVE-LOADING DOCK HAND [address] [facility] [place] [address] PCP - GeneralFamily Iisamkza65/17/24Team MemberRelationshipSpecialtyStart Date End Date Risa Mcnulty, TELEPHONE SALES REPRESENTATIVE-LOADING DOCK HAND [address] [facility] [place] [address] PCP - GeneralFamily Rzdacqlf83/17/24Team MemberRelationshipSpecialtyStart Date End Date Risa Mcnulty NP [address] [facility] [place] [address] Referring PhysicianJeff Davis Hospital03/15/24Team MemberRelationshipSpecialtyStart DateEnd Date Risa Mcnulty NP [address] [facility] [place] [address] Referring PhysicianJeff Davis Hospital03/15/24Team MemberRelationshipSpecialtyStart DateEnd Date Risa Mcnulty NP [address] [facility] [place] [address] Referring PhysicianHudson Hospital Medicine03/15/24Team MemberRelationshipSpecialtyStart DateEnd Date Risa Mcnulty NP [address] [facility] [place] [address] Referring PhysicianHudson Hospital Medicine03/15/24 Team Status: Active Member Role Status Dates Mario Zayas MD Primary Care Provider Active Team Status: Inactive Member Role Status Dates Danni Mccoy TELEPHONE SALES REPRESENTATIVE-LOADING DOCK HAND-C Attending Provider Active Start: June 14, 2025 End: June 14, 2025Shawna Bricemountain view hospitalnicolas Care ProviderActiveStart: June 14, 2025 End: June 14, 2025 Team Status: Inactive Member Role Status Dates Mario Zayas MD Attending Provider Active Sta rt: June 14, 2025 End: June 14, 2025Team MemberRelationshipSpecialtyStart DateEnd Date Mario Zayas MD [address] [place] [address] PCP - GeneralFamily Dblwubzv12/16/25 Risa Mcnulty NP [address] [place] [place] [address] Referring PhysicianFamily Medicine03/15/24Team MemberRelationshipSpecialtyStart DateEnd Mario Zayas MD [address] [place] [address] PCP - Generalmily Knhqakll55/16/25 Risa Mcnulty NP [address] [place] [address] Referring PhysicianHudson Hospital Medicine03/15/24 Reason for Visit (unrecogniz ed section and content) SpecialtyDiagnoses / ProceduresReferred By ContactReferred To ContactNeurology Diagnoses LUE EMG paresthesias of hand, numbness and tingling, ref by Wei Bill PACr20.2 Procedures [place] NERVE CONDUCTION STUDIES 9-10 STUDIES [place] NEEDLE EMG EA EXTREMTY W/PARASPINL [place] [address] [place] [address] Aleyda Lackey MD [address] [place] [address] Referral IDStatusReasonStart DateExpiration DateVisits RequestedVisits [id number] Perform Procedure [id number] PainNeck PainTremorsReasonCommentsMed RefillReasonOnset DateCommentsMed [id number] DateCommentsMed Vtsjdy624ReasonCommentsFollow-upEST PT FU EM RESULTSReasonOnset Date Commentstransfering care11/25/2024ReasonOnset DateCommentsMed Vnrhlk8812/20/2024 ReasonCommentsBack PainReasonCommentsEar Tube CheckRight ear painReasonComments Ear Problem3 week coco ear drainageReasonCommentsIngrown Toenail Goals (unrecognized section and content) Goals [...] BE BASED ON THE PRIMARY CLINICAL RECORDS. [facility] [employer] [facility]. provides no warranty or guarantee of the accuracy or completeness of information in this document.
--- OUTSIDE RECORDS SUMMARY | 2025-06-30 12:42 | XMS_ITS | Encounter Summary ---
Author Organization [facility] Address [address] [place] [address] Care Team Providers Care Grader Patrol Name Role Phone Mario Zayas MD Primary Care Provider [phone] Encounter Details DateTypeDepartmentCare Team (Latest Contact Info)Turpdvehiet56/14/2025Results Follow-Up [facility] [address] [place] [id number] Dorinda Diaz MD [address] [place] [address] Cardiac catheterization Social History Tobacco UseTypesPacks/DayYears UsedDateSmoking Tobacco: FormerCigarettes Smokeless Tobacco: NeverAlcohol UseStandard Drinks/WeekCommentsYes0 (1 standard drink = 0.6 oz pure alcohol)occasionalSex and Gender InformationValueDate RecordedSex Assigned at DwdlmSgza42/05/2025 3:26 PM EDTLegal FelDgqf01/15/2024 2:46 PM ESTGender GeydqrkrInvx56/05/2025 3:26 PM EDTSexual Orientation Heterosexual or Gdppxgec26/05/2025 3:26 PM EDTdocumented as of this encounter Functional Status * BPAnswerDate of XndnqoliotMipahc52/56005/27/2025 11:01 AM Tari Rangel MA * PulseAnswerDate of FyhnziocwwLwgnqx6211/19/2025 11:01 AM Tari Rangel MA * Pain Assessment TimerQuestionAnswerDate of AssessmentAuthorRestart Pain Assessment NionkCeo65/14/2025 3:45 PM Flaca Nunn RN * Pain AssessmentQuestionAnswerDate of AssessmentAuthorPain AssessmentNo/denies pain04/21/2025 3:45 PM Flaca Nunn RN * Patient PositionAnswerDate of PpihtukvilDkkpbbQkeqlxz00/19/2025 11:01 AM EDT Tari Nevarez MA * BPAnswerDate of YipxfgzjplIsiqzu38/56005/27/2025 11:01 AM Tari Rangel MA * PulseAnswerDate of LbpekolfmiMlgbwv2005/19/2025 11:01 AM Tari Rangel MA * CjM6HzamefYaep of QggtwftsbcGgkspb9094/19/2025 11:01 AM Tari Rangel MA * QuestionAnswerDate of AssessmentAuthorPulse rate from Plethysmogram (bpm)70 04/21/2025 3:45 PM Flaca Nunn RN * Vital SignsQuestionAnswerDate of KulrtdkwcjXsltfzTpei5933/14/2025 3:45 PM EDT Flaca Roblero RNArterial Line MAP 1 (mmHg)7304/21/2025 3:15 PM Flaca Nunn RN MAP (mmHg)85004/21/2025 3:45 PM Flaca Nunn RN * Peripheral VascularQuestionAnswerDate of AssessmentAuthorPulsesLeft pedal;Right pedal;Left posterior tibial;Right posterior mkptev9604/21/2025 10:47 AM Carolin Lynn RNEdemaRight lower extremity;Left lower extremity 04/21/2025 10:47 AM Carolin Lynn RN * RLE Neurovascular AssessmentQuestionAnswerDate of AssessmentAuthorRLE Edema+1 04/21/2025 10:47 AM Carolin Lynn RNRight Posterior Tibial Pulse+1 04/21/2025 10:47 AM Carolin Lynn RNRight Pedal Pulse+ 10:47 AM Carolin Lynn RN * LLE Neurovascular AssessmentQuestionAnswerDate of AssessmentAuthorLLE Edema+1 04/21/2025 10:47 AM Carolin Lynn RNLeft Posterior Tibial Pulse+1 04/21/2025 10:47 AM Carolin Lynn RNLeft Pedal Pulse+ 10:47 AM Carolin Lynn RN * BP LocationAnswerDate of AssessmentAuthorLeft arm05/27/2025 11:01 AM EDT Tari Nevarez MA * RespiratoryQuestionAnswerDate of AssessmentAuthorBilateral Breath Sounds Qtlsgyodmm21/14/2025 10:47 AM Carolin Lynn RNRespiratory PatternNormal 04/21/2025 10:47 AM Carolin Lynn RNRespiratory EmnlnwUrzxadz69/14/2025 10:47 AM Carolin Lynn RNRespiratory Depth/ZdxewoOatjvto35/14/2025 10:47 AM Carolin Lynn RNBreath SoundsBilateral breath pogxkd1304/21/2025 10:47 AM Carolin Lynn RN * NeurologicalQuestionAnswerDate of AssessmentAuthorLevel of ConsciousnessAlert 04/21/2025 10:47 AM Carolin Lynn RNOrientation LevelOriented X 10:47 AM Carolin Lynn RNCognitionAppropriate xoxjfwdvm86/14/2025 10:47 AM Carolin Lynn RNSpeechClear04/21/2025 10:47 AM Carolin Lynn RN * Pain AssessmentQuestionAnswerDate of AssessmentAuthorPain AssessmentNo/denies pain04/21/2025 3:45 PM Flaca Nunn RN * [place] Suicide Severity Rating ScaleQuestionAnswerDate of AssessmentAuthor1. Have you wished you were or wished you could go to sleep and not wake up? No04/21/2025 10:48 AM Carolin Lynn RN2. Have you actually had any thoughts of killing yourself?No04/21/2025 10:48 AM Carolin Lynn RN6. Have you ever done anything, started to do anything, or prepared to do anything to end your life?No04/21/2025 10:48 AM Carolin Lynn RN * Risk of SuicideAnswerDate of AssessmentAuthorNo Risk04/21/2025 10:48 AM EDT Carolin Felix RN * Patient PositionAnswerDate of BnudpplofbUsoihlJnobtqt08/19/2025 11:01 AM EDT Tari Nevarez MA * Modified AldreteQuestionAnswerDate of LssvchxicaKuyxphYvwhgcvi876/14/2025 4:01 PM Flaca Nunn RNRespiration 4:01 PM Flaca Nunn RN Qjroxvmsdyt545/14/2025 4:01 PM Flaca Nunn RNHMAbzbvbnzxngka894/14/2025 4:01 PM Flaca Nunn RNOxygen Uklrkqzbcl574/14/2025 4:01 PM Flaca Nunn RN Modified Pamela Cnnne98504/21/2025 4:01 PM Flaca Nunn RN documented as of this encounter Mental Status * [place] Agitation Sedation ScaleQuestionAnswerEntry DateAuthorRichmond Agitation Sedation Scale (RASS)- 1:54 PM Meng Osullivan RN * Modified AldreteQuestionAnswerEntry HbvcKckcekJdxtlnsg700/14/2025 4:01 PM EDT Flaca Roblero RNQRNffbfhxfeqp259/14/2025 4:01 PM Flaca Nunn RNCirculation2 04/21/2025 4:01 PM Flaca Nunn RNJIUvlplywphirxb819/14/2025 4:01 PM Flaca Nunn RNOxygen Jnvfkqxijk922/14/2025 4:01 PM Flaca Nunn RNModified Pamela Soxms81104/21/2025 4:01 PM Flaca Nunn RN documented in this encounter Plan of Treatment Not on file documented as of this encounter Visit Diagnoses Not on filedocumented in this encounter Care Teams Team MemberRelationshipSpecialtyStart DateEnd Date Mario Zayas MD [address] [facility] [place] [address] PCP - GeneralFamily Medicine02/09/25documented as of this encounter
--- OUTSIDE RECORDS SUMMARY | 2025-06-30 12:42 | XMS_ITS | Patient Health Record ---
Author Organization [facility] in [place] Address [address] [place] [address] Care Team Providers Care Liner Roll Changer Name Role Phone Andres Zayas Primary Care Provider Hu Bunn Unavailable [phone] Allergies No Known Allergies Results Component Value Reference Range Notes CBC AUTO DIFF Reviewed date:06/14/2025 04:33:29 PM Interpretation: Performing Lab: Notes/Report: [facility] , White Blood Count 8.0 4.0-11.0 10 3/uL Red Blood Count4.074.70-6.10 10 6/fVXwjfunlwlm77.314.0-18.0 g/cVCtihczjiks53.0 42.0-54.0 %Mean Corpuscular Jpxuua428.780.0-94.0 fLMean Corpuscular Hemoglobin 32.725.9-34.0 pgMean Corpuscular HGB Conc32.429.9-35.2 g/dLRed Cell Distribution Width14.711.0-15.0 %Platelet Rvfrg405874-557 10 3/uLMean Platelet Volume9.09.5- 13.5 fLNeutrophils Percent Auto79.343.0-75.0 %Lymphocytes Percent Auto10.220.5- 60.0 %Monocytes Percent Auto8.81.7-12.0 %Eosinophils Percent Auto0.60.9-7.0 % Basophils Percent Auto0.20.2-2.0 %Immature Granulocytes Pct Auto0.90.0-0.5 % Neutrophils Absolute Auto6.41.4-6.5 10 3/uLLymphocytes Absolute Auto0.81.2-3.8 10 3/uLMonocytes Absolute Auto0.70.3-0.8 10 3/uLEosinophils Absolute Auto0.10.0- 0.7 10 3/uLBasophils Absolute Auto0.00.0-0.1 10 3/uLImmature Granulocytes Abs Auto0.070.00-0.03 10 3/uLPerforming Lab:see noteML - [facility] LB PROF 14(COMP METB) Reviewed date:06/14/2025 04:33:29 PM Interpretation: Performing Lab: Notes/Report: [facility] ,Usrhva807206-859 mmol/LPotassium4.23.5-5.1 mmol/YBondfnad18503-086 mmol/LCarbon Tbtpgrr88.821.0-32.0 mmol/LAnion Gap10.7Wqnjuaq9070-178 mg/dLBlood Urea Nitrogen 29.07.0-18.0 mg/dLCreatinine0.810.70-1.30 mg/dLEstimated GFR ( Denisse>60 >=60 mL/min/1.73m 2Estimated GFR (Non- Tri>60>=60 mL/min/1.73m 2BUN Creatinine Ratio35.0Ijonvfz7.38.5-10.1 mg/dLBilirubin Total0.40.2-1.0 mg/dL Aspartate Amino Yjeltxsiapf9616-15 U/LAlanine Sraiutwfdhdpwzdy1528-85 U/L Alkaline Cskgaeablum4215-937 U/LTotal Protein6.76.4-8.2 g/dLAlbumin Level3.63.4- 5.0 g/dLGlobulin3.1Albumin Globulin Ratio1.2Performing Lab:see noteML - [facility] LBXR Chest PA and Lateral (Routine CXR) * Reviewed date:10/26/2024 03:20:38 PM Interpretation: Performing Lab: Notes/Report: BLOOD GASES BTY Reviewed date:10/27/2024 03:45:50 PM Interpretation: Performing Lab: Notes/Report: [facility] ,pH ABG7.3417.350-7.450ABG XMK326.335.0-45.0 mmHgRESULTS CALLED TO [place] [id number] ABG72.980.0-100.0 mmHgHCO3 ABG32.022.0-26.0 mmol/LBase Excess ABG 6.3-2.0-2.0 mmol/LOxygen Saturation ABG94.0Allen TestPOSITIVEPOSITIVELiters per Aiezze6Luffvwwi SiteRBPerforming Lab:see [facility] LBFREE T3 Reviewed date:01/08/2025 05:36:32 PM Interpretation: Performing Lab: Notes/Report: [facility] ,Free T32.752.18-3.98 pg/mLPerforming Lab:see [facility] GLYCOHEMOGLOBIN A1C Reviewed date:01/08/2025 05:36:32 PM Interpretation: Performing Lab: Notes/Report: [facility] ,Glycohemoglobin A1C5.54.5-6.2 % ADA RECOMMENDED LIMIT 4.0 - 6.0 ADA THERAPEUTIC TARGET < 7.0 ACTION SUGGESTED > 7.0 Estimated Average Fugaipd527Qrucwovnji Lab:see [facility] INSULIN Reviewed date:01/08/2025 05:36:32 PM Interpretation: Performing Lab: Notes/Report: [facility] ,Yfxkgvp25.02.6-24.9 uIU/mL Performed at: [facility] Lab[address] [id number] Telecommunication Systems Designer: Candido Villegas PhD, Phone: [phone] Performing Lab:see uriFORMERLY [facility] LBLIPID PROFILE Reviewed date:01/08/2025 05:36:32 PM Interpretation: Performing Lab: Notes/Report: [facility] ,Mmeghktojbemf127<=150 mg/qWUtovgwenhhl586<=200 mg/dLHDL Lufrdnfxcnu8256-67 mg/dL > or =60 mg/dl - LOW CARDIOVASCULAR RISK <40 mg/dl - HIGH CARDIOVASCULAR RISK LDL Cholesterol Qmeqrccspt252.8 <100 mg/dl OPTIMAL 100-129 mg/dl NEAR OR ABOVE OPTIMAL 130-159 mg/dl BORDERLINE HIGH 160-189 mg/dl HIGH >190 mg/dl VERY HIGH VLDL QIUKZBBOFDE13.2Chol HDL Ratio3.1 3.3 - 4.4 LOW RISK 4.4 - 7.1 AVERAGE RISK 7.1 - 11.0 MODERATE RISK >11.0 HIGH RISK Performing Lab:see note - [facility] LBPROF 14(COMP METB) Reviewed date:01/08/2025 05:36:32 PM Interpretation: Performing Lab: Notes/Report: [facility] ,Wdpkbt744733-402 mmol/LPotassium4.83.5-5.1 mmol/GWcxfoqzq84261-150 mmol/LCarbon Hkjvkys34.321.0-32.0 mmol/LAnion Gap11.4Popkcwn40839-581 mg/dLBlood Urea Pypmfkvj16.07.0-18.0 mg/dLCreatinine1.040.70-1.30 mg/dLEstimated GFR ( Denisse>60>=60 mL/min/1.73m 2Estimated GFR (Non- Tri>60>=60 mL/min/1.73m 2BUN Creatinine Ratio27.9Dbiafsi63.48.5-10.1 mg/dLBilirubin Total0.50.2-1.0 mg/dLAspartate Amino Xgkarfnpfvr4860-75 U/LAlanine Gzroiiuanhfrndea4345-70 U/L Alkaline Drknjsothol3529-004 U/LTotal Protein7.46.4-8.2 g/dLAlbumin Level4.03.4- 5.0 g/dLGlobulin3.4Albumin Globulin Ratio1.2Performing Lab:see noteML - [facility] LBPSA SCREENING Reviewed date:01/08/2025 05:36:32 PM Interpretation: Performing Lab: Notes/Report: [facility] ,Prostate Specific Antigen Scrn2.20<=4.00 ng/mLPerforming Lab:see note - [facility] LBT4 Reviewed date:01/08/2025 05:36:32 PM Interpretation: Performing Lab: Notes/Report: [facility] ,T4 Thyroxine6.604.50-12.10 ug/dLPerforming Lab:see note - [facility] LBTSH Reviewed date:01/08/2025 05:36:32 PM Interpretation: Performing Lab: Notes/Report: [facility] ,Thyroid Stimulating Hormone0.6300.358-3.740 uIU/mLPerforming Lab:see note - [facility] LBURIC ACID SERUM Reviewed date:01/08/2025 05:36:32 PM Interpretation: Performing Lab: Notes/Report: [facility] ,Uric Acid3.43.5-7.2 mg/dLPerforming Lab:see note - [facility] LB Troponin I High Sensitivity Reviewed date:01/08/2025 05:36:32 PM Interpretation: Performing Lab: Notes/Report: [facility] ,Troponin I High Chqsqyaxpqu35.64.0-76.1 pg/mL CUT-OFF POINTS HAVE BEEN ESTABLISHED BASED ON THE FOURTH UNIVERSAL DEFINITION OF MYOCARDIAL INFARCTION. THE UPPER REFERENCE LIMIT (URL) OF TROPONIN, DEFINED THE 99TH PERCENTILE OF cTnI DISTRIBUTION IN A REFERENCE POPULATION, HAS BEEN CONFIRMED THE DECISION THRESHOLD FOR CA DIAGNOSIS. 99TH PERCENTILE = 76.2 PG/ML NOTE: HIGH-SENSITIVITY TROPONIN ASSAY IS NOT INTENDED TO BE USED IN ISOLATION BUT SHOULD BE INTERPRETED IN CONJUNCTION WITH OTHER DIAGNOSTIC AND CLINICAL INFORMATION. Performing Lab:see note - [facility] LBCA echo doppler complete Reviewed date:02/03/2025 09:03:54 PM Interpretation: Performing Lab: Notes/Report: Source Facility: [facility]-[address] [place] [address] [place] [address] Cardiology Report Signed Patient: ELISE TABOR MR#: [id number] : 1960 Acct:[id number] Age/Sex: 64 / M ADM Date: 02/03/25 Loc: CARD Attending Dr: Benny Diaz M.D. Ordering Physician: Benny Diaz M.D. Date of Service: 02/03/25 Procedure(s): CA echo doppler complete Accession Number(s): [id number] cc: Donna Zayas M.D.; Benny Diaz M.D. Patient Name: ELISE TABOR MR#: [id number] : 1960 Exam Date: 02/03/2025 Ordering Doctor: [...] CARD Signed By: 02/03/252055 DD/ 54 TD/TT: Forensic Pathologist: head/brain wo con Reviewed date:02/21/2025 01:09:15 PM Interpretation: Performing Lab: Notes/Report: Source Facility: [facility]-[address] [place] [address] [place] [address] Magnetic Resonance Report Signed Patient: ELISE TABOR MR#: [id number] : 1960 Acct:[id number] Age/Sex: 64 / M ADM Date: 02/21/25 Loc: MRI Attending Dr: Donna Zayas M.D. Ordering Physician: Donna Zayas M.D. Date of Service: 02/21/25 Procedure(s): MR head/brain wo con Accession Number(s): [id number] cc: Donna Zayas M.D. The [address] [address] Patient Name: ELISE TABOR MRN: [facility]:[id number] date: 1960 Sex: M Assigned Patient Location: MRI Current Patient Location: MRI Accession/Order Number: [id number] Exam Date: 02/21/2025 10:55 Report Date: 02/21/2025 [...] Salazar M.D. 02/21/2025 11:03 AM Dictation Location: [place] [address] Electronically authenticated by: [id number] Y Date: 02/21/2025 11:03 Dictated By: Uyen Salazar M.D. Signed By: 02/21/25 1105 DD/ 1103 TD/TT: Forensic Pathologist:LIPID PROFILE Reviewed date:03/17/2025 06:46:32 PM Interpretation: Performing Lab: Notes/Report: [facility] ,Tbvqkljbvawdy375<=150 mg/lUXnrccldizca848<=200 mg/dLHDL Vcwjedxnmpa0084-63 mg/dL > or =60 mg/dl - LOW CARDIOVASCULAR RISK <40 mg/dl - HIGH CARDIOVASCULAR RISK LDL Cholesterol Xfictsmucd43.6 <100 mg/dl OPTIMAL 100-129 mg/dl NEAR OR ABOVE OPTIMAL 130-159 mg/dl BORDERLINE HIGH 160-189 mg/dl HIGH >190 mg/dl VERY HIGH VLDL JXQNEUUCFKF59.4Chol HDL Ratio2.7 3.3 - 4.4 LOW RISK 4.4 - 7.1 AVERAGE RISK 7.1 - 11.0 MODERATE RISK >11.0 HIGH RISK Performing Lab:see noteML - [facility] LBSGOT Reviewed date:03/17/2025 06:46:32 PM Interpretation: Performing Lab: Notes/Report: [facility] ,Aspartate Amino Hbmhvqqdgxz4303-83 U/LPerforming Lab:see note - [facility] LBSGPT Reviewed date:03/17/2025 06:46:32 PM Interpretation: Performing Lab: Notes/Report: [facility] ,Alanine Uewfahhgflavthwf2526-84 U/LPerforming Lab:see note - [facility] LBCA echo w/ con Reviewed date:03/20/2025 04:01:59 PM Interpretation: Performing Lab: Notes/Report: Source Facility: [facility]-[address] [place] [address] Cardiology Report Signed Patient: ELISE TABOR MR#: [id number] : 1960 Acct:[id number] Age/Sex: 64 / M ADM Date: 03/17/25 Loc: NM Attending Dr: Benny Diaz M.D. Ordering Physician: Benny Diaz M.D. Date of Service: 03/17/25 Procedure(s): CA echo w/ con Accession Number(s): [id number] cc: Donna Zayas M.D.; Benny Diaz M.D. Patient Name: ELISE TABOR MR#: [id number] : 1960 Exam Date: 03/17/2025 Ordering Doctor: [...] cm2, 3.62 cm2 AoV Area (VTI): Deceleration [place]: Pressure Half-Time: Peak Velocity(Antegrade Flow): 0.90 m/s [...] M.D. Signed By: 03/18/251845 DD/ 44 TD/TT: Forensic Pathologist:CBC AUTO DIFF Reviewed date:04/19/2025 08:09:45 PM Interpretation: Performing Lab: Notes/Report: [facility] ,White Blood Count9.64.0-11.0 10 3/uLRed Blood Count4.414.70-6.10 10 6/uL Duzbfbywkz23.414.0-18.0 g/iWBdbytinxlx14.342.0-54.0 %Mean Corpuscular Btpkog51.2 80.0-94.0 fLMean Corpuscular Dqzioxlaqs34.725.9-34.0 pgMean Corpuscular HGB Conc 33.329.9-35.2 g/dLRed Cell Distribution Width13.511.0-15.0 %Platelet Jftef775 150-450 10 3/uLMean Platelet Volume9.59.5-13.5 fLNeutrophils Percent Auto86.3 43.0-75.0 %Lymphocytes Percent Auto5.720.5-60.0 %Monocytes Percent Auto6.71.7- 12.0 %Eosinophils Percent Auto0.40.9-7.0 %Basophils Percent Auto0.30.2-2.0 % Immature Granulocytes Pct Auto0.60.0-0.5 %Neutrophils Absolute Auto8.31.4-6.5 10 3/uLLymphocytes Absolute Auto0.61.2-3.8 10 3/uLMonocytes Absolute Auto0.70.3- 0.8 10 3/uLEosinophils Absolute Auto0.00.0-0.7 10 3/uLBasophils Absolute Auto0.0 0.0-0.1 10 3/uLImmature Granulocytes Abs Auto0.060.00-0.03 10 3/uLPerforming Lab:see noteML - [facility] LBPROF CHEM 8 (BAS METB) Reviewed date:04/19/2025 08:09:45 PM Interpretation: Performing Lab: Notes/Report: [facility] ,Rankxm497219-047 mmol/LPotassium5.13.5-5.1 mmol/EIumrqknr05951-184 mmol/LCarbon Fuiemjj75.621.0-32.0 mmol/LAnion Gap4.1Uoomjkd70197-549 mg/dLBlood Urea Bpcgjilc61.07.0-18.0 mg/dLCreatinine0.900.70-1.30 mg/dLEstimated GFR ( Denisse>60>=60 mL/min/1.73m 2Estimated GFR (Non- Tri>60>=60 mL/min/1.73m 2BUN Creatinine Ratio27.5Knwzepd09.98.5-10.1 mg/dLPerforming Lab:see noteML - [facility] LBLIPID PROFILE Reviewed date:05/27/2025 05:30:12 PM Interpretation: Performing Lab: Notes/Report: [facility] ,Owiuwbmqbmsmb522<=150 mg/rHRxtjhhkxfdz595<=200 mg/dLHDL Crakvbxgjme6452-20 mg/dL > or =60 mg/dl - LOW CARDIOVASCULAR RISK <40 mg/dl - HIGH CARDIOVASCULAR RISK LDL Cholesterol Ufjlmcxthf45.0 <100 mg/dl OPTIMAL 100-129 mg/dl NEAR OR ABOVE OPTIMAL 130-159 mg/dl BORDERLINE HIGH 160-189 mg/dl HIGH >190 mg/dl VERY HIGH VLDL GFSLEJPEESY87.0Chol HDL Ratio3.5 3.3 - 4.4 LOW RISK 4.4 - 7.1 AVERAGE RISK 7.1 - 11.0 MODERATE RISK >11.0 HIGH RISK [facility] L[facility] Reviewed date:05/27/2025 05:30:12 PM Interpretation: Performing Lab: Notes/Report: [facility] ,Aspartate Amino Lcawbkadmnc0431-43 U/LPerforming Lab:see note - [facility] LBSGPT Reviewed date:05/27/2025 05:30:12 PM Interpretation: Performing Lab: Notes/Report: [facility] ,Alanine Eygpvcrusjxtqzdl9512-30 U/LPerforming Lab:see [facility] LBGLYCOHEMOGLOBIN A1C Reviewed date:06/14/2025 04:33:29 PM Interpretation: Performing Lab: Notes/Report: [facility] ,Glycohemoglobin A1C5.54.5-6.2 % ADA RECOMMENDED LIMIT 4.0 - 6.0 ADA THERAPEUTIC TARGET < 7.0 ACTION SUGGESTED > 7.0 Estimated Average Rduervg185Fiyspfqojo Lab:see [facility] LB UA RANDOM W or MICROSCOPIC Reviewed date:06/14/2025 04:33:29 PM Interpretation: Performing Lab: Notes/Report: [facility] ,Color UrineYELLOWYELLOWClarity UrineCLEARCLEARSpecific [place] Urine1.020 1.005-1.025pH Urine6.05.0-9.0Protein UrineNEGATIVENEG/TRACE mg/dLGlucose Urine UA>=1000NEGATIVE mg/dLBilirubin UrineNEGATIVENEGATIVEKetones UrineNEGATIVE NEGATIVE mg/dLBlood UrineNEGATIVENEGATIVENitrite UrineNEGATIVENEGATIVE Urobilinogen Urine0.20.2-1.0 EU/dLLeukocyte Esterase UrineNEGATIVENEGATIVEWBC UrineNONE SEENNONE SEEN #/HPFRBC UrineNONE SEEN0-2 #/HPFBacteria UrineTRACENONE SEEN #/HPFMucus UrineSMALLNONE SEENSquamous Epithelial Cell UrineRARENONE/RARE #/LPFCrystals Seen?None SeenNone Seen #/HPFCast Seen?NONE SEENNONE SEEN #/LPF Performing Lab:see uri - [facility] LBVitamin B6, Plasma Reviewed date:06/17/2025 08:45:45 AM Interpretation: Performing Lab: Notes/Report: J[facility] ,Vitamin B6, Plasma4.13.4-65.2 ug/L This test was developed and its performance characteristics determined by [facility]. It has not been cleared or approved by the Food and Drug Administration. Deficiency: <3.4 Marginal: 3.4 - 5.1 Adequate: >5.1 Performed at: [address] [id number] Telecommunication Systems Designer: Davis Blackburn MD, Phone: [phone] Performing Lab:[facility] LBANA w/Reflex Reviewed date:06/16/2025 06:06:27 PM Interpretation: Performing Lab: Notes/Report: [facility] ,HARRIETT DirectNegativeNegative Performed at: [address] [id number] Telecommunication Systems Designer: Candido Villegas PhD, Phone: [phone] Performing Lab:see [facility] LBProtein Electro.,S Reviewed date:06/21/2025 02:16:49 PM Interpretation: Performing Lab: Notes/Report: [facility] ,Protein, Total6.36.0-8.5 g/dLAlbumin3.72.9-4.4 g/zQLbxen-6-Krjubnmg5.20.0-0.4 g/oUEkmdr-7-Zqquisre6.70.4-1.0 g/dLBeta Globulin0.80.7-1.3 g/dLGamma Globulin0.8 0.4-1.8 g/dLM-SpikeNot ObservedNot Observed g/dLGlobulin, Total2.62.2-3.9 g/dL A/G Ratio1.40.7-1.7Please note:Comment. Protein electrophoresis scan will follow via computer, mail, or insurance healthcare representative delivery. Performed at: [address] [id number] Telecommunication Systems Designer: Candido Villegas PhD, Phone: [phone] Performing Lab:see [facility] LBTSH W/ REFLEX FT4 Reviewed date:06/14/2025 04:33:29 PM Interpretation: Performing Lab: Notes/Report: [facility] ,TSH W/ REFLEX FT40.5330.358-3.740 uIU/mLPerforming Lab:see uri - [facility] LBImmunofixation, Serum Reviewed date:06/16/2025 06:06:27 PM Interpretation: Performing Lab: Notes/Report: [facility] ,Immunofixation Result, SerumComment.No monoclonality detected.Immunoglobulin G, Qn, Hajzm477361-9775 mg/dLImmunoglobulin A, Qn, Serum<561-437 mg/dLResult confirmed on concentration.Immunoglobulin M, Qn, Cuynp6339-353 mg/dL Performed at: [address] [id number] Telecommunication Systems Designer: Candido Villegas PhD, Phone: [phone] Performing Lab:see [facility] LBMethylmalonic Acid, Serum Reviewed date:06/21/2025 02:16:49 PM Interpretation: Performing Lab: Notes/Report: [facility] ,Methylmalonic Acid, Myfby1971-827 nmol/L This test was developed and its performance characteristics determined by [facility]. It has not been cleared or approved by the Food and Drug Administration. Performed at: [address] [id number] Telecommunication Systems Designer: Davis Blackburn MD, Phone: [phone] Performing Lab:see [facility] LBVitamin B12 Reviewed date:06/15/2025 12:26:54 PM Interpretation: Performing Lab: Notes/Report: [facility] ,Vitamin V86561864-4184 pg/mL Performed at: [address] [id number] Telecommunication Systems Designer: Candido Villegas PhD, Phone: [phone] Performing Lab:see [facility] LBUrine Culture - [facility] Reviewed date:06/16/2025 06:06:27 PM Interpretation: Performing Lab: Notes/Report: [facility] ,Urine Culture - [facility]MCSee Below For Report Urine Culture - [facility] No Growth 2 Days Urine Culture - [facility] Urine Culture - [facility] No Growth 2 Days [facility] - [facility] [place] No Growth 2 Days Urine Culture - [id number] [place] [address] Urine Culture - [facility] [place] No Growth 2 Days Performing Lab:see noteML - [facility] LBXR hip RT 2V w/ pelvis Reviewed date:06/14/2025 04:33:29 PM Interpretation: Performing Lab: Notes/Report: Source Facility: [place] [address] [place] [address] XRay Report Signed Patient: ELISE TABOR MR#: [id number] : 1960 Acct:[id number] Age/Sex: 65 / M ADM Date: 06/14/25 Loc: LAB Attending Dr: Donna Zayas M.D. Ordering Physician: Donna Zayas M.D. Date of Service: 06/14/25 Procedure(s): XR hip RT 2V w/ pelvis Accession Number(s): [id number] cc: Donna Zayas M.D. The [place] [address] Patient Name: ELISE TABOR MRN: [facility]:[id number] date: 1960 Sex: M Assigned Patient Location: LAB Current Patient Location: LAB Accession/Order Number: [id number] Exam Date: 06/14/2025 10:12 Report Date: 06/14/2025 11:01 At the request of: DONNA ZAYAS MD Procedure: XR hip RT 2V w/ pelvis RIGHT HIP WITH AP PELVIS - 3 views CLINICAL DATA: Right hip pain since fall a month ago. History of hip replacements. Comparison: CT 04/01/2023 AP view of the pelvis as well as AP and frog-lateral views of the right hip were obtained. There is osteopenia. Bilateral hip prostheses are again visualized. The left femoral stem is not included in its entirety. Otherwise the hardware appears intact and unchanged from the prior. No acute fracture or dislocation is identified. The SI joints are intact. There is subtle scoliotic curvature and degenerative change at the spine. No soft tissue abnormalities are present. XR/XR hip RT 2V w/ pelvis IMPRESSION: NO ACUTE BONY FINDINGS. Impression dictated by: Uyen Salazar M.D. 06/14/2025 11:01 AM Dictation Location: [place] [address] Electronically authenticated by: [id number] Y Date: 06/14/2025 11:01 Dictated By: Uyen Salazar M.D. Signed By: 06/14/25 1103 DD/ 1101 TD/TT: Forensic Pathologist:CBC AUTO DIFF Reviewed date:06/27/2025 12:36:47 PM Interpretation: Performing Lab: Notes/Report: [facility] ,White Blood Count7.54.0-11.0 10 3/uLRed Blood Count4.414.70-6.10 10 6/uL Pchjpfqntq41.414.0-18.0 g/gNJmijbukwqv61.142.0-54.0 %Mean Corpuscular Volume 100.080.0-94.0 fLMean Corpuscular Gmekoyyzyx04.725.9-34.0 pgMean Corpuscular HGB Conc32.729.9-35.2 g/dLRed Cell Distribution Width14.411.0-15.0 %Platelet Count 733640-506 10 3/uLMean Platelet Volume9.29.5-13.5 fLNeutrophils Percent Auto77.4 43.0-75.0 %Lymphocytes Percent Auto12.220.5-60.0 %Monocytes Percent Auto8.01.7- 12.0 %Eosinophils Percent Auto0.90.9-7.0 %Basophils Percent Auto0.40.2-2.0 % Immature Granulocytes Pct Auto1.10.0-0.5 %Neutrophils Absolute Auto5.81.4-6.5 10 3/uLLymphocytes Absolute Auto0.91.2-3.8 10 3/uLMonocytes Absolute Auto0.60.3- 0.8 10 3/uLEosinophils Absolute Auto0.10.0-0.7 10 3/uLBasophils Absolute Auto0.0 0.0-0.1 10 3/uLImmature Granulocytes Abs Auto0.080.00-0.03 10 3/uLPerforming Lab:see noteML - [facility] LBNM jose luis perf SPECT rest str Reviewed date:03/20/2025 04:01:59 PM Interpretation: Performing Lab: Notes/Report: Source Facility: [facility]-[address] [place] [address] [place] [address] Nuclear Medicine Report Signed Patient: ELISE TABOR MR#: [id number] : 1960 Acct:[id number] Age/Sex: 64 / M ADM Date: 03/17/25 Loc: [place] Attending Dr: Benny Diaz M.D. Ordering Physician: Benny Diaz M.D. Date of Service: 03/17/25 Procedure(s): NM jose luis perf SPECT rest str Accession Number(s): [id number] cc: Donna Zayas M.D.; Benny Diaz M.D. Patient Name: ELISE TABOR MR#: [id number] : 1960 Exam Date: 03/17/2025 Ordering Doctor: [...] the study was pending per attending physician [facility] . For more details please see [...] M.D. Signed By: 03/18/251922 DD/ 21 TD/TT: Forensic Pathologist:Calcium, Ionized, Serum Reviewed date:01/23/2025 10:13:17 PM Interpretation: Performing Lab: Notes/Report: [facility] ,Calcium, Ionized, Serum5.34.5-5.6 mg/dL Performed at: [facility] Lab[address] [id number] Telecommunication Systems Designer: Candido Villegas PhD, Phone: [phone] Performing Lab:see note - [facility] LBPROF 14(COMP METB) Reviewed date:01/19/2025 07:18:24 PM Interpretation: Performing Lab: Notes/Report: [facility] ,Pjyykf345855-313 mmol/LPotassium5.03.5-5.1 mmol/MZykcfezy73033-525 mmol/LCarbon Btbopvf79.721.0-32.0 mmol/LAnion Gap13.8Xrauaqo92373-602 mg/dLBlood Urea Dfwlidcw35.07.0-18.0 mg/dLCreatinine1.070.70-1.30 mg/dLEstimated GFR ( Denisse>60>=60 mL/min/1.73m 2Estimated GFR (Non- Tri>60>=60 mL/min/1.73m 2BUN Creatinine Ratio22.7Sooguah8.98.5-10.1 mg/dLBilirubin Total0.70.2-1.0 mg/dL Aspartate Amino Uqyruvcexcp4318-09 U/LAlanine Kncwlnnsxzjxwgyp9080-05 U/L Alkaline Tpkljggnhwb1031-386 U/LTotal Protein6.96.4-8.2 g/dLAlbumin Level3.73.4- 5.0 g/dLGlobulin3.2Albumin Globulin Ratio1.2Performing Lab:see noteML - [facility] LBLIPID PROFILE Reviewed date:01/19/2025 07:18:24 PM Interpretation: Performing Lab: Notes/Report: [facility] ,Edooxefgumyni95<=150 mg/oGRlwzwpjynxi520<=200 mg/dLHDL Czxacqxidwg3185-54 mg/dL > or =60 mg/dl - LOW CARDIOVASCULAR RISK <40 mg/dl - HIGH CARDIOVASCULAR RISK LDL Cholesterol Wsanldoqby34.0 <100 mg/dl OPTIMAL 100-129 mg/dl NEAR OR ABOVE OPTIMAL 130-159 mg/dl BORDERLINE HIGH 160-189 mg/dl HIGH >190 mg/dl VERY HIGH VLDL DCVDLAITCXP68.2Chol HDL Ratio2.6 3.3 - 4.4 LOW RISK 4.4 - 7.1 AVERAGE RISK 7.1 - 11.0 MODERATE RISK >11.0 HIGH RISK Performing Lab:see noteML - [facility] LBCBC AUTO DIFF Reviewed date:01/08/2025 05:36:32 PM Interpretation: Performing Lab: Notes/Report: [facility] ,White Blood Count12.74.0-11.0 10 3/uLRed Blood Count5.464.70-6.10 10 6/uL Lbujmcmioy63.014.0-18.0 g/bEJwyaryvcnt25.242.0-54.0 %Mean Corpuscular Hpnprv81.8 80.0-94.0 fLMean Corpuscular Jcijnxuaxl11.125.9-34.0 pgMean Corpuscular HGB Conc 33.229.9-35.2 g/dLRed Cell Distribution Width12.811.0-15.0 %Platelet Bsykm441 150-450 10 3/uLMean Platelet Volume9.49.5-13.5 fLNeutrophils Percent Auto86.7 43.0-75.0 %Lymphocytes Percent Auto6.220.5-60.0 %Monocytes Percent Auto5.81.7- 12.0 %Eosinophils Percent Auto0.20.9-7.0 %Basophils Percent Auto0.30.2-2.0 % Immature Granulocytes Pct Auto0.80.0-0.5 %Neutrophils Absolute Auto11.01.4-6.5 10 3/uLLymphocytes Absolute Auto0.81.2-3.8 10 3/uLMonocytes Absolute Auto0.70.3- 0.8 10 3/uLEosinophils Absolute Auto0.00.0-0.7 10 3/uLBasophils Absolute Auto0.0 0.0-0.1 10 3/uLImmature Granulocytes Abs Auto0.100.00-0.03 10 3/uLPerforming Lab:see noteML - [facility] LBCBC AUTO DIFF Reviewed date:08/17/2024 08:59:34 AM Interpretation: Performing Lab: Notes/Report: [facility] ,White Blood Count11.44.0-11.0 10 3/uLRed Blood Count4.124.70-6.10 10 6/uL Qnlgshsbpf57.414.0-18.0 g/zLCxadsooyph74.642.0-54.0 %Mean Corpuscular Lwberf68.5 80.0-94.0 fLMean Corpuscular Jbuhjwgwal04.525.9-34.0 pgMean Corpuscular HGB Conc 33.029.9-35.2 g/dLRed Cell Distribution Width13.711.0-15.0 %Platelet Akjqc659 150-450 10 3/uLMean Platelet Volume8.89.5-13.5 fLNeutrophils Percent Auto85.4 43.0-75.0 %Lymphocytes Percent Auto7.420.5-60.0 %Monocytes Percent Auto5.81.7- 12.0 %Eosinophils Percent Auto0.70.9-7.0 %Basophils Percent Auto0.20.2-2.0 % Immature Granulocytes Pct Auto0.50.0-0.5 %Neutrophils Absolute Auto9.71.4-6.5 10 3/uLLymphocytes Absolute Auto0.91.2-3.8 10 3/uLMonocytes Absolute Auto0.70.3- 0.8 10 3/uLEosinophils Absolute Auto0.10.0-0.7 10 3/uLBasophils Absolute Auto0.0 0.0-0.1 10 3/uLImmature Granulocytes Abs Auto0.060.00-0.03 10 3/uLPerforming Lab:see noteML - [facility] LBBNP Reviewed date:01/08/2025 05:36:32 PM Interpretation: Performing Lab: Notes/Report: [facility] ,NT Pro B Type Natriuretic Pept68.0<=900.0 pg/mLPerforming Lab:see noteML - [facility] LBCBC W/AUTO DIFF Reviewed date:08/16/2024 03:36:52 PM Interpretation: Performing Lab: Notes/Report: Reason For Referral Reason Patient is establish ed with [facility] cardiology and requested a referral elsewhere Diagnosis 1 Atrial fibrillation, unspecified (I48.91) Diagnosis 2 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 Patient will be contacted by the office and scheduled.Prudence Riley 07/21/2024 11:04:11 AM >I called and spoke with Danni at [facility] to find out if the patient has been scheduled yet? Per Danni the patient is not scheduled as of today, but she will speak with Melita to find out what she is waiting on.Prudence Riley 07/29/2024 01:03:06 PM >Per Melita at [facility] Cardiology the patient is scheduled for [...] Duration) Notes Start Date End Date Status Trelegonzález Ellipta 200-62.5-25 MCG/ACT 1 puff Inhalation QD; Duration: 90 days Rinse after use; Dispense #3 inhalers 08/17/2024UnknowntraMADol HCl 50 MG 1 tablet as needed Orally tid; Duration: 7 days S76.319A 05/23/2025UnknownMetoprolol Succinate ER 50 MG2 tablets am and 1pm OrallyUnknown Lisinopril 5 MG1 tablet Orally Once a dayUnknownIpratropium-Albuterol 0.5-2.5 (3) MG/3ML3mL Inhalation QID; Duration: 90 daysUnknownMeloxicam 15 MG1 tablet Orally Once a day; Duration: days06/20/2025tiveImitrex 100 MG1 tablet at least 2 hours between doses as needed Orally Twice a day; Duration: 30 days 01/07/2025UnknownFarxiga 10 MGOral; Duration: 34 DaysUnknownEliquis 5 MGas directed Orally twice dailyUnknownZinc 50 MG1 tablet Orally Once a dayUnknown Atorvastatin Calcium 80 MG1 tablet Orally Once a dayUnknownVitamin D3 50 MCG (2000 UT)1 capsule Orally Once a dayUnknownAspirin 81 81 MG1 tablet Orally Once a dayUnknownVitamin C 1000 MG1 tablet Orally Once a dayUnknownAcetaminophen 500 MG1 capsule as needed Orally every 6 hrsUnknownVitamin B 12 500 MCG1 tablet Orally Once a dayUnknownVentolin HFA 108 (90 Base) MCG/ACT2 puffs as needed for SOB Inhalation Q4H; Duration: 90 daysUnknownMucinex 600 MG1-2 tablets as needed for congestion Orally BID; Duration: 90 daysUnknownTopiramate 50 MG1 tablet Orally Once a day; Duration: 30 02/21/2025UnknowntiZANidine HCl 4 MG2 tabs Orally qhs; Duration: 30 01/07/2025UnknownTheophylline ER 300 MG1 tablet Orally every 12 hrs; Duration: 30 05/26/2025UnknownSodium Chloride 0.9 %3mL Inhalation BID; Duration: 07/13/2024UnknownRoflumilast 500 MCG1 tablet Orally QD; Duration: 90 daysUnknownProtonix 40 MG1 tablet Orally Once a day; Duration: 01/07/2025UnknownPregabalin 150 MG1 capsule Orally three times daily; Duration: days03/29/2025UnknownOzempic (0.25 or 0.5 MG/DOSE) 2 MG/3ML Inject 0.25ml Subcutaneous once weekly; Duration: 28 daysUnknownNitroglycerin 0.4 MG1 tablet under the tongue and allow to dissolve as needed. Take every 5 minutes up to 3 times if chest pain persists Sublingual Three times a dayUnknown Immunizations Vaccine Route Administration Date Status Comme nts Flu, Flucelvax (2129-4731) ( 25892) 6 mos and older, single-dose syringe Unknown 08/13/2023 Administered CrseJwwrdit01/06/2023dministered Social History Tobacco Use: Social History Observation Description Date Details (start date - stop date) Former Smoker NA - NA Tobacco Control (Standard) Question Answer Notes Tobacco use: Former smoker How long has it been since you last smoked?Greater than 10 yearsAdditional Findings: Tobacco qkd-xsetJp-obyc heavy cigarette smoker (40+/day)AUDIT-C (Standard) Question Answer Notes Did you have a drink containing alcohol in the p ast year? No Uztbea3IwxsktrjfbxqzeCkqpdhdc Problems Problem Type SNOMED Code ICD Code Onset Dates Problem Status W/U Status Risk Notes Problem Anemia (250706915) Anemia, unspecified (D 64.9) ActiveconfirmedProblemObesity (303910068)Obesity, unspecified (E66.9)Active confirmedProblemCentrilobular emphysema (14679450)Centrilobular emphysema (J43.2)ActiveconfirmedPrior treatment: Trelegy 200 > Trelegy 100 > Breztri > Spiriva. 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 of systemic steroids (Z79.52)Active confirmedProblemHypertension (04111156)Hypertension (I10)ActiveconfirmedProblem Gastroesophageal reflux disease (217843646)GERD (gastroesophageal reflux disease) (K21.9)ActiveconfirmedProblemObstructive sleep apnea syndrome (10430669)ISABEL (obstructive sleep apnea) (G47.33)ActiveconfirmedProblemMigraine (47675027)Migraine (G43.909)ActiveconfirmedProblemAtrial fibrillation (97568619) Atrial fibrillation, unspecified (I48.91)ActiveconfirmedProblemIgA deficiency (08462554)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)ActiveconfirmedProblemThrombocytopenia (007824540)Thrombocytopenia (D69.6)ActiveconfirmedProblemHistory of atrial fibrillation (241997143)History of atrial fibrillation (Z86.79)Activeconfirmed ProblemCoronary arteriosclerosis (68994387)Coronary arteriosclerosis (I25.10) ActiveconfirmedProblemPost-inflammatory pulmonary fibrosis (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) Granulomatous lung disease (J84.10)ActiveconfirmedProblemEx-tobacco user (finding) (570869199)History of tobacco abuse (Z87.891)Nlokcbsdeakipxq9tvc x 35 years (70 pack-years), quit 2013ProblemGastroesophageal reflux disease (738247140)Gastroesophageal reflux disease (K21.9)ActiveconfirmedProblemHistory of respiratory disease (302915845)History of asbestosis (Z87.09)Activeconfirmed ProblemHamstring tear (S76.319A)ActiveconfirmedProblemArthralgia of the pelvic region and thigh (374669444)Hip pain, acute, right (M25.551)Activeconfirmed ProblemNondependent cannabis abuse (585090366)Marijuana use (F12.90)Active confirmedProblemThoracic aortic aneurysm without rupture (disorder) (17765335) Thoracic aneurysm without mention of rupture (I71.20)ActiveconfirmedProblem Degeneration of lumbar intervertebral disc (23905968)Lumbar degenerative disc disease (M51.369)Activeconfirmed Vital Signs Heart Rate 71 /min 03/23/2025 Cepcoknxpel70.0 degrees Okvesxurtn48/16/2025Respiratory Rate20 /min03/23/2025 Leqrxdbt47 %03/23/2025lood pressure xnjpabgra04 mm Hg06/14/20252483Wiqoib44 in 06/14/2025lood pressure mllwwikb513 mm Hg06/14/20255099Rtsxnq298.2 lbs1MI 35.47 kg/m206/14/2025 Procedures Procedure Date Ordered Date Performed Result Body Sit e Split Night Sleep Study 10/27/2024 11/10/2024 N/A ABG0N/A Encounters Encounter Location Date Provider Diagnosis [address] [address] 01/07/2025 Andres Hoy Well adult Z00.00 ; Coronary arteriosclerosis I25.10 ; Atrial fibrillation, unspecified I48.91 ; History of atrial fibrillation Z86.79 ; Granulomatous lung disease J84.10 ; Anemia, unspecified D64.9 ; Hypersomnia, unspecified G47.10 and GERD (gastroesophageal reflux disease) K21.[address] [address] 02/11/2025 Andres Hoy Centrilobular emphys larissa J43.2 ; Obesity, unspecified E66.9 ; Coronary arteriosclerosis I25.10 ; History of atrial fibrillation Z86.79 ; Chronic respiratory failure with hypercapnia J96.12 and Migraine G43.[address] [address] 05/13/2025 Andres Hoy Hamstring tear S76.3 19A and Hypertension I10 [address] [address] 05/27/2025 Andres Hoy Hypertension I10 and Hamstring tear S76.319A [address] [address] 06/14/2025 Andres Hoy Hip pain, acute, rig ht M25.551 and Chronic respiratory failure with hypercapnia J96.12 [facility] [address] [place] [address] 03/23/2025 Hu Bunn Centrilobular emphys larissa J43.2 ; Chronic respiratory failure with hypoxia J96.11 ; Chronic respiratory failure with hypercapnia J96.12 ; ISABEL (obstructive sleep apnea) G47.33 ; History of tobacco abuse Z87.891 ; History of asbestosis Z87.09 ; termite inspector (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 of systemic steroids Z79.52 ; alf (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 of inhaled steroids Z79.51 and Obesity, unspecified E66.9 [facility] [address] [place] [address] 07/13/2024 Hu Bunn Centrilobular emphys larissa J43.2 ; Chronic respiratory failure with hypoxia J96.11 ; History of tobacco abuse Z87.891 ; History of asbestosis Z87.09 ; Coronary arteriosclerosis I25.10 ; Atrial fibrillation, unspecified I48.91 ; termite inspector (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 of systemic steroids Z79.52 ; termite inspector (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 of inhaled steroids Z79.51 and Obesity, unspecified E66.9 [facility] [address] [place] [address] 10/27/2024 Hu Bunn Centrilobular emphys larissa J43.2 ; Hypersomnia, unspecified G47.10 ; Chronic respiratory failure with hypercapnia J96.12 ; Chronic respiratory failure with hypoxia J96.11 ; Metabolic alkalosis E87.3 ; History of tobacco abuse Z87.891 ; History of asbestosis Z87.09 ; Coronary arteriosclerosis I25.10 ; Atrial fibrillation, unspecified I48.91 ; termite inspector (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 of systemic steroids Z79.52 ; termite inspector (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 of inhaled steroids Z79.51 and Obesity, unspecified E66.9 [facility] [address] [place] [address] 01/19/2025 Hu Bunn Centrilobular emphys larissa J43.2 ; ISABEL (obstructive sleep apnea) G47.33 ; Chronic respiratory failure with hypercapnia J96.12 ; Chronic respiratory failure with hypoxia J96.11 ; History of tobacco abuse Z87.891 ; History of asbestosis Z87.09 ; termite inspector (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 of systemic steroids Z79.52 ; alf (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 of inhaled steroids Z79.51 and Obesity, unspecified E66.9 [facility] [address] [place] [place] [address] 08/17/2024 Hu Bunn Centrilobular emphys larissa J43.2 [facility] [address] [place] [address] 09/13/2024 Hu [facility] Centrilobular emphys larissa J43.2 [facility] [address] [place] [address] 10/05/2024 [facility] [address] [place] [address]/ [facility] Hospital[facility] R05.1[facility] [facility] [place] [address]/11/2024Doug HoyAbnormal blood chemistry level R79.9 [facility] [facility] [place] [address] 01/23/2025Doug [facility] [facility] [place] [address]/Doug HoyWell adult Z00.00[facility] [address] [facility] [place] [address]/Doug [facility] [facility] [place] [address]/08/2025Doug Hoy Chronic respiratory failure with hypercapnia J96.12[facility] [facility] [place] [address]/Doug HoyPulmonary Medicine [address] [place] [place] [address]/10/2025Hu [facility] [facility] [place] [address] 03/20/2025Doug [facility] [facility] [place] [address]/Doug [address] [place] [address]/04/2025Doug [address] [place] [address]/Doug [address] [place] [address]/Doug Hoy Centrilobular emphysema J43.2[address] [place] [address]/Doug [facility] [place] [address]/Doug HoyCentrilobular emphysema J43.2 and Encounter for long-term (current) drug use Z79.[address] [place] [address]/03/2025Doug Hoy Thrombocytopenia D69.6[address] [place] [address]/05/2025Doug [address] [place] [address]/Doug [address] [place] [address]/Doug Hoy Hypertension I10 and Thrombocytopenia D69.[address] [place] [address]/04/2025Doug HoyHypertension I10 Assessments Encounter Date Diagnosis (ICD Code) [...] a novel PDE3/PDE4 inhibitor, and Dupixent for eosinophil/prednisone-dependent COPD. We discussed these to do options [...] miserable, then hospice would be an option. 4Chronic respiratory failure with hypoxia (ICD-10 - J96.11) Unqz-bw-knrz encounter performed with the patient to document [...] rest. Continue O2, ideally 4L/min with activity. 5Centrilobular emphysema (ICD-10 - J43.2)Prior treatment: Trelegy 200 > Trelegy 100 > Breztri > Spiriva. Not a candidate for EBV orlung reduction surgery. He is not an endobronchial valve candidate. He refused referral to lung transplantation center. Patient continues to complain of worsening shortness of breath. He was approved for Ohtuvayre, but there was a $500 jwr-sg-ghvlam cost monthly. He apparently did not feel [...] his prednisone from 10mg/day, but he was concernedabout weight gain. I stated at this point, is he worried about weight gain or breathing. He statedhe just wanted to stay at the 10mg/day dose. I reviewed labs that [facility] cardiology ordered from 10/01/2024. I note that his serum HCO3- level is 39.7. Discussed with patient that the 2 most common causes of this are contraction alkalosis from diuretics and compensatory secondary to chronic hypercapnia. I do not have any recent ABGs. I discussedthe possibility of BiPAP/NIV which could help symptom control. However, I would need to check an ABG and also screen him for ISABEL. He voiced he would be willing to use a PAP/NIV if indicated. Unfortunately, [facility] has been very difficult to reach regarding ordering supplies and obtaining compliance data. It is a potential nightmare to order one of these devices from there. His POC is insufficient for him with ambulation. His breathing could improve if he had a continuoustank. He refused that today. Outside investigating a BiPAP/NIV, I have exhausted all treatments I have available. Unfortunately,the patient is not completely compliant with my recommendations, or feeling that the cost of treatments was not worth any potential symptomatic gain. He is a palliative care candidate. If he continues to decline, I feel he is hospice appropriate. If it continues to decline, hospice is also a consideration. 10/27/2024Hypersomnia, unspecified (ICD-10 - G47.10) Screen patiented for obstructive sleep apnea. His [place] was 13 and [place]BANG was 8. He states hissignificant other has noticed him stopping breathing at night. He admits to daytime hypersomnolence. He is additionally obese. I cannot rule out ISABEL to qualify him for BiPAP via that route. He voicedagreement to proceed with a PSG. It will have to be an attended study as he is on chronic O2; an HST is not appropriate for this patient. He voiced agreement to proceed with PAP therapy if indicated.Vanv-cy-remw was performed today regarding need for CPAP or BiPAP if he qualifies. 01/19/2025entrilobular emphysema (ICD-10 - J43.2)Prior treatment: Trelegy 200 > Trelegy 100 > Breztri > Spiriva. Not a candidate for EBV orlung reduction surgery. He is not an endobronchial valve candidate. He refused referral to lung transplantation center. Options remain limited. Has either refused or unable to afford any additional treatments. Will continue with current treatments. If he declines further, he would be hospice appropriate. 01/19/2025OSA (obstructive sleep apnea) (ICD-10 - G47.33) Poff-yp-incb encounter performed with the patient to document continued need for PAP therapy. -Current DME: [employer] -Split night 11/10/2024: AHI 61, Titration 1612 with 5L/min O2 bleed-in -Compliance was reviewed [...] failure, so don't quit. He states it isnot bothersome, so he will continue to use it. Severe nocturnal desaturations requiring 5L/min O2 Bleed-in. Only major complaint is severe dry mouth even at the highest humidity setting. -The patient was reminded to continue to wear the PAP @ bedtime and with any naps. -This yuut-mu-sgdz visit comes with my authorization that the patient's DME may request to renew, reorder, and/or replace tubing, supplies, mask, and/or PAP device (if applicable). 01/07/2025Well adult (ICD-10 - Z00.00)5Coronary arteriosclerosis (ICD- 10 - I25.10)5Centrilobular emphysema (ICD-10 - J43.2)Prior treatment: Trelegy 200 > Trelegy 100 > Breztri > Spiriva. Not a candidate for EBV orlung reduction surgery. He is not an endobronchial valve candidate. He refused referral to lung transplantation center. He refused or couldn't afford any other therapies. There really is not much else at this point. Will continue current treatment plan. 5Chronic respiratory failure with hypoxia (ICD-10 - J96.11) Zjsk-vk-ltmc encounter performed with the patient to document continued need for supplemental oxygen (O2). -Current flow & directions: 3-4L/min O2 ATC, uses POC with ambulation from 3- 5L/min, 5L/min O2 bleed-in -Patient voices adherence to [...] believe POC is insufficient with activity...87% on 5L/min.Additionally, he cannot have both home fill system and POC. Insurance would not want to provide a high flow unit just so he can have elongated tubing so he doesn't have to lug around a tank outside. For now, patient said he would just stay with his POC and current home concentrator. 05/13/2025Hamstring tear (ICD-10 - S76.319A)05/13/2025Hypertension (ICD-10 - I10)holding lisinopril and repat bp cwvyul2305/16/2025Hypertension (ICD-10 - I10) 05/27/2025Hypertension (ICD-10 - I10)Hypotension - thingk over pjkczn5805/27/2025 Hamstring tear (ICD-10 - S76.319A)06/14/2025Hip pain, acute, right (ICD-10 - M25.551)06/14/2025hronic respiratory failure with hypercapnia (ICD-10 - J96.12) 4Centrilobular emphysema (ICD-10 - J43.2)Prior treatment: Trelegy 200 > Trelegy 100 > Breztri > Spiriva. Not a candidate for EBV orlung reduction surgery.5Centrilobular emphysema (ICD-10 - J43.2)Prior treatment: Trelegy 200 > Trelegy 100 > Breztri > Spiriva. Not a candidate for EBV orlung reduction surgery.5Acute cough (ICD-10 - R05.1)5Abnormal blood chemistry level (ICD-10 - R79.9)01/24/2025Well adult (ICD-10 - Z00.00) 5Chronic respiratory failure with hypercapnia (ICD-10 - J96.12) 5Centrilobular emphysema (ICD-10 - J43.2)5Centrilobular emphysema (ICD-10 - J43.2)5Centrilobular emphysema (ICD-10 - J43.2) 02/11/2025Obesity, unspecified (ICD-10 - E66.9)06/14/2025Thrombocytopenia (ICD- 10 - D69.6)06/27/2025Hypertension (ICD-10 - I10)06/27/2025Thrombocytopenia (ICD- 10 - D69.6)02/11/2025oronary arteriosclerosis (ICD-10 - I25.10)05/26/2025 Encounter for long-term (current) drug use (ICD-10 - Z79.899)03/23/2025hronic respiratory failure with hypercapnia (ICD-10 - J96.12) ABG 10/27/2024: pH: 7.34, pCO2: 59.3, pO2: 72.9, SaO2: 94%, FiO2: 3L/min Continue BiPAP. 01/07/2025trial fibrillation, unspecified (ICD-10 - I48.91)01/19/2025hronic respiratory failure with hypercapnia (ICD-10 - J96.12) Serum HCO3- on 10/01/3034 @ 39.7 excited my suspicion for possible chronic hypercapnic respiratory failure. This prompted me to order an ABG, which was done in the office today. Were reviewed and is as follows: ABG 10/27/2024: pH: 7.34, pCO2: 59.3, pO2: 72.9, SaO2: 94%, FiO2: 3L/min Continue with BiPAP. 10/27/2024hronic respiratory failure with hypercapnia (ICD-10 - J96.12) [...] does have chronic hypercapnic respiratory failure. Likely underlyingcause is COPD, but cannot rule out OHS (obesity hypoventilation syndrome)-testing for ISABEL. Regardless, the treatment is the same: BiPAP/NIV. 07/13/2024History of tobacco abuse (ICD-10 - Z87.891)2ppd x 35 years (70 pack- years), quit 2012 2ppd x35 years, quit 2011. LDCT due 04/2024 but was not done. The current recommendations suggest the patient continue with LDCT screening up to 15 years out from smoking, which would be 2026. 07/13/2024History of asbestosis (ICD-10 - Z87.09) Exposure to asbestos from brake pads. No evidence of asbestos on prior CT chest. 5Chronic respiratory failure with hypoxia (ICD-10 - J96.11) Uibh-vq-maeb encounter performed with the patient to document [...] improve his breathing which he is refusing. 5Chronic respiratory failure with hypoxia (ICD-10 - J96.11) Foif-ok-bpqz encounter performed with the patient to document continued need for supplemental oxygen (O2). -Current flow & directions: 3-4L/min O2 ATC, uses POC with ambulation from 3- 5L/min, 5L/min O2 bleed-in -Patient voices adherence to [...] but he will not give it up. 01/07/2025History of atrial fibrillation (ICD-10 - Z86.79)03/23/2025OSA (obstructive sleep apnea) (ICD-10 - G47.33) Previously evaluated. Continue PAP. Wdfy-hk-ouxx encounter performed with the patient to document [...] failure, so don't quit. He states it isnot bothersome, so he will continue to use it. Severe nocturnal desaturations requiring 5L/min O2 Bleed-in. Only major complaint is severe dry mouth even at the highest humidity setting. -The patient was reminded to continue to wear the PAP @ bedtime and with any naps. -This rmts-uu-cuul visit comes with my authorization that the patient's DME may request to renew, reorder, and/or replace tubing, supplies, mask, and/or PAP device (if applicable). 02/11/2025History of atrial fibrillation (ICD-10 - Z86.79)02/11/2025hronic respiratory failure with hypercapnia (ICD-10 - J96.12)03/23/2025History of tobacco abuse (ICD-10 - Z87.891)2ppd x 35 years (70 pack-years), quit 2012 2ppd x35 years, quit 2011. No further LDCT to be done as patient does not want any treatment if he has lung cancer. 01/07/2025Granulomatous lung disease (ICD-10 - J84.10)01/19/2025History of tobacco abuse (ICD-10 - Z87.891)2ppd x 35 years (70 pack-years), quit 2012 2ppd x35 years, quit 2011. Discussed future studies. He voiced he would not want any surgery, chemo, or radiation if he had cancer. With his health, the treatment could be worse than the disease. He voiced understanding of theconundrum. He stated he is fine forgoing any further testing. 10/27/2024Metabolic alkalosis (ICD-10 - E87.3) HCO3- 39.5, Suspected chronic hypercapnic respiratory failure, which I was correct based on ABG drawn today. 07/13/2024oronary arteriosclerosis (ICD-10 - I25.10) Patient voiced to me that he wanted a new cardiology group. I did not want to get into the politicsof the situation, but he requested a referral to [facility] Cardiology. His major gripe was not having the same analytics intern every visit. I personally walked over to [facility] Cardiology and asked them how theyhave follow-up set up. They stated that they make an attempt to keep the patient with the same physician, but often alternates every other visit with a nurse practitioner. I relayed this information to the patient and he voiced he would like to have a referral placed to [facility] Cardiology. I placed a referral for the patient, he stated he was going to go over to their office and sign a records release. 07/13/2024trial fibrillation, unspecified (ICD-10 - I48.91)10/27/2024History of tobacco abuse (ICD-10 - Z87.891)2ppd x 35 years (70 pack-years), quit 2012 2ppd x35 years, quit 2011. CTA 10/01/2024 did not show any significant change compared to 05/02/2023. The patient never did get his LDCT done that was due last year. 01/19/2025History of asbestosis (ICD-10 - Z87.09) Exposure to asbestos from brake pads. No evidence of asbestos on prior CT chest. 01/07/2025nemia, unspecified (ICD-10 - D64.9)03/23/2025History of asbestosis (ICD-10 - Z87.09) Exposure to asbestos from brake pads. No evidence of asbestos on prior CT chest. 02/11/2025Migraine (ICD-10 - G43.909)need MRI - progressive udoibjir31/16/2025 alf (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 of systemic steroids (ICD-10 - Z79.52) Discussed adverse effects of fci systemic steroids including, but not limited to: increased risk of cataracts, elevated blood sugars/worsening of underlying diabetes mellitus, impaired wound healing, gastrointestinal ulcers, osteoporosis. 01/07/2025Hypersomnia, unspecified (ICD-10 - G47.10)01/19/2025Long term (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 of systemic steroids (ICD-10 - Z79.52) Discussed adverse effects of fci systemic steroids including, but not limited to: increased risk of cataracts, elevated blood sugars/worsening of underlying diabetes mellitus, impaired wound healing, gastrointestinal ulcers, osteoporosis. 10/27/2024History of asbestosis (ICD-10 - Z87.09) Exposure to asbestos from brake pads. No evidence of asbestos on prior CT chest. 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 07/13/2024Long term (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 of inhaled steroids (ICD-10 - Z79.51) Patient was counseled to rinse & gargle with water after inhaled corticosteroid use. 10/27/2024oronary arteriosclerosis (ICD-10 - I25.10) Patient changed to [facility] cardiology and voiced he is very happy with the switch. 01/19/2025Lo term (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 of inhaled steroids (ICD-10 - Z79.51) Patient was counseled to rinse & gargle with water after inhaled corticosteroid use. 01/07/2025GERD (gastroesophageal reflux disease) (ICD-10 - K21.9)03/23/2025Long term (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 of inhaled steroids (ICD-10 - Z79.51) Patient was counseled to rinse & gargle with water after inhaled corticosteroid use. 03/23/2025Obesity, unspecified (ICD-10 - E66.9) Healthy calorie intake recommended. 01/19/2025Obesity, unspecified (ICD-10 - E66.9) Healthy calorie intake recommended. 10/27/2024trial fibrillation, unspecified (ICD-10 - I48.91)07/13/2024Obesity, unspecified (ICD-10 - E66.9) Technically obese, but he has lost 20 pounds unintentionally over the past 2 months d/t decreased appetite. 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 10/27/2024Lo term (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 of inhaled steroids (ICD-10 - Z79.51) Patient was counseled to rinse & gargle with water after inhaled corticosteroid use. 10/27/2024Obesity, unspecified (ICD-10 - E66.9) Technically obese, but he has lost 20 pounds unintentionally over the past 2 months d/t decreased appetite. 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 01/19/2025Other Screen patiented for obstructive sleep apnea. His [place] was 13 and STOP-BANG was 8. He states hissignificant other has noticed him stopping breathing at night. He admits to daytime hypersomnolence. He is additionally obese. I cannot rule out ISABEL to qualify him for BiPAP via that route. He voicedagreement to proceed with a PSG. It will have to be an attended study as he is on chronic O2; an HST is not appropriate for this patient. He voiced agreement to proceed with PAP therapy if indicated.Kjiz-si-vfel was performed today regarding need for CPAP or BiPAP if he qualifies. Patient changed to [facility] cardiology and voiced he is very happy with the switch. HCO3- 39.5, Suspected chronic hypercapnic respiratory failure, which I was correct based on ABG drawn today. 03/23/2025Other Screen patiented for obstructive sleep apnea. His [place] was 13 and STOP-BANG was 8. He states hissignificant other has noticed him stopping breathing at night. He admits to daytime hypersomnolence. He is additionally obese. I cannot rule out ISABEL to qualify him for BiPAP via that route. He voicedagreement to proceed with a PSG. It will have to be an attended study as he is on chronic O2; an HST is not appropriate for this patient. He voiced agreement to proceed with PAP therapy if indicated.Japp-se-erbq was performed today regarding need for CPAP or BiPAP if he qualifies. Patient changed to [facility] cardiology and voiced he is very happy with the switch. HCO3- 39.5, Suspected chronic hypercapnic respiratory failure, which I was correct based on ABG drawn today. Plan Of Treatment Pending Test Test Name Order Date HEMOGLOBIN A1C (GLYCO) 01/07/2025 INSULIN, TOTAL 01/07/2025 LIPID PANEL (CHOL/TRIG/HDL/LDL) 01/08/20 25 URIC ACID 01/07/2025 Urinalysis Microscopic 06/14/2025 CBC W/AUTO DIFF 06/27/2025 High Sensitivity Troponin 01/07/2025 CBC AUTO DIFF 06/14/2025 CULTURE URINE 06/14/2025 PROF 14(COMP METB) 01/08/2025 THEOPHYLLINE 05/26/2025 MRI BRAIN WO CON 02/11/2025 [...] Coverage Start Date Coverage End Date [employer] [address] [address] [place] [id number] [phone] [id number] PadillaAliya maierelf - patient is the insured Medications Administered Medication Instructions Date of Administration Dosage Notes Triamcinolone 40 mg/ml mg Medical (General) History Medical History History [...] K 21.9 ISABEL (obstructive sleep apnea) G47.33 thrombocytopenia igA deficiencySurgical History Surgery Date(Month/Year) heart cath 05/02 Hernia Repair cataract removalAmputation-Fingerright hip replacementleft hip replacement shoulder replacement-Rightcoronary artery bypass [id number] History Reason Date(Month/Year) SOB-TBH ER 05/02/2023
--- NOTE | 2025-06-30 13:02 | PM.CN ---
Consult Note: HPI Data of Consult Patient: new to practice Consult date: 06/30/25 Requesting Physician: Riddhi Elizabeth NP Primary Care Provider: Mario Zayas MD Consult Narrative Reason for consult: neuropathy/bilateral foot pain Narrative: Nikunj Borrego a 65 year old make with >20 years of low back pain and many years of neuropathy pain in bilateral feet. Pt has extensive DDD and multilevel stenosis according to recently completed lumbar MRI. Pt was previously in pain management while living in [place] for 15-20 years, unfortunately he failed to respond to scs trial and medication management as well as other unknown procedures. Prior EMG of BLE from 01/2023 reveals chronic S1 radiculopathy. pt has failed to benefit from > 6 weeks of PT/HEP, heat, ice, tylenol, nsaids, meloxicam, lyrica, topamax. cc:: CC: Riddhi Elizabeth NP Review of Systems ROS Musculoskeletal Reports: back pain and extremity pain PFSH PFSH Social History Smoking status: Former smoker Meds Home Medications and Allergies Home Medications ?Medication ?Instructions ?Recorded ?Confirmed ?Type ascorbic acid (vitamin C) 500 mg 1 g PO DAILY 04/01/23 08/14/23 History tablet (C-500) aspirin 81 mg tablet,delayed 81 mg PO DAILY 04/01/23 08/14/23 History release atorvastatin 40 mg tablet 40 mg PO DAILY 04/01/23 08/14/23 History cholecalciferol (vitamin D3) .Route 04/01/23 History ferrous sulfate 325 mg (65 mg 325 mg PO DAILY 04/01/23 08/14/23 History iron) tablet (Feosol) fluticasone fur. 200 mcg-umeclid 1 inh inhalation Q24H 04/01/23 08/14/23 History 62.5 mcg-vilant 25 mcg inhalat.powder (Trelegy Ellipta) ipratropium 0.5 mg-albuterol 3 mg 3 ml inhalation Q8H PRN shortness 04/01/23 08/14/23 History (2.5 mg base)/3 mL nebulization of breath soln lisinopril 5 mg tablet 5 mg PO DAILY 04/01/23 08/14/23 History mecobalamin (vitamin B12) 1,000 1,000 mcg PO DAILY 04/01/23 08/14/23 History mcg chewable tablet metoprolol succinate 50 mg 100 mg PO DAILY 04/01/23 08/14/23 History tablet,extended release 24 hr naproxen 250 mg tablet 220 mg PO BID PRN pain 04/01/23 08/14/23 History nitroglycerin 0.4 mg sublingual 0.4 mg sublingual Q5M PRN chest 04/01/23 08/14/23 History tablet pain omeprazole 40 mg capsule,delayed 40 mg PO DAILY 04/01/23 08/14/23 History release roflumilast 500 mcg tablet 500 mcg PO DAILY 04/01/23 08/14/23 History testosterone 50 mg/5 gram (1 %) 100 mg transdermal DAILY 04/01/23 08/14/23 History transdermal gel theophylline 400 mg 400 mg PO Q24H 04/01/23 08/14/23 History tablet,extended release 24 hr zinc 50 mg tablet 50 mg PO DAILY 04/01/23 08/14/23 History acetaminophen 300 mg-codeine 30 mg 1 tab PO Q6H PRN pain 5 days #20 06/12/23 08/14/23 Rx tablet tabs apixaban 5 mg tablet (Eliquis) mg 08/14/23 History bmx solution 10 ml PO Q8H PRN sore throat 10 08/14/23 Rx days #150 mL clindamycin HCl 150 mg capsule 450 mg (3 x 150 mg) PO TID 7 days 08/14/23 Rx #63 caps gabapentin 400 mg capsule mg 08/14/23 History gabapentin 600 mg tablet mg 08/14/23 History meloxicam 15 mg tablet mg 08/14/23 History methylprednisolone 4 mg tablets in mg 08/14/23 History a dose pack nystatin 100,000 unit/mL oral 08/14/23 History suspension zonisamide 25 mg capsule mg PO 08/14/23 History azithromycin 250 mg tablet See Rx Instructions PO .COMPLEX #6 10/27/23 Rx (Zithromax Z-Dl) tabs doxycycline hyclate 100 mg capsule 100 mg PO BID 10 days #20 caps 02/13/24 Rx Allergies Allergy/AdvReac Type Severity Reaction Status Date / Time No Known Drug Allergies Allergy Verified 08/14/23 01:41 Exam Constitutional Documenting provider has reviewed patient's vital signs: yes Common normals: no apparent distress, oriented x3 and alert General appearance: not cooperative Nutritional appearance: obese HENMT Common normals: normocephalic, hearing grossly normal bilaterally and moist oral mucous membranes Head and scalp: normocephalic Eye Common normals: PERRL Pupil: PERRL Neck & C-Spine Common normals: full ROM General: normal visual inspection Chest Common normals: inspection of chest normal Respiratory Common normals: normal respiratory effort Back & Pelvis Lumbar spine/lower back: ROM limited, pain with ROM, straight leg raise positive right and straight leg raise positive left Other: decreased sensation bilateral L5,S1,S2 Extremity Other: non pitting edema Neuro Common normals: oriented x3 Sensorium/orientation: alert Psych Common normals: mental status grossly normal, thought process normal, cooperative, affect normal, speech normal and activity/motor behavior normal Speech: normal speech Thought process: normal thought process Results Additional Findings Additional findings: If on a controlled substance or opioids, I have checked an [place]AR[place] report on this patient and there are no aberrancies noted in the prescribing history.??If on a controlled substance or opioid a drug screen was completed and reviewed within the last year, and if there has not been a drug screen completed we ordered one today to monitor higher risk, state monitored pain medication use. As part of providing excellent, safe, comprehensive care, the following was completed at our patient's visit: 1. A medication reconciliation and review to ensure accurate knowledge of current/active medications, including asking our patients to inform us about any ipmi-ocy-vmrcgec medications or herbal remedies/nutritional supplements/alternative remedies. 2. A review to specifically ensure our patients have had annual screening for screening for depression, screening for tobacco use, and screening for unhealthy alcohol use. For concerning screenings had a discussion with the patient, provided patient education, and recommended follow-up with primary care provider when appropriate. If patient noted with a risk of falling, they received education on strength, gait, and balance training to prevent future risk of falling. Portions of this note may have been carried over from the previous visit and updated as appropriate. Please note this office utilizes paper charting in addition to the electronic medical record. A list of current medications, vitals, and PMH is available there as the clinical staff outside of myself do not have access to [facility] charting during the clinic day operations. As part of providing quality comprehensive care the current medications, vitals, and PMH were reviewed in the paper chart. Assessment and Plan Assessment and Plan (1) Lumbosacral radiculopathy: Assessment and Plan: The patient has had over 3 months of moderate to severe low back and bilateral foot pain with functional impairment and inadequate response to conservative care including NSAIDS (unless there are contraindication such as concurrent blood thinners), multiple oral or topical pain medications, and home exercise program/physical therapy.? Patient has completed >6 weeks of guided home exercise program and/or formal physical therapy program without relief of their symptoms.? The Oswestry Disability Index was completed, and the patient scored a 20%.? Plan 65 year old male presents for evaluation of chronic low back and bilateral foot pain, pt reports hx of polyneuropathy denies hx of DM however recent EMG shows chronic s1 radiculopathies which i explained to patient correlates with his bilateral foot pain. patient became defensive, noting that he has had pinched nerves longer than he has had foot pain. he has previously failed scs trial, lumbar injections of unknown type. I reviewed with pt the option of trialing bilateral L5-S1 TFESI and potentially bilateral S1-2 tfesi under fluoroscopy for lumbosacral radiculopathy. pt agreeable. continue medication management through pcp and neurology, pending new neurology consultation as his prior physician left. f/u 2 weeks after injection.
== END 2025-06-30 12:36 | disposition home or self-care (01) ==
LOC: PM 12:36
PROVIDERS: PCP Family Medicine; Visit Provider Nurse Practitioner
DX: M54.16 Radiculopathy, lumbar region (principal)
CPT/HCPCS: G0463

== ENCOUNTER 2025-07-05 12:53 | Outpatient (OUT) | payer MEDICARE, SELFPAY ==
--- OUTSIDE RECORDS SUMMARY | 2025-06-23 09:30 | XMS_ITS | Encounter Summary ---
Author Organization [facility] Address [address] [place] [address] Care Team Providers Care Ditch Tender Name Role Phone Pauly Santacruz SAND CONDITIONER Unavailable Mario Zayas MD Primary Care Provider [phone] Reason for Referral * Imaging (Routine) - Pending ReviewSpecialtyDiagnoses / ProceduresReferred By ContactReferred To ContactCardiology Diagnoses PVD (peripheral vascular disease) Procedures Vascular US lower extremity arterial Doppler complete Yuri Rowe DPM 3006 [facility] 5 [place] [address] Phone: tel: fax: [facility] Schedule fax: Referral IDStatusReasonStart DateExpiration DateVisits RequestedVisits [id number] Review Perform Procedure / Reason for Visit * ReasonCommentsIngrown Toenail Encounter Details DateTypeDepartmentCare Team (Latest Contact Info)Mldrhlvrmqs20/16/2025 9:30 AM EDTOffice Visit [facility] 112 [facility] 120 [place] [address] Yuri Rowe DPM 3[address] [facility] 5 [place] [address] PVD (peripheral vascular disease); Other polyneuropathy; Pain due to onychomycosis of toenails of both feet; Paronychia, toe, left Social History Tobacco UseTypesPacks/DayYears UsedDateSmoking Tobacco: OdfrppRbgnnhvtzh517 09/08/1974 - 09/08/2009Smokeless Tobacco: Never Tobacco Cessation:Counseling Given: Yes Alcohol UseStandard Drinks/WeekCommentsNever0 (1 standard drink = 0.6 oz pure alcohol)ocassionallySex and Gender InformationValueDate RecordedSex Assigned at XcfvfZvhk27/16/2023 9:38 AM EDTLegal SzmHsis8702/06/2023 9:13 AM EDTGender EwljlencWjck42/16/2023 9:38 AM EDTSexual OrientationNot on filedocumented as of this encounter Last Filed Vital Signs Vital SignReadingTime TakenCommentsBlood Pressure--Pulse--Temperature-- Respiratory Dkwf1945 9:50 AM EDTOxygen Saturation--Inhaled Oxygen Concentration--Aqqzcr989 kg (250 lb)06/23/2025 9:50 AM WATGhcdur420.8 cm (5' 10 )06/23/2025 9:50 AM EDTBody [...] Insecurity: No Food Insecurity (06/24/2024) Received from [facility] Hunger Screening Within the past 12 [...] non palpable pedal pulses bilaterally NEURO: 5.07 [place] Anjum monofilament test intact to digits and [...] shoe gear. Patient have SERVANDO PVRs at [facility] for possible procedure and nail avulsions in the future with follow up post testing Yuri Rowe DPM [1] Allergies Allergen Reactions Gluten Meal GI intolerance Isosorbide Nitrate Headache [2] Past Medical History: Diagnosis Date Anemia Arthritis 08/16/2024 Atrial fibrillation (HCC) Cardiomyopathy, ischemic 08/16/2024 Celiac disease (HCC) 03/04/2019 Centrilobular emphysema ([facility]) 2025 Noted by [facility] last documented on [id number] Cervicalgia 04/08/2018 Chronic [...] heart failure (HCC) 2025 Noted by [facility] last documented on [id number] Mixed hyperlipidemia 06/24/2024 [...] Plan of Treatment DateTypeDepartmentCare Team (Latest Contact Info)Ilcgiuvvhdi57/08/2026 10:50 AM ESTProcedure Visit [facility] 112 [facility] 120 [place] [address] Yuri Rowe DPM 3[address] [facility] 5 [place] [address] 10/17/2025 10:15 AM ESTOffice Visit [facility] [address] [place] [address] Tree Carmona DO [address] [place] [place] [address] NameTypePriorityAssociated DiagnosesOrder ScheduleVascular US lower extremity arterial Doppler completeVascular UltrasoundRoutine PVD (peripheral vascular disease) Ordered: 06/23/2025documented as of this encounter Visit Diagnoses Diagnosis PVD (peripheral vascular disease) Unspecified peripheral vascular disease Other polyneuropathy Pain due to onychomycosis of toenails of both feet Paronychia, toe, left documented in this encounter Care Teams Team MemberRelationshipSpecialtyStart DateEnd Date Mario Zayas MD [address] [place] [address] PCP - GeneralFamily Cputmgbz09/16/25 Pauly Santacruz NP [address] [place] [address] Referring PhysicianFamily Medicine03/15/24documented as of this encounter
--- OUTSIDE RECORDS SUMMARY | 2025-07-05 12:56 | XMS_ITS | Encounter Summary ---
Author Organization [facility] Address [address] [place] [address] Care Team Providers Care Babbitter Name Role Phone Mario Zayas MD Primary Care Provider [phone] Encounter Details DateTypeDepartmentCare Team (Latest Contact Info)Bwuawrcmjeo92/23/2025Telephone [facility] [address] [place] [address] Tari Nevarez MA Social History Tobacco UseTypesPacks/DayYears UsedDateSmoking Tobacco: FormerCigarettes Smokeless Tobacco: NeverAlcohol UseStandard Drinks/WeekCommentsYes0 (1 standard drink = 0.6 oz pure alcohol)occasionalSex and Gender InformationValueDate RecordedSex Assigned at XuyzlYchl02/05/2025 3:26 PM EDTLegal RzdFuqt61/15/2024 2:46 PM ESTGender CgdtogcxBtvs34/05/2025 3:26 PM EDTSexual Orientation Heterosexual or Ubwpcajw81/05/2025 3:26 PM EDTdocumented as of this encounter Miscellaneous Notes * Telephone Encounter - Tari Nevarez MA - 06/30/2025 12:57 PM EDT MD Tari Hagan MA Good lipids and LFTs, continue atorvastatin and recheck in 6 months LVM to advise patient of his lab results per Dr. Whaley request. documented in this encounter Plan of Treatment Not on file documented as of this encounter Visit Diagnoses Not on filedocumented in this encounter Care Teams Team MemberRelationshipSpecialtyStart DateEnd Date Mario Zayas MD [address] [facility] [address] [address] PCP - GeneralFamily Medicine02/09/25documented as of this encounter
--- OUTSIDE RECORDS SUMMARY | 2025-07-05 12:56 | XMS_ITS | Patient Health Record ---
Author Organization [facility], [facility] Address [address] [place] [address] Support Name Relationship Address Phone Nikunj Causey Guarantor Unknown Reason For Referral No Information Problems Problem Type SNOMED Code ICD Code Onset Dates Problem Status W/U Status Risk Notes Problem Encntr screen for infections w sexl mode of transmiss (Z113)03/13/2017Active confirmed Plan Of Treatment No Information
--- OUTSIDE RECORDS SUMMARY | 2025-07-05 12:56 | XMS_ITS | Clinical Summary ---
Author Organization [facility] Address [address] [place] [address] Care Team Providers Care Java Solutions Architect Name Role Phone Pauly Santacruz BALL MILL OPERATOR Unavailable Mario Zayas MD Primary Care Provider [phone] Allergies Active AllergyReactionsCriticalityNoted DateCommentsGluten MealGI intoleranceLow 05/08/2022Isosorbide PbiiwsbUuuauqsaWxr08/14/2022 Medications MedicationSigDispense QuantityRefillsLast FilledStart DateEnd DateStatus albuterol [...] Inhale 3 mL5Active Active Problems ProblemNoted DateDiagnosed ZxstOiquhtuvbk41/14/2024DD (degenerative disc disease), ngvdhm4601/20/2024 Overview (01/20/2024): The patient is a 62 [...] has had no benefit with gabapentin increase. Kvxqrwrpxdl23/14/2024oronary artery disease involving coronary bypass graft of [place] heart without angina /12/2022History of maze procedure 05/20/2022Hx of CABG05/20/2022aroxysmal atrial imcbvjozlgix16/12/2022Thoracic aortic aneurysm without kvuwjbq6705/20/2022 Resolved Problems ProblemNoted DateDiagnosed DateResolved DateCentrilobular cpkjhuxmu27/18/2025 2025 Overview (2025): Noted by [facility] last documented on 20241027 Hypertensive heart disease with heart hvaingc49 Overview (2025): Noted by [facility] last documented on 20241001 Chronic ocgpdapdxdxhhem61hronic systolic heart failure Erectile yurxoefzymc64ardiomyopathy, dspvtbet94lass 2 severe obesity due to excess calories with serious comorbidity and body mass index (BMI) of35.0 to 35.9 in adult08/16/2024 2025Pain in wristPure jetxwvkwnxfvhdxrrusu28/09/2024 03/25/20253856Gxeijqzam12Mixed ksfaazvejanzyg44 Primary twfdxlfrpswa12Peripheral lqsxhbnzarwkhm75/20/2023 06/27/2023eliac ittwmzg62ervicalgia Headache in back of headhronic obstructive lung disease Sinus timcvdcacbr28 Encounters DateTypeDepartmentCare IpszInberbzqrqj71/16/2025 9:30 AM EDTOffice Visit [facility] [address] [facility] [address] [place] [phone] Yuri Rowe DPM PVD (peripheral vascular disease); Other polyneuropathy; Pain due to onychomycosis of toenails of both feet; Paronychia, toe, left06/23/2025amboo flowsheet [facility] [address] [facility] [address] [place] [address] Yuri Rowe DPM 06/23/20252386Oxmykd44/08/2025 9:30 AM EDTOffice Visit [facility] [address] [place] [address] Tree Carmona, DO Otorrhea of right ear (Primary Dx); Dysfunction of right eustachian tube; Chronic mxbgbcieqjbkbiw08/08/2025amboo flowsheet [facility] [address] [place] [address] Tree Carmona, 04/15/2025Travelfrom Last 3 Months Immunizations ImmunizationAdministration DatesNext DueInfluenza, High Dose Seasonal, Preservative Free05/23/2021Influenza, injectable, MDCK, preservative free, /06/2023fizer Purple Cap SARS-CoV-2 Gaqqjymtexf82/17/2021, 09/20/2020Tdap110/14/2022 Family History Medical HistoryRelationNameCommentsHeart diseaseFatherCancerMotherHeart disease MotherHypertensionMotherDiabetesSiblingRelationNameStatusCommentsFatherMother SiblingAlive Social History Tobacco UseTypesPacks/DayYears UsedDateSmoking Tobacco: ZohcymJafvrturxk275 09/08/1974 - 09/08/2009Smokeless Tobacco: Never Tobacco Cessation:Counseling Given: Yes Alcohol UseStandard Drinks/WeekCommentsNever0 (1 standard drink = 0.6 oz pure alcohol)ocassionallySex and Gender InformationValueDate RecordedSex Assigned at RkccoMaoe52/16/2023 9:38 AM EDTLegal DfmPswj5902/06/2023 9:13 AM EDTGender HwvdyxxaRohn40/16/2023 9:38 AM EDTSexual OrientationNot on file Last Filed Vital Signs Vital SignReadingTime TakenCommentsBlood Wyrwgspc064/8204 10:42 AM EDT Lqakm8744 10:42 AM EDTTemperature--Respiratory Hhwg8677 9:50 AM EDTOxygen Czdgzghmxo04%12/27/2024 10:42 AM EDTInhaled Oxygen Concentration-- Zusjok413 kg (250 lb)06/23/2025 9:50 AM HEPGnvflr739.8 cm (5' 10 )06/23/2025 9:50 AM EDTBody Mass Index35.8706/23/2025 9:50 AM EDT Plan of Treatment DateTypeDepartmentCare Team (Latest Contact Info)Blsxehsvwak07/08/2026 10:50 AM ESTProcedure Visit [facility] [address] [facility] [address] [place] [address] Yuri Rowe, DPM [address] [facility] [address] [place] [address] 10/17/2025 10:15 AM ESTOffice Visit [facility] [address] [place] [address] Tree Carmona DO [address] [place] [address] Insurance * Guarantor: Nikunj Gutierrez EAccount TypeRelation to PatientDate of BirthPhone Billing AddressPersonal/KonkijNtva1960 [address] [place] [address] Care Teams Team MemberRelationshipSpecialtyStart DateEnd Mario Zayas MD [address] [place] [phone] PCP - GeneralFamily Qwjismqz71/16/25 Pauly Santacruz NP [address] [place] [address] Referring PhysicianFamily Medicine03/15/24
--- OUTSIDE RECORDS SUMMARY | 2025-07-05 12:56 | XMS_ITS | Patient Health Record ---
Author Organization [facility] Main Address [address] [place] [address] Care Team Providers Care Manufacturing Supervisor 2Nd Shift Name Role Phone Jaquan Dowell MD Primary [...] MGdaily ORALActiveSymbicort 80-4.5 MCG/ACT2 puffs twice daily LXHWOLWMAN84ActiveSpiriva HandiHaler 18 MCG2 puffs twice daily AXCSVOQJKD62ActiveProAir HFA 108 (90 Base) MCG/ACT use every 4 hours HLIDQZSZNN81ActivePlavix 75 MGTake one by mouth daily ORALActiveMagnesium Oxide 400 (240 Mg) MGTake one (1) tablet by mouth twice a day ORALActive Problems Problem Type SNOMED Code ICD Code Onset Dates Problem Status W/U Status Risk Notes Problem 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, 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, 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 Active confirmed ProblemIron deficiency anemia (65467421)Iron deficiency anemia, unspecified (D50.9)03/09/2013ctiveconfirmedProblemTesticular hypofunction (105963059) Testicular hypofunction (E29.1)11/02/2013ctiveconfirmedProblemSleep apnea (02561400)Sleep apnea, unspecified (G47.30)11/25/2013ctiveconfirmedProblem Hereditary disorder of nervous system (241145476)Hereditary and idiopathic neuropathy, unspecified (G60.9)12/03/2013ctiveconfirmedProblemAngina pectoris (854383429)Angina pectoris, unspecified (I20.9)11/09/2015ActiveconfirmedProblem Cardiomyopathy (72553108)Cardiomyopathy, unspecified (I42.9)08/27/2012ctive confirmedProblemHeart failure (39143838)Heart failure, unspecified (I50.9) 03/09/2014ctiveconfirmedProblemDilatation of aorta (30971572)Thoracic aortic ectasia (I77.810)12/11/2015ActiveconfirmedProblemCeliac disease (432291211) Celiac disease (K90.0)ActiveconfirmedProblemIntestinal malabsorption (175218735) Intestinal malabsorption, unspecified (K90.9)09/27/2013ctiveconfirmedProblem Hemoptysis (33728542)Hemoptysis (R04.2)12/20/2013ctiveconfirmedProblemShortness of breath (836479193)Shortness of breath (R06.02)11/09/2015Activeconfirmed ProblemFatigue (90556977)Other fatigue (R53.83)11/08/2013ctiveconfirmedProblem Solitary pulmonary nodule (120054433)Solitary pulmonary nodule (R91.1)12/30/2013 ActiveconfirmedProblemAbnormal results of cardiovascular function studies (515992393)Abnormal result of other cardiovascular function study (R94.39) 11/30/2015Activeconfirmed Plan Of Treatment No Information Insurance Providers Payer Name Payer Address Payer Phone Subscriber Number Group Number Insured Name Patient Relationship to Insured Coverage Start Date Coverage End Date [employer] [address] [address] [place], [place] [address]42[address] [id number], RobertSelf - patient is the insured Medical (General) History Surgical History Surgery Date(Month/Year) 3 finger amputation,hernia, Total Hip Ar throplasty, Past SurgHx Till:04/22/2014
--- OUTSIDE RECORDS SUMMARY | 2025-07-05 12:57 | XMS_ITS | Clinical Summary ---
Author Organization [facility] Address [address] [place] [address] Phone Care Team Providers Care Bellmaker Name Role Phone Unavailable Primary Care Provider Unavailabl e Social History Tobacco UseTypesPacks/DayYears UsedDateSmoking Tobacco: Never AssessedSex and Gender InformationValueDate RecordedSex Assigned at BirthNot on fileLegal Sex Male08/03/2022 11:25 AM ESTGender IdentityNot on fileSexual OrientationNot on file Last Filed Vital Signs Vital SignReadingTime TakenCommentsBlood Azjeuxmf465/8609 2:58 PM EDT Mbjso3753 2:58 PM WLXXxnrrblfnnl02.8 ??C (98.2 ??F)05/29/2022 2:58 PM EDTRespiratory Gjzl9595 2:58 PM EDTOxygen Gcrmdaqohv86%05/29/2022 2:58 PM EDTInhaled Oxygen Concentration--Iurjam257 kg (239 lb 7 oz)05/29/2022 2:58 PM MTRRqlbfg781 cm (5' 7.32 )05/29/2022 2:58 PM EDTBody Mass Index37.1509 2:58 PM EDT Plan of Treatment Not on file
--- OUTSIDE RECORDS SUMMARY | 2025-07-05 12:57 | XMS_ITS | CCD ---
Author Organization [facility] Care Team Providers Care Golf Cart Attendant Name Role Phone ERICK MELLISA STOHLER Unavailable [...] Unavail able SAMSA ., DARNELL Admitting Unavailable [facility] Primary Care Unavailable SAMSA ., DARNELL Attending Unavailable SAMSA ., DARNELL Consulting Unavailable SAMSA ., DARNELL Admitting Unavailable [facility] Primary Care Unavailable SAMSA ., DARNELL Attending Unavailable SAMSA ., DARNELL Consulting Unavailable GREG, KACIE Consulting Unavailable [facility] Primary Care Unavailable SAMSA ., DARNELL Attending Unavailable SAMSA ., DARNELL Consulting Unavailable SAMSA ., DARNELL Admitting Unavailable [facility] Primary Care Unavailable DR ALEYDA DYER Consulting Unavailable SAMSA ., DARNELL Attending Unavailable SAMSA ., DARNELL Admitting Unavailable SAMSA ., DARNELL Consulting Unavailable Noam CHRISTIAN, Risa Unavailable EMELY CANTU Referring Unavailable KACIE DEL REAL Primary Care Unavailable GILLIAN TAYLOR Attending Unavailable KACIE DEL REAL Referring Unavailable RISA MCNULTY Primary Care Unavailable Kacie Del Real MD Primary Care Provider Noam HO-CHAO Archbald Primary Care Provider Darius HO-MANAGER REGISTRATION-Damaso Danni [place] Attending Provider Maroi Zayas MD Primary Care Provider [phone] Mario Zayas MD Attending Provider Mario Zayas Attending Unavailable Mario Zayas Admitting Unavailable Noam GLUE DRIER OPERATOR, Archbald Unavailable Mario Zayas MD Primary Care Provider [phone] LINSEY HALL Attending Unavailable TREE KRISHNAN Attending Unavailable TREE KRISHNAN Attending Unavailable YURI RODRIGUEZ Attending Unavailable BENNY DIAZ Attending Unavailable BENNY DIAZ Attending Unavailable BENNY DIAZ Referring Unavailable JUAN FLORES Referring Unavailable JUAN FLORES Admitting Unavailable JUAN FLORES Attending Unavailable BENNY DIAZ Attending Unavailable BENNY DIAZ Attending Unavailable Allergies Allergy ClassificationReported Allergen(s)Allergy TypeDate of OnsetReaction(s) Facility (19 sources)GlutenPropensity to adverse ckrsfdqha79-70-1557[facility] ([facility] sources)Isosorbide DinitrateDrug Thhbudd95-30-2106FkfsbmozSOOT [facility] (11 sources)Gluten; Translations: [GLUTEN]Propensity to adverse reactions to food (disorder)23-85-4595GfzDcofja Repository (11 sources)Isosorbide; Translations: [ISOSORBIDE MONONITRATE]Drug Allergy 25-75-1372VanpodriBpuKfuxhx Repository (1 source)ALLERGIES NOT ON FILE; Translations: [ALLERGIES NOT ON FILE]Propensity to adverse reactions (disorder)[facility] Repository Medications Current Medications MedicationDrug Class(es)DatesSig (Normalized)Sig (Original)[id number] 200 actuat albuterol 0.09 mg/actuat metered dose inhaler (20 sources)beta2-Adrenergic AgonistStart: 87-38-3513rdnd 1 puff(s) by inhalation every four hours [...] mg/ml inhalation solution (20 sources)Anticholinergic, beta2-Adrenergic AgonistStart: 78-96-9976wktx 1 mL by inhalation four times dailyIpratropium-Albuterol 0.5 mg-3 mg(2.5 mg base)/3 mL solution for nebulization Active 3 ML INHALATION Four times daily June 14, 2025 12:00am Complies with drug therapyStart: 43-08-0094igncnchaokk- albuterol (Duo-Neb) 0.5-2.5 mg/3 mL nebulizer solution Take 3 mL by nebulization in themorning and 3 mL at noon and 3 mL in the evening and 3 mL before bedtime. 02/20/2022 ActiveStart: 34-77-8636Eolbiilkqoo-Albuterol 0.5-2.5 (3) MG/3ML Inhalation Solution Quantity: 1350 Refills: 0 Ordered: 20-Feb-2022 DO Start : 20-Feb-2022 Activeapixaban 5 mg oral tablet (20 sources)Factor Xa InhibitorStart: 06-04-2023 End: 28-58-6380ydmg 1 tablet by mouth in the morningapixaban [...] sources)Platelet Aggregation Inhibitor, Nonsteroidal Anti-inflammatory Drug Start: 31-12-6578qupj 1 tablet by mouth once dailyAspirin 81 mg tablet Active 81 MG PO Daily June 14, 2025 12:00am Complies with drug therapyStart: 07-36-2270berk 1 tablet by mouth in the morningaspirin 81 MG EC tablet Take 81 mg by mouth in the morning. 07/25/2022 Activeatorvastatin 80 mg oral tablet (20 sources)HMG-CoA Reductase InhibitorStart: 17-70-6524ohqc 1 tablet by mouth once dailyAtorvastatin 80 mg tablet Active 80 MG PO Daily June 14, 2025 12:00am Complies with drug therapyStart: 01-20-2023 End: 58-63-7203qght 1 tablet by mouth in the morningatorvastatin (LIPITOR) 40 mg tablet Indications: Coronary artery disease involving coronary bypass graft of blackfeet heart without angina pectoris , Hx of CABG , Paroxysmal atrial fibrillation (CMS-HCC) , Aneurysm of ascending aorta without rupture , History of maze procedure Take 1 tablet (40 mg total) by mouth in the morning. 90 tablet 1 02/19/2024 Activeazithromycin 250 mg oral tablet (20 sources)Macrolide AntimicrobialStart: 74-68-9012rtiu 1 tablet by mouth once dailyAzithromycin 250 mg tablet Active 250 MG PO Daily June 14, 2025 12:00am Complies with drug therapycapsaicin 0.75 mg/ml topical cream (1 source)Start: 98-01-3715Rveyppscq 0.075 % cream Active 1 APPLIC TOPICAL [...] 0.05 mg oral capsule (20 sources)Vitamin DStart: 35-33-5621rfar 1 capsule by mouth once daily Cholecalciferol (Vitamin D3) 50 mcg (2,000 unit) capsule Active 50 MCG PO Daily June 14, 2025 12:00am Complies with drug therapy End: 09-79-5565jlnn 1 tablet by mouth in the morningcholecalciferol (Vitamin D- 3) 25 MCG (1000 UT) tablet Take 1,000 Units by mouth in the morning. 2025 Discontinueddapagliflozin 10 mg oral tablet (10 sources)Sodium-Glucose Cotransporter 2 InhibitorStart: 02-10-2025 End: 73-84-6478gwxtcmcyejoek (Farxiga) 10 MG Take 10 mg by mouth 02/10/2025 02/10/2026 Activeferrous sulfate 325 mg delayed release oral tablet (20 sources)take 1 tablet by mouth at mealtimeferrous sulfate 325 (65 Fe) MG EC tablet Take 65 mg by mouth in the morning. Take with meals. Zeqewz55 actuat fluticasone furoate 0.1 mg/actuat / umeclidinium 0.0625 mg/actuat / vilanterol 0.025 mg/actuat dry powder inhaler (20 sources)Anticholinergic, Corticosteroid, beta2-Adrenergic AgonistStart: 27-62-6042gdzp 1 puff(s) by inhalation in the morningTrelegy Ellipta 100-62.5-25 MCG/ACT aerosol powder Inhale 1 puff in the morning. 03/15/2022 ActiveStart: 97-43-4540Lhmrxah Ellipta 100-62.5-25 MCG/INH AEPB Quantity: 180 Refills: 0 Ordered: 15-Mar-2022 DO Start : 15-Mar-2022 ZadjzvAbuqqhlzudd-Qxuyivbsz-Dinrjlqg (2 sources)Start: 21-42-2450Kvmhpfzxxwc-Umeclidin-Vilanter (Trelegy Ellipta) 200-62.5-25 mcg blister with device Active 1 INH INHALATION Daily June 14, 2025 12:00am Complies with drug thtowhdlnsqwwzoutr-vvxzwwpct-iegtzopt (TRELEGY ELLIPTA) 200-62.5-25 mcg blister with device (10 sources)Start: 24-40-0918sunzzxlmpwc-umeclidin-vilanter (TRELEGY ELLIPTA) 200-62.5-25 mcg blister with device 1 puff in the morning. 03/15/2022 Active gabapentin 600 mg oral tablet (14 sources)Anti-epileptic AgentStart: 73-84-0131adjl 1 tablet by mouth three times dailygabapentin (NEURONTIN) 600 mg tablet Take 1 tablet (600 mg total) by mouth 3 (three) times a day. 03/30/2022 ActiveStart: 08-00-2314Fzjeexvhou 300 MG Oral Capsule Quantity: 270 Refills: 0 Ordered: 30-Mar-2022 DO Start : 58-Jdj-3835Zzplgn68 hr isosorbide mononitrate 30 mg extended release oral tablet (19 sources)Nitrate VasodilatorStart: 55-35-2896eclx 1 tablet by mouth once daily, then take 1 tablet by mouth every twenty-four hoursisosorbide mononitrate ER (Imdur) 30 MG 24 hr tablet Take 30 mg by mouth Daily 06/13/2022 Active levoFLOXacin 500 mg oral tablet (2 sources)Quinolone AntimicrobialStart: 2025 End: 27-33-8502fsyt 1 tablet by mouth once dailylevoFLOXacin (Levaquin) 500 MG tablet Indications: Otorrhea of right ear Take 1 tablet (500 mg) by mouth Daily for 10 days 10 tablet 2025 04/04/2025 Activelisinopril 5 mg oral tablet (20 sources)Angiotensin Converting Enzyme InhibitorStart: 73-78-2217xgth 1 tablet by mouth once dailyLisinopril 5 mg tablet Active 5 MG PO Daily June 14, 2025 12:00am Complies with drug therapyStart: 01-20-2023 End: 42-46-1926whfj 1 tablet by mouth once daily in the morninglisinopriL (PRINIVIL,ZESTRIL) 5 mg tablet Indications: Coronary artery disease involving coronary bypass graft of blackfeet heart without angina pectoris , Hx of CABG , Paroxysmal atrial fibrillation (CMS-HCC) , Aneurysm of ascending aorta without rupture , History of maze procedure TAKE 1 TABLET BY MOUTH ONCE DAILY IN THE MORNING 30 tablet 11/12/2024 ActiveStart: 74-76-4562Qzjpjajfms 5 MG Oral Tablet Quantity: 90 Refills: 0 Ordered: 7-Jeffrey-2022 DO Start : 14-Mar-2022 Active meloxicam 15 mg oral tablet (10 sources)Nonsteroidal Anti-inflammatory DrugStart: 43-05-8501kgyg 1 tablet by mouth once dailyMeloxicam 15 mg tablet Active 15 MG PO Daily June 14, 2025 12:00am Complies with drug qrbezqu08 hr metoprolol succinate 50 mg extended release oral tablet (20 sources)beta-Adrenergic BlockerStart: 30-49-0009ldkt 2 tablets by mouth every twenty-four hours in the morning, then take 1 tablet by mouth in the e veningMetoprolol Succinate 50 mg tablet extended release 24 hr Active 50 MG PO .COMPLEX June 142:00am 50 mg orally; take 2 tablets by mouth in the morning and take 1 tablet by mouth in the evening Complies with drug therapy Start: 17-07-2684znvlwwbmre succinate XL (TOPROL XL) 50 mg 24 hr tablet Indications: Coronary artery disease involving coronary bypass graft of blackfeet heart without angina pectoris , Hx of CABG , Paroxysmal atrial fibrillation (CMS-HCC) , Aneurysm of ascending aorta without rupture , History of maze procedure Take 100 mg in the morning and 50 mg at night 270 tablet 3 06/25/2023 ActiveStart: 50-02-2510eehg 1 tablet by mouth every twenty-four hoursMetoprolol Succinate ER 50 MG Oral Tablet Extended Release 24 Hour Quantity: 135 Refills: 0 Ordered: 23-Mar-2022 DO Start : 23-Mar-2022 Activenitroglycerin 0.4 mg sublingual tablet (20 sources)Nitrate VasodilatorStart: 00-89-0126eraxzibyomnzc (Nitrostat) 0.[address] 0.4 mg under the tongue every 5 (five) minutes if needed for chest pain 07/25/2022 ActiveStart: 07-25-2022 End: 87-21-7049fggzbxrvpcoau (NITROSTAT) 0.4 MG SL tablet Indications: Coronary artery disease involving coronary bypass graft of blackfeet heart without angina pectoris , Paroxysmal atrial [...] otic solution (15 sources)Quinolone AntimicrobialStart: 02-17-2023 End: 10-23-7100jfsfypqcx (Floxin) 0.3 % otic solution Indications: Otorrhea of right ear Administer 5 drops into the right ear in the morning and 5 drops before bedtime. Do all this for 10 days. 5 mL 1 2025 04/04/2025 Active omeprazole 40 mg delayed release oral capsule (20 sources)Proton Pump InhibitorStart: 57-77-3427ixxh 1 capsule by mouth in the morningomeprazole (PriLOSEC) [address] capsule Take 40 mg by mouth in the morning. 03/19/2022 ActiveStart: 86-23-9962Edofcmvrpq 40 MG Oral Capsule Delayed Release Quantity: 90 Refills: 0 Ordered: 19-Mar-2022 DO Start: 19-Mar-2022 ActiveOxygen (10 sources)oxygen Inhale continuously. Activepantoprazole 40 mg delayed release oral tablet (10 sources)Proton Pump InhibitorStart: 43-57-3240gqao 1 tablet by mouth once dailypantoprazole (ProtoNix) 40 MG EC tablet Take 40 mg by mouth Daily 02/07/2025 ActivepredniSONE 10 mg oral tablet (20 sources)Start: 80-16-9975yfmd 1 tablet by mouth once dailyPrednisone 10 mg tablet Active 10 MG PO Daily June 14, 2025 12:00am Complies with drug therapytake 1 tablet by mouth once dailypredniSONE (Deltasone) 20 MG tablet Take 20 mg by mouth Daily Activepregabalin 150 mg oral capsule (20 sources)Start: 02-18-2024 End: 78-30-5509hpmg 1 capsule by mouth in the morning, [...] mg oral tablet (20 sources)Phosphodiesterase 4 InhibitorStart: 53-07-4701tpne 1 tablet by mouth in the morningDaliresp 500 MCG tablet Take 500 mcg by mouth in the morning. 03/15/2022 Activesodium chloride 9 mg/ml inhalation solution (7 sources)Start: 07-97-4168dsss 1 mL by inhalation every twelve hoursSodium Chloride 0.9 % solution for nebulization Active 3 ML INHALATION Q12H June 14, 2025 12:00am Complies with drug therapyStart: 84-82-5465rllxos chloride 0.9 % nebulizer solution Inhale 3 mL 03/23/2025 Activespironolactone 25 mg oral tablet (8 sources)Aldosterone AntagonistStart: 02-09-2025 End: 27-96-9980knzj 1 tablet by mouth in the morningspironolactone (Aldactone) 25 MG tablet Take 25 mg by mouth in the morning. 02/09/2025 02/09/2026 Active SUMAtriptan 100 mg oral tablet (19 sources)Serotonin-1b and Serotonin-1d Receptor AgonistSUMAtriptan (Imitrex) 100 MG tablet ActiveTESTOSTERONE, BULK, MISC (10 sources)TESTOSTERONE, BULK, MISC by miscellaneous route. 100 mg 1 tablet daily Activetheophylline 400 mg extended release oral tablet (20 sources)MethylxanthineStart: 90-51-9529yanf 1 tablet by mouth every twelve hoursTheophylline 300 mg tablet extended release 12 hr Active 300 MG PO Q12H June 14, 2025 12:00am Complies with drug therapyStart: 91-71-5090qeag 1 tablet by mouth in the morning, [...] oral tablet (8 sources)Central alpha-2 Adrenergic AgonistStart: 29-33-1365xyvf 2 tablets by mouth at bedtimetiZANidine (Zanaflex) 4 MG tablet TAKE 2 TABLETS BY MOUTH AT BEDTIME FOR 30 DAYS 01/07/2025 Activetopiramate 50 mg oral tablet (8 sources)Start: 67-78-1226evyt 1 tablet by mouth once dailytopiramate 50 MG tablet Take 1 tablet by mouth Daily 02/21/2025 Activezinc gluconate 50 mg oral tablet (20 sources)zinc gluconate 50 MG tablet 1 (one) time each day at the same time Active Completed/Discontinued Medications MedicationDrug Class(es)DatesSig (Normalized)Sig (Original)acetaminophen 300 mg / codeine phosphate 30 mg oral tablet (13 sources)Opioid AgonistStart: 06-12-2023 End: 56-40-4688iwaz 1 tablet by mouth every six hours as needed for pain acetaminophen-codeine (Tylenol w/ Codeine #3) 300-30 MG tablet take 1 tablet by mouth every 6 hoursAS NEEDED FOR PAIN for 5 days 06/12/2023 2025 Discontinueddicyclomine hydrochloride 20 mg oral tablet (13 sources)AnticholinergicStart: 04-01-2023 End: 10-64-7331pgpn 1 tablet by mouth three times daily for paindicyclomine (Bentyl) 20 MG tablet take 1 tablet by mouth three times a day if needed for abdominal pain 04/01/2023 2025 MclyytjljlueNryqxwsjucf-Sckxehiva-Bprusi 200-62.5-25 MCG/ACT aerosol powder (13 sources)Start: 11-19-2022 End: 35-46-6356gjam 1 puff(s) by inhalation once daily Diasdlxmchc-Bzcttzgtl-Kytbpf 200-62.5-25 MCG/ACT aerosol powder Inhale 1 puff 1 (one) time each day. 11/19/2022 2025 DiscontinuedStart: 25-14-5230feci 1 puff(s) by inhalation once utsjbSdwjymamjjl-Cjpmunezh-Ntzukb 200-62.5-25 MCG/ACT aerosol powder Inhale 1 puff 1 (one) time each day. 11/19/2022 Activelysine 500 mg oral tablet (7 sources) End: 88-60-1494epzu 1 tablet by mouth in the morninglysine 500 mg tablet Take 1 tablet (500 mg total) by mouth in the morning. 06/24/2024 DiscontinuedMaca 500 MG capsule (13 sources) End: 64-11-3189Egpy 500 MG capsule as directed Orally 2025 Discontinued [place] 500 MG capsule as directed Orally Activenaproxen sodium 220 mg oral tablet (13 sources)Nonsteroidal Anti-inflammatory Drug End: 79-13-6680tvefreus sodium (Aleve) 220 MG tablet every 12 (twelve) hours. 2025 Myyqthykroan12 hr naproxen sodium 220 mg / pseudoephedrine hydrochloride 120 mg extended release oral tablet (20 sources)alpha-Adrenergic Agonist, Nonsteroidal Anti-inflammatory Drug End: 15-31-9481mjwi 1 tablet by mouth every twelve hours in the morning pseudoephedrine-Naproxen Na ER 120-220 MG tablet sustained-release 12 hour Take 1 tablet by mouth in the morning and 1 tablet before bedtime. 2025 Discontinuedsaw palmetto (Serenoa repens) 450 MG capsule (13 sources) End: 01-06-2354zpv palmetto (Serenoa repens) 450 MG capsule as directed Orally 2025 Discontinuedsaw palmetto (Serenoa repens) 450 MG capsule as directed Orally Activesoybean lecithin 1200 mg oral capsule (13 sources) End: 95-86-8114zxuh 1 capsule by mouth once dailyLecithin 1200 MG capsule Take 1 capsule every day by oral route. 2025 Discontinuedvitamin b12 1 mg oral tablet (20 sources)Vitamin B12 End: 80-05-3641kbcz 1 tablet by mouth in the morningcyanocobalamin (Vitamin B- 12) 1000 MCG tablet Take 1,000 mcg by mouth in the morning. 2025 Dis continued End: 15-04-2389jsclsjzpycmqkp (Vitamin B-12) 500 MCG tablet 1 (one) time each day at the same time. 2025 Discontinuedzonisamide 25 mg oral capsule (7 sources)Anti-epileptic Agent End: 91-13-3264wprq 1 capsule by mouth in the morning, then take 1 capsule by mouth at bedtimezonisamide (ZONEGRAN) 25 mg capsule Take 1 capsule (25 mg total) by mouth in the morning and 1 capsule (25 mg total) before bedtime. 06/24/2024 Discontinued Problems Active Problems Problem ClassificationProblemDateDocumented DateEpisodic/ChronicAortic; peripheral; and visceral artery aneurysms (20 sources)Aneurysm of thoracic aorta; Translations: [Thoracic aneurysm without mention of rupture]Onset: 747608-11-0775JshunbcMlmombl dysrhythmias (20 sources)Atrial fibrillation; Translations: [Atrial fibrillation]Onset: 266654-37-0605FpvhirgOuijhme obstructive pulmonary disease and bronchiectasis (20 sources)Chronic obstructive lung disease; Translations: [Chronic airway obstruction, not elsewhere classified]Onset: 01-22-2018 Resolved: 97-80-3054LunstbtCcwxsmnygguz of device; implant or graft (20 sources)Arteriosclerosis of coronary artery bypass graft; Translations: [Atherosclerosis of coronary arterybypass graft(s) without angina pectoris] Onset: 484589-26-4579XxexfpqBpyjdowvzy heart failure; nonhypertensive (14 sources)Chronic systolic heart failure; Translations: [Chronic systolic (congestive) heart failure]Onset: 08-16-2024 Resolved: 387115-58-2616TrinaubEfzuvaer atherosclerosis and other heart disease (18 sources)Coronary arteriosclerosis; Translations: [Coronary atherosclerosis of unspecified type of vessel, blackfeet or graft]Onset: 08-16-2024 Resolved: 211767-97-9996HgtthibLfnaoifvc of lipid metabolism (20 sources)Mixed hyperlipidemia; Translations: [Mixed hyperlipidemia]Onset: 06-24-2024 Resolved: 648475-82-0180TusgstlPlxdcbmwx hypertension (20 sources)Hypertensive disorder; Translations: [Unspecified essential hypertension]Onset: 06-24-2024 Resolved: 343456-39-4468TeypguoNeabnljbn of skin (4 sources)H/O Malignant melanoma; Translations: [Personal history of malignant melanoma of skin]EpisodicMycoses (2 sources)Pain in toe; Translations: [Tinea unguium]54-81-7459LnyupaazCplib aftercare (4 sources)Encounter for therapeutic drug level monitoring; Translations: [ENC THERAPEUTC DRUG LEVL MONITORING]Onset: 33-80-2924CeqgfdtqJseca and ill-defined heart disease (1 source)Heart disease, unspecified; Translations: [Heart disease, unspecified] Onset: 07-45-1345PzprtksKwuaa and ill-defined heart disease (5 sources)Left ventricular cardiac dysfunction; Translations: [Heart disease, unspecified]Onset: 193536-71-6309XvvudewOyyzl ear and sense organ disorders (4 sources)Otorrhea [...] system disorders (19 sources)Neuropathy; Translations: [Polyneuropathy, unspecified]Onset: 231726-50-9850XgdbogaJnmay nervous system disorders (20 sources)Polyneuropathy; Translations: [Polyneuropathy, unspecified]Onset: 06-27-2023 Resolved: 354249-73-5877DuvusgxRfwow nervous system disorders (3 sources)Carpal tunnel syndrome of left wrist; Translations: [Carpal tunnel syndrome, left upper limb]88-76-4190FmqdryhRxafb nervous system disorders (6 sources)Tremor; Translations: [Tremor, unspecified]40-64-8097LbmkhdftMfwwy nutritional; endocrine; and metabolic disorders (2 sources)Morbid (severe) obesity due to excess calories; Translations: [Morbid (severe) obesity due to excess calories]Onset: 43-56-7945YfxeabgPxumq nutritional; endocrine; and metabolic disorders (2 sources)Body mass index (BMI) 35.0-35.9, adult; Translations: [Body mass index (BMI) 35.0-35.9, adult]Onset: 69-19-0495VfxizfpIgyph screening for suspected conditions (not mental disorders or infectious disease) (2 sources)Abnormal result of other cardiovascular function study; Translations: [Abnormal result of other cardiovascular function study]Onset: 04-06-2025 EpisodicOtitis media and related conditions (4 sources)Dysfunction of right eustachian tube; Translations: [Unspecified Eustachian tube disorder, right ear]39-56-3534AdvvvwsyBbctutovfz and visceral atherosclerosis (2 sources)Peripheral vascular disease; Translations: [Peripheral vascular disease, unspecified]42-74-0336YqyklegXyda and subcutaneous tissue infections (2 sources)Paronychia of toe of left foot; Translations: [Cellulitis of left toe]85-71-8088LpjwgycrPcvwzntjzxo; intervertebral disc disorders; other back problems (20 sources)Degeneration of lumbar intervertebral disc; Translations: [DDD (degenerative disc disease), lumbar]Onset: 397408-61-3598Cwuppjy Unclassified (1 source)Neck Pain / 728704()Onset: 67-98-9296Ulckgnpuadiv (1 source)Stiffness / 343()Onset: 69-47-8098Gqklertibsph (1 source)Back Pain / 12()Onset: 40-98-0992Jyzsrpqvkwji (1 source)Upper Extremity Weakness / [id number]()Onset: 05-12-4113Sluddsmciudm (1 source)M54.2 - Cervicalgia,M51.369 - Other intervertebral disc degeneration, lumbar region without mention of lumbar back pain or lower extremity pain,M54.17 - Radiculopathy, lumbosacral regionUnclassified (1 source)Aneurysm of the ascending aorta, without rupture; Translations: [Aneurysm of the ascending aorta, without rupture]Onset: 46-05-0324Ldcvikksqsjx (2 sources)Abnormal stress testOnset: 36-80-0558Ibgglzzjjojz (1 source)Abdominal aortic aneurysm, without rupture, unspecified; Translations: [Abdominal aortic aneurysm, without rupture, unspecified]Onset: 12-31-2024 Unclassified (1 source)Obesity, class 2; Translations: [Obesity, class 2]Onset: 08-16-2024 Past or Other Problems Problem ClassificationProblemDateDocumented DateEpisodic/ChronicCardiac dysrhythmias (19 sources)Sinus tachycardia; Translations: [Tachycardia, unspecified]Onset: 01-22-2018 Resolved: 190392-77-8730JppchnpuSuyydqhr, including migraine (20 sources)Headache; Translations: [Occipital headache]Onset: 04-08-2018 Resolved: 235029-93-1777NgdlivjaOqgdlmyfzlyz with complications and secondary hypertension (8 sources)Hypertensive heart failure; Translations: [Hypertensive heart disease with heart failure]Onset: 2025 Resolved: 364423-59-5986SkawsztWcaxeffjlsjcil (8 sources)Arthritis; Translations: [Unspecified osteoarthritis, unspecified site]Onset: 08-16-2024 Resolved: 948130-07-9495AgbrywrFlemk aftercare (12 sources)Long-term current use of anticoagulant; Translations: [e learning 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 of 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]Onset: 08-16-2024 Resolved: 244803-24-1458HjgebdqmGdvhi aftercare (2 sources)e learning 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 of 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; Translations: [care home (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 of 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]Onset: 31-54-4655TzhlinfeKuucv gastrointestinal disorders (19 sources)Celiac disease; Translations: [Celiac disease]Onset: 03-04-2019 Resolved: 859805-69-4171PxoktqwOoisf male genital disorders (8 sources)Male erectile dysfunction, unspecified; Translations: [Impotence of organic origin]Onset: 08-16-2024 Resolved: 470189-59-8983OjkdwlgWyltw nervous system disorders (20 sources)Paresthesia; Translations: [Paresthesia of skin]Onset: 01-20-2024 03-68-4794GrolhitpQqoaa non-traumatic joint disorders (8 sources)Pain in wrist; Translations: [Pain in unspecified wrist]Onset: 08-16-2024 Resolved: 037229-33-6812FdpkexcoAyjdi nutritional; endocrine; and metabolic disorders (8 sources)Severe obesity; Translations: [Class 2 severe obesity due to excess calories with serious comorbidity and body mass index (BMI) of 35.0 to 35.9 in adult]Onset: 08-16-2024 Resolved: 976396-83-8828DuqtcnpGxbabsex codes; unclassified (20 sources)History of maze procedure for atrial fibrillation; Translations: [Other specified postprocedural states]Onset: 914897-04-7520Uaoxtees Screening and history of mental health and substance abuse codes (1 source)Personal history of nicotine dependence; Translations: [PERSONAL HISTORY OF NICOTINE DEPEND]Onset: 63-18-2682WkkeijfbErnzkxamrwa; intervertebral disc disorders; other back problems (20 sources)Cervicalgia; Translations: [Neck pain]Onset: 04-08-2018 Resolved: 613479-96-9606UxannrowNdsfrrtwopzu (1 source)Aneurysm of the ascending aorta, without rupture; Translations: [Aneurysm of the ascending aorta, without rupture]Onset: 38-96-1613Fvcogxwjyozb (1 source)Abdominal aortic aneurysm, without rupture, unspecified; Translations: [Abdominal aortic aneurysm, without rupture, unspecified]Onset: 12-31-2024 Unclassified (1 source)Obesity, class 2; Translations: [Obesity, class 2]Onset: 08-16-2024 Results Test NameValueInterpretationReference IcyhzSlvczbyb65mc 97-33-855306NglwcMD Tari Hagan MA Good lipids and LFTs, continue atorvastatin and recheck in 6 months LVM to advise patient of his lab results per Dr. Whaley request.Normal [facility] HospitalUrine Cultureon 31-17-6868[place] identified Cx Nom (U)No Growth 2 Days PERFORMED BY: [place] [address] PATHOLOGIST MECHANICAL ENGINEERING OFFICER MICHEL PACHECO M.D.NormalAscension Sacred Heart Bay Physician GroupComment on above: Performed By: #### CUU #### [place] [address] USAOffice Visiton 35-75-2646Smeabm-up [id number] Elise Tabor 1960 M Date Provider Department Center 05/27/2025 42509-DLAQMDBENNY GARZA Family History Problem Relation Age of Onset Coronary artery disease Mother Coronary artery disease Father Family Status - Relation Status Age at Mother Father Sister Alive Level of Service:04929 ME OFFICE/OUTPATIENT ESTABLISHED MOD MDM 30 MIN Reason for Visit and Comments: Follow-up [440554] - Patient is here today for a follow up s/p cath. Patient states heart desir he feels well. Patient states he fell around labor day and possibly tore a hamstring. Post-Cath [731] Coronary Artery Disease [187] Hyperlipidemia [182] Hypertension [175598] Thoracic aortic aneurysm without rupture [Other] Cardiomyopathy [104] Atrial Fibrillation [80] Congestive Heart Failure [127][facility] 12-57-3453OTXI Attestation signed by Juan Flores MD at 04/21/2025 12:57 PM I personally spoke with and examined Mr. Tabor with Dr. Saleh. He has a drop in LVEF and a positive stress test. Plan cors, LV and WALTERS angiography. He voices understanding of risks (, KS, bleeding, etc) and agrees to proceed. Patient: [...] Celiac disease 08/16/2024 Coronary artery disease involving blackfeet coronary artery of blackfeet heart without angina pectoris 08/16/2024 Erectile dysfunction 08/16/2024 Pain in wrist 08/16/2024 Peripheral polyneuropathy 08/16/2024 Cardiomyopathy, ischemic 08/16/2024 Chronic systolic heart failure (CMS/HCC) 08/16/2024 Chronic anticoagulation 08/16/2024 Pure hypercholesterolemia 08/16/2024 Class 2 severe obesity due to excess calories with serious comorbidity and body mass index (BMI) of 35.0 to 35.9 in adult ([facility]) 08/16/2024 Mixed hyperlipidemia 06/24/2024 Essential hypertension 06/24/2024 DDD (degenerative disc disease), lumbar 01/20/2024 Neuropathy 01/20/2024 Paresthesia 01/20/2024 History of maze procedure 05/20/2022 Paroxysmal A-fib ([facility]) 05/20/2022 Thoracic aortic aneurysm without rupture 05/20/2022 Cervicalgia 04/08/2018 Headache in back of head 04/08/2018 Abnormal cardiovascular stress test 04/05/2025 Allergies: Allergies[2] 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 Lars Saleh PGY-4 Street Commissioner [facility] [1] Past Medical History: Diagnosis Date Abnormal ECG Aneurysm Arrhythmia Atrial fibrillation ([facility]) Cardiomyopathy ([facility]) COPD (chronic obstructive pulmonary disease) ([facility]) Coronary artery disease Hyperlipidemia Hypertension [2] No [...] by mouth 3 times (more content not included)...[facility] HospitalHPon 04-89-9574OQZ&P reviewed. The patient was examined and there are no changes to the H&P. Will proceed with coronary angiography for further evaluation of abnormal stress test. Consent for blood products obtained. Risks, benefits, and alternatives to procedure discussed with patient in detail who expressed understanding and agreed to proceed.[facility] HospitalNURSNOTEon 04-21-2025 NURSNOTERN educated pt on d/c instructions. [...] wheeled off of unit with all of belongings.[facility] HospitalNURSNOTEPatient requesting resp do his DuoNeb nebulizer prior to having his cath done. Resp miller supervisor called to have the treatment done - states someone will be down as soon as possibleNoSelect Medical Specialty Hospital - Southeast OhioResults Follow-Upon 94-14-4228Fwfyrdo Follow-[id number] Elise Tabor 1960 M Date Provider Department Center 04/21/2025 76960-XLERPHBENNY DIAZ [facility] C[facility] CA HeartVAS Family History Problem Relation Age of Onset Coronary artery disease Mother Coronary artery disease Father Family Status - Relation Status Age at Mother Father Sister AliveNoOhioHealth Van [facility] Hospital 55-84-3421MIGijvcewm Office Cardiology Clinic Note Reason for cardiology [...] procedure, paroxysmal atrial fibrillation, s/p ablation in [place], thoracic aortic aneurysm, left ventricle dysfunction, hypertension, hyperlipidemia COPD, prior tobacco and alcohol abuse He used to follow with [facility] cardiology. He states that overall [...] Disp: , Rfl: theop (more content not included)...[facility] Office Visiton 77-76-0896Pgteho-up [id number] Elise Tabor 1960 M Date Provider Department Center 04/14/2025 23231-ACARDCBENNY GARZA [facility] Family History Problem Relation Age of Onset Coronary artery disease Mother Coronary artery disease Father Family Status - Relation Status Age at Mother Father Sister Alive Level of Service:20204 ME OFFICE/OUTPATIENT ESTABLISHED MOD MDM 30 MIN Reason for Visit and Comments: Follow-up [593049] Abnormal stress test [Other] Cardiac Cath scheduled 04/28/2025 [Other] Coronary Artery Disease [187] Hyperlipidemia [182] Congestive Heart Failure [127] Hypertension [748238] COPD [313] Home o2 3lpm via N/C 31/03 [Other]NormalMer[facility] Hospital36on 29-50-718230SvwtbMD Tari Hagan MA Overall echo is normal with minor valvular heart disease LVM to advise patient of Dr. Diaz's findings.[facility] HospitalOrders Onlyon 22-06-1691Sqwqpk [id number] Elise Tabor 1960 M Date Provider Department Center 04/05/2025 928-DANNI THOMAS [facility] Family History Problem Relation Age of Onset Coronary artery disease Mother Coronary artery disease Father Family Status - Relation Status Age at Mother Father Sister AliveOhioHealth Hardin Memorial HospitalResults Follow-Upon 38-90-4297Trggggp Follow-[id number] Elise Tabor 1960 M Date Provider Department Center 04/02/2025 BENNY NICOLE [facility] CAROL ANN CA HeartVAS Family History Problem Relation Age of Onset Coronary artery disease Mother Coronary artery disease Father Family Status - Relation Status Age at Mother Father Sister AliveNormalUTrumbull Regional Medical CenterOrders Onlyon 03-21-2025 Orders [id number] Elise Tabor 1960 M Date Provider Department Center 03/21/2025 [id number], HISTORICAL [facility] Family History Problem Relation Age of Onset Coronary artery disease Mother Coronary artery disease Father Family Status - Relation Status Age at Mother Father Sister AliveNoSelect Medical Specialty Hospital [facility] Ohio36on 23-57-135000Btnhrdytg lab results from 01/19/2025 and echo from [...] labs prior to apt in Apr-May 2025. [facility] HospitalOrders Onlyon 61-66-8585Cogiep Only [id number] Elise Tabor 1960 M Date Provider Department Center 02/04/2025 [id number]-VEWPBFPU, HISTORICAL SHAVON Cary Family History Problem Relation Age of Onset Coronary artery disease Mother Coronary artery disease Father Family Status - Relation Status Age at Mother Father Sister AliveNormalUniversCrystal Clinic Orthopedic CenterOffice Visiton 12-31-2024 Follow-up [id number] Elise Tabor 1960 M Date Provider Department Center 12/31/2024 59937-MEHSAUBENNY DIAZ Family History Problem Relation Age of Onset Coronary artery disease Mother Coronary artery disease Father Family Status - Relation Status Age at Mother Father Sister Alive Level of Service:28720 ME OFFICE/OUTPATIENT ESTABLISHED MOD MDM 30 MIN Reason for Visit and Comments: Coronary Artery Disease [187] Hyperlipidemia [182] Hypertension [988557][facility]36on Regarding echo and CTA chest performed on [...] increasing atorvastatin per Dr. Diaz. He verbalized understanding.[facility] HospitalOffice Visiton 02-91-7789Xhmkxx-up [id number] Elise Tabor 1960 M Date Provider Department Center 08/16/2024 86915-PDQLZRBENNY DIAZ Family History Problem Relation Age of Onset Coronary artery disease Mother Coronary artery disease Father Family Status - Relation Status Age at Mother Father Level of Service:92046 ME OFFICE/OUTPATIENT NEW MODERATE MDM 45 MINUTES Reason for Visit and Comments: Atrial Fibrillation [80] - Had EKG at last apt with [facility] in Jun 2024. Denies chest pain and bleeding on Eliquis. Coronary Artery Disease [187] - CABG and MAZE in 2016 Hypertension [288454] Hyperlipidemia [182] COPD [313] - [facility] Ordered By: Juana Hercules on 04-66-0642UrhGegefk Health SystemEMG 1 Extremeityon 39-85-1484HXOC HealthcareNVC 7-8 Nerveson 80-62-6678QDWM Healthcare THEOPHYLLINEon 04-73-2864CLJEBRGCAQVB17.0 ug/bJSvcddz75.0-20.0[place]let[place] HospitalComment on above:Performed By: #### BRYAN #### [facility] [address] [address] [address] Karen LeeTHEOPHYLLINEon 91-40-1354ALHSVVRGUOWK3.3 ug/mLCritically low 10.0-20.0[place] HospitalComment on above:Performed By: #### BRYAN #### [facility] [address] [address] [address] Karen Lu Pressure Cuff Sizeon 92-72-1529Ryex risk assessmenta) No falls within the last yearMG-[facility]-[place] Work Phone: Tobacco use status CPHSb) NoMG[facility] Work Phone: blood Pressure Cuff SizeLargeMG[facility] Work Phone: Office Visit (Thoracic and Esophageal Surgery)on 60-75-4829Jrlwuz-up visitDiagnoses/Problems Assessed Atrial fibrillation (427.31) (I48.91) COPD [...] Activated Vitals Vital Signs Recorded: 29May2022 02:58PM Olcmzygvckv45.2 F Heart Rate91 Jgjcxnfxogm57 Xjqvnopb776 Frdiptkix10 Blood Pressure Cuff SizeLarge Height5 ft 7.32 in Tsksbp185 lb 7 oz BMI Xbpojpwghd01.15 kg/m2 BSA Calculated2.19 Tobacco Useb) No Falls Screening (Age 18+)a) No falls within the last year O2 Bccoqyrzys69, Nasal Cannula Pain Scale7 Physical Exam The [...] MD; May 29 2022 3:24PM EST (Author) [facility] Referral Letteron 78-62-4963PM Referral LetterMr. Tabor is referred for consideration of LVRS. [...] MD; May 29 2022 3:24PM EST (Author) [facility] TouchworksCT LUNG CANCER SCREENINGon 78-64-8728JV LUNG CANCER SCREENING EXAMINATION: CT LUNG CANCER [...] Electronically authenticated by: ALEYDA DYER Date: 2022-04-26 16:20[facility] HospitalHEMOGLOBINon 50-79-7738Zfpebhwoad (Bld) [Mass/Vol]13.6 g/dL Critically low14.0-18.0[facility] HospitalComment on above:Performed By: #### HGB #### [facility] [address] [address] [address] 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.Patient is being discharged due to not returning to therapy and/or Plan of Care being .Recommend patient continue with HEP previously instructed on during therapy as appropriate.Patient may be reinstated in therapy upon new evaluation and orders from the physician.Thank You.[facility] Liverpool City HospitalProgress Noteson 04-23-2018 Protein mass concEncounter Department: [facility]ENTERAB THERAPYProgress Notes by Berlin Valle PTA at 04/23/2018 9:00 AMAuthor: Berlin Valle PTAService: (none)Author Type: Physical Therapy AssistantFiled: 04/23/2018 9:46 AMEncounter Date: 04/23/2018Status: SignedEditor: Berlin Valle PTA (Physical Therapy Assist ant)Physical Therapy Treatment NoteVisit Number: 5Encounter diagnosis:ICD-10-CM1.LppoxelszuqU03.22.Headache in back of tinvQ92Hcapagj Medical Diagnosis:SUBJECTIVE: Pt requests today being his [...] t-band- Scap retract x15- B UE ext a95Caxd tucks x15GTB rows 2y01Rvqscj- STM along c-spine paraspinals, UT, and levator [...] in rotation and SB without increase in pain.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 Goals: LTG to be met by 06/08/18 [...] Treatment Time: 10Total Treatment Time: 25 PT TreatmentNoFisher-Titus Medical Center Progress Noteson 90-02-3403MeqgbnhKerbs Memorial Hospital Department: [facility] REHAB THERAPYProgress Notes by Berlin Valle PTA at 04/21/2018 9:00 AMAuthor: Berlin Valle PTAService: (none)Author Type: Physical Therapy AssistantFiled: 04/21/2018 9:46 AMEncounter Date: 04/21/2018Status: SignedEditor: Berlin Valle PTA (Product Inspection Supervisor)Physical Therapy Treatment NoteVisit Number: 4Encounter diagnosis:ICD-10-CM1.DwqafcedoajK14.22.Headache in back of fnvtK25Ybanrxo Medical Diagnosis: CervicalgiaSUBJECTIVE:Compliance with HEP: Pt states [...] 30'Green t-band- Scap retract x15- B UEext y87Wlrz tucks x15GTB rows 8z03Csecdm- STM along c-spine paraspinals, UT, and levator [...] in rotation and SB without increase in pain.Assisted Goals: LTG to be met by 06/08/18 [...] Treatment Time: 17Total Treatment Time: 32 PT TreatmentNoFisher-Titus Medical CenterProgress Noteson 04-16-2018 Protein mass concEncounter Department: [facility]AB THERAPYProgress Notes by Collette Pisano PTA at 04/16/20189:00 AMAuthor: Collette Pisano PTAService: (none)Author Type: Physical Therapy AssistantFiled: 04/16/2018 12:11 PMEncounter Date: 04/16/2018Status: SignedEditor: Collette Pisano PTA (Physical Therapy As sistant)Physical Therapy Treatment NoteVisit Number: 3Encounter diagnosis:ICD-10-CM1.PpbclnrsoapL57.22.Headache in back of ujzjH94Svuanbe Medical Diagnosis: CervicalgiaSUBJECTIVE:Compliance with HEP:Patient reports compliance [...] t-band- Scap retract x15- B UE ext s77Ydaw tucks x15GTB rows 8t89Routfg- STM along c-spine paraspinals, UT, and levator [...] in rotation and SB without increase in pain.Assisted Goals: LTG to be met by 06/08/18 [...] Treatment Time: 28Total Treatment Time: 43 PT TreatmentNoFisher-Titus Medical CenterProgress Noteson 19-12-3774RqeklmmKerbs Memorial Hospital Department: [facility]AB THERAPYProgress Notes by Berlin Valle PTA at 04/10/2018 9:00 AMAuthor: Berlin Valle PTAService: (none)Author Type: Physical Therapy AssistantFiled: 04/10/2018 10:21 AMEncounter Date: 04/10/2018Status: SignedEditor: Berlin Valle PTA (Product Inspection Supervisor)Physical Therapy Treatment NoteVisit Number: 2Encounter diagnosis:ICD-10-CM1.FkjyxrtswfwN09.22.Headache in back of qumoD41Doimtgy Medical Diagnosis: CervicalgiaSUBJECTIVE:Compliance with HEP: Pt reports [...] Humana medicareAuthorized visits: 30Precautions: NA.Date: 04/08/18Visit: 1 Date: 04/10/18Visit: 2 /Date:Visit : /Date:Visit: /Date:Visit: /PT EVALUBE, L1, x6'Suboccipital releaseSTM to paraspinalsDoorway stretch 1x30'' (d/c due to shoulder pain)Manual UT stretch x2 30'Manual Levator stretch x2 30'Suboccipital releaseSTM to paraspinalsManual UT stretch 3x 30'Chin tucks x15GTB rows 2n38ZAD: chin tuck, UT andLS stretch, scap squeeze.Mechanical [...] in rotation and SB without increase in pain.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 Goals: LTG to be met by 06/08/18 [...] Treatment Time: 30Total Treatment Time: 45 PT TreatmentSelect Medical Ohiohealth Rehabilitation HospitalProgress Noteson 18-63-3801Wuwfibz [facility] concEncounter Department: [facility]AB THERAPYProgress Notes by Jacquelyn Rivera PT at 04/08/2018 1:45 PMAuthor: Jacquelyn Rivera PTService: (none)Author Type: Physical TherapistFiled: 04/08/2018 6:47 PMEncounter Date: 04/08/2018Status: SignedEditor: Jacquelyn Rivera PT (Physical Therapist)Physical Therapy EvaluationEncounter diagnosis:ICD-10-CM1.RrdgradvsssK21.22.Headache in back of lhusW19Uubaohwff provider: Mellisa Clarke,*Primary Medical Diagnosis: CervicalgiaPlan of [...] Home: 15Prior Level of Functioning: Level of Schneider: Modified IndependentCurrent Level of Functioning: Outcome Scor e: NDI (26 raw score NDI, 52% disability) Functional deficits: reports no functional deficits, ableto do everything just withincreased pain. Level of Schneider: Modified IndependentSleep Status/Sleep Hygiene: Preferred Sleep Position: [...] codes)G8978 Mobility Current Status; Severity: CK 40-59% nouopxjuW9668 Mobility Goal Status; Severity: CI 1-19% impairedOutcome measure(s)/Test(s) used/Result(s): 52% disability on NDI.Clinical Judgment: Moderate to severe impairement, decreased neck ROM and strength, tenderness totrigger points moderateNew Category to Uuucrb-Ir-Adpw only?:NoEvaluation Breakdown DescriptionPatient HistoryComorbiditiesEnvironmental/Personal factorsLearning/CognitionDomestic life*Issue must [...] in rotation and SB without increase in pain.Assisted Goals: LTG to be met by 06/08/18 [...] Time: 60Time in: 1:44Time Out: 2:45 PT alEast Liverpool City Hospital Vital Signs Date TimeVital SignValuePerforming GsaqwkpxxPsdzyawj96-08-8948 09:50-0400Body .8 cmYuri Rodriguez DPM Work Phone: [facility] HospitalGutimosnuc10-66-6143 09:50-0400Body mass index (BMI) [Ratio]35.87 kg/t6ZkbijsjmYuri Rodriguez DPM Work Phone: [facility] HospitalKpefdxutvs85-23-3817 09:50-0400Body .4 kgFaheemcorbyivonne Rodriguez DPM Work Phone: [facility] HospitalPurflqdsgs92-04-1824 09:50-0400Respiratory rate18 /Gaylacorbyivonne Jae DPM Work Phone: [facility] HospitalYumpaucset12-90-3343 11:48-0400Body xrhgae666.13 kgDokevin Zayas MD Work Phone: [facility]10-07-2025 11:48-0400 Heart rate75 /Roslyn Zayas MD Work Phone: [phone])291-[address] [place], [place] 1341310-07-2025 11:48-0400 Inhaled oxygen flow rate3 L/Roslyn Zayas MD Work Phone: [phone])022-[address] [place], [place] 1341310-07-2025 11:48-0400 Respiratory rate16 /Roslyn Zayas MD Work Phone: [phone])937-[address] [place], [place] 1341310-07-2025 11:48-0400 SaO2% (BldA) [Mass fraction]93 %Mario Zayas MD Work Phone: 1(611)565-[address] [place], [place] 1341308-08-2025 09:22-0400 Body razajk103.8 cmPaul Biedenbach DO Work Phone: [facility] HospitalQeguotwbjn37-53-4980 09:22-0400Body mass index (BMI) [Ratio]35.87 kg/m2Paul Biedenbach DO Work Phone: [facility] HospitalJlqvvncxmg23-13-9089 09:22-0400Body vuirea761.4 kgPaul Biedenbach DO Work Phone: [facility] HospitalZuzajxbsln53-94-9798 09:00-0400Body fncoda671.8 cmPaul Biedenbach DO Work Phone: [facility] HospitalOpoonxsayq96-93-5378 09:00-0400Body mass index (BMI) [Ratio]35.87 kg/m2Paul Biedenbach DO Work Phone: [facility] HospitalPjvkgyfttd15-48-8551 09:00-0400Body yeopoo496.4 kgPavesna Krishnan DO Work Phone: [facility] HospitalQgmhuthjdf60-44-5190 10:42-0400Body irzylu315.8 Yair Hall PA Work Phone: NOThe [facility] Institute of St. LouisXqxrqginum60-53-3543 10:42-0400Body mass index (BMI) [Ratio]35.87 kg/m2Linsey Hall PA Work Phone: [facility] HospitalYhdrahghpu65-08-3690 10:42-0400Body .4 Moira Hall PA Work Phone: [facility] HospitalGmufabbdgt57-85-7439 10:42-0400Diastolic blood cstembmf38 mm[Hg]Linsey Hall PA Work Phone: [facility] HospitalHracfsxapo59-59-6525 10:42-0400Heart rate75 /min Linsey Hall PA Work Phone: [facility] HospitalQofenqjcps01-09-1076 10:42-0400Respiratory rate16 /minLinsey LI Work Phone: [address] [address]Jqcczkspgb55-66-4501 10:42-1583BfQ7% (BldA) [Mass fraction]94 %Linsey Hall PA Work Phone: [facility] HospitalPxhzcjikgw22-14-0268 10:42-0400Systolic blood riaydczi343 mm[Hg]Linsey Hall PA Work Phone: [facility] HospitalCvmemnsbre35-24-7099 13:52-0400Body .7 Kristi Taylor MD Work Phone: [facility]10-17-2024 13:52-0400Body mass index (BMI) [Ratio]37.26 kg/l6JzngpGillian Taylor MD Work Phone: [facility]10-17-2024 13:52-0400Body ifivoc094.13 Rafael Taylor MD Work Phone: [facility]10-17-2024 13:52-0400Diastolic blood egwtoron22 mm[Hg]Gillian Taylor MD Work Phone: [facility]10-17-2024 13:52-0400Heart rate 74 /minGillian Taylor MD Work Phone: [facility]10-17-2024 13:52-5715NmO8% (BldA) [Mass fraction]94 %Gillian Taylor MD Work Phone: [facility]10-17-2024 13:52-0400Systolic blood ezojpwoa584 mm[Hg]Gillian Taylor MD Work Phone: [facility]10-02-2024 11:17-0400Body nfbryb174.7 cmAakash LI Work Phone: [facility] HospitalTrvjntkbnm06-03-4057 11:17-0400Body mass index (BMI) [Ratio]38.01 kg/m2Linsey LI Work Phone: [facility] HospitalEbohubzenm70-09-5695 11:17-0400Body ciugnv179.4 kgLinsey LI Work Phone: [facility] HospitalEgmbexpswc30-72-6993 11:17-0400Diastolic blood mm[Hg]Lnisey LI Work Phone: [employer] InitiativeThe [facility] Institute [facility] St. LouisKffnxegybp62-26-9296 11:17-0400Heart rate78 /min Linsey LI Work Phone: [employer] InitiativeThe [facility] Institute [facility] St. LouisMitagdmmpe80-89-8836 11:17-0400Respiratory rate16 /minLinsey LI Work Phone: NOThe [facility] of St. LouisSofisfrrrq93-70-1502 11:17-4598HcA8% (BldA) [Mass fraction]93 %Linsey LI Work Phone: NOThe [facility] St. LouisZcfdnnthhi11-33-8929 11:17-0400Systolic blood aktzdxfd418 mm[Hg]Linsey Hall PA Work Phone: NOThe [facility] Institute of St. LouisEmgueumgqs94-95-8706 14:58-0400Body zcjaxj645.99 cmReferring Provider UnknownMG[facility] Work Phone: [phone] 145-132409-21-2022 14:58-0400Body mass index (BMI) [Ratio] 37.15 kg/f5Zhtgfybbx Provider UnknownMG[facility] Work Phone: [phone] 896-861409-21-2022 14:58-0400Body surface area Derived from formula2.19 z3Mnheubame Provider UnknownMG[facility] Work Phone: 1(112) 930-567009-21-2022 14:58-0400Body .2 [degF] Referring Provider UnknownMG[facility] Work Phone: 1(931) 530-917109-21-2022 14:58-0400Body ekiqhm812.61 kgReferring Provider UnknownMG[facility] Work Phone: 1(604) 308-979309-21-2022 14:58-0400Diastolic blood gaigexjm99 mm[Hg] Referring Provider UnknownMG[facility] Work Phone: 1(638) 904-627009-21-2022 14:58-0400Heart rate91 /minReferring Provider UnknownMG[facility] Work Phone: 1(991) 817-497309-21-2022 14:58-0400Respiratory rate18 /minReferring Provider UnknownMG[facility] Work Phone: 1(549) 560-965209-21-2022 14:58-0580XjO3% (BldA) [Mass fraction]93 % Referring Provider UnknownMG[facility] Work Phone: 1(404) 968-255509-21-2022 14:58-0400Systolic blood suddvsck546 mm[Hg] Referring Provider UnknownMG[facility] Work Phone: 1(165) 368-474309-21-2022 14:58-66274 1Referring Provider UnknownMG- [facility] Work Phone: comment on above:PainScale Encounters Encounter DateEncounter TypeCare ProviderFacilityStart: 06-23-2025 End: 20-17-4894Wohkis flowsheetYuri Rodriguez DPM Work Phone: [facility] PODIATRYStart: 06-23-2025 End: 03-46-7017Xutkum flowsStan Rodriguez DPM Work Phone: [facility] PODIATRYStart: 06-23-2025 End: 44-48-2310wnecbhbfuhOURERMAI A BROWNNot AvailableStart: 06-23-2025 End: 46-67-1917Quqzbe outpatient new 30 minutesYuri Rodriguez DPM Work Phone: [facility] PODIATRYComment on above:PVD (peripheral vascular disease); Other polyneuropathy; Pain due to onychomycosis of toenails of both feet; Paronychia, toe, leftStart: 06-14-2025 End: 77-36-5015jcwyboffjbCwayaxj M Hoy MD Work Phone: [facility] Work Phone: Start: 06-14-2025 End: 35-63-3298Wlvxkia encounter Goyo Mccoy EEJG-HAU-Q-FPG [facility] [place] Work Phone: Start: 06-14-2025 End: 08-17-8849yptehtturiSfmsaoq M Hoy MD Work Phone: [facility] [place] Work Phone: Start: 06-14-2025 End: 17-74-4350Akgvqxdy ReferredMario Hogan MD-LAB [facility] Start: 05-27-2025 End: 10-94-5536ktvdijozmtPCMDB [facility] Centertart: 77-67-0867bxgodiokttNURCEDUAARZ [facility] Hospitaltart: 04-21-2025 End: 20-63-2994mifxkwylqhDJWWTIAAFVT [facility] Start: 04-15-2025 End: 88-30-5785Vhrnzp flowsHesham Krishnan DO Work Phone: noms [place] OtolaryngologyStart: 04-15-2025 End: 31-66-5844Uribif flowsheetPaul S Biedenbach DO Work Phone: [facility] [place] OtolaryngologyStart: 04-15-2025 End: 73-33-9983Pskkqa outpatient visit 25 minutesPaul S Biedenbach DO Work Phone: [facility] [place] OtolaryngologyComment on above:Otorrhea of right ear (Primary Dx); Dysfunction of right eustachian tube; Chronic anticoagulationStart: 04-15-2025 End: 53-41-0257djojgluztsZWIC S BIEDENBACHNot AvailableStart: 04-14-2025 End: 72-76-4674ycbslwngdpNCXMJSelect Medical Specialty Hospital - [place] Northtart: 2025 End: 80-49-4665Dijaak flowsheetPaul S Biedenbach DO Work Phone: no ENT SANDUSKYStart: 2025 End: 31-17-0506Gnpusj flowsheetPaul S Biedenbach DO Work Phone: NO ENT SANDUSKYStart: 2025 End: 10-37-7561Djgthj outpatient visit 15 minutesPaul S Biedenbach DO Work Phone: NOMS ENT SANDUSKYComment on above:Dysfunction of right eustachian tube (Primary Dx); Otorrhea of right ear; Chronic anticoagulationStart: 2025 End: 31-21-6863optnkgjqsfCVNJ S BIEDENBACHNot AvailableStart: 12-31-2024 End: 05-05-3673iqcihkmqpkRWDKQSelect Medical Specialty [facility] - [place] Northtart: 12-27-2024 End: 77-57-3710Snmeze flowsheetAngela Lowe PA Work Phone: aNA PRESTONtart: 12-27-2024 End: 89-81-3172Ydnkaf flowsheetAngela Lowe PA Work Phone: ana BELLEVUEStart: 12-27-2024 End: 47-03-3715Qlqwrq outpatient visit 15 minutesLinsey LI Work Phone: ana ASHISHUEComment on above:Degeneration of intervertebral disc of lumbar region with discogenic back pain and lower extremity pain (Primary Dx); Lumbosacral radiculopathy; Neck pain; Tremor; Chronic daily headacheStart: 12-27-2024 End: 07-78-2619sqeitphmpaZUYS HILLNot AvailableStart: 12-20-2024 End: 53-55-4048LucrleBdaecte Hauler YOLANDAHARRIETT LUNAEVUEComment on above:DDD (degenerative disc disease), lumbar (Primary Dx); Lumbosacral radiculopathyStart: 11-25-2024 End: 35-58-6817Rolzzlvyo encounterJotyler Mauro [facility] Comment on above:transfering careStart: 11-09-2024 End: 50-86-2366NzpfgrIsugobr P Kyser PA-C Work Phone: [facility] CardiologyComment on above:Med RefillStart: 09-07-2024 End: 89-63-7933HxtjzhGnfo Hill PA Work Phone: noWA [place] [facility] ROUTEComment on above:DDD (degenerative disc disease), lumbar; Lumbosacral radiculopathyStart: 08-16-2024 End: 47-98-6813cnoaiashxmWMQEQSelect Medical Specialty Hospital - [place] Northtart: 07-29-2024 End: 79-38-4082FsunskTmxyjlyGriselda TOVAR Work Phone: [facility]ca Physicians CardiologyComment on above:Med RefillStart: 06-24-2024 End: 81-06-6891Mxajej outpatient visit 25 minutesGillian Taylor MD Work Phone: Pro[facility] Hospitalca Physicians CardiologyComment on above: Coronary artery disease involving coronary bypass graft of blackfeet heart without angina pectoris (Primary Dx); Paroxysmal atrial fibrillation (CMS-HCC); Primary hypertension; Mixed hyperlipidemia; Left ventricular dysfunctionStart: 06-24-2024 End: 83-14-9704gxcqfakzlzLKGDG German BONDPocahontas Memorial Hospital HospitalStart: 06-23-2024 End: 80-77-4366Dkygcvjhh encounterJuana Hercules CMAMount Ascutney HospitalMedica Physicians CardiologyStart: 06-09-2024 End: 32-77-7778Qzbcdx outpatient visit 15 [facility] shore hospitalMelitachina Rafael LI Work Phone: noms [place] ROUTEComment on above:Degeneration of intervertebral disc of lumbar region with discogenic back pain and lower extremity pain (Primary Dx); Neck pain; Chronic daily headache; TremorStart: 06-08-2024 End: 42-98-8347Zusykm Amelia Lackey MD Work Phone: noms [place] ROUTEStart: 06-08-2024 End: 20-97-5717Htxrgs Amelia Lackey MD Work Phone: noms [place] ROUTEStart: 06-08-2024 End: 09-62-9848Pevbkum encounter Alicia Lackey MD Work Phone: noms [place] ROUTEComment on above:Carpal tunnel syndrome of left wrist (Primary Dx)Start: 05-21-2024 End: 70-69-5228WsaoqoUanvClay Soto Physicians CardiologyComment on above:Med RefillStart: 05-17-2024 End: 43-38-4403nksfonfsypPUKIDH E OOSTRANOMS HealthcareComment on above:DDD (degenerative disc disease), lumbar; Lumbosacral radiculopathyStart: 05-14-2024 End: 75-36-9526Redfmufgb encounterJuana BurrMedica Physicians CardiologyStart: 04-30-2024 End: 58-52-6516Mqvkfoyqk encounterAshlee [facility] Start: 02-18-2024 End: 95-77-3856CfwufzQidngeRosa [facility] Physicians CardiologyComment on above:Med RefillStart: 01-24-2024 End: 13-97-0703ZaqnyoOjhfdb D Grande MD Work Phone: [facility] Physicians CardiologyComment on above:Med RefillStart: 12-30-2022 End: 86-31-7417suwmpclgkzHOGSEU SAMSA .Facility:H2Mvizg: 12-17-2022 End: 23-71-2072oclgxvkxjqCWPXYF SAMSA .Facility:M0Kvgou: 77-14-0445ZWDPX Referring Provider UnknownMG-Pulm Sleep-[facility] Work Phone: Start: 45-52-2807Pwwylj outpatient new 45 minutes Referring Provider UnknownMG-CT Surgery-[place] Work Phone: Start: 50-30-8962ghtqhhyvdcXuLeyla Peña Facility:CStart: 05-21-2022 End: 99-17-2429mzggdkggixCRTLDW SERVICES [facility] CENTERFacility:G3Fhmfw: 04-26-2022 End: 13-62-0499hhnyckossoWGUQOL SERVICES [facility] CENTERFacility:K7Pzfmg: 04-23-2018 End: 15-72-2265Csnspud encounterSCOTT D [facility] Campustart: 04-21-2018 End: 73-53-6883Irebrqi encounterSCOMERRILL Demarco [facility] Campustart: 04-16-2018 End: 61-16-8997Qufrryb encounterRADENIZ [place] [facility] Centertart: 04-10-2018 End: 16-58-4091Mzvlvrr encounterSCOTT Dav [facility] Campustart: 04-08-2018 End: 26-89-6576Kxecrrm encounterSHERAlix LISA [facility] Patient encounter statusReferring Provider UnknownMG-Pulm [facility] Work Phone: Procedures DateProcedureProcedure DetailPerforming ClinicianStart: 80-51-7010Sqroth-up visitFollow-upSAMAR KHOURYStart: 89-45-9038Xhn routine ecg w/least 12 lds w/i&r Gillian Taylor MD Work Phone: Start: 30-83-2571Gmgyks-up visitFollow-upLAURA German TAYLORStart: 06-08-2024 End: 42-34-8902Rlzjnw emg ea extremty w/paraspinl area Ritesh Lackey MD Work Phone: Start: 61-63-7437Jbbsdhg of coronary artery bypass graftingHx of CABGElise Borjas MD Work Phone: Cataract surgeryReferring Provider UnknownCoronary artery bypass graftReferring Provider UnknownHernia repairReferring Provider UnknownHistory of coronary artery bypass graftingHx of CABGNeisha Weathers RN History of coronary artery bypass graftingHx of CABGElise Borjas MD Work Phone: History of coronary artery bypass graftingHx of CABG Radha Griffin RNHistory of coronary artery bypass graftingHx of CABGPablo Zaragoza POSTDOCTORAL FELLOW-FBI INVESTIGATOR Work Phone: History of coronary artery bypass graftingHx of CABG Keron Arreguin PA-C Work Phone: Prosthetic arthroplasty of shoulderReferring Provider UnknownTotal replacement of hipReferring Provider Unknown Plan of Treatment DateCare ActivityDetailAuthorStart: 00-98-3732NFoJ,Tdap and Td Vaccines (2 - Td or Tdap)DTaP,Tdap and Td Vaccines (2 - Td or Tdap)[facility] SystemStart: 10-17-2025 End: 32-38-0774Ssrkbyr encounter /09/2026 10:15 AM EST Office Visit [facility] [facility] [address] [place] [phone] Tree Krishnan, [address] [place] [address] [facility] [place] OtolaryngologyStart: 09-15-2025 End: 26-36-0564Zzwrfxh encounter xbabhuxgp08/08/2026 10:50 AM EST Procedure Visit [facility] [address] [place] [address] Yuri Rodriguez, DPM [address] [address] [place] [address] [facility] PODIATRYStart: 10-14-8436Bmkhq BMI ScreeningAdult BMI ScreeningProMercy Health Anderson Hospital SystemStart: 46-27-4998Cbjbehf ScreeningTobacco ScreeningProMercy Health Anderson Hospital SystemStart: 21-50-4329Axcrinmm identified in Urine by CultureUrine [facility] Start: 19-88-9576Pzkxxxv referralSelect Medical Specialty [facility] [place] [facility] Work Phone: Start: 87-59-1005Swooi [facility] Hospitaltart: 05-16-2025 End: 16-80-6748Qzfpinq encounter gakftdkfd09/08/2025 10:40 AM EDT Office Visit HARRIETT SANTIAGO [address] [place] [phone] Linsey Hall PA [address] [place] [address] HARRIETT LUNAARTtart: 42-61-0462Cakbkqcjn vaccinationNOMS HealthcareStart: 04-15-2025 End: 81-69-5229Pvyqsnc encounter procedureNOMS ENT SANDUSKYComment on above: ArrivedStart: 2025 End: 69-24-7670Tojhylz encounter nmxxoyain99/18/2025 9:15 AM EDT Office Visit [facility] SHAYNE [place] [address] [place] [phone] Tree Krishnan DO [address] [place] [address] ArrivedNOMS ENT SANDUSKYComment on above:ArrivedStart: 12-23-2024 End: 75-09-9248Ekxpora encounter pqryksara43/17/2025 10:40 AM EDT Office Visit HARRIETT SANTIAGO [address] [place] [phone] Linsey Hall PA [address] [place] [address] HARRIETT JOHNSTONtart: 12-21-2024 End: 95-85-4947Wnaixrh encounter wwyqkngqr90/15/2025 10:40 AM EDT Office Visit NOMNigel SANTIAGO [facility] [address] [place] [address] Linsey Hall PA [address] [place] [address] NOM [place] [facility] ROUTEStart: 91-15-0420Ujzyq BMI ScreeningAdult BMI ScreeningProMercy Health Anderson Hospital SystemStart: 06-75-0408Lhtszez ScreeningTobacco ScreeningProUpper Valley Medical Centertart: 06-24-2024 End: 73-16-2276PF Chest WO and CT angiogram Coronary arteries W contrast IVCT angiogram chest Imaging Routine Coronary artery disease involving coronary bypass graft of blackfeet heart without angina pectoris Expected: 06/24/2024, Expires: 06/24/2025ProMercy Health Anderson Hospital SystemComment on above:Expected: 06/24/2024, Expires: 06/24/2025Start: 06-24-2024 End: 09-00-1278Yfmi complete W/O contrastEcho complete W/O contrast Echocardiography Routine Coronary artery disease involving coronary bypass graft of blackfeet heart without angina pectoris Expected: 06/24/2024, Expires: 06/24/2025ProMercy Health Anderson Hospital SystemComment on above:Expected: 06/24/2024, Expires: 06/24/2025Start: 06-24-2024 End: 13-77-2865Qnqlljy encounter /17/2024 2:00 PM EDT Office Visit [facility] [address] [place] [address] Gillian Taylor MD [address] [place] [address] [facility] CardiologyStart: 06-09-2024 End: 66-95-0500Qpkygwb encounter mavygclfz95/02/2024 11:20 AM EDT Office Visit NOM [place] [facility] [address] [place] [address] Linsey Hall PA [address] [place] [address] NOM [place] [facility] ROUTEStart: 06-08-2024 End: 82-42-9384Wiajfga encounter procedureNOMS [facility] ROUTEComment on above:ArrivedStart: 05-17-2024 End: 60-02-6154Dcpcdskxqege / ancillary services yullatylqs82/09/2024 8:30 AM EDT Ancillary Procedure [facility] [address] [place] [address] Emely Cantu MD [address] [place] [address] [facility] CardiologyStart: 34-61-8166Fnlxnvgwv vaccinationNOWA HealthcareStart: 2010 Administration of varicella zoster vaccineZoster (Shingles) Vaccine (1 of 2) [facility] SystemStart: 40-59-1828Ysnoyuniizvy Vaccine: 65+ Years (1 of 1 - PCV)Pneumococcal Vaccine: 65+ Years (1 of 1 - PCV)[facility] HealthcareStart: 18-91-1831MCtH,Tdap and Td Vaccines (1 - Tdap)DTaP,Tdap and Td Vaccines (1 - Tdap)[facility] SystemStart: 82-04-4627Pozae BMI Follow Up PlanAdult BMI Follow Up PlanParkview Health Bryan Hospital SystemStart: 62-81-0882Wluwglzdtk Screening Depression ScreeningParkview Health Bryan Hospital SystemStart: 90-18-4856Fgiwfwqvd for malignant neoplasm of colonNOWA Healthcare End: 03-84-2700OST panel - Blood by Automated countCBC Lab Routine Paroxysmal atrial fibrillation (CMS-HCC) 1 Occurrences starting 06/24/2024 until 06/24/2025 [facility] SystemComment on above:1 Occurrences starting 06/24/2024 until 06/24/2025efuroxime free [Mass/volume] in Serum or PlasmaOhiohealth Pickerington Methodist Hospital End: 12-07-0715Lshqhucpvsjnt metabolic 2000 panel - Serum or PlasmaCMP Lab Routine Primary hypertension 1 Occurrences starting 06/24/2024 until 06/24/2025 [facility] SystemComment on above:1 Occurrences starting 06/24/2024 until 06/24/2025 End: 00-55-1369Adckm panelLipid panel Lab Routine Mixed hyperlipidemia 1 Occurrences starting 06/24/2024 until 06/24/2025[facility] Work Phone: Comment on above:1 Occurrences starting 06/24/2024 until 06/24/2025Patient referralSelect Medical Specialty [facility] [place] [facility] Work Phone: Pyridoxine [Mass/volume] in Serum or PlasmaOhiohealth Pickerington Methodist HospitalUS.doppler Lower extremity arteryVascular US lower extremity arterial Doppler complete Vascular Ultrasound Routine PVD (peripheral vascular disease) Ordered: 06/23/2025[facility] Work Phone: Comment on above:Ordered: 06/23/2025[facility] Immunizations Immunization DateImmunizationNotesCare YcvvilitDpfnyemq79-84-7606Aeocxxxaw, injectable, Madin [place] Canine Kidney, preservative free, quadrivalentPaul edthree rivers hospital DO Work Phone: [employer] InitiativeThe Rehabilitation Institute of St. LouisLacghvvjyw58-88-1386bljaxjm toxoid, reduced diphtheria toxoid, and acellular pertussis vaccine, adsorbedPaul Biedbach DO Work Phone: [facility]iatric HospitalTpubfhplvo17-65-9998rgoyuwgwu virus vaccine, unspecified formulationNicAscension Eagle [facility] Hospital09-15-2021influenza, high dose seasonal, preservative-freeUnityPoint Health-Saint Luke's Hospital09-15-2021 influenza virus vaccine, unspecified formulationElise Borjas MD Work Phone: [facility]02-17-2021Pfizer Purple Cap SARS-CoV-2 VaccinationNicAscension Eagle River Memorial Hospital01-13-2021Pfizer Purple Cap SARS-CoV-2 VaccinationNicNoland Hospital Annistonedy MANOM[facility] Payers DatePayer CategoryPayerPolicy [id number]-pay2023Medicare (Managed Care)HU[employer]NA MEDICARE ADVANTAGE [id number] 2020Medicare [id number] 2020Medicare HMOHUMANA MEDICARE Member Subscriber Plan / Payer (Effective 2019-Present) Name: Padilla Elise Wyatt Relation to Subscriber: Self Name: Padilla Elise Schneider Payer ID: [id number] (NAIC) Type: Not on file Address:[address] [place], [place] [id number] 2..1.942688.3.57[id number] 2..1.901011.3.57[id number] 2..1.000187.3.57[id number] 2..1.676738.3.57[id number] 2.16.840.1.624418.3.57[id number] 2.16.840.1.429682.3.57[id number] 2.16.840.1.713955.3.57[id number] 2..840.1.563484.3.57[id number] 2.16.840.1.134743.3.57[id number] 2.16.840.1.896929.3.57[id number] 2.840.1.659498.3.579.2.1259 [id number] 2.16840.1.191549.3.579.2.531 Social History DateTypeDetailFacilityStart: 03-15-2024 End: 45-09-5244Peohpt alcohol useSocial alcohol useParkview Health Bryan Hospital SystemStart: 03-15-2024 End: 70-16-8297Wgkvfda smoking status NHISEx-smokerNOMS HealthcareStart: 09-08-1974 End: 28-46-3297Gigvjyr of tobacco useCurrent smokerProMercy Health Anderson Hospital SystemStart: 09-08-1974 End: 03-93-4675Nlxtfsa of tobacco useCigarette SmokerNOMS HealthcareStart: 05-20-2022 End: 41-88-1764Xcndzxk use and exposureSmokeless tobacco non-userParkview Health Bryan Hospital SystemStart: 03-15-2024 End: 64-98-9814Cqgiyfwis beverage intakeLifetime non-drinker (finding)[facility] HealthcareStart: 03-15-2024 End: 78-42-2628Ihhrkgc use panelParkview Health Bryan Hospital SystemStart: 06-85-6858Dpzatju CommentocassionalLDS Hospital HealthcareStart: 79-18-0069Bna assigned at birthCurahealth Heritage ValleyStart: 43-17-9002Exfpwc identityIdentifies as male gender (finding) [facility] HealthcareStart: 07-29-2023 End: 58-18-6600Pemzlhoeg beverage intakeEx-drinker (finding)[facility] Medical Centertart: 49-70-3985Ataazl the past 12 months we worried whether our food would run out before we got money to buy more.Never [facility] Start: 10-54-0068Fnvkxtv CommentocaRutherford Regional Health Systemtart: 26-53-5436Aph assigned at birthNot on fileNovant Health Matthews Medical Centertart: 47-79-5566McvRtqs (finding)[facility] Clinical Notes 04-30-2024 to 06-23-2025 Note Date & DqkeNvnhJypdfgdb80-47-8035 History of Present illness Narrative* Yuri Rodriguez, TRM - 06/23/2025 9:30 AM EDT Patient: Elise Tabor : 1960 PCP: Mario Zayas MD SUBJECTIVE [...] Insecurity: No Food Insecurity (06/24/2024) [facility] [employer] Hunger Screening Within the past 12 months [...] non palpable pedal pulses bilaterally NEURO: 5.07 [place] Anjum monofilament test intact to digits and [...] shoe gear. Patient have SERVANDO PVRs at [facility] for possible procedure and nail avulsions in the future with follow up post testing Yuri Rodriguez DPM [1] Allergies Allergen Reactions Gluten Meal GI intolerance Isosorbide Nitrate Headache [2] Past Medical History: Diagnosis Date Anemia Arthritis 08/16/2024 Atrial fibrillation (HCC) Cardiomyopathy, ischemic 08/16/2024 Celiac disease (HCC) 03/04/2019 Centrilobular emphysema (HCC) 2025 Noted by [facility] last documented on [id number] Cervicalgia 04/08/2018 Chronic anticoagulation 08/16/2024 Chronic obstructive lung disease (HCC) 01/22/2018 Chronic obstructive pulmonary disease (COPD) ([facility]) Chronic systolic heart failure ([facility]) 08/16/2024 Class 2 severe obesity due to excess calories with serious comorbidity and body mass index (BMI) of35.0 to 35.9 in adult 08/16/2024 Coronary artery disease Emphysema of lung ([facility]) Erectile dysfunction 08/16/2024 H/O hernia repair Headache in back of head 04/08/2018 Hypertensive heart disease with heart failure (HCC) 2025 Noted by [facility] last documented on 20241001 Mixed hyperlipidemia [...] time, Disp: , Rfl: documented in this encounterTwo Rivers Psychiatric HospitalGjvxckjymg05-97-1587 Hospital Discharge instructionsAmbulatory Orders* Referral to Pain Management Time Frame: 06/14/25, Location: None [facility] Work Phone: 1(279) 473-617810-07-2025 Evaluation note* Diagnosis Onset Date Resolution Status Admit Date Paresthesias acuteOctober 2024 11:34amCarpal tunnel syndrome, leftchronicOctober 2024 11:34amDDD (degenerative disc disease), lumbarchronicOctober 2024 11:34amLumbosacral radiculopathychronicOctober 2024 11:34amNeck painchronic October 2024 11:34amTremorchronicOctober 2024 11:34am [facility] Work Phone: 1(286) 435-784209-19-2025 [facility] Reason for [...] procedure, paroxysmal atrial fibrillation, s/p ablation in [place], thoracic aortic aneurysm, left ventricle dysfunction, hypertension, hyperlipidemia COPD, prior tobacco and alcohol abuse He used to follow with [facility] cardiology. He states that overall [...] once daily as dire (more content not included)...[facility]08-08-[facility] History of Present illness Narrative* Tree Krishnan, DO - 04/15/2025 9:30 AM EDT Subjective Patient ID: Giancarlo Tabor is a [...] tympanostomy tube with replacement documented in this encounterTwo Rivers Psychiatric HospitalWjjhjhibfg24-06-3665 NoteBellevue [facility] Note Reason for [...] procedure, paroxysmal atrial fibrillation, s/p ablation in [place], thoracic aortic aneurysm, left ventricle dysfunction, hypertension, hyperlipidemia COPD, prior tobacco and alcohol abuse He used to follow with [facility] cardiology. He states that overall [...] Disp: , Rfl: theop (more content not included)...[facility] 2025 History of Present illness Narrative* Tree Krishnan, - 2025 9:15 AM EDT Subjective Patient ID: Giancarlo Tabor is a [...] family physician and subspecialist documented in this encounterTwo Rivers Psychiatric HospitalFpanuuevgu86-02-9142 NoteBellevue [facility] Note Reason for [...] procedure, paroxysmal atrial fibrillation, s/p ablation in [place], thoracic aortic aneurysm, left ventricle dysfunction, hypertension, hyperlipidemia COPD, prior tobacco and alcohol abuse He used to follow with [facility] cardiology. He states that overall [...] well developed, in no (more content not included)...[facility]04-21-2025 History of Present illness Narrative* GUILLERMO Abdul - 12/27/2024 10:20 AM EDT Subjective Elise Tabor is a 64 y.o. year old male Chief Complaint Patient presents with Back Pain Past Medical History: Diagnosis Date Anemia Atrial fibrillation ([facility]/HCC) Celiac disease (CMS/HCC) 03/04/2019 Cervicalgia 04/08/2018 Chronic obstructive lung disease (CMS/HCC) 01/22/2018 Chronic obstructive pulmonary disease (COPD) (CMS/HCC) Coronary artery disease ([facility]/HCC) Emphysema of lung ([facility]/HCC) H/O hernia repair Headache in back of [...] triceps, wrist extensors, wrist extensors, wrist flexor, pompom maker strength 5/5. LUE Strength deltoid, biceps, triceps, wrist extensors, wrist extensors, wrist flexor, pompom maker strength 5/5. RLE Strength illopsoas, quadriceps, [...] new or worsening symptoms documented in this [facility]04-14-2025 Telephone encounter Note* Telephone Encounter - Leanne Mancia MA - 12/20/2024 4:44 PM EDT Patient is in need of refill, appt had to be rescheduled due to provider being out. Please send to [facility] [place] [facility] [employer] [facility] [id number] Miscellaneous Notes* Telephone Encounter - Leanne Mancia MA - 12/20/2024 4:44 PM EDT Patient is in need of refill, appt had to be rescheduled due to provider being out. 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 Explained to him that we do try to keep pt's with same doc but it does not always work out that way. Pt understood but has already seen the the other group. 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 Explained to him that we do try to keep pt's with same doc but it does not always work out that way. Pt understood but has already seen the the other group. [facility]01-02-2025 Telephone encounter Note* Telephone Encounter - Yuri Chapa MA - 09/09/2024 8:59 AM EST 06/09/2024 Continue Lyrica 150mg PO TID for neuropathic pain [facility] reviewed. Last filled 05/17/2024 for 90 day supply. Due 08/15/2024 [facility] Usiluivyzf07-70-2753 Miscellaneous Notes* Telephone Encounter - Yuri Chapa MA - 09/09/2024 8:59 AM EST 06/09/2024 Continue Lyrica 150mg PO TID for neuropathic pain [facility] reviewed. Last filled 05/17/2024 for 90 day supply. 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 male with history of coronary artery disease and coronary artery bypass surgery and maze procedure, paroxysmal atrial fibrillation, s/p ablation in [place], thoracic aortic aneurysm, left ventricle dysfunction, hypertension, hyperlipidemia COPD, prior tobacco and alcohol abuse He used to follow with [facility] cardiology. He states that overall [...] rubs, or gallops. RESPIR (more content not included)...[facility] 07-29-2024 Miscellaneous Notes* Telephone Encounter - Diana Munguia LPN - 07/29/2024 9:20 AM EST [facility] 06/24/24 documented in this encounterOhio [facility]11-[facility]-2024 Telephone encounter Note* Telephone Encounter - Diana Munguia LPN - 07/29/2024 9:20 AM EST [facility] 06/24/24 [facility]10-[facility] History of Present illness Narrative* Gillian Taylor MD - 06/24/2024 2:00 PM EDT Elise Schneider Padilla Date of visit: 06/24/2024 Date of : 1960 Age: 64 y.o. Patient Active Problem List Diagnosis Coronary artery disease involving coronary bypass graft of blackfeet heart without angina pectoris Paroxysmal atrial fibrillation [...] 65 mg by mouth daily with breakfast. orhibopktzw-nlvhkoids-uvochkyj (TRELEGY ELLIPTA) 200-62.5-25 mcg blister with device [...] atrial fibrillation despite the reported ablation in [place], continue on anticoagulation.We discussed this again today [...] History: Diagnosis Date Arthritis Ascending aortic aneurysm ([facility]-H[facility]) Atrial fibrillation ([facility]) Celiac disease COPD (chronic obstructive pulmonary disease) ([facility]-H[facility]) Coronary artery disease with history of coronary [...] artery disease involving coronary bypass graft of blackfeet heart without angina pectoris - POCT EKG - CT angiogram chest; Future - Echo complete W/O contrast; Future 2. Paroxysmal atrial fibrillation (CMS-HCC) - CBC; Future 3. Primary hypertension - CMP; Future 4. Mixed hyperlipidemia - Lipid panel; Future 5. Left ventricular dysfunction 1. ASCVD without angina --history of CABG with Maze --[facility] to the [facility]AD 2015 in [place] 2. Cardiomyopathy -ischemic versus related to alcohol [...] LORENZO Referring Physician: Kacie Del Real MD [address] [place] [address] documented in this [facility]10-17-2024 Instructions* Patient Instructions* Gillian Taylor MD - 06/24/2024 2:00 PM EDT Laboratory studies CTA of the aorta Echocardiogram documented in this encounterAvita Health System Gal[facility] HospitalLightspeed [facility] [id number] Miscellaneous Notes* Telephone Encounter - Juana Hercules CMA - 06/23/2024 10:05 AM EDT Called patient to remind them to bring their most current copy of their medication list with them to their appt. Patient verbalizes understanding. documented in this encounterOhio State Health System10-16-2024 Telephone encounter Note* Telephone Encounter - Juana Hercules CMA - 06/23/2024 10:05 AM EDT Called patient to remind them to bring their most current copy of their medication list with them to their appt. Patient verbalizes understanding. [facility] History of Present illness Narrative* GUILLERMO Abdul - 06/09/2024 11:20 AM EDT Subjective Elise Tabor is a 64 y.o. year old male Chief Complaint Patient presents with Back Pain Neck Pain Tremors Past Medical History: Diagnosis Date Anemia Atrial fibrillation ([facility]) Celiac disease ([facility]) 03/04/2019 Cervicalgia 04/08/2018 Chronic obstructive lung disease ([facility]) 01/22/2018 Chronic obstructive pulmonary disease (COPD) ([facility]) Coronary artery disease ([facility]) Emphysema of lung ([facility]) H/O hernia repair Headache in back of head 04/08/2018 Peripheral polyneuropathy 06/27/2023 Pneumonia Rheumatoid arthritis ([facility]) Sinus tachycardia 01/22/2018 Past Surgical [...] handles -admits hand weakness -some trouble with pompom maker ROS Review of Systems Constitutional: Negative [...] triceps, wrist extensors, wrist extensors, wrist flexor, pompom maker strength 5/5. LUE Strength deltoid, biceps, triceps, wrist extensors, wrist extensors, wrist flexor, pompom maker strength 5/5. RLE Strength illopsoas, quadriceps, [...] new or worsening symptoms documented in this [facility]10-01-2024 History of Present illness Narrative* Vera Zuñiga MA - 06/08/2024 12:15 PM EDT Images from the original note were not included. Reason for Appointment: EMG Patient: Elise Tabor : 1960 EMG Computer: [employer] Referring Physician: Preet Bill PA-C EMG: WALTER music executive: Vera Zuñiga CMA Office Location: [place] Reason for EMG: c/o pain and paresthesia in the arm from the shoulder down. No Hx of DM, takes Eliquis and ASA Comments: Procedure explained to the patient who expressed understanding. documented in this [facility]09-06-2024 Miscellaneous Notes* Telephone Encounter - Juana Hercules CMA - 05/14/2024 10:40 AM EDT Phoned pt to advise that appt scheduled for 05/17/2024 is the date that his EM will be sent out andis NOT an actual appt. Verbalized understanding. documented in this encounterOhio State Health System09-06-2024 Telephone encounter Note* Telephone Encounter - Juana Hercules CMA - 05/14/2024 10:40 AM EDT Phoned pt to advise that appt scheduled for 05/17/2024 is the date that his EM will be sent out andis NOT an actual appt. Verbalized understanding. 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 Please advise. Thank you! 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 * Telephone Encounter - Emely Cantu [...] patient to call us back to review HAND FLATWORK FINISHER's response. 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 Please advise. Thank you! 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 [facility] Telephone encounter Note* Telephone Encounter - Emely [...] further. Would continue Eliquis in the meantime. [facility] [id number] Telephone encounter Note* Telephone Encounter - Ashlee Lim RN - 04/30/2024 10:24 AM EDT Amml asking patient to call us back to review HAND FLATWORK FINISHER's response. [facility] Diagnosis Carpal tunnel syndrome of left wrist- Primary documented in this encounter [facility] HealthcareEvaluation note* Diagnosis Degeneration of intervertebral [...] artery disease involving coronary bypass graft of blackfeet heart without angina pectoris Hx of CABG Postsurgical aortocoronary bypass status Paroxysmal atrial fibrillation (CMS-HCC) Atrial fibrillation Aneurysm of ascending aorta without rupture (CMS-HCC) History of maze procedure documented in this encounter [facility] SystemEvaluation note* Diagnosis Coronary artery disease involving coronary bypass graft of blackfeet heart without angina pectoris Hx of CABG Postsurgical aortocoronary bypass status Paroxysmal atrial fibrillation (CMS-HCC) Atrial fibrillation Aneurysm of ascending aorta without rupture (CMS-HCC) History of maze procedure documented in this encounter [facility] SystemEvaluation note* Diagnosis Coronary artery disease involving coronary bypass graft of blackfeet heart without angina pectoris Paroxysmal atrial fibrillation (CMS-HCC) Atrial fibrillation Aneurysm of ascending aorta without rupture (CMS-HCC) Hx of CABG 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 documented in this encounter [facility] SystemEvaluation note* Diagnosis Coronary artery disease involving coronary bypass graft of blackfeet heart without angina pectoris- Primary Paroxysmal atrial fibrillation (CMS-HCC) Atrial fibrillation Primary hypertension Unspecified essential hypertension Mixed hyperlipidemia Left ventricular dysfunction Left heart failure documented in this encounter [facility] SystemEvaluation note* Diagnosis Coronary artery disease involving coronary bypass graft of blackfeet heart without angina pectoris Paroxysmal atrial fibrillation (CMS-HCC) Atrial fibrillation Aneurysm of ascending aorta without rupture (CMS-HCC) Hx of CABG 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 documented in this encounter [facility] SystemEvaluation note* Diagnosis Coronary artery disease involving coronary bypass graft of blackfeet heart without angina pectoris Hx of CABG Postsurgical aortocoronary bypass status Paroxysmal atrial fibrillation ([facility]) Atrial fibrillation Aneurysm of ascending aorta without rupture ([facility]-H[facility]) History of maze procedure documented in this encounter [facility]* Diagnosis DDD (degenerative disc disease), lumbar- Primary Degeneration of lumbar or lumbosacral intervertebral disc Lumbosacral radiculopathy Thoracic or lumbosacral neuritis or radiculitis, unspecified documented in this encounter [facility] HealthcareEvaluation note* Diagnosis Degeneration of intervertebral disc of lumbar region with discogenic back pain and lower extremity pain- Primary Lumbosacral radiculopathy Thoracic or lumbosacral neuritis or radiculitis, unspecified Neck pain Cervicalgia Tremor Abnormal involuntary movements Chronic daily headache Headache documented in this encounter [facility] HealthcareEvaluation note* Diagnosis Dysfunction of right eustachian tube- Primary Otorrhea of right ear Chronic anticoagulation Encounter for long-term (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 of 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 documented in this encounter [facility] HealthcareEvaluation note* Diagnosis Otorrhea of right ear- Primary Dysfunction of right eustachian tube Chronic anticoagulation Encounter for long-term (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 of 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 documented in this encounter [facility] HealthcareEvaluation noteNo assessment information availableCleveland Clinic [facility] Work Phone: Evaluation note* Diagnosis PVD (peripheral vascular disease) Unspecified peripheral vascular disease Other polyneuropathy Pain due to onychomycosis of toenails of both feet Paronychia, toe, left documented in this encounter [facility] HealthcareHistory of Present illness NarrativeMrLeyla Tabro is referred for consideration of LVRS. 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 He is on 3 L nasal cannula oxygen chronically. He is set to begin pulmonaryrehabilitation.[facility] SurgeryCurahealth [facility] – [facility] CityLorraine Work Phone: History of Present illness NarrativeMrLeyla Tabor is referred for consideration of LVRS. 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 He is on 3 L nasal cannula oxygen chronically. He is set to begin pulmonaryrehabilitation.[facility] Work Phone: History of Present illness NarrativeMrLeyla Tabor is referred for consideration of LVRS. 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 He is on 3 L nasal cannula oxygen chronically. He is set to begin pulmonaryrehabilitation.[facility] Work Phone: InstructionsNot on filedocumented in [...] for referral (narrative)No reason for referral information availableCleveland Clinic Euclid Hospital Work Phone: Summary Purpose Family History [...] Carpal tunnel syndrome of left wrist Procedures NV 7-8 Nerves Aleyda Lackey MD [address] [place] [address] Referral IDStatusReasonStart DateExpiration DateVisits RequestedVisits [id number] Chief Complaint and Reason for Visit Chief [...] AUTHOR 07/04/2018 [facility] DATE CREATED AUTHOR AUTHOR'S ORGANIZ ATION 06/09/2022 [facility] DATE CREATED AUTHOR AUTHOR'S ORGANIZ ATION 06/09/2022 [facility] DATE CREATED AUTHOR AUTHOR'S ORGANIZ ATION 02/14/2023 [facility] DATE CREATED AUTHOR AUTHOR'S ORGANIZ ATION 07/06/2024 [facility] DATE CREATED AUTHOR AUTHOR'S ORGANIZ ATION 06/16/2025 [facility] DATE CREATED AUTHOR AUTHOR'S ORGANIZ ATION 06/25/2025 [facility] EPIC DATE CREATED AUTHOR AUTHOR'S ORGANIZ ATION 07/02/2025 [facility] Care Teams (unrecognized sec tion and content) Team MemberRelationshipSpecialtyStart DateEnd Date Risa Mcnulty NP [address] [facility] [place] [address] Referring PhysicianFamily Medicine03/15/24Team MemberRelationshipSpecialtyStart DateEnd Date Risa Mcnulty NP [address] [place] [address] Referring PhysicianFamily Medicine03/15/24Team MemberRelationshipSpecialtyStart DateEnd Date Risa Mcnulty NP [address] [facility] [place] [address] Referring PhysicianFamily Medicine03/15/24Team MemberRelationshipSpecialtyStart DateEnd Date Risa Mcnulty NP [address] [facility] [place] [address] Referring PhysicianFamily Medicine03/15/24Team MemberRelationshipSpecialtyStart DateEnd Date Risa Mcnulty NP [address] [facility] [place] [address] Referring PhysicianFamily Medicine03/15/24Team MemberRelationshipSpecialtyStart DateEnd Date Kacie Del Real MD [address] [place] [address] PCP - GeneralFamily Medicine03/22/22Team MemberRelationshipSpecialtyStart DateEnd Date Kacie Del Real MD [address] [place] [address] PCP - GeneralFamily Medicine03/22/22Team MemberRelationshipSpecialtyStart DateEnd Date Kacie Del Real MD [address] [place] [address] PCP - Generalmily Medicine03/22/22am MemberRelationshipSpecialtyStart DateEnd Date Kacie Del Real MD [address] [place] [address] [facility]03/22/22am MemberRelationshipSpecialtyStart DateEnd Date Kacie Del Real MD [address] [place] [address] PCP - [facility] Medicine03/22/22Team MemberRelationshipSpecialtyStart DateEnd Date Risa Mcnulty, POSTDOCTORAL FELLOW-MANAGER REGISTRATION [address] [place] [address] PCP - Generalmily Fvjnlvvl55/17/24Team MemberRelationshipSpecialtyStart Date End Date Risa Mcnulty, POSTDOCTORAL FELLOW-MANAGER REGISTRATION [address] [place] [address] PCP - GeneralFamily Jerdylon69/17/24Team MemberRelationshipSpecialtyStart Date End Date Risa Mcnulty, POSTDOCTORAL FELLOW-MANAGER REGISTRATION [address] [place] [address] PCP - GeneralFamily Qdjswspv04/17/24Team MemberRelationshipSpecialtyStart Date End Date Risa Mcnulty, POSTDOCTORAL FELLOW-MANAGER REGISTRATION [address] [place] [address] PCP - GeneralFamily Vgtmstey83/17/24Team MemberRelationshipSpecialtyStart Date End Date Risa Mcnulty, GLUE DRIER OPERATOR [address] [facility] [place] [address] Referring PhysicianMemorial Satilla Health03/15/24Team MemberRelationshipSpecialtyStart DateEnd Date Risa Mcnulty NP [address] [place] [address] Referring PhysicianMemorial Satilla Health03/15/24Team MemberRelationshipSpecialtyStart DateEnd Date Risa Mcnulty NP [address] [place] [address] Referring PhysicianMemorial Satilla Health03/15/24Team MemberRelationshipSpecialtyStart DateEnd Date Risa Mcnulty NP [address] [place] [address] Referring PhysicianMemorial Satilla Health03/15/24 Team Status: Active Member Role Status Dates Mario Zayas MD Primary Care Provider Active Team Status: Inactive Member Role Status Dates Danni Mccoy , POSTDOCTORAL FELLOW-MANAGER REGISTRATION-C Attending Provider Active Start: June 14, 2025 End: June 14, 2025Eduarda Brice Care ProviderActiveStart: June 14, 2025 End: June 14, 2025 Team Status: Inactive Member Role Status Dates Mario Zayas MD Attending Provider Active Sta rt: June 14, 2025 End: June 14, 2025Team MemberRelationshipSpecialtyStart DateEnd Date Mario Zayas MD [address] [place] [phone] PCP - GeneralMemorial Satilla Health06/23/25 Risa Mcnulty NP [address] [place] [address] Referring PhysicianMemorial Satilla Health03/15/24Team MemberRelationshipSpecialtyStart DateEnd Date Mario Zayas MD [address] [place] [phone] PCP - [facility]06/23/25 Risa Mcnulty NP [address] [place] [address] Referring PhysicianMemorial Satilla Health03/15/24 Reason for Visit (unrecogniz ed section and content) SpecialtyDiagnoses / ProceduresReferred By ContactReferred To ContactNeurology Diagnoses LUE EMG paresthesias of hand, numbness and tingling, ref by Wei Bill PACr20.2 Procedures ME NERVE CONDUCTION STUDIES 9-10 STUDIES ME NEEDLE EMG EA EXTREMTY W/PARASPINL [place] [address] [place] [address] Aleyda Lackey MD [address] [place] [address] Referral IDStatusReasonStart DateExpiration DateVisits RequestedVisits [id number] Perform Procedure [id number] PainNeck PainTremorsReasonCommentsMed RefillReasonOnset DateCommentsMed [id number] DateCommentsMed [id number]-upEST PT FU EM RESULTSReasonOnset Date Commentstransfering care11/25/2024ReasonOnset DateCommentsMed Eypysm0412/20/2024 ReasonCommentsBack PainReasonCommentsEar Tube CheckRight ear painReasonComments Ear [...] BE BASED ON THE PRIMARY CLINICAL RECORDS. [facility] [employer] [facility]. provides no warranty or guarantee of the accuracy or completeness of information in this document.
--- OUTSIDE RECORDS SUMMARY | 2025-07-05 12:58 | XMS_ITS | Encounter Summary ---
Author Organization [facility] Address [address] [place] [address] Care Team Providers Care Site Supervisor Name Role Phone Pauly Santacruz PULP MAKER Unavailable Mario Zayas MD Primary Care Provider [phone] Encounter Details DateTypeDepartmentCare Team (Latest Contact Info)Stwdnqlbqje60/16/2025amboo flowsheet [facility] [address] [place] [phone] Yuri Rowe DPM [address] [facility] [address] [place] [address] Social History Tobacco UseTypesPacks/DayYears UsedDateSmoking Tobacco: LxifsdQhbzflaxiu368 09/08/1974 - 09/08/2009Smokeless Tobacco: NeverAlcohol UseStandard Drinks/Week CommentsNever0 (1 standard drink = 0.6 oz pure alcohol)ocassionallySex and Gender InformationValueDate RecordedSex Assigned at SmhkcKuam96/16/2023 9:38 AM EDTLegal IidUxjv9802/06/2023 9:13 AM EDTGender HockhqenOrzo89/16/2023 9:38 AM EDT Sexual OrientationNot on filedocumented as of this encounter Plan of Treatment DateTypeDepartmentCare Team (Latest Contact Info)Tzhdpfglnuk28/08/2026 10:50 AM ESTProcedure Visit [facility] [address] [place] [address] Yuri Rowe DPM [address] [address] 10/17/2025 10:15 AM ESTOffice Visit [facility] [address] [facility] [place] [address] Tree Carmona DO [address] [place] [address] documented as of this encounter Visit Diagnoses Not on filedocumented in this encounter Care Teams Team MemberRelationshipSpecialtyStart DateEnd Mario Zayas MD [address] [place] [address] PCP - GeneralFamily Pisntdgf84/16/25 Pauly Santacruz NP [address] [place] [address] Referring PhysicianFamily Medicine03/15/24documented as of this encounter
--- OUTSIDE RECORDS SUMMARY | 2025-07-05 12:58 | XMS_ITS | Clinical Summary ---
Author Organization [facility] Address [address] [place] [address] Care Team Providers Care Blood Bank Technician Name Role Phone Mario Zayas MD Primary Care Provider [phone] Allergies No known active allergies Medications MedicationSigDispense [...] Active Problems ProblemNoted DateDiagnosed DateObstructive sleep apnea pbsxkrya87/21/2025enign hypertensive heart disease without congestive heart vrjmrrt0305/29/2025Nausea 04/14/2025bnormal cardiovascular stress test04/05/20255443Iusmmafru95/09/2024eliac uijsnyh8008/16/2024oronary artery disease involving [place] creek coronary artery of [place] creek heart without angina whdorjzk10/09/2024Erectile wkpyuqrntrq82/09/2024ain in wrist08/16/2024eripheral zvwqowwkaodvte91/09/2024ardiomyopathy, ischemic 08/16/2024hronic systolic heart qbkfapc0408/16/2024hronic anticoagulation 08/16/2024ure vyknxtkryyccxqfwsurx67/09/2024lass 2 severe obesity due to excess calories with serious comorbidity and body mass index (BMI) of35.0 to 35.9 in adult08/16/2024Mixed imcrhblorldbse74/17/2024Essential hypertension 06/24/2024DD (degenerative disc disease), awprsl4101/20/2024 Overview (08/16/2024): The patient is a 62 [...] has had no benefit with gabapentin increase. Vdilhkdcms71/14/6905Konhiyrpjxu76/14/2024History of maze mncqubiyj60/12/2022 Paroxysmal A-fib05/20/2022Thoracic aortic aneurysm without xlgbkpt8705/20/2022 Nihdvuzywxj69/01/2018Headache in back of head04/08/2018 Resolved Problems ProblemNoted DateDiagnosed DateResolved DateAbdominal aortic aneurysm (AAA) without /27/56206601/02/2025Left ventricular ctwokrkpihx46/17/2024 04/18/2025 Encounters DateTypeDepartmentCare MzznPckcmucndkt84/23/2025Telephone [facility] [address] [place] [address] Tari Nevarez MA 06/02/2025Telephone [facility] [address] [place] [address] Melita Ignacio MA 05/27/2025 11:00 AM EDTOffice Visit [facility] [address] [place] [address] Dorinda Diaz MD Coronary artery disease involving dry creek coronary artery of dry creek heart without angina pectoris (Primary Dx); Cardiomyopathy, [...] PM EDT - 04/21/2025 1:30 PM EDTSurgery [facility] [address] [place] [address] Adam Valle MD Coronary /14/2025 10:42 AM EDT - 04/21/2025 4:08 PM EDTHospital Encounter [facility] [address] [place] [address] Adam Valle MD Abnormal cardiovascular stress test Discharge Disposition: Home or Self Care ()04/21/2025Results Follow-Up [facility] [address] [place] [address] Dorinda Diaz MD Cardiac mvfgxvatjjyfwlk01/14/8061Hzolrn63/11/0641Rymxbt92/07/2025 10:00 AM EDT Office Visit [facility] [address] [place] [address] Dorinda Diaz MD Abnormal cardiovascular stress test (Primary Dx); Chronic systolic heart failure (CMS/HCC); Cardiomyopathy, ischemic; Paroxysmal A-fib (CMS/HCC); History of maze procedure; Aneurysm of ascending aorta without rupture; Essential hypertension; Pure hypercholesterolemia; Class 2 severe obesity due to excess calories with serious comorbidity and body mass index (BMI) of35.0 to 35.9 in adult (CMS/HCC)04/12/2025Telephone [facility] [address] [place] [address] Tari Nevarez MA 04/08/2025Refill [facility] [address] [place] [address] Danni Vázquez MA Benign hypertensive heart disease without congestive heart fttopdi6104/05/2025 Orders Only [facility] [address] [place] [address] Danni Vázquez MA Abnormal cardiovascular stress test (Primary Dx)from Last 3 Months Family History Medical HistoryRelationNameCommentsCoronary artery diseaseFatherCoronary artery diseaseMotherRelationNameStatusCommentsFatherDeceasedMotherDeceasedSisterAlive Social History Tobacco UseTypesPacks/DayYears UsedDateSmoking Tobacco: FormerCigarettes Smokeless Tobacco: Never Tobacco Cessation:Counseling Given: Not Answered Alcohol UseStandard Drinks/WeekCommentsYes0 (1 standard drink = 0.6 oz pure alcohol)occasionalSex and Gender InformationValueDate RecordedSex Assigned at HivskVxnc67/05/2025 3:26 PM EDTLegal KfhKytn28/15/2024 2:46 PM ESTGender WtdjyfzlHvae00/05/2025 3:26 PM EDTSexual OrientationHeterosexual or Straight 04/12/2025 3:26 PM EDT Last Filed Vital Signs Vital SignReadingTime TakenCommentsBlood Lfrypard57/5609 11:01 AM EDT Ihzqz0009 11:01 AM EDTTemperature--Respiratory Jpsq240804/21/2025 3:45 PM EDTOxygen Caveyrrifp95%05/27/2025 11:01 AM EDT3 lpm o2 via n/cInhaled Oxygen Concentration--Vpilcw822 kg (237 lb)05/27/2025 11:01 AM YLVRyoomo064.3 cm (5' 9 )05/27/2025 11:01 AM EDTBody Mass Knepv307005/27/2025 11:01 AM EDT Plan of Treatment Health MaintenanceDue DateLast DoneCommentsCT Rlvmfjyzuyqv1960Colonoscopy 1960Colorectal Cancer Obysnfhjk1960FIT-DNA1960FIT1960 FOBT1960Medicare Annual Wellness (AWV)1960Medicare Initial Physical (IPPE)1960 3912Mqthughaaaour1960Depression Dledzyhdd30/18/1972 Pneumococcal Vaccine: 50+ Years (1 of 2 - PCV)1979Zoster Vaccines (1 of 2) 2010Fall Risk Nsjlsijer89/18/2025COVID-19 Vaccine (3 - season) 502/, 09/20/2020Influenza Vaccine (#1)/02/2023, 05/23/2021dult Xanlbzt81/02/2023HIB VaccinesAged OutNo longer eligible based on patient's [...] Procedures Procedure NamePriorityDate/TimeAssociated DiagnosisCommentsINSTANT WAVE FREE RATIO (IFR)Aaqdngc5304/21/2025 1:55 PM EDT Abnormal cardiovascular stress test CORONARY BYPASS GRAFT WNBIJJiahgfl32/14/2025 1:55 PM EDT Abnormal cardiovascular stress test CORONARY XKYNDUYDNWAJotutyj80/14/2025 1:55 PM EDT Abnormal cardiovascular stress test ACTIVATED CLOTTING GYBCTvucdbr86/14/2025 1:45 PM EDT ECG 12-VPGATjyicvd90/14/2025 12:25 PM EDT from Last 3 Months [...] infiltrated over the left radial artery. ??A 6-Sudanese sheath was placed in left radial artery. [...] was maintained at >250 seconds. A 6 Sudanese XB4 was engaged to the [place]. A [...] cardiovascular stress test [R94.39] Authorizing ProviderResult TypeResult StatusSahumberto [facility] CARDIAC CATH PROCEDURESFinal Result * (ABNORMAL) Activated clotting time (04/21/2025 1:45 PM EDT)ComponentValueRef RangeTest MethodAnalysis TimePerformed AtPathologist SignatureActivated Clotting Mmyy909(H)82 - 152 s004/21/2025 1:49 PM [facility] Specimen (Source)Anatomical Location / LateralityCollection Method / Volume Collection TimeReceived TimeBloodVenous blood specimen / Ytygjns1504/21/2025 1:45 PM EDT04/21/2025 1:49 PM EDT Narrative Authorizing ProviderResult TypeResult StatusChyael YEPEZ POINT OF CARE TEST DOCKED DEVICE UNSOLICITED RESULTSFinal ResultPerforming Organization AddressCity/State/ZIP CodePhone Number [facility] [address] [place] [address] * Electrocardiogram, 12-lead (04/21/2025 12:25 PM EDT)ComponentValueRef Range Test MethodAnalysis TimePerformed AtPathologist SignatureVentricular Sjvf43TNI GE MUSEAtrial Pble76KBCVG MUSEPR Rgyuapna805qsGB MUSEQRS SWKTPRIW76whNO MUSEQT Lztrmnqj009qlZU MUSEQTC CALCULATION(ALEYDA)411msGE MUSEP Gkwu13ytlpzszEX MUSE R-Zssc64fwcxqwpII MUSET Wave Blji839wnbaswuXB MUSESpecimen (Source)Anatomical Location / LateralityCollection Method / [...] on 04/21/2025 1:28:29 PM Authorizing ProviderResult TypeResult StatusSahmuberto Diaz MDECG ORDERABLESFinal ResultPerforming OrganizationAddressCity/State/ZIP CodePhone Number GE MUSE from Last 3 Months Insurance Care Teams Team MemberRelationshipSpecialtyStart DateEnd Mario Zayas MD [address] [facility] [address] [address] PCP - GeneralFamily Medicine02/09/25
--- OUTSIDE RECORDS SUMMARY | 2025-07-05 12:58 | XMS_ITS | Clinical Summary ---
Author Organization [employer] [facility] tem Address [id number] [address] [place] [address] Care Team Providers Care Field Specialist Name Role Phone Pauly Santacruz CULINARY ARTIST-INDEPENDENT DISTRIBUTOR Primary Care Provider [phone] Allergies Active AllergyReactionsCriticalityNoted RutrTlvyjlxaJutjfm68/31/2022Isosorbide SqzqxzfjvuyUkavmdqk11/14/2022 Medications MedicationSigDispense QuantityRefillsLast FilledStart DateEnd DateStatus omeprazole (PriLOSEC) 40 mg capsule Take 1 capsule (40 mg total) by mouth in the morning.03/19/2022ctive gabapentin (NEURONTIN) 600 mg tablet Take 1 tablet (600 mg total) by mouth 3 (three) times a day.03/30/2022ctive DALIRESP 500 mcg tablet Take 1 tablet (500 mcg total) by mouth in the morning.03/15/2022ctive jeilfurhkee-kifyyssgo-cyshwnge (TRELEGY ELLIPTA) 200-62.5-25 mcg blister with device [...] artery disease involving coronary bypass graft of sho[place] heart without angina pectoris,Paroxysmal atrial fibrillation (CMS-HCC),Aneurysm [...] artery disease involving coronary bypass graft of [place] heart without angina pectoris,Hx of CABG,Paroxysmal atrial fibrillation (CMS-HCC),Aneurysm of ascending aorta without rupture,History of maze procedure Take 100 mg in the morning and 50 mg at night 270 tablet ctive theophylline (BRYAN-24) 400 MG 24 hr capsule Take 1 capsule (400 mg total) by mouth in the morning.Active atorvastatin (LIPITOR) 40 mg tablet Indications:Coronary artery disease involving coronary bypass graft of sho[place] heart without angina pectoris,Hx of CABG,Paroxysmal atrial [...] artery disease involving coronary bypass graft of sho[place] heart without angina pectoris,Paroxysmal atrial fibrillation (CMS-HCC),Aneurysm of ascending aorta without rupture,Hx of CABG,History of maze procedureDISSOLVE 1 TABLET UNDER THE TONGUE NEEDED FOR CHEST PAIN- MAY REPEAT EVERY 5 MINUTES IF NEEDED (MAX 3 DOSES.- IF NO RELIEF CALL 911) 25 tablet 4Active lisinopriL (PRINIVIL,ZESTRIL) 5 mg tablet Indications:Coronary artery disease involving coronary bypass graft of sho[place] heart without angina pectoris,Hx of CABG,Paroxysmal atrial fibrillation (CMS-HCC),Aneurysm of ascending aorta without rupture,History of maze procedure Take 1 tablet (5 mg total) by mouth in the morning. FINAL REFILL UNTIL LABS COMPLETED. 90 tablet 5Active Active Problems ProblemNoted DateDiagnosed DateMixed ttlqzinvjubexn63/17/2024rimary fddtzlrfhlne91/17/2024Left ventricular soudgsnbkpz40/17/2024oronary artery disease involving coronary bypass graft of [place] heart without angina pectoris 05/20/2022aroxysmal atrial fadbkipsqkxc33/12/2022Thoracic aortic aneurysm without ezsmmig0305/20/2022Hx of CABG05/20/2022History of maze ikoqkgjwh04/12/2022 Family History Medical HistoryRelationNameCommentsHeart diseaseFatherBreast cancerMotherCancer MotherRelationNameStatusCommentsFatherDeceasedMaternal [...] Last Filed Vital Signs Vital SignReadingTime TakenCommentsBlood Rpwfngic539/6206/24/2024 1:52 PM EDT Tkgfd849706/24/2024 1:52 PM EDTTemperature--Respiratory Rate--Oxygen Vdlvmntvza24% 06/24/2024 1:52 PM EDTInhaled Oxygen Concentration--Pkecha890.1 kg (245 lb) 06/24/2024 1:52 PM HWVRywlxz473.7 cm (5' 7.99 )06/24/2024 1:52 PM EDTBody Mass Index37.261 1:52 PM EDT Plan of Treatment Health MaintenanceDue DateLast DoneCommentsDepression Emcfvfroy56/18/1972Zoster (Shingles) Vaccine (1 of 2)2010Fall Risk Remqrjhkr30/18/2025Influenza Vmjcfkk21/02/2023, 05/23/2021dult BMI Adobgxlxk49 Tobacco Mwkkceicc15Statin Use: Qwhxpohzmdvenb93/30/2026 10/07/2024DTaP,Tdap and Td Vaccines (2 - Td or Tdap) Medical Devices Not on file Insurance Care Teams Team MemberRelationshipSpecialtyStart DateEnd Date Pauly Santacruz APRN-CHAO [address] [facility], [place] [address] PCP - GeneralFamily Dvknstvc80/17/24
--- OUTSIDE RECORDS SUMMARY | 2025-07-05 12:59 | XMS_ITS | Patient Health Record ---
Author Organization [facility] Address [address] [id number] Care Team Providers Care Water Hauler Name Role Phone Pauly Santacruz Primary Care Provider Aditya Casasyssa Unavailable [phone] Allergies No Known Allergies Results Component Value Reference Range Notes LIPID PANEL WITH REFLEX TO D IRECT LDL Reviewed date:09/18/2024 12:27:51 PM Interpretation: Performing Lab: Notes/Report: CHOLESTEROL 163 100-199 mg/dL LLOROKBKTZTAA23116-632 mg/dL VLDL-CHOL, CALCULATED 33<30 mg/dLHDL-CHOL42>=40 mg/dL LDL-CHOL, [...] Reviewed date:09/18/2024 12:27:51 PM Interpretation: Performing Lab: Notes/Report:YDAQJCY6414-273 U/LANTI NUCLEAR AB REFLEX TITER n ABID Reviewed date:09/18/2024 12:27:51 PM Interpretation: Performing Lab: Notes/Report:ANTI NUCLEAR ANTIBODIESPOSITIVENegative HARRIETT by Multiplex Flow Immunoassay is intended for the qualitative screening of specific antinuclear antibodies (HARRIETT), the quantitative detection of antibody to dsDNA, and the semi-quantitative detection of ten (10) separate antibody assays (Chromatin, Ribosomal P, SS-A, SS-B, Sm, SmRNP, SOFTWARE ENGINEER KERNEL, Scl-70, Faustina-1, and Centromere B) in human serum. COMPREHENSIVE METABOLIC PANEL (AMA) Reviewed date:09/18/2024 12:27:51 PM Interpretation: Performing Lab: Notes/Report:JZJVGGU29093-010 mg/oDVIFRZC315614-012 mmol/LPOTASSIUM4.53.5-5.4 mmol/MEXKTKYCS37161-265 mmol/KOW10149-09 mmol/FLEE128-04 mg/dL CREATININE, BLOOD 0.860.67-1.30 mg/dLeGFR (2020 CKD-EPI)97>59 mL/min/1.13y6DNASNAH6.88.6- 10.5 mg/Swetha. PROTEIN6.46.0-8.3 g/dLALBUMIN4.33.5-5.2 g/dLGLOBULIN2.11.8-3.8 g/dL A/G RATIO2.01.0-2.5 RATIOALK SITC1357-523 U/TKWZ-ADVW018-83 U/FSMW-WUBO465-54 U/LT. BILIRUBIN0.5<1.3 mg/dLCBC W/AUTO DIFF Reviewed date:09/18/2024 12:27:51 PM Interpretation: Performing Lab: Notes/Report:WBC8.13.6-11.0 THDS/CMMRBC4.224.40-6.10 MILL/JOQAWI91.713.0-18.0 G/DLHCT41.539-52 %CZZ1264-330 fLMCH32.526.0-32.0 iwZSDU13.032.0-35.0 g/dlRDW12.7 11.2-14.8 %FSHZDFLQ688775-514 THOUS/JGWQNJJHXOLIHK67.545-75 %SHTRFCSZXIQ03.720- 45 %MONOCYTES3.60-13 %EOSINOPHILS0.20-5 %BASOPHILS0.60-2 %IMMATURE GRAN1.40-2 % ABS NEUTROPHILS6.761.9-8.0 K/uLABS LYMPHOCYTES0.870.9-5.2 K/uLABS MONOCYTES0.29 0.1-1.0 K/uLABS EOSINOPHILS0.020.0-0.80 K/uLABS BASOPHILS0.050.0-0.2 K/uLABS IMMATURE GRAN0.110.00-0.06 K/uL UNLESS OTHERWISE INDICATED, ALL TESTING PERFORMED AT: [employer] [address] [place] [address] DATA WAREHOUSE ARCHITECT: SISSY PEARSON M.D. IA NUMBER [id number] CAP ACCREDITATION AUID [id number] HARRIETT/SEBASTIAN AB ID PANEL Reviewed date:09/18/2024 12:27:51 PM Interpretation: Performing Lab: Notes/Report:DNA DS ANTIBODY9<10 IU/mL Interpretation of dsDNA Antibody results: < or = 4: Negative 5 - 9: Indeterminate > or =10: Positive FOLRES (SM) ANTIBODY0.4<1.0 AICHROMATIN AB<0.2<1.0 AISJOGREN'S SS-A ANTIBODY<0.2 [...] Vaccine Route Administration Date Status Comme nts *Qqnxhiypd-Aloknxtut-Pgsmi te IM Intramuscular 08/13/2023 Administered *Tdap (Adacel)-PrivateIM Bhbkfwwccjifk28/06/2023dministered Social History Tobacco Use: Social History Observation [...] alcohol in the p ast year? Yes Qegmwh7SirjlzdgrfajonIurdkwgtKLJT-KMN Questionnaire (2018 Edition) Question Answer Notes Have [...] work (ex. 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, unpaid primary health care facilities inspector) patient entered data In the past year, [...] 2 nights in a row in a shelter, nursing home, assisted center, orjuvenile correctional facility?Nopatient entered dataAre you a refugee?Nopatient entered dataWhat country are you from?[place] Statespatient entered dataDo you feel physically and emotionally safe where you currently live?Yespatient entered dataIn the past year, have you been afraid of your partner or ex-partner?Nopatient entered dataPRAPARE Score:3 Problems Problem Type SNOMED Code ICD Code Onset Dates Problem Status W/U Status Risk Notes Problem Celiac disease (740234404) Celiac disease (K90.0) ActiveconfirmedDx for steam and gas turbine assembler referral only.ProblemNausea (731661473)Nausea (R11.0)ActiveconfirmedProblemAtherosclerotic heart disease of [place] coronary artery without angina pectoris (519615277684983)Coronary artery disease with history of coronary revascularization (I25.10)ActiveconfirmedProblemErectile dysfunction (disorder) (475220524)Erectile dysfunction, unspecified erectile dysfunction type (N52.9)ActiveconfirmedDx for lab work only.ProblemArthritis (4278137)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0-37.9, adult Z68.37 Main [address] [place], [place] [id number] 09/18/2024 Charis Yessenia [address] [place], [place] [address] [facility] [place][Note 2]Arthritis M19.90 Assessments Encounter Date Diagnosis (ICD Code) [...] Coverage End Date [employer] [address] [address] [place] [address] [id number] Aliya Causeyelf - patient is the dydrrld06 2019 Medical (General) History Medical History History ICD Code GERD (gastroesophageal reflux disease) K 21.9 COPD (chronic obstructive pulmonary dise ase) J44.9 Arthritis Chronic back painM54.9Oxygen zzprhvfrnS84.81Atrial cvpoyvhnzqmw552.31Coronary artery disease with history of coronary epefdkbcrnuxmagyvO77.10Peripheral ofmnyhikfrB13.9Celiac jvsqohrP83.0Surgical History Surgery Date(Month/Year) amputation right hand finger 1978 hernia 1989 skin cancer removal on back 1989 left hip replacement 2005 heart surgery - CABG, ablation 2015 right hip replaced 2016 right shoulder 2017 lasic surgery tubes in right ear
--- OUTSIDE RECORDS SUMMARY | 2025-07-05 12:59 | XMS_ITS | Encounter Summary ---
Author Organization [facility] Address [address] [place] [address] Care Team Providers Care Chinchilla Farmer Name Role Phone Pauly Santacruz TREE SHEAR OPERATOR Unavailable Mario Zayas MD Primary Care Provider [phone] Encounter Details DateTypeDepartmentCare Team (Latest Contact Info)Rquetundhec26/16/2025Travel Social History Tobacco UseTypesPacks/DayYears UsedDateSmoking Tobacco: WdsnhqZifbbfxvqi169 09/08/1974 - 09/08/2009Smokeless Tobacco: NeverAlcohol UseStandard Drinks/Week CommentsNever0 (1 standard drink = 0.6 oz pure alcohol)ocassionallySex and Gender InformationValueDate RecordedSex Assigned at CpddnQaya65/16/2023 9:38 AM EDTLegal LhbYkjo2802/06/2023 9:13 AM EDTGender MwsawrmpXzaf74/16/2023 9:38 AM EDT Sexual OrientationNot on filedocumented as of this encounter Plan of Treatment DateTypeDepartmentCare Team (Latest Contact Info)Dejdgprxqyy26/08/2026 10:50 AM ESTProcedure Visit [facility] [address] [facility] [address] [place] [address] Yuri Rowe DPM [address] [facility] [address] [place] [address] 10/17/2025 10:15 AM ESTOffice Visit [facility] [address] [place] [address] Tree Carmona, DO [address] [place] [address] documented as of this encounter Visit Diagnoses Not on filedocumented in this encounter Care Teams Team MemberRelationshipSpecialtyStart DateEnd Date Mario Zayas MD [address] [place] [address] PCP - GeneralFamily Spzmlhqb01/16/25 Pauly Santacruz NP [address] [place] [address] Referring PhysicianFamily Medicine03/15/24documented as of this encounter
--- NOTE | 2025-07-05 13:00 | CA_ITS ---
[facility] Test Date: 2025-07-05 Pat Name: ELISE TABOR Department: Room: - Gender: Male Melter Helper: Sandra Matt : 1960 Requested By: LAVINIA RODRIGUEZ Order Number: [id number] Reading MD: ABRAHAM CARD M.D. Interpretive Statements Summary of the findings: Right leg: SERVANDO= 1.42; TBI= 1.01. Doppler waveforms demonstrate multiphasic flow at the posterior tibial and dorsalis pedis arteries. Left leg: SERVANDO= 1.12; TBI= 1.03. Doppler waveforms demonstrate multiphasic flow at the posterior tibial and dorsalis pedis arteries. Segmental pressures: Segmental pressures show possible left sided infrapopliteal disease. Calcified right sided vessels indicated by elevated SERVANDO. Pulse volume recordings: PVRs at the high thigh, below knee, and ankle levels show normal waveforms. Conclusion: Right ankle-brachial indices are suggestive of calcified right sided vessels. Left ankle-brachial indices are suggested of normal overall arterial flow at rest. Toe-brachial indices are within normal. Segmental pressures show possible left sided infrapopliteal disease. Pulse volume recordings indicate good overall resting arterial flow. The study shows evidence of PAD with grossly normal overall arterial flow at rest. Electronically Signed On 07-05-2025 19:06:11 EDT by ABRAHAM CARD M.D.
--- OUTSIDE RECORDS SUMMARY | 2025-07-05 13:02 | XMS_ITS | Encounter Summary ---
Author Organization [facility] Address [address] [facility] [place] [address] Care Team Providers Care Cathode Maker Name Role Phone Mario Zayas MD Primary Care Provider Encounter Details DateTypeDepartmentCare Team (Latest Contact Info)Jfucimwxjcw31/14/2025Results Follow-Up [facility] [address] [place] [phone] Dorinda Diaz MD [address] MS:[address] [place] [address] Cardiac catheterization Social History Tobacco UseTypesPacks/DayYears UsedDateSmoking Tobacco: FormerCigarettes Smokeless Tobacco: NeverAlcohol UseStandard Drinks/WeekCommentsYes0 (1 standard drink = 0.6 oz pure alcohol)occasionalSex and Gender InformationValueDate RecordedSex Assigned at TayccDhzv76/05/2025 3:26 PM EDTLegal JujFkzi13/15/2024 2:46 PM ESTGender KwhhmvuvBbms95/05/2025 3:26 PM EDTSexual Orientation Heterosexual or Pjlkofqx49/05/2025 3:26 PM EDTdocumented as of this encounter Functional Status * BPAnswerDate of OemafxjgiaKxcitd41/56005/27/2025 11:01 AM Tari Rangel MA * PulseAnswerDate of GakytkaearPgfroy9346/19/2025 11:01 AM Tari Rangel MA * Pain Assessment TimerQuestionAnswerDate of AssessmentAuthorRestart Pain Assessment WriiyTrf15/14/2025 3:45 PM Flaca Nunn RN * Pain AssessmentQuestionAnswerDate of AssessmentAuthorPain AssessmentNo/denies pain04/21/2025 3:45 PM Flaca Nunn RN * Patient PositionAnswerDate of MucvkjyyuwBrfzauAkumgdo00/19/2025 11:01 AM EDT Tari Nevarez MA * BPAnswerDate of KibrynzhrsOvdxyo02/56005/27/2025 11:01 AM Tari Rangel MA * PulseAnswerDate of NefjuwdjnpObkfob3726/19/2025 11:01 AM Tari Rangel MA * BcL5WuamzlBppd of MaacfcbmcuRmslin0695/19/2025 11:01 AM Tari Rangel MA * QuestionAnswerDate of AssessmentAuthorPulse rate from Plethysmogram (bpm)70 04/21/2025 3:45 PM Flaca Nunn RN * Vital SignsQuestionAnswerDate of DoeztipfzyWicqmkTmps7347/14/2025 3:45 PM EDT Flaca Roblero RNArterial Line MAP 1 (mmHg)7304/21/2025 3:15 PM Flaca Nnun RN MAP (mmHg)85004/21/2025 3:45 PM Flaca Nunn RN * Peripheral VascularQuestionAnswerDate of AssessmentAuthorPulsesLeft pedal;Right pedal;Left posterior tibial;Right posterior dzhcki5204/21/2025 10:47 AM Carolin Lynn RNEdemaRight lower extremity;Left [...] MA * RespiratoryQuestionAnswerDate of AssessmentAuthorBilateral Breath Sounds Xxfztscjwv86/14/2025 10:47 AM Carolin Lynn RNRespiratory PatternNormal 04/21/2025 10:47 AM Carolin Lynn RNRespiratory KpcnzmFjbtuch02/14/2025 10:47 AM Carolin Lynn RNRespiratory Depth/QevbgbJainqll58/14/2025 10:47 AM Carolin Lynn RNBreath SoundsBilateral breath fwdgeh9904/21/2025 10:47 AM Carolin Lynn RN * NeurologicalQuestionAnswerDate of AssessmentAuthorLevel of ConsciousnessAlert 04/21/2025 10:47 AM Carolin Lynn RNOrientation LevelOriented X 10:47 AM Carolin Lynn RNCognitionAppropriate gwrmsqojo40/14/2025 10:47 AM Carolin Lynn RNSpeechClear04/21/2025 10:47 AM Carolin Lynn RN * Pain AssessmentQuestionAnswerDate of AssessmentAuthorPain AssessmentNo/denies pain04/21/2025 3:45 PM Flaca Nunn RN * [place] Suicide Severity Rating ScaleQuestionAnswerDate of AssessmentAuthor1. Have [...] Carolin Felix RN * Patient PositionAnswerDate of SbsttvxfabZdpdswMxjengx83/19/2025 11:01 AM EDT Tari Nevarez MA * Modified AldreteQuestionAnswerDate of SpurpmfbmkDsuxamQaeaqlhl159/14/2025 4:01 PM Flaca Nunn RNRespiration 4:01 PM Flaca Nunn RN Bwmpphpwtum435/14/2025 4:01 PM Flaca Nunn RNWRGhjyuypndmdgz265/14/2025 4:01 PM Flaca Nunn RNOxygen Mxuxqnphpv634/14/2025 4:01 PM Flaca Nunn RN Modified Pamela Cewlu62604/21/2025 4:01 PM Flaca Nunn RN documented as of this encounter Mental Status * [place] Agitation Sedation ScaleQuestionAnswerEntry DateAuthorRichmond Agitation Sedation Scale (RASS)- 1:54 PM Meng Osullivan RN * Modified AldreteQuestionAnswerEntry EtkjZhxcfoRzrlcpaj719/14/2025 4:01 PM EDT Flaca Roblero RNTZSvxsprqmooz341/14/2025 4:01 PM Flaca Nunn RNCirculation2 04/21/2025 4:01 PM Flaca Nunn RNFNGneaycpaluehh099/14/2025 4:01 PM Flaca Nunn RNOxygen Ntqpgouqmt730/14/2025 4:01 PM Flaca Nunn RNModified Pamela Okqwd97104/21/2025 4:01 PM Flaca Nunn RN documented in this encounter Plan of Treatment Not on file documented as of this encounter Visit Diagnoses Not on filedocumented in this encounter Care Teams Team MemberRelationshipSpecialtyStart DateEnd Date Mario Zayas MD [address] [facility] [place] [address] PCP - GeneralFamily Medicine02/09/25documented as of this encounter
== END 2025-07-05 12:54 | disposition home or self-care (01) ==
LOC: CARD 12:53
PROVIDERS: PCP Family Medicine
DX: I73.9 Peripheral vascular disease, unspecified (principal)
CPT/HCPCS: 93923

== ENCOUNTER 2025-07-11 09:53 | Day surgery (SDC) | payer MEDICARE, SELFPAY ==
--- OUTSIDE RECORDS SUMMARY | 2012-03-06 04:34 | XMS_ITS | Continuity of Care Document ---
Author Organization [facility] Address [address] [place] [address] [place] [address] Phone Care Team Providers Care Creative Services Producer Name Role Phone JUAN FINK MD Unavailable Unavailabl e Medications Medication Instructions Dosage Effective Dates (start - stop) Status Comments gabapentin 300 mg Cap take 1 capsule (300MG) by oral route 3 times every day 300 MG - Active LISINOPRIL (unknown strength) Not Available - Active VICODIN (unknown strength) Not Available - Active DAYPRO (unknown strength) Not Available - Active aspirin 325 mg Tab Take one by mouth every day - Active Celebrex 100 mg Cap - Active REMERON (unknown strength) Not Available - Active MORPHINE SULFATE ER (unknown strength) Not Available - Active Coumadin 5 mg Tab 10 mg on Friday - Active amiodarone 200 mg Tab Take 1 tablet by mouth two times per day. - Active MULTI-VITAMINS TABLET - Active ZESTRIL Take one by mouth every day - Active gabapentin 300 mg Cap take 1 capsule (300MG) by oral route 3 times every day 300 MG - No Longer Active Procedures Procedure Date Offic/outpt E&m Estab Minor 10 11 Inj Not Lytic-epidur; Lumb/sac 11 Fluoroscopic Guidance For Inj 1 Mri Spinal Canal Cerv; Wo Cont 11 Mri Spinal Canal Lumb; Wo Cont 11 Mri Spinal Canal Thorac; Wo Co 11 Phys Therap Eval Offic/outpt E&m Estab Low-mod 9 Rad Exam Hip; Complt Mini 2 Vi 09 Offic/outpt E&m Estab Low-mod 7 Postop F/u Visit Incld Global 7 Rad Exam Hip; Complt Mini 2 Vi 07 Postop F/u Visit Incld Global 6 Arthroplasty Acetab & Fem Pros 06 Advance Directives Directive Yes / No Effective Date File Name No Information Encounters Encounter Description Practice Location Reason(s) For Visit Diagnoses Date Provider Providers Copied on Encounter [facility], [address] [place] [address], [address] [place] [address], tel:[phone] [facility] No Information 2 DANAE MARTINEZ. [address] [place] [address], [address] [place] [address], . tel:[phone] [facility], [address] [place] [address], [address] [place] [address], tel:[phone] [facility] No Information 2 DANAE MARTINEZ. [address] [place] [address], [address] [place] [address], . tel:[phone] Offic/outpt E&m Estab Minor 10 [facility], [address] [place] [address], [address] [place] [address], tel:[phone] [facility] No Information 1 DANAE MARTINEZ. [address] [place] [address], [address] [place] [address], . tel:[phone] [facility], [address] [place] [address], [address] [place] [address], tel:[phone] [facility] No Information 1 DANAE MARTINEZ. [address] [place] [address], [address] [place] [address], . tel:[phone] [facility], [address] [place] [address], [address] [place] [address], tel:[phone] [facility] No Information Oct-0 3-201 1 DANAE LEALPELONLAKEISHA. [address] [place] [address], [address] [place] [address], . tel:[phone] [facility], [address] [place] [address], [address] [place] [address], tel:[phone] [facility] No Information Sep-2 2-201 1 BERYL ABBOTT. [address] [place] [address], [address] [place] [address], . tel:[phone] Referring Provider: Nigel Carvajal, [address] [place] [address], [facility]. tel:[phone] [facility], [address] [place] [address], [address] [place] [address], tel:[phone] [facility] No Information Sep-2 1-201 1 PANDA IBRAHIM. [address] [place] [address], [address] [place] [address], . tel:[phone] Referring Provider: Nigel Carvajal, [address] [place] [address], [facility]. tel:[phone] [facility], [address] [place] [address], [address] [place] [address], tel:[phone] [facility] No Information Sep-0 7-201 1 Samreen Ochoa. [address] [place] [address], [address] [place] [address], . tel:[phone] Referring Provider: Nigel Carvajal, [address] [place] [address], [facility]. tel:[phone] Offic/outpt E&m Estab Low-mod [facility], [address] [place] [address], [address] [place] [address], tel:[phone] [facility] No Information Oct-0 8-200 9 BERYL ABBOTT. [address] [place] [address], [address] [place] [address], . tel:[phone] Offic/outpt E&m Estab Low-mod [facility], [address] [place] [address], [address] [place] [address], tel:[phone] [facility] No Information Nov-2 6-200 7 KIBILOSÁLVARO MILENA. [address] [place] [address], [address] [place] [address], . tel:[phone] [facility], [address] [place] [address], [address] [place] [address], tel:[phone] [facility] No Information 5-200 7 KIBILOSKI MILENA. [address] [place] [address], [address] [place] [address], [place]. tel:[phone] [facility], [address] [place] [address], [address] [place] [address], tel:[phone] [facility] No Information Dec-0 4-200 6 KIBILOSÁLVARO MILENA. [address] [place] [address], [address] [place] [address], . tel:[phone] [facility], [address] [place] [address], [address] [place] [address], tel:[phone] [facility] In Patient No Information 7-200 6 KIBILOSÁLVARO MILENA. [address] [place] [address], [address] [place] [address], . tel:[phone] [facility], [address] [place] [address], [address] [place] [address], tel:[phone] [facility] No Information January-2 5-200 6 KIBILOSÁLVARO MILENA. [address] [place] [address], [address] [place] [address], [place]. tel:[phone] Referring Provider: Jaquan Dowell, [address] [place], [place], [facility]. tel:[phone] [facility], [address] [place] [address], [address] [place] [address], tel:[phone] [facility] No Information Oct-0 2-200 3 KIBILOSKI MILENA. [address] [place] [address], [address] [place] [address], [place]. tel:[phone] [facility], [address] [place] [address], [place], [place], [id number], [place] tel:[phone] [facility] No Information No Information Family History Family Member Type Diagnosis Age At Onset No Information Payers Payer name Insurance type Covered green party ID Saleem ya(s) [facility] [id number] Medicare Part B [id number] Social History Type Description Quantity Date Captured Comments Sex Male Smoking Status No Information Chief Complaint And Reason For Visit No Information Reason For Referral Reason For Referral No Information Plan Of Treatment Date Type Action Status Future Order: Lab Order Cervical W/o Contrast ([id number]), Appointment on: , Sent on: Sent Future Order: Lab Order L Spine 3VW w/spot ([id number]), Sent on: Sent Future Order: Lab Order Thoracic Spine 2VW ([id number]), Sent on: Sent Future Order: Lab Order C Spine 2VW ([id number]), Sent on: Sent Future Order: Lab Order Lumbar W /o Contrast ([id number]), Appointment on: , Sent on: Sent Future Order: Lab Order Thoracic W/o Contrast ([id number]), Appointment on: , Sent on: Sent Future Order: Lab Order Hip 2 VW Left ([id number]), Sent on: Sent History Of Present Illness Encounter Date Complaint History Of Prese nt Illness No Information Functional Status Date Functional Assessmen t No Information Instructions Date Instruction Additional Infor mation No Information Assessments Type Assessment Date No Information Patient Care Teams Name Effective Dates (start - stop) Status Members No Information
--- OUTSIDE RECORDS SUMMARY | 2025-06-27 07:36 | XMS_ITS ---
Author Organization [facility] [place] Address [address] [place] [address] Care Team Providers Care Nib Inspector Name Role Phone Andres Zayas Primary Care Provider REASON FOR VISIT labs Encounters Encounter Location Date Provider Diagnosis [facility] [address] [place] [address] 06/27/2025 Andres Zayas Hypertension I10 and Thrombocytopenia D69.6 Assessments Encounter Date Diagnosis (ICD Code) Assessment Notes Treatment Notes Treatment Clinical Notes Section Notes 06/27/2025 Hypertension (ICD-10 - I10) 06/27/2025Thrombocytopenia (ICD-10 - D69.6) Plan Of Treatment Pending Test Test Name Order Date CBC W/AUTO DIFF 06/27/2025 Progress Notes * Nikunj TABOR EDOB:1959 (65 yo M)Acc No.[id number]:06/27/2025 Patient:?Nikunj TABOR :1960???Age:65 Y???Sex:MalePhone:[phone] Address:[address] [place], [place] [address] [address] Subjective: * Chief Complaints: * L abs * Medical History: * Surgical History: * Hospitalization/Major Diagno stic Procedure: * Medications: Objective: * Vitals: * Physical Examination: ??? Assessment: * Assessment: 1.?Hypertension - I10 (Primary)???2.?Thrombocytopenia - D69.6?? Plan: * Treatment: ?LAB: CBC W/AUTO DIFF2.?Thrombocytopenia?LAB: CBC W/AUTO DIFF * Procedure Codes: * true * Date:?Generated for Printing/Faxing/eTransmitting on:?07/11/2025 09:56 AM EST
--- OUTSIDE RECORDS SUMMARY | 2025-07-11 09:56 | XMS_ITS | Encounter Summary ---
Author Organization [facility] Address [address] [place] [address] Care Team Providers Care Facing Slitter Name Role Phone Mario Zayas MD Primary Care Provider [phone] Encounter Details DateTypeDepartmentCare Team (Latest Contact Info)Kztrlcpnklw69/23/2025Telephone [facility] at [facility] [address] [place] [address] Tari Nevarez MA Social History Tobacco UseTypesPacks/DayYears UsedDateSmoking Tobacco: FormerCigarettes Smokeless Tobacco: NeverAlcohol UseStandard Drinks/WeekCommentsYes0 (1 standard drink = 0.6 oz pure alcohol)occasionalSex and Gender InformationValueDate RecordedSex Assigned at LiiqwKpjz06/05/2025 3:26 PM EDTLegal XrpVwbc63/15/2024 2:46 PM ESTGender BlofwgtxBtve55/05/2025 3:26 PM EDTSexual Orientation Heterosexual or Zwkooqij73/05/2025 3:26 PM EDTdocumented as of this encounter [...] MemberRelationshipSpecialtyStart DateEnd Date Mario Zayas MD [address] [facility] [address] [address] PCP - GeneralFamily Medicine02/09/25documented as of this encounter
--- OUTSIDE RECORDS SUMMARY | 2025-07-11 09:56 | XMS_ITS | Clinical Summary ---
Author Organization [facility] Address [address] [place] [address] Care Team Providers Care Volcanologist Name Role Phone Pauly Santacruz BLEACHER OPERATOR Unavailable Mario Zayas MD Primary Care Provider [phone] Allergies Active AllergyReactionsCriticalityNoted DateCommentsGluten MealGI intoleranceLow 05/08/2022Isosorbide JppucveEhdorfxrHlf15/14/2022 Medications MedicationSigDispense QuantityRefillsLast FilledStart DateEnd DateStatus albuterol [...] Inhale 3 mL5Active Active Problems ProblemNoted DateDiagnosed BjhqBsspfriuiq39/14/2024DD (degenerative disc disease), kbsswe0001/20/2024 Overview (01/20/2024): The patient is a 62 [...] has had no benefit with gabapentin increase. Svhsttkctac36/14/2024oronary artery disease involving coronary bypass graft of eagle heart without angina /12/2022History of maze procedure 05/20/2022Hx of CABG05/20/2022aroxysmal atrial qjhaapfruwdp57/12/2022Thoracic aortic aneurysm without eksguqk5805/20/2022 Resolved Problems ProblemNoted DateDiagnosed DateResolved DateCentrilobular /18/2025 2025 Overview (2025): Noted by [facility] last documented on 20241027 Hypertensive heart disease with heart hluiviq66 Overview (2025): Noted by [facility] last documented on 20241001 Chronic dtpljhuhktfcczf64hronic systolic heart failure Erectile ntvwwnctmkz24ardiomyopathy, sacfrgno94lass 2 severe obesity due to excess calories with serious comorbidity and body mass index (BMI) of35.0 to 35.9 in adult08/16/2024 2025Pain in wristPure bhrqgnxujymosrynacog78/09/2024 03/25/20251030Ryjhzvlbb86Mixed wzyzmrspljlgqp31 Primary dqoykgypnydk64Peripheral ucofmmoogztbxq60/20/2023 06/27/2023eliac ljhfazj57ervicalgia Headache in back of headhronic obstructive lung disease Sinus wgwzfwekavx69 Encounters DateTypeDepartmentCare WaqaAzfrdqgatnr30/29/2025bstract [facility] [address] [place] [address] Yuri Rowe DPM 07/06/2025bstract [facility] [address] [place] [address] Yuri Rowe DPM 06/23/2025 9:30 AM EDTOffice Visit [facility] [address] [place] [address] Yuri Rowe DPM PVD (peripheral vascular disease); Other polyneuropathy; Pain due to onychomycosis of toenails of both feet; Paronychia, toe, left06/23/2025amboo flowsheet [facility] [address] [place] [address] Yuri Rowe DPM 06/23/20253480Bodwlh26/08/2025 9:30 AM EDTOffice Visit [facility] [address] [place] [address] Tree Carmona, Otorrhea of right ear (Primary Dx); Dysfunction of right eustachian tube; Chronic uutpnpbdwtvuxth98/08/2025amboo flowsheet [facility] [address] [place] [address] Tree Carmona, 04/15/2025Travelfrom Last 3 Months Immunizations ImmunizationAdministration DatesNext DueInfluenza, High Dose Seasonal, Preservative Free05/23/2021Influenza, injectable, MDCK, preservative free, vagcwuqqjtjz38/06/2023fizer Purple Cap SARS-CoV-2 Wmoyquyeffa78/17/2021, 09/20/2020Tdap110/14/2022 Family History Medical HistoryRelationNameCommentsHeart diseaseFatherCancerMotherHeart disease MotherHypertensionMotherDiabetesSiblingRelationNameStatusCommentsFatherMother SiblingAlive Social History Tobacco UseTypesPacks/DayYears UsedDateSmoking Tobacco: QwhkfsNlbcqxuipg885 09/08/1974 - 09/08/2009Smokeless Tobacco: Never Tobacco Cessation:Counseling Given: Yes Alcohol UseStandard Drinks/WeekCommentsNever0 (1 standard drink = 0.6 oz pure alcohol)ocassionallySex and Gender InformationValueDate RecordedSex Assigned at UqccgFubz69/16/2023 9:38 AM EDTLegal UvsXiwt3402/06/2023 9:13 AM EDTGender AmezpgkgEdpk43/16/2023 9:38 AM EDTSexual OrientationNot on file Last Filed Vital Signs Vital SignReadingTime TakenCommentsBlood Whdghobg793/8204 10:42 AM EDT Ekudl8882/ 10:42 AM EDTTemperature--Respiratory Ksmg0454 9:50 AM EDTOxygen Mejdjqzusf56%12/27/2024 10:42 AM EDTInhaled Oxygen Concentration-- Sfidzz204 kg (250 lb)06/23/2025 9:50 AM FWBQmchaf868.8 cm (5' 10 )06/23/2025 9:50 AM EDTBody Mass Index35.8706/23/2025 9:50 AM EDT Plan of Treatment DateTypeDepartmentCare Team (Latest Contact Info)Mjxmxfzaczt39/08/2026 10:50 AM ESTProcedure Visit [facility] [address] [facility] 120 [place] [address] Yuri Rowe DPM [address] [facility] 5 [place] [address] 10/17/2025 10:15 AM ESTOffice Visit [facility] [address] [address] Tree Carmona, DO [address] [place] [address] Insurance Care Teams Team MemberRelationshipSpecialtyStart DateEnd Date Mario Zayas MD [address] [facility] [place] [phone] PCP - GeneralFamily Xaounrdv61/16/25 Pauly Santacruz NP [address] [place] [address] Referring Physicianmi Medicine03/15/24
--- OUTSIDE RECORDS SUMMARY | 2025-07-11 09:57 | XMS_ITS | Encounter Summary ---
Author Organization [facility] Address [address] [place] [address] Care Team Providers Care Chainer Name Role Phone Pauly Santacruz PRACTICE PERFORMANCE MANAGER Unavailable Mario Zayas MD Primary Care Provider [phone] Encounter Details DateTypeDepartmentCare Team (Latest Contact Info)Qeorttbliga86/29/2025bstract [facility] [address] [place] [address] Yuri Rowe DPM [address] [facility] 5 [place] [address] Social History Tobacco UseTypesPacks/DayYears UsedDateSmoking Tobacco: QvfzlzXuqnabyklg072 09/08/1974 - 09/08/2009Smokeless Tobacco: NeverAlcohol UseStandard Drinks/Week CommentsNever0 (1 standard drink = 0.6 oz pure alcohol)ocassionallySex and Gender InformationValueDate RecordedSex Assigned at XmkrdDrns50/16/2023 9:38 AM EDTLegal PxuFuqr3702/06/2023 9:13 AM EDTGender ClgmtfsjCxie18/16/2023 9:38 AM EDT Sexual OrientationNot on filedocumented as of this encounter Plan of Treatment DateTypeDepartmentCare Team (Latest Contact Info)Dggeyjpgtkf83/08/2026 10:50 AM ESTProcedure Visit [facility] [address] [place] [address] Yuri Rowe DPM [address] [address] 10/17/2025 10:15 AM ESTOffice Visit [facility] [address] [facility] [place] [address] Tree Carmona DO [address] [facility] [place] [address] documented as of this encounter Visit Diagnoses Not on filedocumented in this encounter Care Teams Team MemberRelationshipSpecialtyStart DateEnd Mario Zayas MD [address] [place] [address] PCP - GeneralFamily Qpkbkuio23/16/25 Pauly Santacruz NP [address] [place] [address] Referring PhysicianFamily Medicine03/15/24documented as of this encounter
--- OUTSIDE RECORDS SUMMARY | 2025-07-11 09:57 | XMS_ITS | Patient Health Record ---
Author Organization [facility] Address [address] [facility] [place] [id number] Care Team Providers Care Network Security Analyst Name Role Phone Pauly Santacruz Primary Care Provider Aditya Casasyssa Unavailable [phone] Allergies No Known Allergies Results Component Value Reference Range Notes LIPID PANEL WITH REFLEX TO D IRECT LDL Reviewed date:09/18/2024 12:27:51 PM Interpretation: Performing Lab: Notes/Report: CHOLESTEROL 163 100-199 mg/dL QGRHHFFVQKPSS61548-695 mg/dL VLDL-CHOL, CALCULATED 33<30 mg/dLHDL-CHOL42>=40 mg/dL LDL-CHOL, [...] risk <7.1 <5.6 high risk >7.1 >5.6 CHOL/HDL3.92.0-4.5ANA/SEBASTIAN AB ID PANEL Reviewed date:09/18/2024 12:27:51 PM Interpretation: Performing Lab: Notes/Report:DNA DS ANTIBODY9<10 IU/mL Interpretation of dsDNA Antibody results: < or = 4: Negative 5 - 9: Indeterminate > or =10: Positive FLORES (SM) ANTIBODY0.4<1.0 AICHROMATIN AB<0.2<1.0 AISJOGREN'S SS-A ANTIBODY<0.2 <1.0 AISJOGREN'S SS-B ANTIBODY<0.2<1.0 AIRNP IGG<0.2<1.0 AISCLERODERMA AB<0.2 <1.0 AIJO-1 ANTIBODY<0.2<1.0 AICENTROMERE B ANTIBODY<0.2<1.0 AIRIBOSOMAL P PROTEIN AB0.4<1.0 AIAMYLASE Reviewed date:09/18/2024 12:27:51 PM Interpretation: Performing Lab: Notes/Report:[id number] U/LANTI NUCLEAR AB REFLEX TITER n ABID Reviewed date:09/18/2024 12:27:51 PM Interpretation: Performing Lab: Notes/Report:ANTI NUCLEAR ANTIBODIESPOSITIVENegative HARRIETT by Multiplex Flow Immunoassay is intended for the qualitative screening of specific antinuclear antibodies (HARRIETT), the quantitative detection of antibody to dsDNA, and the semi-quantitative detection of ten (10) separate antibody assays (Chromatin, Ribosomal P, SS-A, SS-B, Sm, SmRNP, LINE LOCATOR, Scl-70, Faustina-1, and Centromere B) in human serum. HARRIETT TITER Reviewed date:09/18/2024 12:27:51 PM Interpretation: Performing Lab: Notes/Report:HARRIETT PATTERN (REPORTED TITER)<1:80<1:80 TITER Anti-Nuclear Antibodies by IFA negative for homogeneous, speckled, nucleolar and centromere patterns. COMPREHENSIVE METABOLIC PANEL (AMA) Reviewed date:09/18/2024 12:27:51 PM Interpretation: Performing Lab: Notes/Report:UCUEFVR27371-556 mg/bDOAMKWT519708-223 mmol/LPOTASSIUM4.53.5-5.4 mmol/GDZJFDVIG77715-758 mmol/OYL57485-76 mmol/OWIR909-33 mg/dL CREATININE, BLOOD 0.860.67-1.30 mg/dLeGFR (2020 CKD-EPI)97>59 mL/min/1.01i0ETFMHSE6.88.6- 10.5 mg/Swetha. PROTEIN6.46.0-8.3 g/dLALBUMIN4.33.5-5.2 g/dLGLOBULIN2.11.8-3.8 g/dL A/G RATIO2.01.0-2.5 RATIOALK LVPO5291-989 U/UHDK-YSKN230-59 U/MDNA-VVWD441-72 U/LT. BILIRUBIN0.5<1.3 mg/dLCBC W/AUTO DIFF Reviewed date:09/18/2024 12:27:51 PM Interpretation: Performing Lab: Notes/Report:WBC8.13.6-11.0 THDS/CMMRBC4.224.40-6.10 MILL/GPXZGZ11.713.0-18.0 G/DLHCT41.539-52 %UIN2809-688 fLMCH32.526.0-32.0 lzVYET02.032.0-35.0 g/dlRDW12.7 11.2-14.8 %HQUYLOMF647812-352 THOUS/UTRWJDOTVEAIEJ24.545-75 %UHLRVOPGFKA64.720- 45 %MONOCYTES3.60-13 %EOSINOPHILS0.20-5 %BASOPHILS0.60-2 %IMMATURE GRAN1.40-2 % ABS NEUTROPHILS6.761.9-8.0 K/uLABS LYMPHOCYTES0.870.9-5.2 K/uLABS MONOCYTES0.29 0.1-1.0 K/uLABS EOSINOPHILS0.020.0-0.80 K/uLABS BASOPHILS0.050.0-0.2 K/uLABS IMMATURE GRAN0.110.00-0.06 K/uL UNLESS OTHERWISE INDICATED, ALL TESTING PERFORMED AT: [facility] [address] [place] [address] PARTY PLAN SALESPERSON: SISSY PEARSON M.D. CLIA NUMBER [id number] CAP ACCREDITATION AUID [id number] Reason For Referral No Information Medications Medication [...] Vaccine Route Administration Date Status Comme nts *Eafqnjkwp-Avwikfaje-Zafsq te IM Intramuscular 08/13/2023 Administered *Tdap (Adacel)-PrivateIM Mzujbcrdnsefk83/06/2023dministered Social History Tobacco Use: Social History Observation [...] alcohol in the p ast year? 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 data In the past year, [...] 2 nights in a row in a longterm, [place] health care [place], chcf center, orjuvenile correctional facility?Nopatient entered dataAre you a refugee?Nopatient entered dataWhat country are you from?[place] Statespatient entered dataDo you feel physically and emotionally safe where you currently live?Yespatient entered dataIn the past year, have you been afraid of your partner or ex-partner?Nopatient entered dataPRAPARE Score:3 Problems Problem Type SNOMED Code ICD Code Onset Dates Problem Status W/U Status Risk Notes Problem Celiac disease (884322474) Celiac disease (K90.0) ActiveconfirmedDx for mirror finishing machine operator referral only.ProblemNausea (852026504)Nausea (R11.0)ActiveconfirmedProblemAtherosclerotic heart disease of [place] coronary artery without angina pectoris (025345886666155)Coronary artery disease with history of coronary revascularization (I25.10)ActiveconfirmedProblemErectile dysfunction (disorder) (245522900)Erectile dysfunction, unspecified erectile dysfunction type (N52.9)ActiveconfirmedDx for lab work only.ProblemArthritis (4565926)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)ActiveconfirmedProblemNeuropathy (333179639) Neuropathy (G62.9)ActiveconfirmedProblemArthritis (9923755)Arthritis (M19.90) ActiveconfirmedProblemInflammatory and toxic neuropathy (336986172)Peripheral polyneuropathy (G62.9)ActiveconfirmedProblemPain in wrist (88345898)Wrist arthralgia (M25.539)Activeconfirmed Vital Signs Heart Rate 78 [...] Location Date Provider Diagnosis Main [address] [place] [id number] 09/15/2024 Charis Yessenia Nausea R11.0 ; Rayo k stools R19.5 ; Screening for cardiovascular condition Z13.6 ; Obesity, Class II, BMI 35-39.9 E66.812 and BMI 37.0-37.9, adult Z68.37 Main [address] [place] [address] 09/18/2024 Charis Yessenia [address] [place] [address] [facility] M19.90 Assessments Encounter Date Diagnosis (ICD Code) [...] Coverage End Date [employer] [address] [phone] [id number] Aliya Causeyelf - patient is the tioofea36 2019 Medical (General) History Medical History History ICD Code GERD (gastroesophageal reflux disease) K 21.9 COPD (chronic obstructive pulmonary dise ase) J44.9 Arthritis Chronic back painM54.9Oxygen dnscniickS24.81Atrial terdywdniubs901.31Coronary artery disease with history of coronary spclbnwjtbuqdfiulT78.10Peripheral upwoolglnmV61.9Celiac ufdiloaU85.0Surgical History Surgery Date(Month/Year) amputation right hand finger 1978 hernia 1989 skin cancer removal on back 1989 left hip replacement 2005 heart surgery - CABG, ablation 2015 right hip replaced 2016 right shoulder 2017 lasic surgery tubes in right ear
--- OUTSIDE RECORDS SUMMARY | 2025-07-11 09:57 | XMS_ITS | Clinical Summary ---
Author Organization [facility] Address [address] [place] [address] Phone Care Team Providers Care Marine Habitat Resource Specialist Name Role Phone Unavailable Primary Care Provider Unavailabl e Social History Tobacco UseTypesPacks/DayYears UsedDateSmoking Tobacco: Never AssessedSex and Gender InformationValueDate RecordedSex Assigned at BirthNot on fileLegal Sex Male08/03/2022 11:25 AM ESTGender IdentityNot on fileSexual OrientationNot on file Last Filed Vital Signs Vital SignReadingTime TakenCommentsBlood Mdtrgxbh579/8609 2:58 PM EDT Yyvtk4163 2:58 PM KJAGxcxyiinubp83.8 ??C (98.2 ??F)05/29/2022 2:58 PM EDTRespiratory Bdzk8251 2:58 PM EDTOxygen Mjennnaowe59%05/29/2022 2:58 PM EDTInhaled Oxygen Concentration--Qpfotv434 kg (239 lb 7 oz)05/29/2022 2:58 PM SKDOkcxrh428 cm (5' 7.32 )05/29/2022 2:58 PM EDTBody Mass Index37.1509 2:58 PM EDT Plan of Treatment Not on file
--- OUTSIDE RECORDS SUMMARY | 2025-07-11 09:57 | XMS_ITS | Encounter Summary ---
Author Organization [facility] Address [address] [place] [address] Care Team Providers Care Pharmaceutical Sales Name Role Phone Pauly Santacruz HISTORIC PRESERVATIONIST Unavailable Mario Zayas MD Primary Care Provider [phone] Encounter Details DateTypeDepartmentCare Team (Latest Contact Info)Kjiahtyimuh28/29/2025bstract [facility] [address] [place] [address] Yuri Rowe DPM [address] [facility] 5 [place] [address] Social History Tobacco UseTypesPacks/DayYears UsedDateSmoking Tobacco: WhxqzpFstrhsmbie601 09/08/1974 - 09/08/2009Smokeless Tobacco: NeverAlcohol UseStandard Drinks/Week CommentsNever0 (1 standard drink = 0.6 oz pure alcohol)ocassionallySex and Gender InformationValueDate RecordedSex Assigned at AdzdfKtkh10/16/2023 9:38 AM EDTLegal OdtCldk6402/06/2023 9:13 AM EDTGender JsxddkorBnzk42/16/2023 9:38 AM EDT Sexual OrientationNot on filedocumented as of this encounter Plan of Treatment DateTypeDepartmentCare Team (Latest Contact Info)Jdikudkajjs71/08/2026 10:50 AM ESTProcedure Visit [facility] [address] [place] [address] Yuri Rowe DPM [address] [address] 10/17/2025 10:15 AM ESTOffice Visit [facility] [address] [facility] [address] Tree Carmona DO [address] [facility] [place] [address] documented as of this encounter Visit Diagnoses Not on filedocumented in this encounter Care Teams Team MemberRelationshipSpecialtyStart DateEnd Mario Zayas MD [address] [place] [address] PCP - GeneralFamily Rmzvxqoj30/16/25 Pauly Santacruz NP [address] [place] [address] Referring PhysicianFamily Medicine03/15/24documented as of this encounter
--- OUTSIDE RECORDS SUMMARY | 2025-07-11 09:57 | XMS_ITS | Patient Health Record ---
Author Organization [facility] Address [address] [place] [address] Care Team Providers Care Industrial Design Engineer Name Role Phone Jaquan Dowell MD Primary [...] MGdaily ORALActiveSymbicort 80-4.5 MCG/ACT2 puffs twice daily ZZHSJPJVNY92ActiveSpiriva HandiHaler 18 MCG2 puffs twice daily BTYDFIFRZX90ActiveProAir HFA 108 (90 Base) MCG/ACT use every 4 hours JQEVNHFVPW81ActivePlavix 75 MGTake one by mouth daily ORALActiveMagnesium Oxide 400 (240 Mg) MGTake one (1) tablet by mouth twice a day ORALActive Problems Problem Type SNOMED Code ICD Code Onset Dates Problem Status W/U Status Risk Notes Problem 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, 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, 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 Active confirmed ProblemIron deficiency anemia (04955462)Iron deficiency anemia, unspecified (D50.9)03/09/2013ctiveconfirmedProblemTesticular hypofunction (328008445) Testicular hypofunction (E29.1)11/02/2013ctiveconfirmedProblemSleep apnea (19764349)Sleep apnea, unspecified (G47.30)11/25/2013ctiveconfirmedProblem Hereditary disorder of nervous system (580403382)Hereditary and idiopathic neuropathy, unspecified (G60.9)12/03/2013ctiveconfirmedProblemAngina pectoris (292463956)Angina pectoris, unspecified (I20.9)11/09/2015ActiveconfirmedProblem Cardiomyopathy (71577984)Cardiomyopathy, unspecified (I42.9)08/27/2012ctive confirmedProblemHeart failure (25330647)Heart failure, unspecified (I50.9) 03/09/2014ctiveconfirmedProblemDilatation of aorta (45927083)Thoracic aortic ectasia (I77.810)12/11/2015ActiveconfirmedProblemCeliac disease (814355998) Celiac disease (K90.0)ActiveconfirmedProblemIntestinal malabsorption (121333866) Intestinal malabsorption, unspecified (K90.9)09/27/2013ctiveconfirmedProblem Hemoptysis (42598956)Hemoptysis (R04.2)12/20/2013ctiveconfirmedProblemShortness of breath (762504764)Shortness of breath (R06.02)11/09/2015Activeconfirmed ProblemFatigue (17661390)Other fatigue (R53.83)11/08/2013ctiveconfirmedProblem Solitary pulmonary nodule (616673865)Solitary pulmonary nodule (R91.1)12/30/2013 ActiveconfirmedProblemAbnormal results of cardiovascular function studies (975832174)Abnormal result of other cardiovascular function study (R94.39) 11/30/2015Activeconfirmed Plan Of Treatment No Information Insurance Providers Payer Name Payer Address Payer Phone Subscriber Number Group Number Insured Name Patient Relationship to Insured Coverage Start Date Coverage End Date [employer] [address] [address] [place], [place] [phone] [id number], RobertSelf - patient is the insured Medical (General) History Surgical History Surgery Date(Month/Year) 3 finger amputation,hernia, Total Hip Ar throplasty, Past SurgHx Till:04/22/2014
--- OUTSIDE RECORDS SUMMARY | 2025-07-11 09:57 | XMS_ITS | Clinical Summary ---
Author Organization [facility] Address [address] [place] [address] Care Team Providers Care Dopeman Name Role Phone Mario Zayas MD Primary Care Provider [phone] Allergies No known active allergies Medications MedicationSigDispense [...] Active Problems ProblemNoted DateDiagnosed DateObstructive sleep apnea lykmuvgn65/21/2025enign hypertensive heart disease without congestive heart rgtgazg5205/29/2025Nausea 04/14/2025bnormal cardiovascular stress test04/05/20251411Yoizixgop64/09/2024eliac uarwcyo8908/16/2024oronary artery disease involving [place] coronary artery of [place] heart without angina rosgfsow35/09/2024Erectile kmnzwbjstjy92/09/2024ain in wrist08/16/2024eripheral garcrosxmmyvns30/09/2024ardiomyopathy, ischemic 08/16/2024hronic systolic heart oovyjar4808/16/2024hronic anticoagulation 08/16/2024ure vkhrypyfncjyrrqtbkwd26/09/2024lass 2 severe obesity due to excess calories with serious comorbidity and body mass index (BMI) of35.0 to 35.9 in adult08/16/2024Mixed njwraggmjtlthn18/17/2024Essential hypertension 06/24/2024DD (degenerative disc disease), hbudkd0501/20/2024 Overview (08/16/2024): The patient is a 62 [...] has had no benefit with gabapentin increase. Lkjhkjahdk53/14/6185Fxmtsgyyjqc98/14/2024History of maze parixoosf73/12/2022 Paroxysmal A-fib05/20/2022Thoracic aortic aneurysm without idrvhoc5405/20/2022 Kjzbtzovsqb66/01/2018Headache in back of head04/08/2018 Resolved Problems ProblemNoted DateDiagnosed DateResolved DateAbdominal aortic aneurysm (AAA) without hwdbzic66/27/38264001/02/2025Left ventricular xlpbesyyyer46/17/2024 04/18/2025 Encounters DateTypeDepartmentCare GkkuAglzrsywmvo42/23/2025Telephone [facility] [address] [facility] [place] [address] Tari Nevarez MA 06/02/2025Telephone [facility] [address] [place] [facility] [place] [address] Melita Ignacio MA 05/27/2025 11:00 AM EDTOffice Visit [facility] [address] [place] [facility] [place] [address] Dorinda Diaz MD Coronary artery disease involving [place] coronary artery of [place] heart without angina pectoris (Primary Dx); Cardiomyopathy, [...] PM EDT - 04/21/2025 1:30 PM EDTSurgery [facility] [address] [place] [address] Adam Valle MD Coronary psexvmdqdjz98/14/2025 10:42 AM EDT - 04/21/2025 4:08 PM EDTHospital Encounter [facility] [address] [place] [address] Adam Valle MD Abnormal cardiovascular stress test Discharge Disposition: Home or Self Care ()04/21/2025Results Follow-Up [facility] [address] [place] [address] Dorinda Diaz MD Cardiac okcvyrlngaatmrd08/14/8316Ofqybo01/11/1999Pzgish41/07/2025 10:00 AM EDT Office Visit [facility] [address] [place] [facility] [place] [address] Dorinda Diaz MD Abnormal cardiovascular stress test (Primary Dx); Chronic systolic heart failure (CMS/HCC); Cardiomyopathy, ischemic; Paroxysmal A-fib (CMS/HCC); History of maze procedure; Aneurysm of ascending aorta without rupture; Essential hypertension; Pure hypercholesterolemia; Class 2 severe obesity due to excess calories with serious comorbidity and body mass index (BMI) of35.0 to 35.9 in adult (CMS/HCC)04/12/2025Telephone [facility] at [address] [address] Tari Nevarez MA from Last 3 Months Family History Medical HistoryRelationNameCommentsCoronary artery diseaseFatherCoronary artery diseaseMotherRelationNameStatusCommentsFatherDeceasedMotherDeceasedSisterAlive Social History Tobacco UseTypesPacks/DayYears UsedDateSmoking Tobacco: FormerCigarettes Smokeless Tobacco: Never Tobacco Cessation:Counseling Given: Not Answered Alcohol UseStandard Drinks/WeekCommentsYes0 (1 standard drink = 0.6 oz pure alcohol)occasionalSex and Gender InformationValueDate RecordedSex Assigned at QqwvvDbup00/05/2025 3:26 PM EDTLegal RrgArin87/15/2024 2:46 PM ESTGender ZhkhvxglEddx29/05/2025 3:26 PM EDTSexual OrientationHeterosexual or Straight 04/12/2025 3:26 PM EDT Last Filed Vital Signs Vital SignReadingTime TakenCommentsBlood Wdldprtc22/56005/27/2025 11:01 AM EDT Djtjq9328/19/2025 11:01 AM EDTTemperature--Respiratory Qkxh328404/21/2025 3:45 PM EDTOxygen Bbptqlogan21%05/27/2025 11:01 AM EDT3 lpm o2 via n/cInhaled Oxygen Concentration--Wiyomc682 kg (237 lb)05/27/2025 11:01 AM GJWLwwwan896.3 cm (5' 9 )05/27/2025 11:01 AM EDTBody Mass Djvje187605/27/2025 11:01 AM EDT Plan of Treatment Health MaintenanceDue DateLast DoneCommentsCT Tkedxqthqxjf1960Colonoscopy 1960Colorectal Cancer Zjglwgehw1960FIT-DNA1960FIT1960 FOBT1960Medicare Annual Wellness (AWV)1960Medicare Initial Physical (IPPE)1960 6993Zhxrdivmrynpo1960Depression Evfwxlare70/18/1972 Pneumococcal Vaccine: 50+ Years (1 of 2 - PCV)1979Zoster Vaccines (1 of 2) 2010Fall Risk Aasoqptbg11/18/2025COVID-19 Vaccine (3 - season) 502/, 09/20/2020Influenza Vaccine (#1)/02/2023, 05/23/2021dult Kjlexae91/02/2023HIB VaccinesAged OutNo longer eligible based on patient's [...] Procedures Procedure NamePriorityDate/TimeAssociated DiagnosisCommentsINSTANT WAVE FREE RATIO (IFR)Ayjtwzx9104/21/2025 1:55 PM EDT Abnormal cardiovascular stress test CORONARY BYPASS GRAFT FERKBHlpjdpy17/14/2025 1:55 PM EDT Abnormal cardiovascular stress test CORONARY ZAAYWQOJJZUJrornbg99/14/2025 1:55 PM EDT Abnormal cardiovascular stress test ACTIVATED CLOTTING IBQKUxkcdzv17/14/2025 1:45 PM EDT ECG 12-HSFLCjtitlc15/14/2025 12:25 PM EDT from Last 3 Months Results * CORONARY ANGIOGRAPHY, CORONARY BYPASS GRAFT STUDY, INSTANT WAVE FREE RATIO (IFR) (04/21/2025 1:55 PM EDT)Anatomical RegionLateralityModalityOther Specimen (Source)Anatomical Location / LateralityCollection Method / Volume Collection TimeReceived Time Narrative 04/21/2025 2:11 PM EDT [...] infiltrated over the left radial artery. ??A 6-Armenian sheath was placed in left radial artery. [...] was maintained at >250 seconds. A 6 Armenian XB4 was engaged to the [place]. A [...] cardiovascular stress test [R94.39] Authorizing ProviderResult TypeResult Statushumberto Diaz [facility] [place] [place] [facility]ARDI[facility] CATH PROCEDURESFinal Result * (ABNORMAL) Activated clotting time (04/21/2025 1:45 PM EDT)ComponentValueRef RangeTest MethodAnalysis TimePerformed AtPathologist SignatureActivated Clotting Xqdw722(H)82 - 152 s004/21/2025 1:49 PM EDTNOR-[facility] ([facility]) Specimen (Source)Anatomical Location / LateralityCollection Method / Volume Collection TimeReceived TimeBloodVenous blood specimen / Jgeylsf3304/21/2025 1:45 PM EDT04/21/2025 1:49 PM EDT Narrative Authorizing ProviderResult TypeResult StatusChyael YEPEZ POINT OF CARE TEST DOCKED DEVICE UNSOLICITED RESULTSFinal ResultPerforming Organization AddressCity/State/ZIP CodePhone Number [facility] ([facility]) [address] [place] [address] * Electrocardiogram, 12-lead (04/21/2025 12:25 PM EDT)ComponentValueRef Range Test MethodAnalysis TimePerformed AtPathologist SignatureVentricular Vuxd55DMD GE MUSEAtrial Pubv34LCBKW MUSEPR Zanustwz426bqWI MUSEQRS WCUZANNM16rqDL MUSEQT Qrkuvucv358kiSW MUSEQTC CALCULATION(BAZETT)411msGE MUSEP Tncz31qcorgnrYW MUSE R-Hlte18zbcejkqHC MUSET Wave Jwdz484cyhogrxKD MUSESpecimen (Source)Anatomical Location / LateralityCollection Method / [...] 04/21/2025 1:28:29 PM Authorizing ProviderResult TypeResult StatusSahumberto Diaz MDECG ORDERABLESFinal ResultPerforming OrganizationAddressCity/State/ZIP CodePhone Number GE MUSE from Last 3 Months Insurance Care Teams Team MemberRelationshipSpecialtyStart Date Mario Zayas MD [address] [facility] [place] [address] [address] PCP - GeneralFamily Medicine02/09/25
--- OUTSIDE RECORDS SUMMARY | 2025-07-11 09:57 | XMS_ITS | Patient Health Record ---
Author Organization [facility] Address [address] [place] [address] Support Name Relationship Address Phone Nikunj Causey Guarantor Unknown [phone] Reason For Referral No Information Problems Problem Type SNOMED Code ICD Code Onset Dates Problem Status W/U Status Risk Notes Problem Encntr screen for infections w sexl mode of transmiss (Z113)03/13/2017Active confirmed Plan Of Treatment No Information
--- OUTSIDE RECORDS SUMMARY | 2025-07-11 09:57 | XMS_ITS | Clinical Summary ---
Author Organization [employer] [facility] Address [id number] [address] [place] [address] Care Team Providers Care Operations Assistant Name Role Phone Pauly Santacruz JOB COST ESTIMATOR-SLOTTER OPERATOR Primary Care Provider [phone] Allergies Active AllergyReactionsCriticalityNoted FljqVjokoudtIbrubb12/31/2022Isosorbide AssrkkqkunhOxiuikqz15/14/2022 Medications MedicationSigDispense QuantityRefillsLast FilledStart DateEnd DateStatus omeprazole (PriLOSEC) 40 mg capsule Take 1 capsule (40 mg total) by mouth in the morning.03/19/2022ctive gabapentin (NEURONTIN) 600 mg tablet Take 1 tablet (600 mg total) by mouth 3 (three) times a day.03/30/2022ctive DALIRESP 500 mcg tablet Take 1 tablet (500 mcg total) by mouth in the morning.03/15/2022ctive hdalbzgbwut-hfklsjobo-ibobkgmq (TRELEGY ELLIPTA) 200-62.5-25 mcg blister with device [...] artery disease involving coronary bypass graft of ramona heart without angina pectoris,Paroxysmal atrial fibrillation (CMS-HCC),Aneurysm [...] artery disease involving coronary bypass graft of ramona heart without angina pectoris,Hx of CABG,Paroxysmal atrial fibrillation (CMS-HCC),Aneurysm of ascending aorta without rupture,History of maze procedure Take 100 mg in the morning and 50 mg at night 270 tablet ctive theophylline (BRYAN-24) 400 MG 24 hr capsule Take 1 capsule (400 mg total) by mouth in the morning.Active atorvastatin (LIPITOR) 40 mg tablet Indications:Coronary artery disease involving coronary bypass graft of ramona heart without angina pectoris,Hx of CABG,Paroxysmal atrial [...] artery disease involving coronary bypass graft of ramona heart without angina pectoris,Paroxysmal atrial fibrillation (CMS-HCC),Aneurysm of ascending aorta without rupture,Hx of CABG,History of maze procedureDISSOLVE 1 TABLET UNDER THE TONGUE NEEDED FOR CHEST PAIN- MAY REPEAT EVERY 5 MINUTES IF NEEDED (MAX 3 DOSES.- IF NO RELIEF CALL 911) 25 tablet 4Active lisinopriL (PRINIVIL,ZESTRIL) 5 mg tablet Indications:Coronary artery disease involving coronary bypass graft of ramona heart without angina pectoris,Hx of CABG,Paroxysmal atrial fibrillation (CMS-HCC),Aneurysm of ascending aorta without rupture,History of maze procedure Take 1 tablet (5 mg total) by mouth in the morning. FINAL REFILL UNTIL LABS COMPLETED. 90 tablet 5Active Active Problems ProblemNoted DateDiagnosed DateMixed fqjdwfmqnyytyx30/17/2024rimary nyfptzjhuxef82/17/2024Left ventricular talhtbhfdtz07/17/2024oronary artery disease involving coronary bypass graft of ramona heart without angina pectoris 05/20/2022aroxysmal atrial /12/2022Thoracic aortic aneurysm without thfmwnd1205/20/2022Hx of CABG05/20/2022History of maze qhursifft95/12/2022 Family History Medical HistoryRelationNameCommentsHeart diseaseFatherBreast cancerMotherCancer MotherRelationNameStatusCommentsFatherDeceasedMaternal [...] Last Filed Vital Signs Vital SignReadingTime TakenCommentsBlood Vxscivzs158/6206/24/2024 1:52 PM EDT Cvayv846006/24/2024 1:52 PM EDTTemperature--Respiratory Rate--Oxygen Hombvaturl59% 06/24/2024 1:52 PM EDTInhaled Oxygen Concentration--Lcermc119.1 kg (245 lb) 06/24/2024 1:52 PM XIBShfqom228.7 cm (5' 7.99 )06/24/2024 1:52 PM EDTBody Mass Index37.261 1:52 PM EDT Plan of Treatment Health MaintenanceDue DateLast DoneCommentsDepression Vsvefkaib73/18/1972Zoster (Shingles) Vaccine (1 of 2)2010Fall Risk Cswctmzlk35/18/2025Influenza Pdonfkd05/02/2023, 05/23/2021dult BMI Fsgbrxxss81 Tobacco Nojbhkcvo65Statin Use: Ibahmdlveybxuk14/30/2026 10/07/2024DTaP,Tdap and Td Vaccines (2 - Td or Tdap)RSV ( or age 60+ yrs) (1 - 1-dose 75+ series)2035 [employer] Not on file Insurance * Guarantor: Nikunj CauseyAccount TypeRelation to PatientDate of PhoneBilling AddressPersonal/UlqwptRpeo1960 [address] [place] [address] Care Teams Team MemberRelationshipSpecialtyStart DateEnd Date Pauly Santacruz APRN-CHAO [address] [place] [address] PCP - GeneralFamily Xmswrthz24/17/24
--- OUTSIDE RECORDS SUMMARY | 2025-07-11 09:59 | XMS_ITS | Patient Health Record ---
Author Organization [facility] in [place] Address [address] [place] [address] Care Team Providers Care Sr. Unix System Administrator Name Role Phone Andres Zayas Primary Care Provider Hu Bunn Unavailable [phone] Allergies No Known Allergies Results Component Value Reference Range Notes CBC W/AUTO DIFF Reviewed date:08/16/2024 03:36:52 PM Interpretation: Performing Lab: Notes/Report: CBC AUTO DIFF Reviewed date:06/14/2025 04:33:29 PM Interpretation: Performing Lab: Notes/Report: [facility] , White Blood Count 8.0 4.0-11.0 10 3/uL Red Blood Count4.074.70-6.10 10 6/gZGuihfhmyxf17.314.0-18.0 g/sGQzbwljijuc55.0 42.0-54.0 %Mean Corpuscular Zhpauh603.780.0-94.0 fLMean Corpuscular Hemoglobin 32.725.9-34.0 pgMean Corpuscular HGB Conc32.429.9-35.2 g/dLRed Cell Distribution Width14.711.0-15.0 %Platelet Ooafz145084-124 10 3/uLMean Platelet Volume9.09.5- 13.5 fLNeutrophils Percent Auto79.343.0-75.0 %Lymphocytes Percent Auto10.220.5- 60.0 %Monocytes Percent Auto8.81.7-12.0 %Eosinophils Percent Auto0.60.9-7.0 % Basophils Percent Auto0.20.2-2.0 %Immature Granulocytes Pct Auto0.90.0-0.5 % Neutrophils Absolute Auto6.41.4-6.5 10 3/uLLymphocytes Absolute Auto0.81.2-3.8 10 3/uLMonocytes Absolute Auto0.70.3-0.8 10 3/uLEosinophils Absolute Auto0.10.0- 0.7 10 3/uLBasophils Absolute Auto0.00.0-0.1 10 3/uLImmature Granulocytes Abs Auto0.070.00-0.03 10 3/uLPerforming Lab:see note - [facility] LB PROF 14(COMP METB) Reviewed date:06/14/2025 04:33:29 PM Interpretation: Performing Lab: Notes/Report: [facility] ,Fhnfsk953112-388 mmol/LPotassium4.23.5-5.1 mmol/OJtsciabh18139-030 mmol/LCarbon Ddsdlym79.821.0-32.0 mmol/LAnion Gap10.6Ouglzwx2063-081 mg/dLBlood Urea Nitrogen 29.07.0-18.0 mg/dLCreatinine0.810.70-1.30 mg/dLEstimated GFR ( Denisse>60 >=60 mL/min/1.73m 2Estimated GFR (Non- Tri>60>=60 mL/min/1.73m 2BUN Creatinine Ratio35.2Bxdyvax9.38.5-10.1 mg/dLBilirubin Total0.40.2-1.0 mg/dL Aspartate Amino Zicninntrev9400-46 U/LAlanine Pyduiyuwmmeniccv5583-30 U/L Alkaline Wkirvlwcxcr4517-153 U/LTotal Protein6.76.4-8.2 g/dLAlbumin Level3.63.4- 5.0 g/dLGlobulin3.1Albumin Globulin Ratio1.2Performing Lab:see note - [facility] LBCBC AUTO DIFF Reviewed date:08/17/2024 08:59:34 AM Interpretation: Performing Lab: Notes/Report: [facility] ,White Blood Count11.44.0-11.0 10 3/uLRed Blood Count4.124.70-6.10 10 6/uL Fxatdjviuj64.414.0-18.0 g/fHScvjmxvsgv11.642.0-54.0 %Mean Corpuscular Xzhibz94.5 80.0-94.0 fLMean Corpuscular Wlwocolrew87.525.9-34.0 pgMean Corpuscular HGB Conc 33.029.9-35.2 g/dLRed Cell Distribution Width13.711.0-15.0 %Platelet Wcsxw045 150-450 10 3/uLMean Platelet Volume8.89.5-13.5 fLNeutrophils Percent Auto85.4 43.0-75.0 %Lymphocytes Percent Auto7.420.5-60.0 %Monocytes Percent Auto5.81.7- 12.0 %Eosinophils Percent Auto0.70.9-7.0 %Basophils Percent Auto0.20.2-2.0 % Immature Granulocytes Pct Auto0.50.0-0.5 %Neutrophils Absolute Auto9.71.4-6.5 10 3/uLLymphocytes Absolute Auto0.91.2-3.8 10 3/uLMonocytes Absolute Auto0.70.3-0.8 10 3/uLEosinophils Absolute Auto0.10.0-0.7 10 3/uLBasophils Absolute Auto0.00.0- 0.1 10 3/uLImmature Granulocytes Abs Auto0.060.00-0.03 10 3/uLPerforming Lab:see noteML - [facility] LBCBC AUTO DIFF Reviewed date:01/08/2025 05:36:32 PM Interpretation: Performing Lab: Notes/Report: [facility] ,White Blood Count12.74.0-11.0 10 3/uLRed Blood Count5.464.70-6.10 10 6/uL Jyszqkvmnm44.014.0-18.0 g/nDLxxsccgrev04.242.0-54.0 %Mean Corpuscular Ljlunl72.8 80.0-94.0 fLMean Corpuscular Hczxnstnqr32.125.9-34.0 pgMean Corpuscular HGB Conc 33.229.9-35.2 g/dLRed Cell Distribution Width12.811.0-15.0 %Platelet Grdoq252 150-450 10 3/uLMean Platelet Volume9.49.5-13.5 fLNeutrophils Percent Auto86.7 43.0-75.0 %Lymphocytes Percent Auto6.220.5-60.0 %Monocytes Percent Auto5.81.7- 12.0 %Eosinophils Percent Auto0.20.9-7.0 %Basophils Percent Auto0.30.2-2.0 % Immature Granulocytes Pct Auto0.80.0-0.5 %Neutrophils Absolute Auto11.01.4-6.5 10 3/uLLymphocytes Absolute Auto0.81.2-3.8 10 3/uLMonocytes Absolute Auto0.70.3- 0.8 10 3/uLEosinophils Absolute Auto0.00.0-0.7 10 3/uLBasophils Absolute Auto0.0 0.0-0.1 10 3/uLImmature Granulocytes Abs Auto0.100.00-0.03 10 3/uLPerforming Lab:see noteML - [facility] LBINSULIN Reviewed date:01/08/2025 05:36:32 PM Interpretation: Performing Lab: Notes/Report: [facility] ,Lywdhwp77.02.6-24.9 uIU/mL Performed at: [address] [id number] Associate Professor Of Communication: Candido Villegas PhD, Phone: [phone] Performing Lab:[facility] LBLIPID PROFILE Reviewed date:03/17/2025 06:46:32 PM Interpretation: Performing Lab: Notes/Report: [facility] ,Yugtatexbzgwv614<=150 mg/sHMsoqzmmiqcu923<=200 mg/dLHDL Pqfiuvetywy6272-22 mg/dL <40 mg/dl - HIGH CARDIOVASCULAR RISK > or =60 mg/dl - LOW CARDIOVASCULAR RISK LDL Cholesterol Jvbfhujwwg51.6 >190 mg/dl VERY HIGH 130-159 mg/dl BORDERLINE HIGH 160-189 mg/dl HIGH 100-129 mg/dl NEAR OR ABOVE OPTIMAL <100 mg/dl OPTIMAL VLDL VGESPYNNDPS01.4Chol HDL Ratio2.7 4.4 - 7.1 AVERAGE RISK 7.1 - 11.0 MODERATE RISK 3.3 - 4.4 LOW RISK >11.0 HIGH RISK Performing Lab:see note - [facility] LBSGOT Reviewed date:03/17/2025 06:46:32 PM Interpretation: Performing Lab: Notes/Report: [facility] ,Aspartate Amino Larvsuvkkek8481-68 U/LPerforming Lab:[facility] LBSGPT Reviewed date:03/17/2025 06:46:32 PM Interpretation: Performing Lab: Notes/Report: [facility] ,Alanine Lwhivvrtawwsrjvf3075-44 U/LPerforming Lab:see note - [facility] LBNM jose luis perf SPECT rest str Reviewed date:03/20/2025 04:01:59 PM Interpretation: Performing Lab: Notes/Report: Source Facility: [place] [address] Nuclear Medicine Report Signed Patient: ELISE TABOR MR#: [id number] : 1960 Acct:[id number] Age/Sex: 64 / M ADM Date: 03/17/25 Loc: NM Attending Dr: Benny Diaz M.D. Ordering Physician: Benny Diaz M.D. Date of Service: 03/17/25 Procedure(s): NM jose luis perf SPECT rest str Accession Number(s): [id number] cc: Donna Zayas M.D.; Benny Diaz M.D. Patient Name: ELISE TABOR MR#: [id number] : 1960 Exam Date: 03/17/2025 Ordering Doctor: [...] the study was pending per attending physician [facility] . For more details please see [...] M.D. Signed By: 03/18/251922 DD/ 21 TD/TT: Product Introduction Manager:GLYCOHEMOGLOBIN A1C Reviewed date:06/14/2025 04:33:29 PM Interpretation: Performing Lab: Notes/Report: [facility] ,Glycohemoglobin A1C5.54.5-6.2 % ACTION SUGGESTED > 7.0 ADA THERAPEUTIC TARGET < 7.0 ADA RECOMMENDED LIMIT 4.0 - 6.0 Estimated Average Tcfnjcs538Dqdjzfnune Lab:see noteML - [facility] LB UA RANDOM W or MICROSCOPIC Reviewed date:06/14/2025 04:33:29 PM Interpretation: Performing Lab: Notes/Report: [facility] ,Color UrineYELLOWYELLOWClarity UrineCLEARCLEARSpecific [place] Urine1.020 1.005-1.025pH Urine6.05.0-9.0Protein UrineNEGATIVENEG/TRACE mg/dLGlucose Urine UA>=1000NEGATIVE mg/dLBilirubin UrineNEGATIVENEGATIVEKetones UrineNEGATIVE NEGATIVE mg/dLBlood UrineNEGATIVENEGATIVENitrite UrineNEGATIVENEGATIVE Urobilinogen Urine0.20.2-1.0 EU/dLLeukocyte Esterase UrineNEGATIVENEGATIVEWBC UrineNONE SEENNONE SEEN #/HPFRBC UrineNONE SEEN0-2 #/HPFBacteria UrineTRACENONE SEEN #/HPFMucus UrineSMALLNONE SEENSquamous Epithelial Cell UrineRARENONE/RARE #/LPFCrystals Seen?None SeenNone Seen #/HPFCast Seen?NONE SEENNONE SEEN #/LPF Performing Lab:see noteML - [facility] LBVitamin B6, Plasma Reviewed date:06/17/2025 08:45:45 AM Interpretation: Performing Lab: Notes/Report: [facility] ,Vitamin B6, Plasma4.13.4-65.2 ug/L Adequate: >5.1 Marginal: 3.4 - 5.1 determined by [facility]. It has not been cleared or Performed at: [facility] This test was developed and its performance characteristics Associate Professor Of Communication: Davis Blackburn MD, Phone: [phone] approved by the Food and Drug Administration. Deficiency: <3.[address] [place] [phone] Performing Lab[facility] LBProtein Electro.,S Reviewed date:06/21/2025 02:16:49 PM Interpretation: Performing Lab: Notes/Report: [facility] ,Protein, Total6.36.0-8.5 g/dLAlbumin3.72.9-4.4 g/lNDdcau-5-Mmhtnvmh6.20.0-0.4 g/zBEkrjm-9-Qnzsmuyk3.70.4-1.0 g/dLBeta Globulin0.80.7-1.3 g/dLGamma Globulin0.8 0.4-1.8 g/dLM-SpikeNot ObservedNot Observed g/dLGlobulin, Total2.62.2-3.9 g/dL A/G Ratio1.40.7-1.7Please note:Comment. [address] [place], [place] [id number] Performed at: [facility] mail, or quitline counselor delivery. Associate Professor Of Communication: Candido Villegas PhD, Phone: [phone] Protein electrophoresis scan will follow via computer, Performing Lab:see uri[facility] LBTSH W/ REFLEX FT4 Reviewed date:06/14/2025 04:33:29 PM Interpretation: Performing Lab: Notes/Report: [facility] ,TSH W/ REFLEX FT40.5330.358-3.740 uIU/mLPerforming Lab:see note - [facility] LBMethylmalonic Acid, Serum Reviewed date:06/21/2025 02:16:49 PM Interpretation: Performing Lab: Notes/Report: [facility] ,Methylmalonic Acid, Akyve8391-350 nmol/L determined by [facility]. It has not been cleared or Associate Professor Of Communication: Davis Blackburn MD, Phone: [phone] [address] [place] [phone] Performed at: [facility] approved by the Food and Drug Administration. This test was developed and its performance characteristics Performing Lab:see [facility]Three [facility] LBVitamin B12 Reviewed date:06/15/2025 12:26:54 PM Interpretation: Performing Lab: Notes/Report: [facility] ,Vitamin D38581370-3815 pg/mL [address] [place], [place] [phone] Performed at: [facility] Associate Professor Of Communication: Candido Villegas PhD, Phone: [phone] Performing Lab:see [facility] LBUrine Culture - [facility] Reviewed date:06/16/2025 06:06:27 PM Interpretation: Performing Lab: Notes/Report: [facility] ,[facility]rine [facility] For Report No Growth 2 Days Urine Culture - FR Urine Culture - [facility] No Growth 2 Days Urine Culture - FR Urine Culture - FRMCTesting performed at [facility] No Growth 2 Days Urine Culture - [facility] [place]rine Culture - [id number] [place] [address] No Growth 2 Days Urine Culture - [facility] [place] [place] Performing Lab:see note - [facility] LBXR hip RT 2V w/ pelvis Reviewed date:06/14/2025 04:33:29 PM Interpretation: Performing Lab: Notes/Report: Source Facility: [facility]-[address] [place] [address] [place] [address] XRay Report Signed Patient: ELISE TABOR MR#: [id number] : 1960 Acct:[id number] Age/Sex: 65 / M ADM Date: 06/14/25 Loc: LAB Attending Dr: Donna Zayas M.D. Ordering Physician: Donna Zayas M.D. Date of Service: 06/14/25 Procedure(s): XR hip RT 2V w/ pelvis Accession Number(s): [id number] cc: Donna Zayas M.D. [place] [address] Patient Name: ELISE TABOR MRN: [facility]:[id number] date: 1960 Sex: M Assigned Patient Location: LAB Current Patient Location: LAB Accession/Order Number: [id number] Exam Date: 06/14/2025 10:12 Report Date: 06/14/2025 [...] Salazar M.D. 06/14/2025 11:01 AM Dictation Location: [place] [address] Electronically authenticated by: [id number] Y Date: 06/14/2025 11:01 Dictated By: Uyen Salazar M.D. Signed By: 06/14/25 1103 DD/ 110 TD/TT: Product Introduction Manager:CBC AUTO DIFF Reviewed date:06/27/2025 12:36:47 PM Interpretation: Performing Lab: Notes/Report: [facility] ,White Blood Count7.54.0-11.0 10 3/uLRed Blood Count4.414.70-6.10 10 6/uL Hgaigpybth09.414.0-18.0 g/fLZrzvepjdgd64.142.0-54.0 %Mean Corpuscular Volume 100.080.0-94.0 fLMean Corpuscular Yxnqjrrmgd96.725.9-34.0 pgMean Corpuscular HGB Conc32.729.9-35.2 g/dLRed Cell Distribution Width14.411.0-15.0 %Platelet Count 077536-622 10 3/uLMean Platelet Volume9.29.5-13.5 fLNeutrophils Percent Auto77.4 43.0-75.0 %Lymphocytes Percent Auto12.220.5-60.0 %Monocytes Percent Auto8.01.7- 12.0 %Eosinophils Percent Auto0.90.9-7.0 %Basophils Percent Auto0.40.2-2.0 % Immature Granulocytes Pct Auto1.10.0-0.5 %Neutrophils Absolute Auto5.81.4-6.5 10 3/uLLymphocytes Absolute Auto0.91.2-3.8 10 3/uLMonocytes Absolute Auto0.60.3-0.8 10 3/uLEosinophils Absolute Auto0.10.0-0.7 10 3/uLBasophils Absolute Auto0.00.0- 0.1 10 3/uLImmature Granulocytes Abs Auto0.080.00-0.03 10 3/uLPerforming Lab:see noteML - [facility] LBImmunofixation, Serum Reviewed date:06/16/2025 06:06:27 PM Interpretation: Performing Lab: Notes/Report: [facility] ,Immunofixation Result, SerumComment.No monoclonality detected.Immunoglobulin G, Qn, Blutr203428-3709 mg/dLImmunoglobulin A, Qn, Serum<561-437 mg/dLResult confirmed on concentration.Immunoglobulin M, Qn, Wyeka0006-268 mg/dL Associate Professor Of Communication: Candido Villegas PhD, Phone: [phone] [address] [place], [place] [id number] Performed at: [facility] Performing Lab:see noteLC - [facility] LBANA w/Reflex Reviewed date:06/16/2025 06:06:27 PM Interpretation: Performing Lab: Notes/Report: [facility] HARRIETT DirectNegativeNegative [address] [place], [place] [id number] Associate Professor Of Communication: Candido Villegas PhD, Phone: [phone] Performed at: [facility] Performing Lab:see [facility] LBSGPT Reviewed date:05/27/2025 05:30:12 PM Interpretation: Performing Lab: Notes/Report: [facility] ,Alanine Ykhbjirobwnxzqtt0768-32 U/LPerforming Lab:see note - [facility] LBSGOT Reviewed date:05/27/2025 05:30:12 PM Interpretation: Performing Lab: Notes/Report: [facility] ,Aspartate Amino Hkhzldrhwmd0512-87 U/LPerforming Lab:see [facility] LBLIPID PROFILE Reviewed date:05/27/2025 05:30:12 PM Interpretation: Performing Lab: Notes/Report: [facility] ,Qppczapgbolfa124<=150 mg/xXBosnklgasmx103<=200 mg/dLHDL Fmdaluwafsu6131-02 mg/dL > or =60 mg/dl - LOW CARDIOVASCULAR RISK <40 mg/dl - HIGH CARDIOVASCULAR RISK LDL Cholesterol Xknppgwews19.0 160-189 mg/dl HIGH <100 mg/dl OPTIMAL >190 mg/dl VERY HIGH 100-129 mg/dl NEAR OR ABOVE OPTIMAL 130-159 mg/dl BORDERLINE HIGH VLDL FDMEDRVQUIJ20.0Chol HDL Ratio3.5 4.4 - 7.1 AVERAGE RISK 7.1 - 11.0 MODERATE RISK 3.3 - 4.4 LOW RISK >11.0 HIGH RISK Performing Lab:see note - [facility] LBPROF CHEM 8 (BAS METB) Reviewed date:04/19/2025 08:09:45 PM Interpretation: Performing Lab: Notes/Report: [facility] ,Cpimxw254081-146 mmol/LPotassium5.13.5-5.1 mmol/GUqvybdge23256-008 mmol/LCarbon Yyljglp78.621.0-32.0 mmol/LAnion Gap4.5Gbrqgrn91590-279 mg/dLBlood Urea Nitrogen 25.07.0-18.0 mg/dLCreatinine0.900.70-1.30 mg/dLEstimated GFR ( Denisse>60 >=60 mL/min/1.73m 2Estimated GFR (Non- Tri>60>=60 mL/min/1.73m 2BUN Creatinine Ratio27.8Lafhoxe47.98.5-10.1 mg/dLPerforming Lab:see noteML - [facility] LBCBC AUTO DIFF Reviewed date:04/19/2025 08:09:45 PM Interpretation: Performing Lab: Notes/Report: [facility] ,White Blood Count9.64.0-11.0 10 3/uLRed Blood Count4.414.70-6.10 10 6/uL Kvljtpgysf64.414.0-18.0 g/vQQiiebwaiyl43.342.0-54.0 %Mean Corpuscular Ndavxk20.2 80.0-94.0 fLMean Corpuscular Ngjqybxguv34.725.9-34.0 pgMean Corpuscular HGB Conc 33.329.9-35.2 g/dLRed Cell Distribution Width13.511.0-15.0 %Platelet Cspex014 150-450 10 3/uLMean Platelet Volume9.59.5-13.5 fLNeutrophils Percent Auto86.3 43.0-75.0 %Lymphocytes Percent Auto5.720.5-60.0 %Monocytes Percent Auto6.71.7- 12.0 %Eosinophils Percent Auto0.40.9-7.0 %Basophils Percent Auto0.30.2-2.0 % Immature Granulocytes Pct Auto0.60.0-0.5 %Neutrophils Absolute Auto8.31.4-6.5 10 3/uLLymphocytes Absolute Auto0.61.2-3.8 10 3/uLMonocytes Absolute Auto0.70.3-0.8 10 3/uLEosinophils Absolute Auto0.00.0-0.7 10 3/uLBasophils Absolute Auto0.00.0- 0.1 10 3/uLImmature Granulocytes Abs Auto0.060.00-0.03 10 3/uLPerforming Lab:see noteML - [facility] LBCA echo w/ con Reviewed date:03/20/2025 04:01:59 PM Interpretation: Performing Lab: Notes/Report: Source Facility: [facility]-[address] [place] [address] [place] [address] Cardiology Report Signed Patient: ELISE TABOR MR#: [id number] : 1960 Acct:[id number] Age/Sex: 64 / M ADM Date: 03/17/25 Loc: NM Attending Dr: Benny Diaz M.D. Ordering Physician: Benny Diaz M.D. Date of Service: 03/17/25 Procedure(s): CA echo w/ con Accession Number(s): [id number] cc: Donna Zayas M.D.; Benny Diaz M.D. Patient Name: ELISE TABOR MR#: [id number] : 1960 Exam Date: 03/17/2025 Ordering Doctor: [...] cm2, 3.62 cm2 AoV Area (VTI): Deceleration [place]: Pressure Half-Time: Peak Velocity(Antegrade Flow): 0.90 m/s [...] M.D. Signed By: 03/18/251845 DD/ 44 TD/TT: Product Introduction Manager:MR head/brain wo con Reviewed date:02/21/2025 01:09:15 PM Interpretation: Performing Lab: Notes/Report: Source Facility: [place] [address] [place] [address] Magnetic Resonance Report Signed Patient: ELISE TABOR MR#: [id number] : 1960 Acct:[id number] Age/Sex: 64 / M ADM Date: 02/21/25 Loc: MRI Attending Dr: Donna Zayas M.D. Ordering Physician: Donna Zayas M.D. Date of Service: 02/21/25 Procedure(s): MR head/brain wo con Accession Number(s): [id number] cc: Donna Zayas M.D. [place] [address] Patient Name: ELISE TABOR MRN: [facility]:[id number] date: 1960 Sex: M Assigned Patient Location: MRI Current Patient Location: MRI Accession/Order Number: [id number] Exam Date: 02/21/2025 10:55 Report Date: 02/21/2025 [...] Salazar M.D. 02/21/2025 11:03 AM Dictation Location: [place] [address] Electronically authenticated by: [id number] Y Date: 02/21/2025 11:03 Dictated By: Uyen Salazar M.D. Signed By: 02/21/25 1105 DD/ 1103 TD/TT: Product Introduction Manager:CA echo doppler complete Reviewed date:02/03/2025 09:03:54 PM Interpretation: Performing Lab: Notes/Report: Source Facility: [place] [address] Cardiology Report Signed Patient: ELISE TABOR MR#: [id number] : 1960 Acct:[id number] Age/Sex: 64 / M ADM Date: 02/03/25 Loc: CARD Attending Dr: Benny Diaz M.D. Ordering Physician: Benny Diaz M.D. Date of Service: 02/03/25 Procedure(s): CA echo doppler complete Accession Number(s): [id number] cc: Donna Zayas M.D.; Benny Diaz M.D. Patient Name: ELISE TABOR MR#: [id number] : 1960 Exam Date: 02/03/2025 Ordering Doctor: [...] CARD Signed By: 02/03/252055 DD/ 54 TD/TT: Product Introduction Manager:Calcium, Ionized, Serum Reviewed date:01/23/2025 10:13:17 PM Interpretation: Performing Lab: Notes/Report: [facility] ,Calcium, Ionized, Serum5.34.5-5.6 mg/dL Performed at: [facility]Stra[facility] Associate Professor Of Communication: Candido Villegas PhD, Phone: [phone] [address] [place], [place] [id number] Performing Lab:see note - [facility] LBPROF 14(COMP METB) Reviewed date:01/19/2025 07:18:24 PM Interpretation: Performing Lab: Notes/Report: [facility] ,Mmvszn800338-042 mmol/LPotassium5.03.5-5.1 mmol/OHtdfrpgw44271-628 mmol/LCarbon Zsmfdyh62.721.0-32.0 mmol/LAnion Gap13.0Jlsomhm03044-198 mg/dLBlood Urea Zvsnxkab46.07.0-18.0 mg/dLCreatinine1.070.70-1.30 mg/dLEstimated GFR ( Denisse>60>=60 mL/min/1.73m 2Estimated GFR (Non- Tri>60>=60 mL/min/1.73m 2BUN Creatinine Ratio22.7Ddxbblc8.98.5-10.1 mg/dLBilirubin Total0.70.2-1.0 mg/dL Aspartate Amino Cgxarhgwzzp9707-17 U/LAlanine Okczlshcavtijaiv3707-67 U/L Alkaline Jwezuhfozju8769-584 U/LTotal Protein6.96.4-8.2 g/dLAlbumin Level3.73.4- 5.0 g/dLGlobulin3.2Albumin Globulin Ratio1.2Performing Lab:see noteML - [facility] LBLIPID PROFILE Reviewed date:01/19/2025 07:18:24 PM Interpretation: Performing Lab: Notes/Report: [facility] ,Yhnsfpsdyjvsl84<=150 mg/jQEdzwuqegwot269<=200 mg/dLHDL Muurepwrxhl0494-68 mg/dL > or =60 mg/dl - LOW CARDIOVASCULAR RISK <40 mg/dl - HIGH CARDIOVASCULAR RISK LDL Cholesterol Lixlskfnfe14.0 160-189 mg/dl HIGH 100-129 mg/dl NEAR OR ABOVE OPTIMAL >190 mg/dl VERY HIGH <100 mg/dl OPTIMAL 130-159 mg/dl BORDERLINE HIGH VLDL JFBNYPRZULG67.2Chol HDL Ratio2.6 4.4 - 7.1 AVERAGE RISK 7.1 - 11.0 MODERATE RISK 3.3 - 4.4 LOW RISK >11.0 HIGH RISK Performing Lab:see noteML - [facility] LBTroponin I High Sensitivity Reviewed date:01/08/2025 05:36:32 PM Interpretation: Performing Lab: Notes/Report: [facility] ,Troponin I High Beckkcwapko98.64.0-76.1 pg/mL UNIVERSAL DEFINITION OF MYOCARDIAL INFARCTION. THE UPPER HAS BEEN CONFIRMED THE DECISION THRESHOLD FOR LA CUT-OFF POINTS HAVE BEEN ESTABLISHED BASED ON THE FOURTH PERCENTILE OF cTnI DISTRIBUTION IN A REFERENCE POPULATION, USED IN ISOLATION BUT SHOULD BE INTERPRETED IN CONJUNCTION 99TH PERCENTILE = 76.2 PG/ML NOTE: HIGH-SENSITIVITY TROPONIN ASSAY IS NOT INTENDED TO BE DIAGNOSIS. REFERENCE LIMIT (URL) OF TROPONIN, DEFINED THE 99TH WITH OTHER DIAGNOSTIC AND CLINICAL INFORMATION. Performing Lab:see noteML - [facility] LBURIC ACID SERUM Reviewed date:01/08/2025 05:36:32 PM Interpretation: Performing Lab: Notes/Report: [facility] ,Uric Acid3.43.5-7.2 mg/dLPerforming Lab:see noteML - [facility] LB TSH Reviewed date:01/08/2025 05:36:32 PM Interpretation: Performing Lab: Notes/Report: [facility] ,Thyroid Stimulating Hormone0.6300.358-3.740 uIU/mLPerforming Lab:see noteML - [facility] LBT4 Reviewed date:01/08/2025 05:36:32 PM Interpretation: Performing Lab: Notes/Report: [facility] ,T4 Thyroxine6.604.50-12.10 ug/dLPerforming Lab:see noteML - [facility] LBPSA SCREENING Reviewed date:01/08/2025 05:36:32 PM Interpretation: Performing Lab: Notes/Report: [facility] ,Prostate Specific Antigen Scrn2.20<=4.00 ng/mLPerforming Lab:see noteML - [facility] LBPROF 14(COMP METB) Reviewed date:01/08/2025 05:36:32 PM Interpretation: Performing Lab: Notes/Report: [facility] ,Efgcjc763987-797 mmol/LPotassium4.83.5-5.1 mmol/MGuebslfn45135-031 mmol/LCarbon Cpzgxhn21.321.0-32.0 mmol/LAnion Gap11.6Phdirts47680-108 mg/dLBlood Urea Bqrcbvmt49.07.0-18.0 mg/dLCreatinine1.040.70-1.30 mg/dLEstimated GFR ( Denisse>60>=60 mL/min/1.73m 2Estimated GFR (Non- Tri>60>=60 mL/min/1.73m 2BUN Creatinine Ratio27.2Gdenyyy16.48.5-10.1 mg/dLBilirubin Total0.50.2-1.0 mg/dLAspartate Amino Fjniexrnskq8868-69 U/LAlanine Emdfiiimxjivpotp4893-86 U/L Alkaline Zjwrlbslfnu5156-562 U/LTotal Protein7.46.4-8.2 g/dLAlbumin Level4.03.4- 5.0 g/dLGlobulin3.4Albumin Globulin Ratio1.2Performing Lab:see noteML - [facility] LBLIPID PROFILE Reviewed date:01/08/2025 05:36:32 PM Interpretation: Performing Lab: Notes/Report: [facility] ,Phqrcccxrceyt496<=150 mg/vKYozpcxaiqtp003<=200 mg/dLHDL Pcifnsddppt5138-59 mg/dL > or =60 mg/dl - LOW CARDIOVASCULAR RISK <40 mg/dl - HIGH CARDIOVASCULAR RISK LDL Cholesterol Lseggswkrr472.8 >190 mg/dl VERY HIGH <100 mg/dl OPTIMAL 130-159 mg/dl BORDERLINE HIGH 100-129 mg/dl NEAR OR ABOVE OPTIMAL 160-189 mg/dl HIGH VLDL FPLQEAIESZU50.2Chol HDL Ratio3.1 7.1 - 11.0 MODERATE RISK 3.3 - 4.4 LOW RISK >11.0 HIGH RISK 4.4 - 7.1 AVERAGE RISK Performing Lab:see noteML - [facility] LBGLYCOHEMOGLOBIN A1C Reviewed date:01/08/2025 05:36:32 PM Interpretation: Performing Lab: Notes/Report: [facility] ,Glycohemoglobin A1C5.54.5-6.2 % ADA THERAPEUTIC TARGET < 7.0 ACTION SUGGESTED > 7.0 ADA RECOMMENDED LIMIT 4.0 - 6.0 Estimated Average Oksxedl045Tftiqlgwwp Lab:see noteML - [facility] [facility] FREE T3 Reviewed date:01/08/2025 05:36:32 PM Interpretation: Performing Lab: Notes/Report: [facility] ,Free T32.752.18-3.98 pg/mLPerforming Lab:see noteML - [facility] BLOOD GASES BTY Reviewed date:10/27/2024 03:45:50 PM Interpretation: Performing Lab: Notes/Report: [facility] ,pH ABG7.3417.350-7.450ABG EKN436.335.0-45.0 mmHgRESULTS CALLED [place] 9099GI8 ABG72.980.0-100.0 mmHgHCO3 ABG32.022.0-26.0 mmol/LBase Excess ABG 6.3-2.0-2.0 mmol/LOxygen Saturation ABG94.0Allen TestPOSITIVEPOSITIVELiters per Vxgski1Lxnvhzfy SiteRBPerforming Lab:see noteML - [facility] LBXR Chest PA and Lateral (Routine CXR) * Reviewed date:10/26/2024 03:20:38 PM Interpretation: Performing Lab: Notes/Report: BNP Reviewed date:01/08/2025 05:36:32 PM Interpretation: Performing Lab: Notes/Report: [facility] ,NT Pro B Type Natriuretic Pept68.0<=900.0 pg/mLPerforming Lab:see noteML - [facility] LBCA segmental UE or LE CARLOS Reviewed date:07/05/2025 07:33:48 PM Interpretation: Performing Lab: Notes/Report: Source Facility: [facility]-[address] [place] [address] [place] [address] Cardiology Report Signed Patient: ELISE TABOR MR#: [id number] : 1960 Acct:[id number] Age/Sex: 65 / M ADM Date: 07/05/25 Loc: CARD Attending Dr: LAVINIA RODRIGUEZ Ordering Physician: LAVINIA RODRIGUEZ Date of Service: 07/05/25 Procedure(s): CA segmental UE or LE CARLOS Accession Number(s): [id number] cc: LAVINIA RODRIGUEZ ; Donna Zayas M.D. [facility] Test Date: 2025-07-05 Pat Name: ELISE TABOR Department: Room: - Gender: Male [employer] Press Feeder: Sandra Matt : 1960 Requested By: LAVINIA RODRIGUEZ Order Number: [id number] Reading MD: ABRAHAM CARD M.D. Interpretive Statements Summary of the findings: Right leg: SERVANDO= 1.42; TBI= 1.01. Doppler waveforms demonstrate multiphasic flow at the posterior tibial and dorsalis pedis arteries. Left leg: SERVANDO= 1.12; TBI= 1.03. Doppler waveforms demonstrate multiphasic flow at the posterior tibial and dorsalis pedis arteries. Segmental pressures: Segmental pressures show possible left sided infrapopliteal disease. Calcified right sided vessels indicated by elevated SERVANDO. Pulse volume recordings: PVRs at the high thigh, below knee, and ankle levels show normal waveforms. Conclusion: Right ankle-brachial indices are suggestive of calcified right sided vessels. Left ankle-brachial indices are suggested of normal overall arterial flow at rest. Toe-brachial indices are within normal. Segmental pressures show possible left sided infrapopliteal disease. Pulse volume recordings indicate good overall resting arterial flow. The study shows evidence of PAD with grossly normal overall arterial flow at rest. Electronically Signed On 07-05-2025 19:06:11 EDT by ABRAHAM CARD M.D. Dictated By: ABRAHAM CARD Signed By: 07/05/25190507/05/251905 DD/ 1430 TD/TT: Product Introduction Manager: Reason For Referral Reason Patient is establish ed with [facility] and requested a referral elsewhere Diagnosis 1 Atrial fibrillation, unspecified (I48.91) Diagnosis 2 Coronary arterioscle rosis (I25.10) Referral Organization [facility] [place] Referring Provider First Name Hu Referring Provider Last Name Oni Referring Provider Speciality Pulmonolog y Referred Provider Abraham Card Referred Provider Specialty Cardiology General Notes Nomi Foss 07/14 09:31:19 AM >Referral given to Melita/Danni at [facility] Cardiology. Patient will be contacted by the office and scheduled.Prudence Riley 07/21/2024 11:04:11 AM >I called and spoke with Danni at [facility] to find out if the patient has been scheduled yet? Per Danni the patient is not scheduled as of today, but she will speak with Melita to find out what she is waiting on.Prudence Riley 07/29/2024 01:03:06 PM >Per Melita at [facility] Cardiology the patient is scheduled for [...] Duration) Notes Start Date End Date Status Trelegy Ellipta 200-62.5-25 MCG/ACT 1 puff Inhalation QD; Duration: 90 days Rinse after use; Dispense #3 inhalers 12/10/2024UnknowntraMADol HCl 50 MG 1 tablet as needed Orally tid; Duration: 7 days S76.319A 05/23/2025UnknownMetoprolol Succinate ER 50 MG2 tablets am and 1pm OrallyUnknown Lisinopril 5 MG1 tablet Orally Once a dayUnknownIpratropium-Albuterol 0.5-2.5 (3) MG/3ML3mL Inhalation QID; Duration: daysUnknownMeloxicam 15 MG1 tablet Orally Once a day; Duration: 06/20/2025tivePregabalin 150 mgTAKE 1 CAPSULE BY MOUTH THREE TIMES DAILY; Duration: tiveImitrex 100 MG1 tablet at least 2 hours between doses as needed Orally Twice a day; Duration: 01/07/2025UnknownFarxiga 10 MGOral; Duration: 34 DaysUnknownEliquis 5 [...] MG1 tablet Orally Once a day; Duration: 02/21/2025UnknowntiZANidine HCl 4 MG2 tabs Orally qhs; Duration: 01/07/2025UnknownTheophylline ER 300 MG1 tablet Orally every 12 hrs; Duration: 05/26/2025UnknownSodium Chloride 0.9 %3mL Inhalation BID; Duration: 07/13/2024UnknownRoflumilast 500 MCG1 tablet Orally QD; Duration: 90 daysUnknownProtonix 40 MG1 tablet Orally Once a day; Duration: 30 days01/07/2025UnknownOzempic (0.25 or 0.5 MG/DOSE) 2 MG/3MLInject 0.25ml Subcutaneous once weekly; Duration: 28 daysUnknownNitroglycerin 0.4 MG1 tablet under the tongue and allow to dissolve as needed. Take every 5 minutes up to 3 times if chest pain persists Sublingual Three times a dayUnknown Immunizations Vaccine Route Administration Date Status Comme nts Flu, Flucelvax (4268-8681) ( 43145) 6 mos and older, single-dose syringe Unknown 08/13/2023 Administered VpwqKmradpz14/06/2023dministered Social History Tobacco Use: Social History Observation Description Date Details (start date - stop date) Former Smoker NA - NA Tobacco Control (Standard) Question Answer Notes Tobacco use: Former smoker How long has it been since you last smoked?Greater than 10 yearsAdditional Findings: Tobacco faa-ugscMe-brqh heavy cigarette smoker (40+/day)AUDIT-C (Standard) Question Answer Notes Did you have a drink containing alcohol in the p ast year? No Pbloab2QhjznocklwddvdPetxecpf Problems Problem Type SNOMED Code ICD Code Onset Dates Problem Status W/U Status Risk Notes Problem Anemia (953689910) Anemia, unspecified (D 64.9) ActiveconfirmedProblemObesity (646434422)Obesity, unspecified (E66.9)Active confirmedProblemCentrilobular emphysema (80671669)Centrilobular emphysema (J43.2)ActiveconfirmedPrior treatment: Trelegy 200 > Trelegy 100 > Breztri > Spiriva. 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 (Z79.52)Active confirmedProblemHypertension (25827112)Hypertension (I10)ActiveconfirmedProblem Gastroesophageal reflux disease (040837317)GERD (gastroesophageal reflux disease) (K21.9)ActiveconfirmedProblemObstructive sleep apnea syndrome (25806188)ISABEL (obstructive sleep apnea) (G47.33)ActiveconfirmedProblemMigraine (56876699)Migraine (G43.909)ActiveconfirmedProblemAtrial fibrillation (50197981) Atrial fibrillation, unspecified (I48.91)ActiveconfirmedProblemIgA deficiency (09944478)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)ActiveconfirmedProblemThrombocytopenia (697022174)Thrombocytopenia (D69.6)ActiveconfirmedProblemHistory of atrial fibrillation (048377969)History of atrial fibrillation (Z86.79)Activeconfirmed ProblemCoronary arteriosclerosis (37772797)Coronary arteriosclerosis (I25.10) 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.10)ActiveconfirmedProblemEx-tobacco user (finding) (361098976)History of tobacco abuse (Z87.891)Lgrunsddbhoggpt8txo x 35 years (70 pack-years), quit 2013ProblemGastroesophageal reflux disease (797077937)Gastroesophageal reflux disease (K21.9)ActiveconfirmedProblemHistory of respiratory disease (850310782)History of asbestosis (Z87.09)Activeconfirmed ProblemHamstring tear (S76.319A)ActiveconfirmedProblemArthralgia of the pelvic region and thigh (808971102)Hip pain, acute, right (M25.551)Activeconfirmed ProblemNondependent cannabis abuse (967012445)Marijuana use (F12.90)Active confirmedProblemThoracic aortic aneurysm without rupture (disorder) (27539956) Thoracic aneurysm without mention of rupture (I71.20)ActiveconfirmedProblem Degeneration of lumbar intervertebral disc (52605940)Lumbar degenerative disc disease (M51.369)Activeconfirmed Vital Signs Heart Rate 71 /min 03/23/2025 Dotadclglnh01.0 degrees Mjlunmgpua59/16/2025Respiratory Rate20 /min03/23/2025 Blood pressure egmrytmre41 mm Hg06/14/20257458Xpqlgovp03 %03/23/20255496Amuhsv51 in 06/14/2025lood pressure lpjqniuw577 mm Hg06/14/20258066Lsgyui505.2 lbs1MI 35.47 kg/m206/14/2025 Procedures Procedure Date Ordered Date Performed Result Body Sit e Split Night Sleep Study 10/27/2024 11/10/2024 N/A ABG0N/A Encounters Encounter Location Date Provider Diagnosis [address] [place] [address] 06/14/2025 Andres Hoy Thrombocytopenia D69 .6 [facility] [address] [place] [address] 06/16/2025 Andres Hoy [facility] [place] [address] 06/20/2025[facility] [place] [address]/Doug HoyHypertension I10 and Thrombocytopenia D69.6 [address] [place] [address] 07/05/2025[facility] [place] [address]/[facility] [place] [address]/04/2025[facility] [place] [address]/[facility] [place] [address]Doug Hoy Centrilobular emphysema J43.2BDenver Springs[address] [place] [address]/Doug [facility] [place] [address]/Doug HoyCentrilobular emphysema J43.2 and Encounter for long-term (current) drug use Z79.899[facility] [place] [address]/Doug Hoy Well adult Z00.00[facility] [place] [address]/[facility] [place] [address]/08/2025Doug HoyChronic respiratory failure with hypercapnia J96.12[facility] [place] [address]/Doug HoyPulmonary Medicine [address] [facility] [place] [address]/06/2025[facility] [place] [address]/Doug HoyPulmonary Medicine [address] [facility] [place] [address]/06/2024Nathan Samsa Centrilobular emphysema J43.2Pulmonary Medicine [address] [facility] [place] [address]/02/2025Nathan SamsaCentrilobular emphysema J43.2Pulmonary Medicine [address] [facility] [place] [address]/NatTustin Rehabilitation Hospitalsa Pulmonary Medicine [address] [facility] [place] [address]/ Hu [facility] HospitalsaAcute cough R05.1BDenver Springs[address] [place] [address]/11/2024Doug HoyAbnormal blood chemistry level R79.9 [address] [place] [address] 01/23/2025Doug HoyBMichelle [address] [place] [address]/02/2025Doug HoyWell adult Z00.00 ; Coronary arteriosclerosis I25.10 ; Atrial fibrillation, unspecified I48.91 ; History of atrial fibrillation Z86.79 ; Granulomatous lung disease J84.10 ; Anemia, unspecified D64.9 ; Hypersomnia, unspecified G47.10 and GERD (gastroesophageal reflux disease) K21.9BMichelle [address] [place] [address]/06/2025Doug HoyCentrilobular emphysema J43.2 ; Obesity, unspecified E66.9 ; Coronary arteriosclerosis I25.10 ; History of atrial fibrillation Z86.79 ; Chronic respiratory failure with hypercapnia J96.12 and Migraine G43[address] [address]/01/2025Doug HoyHamstring tear S76.319A and Hypertension O[address] [address] Andres HoyHypertension I10 and Hamstring tear S76.319AB[address] [address]Doug HoyHip pain, acute, right M25.551 and Chronic respiratory failure with hypercapnia J96.12 [address] [place] [address] 05/16/2025Doug HoyHypertension Q42Utqcezrlr Medicine [address] [place] [address]Nathan SamsaCentrilobular emphysema J43.2 ; Chronic respiratory failure with hypoxia J96.11 ; Chronic respiratory failure with hypercapnia J96.12 ; ISABEL (obstructive sleep apnea) G47.33 ; History of tobacco yujwnD58.891 ; History of asbestosis Z87.09 ; long-term (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 of systemic steroids Z79.52 ; [facility] (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 of inhaled steroids Z79.51 and Obesity, unspecified E66.9ulmonary Medicine [address] [place] [address]/01/2024[facility] SamsaCentrilobular emphysema J43.2 ; Chronic respiratory failure with hypoxia J96.11 ; History of tobacco abuse Z87.891 ; History of asbestosis Z87.09 ; Coronary arteriosclerosis I25.10 ; Atrial fibrillation, unspecified I48.91 ; 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 Z79.52 ; long-term (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 of inhaled steroids Z79.51 and Obesity, unspecified E66.9ulmonary Medicine [address] [place] [address]/[facility] SamsaCentrilobular emphysema J43.2 ; Hypersomnia, unspecified G47.10 ; Chronic respiratory failure with hypercapnia J96.12 ; Chronic respiratory failure with hypoxia J96.11 ; Metabolic alkalosis E87.3 ; Hi story of tobacco abuse Z87.891 ; History of asbestosis Z87.09 ; Coronary arteriosclerosis I25.10 ; Atrial fibrillation, unspecified I48.91 ; 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 Z79.52 ; [facility] (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 of inhaled steroids Z79.51 and Obesity, unspecified E66.9ulmonary Medicine [place] [address]/[facility] SamsaCentrilobular emphysema J43.2 ; ISABEL (obstructive sleep apnea) G47.33 ; Chronic respiratory failure with hypercapnia J96.12 ; Chronic respiratory failure with hypoxia J96.11 ; History of tobacco kqaeyA95.891 ; History of asbestosis Z87.09 ; 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 He apparently did not feel [...] the 10mg/day dose. I reviewed labs that [facility] cardiology ordered from 10/01/2024. I note [...] to use a PAP/NIV if indicated. Unfortunately, [facility] has been very difficult to reach [...] Screen patiented for obstructive sleep apnea. His [place] was 13 and STOP-BANG was 8. He [...] agreement to proceed with PAP therapy if indicated.Hpdh-xj-nvlm was performed today regarding need for CPAP or BiPAP if he qualifies. 5Centrilobular emphysema (ICD-10 - J43.2)Prior treatment: Trelegy [...] 01/19/2025OSA (obstructive sleep apnea) (ICD-10 - G47.33) Ftsg-pj-jcey encounter performed with the patient to document continued need for PAP therapy. -Current DME: [employer] -Split night 11/10/2024: AHI 61, Titration 16/12 [...] @ bedtime and with any naps. -This ywqv-mm-bpuo visit comes with my authorization that the [...] respiratory failure with hypoxia (ICD-10 - J96.11) Puzj-wt-vrtj encounter performed with the patient to document [...] (ICD-10 - I10)holding lisinopril and repat bp rgjxbx0905/16/2025Hypertension (ICD-10 - I10) 05/27/2025Hypertension (ICD-10 - I10)Hypotension - thingk over bejtsw8905/27/2025 Hamstring tear (ICD-10 - S76.319A)06/14/2025Hip pain, acute, [...] respiratory failure with hypercapnia (ICD-10 - J96.12) 05/23/2025entrilobular emphysema (ICD-10 - J43.2)05/26/2025entrilobular emphysema (ICD-10 - J43.2)02/11/2025entrilobular emphysema (ICD-10 - J43.2) 02/11/2025Obesity, unspecified (ICD-10 [...] respiratory failure with hypoxia (ICD-10 - J96.11) Fgmj-un-uwyp encounter performed with the patient to document [...] respiratory failure with hypoxia (ICD-10 - J96.11) Hjjh-cs-uqxu encounter performed with the patient to document [...] (ICD-10 - G47.33) Previously evaluated. Continue PAP. Tzlz-pd-xqzq encounter performed with the patient to document [...] @ bedtime and with any naps. -This sece-pv-gqvk visit comes with my authorization that the [...] situation, but he requested a referral to [facility] Cardiology. 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 I personally walked over to [facility] Cardiology and asked them how theyhave follow-up set up. They stated that they make an attempt to keep the patient with the same physician, but often alternates every other visit with a nurse practitioner. I relayed this information to the patient and he voiced he would like to have a referral placed to [facility] Cardiology. 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 10/27/2024History of asbestosis (ICD-10 - Z87.09) Exposure to asbestos from brake pads. No evidence of asbestos on prior CT chest. 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 07/13/2024 term (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 of inhaled steroids (ICD-10 - Z79.51) Patient was counseled to rinse & gargle with water after inhaled corticosteroid use. 10/27/2024oronary arteriosclerosis (ICD-10 - I25.10) Patient changed to [facility] cardiology and voiced he is very happy with the switch. 01/19/2025 term (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 of inhaled steroids (ICD-10 - Z79.51) Patient was counseled to rinse & gargle with water after inhaled corticosteroid use. 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 10/27/2024 term (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 of inhaled steroids (ICD-10 - Z79.51) Patient was counseled to rinse & gargle with water after inhaled corticosteroid use. 10/27/2024Obesity, unspecified (ICD-10 - E66.9) Technically obese, but he has lost 20 pounds unintentionally over the past 2 months d/t decreased appetite. 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 01/19/2025Other Screen patiented for obstructive sleep apnea. His [place] was 13 and STOP-BANG was 8. He [...] agreement to proceed with PAP therapy if indicated.Csvs-fz-dzvv was performed today regarding need for CPAP or BiPAP if he qualifies. Patient changed to [facility] cardiology and voiced he is very happy with the switch. HCO3- 39.5, Suspected chronic hypercapnic respiratory failure, which I was correct based on ABG drawn today. 03/23/2025Other Screen patiented for obstructive sleep apnea. His [place] was 13 and STOP-BANG was 8. He [...] agreement to proceed with PAP therapy if indicated.Geub-my-zgbx was performed today regarding need for CPAP or BiPAP if he qualifies. Patient changed to [facility] cardiology and voiced he is [...] Coverage Start Date Coverage End Date MARGARITO SOLIZ [address] [address] [place] [address] [id number] Aliya Taborelf - patient is the insured Medications Administered Medication Instructions Date of Administration Dosage Notes Triamcinolone 40 mg/ml 580 mg Medical (General) History Medical History History [...] replacementleft hip replacement shoulder replacement-Rightcoronary artery bypass atilr2552Kndhytblhveinff History Reason Date(Month/Year) SOB-TBH ER 05/02/2023
[2025-07-11 10:06] VITALS: BP 122/75; PULSE 78; TEMP 36.2; O2SAT 96
[2025-07-11] MEDS: BUPIVACAINE HCL 0.25% PF 25 MG/10 ML VIAL INJ (10:40)
[2025-07-11] MEDS: IOHEXOL 240 MG/ML - 10 ML VIAL 24 MG INJ (10:40)
[2025-07-11] MEDS: METHYLPREDNISOLONE ACETATE 80 MG/ML VIAL INJ (10:40)
[2025-07-11] MEDS: 0.9 % SODIUM CHLORIDE 10 ML SYRINGE - SALINE FLUSH INJ (10:40)
[2025-07-11] MEDS: LIDOCAINE HCL 2% 400 MG/20 ML MDV 3 ML INJ (10:40)
--- NOTE | 2025-07-11 10:40 | W.PM.PROCNOT ---
Date of procedure: 07/11/25 Pre-op diagnosis: Pain due to lumbar stenosis with neurogenic claudication Post-op diagnosis: same as pre-op Procedure: Procedure: Bilateral L5-S1 transforaminal epidural steroid injection Medications: Bupivacaine 0.25% 2cc, lidocaine 2% 1cc, depomedrol 80mg The patient was seen and examined in the preoperative holding area.? Informed consent was obtained and placed on the chart.? Patient was brought to the medical procedure unit and placed in the prone position where a timeout was completed verifying the correct patient, procedure site, position, and planned special equipment using sterile aseptic technique.? Under direct fluoroscopic visualization a 25-gauge Quincke tipped spinal needle was advanced at level left L5-S1 to the designated neural foramen where contrast dye was injected to show adequate spread.? There was no evidence of vascular or adverse uptake.? Epidural spread was appreciated.? The above-mentioned injectate was then placed in a 1.5 mL aliquot preceded by negative aspiration.? The needle was removed. The same procedure, at the same level, was completed on the opposite side. ? Patient was taken to the postprocedural recovery area and monitored for an appropriate length of time before found suitable for discharge in the accompaniment of a responsible adult. Anesthesia: Local Surgeon: Radha Ramirez Pathology: none sent Condition: stable Disposition: no change
[2025-07-11 10:42] VITALS: BP 111/71; BP 119/76; PULSE 18; O2SAT 94; O2SAT 98
== END 2025-07-11 11:14 | disposition home or self-care (01) ==
PROVIDERS: PCP Family Medicine; Visit Provider Anesthesiology
DX: M48.062 Spinal stenosis, lumbar region with neurogenic claudication (principal); M54.50 Low back pain, unspecified
CPT/HCPCS: 64483; J0665; J1010; Q9966

== ENCOUNTER 2025-07-18 13:41 | Outpatient (OUT) | payer MEDICARE, SELFPAY ==
--- OUTSIDE RECORDS SUMMARY | 2012-03-06 04:34 | XMS_ITS | Continuity of Care Document ---
Author Organization [facility] Address [address] [place] [address] [place] [address] Phone Care Team Providers Care Unit Coordinator Name Role Phone JUAN FINK MD Unavailable [...] on Encounter [facility], [address] [place] [address], [address] [place] [address], tel:[phone] [facility] No Information 2 DANAE MARTINEZ. [address] [place] [address], [address] [place] [address], . tel:[phone] [facility], [address] [place] [address], [address] [place] [address], tel:[phone] [facility] No Information 2 DANAE MARTINEZ. [address] [place] [address], [address] [place] [address], . tel:[phone] Offic/outpt E&m Estab Minor 10 [facility], [address] [place] [address], [address] [place] [address], tel:[phone] [facility] No Information 1 DANAE MARTINEZ. [address] [place] [address], [address] [place] [address], . tel:[phone] [facility], [address] [place] [address], [address] [place] [address], tel:[phone] [facility] No Information 1 DANAE MARTINEZ. [address] [place] [address], [address] [place] [address], . tel:[phone] [facility], [address] [place] [address], [address] [place] [address], tel:[phone] [facility] No Information Oct-0 3-201 1 DANAE LEALPELONLAKEISHA. [address] [place] [address], [address] [place] [address], . tel:[phone] [facility], [address] [place] [address], [address] [place] [address], tel:[phone] [facility] No Information Sep-2 2-201 1 BERYL ABBOTT. [address] [place] [address], [address] [place] [address], . tel:[phone] Referring Provider: Nigel Carvajal, [address] [place] [address], [facility]. tel:[phone] [facility], [address] [place] [address], [address] [place] [address], tel:[phone] [facility] No Information Sep-2 1-201 1 PANDA IBRAHIM. [address] [place] [address], [address] [place] [address], . tel:[phone] Referring Provider: Nigel Carvajal, [address] [place] [address], [facility]. tel:[phone] [facility], [address] [place] [address], [address] [place] [address], tel:[phone] [facility] No Information Sep-0 7-201 1 Samreen Ochoa. [address] [place] [address], [address] [place] [address], . tel:[phone] Referring Provider: Nigel Carvajal, [address] [place] [address], [facility]. tel:[phone] Offic/outpt E&m Estab Low-mod [facility], [address] [place] [address], [address] [place] [address], tel:[phone] [facility] No Information Oct-0 8-200 9 BERYL ABBOTT. [address] [place] [address], [address] [place] [address], . tel:[phone] Offic/outpt E&m Estab Low-mod [facility], [address] [place] [address], [address] [place] [address], tel:[phone] [facility] No Information Nov-2 6-200 7 KIBILOSÁLVARO MILENA. [address] [place] [address], [address] [place] [address], . tel:[phone] [facility], [address] [place] [address], [address] [place] [address], tel:[phone] [facility] No Information 5-200 7 KIBILOSKI MILENA. [address] [place] [address], [address] [place] [address], [place]. tel:[phone] [facility], [address] [place] [address], [address] [place] [address], tel:[phone] [facility] No Information Dec-0 4-200 6 KIBILOSÁLVARO MILENA. [address] [place] [address], [address] [place] [address], . tel:[phone] [facility], [address] [place] [address], [address] [place] [address], tel:[phone] [facility] In Patient No Information 7-200 6 KIBILOSÁLVARO MILENA. [address] [place] [address], [address] [place] [address], . tel:[phone] [facility], [address] [place] [address], [address] [place] [address], tel:[phone] [facility] No Information January-2 5-200 6 KIBILOSÁLVARO MILENA. [address] [place] [address], [address] [place] [address], [place]. tel:[phone] Referring Provider: Jaquan Dowell, [address] [place], [facility]. tel:[phone] [facility], [address] [place] [address], [address] [place] [address], tel:[phone] [facility] No Information Oct-0 2-200 3 KIBILOSKI MILENA. [address] [place] [address], [address] [place] [address], [place]. tel:[phone] [facility], [address] [place] [address], [place], [place], [id number], [place] tel:[phone] [facility] No Information No Information Family History Family Member Type Diagnosis Age At Onset No Information Payers Payer name Insurance type Covered alliance party ID Saleem ya(s) [facility] [id number] Medicare Part B [id number] Social History Type Description Quantity Date Captured Comments Sex Male Smoking Status No Information Chief Complaint And Reason For Visit No Information Reason For Referral Reason For Referral No Information Plan Of Treatment Date Type Action Status Future Order: Lab Order Cervical W/o Contrast ([id number]), Appointment on: , Sent on: Sent Future Order: Lab Order L Spine 3VW w/spot ([id number]), Sent on: Sent Future Order: Lab Order Thoracic Spine 2VW ([id number]), Sent on: Sent Future Order: Lab Order C Spine 2VW ([id number]), Sent on: Sent Future Order: Lab Order Lumbar W /o Contrast ([id number]), Appointment on: , Sent on: Sent Future Order: Lab Order Thoracic W/o Contrast ([id number]), Appointment on: , Sent on: Sent Future Order: Lab Order Hip 2 VW Left ([id number]), Sent on: Sent History Of Present Illness Encounter Date Complaint History Of Prese nt Illness No Information Functional Status Date Functional Assessmen t No Information Instructions Date Instruction Additional Infor mation No Information Assessments Type Assessment Date No Information Patient Care Teams Name Effective Dates (start - stop) Status Members No Information
--- OUTSIDE RECORDS SUMMARY | 2025-07-13 08:00 | XMS_ITS | Encounter Summary ---
Author Organization [facility] Address [address], [address] [place] [address] Care Team Providers Care Director Of Enterprise Applications Name Role Phone Mario Zayas MD Primary Care Provider [phone] Reason for Visit * ReasonCommentsFollow-upPatient presents for a follow up for COPD. Patient is currently on 5L O2 at home. DME. [facility]. Patient states his breathing has worsened since his last visit. Patient is using Trelegy , Prednisone and Azithromycin daily. 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; snf (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 of inhaled steroids Social History Tobacco UseTypesPacks/DayYears UsedDateSmoking Tobacco: [id number] - 2012Smokeless Tobacco: Never Tobacco Cessation:Counseling Given: Not Answered Alcohol UseStandard Drinks/WeekCommentsNot Currently0 (1 standard drink = 0.6 oz pure alcohol)Sex and Gender InformationValueDate RecordedSex Assigned at Male07/13/2025 7:55 AM ESTLegal EajDgsm92/07/2025 3:18 PM EDTGender IdentityNot on fileSexual OrientationNot on filedocumented as of this encounter Last Filed Vital Signs Vital SignReadingTime TakenCommentsBlood Gizkqzoy691/7407/13/2025 8:06 AM EST Yjxzo522607/13/2025 8:06 AM UXHEjlrxoxohxp30.1 ??C (97 ??F)07/13/2025 8:06 AM EST Respiratory Phkh1328 8:06 AM ESTOxygen Xnsuavraym25%07/13/2025 8:06 AM EST5L K2Oqnuuqv Oxygen Concentration--Saldqi525.4 kg (247 lb 12.8 oz)07/13/2025 8:06 AM CCFJrxysx513.7 cm (5' 8 )07/13/2025 8:06 AM ESTBody [...] Nikunj Causey 1960 (65 y.o.) [address] [facility] [address] Nikunj Causey was seen today in the [...] 1 tablet by mouth 2 times daily csvvyydvebc-qmzemoaxe-naxuph (TRELEGY ELLIPTA) 200-62.5-25 MCG/ACT AEPB inhaler; Inhale 1 puff intothe lungs daily sodium chloride nebulizer 0.9 % solution; Take 3 mLs by nebulization 2 times daily ISABEL (obstructive sleep apnea) A gyrk-wj-fnst encounter was performed with the patient today [...] VAuto -Current mode & pressures: BiPAP @ 16/40fyM0S -Residual AHI: 0.5 -Median air leak: 6.1L/min [...] applicable). Chronic respiratory failure with hypoxia A gopw-vu-yusr encounter was performed with the patient today [...] pads. No CT chest evidence of asbestos. 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 superintendent terminal (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 of inhaled steroids The patient [...] Causey was previously established with me at [facility] and is now establishing with me at [facility]. He was last seen by me on 03/23/2025. His records from [facility] were reviewed. He has end-stage COPD, [...] morning, at noon, and at bedtime. Saw [place] 450 MG CAPS Take 1 capsule by [...] mouth 2 times daily 180 tablet 4 kuhosgdzboa-tzomauucg-bczmhk (TRELEGY ELLIPTA) 200-62.5-25 MCG/ACT AEPB inhaler Inhale [...] Plan of Treatment DateTypeDepartmentCare Team (Latest Contact Info)Vcpwlaokvon03/03/2026 10:00 AM ESTOffice Visit [facility] [address] [place] [address] 6 [place] [address] Hu Bunn DO [address] [place] [phone] [place] F/U for COPD, respiratory failure.documented [...] contact with and (suspected) exposure to asbestos snf (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 of systemic steroids superintendent terminal (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 of inhaled steroids documented in this encounter Additional Health Concerns AssessmentNoted TimeA fall risk assessment has been completed for the patient 07/13/2025 8:09 AM ESTdocumented as of this encounter Care Teams Team MemberRelationshipSpecialtyStart DateEnd Mario Zayas MD [address] [place] [phone] PCP - GeneralFamily Wtkiffkx50/7/25documented as of this encounter
--- OUTSIDE RECORDS SUMMARY | 2025-07-18 13:46 | XMS_ITS | Clinical Summary ---
Author Organization [facility] Address [address] [place] [address] Care Team Providers Care Mandrel Press Hand Name Role Phone Pauly Santacruz PIANO ACCOMPANIST Unavailable Mario Zayas MD Primary Care Provider [phone] Allergies Active AllergyReactionsCriticalityNoted DateCommentsGluten MealGI intoleranceLow 05/08/2022Isosorbide ZyrbujfNrgpkihqQxm56/14/2022 Medications MedicationSigDispense QuantityRefillsLast FilledStart DateEnd DateStatus albuterol [...] Inhale 3 mL5Active Active Problems ProblemNoted DateDiagnosed EktkAvmlptefpf67/14/2024DD (degenerative disc disease), sntahd4901/20/2024 Overview (01/20/2024): The patient is a 62 [...] has had no benefit with gabapentin increase. Jyoostzryfb33/14/2024oronary artery disease involving coronary bypass graft of [place] heart without angina zoioupyd82/12/2022History of maze procedure 05/20/2022Hx of CABG05/20/2022aroxysmal atrial fofmlzdiggsh86/12/2022Thoracic aortic aneurysm without tyiqypg0905/20/2022 Resolved Problems ProblemNoted DateDiagnosed DateResolved DateCentrilobular vmwxiayxe86/18/2025 2025 Overview (2025): Noted by [facility] last documented on 20241027 Hypertensive heart disease with heart kkevriw75 Overview (2025): Noted by [facility] last documented on 20241001 Chronic ofkuxorouwnrrwl77hronic systolic heart failure Erectile xbzvjbjzsov15ardiomyopathy, rdgmlpdf74lass 2 severe obesity due to excess calories with serious comorbidity and body mass index (BMI) of35.0 to 35.9 in adult08/16/2024 2025Pain in wristPure rnyiluqhbpajbwvbnytz82/09/2024 03/25/20251114Ogoqrdkyb95Mixed vtttkaqyssftrb75 Primary rskejpezfsiw06Peripheral ixrlzknicrdfnf88/20/2023 06/27/2023eliac pnghcea27ervicalgia Headache in back of headhronic obstructive lung disease Sinus vjouevnquxg02 Encounters DateTypeDepartmentCare SentAgmxjeqmbbi02/29/2025bstract [facility] [address] [place] [address] Yuri Rowe DPM 07/06/2025bstract [facility] [address] [place] [address] Yuri Rowe DPM 06/23/2025 9:30 AM EDTOffice Visit [facility] [address] [place] [address] Yuri Rowe DPM PVD (peripheral vascular disease); Other polyneuropathy; Pain due to onychomycosis of toenails of both feet; Paronychia, toe, left06/23/2025amboo flowsheet [facility] [address] [place] [address] Yuri Rowe DPM 06/23/2025Travelfrom Last 3 Months Immunizations ImmunizationAdministration DatesNext DueInfluenza, High Dose Seasonal, Preservative Free05/23/2021Influenza, injectable, MDCK, preservative free, cimvemohhzqz50/06/2023fizer Purple Cap SARS-CoV-2 Ekxnjsmxajk94/17/2021, 09/20/2020Tdap110/14/2022 Family History Medical HistoryRelationNameCommentsHeart diseaseFatherCancerMotherHeart disease MotherHypertensionMotherDiabetesSiblingRelationNameStatusCommentsFatherMother SiblingAlive Social History Tobacco UseTypesPacks/DayYears UsedDateSmoking Tobacco: RcdtlcEypaqqzymt653 09/08/1974 - 09/08/2009Smokeless Tobacco: Never Tobacco Cessation:Counseling Given: Yes Alcohol UseStandard Drinks/WeekCommentsNever0 (1 standard drink = 0.6 oz pure alcohol)ocassionallySex and Gender InformationValueDate RecordedSex Assigned at IdcycRovf56/16/2023 9:38 AM EDTLegal RxgHapo5202/06/2023 9:13 AM EDTGender RdgifmoqEmtm55/16/2023 9:38 AM EDTSexual OrientationNot on file Last Filed Vital Signs Vital SignReadingTime TakenCommentsBlood Manmsebp841/8204 10:42 AM EDT Edeqe116012/27/2024 10:42 AM EDTTemperature--Respiratory Zzgz6423 9:50 AM EDTOxygen Dhvqcfkhua87%12/27/2024 10:42 AM EDTInhaled Oxygen Concentration-- Kxxcco641 kg (250 lb)06/23/2025 9:50 AM OWZStgxcs191.8 cm (5' 10 )06/23/2025 9:50 AM EDTBody Mass Index35.8706/23/2025 9:50 AM EDT Plan of Treatment DateTypeDepartmentCare Team (Latest Contact Info)Aujddmtpise39/13/2025 4:40 PM ESTOffice Visit [facility] [address] [place] [address] Yuri Rowe DPEdison [address] [address] 09/15/2025 10:50 AM ESTProcedure Visit [facility] [address] [facility] [address] [place] [address] Yuri Rowe DPM [address] [address] 10/17/2025 10:15 AM ESTOffice Visit [facility] [address] [address] Tree Carmona, DO [address] [place] [address] Insurance Care Teams Team MemberRelationshipSpecialtyStart DateEnd Date Mario Zayas MD [address] [place] [phone] PCP - GeneralFamily Hccvnobb82/16/25 Pauly Santacruz NP [address] [place] [address] Referring PhysicianFamily [facility]03/15/24
--- OUTSIDE RECORDS SUMMARY | 2025-07-18 13:46 | XMS_ITS | Clinical Summary ---
Author Organization [facility] Address [address], [address] [place] [address] Care Team Providers Care Floor Director Name Role Phone Mario Zayas MD Primary Care Provider [phone] Allergies No known active allergies Medications MedicationSigDispense QuantityRefillsLast FilledStart DateEnd DateStatus ASPIRIN 81 PO Take 1 tablet by mouth daily5Active acetaminophen (TYLENOL) 500 MG CAPS capsule Take 1 capsule by mouth every 6 hours as neededActive albuterol (PROVENTIL) (5 MG/ML) 0.5% nebulizer solution Take 0.5 mLs by nebulization every 6 hours as needed for Shortness of Breath or WheezingActive ELIQUIS 5 MG TABS tablet Take 1 tablet by mouth 2 times daily5Active vitamin C (ASCORBIC ACID) 500 MG tablet Take 1 tablet by mouth dailyActive OXYGEN Inhale into the lungs continuousActive atorvastatin (LIPITOR) 80 MG tablet Take 1 tablet by mouth daily5Active Cholecalciferol 50 MCG (1999 UT) TABS Take 1 tablet by mouth dailyActive dapagliflozin (FARXIGA) 10 MG tablet Take 1 tablet by mouth every /05/2025Active Ferrous Sulfate 90 (18 Fe) MG TABS Take 1 tablet by mouth dailyActive guaiFENesin (MUCINEX) 600 MG extended release tablet Take 1 tablet by mouth 2 times dailyActive lisinopril (PRINIVIL;ZESTRIL) 5 MG tablet Take 1 tablet by mouth daily5Active [place] 500 MG CAPS Take 1 capsule by mouth dailyActive meloxicam (MOBIC) 15 MG tablet Take 1 tablet by mouth daily5Active metoprolol succinate (TOPROL XL) 50 MG extended release tablet Take 1 tablet by mouth daily02/09/2025tive nitroGLYCERIN (NITROSTAT) 0.[address] 1 tablet under the tongue every 5 minutes as qpbpbe874Active Potassium Gluconate 595 (99 K) MG TABS Take 1 tablet by mouth dailyActive pregabalin (LYRICA) 150 MG capsule Take 1 capsule by mouth in the morning, at noon, and at bedtime.12/20/2024tive [place] 450 MG CAPS Take 1 capsule by mouth dailyActive topiramate (TOPAMAX) 50 MG tablet Take 1 tablet by mouth dailyActive zinc 50 MG TABS tablet Take 1 tablet by mouth dailyActive pantoprazole (PROTONIX) 20 MG tablet Take 1 tablet by mouth dailyActive albuterol sulfate HFA (PROVENTIL;VENTOLIN;PROAIR) 108 (90 Base) MCG/ACT inhaler Indications:Centrilobular emphysema (HCC)Inhale 1 puff into the lungs every 4 hours as needed for Shortness of Breath 54 g tive azithromycin (ZITHROMAX) 250 MG tablet Indications:Centrilobular emphysema (HCC)Take 1 tablet by mouth daily 90 tablet tive ipratropium 0.5 mg-albuterol 2.5 mg (DUONEB) 0.5-2.5 (3) MG/3ML SOLN nebulizer solution Indications:Centrilobular emphysema (HCC)Take 3 mLs by nebulization every 4 hours 1620 mL tive predniSONE (DELTASONE) 10 MG tablet Indications:Centrilobular emphysema (HCC)Take 1 tablet by mouth daily 90 tablet 5Active Roflumilast (DALIRESP) 500 MCG tablet Indications:Centrilobular emphysema (HCC)Take 1 tablet by mouth daily 90 tablet tive theophylline (THEODUR) 300 MG extended release tablet Indications:Centrilobular emphysema (HCC)Take 1 tablet by mouth 2 times daily 180 tablet 5Active pxferrkwpri-ynfbnjwzq-ahayze (TRELEGY ELLIPTA) 200-62.5-25 MCG/ACT AEPB inhaler Indications:Centrilobular emphysema (HCC)Inhale 1 puff into the lungs daily 180 each 5Active sodium chloride nebulizer 0.9 % solution Indications:Centrilobular emphysema (HCC)Take 3 mLs by nebulization 2 times daily 540 mL 5Active albuterol sulfate HFA (PROVENTIL;VENTOLIN;PROAIR) 108 (90 Base) MCG/ACT inhaler Inhale 1 puff into the lungs every 4 hours as adaiqm5307/13/2025Discontinued (REORDER) azithromycin (ZITHROMAX) 250 MG tablet Take 1 tablet by mouth dailyDiscontinued(REORDER) TRELEGY ELLIPTA 200-62.5-25 MCG/ACT AEPB inhaler Inhale 1 puff into the lungs daily07/13/2025Discontinued(REORDER) ipratropium 0.5 mg-albuterol 2.5 mg (DUONEB) 0.5-2.5 (3) MG/3ML SOLN nebulizer solution Take 3 mLs by nebulization every 6 hoursDiscontinued (REORDER) predniSONE (DELTASONE) 10 MG tablet Take 1 tablet by mouth dailyDiscontinued(REORDER) Roflumilast (DALIRESP) 500 MCG tablet Take 1 tablet by mouth daily07/13/2025Discontinued(REORDER) sodium chloride nebulizer 0.9 % solution Inhale 3 mLs into the lungs as nwenrm54Discontinued(REORDER) theophylline (THEODUR) 300 MG extended release tablet Take 1 tablet by mouth in the morning and 1 tablet in the evening.07/13/2025 Discontinued(REORDER) Active Problems ProblemNoted DateDiagnosed DateLong term (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 of inhaled steroids 07/13/2025 Assessment & Plan (07/13/2025 9:31 AM EST): The patient was counseled to rinse and gargle after use of his steroid- containing inhaler to reducethe risk of oral candidiasis and other potential adverse effects. 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 Centrilobular emphysema Assessment & Plan (07/13/2025 10:56 AM EST): Patient has end-stage O2- and prednisone-dependent COPD. [...] 1 tablet by mouth 2 times daily upypyhipkvp-nxwmdpjxa-uvobco (TRELEGY ELLIPTA) 200-62.5-25 MCG/ACT AEPB inhaler; Inhale 1 puff intothe lungs daily sodium chloride nebulizer 0.9 % solution; Take 3 mLs by nebulization 2 times daily ISABEL (obstructive sleep apnea) Assessment & Plan (07/13/2025 10:56 AM EST): A pynt-kq-tjjb encounter was performed with the patient today in order to document continued need for positive airway pressure (PAP). -Current DME: [employer] -Split night 11/10/2024: AHI 61, Titration 16/12 with 5L/min O2 bleed-in -Compliance was reviewed from 06/13/2025 to 07/12/2025 -Total days used: 30 (100%) days -Total days of use >4 hours: 30/30 (100%) days -Current model: AirCurve 10 VAuto -Current mode & pressures: BiPAP @ 16/22hlH4V -Residual AHI: 0.5 -Median air leak: 6.1L/min [...] (if applicable). Chronic respiratory failure with hypoxia Assessment & Plan (07/13/2025 10:56 AM EST): A ihhr-fu-hqkv encounter was performed with the patient today [...] associated supplies. Chronic respiratory failure with hypercapnia Assessment & Plan (07/13/2025 11:53 AM EST): ABG 10/27/2024: pH: 7.34, pCO2: 59.3, pO2: 72.9, SaO2: 94%, FiO2: 3L/min Continue BiPAP which will assist in an NIV capacity. Goal SpO2 88-92% to avoid hyperoxic-induced hypercapnia. History of tobacco abuse Assessment & Plan (07/13/2025 9:31 AM EST): The patient was evaluated for low-dose CT [...] about ordering LDCT. 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 No CT chest evidence of asbestos. 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; jail (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 of inhaled steroidsfrom Last 3 Months Family History Medical HistoryRelationNameCommentsHeart DiseaseFatherBreast CancerMother HypertensionMotherHypertensionSisterRelationNameStatusCommentsFatherMotherSister Social History Tobacco UseTypesPacks/DayYears UsedDateSmoking Tobacco: HqkpvtThyiasbkdk0716125 - 2012Smokeless Tobacco: Never Tobacco Cessation:Counseling Given: Not Answered Alcohol UseStandard Drinks/WeekCommentsNot Currently0 (1 standard drink = 0.6 oz pure alcohol)Sex and Gender InformationValueDate RecordedSex Assigned at Male07/13/2025 7:55 AM ESTLegal TexHnad25/07/2025 3:18 PM EDTGender IdentityNot on fileSexual OrientationNot on file Last Filed Vital Signs Vital SignReadingTime TakenCommentsBlood Vweyhxqn883/7407/13/2025 8:06 AM EST Lpwxg906007/13/2025 8:06 AM KHSWpganulxcjx21.1 ??C (97 ??F)07/13/2025 8:06 AM EST Respiratory Hxvp5022 8:06 AM ESTOxygen Sqjpywqapw74%07/13/2025 8:06 AM EST5L G3Rupdunw Oxygen Concentration--Gxibqt144.4 kg (247 lb 12.8 oz)07/13/2025 8:06 AM AJBYumdgw264.7 cm (5' 8 )07/13/2025 8:06 AM ESTBody Mass Index37.68 07/13/2025 8:06 AM EST Plan of Treatment DateTypeDepartmentCare Team (Latest Contact Info)Cbvcsoyggdy55/03/2026 10:00 AM ESTOffice Visit [facility] [address] [place] [address] [address] [place] [address] [place] [address] [place] [address] [address] [place] [address] 3 MO F/U for COPD, respiratory failure.Health MaintenanceDue DateLast Done EqxfvxtlXjzpal49/18/1970Depression Yobway3803/25/1972HIV fgkgxa1403/25/1975Hepatitis C nuucnp4003/25/1978Pneumococcal 50+ years Vaccine (1 of 2 - PCV)1979 Diabetes liggkh1003/25/19958493Aybjuqecvdd39/18/2005Colorectal Cancer Eszbck5903/25/2005 FIT/FOBT: Average risk2005Fecal-DNA (Cologuard): Average risk2005 Sigmoidoscopy/CT kntqakrqhtgr60/18/2005Shingles vaccine (1 of 2)2010 Respiratory Syncytial Virus (RSV) or age 60 yrs+ (1 - Risk 60-74 years 1-dose series)2020Lung Cancer Screening &/or Gzapoicmau00/19/2023 12/25/2021AA psufgt9003/25/2025Flu vaccine (#1)5110/14/2022, 05/23/2021 COVID-19 Vaccine (3 - 2024- season)/, 09/20/2020 DTaP/Tdap/Td vaccine (2 - Td or Tdap)Hepatitis A vaccineAged OutNo longer eligible based on patient's age to complete this topicHepatitis B vaccineAged OutNo longer eligible based on patient's age to complete this topic Hib vaccineAged OutNo longer eligible based on patient's age to complete this topicMeningococcal (ACWY) vaccineAged OutNo longer eligible based on patient's age to complete this topicMeningococcal B vaccineAged OutNo longer eligible based on patient's age to complete this topicPolio vaccineAged OutNo longer eligible based on patient's age to complete this topic Insurance Advance Directives NameRelationshipHealthcare Agent RelationshipCommunicationKrista PadillaPrimary Decision Maker* Care Teams Team MemberRelationshipSpecialtyStart DateEnd Date Mario Zayas MD [address] [place] [address] PCP - [facility]06/14/25
--- OUTSIDE RECORDS SUMMARY | 2025-07-18 13:46 | XMS_ITS | Encounter Summary ---
Author Organization [facility] Address [address] [place] [address] Care Team Providers Care Munitions Handler Name Role Phone Pauly Santacruz EDITOR Unavailable Mario Zayas MD Primary Care Provider [phone] Encounter Details DateTypeDepartmentCare Team (Latest Contact Info)Gatrbhsstsl87/29/2025bstract [facility] [address] [place] [address] Yuri Rowe DPM [address] [facility] [address] [place] [address] Social History Tobacco UseTypesPacks/DayYears UsedDateSmoking Tobacco: VkllocJiotaaianz571 09/08/1974 - 09/08/2009Smokeless Tobacco: NeverAlcohol UseStandard Drinks/Week CommentsNever0 (1 standard drink = 0.6 oz pure alcohol)ocassionallySex and Gender InformationValueDate RecordedSex Assigned at SxvzfLffk56/16/2023 9:38 AM EDTLegal QdvZqkg6002/06/2023 9:13 AM EDTGender YisvyavcNwnd81/16/2023 9:38 AM EDT Sexual OrientationNot on filedocumented as of this encounter Plan of Treatment DateTypeDepartmentCare Team (Latest Contact Info)Uzaywlbygus82/13/2025 4:40 PM ESTOffice Visit [facility] [address] [place] [address] uYri Rowe DPM [address] [facility] 5 [place] [address] 09/15/2025 10:50 AM ESTProcedure Visit [facility] [address] [facility] [address] [place] [address] Yuri Rowe, DPM [address] [facility] 5 [place] [address] 10/17/2025 10:15 AM ESTOffice Visit [facility] [address] [place] [address] Tree Carmona, [address] [place] [address] documented as of this encounter Visit Diagnoses Not on filedocumented in this encounter Care Teams Team MemberRelationshipSpecialtyStart DateEnd Mario Zayas MD [address] [facility] [place] [phone] PCP - GeneralFamily Icmprdod00/16/25 Pauly Santacruz NP [address] [place] [address] Referring PhysicianFamily Medicine03/15/24documented as of this encounter
--- OUTSIDE RECORDS SUMMARY | 2025-07-18 13:46 | XMS_ITS | Encounter Summary ---
Author Organization [facility] Address [address] [place] [address] Care Team Providers Care Desilverizer Name Role Phone Pauly Santacruz GEAR SHAPER SET UP OPERATOR Unavailable Mario Zayas MD Primary Care Provider [phone] Encounter Details DateTypeDepartmentCare Team (Latest Contact Info)Jldikoqnkoy78/29/2025bstract [facility] [address] [place] [address] Yuri Rowe DPM [address] [facility] [address] [place] [address] Social History Tobacco UseTypesPacks/DayYears UsedDateSmoking Tobacco: KyjwlsVupllkapwg217 09/08/1974 - 09/08/2009Smokeless Tobacco: NeverAlcohol UseStandard Drinks/Week CommentsNever0 (1 standard drink = 0.6 oz pure alcohol)ocassionallySex and Gender InformationValueDate RecordedSex Assigned at KfrbbNzlg39/16/2023 9:38 AM EDTLegal GgpGuws0802/06/2023 9:13 AM EDTGender JzxkfwkeZher46/16/2023 9:38 AM EDT Sexual OrientationNot on filedocumented as of this encounter Plan of Treatment DateTypeDepartmentCare Team (Latest Contact Info)Cfwwiogtiio99/13/2025 4:40 PM ESTOffice Visit [facility] [address] [place] [address] Yuri Rowe DPM [address] [facility] [address] [place] [address] 09/15/2025 10:50 AM ESTProcedure Visit [facility] [address] [facility] [address] [place] [address] Yuri Rwoe, DPM [address] [facility] [address] [place] [address] 10/17/2025 10:15 AM ESTOffice Visit [facility] [address] [place] [address] Tree Carmona, [address] [place] [address] documented as of this encounter Visit Diagnoses Not on filedocumented in this encounter Care Teams Team MemberRelationshipSpecialtyStart DateEnd Mario Zayas MD [address] [place] [facility] [place] [phone] PCP - GeneralFamily Mewmghdw16/16/25 Pauly Santacruz NP [address] [place] [address] Referring PhysicianFamily Medicine03/15/24documented as of this encounter
--- OUTSIDE RECORDS SUMMARY | 2025-07-18 13:46 | XMS_ITS | Clinical Summary ---
Author Organization Frequent Browser [facility] tem Address [id number] [address] [place] [address] Care Team Providers Care Film Painter Name Role Phone Pauly Santacruz FLASH DESIGNER-DEVELOPMENTAL BEHAVIORAL PHYSICIAN Primary Care Provider [phone] Allergies Active AllergyReactionsCriticalityNoted JzbmTuwrnknyNsvtsw84/31/2022Isosorbide HtjhhgaqnfdUejyltfl36/14/2022 Medications MedicationSigDispense QuantityRefillsLast FilledStart DateEnd DateStatus omeprazole (PriLOSEC) 40 mg capsule Take 1 capsule (40 mg total) by mouth in the morning.03/19/2022ctive gabapentin (NEURONTIN) 600 mg tablet Take 1 tablet (600 mg total) by mouth 3 (three) times a day.03/30/2022ctive DALIRESP 500 mcg tablet Take 1 tablet (500 mcg total) by mouth in the morning.03/15/2022ctive dwzrzcwzqfe-lcbnypwpl-itinkvbh (TRELEGY ELLIPTA) 200-62.5-25 mcg blister with device [...] artery disease involving coronary bypass graft of samish heart without angina pectoris,Paroxysmal atrial fibrillation (CMS-HCC),Aneurysm [...] artery disease involving coronary bypass graft of samish heart without angina pectoris,Hx of CABG,Paroxysmal atrial fibrillation (CMS-HCC),Aneurysm of ascending aorta without rupture,History of maze procedure Take 100 mg in the morning and 50 mg at night 270 tablet ctive theophylline (BRYAN-24) 400 MG 24 hr capsule Take 1 capsule (400 mg total) by mouth in the morning.Active atorvastatin (LIPITOR) 40 mg tablet Indications:Coronary artery disease involving coronary bypass graft of samish heart without angina pectoris,Hx of CABG,Paroxysmal atrial [...] artery disease involving coronary bypass graft of samish heart without angina pectoris,Paroxysmal atrial fibrillation (CMS-HCC),Aneurysm of ascending aorta without rupture,Hx of CABG,History of maze procedureDISSOLVE 1 TABLET UNDER THE TONGUE NEEDED FOR CHEST PAIN- MAY REPEAT EVERY 5 MINUTES IF NEEDED (MAX 3 DOSES.- IF NO RELIEF CALL 911) 25 tablet 4Active lisinopriL (PRINIVIL,ZESTRIL) 5 mg tablet Indications:Coronary artery disease involving coronary bypass graft of samish heart without angina pectoris,Hx of CABG,Paroxysmal atrial fibrillation (CMS-HCC),Aneurysm of ascending aorta without rupture,History of maze procedure Take 1 tablet (5 mg total) by mouth in the morning. FINAL REFILL UNTIL LABS COMPLETED. 90 tablet 5Active Active Problems ProblemNoted DateDiagnosed DateMixed detyxigvobfyii79/17/2024rimary gjpxzqcjslue05/17/2024Left ventricular zompcctoikw82/17/2024oronary artery disease involving coronary bypass graft of samish heart without angina pectoris 05/20/2022aroxysmal atrial rdsztaagpwez53/12/2022Thoracic aortic aneurysm without yfxdyss5605/20/2022Hx of CABG05/20/2022History of maze anyfwrkri66/12/2022 Family History Medical HistoryRelationNameCommentsHeart diseaseFatherBreast cancerMotherCancer MotherRelationNameStatusCommentsFatherDeceasedMaternal [...] Last Filed Vital Signs Vital SignReadingTime TakenCommentsBlood Bcsvximu376/6206/24/2024 1:52 PM EDT Vuwqm931706/24/2024 1:52 PM EDTTemperature--Respiratory Rate--Oxygen Pbobedirov67% 06/24/2024 1:52 PM EDTInhaled Oxygen Concentration--Jrbjfq827.1 kg (245 lb) 06/24/2024 1:52 PM XHTDdzhdi318.7 cm (5' 7.99 )06/24/2024 1:52 PM EDTBody Mass Index37.261 1:52 PM EDT Plan of Treatment Health MaintenanceDue DateLast DoneCommentsDepression Ldfhzmvvp67/18/1972Zoster (Shingles) Vaccine (1 of 2)2010Fall Risk Romlixsjf29/18/2025Influenza Qlzyeha53/02/2023, 05/23/2021dult BMI Nlkhazqyw93 Tobacco Noqraukun79Statin Use: Baamcjuycxgmzb31/30/2026 10/07/2024DTaP,Tdap and Td Vaccines (2 - Td or Tdap)RSV ( or age 60+ yrs) (1 - 1-dose 75+ series)2035 [employer] Not on file Insurance * Guarantor: Nikunj CauseyAccount TypeRelation to PatientDate of PhoneBilling AddressPersonal/WhsjhfQhyb1960 [address] [place] [address] Care Teams Team MemberRelationshipSpecialtyStart DateEnd Date Pauly Snatacruz APRN-CHAO [address] [place] [address] PCP - GeneralFamily Aobdludt45/17/24
--- OUTSIDE RECORDS SUMMARY | 2025-07-18 13:46 | XMS_ITS | Clinical Summary ---
Author Organization [facility] Address [address] [place] [address] Care Team Providers Care Seat Cover Installer Name Role Phone Mario Zayas MD Primary Care Provider Allergies No known active allergies Medications MedicationSigDispense [...] Active Problems ProblemNoted DateDiagnosed DateObstructive sleep apnea qpawmvdt69/21/2025enign hypertensive heart disease without congestive heart xuiacnq2405/29/2025Nausea 04/14/2025bnormal cardiovascular stress test04/05/20257754Ucazmygyf91/09/2024eliac vqlsvqq2008/16/2024oronary artery disease involving [place] coronary artery of [place] heart without angina utvojjra23/09/2024Erectile zbhsfhqujse45/09/2024ain in wrist08/16/2024eripheral ldapufbttkwomv44/09/2024ardiomyopathy, ischemic 08/16/2024hronic systolic heart twtkbni0008/16/2024hronic anticoagulation 08/16/2024ure artpwynzwodxyqmxtjsx55/09/2024lass 2 severe obesity due to excess calories with serious comorbidity and body mass index (BMI) of35.0 to 35.9 in adult08/16/2024Mixed uxelnwjgingjus14/17/2024Essential hypertension 06/24/2024DD (degenerative disc disease), zygmkv4201/20/2024 Overview (08/16/2024): The patient is a 62 [...] has had no benefit with gabapentin increase. Lotebeftja39/14/6612Xteyukwasas57/14/2024History of maze oohfanbaz18/12/2022 Paroxysmal A-fib05/20/2022Thoracic aortic aneurysm without npezhbe3605/20/2022 Qcjjyrprxux85/01/2018Headache in back of head04/08/2018 Resolved Problems ProblemNoted DateDiagnosed DateResolved DateAbdominal aortic aneurysm (AAA) without /27/93934101/02/2025Left ventricular zswqndepcwy77/17/2024 04/18/2025 Encounters DateTypeDepartmentCare WhuaMdsrfbvdloq11/23/2025Telephone [facility] [address] [place] [address] Tari Nevarez MA 06/02/2025Telephone [facility] [address] [place] [address] Melita Ignacio MA 05/27/2025 11:00 AM EDTOffice Visit [facility] [address] [place] [address] Dorinda Diaz MD Coronary artery disease involving [place] coronary artery of [place] heart without angina pectoris (Primary Dx); Cardiomyopathy, [...] PM EDT - 04/21/2025 1:30 PM EDTSurgery [facility] [address] [place] [address] Adam Valle MD Coronary pdrguufepgp69/14/2025 10:42 AM EDT - 04/21/2025 4:08 PM EDTHospital Encounter [facility] [address] [place] [address] Adam Valle MD Abnormal cardiovascular stress test Discharge Disposition: Home or Self Care ()04/21/2025Results Follow-Up [facility] [address] [place] [address] Dorinda Diaz MD Cardiac hlewfqtzbjlnzia21/14/6220Jcemqp80/11/2025Travelfrom Last 3 Months Family History Medical HistoryRelationNameCommentsCoronary artery diseaseFatherCoronary artery diseaseMotherRelationNameStatusCommentsFatherDeceasedMotherDeceasedSisterAlive Social History Tobacco UseTypesPacks/DayYears UsedDateSmoking Tobacco: FormerCigarettes Smokeless Tobacco: Never Tobacco Cessation:Counseling Given: Not Answered Alcohol UseStandard Drinks/WeekCommentsYes0 (1 standard drink = 0.6 oz pure alcohol)occasionalSex and Gender InformationValueDate RecordedSex Assigned at XdnnhLyqg21/05/2025 3:26 PM EDTLegal PqfIqib31/15/2024 2:46 PM ESTGender ScanhwojVqfz81/05/2025 3:26 PM EDTSexual OrientationHeterosexual or Straight 04/12/2025 3:26 PM EDT Last Filed Vital Signs Vital SignReadingTime TakenCommentsBlood Ocghllck62/56005/27/2025 11:01 AM EDT Fpzll4825/19/2025 11:01 AM EDTTemperature--Respiratory Nxbn822404/21/2025 3:45 PM EDTOxygen Qnewwndnrb05%05/27/2025 11:01 AM EDT3 lpm o2 via n/cInhaled Oxygen Concentration--Zzpyxf923 kg (237 lb)05/27/2025 11:01 AM KJYKkxzam763.3 cm (5' 9 )05/27/2025 11:01 AM EDTBody Mass Ktyiq579905/27/2025 11:01 AM EDT Plan of Treatment Health MaintenanceDue DateLast DoneCommentsCT Rtahourksvif1960Colonoscopy 1960Colorectal Cancer Dfhmczyzr1960FIT-DNA1960FIT1960 FOBT1960Medicare Annual Wellness (AWV)1960Medicare Initial Physical (IPPE)1960 3695Anvdcrggybgau1960Depression Objebrcgw01/18/1972 Pneumococcal Vaccine: 50+ Years (1 of 2 - PCV)1979Zoster Vaccines (1 of 2) 2010Fall Risk Tcdjyuahn72/18/2025COVID-19 Vaccine (3 - 2024- season) 502/, 09/20/2020Influenza Vaccine (#1)/02/2023, 05/23/2021dult Lpdrwmp76HIB VaccinesAged OutNo longer eligible based on patient's [...] Procedures Procedure NamePriorityDate/TimeAssociated DiagnosisCommentsINSTANT WAVE FREE RATIO (IFR)Vdgobhi9704/21/2025 1:55 PM EDT Abnormal cardiovascular stress test CORONARY BYPASS GRAFT KXHSRXkjvrxa81/14/2025 1:55 PM EDT Abnormal cardiovascular stress test CORONARY UZRLAXHOHJYNvxtplg91/14/2025 1:55 PM EDT Abnormal cardiovascular stress test ACTIVATED CLOTTING NSWXJentzah10/14/2025 1:45 PM EDT ECG 12-LBWRSzdapru73/14/2025 12:25 PM EDT from Last 3 Months [...] infiltrated over the left radial artery. ??A 6-[place] sheath was placed in left radial artery. [...] was maintained at >250 seconds. A 6 [place] XB4 was engaged to the [place]. A [...] cardiovascular stress test [R94.39] Authorizing ProviderResult TypeResult StatusSt. [facility] CARDIAC CATH PROCEDURESFinal Result * (ABNORMAL) Activated clotting time (04/21/2025 1:45 PM EDT)ComponentValueRef RangeTest MethodAnalysis TimePerformed AtPathologist SignatureActivated Clotting Zeef599(H)82 - 152 s004/21/2025 1:49 PM EDT[facility] ([facility]) Specimen (Source)Anatomical Location / LateralityCollection Method / Volume Collection TimeReceived TimeBloodVenous blood specimen / Wggatex2504/21/2025 1:45 PM EDT04/21/2025 1:49 PM EDT Narrative Authorizing ProviderResult TypeResult StatusAdam YEPEZ POINT OF CARE TEST DOCKED DEVICE UNSOLICITED RESULTSFinal ResultPerforming Organization AddressCity/State/ZIP CodePhone Number [facility] ([facility]) [address] [place] [address] * Electrocardiogram, 12-lead (04/21/2025 12:25 PM EDT)ComponentValueRef Range Test MethodAnalysis TimePerformed AtPathologist SignatureVentricular Nfmh29PPI GE MUSEAtrial Ngat34AEOCQ MUSEPR Knytknrf284dxUW MUSEQRS BPVQOCLG05qcPA MUSEQT Rtukfnzz800agAD MUSEQTC CALCULATION(BAZETT)411msGE MUSEP Icrs58ywhhqtkHW MUSE R-Cyan47zqqxcraWR MUSET Wave Yjib604lfgkqznQX MUSESpecimen (Source)Anatomical Location / LateralityCollection Method / [...] on 04/21/2025 1:28:29 PM Authorizing ProviderResult TypeResult Lisa SINGLETARY ORDERABLESFinal ResultPerforming OrganizationAddressCity/State/ZIP CodePhone Number GE MUSE from Last 3 Months Insurance Care Teams Team MemberRelationshipSpecialtyStart DateEnd Mario Zayas MD [phone] [facility] [place] [address] PCP [facility]02/09/25
--- OUTSIDE RECORDS SUMMARY | 2025-07-18 13:46 | XMS_ITS | Clinical Summary ---
Author Organization [facility] Address [address] [place] [address] Phone Care Team Providers Care Wound Care Technician Name Role Phone Unavailable Primary Care Provider Unavailabl e Social History Tobacco UseTypesPacks/DayYears UsedDateSmoking Tobacco: Never AssessedSex and Gender InformationValueDate RecordedSex Assigned at BirthNot on fileLegal Sex Male08/03/2022 11:25 AM ESTGender IdentityNot on fileSexual OrientationNot on file Last Filed Vital Signs Vital SignReadingTime TakenCommentsBlood Qluljvcm195/8609 2:58 PM EDT Mllkx2397 2:58 PM LTOXkegfiyrvre57.8 ??C (98.2 ??F)05/29/2022 2:58 PM EDTRespiratory Sgei6684 2:58 PM EDTOxygen Hekdklekan50%05/29/2022 2:58 PM EDTInhaled Oxygen Concentration--Xjxlfv751 kg (239 lb 7 oz)05/29/2022 2:58 PM QDVJvihpt056 cm (5' 7.32 )05/29/2022 2:58 PM EDTBody Mass Index37.1509 2:58 PM EDT Plan of Treatment Not on file
--- OUTSIDE RECORDS SUMMARY | 2025-07-18 14:02 | XMS_ITS | CCD ---
Author Organization [facility] Care Team Providers Care Turner In Name Role Phone ERICK MELLISA STOHLER Unavailable [...] Unavail able SAMSA ., DARNELL Admitting Unavailable [facility] Primary Care Unavailable SAMSA ., DARNELL Attending Unavailable SAMSA ., DARNELL Consulting Unavailable SAMSA ., DARNELL Admitting Unavailable [facility] Primary Care Unavailable SAMSA ., DARNELL Attending Unavailable SAMSA ., DARNELL Consulting Unavailable GREG, KACIE Consulting Unavailable [facility] Primary Care Unavailable SAMSA ., DARNELL Attending Unavailable SAMSA ., DARNELL Consulting Unavailable SAMSA ., DARNELL Admitting Unavailable [facility] Primary Care Unavailable DR ALEYDA DYER Consulting Unavailable SAMSA ., DARNELL Attending Unavailable SAMSA ., DARNELL Admitting Unavailable SAMSA ., DARNELL Consulting Unavailable Noam CHRISTIAN, Risa Unavailable EMELY CANTU Referring Unavailable KACIE DEL REAL Primary Care Unavailable GILLIAN TAYLOR Attending Unavailable KACIE DEL REAL Referring Unavailable RISA MCNULTY Primary Care Unavailable Kacie Del Real MD Primary Care Provider Noam HO-CHAO Stirling Primary Care Provider Darius HO-CUSTODIAN MANAGER-Damaso Danni [place] Attending Provider Mario Zayas MD Primary Care Provider [phone] Mario Zayas MD Attending Provider Mario Zayas Attending Unavailable Mario Zayas Admitting Unavailable Noam ELECTRIC GOLF CART REPAIRER, Stirling Unavailable Mario Zayas MD Primary Care Provider [...] of OnsetReaction(s) Facility (19 sources)GlutenPropensity to adverse mraoskvuk00-24-6289YY[facility] ([facility] sources)Isosorbide DinitrateDrug Cmvoqns84-73-8667PqijwthrBTRG Healthcare (11 sources)Gluten; Translations: [GLUTEN]Propensity to adverse reactions to food (disorder)99-80-0262QzxXejxyv Repository (11 sources)Isosorbide; Translations: [ISOSORBIDE MONONITRATE]Drug Allergy 33-71-5327TckcgmtbWwtVigain Repository (1 source)ALLERGIES NOT ON FILE; Translations: [ALLERGIES NOT ON FILE]Propensity to adverse reactions (disorder)[facility] Repository Medications Current Medications MedicationDrug Class(es)DatesSig (Normalized)Sig (Original)[id number] 200 actuat albuterol 0.09 mg/actuat metered dose inhaler (20 sources)beta2-Adrenergic AgonistStart: 37-45-0723cghl 1 puff(s) by inhalation every four hours [...] mg/ml inhalation solution (20 sources)Anticholinergic, beta2-Adrenergic AgonistStart: 48-35-2174laiq 1 mL by inhalation four times dailyIpratropium-Albuterol 0.5 mg-3 mg(2.5 mg base)/3 mL solution for nebulization Active 3 ML INHALATION Four times daily June 14, 2025 12:00am Complies with drug therapyStart: 06-53-8471kkbpobysnjl- albuterol (Duo-Neb) 0.5-2.5 mg/3 mL nebulizer solution Take 3 mL by nebulization in themorning and 3 mL at noon and 3 mL in the evening and 3 mL before bedtime. 02/20/2022 ActiveStart: 99-06-8480Nbqfftdwqat-Albuterol 0.5-2.5 (3) MG/3ML Inhalation Solution Quantity: 1350 Refills: 0 Ordered: 20-Feb-2022 DO Start : 20-Feb-2022 Activeapixaban 5 mg oral tablet (20 sources)Factor Xa InhibitorStart: 06-04-2023 End: 79-57-3664mqro 1 tablet by mouth in the morningapixaban [...] sources)Platelet Aggregation Inhibitor, Nonsteroidal Anti-inflammatory Drug Start: 59-38-3807styk 1 tablet by mouth once dailyAspirin 81 mg tablet Active 81 MG PO Daily June 14, 2025 12:00am Complies with drug therapyStart: 86-73-6798bmop 1 tablet by mouth in the morningaspirin 81 MG EC tablet Take 81 mg by mouth in the morning. 07/25/2022 Activeatorvastatin 80 mg oral tablet (20 sources)HMG-CoA Reductase InhibitorStart: 09-83-8256dlih 1 tablet by mouth once dailyAtorvastatin 80 mg tablet Active 80 MG PO Daily June 14, 2025 12:00am Complies with drug therapyStart: 01-20-2023 End: 56-29-1347qump 1 tablet by mouth in the morningatorvastatin [...] 250 mg oral tablet (20 sources)Macrolide AntimicrobialStart: 88-08-2607jscv 1 tablet by mouth once dailyAzithromycin 250 mg tablet Active 250 MG PO Daily June 14, 2025 12:00am Complies with drug therapycapsaicin 0.75 mg/ml topical cream (1 source)Start: 87-24-5344Emwehbmyt 0.075 % cream Active 1 APPLIC TOPICAL [...] 0.05 mg oral capsule (20 sources)Vitamin DStart: 88-07-5289uarg 1 capsule by mouth once daily Cholecalciferol (Vitamin D3) 50 mcg (2,000 unit) capsule Active 50 MCG PO Daily June 14, 2025 12:00am Complies with drug therapy End: 71-61-3772ifmh 1 tablet by mouth in the morningcholecalciferol (Vitamin D- 3) 25 MCG (1000 UT) tablet Take 1,000 Units by mouth in the morning. 2025 Discontinueddapagliflozin 10 mg oral tablet (10 sources)Sodium-Glucose Cotransporter 2 InhibitorStart: 02-10-2025 End: 06-41-3569agoylvxiggmjp (Farxiga) 10 MG Take 10 mg by mouth 02/10/2025 02/10/2026 Activeferrous sulfate 325 mg delayed release oral tablet (20 sources)take 1 tablet by mouth at mealtimeferrous sulfate 325 (65 Fe) MG EC tablet Take 65 mg by mouth in the morning. Take with meals. Riwexc46 actuat fluticasone furoate 0.1 mg/actuat / umeclidinium 0.0625 mg/actuat / vilanterol 0.025 mg/actuat dry powder inhaler (20 sources)Anticholinergic, Corticosteroid, beta2-Adrenergic AgonistStart: 67-74-8825httw 1 puff(s) by inhalation in the morningTrelegy Ellipta 100-62.5-25 MCG/ACT aerosol powder Inhale 1 puff in the morning. 03/15/2022 ActiveStart: 48-09-1651Etugujt Ellipta 100-62.5-25 MCG/INH AEPB Quantity: 180 Refills: 0 Ordered: 15-Mar-2022 DO Start : 15-Mar-2022 GljupqPehvojwxiqw-Ebpvzwwbw-Oriaawpm (2 sources)Start: 66-55-1168Bkvfdqyimrp-Umeclidin-Vilanter (Trelegy Ellipta) 200-62.5-25 mcg blister with device Active 1 INH INHALATION Daily June 14, 2025 12:00am Complies with drug vxzpmwdozkhmievxwk-qgvtjxgoz-jwerjczs (TRELEGY ELLIPTA) 200-62.5-25 mcg blister with device (10 sources)Start: 12-45-2453epfvlswheei-umeclidin-vilanter (TRELEGY ELLIPTA) 200-62.5-25 mcg blister with device 1 puff in the morning. 03/15/2022 Active gabapentin 600 mg oral tablet (14 sources)Anti-epileptic AgentStart: 50-72-6353bcxw 1 tablet by mouth three times dailygabapentin (NEURONTIN) 600 mg tablet Take 1 tablet (600 mg total) by mouth 3 (three) times a day. 03/30/2022 ActiveStart: 23-44-6825Jwtnukqezm 300 MG Oral Capsule Quantity: 270 Refills: 0 Ordered: 30-Mar-2022 DO Start : 97-Vju-4220Gnsnyx04 hr isosorbide mononitrate 30 mg extended release oral tablet (19 sources)Nitrate VasodilatorStart: 29-26-0845knyh 1 tablet by mouth once daily, then take 1 tablet by mouth every twenty-four hoursisosorbide mononitrate ER (Imdur) 30 MG 24 hr tablet Take 30 mg by mouth Daily 06/13/2022 Active levoFLOXacin 500 mg oral tablet (2 sources)Quinolone AntimicrobialStart: 2025 End: 56-57-8453txia 1 tablet by mouth once dailylevoFLOXacin (Levaquin) 500 MG tablet Indications: Otorrhea of right ear Take 1 tablet (500 mg) by mouth Daily for 10 days 10 tablet 2025 04/04/2025 Activelisinopril 5 mg oral tablet (20 sources)Angiotensin Converting Enzyme InhibitorStart: 23-26-9476gvmu 1 tablet by mouth once dailyLisinopril 5 mg tablet Active 5 MG PO Daily June 14, 2025 12:00am Complies with drug therapyStart: 01-20-2023 End: 01-91-1139droj 1 tablet by mouth once daily in the morninglisinopriL (PRINIVIL,ZESTRIL) 5 mg tablet Indications: Coronary artery disease involving coronary bypass graft of three affiliated heart without angina pectoris , Hx of CABG , Paroxysmal atrial fibrillation (CMS-HCC) , Aneurysm of ascending aorta without rupture , History of maze procedure TAKE 1 TABLET BY MOUTH ONCE DAILY IN THE MORNING 30 tablet 11/12/2024 ActiveStart: 17-73-8578Nyixdydfbx 5 MG Oral Tablet Quantity: 90 Refills: 0 Ordered: 7-Jeffrey-2022 DO Start : 14-Mar-2022 Active meloxicam 15 mg oral tablet (10 sources)Nonsteroidal Anti-inflammatory DrugStart: 44-44-5915zwsi 1 tablet by mouth once dailyMeloxicam 15 mg tablet Active 15 MG PO Daily June 14, 2025 12:00am Complies with drug hr metoprolol succinate 50 mg extended release oral tablet (20 sources)beta-Adrenergic BlockerStart: 71-95-5614dfpl 2 tablets by mouth every twenty-four hours in the morning, then take 1 tablet by mouth in the e veningMetoprolol Succinate 50 mg tablet extended release 24 hr Active 50 MG PO .COMPLEX June 142:00am 50 mg orally; take 2 tablets by mouth in the morning and take 1 tablet by mouth in the evening Complies with drug therapy Start: 61-27-0189ezlnwtloan succinate XL (TOPROL XL) 50 mg 24 hr tablet Indications: Coronary artery disease involving coronary bypass graft of three affiliated heart without angina pectoris , Hx of CABG , Paroxysmal atrial fibrillation (CMS-HCC) , Aneurysm of ascending aorta without rupture , History of maze procedure Take 100 mg in the morning and 50 mg at night 270 tablet 3 06/25/2023 ActiveStart: 44-46-9219glfb 1 tablet by mouth every twenty-four hoursMetoprolol Succinate ER 50 MG Oral Tablet Extended Release 24 Hour Quantity: 135 Refills: 0 Ordered: 23-Mar-2022 DO Start : 23-Mar-2022 Activenitroglycerin 0.4 mg sublingual tablet (20 sources)Nitrate VasodilatorStart: 20-71-4226qcbmwzejglcbh (Nitrostat) 0.[address] 0.4 mg under the tongue every 5 (five) minutes if needed for chest pain 07/25/2022 ActiveStart: 07-25-2022 End: 00-31-9300skxceclnkikiq (NITROSTAT) 0.4 MG SL tablet Indications: Coronary [...] otic solution (15 sources)Quinolone AntimicrobialStart: 02-17-2023 End: 95-67-5738uehuhvkel (Floxin) 0.3 % otic solution Indications: Otorrhea of right ear Administer 5 drops into the right ear in the morning and 5 drops before bedtime. Do all this for 10 days. 5 mL 1 2025 04/04/2025 Active omeprazole 40 mg delayed release oral capsule (20 sources)Proton Pump InhibitorStart: 54-23-1429epqh 1 capsule by mouth in the morningomeprazole (PriLOSEC) [address] capsule Take 40 mg by mouth in the morning. 03/19/2022 ActiveStart: 17-22-4754Rmraahhbiw 40 MG Oral Capsule Delayed Release Quantity: 90 Refills: 0 Ordered: 19-Mar-2022 DO Start: 19-Mar-2022 ActiveOxygen (10 sources)oxygen Inhale continuously. Activepantoprazole 40 mg delayed release oral tablet (10 sources)Proton Pump InhibitorStart: 92-78-7816baac 1 tablet by mouth once dailypantoprazole (ProtoNix) 40 MG EC tablet Take 40 mg by mouth Daily 02/07/2025 ActivepredniSONE 10 mg oral tablet (20 sources)Start: 19-03-3238euvl 1 tablet by mouth once dailyPrednisone 10 mg tablet Active 10 MG PO Daily June 14, 2025 12:00am Complies with drug therapytake 1 tablet by mouth once dailypredniSONE (Deltasone) 20 MG tablet Take 20 mg by mouth Daily Activepregabalin 150 mg oral capsule (20 sources)Start: 02-18-2024 End: 16-66-9960mmhy 1 capsule by mouth in the morning, [...] mg oral tablet (20 sources)Phosphodiesterase 4 InhibitorStart: 10-72-2196nbfw 1 tablet by mouth in the morningDaliresp 500 MCG tablet Take 500 mcg by mouth in the morning. 03/15/2022 Activesodium chloride 9 mg/ml inhalation solution (7 sources)Start: 56-06-3188vhyv 1 mL by inhalation every twelve hoursSodium Chloride 0.9 % solution for nebulization Active 3 ML INHALATION Q12H June 14, 2025 12:00am Complies with drug therapyStart: 31-18-8693okcqwg chloride 0.9 % nebulizer solution Inhale 3 mL 03/23/2025 Activespironolactone 25 mg oral tablet (8 sources)Aldosterone AntagonistStart: 02-09-2025 End: 17-13-5472wjci 1 tablet by mouth in the morningspironolactone (Aldactone) 25 MG tablet Take 25 mg by mouth in the morning. 02/09/2025 02/09/2026 Active SUMAtriptan 100 mg oral tablet (19 sources)Serotonin-1b and Serotonin-1d Receptor AgonistSUMAtriptan (Imitrex) 100 MG tablet ActiveTESTOSTERONE, BULK, MISC (10 sources)TESTOSTERONE, BULK, MISC by miscellaneous route. 100 mg 1 tablet daily Activetheophylline 400 mg extended release oral tablet (20 sources)MethylxanthineStart: 28-96-9627tbid 1 tablet by mouth every twelve hoursTheophylline 300 mg tablet extended release 12 hr Active 300 MG PO Q12H June 14, 2025 12:00am Complies with drug therapyStart: 40-98-8790wpxr 1 tablet by mouth in the morning, [...] oral tablet (8 sources)Central alpha-2 Adrenergic AgonistStart: 03-90-1724wgwz 2 tablets by mouth at bedtimetiZANidine (Zanaflex) 4 MG tablet TAKE 2 TABLETS BY MOUTH AT BEDTIME FOR 30 DAYS 01/07/2025 Activetopiramate 50 mg oral tablet (8 sources)Start: 41-66-7762eumf 1 tablet by mouth once dailytopiramate 50 MG tablet Take 1 tablet by mouth Daily 02/21/2025 Activezinc gluconate 50 mg oral tablet (20 sources)zinc gluconate 50 MG tablet 1 (one) time each day at the same time Active Completed/Discontinued Medications MedicationDrug Class(es)DatesSig (Normalized)Sig (Original)acetaminophen 300 mg / codeine phosphate 30 mg oral tablet (13 sources)Opioid AgonistStart: 06-12-2023 End: 87-33-5019txfk 1 tablet by mouth every six hours as needed for pain acetaminophen-codeine (Tylenol w/ Codeine #3) 300-30 MG tablet take 1 tablet by mouth every 6 hoursAS NEEDED FOR PAIN for 5 days 06/12/2023 2025 Discontinueddicyclomine hydrochloride 20 mg oral tablet (13 sources)AnticholinergicStart: 04-01-2023 End: 36-91-8358rfcr 1 tablet by mouth three times daily for paindicyclomine (Bentyl) 20 MG tablet take 1 tablet by mouth three times a day if needed for abdominal pain 04/01/2023 2025 ItyaxdhlrdkaPuruifdphqe-Jmsbaalzw-Cfrkjt 200-62.5-25 MCG/ACT aerosol powder (13 sources)Start: 11-19-2022 End: 28-94-4607vwtr 1 puff(s) by inhalation once daily Cghtmsmgfxd-Xeljrwciw-Rxizgn 200-62.5-25 MCG/ACT aerosol powder Inhale 1 puff 1 (one) time each day. 11/19/2022 2025 DiscontinuedStart: 51-65-0387uelu 1 puff(s) by inhalation once cytrgTsglkilowdz-Gwvngajzq-Ovwctq 200-62.5-25 MCG/ACT aerosol powder Inhale 1 puff 1 (one) time each day. 11/19/2022 Activelysine 500 mg oral tablet (7 sources) End: 20-32-5518tskp 1 tablet by mouth in the morninglysine 500 mg tablet Take 1 tablet (500 mg total) by mouth in the morning. 06/24/2024 DiscontinuedMaca 500 MG capsule (13 sources) End: 92-57-4216Lxlg 500 MG capsule as directed Orally 2025 Discontinued [place] 500 MG capsule as directed Orally Activenaproxen sodium 220 mg oral tablet (13 sources)Nonsteroidal Anti-inflammatory Drug End: 56-19-9125sgaqmukz sodium (Aleve) 220 MG tablet every 12 (twelve) hours. 2025 Nuafbpcjjbqa61 hr naproxen sodium 220 mg / pseudoephedrine hydrochloride 120 mg extended release oral tablet (20 sources)alpha-Adrenergic Agonist, Nonsteroidal Anti-inflammatory Drug End: 78-80-2133phyg 1 tablet by mouth every twelve hours in the morning pseudoephedrine-Naproxen Na ER 120-220 MG tablet sustained-release 12 hour Take 1 tablet by mouth in the morning and 1 tablet before bedtime. 2025 Discontinuedsaw palmetto (Serenoa repens) 450 MG capsule (13 sources) End: 06-52-0572umg palmetto (Serenoa repens) 450 MG capsule as directed Orally 2025 Discontinuedsaw palmetto (Serenoa repens) 450 MG capsule as directed Orally Activesoybean lecithin 1200 mg oral capsule (13 sources) End: 70-59-5797bkav 1 capsule by mouth once dailyLecithin 1200 MG capsule Take 1 capsule every day by oral route. 2025 Discontinuedvitamin b12 1 mg oral tablet (20 sources)Vitamin B12 End: 03-27-8278nvzm 1 tablet by mouth in the morningcyanocobalamin (Vitamin B- 12) 1000 MCG tablet Take 1,000 mcg by mouth in the morning. 2025 Dis continued End: 58-15-2645pmotvygvhjhsrq (Vitamin B-12) 500 MCG tablet 1 (one) time each day at the same time. 2025 Discontinuedzonisamide 25 mg oral capsule (7 sources)Anti-epileptic Agent End: 69-40-5163swzo 1 capsule by mouth in the morning, then take 1 capsule by mouth at bedtimezonisamide (ZONEGRAN) 25 mg capsule Take 1 capsule (25 mg total) by mouth in the morning and 1 capsule (25 mg total) before bedtime. 06/24/2024 Discontinued Problems Active Problems Problem ClassificationProblemDateDocumented DateEpisodic/ChronicAortic; peripheral; and visceral artery aneurysms (20 sources)Aneurysm of thoracic aorta; Translations: [Thoracic aneurysm without mention of rupture]Onset: 939699-72-2870QwootkyUpttcob dysrhythmias (20 sources)Atrial fibrillation; Translations: [Atrial fibrillation]Onset: 662230-36-2741YgflcaoMvwxeuw obstructive pulmonary disease and bronchiectasis (20 sources)Chronic obstructive lung disease; Translations: [Chronic airway obstruction, not elsewhere classified]Onset: 01-22-2018 Resolved: 64-23-2122NoicriyRpkpabzwaxub of device; implant or graft (20 sources)Arteriosclerosis of coronary artery bypass graft; Translations: [Atherosclerosis of coronary arterybypass graft(s) without angina pectoris] Onset: 691604-83-0059LowbraaAyugdqnluv heart failure; nonhypertensive (14 sources)Chronic systolic heart failure; Translations: [Chronic systolic (congestive) heart failure]Onset: 08-16-2024 Resolved: 125307-37-4665TyhucehRwiojmdx atherosclerosis and other heart disease (18 sources)Coronary arteriosclerosis; Translations: [Coronary atherosclerosis of unspecified type of vessel, three affiliated or graft]Onset: 08-16-2024 Resolved: 364321-15-2719YekltswZciqbjbhh of lipid metabolism (20 sources)Mixed hyperlipidemia; Translations: [Mixed hyperlipidemia]Onset: 06-24-2024 Resolved: 206811-98-5393IedkrtlQexorkoya hypertension (20 sources)Hypertensive disorder; Translations: [Unspecified essential hypertension]Onset: 06-24-2024 Resolved: 914674-08-4196MztxogcGmsqvpuxz of skin (4 sources)H/O Malignant melanoma; Translations: [Personal history of malignant melanoma of skin]EpisodicMycoses (2 sources)Pain in toe; Translations: [Tinea unguium]99-89-3437SzivhthzQxujb aftercare (4 sources)Encounter for therapeutic drug level monitoring; Translations: [ENC THERAPEUTC DRUG LEVL MONITORING]Onset: 56-03-3717WptijwmuXxyfi and ill-defined heart disease (1 source)Heart disease, unspecified; Translations: [Heart disease, unspecified] Onset: 30-84-6918ZfgvwzsNhuko and ill-defined heart disease (5 sources)Left ventricular cardiac dysfunction; Translations: [Heart disease, unspecified]Onset: 719552-59-7483ErzxhdmSicmd ear and sense organ disorders (4 sources)Otorrhea [...] system disorders (19 sources)Neuropathy; Translations: [Polyneuropathy, unspecified]Onset: 644862-53-3682FotahwfYwfpd nervous system disorders (20 sources)Polyneuropathy; Translations: [Polyneuropathy, unspecified]Onset: 06-27-2023 Resolved: 219768-24-1648RnsxbrqYzfow nervous system disorders (3 sources)Carpal tunnel syndrome of left wrist; Translations: [Carpal tunnel syndrome, left upper limb]54-52-3789RjeacrtVguav nervous system disorders (6 sources)Tremor; Translations: [Tremor, unspecified]79-16-3769TgrflviiHajxr nutritional; endocrine; and metabolic disorders (2 sources)Morbid (severe) obesity due to excess calories; Translations: [Morbid (severe) obesity due to excess calories]Onset: 40-58-1488FusyjsnLntml nutritional; endocrine; and metabolic disorders (2 sources)Body mass index (BMI) 35.0-35.9, adult; Translations: [Body mass index (BMI) 35.0-35.9, adult]Onset: 89-16-9608EojahahFbpkr screening for suspected conditions (not mental disorders or infectious disease) (2 sources)Abnormal result of other cardiovascular function study; Translations: [Abnormal result of other cardiovascular function study]Onset: 04-06-2025 EpisodicOtitis media and related conditions (4 sources)Dysfunction of right eustachian tube; Translations: [Unspecified Eustachian tube disorder, right ear]82-17-8505TqjxyesrOdxdbgvohj and visceral atherosclerosis (2 sources)Peripheral vascular disease; Translations: [Peripheral vascular disease, unspecified]59-54-7823MbjdrutMhlj and subcutaneous tissue infections (2 sources)Paronychia of toe of left foot; Translations: [Cellulitis of left toe]02-25-2049OgndwxprJaogqcjysni; intervertebral disc disorders; other back problems (20 sources)Degeneration of lumbar intervertebral disc; Translations: [DDD (degenerative disc disease), lumbar]Onset: 542192-77-8958Micgwhx Unclassified (1 source)Neck Pain / 089371()Onset: 86-12-0046Vshuotxenltb (1 source)Stiffness / 343()Onset: 36-26-2521Lihrgtlaylup (1 source)Back Pain / 12()Onset: 77-60-1691Nnssmyscgtto (1 source)Upper Extremity Weakness / [id number]()Onset: 50-11-4461Crnoujvsvjfb (1 source)M54.2 - Cervicalgia,M51.369 - Other intervertebral disc degeneration, lumbar region without mention of lumbar back pain or lower extremity pain,M54.17 - Radiculopathy, lumbosacral regionUnclassified (1 source)Aneurysm of the ascending aorta, without rupture; Translations: [Aneurysm of the ascending aorta, without rupture]Onset: 92-22-9335Gxsgmiylkmiv (2 sources)Abnormal stress testOnset: 49-47-9698Ltzndavscmtb (1 source)Abdominal aortic aneurysm, without rupture, unspecified; Translations: [Abdominal aortic aneurysm, without rupture, unspecified]Onset: 12-31-2024 Unclassified (1 source)Obesity, class 2; Translations: [Obesity, class 2]Onset: 08-16-2024 Past or Other Problems Problem ClassificationProblemDateDocumented DateEpisodic/ChronicCardiac dysrhythmias (19 sources)Sinus tachycardia; Translations: [Tachycardia, unspecified]Onset: 01-22-2018 Resolved: 180001-12-7565HoqjpvprHbwstkug, including migraine (20 sources)Headache; Translations: [Occipital headache]Onset: 04-08-2018 Resolved: 139765-90-5326WbkbwtkeSsgfklnykclw with complications and secondary hypertension (8 sources)Hypertensive heart failure; Translations: [Hypertensive heart disease with heart failure]Onset: 2025 Resolved: 163147-83-7276ZojrugwZreqafatdusrcl (8 sources)Arthritis; Translations: [Unspecified osteoarthritis, unspecified site]Onset: 08-16-2024 Resolved: 995796-96-7664HdktcexOxgwj aftercare (12 sources)Long-term current use of anticoagulant; Translations: [detention (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 of 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]Onset: 08-16-2024 Resolved: 271511-06-1184CalliuahEagfk aftercare (2 sources)direct 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; Translations: [direct 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]Onset: 81-92-1356UtcgxsncVwomc gastrointestinal disorders (19 sources)Celiac disease; Translations: [Celiac disease]Onset: 03-04-2019 Resolved: 812000-71-2486JvmrqcnEnhoe male genital disorders (8 sources)Male erectile dysfunction, unspecified; Translations: [Impotence of organic origin]Onset: 08-16-2024 Resolved: 436899-53-9530RgedvafQryiz nervous system disorders (20 sources)Paresthesia; Translations: [Paresthesia of skin]Onset: 01-20-2024 75-00-8796TahjxqwfRadey non-traumatic joint disorders (8 sources)Pain in wrist; Translations: [Pain in unspecified wrist]Onset: 08-16-2024 Resolved: 686983-95-0081QpdobgsaPrprw nutritional; endocrine; and metabolic disorders (8 sources)Severe obesity; Translations: [Class 2 severe obesity due to excess calories with serious comorbidity and body mass index (BMI) of 35.0 to 35.9 in adult]Onset: 08-16-2024 Resolved: 719148-03-8698HoznzauAtcvhjpv codes; unclassified (20 sources)History of maze procedure for atrial fibrillation; Translations: [Other specified postprocedural states]Onset: 966667-80-6304Mbzygbpa Screening and history of mental health and substance abuse codes (1 source)Personal history of nicotine dependence; Translations: [PERSONAL HISTORY OF NICOTINE DEPEND]Onset: 23-63-4614PjmwrdjcUxaspkydyjv; intervertebral disc disorders; other back problems (20 sources)Cervicalgia; Translations: [Neck pain]Onset: 04-08-2018 Resolved: 207298-84-9440CpytbhorWcvonpidydbc (1 source)Aneurysm of the ascending aorta, without rupture; Translations: [Aneurysm of the ascending aorta, without rupture]Onset: 33-34-7108Jnmpdnqjnzsq (1 source)Abdominal aortic aneurysm, without rupture, unspecified; Translations: [Abdominal aortic aneurysm, without rupture, unspecified]Onset: 12-31-2024 Unclassified (1 source)Obesity, class 2; Translations: [Obesity, class 2]Onset: 08-16-2024 Results Test NameValueInterpretationReference QzhvlJfxecwcz02rv [id number] Tari Hagan MA Good lipids and LFTs, continue atorvastatin and recheck in 6 months LVM to advise patient of his lab results per Dr. Whaley request.Normal [facility] HospitalUrine Cultureon [id number] identified Cx Nom (U)No Growth 2 Days PERFORMED BY: [place] [address] PATHOLOGIST DEVELOPMENTAL EDUCATION INSTRUCTOR MICHEL PACHECO M.D.NormalOrlando Health Arnold Palmer Hospital For Children Physician GroupComment on above: Performed By: #### [facility] #### [place] [address] USAOffice Visiton 60-07-6744Qwmknu-up [id number] Elise Tabor 1960 M Date Provider Department Center 05/27/2025 49358-CEUENGBENNY GARZA Family History Problem Relation Age of Onset Coronary artery disease Mother Coronary artery disease Father Family Status - Relation Status Age at Mother Father Sister Alive Level of Service:69826 [place] OFFICE/OUTPATIENT ESTABLISHED MOD MDM 30 MIN Reason for Visit and Comments: Follow-up [792589] - Patient is here today for a follow up s/p cath. Patient states heart desir he feels well. Patient states he fell around labor day and possibly tore a hamstring. Post-Cath [731] Coronary Artery Disease [187] Hyperlipidemia [182] Hypertension [081225] Thoracic aortic aneurysm without rupture [Other] Cardiomyopathy [104] Atrial Fibrillation [80] Congestive Heart Failure [127][facility] 26-37-8415RYNU Attestation signed by Juan Flores MD at 04/21/2025 12:57 PM I personally spoke with and examined Mr. Tabor with Dr. Saleh. He has a drop in LVEF and a positive stress test. Plan cors, LV and WALTERS angiography. He voices understanding of risks (, CT, bleeding, etc) and agrees to proceed. Patient: [...] Celiac disease 08/16/2024 Coronary artery disease involving three affiliated coronary artery of three affiliated heart without angina pectoris 08/16/2024 Erectile dysfunction 08/16/2024 Pain in wrist 08/16/2024 Peripheral polyneuropathy 08/16/2024 Cardiomyopathy, ischemic 08/16/2024 Chronic systolic heart failure (CMS/HCC) 08/16/2024 Chronic anticoagulation 08/16/2024 Pure hypercholesterolemia 08/16/2024 Class 2 severe obesity due to excess calories with serious comorbidity and body mass index (BMI) of 35.0 to 35.9 in adult ([facility]) 08/16/2024 Mixed hyperlipidemia 06/24/2024 Essential hypertension 06/24/2024 DDD (degenerative disc disease), lumbar 01/20/2024 Neuropathy 01/20/2024 Paresthesia 01/20/2024 History of maze procedure 05/20/2022 Paroxysmal A-fib ([facility]) 05/20/2022 Thoracic aortic aneurysm without rupture 05/20/2022 Cervicalgia 04/08/2018 Headache in back of head 04/08/2018 Abnormal cardiovascular stress test 04/05/2025 Allergies: Allergies[2] BEHAVIOR SPECIALIST/Current Medications: Prescriptions Prior to Admission[3] Current Medications[4] [...] and agreed to proceed. Lars Saleh PGY-4 Cashier [facility] [1] Past Medical History: Diagnosis Date Abnormal ECG Aneurysm Arrhythmia Atrial fibrillation ([facility]) Cardiomyopathy ([facility]) COPD (chronic obstructive pulmonary disease) ([facility]) Coronary artery disease Hyperlipidemia Hypertension [2] No [...] by mouth 3 times (more content not included)...[facility] SystemHPon 21-48-4613KHW&P reviewed. The patient was examined and there are no changes to the H&P. Will proceed with coronary angiography for further evaluation of abnormal stress test. Consent for blood products obtained. Risks, benefits, and alternatives to procedure discussed with patient in detail who expressed understanding and agreed to proceed.[facility] SystemNURSNOTEon 04-21-2025 NURSNOTERN educated pt on d/c [...] wheeled off of unit with all of belongings.[facility] SystemNURSNOTEPatient requesting resp do his DuoNeb nebulizer prior to having his cath done. Resp tumbling and rolling supervisor called to have the treatment done - states someone will be down as soon as possibleNoMain Campus Medical CenterResults Follow-Upon 98-05-7256Noeoitw Follow-[id number] Elise Tabor 1960 M Date Provider Department Center 04/21/2025 [id number]-UCIYPJBENNY DIAZ [facility] CARD OR HeartVAS Family History Problem Relation Age of Onset Coronary artery disease Mother Coronary artery disease Father Family Status - Relation Status Age at Mother Father Sister AliveNoSelect [facility] 93-88-8275PNXlawvfxo Office Cardiology Clinic Note Reason for cardiology [...] procedure, paroxysmal atrial fibrillation, s/p ablation in [place], thoracic aortic aneurysm, left ventricle dysfunction, hypertension, hyperlipidemia COPD, prior tobacco and alcohol abuse He used to follow with [facility] cardiology. He states that overall he [...] Disp: , Rfl: theop (more content not included)...[facility] Office Visiton 42-32-0185Hqliil-up [id number] Elise Tabor 1960 M Date Provider Department Center 04/14/2025 65000-KYMRDABENNY GARZA [facility] Family History Problem Relation Age of Onset Coronary artery disease Mother Coronary artery disease Father Family Status - Relation Status Age at Mother Father Sister Alive Level of Service:82889 [place] OFFICE/OUTPATIENT ESTABLISHED MOD MDM 30 MIN Reason for Visit and Comments: Follow-up [269028] Abnormal stress test [Other] Cardiac Cath scheduled 04/28/2025 [Other] Coronary Artery Disease [187] Hyperlipidemia [182] Congestive Heart Failure [127] Hypertension [753368] COPD [313] Home o2 3lpm via N/C 31/03 [Other]NormalMercy Health Anderson Hospital36on 25-44-387595HjduqMD Tari Hagan MA Overall echo is normal with minor valvular heart disease LVM to advise patient of Dr. Diaz's findings.[facility] SystemOrders Onlyon 44-99-1336Vbiifc [id number] Elise Tabor 1960 M Date Provider Department Center 04/05/2025 928-DANNI THOMAS [facility] Family History Problem Relation Age of Onset Coronary artery disease Mother Coronary artery disease Father Family Status - Relation Status Age at Mother Father Sister AliveACMC Healthcare SystemResults Follow-Upon 85-78-0844Cdnsfsh Follow-[id number] Elise Tabor 1960 M Date Provider Department Center 04/02/2025 BENNY NICOLE [facility] CAROL ANN OR HeartVAS Family History Problem Relation Age of Onset Coronary artery disease Mother Coronary artery disease Father Family Status - Relation Status Age at Mother Father Sister AliveNormalUJ.W. Ruby Memorial HospitalOrders Onlyon 03-21-2025 Orders [id number] Elise Tabor 1960 M Date Provider Department Center 03/21/2025 [id number]-MVLVKJHJ, HISTORICAL [facility] Family History Problem Relation Age of Onset Coronary artery disease Mother Coronary artery disease Father Family Status - Relation Status Age at Mother Father Sister AliveNoMain Campus Medical Center36on 83-27-662342Jdnckxfrm lab results from 01/19/2025 and echo from [...] labs prior to apt in Apr-May 2025. [facility] SystemOrders Onlyon 67-72-3060Ayecqg Only [id number] Elise Tabor 1960 M Date Provider Department Center 02/04/2025 [id number]-TZXDBIYC, HISTORICAL SHAVON Cary Family History Problem Relation Age of Onset Coronary artery disease Mother Coronary artery disease Father Family Status - Relation Status Age at Mother Father Sister AliveNormalUniversDetwiler Memorial HospitalOffice Visiton 12-31-2024 Follow-up [id number] Elise Tabor 1960 M Date Provider Department Center 12/31/2024 07645-YYEESZBENNY DIAZ Family History Problem Relation Age of Onset Coronary artery disease Mother Coronary artery disease Father Family Status - Relation Status Age at Mother Father Sister Alive Level of Service:53873 [place] OFFICE/OUTPATIENT ESTABLISHED MOD MDM 30 MIN Reason for Visit and Comments: Coronary Artery Disease [187] Hyperlipidemia [182] Hypertension [692152][facility]36on Regarding echo and CTA chest performed [...] increasing atorvastatin per Dr. Diaz. He verbalized understanding.[facility] SystemOffice Visiton 14-17-9724Vgkqam-up [id number] Elise Tabor 1960 M Date Provider Department Center 08/16/2024 12288-GLMARYBENNY DIAZ Family History Problem Relation Age of Onset Coronary artery disease Mother Coronary artery disease Father Family Status - Relation Status Age at Mother Father Level of Service:05668 [place] OFFICE/OUTPATIENT NEW MODERATE MDM 45 MINUTES Reason for Visit and Comments: Atrial Fibrillation [80] - Had EKG at last apt with [facility] in Jun 2024. Denies chest pain and bleeding on Eliquis. Coronary Artery Disease [187] - CABG and MAZE in 2016 Hypertension [621890] Hyperlipidemia [182] COPD [313] - [facility] Ordered By: Juana Hercules on 52-13-2334GasVnkiak Health SystemEMG 1 Extremeityon 14-04-1606HTID HealthcareNVC 7-8 Nerveson 52-20-9971VMXO Healthcare THEOPHYLLINEon 13-49-1767ATBBIUSSGEZJ50.0 ug/tYWzbwkg91.0-20.0[facility] Boardman HospitalComment on above:Performed By: #### BRYAN #### [facility] [address] [address] [address] Karen LeeTHEOPHYLLINEon 00-86-2922ZJOLQVXNBAVY2.3 ug/mLCritically low 10.0-20.0[facility] Boardman HospitalComment on above:Performed By: #### BRYAN #### [facility] [address] [address] [address] Karen Lu Pressure Cuff Sizeon 27-93-5724Nebh risk assessmenta) No falls within the last yearMG-CT Surgery-Zebtab Work Phone: Tobacco use status CPHSb) NoMG-CT Surgery-[facility] Work Phone: blood Pressure Cuff SizeLargeMG-CT Surgery-[facility]ebtab Work Phone: Office Visit (Thoracic and Esophageal Surgery)on 52-82-2259Gjvnpj-up visitDiagnoses/Problems Assessed Atrial fibrillation (427.31) (I48.91) COPD [...] Activated Vitals Vital Signs Recorded: 29May2022 02:58PM Gldghjusvdz13.2 F Heart Rate91 Bttzzyzjzwa32 Gvwjffgu903 Eyqpngyqx68 Blood Pressure Cuff SizeLarge Height5 ft 7.32 in Wzqkac405 lb 7 oz BMI Xwyowrpzyc57.15 kg/m2 BSA Calculated2.19 Tobacco Useb) No Falls Screening (Age 18+)a) No falls within the last year O2 Swrhfaiejy91, Nasal Cannula Pain Scale7 Physical Exam The [...] MD; May 29 2022 3:24PM EST (Author) [facility] Referral Letteron 30-18-4436IX Referral LetterMr. Tabor is referred for consideration [...] 29 2022 3:24PM EST (Author) [facility] TouchworksCT LUNG CANCER SCREENINGon 05-38-0878YT LUNG CANCER SCREENING EXAMINATION: CT LUNG CANCER [...] Electronically authenticated by: ALEYDA DYER Date: 2022-04-26 16:20[facility] NorthHEMOGLOBINon 23-69-1043Qvsepknjny (Bld) [Mass/Vol]13.6 g/dL Critically low14.0-18.0[facility] Boardman HospitalComment on above:Performed By: #### HGB #### [facility] [address] [address] [address] Karen Pedroza Noteson 78-16-5291Fmjvnqj mass concEnco'connor hospitaler Department: [facility]ENTERAB THERAPYProgress Notes by Jacquelyn Rivera PT [...] Pt self discharged with last txsession with BEHAVIOR SPECIALIST.Patient is being discharged due to not returning to therapy and/or Plan of Care being .Recommend patient continue with HEP previously instructed on during therapy as appropriate.Patient may be reinstated in therapy upon new evaluation and orders from the physician.Thank You.[facility] HospitalProgress Noteson 04-23-2018 Protein mass concEncounter Department: [facility]ENTERAB THERAPYProgress Notes by Berlin Valle PTA at 04/23/2018 9:00 AMAuthor: Berlin Valle PTAService: (none)Author Type: Physical Therapy AssistantFiled: 04/23/2018 9:46 AMEncounter Date: 04/23/2018Status: SignedEditor: Berlin Valle PTA (Physical Therapy Assist ant)Physical Therapy Treatment NoteVisit Number: 5Encounter diagnosis:ICD-10-CM1.JuykgyxpdzdE74.22.Headache in back of akgwF81Liekznk Medical Diagnosis:SUBJECTIVE: Pt requests today being his [...] t-band- Scap retract x15- B UE ext n95Toao tucks x15GTB rows 3t18Nvbaxf- STM along c-spine paraspinals, UT, and levator [...] in rotation and SB without increase in pain.Residential Goals: LTG to be met by 06/08/18 [...] Treatment Time: 10Total Treatment Time: 25 PT TreatmentNoCleveland Clinic Euclid Hospital Progress Noteson 02-05-8855ChdjpeqGifford Medical Center Department: [facility]AB THERAPYProgress Notes by Berlin Valle PTA at 04/21/2018 9:00 AMAuthor: Berlin Valle PTAService: (none)Author Type: Physical Therapy AssistantFiled: 04/21/2018 9:46 AMEncounter Date: 04/21/2018Status: SignedEditor: Berlin Valle PTA (Professor Of Political Science)Physical Therapy Treatment NoteVisit Number: 4Encounter diagnosis:ICD-10-CM1.TipbitocnewE14.22.Headache in back of idfmO94Uzcyced Medical Diagnosis: CervicalgiaSUBJECTIVE:Compliance with HEP: Pt states [...] 30'Green t-band- Scap retract x15- B UEext p91Skkj tucks x15GTB rows 2r14Cukcnb- STM along c-spine paraspinals, UT, and levator [...] in rotation and SB without increase in pain.Veterinary Epidemiologist Goals: LTG to be met by 06/08/18 [...] Treatment Time: 17Total Treatment Time: 32 PT TreatmentNoCleveland Clinic Euclid HospitalProgress Noteson 04-16-2018 Protein mass concEncounter Department: [facility]AB THERAPYProgress Notes by Collette Pisano PTA at 04/16/20189:00 AMAuthor: Collette Pisano PTAService: (none)Author Type: Physical Therapy AssistantFiled: 04/16/2018 12:11 PMEncounter Date: 04/16/2018Status: SignedEditor: Collette Pisano PTA (Physical Therapy As sistant)Physical Therapy Treatment NoteVisit Number: 3Encounter diagnosis:ICD-10-CM1.NinbkgjkgzaO69.22.Headache in back of fsacX56Qabefnx Medical Diagnosis: CervicalgiaSUBJECTIVE:Compliance with HEP:Patient reports compliance [...] t-band- Scap retract x15- B UE ext e67Oyce tucks x15GTB rows 6e59Xvpdbh- STM along c-spine paraspinals, UT, and levator [...] in rotation and SB without increase in pain.Residential Goals: LTG to be met by 06/08/18 [...] Treatment Time: 28Total Treatment Time: 43 PT TreatmentNoCleveland Clinic Euclid HospitalProgress Noteson 17-90-5796HysljnkGifford Medical Center Department: [facility]AB THERAPYProgress Notes by Berlin Valle PTA at 04/10/2018 9:00 AMAuthor: Berlin Valle PTAService: (none)Author Type: Physical Therapy AssistantFiled: 04/10/2018 10:21 AMEncounter Date: 04/10/2018Status: SignedEditor: Berlin Valle PTA (Professor Of Political Science)Physical Therapy Treatment NoteVisit Number: 2Encounter diagnosis:ICD-10-CM1.QajujavewsbY00.22.Headache in back of sdeeG48Uxdispu Medical Diagnosis: CervicalgiaSUBJECTIVE:Compliance with HEP: Pt reports [...] UT stretch 3x 30'Chin tucks x15GTB rows 6t20SYV: chin tuck, UT andLS stretch, scap squeeze.Mechanical [...] in rotation and SB without increase in pain.Veterinary Epidemiologist Goals: LTG to be met by 06/08/18 [...] Treatment Time: 30Total Treatment Time: 45 PT TreatmentMercy HospitalProgress Noteson 53-83-8241Fetcubo [facility] concEncounter Department: [facility]AB THERAPYProgress Notes by Jacquelyn Rivera PT at 04/08/2018 1:45 PMAuthor: Jacquelyn Rivera PTService: (none)Author Type: Physical TherapistFiled: 04/08/2018 6:47 PMEncounter Date: 04/08/2018Status: SignedEditor: Jacquelyn Rivera PT (Physical Therapist)Physical Therapy EvaluationEncounter diagnosis:ICD-10-CM1.HfivoqpcagaF18.22.Headache in back of lnirB96Uysucezuc provider: Mellisa Clarke,*Primary Medical Diagnosis: CervicalgiaPlan of [...] Home: 15Prior Level of Functioning: Level of Elmore: Modified IndependentCurrent Level of Functioning: Outcome Scor e: NDI (26 raw score NDI, 52% disability) Functional deficits: reports no functional deficits, ableto do everything just withincreased pain. Level of Elmore: Modified IndependentSleep Status/Sleep Hygiene: Preferred Sleep Position: [...] codes)G8978 Mobility Current Status; Severity: CK 40-59% itjejwtzY8710 Mobility Goal Status; Severity: CI 1-19% impairedOutcome measure(s)/Test(s) used/Result(s): 52% disability on NDI.Clinical Judgment: Moderate to severe impairement, decreased neck ROM and strength, tenderness totrigger points moderateNew Category to Rtdzaz-Mv-Zdcp only?:NoEvaluation Breakdown DescriptionPatient HistoryComorbiditiesEnvironmental/Personal factorsLearning/CognitionDomestic life*Issue must [...] in rotation and SB without increase in pain.Veterinary Epidemiologist Goals: LTG to be met by 06/08/18 [...] Time: 60Time in: 1:44Time Out: 2:45 PT alLima Memorial Hospital Vital Signs Date TimeVital SignValuePerforming JjdcizllgVsldxlow06-24-0691 09:50-0400Body .8 cmYuri Rodriguez DPM Work Phone: [facility]linMqzobvhrlj83-20-6379 09:50-0400Body mass index (BMI) [Ratio]35.87 kg/y8SygijorjYuri Rodriguez DPM Work Phone: [facility]oplinCoxljfufzq80-96-4137 09:50-0400Body yzftjq529.4 kgFaheemcorbyivonne Rodriguez DPM Work Phone: [facility]linPqpjsnnokf83-88-7846 09:50-0400Respiratory rate18 /Gaylacorbyivonne Jae DPM Work Phone: [facility]oplinAvqgvjzjbl91-72-2045 11:48-0400Body succnp828.13 kgDokevin Zaysa MD Work Phone: [facility]10-07-2025 11:48-0400 Heart rate75 /Roslyn Zayas MD Work Phone: [phone])772-[address] [place], [place] 1097710-07-2025 11:48-0400 Inhaled oxygen flow rate3 L/Roslyn Zayas MD Work Phone: [phone])007-[address] [place], [place] 1097710-07-2025 11:48-0400 Respiratory rate16 /Roslyn Zayas MD Work Phone: [phone])361-[address] [place], [place] 1097710-07-2025 11:48-0400 SaO2% (BldA) [Mass fraction]93 %Mario Zayas MD Work Phone: [phone])357-[address] [place], [place] 1097708-08-2025 09:22-0400 Body loyppu436.8 cmPaul Biedenbach DO Work Phone: [facility]linNjevrraxyu86-29-1471 09:22-0400Body mass index (BMI) [Ratio]35.87 kg/m2Paul Biedenbach DO Work Phone: [facility]linWrvacwnvlg44-76-1647 09:22-0400Body .4 kgPaul Biedenbach DO Work Phone: [facility] JoplinLkagxenyaj35-03-4853 09:00-0400Body tdauba085.8 cmPaul Biedenbach DO Work Phone: [facility] JoplinRnjwdivwjd25-13-1610 09:00-0400Body mass index (BMI) [Ratio]35.87 kg/m2Paul Biedenbach DO Work Phone: [facility]linWjuowrzvoe50-01-0491 09:00-0400Body .4 kgPavesna Krishnan DO Work Phone: [facility]oplinCyavmpheis45-15-7507 10:42-0400Body gnnhos305.8 Yair Hall PA Work Phone: NOPark[facility] CenterCuqkgkfxks65-53-9473 10:42-0400Body mass index (BMI) [Ratio]35.87 kg/m2Linsey Hall PA Work Phone: [facility]oplinHmzfdjfzam70-00-5098 10:42-0400Body vfegnr564.4 Moira Hall PA Work Phone: [facility]oplinLcuiqamprs65-03-6458 10:42-0400Diastolic blood dyiqvhcu04 mm[Hg]Linsey Hall PA Work Phone: [facility]oplinAmztxcskzi94-94-4298 10:42-0400Heart rate75 /min Linsey Hall PA Work Phone: [facility]oplinVoziqwzudn64-51-2548 10:42-0400Respiratory rate16 /minLinsey LI Work Phone: [address] [address]Chiatldwxm55-45-5632 10:42-3246AwU8% (BldA) [Mass fraction]94 %Linsey Hall PA Work Phone: [facility] JoplinEaivpsgzvq80-79-2946 10:42-0400Systolic blood tlzuyper159 mm[Hg]Linsey Hall PA Work Phone: [facility]oplinAflkfjmlxw25-80-1676 13:52-0400Body oyxssn290.7 Kristi Taylor MD Work Phone: [facility]10-17-2024 13:52-0400Body mass index (BMI) [Ratio]37.26 kg/v8FjcpwGillian Taylor MD Work Phone: [facility]10-17-2024 13:52-0400Body .13 Rafael Taylor MD Work Phone: [facility]10-17-2024 13:52-0400Diastolic blood maseuwdb03 mm[Hg]Gillian Taylor MD Work Phone: [facility]10-17-2024 13:52-0400Heart rate 74 /minGillian Taylor MD Work Phone: [facility]10-17-2024 13:52-4494XlC9% (BldA) [Mass fraction]94 %Gillian Taylor MD Work Phone: [facility]10-17-2024 13:52-0400Systolic blood mm[Hg]Gillian Taylor MD Work Phone: [facility]10-02-2024 11:17-0400Body .7 cmAakash LI Work Phone: [facility]oplinZnwvtikeal03-23-6047 11:17-0400Body mass index (BMI) [Ratio]38.01 kg/m2Linsey LI Work Phone: [facility]oplinCatpppjbgl06-49-4546 11:17-0400Body jcsepj178.4 kgLinsey LI Work Phone: [facility]oplinBpxbrriioa92-46-3550 11:17-0400Diastolic blood umgxzyuq94 mm[Hg]Linsey LI Work Phone: [facility]Park[facility] CenterBboboxmmpq70-69-3008 11:17-0400Heart rate78 /min Linsey LI Work Phone: [facility]bournePark[facility] CenterYhwdeksrer32-34-5836 11:17-0400Respiratory rate16 /minLinsey LI Work Phone: NOPark[facility] CenterUvdzpbiabh70-67-8006 11:17-6679QbB2% (BldA) [Mass fraction]93 %Linsey LI Work Phone: NOParkland [facility] CenterWpbmdmkbep29-46-4955 11:17-0400Systolic blood uwbwfhgf160 mm[Hg]Linsey Hall PA Work Phone: NOParkland Health CenterWiuddxpapq38-90-0540 14:58-0400Body kmuqle086.99 cmReferring Provider UnknownMG-CT Surgery[facility] Work Phone: 1(105) 401-820009-21-2022 14:58-0400Body mass index (BMI) [Ratio] 37.15 kg/k2Hlamlxbrn Provider UnknownMG-CT Surgery-[place] Work Phone: 1([phone]) 654-796609-21-2022 14:58-0400Body surface area Derived from formula2.19 p8Sqcxgvowq Provider UnknownMG-CT Surgery-[place] Work Phone: 1(278) 261-346609-21-2022 14:58-0400Body askbnoovnwi64.2 [degF] Referring Provider UnknownMG-CT Surgery[facility] Work Phone: 1(755) 595-358509-21-2022 14:58-0400Body djduac563.61 kgReferring Provider UnknownMG-CT Surgery[facility] Work Phone: 1(715) 884-260209-21-2022 14:58-0400Diastolic blood ackyhtje22 mm[Hg] Referring Provider UnknownMG-[facility] Surgery[facility] Work Phone: 1(406) 739-269509-21-2022 14:58-0400Heart rate91 /minReferring Provider UnknownMG-CT Surgery-[place] Work Phone: 1([phone]) 709-479409-21-2022 14:58-0400Respiratory rate18 /minReferring Provider UnknownMG-CT Surgery-[place] Work Phone: 1(604) 990-456109-21-2022 14:58-5724TxX3% (BldA) [Mass fraction]93 % Referring Provider UnknownMG-CT Surgery-[place] Work Phone: 1(347) 163-512709-21-2022 14:58-0400Systolic blood klhffcuf212 mm[Hg] Referring Provider UnknownMG-[facility] Surgery[facility] Work Phone: 1(490) 282-682309-21-2022 14:58-85442 1Referring Provider UnknownMG- CT Surgery-[place] Work Phone: comment on above:PainScale Encounters Encounter DateEncounter TypeCare ProviderFacilityStart: 06-23-2025 End: 62-63-3226Nwnknv flowsheetYuri Rodriguez DPM Work Phone: [facility] PODIATRYStart: 06-23-2025 End: 87-18-8590Hxlsjl flowsStan Rodriguez DPM Work Phone: [facility] PODIATRYStart: 06-23-2025 End: 76-02-5312lpykgjryfcHEWNDYYH A BROWNNot AvailableStart: 06-23-2025 End: 12-77-0691Gfbdky outpatient new 30 minutesYuri Rodriguez DPM Work Phone: [facility] CI PODIATRYComment on above:PVD (peripheral vascular disease); Other polyneuropathy; Pain due to onychomycosis of toenails of both feet; Paronychia, toe, leftStart: 06-14-2025 End: 72-82-7828ubssaymvfsQcogtar M Hoy MD Work Phone: [facility] Work Phone: Start: 06-14-2025 End: 21-57-6696Eivgugj encounter Goyo Mccoy RTSF-LRA-W-FPG [facility] Work Phone: Start: 06-14-2025 End: 86-91-7736xdikjjtngjJcibabh M Hoy MD Work Phone: [facility] Work Phone: Start: 06-14-2025 End: 10-05-3067Tzrmqcbe ReferredMario Hogan MD-LAB Path Spec [facility] Start: 05-27-2025 End: 45-77-4023fwfjamrichANOCK [facility] Hospitaltart: 29-54-1649cksjjhzjjfPCNZEPATKEB [facility] Hospitaltart: 04-21-2025 End: 50-54-8693nrqvjkrclnRLGRZABKMRS [facility] Start: 04-15-2025 End: 74-79-9194Vfbwef flowsHesham Krishnan DO Work Phone: [facility] [place] OtolaryngologyStart: 04-15-2025 End: 27-52-6122Fpacbp flowsheetPaul S Biedenbach DO Work Phone: [facility] [place] OtolaryngologyStart: 04-15-2025 End: 53-80-1634Ujypco outpatient visit 25 minutesPaul S Biedenbach DO Work Phone: [facility] OtolaryngologyComment on above:Otorrhea of right ear (Primary Dx); Dysfunction of right eustachian tube; Chronic anticoagulationStart: 04-15-2025 End: 35-74-7227jhibhygbhyCEET S BIEDENBACHNot AvailableStart: 04-14-2025 End: 70-11-3261rxzwavoisjOOWZRGreen Cross Hospitaltart: 2025 End: 56-25-8994Dtgecs flowsheetPaul S Biedenbach DO Work Phone: no ENT SANDUSKYStart: 2025 End: 85-77-8716Lflcxu flowsheetPaul S Biedenbach DO Work Phone: NO ENT SANDUSKYStart: 2025 End: 72-47-1766Hfdtxd outpatient visit 15 minutesPaul S Biedenbach DO Work Phone: [facility] ENT SANDUSKYComment on above:Dysfunction of right eustachian tube (Primary Dx); Otorrhea of right ear; Chronic anticoagulationStart: 2025 End: 85-04-1380egtgpbetfoZVBX S BIEDENBACHNot AvailableStart: 12-31-2024 End: 24-43-3810xxjnjkmsnmWXINFGreen Cross Hospitaltart: 12-27-2024 End: 84-10-1755Nxynly flowsheetAngela Lowe PA Work Phone: aNA PRESTONtart: 12-27-2024 End: 95-31-1420Sheldq flowsheetAngela Lowe PA Work Phone: ana BELLEVUEStart: 12-27-2024 End: 82-95-1692Htgetr outpatient visit 15 minutesLinsey LI Work Phone: ana ASHISHUEComment on above:Degeneration of intervertebral disc of lumbar region with discogenic back pain and lower extremity pain (Primary Dx); Lumbosacral radiculopathy; Neck pain; Tremor; Chronic daily headacheStart: 12-27-2024 End: 59-93-0125crmyawatvdUCWO HILLNot AvailableStart: 12-20-2024 End: 24-83-5595WheaamOmaehef Hauler YOLANDAHARRIETT LUNAEVUEComment on above:DDD (degenerative disc disease), lumbar (Primary Dx); Lumbosacral radiculopathyStart: 11-25-2024 End: 71-26-0184Uvqsaetsu encounterJotyler Mauro [facility] Comment on above:transfering careStart: 11-09-2024 End: 09-19-4421OaxyzbDekdihq P Kyser PA-C Work Phone: [facility] Physicians CardiologyComment on above:Med RefillStart: 09-07-2024 End: 67-13-7626IuwedsYrpm Hill PA Work Phone: noIL [place] [facility] ROUTEComment on above:DDD (degenerative disc disease), lumbar; Lumbosacral radiculopathyStart: 08-16-2024 End: 58-41-8918qjejfxhxunUFWUBGreen Cross Hospitaltart: 07-29-2024 End: 83-64-7410SymmluJlbncxnGriselda TOVAR Work Phone: [facility] Physicians CardiologyComment on above:Med RefillStart: 06-24-2024 End: 06-04-3597Tnhoyz outpatient visit 25 minutesGillian Taylor MD Work Phone: Pro[facility] Centerca Physicians CardiologyComment on above: Coronary artery disease involving coronary bypass graft of three affiliated heart without angina pectoris (Primary Dx); Paroxysmal atrial fibrillation (CMS-HCC); Primary hypertension; Mixed hyperlipidemia; Left ventricular dysfunctionStart: 06-24-2024 End: 00-96-3153mvvvcnbpwvOZCSL German BONDMary Babb [facility] HospitalStart: 06-23-2024 End: 49-73-7264Sdirwvzpo encounterJuana Hercules CMABrightlook HospitalMedica Physicians CardiologyStart: 06-09-2024 End: 88-66-5036Jkrrto outpatient visit 15 [facility] at lowellMelitachina Rafael LI Work Phone: noms [place] STATE ROUTEComment on above:Degeneration of intervertebral disc of lumbar region with discogenic back pain and lower extremity pain (Primary Dx); Neck pain; Chronic daily headache; TremorStart: 06-08-2024 End: 34-79-1616Nxgzqc Amelia Lackey MD Work Phone: noms [place] ROUTEStart: 06-08-2024 End: 98-02-6209Gkhbaq Amelia Lackey MD Work Phone: noms [place] ROUTEStart: 06-08-2024 End: 48-21-0535Onzhpid encounter Alicia Lackey MD Work Phone: noms [place] ROUTEComment on above:Carpal tunnel syndrome of left wrist (Primary Dx)Start: 05-21-2024 End: 07-24-7396AnsesaDjehClay Soto Physicians CardiologyComment on above:Med RefillStart: 05-17-2024 End: 06-17-1470jxeoailkiaQBHZWP E OOSTRANOMS HealthcareComment on above:DDD (degenerative disc disease), lumbar; Lumbosacral radiculopathyStart: 05-14-2024 End: 62-85-6306Bbqpgyoyh encounterJuana BurrMedica Physicians CardiologyStart: 04-30-2024 End: 47-43-4095Rbyhozdga encounterAshlee Soto [facility] Start: 02-18-2024 End: 55-49-6304LtvctpOhdfrmRosa Soto Physicians CardiologyComment on above:Med RefillStart: 01-24-2024 End: 96-10-0581EtchvlUxwhpw D Grande MD Work Phone: [facility] Physicians CardiologyComment on above:Med RefillStart: 12-30-2022 End: 60-83-4600wwnivwrquvJZOVNL SAMSA .Facility:I8Conos: 12-17-2022 End: 87-26-7298rumlpnqrkaOTSPFG SAMSA .Facility:Z9Kyoma: 31-00-4622VQCZQ Referring Provider UnknownMG-Pulm Sleep-[place] [address] Work Phone: Start: 90-40-1676Yszjlb outpatient new 45 minutes Referring Provider UnknownMG-CT Surgery-[place] Work Phone: Start: 87-80-6941xojrdhrrcyIvLeyla Peña Facility:CStart: 05-21-2022 End: 33-31-1024nmepjvxqbcWCBAWU SERVICES [facility]ITALFacility:V0Gyppg: 04-26-2022 End: 68-93-5616nxnokvqwszUDVLAA SERVICES [facility]OSPITALFacility:W6Olnag: 04-23-2018 End: 24-95-8660Vgsfoml encounterSCOTT D [facility] Hospitaltart: 04-21-2018 End: 15-99-1477Bnptidf encounterSCOMERRILL Demarco [facility] Hospitaltart: 04-16-2018 End: 91-19-4719Rnchkkm encounterRADENIZ Porter [facility] Centertart: 04-10-2018 End: 07-38-4566Mczmhez encounterSCOTT Dav [facility] Hospitaltart: 04-08-2018 End: 95-52-2587Pleuvbo encounterSHERAlix LISA [facility] Patient encounter statusReferring Provider UnknownMG-Pulm Sleep-[place] 1800 Work Phone: Procedures DateProcedureProcedure DetailPerforming ClinicianStart: 93-60-4964Wmived-up visitFollow-upSAMAR KHOURYStart: 38-04-3528Qnx routine ecg w/least 12 lds w/i&r Gillian Taylor MD Work Phone: Start: 83-01-2663Hvxgbo-up visitFollow-upLAURA German TAYLORStart: 06-08-2024 End: 60-39-1448Dsabzf emg ea extremty w/paraspinl area Ritesh Lackey MD Work Phone: Start: 21-41-0205Mdnngqk of coronary artery bypass graftingHx of CABGElise Borjas MD Work Phone: Cataract surgeryReferring Provider UnknownCoronary artery bypass graftReferring Provider UnknownHernia repairReferring Provider UnknownHistory of coronary artery bypass graftingHx of CABGNeisha Weathers RN History of coronary artery bypass graftingHx of CABGElise Borjas MD Work Phone: History of coronary artery bypass graftingHx of CABG Radha Griffin RNHistory of coronary artery bypass graftingHx of CABGPablo Zaragoza HANDLE MACHINE OPERATOR-GENERATOR REPAIRER Work Phone: History of coronary artery bypass graftingHx of CABG Keron Arreguin PA-C Work Phone: Prosthetic arthroplasty of shoulderReferring Provider UnknownTotal replacement of hipReferring Provider Unknown Plan of Treatment DateCare ActivityDetailAuthorStart: 49-53-2315NYlV,Tdap and Td Vaccines (2 - Td or Tdap)DTaP,Tdap and Td Vaccines (2 - Td or Tdap)[facility] SystemStart: 10-17-2025 End: 67-87-6708Dqwpjlv encounter /09/2026 10:15 AM EST Office Visit [facility] [address] [place] [phone] Tree Krishnan, [address] [place] [address] [facility] OtolaryngologyStart: 09-15-2025 End: 81-15-5518Lexgafo encounter ghmwylfem46/08/2026 10:50 AM EST Procedure Visit [facility] [address] [place] [address] Yuri Rodriguez, DPM [address] [address] [place] [address] [facility] CI PODIATRYStart: 60-26-4868Huzxw BMI ScreeningAdult BMI ScreeningProMemorial Health System [facility] SystemStart: 21-04-5049Gwygpep ScreeningTobacco ScreeningProMemorial Health System [facility] SystemStart: 85-13-5078Upwvrtkl identified in Urine by [facility] Start: 30-31-9230Zcobcob referralToledo Hospital Work Phone: Start: 41-13-9177Ciqab [facility] Hospitaltart: 05-16-2025 End: 14-31-5261Tgdjefb encounter noyercvmz76/08/2025 10:40 AM EDT Office Visit HARRIETT SANTIAGO [address] [place] [address] Linsey Hall PA [address] [place] [address] HARRIETT LUNAARTtart: 47-05-9722Qyloejdmb vaccinationNOMS HealthcareStart: 04-15-2025 End: 84-81-7145Rnlbkil encounter procedureNOMS ENT SANDUSKYComment on above: ArrivedStart: 2025 End: 78-23-9409Vlossby encounter ftkcxpwar52/18/2025 9:15 AM EDT Office Visit [facility] SHAYNE [place]LL[facility] [address] [place] [phone] Tree Krishnan DO [address] [place] [address] ArrivedNOMS ENT SANDUSKYComment on above:ArrivedStart: 12-23-2024 End: 57-52-6055Nqxtvhr encounter sdtjcjlcy25/17/2025 10:40 AM EDT Office Visit HARRIETT SANTIAGO [address] [place] [address] Linsey Hall PA [address] [place] [address] HARRIETT JOHNSTONtart: 12-21-2024 End: 97-54-7612Hwyxugq encounter dmjovrtwl29/15/2025 10:40 AM EDT Office Visit NOMNigel SANTIAGO [facility] [address] [place] [address] Linsey Hall PA [address] [place] [address] NOM [place] [facility] ROUTEStart: 10-22-7008Cieec BMI ScreeningAdult BMI ScreeningProMemorial Health System [facility] SystemStart: 59-60-3230Cnvltvo ScreeningTobacco ScreeningProSelect Medical Specialty [facility]hilltart: 06-24-2024 End: 00-86-1114OY Chest WO and CT angiogram Coronary arteries W contrast IVCT angiogram chest Imaging Routine Coronary artery disease involving coronary bypass graft of three affiliated heart without angina pectoris Expected: 06/24/2024, Expires: 06/24/2025ProMem[facility] SystemComment on above:Expected: 06/24/2024, Expires: 06/24/2025Start: 06-24-2024 End: 82-65-5539Cbfb complete W/O contrastEcho complete W/O contrast Echocardiography Routine Coronary artery disease involving coronary bypass graft of three affiliated heart without angina pectoris Expected: 06/24/2024, Expires: 06/24/2025Pro[facility] SystemComment on above:Expected: 06/24/2024, Expires: 06/24/2025Start: 06-24-2024 End: 84-89-7256Dfxuzdy encounter onlsmefxf10/17/2024 2:00 PM EDT Office Visit [facility] [address] [place] [address] Gillian Taylor MD [address] [place] [address] [facility] CardiologyStart: 06-09-2024 End: 96-26-2296Dsbkquw encounter midxgctja75/02/2024 11:20 AM EDT Office Visit [facility] [place] [facility] [address] [place] [address] Linsey Hall PA [address] [place] [address] NOM [place] [facility] ROUTEStart: 06-08-2024 End: 45-10-5769Qlukseo encounter procedureNOMS [facility] ROUTEComment on above:ArrivedStart: 05-17-2024 End: 92-00-4966Lokyfocxwjcc / ancillary services rcozeafeqt38/09/2024 8:30 AM EDT Ancillary Procedure [facility] [address] [place] [address] Emely Cantu MD [address] [place] [address] [facility] CardiologyStart: 58-39-6490Mltmwgqyq vaccinationNOIL HealthcareStart: 2010 Administration of varicella zoster vaccineZoster (Shingles) Vaccine (1 of 2) [facility] SystemStart: 85-01-5919Sunjxbctwweb Vaccine: 65+ Years (1 of 1 - PCV)Pneumococcal Vaccine: 65+ Years (1 of 1 - PCV)[facility] HealthcareStart: 38-92-0502JTxX,Tdap and Td Vaccines (1 - Tdap)DTaP,Tdap and Td Vaccines (1 - Tdap)[facility] SystemStart: 15-82-9114Qglqn BMI Follow Up PlanAdult BMI Follow Up PlanLancaster Municipal Hospital SystemStart: 35-78-0391Fzprsihqvm Screening Depression ScreeningLancaster Municipal Hospital SystemStart: 66-51-2785Geptgaxqb for malignant neoplasm of colonNOIL Healthcare End: 42-21-0444FFB panel - Blood by Automated countCBC Lab Routine Paroxysmal atrial fibrillation (CMS-HCC) 1 Occurrences starting 06/24/2024 until 06/24/2025 [facility] SystemComment on above:1 Occurrences starting 06/24/2024 until 06/24/2025efuroxime free [Mass/volume] in Serum or PlasmaHarrison Community Hospital End: 19-39-9758Xrltjnmbvszot metabolic 2000 panel - Serum or PlasmaCMP Lab Routine Primary hypertension 1 Occurrences starting 06/24/2024 until 06/24/2025 [facility] SystemComment on above:1 Occurrences starting 06/24/2024 until 06/24/2025 End: 65-35-8142Yarjw panelLipid panel Lab Routine Mixed hyperlipidemia 1 Occurrences starting 06/24/2024 until 06/24/2025[facility] Work Phone: Comment on above:1 Occurrences starting 06/24/2024 until 06/24/2025Patient referralToledo Hospital Work Phone: Pyridoxine [Mass/volume] in Serum or PlasmaHarrison Community HospitalUS.doppler Lower extremity arteryVascular US lower extremity arterial Doppler complete Vascular Ultrasound Routine PVD (peripheral vascular disease) Ordered: 06/23/2025[facility] Work Phone: Comment on above:Ordered: 06/23/2025[facility] Immunizations Immunization DateImmunizationNotesCare DahvdnxoTgeetvzi40-11-5999Pcpfcldfu, injectable, Madin Washburn Canine Kidney, preservative free, quadrivalentPaul edevergreenhealth monroe DO Work Phone: [facility] Tan[facility]bourneParkland Health CenterEcvukhxjev54-24-9265benixgc toxoid, reduced diphtheria toxoid, and acellular pertussis vaccine, adsorbedPaul Biedbach DO Work Phone: [facility] JoplinEoewtgolwa11-00-5528zcxfftqiq virus vaccine, unspecified formulationNicHospital Sisters [facility]09-15-2021influenza, high dose seasonal, preservative-freeSelect Specialty Hospital-[facility]09-15-2021 influenza virus vaccine, unspecified formulationElise Borjas MD Work Phone: [facility]02-17-2021Pfizer Purple Cap SARS-CoV-2 VaccinationNicHospital [facility]01-13-2021Pfizer Purple Cap SARS-CoV-2 VaccinationNicChildren's of Alabama Russell Campusedy [facility] Payers DatePayer CategoryPayerPolicy [id number]-pay2023Medicare (Managed Care)HUMANA MEDICARE ADVANTAGE [id number] 2020Medicare [id number] 2020Medicare HMOHUMANA MEDICARE Member Subscriber Plan / Payer (Effective 2019-Present) Name: Padilla Elise Wyatt Relation to Subscriber: Self Name: Padilla Elise Schneider Payer ID: [id number] (NAIC) Type: Not on file Address:[address] [place], [place] [id number] 2..1.170357.3.57[id number] 2..1.772454.3.57[id number] 2..1.483289.3.57[id number] 2..1.421093.3.57[id number] 2.16.840.1.727653.3.57[id number] 2.16.840.1.118698.3.57[id number] 2.16.840.1.957175.3.57[id number] 2..840.1.472468.3.57[id number] 2.16.840.1.393439.3.57[id number] 2.16.840.1.315623.3.57[id number] 2.840.1.364807.3.579.2.1259 [id number] 2.16840.1.086485.3.579.2.531 Social History DateTypeDetailFacilityStart: 03-15-2024 End: 12-60-9733Kgqeep alcohol useSocial alcohol useLancaster Municipal Hospital SystemStart: 03-15-2024 End: 96-59-4831Aylisxt smoking status NHISEx-smokerNOMS HealthcareStart: 09-08-1974 End: 37-42-7948Izlksix of tobacco useCurrent smokerProMemorial Health System [facility] SystemStart: 09-08-1974 End: 51-20-0339Pbmouop of tobacco useCigarette SmokerNOMS HealthcareStart: 05-20-2022 End: 50-82-0813Qbzvxdz use and exposureSmokeless tobacco non-userLancaster Municipal Hospital SystemStart: 03-15-2024 End: 11-98-3219Juzpzilcj beverage intakeLifetime non-drinker (finding)[facility] HealthcareStart: 03-15-2024 End: 87-95-1333Nhojuvq use panelLancaster Municipal Hospital SystemStart: 17-78-7027Zzluyol CommentocassionalVA Hospital HealthcareStart: 31-15-2296Lmm assigned at birthFox Chase Cancer CenterStart: 15-44-2430Zmknge identityIdentifies as male gender (finding) [facility] HealthcareStart: 07-29-2023 End: 83-61-9142Vesdthisy beverage intakeEx-drinker (finding)[facility] Hospitaltart: 20-06-5429Jfaysl the past 12 months we worried whether our food would run out before we got money to buy more.Never [facility] Start: 76-87-5597Giqqoqv CommentocaFormerly [facility], later [facility] Morgantontart: 36-18-7926Yol assigned at birthNot on fileIredell Memorial Hospitaltart: 77-22-8514ZeuGdks (finding)[facility] Clinical Notes 04-30-2024 to 06-23-2025 Note Date & IomtMkopXwmhdfwd42-60-4379 History of Present illness Narrative* Yuri Rodriguez, [...] Insecurity: No Food Insecurity (06/24/2024) Received from [facility] [employer] Hunger Screening Within the past 12 months [...] non palpable pedal pulses bilaterally NEURO: 5.07 Elizabeth Anjum monofilament test intact to digits and [...] gear. Patient have [facility] P[facility]s at [facility] for possible procedure and nail avulsions in the future with follow up post testing Yuri Rodriguez DPM [1] Allergies Allergen Reactions Gluten Meal GI intolerance Isosorbide Nitrate Headache [2] Past Medical History: Diagnosis Date Anemia Arthritis 08/16/2024 Atrial fibrillation (HCC) Cardiomyopathy, ischemic 08/16/2024 Celiac disease (HCC) 03/04/2019 Centrilobular emphysema (HCC) 2025 Noted by [facility] last documented on [id number] Cervicalgia 04/08/2018 Chronic anticoagulation 08/16/2024 Chronic obstructive lung disease (HCC) 01/22/2018 Chronic obstructive pulmonary disease (COPD) ([facility]) Chronic systolic heart failure ([facility]) 08/16/2024 Class 2 severe obesity due to excess calories with serious comorbidity and body mass index (BMI) of35.0 to 35.9 in adult 08/16/2024 Coronary artery disease Emphysema of lung ([facility]) Erectile dysfunction 08/16/2024 H/O hernia repair Headache in back of head 04/08/2018 Hypertensive heart disease with heart failure (HCC) 2025 Noted by [facility] last documented on 20241001 Mixed hyperlipidemia 06/24/2024 Pain in wrist 08/16/2024 Peripheral polyneuropathy 06/27/2023 Pneumonia Primary hypertension 06/24/2024 Pure hypercholesterolemia 08/16/2024 Rheumatoid arthritis ([facility]) Sinus tachycardia 01/22/2018 [3] Current Outpatient Medications: [...] , Rfl: documented in this encounterMercy Hospital JoplinNqutqcsvka72-44-7616 Hospital Discharge instructionsAmbulatory Orders* Referral to Pain Management Time Frame: 06/14/25, Location: None Selected [facility] Work Phone: [phone] 480-277110-07-2025 Evaluation note* Diagnosis Onset Date Resolution Status Admit Date Paresthesias acuteOctober 2024 11:34amCarpal tunnel syndrome, leftchronicOctober 2024 11:34amDDD (degenerative disc disease), lumbarchronicOctober 2024 11:34amLumbosacral radiculopathychronicOctober 2024 11:34amNeck painchronic October 2024 11:34amTremorchronicOctober 2024 11:34am [facility] Work Phone: [phone] [facility] Reason for [...] procedure, paroxysmal atrial fibrillation, s/p ablation in [place], thoracic aortic aneurysm, left ventricle dysfunction, hypertension, hyperlipidemia COPD, prior tobacco and alcohol abuse He used to follow with [facility] cardiology. He states that overall he [...] with replacement documented in this encounterMercy Hospital JoplinMexbdwzuje15-22-7436 NoteBellevue Office [facility]iology [facility] Note Reason for [...] procedure, paroxysmal atrial fibrillation, s/p ablation in [place], thoracic aortic aneurysm, left ventricle dysfunction, hypertension, hyperlipidemia COPD, prior tobacco and alcohol abuse He used to follow with [facility] cardiology. He states that overall he [...] and subspecialist documented in this encounterMercy Hospital JoplinZniyzlbiun51-98-6774 NoteBellevue [facility] Note Reason for [...] procedure, paroxysmal atrial fibrillation, s/p ablation in [place], thoracic aortic aneurysm, left ventricle dysfunction, hypertension, hyperlipidemia COPD, prior tobacco and alcohol abuse He used to follow with [facility] cardiology. He states that overall he [...] Medical History: Diagnosis Date Anemia Atrial fibrillation ([facility]/HCC) Celiac disease (CMS/HCC) 03/04/2019 Cervicalgia 04/08/2018 Chronic obstructive lung disease (CMS/HCC) 01/22/2018 Chronic obstructive pulmonary disease (COPD) (CMS/HCC) Coronary artery disease ([facility]/HCC) Emphysema of lung ([facility]/HCC) H/O hernia repair Headache in back [...] triceps, wrist extensors, wrist extensors, wrist flexor, investigation officer strength 5/5. LUE Strength deltoid, biceps, triceps, wrist extensors, wrist extensors, wrist flexor, investigation officer strength 5/5. RLE Strength illopsoas, quadriceps, tibialis [...] new or worsening symptoms documented in this [facility]04-14-2025 Telephone encounter Note* Telephone Encounter - Leanne Mancia MA - 12/20/2024 4:44 PM EDT Patient is in need of refill, appt had to be rescheduled due to provider being out. Please send to [facility] [place] [facility] [id number] Miscellaneous Notes* Telephone Encounter - Leanne Mancia MA - 12/20/2024 4:44 PM EDT Patient is in need of refill, appt had to be rescheduled due to provider being out. Please send to [facility] [employer] documented in this encounterMercy Hospital JoplinOeahnkcsul21-45-2015 Miscellaneous Notes* Telephone Encounter - Arti Mauro RN - 11/25/2024 9:46 AM EDT Pt calls to let us know he is switching hospice liaison to a group in [place] because he does not like seeing a different doctor every time he comes here. Explained to him that we do try to keep pt's with same doc but it does not always work out that way. Pt understood but has already seen the the other group. documented in this encounterSelect Medical [facility]03-20-2025 Telephone encounter Note* Telephone Encounter - Arti Mauro RN - 11/25/2024 9:46 AM EDT Pt calls to let us know he is switching hospice liaison to a group in [place] because he does not like seeing a different doctor every time he comes here. Explained to him that we do try to keep pt's with same doc but it does not always work out that way. Pt understood but has already seen the the other group. [facility]01-02-2025 Telephone encounter Note* Telephone Encounter - Yuri Chapa MA - 09/09/2024 8:59 AM EST 06/09/2024 Continue Lyrica 150mg PO TID for neuropathic pain [facility] reviewed. Last filled 05/17/2024 for 90 day supply. Due 08/15/2024 [facility] Kzjzpgafni95-40-9281 Miscellaneous Notes* Telephone Encounter - Yuri Chapa MA - 09/09/2024 8:59 AM EST 06/09/2024 Continue Lyrica 150mg PO TID for neuropathic pain [facility] reviewed. Last filled 05/17/2024 for 90 day supply. Due 08/15/2024 documented in this encounterMercy Hospital JoplinPsktmubyyv84-13-5711 NoteBellevue Office [facility]iology [facility] Note Reason for cardiology consult: Establish new hospice liaison, CAD, congestive heart failure, ascending aortic aneurysm Chief Complaint: Dyspnea on exertion HPI: Elise Tabor is a 64 y.o. male with history of coronary artery disease and coronary artery bypass surgery and maze procedure, paroxysmal atrial fibrillation, s/p ablation in [place], thoracic aortic aneurysm, left ventricle dysfunction, hypertension, hyperlipidemia COPD, prior tobacco and alcohol abuse He used to follow with [facility] cardiology. He states that overall he [...] EST [facility] 06/24/24 documented in this encounterSelect Medical [facility]11-21-2024 Telephone encounter Note* Telephone Encounter - Diana Munguia LPN - 07/29/2024 9:20 AM EST [facility] 06/24/24 [facility]10-17-2024 History of Present illness Narrative* Gillian Taylor [...] 65 mg by mouth daily with breakfast. flwtaorlcwh-emfaetcko-ucrzgnod (TRELEGY ELLIPTA) 200-62.5-25 mcg blister with device [...] atrial fibrillation despite the reported ablation in [place], continue on anticoagulation.We discussed this again today [...] History: Diagnosis Date Arthritis Ascending aortic aneurysm ([facility]-HCC) Atrial fibrillation ([facility]-HCC) Celiac disease COPD (chronic obstructive pulmonary disease) ([facility]-HCC) Coronary artery disease with history of coronary [...] Maze --WALTERS to the LAD 2015 in [place] 2. Cardiomyopathy -ischemic versus related to alcohol [...] LORENZO Referring Physician: Kacie Del Real MD [address] [place] [address] documented in this [facility]10-17-2024 Instructions* Patient Instructions* Gillian Taylor MD - 06/24/2024 2:00 PM EDT Laboratory studies CTA of the aorta Echocardiogram documented in this encounterThe MetroHealth SystemAvantra Biosciences [facility] [id number] Miscellaneous Notes* Telephone Encounter - Juana Hercules CMA - 06/23/2024 10:05 AM EDT Called patient to remind them to bring their most current copy of their medication list with them to their appt. Patient verbalizes understanding. [facility] Telephone encounter Note* Telephone Encounter - Juana Hercules CMA - 06/23/2024 10:05 AM EDT Called patient to remind them to bring their most current copy of their medication list with them to their appt. Patient verbalizes understanding. [facility] History of Present illness Narrative* GUILLERMO Abdul - 06/09/2024 11:20 AM EDT Subjective Elise Tabor is a 64 y.o. year old male Chief Complaint Patient presents with Back Pain Neck Pain Tremors Past Medical History: Diagnosis Date Anemia Atrial fibrillation ([facility]) Celiac disease ([facility]) 03/04/2019 Cervicalgia 04/08/2018 Chronic obstructive lung disease ([facility]) 01/22/2018 Chronic obstructive pulmonary disease (COPD) ([facility]) Coronary artery disease ([facility]) Emphysema of lung ([facility]) H/O hernia repair Headache in back of head 04/08/2018 Peripheral polyneuropathy 06/27/2023 Pneumonia Rheumatoid arthritis ([facility]) Sinus tachycardia 01/22/2018 Past Surgical [...] handles -admits hand weakness -some trouble with investigation officer ROS Review of Systems Constitutional: Negative for [...] triceps, wrist extensors, wrist extensors, wrist flexor, investigation officer strength 5/5. LUE Strength deltoid, biceps, triceps, wrist extensors, wrist extensors, wrist flexor, investigation officer strength 5/5. RLE Strength illopsoas, quadriceps, tibialis [...] new or worsening symptoms documented in this [facility]10-01-2024 History of Present illness Narrative* Vera Zuñiga MA - 06/08/2024 12:15 PM EDT Images from the original note were not included. Reason for Appointment: EMG Patient: Elise Tabor : 1960 EMG Computer: [employer] Referring Physician: Preet Bill PA-C EMG: [facility] residential caregiver: Vera Zuñiga CMA Office Location: [place] Reason for EMG: c/o pain and paresthesia in the arm from the shoulder down. No Hx of DM, takes Eliquis and ASA Comments: Procedure explained to the patient who expressed understanding. documented in this [facility]09-06-2024 Miscellaneous Notes* Telephone Encounter - Juana Hercules CMA - 05/14/2024 10:40 AM EDT Phoned pt to advise that appt scheduled for 05/17/2024 is the date that his EM will be sent out andis NOT an actual appt. Verbalized understanding. documented in this encounterSelect [facility] Telephone encounter Note* Telephone Encounter - Juana Hercules CMA - 05/14/2024 10:40 AM EDT Phoned pt to advise that appt scheduled for 05/17/2024 is the date that his EM will be sent out andis NOT an actual appt. Verbalized understanding. 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 Please advise. Thank you! 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 * Telephone Encounter - Emely Cantu [...] patient to call us back to review TRUST ADMINISTRATIVE ASSISTANT's response. documented in this encounterSelect [facility]24 Telephone encounter Note* Telephone Encounter - Ashlee Lim RN - 04/30/2024 10:24 AM EDT TRUST ADMINISTRATIVE ASSISTANT, Patient called and said that he has not been in a-fib since 2018 HX Coronary artery disease s/p CABG x 1 ([facility]) 2016 in [place] Paroxysmal atrial fibrillation (diagnosed in 1998); Maze at time of open heart surgery Thoracic aortic aneurysm, 47 mm 05/2022 Hypertension Frequent PVCs, 6% burden on most recent monitoring 06/2023 History of NSVT Chronic hypoxic respiratory failure COPD Patient said that Eliquis is not affordable for him and would like to know if since he has not beenin a-fib [facility], is there a chance he would be able to dc Eliquis at some point. Please advise. Thank you! 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 [facility]-23-[facility]24 Telephone encounter Note* Telephone Encounter - Emely [...] further. Would continue Eliquis in the meantime. [facility] [id number] Telephone encounter Note* Telephone Encounter - Ashlee Lim RN - 04/30/2024 10:24 AM EDT Amml asking patient to call us back to review TRUST ADMINISTRATIVE ASSISTANT's response. [facility] Diagnosis Carpal tunnel syndrome of left wrist- Primary documented in this encounter [facility] HealthcareEvaluation note* Diagnosis Degeneration of intervertebral disc of lumbar region with discogenic back pain and lower extremity pain- Primary Neck pain Cervicalgia Chronic daily headache Headache Tremor Abnormal involuntary movements documented in this encounter [facility] HealthcareEvaluation note* Diagnosis DDD (degenerative disc disease), lumbar Degeneration of lumbar or lumbosacral intervertebral disc Lumbosacral radiculopathy Thoracic or lumbosacral neuritis or radiculitis, unspecified documented in this encounter [facility] HealthcareEvaluation note* Diagnosis DDD (degenerative disc disease), lumbar Degeneration of lumbar or lumbosacral intervertebral disc Lumbosacral radiculopathy Thoracic or lumbosacral neuritis or radiculitis, unspecified documented in this encounter [facility] HealthcareEvaluation note* Diagnosis Coronary artery disease involving coronary bypass graft of three affiliated heart without angina pectoris Hx of CABG Postsurgical aortocoronary bypass status Paroxysmal atrial fibrillation (CMS-HCC) Atrial fibrillation Aneurysm of ascending aorta without rupture (CMS-HCC) History of maze procedure documented in this encounter [facility]* Diagnosis Coronary artery disease involving coronary bypass graft of three affiliated heart without angina pectoris Hx of CABG Postsurgical aortocoronary bypass status Paroxysmal atrial fibrillation (CMS-HCC) Atrial fibrillation Aneurysm of ascending aorta without rupture (CMS-HCC) History of maze procedure documented in this encounter [facility]* Diagnosis Coronary artery disease involving coronary bypass graft of three affiliated heart without angina pectoris Paroxysmal atrial fibrillation (CMS-HCC) Atrial fibrillation Aneurysm of ascending aorta without rupture (CMS-HCC) Hx of CABG 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 documented in this encounter [facility]* Diagnosis Coronary artery disease involving coronary bypass graft of three affiliated heart without angina pectoris- Primary Paroxysmal atrial fibrillation (CMS-HCC) Atrial fibrillation Primary hypertension Unspecified essential hypertension Mixed hyperlipidemia Left ventricular dysfunction Left heart failure documented in this encounter [facility] note* Diagnosis Coronary artery disease involving coronary bypass graft of three affiliated heart without angina pectoris Paroxysmal atrial fibrillation (CMS-HCC) Atrial fibrillation Aneurysm of ascending aorta without rupture (CMS-HCC) Hx of CABG 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 documented in this encounter [facility] note* Diagnosis Coronary artery disease involving coronary bypass graft of three affiliated heart without angina pectoris Hx of CABG Postsurgical aortocoronary bypass status Paroxysmal atrial fibrillation ([facility]-HCC) Atrial fibrillation Aneurysm of ascending aorta without rupture ([facility]-HCC) History of maze procedure documented [facility] this [facility]* Diagnosis DDD (degenerative disc disease), lumbar- Primary Degeneration of lumbar or lumbosacral intervertebral disc Lumbosacral radiculopathy Thoracic or lumbosacral neuritis or radiculitis, unspecified documented in this encounter [facility] HealthcareEvaluation note* Diagnosis Degeneration of intervertebral disc of lumbar region with discogenic back pain and lower extremity pain- Primary Lumbosacral radiculopathy Thoracic or lumbosacral neuritis or radiculitis, unspecified Neck pain Cervicalgia Tremor Abnormal involuntary movements Chronic daily headache Headache documented in this encounter [facility] Healthcare[facility]* Diagnosis Dysfunction of right eustachian tube- Primary Otorrhea of right ear Chronic anticoagulation Encounter for long-term (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 of 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 documented in this encounter [facility] HealthcareEvaluation note* Diagnosis Otorrhea of right ear- Primary Dysfunction of right eustachian tube Chronic anticoagulation Encounter for long-term (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 of 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 documented in this encounter [facility] HealthcareEvaluation noteNo assessment information availableOhiohealth Nelsonville Health Center Work Phone: Evaluation note* Diagnosis PVD (peripheral vascular disease) Unspecified peripheral vascular disease Other polyneuropathy Pain due to onychomycosis of toenails of both feet Paronychia, toe, left documented in this encounter [facility] HealthcareHistory of Present illness NarrativeMrLeyla Tabor is referred for consideration of LVRS. 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 He is on 3 L nasal cannula oxygen chronically. He is set to begin pulmonaryrehabilitation.[facility] CityL[facility] Work Phone: History of Present illness NarrativeMrLeyla Tabor is referred for consideration of LVRS. 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 He is on 3 L nasal cannula oxygen chronically. He is set to begin pulmonaryrehabilitation.[facility] Work Phone: History of Present illness NarrativeMrLeyla Tabor is referred for consideration of LVRS. 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 He is on 3 L nasal cannula oxygen chronically. He is set to begin pulmonaryrehabilitation.[facility] Work Phone: InstructionsNot on filedocumented [...] for referral (narrative)No reason for referral information availableOhiohealth Nelsonville Health Center Work Phone: Summary Purpose Family History [...] Aleyda Lackey MD [address] [place] [address] Referral IDStatusReasonStart DateExpiration DateVisits RequestedVisits [id number] Chief Complaint and Reason for Visit Chief [...] section and content) DATE CREATED AUTHOR 07/04/2018 [facility] DATE CREATED AUTHOR AUTHOR'S ORGANIZ ATION 06/09/2022 [facility] DATE CREATED AUTHOR AUTHOR'S ORGANIZ ATION 06/09/2022 [employer] DATE CREATED AUTHOR AUTHOR'S ORGANIZ ATION 02/14/2023 [facility] DATE CREATED AUTHOR AUTHOR'S ORGANIZ ATION 07/06/2024 [facility] DATE CREATED AUTHOR AUTHOR'S ORGANIZ ATION 06/16/2025 [facility] DATE CREATED AUTHOR AUTHOR'S ORGANIZ ATION 06/25/2025 [facility] DATE CREATED AUTHOR AUTHOR'S ORGANIZ ATION 07/02/2025 [facility] Care Teams (unrecognized sec tion and content) Team MemberRelationshipSpecialtyStart DateEnd Date iRsa Mcnulty NP [address] [facility] [address] Referring PhysicianFamily Medicine03/15/24Team MemberRelationshipSpecialtyStart DateEnd Date Risa Mcnulty NP [address] [place] [address] Referring PhysicianFamily Medicine03/15/24Team MemberRelationshipSpecialtyStart DateEnd Date Risa Mcnulty NP [address] [place] [address] Referring PhysicianFamily Medicine03/15/24Team MemberRelationshipSpecialtyStart DateEnd Date Risa Mcnulty NP [address] [facility] [place] [address] Referring PhysicianFamily Medicine03/15/24Team MemberRelationshipSpecialtyStart DateEnd Date Risa Mcnulty NP [address] [facility] [place] [address] Referring PhysicianFamily Medicine03/15/24Team MemberRelationshipSpecialtyStart DateEnd Date Kacie Del Real MD [address] [place] [address] PCP - GeneralFamily Medicine03/22/22Team MemberRelationshipSpecialtyStart DateEnd Date Kacie Del Real MD [address] [place] [address] PCP - GeneralFamily Medicine03/22/22Team MemberRelationshipSpecialtyStart DateEnd Date Kacie Del Real MD [address] [place] [address] PCP - Generalmily Medicine03/22/22am MemberRelationshipSpecialtyStart DateEnd Date Kacie Del Real MD [address] [place] [address] [facility]03/22/22am MemberRelationshipSpecialtyStart DateEnd Date Kacie Del Real MD [address] [place] [address] PCP - [facility] Medicine03/22/22Team MemberRelationshipSpecialtyStart DateEnd Date Risa Mcnulty, HANDLE MACHINE OPERATOR-CUSTODIAN MANAGER [address] [place] [address] PCP - Generalmily Qnsbkrdi55/17/24Team MemberRelationshipSpecialtyStart Date End Date Risa Mcnulty, HANDLE MACHINE OPERATOR-CUSTODIAN MANAGER [address] [place] [address] PCP - GeneralFamily Jqdqbzsa10/17/24Team MemberRelationshipSpecialtyStart Date End Date Risa Mcnulty, HANDLE MACHINE OPERATOR-CUSTODIAN MANAGER [address] [place] [address] PCP - GeneralFamily Ppmokmwp47/17/24Team MemberRelationshipSpecialtyStart Date End Date Risa Mcnulty, HANDLE MACHINE OPERATOR-CUSTODIAN MANAGER [address] [place] [address] PCP - GeneralFamily Uhqozizb98/17/24Team MemberRelationshipSpecialtyStart Date End Date Risa Mcnulty, ELECTRIC GOLF CART REPAIRER [address] [facility] [address] Referring PhysicianDodge County Hospital03/15/24Team MemberRelationshipSpecialtyStart DateEnd Date Risa Mcnulty NP [address] [place] [address] Referring PhysicianDodge County Hospital03/15/24Team MemberRelationshipSpecialtyStart DateEnd Date Risa Mcnulty NP [address] [place] [address] Referring PhysicianDodge [facility] Hospital03/15/24Team MemberRelationshipSpecialtyStart DateEnd Date Risa Mcnulty NP [address] [place] [address] Referring PhysicianDodge County Hospital03/15/24 Team Status: Active Member Role Status Dates Mario Zayas MD Primary Care Provider Active Team Status: Inactive Member Role Status Dates Danni Mccoy , HANDLE MACHINE OPERATOR-CUSTODIAN MANAGER-C Attending Provider Active Start: June 14, 2025 End: June 14, 2025Eduarda Brice Care ProviderActiveStart: June 14, 2025 End: June 14, 2025 Team Status: Inactive Member Role Status Dates Mario Zayas MD Attending Provider Active Sta rt: June 14, 2025 End: June 14, 2025Team MemberRelationshipSpecialtyStart DateEnd Date Mario Zayas MD [address] [place] [id number] PCP - [facility]06/23/25 Risa Mcnulty NP [address] [place] [address] Referring PhysicianDodge County Hospital03/15/24Team MemberRelationshipSpecialtyStart DateEnd Date Mario Zayas MD [address] [place] [id number] PCP - [facility]06/23/25 Risa Mcnulty NP [address] [place] [address] Referring PhysicianDodge County Hospital03/15/24 Reason for Visit (unrecogniz ed section and content) SpecialtyDiagnoses / ProceduresReferred By ContactReferred To ContactNeurology Diagnoses LUE EMG paresthesias of hand, numbness and tingling, ref by Wei Bill PACr20.2 Procedures VA NERVE CONDUCTION STUDIES 9-10 STUDIES VA NEEDLE EMG EA EXTREMTY W/PARASPINL [place] [address] [place] [address] Aleyda Lackey MD [address] [place] [address] Referral IDStatusReasonStart DateExpiration DateVisits RequestedVisits [id number] Perform Procedure [id number] PainNeck PainTremorsReasonCommentsMed RefillReasonOnset DateCommentsMed [id number] DateCommentsMed [id number]-upEST PT FU EM RESULTSReasonOnset Date Commentstransfering care11/25/2024ReasonOnset DateCommentsMed Yqopyd5312/20/2024 ReasonCommentsBack PainReasonCommentsEar Tube CheckRight ear painReasonComments Ear [...] BE BASED ON THE PRIMARY CLINICAL RECORDS. [facility] [employer] [facility]. provides no warranty or guarantee of the accuracy or completeness of information in this document.
[2025-07-18 14:03] LABS: Hematocrit 44.3 % (42.0-54.0); Hemoglobin 14.3 g/dL (14.0-18.0); Mean Corpuscular HGB Conc 32.3 g/dL (29.9-35.2); Mean Corpuscular Hemoglobin 32.3 pg (25.9-34.0); Mean Corpuscular Volume 100.0 fL (80.0-94.0); Platelet Count 168 10^3/uL (150-450); Red Blood Count 4.43 10^6/uL (4.70-6.10); White Blood Count 9.0 10^3/uL (4.0-11.0)
[2025-07-18 15:27] LABS: Band Neutrophils Absolute 0.1 10^3/uL (0.0-0.3); Basophils Abs Manual 0.09 10^3/uL (0.00-0.10); Basophils Percent Manual 1.0 % (0.2-2.0); Eosinophils Absolute Manual 0.00 10^3/uL (0.00-0.70); Eosinophils Percent Manual 0.0 % (0.9-7.0); Lymphocytes Absolute Manual 0.45 10^3/uL (1.20-3.80); Lymphocytes Percent Manual 5.0 % (20.5-60.0); Monocytes Absolute Manual 0.45 10^3/uL (0.30-0.80); Monocytes Percent Manual 5.0 % (1.7-12.0); Segmented Neut Absolute Manual 7.92 10^3/uL (1.4-6.5); Segmented Neutrophils % Manual 88.0 (43.0-75.0)
== END 2025-07-18 13:42 | disposition home or self-care (01) ==
LOC: LAB 13:42
PROVIDERS: PCP Family Medicine; Visit Provider Family Medicine
DX: D69.6 Thrombocytopenia, unspecified (principal); I10 Essential (primary) hypertension
CPT/HCPCS: 36415; 85007; 85027

== ENCOUNTER 2025-07-21 09:40 | Outpatient (OUT) | payer MEDICARE, SELFPAY ==
--- OUTSIDE RECORDS SUMMARY | 2012-03-06 04:34 | XMS_ITS | Continuity of Care Document ---
Author Organization [facility] Address [address] [place] [address] [place] [address] Phone Care Team Providers Care Burner Operator Name Role Phone JUAN FINK MD Unavailable [...] on Encounter [facility], [address] [place] [address], [address] [place] [address], tel:[phone] [facility] No Information 2 DANAE MARTINEZ. [address] [place] [address], [address] [place] [address], . tel:[phone] [facility], [address] [place] [address], [address] [place] [address], tel:[phone] [facility] No Information 2 DANAE MARTINEZ. [address] [place] [address], [address] [place] [address], . tel:[phone] Offic/outpt E&m Estab Minor 10 [facility], [address] [place] [address], [address] [place] [address], tel:[phone] [facility] No Information 1 DANAE MARTINEZ. [address] [place] [address], [address] [place] [address], . tel:[phone] [facility], [address] [place] [address], [address] [place] [address], tel:[phone] [facility] No Information 1 DANAE MARTINEZ. [address] [place] [address], [address] [place] [address], . tel:[phone] [facility], [address] [place] [address], [address] [place] [address], tel:[phone] [facility] No Information Oct-0 3-201 1 DANAE LEALPELONLAKEISHA. [address] [place] [address], [address] [place] [address], . tel:[phone] [facility], [address] [place] [address], [address] [place] [address], tel:[phone] [facility] No Information Sep-2 2-201 1 BERYL ABBOTT. [address] [place] [address], [address] [place] [address], . tel:[phone] Referring Provider: Nigel Carvajal, [address] [place] [address], [facility]. tel:[phone] [facility], [address] [place] [address], [address] [place] [address], tel:[phone] [facility] No Information Sep-2 1-201 1 PANDA IBRAHIM. [address] [place] [address], [address] [place] [address], . tel:[phone] Referring Provider: Nigel Carvajal, [address] [place] [address], [facility]. tel:[phone] [facility], [address] [place] [address], [address] [place] [address], tel:[phone] [facility] No Information Sep-0 7-201 1 Samreen Ochoa. [address] [place] [address], [address] [place] [address], . tel:[phone] Referring Provider: Nigel Carvajal, [address] [place] [address], [facility]. tel:[phone] Offic/outpt E&m Estab Low-mod [facility], [address] [place] [address], [address] [place] [address], tel:[phone] [facility] No Information Oct-0 8-200 9 BERYL ABBOTT. [address] [place] [address], [address] [place] [address], . tel:[phone] Offic/outpt E&m Estab Low-mod [facility], [address] [place] [address], [address] [place] [address], tel:[phone] [facility] No Information Nov-2 6-200 7 KIBILOSÁLVARO MILENA. [address] [place] [address], [address] [place] [address], . tel:[phone] [facility], [address] [place] [address], [address] [place] [address], tel:[phone] [facility] No Information 5-200 7 KIBILOSKI MILENA. [address] [place] [address], [address] [place] [address], [place]. tel:[phone] [facility], [address] [place] [address], [address] [place] [address], tel:[phone] [facility] No Information Dec-0 4-200 6 KIBILOSÁLVARO MILENA. [address] [place] [address], [address] [place] [address], . tel:[phone] [facility], [address] [place] [address], [address] [place] [address], tel:[phone] [facility] In Patient No Information 7-200 6 KIBILOSÁLVARO MILENA. [address] [place] [address], [address] [place] [address], . tel:[phone] [facility], [address] [place] [address], [address] [place] [address], tel:[phone] [facility] No Information January-2 5-200 6 KIBILOSÁLVARO MILENA. [address] [place] [address], [address] [place] [address], [place]. tel:[phone] Referring Provider: Jaquan Dowell, [address] [place], [place], [facility]. tel:[phone] [facility], [address] [place] [address], [address] [place] [address], tel:[phone] [facility] No Information Oct-0 2-200 3 KIBILOSKI MILENA. [address] [place] [address], [address] [place] [address], [place]. tel:[phone] [facility], [address] [place] [address], [place], [place], [id number], [place] tel:[phone] [facility] No Information No Information Family History Family Member Type Diagnosis Age At Onset No Information Payers Payer name Insurance type Covered green party ID Saleem ya(s) [facility] [id number] Medicare Part B [id number] Social History Type Description Quantity Date Captured Comments Sex Male Smoking Status No Information Chief Complaint And Reason For Visit No Information Reason For Referral Reason For Referral No Information Plan Of Treatment Date Type Action Status Future Order: Lab Order Cervical W/o Contrast ([id number]), Appointment on: , Sent on: Sent Future Order: Lab Order L Spine 3VW w/spot ([id number]), Sent on: Sent Future Order: Lab Order Thoracic Spine 2VW ([id number]), Sent on: Sent Future Order: Lab Order C Spine 2VW ([id number]), Sent on: Sent Future Order: Lab Order Lumbar W /o Contrast ([id number]), Appointment on: , Sent on: Sent Future Order: Lab Order Thoracic W/o Contrast ([id number]), Appointment on: , Sent on: Sent Future Order: Lab Order Hip 2 VW Left ([id number]), Sent on: Sent History Of Present Illness Encounter Date Complaint History Of Prese nt Illness No Information Functional Status Date Functional Assessmen t No Information Instructions Date Instruction Additional Infor mation No Information Assessments Type Assessment Date No Information Patient Care Teams Name Effective Dates (start - stop) Status Members No Information
--- OUTSIDE RECORDS SUMMARY | 2025-07-13 08:00 | XMS_ITS | Encounter Summary ---
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 Patient is currently on 5L O2 at home. DME. [facility]. Patient states his breathing has worsened since his last visit. Patient is using Trelegy , Prednisone and Azithromycin daily. 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; shelter (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 of inhaled steroids Social History Tobacco UseTypesPacks/DayYears UsedDateSmoking Tobacco: [id number] - 2012Smokeless Tobacco: Never Tobacco Cessation:Counseling Given: Not Answered Alcohol UseStandard Drinks/WeekCommentsNot Currently0 (1 standard drink = 0.6 oz pure alcohol)Sex and Gender InformationValueDate RecordedSex Assigned at Male07/13/2025 7:55 AM ESTLegal MhqKrqt70/07/2025 3:18 PM EDTGender IdentityNot on fileSexual OrientationNot on filedocumented as of this encounter Last Filed Vital Signs Vital SignReadingTime TakenCommentsBlood Qeoswqzp350/7407/13/2025 8:06 AM EST Lkxqw342607/13/2025 8:06 AM HWCXosaxzkjqfv38.1 ??C (97 ??F)07/13/2025 8:06 AM EST Respiratory Loxe0176 8:06 AM ESTOxygen Orairwtyck13%07/13/2025 8:06 AM EST5L W0Kkkvkcu Oxygen Concentration--Hqbgzc311.4 kg (247 lb 12.8 oz)07/13/2025 8:06 AM XFXZmnbom893.7 cm (5' 8 )07/13/2025 8:06 AM ESTBody Mass Index37.68 07/13/2025 8:06 AM ESTdocumented in this encounter Patient Instructions * Patient Instructions* Hu Bunn DO - 07/13/2025 8:50 AM EST Use your back massager twice a day. Continue all other medications as prescribed. If you feel worse, contact the office, or if really bad, call 911/go to ER. documented in this encounter Progress Notes * Hu Bunn DO - 07/13/2025 8:23 AM EST Images from the original note were not included. Date of encounter: 07/13/25 Nikunj Causey 1960 (65 y.o.) [address] [facility] [place] [address] Nikunj Causey was seen today in the office by me. Below is my assessment and plan of the patient: Assessment & Plan Centrilobular emphysema Patient has end-stage O2- and prednisone-dependent COPD. He continues to slowly decline, with increased [place] and more productive cough. I once again reviewed available options for him: -Dupixent -Ohtuvayre -Endobronchial valves -Lung-transplantation He continues to refuse these options. He states he does not want to suffocate or be short of breath, but he is not ready for Hospice. I have nothing left to offer from a dyspnea standpoint. I broughtup increasing the prednisone dose, but he declined that. We discussed his increased mucus production. There is no history of prior CT chest of bronchiectasis. He is already using Mucinex and sodium chloride nebs twice daily. He is on 0.9% concentration - this could be increased to 3%. He does not have a PEP device - I explained they are not covered by Medicare and can cost up to $100. In order for insurance to cover a vest device, a PEP must be used. For now, the patient stated he is fine with what he is doing. I suggested he continue using the massager as it is functioning in a similar manner as a vest device. At this time, will continue the current therapy without any changes. He was advised to contact the office with any problems or concerns. Orders: albuterol sulfate HFA (PROVENTIL;VENTOLIN;PROAIR) 108 (90 Base) MCG/ACT inhaler; Inhale 1 puff intothe lungs every 4 hours as needed for Shortness of Breath azithromycin (ZITHROMAX) 250 MG tablet; Take 1 tablet by mouth daily ipratropium 0.5 mg-albuterol 2.5 mg (DUONEB) 0.5-2.5 (3) MG/3ML SOLN nebulizer solution; Take 3 mLsby nebulization every 4 hours predniSONE (DELTASONE) 10 MG tablet; Take 1 tablet by mouth daily Roflumilast (DALIRESP) 500 MCG tablet; Take 1 tablet by mouth daily theophylline (THEODUR) 300 MG extended release tablet; Take 1 tablet by mouth 2 times daily cbczlvlwvpc-gvvjkmger-thbzcp (TRELEGY ELLIPTA) 200-62.5-25 MCG/ACT AEPB inhaler; Inhale 1 puff intothe lungs daily sodium chloride nebulizer 0.9 % solution; Take 3 mLs by nebulization 2 times daily ISABEL (obstructive sleep apnea) A ywrp-yz-qvwe encounter was performed with the patient today in order to document continued need for positive airway pressure (PAP). -Current DME: [employer] -Split night 11/10/2024: AHI 61, Titration 16/12 with 5L/min O2 bleed-in -Compliance was reviewed from 06/13/2025 to 07/12/2025 -Total days used: 30 (100%) days -Total days of use >4 hours: 30/ (100%) days -Current model: AirCurve 10 VAuto -Current mode & pressures: BiPAP @ 16/34goA4H -Residual AHI: 0.5 -Median air leak: 6.1L/min -Mask/harness fitting: Well, no issues -Sleep quality with PAP: Less restless sleep -Residual daytime hypersomnolence: Decreased with use -Recommendations: Superb compliance. No issues with pressures, mask, leak, etc. Only concern is increased humidity with feeling of drowning. He is at the highest humidity setting 8 . Unclear why it is precipitating more than before. I personally reviewed his [employer] account and adjusted the setting down to 6 . Patient was instructed to use the lower setting tonight and see if the humidity is reduced without contributing to dry mouth. If he is too dry, he was instructed to increase it to 7 to begin. Otherwise, no changes to his settings today. -This documentation authorizes that the patient's DME may request to renew, reorder, and/or replacetubing, mask, filter, any other associated supplies, and the PAP device (if applicable). Chronic respiratory failure with hypoxia A ctms-zp-dbtk encounter was performed with the patient today in order to document continued need for supplemental O2. -Flow & directions: 3-4L/min O2 ATC, uses POC with ambulation from 3-5L/min, BiPAP 5L/min O2 bleed-in -The patient voices adherence to recommended usage: Yes -The patient voices benefit/symptom control on O2: Yes -The patient was counseled patient not begin, restart, or continue smoking due to risk of fire which could result in damage to the O2 tanks & tubing, smoke inhalation and flame damage to the airway, significant truong, property damage, , and potential harm & to bystanders. Additionally, the patient was counseled against beginning, restarting, or continuing to smoke given the unde rlying pulmonary disease that led to the point of requiring O2. -Recommendations: SpO2 is good at rest today @ 92% on 5L/min. However, he continues to desaturate with activity, which he blames in part to not enough flow for his tubing (as flow decreases directly proportional to length). I explained the main concern about having a higher flow is that when he is in an inactive state, he will consume less O2 - with the higher flow, there will be increased FiO2 which can raise SpO2 beyond goal 92% increasing the risk of acute hypercapnia. We can attempt to lookinto higher flow devices, but with [employer], it may be difficult to receive anything from them. -This documentation authorizes the renewal, reorder/refill, and replacement of O2 and all associated supplies. Chronic respiratory failure with hypercapnia ABG 10/27/2024: pH: 7.34, pCO2: 59.3, pO2: 72.9, SaO2: 94%, FiO2: 3L/min Continue BiPAP which will assist in an NIV capacity. Goal SpO2 88-92% to avoid hyperoxic-induced hypercapnia. History of tobacco abuse The patient was evaluated for low-dose CT (LDCT) for lung cancer screening. Current Medicare-accepted eligibility criteria were reviewed. - Age 50-77 years: Patient's age = 65 y.o. - Asymptomatic (no signs or symptoms of lung cancer): Yes - Tobacco Use Smoking status: Former Packs/day: 0.00 Years: 2.0 packs/day for 35.0 years (70.0 ttl pk-yrs) Types: Cigarettes Start date: 1976 Quit date: 2011 Years since quittin.8 Smokeless tobacco: Never Based on the above, he is a candidate for LDCT screening. LDCT screening was strongly recommended. Shared decision-making was made with him. He voiced in the negative to proceed with LDCT screening. He voiced he did not want anything done. The patient was advised if there is reconsideration tocontact the office about ordering LDCT. History of asbestos exposure History of asbestos exposure associated with brake pads. No CT chest evidence of asbestos. shelter (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 of systemic steroids Discussed with the patient adverse effects of intermediate manager systemic steroids including, but not limited to: elevated blood sugars / impaired glucose control / worsening of development of diabetes mellitus, increased risk of cataracts, impaired wound healing, gastrointestinal ulcers, weight gain, and osteporosis. technician terminal and repeater (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 of inhaled steroids The patient was counseled to rinse and gargle after use of his steroid- containing inhaler to reducethe risk of oral candidiasis and other potential adverse effects. Planned follow-up: Return in about 3 months (around 10/13/2025) for COPD, respiratory failure. Data: Alpha-1 Antitrypsin Screening Date: 04/10/2022 Genotype: MM PFT 04/26/2022 -FEV1/FVC: 31% -FEV1: 22% -FVC: 54% -Bronchodilator response: Positive -RV: 204% -T% -DLCO: 40% -Flow-volume loop: Very severe obstruction 04/20/2018 -FEV1/FVC: 71% -FEV1: 34% -FVC: 62% -Bronchodilator response: Positive -RV: 232% -T% -DLCO: 51% -Flow-volume loop: Severe obstruction Subjective: Nikunj Causey was previously established with me at [facility] and is now establishing with me at [facility]. He was last seen by me on 03/23/2025. His records from [facility] were reviewed. He has end-stage COPD, prednisone- and O2- dependent. Since last seen nearly 4 months ago, he voiced that his breathing continues to decline despite multiple treatments. ~2 weeks ago, it was severe enough he almost went to the ER to see if I had pneumonia. He was using his bronchodilators 6+ times a day. He states he is now recovering, but still not at prior baseline. Major complaint is excessive mucus production- it is difficult for him to expectorate. He is using saline nebs twice daily. He does not have a PEP or vest, but he has a back massager he uses at least once a day for ~20 minutes - he said this helps. He is asking about increasing the flow of O2 to 10L/min on his home unit to allow him more mobility. His tubing stretches out to 75 feet, which he states at that distance his current flow (5L/min) decreases and he easily desaturates into the 80's. He is doing well with BiPAP. Compliance was reviewed - it is superb. He states he cannot sleep without the BiPAP. Only complaint is that he feels he is drowning as of late. I asked what his humidity is set at, and it is 8 which is the highest. I asked why he did not turn it down, he said he didnot want to dry out. This is a newer issue - he has not had this in the past. Review of systems: Review of Systems Constitutional: Positive for fatigue. HENT: Negative for sore throat. Respiratory: Positive for cough (daily productive cough), shortness of breath and wheezing. Cardiovascular: Negative for chest pain. Neurological: Positive for weakness. Psychiatric/Behavioral: Negative for sleep disturbance (managed by BiPAP). Exam: BP 132/74 (BP Site: Left Upper Arm, Patient Position: Sitting, BP Cuff Size: Large Adult) Pulse 73 Temp 97 ??F (36.1 ??C) (Infrared) Resp 20 Ht 1.727 m (5' 8 ) Wt 112.4 kg (247 lb 12.8 oz) SpO2 92% Comment: 5L O2 BMI 37.68 kg/m?? Physical Exam Constitutional: Comments: Chronically ill-appearing. Has good color today. HENT: Nose: Comments: Wearing nasal cannula. Mouth/Throat: Mouth: Mucous membranes are moist. Pharynx: Oropharynx is clear. Comments: Mallampati III Cardiovascular: Rate and Rhythm: Normal rate and regular rhythm. Pulmonary: Comments: Increased A-P diameter. Breathing non-labored. Very diminished breath sounds. No wheezes,crackles, or rhonchi. 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 Behavior: Behavior normal. Medical history: Past Medical History: Diagnosis Date CAD (coronary artery disease) Cardiomyopathy, ischemic 08/16/2024 Carpal tunnel syndrome, left 07/13/2025 Celiac disease 08/16/2024 Centrilobular emphysema Chronic respiratory failure with hypercapnia Chronic respiratory failure with hypoxia Chronic systolic congestive heart failure GERD (gastroesophageal reflux disease) History of asbestos exposure History of tobacco abuse HLD (hyperlipidemia) HTN (hypertension) IgA deficiency ISABEL (obstructive sleep apnea) PAF (paroxysmal atrial fibrillation) Peripheral polyneuropathy 08/16/2024 Thoracic aortic aneurysm without rupture 05/20/2022 Thrombocytopenia 07/13/2025 Past Surgical History: Procedure Laterality Date AMPUTATION OF REPLICATED FINGERS CATARACT REMOVAL CORONARY ARTERY BYPASS GRAFT HERNIA REPAIR SHOULDER ARTHROPLASTY Right TOTAL HIP ARTHROPLASTY Bilateral No Known Allergies Current Outpatient Medications Medication Sig Dispense Refill ASPIRIN 81 PO Take 1 tablet by mouth daily acetaminophen (TYLENOL) 500 MG CAPS capsule Take 1 capsule by mouth every 6 hours as needed albuterol (PROVENTIL) (5 MG/ML) 0.5% nebulizer solution Take 0.5 mLs by nebulization every 6 hours as needed for Shortness of Breath or Wheezing ELIQUIS 5 MG TABS tablet Take 1 tablet by mouth 2 times daily vitamin C (ASCORBIC ACID) 500 MG tablet Take 1 tablet by mouth daily OXYGEN Inhale into the lungs continuous atorvastatin (LIPITOR) 80 MG tablet Take 1 tablet by mouth daily Cholecalciferol 50 MCG (2000 UT) TABS Take 1 tablet by mouth daily dapagliflozin (FARXIGA) 10 MG tablet Take 1 tablet by mouth every morning Ferrous Sulfate 90 (18 Fe) MG TABS Take 1 tablet by mouth daily guaiFENesin (MUCINEX) 600 MG extended release tablet Take 1 tablet by mouth 2 times daily lisinopril (PRINIVIL;ZESTRIL) 5 MG tablet Take 1 tablet by mouth daily [place] 500 MG CAPS Take 1 capsule by mouth daily meloxicam (MOBIC) 15 MG tablet Take 1 tablet by mouth daily metoprolol succinate (TOPROL XL) 50 MG extended release tablet Take 1 tablet by mouth daily nitroGLYCERIN (NITROSTAT) 0.[address] 1 tablet under the tongue every 5 minutes as needed Potassium Gluconate 595 (99 K) MG TABS Take 1 tablet by mouth daily pregabalin (LYRICA) 150 MG capsule Take 1 capsule by mouth in the morning, at noon, and at bedtime. Saw [place] 450 MG CAPS Take 1 capsule by mouth daily topiramate (TOPAMAX) 50 MG tablet Take 1 tablet by mouth daily zinc 50 MG TABS tablet Take 1 tablet by mouth daily pantoprazole (PROTONIX) 20 MG tablet Take 1 tablet by mouth daily albuterol sulfate HFA (PROVENTIL;VENTOLIN;PROAIR) 108 (90 Base) MCG/ACT inhaler Inhale 1 puff into the lungs every 4 hours as needed for Shortness of Breath 54 g 4 azithromycin (ZITHROMAX) 250 MG tablet Take 1 tablet by mouth daily 90 tablet 4 ipratropium 0.5 mg-albuterol 2.5 mg (DUONEB) 0.5-2.5 (3) MG/3ML SOLN nebulizer solution Take 3 mLs by nebulization every 4 hours 1620 mL 4 predniSONE (DELTASONE) 10 MG tablet Take 1 tablet by mouth daily 90 tablet 4 Roflumilast (DALIRESP) 500 MCG tablet Take 1 tablet by mouth daily 90 tablet 4 theophylline (THEODUR) 300 MG extended release tablet Take 1 tablet by mouth 2 times daily 180 tablet 4 xcnkmelqxpd-xirhwmajk-wptzhq (TRELEGY ELLIPTA) 200-62.5-25 MCG/ACT AEPB inhaler Inhale 1 puff into the lungs daily 180 each 4 sodium chloride nebulizer 0.9 % solution Take 3 mLs by nebulization 2 times daily 540 mL 4 No current facility-administered medications for this visit. There is no immunization history on file for this patient. Social History Tobacco Use Smoking status: Former Current packs/day: 0.00 Average packs/day: 2.0 packs/day for 35.0 years (70.0 ttl pk-yrs) Types: Cigarettes Start date: 1976 Quit date: 2011 Years since quittin.8 Smokeless tobacco: Never Substance Use Topics Alcohol use: Not Currently Family History Problem Relation Age of Onset Hypertension Mother Breast Cancer Mother Heart Disease Father Hypertension Sister On this date 07/13/2025 I have spent 45 minutes reviewing previous notes, test results and face to face with the patient discussing the diagnosis and importance of compliance with the treatment plan as well as documenting on the day of the visit. An electronic signature was used to authenticate this note. -Hu Bunn DO, PharmD, FACOI documented in this encounter Plan of Treatment DateTypeDepartmentCare Team (Latest Contact Info)Wevpdzsegmh30/03/2026 10:00 AM ESTOffice Visit [facility] [address] [place] [address] 6 [place] [address] Hu Bunn DO [address] [place] [address] 3 [place] F/U for COPD, respiratory failure.documented as of this encounter Visit Diagnoses Diagnosis Centrilobular emphysema- Primary Other emphysema ISABEL (obstructive sleep apnea) Obstructive sleep apnea (adult) (pediatric) Chronic respiratory failure with hypoxia Chronic respiratory failure Chronic respiratory failure with hypercapnia Chronic respiratory failure History of tobacco abuse Personal history of tobacco use, presenting hazards to health History of asbestos exposure Personal history of contact with and (suspected) exposure to asbestos shelter (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 of systemic steroids 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
--- OUTSIDE RECORDS SUMMARY | 2025-07-21 09:44 | XMS_ITS | Clinical Summary ---
Author Organization [facility] Address [address] [place] [address] Care Team Providers Care Entertainment Musician Name Role Phone Pauly Santacruz JET PILOT Unavailable Mario Zayas MD Primary Care Provider [phone] Allergies Active AllergyReactionsCriticalityNoted DateCommentsGluten MealGI intoleranceLow 05/08/2022Isosorbide RthtsxpNfopskcdZyu17/14/2022 Medications MedicationSigDispense QuantityRefillsLast FilledStart DateEnd DateStatus albuterol [...] Inhale 3 mL5Active Active Problems ProblemNoted DateDiagnosed TdorAytyvssunu23/14/2024DD (degenerative disc disease), azouvm9301/20/2024 Overview (01/20/2024): The patient is a 62 [...] has had no benefit with gabapentin increase. Cginkktmyqf52/14/2024oronary artery disease involving coronary bypass graft of havas[place]ai heart without angina shyhaadm89/12/2022History of maze procedure 05/20/2022Hx of CABG05/20/2022aroxysmal atrial cmgslqcczxmi66/12/2022Thoracic aortic aneurysm without pmqonll9105/20/2022 Resolved Problems ProblemNoted DateDiagnosed DateResolved DateCentrilobular fyaunrvro69/18/2025 2025 Overview (2025): Noted by [facility] last documented on 20241027 Hypertensive heart disease with heart Overview (2025): Noted by [facility] last documented on 20241001 Chronic rsjcmobafipxyvr22hronic systolic heart failure Erectile rthvmzhasez83ardiomyopathy, ovmwvayf03lass 2 severe obesity due to excess calories with serious comorbidity and body mass index (BMI) of35.0 to 35.9 in adult08/16/2024 2025Pain in wristPure rgakgvdnettysfmpspsz60/09/2024 03/25/20259860Ueejpxmug51Mixed krxtioqoghysee55 Primary nwgzfiilwuwq74Peripheral nlteyluwblaxzr70/20/2023 06/27/2023eliac dbcenzw85ervicalgia Headache in back of headhronic obstructive lung disease Sinus uegisxrpikj93 Encounters DateTypeDepartmentCare GhvkUgvkpndhojj83/29/2025bstract [facility] [address] [place] [address] Yuri Rowe DPM 07/06/2025bstract [facility] [address] [place] [address] Yuri Rowe DPM 06/23/2025 9:30 AM EDTOffice Visit [facility] [address] [place] [address] Yuri Rowe DPM PVD (peripheral vascular disease); Other polyneuropathy; Pain due to onychomycosis of toenails of both feet; Paronychia, toe, left06/23/2025amboo flowsheet [facility] [address] [place] [address] Yuri Rowe DPM 06/23/2025Travelfrom Last 3 Months Immunizations ImmunizationAdministration DatesNext DueInfluenza, High Dose Seasonal, Preservative Free05/23/2021Influenza, injectable, MDCK, preservative free, udkjasbdfgsw91/06/2023fizer Purple Cap SARS-CoV-2 Dcvqkylwvns12/17/2021, 09/20/2020Tdap110/14/2022 Family History Medical HistoryRelationNameCommentsHeart diseaseFatherCancerMotherHeart disease MotherHypertensionMotherDiabetesSiblingRelationNameStatusCommentsFatherMother SiblingAlive Social History Tobacco UseTypesPacks/DayYears UsedDateSmoking Tobacco: JnirgqQbucedwqwm711 09/08/1974 - 09/08/2009Smokeless Tobacco: Never Tobacco Cessation:Counseling Given: Yes Alcohol UseStandard Drinks/WeekCommentsNever0 (1 standard drink = 0.6 oz pure alcohol)ocassionallySex and Gender InformationValueDate RecordedSex Assigned at DqaocDfnn20/16/2023 9:38 AM EDTLegal YigAwya9402/06/2023 9:13 AM EDTGender AqiwepgbMusj34/16/2023 9:38 AM EDTSexual OrientationNot on file Last Filed Vital Signs Vital SignReadingTime TakenCommentsBlood Bgwqmhwr158/8204 10:42 AM EDT Bxvee235012/27/2024 10:42 AM EDTTemperature--Respiratory Bgli9414 9:50 AM EDTOxygen Wjbzsfeqvn89%12/27/2024 10:42 AM EDTInhaled Oxygen Concentration-- Zknsuu127 kg (250 lb)06/23/2025 9:50 AM YTPKhnazt330.8 cm (5' 10 )06/23/2025 9:50 AM EDTBody Mass Index35.8706/23/2025 9:50 AM EDT Plan of Treatment DateTypeDepartmentCare Team (Latest Contact Info)Sgwjctvqadq41/13/2025 4:40 PM ESTOffice Visit [facility] [address] [place] [address] Yuri Rowe DPEdison [address] [address] 09/15/2025 10:50 AM ESTProcedure Visit [facility] [address] [facility] [address] [place] [address] Yuri Rowe DPM [address] [address] 10/17/2025 10:15 AM ESTOffice Visit [facility] [address]ust[address] [place] [address] Tree Carmona, DO [address] [place] [address] Insurance Care Teams Team MemberRelationshipSpecialtyStart DateEnd Date Mario Zayas MD [address] [place] [phone] PCP - GeneralFamily Fhenzhvn92/16/25 Pauly Santacruz NP [address] [place] [address] Referring PhysicianFamily [facility]03/15/24
--- OUTSIDE RECORDS SUMMARY | 2025-07-21 09:45 | XMS_ITS | Clinical Summary ---
Author Organization [facility] Address [address] [facility], [address] [place] [address] Care Team Providers Care Thread Drawer Name Role Phone Mario Zayas MD Primary Care Provider [phone] Allergies No known active allergies Medications MedicationSigDispense [...] tablet Take 1 tablet by mouth every zswkywq12/05/2025Active Ferrous Sulfate 90 (18 Fe) MG TABS [...] under the tongue every 5 minutes as whesxo434Active Potassium Gluconate 595 (99 K) MG TABS Take 1 tablet by mouth dailyActive pregabalin (LYRICA) 150 MG capsule Take 1 capsule by mouth in the morning, at noon, and at bedtime.12/20/2024tive Saw [place] 450 MG CAPS Take 1 capsule by [...] mouth 2 times daily 180 tablet 5Active jmgshrutymj-ixldjyhzf-ycobye (TRELEGY ELLIPTA) 200-62.5-25 MCG/ACT AEPB inhaler Indications:Centrilobular emphysema (HCC)Inhale 1 puff into the lungs daily 180 each 5Active sodium chloride nebulizer 0.9 % solution Indications:Centrilobular emphysema (HCC)Take 3 mLs by nebulization 2 times daily 540 mL 5Active albuterol sulfate HFA (PROVENTIL;VENTOLIN;PROAIR) 108 (90 Base) MCG/ACT inhaler Inhale 1 puff into the lungs every 4 hours as omiscp7907/13/2025Discontinued (REORDER) azithromycin (ZITHROMAX) 250 MG tablet Take [...] Inhale 3 mLs into the lungs as cfsucp52Discontinued(REORDER) theophylline (THEODUR) 300 MG extended release tablet [...] oral candidiasis and other potential adverse effects. 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 styqijoq81/05/2025 Assessment & Plan (07/13/2025 9:31 AM EST): Discussed with the patient adverse effects of alf systemic steroids including, but not limited to: [...] 1 tablet by mouth 2 times daily jtckdhrixzo-bdkhsvast-buzjhr (TRELEGY ELLIPTA) 200-62.5-25 MCG/ACT AEPB inhaler; Inhale 1 puff intothe lungs daily sodium chloride nebulizer 0.9 % solution; Take 3 mLs by nebulization 2 times daily ISABEL (obstructive sleep apnea) Assessment & Plan (07/13/2025 10:56 AM EST): A fsei-vw-qoiq encounter was performed with the patient today [...] VAuto -Current mode & pressures: BiPAP @ 16/08vaT2D -Residual AHI: 0.5 -Median air leak: 6.1L/min [...] & Plan (07/13/2025 10:56 AM EST): A efja-xi-qkmv encounter was performed with the patient today [...] CT chest evidence of asbestos. 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; detention (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 of inhaled steroidsfrom Last 3 Months Family History Medical HistoryRelationNameCommentsHeart DiseaseFatherBreast CancerMother HypertensionMotherHypertensionSisterRelationNameStatusCommentsFatherMotherSister Social History Tobacco UseTypesPacks/DayYears UsedDateSmoking Tobacco: YrtninMvenonyoyp9252548 - 2012Smokeless Tobacco: Never Tobacco Cessation:Counseling Given: Not Answered Alcohol UseStandard Drinks/WeekCommentsNot Currently0 (1 standard drink = 0.6 oz pure alcohol)Sex and Gender InformationValueDate RecordedSex Assigned at Male07/13/2025 7:55 AM ESTLegal QkoNakp59/07/2025 3:18 PM EDTGender IdentityNot on fileSexual OrientationNot on file Last Filed Vital Signs Vital SignReadingTime TakenCommentsBlood Sgfhfres121/7407/13/2025 8:06 AM EST Kgxhs325207/13/2025 8:06 AM OSRWwnlnjfhwjt47.1 ??C (97 ??F)07/13/2025 8:06 AM EST Respiratory Xjlf2254 8:06 AM ESTOxygen Dskmmikbsg55%07/13/2025 8:06 AM EST5L I0Uahcoak Oxygen Concentration--Rwbqpt715.4 kg (247 lb 12.8 oz)07/13/2025 8:06 AM SZCUlmpqa199.7 cm (5' 8 )07/13/2025 8:06 AM ESTBody Mass Index37.68 07/13/2025 8:06 AM EST Plan of Treatment DateTypeDepartmentCare Team (Latest Contact Info)Mejxcutslit86/03/2026 10:00 AM ESTOffice Visit [facility] [address] [place] [address] [address] [place] [address] [place] [address] [place] [address] [address] [place] [address] 3 MO F/U for COPD, respiratory failure.Health MaintenanceDue DateLast Done IbtpzevuZirzgl62/18/1970Depression Ulxksw6103/25/1972HIV ihhzti9403/25/1975Hepatitis C huqqcb1903/25/1978Pneumococcal 50+ years Vaccine (1 of 2 - PCV)1979 Diabetes prpjlq2303/25/19956277Mleqodjcpfq98/18/2005Colorectal Cancer Kgowss4203/25/2005 FIT/FOBT: Average risk2005Fecal-DNA (Cologuard): Average risk2005 Sigmoidoscopy/CT odbosyetsrfv33/18/2005Shingles vaccine (1 of 2)2010 Respiratory Syncytial Virus (RSV) or age 60 yrs+ (1 - Risk 60-74 years 1-dose series)2020Lung Cancer Screening &/or Gvnmctzqjt98/19/2023 12/25/2021AA vdmnzp4003/25/2025Flu vaccine (#1)5110/14/2022, 05/23/2021 COVID-19 Vaccine (3 - [...] DateEnd Date Mario Zayas MD [address] [place] [address] PCP - [facility]06/14/25
--- OUTSIDE RECORDS SUMMARY | 2025-07-21 09:45 | XMS_ITS | Clinical Summary ---
Author Organization [facility] Address [address] [place] [address] Phone Care Team Providers Care Online Trader Name Role Phone Unavailable Primary Care Provider Unavailabl e Social History Tobacco UseTypesPacks/DayYears UsedDateSmoking Tobacco: Never AssessedSex and Gender InformationValueDate RecordedSex Assigned at BirthNot on fileLegal Sex Male08/03/2022 11:25 AM ESTGender IdentityNot on fileSexual OrientationNot on file Last Filed Vital Signs Vital SignReadingTime TakenCommentsBlood Cehtkrra699/8609 2:58 PM EDT Kpwpn7844 2:58 PM MLBJgcpwcbfmsl58.8 ??C (98.2 ??F)05/29/2022 2:58 PM EDTRespiratory Ctfo2778 2:58 PM EDTOxygen Jeaqsxzhhh60%05/29/2022 2:58 PM EDTInhaled Oxygen Concentration--Nxzdrd398 kg (239 lb 7 oz)05/29/2022 2:58 PM WWDUimdul483 cm (5' 7.32 )05/29/2022 2:58 PM EDTBody Mass Index37.1509 2:58 PM EDT Plan of Treatment Not on file
--- OUTSIDE RECORDS SUMMARY | 2025-07-21 09:45 | XMS_ITS | Clinical Summary ---
Author Organization [employer] [facility] tem Address [id number] [address] [place] [address] Care Team Providers Care Energy Project Manager Name Role Phone Pauly Santacruz MARINE SCIENTIST-TOOL ENGINE LATHE SET UP OPERATOR Primary Care Provider [phone] Allergies Active AllergyReactionsCriticalityNoted SljdTrihfxpmBzmldb95/31/2022Isosorbide VeobaqpmtfaAhoabxhy01/14/2022 Medications MedicationSigDispense QuantityRefillsLast FilledStart DateEnd DateStatus omeprazole (PriLOSEC) 40 mg capsule Take 1 capsule (40 mg total) by mouth in the morning.03/19/2022ctive gabapentin (NEURONTIN) 600 mg tablet Take 1 tablet (600 mg total) by mouth 3 (three) times a day.03/30/2022ctive DALIRESP 500 mcg tablet Take 1 tablet (500 mcg total) by mouth in the morning.03/15/2022ctive qffevnuemhk-yzlamcjbe-vqqjhgbp (TRELEGY ELLIPTA) 200-62.5-25 mcg blister with device [...] artery disease involving coronary bypass graft of [place] heart without angina pectoris,Paroxysmal atrial fibrillation (CMS-HCC),Aneurysm [...] artery disease involving coronary bypass graft of [place] heart without angina pectoris,Hx of CABG,Paroxysmal atrial fibrillation (CMS-HCC),Aneurysm of ascending aorta without rupture,History of maze procedure Take 100 mg in the morning and 50 mg at night 270 tablet ctive theophylline (BRYAN-24) 400 MG 24 hr capsule Take 1 capsule (400 mg total) by mouth in the morning.Active atorvastatin (LIPITOR) 40 mg tablet Indications:Coronary artery disease involving coronary bypass graft of [place] heart without angina pectoris,Hx of CABG,Paroxysmal atrial [...] artery disease involving coronary bypass graft of [place] heart without angina pectoris,Paroxysmal atrial fibrillation (CMS-HCC),Aneurysm of ascending aorta without rupture,Hx of CABG,History of maze procedureDISSOLVE 1 TABLET UNDER THE TONGUE NEEDED FOR CHEST PAIN- MAY REPEAT EVERY 5 MINUTES IF NEEDED (MAX 3 DOSES.- IF NO RELIEF CALL 911) 25 tablet 4Active lisinopriL (PRINIVIL,ZESTRIL) 5 mg tablet Indications:Coronary artery disease involving coronary bypass graft of [place] heart without angina pectoris,Hx of CABG,Paroxysmal atrial fibrillation (CMS-HCC),Aneurysm of ascending aorta without rupture,History of maze procedure Take 1 tablet (5 mg total) by mouth in the morning. FINAL REFILL UNTIL LABS COMPLETED. 90 tablet 5Active Active Problems ProblemNoted DateDiagnosed DateMixed bmwoxzzkrpaqan28/17/2024rimary qjypuovrjfqu03/17/2024Left ventricular /17/2024oronary artery disease involving coronary bypass graft of [place] heart without angina pectoris 05/20/2022aroxysmal atrial ptkqoxtqpwjz18/12/2022Thoracic aortic aneurysm without jiskymw0605/20/2022Hx of CABG05/20/2022History of maze kpwoctmms73/12/2022 Family History Medical HistoryRelationNameCommentsHeart diseaseFatherBreast cancerMotherCancer MotherRelationNameStatusCommentsFatherDeceasedMaternal [...] Last Filed Vital Signs Vital SignReadingTime TakenCommentsBlood Ielaqtby147/6206/24/2024 1:52 PM EDT Jxlzo884706/24/2024 1:52 PM EDTTemperature--Respiratory Rate--Oxygen Cnrpzbvpws14% 06/24/2024 1:52 PM EDTInhaled Oxygen Concentration--Iqhgrb783.1 kg (245 lb) 06/24/2024 1:52 PM SSPSuwmug078.7 cm (5' 7.99 )06/24/2024 1:52 PM EDTBody Mass Index37.261 1:52 PM EDT Plan of Treatment Health MaintenanceDue DateLast DoneCommentsDepression Kwyinsggv29/18/1972Zoster (Shingles) Vaccine (1 of 2)2010Fall Risk Hggdctfls81/18/2025Influenza Jzwcyzu78/02/2023, 05/23/2021dult BMI Jhqpzvcws59 Tobacco Bqtypgxgw11Statin Use: Vtfjpatysgdpio84/30/2026 10/07/2024DTaP,Tdap and Td Vaccines (2 - Td or Tdap)RSV ( or age 60+ yrs) (1 - 1-dose 75+ series)2035 [employer] Not on file Insurance * Guarantor: Nikunj CauseyAccount TypeRelation to PatientDate of PhoneBilling AddressPersonal/LndnrqAwxa1960 [address] [place] [address] Care Teams Team MemberRelationshipSpecialtyStart DateEnd Date Pauly Santacruz APRN-CHAO [address] [place] [address] PCP - GeneralFamily Ksovtphz60/17/24
--- OUTSIDE RECORDS SUMMARY | 2025-07-21 09:45 | XMS_ITS | Clinical Summary ---
Author Organization [facility] Address [address] [place] [address] Care Team Providers Care Master Tax Advisor Name Role Phone Mario Zayas MD Primary Care Provider [phone] Allergies No known active allergies Medications MedicationSigDispense [...] Active Problems ProblemNoted DateDiagnosed DateObstructive sleep apnea crfnkguf35/21/2025enign hypertensive heart disease without congestive heart mnuslvw3405/29/2025Nausea 04/14/2025bnormal cardiovascular stress test04/05/20254728Mgltnmjnd89/09/2024eliac wlatdcw2708/16/2024oronary artery disease involving [place] coronary artery of [place] heart without angina dnglwynk56/09/2024Erectile bvjdempcwdz91/09/2024ain in wrist08/16/2024eripheral gbznbbrxgmfawc55/09/2024ardiomyopathy, ischemic 08/16/2024hronic systolic heart ghfqntr0308/16/2024hronic anticoagulation 08/16/2024ure hrakfiyspzbcwpjmovov53/09/2024lass 2 severe obesity due to excess calories with serious comorbidity and body mass index (BMI) of35.0 to 35.9 in adult08/16/2024Mixed ovrymvrmkoylek71/17/2024Essential hypertension 06/24/2024DD (degenerative disc disease), jrgvwb8701/20/2024 Overview (08/16/2024): The patient is a 62 [...] has had no benefit with gabapentin increase. Cgucccpzha12/14/1236Loroeisfkdy26/14/2024History of maze mmztdaizr57/12/2022 Paroxysmal A-fib05/20/2022Thoracic aortic aneurysm without fupvato1505/20/2022 Ojdftctskyj09/01/2018Headache in back of head04/08/2018 Resolved Problems ProblemNoted DateDiagnosed DateResolved DateAbdominal aortic aneurysm (AAA) without ygdzzgg93/27/42022901/02/2025Left ventricular jhpkplfgwna03/17/2024 04/18/2025 Encounters DateTypeDepartmentCare VbwgNoffawejiyb87/23/2025Telephone [facility] [address] [facility] [place] [address] Tari Nevarez MA 06/02/2025Telephone [facility] [address] [facility] [place] [address] Melita Ignacio MA 05/27/2025 11:00 AM EDTOffice Visit [facility] [address] [facility] [place] [address] Dorinda iDaz MD Coronary artery disease involving [place] coronary artery of [place] heart without angina pectoris (Primary Dx); Cardiomyopathy, [...] PM EDT - 04/21/2025 1:30 PM EDTSurgery [facility] [address] [place] [address] Adam Valle MD Coronary ypmincujpwd93/14/2025 10:42 AM EDT - 04/21/2025 4:08 PM EDTHospital Encounter [facility] [address] [place] [address] Adam Valle MD Abnormal cardiovascular stress test Discharge Disposition: Home or Self Care ()04/21/2025Results Follow-Up [facility] [address] [place] [address] Dorinda Diaz MD Cardiac tnzenedlfrxxzyz45/14/2025Travelfrom Last 3 Months Family History Medical HistoryRelationNameCommentsCoronary artery diseaseFatherCoronary artery diseaseMotherRelationNameStatusCommentsFatherDeceasedMotherDeceasedSisterAlive Social History Tobacco UseTypesPacks/DayYears UsedDateSmoking Tobacco: FormerCigarettes Smokeless Tobacco: Never Tobacco Cessation:Counseling Given: Not Answered Alcohol UseStandard Drinks/WeekCommentsYes0 (1 standard drink = 0.6 oz pure alcohol)occasionalSex and Gender InformationValueDate RecordedSex Assigned at VxuadVgld20/05/2025 3:26 PM EDTLegal JmnPiko56/15/2024 2:46 PM ESTGender OnadulwnOrlt17/05/2025 3:26 PM EDTSexual OrientationHeterosexual or Straight 04/12/2025 3:26 PM EDT Last Filed Vital Signs Vital SignReadingTime TakenCommentsBlood Copihzuj35/56005/27/2025 11:01 AM EDT Ydyan4648/19/2025 11:01 AM EDTTemperature--Respiratory Rzev4071 3:45 PM EDTOxygen Pyddfgcwmd10%05/27/2025 11:01 AM EDT3 lpm o2 via n/cInhaled Oxygen Concentration--Qhoyuz287 kg (237 lb)05/27/2025 11:01 AM POAKktlxe002.3 cm (5' 9 )05/27/2025 11:01 AM EDTBody Mass Zzfua725505/27/2025 11:01 AM EDT Plan of Treatment Health MaintenanceDue DateLast DoneCommentsCT Jqfbvgwdvjsg1960Colonoscopy 1960Colorectal Cancer Uwkudfuxa1960FIT-DNA1960FIT1960 FOBT1960Medicare Annual Wellness (AWV)1960Medicare Initial Physical (IPPE)1960 9030Gzzmbjaovdemj1960Depression Jthjbngso70/18/1972 Pneumococcal Vaccine: 50+ Years (1 of 2 - PCV)1979Zoster Vaccines (1 of 2) 2010Fall Risk Zdkffqcul33/18/2025COVID-19 Vaccine (3 - 2024- season) 502/, 09/20/2020Influenza Vaccine (#1)/02/2023, 05/23/2021dult Drsjpzs61HIB VaccinesAged OutNo longer eligible based on patient's [...] Procedures Procedure NamePriorityDate/TimeAssociated DiagnosisCommentsINSTANT WAVE FREE RATIO (IFR)Ocdlvak1504/21/2025 1:55 PM EDT Abnormal cardiovascular stress test CORONARY BYPASS GRAFT YDXIHSfikhly51/14/2025 1:55 PM EDT Abnormal cardiovascular stress test CORONARY YRTPJEGLZVVGrxbfys60/14/2025 1:55 PM EDT Abnormal cardiovascular stress test ACTIVATED CLOTTING YUVPUfnxsmp36/14/2025 1:45 PM EDT ECG 12-SLETMqkpibw11/14/2025 12:25 PM EDT from Last 3 Months [...] infiltrated over the left radial artery. ??A 6-Stateless sheath was placed in left radial artery. [...] was maintained at >250 seconds. A 6 Stateless XB4 was engaged to the [place]. A [...] cardiovascular stress test [R94.39] Authorizing ProviderResult TypeResult StatusSaEureka Springs Hospital CARDIAC CATH PROCEDURESFinal Result * (ABNORMAL) Activated clotting time (04/21/2025 1:45 PM EDT)ComponentValueRef RangeTest MethodAnalysis TimePerformed AtPathologist SignatureActivated Clotting Zqod264(H)82 - 152 s004/21/2025 1:49 PM EDTMINERS[facility] ([facility]) Specimen (Source)Anatomical Location / LateralityCollection Method / Volume Collection TimeReceived TimeBloodVenous blood specimen / Pothvxi1804/21/2025 1:45 PM EDT04/21/2025 1:49 PM EDT Narrative Authorizing ProviderResult TypeResult StatusChyael YEPEZ POINT OF CARE TEST DOCKED DEVICE UNSOLICITED RESULTSFinal ResultPerforming Organization AddressCity/State/ZIP CodePhone Number [facility] ([facility]ER) [address] [place] [address] * Electrocardiogram, 12-lead (04/21/2025 12:25 PM EDT)ComponentValueRef Range Test MethodAnalysis TimePerformed AtPathologist SignatureVentricular Crle21UKJ GE MUSEAtrial Zgci85SZWVK MUSEPR Hlopkppt549gdZY MUSEQRS RHQNWOEA88waOB MUSEQT Pxfasslu078huVZ MUSEQTC CALCULATION(BAZETT)411msGE MUSEP Mpfh35dmnmhseCN MUSE R-Uaoz49sjsdubdXO MUSET Wave Tmlb462xjaksjnPY MUSESpecimen (Source)Anatomical Location / LateralityCollection Method / [...] Team MemberRelationshipSpecialtyStart DateEnd Mario Zayas MD [address] [place] [address] PCP - GeneralFamily Medicine02/09/25
--- NOTE | 2025-07-21 10:15 | P.CN_ITS ---
Consult Note: HPI Data of Consult Patient: new to practice Consult date: 07/21/25 Requesting Physician: Riddhi Elizabeth NP Primary Care Provider: Mario Zayas MD Consult Narrative Reason for consult: neuropathy/bilateral foot pain Narrative: Nikunj Borrego a 65 year old make with >20 years of low back pain and m any years of neuropathy pain in bilateral feet. Pt has extensive DDD and multilevel stenosis according to recently completed lumbar MRI. Pt was previously in pain management while living in [place] for 15-20 years, unfortunately he failed to respond to scs trial and medication management as well as other unknown procedures. Prior EMG of BLE from 01/2023 reveals chronic S1 radiculopathy. pt has failed to benefit from > 6 weeks of PT/HEP, heat, ice, tylenol, nsaids, meloxicam, lyrica, topamax. pt recently underwent bilateral L5-S1 TFESI with mild improvement, notes pain is not as sharp. continues to endorse severe pain, noting 7/10 increasing to 10/10 with standing and walking. cc:: CC: Riddhi Elizabeth NP Review of Systems ROS Musculoskeletal Reports: back pain and extremity pain PFSH [facility] Medical History (Updated 07/11/25 @ 10:18 by Mirela Segura RN) Anemia ?D64.9 - Anemia, unspecified (ICD-10) High cholesterol ?E78.00 - Pure hypercholesterolemia, unspecified (ICD-10) Afib ?I48.91 - Unspecified atrial fibrillation (ICD-10) Aneurysm of ascending aorta without rupture ?I71.21 - Aneurysm of the ascending aorta, without rupture (ICD-10) Ischemic cardiomyopathy ?I25.5 - Ischemic cardiomyopathy (ICD-10) Celiac disease ?K90.0 - Celiac disease (ICD-10) Hypertension ?I10 - Essential (primary) hypertension (ICD-10) Amputation finger ?S68.119A - Complete traumatic metacarpophalangeal amputation of unspecified finger, initial encounter (ICD-10) Personal history of smoking ?Z87.891 - Personal history of nicotine dependence (ICD-10) Obesity ?E66.9 - Obesity, unspecified (ICD-10) Heartburn ?R12 - Heartburn (ICD-10) Osteoarthritis ?M19.90 - Unspecified osteoarthritis, unspecified site (ICD-10) Degenerative disc disease CAD (coronary artery disease) ?I25.10 - Atherosclerotic heart disease of [place] coronary artery without angina pectoris (ICD-10) COPD (chronic obstructive pulmonary disease) ?J44.9 - Chronic obstructive pulmonary disease, unspecified (ICD-10) Sleep apnea ?G47.30 - Sleep apnea, unspecified (ICD-10) Angina of effort ?I20.89 - Other forms of angina pectoris (ICD-10) Surgical History (Updated 07/11/25 @ 10:18 by Mirela Segura RN) H/O repair of rotator cuff ?Z98.890 - Other specified postprocedural states (ICD-10) H/O shoulder surgery ?Z98.890 - Other specified postprocedural states (ICD-10) History of right hip replacement ?Z96.641 - Presence of right artificial hip joint (ICD-10) History of left hip replacement ?Z96.642 - Presence of left artificial hip joint (ICD-10) Social History Smoking status: Former smoker Meds Home Medications and Allergies Home Medications ?Medication ?Instructions ?Recorded ?Confirmed ?Type ascorbic acid (vitamin C) 500 mg 1 g PO DAILY 04/01/23 07/11/25 History tablet (C-500) aspirin 81 mg tablet,delayed 81 mg PO DAILY 04/01/23 1 09/10/24 History release atorvastatin 40 mg tablet 80 mg PO DAILY 04/01/2311/30 History cholecalciferol (vitamin D3) 1 tab PO DAILY 04/01/23 1 09/10/24 History ferrous sulfate 325 mg (65 mg 325 mg PO DAILY 04/01/23 07/11/25 History iron) tablet (Feosol) fluticasone fur. 200 mcg-umeclid 1 inh inhalation Q24H 04/01/23 07/11/25 History 62.5 mcg-vilant 25 mcg inhalat.powder (Trelegy Ellipta) ipratropium 0.5 mg-albuterol 3 mg 3 ml inhalation Q8H PRN shortness 04/01/23 07/11/25 History (2.5 mg base)/3 mL nebulization of breath soln lisinopril 5 mg tablet 5 mg PO DAILY 04/01/2307/11 History metoprolol succinate 50 mg 100 mg PO DAILY 04/01/23 History tablet,extended release 24 hr nitroglycerin 0.4 mg sublingual 0.4 mg sublingual Q5M PRN chest 04/01/23 07/11/25 History tablet pain roflumilast 500 mcg tablet 500 mcg PO DAILY 04/01/23 1 10/15/22 History theophylline 400 mg 300 mg PO Q12H 04/01/2311/30 History tablet,extended release 24 hr apixaban 5 mg tablet (Eliquis) 5 mg PO Q12H 08/14/23 1 09/10/24 History meloxicam 15 mg tablet 15 mg PO DAILY 08/14/2311/30 History azithromycin 250 mg tablet See Rx Instructions PO .COM PLEX #6 10/27/23 07/11/25 Rx (Zithromax Z-Dl) tabs dapagliflozin propanediol 10 mg 10 mg PO DAILY 5 07/11/25 History tablet (Farxiga) prednisone 10 mg tablet 10 mg PO DAILY 06/30/2511/30 History pregabalin 150 mg capsule (Lyrica) 150 mg PO TID 06/3007/11/25 History sodium chloride 0.9 % aerosol 3 ml inhalation Q12H 06/30/25 History inhaler topiramate 50 mg tablet (Topamax) 50 mg PO DAILY 06/3007/11/25 History Allergies Allergy/AdvReac Type Severity Reaction Status Date / Time No Known Drug Allergies Allergy Verified 08/14/23 01:41 Exam Constitutional Documenting provider has reviewed patient's vital signs: yes Common normals: no apparent distress, oriented x3 and alert General appearance: not cooperative Nutritional appearance: obese [facility] Common normals: normocephalic, hearing grossly normal bilaterally and moist oral mucous membranes Head and scalp: normocephalic Eye Common normals: PERRL Pupil: PERRL Chest Common normals: inspection of chest normal Respiratory Common normals: normal respiratory effort Other: on o2 Back & Pelvis Lumbar spine/lower back: ROM limited, pain with ROM, straight leg raise positive right and straight leg raise positive left Other: decreased sensation bilateral L5,S1,S2 Extremity Other: non pitting edema Neuro Common normals: oriented x3 Sensorium/orientation: alert Psych Common normals: mental status grossly normal, thought process normal, cooperative, affect normal, speech normal and activity/motor behavior normal Speech: normal speech Thought process: normal thought process Results Additional Findings Additional findings: If on a controlled substance or opioids, I have checked an [place]AR[place] report on this patient and there are no aberrancies noted in the prescribing history.??If on a controlled substance or opioid a drug screen was completed and reviewed within the last year, and if there has not been a drug screen completed we ordered one today to monitor higher risk, state monitored pain medication use. As part of providing excellent, safe, comprehensive care, the following was completed at our patient's visit: 1. A medication reconciliation and review to ensure accurate knowledge of current/active medications, including asking our patients to inform us about any ysmp-ryj-rouduks medications or herbal remedies/nutritional supplements/alternative remedies. 2. A review to specifically ensure our patients have had annual screening for screening for depression, screening for tobacco use, and screening for unhealthy alcohol use. For concerning screenings had a discussion with the patient, provided patient education, and recommended follow-up with primary care provider when appropriate. If patient noted with a risk of falling, they received education on strength, gait, and balance training to prevent future risk of falling. Portions of this note may have been carried over from the previous visit and updated as appropriate. Please note this office utilizes paper charting in addition to the electronic medical record. A list of current medications, vitals, and PMH is available there as the clinical staff outside of myself do not have access to [employer] charting during the clinic day operations. As part of providing quality comprehensive care the current medications, vitals, and PMH were reviewed in the paper chart. Assessment and Plan Assessment and Plan (1) Lumbosacral radiculopathy: Assessment and Plan: The patient has had over 3 months of moderate to severe low back and bilateral foot pain with functional impairment and inadequate response to conservative care including NSAIDS (unless there are contraindication such as concurrent blood thinners), multiple oral or topical pain medications, and home exercise program/physical therapy.? Patient has completed >6 weeks of guided home exercise program and/or formal physical therapy program without relief of their symptoms.? The Oswestry Disability Index was completed, and the patient scored a 20%.? Plan Comprehensive physical exam and review of prior images and EMG completed again and reviewed with the patient. He continues to endorse moderate to severe low back and bilateral foot pain, but states that his back and bilateral feet are tolerable now. patient declining bilateral S1-S2 TFESI for lumbosacral radiculopathy. pt would like to f/u in 3 months to revisit lumbar TFESI patient states he was sent her for neurology care, I again educated him on pain management and our goals to improve his pain and functional ability but not to cure chronic pain. patient declining referral to neurology. continue medications through PCP at this time patient would like to address his chronic neck pain, I have requested he make a separate appointment for his neck as todays appointment was to address our previous plan for lumbosacral radiculopathy. The referring provider orginally sent the patient with intentions of us addressing his lumbar ddd and lumbar radiculopathy. Patient frustrated as he is the patient and historically when he went to the doctor they would address numerous problems at one visit. We have offered him the soonest opening to evaluate his neck.
== END 2025-07-21 09:41 | disposition home or self-care (01) ==
LOC: PM 09:41
PROVIDERS: PCP Family Medicine; Visit Provider Nurse Practitioner
DX: M54.16 Radiculopathy, lumbar region (principal)
CPT/HCPCS: G0463

== ENCOUNTER 2025-07-28 09:44 | Outpatient (OUT) | payer MEDICARE, SELFPAY ==
--- OUTSIDE RECORDS SUMMARY | 2025-07-21 16:40 | XMS_ITS | Encounter Summary ---
Author Organization [facility] Address [address] [place] [address] Care Team Providers Care Buzzsaw Operator Helper Name Role Phone Pauly Santacruz HOSPITAL MANAGER Unavailable Mario Zayas MD Primary Care Provider [phone] Reason for Visit * ReasonCommentsFollow-upPvr results Encounter Details DateTypeDepartmentCare Team (Latest Contact Info)Tfqadgybduc15/13/2025 4:40 PM ESTOffice Visit [facility] [address] [facility] [address] [place] [address] Yuri Rowe DPM [address] [facility] [address] [place] [address] PVD (peripheral vascular disease) (Primary Dx); Other polyneuropathy; Paronychia, toe, left Social History Tobacco UseTypesPacks/DayYears UsedDateSmoking Tobacco: TgpitgSrgwwqikgs023 09/08/1974 - 09/08/2009Smokeless Tobacco: Never Tobacco Cessation:Counseling Given: Yes Alcohol UseStandard Drinks/WeekCommentsNever0 (1 standard drink = 0.6 oz pure alcohol)ocassionallySex and Gender InformationValueDate RecordedSex Assigned at TrsxlDiso02/16/2023 9:38 AM EDTLegal YpoUmhn5702/06/2023 9:13 AM EDTGender CjvwwwirYqsb41/16/2023 9:38 AM EDTSexual OrientationNot on filedocumented as of this encounter Last Filed Vital Signs Vital SignReadingTime TakenCommentsBlood Pressure--Pulse--Temperature-- Respiratory Bwjo1054 4:45 PM ESTOxygen Saturation--Inhaled Oxygen Concentration--Totgtr896 kg (250 lb)07/21/2025 4:45 PM AOYZgyacl059.8 cm (5' 10 )07/21/2025 4:45 PM ESTBody Mass Index35.8711 4:45 PM ESTdocumented in this encounter Progress Notes * Yuri Rowe DPM - 07/21/2025 4:40 PM EST Patient: Nikunj Gutierrez : 1960 PCP: Mario Zayas MD SUBJECTIVE This is a 65 y.o. male that presents today for follow up of left hallux paronychia and possible procedure. He was to have SERVANDO/PVR at [facility] in the past and states that he Has had testing done. Patient denies N/F/V/C. Denies any drainage to left hallux. Denies tx. Patient's history of peripheral neuropathy secondary to back issues and degenerative disc disease He also has history of COPD and presents today with O2 Allergies: Allergies[1] Past Medical History: Medical History[2] [...] Insecurity: No Food Insecurity (06/24/2024) Received from [facility] Hunger Screening Within the past [...] to the lateral border of the left hallux digit with negative drainage VASC: non palpable pedal pulses bilaterally NEURO: 5.07 [employer] An[employer]um monofilament test intact to digits and forefoot bilaterally 125Hz tuning fork diminished to 1st MPJ bilaterally ORTHO: Positive pain on palpation to toenails of the left 1,2,3,4,5 toes and right 1,2,3,4,5 toes SERVANDO/PVR: Right SERVANDO of 1.42 and TBI of 1.01 and left SERVANDO of 1.12 and TBI of 1.03. Segmental pressure show possible left-sided infrapopliteal disease calcified right sided vessels indicate elevated SERVANDO PVRs at the high-thigh below-knee and ankle level showed normal waveforms The study shows evidence of PID with grossly normal overall arterial flow at rest Noted by [facility] reading ASSESSMENT 1. PVD (peripheral vascular disease) 2. Other polyneuropathy 3. Paronychia, toe, left PLAN Reviewed SERVANDO PVRs today with patient with mostly normal inflow showed to the digits of bilateral lower extremities with very mild PVD to the left infrapopliteal region Perfomed TPN avulsion to the left toenail. Informed pt of risks/ benefits of procedure including infection,reoccurance,pain, bleeding. Pt consents. 3cc of xylocaine 2% plain injected into the affected digit and tournicut applied to affected digit for 3 minutes. The affected toe was prepped/draped in a sterile manner and the offending nail border removed and 3phenol applications of 30 seconds a peice to nail matrix. Alcohol flush applied and tournicut released with prompt hyperemic response. Patient was given a prescription for an antibiotic Yuri Rowe DPM [1] Allergies Allergen Reactions Gluten Meal GI intolerance Isosorbide Nitrate Headache [2] Past Medical History: Diagnosis Date Anemia Arthritis 08/16/2024 Atrial fibrillation (HCC) Cardiomyopathy, ischemic 08/16/2024 Celiac disease (HCC) 03/04/2019 Centrilobular emphysema ([facility]) 2025 Noted by [facility] last documented on [id number] Cervicalgia 04/08/2018 Chronic anticoagulation 08/16/2024 Chronic obstructive lung disease (HCC) 01/22/2018 Chronic obstructive pulmonary disease (COPD) ([facility]) Chronic systolic heart failure ([facility]) 08/16/2024 Class 2 severe obesity due to excess calories with serious comorbidity and body mass index (BMI) of35.0 to 35.9 in adult 08/16/2024 Coronary artery disease Emphysema of lung ([facility]) Erectile dysfunction 08/16/2024 H/O hernia repair Headache in back of head 04/08/2018 Hypertensive heart disease with heart failure ([facility]) 2025 Noted by [facility] last documented on [id number] Mixed hyperlipidemia 06/24/2024 Pain in wrist 08/16/2024 Peripheral polyneuropathy 06/27/2023 Pneumonia Primary hypertension 06/24/2024 Pure hypercholesterolemia 08/16/2024 Rheumatoid arthritis ([facility]) Sinus tachycardia 01/22/2018 [3] Current Outpatient Medications: [...] Plan of Treatment DateTypeDepartmentCare Team (Latest Contact Info)Bnwiykmocov43/04/2025 1:50 PM ESTOffice Visit [facility] [address] [facility] [address] [place] [address] Yuri Rowe DPM [address] [address] 09/15/2025 10:50 AM ESTProcedure Visit [facility] [address] [facility] [address] [place] [address] Yuri Rowe DPM [address] [address] 10/17/2025 10:15 AM ESTOffice Visit [facility] [address] [place] [phone] Tree Carmona DO [address] [place] [address] documented as of this encounter Visit Diagnoses Diagnosis PVD (peripheral vascular disease)- Primary Unspecified peripheral vascular disease Other polyneuropathy Paronychia, toe, left documented in this encounter Care Teams Team MemberRelationshipSpecialtyStart DateEnd Mario Zayas MD [address] [place] [address] PCP - GeneralFamily Pvnvwakr31/16/25 Pauly Santacruz NP [address] [place] [address] Referring PhysicianFamily Medicine03/15/24documented as of this encounter
--- OUTSIDE RECORDS SUMMARY | 2025-07-28 09:47 | XMS_ITS | Encounter Summary ---
Author Organization [facility] Address [address] [place] [address] Care Team Providers Care Electronic Equipment Maint Tech Name Role Phone Pauly Santacruz WOOL CLASSER Unavailable Mario Zayas MD Primary Care Provider [phone] Encounter Details DateTypeDepartmentCare Team (Latest Contact Info)Djhaknmoerj14/13/2025bstract [facility] [address] [place] [address] [place] [phone] Yuri Rowe DPM [address] [facility] [address] [place] [address] Social History Tobacco UseTypesPacks/DayYears UsedDateSmoking Tobacco: EuxqooHzwatcqkit821 09/08/1974 - 09/08/2009Smokeless Tobacco: NeverAlcohol UseStandard Drinks/Week CommentsNever0 (1 standard drink = 0.6 oz pure alcohol)ocassionallySex and Gender InformationValueDate RecordedSex Assigned at ZqmabIusj67/16/2023 9:38 AM EDTLegal DccDgbd4802/06/2023 9:13 AM EDTGender SdrmnpfdSmdw77/16/2023 9:38 AM EDT Sexual OrientationNot on filedocumented as of this encounter Plan of Treatment DateTypeDepartmentCare Team (Latest Contact Info)Qsxvaseckue36/04/2025 1:50 PM ESTOffice Visit [facility] [address] [place] [address] [place] [address] Yuri Rowe DPM [address] [facility] [address] [place] [address] 09/15/2025 10:50 AM ESTProcedure Visit [facility] [address] [facility] [address] [place] [address] Yuri Rowe, DPM [address] [facility] [address] [place] [address] 10/17/2025 10:15 AM ESTOffice Visit [facility] [address] [place] [place] [address] Tree Carmona, [address] [place] [address] documented as of this encounter Visit Diagnoses Not on filedocumented in this encounter Care Teams Team MemberRelationshipSpecialtyStart DateEnd Mario Zayas MD [address] [facility] [place] [phone] PCP - GeneralFamily Yjzstnrb03/16/25 Pauly Santacruz NP [address] [place] [address] Referring PhysicianFamily Medicine03/15/24documented as of this encounter
--- OUTSIDE RECORDS SUMMARY | 2025-07-28 09:47 | XMS_ITS | Clinical Summary ---
Author Organization [facility] Address [address] [facility], [address] [place] [address] Care Team Providers Care Flanger Name Role Phone Mario Zayas MD Primary [...] under the tongue every 5 minutes as sehypz784Active Potassium Gluconate 595 (99 K) MG TABS Take 1 tablet by mouth dailyActive pregabalin (LYRICA) 150 MG capsule Take 1 capsule by mouth in the morning, at noon, and at bedtime.12/20/2024tive Saw [place] 450 MG CAPS Take 1 capsule by [...] mouth 2 times daily 180 tablet 5Active nhvjaoxcrqx-gitpgjvho-atfzzx (TRELEGY ELLIPTA) 200-62.5-25 MCG/ACT AEPB inhaler Indications:Centrilobular emphysema (HCC)Inhale 1 puff into the lungs daily 180 each 5Active sodium chloride nebulizer 0.9 % solution Indications:Centrilobular emphysema (HCC)Take 3 mLs by nebulization 2 times daily 540 mL 5Active albuterol sulfate HFA (PROVENTIL;VENTOLIN;PROAIR) 108 (90 Base) MCG/ACT inhaler Inhale 1 puff into the lungs every 4 hours as nfmbpr6307/13/2025Discontinued (REORDER) azithromycin (ZITHROMAX) 250 MG tablet Take [...] Inhale 3 mLs into the lungs as dwbdey04Discontinued(REORDER) theophylline (THEODUR) 300 MG extended release tablet [...] oral candidiasis and other potential adverse effects. manager intermediate (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 of systemic fjfamyrp54/05/2025 Assessment & Plan (07/13/2025 9:31 AM EST): Discussed with the patient adverse effects of senior care systemic steroids including, but not limited to: [...] 1 tablet by mouth 2 times daily vcdtngyznro-ujendufxo-rienhk (TRELEGY ELLIPTA) 200-62.5-25 MCG/ACT AEPB inhaler; Inhale 1 puff intothe lungs daily sodium chloride nebulizer 0.9 % solution; Take 3 mLs by nebulization 2 times daily ISABEL (obstructive sleep apnea) Assessment & Plan (07/13/2025 10:56 AM EST): A apak-yj-gcqw encounter was performed with the patient today [...] VAuto -Current mode & pressures: BiPAP @ 16/39lhT4K -Residual AHI: 0.5 -Median air leak: 6.1L/min [...] & Plan (07/13/2025 10:56 AM EST): A cnya-bs-zbfv encounter was performed with the patient today [...] CT chest evidence of asbestos. Encounters DateTypeDepartmentCare ToytVhzbrhvxppy21/05/2025 8:00 AM ESTOffice Visit [facility] [address] [facility], [address] [place] [address] Hu Bunn DO Centrilobular emphysema (Primary Dx); ISABEL (obstructive sleep apnea); Chronic respiratory failure with hypoxia; Chronic respiratory failure with hypercapnia; History of tobacco abuse; History of asbestos exposure; manager intermediate (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 of systemic steroids; halfway (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 of inhaled steroidsfrom Last 3 Months Family History Medical HistoryRelationNameCommentsHeart DiseaseFatherBreast CancerMother HypertensionMotherHypertensionSisterRelationNameStatusCommentsFatherMotherSister Social History Tobacco UseTypesPacks/DayYears UsedDateSmoking Tobacco: CqkrxjHcibxyameo9563611 - 2012Smokeless Tobacco: Never Tobacco Cessation:Counseling Given: Not Answered Alcohol UseStandard Drinks/WeekCommentsNot Currently0 (1 standard drink = 0.6 oz pure alcohol)Sex and Gender InformationValueDate RecordedSex Assigned at Male07/13/2025 7:55 AM ESTLegal HteNevy49/07/2025 3:18 PM EDTGender IdentityNot on fileSexual OrientationNot on file Last Filed Vital Signs Vital SignReadingTime TakenCommentsBlood Eoncwitm223/7407/13/2025 8:06 AM EST Huwfw698307/13/2025 8:06 AM GZLPniugrphrgw82.1 ??C (97 ??F)07/13/2025 8:06 AM EST Respiratory Ehlm6716 8:06 AM ESTOxygen Cwtbtwxmkw95%07/13/2025 8:06 AM EST5L W3Wsyitld Oxygen Concentration--Hzyqqr790.4 kg (247 lb 12.8 oz)07/13/2025 8:06 AM UULDwvzni283.7 cm (5' 8 )07/13/2025 8:06 AM ESTBody Mass Index37.68 07/13/2025 8:06 AM EST Plan of Treatment DateTypeDepartmentCare Team (Latest Contact Info)Vhemuinudjj00/03/2026 10:00 AM ESTOffice Visit [facility] [address] [place] [address] [address] [place] [address] [place] [address] [place] [address] [address] [place] [address] 3 MO F/U for COPD, respiratory failure.Health MaintenanceDue DateLast Done RkonkyzmXuymuy12/18/1970Depression Yfbtwy2003/25/1972HIV saqqun3003/25/1975Hepatitis C fshnav4303/25/1978Pneumococcal 50+ years Vaccine (1 of 2 - PCV)1979 Diabetes sdukln1003/25/19950600Gxaidsoocxu74/18/2005Colorectal Cancer Yvqudy1103/25/2005 FIT/FOBT: Average risk2005Fecal-DNA (Cologuard): Average risk2005 Sigmoidoscopy/CT hskjafyighik08/18/2005Shingles vaccine (1 of 2)2010 Respiratory Syncytial Virus (RSV) or age 60 yrs+ (1 - Risk 60-74 years 1-dose series)2020Lung Cancer Screening &/or Mnehhjiyhb24/19/2023 12/25/2021AA gjmeyq6203/25/2025Flu vaccine (#1)5110/14/2022, 05/23/2021 COVID-19 Vaccine (3 - [...] DateEnd Date Mario Zayas MD [address] [place] [address] PCP - [facility]06/14/25
--- OUTSIDE RECORDS SUMMARY | 2025-07-28 09:47 | XMS_ITS | Clinical Summary ---
Author Organization [facility] Address [address] [place] [address] Care Team Providers Care Family Life Educator Name Role Phone Pauly Santacruz EMISSION SPECIALIST Unavailable Mario Zayas MD Primary Care Provider [phone] Allergies Active AllergyReactionsCriticalityNoted DateCommentsGluten MealGI intoleranceLow 05/08/2022Isosorbide GzcgtwkAruocqibKla57/14/2022 Medications MedicationSigDispense QuantityRefillsLast FilledStart DateEnd DateStatus albuterol [...] 0.9 % nebulizer solution Inhale 3 mL5Active cephalexin (Keflex) 500 MG capsule Indications:Paronychia, toe, leftTake 1 capsule (500 mg) by mouth in the morning and 1 capsule (500 mg) in the evening and 1 capsule(500 mg) before bedtime. Do all this for 10 days. Take one tablet by mouth three times daily. 30 capsule 5Active Active Problems ProblemNoted DateDiagnosed WfsgJnwgxsvwpq05/14/2024DD (degenerative disc disease), riapdi4801/20/2024 Overview (01/20/2024): The patient is a 62 [...] has had no benefit with gabapentin increase. Eyyjwgegzel96/14/2024oronary artery disease involving coronary bypass graft of afognak heart without angina kmylhiru12/12/2022History of maze procedure 05/20/2022Hx of CABG05/20/2022aroxysmal atrial wwsojiqimiud09/12/2022Thoracic aortic aneurysm without ingudgj83/08/2022 Resolved Problems ProblemNoted DateDiagnosed DateResolved DateCentrilobular ljfromjhv76/18/2025 2025 Overview (2025): Noted by [facility] last documented on 20241027 Hypertensive heart disease with heart Overview (2025): Noted by [facility] last documented on 20241001 Chronic donddbduhfvzqpa72hronic systolic heart failure Erectile awkhvptwaxz80ardiomyopathy, dxrcbyqu69lass 2 severe obesity due to excess calories with serious comorbidity and body mass index (BMI) of35.0 to 35.9 in adult08/16/2024 2025Pain in wristPure drbyauuvdugqjoycqkka09/09/2024 03/25/20255981Vhgczypou91Mixed amimbehvflqzhu33 Primary zyuxcduwnxbp84Peripheral exctysmivpeveq11/20/2023 06/27/2023eliac lnibfyj54ervicalgia Headache in back of headhronic obstructive lung disease Sinus hevtitghzxn04 Encounters DateTypeDepartmentCare RurjLsxxrzdshhr94/13/2025 4:40 PM ESTOffice Visit [facility] [address] [place] [address] [place] [address] Yuri Rowe DPM PVD (peripheral vascular disease) (Primary Dx); Other polyneuropathy; Paronychia, toe, left07/21/2025bstract [facility] [address] [place] [address] Yuri Rowe DPM 07/21/2025amboo flowsheet [facility] [address] [facility] [address] [place] [address] Yuir Rowe DPM 07/21/20256138Jkohgt54/29/2025bstract [facility] [address] [facility] [address] [place] [address] Yuri Rowe DPM 07/06/2025bstract [facility] [address] [facility] [address] [place] [phone] Yuri Rowe DPM 06/23/2025 9:30 AM EDTOffice Visit [facility] [address] [facility] [address] [place] [phone] Yuri Rowe DPM PVD (peripheral vascular disease); Other polyneuropathy; Pain due to onychomycosis of toenails of both feet; Paronychia, toe, left06/23/2025amboo flowsheet [facility] [address] [facility] [address] [place] [phone] Yuri Rowe DPM 06/23/2025Travelfrom Last 3 Months Immunizations ImmunizationAdministration DatesNext DueInfluenza, High Dose Seasonal, Preservative Free05/23/2021Influenza, injectable, MDCK, preservative free, /06/2023Pfizer Purple Cap SARS-CoV-2 Bqfbkapaigj41/17/2021, 09/20/2020Tdap110/14/2022 Family History Medical HistoryRelationNameCommentsHeart diseaseFatherCancerMotherHeart disease MotherHypertensionMotherDiabetesSiblingRelationNameStatusCommentsFatherMother SiblingAlive Social History Tobacco UseTypesPacks/DayYears UsedDateSmoking Tobacco: TinvmbAeetqqxwrv236 09/08/1974 - 09/08/2009Smokeless Tobacco: Never Tobacco Cessation:Counseling Given: Yes Alcohol UseStandard Drinks/WeekCommentsNever0 (1 standard drink = 0.6 oz pure alcohol)ocassionallySex and Gender InformationValueDate RecordedSex Assigned at SiaxaRkct76/16/2023 9:38 AM EDTLegal FbwBkdi9302/06/2023 9:13 AM EDTGender FoesopnzXpll85/16/2023 9:38 AM EDTSexual OrientationNot on file Last Filed Vital Signs Vital SignReadingTime TakenCommentsBlood Jbanjrav933/8204 10:42 AM EDT Cdpwd692212/27/2024 10:42 AM EDTTemperature--Respiratory Mvok010509/20/2024 4:45 PM ESTOxygen Yjwbgojiba88%12/27/2024 10:42 AM EDTInhaled Oxygen Concentration-- Kxijnc254 kg (250 lb)07/21/2025 4:45 PM SJTGqfydt922.8 cm (5' 10 )07/21/2025 4:45 PM ESTBody Mass Index35.8707/21/2025 4:45 PM EST Plan of Treatment DateTypeDepartmentCare Team (Latest Contact Info)Hpvmvsvoetw86/04/2025 1:50 PM ESTOffice Visit [facility] [address] [place] [address] Yuri Rowe DPM [address] [address] 09/15/2025 10:50 AM ESTProcedure Visit [facility] [address] [place] [place] [address] Yuri Rowe DPM [address] [address] 10/17/2025 10:15 AM ESTOffice Visit [facility] [address] [place] [phone] Tree Carmona DO [address] [place] [address] Insurance Care Teams Team MemberRelationshipSpecialtyStart Date Mario Zayas MD [address] [place] [phone] PCP - GeneralFamily Ikgpeibi65/16/25 Pauly Santacruz NP [address] [place] [address] Referring PhysicianFamily Medicine03/15/24
--- OUTSIDE RECORDS SUMMARY | 2025-07-28 09:47 | XMS_ITS | Encounter Summary ---
Author Organization [facility] Address [address] [place] [address] Care Team Providers Care Link Trainer Operator Name Role Phone Pauly Santacruz PUBLIC POLICY ANALYST Unavailable Mario Zayas MD Primary Care Provider [phone] Encounter Details DateTypeDepartmentCare Team (Latest Contact Info)Zyirzldmosr19/13/2025amboo flowsheet [facility] [address] [place] [place] [phone] Yuri Rowe DPM [address] [facility] 5 [place] [address] Social History Tobacco UseTypesPacks/DayYears UsedDateSmoking Tobacco: GdlkciDttfauxnjl542 09/08/1974 - 09/08/2009Smokeless Tobacco: NeverAlcohol UseStandard Drinks/Week CommentsNever0 (1 standard drink = 0.6 oz pure alcohol)ocassionallySex and Gender InformationValueDate RecordedSex Assigned at EfqhhRqal23/16/2023 9:38 AM EDTLegal GxtXoak8702/06/2023 9:13 AM EDTGender PdqtqduoStwq31/16/2023 9:38 AM EDT Sexual OrientationNot on filedocumented as of this encounter Plan of Treatment DateTypeDepartmentCare Team (Latest Contact Info)Xfgenaimwpk88/04/2025 1:50 PM ESTOffice Visit [facility] [address] [place] [phone] Yuri Rowe DPM [address] [facility] 5 [place] [address] 09/15/2025 10:50 AM ESTProcedure Visit [facility] [address] [facility] [address] [place] [address] Yuri Rowe, DPM [address] [facility] 5 [place] [address] 10/17/2025 10:15 AM ESTOffice Visit [facility] [address] [place] [address] Tree Carmona, [address] [address] documented as of this encounter Visit Diagnoses Not on filedocumented in this encounter Care Teams Team MemberRelationshipSpecialtyStart DateEnd Mario Zayas MD [address] [facility] [place] [phone] PCP - GeneralFamily Lahwenpx78/16/25 Pauly Santacruz NP [address] [place] [address] Referring PhysicianFamily Medicine03/15/24documented as of this encounter
--- OUTSIDE RECORDS SUMMARY | 2025-07-28 09:47 | XMS_ITS | Clinical Summary ---
Author Organization [facility] Address [address] [place] [address] Phone Care Team Providers Care Pairing Machine Operator Name Role Phone Unavailable Primary Care Provider Unavailabl e Social History Tobacco UseTypesPacks/DayYears UsedDateSmoking Tobacco: Never AssessedSex and Gender InformationValueDate RecordedSex Assigned at BirthNot on fileLegal Sex Male08/03/2022 11:25 AM ESTGender IdentityNot on fileSexual OrientationNot on file Last Filed Vital Signs Vital SignReadingTime TakenCommentsBlood Jdyxnmrg205/8609 2:58 PM EDT Aqfoh1136 2:58 PM IRYMqjrolxltxz05.8 ??C (98.2 ??F)05/29/2022 2:58 PM EDTRespiratory Yies9112 2:58 PM EDTOxygen Yzzarnlcbh31%05/29/2022 2:58 PM EDTInhaled Oxygen Concentration--Sdchxa861 kg (239 lb 7 oz)05/29/2022 2:58 PM UQVGnajdz060 cm (5' 7.32 )05/29/2022 2:58 PM EDTBody Mass Index37.1509 2:58 PM EDT Plan of Treatment Not on file
--- OUTSIDE RECORDS SUMMARY | 2025-07-28 09:47 | XMS_ITS | Encounter Summary ---
Author Organization [facility] Address [address] [place] [address] Care Team Providers Care Chronograph Operator Name Role Phone Pauly Santacruz ENTRY LEVEL SALES CONSULTANT Unavailable Mario Zayas MD Primary Care Provider [phone] Encounter Details DateTypeDepartmentCare Team (Latest Contact Info)Hhzqrxlekzs77/13/2025Travel Social History Tobacco UseTypesPacks/DayYears UsedDateSmoking Tobacco: LqurvkDfeovmoubl028 09/08/1974 - 09/08/2009Smokeless Tobacco: NeverAlcohol UseStandard Drinks/Week CommentsNever0 (1 standard drink = 0.6 oz pure alcohol)ocassionallySex and Gender InformationValueDate RecordedSex Assigned at VjgzwYdbi41/16/2023 9:38 AM EDTLegal IlwAxbo1602/06/2023 9:13 AM EDTGender SngzmlobFibp64/16/2023 9:38 AM EDT Sexual OrientationNot on filedocumented as of this encounter Plan of Treatment DateTypeDepartmentCare Team (Latest Contact Info)Yfooiazwzli71/04/2025 1:50 PM ESTOffice Visit [facility] [address] [facility] [address] [place] [address] Yuri Rowe DPM [address] [facility] [address] [place] [address] 09/15/2025 10:50 AM ESTProcedure Visit [facility] [address] [place] [place] [address] Yuri Rowe DPM [address] [address] 10/17/2025 10:15 AM ESTOffice Visit [facility] [place] [facility] [address] [place] [address] Tree Carmona DO [address] [facility] [place] [address] documented as of this encounter Visit Diagnoses Not on filedocumented in this encounter Care Teams Team MemberRelationshipSpecialtyStart DateEnd Date Mario Zayas MD [address] [place] [address] PCP - GeneralFamily Oyvkftlb86/16/25 Pauly Santacruz NP [address] [place] [address] Referring PhysicianFamily Medicine03/15/24documented as of this encounter
--- OUTSIDE RECORDS SUMMARY | 2025-07-28 09:58 | XMS_ITS | CCD ---
Author Organization [facility] Providers Care Kids Activities Coach Name Role Phone ERICK MELLISA STOHLER Unavailable [...] Real MD Primary Care Provider Noam HO-CHAO [place] Primary Care Provider Darius HO-JET INSPECTOR-Damaso Danni [place] Attending Provider Mario Zayas MD Primary Care Provider [phone] Mario Zayas MD Attending Provider Mario Zayas Attending Unavailable Mario Zayas Admitting Unavailable Noam PROPELLANT ASSEMBLER, [place] Unavailable Mario Zayas MD Primary Care Provider [...] of OnsetReaction(s) Facility (19 sources)GlutenPropensity to adverse fvuyfpkll48-94-2485RTNemours Foundation (19 sources)Isosorbide DinitrateDrug Eudjxly83-53-6683AajvlpetUGHY [facility] (11 sources)Gluten; Translations: [GLUTEN]Propensity to adverse reactions to food (disorder)44-09-4514XrdCdilll Repository (11 sources)Isosorbide; Translations: [ISOSORBIDE MONONITRATE]Drug Allergy 30-38-6908VrahtonrRdfNdeoxl Repository (1 source)ALLERGIES NOT ON FILE; Translations: [ALLERGIES NOT ON FILE]Propensity to adverse reactions (disorder)[facility] Repository Medications Current Medications MedicationDrug Class(es)DatesSig (Normalized)Sig (Original)[id number] 200 actuat albuterol 0.09 mg/actuat metered dose inhaler (20 sources)beta2-Adrenergic AgonistStart: 46-47-5490dsul 1 puff(s) by inhalation every four hours [...] mg/ml inhalation solution (20 sources)Anticholinergic, beta2-Adrenergic AgonistStart: 34-13-1417zaxm 1 mL by inhalation four times dailyIpratropium-Albuterol 0.5 mg-3 mg(2.5 mg base)/3 mL solution for nebulization Active 3 ML INHALATION Four times daily June 14, 2025 12:00am Complies with drug therapyStart: 67-26-0528qicgfzfnkxd- albuterol (Duo-Neb) 0.5-2.5 mg/3 mL nebulizer solution Take 3 mL by nebulization in themorning and 3 mL at noon and 3 mL in the evening and 3 mL before bedtime. 02/20/2022 ActiveStart: 85-33-0570Snyjvkenqbc-Albuterol 0.5-2.5 (3) MG/3ML Inhalation Solution Quantity: 1350 Refills: 0 Ordered: 20-Feb-2022 DO Start : 20-Feb-2022 Activeapixaban 5 mg oral tablet (20 sources)Factor Xa InhibitorStart: 06-04-2023 End: 27-19-3875wvyf 1 tablet by mouth in the morningapixaban [...] sources)Platelet Aggregation Inhibitor, Nonsteroidal Anti-inflammatory Drug Start: 53-00-2714qscu 1 tablet by mouth once dailyAspirin 81 mg tablet Active 81 MG PO Daily June 14, 2025 12:00am Complies with drug therapyStart: 99-98-1312nkdt 1 tablet by mouth in the morningaspirin 81 MG EC tablet Take 81 mg by mouth in the morning. 07/25/2022 Activeatorvastatin 80 mg oral tablet (20 sources)HMG-CoA Reductase InhibitorStart: 98-21-6721mwdn 1 tablet by mouth once dailyAtorvastatin 80 mg tablet Active 80 MG PO Daily June 14, 2025 12:00am Complies with drug therapyStart: 01-20-2023 End: 29-46-6319fviz 1 tablet by mouth in the morningatorvastatin (LIPITOR) 40 mg tablet Indications: Coronary artery disease involving coronary bypass graft of hamilton heart without angina pectoris , Hx of CABG , Paroxysmal atrial fibrillation (CMS-HCC) , Aneurysm of ascending aorta without rupture , History of maze procedure Take 1 tablet (40 mg total) by mouth in the morning. 90 tablet 1 02/19/2024 Activeazithromycin 250 mg oral tablet (20 sources)Macrolide AntimicrobialStart: 01-41-1703zhlr 1 tablet by mouth once dailyAzithromycin 250 mg tablet Active 250 MG PO Daily June 14, 2025 12:00am Complies with drug therapycapsaicin 0.75 mg/ml topical cream (1 source)Start: 10-77-9803Egwvdiank 0.075 % cream Active 1 APPLIC TOPICAL [...] 0.05 mg oral capsule (20 sources)Vitamin DStart: 44-88-5609psix 1 capsule by mouth once daily Cholecalciferol (Vitamin D3) 50 mcg (2,000 unit) capsule Active 50 MCG PO Daily June 14, 2025 12:00am Complies with drug therapy End: 51-61-7277edhr 1 tablet by mouth in the morningcholecalciferol (Vitamin D- 3) 25 MCG (1000 UT) tablet Take 1,000 Units by mouth in the morning. 2025 Discontinueddapagliflozin 10 mg oral tablet (10 sources)Sodium-Glucose Cotransporter 2 InhibitorStart: 02-10-2025 End: 98-45-2684mekxlkeqgaumv (Farxiga) 10 MG Take 10 mg by mouth 02/10/2025 02/10/2026 Activeferrous sulfate 325 mg delayed release oral tablet (20 sources)take 1 tablet by mouth at mealtimeferrous sulfate 325 (65 Fe) MG EC tablet Take 65 mg by mouth in the morning. Take with meals. Ptnqcv79 actuat fluticasone furoate 0.1 mg/actuat / umeclidinium 0.0625 mg/actuat / vilanterol 0.025 mg/actuat dry powder inhaler (20 sources)Anticholinergic, Corticosteroid, beta2-Adrenergic AgonistStart: 47-78-9173xdak 1 puff(s) by inhalation in the morningTrelegy Ellipta 100-62.5-25 MCG/ACT aerosol powder Inhale 1 puff in the morning. 03/15/2022 ActiveStart: 18-41-4193Udodpul Ellipta 100-62.5-25 MCG/INH AEPB Quantity: 180 Refills: 0 Ordered: 15-Mar-2022 DO Start : 15-Mar-2022 WxchgsYdzarpcuaer-Dvzqcemzq-Zuqcpjto (2 sources)Start: 75-59-5679Zrdgjfjurfz-Umeclidin-Vilanter (Trelegy Ellipta) 200-62.5-25 mcg blister with device Active 1 INH INHALATION Daily June 14, 2025 12:00am Complies with drug wbrvwtsrxdtvombjvl-adytonrvi-znfrchke (TRELEGY ELLIPTA) 200-62.5-25 mcg blister with device (10 sources)Start: 28-21-5196lzzwhbjwjvc-umeclidin-vilanter (TRELEGY ELLIPTA) 200-62.5-25 mcg blister with device 1 puff in the morning. 03/15/2022 Active gabapentin 600 mg oral tablet (14 sources)Anti-epileptic AgentStart: 89-38-3508crwa 1 tablet by mouth three times dailygabapentin (NEURONTIN) 600 mg tablet Take 1 tablet (600 mg total) by mouth 3 (three) times a day. 03/30/2022 ActiveStart: 72-17-4884Leqgpnmygh 300 MG Oral Capsule Quantity: 270 Refills: 0 Ordered: 30-Mar-2022 DO Start : 67-Zvs-5591Bvdrds73 hr isosorbide mononitrate 30 mg extended release oral tablet (19 sources)Nitrate VasodilatorStart: 68-52-2847xmya 1 tablet by mouth once daily, then take 1 tablet by mouth every twenty-four hoursisosorbide mononitrate ER (Imdur) 30 MG 24 hr tablet Take 30 mg by mouth Daily 06/13/2022 Active levoFLOXacin 500 mg oral tablet (2 sources)Quinolone AntimicrobialStart: 2025 End: 83-54-5730jovl 1 tablet by mouth once dailylevoFLOXacin (Levaquin) 500 MG tablet Indications: Otorrhea of right ear Take 1 tablet (500 mg) by mouth Daily for 10 days 10 tablet 2025 04/04/2025 Activelisinopril 5 mg oral tablet (20 sources)Angiotensin Converting Enzyme InhibitorStart: 79-15-6855ocrg 1 tablet by mouth once dailyLisinopril 5 mg tablet Active 5 MG PO Daily June 14, 2025 12:00am Complies with drug therapyStart: 01-20-2023 End: 52-15-8177qcli 1 tablet by mouth once daily in the morninglisinopriL (PRINIVIL,ZESTRIL) 5 mg tablet Indications: Coronary artery disease involving coronary bypass graft of hamilton heart without angina pectoris , Hx of CABG , Paroxysmal atrial fibrillation (CMS-HCC) , Aneurysm of ascending aorta without rupture , History of maze procedure TAKE 1 TABLET BY MOUTH ONCE DAILY IN THE MORNING 30 tablet 11/12/2024 ActiveStart: 65-15-9298Oeyqcpmyno 5 MG Oral Tablet Quantity: 90 Refills: 0 Ordered: 7-Jeffrey-2022 DO Start : 14-Mar-2022 Active meloxicam 15 mg oral tablet (10 sources)Nonsteroidal Anti-inflammatory DrugStart: 06-23-8824kayj 1 tablet by mouth once dailyMeloxicam 15 mg tablet Active 15 MG PO Daily June 14, 2025 12:00am Complies with drug boqoykp04 hr metoprolol succinate 50 mg extended release oral tablet (20 sources)beta-Adrenergic BlockerStart: 47-72-3455wzxx 2 tablets by mouth every twenty-four hours in the morning, then take 1 tablet by mouth in the e veningMetoprolol Succinate 50 mg tablet extended release 24 hr Active 50 MG PO .COMPLEX June 142:00am 50 mg orally; take 2 tablets by mouth in the morning and take 1 tablet by mouth in the evening Complies with drug therapy Start: 08-28-2690aytpkuiobb succinate XL (TOPROL XL) 50 mg 24 hr tablet Indications: Coronary artery disease involving coronary bypass graft of hamilton heart without angina pectoris , Hx of CABG , Paroxysmal atrial fibrillation (CMS-HCC) , Aneurysm of ascending aorta without rupture , History of maze procedure Take 100 mg in the morning and 50 mg at night 270 tablet 3 06/25/2023 ActiveStart: 76-89-9717mcts 1 tablet by mouth every twenty-four hoursMetoprolol Succinate ER 50 MG Oral Tablet Extended Release 24 Hour Quantity: 135 Refills: 0 Ordered: 23-Mar-2022 DO Start : 23-Mar-2022 Activenitroglycerin 0.4 mg sublingual tablet (20 sources)Nitrate VasodilatorStart: 43-15-5595eogcgctivpczr (Nitrostat) 0.[address] 0.4 mg under the tongue every 5 (five) minutes if needed for chest pain 07/25/2022 ActiveStart: 07-25-2022 End: 88-07-0132zxwvdoghcjqfz (NITROSTAT) 0.4 MG SL tablet Indications: Coronary artery disease involving coronary bypass graft of hamilton heart without angina pectoris , Paroxysmal atrial [...] otic solution (15 sources)Quinolone AntimicrobialStart: 02-17-2023 End: 54-32-3210pdjxlotkr (Floxin) 0.3 % otic solution Indications: Otorrhea of right ear Administer 5 drops into the right ear in the morning and 5 drops before bedtime. Do all this for 10 days. 5 mL 1 2025 04/04/2025 Active omeprazole 40 mg delayed release oral capsule (20 sources)Proton Pump InhibitorStart: 52-76-8037rmlb 1 capsule by mouth in the morningomeprazole (PriLOSEC) [address] capsule Take 40 mg by mouth in the morning. 03/19/2022 ActiveStart: 94-51-6549Htkczjsumr 40 MG Oral Capsule Delayed Release Quantity: 90 Refills: 0 Ordered: 19-Mar-2022 DO Start: 19-Mar-2022 ActiveOxygen (10 sources)oxygen Inhale continuously. Activepantoprazole 40 mg delayed release oral tablet (10 sources)Proton Pump InhibitorStart: 64-65-3870nozl 1 tablet by mouth once dailypantoprazole (ProtoNix) 40 MG EC tablet Take 40 mg by mouth Daily 02/07/2025 ActivepredniSONE 10 mg oral tablet (20 sources)Start: 02-97-7043ehrk 1 tablet by mouth once dailyPrednisone 10 mg tablet Active 10 MG PO Daily June 14, 2025 12:00am Complies with drug therapytake 1 tablet by mouth once dailypredniSONE (Deltasone) 20 MG tablet Take 20 mg by mouth Daily Activepregabalin 150 mg oral capsule (20 sources)Start: 02-18-2024 End: 15-73-2859qwdx 1 capsule by mouth in the morning, [...] mg oral tablet (20 sources)Phosphodiesterase 4 InhibitorStart: 53-27-0145jhvh 1 tablet by mouth in the morningDaliresp 500 MCG tablet Take 500 mcg by mouth in the morning. 03/15/2022 Activesodium chloride 9 mg/ml inhalation solution (7 sources)Start: 09-09-7664oaox 1 mL by inhalation every twelve hoursSodium Chloride 0.9 % solution for nebulization Active 3 ML INHALATION Q12H June 14, 2025 12:00am Complies with drug therapyStart: 52-27-5532qdgaal chloride 0.9 % nebulizer solution Inhale 3 mL 03/23/2025 Activespironolactone 25 mg oral tablet (8 sources)Aldosterone AntagonistStart: 02-09-2025 End: 36-33-0511vqry 1 tablet by mouth in the morningspironolactone (Aldactone) 25 MG tablet Take 25 mg by mouth in the morning. 02/09/2025 02/09/2026 Active SUMAtriptan 100 mg oral tablet (19 sources)Serotonin-1b and Serotonin-1d Receptor AgonistSUMAtriptan (Imitrex) 100 MG tablet ActiveTESTOSTERONE, BULK, MISC (10 sources)TESTOSTERONE, BULK, MISC by miscellaneous route. 100 mg 1 tablet daily Activetheophylline 400 mg extended release oral tablet (20 sources)MethylxanthineStart: 31-77-0035meka 1 tablet by mouth every twelve hoursTheophylline 300 mg tablet extended release 12 hr Active 300 MG PO Q12H June 14, 2025 12:00am Complies with drug therapyStart: 67-52-3282rcml 1 tablet by mouth in the morning, [...] oral tablet (8 sources)Central alpha-2 Adrenergic AgonistStart: 93-36-7824uucm 2 tablets by mouth at bedtimetiZANidine (Zanaflex) 4 MG tablet TAKE 2 TABLETS BY MOUTH AT BEDTIME FOR 30 DAYS 01/07/2025 Activetopiramate 50 mg oral tablet (8 sources)Start: 04-41-1643ytlu 1 tablet by mouth once dailytopiramate 50 MG tablet Take 1 tablet by mouth Daily 02/21/2025 Activezinc gluconate 50 mg oral tablet (20 sources)zinc gluconate 50 MG tablet 1 (one) time each day at the same time Active Completed/Discontinued Medications MedicationDrug Class(es)DatesSig (Normalized)Sig (Original)acetaminophen 300 mg / codeine phosphate 30 mg oral tablet (13 sources)Opioid AgonistStart: 06-12-2023 End: 99-94-4307uptg 1 tablet by mouth every six hours as needed for pain acetaminophen-codeine (Tylenol w/ Codeine #3) 300-30 MG tablet take 1 tablet by mouth every 6 hoursAS NEEDED FOR PAIN for 5 days 06/12/2023 2025 Discontinueddicyclomine hydrochloride 20 mg oral tablet (13 sources)AnticholinergicStart: 04-01-2023 End: 28-39-7317aklk 1 tablet by mouth three times daily for paindicyclomine (Bentyl) 20 MG tablet take 1 tablet by mouth three times a day if needed for abdominal pain 04/01/2023 2025 CwdoxsxwjifeHfkgbjujics-Nhefxyprf-Nyanmg 200-62.5-25 MCG/ACT aerosol powder (13 sources)Start: 11-19-2022 End: 65-20-5771hwxv 1 puff(s) by inhalation once daily Yzqwcvxjaqm-Gtechjinz-Abqkoh 200-62.5-25 MCG/ACT aerosol powder Inhale 1 puff 1 (one) time each day. 11/19/2022 2025 DiscontinuedStart: 51-52-3108vouj 1 puff(s) by inhalation once ixojoNzsklxzdkrn-Pytsohkuk-Yhrnuv 200-62.5-25 MCG/ACT aerosol powder Inhale 1 puff 1 (one) time each day. 11/19/2022 Activelysine 500 mg oral tablet (7 sources) End: 46-31-2996gdmz 1 tablet by mouth in the morninglysine 500 mg tablet Take 1 tablet (500 mg total) by mouth in the morning. 06/24/2024 DiscontinuedMaca 500 MG capsule (13 sources) End: 35-55-8320Vywx 500 MG capsule as directed Orally 2025 Discontinued [place] 500 MG capsule as directed Orally Activenaproxen sodium 220 mg oral tablet (13 sources)Nonsteroidal Anti-inflammatory Drug End: 76-29-8946pzmybsbq sodium (Aleve) 220 MG tablet every 12 (twelve) hours. 2025 Deifjjwadgmb53 hr naproxen sodium 220 mg / pseudoephedrine hydrochloride 120 mg extended release oral tablet (20 sources)alpha-Adrenergic Agonist, Nonsteroidal Anti-inflammatory Drug End: 08-73-8869zksa 1 tablet by mouth every twelve hours in the morning pseudoephedrine-Naproxen Na ER 120-220 MG tablet sustained-release 12 hour Take 1 tablet by mouth in the morning and 1 tablet before bedtime. 2025 Discontinuedsaw palmetto (Serenoa repens) 450 MG capsule (13 sources) End: 14-33-6638aon palmetto (Serenoa repens) 450 MG capsule as directed Orally 2025 Discontinuedsaw palmetto (Serenoa repens) 450 MG capsule as directed Orally Activesoybean lecithin 1200 mg oral capsule (13 sources) End: 84-01-3385gyno 1 capsule by mouth once dailyLecithin 1200 MG capsule Take 1 capsule every day by oral route. 2025 Discontinuedvitamin b12 1 mg oral tablet (20 sources)Vitamin B12 End: 02-87-4247nzfo 1 tablet by mouth in the morningcyanocobalamin (Vitamin B- 12) 1000 MCG tablet Take 1,000 mcg by mouth in the morning. 2025 Dis continued End: 33-28-6395zidqwmbxrldxdc (Vitamin B-12) 500 MCG tablet 1 (one) time each day at the same time. 2025 Discontinuedzonisamide 25 mg oral capsule (7 sources)Anti-epileptic Agent End: 67-98-1662aalz 1 capsule by mouth in the morning, then take 1 capsule by mouth at bedtimezonisamide (ZONEGRAN) 25 mg capsule Take 1 capsule (25 mg total) by mouth in the morning and 1 capsule (25 mg total) before bedtime. 06/24/2024 Discontinued Problems Active Problems Problem ClassificationProblemDateDocumented DateEpisodic/ChronicAortic; peripheral; and visceral artery aneurysms (20 sources)Aneurysm of thoracic aorta; Translations: [Thoracic aneurysm without mention of rupture]Onset: 881431-20-6352GzydejsLcnntty dysrhythmias (20 sources)Atrial fibrillation; Translations: [Atrial fibrillation]Onset: 098304-89-8573EdnbrdcQchpzhn obstructive pulmonary disease and bronchiectasis (20 sources)Chronic obstructive lung disease; Translations: [Chronic airway obstruction, not elsewhere classified]Onset: 01-22-2018 Resolved: 64-22-8788MphfjraJnoghjgnxwaw of device; implant or graft (20 sources)Arteriosclerosis of coronary artery bypass graft; Translations: [Atherosclerosis of coronary arterybypass graft(s) without angina pectoris] Onset: 474992-16-4289BvrwoaiSjcgzrdfir heart failure; nonhypertensive (14 sources)Chronic systolic heart failure; Translations: [Chronic systolic (congestive) heart failure]Onset: 08-16-2024 Resolved: 885954-39-3779DdwmomeLdlzotip atherosclerosis and other heart disease (18 sources)Coronary arteriosclerosis; Translations: [Coronary atherosclerosis of unspecified type of vessel, hamilton or graft]Onset: 08-16-2024 Resolved: 829890-72-3064NtkywwrRbfkabmaj of lipid metabolism (20 sources)Mixed hyperlipidemia; Translations: [Mixed hyperlipidemia]Onset: 06-24-2024 Resolved: 324596-76-6948XgmcbzkVjkukcuqu hypertension (20 sources)Hypertensive disorder; Translations: [Unspecified essential hypertension]Onset: 06-24-2024 Resolved: 828610-59-1162KkeffxnVodwjqtzu of skin (4 sources)H/O Malignant melanoma; Translations: [Personal history of malignant melanoma of skin]EpisodicMycoses (2 sources)Pain in toe; Translations: [Tinea unguium]80-43-2295RsiplpaoTrlqx aftercare (4 sources)Encounter for therapeutic drug level monitoring; Translations: [ENC THERAPEUTC DRUG LEVL MONITORING]Onset: 19-88-7950NyvcbnikXabas and ill-defined heart disease (1 source)Heart disease, unspecified; Translations: [Heart disease, unspecified] Onset: 84-57-5553JbjjclpSiekl and ill-defined heart disease (5 sources)Left ventricular cardiac dysfunction; Translations: [Heart disease, unspecified]Onset: 782373-71-3432ZylxqzrCksgp ear and sense organ disorders (4 sources)Otorrhea [...] system disorders (19 sources)Neuropathy; Translations: [Polyneuropathy, unspecified]Onset: 876378-49-0613GolcaxjZpztg nervous system disorders (20 sources)Polyneuropathy; Translations: [Polyneuropathy, unspecified]Onset: 06-27-2023 Resolved: 208426-46-7991MzkrppdFggvb nervous system disorders (3 sources)Carpal tunnel syndrome of left wrist; Translations: [Carpal tunnel syndrome, left upper limb]55-50-2948VdlcdkxPciph nervous system disorders (6 sources)Tremor; Translations: [Tremor, unspecified]36-90-2478NkxugicaGxvgs nutritional; endocrine; and metabolic disorders (2 sources)Morbid (severe) obesity due to excess calories; Translations: [Morbid (severe) obesity due to excess calories]Onset: 41-58-3176EalugfgSqssc nutritional; endocrine; and metabolic disorders (2 sources)Body mass index (BMI) 35.0-35.9, adult; Translations: [Body mass index (BMI) 35.0-35.9, adult]Onset: 47-74-4286TzgqlxyZrdpy screening for suspected conditions (not mental disorders or infectious disease) (2 sources)Abnormal result of other cardiovascular function study; Translations: [Abnormal result of other cardiovascular function study]Onset: 04-06-2025 EpisodicOtitis media and related conditions (4 sources)Dysfunction of right eustachian tube; Translations: [Unspecified Eustachian tube disorder, right ear]43-70-4312BzjpvjlpEtuwvrbdew and visceral atherosclerosis (2 sources)Peripheral vascular disease; Translations: [Peripheral vascular disease, unspecified]31-37-3416NkemkvqDtrw and subcutaneous tissue infections (2 sources)Paronychia of toe of left foot; Translations: [Cellulitis of left toe]69-42-4469RlhsvkqwUbajlnssdqj; intervertebral disc disorders; other back problems (20 sources)Degeneration of lumbar intervertebral disc; Translations: [DDD (degenerative disc disease), lumbar]Onset: 658873-70-5750Mjlahfi Unclassified (1 source)Neck Pain / 485385()Onset: 89-04-2428Igzysfermzio (1 source)Stiffness / 343()Onset: 38-64-8232Kfhwwpubdefu (1 source)Back Pain / 12()Onset: 54-49-7993Mtkxfvakachi (1 source)Upper Extremity Weakness / [id number]()Onset: 37-78-8047Gslbgwguktiu (1 source)M54.2 - Cervicalgia,M51.369 - Other intervertebral disc degeneration, lumbar region without mention of lumbar back pain or lower extremity pain,M54.17 - Radiculopathy, lumbosacral regionUnclassified (1 source)Aneurysm of the ascending aorta, without rupture; Translations: [Aneurysm of the ascending aorta, without rupture]Onset: 06-86-5567Lydydotuqtnx (2 sources)Abnormal stress testOnset: 60-17-2907Quxngezktjgq (1 source)Abdominal aortic aneurysm, without rupture, unspecified; Translations: [Abdominal aortic aneurysm, without rupture, unspecified]Onset: 12-31-2024 Unclassified (1 source)Obesity, class 2; Translations: [Obesity, class 2]Onset: 08-16-2024 Past or Other Problems Problem ClassificationProblemDateDocumented DateEpisodic/ChronicCardiac dysrhythmias (19 sources)Sinus tachycardia; Translations: [Tachycardia, unspecified]Onset: 01-22-2018 Resolved: 432535-14-0354GlubjfjfPqejzlha, including migraine (20 sources)Headache; Translations: [Occipital headache]Onset: 04-08-2018 Resolved: 649992-70-2607KnvrkvavQrhwxqwjgugf with complications and secondary hypertension (8 sources)Hypertensive heart failure; Translations: [Hypertensive heart disease with heart failure]Onset: 2025 Resolved: 598220-42-9382RrbvgadClzamazreudcwl (8 sources)Arthritis; Translations: [Unspecified osteoarthritis, unspecified site]Onset: 08-16-2024 Resolved: 167892-74-1371QonzjpwWxkwm aftercare (12 sources)Long-term current use of anticoagulant; Translations: [residential (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 of 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]Onset: 08-16-2024 Resolved: 756851-44-5359EnupootgUxigq aftercare (2 sources)intermediate project 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 of 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; Translations: [intermediate project 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 of 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]Onset: 08-45-4800UuhkndkrNwqhc gastrointestinal disorders (19 sources)Celiac disease; Translations: [Celiac disease]Onset: 03-04-2019 Resolved: 932009-40-2451CbdikesEeuek male genital disorders (8 sources)Male erectile dysfunction, unspecified; Translations: [Impotence of organic origin]Onset: 08-16-2024 Resolved: 140457-35-6682HgkohuaIgiwa nervous system disorders (20 sources)Paresthesia; Translations: [Paresthesia of skin]Onset: 01-20-2024 59-92-2990YeadfjnrTyxsj non-traumatic joint disorders (8 sources)Pain in wrist; Translations: [Pain in unspecified wrist]Onset: 08-16-2024 Resolved: 045187-76-6936BotckpxzAeueg nutritional; endocrine; and metabolic disorders (8 sources)Severe obesity; Translations: [Class 2 severe obesity due to excess calories with serious comorbidity and body mass index (BMI) of 35.0 to 35.9 in adult]Onset: 08-16-2024 Resolved: 172745-09-1056MejpjhwNpeqqtnr codes; unclassified (20 sources)History of maze procedure for atrial fibrillation; Translations: [Other specified postprocedural states]Onset: 550200-41-3892Upaaqjmz Screening and history of mental health and substance abuse codes (1 source)Personal history of nicotine dependence; Translations: [PERSONAL HISTORY OF NICOTINE DEPEND]Onset: 43-79-7282KkcrlgulKcdnkxnrzhz; intervertebral disc disorders; other back problems (20 sources)Cervicalgia; Translations: [Neck pain]Onset: 04-08-2018 Resolved: 641391-42-7279PxltigylFuhbutpfuafe (1 source)Aneurysm of the ascending aorta, without rupture; Translations: [Aneurysm of the ascending aorta, without rupture]Onset: 44-36-2071Iimlvtucyeph (1 source)Abdominal aortic aneurysm, without rupture, unspecified; Translations: [Abdominal aortic aneurysm, without rupture, unspecified]Onset: 12-31-2024 Unclassified (1 source)Obesity, class 2; Translations: [Obesity, class 2]Onset: 08-16-2024 Results Test NameValueInterpretationReference InwusPlzrollq44gg 74-87-141070FvuvcMD Tari Hagan MA Good lipids and LFTs, continue atorvastatin and recheck in 6 months LVM to advise patient of his lab results per Dr. Whaley request.Normal [facility] MemorialUrine Cultureon 25-68-1612Rgzdcyft identified Cx Nom (U)No Growth 2 Days PERFORMED BY: [place] [address] PATHOLOGIST J2EE DEVELOPER MICHEL PACHECO M.D.NormalHoly Cross Hospital Physician GroupComment on above: Performed By: #### [facility] #### [place] [address] USAOffice Visiton 84-46-4776Aigxzn-up [id number] Elise Tabor 1960 M Date Provider Department Center 05/27/2025 [id number] GARZA Family History Problem Relation Age of Onset Coronary artery disease Mother Coronary artery disease Father Family Status - Relation Status Age at Mother Father Sister Alive Level of Service:39107 AR OFFICE/OUTPATIENT ESTABLISHED MOD MDM 30 MIN Reason for Visit and Comments: Follow-up [[id number]] - Patient is here today for a follow up s/p cath. Patient states heart desir he feels well. Patient states he fell around labor day and possibly tore a hamstring. Post-Cath [731] Coronary Artery Disease [187] Hyperlipidemia [182] Hypertension [332165] Thoracic aortic aneurysm without rupture [Other] Cardiomyopathy [104] Atrial Fibrillation [80] Congestive Heart Failure [127][facility] 90-72-4688WXDM Attestation signed by Juan Flores MD at 04/21/2025 12:57 PM I personally spoke with and examined Mr. Tabor with Dr. Saleh. He has a drop in LVEF and a positive stress test. Plan cors, LV and WALTERS angiography. He voices understanding of risks (, NV, bleeding, etc) and agrees to proceed. Patient: [...] Celiac disease 08/16/2024 Coronary artery disease involving hamilton coronary artery of hamilton heart without angina pectoris 08/16/2024 Erectile dysfunction 08/16/2024 Pain in wrist 08/16/2024 Peripheral polyneuropathy 08/16/2024 Cardiomyopathy, ischemic 08/16/2024 Chronic systolic heart failure (CMS/HCC) 08/16/2024 Chronic anticoagulation 08/16/2024 Pure hypercholesterolemia 08/16/2024 Class 2 severe obesity due to excess calories with serious comorbidity and body mass index (BMI) of 35.0 to 35.9 in adult ([facility]) 08/16/2024 Mixed hyperlipidemia 06/24/2024 Essential hypertension 06/24/2024 DDD (degenerative disc disease), lumbar 01/20/2024 Neuropathy 01/20/2024 Paresthesia 01/20/2024 History of maze procedure 05/20/2022 Paroxysmal A-fib ([facility]) 05/20/2022 Thoracic aortic aneurysm without rupture 05/20/2022 Cervicalgia 04/08/2018 Headache in back of head 04/08/2018 Abnormal cardiovascular stress test 04/05/2025 Allergies: Allergies[2] 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 Lars Saleh PGY-4 [employer] [facility] [1] Past Medical History: Diagnosis Date Abnormal ECG Aneurysm Arrhythmia Atrial fibrillation ([facility]) Cardiomyopathy ([facility]) COPD (chronic obstructive pulmonary disease) ([facility]) Coronary artery disease Hyperlipidemia Hypertension [...] by mouth 3 times (more content not included)...[facility] HospitalHPon 69-36-3571GHC&P reviewed. The patient was examined and there are no changes to the H&P. Will proceed with coronary angiography for further evaluation of abnormal stress test. Consent for blood products obtained. Risks, benefits, and alternatives to procedure discussed with patient in detail who expressed understanding and agreed to proceed.[facility] HospitalNURSNOTEon 04-21-2025 NURSNOTERN educated pt on d/c [...] wheeled off of unit with all of belongings.[facility] HospitalNURSNOTEPatient requesting resp do his DuoNeb nebulizer prior to having his cath done. Resp supervisor electronic coils called to have the treatment done - states someone will be down as soon as possibleNoThe MetroHealth SystemResults Follow-Upon 89-98-7614Utjjvfw Follow-[id number] Elise Tabor 1960 M Date Provider Department Center 04/21/2025 [id number]-CTIKADBENNY DIAZ [facility] CARD DC HeartVAS Family History Problem Relation Age of Onset Coronary artery disease Mother Coronary artery disease Father Family Status - Relation Status Age at Mother Father Sister AliveNoChillicothe Hospital 46-01-4528DYFqyxyaqs Office Cardiology Clinic Note Reason for cardiology [...] procedure, paroxysmal atrial fibrillation, s/p ablation in [place], thoracic aortic aneurysm, left ventricle dysfunction, hypertension, hyperlipidemia COPD, prior tobacco and alcohol abuse He used to follow with [facility] cardiology. He states that overall he has [...] Rfl: theop (more content not included)...[facility] Office Visiton 53-05-2359Ozxxbr-up [id number] Elise Tabor 1960 M Date Provider Department Center 04/14/2025 62235-VBYTQABENNY GARZA [facility] Family History Problem Relation Age of Onset Coronary artery disease Mother Coronary artery disease Father Family Status - Relation Status Age at Mother Father Sister Alive Level of Service:64348 AR OFFICE/OUTPATIENT ESTABLISHED MOD MDM 30 MIN Reason for Visit and Comments: Follow-up [625320] Abnormal stress test [Other] Cardiac Cath scheduled 04/28/2025 [Other] Coronary Artery Disease [187] Hyperlipidemia [182] Congestive Heart Failure [127] Hypertension [213260] COPD [313] Home o2 3lpm via N/C 31/03 [Other]NormalK[facility]tering Health [facility] Memorial36on 14-35-644988HkeqlMD Tari Hagan MA Overall echo is normal with minor valvular heart disease LVM to advise patient of Dr. Diaz's findings.[facility] HospitalOrders Onlyon 76-08-6512Gitope [id number] Elise Tabor 1960 M Date Provider Department Center 04/05/2025 928-DANNI THOMAS [facility] Family History Problem Relation Age of Onset Coronary artery disease Mother Coronary artery disease Father Family Status - Relation Status Age at Mother Father Sister AliveMercy Health Willard HospitalResults Follow-Upon 91-25-1889Ytcfind Follow-[id number] Elise Tabor 1960 M Date Provider Department Center 04/02/2025 BENNY NICOLE [facility] CAROL ANN DC HeartVAS Family History Problem Relation Age of Onset Coronary artery disease Mother Coronary artery disease Father Family Status - Relation Status Age at Mother Father Sister AliveNormalUWyandot Memorial HospitalOrders Onlyon 03-21-2025 Orders [id number] Elise Tabor 1960 M Date Provider Department Center 03/21/2025 [id number]-[id number], HISTORICAL [facility] Family History Problem Relation Age of Onset Coronary artery disease Mother Coronary artery disease Father Family Status - Relation Status Age at Mother Father Sister AliveNoThe Metro[facility] System36on 76-35-729188Lrwbxsyjo lab results from 01/19/2025 and echo from [...] labs prior to apt in Apr-May 2025. [facility] HospitalOrders Onlyon 70-25-2462Zbrqqe Only [id number] Elise Tabor 1960 M Date Provider Department Center 02/04/2025 [id number]-UEZOVTYT, HISTORICAL SHAVON Cary Family History Problem Relation Age of Onset Coronary artery disease Mother Coronary artery disease Father Family Status - Relation Status Age at Mother Father Sister AliveNormalUniversSelect Medical Specialty Hospital - AkronOffice Visiton 12-31-2024 Follow-up [id number] Elise Tabor 1960 M Date Provider Department Center 12/31/2024 04258-UWHRCHBENNY DIAZ Family History Problem Relation Age of Onset Coronary artery disease Mother Coronary artery disease Father Family Status - Relation Status Age at Mother Father Sister Alive Level of Service:94039 AR OFFICE/OUTPATIENT ESTABLISHED MOD MDM 30 MIN Reason for Visit and Comments: Coronary Artery Disease [187] Hyperlipidemia [182] Hypertension [897968][facility]36on Regarding echo and CTA chest performed [...] increasing atorvastatin per Dr. Diaz. He verbalized understanding.[facility] HospitalOffice Visiton 38-40-1096Wnjgxt-up [id number] Elise Tabor 1960 M Date Provider Department Center 08/16/2024 [id number]-CDHKGGBENNY DIAZ Family History Problem Relation Age of Onset Coronary artery disease Mother Coronary artery disease Father Family Status - Relation Status Age at Mother Father Level of Service:69007 AR OFFICE/OUTPATIENT NEW MODERATE MDM 45 MINUTES Reason for Visit and Comments: Atrial Fibrillation [80] - Had EKG at last apt with [facility] in Jun 2024. Denies chest pain and bleeding on Eliquis. Coronary Artery Disease [187] - CABG and MAZE in 2016 Hypertension [629934] Hyperlipidemia [182] COPD [313] - [facility]guera [facility] Ordered By: Juana Hercules on 74-10-4101AzfEpaccn Health SystemEMG 1 Extremeityon 82-29-0064PSBT HealthcareNVC 7-8 Nerveson 53-17-4011VRDY Healthcare THEOPHYLLINEon 36-70-5934ZYRLEFSJJFFK63.0 ug/bAQkjyjs32.0-20.0[facility] Hospital - CincinnatiComment on above:Performed By: #### BRYAN #### [facility] [address] [address] [address] Karen LeeTHEOPHYLLINEon 91-83-2840GHKNVUYUECZK4.3 ug/mLCritically low 10.0-20.0[facility] Hospital - CincinnatiComment on above:Performed By: #### BRYAN #### [facility] [address] [address] [address] Karen Lu Pressure Cuff Sizeon 86-97-8209Ggst risk assessmenta) No falls within the last yearMG-CT Surgery[facility] Work Phone: Tobacco use status CPHSb) NoMG[facility] Work Phone: blood Pressure Cuff SizeLargeMG-[facility] Work Phone: Office Visit (Thoracic and Esophageal Surgery)on 57-69-8163Wrpfdo-up visitDiagnoses/Problems Assessed Atrial fibrillation (427.31) (I48.91) COPD [...] Activated Vitals Vital Signs Recorded: 29May2022 02:58PM Nxehtyduxdv55.2 F Heart Rate91 Hssdlcmuhon94 Ntbyqkoy647 Qyaztyauo48 Blood Pressure Cuff SizeLarge Height5 ft 7.32 in Sdxblc118 lb 7 oz BMI Orklwwytmh31.15 kg/m2 BSA Calculated2.19 Tobacco Useb) No Falls Screening (Age 18+)a) No falls within the last year O2 Tpbhlihetg85, Nasal Cannula Pain Scale7 Physical Exam The [...] 29 2022 3:24PM EST (Author) [facility] Referral Letteron 76-68-5903OG Referral LetterMr. Tabor is referred for consideration [...] MD; May 29 2022 3:24PM EST (Author) [facility] TouchworksCT LUNG CANCER SCREENINGon 50-73-2277LF LUNG CANCER SCREENING EXAMINATION: CT LUNG CANCER [...] Electronically authenticated by: ALEYDA DYER Date: 2022-04-26 16:20[facility] Medical CenterHEMOGLOBINon 51-11-0843Jbzyfuynmk (Bld) [Mass/Vol]13.6 g/dL Critically low14.0-18.0[facility] Hospital - CincinnatiComment on above:Performed By: #### HGB #### [facility] [address] [address] [address] Karen Pedroza Noteson 68-86-4212Noxnjuv mass concEnctorrance memorial medical centerer Department: [facility]ENTERAB THERAPYProgress Notes by Jacquelyn Rivera PT [...] Pt self discharged with last txsession with COMPOSITION WORKER.Patient is being discharged due to not returning to therapy and/or Plan of Care being .Recommend patient continue with HEP previously instructed on during therapy as appropriate.Patient may be reinstated in therapy upon new evaluation and orders from the physician.Thank You.[facility] - ColumbusProgress Noteson 04-23-2018 Protein mass concEncounter Department: [facility]ENTERAB THERAPYProgress Notes by Berlin Valle PTA at 04/23/2018 9:00 AMAuthor: Berlin Valle PTAService: (none)Author Type: Physical Therapy AssistantFiled: 04/23/2018 9:46 AMEncounter Date: 04/23/2018Status: SignedEditor: Berlin Valle PTA (Physical Therapy Assist ant)Physical Therapy Treatment NoteVisit Number: 5Encounter diagnosis:ICD-10-CM1.KswusjnujnaS55.22.Headache in back of ufqtE01Efmlykp Medical Diagnosis:SUBJECTIVE: Pt requests today being his [...] t-band- Scap retract x15- B UE ext q80Ibyl tucks x15GTB rows 7s86Bywpks- STM along c-spine paraspinals, UT, and levator [...] Treatment Time: 10Total Treatment Time: 25 PT TreatmentNoSouthern Ohio Medical Center Progress Noteson 71-65-4958CwunzyyVermont Psychiatric Care Hospital Department: [facility] REHAB THERAPYProgress Notes by Berlin Valle PTA at 04/21/2018 9:00 AMAuthor: Berlin Valle PTAService: (none)Author Type: Physical Therapy AssistantFiled: 04/21/2018 9:46 AMEncounter Date: 04/21/2018Status: SignedEditor: Berlin Valle PTA (Copy Messenger)Physical Therapy Treatment NoteVisit Number: 4Encounter diagnosis:ICD-10-CM1.WrhvelatmrqO53.22.Headache in back of kovdP81Qskcyqv Medical Diagnosis: CervicalgiaSUBJECTIVE:Compliance with HEP: Pt states [...] 30'Green t-band- Scap retract x15- B UEext z56Rkwg tucks x15GTB rows 5z63Zmfdeq- STM along c-spine paraspinals, UT, and levator [...] in rotation and SB without increase in pain.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22.Headache in back of nibhU04Qqsqoda Medical Diagnosis: CervicalgiaSUBJECTIVE:Compliance with HEP:Patient reports compliance [...] t-band- Scap retract x15- B UE ext w00Insa tucks x15GTB rows 6h73Injmdk- STM along c-spine paraspinals, UT, and levator [...] Treatment Time: 28Total Treatment Time: 43 PT TreatmentNoSouthern Ohio Medical CenterProgress Noteson 90-80-3361OlcsqjkVermont Psychiatric Care Hospital Department: [facility]AB THERAPYProgress Notes by Berlin Valle PTA at 04/10/2018 9:00 AMAuthor: Berlin Valle PTAService: (none)Author Type: Physical Therapy AssistantFiled: 04/10/2018 10:21 AMEncounter Date: 04/10/2018Status: SignedEditor: Berlin Valle PTA (Copy Messenger)Physical Therapy Treatment NoteVisit Number: 2Encounter diagnosis:ICD-10-CM1.YwazqixbxcaU37.22.Headache in back of vrpcA65Zowjoyc Medical Diagnosis: CervicalgiaSUBJECTIVE:Compliance with HEP: Pt reports [...] UT stretch 3x 30'Chin tucks x15GTB rows 0p33QGH: chin tuck, UT andLS stretch, scap squeeze.Mechanical [...] in rotation and SB without increase in pain.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 HospitalProgress Noteson 69-46-7582Tbyynox [facility] concEncounter Department: [facility]AB THERAPYProgress Notes by Jacquelyn Rivera PT at 04/08/2018 1:45 PMAuthor: Jacquelyn Rivera PTService: (none)Author Type: Physical TherapistFiled: 04/08/2018 6:47 PMEncounter Date: 04/08/2018Status: SignedEditor: Jacquelyn Rivera PT (Physical Therapist)Physical Therapy EvaluationEncounter diagnosis:ICD-10-CM1.AvyfbvuetvoO88.22.Headache in back of bjclX57Whojggmnc provider: Mellisa Clarke,*Primary Medical Diagnosis: CervicalgiaPlan of [...] Home: 15Prior Level of Functioning: Level of Inyo: Modified IndependentCurrent Level of Functioning: Outcome Scor e: NDI (26 raw score NDI, 52% disability) Functional deficits: reports no functional deficits, ableto do everything just withincreased pain. Level of Inyo: Modified IndependentSleep Status/Sleep Hygiene: Preferred Sleep Position: [...] codes)G8978 Mobility Current Status; Severity: CK 40-59% jcerjoomQ3894 Mobility Goal Status; Severity: CI 1-19% impairedOutcome measure(s)/Test(s) used/Result(s): 52% disability on NDI.Clinical Judgment: Moderate to severe impairement, decreased neck ROM and strength, tenderness totrigger points moderateNew Category to Vgkaya-Rh-Tktn only?:NoEvaluation Breakdown DescriptionPatient HistoryComorbiditiesEnvironmental/Personal factorsLearning/CognitionDomestic life*Issue must [...] in rotation and SB without increase in pain.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 Ceremonial Celebrant Goals: LTG to be met by 06/08/18 [...] Time: 60Time in: 1:44Time Out: 2:45 PT alSelect Medical Specialty Hospital - Columbus Vital Signs Date TimeVital SignValuePerforming FiemsawzjXhfkvxwr94-49-5135 09:50-0400Body wpisgd541.8 cmYuri Rodriguez DPM Work Phone: [facility] SystemMqhekuxmer76-07-1804 09:50-0400Body mass index (BMI) [Ratio]35.87 kg/j8IykgdlbaYuri Rodriguez DPM Work Phone: [facility] SystemTuuxwukuhe15-07-3614 09:50-0400Body tifewl734.4 kgFaheemcorbyivonne Rodriguez DPM Work Phone: [facility] SystemCeuvgaiqea95-33-9408 09:50-0400Respiratory rate18 /Gaylacorbyivonne Jae DPM Work Phone: [facility] SystemCswnivymwq56-78-9943 11:48-0400Body iedghp215.13 kgDokevin Zayas MD Work Phone: [facility]10-07-2025 11:48-0400 Heart rate75 /Roslyn Zayas MD Work Phone: [phone])166-[address] [place], [place] 1726710-07-2025 11:48-0400 Inhaled oxygen flow rate3 L/Roslyn Zayas MD Work Phone: [phone])490-[address] [place], [place] 1726710-07-2025 11:48-0400 Respiratory rate16 /Roslyn Zayas MD Work Phone: [phone])526-[address] [place], [place] 1726710-07-2025 11:48-0400 SaO2% (BldA) [Mass fraction]93 %Mario Zayas MD Work Phone: [phone])672-[address] [place], [place] 1726708-08-2025 09:22-0400 Body .8 cmPaul Biedenbach DO Work Phone: [facility] SystemZixutddmmw69-32-7113 09:22-0400Body mass index (BMI) [Ratio]35.87 kg/m2Paul Biedenbach DO Work Phone: [facility] SystemLlqnmkbicm42-86-6289 09:22-0400Body zymkho323.4 kgPaul Biedenbach DO Work Phone: [facility] SystemHfnfyfvnxt57-32-2357 09:00-0400Body nyulgv842.8 cmPaul Biedenbach DO Work Phone: [facility] SystemWtfgzwcomc43-65-2813 09:00-0400Body mass index (BMI) [Ratio]35.87 kg/m2Paul Biedenbach DO Work Phone: [facility] SystemJosfeazilr37-97-7711 09:00-0400Body sswcog499.4 kgPavesna Krishnan DO Work Phone: [facility] SystemWobggasjet98-44-1254 10:42-0400Body .8 Yair Hall PA Work Phone: NOFre[facility] & Sports MedicineCtbhxzpypk52-22-6313 10:42-0400Body mass index (BMI) [Ratio]35.87 kg/m2Linsey Hall PA Work Phone: [facility] SystemEgbucoghad31-07-1843 10:42-0400Body ymqhnf379.4 Moira Hall PA Work Phone: [facility] SystemBroiwtiang65-91-2573 10:42-0400Diastolic blood viptwyhb10 mm[Hg]Linsey Hall PA Work Phone: [facility] SystemFlggxvgaqz19-13-0835 10:42-0400Heart rate75 /min Linsey Hall PA Work Phone: [facility] SystemBpstjcnkxc93-69-1998 10:42-0400Respiratory rate16 /minLinsey LI Work Phone: [address] [address]Dtxtexuigl17-13-8562 10:42-8622EyF8% (BldA) [Mass fraction]94 %Linsey Hall PA Work Phone: [facility] SystemXjtpamgkft83-65-3099 10:42-0400Systolic blood qfvyvyth139 mm[Hg]Linsey Hall PA Work Phone: [facility] SystemYykqbjjfgo08-84-4157 13:52-0400Body goattc392.7 Kristi Taylor MD Work Phone: [facility]10-17-2024 13:52-0400Body mass index (BMI) [Ratio]37.26 kg/u1XmukhGillian Taylor MD Work Phone: [facility]10-17-2024 13:52-0400Body hvtwua088.13 Rafael Taylor MD Work Phone: [facility]10-17-2024 13:52-0400Diastolic blood ksadvwix57 mm[Hg]Gillian Taylor MD Work Phone: [facility]10-17-2024 13:52-0400Heart rate 74 /minGillian Taylor MD Work Phone: [facility]10-17-2024 13:52-1419EyK5% (BldA) [Mass fraction]94 %Gillian Taylor MD Work Phone: [facility]10-17-2024 13:52-0400Systolic blood bjwmewhc306 mm[Hg]Gillian Taylor MD Work Phone: [facility]10-02-2024 11:17-0400Body vulise427.7 cmAakash LI Work Phone: [facility] SystemWbaytwiora99-11-0139 11:17-0400Body mass index (BMI) [Ratio]38.01 kg/m2Linsey LI Work Phone: [facility] SystemJpfxgjpwrk69-43-1394 11:17-0400Body .4 kgLinsey LI Work Phone: [facility] SystemNsdhnwsnfs06-62-7976 11:17-0400Diastolic blood bcfczamp50 mm[Hg]Linsey LI Work Phone: DNS:NetFreeman [facility]ics & Sports MedicineYwnkoflzax34-88-6842 11:17-0400Heart rate78 /min Linsey LI Work Phone: DNS:NetFre[facility] & Sports MedicineQtuhxvtpzd86-43-2455 11:17-0400Respiratory rate16 /minLinsey LI Work Phone: NOFre[facility] & Sports MedicineEbcclxioso79-61-7635 11:17-2339AjU9% (BldA) [Mass fraction]93 %Linsey LI Work Phone: NO[facility] Sports MedicineAxyfdrjhax03-01-7053 11:17-0400Systolic blood rygoymod712 mm[Hg]Linsey Hall PA Work Phone: NOFre[facility] Sports MedicineHmitlzaonu11-01-5112 14:58-0400Body ozewoc244.99 cmReferring Provider UnknownMG-CT Surgery[facility] Work Phone: 1(124) 110-335609-21-2022 14:58-0400Body mass index (BMI) [Ratio] 37.15 kg/h0Sgwabbgzb Provider UnknownMG-[facility] Work Phone: 1(336) 802-804309-21-2022 14:58-0400Body surface area Derived from formula2.19 v4Fbayxisxu Provider UnknownMG-[facility] Work Phone: 1(851) 992-209609-21-2022 14:58-0400Body ndwugcbtmcm53.2 [degF] Referring Provider UnknownMG-[facility] Work Phone: 1(719) 182-382209-21-2022 14:58-0400Body ibnjmz852.61 kgReferring Provider UnknownMG-[facility] Work Phone: 1(798) 479-769609-21-2022 14:58-0400Diastolic blood imouvfia93 mm[Hg] Referring Provider UnknownMG-[facility] Work Phone: 1(304) 186-850409-21-2022 14:58-0400Heart rate91 /minReferring Provider UnknownMG-[facility] Work Phone: 1(912) 953-268209-21-2022 14:58-0400Respiratory rate18 /minReferring Provider UnknownMG-[facility] Work Phone: 1([phone]) 758-311109-21-2022 14:58-1563GzT4% (BldA) [Mass fraction]93 % Referring Provider UnknownMG-[facility] Work Phone: 1(339) 380-564409-21-2022 14:58-0400Systolic blood nxqbgavd286 mm[Hg] Referring Provider UnknownMG-[facility] Work Phone: 1(248) 509-457709-21-2022 14:58-60657 1Referring Provider UnknownMG- [facility] Work Phone: comment on above:PainScale Encounters Encounter DateEncounter TypeCare ProviderFacilityStart: 06-23-2025 End: 36-92-3158Avbatl flowsheetYuri Rodriguez DPM Work Phone: [facility] CI PODIATRYStart: 06-23-2025 End: 23-00-8920Xvldyc flowsStan Rodriguez DPM Work Phone: [facility] CI PODIATRYStart: 06-23-2025 End: 91-58-7482vctxwxgcoxXZXJJRVR A BROWNNot AvailableStart: 06-23-2025 End: 52-41-9361Rxbzol outpatient new 30 minutesYuri Rodriguez DPM Work Phone: [facility] CI PODIATRYComment on above:PVD (peripheral vascular disease); Other polyneuropathy; Pain due to onychomycosis of toenails of both feet; Paronychia, toe, leftStart: 06-14-2025 End: 60-42-9916lefusooyidWfeqeyv M Hoy MD Work Phone: [facility] Work Phone: Start: 06-14-2025 End: 37-96-5925Klwkots encounter Goyo Mccoy PTLA-REM-S-[facility] [place] Work Phone: Start: 06-14-2025 End: 84-48-2003kszxkkrpktNhihlgg M Hoy MD Work Phone: [facility] Work Phone: Start: 06-14-2025 End: 41-07-7581Qsttzbud ReferredMario Hogan MD-LAB [facility] Start: 05-27-2025 End: 24-97-8133gnrmyqcmdwLXUPC [facility] Springfieldtart: 49-29-5600xxjbmstamoEWCIZKSPEKP Protestant Hospitaltart: 04-21-2025 End: 17-66-3409pliayomxbnTFXRSZBRFVC [facility] Start: 04-15-2025 End: 41-93-8007Lzltxk flowsHesham Krishnan DO Work Phone: [facility] OtolaryngologyStart: 04-15-2025 End: 19-15-3711Bbfwgy flowsheetPaul S Biedenbach DO Work Phone: [facility] OtolaryngologyStart: 04-15-2025 End: 07-68-1982Swgvsu outpatient visit 25 minutesPaul S Biedenbach DO Work Phone: [facility] OtolaryngologyComment on above:Otorrhea of right ear (Primary Dx); Dysfunction of right eustachian tube; Chronic anticoagulationStart: 04-15-2025 End: 40-91-4305zwcqissmleZCUV S BIEDENBACHNot AvailableStart: 04-14-2025 End: 96-60-9710pgydaoiydaAJVFLUniversity Hospitals Portage Medical Centertart: 2025 End: 27-62-3111Midpmg flowsheetPaul S Biedenbach DO Work Phone: no ENT SANDUSKYStart: 2025 End: 28-74-4896Ewbhyn flowsheetPaul S Biedenbach DO Work Phone: NO ENT SANDUSKYStart: 2025 End: 81-12-1250Jlprgd outpatient visit 15 minutesPaul S Biedenbach DO Work Phone: [facility] ENT SANDUSKYComment on above:Dysfunction of right eustachian tube (Primary Dx); Otorrhea of right ear; Chronic anticoagulationStart: 2025 End: 12-38-3016iazsfpevpbUIBL S BIEDENBACHNot AvailableStart: 12-31-2024 End: 08-99-1762qnnjtjuhczNIFVRUniversity Hospitals Portage Medical Centertart: 12-27-2024 End: 23-14-5521Lnhnsn flowsheetAngela Lowe PA Work Phone: aNA PRESTONtart: 12-27-2024 End: 08-31-4528Ejikrr flowsheetAngela Lowe PA Work Phone: ana BELLEVUEStart: 12-27-2024 End: 44-56-8463Diwewu outpatient visit 15 minutesLinsey LI Work Phone: ana ASHISHUEComment on above:Degeneration of intervertebral disc of lumbar region with discogenic back pain and lower extremity pain (Primary Dx); Lumbosacral radiculopathy; Neck pain; Tremor; Chronic daily headacheStart: 12-27-2024 End: 17-93-6116hjhmpmrhaiBYDW HILLNot AvailableStart: 12-20-2024 End: 48-82-4758DqjtytWokbbxl Hauler YOLANDAHARRIETT LUNAEVUEComment on above:DDD (degenerative disc disease), lumbar (Primary Dx); Lumbosacral radiculopathyStart: 11-25-2024 End: 99-40-9360Hwpmvyksb encounterJotyler Mauro [facility] Comment on above:transfering careStart: 11-09-2024 End: 25-78-3622GfdmpfEabddvr P Kyser PA-C Work Phone: [facility] CardiologyComment on above:Med RefillStart: 09-07-2024 End: 45-69-3111GobnnvXhmq Hill PA Work Phone: noIL [place] [facility] ROUTEComment on above:DDD (degenerative disc disease), lumbar; Lumbosacral radiculopathyStart: 08-16-2024 End: 91-49-6244ybnbfnduzcRDHZGUniversity Hospitals Portage Medical Centertart: 07-29-2024 End: 42-88-2677NmpbthRiuqjnpGriselda TOVAR Work Phone: [facility] CardiologyComment on above:Med RefillStart: 06-24-2024 End: 99-05-8039Boezvk outpatient visit 25 minutesGillian Taylor MD Work Phone: [facility] Physicians CardiologyComment on above: Coronary artery disease involving coronary bypass graft of hamilton heart without angina pectoris (Primary Dx); Paroxysmal atrial fibrillation (CMS-HCC); Primary hypertension; Mixed hyperlipidemia; Left ventricular dysfunctionStart: 06-24-2024 End: 48-66-0712ozkzncouavNDHZS German [facility]ONDWilliamson [facility] HospitalStart: 06-23-2024 End: 60-65-3150Egtrjevlc encounterJuana Hercules CMACentral Vermont Medical CenterMedica Physicians CardiologyStart: 06-09-2024 End: 07-98-6033Idsoss outpatient visit 15 [facility] family hospitalMelitachina Rafael LI Work Phone: noms [place] ROUTEComment on above:Degeneration of intervertebral disc of lumbar region with discogenic back pain and lower extremity pain (Primary Dx); Neck pain; Chronic daily headache; TremorStart: 06-08-2024 End: 17-82-6360Gpgwdt Amelia Lackey MD Work Phone: noms [place] ROUTEStart: 06-08-2024 End: 98-54-5133Bukwtk Amelia Lackey MD Work Phone: noms [place] ROUTEStart: 06-08-2024 End: 28-50-2683Voyjoea encounter Alicia Lackey MD Work Phone: noms [place] ROUTEComment on above:Carpal tunnel syndrome of left wrist (Primary Dx)Start: 05-21-2024 End: 62-60-0360OttxgbHuxvClay Soto Physicians CardiologyComment on above:Med RefillStart: 05-17-2024 End: 80-40-4426ottflmsrmeMZOOJN E OOSTRANOMS HealthcareComment on above:DDD (degenerative disc disease), lumbar; Lumbosacral radiculopathyStart: 05-14-2024 End: 16-62-4290Teohfheph encounterJuana BurrMedica Physicians CardiologyStart: 04-30-2024 End: 55-47-9933Bijqjeunh encounterAshlee [facility] Start: 02-18-2024 End: 69-10-6435MacmfcUgpnekRosa Soto Physicians CardiologyComment on above:Med RefillStart: 01-24-2024 End: 46-68-4212GevinvOaaraz D Grande MD Work Phone: [facility] CardiologyComment on above:Med RefillStart: 12-30-2022 End: 46-36-7366iegyptwtfmCWHZEO SAMSA .Facility:M9Asefe: 12-17-2022 End: 06-63-6904jehxpspyywXOARNI SAMSA .Facility:L9Fqtdu: 05-92-8384MRWDC Referring Provider UnknownMG-Pulm Sleep-[place] 1800 Work Phone: Start: 35-92-3671Ngvmmd outpatient new 45 minutes Referring Provider UnknownMG-CT Surgery-Lorraine Work Phone: Start: 85-75-6002zjfbarnmryGzLeyla Peña Facility:CStart: 05-21-2022 End: 55-81-5369srmxysmluqVCZOKG SERVICES [facility]ITALFacility:Q1Ljeku: 04-26-2022 End: 45-11-1859qemevcmagpONXSUG SERVICES [facility] HOSPITALFacility:M8Gaglv: 04-23-2018 End: 70-90-4205Zewpbvk encounterSCOTT D [facility] Hospitaltart: 04-21-2018 End: 69-67-4388Nbamayy encounterSCOMERRILL Demarco [facility] Hospitaltart: 04-16-2018 End: 25-15-9347Jrtomqt encounterRADENIZ Porter [facility], Inctart: 04-10-2018 End: 14-00-4864Pjelank encounterSCOTT Dav [facility] Hospitaltart: 04-08-2018 End: 83-77-9623Awvplqb encounterSHERAlix LISA [facility] Patient encounter statusReferring Provider UnknownMG-Pulm Sleep-[place] 1800 Work Phone: Procedures DateProcedureProcedure DetailPerforming ClinicianStart: 49-30-9598Leueyp-up visitFollow-upSAMAR KHOURYStart: 23-03-3691Sbo routine ecg w/least 12 lds w/i&r Gillian Taylor MD Work Phone: Start: 16-72-7081Huepnd-up visitFollow-upLAURA German TAYLORStart: 06-08-2024 End: 59-76-2475Mmjigi emg ea extremty w/paraspinl area Ritesh Lackey MD Work Phone: Start: 02-99-5562Gwtjyin of coronary artery bypass graftingHx of CABGElise Borjas MD Work Phone: Cataract surgeryReferring Provider UnknownCoronary artery bypass graftReferring Provider UnknownHernia repairReferring Provider UnknownHistory of coronary artery bypass graftingHx of CABGNeisha Weathers RN History of coronary artery bypass graftingHx of CABGElise Borjas MD Work Phone: History of coronary artery bypass graftingHx of CABG Radha Griffin RNHistory of coronary artery bypass graftingHx of CABGPablo Zaragoza NAIL FEEDER-[employer]IR[employer] OPERATIONS SPECIALIST Work Phone: History of coronary artery bypass graftingHx of CABG Keron Arreguin PA-C Work Phone: Prosthetic arthroplasty of shoulderReferring Provider UnknownTotal replacement of hipReferring Provider Unknown Plan of Treatment DateCare ActivityDetailAuthorStart: 82-63-3676HOfA,Tdap and Td Vaccines (2 - Td or Tdap)DTaP,Tdap and Td Vaccines (2 - Td or Tdap)[facility] SystemStart: 10-17-2025 End: 59-38-4848Qpzqcai encounter yghkhldir82/09/2026 10:15 AM EST Office Visit [facility] [address] [place] [phone] Tree Krishnan, [address] [place] [address] [facility] OtolaryngologyStart: 09-15-2025 End: 13-28-6837Dglcbsv encounter /08/2026 10:50 AM EST Procedure Visit [facility] [address] [place] [address] Yuri Rodriguez, DPM [address] [address] [place] [address] [facility] CI PODIATRYStart: 76-61-9338Ymbhg BMI ScreeningAdult BMI ScreeningProKettering Health SystemStart: 15-49-1521Vbsvswi ScreeningTobacco ScreeningProKettering Health SystemStart: 57-00-3907Suirpzqt identified in Urine by CultureUrine [facility] Start: 83-27-6904Drtuayd referralPremier Health [facility] Work Phone: Start: 33-44-8550Ylhtb [facility] Hospitaltart: 05-16-2025 End: 06-18-7686Fssaiss encounter fpsguqpsy50/08/2025 10:40 AM EDT Office Visit HARRIETT SANTIAGO [address] [place] [phone] Linsey Hall PA [address] [place] [address] HARRIETT LUNAARTtart: 32-88-2722Wrwdxhtdb vaccinationNOMS HealthcareStart: 04-15-2025 End: 07-86-9719Vmjsfjm encounter procedureNOMS ENT SANDUSKYComment on above: ArrivedStart: 2025 End: 35-97-8517Kpelbxp encounter goukgmlrg58/18/2025 9:15 AM EDT Office Visit [facility] SHAYNE ARGUELLES [address] [place] [phone] Tree Krishnan DO [address] [place] [address] ArrivedNOMS ENT SANDUSKYComment on above:ArrivedStart: 12-23-2024 End: 84-11-0933Npjgfxe encounter leiwfogig73/17/2025 10:40 AM EDT Office Visit HARRIETT SANTIAGO [address] [place] [phone] Linsey Hall PA [address] [place] [address] HARRIETT JOHNSTONtart: 12-21-2024 End: 46-45-6032Teynbxy encounter /15/2025 10:40 AM EDT Office Visit NOMNigel SANTIAGO [facility] [address] [place] [address] Linsey Hall PA [address] [place] [address] NOM [place] [facility] ROUTEStart: 91-70-5168Iavuo BMI ScreeningAdult BMI ScreeningProKettering Health SystemStart: 27-84-0589Xwkdumm ScreeningTobacco ScreeningProKettering Health Hamiltontart: 06-24-2024 End: 03-93-8482MW Chest WO and CT angiogram Coronary arteries W contrast IVCT angiogram chest Imaging Routine Coronary artery disease involving coronary bypass graft of hamilton heart without angina pectoris Expected: 06/24/2024, Expires: 06/24/2025ProKettering Health SystemComment on above:Expected: 06/24/2024, Expires: 06/24/2025Start: 06-24-2024 End: 35-19-7935Xqqa complete W/O contrastEcho complete W/O contrast Echocardiography Routine Coronary artery disease involving coronary bypass graft of hamilton heart without angina pectoris Expected: 06/24/2024, Expires: 06/24/2025ProKettering Health SystemComment on above:Expected: 06/24/2024, Expires: 06/24/2025Start: 06-24-2024 End: 22-10-0288Vhqpxvz encounter mdbvjicio78/17/2024 2:00 PM EDT Office Visit [facility] [address] [place] [address] Gillian Taylor MD [address] [place] [address] [facility] CardiologyStart: 06-09-2024 End: 92-75-0666Hhpdoij encounter mbxokilos30/02/2024 11:20 AM EDT Office Visit NOM [place] [facility] [address] [place] [address] Linsey Hall PA [address] [place] [address] NOM [place] [facility] ROUTEStart: 06-08-2024 End: 61-44-8844Gawqhuf encounter procedureNOMS [facility] R[facility]TEComment on above:ArrivedStart: 05-17-2024 End: 74-49-0496Sewamyvxfyno / ancillary services pkclutiejz50/09/2024 8:30 AM EDT Ancillary Procedure [facility] [address] [place] [address] Emely Cantu MD [address] [place] [address] [facility] CardiologyStart: 26-73-7132Upffkhtjf vaccinationNOIL HealthcareStart: 2010 Administration of varicella zoster vaccineZoster (Shingles) Vaccine (1 of 2) [facility] SystemStart: 93-71-8103Odpopdcjbmtu Vaccine: 65+ Years (1 of 1 - PCV)Pneumococcal Vaccine: 65+ Years (1 of 1 - PCV)[facility] HealthcareStart: 58-93-2733SInE,Tdap and Td Vaccines (1 - Tdap)DTaP,Tdap and Td Vaccines (1 - Tdap)[facility] SystemStart: 42-25-8353Xrcyi BMI Follow Up PlanAdult BMI Follow Up PlanAvita Health System SystemStart: 32-95-6316Smehjewylz Screening Depression ScreeningAvita Health System SystemStart: 37-21-7693Bnafpbxve for malignant neoplasm of colonNOIL Healthcare End: 01-16-5774CCG panel - Blood by Automated countCBC Lab Routine Paroxysmal atrial fibrillation (CMS-HCC) 1 Occurrences starting 06/24/2024 until 06/24/2025 [facility] SystemComment on above:1 Occurrences starting 06/24/2024 until 06/24/2025efuroxime free [Mass/volume] in Serum or PlasmaAccess Hospital Dayton End: 95-90-5569Gckvghmezudrh metabolic 2000 panel - Serum or PlasmaCMP Lab Routine Primary hypertension 1 Occurrences starting 06/24/2024 until 06/24/2025 [facility] SystemComment on above:1 Occurrences starting 06/24/2024 until 06/24/2025 End: 62-16-0120Uyneg panelLipid panel Lab Routine Mixed hyperlipidemia 1 Occurrences starting 06/24/2024 until 06/24/2025[facility] Work Phone: Comment on above:1 Occurrences starting 06/24/2024 until 06/24/2025Patient referralPremier Health [facility] Work Phone: Pyridoxine [Mass/volume] in Serum or PlasmaAccess Hospital DaytonUS.doppler Lower extremity arteryVascular US lower extremity arterial Doppler complete Vascular Ultrasound Routine PVD (peripheral vascular disease) Ordered: 06/23/2025[facility] Work Phone: Comment on above:Ordered: 06/23/2025[facility] Immunizations Immunization DateImmunizationNotesCare IkksagaoYnkoytot47-18-0351Gyzkftaqn, injectable, Madin [place] Canine Kidney, preservative free, quadrivalentPaul [facility]st. [facility] DO Work Phone: DNS:NetFreeman Orthopaedics & Sports MedicineShmvkrevvm90-72-0706jgekqlq toxoid, reduced diphtheria toxoid, and acellular pertussis vaccine, adsorbedPaul Biedbach DO Work Phone: [facility] SystemPhpkjkchqm07-72-5919nksvkxvhg virus vaccine, unspecified formulationNicHospital Sisters Health [facility]09-15-2021influenza, high dose seasonal, preservative-freeMercyOne Des Moines Medical Center09-15-2021 influenza virus vaccine, unspecified formulationElise Borjas MD Work Phone: [facility]02-17-2021Pfizer Purple Cap SARS-CoV-2 VaccinationNicHospital Sisters [facility]01-13-2021Pfizer Purple Cap SARS-CoV-2 VaccinationNicAthens-Limestone Hospitaledy [facility] Payers DatePayer CategoryPayerPolicy [id number]-pay2023Medicare (Managed Care)HU[employer]NA MEDICARE ADVANTAGE [id number] 2020Medicare [id number] 2020Medicare HMOHUMANA MEDICARE Member Subscriber Plan / Payer (Effective 2019-Present) Name: Padilla Elise Wyatt Relation to Subscriber: Self Name: Padilla Elise Schneider Payer ID: [id number] (NAIC) Type: Not on file Address:[address] [place], [place] [id number] 2..1.361051.3.57[id number] 2..1.665677.3.57[id number] 2..1.019195.3.57[id number] 2..1.468785.3.57[id number] 2.16.840.1.741849.3.57[id number] 2.16.840.1.224302.3.57[id number] 2.16.840.1.711894.3.57[id number] 2..840.1.707555.3.57[id number] 2.16.840.1.157476.3.57[id number] 2.16.840.1.335674.3.57[id number] 2.840.1.808278.3.579.2.1259 [id number] 2.16840.1.418784.3.579.2.531 Social History DateTypeDetailFacilityStart: 03-15-2024 End: 57-38-3253Bsgent alcohol useSocial alcohol useAvita Health System SystemStart: 03-15-2024 End: 09-33-7159Eeiuehm smoking status NHISEx-smokerNOMS HealthcareStart: 09-08-1974 End: 11-70-2554Fykslsb of tobacco useCurrent smokerProKettering Health SystemStart: 09-08-1974 End: 20-10-7693Pocwzgp of tobacco useCigarette SmokerNOMS HealthcareStart: 05-20-2022 End: 75-38-4469Bbbgsju use and exposureSmokeless tobacco non-userAvita Health System SystemStart: 03-15-2024 End: 84-03-8555Jezdmikja beverage intakeLifetime non-drinker (finding)[facility] HealthcareStart: 03-15-2024 End: 80-67-2786Hpdenld use panelAvita Health System SystemStart: 02-02-6474Wjhswty CommentocassionalLogan Regional Hospital HealthcareStart: 59-93-1111Vff assigned at birthKindred Hospital PhiladelphiaStart: 39-10-5581Tviesm identityIdentifies as male gender (finding) [facility] HealthcareStart: 07-29-2023 End: 87-32-5396Bjdwgooai beverage intakeEx-drinker (finding)[facility] Southeasterntart: 43-13-4375Tgbcgt the past 12 months we worried whether our food would run out before we got money to buy more.Never [facility] Start: 23-66-8334Grgpxle CommentocaScotland Memorial Hospitaltart: 07-64-4719Usp assigned at birthNot on fileUNC Health Southeasterntart: 95-64-1954EufBjro (finding)[facility] Clinical Notes 04-30-2024 to 06-23-2025 Note Date & LfzcGcpaRkegjshb34-62-8634 History of Present illness Narrative* Yuri Rodriguez, [...] Insecurity: No Food Insecurity (06/24/2024) Received from [facility] [employer] Hunger Screening Within the past 12 months [...] non palpable pedal pulses bilaterally NEURO: 5.07 [place] Anjum monofilament test intact to digits and [...] shoe gear. Patient have SERVANDO PVRs at [facility] for possible procedure and nail avulsions in the future with follow up post testing Yuri Rodriguez DPM [1] Allergies Allergen Reactions Gluten Meal GI intolerance Isosorbide Nitrate Headache [2] Past Medical History: Diagnosis Date Anemia Arthritis 08/16/2024 Atrial fibrillation (HCC) Cardiomyopathy, ischemic 08/16/2024 Celiac disease (HCC) 03/04/2019 Centrilobular emphysema (HCC) 2025 Noted by [facility] last documented on [id number] Cervicalgia 04/08/2018 Chronic anticoagulation 08/16/2024 Chronic obstructive lung disease (HCC) 01/22/2018 Chronic obstructive pulmonary disease (COPD) ([facility]) Chronic systolic heart failure ([facility]) 08/16/2024 Class 2 severe obesity due to excess calories with serious comorbidity and body mass index (BMI) of35.0 to 35.9 in adult 08/16/2024 Coronary artery disease Emphysema of lung ([facility]) Erectile dysfunction 08/16/2024 H/O hernia repair Headache in back of head 04/08/2018 Hypertensive heart disease with heart failure (HCC) 2025 Noted by [facility] last documented on 20241001 Mixed hyperlipidemia 06/24/2024 Pain in wrist 08/16/2024 Peripheral polyneuropathy 06/27/2023 Pneumonia Primary hypertension 06/24/2024 Pure hypercholesterolemia 08/16/2024 Rheumatoid arthritis ([facility]) Sinus tachycardia 01/22/2018 [3] Current [...] time, Disp: , Rfl: documented in this encounterLake Regional Health SystemLljzemkrkp21-63-7917 Hospital Discharge instructionsAmbulatory Orders* Referral to Pain Management Time Frame: 06/14/25, Location: None Selected [facility] Work Phone: 1(194) 109-188210-07-2025 Evaluation note* Diagnosis Onset Date Resolution Status Admit Date Paresthesias acuteOctober 2024 11:34amCarpal tunnel syndrome, leftchronicOctober 2024 11:34amDDD (degenerative disc disease), lumbarchronicOctober 2024 11:34amLumbosacral radiculopathychronicOctober 2024 11:34amNeck painchronic October 2024 11:34amTremorchronicOctober 2024 11:34am [facility] Work Phone: 1(734) 169-116609-19-2025 [facility] Reason for [...] procedure, paroxysmal atrial fibrillation, s/p ablation in [place], thoracic aortic aneurysm, left ventricle dysfunction, hypertension, hyperlipidemia COPD, prior tobacco and alcohol abuse He used to follow with [facility] cardiology. He states that overall he has [...] once daily as dire (more content not included)...[facility]08-08-2025 History of Present illness Narrative* Tree Krishnan, [...] tympanostomy tube with replacement documented in this encounterLake Regional Health SystemSqhhlxsswa07-65-0106 NoteBellevue [facility] Note Reason for [...] procedure, paroxysmal atrial fibrillation, s/p ablation in [place], thoracic aortic aneurysm, left ventricle dysfunction, hypertension, hyperlipidemia COPD, prior tobacco and alcohol abuse He used to follow with [facility] cardiology. He states that overall he has [...] Disp: , Rfl: theop (more content not included)...[facility] 2025 History of Present illness Narrative* Tree [...] family physician and subspecialist documented in this encounterLake Regional Health SystemSwwhflzqxp93-12-4180 NoteBellevue [facility] Note Reason for [...] procedure, paroxysmal atrial fibrillation, s/p ablation in [place], thoracic aortic aneurysm, left ventricle dysfunction, hypertension, hyperlipidemia COPD, prior tobacco and alcohol abuse He used to follow with [facility] cardiology. He states that overall he has [...] well developed, in no (more content not included)...[facility]04-21-2025 History of Present illness Narrative* GUILLERMO Abdul - 12/27/2024 10:20 AM EDT Subjective Elise Tabor is a 64 y.o. year old male Chief Complaint Patient presents with Back Pain Past Medical History: Diagnosis Date Anemia Atrial fibrillation ([facility]) Celiac disease (CMS/HCC) 03/04/2019 Cervicalgia 04/08/2018 Chronic obstructive lung disease (CMS/HCC) 01/22/2018 Chronic obstructive pulmonary disease (COPD) (CMS/HCC) Coronary artery disease ([facility]/HCC) Emphysema of lung ([facility]) H/O hernia repair Headache in back of [...] triceps, wrist extensors, wrist extensors, wrist flexor, net solutions architect strength 5/5. LUE Strength deltoid, biceps, triceps, wrist extensors, wrist extensors, wrist flexor, net solutions architect strength 5/5. RLE Strength illopsoas, quadriceps, tibialis [...] new or worsening symptoms documented in this [facility]04-14-2025 Telephone encounter Note* Telephone Encounter - Leanne Mancia MA - 12/20/2024 4:44 PM EDT Patient is in need of refill, appt had to be rescheduled due to provider being out. Please [facility] [id number] Miscellaneous Notes* Telephone Encounter - Leanne Mancia MA - 12/20/2024 4:44 PM EDT Patient is in need of refill, appt had to be rescheduled due to provider being out. 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 Explained to him that we do try to keep pt's with same doc but it does not always work out that way. Pt understood but has already seen the the other group. 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 Explained to him that we do try to keep pt's with same doc but it does not always work out that way. Pt understood but has already seen the the other group. [facility]01-02-2025 Telephone encounter Note* Telephone Encounter - Yuri Chapa MA - 09/09/2024 8:59 AM EST 06/09/2024 Continue Lyrica 150mg PO TID for neuropathic pain [facility] reviewed. Last filled 05/17/2024 for 90 day supply. Due 08/15/2024 [facility] [id number] Miscellaneous Notes* Telephone Encounter - Yuri Chapa MA - 09/09/2024 8:59 AM EST 06/09/2024 Continue Lyrica 150mg PO TID for neuropathic pain [facility] reviewed. Last filled 05/17/2024 for 90 day supply. 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 male with history of coronary artery disease and coronary artery bypass surgery and maze procedure, paroxysmal atrial fibrillation, s/p ablation in [place], thoracic aortic aneurysm, left ventricle dysfunction, hypertension, hyperlipidemia COPD, prior tobacco and alcohol abuse He used to follow with [facility] cardiology. He states that overall he has [...] rubs, or gallops. RESPIR (more content not included)...[facility] 07-29-2024 Miscellaneous Notes* Telephone Encounter - Diana Munguia LPN - 07/29/2024 9:20 AM EST [facility] 06/24/24 documented in this encounterKnox [facility] Hospital11-21-2024 Telephone encounter Note* Telephone Encounter - Diana Munguia LPN - 07/29/2024 9:20 AM EST [facility] 06/24/24 [facility]10-17-2024 History of Present illness Narrative* Gillian Taylor MD - 06/24/2024 2:00 PM EDT Elise Schneider Padilla Date of visit: 06/24/2024 Date of : 1960 Age: 64 y.o. Patient Active Problem List Diagnosis Coronary artery disease involving coronary bypass graft of hamilton heart without angina pectoris Paroxysmal atrial fibrillation [...] 65 mg by mouth daily with breakfast. avwctbrjjbr-vlqkkwvwf-pdmgvfxw (TRELEGY ELLIPTA) 200-62.5-25 mcg blister with device [...] atrial fibrillation despite the reported ablation in [place], continue on anticoagulation.We discussed this again today [...] History: Diagnosis Date Arthritis Ascending aortic aneurysm ([facility]) Atrial fibrillation ([facility]) Celiac disease COPD (chronic obstructive pulmonary disease) ([facility]) Coronary artery disease with history of coronary [...] artery disease involving coronary bypass graft of hamilton heart without angina pectoris - POCT EKG - CT angiogram chest; Future - Echo complete W/O contrast; Future 2. Paroxysmal atrial fibrillation (CMS-HCC) - CBC; Future 3. Primary hypertension - CMP; Future 4. Mixed hyperlipidemia - Lipid panel; Future 5. Left ventricular dysfunction 1. ASCVD without angina --history of CABG with Maze --[facility]S to the LAD 2015 in [place] 2. Cardiomyopathy -ischemic versus related to alcohol [...] LORENZO Referring Physician: Kacie Del Real MD [address] [place] [address] documented in this [facility]10-17-2024 Instructions* Patient Instructions* Gillian Taylor MD - 06/24/2024 2:00 PM EDT Laboratory studies CTA of the aorta Echocardiogram documented in this encounterKindred Hospital LimaPromoJam Hawthorn [id number] Miscellaneous Notes* Telephone Encounter - Juana Hercules CMA - 06/23/2024 10:05 AM EDT Called patient to remind them to bring their most current copy of their medication list with them to their appt. Patient verbalizes understanding. [facility] Telephone encounter Note* Telephone Encounter - Juana Hercules CMA - 06/23/2024 10:05 AM EDT Called patient to remind them to bring their most current copy of their medication list with them to their appt. Patient verbalizes understanding. [facility] History of Present illness Narrative* GUILLERMO Abdul - 06/09/2024 11:20 AM EDT Subjective Elise Tabor is a 64 y.o. year old male Chief Complaint Patient presents with Back Pain Neck Pain Tremors Past Medical History: Diagnosis Date Anemia Atrial fibrillation ([facility]) Celiac disease ([facility]) 03/04/2019 Cervicalgia 04/08/2018 Chronic obstructive lung disease ([facility]) 01/22/2018 Chronic obstructive pulmonary disease (COPD) ([facility]) Coronary artery disease ([facility] Emphysema of lung ([facility]) H/O hernia repair Headache in back of head 04/08/2018 Peripheral polyneuropathy 06/27/2023 Pneumonia Rheumatoid arthritis ([facility]) Sinus tachycardia 01/22/2018 Past Surgical [...] handles -admits hand weakness -some trouble with net solutions architect ROS Review of Systems Constitutional: Negative for [...] triceps, wrist extensors, wrist extensors, wrist flexor, net solutions architect strength 5/5. LUE Strength deltoid, biceps, triceps, wrist extensors, wrist extensors, wrist flexor, net solutions architect strength 5/5. RLE Strength illopsoas, quadriceps, tibialis [...] new or worsening symptoms documented in this [facility]10-01-2024 History of Present illness Narrative* Vera Zuñiga MA - 06/08/2024 12:15 PM EDT Images from the original note were not included. Reason for Appointment: EMG Patient: Elise Tabor : 1960 EMG Computer: [employer] Referring Physician: Preet Bill PA-C EMG: WALTER building trades teacher: Vera Zuñiga CMA Office Location: [place] Reason for EMG: c/o pain and paresthesia in the arm from the shoulder down. No Hx of DM, takes Eliquis and ASA Comments: Procedure explained to the patient who expressed understanding. documented in this [facility]09-06-2024 Miscellaneous Notes* Telephone Encounter - Juana Hercules CMA - 05/14/2024 10:40 AM EDT Phoned pt to advise that appt scheduled for 05/17/2024 is the date that his EM will be sent out andis NOT an actual appt. Verbalized understanding. [facility] Telephone encounter Note* Telephone Encounter - Juana Hercules CMA - 05/14/2024 10:40 AM EDT Phoned pt to advise that appt scheduled for 05/17/2024 is the date that his EM will be sent out andis NOT an actual appt. Verbalized understanding. 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, Patient called and said that he has not been in a-fib since 2018 HX Coronary artery disease s/p CABG x 1 ([facility]TERS-L[facility]) 2016 in [place] Paroxysmal atrial fibrillation (diagnosed in 1998); Maze at time of open heart surgery Thoracic aortic aneurysm, 47 mm 05/2022 Hypertension Frequent PVCs, 6% burden on most recent monitoring 06/2023 History of NSVT Chronic hypoxic respiratory failure COPD Patient said that Eliquis is not affordable for him and would like to know if since he has not beenin a-fib [facility] 2017, is there a chance he would be able to dc Eliquis at some point. Please advise. Thank you! 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 * Telephone Encounter - Emely Cantu [...] patient to call us back to review STREET FLUSHER DRIVER's response. 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 Please advise. Thank you! 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 [facility] Telephone encounter Note* Telephone Encounter - Emely [...] further. Would continue Eliquis in the meantime. [facility] [id number] Telephone encounter Note* Telephone Encounter - Ashlee Lim RN - 04/30/2024 10:24 AM EDT Amml asking patient to call us back to review STREET FLUSHER DRIVER's response. [facility] Diagnosis Carpal tunnel syndrome of left wrist- Primary documented in this encounter [facility] HealthcareEvaluation note* Diagnosis Degeneration of intervertebral disc of lumbar region with discogenic back pain and lower extremity pain- Primary Neck pain Cervicalgia Chronic daily headache Headache Tremor Abnormal involuntary movements documented in this encounter [facility] HealthcareEvaluation note* Diagnosis DDD (degenerative disc disease), lumbar Degeneration of lumbar or lumbosacral intervertebral disc Lumbosacral radiculopathy Thoracic or lumbosacral neuritis or radiculitis, unspecified documented in this encounter [facility] HealthcareEvaluation note* Diagnosis DDD (degenerative disc disease), lumbar Degeneration of lumbar or lumbosacral intervertebral disc Lumbosacral radiculopathy Thoracic or lumbosacral neuritis or radiculitis, unspecified documented in this encounter [facility] HealthcareEvaluation note* Diagnosis Coronary artery disease involving coronary bypass graft of hamilton heart without angina pectoris Hx of CABG Postsurgical aortocoronary bypass status Paroxysmal atrial fibrillation (CMS-HCC) Atrial fibrillation Aneurysm of ascending aorta without rupture (CMS-HCC) History of maze procedure documented in this encounter [facility] System[facility] note* Diagnosis Coronary artery disease involving coronary bypass graft of hamilton heart without angina pectoris Hx of CABG Postsurgical aortocoronary bypass status Paroxysmal atrial fibrillation (CMS-HCC) Atrial fibrillation Aneurysm of ascending aorta without rupture (CMS-HCC) History of maze procedure documented in this encounter [facility] SystemEvaluation note* Diagnosis Coronary artery disease involving coronary bypass graft of hamilton heart without angina pectoris Paroxysmal atrial fibrillation (CMS-HCC) Atrial fibrillation Aneurysm of ascending aorta without rupture (CMS-HCC) Hx of CABG 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 documented in this encounter [facility] SystemEvaluation note* Diagnosis Coronary artery disease involving coronary bypass graft of hamilton heart without angina pectoris- Primary Paroxysmal atrial fibrillation (CMS-HCC) Atrial fibrillation Primary hypertension Unspecified essential hypertension Mixed hyperlipidemia Left ventricular dysfunction Left heart failure documented in this encounter [facility] System[facility] note* Diagnosis Coronary artery disease involving coronary bypass graft of hamilton heart without angina pectoris Paroxysmal atrial fibrillation (CMS-HCC) Atrial fibrillation Aneurysm of ascending aorta without rupture (CMS-HCC) Hx of CABG 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 documented in this encounter [facility] System[facility] note* Diagnosis Coronary artery disease involving coronary bypass graft of hamilton heart without angina pectoris Hx of CABG Postsurgical aortocoronary bypass status Paroxysmal atrial fibrillation ([facility]) Atrial fibrillation Aneurysm of ascending aorta without rupture ([facility]) History of maze procedure documented in this encounter [facility]* Diagnosis DDD (degenerative disc disease), lumbar- Primary Degeneration of lumbar or lumbosacral intervertebral disc Lumbosacral radiculopathy Thoracic or lumbosacral neuritis or radiculitis, unspecified documented in this encounter [facility] HealthcareEvaluation note* Diagnosis Degeneration of intervertebral disc of lumbar region with discogenic back pain and lower extremity pain- Primary Lumbosacral radiculopathy Thoracic or lumbosacral neuritis or radiculitis, unspecified Neck pain Cervicalgia Tremor Abnormal involuntary movements Chronic daily headache Headache documented in this encounter [facility] Healthcare[facility]* Diagnosis Dysfunction of right eustachian tube- Primary Otorrhea of right ear Chronic anticoagulation Encounter for long-term (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 of 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 documented in this encounter [facility] HealthcareEvaluation note* Diagnosis Otorrhea of right ear- Primary Dysfunction of right eustachian tube Chronic anticoagulation Encounter for long-term (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 of 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 documented in this encounter [facility] HealthcareEvaluation noteNo assessment information availablePike Community Hospital Work Phone: Evaluation note* Diagnosis PVD (peripheral vascular disease) Unspecified peripheral vascular disease Other polyneuropathy Pain due to onychomycosis of toenails of both feet Paronychia, toe, left documented in this encounter [facility] HealthcareHistory of Present illness NarrativeMrLeyla Tabor is referred for consideration of LVRS. 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 He is on 3 L nasal cannula oxygen chronically. He is set to begin pulmonaryrehabilitation.[facility] Work Phone: History of Present illness NarrativeMrLeyla Tabor is referred for consideration of LVRS. 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 He is on 3 L nasal cannula oxygen chronically. He is set to begin pulmonaryrehabilitation.[facility] Work Phone: History of Present illness NarrativeMrLeyla Tabor is referred for consideration of LVRS. 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 He is on 3 L nasal cannula oxygen chronically. He is set to begin pulmonaryrehabilitation.[facility] Work Phone: InstructionsNot on filedocumented in [...] for referral (narrative)No reason for referral information availablePike Community Hospital Work Phone: Summary Purpose Family History [...] Aleyda Lackey MD [address] [place] [address] Referral IDStatusReasonStart DateExpiration DateVisits RequestedVisits [id number] Chief Complaint and Reason for Visit Chief [...] section and content) DATE CREATED AUTHOR 07/04/2018 [facility] DATE CREATED AUTHOR AUTHOR'S ORGANIZ ATION 06/09/2022 [facility] DATE CREATED AUTHOR AUTHOR'S ORGANIZ ATION 06/09/2022 [employer] DATE CREATED AUTHOR AUTHOR'S ORGANIZ ATION 02/14/2023 [facility] DATE CREATED AUTHOR AUTHOR'S ORGANIZ ATION 07/06/2024 [facility] DATE CREATED AUTHOR AUTHOR'S ORGANIZ ATION 06/16/2025 [facility] DATE CREATED AUTHOR AUTHOR'S ORGANIZ ATION 06/25/2025 [facility] EPIC DATE CREATED AUTHOR AUTHOR'S ORGANIZ ATION 07/02/2025 [facility] Care Teams (unrecognized sec tion and content) Team MemberRelationshipSpecialtyStart DateEnd Date Risa Mcnulty NP [address] [place] [place] [address] Referring PhysicianFamily Medicine03/15/24Team MemberRelationshipSpecialtyStart DateEnd Date Risa Mcnulty NP [address] [place] [address] Referring PhysicianFamily Medicine03/15/24Team MemberRelationshipSpecialtyStart DateEnd Date Risa Mcnulty NP [address] [place] [place] [address] Referring PhysicianFamily Medicine03/15/24Team MemberRelationshipSpecialtyStart DateEnd Date Risa Mcnulty NP [address] [facility] [address] Referring PhysicianFamily Medicine03/15/24Team MemberRelationshipSpecialtyStart DateEnd Date Risa Mcnulty NP [address] [facility] [address] Referring PhysicianFamily Medicine03/15/24Team MemberRelationshipSpecialtyStart DateEnd Date Kacie Del Real MD [address] [place] [address] PCP - GeneralFamily Medicine03/22/22Team MemberRelationshipSpecialtyStart DateEnd Date Kacie Del Real MD [address] [place] [address] PCP - GeneralFamily Medicine03/22/22Team MemberRelationshipSpecialtyStart DateEnd Date Kacie Del Real MD [address] [place] [address] PCP - Generalmily Medicine03/22/22am MemberRelationshipSpecialtyStart DateEnd Date Kacie Del Real MD [address] [place] [address] [facility]/22/22am MemberRelationshipSpecialtyStart DateEnd Date Kacie Del Real MD [address] [place] [address] PCP - [facility] Medicine03/22/22Team MemberRelationshipSpecialtyStart DateEnd Date Risa Mcnulty, NAIL FEEDER-JET INSPECTOR [address] [place] [address] PCP - Generalmily Cpqjdvjd09/17/24Team MemberRelationshipSpecialtyStart Date End Date Risa Mcnulty, NAIL FEEDER-JET INSPECTOR [address] [place] [address] PCP - GeneralFamily Mnfgekvl14/17/24Team MemberRelationshipSpecialtyStart Date End Date Risa Mcnulty, NAIL FEEDER-JET INSPECTOR [address] [place] [address] PCP - GeneralFamily Cmoqjxqd70/17/24Team MemberRelationshipSpecialtyStart Date End Date Risa Mcnulty, NAIL FEEDER-JET INSPECTOR [address] [place] [address] PCP - GeneralFamily Prwglnil37/17/24Team MemberRelationshipSpecialtyStart Date End Date Risa Mcnulty, PROPELLANT ASSEMBLER [address] [facility] [place] [address] Referring PhysicianSt. Mary'[facility]03/15/24Team MemberRelationshipSpecialtyStart DateEnd Date Risa Mcnulty NP [address] [place] [address] Referring PhysicianSt. Mary'S [facility]03/15/24Team MemberRelationshipSpecialtyStart DateEnd Date Risa Mcnulty NP [address] [place] [address] Referring PhysicianSt. Mary'S [facility]03/15/24Team MemberRelationshipSpecialtyStart DateEnd Date Risa Mcnulty NP [address] [place] [address] Referring PhysicianSt. Mary'[facility]03/15/24 Team Status: Active Member Role Status Dates Mario Zayas MD Primary Care Provider Active Team Status: Inactive Member Role Status Dates Danni Mccoy , NAIL FEEDER-JET INSPECTOR-C Attending Provider Active Start: June 14, 2025 End: June 14, 2025Eduarda Brice Care ProviderActiveStart: June 14, 2025 End: June 14, 2025 Team Status: Inactive Member Role Status Dates Mario Zayas MD Attending Provider Active Sta rt: June 14, 2025 End: June 14, 2025Team MemberRelationshipSpecialtyStart DateEnd Date Mario Zayas MD [address] [place] [id number] PCP - GeneralSt. [facility]06/23/25 Risa Mcnulty NP [address] [place] [address] Referring PhysicianSt. Mary'S [facility]03/15/24Team MemberRelationshipSpecialtyStart DateEnd Date Mario Zayas MD [address] [place] [id number] PCP - [facility]06/23/25 Risa Mcnulty NP [address] [place] [address] Referring PhysicianSt. Mary'S [facility]03/15/24 Reason for Visit (unrecogniz ed section and content) SpecialtyDiagnoses / ProceduresReferred By ContactReferred To ContactNeurology Diagnoses LUE EMG paresthesias of hand, numbness and tingling, ref by Wei Bill PACr20.2 Procedures AR NERVE CONDUCTION STUDIES 9-10 STUDIES AR NEEDLE EMG EA EXTREMTY W/PARASPINL [place] [address] [place] [address] Aleyda Lackey MD [address] [place] [address] Referral IDStatusReasonStart DateExpiration DateVisits RequestedVisits [id number] Perform Procedure [id number] PainNeck PainTremorsReasonCommentsMed RefillReasonOnset DateCommentsMed [id number] DateCommentsMed [id number]-upEST PT FU EM RESULTSReasonOnset Date Commentstransfering care11/25/2024ReasonOnset DateCommentsMed [id number]/20/2024 ReasonCommentsBack PainReasonCommentsEar Tube CheckRight ear painReasonComments Ear [...] BE BASED ON THE PRIMARY CLINICAL RECORDS. [facility] [employer]Rover [facility]. provides no warranty or guarantee of the accuracy or completeness of information in this document.
--- NOTE | 2025-07-28 10:26 | PM.CN ---
Consult Note: HPI Data of Consult Patient: known to practice within the last 3 years Consult date: 07/28/25 Requesting Physician: Riddhi Elizabeth NP Primary Care Provider: Mario Zayas MD Consult Narrative Reason for consult: neck pain Narrative: Nikunj Borrego a 65 year old male with chronic neck pain and daily headaches greater than 10 years presents for evaluation. Pt has chronic neck pain secondary to facet arthropathy, ddd, and cervical stenosis. notes pain 12/10 and waking up daily with headache all over his head without dizziness, lightheadedness, chest pain, or change in SOB. pt does wear home o2. Currently on lyrica 150mg tid, prednisone, Topamax, tylenol, mobic with minimal benefit per pt. he cannot recall any other medications he has previously trialed. cc:: CC: Riddhi Elizabeth NP Review of Systems ROS Musculoskeletal Reports: back pain, neck pain and joint pain PFSH PFSH Medical History (Updated 07/28/25 @ 10:29 by Riddhi Elizabeth NP) Anemia ?D64.9 - Anemia, unspecified (ICD-10) High cholesterol ?E78.00 - Pure hypercholesterolemia, unspecified (ICD-10) Afib ?I48.91 - Unspecified atrial fibrillation (ICD-10) Aneurysm of ascending aorta without rupture ?I71.21 - Aneurysm of the ascending aorta, without rupture (ICD-10) Ischemic cardiomyopathy ?I25.5 - Ischemic cardiomyopathy (ICD-10) Celiac disease ?K90.0 - Celiac disease (ICD-10) Hypertension ?I10 - Essential (primary) hypertension (ICD-10) Amputation finger ?S68.119A - Complete traumatic metacarpophalangeal amputation of unspecified finger, initial encounter (ICD-10) Personal history of smoking ?Z87.891 - Personal history of nicotine dependence (ICD-10) Obesity ?E66.9 - Obesity, unspecified (ICD-10) Heartburn ?R12 - Heartburn (ICD-10) Osteoarthritis ?M19.90 - Unspecified osteoarthritis, unspecified site (ICD-10) Degenerative disc disease CAD (coronary artery disease) ?I25.10 - Atherosclerotic heart disease of [place] coronary artery without angina pectoris (ICD-10) COPD (chronic obstructive pulmonary disease) ?J44.9 - Chronic obstructive pulmonary disease, unspecified (ICD-10) Sleep apnea ?G47.30 - Sleep apnea, unspecified (ICD-10) Angina of effort ?I20.89 - Other forms of angina pectoris (ICD-10) Surgical History H/O repair of rotator cuff ?Z98.890 - Other specified postprocedural states (ICD-10) H/O shoulder surgery ?Z98.890 - Other specified postprocedural states (ICD-10) History of right hip replacement ?Z96.641 - Presence of right artificial hip joint (ICD-10) History of left hip replacement ?Z96.642 - Presence of left artificial hip joint (ICD-10) Social History Smoking status: Former smoker Meds Home Medications and Allergies Home Medications ?Medication ?Instructions ?Recorded ?Confirmed ?Type ascorbic acid (vitamin C) 500 mg 1 g PO DAILY 04/01/23 07/11/25 History tablet (C-500) aspirin 81 mg tablet,delayed 81 mg PO DAILY 04/01/23 07/11/25 History release atorvastatin 40 mg tablet 80 mg PO DAILY 04/01/23 07/11/25 History cholecalciferol (vitamin D3) 1 tab PO DAILY 04/01/23 07/11/25 History ferrous sulfate 325 mg (65 mg 325 mg PO DAILY 04/01/23 07/11/25 History iron) tablet (Feosol) fluticasone fur. 200 mcg-umeclid 1 inh inhalation Q24H 04/01/23 07/11/25 History 62.5 mcg-vilant 25 mcg inhalat.powder (Trelegy Ellipta) ipratropium 0.5 mg-albuterol 3 mg 3 ml inhalation Q8H PRN shortness 04/01/23 07/11/25 History (2.5 mg base)/3 mL nebulization of breath soln lisinopril 5 mg tablet 5 mg PO DAILY 04/01/23 07/11/25 History metoprolol succinate 50 mg 100 mg PO DAILY 04/01/23 07/11/25 History tablet,extended release 24 hr nitroglycerin 0.4 mg sublingual 0.4 mg sublingual Q5M PRN chest 04/01/23 07/11/25 History tablet pain roflumilast 500 mcg tablet 500 mcg PO DAILY 04/01/23 08/14/23 History theophylline 400 mg 300 mg PO Q12H 04/01/23 07/11/25 History tablet,extended release 24 hr apixaban 5 mg tablet (Eliquis) 5 mg PO Q12H 08/14/23 07/11/25 History meloxicam 15 mg tablet 15 mg PO DAILY 08/14/23 07/11/25 History azithromycin 250 mg tablet See Rx Instructions PO .COMPLEX #6 10/27/23 07/11/25 Rx (Zithromax Z-Dl) tabs dapagliflozin propanediol 10 mg 10 mg PO DAILY 06/30/25 07/11/25 History tablet (Farxiga) prednisone 10 mg tablet 10 mg PO DAILY 06/30/25 07/11/25 History pregabalin 150 mg capsule (Lyrica) 150 mg PO TID 06/30/25 07/11/25 History sodium chloride 0.9 % aerosol 3 ml inhalation Q12H 06/30/25 06/30/25 History inhaler topiramate 50 mg tablet (Topamax) 50 mg PO DAILY 06/30/25 07/11/25 History Allergies Allergy/AdvReac Type Severity Reaction Status Date / Time No Known Drug Allergies Allergy Verified 08/14/23 01:41 Exam Constitutional Documenting provider has reviewed patient's vital signs: yes Common normals: no apparent distress, oriented x3 and alert General appearance: cooperative [facility] Common normals: normocephalic, hearing grossly normal bilaterally and moist oral mucous membranes Head and scalp: normocephalic Eye Common normals: PERRL Pupil: PERRL Neck & C-Spine Common normals: full ROM General: normal visual inspection Cervical spine: cervical ROM normal and normal cervical lordosis; cervical ROM not abnormal, no pain with cervical ROM, no cervical spine tenderness and no paracervical muscle tenderness Other: no obvious pain on exam, no pain with facet loading or ROM strength 5/5 in BUE sensation intact BUE Chest Common normals: inspection of chest normal Respiratory Common normals: normal respiratory effort, no retractions and no use of accessory muscles Other: on o2 Neuro Common normals: oriented x3 Sensorium/orientation: alert Psych Common normals: mental status grossly normal, thought process normal, cooperative, affect normal, speech normal and activity/motor behavior normal Speech: normal speech Thought process: normal thought process Results Additional Findings Additional findings: If on a controlled substance or opioids, I have checked an [place] report on this patient and there are no aberrancies noted in the prescribing history.??If on a controlled substance or opioid a drug screen was completed and reviewed within the last year, and if there has not been a drug screen completed we ordered one today to monitor higher risk, state monitored pain medication use. As part of providing excellent, safe, comprehensive care, the following was completed at our patient's visit: 1. A medication reconciliation and review to ensure accurate knowledge of current/active medications, including asking our patients to inform us about any sxtl-eyu-qqwbfzn medications or herbal remedies/nutritional supplements/alternative remedies. 2. A review to specifically ensure our patients have had annual screening for screening for depression, screening for tobacco use, and screening for unhealthy alcohol use. For concerning screenings had a discussion with the patient, provided patient education, and recommended follow-up with primary care provider when appropriate. If patient noted with a risk of falling, they received education on strength, gait, and balance training to prevent future risk of falling. Portions of this note may have been carried over from the previous visit and updated as appropriate. Please note this office utilizes paper charting in addition to the electronic medical record. A list of current medications, vitals, and PMH is available there as the clinical staff outside of myself do not have access to 2NGageU charting during the clinic day operations. As part of providing quality comprehensive care the current medications, vitals, and PMH were reviewed in the paper chart. Assessment and Plan Assessment and Plan (1) Cervical spondylosis: (2) Osteoarthritis: (3) Chronic pain syndrome: Plan 65 year old male with chronic pain unresponsive to > 6 weeks of heat, ice, tylenol, nsaids. Defer interventional therapy due to lack of specific pain generator. will trial duloxetine 20mg hs for OA and chronic pain syndrome. risks vs benefits reviewed. f/u 1 month to evaluate response to medication. pt to call if he endorses any side effects.
== END 2025-07-28 09:45 | disposition home or self-care (01) ==
LOC: PM 09:44
PROVIDERS: PCP Family Medicine; Visit Provider Nurse Practitioner
DX: M47.812 Spondylosis without myelopathy or radiculopathy, cervical region (principal); M19.90 Unspecified osteoarthritis, unspecified site; G89.4 Chronic pain syndrome
CPT/HCPCS: G0463

== ENCOUNTER 2025-08-25 10:24 | Outpatient (OUT) | payer MEDICARE, SELFPAY ==
--- OUTSIDE RECORDS SUMMARY | 2025-08-11 13:50 | XMS_ITS | Encounter Summary ---
Author Organization [facility] Address [address] [place] [address] Care Team Providers Care Glue Reel Operator Name Role Phone Pauly Santacruz PAINTER AND GRADER CORK Unavailable Mario Zayas MD Primary Care Provider [phone] Reason for Visit * ReasonCommentsFollow-upFU LT great toenail avulsion Encounter Details DateTypeDepartmentCare Team (Latest Contact Info)Gomrwxthmtt77/04/2025 1:50 PM ESTOffice Visit [facility] [address] [facility] [address] [place] [id number] Yuri Rowe DPM [address] [facility] [address] [place] [address] Paronychia, toe, left (Primary Dx); PVD (peripheral vascular disease); Other polyneuropathy Social History Tobacco UseTypesPacks/DayYears UsedDateSmoking Tobacco: QaiedrPjabvkfajt250 09/08/1974 - 09/08/2009Smokeless Tobacco: NeverAlcohol UseStandard Drinks/Week CommentsNever0 (1 standard drink = 0.6 oz pure alcohol)ocassionallySex and Gender InformationValueDate RecordedSex Assigned at AildcNywk14/16/2023 9:38 AM EDTLegal MtfXhbh0402/06/2023 9:13 AM EDTGender HpwlsldhWfbr95/16/2023 9:38 AM EDT Sexual OrientationNot on filedocumented as of this encounter Last Filed Vital Signs Vital SignReadingTime TakenCommentsBlood Uaophjot608/7812 1:57 PM EST Fvwgv711908/11/2025 1:57 PM ESTTemperature--Respiratory Rate--Oxygen Saturation-- Inhaled Oxygen Concentration--Awyqgc801 kg (250 lb)08/11/2025 1:57 PM ESTHeight 177.8 cm (5' 10 )08/11/2025 1:57 PM ESTBody Mass Index35.8708/11/2025 1:57 PM ESTdocumented in this encounter Progress Notes * Yuri Rowe DPM - 08/11/2025 1:50 PM EST Patient: Nikunj Gutierrez : 1960 PCP: Mario Zayas MD SUBJECTIVE This is a 65 y.o. male that presents today 14 d s/p permanent nail avulsion with nail avulsion to the left hallux Pt states that they have been following all post op instructions and have been taking antibiotic asprescribed. Pt denies n/f/v/c and has slight pain at post op site. Pt states negative drainage from the postop site. Pt presents today for postoperative follow up. Pt is dm2 with hx of PVD and COPD Allergies: Allergies[1] Past Medical History: Medical History[2] Medications: Current Medications[3] ROS: General: denies fever, chills, fatigue, malaise GI: denies loose or watery stool on antibiotic OBJECTIVE LE EXAM: DERM: Negative erythema, negative drainage from the left hallux VASC: non palpable pedal pulses bilaterally NEURO: 5.07 [place] Anjum monofilament test intact to digits and forefoot bilaterally 125Hz tuning fork diminished to 1st MPJ bilaterally ORTHO: Minimal pain on palpation to the left hallux ASSESSMENT 14 d s/p permanent nail avulsion to the left hallux 1. PVD (peripheral vascular disease) 2. Other polyneuropathy 3. Paronychia, toe, left PLAN Pt to d/c abx. Patient to continue with OTC oral anti - inflammatories as needed for pain. Pt to keep DSD on area of interest while in shoegear, otherwise may expose to air in a clean environment. Yuri Rowe DPM [1] Allergies Allergen Reactions Gluten Meal GI intolerance Isosorbide Nitrate Headache [2] Past Medical History: Diagnosis Date Anemia Arthritis 08/16/2024 Atrial fibrillation (HCC) Cardiomyopathy, ischemic 08/16/2024 Celiac disease (HCC) 03/04/2019 Centrilobular emphysema ([facility]) [address] [facility] last documented on [id number] Cervicalgia 04/08/2018 Chronic anticoagulation 08/16/2024 Chronic obstructive lung disease (HCC) 01/22/2018 Chronic obstructive pulmonary disease (COPD) ([facility]) Chronic systolic heart failure (HCC) 08/16/2024 Class 2 severe obesity due to excess calories with serious comorbidity and body mass index (BMI) of35.0 to 35.9 in adult 08/16/2024 Coronary artery disease Emphysema of lung ([facility]) Erectile dysfunction 08/16/2024 H/O hernia repair Headache in back of head 04/08/2018 Hypertensive heart disease with heart failure ([facility]) [address] [facility] last documented on 20241001 Mixed hyperlipidemia 06/24/2024 Pain in wrist 08/16/2024 Peripheral polyneuropathy 06/27/2023 Pneumonia Primary hypertension 06/24/2024 Pure hypercholesterolemia 08/16/2024 Rheumatoid arthritis ([facility]) Sinus tachycardia 01/22/2018 [3] Current Outpatient Medications: [...] Plan of Treatment DateTypeDepartmentCare Team (Latest Contact Info)Kfiajndekxo95/08/2026 10:50 AM ESTProcedure Visit [facility] [address] [facility] [address] [place] [address] Yuri Rowe DPM [address] [facility] [address] [place] [address] 10/17/2025 10:15 AM ESTOffice Visit [facility] [address] [place] [phone] Tree Carmona DO [address] [place] [address] documented as of this encounter Visit Diagnoses Diagnosis Paronychia, toe, left- Primary PVD (peripheral vascular disease) Unspecified peripheral vascular disease Other polyneuropathy documented in this encounter Care Teams Team MemberRelationshipSpecialtyStart DateEnd Date Mario Zayas MD [address] [facility] [place] [address] PCP - GeneralFamily Cgbfpjan17/16/25 Pauly Santacruz NP [address] [place] [address] Referring PhysicianFamily Medicine03/15/24documented as of this encounter
--- OUTSIDE RECORDS SUMMARY | 2025-08-25 10:32 | XMS_ITS | Clinical Summary ---
Author Organization [facility] Address [address] [facility], [address] [place] [address] Care Team Providers Care Rough Rice Tender Name Role Phone Mario Zayas MD Primary Care Provider [phone] Allergies No known active allergies Medications MedicationSigDispense [...] tablet Take 1 tablet by mouth every jfhufks69/05/2025Active Ferrous Sulfate 90 (18 Fe) MG TABS [...] under the tongue every 5 minutes as pguzwf584Active Potassium Gluconate 595 (99 K) MG TABS Take 1 tablet by mouth dailyActive pregabalin (LYRICA) 150 MG capsule Take 1 capsule by mouth in the morning, at noon, and at bedtime.12/20/2024tive [place] 450 MG CAPS Take 1 capsule by [...] mouth 2 times daily 180 tablet 5Active wvjsozacfqz-nlxmkfkfi-glutus (TRELEGY ELLIPTA) 200-62.5-25 MCG/ACT AEPB inhaler Indications:Centrilobular emphysema (HCC)Inhale 1 puff into the lungs daily 180 each 5Active sodium chloride nebulizer 0.9 % solution Indications:Centrilobular emphysema (HCC)Take 3 mLs by nebulization 2 times daily 540 mL 5Active Active Problems ProblemNoted DateDiagnosed DateLong term (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 of inhaled steroids 07/13/2025 Assessment & Plan (07/13/2025 9:31 AM EST): The patient was counseled to rinse and gargle after use of his steroid- containing inhaler to reducethe risk of oral candidiasis and other potential adverse effects. 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 of systemic extaamzr91/05/2025 Assessment & Plan (07/13/2025 9:31 AM EST): Discussed with the patient adverse effects of termite control representative systemic steroids including, but not limited to: [...] 1 tablet by mouth 2 times daily akelgvykdzg-sefrsfvub-wltutl (TRELEGY ELLIPTA) 200-62.5-25 MCG/ACT AEPB inhaler; Inhale 1 puff intothe lungs daily sodium chloride nebulizer 0.9 % solution; Take 3 mLs by nebulization 2 times daily ISABEL (obstructive sleep apnea) Assessment & Plan (07/13/2025 10:56 AM EST): A shrl-sy-svvh encounter was performed with the patient today [...] VAuto -Current mode & pressures: BiPAP @ 16/99uiN1V -Residual AHI: 0.5 -Median air leak: 6.1L/min [...] & Plan (07/13/2025 10:56 AM EST): A talx-vn-hgkd encounter was performed with the patient today [...] CT chest evidence of asbestos. 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; halfway (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 of inhaled steroidsfrom Last 3 Months Family History Medical HistoryRelationNameCommentsHeart DiseaseFatherBreast CancerMother HypertensionMotherHypertensionSisterRelationNameStatusCommentsFatherMotherSister Social History Tobacco UseTypesPacks/DayYears UsedDateSmoking Tobacco: XrtiedNeyyyxcucv1284176 - 2012Smokeless Tobacco: Never Tobacco Cessation:Counseling Given: Not Answered Alcohol UseStandard Drinks/WeekCommentsNot Currently0 (1 standard drink = 0.6 oz pure alcohol)Sex and Gender InformationValueDate RecordedSex Assigned at Male07/13/2025 7:55 AM ESTLegal LsiRleh45/07/2025 3:18 PM EDTGender IdentityNot on fileSexual OrientationNot on file Last Filed Vital Signs Vital SignReadingTime TakenCommentsBlood Mneqvyhw400/7407/13/2025 8:06 AM EST Rshql908907/13/2025 8:06 AM JOXMsdefbwxkly36.1 ??C (97 ??F)07/13/2025 8:06 AM EST Respiratory Jrwx826009/12/2024 8:06 AM ESTOxygen Wcgxgyauty41%07/13/2025 8:06 AM EST5L B6Smmsupi Oxygen Concentration--Cutrju313.4 kg (247 lb 12.8 oz)07/13/2025 8:06 AM OMZZsmupi690.7 cm (5' 8 )07/13/2025 8:06 AM ESTBody Mass Index37.68 07/13/2025 8:06 AM EST Plan of Treatment DateTypeDepartmentCare Team (Latest Contact Info)Ygumuuwawhx24/03/2026 10:00 AM ESTOffice Visit [facility] [facility] [address] [place] [address] Hu Bunn DO [address] [facility] [address] [place] [address] 3 MO F/U for COPD, respiratory failure.Health MaintenanceDue DateLast Done AwfphlcgOjrgzd85/18/1970Depression Vhsfud3803/25/1972HIV eyuovu3003/25/1975Hepatitis C ovyhry6303/25/1978Pneumococcal 50+ years Vaccine (1 of 2 - PCV)1979 Diabetes azryjm7003/25/19953646Uadppkjwpaw31/18/2005Colorectal Cancer Jlpftf3203/25/2005 FIT/FOBT: Average risk2005Fecal-DNA (Cologuard): Average risk2005 Sigmoidoscopy/CT kojdtwldskgc48/18/2005Shingles vaccine (1 of 2)2010 Respiratory Syncytial Virus (RSV) or age 60 yrs+ (1 - Risk 60-74 years 1-dose series)2020Lung Cancer Screening &/or Wsihnisiiu58/19/2023 12/25/2021AA fulqac4303/25/2025Flu vaccine (#1)/02/2023, 05/23/2021 COVID-19 Vaccine (3 - season)/, 09/20/2020 DTaP/Tdap/Td vaccine (2 - Td [...] Decision Maker* Care Teams Team MemberRelationshipSpecialtyStart DateEnd Mario Zayas MD [address] [place] [address] PCP - GeneralFamily Ubtvwxnb35/7/25
--- OUTSIDE RECORDS SUMMARY | 2025-08-25 10:32 | XMS_ITS | Clinical Summary ---
Author Organization [facility] Address [address] [place] [address] Phone Care Team Providers Care Shuttle Hand Name Role Phone Unavailable Primary Care Provider Unavailabl e Social History Tobacco UseTypesPacks/DayYears UsedDateSmoking Tobacco: Never AssessedSex and Gender InformationValueDate RecordedSex Assigned at BirthNot on fileLegal Sex Male08/03/2022 11:25 AM ESTGender IdentityNot on fileSexual OrientationNot on file Last Filed Vital Signs Vital SignReadingTime TakenCommentsBlood Nlzvnqpg437/8609 2:58 PM EDT Haqnq0698 2:58 PM FCQZdjdwmgrisw12.8 ??C (98.2 ??F)05/29/2022 2:58 PM EDTRespiratory Azwl1814 2:58 PM EDTOxygen Vzgbdfmzda41%05/29/2022 2:58 PM EDTInhaled Oxygen Concentration--Ysrhbk945 kg (239 lb 7 oz)05/29/2022 2:58 PM NMCKqqtix677 cm (5' 7.32 )05/29/2022 2:58 PM EDTBody Mass Index37.1509 2:58 PM EDT Plan of Treatment Not on file
--- OUTSIDE RECORDS SUMMARY | 2025-08-25 10:32 | XMS_ITS | Clinical Summary ---
Author Organization [facility] Healthcare Address [address] [place] [address] Care Team Providers Care Design Project Manager Name Role Phone Pauly Santacruz COLOR TESTER Unavailable Mario Zayas MD Primary Care Provider [phone] Allergies Active AllergyReactionsCriticalityNoted DateCommentsGluten MealGI intoleranceLow 05/08/2022Isosorbide YjyqchnLafertolAot08/14/2022 Medications MedicationSigDispense QuantityRefillsLast FilledStart DateEnd DateStatus albuterol [...] the evening.06/04/2023ctive cholecalciferol (Vitamin D-3) 50 MCG (1999) capsule 1 capsule 1 (one) time each [...] Take 25 mg by mouth in the morning./6Active tiZANidine (Zanaflex) 4 MG tablet TAKE 2 [...] by mouth three times daily. 30 capsule Expired Active Problems ProblemNoted DateDiagnosed LumfJvdanlwfnc19/14/2024DD (degenerative disc disease), zgioqo1201/20/2024 Overview (01/20/2024): The patient is a 62 [...] has had no benefit with gabapentin increase. Occwiqyjfeg29/14/2024oronary artery disease involving coronary bypass graft of [place] heart without angina lxluilnj53/12/2022History of maze procedure 05/20/2022Hx of CABG05/20/2022aroxysmal atrial pqwkmhcyglow79/12/2022Thoracic aortic aneurysm without qvsdnxk8505/20/2022 Resolved Problems ProblemNoted DateDiagnosed DateResolved DateCentrilobular wtsnxzbhi87/18/2025 2025 Overview (2025): Noted by [facility] last documented on 20241027 Hypertensive heart disease with heart zorabbs31/18/68714703/25/2025 Overview (2025): Noted by [facility] last documented on 20241001 Chronic hoaiflgxlkhsakj25hronic systolic heart failure Erectile sfneidhrixo42ardiomyopathy, tcwhzcdk61lass 2 severe obesity due to excess calories with serious comorbidity and body mass index (BMI) of35.0 to 35.9 in adult08/16/2024 2025Pain in wristPure dozczhamjtsomyafbuaq50/09/2024 03/25/20258879Sqfvpkqun46Mixed tbxozggdqjvhmq07 Primary fyhbygyfqyld65Peripheral dtirbkizvlehyk73/20/2023 06/27/2023eliac keerflo56ervicalgia Headache in back of headhronic obstructive lung disease Sinus kscmteoxnud51 Encounters DateTypeDepartmentCare LkfaEgurnwrgwda75/04/2025 1:50 PM ESTOffice Visit [facility] [address] [place] [address] Yuri Rowe DPM Paronychia, toe, left (Primary Dx); PVD (peripheral vascular disease); Other jqciqdkwjparwi47/04/2025amboo flowsheet [facility] [address] [place] [address] Yuri Rowe DPM 08/11/20250116Flquzq08/13/2025 4:40 PM ESTOffice Visit [facility] [address] [facility] [address] [place] [address] Yuri Rowe DPM PVD (peripheral vascular disease) (Primary Dx); Other polyneuropathy; Paronychia, toe, left07/21/2025bstract [facility] [address] [facility] [address] [place] [address] Yuri Rowe DPM 07/21/2025amboo flowsheet [facility] [address] [facility] [address] [place] [address] Yuri Rowe DPM 07/21/20250988Tyeihy50/29/2025bstract [facility] [address] [place] [address] [place] [address] Yuri Rowe DPM 07/06/2025bstract [facility] [address] [facility] [address] [place] [address] Yuri Rowe DPM 06/23/2025 9:30 AM EDTOffice Visit [facility] [address] [facility] [address] [place] [address] Yuri Rowe DPM PVD (peripheral vascular disease); Other polyneuropathy; Pain due to onychomycosis of toenails of both feet; Paronychia, toe, left06/23/2025amboo flowsheet [facility] [address] [facility] [address] [place] [address] Yuri Rowe DPM 06/23/2025Travelfrom Last 3 Months Immunizations ImmunizationAdministration DatesNext DueInfluenza, High Dose Seasonal, Preservative Free05/23/2021Influenza, injectable, MDCK, preservative free, gpglalfvowrz26/06/2023Pfizer Purple Cap SARS-CoV-2 Jkrkkhhtgxu61/17/2021, 09/20/2020Tdap110/14/2022 Family History Medical HistoryRelationNameCommentsHeart diseaseFatherCancerMotherHeart disease MotherHypertensionMotherDiabetesSiblingRelationNameStatusCommentsFatherMother SiblingAlive Social History Tobacco UseTypesPacks/DayYears UsedDateSmoking Tobacco: HlxxdwHunvmaiyoj450 09/08/1974 - 09/08/2009Smokeless Tobacco: Never Tobacco Cessation:Counseling Given: Yes Alcohol UseStandard Drinks/WeekCommentsNever0 (1 standard drink = 0.6 oz pure alcohol)ocassionallySex and Gender InformationValueDate RecordedSex Assigned at JpwxvLzrc28/16/2023 9:38 AM EDTLegal FgxWxtv6702/06/2023 9:13 AM EDTGender EttnjecrJfrr44/16/2023 9:38 AM EDTSexual OrientationNot on file Last Filed Vital Signs Vital SignReadingTime TakenCommentsBlood Urefumgu872/7812 1:57 PM EST Htubi986708/11/2025 1:57 PM ESTTemperature--Respiratory Vdpu380309/20/2024 4:45 PM ESTOxygen Ywvtstuuet12%12/27/2024 10:42 AM EDTInhaled Oxygen Concentration-- Tnrfwd840 kg (250 lb)08/11/2025 1:57 PM NNNNavxfx885.8 cm (5' 10 )08/11/2025 1:57 PM ESTBody Mass Index35.8708/11/2025 1:57 PM EST Plan of Treatment DateTypeDepartmentCare Team (Latest Contact Info)Gjwbxnchjbx01/08/2026 10:50 AM ESTProcedure Visit [facility] [address] [place] [address] Yuri Rowe, MIN [address] [facility] [address] [place] [address] 10/17/2025 10:15 AM ESTOffice Visit [facility] [address] [place] [address] Tree Carmona S, DO [address] [place] [address] Insurance Care Teams Team MemberRelationshipSpecialtyStart DateEnd Mario Zayas MD [address] [place] [address] PCP - GeneralFamily Eiyqsuax51/16/25 Pauly Santacruz NP [address] [place] [address] Referring PhysicianFamily Medicine03/15/24
--- OUTSIDE RECORDS SUMMARY | 2025-08-25 10:33 | XMS_ITS | Clinical Summary ---
Author Organization [facility] tem Address [id number] [address] [place] [address] Care Team Providers Care Moisture Tester Name Role Phone Pauly Santacruz QUALITY ASSURANCE TECHNICIAN-LAWN CARE PROFESSIONAL Primary Care Provider [phone] Allergies Active AllergyReactionsCriticalityNoted VrzgOxhwizeeMxpgjl76/31/2022Isosorbide QidhwbimxpwPvszqzwa56/14/2022 Medications MedicationSigDispense QuantityRefillsLast FilledStart DateEnd DateStatus omeprazole (PriLOSEC) 40 mg capsule Take 1 capsule (40 mg total) by mouth in the morning.03/19/2022ctive gabapentin (NEURONTIN) 600 mg tablet Take 1 tablet (600 mg total) by mouth 3 (three) times a day.03/30/2022ctive DALIRESP 500 mcg tablet Take 1 tablet (500 mcg total) by mouth in the morning.03/15/2022ctive wognlilsywi-jskvxtrlh-vhztjupe (TRELEGY ELLIPTA) 200-62.5-25 mcg blister with device [...] artery disease involving coronary bypass graft of [place] heart without angina pectoris,Paroxysmal atrial fibrillation (CMS-HCC),Aneurysm [...] artery disease involving coronary bypass graft of [place] heart without angina pectoris,Hx of CABG,Paroxysmal atrial fibrillation (CMS-HCC),Aneurysm of ascending aorta without rupture,History of maze procedure Take 100 mg in the morning and 50 mg at night 270 tablet ctive theophylline (BRYAN-24) 400 MG 24 hr capsule Take 1 capsule (400 mg total) by mouth in the morning.Active atorvastatin (LIPITOR) 40 mg tablet Indications:Coronary artery disease involving coronary bypass graft of [place] heart without angina pectoris,Hx of CABG,Paroxysmal atrial [...] artery disease involving coronary bypass graft of [place] heart without angina pectoris,Paroxysmal atrial fibrillation (CMS-HCC),Aneurysm of ascending aorta without rupture,Hx of CABG,History of maze procedureDISSOLVE 1 TABLET UNDER THE TONGUE NEEDED FOR CHEST PAIN- MAY REPEAT EVERY 5 MINUTES IF NEEDED (MAX 3 DOSES.- IF NO RELIEF CALL 911) 25 tablet 4Active lisinopriL (PRINIVIL,ZESTRIL) 5 mg tablet Indications:Coronary artery disease involving coronary bypass graft of [place] heart without angina pectoris,Hx of CABG,Paroxysmal atrial fibrillation (CMS-HCC),Aneurysm of ascending aorta without rupture,History of maze procedure Take 1 tablet (5 mg total) by mouth in the morning. FINAL REFILL UNTIL LABS COMPLETED. 90 tablet 5Active Active Problems ProblemNoted DateDiagnosed DateMixed flfsyfaabkjmoi36/17/2024rimary ttltlycdbopq43/17/2024Left ventricular lmregjzsoqs19/17/2024oronary artery disease involving coronary bypass graft of [place] heart without angina pectoris 05/20/2022aroxysmal atrial vidmapmszmpv54/12/2022Thoracic aortic aneurysm without dyewobe0805/20/2022Hx of CABG05/20/2022History of maze hoslgbhtg55/12/2022 Family History Medical HistoryRelationNameCommentsHeart diseaseFatherBreast cancerMotherCancer MotherRelationNameStatusCommentsFatherDeceasedMaternal [...] Last Filed Vital Signs Vital SignReadingTime TakenCommentsBlood Htpnlzis441/6206/24/2024 1:52 PM EDT Adilh785706/24/2024 1:52 PM EDTTemperature--Respiratory Rate--Oxygen Nmmxopevvq03% 06/24/2024 1:52 PM EDTInhaled Oxygen Concentration--Xxdjjt100.1 kg (245 lb) 06/24/2024 1:52 PM MEQYwdxlw280.7 cm (5' 7.99 )06/24/2024 1:52 PM EDTBody Mass Index37.261 1:52 PM EDT Plan of Treatment Health MaintenanceDue DateLast DoneCommentsDepression Doemcoseu95/18/1972Zoster (Shingles) Vaccine (1 of 2)2010Fall Risk Wqhbkmonj27/18/2025Influenza Afjtgdv32/02/2023, 05/23/2021dult BMI Ywqtxunif99 Tobacco Raeupfprp74Statin Use: Empjwdhqgvcdpg23/30/2026 10/07/2024DTaP,Tdap and Td Vaccines (2 - Td or Tdap)RSV ( or age 60+ yrs) (1 - 1-dose 75+ series)2035 [employer] Not on file Insurance * Guarantor: Nikunj CauseyAccount TypeRelation to PatientDate of PhoneBilling AddressPersonal/XlplbqZiva1960 [address] [place] [address] Care Teams Team MemberRelationshipSpecialtyStart DateEnd Date Pauly Santacruz APRN-CHAO [address] [place] [address] PCP - GeneralFamily Vhdkstxq30/17/24
--- OUTSIDE RECORDS SUMMARY | 2025-08-25 10:33 | XMS_ITS | Encounter Summary ---
Author Organization [facility] Address [address] [place] [address] Care Team Providers Care Back Joiner Name Role Phone Pauly Santacruz SEARCH MANAGER Unavailable Mario Zayas MD Primary Care Provider [phone] Encounter Details DateTypeDepartmentCare Team (Latest Contact Info)Wdvrkwqfzoi06/04/2025Travel Social History Tobacco UseTypesPacks/DayYears UsedDateSmoking Tobacco: MylttiZptuzronpe427 09/08/1974 - 09/08/2009Smokeless Tobacco: NeverAlcohol UseStandard Drinks/Week CommentsNever0 (1 standard drink = 0.6 oz pure alcohol)ocassionallySex and Gender InformationValueDate RecordedSex Assigned at SdbcvEygf67/16/2023 9:38 AM EDTLegal BjuYgqq8502/06/2023 9:13 AM EDTGender PtzjkslkOnvf25/16/2023 9:38 AM EDT Sexual OrientationNot on filedocumented as of this encounter Plan of Treatment DateTypeDepartmentCare Team (Latest Contact Info)Dbmwmvsgpjy48/08/2026 10:50 AM ESTProcedure Visit [facility] [address] [facility] [address] [place] [address] Yuri Rowe, DPEdison [address] [facility] [address] [place] [address] 10/17/2025 10:15 AM ESTOffice Visit [facility] [address] [place] [address] Tree Carmona, [address] [place] [address] documented as of this encounter Visit Diagnoses Not on filedocumented in this encounter Care Teams Team MemberRelationshipSpecialtyStart DateEnd Date Mario Zayas MD [address] [place] [address] PCP - GeneralFamily Jmnlreqq27/16/25 Pauly Santacruz NP [address] [place] [address] Referring PhysicianFamily Medicine03/15/24documented as of this encounter
--- OUTSIDE RECORDS SUMMARY | 2025-08-25 10:33 | XMS_ITS | Encounter Summary ---
Author Organization [facility] Address [address] [place] [address] Care Team Providers Care Camera Repair Technician Name Role Phone Pauly Santacruz BARREL RIFLER BROACH Unavailable Mario Zayas MD Primary Care Provider [phone] Encounter Details DateTypeDepartmentCare Team (Latest Contact Info)Vkyiunlpsvl24/04/2025amboo flowsheet [facility] [address] [place] [address] Yuri Rowe, DPEdison [address] [facility] [address] [place] [address] Social History Tobacco UseTypesPacks/DayYears UsedDateSmoking Tobacco: LgtoudJpmzuuduvv354 09/08/1974 - 09/08/2009Smokeless Tobacco: NeverAlcohol UseStandard Drinks/Week CommentsNever0 (1 standard drink = 0.6 oz pure alcohol)ocassionallySex and Gender InformationValueDate RecordedSex Assigned at YzpaoUpfu77/16/2023 9:38 AM EDTLegal VklImcn0102/06/2023 9:13 AM EDTGender DjwkantlJbrw38/16/2023 9:38 AM EDT Sexual OrientationNot on filedocumented as of this encounter Plan of Treatment DateTypeDepartmentCare Team (Latest Contact Info)Yuonsvwjamf52/08/2026 10:50 AM ESTProcedure Visit [facility] [address] [place] [address] Yuri Rowe, MIN [address] [address] 10/17/2025 10:15 AM ESTOffice Visit [facility] [address] [place] [address] Tree Carmona DO [address] [facility] [place] [address] documented as of this encounter Visit Diagnoses Not on filedocumented in this encounter Care Teams Team MemberRelationshipSpecialtyStart DateEnd Date Mario Zayas MD [address] [facility] [place] [address] PCP - GeneralFamily Popijlkn19/16/25 Pauly Santacruz NP [address] [place] [address] Referring PhysicianFamily Medicine03/15/24documented as of this encounter
--- OUTSIDE RECORDS SUMMARY | 2025-08-25 10:33 | XMS_ITS | Clinical Summary ---
Author Organization [facility] Address [address] [place] [address] Care Team Providers Care Fashion Designer Name Role Phone Mario Zayas MD Primary Care Provider [phone] Allergies No known active allergies Medications MedicationSigDispense [...] Active Problems ProblemNoted DateDiagnosed DateObstructive sleep apnea npfebovv45/21/2025enign hypertensive heart disease without congestive heart fitlmzj0505/29/2025Nausea 04/14/2025bnormal cardiovascular stress test04/05/20257856Jheqapbli58/09/2024eliac dbvfncq2108/16/2024oronary artery disease involving [place] coronary artery of [place] heart without angina bbzibuhl20/09/2024Erectile /09/2024ain in wrist08/16/2024eripheral xegctpsqdjpjpu06/09/2024ardiomyopathy, ischemic 08/16/2024hronic systolic heart fcgyhkw3408/16/2024hronic anticoagulation 08/16/2024ure wxgkfyilxcslybqlqrar55/09/2024lass 2 severe obesity due to excess calories with serious comorbidity and body mass index (BMI) of35.0 to 35.9 in adult08/16/2024Mixed fqkbxnukcgvvbu82/17/2024Essential hypertension 06/24/2024DD (degenerative disc disease), wtamvv1201/20/2024 Overview (08/16/2024): The patient is a 62 [...] has had no benefit with gabapentin increase. Nnuwmconlg98/14/4378Jqrxmbjctpp70/14/2024History of maze htayorted03/12/2022 Paroxysmal A-fib05/20/2022Thoracic aortic aneurysm without zxkilcn5105/20/2022 Bcbryemyoxz62/01/2018Headache in back of head04/08/2018 Resolved Problems ProblemNoted DateDiagnosed DateResolved DateAbdominal aortic aneurysm (AAA) without cptkgmy32/27/81618401/02/2025Left ventricular nvgjtbkloqa03/17/2024 04/18/2025 Encounters DateTypeDepartmentCare VbyuAtykgtkzjlr04/23/2025[facility] [address] [place] [facility] [address] Tari Nevarez MA 06/02/2025Tephone [facility] [address] [place] [facility] [place] [address] Melita Ignacio MA 05/27/2025 11:00 AM EDTOffice Visit [facility] [address] [place] [facility] [place] [address] Dorinda Diaz MD Coronary artery disease involving nikolski coronary artery of [place] heart without angina pectoris (Primary Dx); Cardiomyopathy, ischemic; Chronic systolic heart failure (CMS/HCC); Aneurysm of ascending aorta without rupture; Paroxysmal A-fib (CMS/HCC); History of maze procedure; Benign hypertensive heart disease 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; Pure hypercholesterolemia; Mixed hyperlipidemia; Class 2 severe obesity due to excess calories with serious comorbidity and body mass index (BMI) of35.0 to 35.9 in adult (CMS/HCC)from Last 3 Months Family History Medical HistoryRelationNameCommentsCoronary artery diseaseFatherCoronary artery diseaseMotherRelationNameStatusCommentsFatherDeceasedMotherDeceasedSisterAlive Social History Tobacco UseTypesPacks/DayYears UsedDateSmoking Tobacco: FormerCigarettes Smokeless Tobacco: Never Tobacco Cessation:Counseling Given: Not Answered Alcohol UseStandard Drinks/WeekCommentsYes0 (1 standard drink = 0.6 oz pure alcohol)occasionalSex and Gender InformationValueDate RecordedSex Assigned at LjczsOzqt52/05/2025 3:26 PM EDTLegal UxdKxro63/15/2024 2:46 PM ESTGender BfmtbsksAtex32/05/2025 3:26 PM EDTSexual OrientationHeterosexual or Straight 04/12/2025 3:26 PM EDT Last Filed Vital Signs Vital SignReadingTime TakenCommentsBlood Xmvazsli53/56005/27/2025 11:01 AM EDT Axiuh9925/19/2025 11:01 AM EDTTemperature--Respiratory Gxui811904/21/2025 3:45 PM EDTOxygen Bmifjoupsk77%05/27/2025 11:01 AM EDT3 lpm o2 via n/cInhaled Oxygen Concentration--Dyppam679 kg (237 lb)05/27/2025 11:01 AM SASErwqca558.3 cm (5' 9 )05/27/2025 11:01 AM EDTBody Mass Anntz315505/27/2025 11:01 AM EDT Plan of Treatment Health MaintenanceDue DateLast DoneCommentsCT Ntsurlozlxpz1960Colonoscopy 1960Colorectal Cancer Glcbczvut1960FIT-DNA1960FIT1960 FOBT1960Medicare Annual Wellness (AWV)1960Medicare Initial Physical (IPPE)1960 7206Ccyziqgtpuruf1960Depression Wjzfwvmeg47/18/1972 Pneumococcal Vaccine: 50+ Years (1 of 2 - PCV)1979Zoster Vaccines (1 of 2) 2010Fall Risk Bjkhcnhsa87/18/2025COVID-19 Vaccine (3 - season) /, 09/20/2020Influenza Vaccine (#1)/02/2023, 05/23/2021dult Kljdtyr25/02/2023HIB VaccinesAged OutNo longer eligible based on patient's [...] patient's age to complete this topic Insurance Care Teams Team MemberRelationshipSpecialtyStart DateEnd Mario Zayas MD [address] [facility] [place] [phone] [facility] - [facility]/09/25
--- NOTE | 2025-08-25 10:56 | PM.CN ---
Consult Note: HPI Data of Consult Patient: known to practice within the last 3 years Consult date: 08/25/25 Requesting Physician: Riddhi Elizabeth NP Primary Care Provider: Mario Zayas MD Consult Narrative Reason for consult: neck pain, spine pain Narrative: Nikunj Borrego a 65 year old male with chronic neck pain and daily headaches greater than 10 years presents for evaluation. Pt has chronic neck pain secondary to facet arthropathy, ddd, and cervical stenosis as well as chronic low back and BLE pain. notes pain 05/18 pt does wear home o2, on 3L NC. Currently on lyrica 150mg tid, prednisone, Topamax, tylenol, mobic with minimal benefit per pt. failed duloxetine 20mg daily due to severe drowsiness and headaches. pt noting LLE edema since his injection , he has not been evaluated by his PCP. cc:: CC: Riddhi Elizabeth NP Review of Systems ROS Musculoskeletal Reports: back pain, neck pain and joint pain PFSH PFSH Medical History Anemia ?D64.9 - Anemia, unspecified (ICD-10) High cholesterol ?E78.00 - Pure hypercholesterolemia, unspecified (ICD-10) Afib ?I48.91 - Unspecified atrial fibrillation (ICD-10) Aneurysm of ascending aorta without rupture ?I71.21 - Aneurysm of the ascending aorta, without rupture (ICD-10) Ischemic cardiomyopathy ?I25.5 - Ischemic cardiomyopathy (ICD-10) Celiac disease ?K90.0 - Celiac disease (ICD-10) Hypertension ?I10 - Essential (primary) hypertension (ICD-10) Amputation finger ?S68.119A - Complete traumatic metacarpophalangeal amputation of unspecified finger, initial encounter (ICD-10) Personal history of smoking ?Z87.891 - Personal history of nicotine dependence (ICD-10) Obesity ?E66.9 - Obesity, unspecified (ICD-10) Heartburn ?R12 - Heartburn (ICD-10) Osteoarthritis ?M19.90 - Unspecified osteoarthritis, unspecified site (ICD-10) Degenerative disc disease CAD (coronary artery disease) ?I25.10 - Atherosclerotic heart disease of [place] coronary artery without angina pectoris (ICD-10) COPD (chronic obstructive pulmonary disease) ?J44.9 - Chronic obstructive pulmonary disease, unspecified (ICD-10) Sleep apnea ?G47.30 - Sleep apnea, unspecified (ICD-10) Angina of effort ?I20.89 - Other forms of angina pectoris (ICD-10) Surgical History H/O repair of rotator cuff ?Z98.890 - Other specified postprocedural states (ICD-10) H/O shoulder surgery ?Z98.890 - Other specified postprocedural states (ICD-10) History of right hip replacement ?Z96.641 - Presence of right artificial hip joint (ICD-10) History of left hip replacement ?Z96.642 - Presence of left artificial hip joint (ICD-10) Social History Smoking status: Former smoker Meds Home Medications and Allergies Home Medications ?Medication ?Instructions ?Recorded ?Confirmed ?Type ascorbic acid (vitamin C) 500 mg 1 g PO DAILY 04/01/23 07/11/25 History tablet (C-500) aspirin 81 mg tablet,delayed 81 mg PO DAILY 04/01/23 07/11/25 History release atorvastatin 40 mg tablet 80 mg PO DAILY 04/01/23 07/11/25 History cholecalciferol (vitamin D3) 1 tab PO DAILY 04/01/23 07/11/25 History ferrous sulfate 325 mg (65 mg 325 mg PO DAILY 04/01/23 07/11/25 History iron) tablet (Feosol) fluticasone fur. 200 mcg-umeclid 1 inh inhalation Q24H 04/01/23 07/11/25 History 62.5 mcg-vilant 25 mcg inhalat.powder (Trelegy Ellipta) ipratropium 0.5 mg-albuterol 3 mg 3 ml inhalation Q8H PRN shortness 04/01/23 07/11/25 History (2.5 mg base)/3 mL nebulization of breath soln lisinopril 5 mg tablet 5 mg PO DAILY 04/01/23 07/11/25 History metoprolol succinate 50 mg 100 mg PO DAILY 04/01/23 07/11/25 History tablet,extended release 24 hr nitroglycerin 0.4 mg sublingual 0.4 mg sublingual Q5M PRN chest 04/01/23 07/11/25 History tablet pain roflumilast 500 mcg tablet 500 mcg PO DAILY 04/01/23 08/14/23 History theophylline 400 mg 300 mg PO Q12H 04/01/23 07/11/25 History tablet,extended release 24 hr apixaban 5 mg tablet (Eliquis) 5 mg PO Q12H 08/14/23 07/11/25 History meloxicam 15 mg tablet 15 mg PO DAILY 08/14/23 07/11/25 History azithromycin 250 mg tablet See Rx Instructions PO .COMPLEX #6 10/27/23 07/11/25 Rx (Zithromax Z-Dl) tabs dapagliflozin propanediol 10 mg 10 mg PO DAILY 06/30/25 07/11/25 History tablet (Farxiga) prednisone 10 mg tablet 10 mg PO DAILY 06/30/25 07/11/25 History pregabalin 150 mg capsule (Lyrica) 150 mg PO TID 06/30/25 07/11/25 History sodium chloride 0.9 % aerosol 3 ml inhalation Q12H 06/30/25 06/30/25 History inhaler topiramate 50 mg tablet (Topamax) 50 mg PO DAILY 06/30/25 07/11/25 History Allergies Allergy/AdvReac Type Severity Reaction Status Date / Time No Known Drug Allergies Allergy Verified 08/14/23 01:41 Exam Constitutional Documenting provider has reviewed patient's vital signs: yes Common normals: no apparent distress, oriented x3 and alert General appearance: cooperative [facility] Common normals: normocephalic, hearing grossly normal bilaterally and moist oral mucous membranes Head and scalp: normocephalic Eye Common normals: PERRL Pupil: PERRL Neck & C-Spine Common normals: full ROM General: normal visual inspection Cervical spine: cervical ROM normal and normal cervical lordosis; cervical ROM not abnormal, no pain with cervical ROM, no cervical spine tenderness and no paracervical muscle tenderness Other: no obvious pain on exam, no pain with facet loading or ROM strength 5/5 in BUE sensation intact BUE pt reporting pain from head down whole spine negative lehrmites Chest Common normals: inspection of chest normal Respiratory Common normals: normal respiratory effort, no retractions and no use of accessory muscles Other: on o2 Back & Pelvis Lumbar spine/lower back: ROM limited, pain with ROM, lumbar spinal tenderness and straight leg raise positive left Neuro Common normals: oriented x3 Sensorium/orientation: alert Psych Common normals: mental status grossly normal, thought process normal, cooperative, affect normal, speech normal and activity/motor behavior normal Speech: normal speech Thought process: normal thought process Results Additional Findings Additional findings: If on a controlled substance or opioids, I have checked an [place] report on this patient and there are no aberrancies noted in the prescribing history.??If on a controlled substance or opioid a drug screen was completed and reviewed within the last year, and if there has not been a drug screen completed we ordered one today to monitor higher risk, state monitored pain medication use. As part of providing excellent, safe, comprehensive care, the following was completed at our patient's visit: 1. A medication reconciliation and review to ensure accurate knowledge of current/active medications, including asking our patients to inform us about any [id number] medications or herbal remedies/nutritional supplements/alternative remedies. 2. A review to specifically ensure our patients have had annual screening for screening for depression, screening for tobacco use, and screening for unhealthy alcohol use. For concerning screenings had a discussion with the patient, provided patient education, and recommended follow-up with primary care provider when appropriate. If patient noted with a risk of falling, they received education on strength, gait, and balance training to prevent future risk of falling. Portions of this note may have been carried over from the previous visit and updated as appropriate. Please note this office utilizes paper charting in addition to the electronic medical record. A list of current medications, vitals, and PMH is available there as the clinical staff outside of myself do not have access to [facility] charting during the clinic day operations. As part of providing quality comprehensive care the current medications, vitals, and PMH were reviewed in the paper chart. Assessment and Plan Assessment and Plan (1) Cervical spondylosis: (2) Osteoarthritis: (3) Chronic pain syndrome: Plan Patient advised to DC all alcohol use, socially drinks on the weekend, pt agreeable. update UDS today. we had a in depth conversation regarding the risks of opioid medications but he has failed to benefit from numerous non opioid medications and with his diffuse pain interventional therapy is not an option at this time. risks vs benefits reviewed, will start tramadol 50mg bid prn moderate to severe pain 14 tabs to last 7 days. pt can continue tylenol otc, lyrica 150mg tid through pcp, prednisone 10mg daily, mobic 15mg daily, and topamax. narcan script updated. advised pt to f/u with pcp regarding LLE edema. f/u 1-2 weeks to review medication regimen. may consider referral to [facility] chronic pain program for evaluation
--- NOTE | 2025-08-25 11:00 | PM.CN ---
Consult Note: HPI Data of Consult Requesting Physician: Riddhi Elizabeth NP Primary Care Provider: Mario Zayas MD Consult Narrative cc:: CC: Riddhi Elizabeth NP PFSH PFSH Medical History Anemia ?D64.9 - Anemia, unspecified (ICD-10) High cholesterol ?E78.00 - Pure hypercholesterolemia, unspecified (ICD-10) Afib ?I48.91 - Unspecified atrial fibrillation (ICD-10) Aneurysm of ascending aorta without rupture ?I71.21 - Aneurysm of the ascending aorta, without rupture (ICD-10) Ischemic cardiomyopathy ?I25.5 - Ischemic cardiomyopathy (ICD-10) Celiac disease ?K90.0 - Celiac disease (ICD-10) Hypertension ?I10 - Essential (primary) hypertension (ICD-10) Amputation finger ?S68.119A - Complete traumatic metacarpophalangeal amputation of unspecified finger, initial encounter (ICD-10) Personal history of smoking ?Z87.891 - Personal history of nicotine dependence (ICD-10) Obesity ?E66.9 - Obesity, unspecified (ICD-10) Heartburn ?R12 - Heartburn (ICD-10) Osteoarthritis ?M19.90 - Unspecified osteoarthritis, unspecified site (ICD-10) Degenerative disc disease CAD (coronary artery disease) ?I25.10 - Atherosclerotic heart disease of [place] coronary artery without angina pectoris (ICD-10) COPD (chronic obstructive pulmonary disease) ?J44.9 - Chronic obstructive pulmonary disease, unspecified (ICD-10) Sleep apnea ?G47.30 - Sleep apnea, unspecified (ICD-10) Angina of effort ?I20.89 - Other forms of angina pectoris (ICD-10) Surgical History H/O repair of rotator cuff ?Z98.890 - Other specified postprocedural states (ICD-10) H/O shoulder surgery ?Z98.890 - Other specified postprocedural states (ICD-10) History of right hip replacement ?Z96.641 - Presence of right artificial hip joint (ICD-10) History of left hip replacement ?Z96.642 - Presence of left artificial hip joint (ICD-10) Social History Smoking status: Former smoker Meds Home Medications and Allergies Home Medications ?Medication ?Instructions ?Recorded ?Confirmed ?Type ascorbic acid (vitamin C) 500 mg 1 g PO DAILY 04/01/23 07/11/25 History tablet (C-500) aspirin 81 mg tablet,delayed 81 mg PO DAILY 04/01/23 07/11/25 History release atorvastatin 40 mg tablet 80 mg PO DAILY 04/01/23 07/11/25 History cholecalciferol (vitamin D3) 1 tab PO DAILY 04/01/23 07/11/25 History ferrous sulfate 325 mg (65 mg 325 mg PO DAILY 04/01/23 07/11/25 History iron) tablet (Feosol) fluticasone fur. 200 mcg-umeclid 1 inh inhalation Q24H 04/01/23 07/11/25 History 62.5 mcg-vilant 25 mcg inhalat.powder (Trelegy Ellipta) ipratropium 0.5 mg-albuterol 3 mg 3 ml inhalation Q8H PRN shortness 04/01/23 07/11/25 History (2.5 mg base)/3 mL nebulization of breath soln lisinopril 5 mg tablet 5 mg PO DAILY 04/01/23 07/11/25 History metoprolol succinate 50 mg 100 mg PO DAILY 04/01/23 07/11/25 History tablet,extended release 24 hr nitroglycerin 0.4 mg sublingual 0.4 mg sublingual Q5M PRN chest 04/01/23 07/11/25 History tablet pain roflumilast 500 mcg tablet 500 mcg PO DAILY 04/01/23 08/14/23 History theophylline 400 mg 300 mg PO Q12H 04/01/23 07/11/25 History tablet,extended release 24 hr apixaban 5 mg tablet (Eliquis) 5 mg PO Q12H 08/14/23 07/11/25 History meloxicam 15 mg tablet 15 mg PO DAILY 08/14/23 07/11/25 History azithromycin 250 mg tablet See Rx Instructions PO .COMPLEX #6 10/27/23 07/11/25 Rx (Zithromax Z-Dl) tabs dapagliflozin propanediol 10 mg 10 mg PO DAILY 06/30/25 07/11/25 History tablet (Farxiga) prednisone 10 mg tablet 10 mg PO DAILY 06/30/25 07/11/25 History pregabalin 150 mg capsule (Lyrica) 150 mg PO TID 06/30/25 07/11/25 History sodium chloride 0.9 % aerosol 3 ml inhalation Q12H 06/30/25 06/30/25 History inhaler topiramate 50 mg tablet (Topamax) 50 mg PO DAILY 06/30/25 07/11/25 History Allergies Allergy/AdvReac Type Severity Reaction Status Date / Time No Known Drug Allergies Allergy Verified 08/14/23 01:41 Assessment and Plan Assessment and Plan (1) Cervical spondylosis: (2) Osteoarthritis: (3) Chronic pain syndrome: (4) Generalized OA: (5) Encounter for medication monitoring: Plan Patient advised to DC all alcohol use, socially drinks on the weekend, pt agreeable. update UDS today. we had a in depth conversation regarding the risks of opioid medications but he has failed to benefit from numerous non opioid medications and with his diffuse pain interventional therapy is not an option at this time. risks vs benefits reviewed, will start tramadol 50mg bid prn moderate to severe pain 14 tabs to last 7 days. pt can continue tylenol otc, lyrica 150mg tid through pcp, prednisone 10mg daily, mobic 15mg daily, and topamax. narcan script updated. advised pt to f/u with pcp regarding LLE edema. f/u 1-2 weeks to review medication regimen. may consider referral to [facility] chronic pain program for evaluation
== END 2025-08-25 10:25 | disposition home or self-care (01) ==
LOC: PM 10:25
PROVIDERS: PCP Family Medicine; Visit Provider Nurse Practitioner
DX: M47.812 Spondylosis without myelopathy or radiculopathy, cervical region (principal); M19.90 Unspecified osteoarthritis, unspecified site; G89.4 Chronic pain syndrome
CPT/HCPCS: G0463

== ENCOUNTER 2025-08-26 10:50 | Outpatient (OUT) | payer MEDICARE, SELFPAY ==
--- OUTSIDE RECORDS SUMMARY | 2025-07-20 10:00 | XMS_ITS ---
Author Organization [facility] in [place] Address [address] [place] [address] Care Team Providers Care Quilt Maker Name Role Phone Andres Zayas Primary Care Provider [phone] Hu Bunn Unavailable [phone] REASON FOR VISIT 6m F/U - COPD Encounters Encounter Location Date Provider Diagnosis Pulmonary Medicine [address] [address] 07/20/2025 Hu Bunn Plan Of Treatment No Information Progress Notes * Nikunj CAUSEY EDOB:1959 (65 yo M)Acc No.[id number]:07/20/2025 UNLOCKED PROGRESS NOTE Follow Up Patient: Edison WALTON Nikunj Atkinson :?Hu Bunn DODOB:1960???Age:65 Y ???Sex:MaleDate:07/20/2025Phone:[phone]:[address] [id number]:Andres Zayas Subjective: * Chief Complaints: * 1 . 6m F/U - COPD. * Medical History: Objective: * Vitals: Assessment: Plan: * Treatment: * * Electronic signature of Hu Bunn DO on 08/26/2025 at 10:56 AM ESTSign off status: PendingVisit Status:?CANC (Cancelled) * Provider: Kiah Bunn DO Date: 09/19/2024 Generated for Printing/Faxing/eTransmitting on:?08/26/2025 10:56 AM EST
--- OUTSIDE RECORDS SUMMARY | 2025-08-17 10:46 | XMS_ITS ---
Author Organization [facility] [place] Address [address] [place] [address] Care Team Providers Care Events Director Name Role Phone Andres Zayas Primary Care Provider Encounters Encounter Location Date Provider Diagnosis Electronic Health Records [address] [place] [address] 08/17/2025 Andres Zayas Plan Of Treatment No Information Progress Notes * Nikunj CAUSEY EDOB:1959 (65 yo M)Acc No.[id number]:08/17/2025 Patient:?Nikunj CAUSEY :1960???Age:65 Y???Sex:MalePhone:[phone] Address:[address] [place], [address] Subjective: * Chief Complaints: * * Medical History: * Surgical History: * Hospitalization/Major Diagno stic Procedure: * Medications: Objective: * Vitals: * Physical Examination: ??? Assessment: Plan: * Treatment: * Procedure Codes: * Preventive Medicine: ??Screenings/Counseling:?TOBACCO ACTION PLAN?Patient counselled on the dangers of tobacco use and urged to quit.? 05/27/2025 - -Date counseled * true * Date:?Generated for Printing/Faxing/eTransmitting on:?08/26/2025 10:56 AM EST
--- OUTSIDE RECORDS SUMMARY | 2025-08-26 10:56 | XMS_ITS | Clinical Summary ---
Author Organization [facility] Address [address], [address] [place] [address] Care Team Providers Care Pie Dough Roller Name Role Phone Mario Zayas MD Primary Care Provider [phone] Allergies No known active allergies Medications MedicationSigDispense [...] tablet Take 1 tablet by mouth every xiedrkz88/05/2025Active Ferrous Sulfate 90 (18 Fe) MG TABS [...] under the tongue every 5 minutes as outqyu444Active Potassium Gluconate 595 (99 K) MG TABS Take 1 tablet by mouth dailyActive pregabalin (LYRICA) 150 MG capsule Take 1 capsule by mouth in the morning, at noon, and at bedtime.12/20/2024tive Saw [place] 450 MG CAPS Take 1 capsule by [...] mouth 2 times daily 180 tablet 5Active rpiujxpaodm-uuoqvlbxh-qzfgrt (TRELEGY ELLIPTA) 200-62.5-25 MCG/ACT AEPB inhaler Indications:Centrilobular [...] oral candidiasis and other potential adverse effects. emt intermediate (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 of systemic rnbynuug42/05/2025 Assessment & Plan (07/13/2025 9:31 AM EST): Discussed with the patient adverse effects of intermediate designer systemic steroids including, but not limited to: [...] 1 tablet by mouth 2 times daily czkkcybjrus-rpkvsiyhv-gmyeia (TRELEGY ELLIPTA) 200-62.5-25 MCG/ACT AEPB inhaler; Inhale 1 puff intothe lungs daily sodium chloride nebulizer 0.9 % solution; Take 3 mLs by nebulization 2 times daily ISABEL (obstructive sleep apnea) Assessment & Plan (07/13/2025 10:56 AM EST): A lqbh-bw-heji encounter was performed with the patient today [...] VAuto -Current mode & pressures: BiPAP @ 16/18yiT0Y -Residual AHI: 0.5 -Median air leak: 6.1L/min [...] & Plan (07/13/2025 10:56 AM EST): A suus-rt-cezq encounter was performed with the patient today [...] CT chest evidence of asbestos. Encounters DateTypeDepartmentCare WvsrArortlccktr68/05/2025 8:00 AM ESTOffice Visit [facility] [address], [address] [place] [address] Hu Bunn DO Centrilobular emphysema (Primary Dx); ISABEL (obstructive sleep apnea); Chronic respiratory failure with hypoxia; Chronic respiratory failure with hypercapnia; History of tobacco abuse; History of asbestos exposure; emt intermediate (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 of systemic steroids; FPC (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 of inhaled steroidsfrom Last 3 Months Family History Medical HistoryRelationNameCommentsHeart DiseaseFatherBreast CancerMother HypertensionMotherHypertensionSisterRelationNameStatusCommentsFatherMotherSister Social History Tobacco UseTypesPacks/DayYears UsedDateSmoking Tobacco: OwhmgcZrdmstgcyr9707708 - 2012Smokeless Tobacco: Never Tobacco Cessation:Counseling Given: Not Answered Alcohol UseStandard Drinks/WeekCommentsNot Currently0 (1 standard drink = 0.6 oz pure alcohol)Sex and Gender InformationValueDate RecordedSex Assigned at Male07/13/2025 7:55 AM ESTLegal LozLkqf73/07/2025 3:18 PM EDTGender IdentityNot on fileSexual OrientationNot on file Last Filed Vital Signs Vital SignReadingTime TakenCommentsBlood Yreijlkz715/7407/13/2025 8:06 AM EST Lmnrz555407/13/2025 8:06 AM CZADmzwgvemans98.1 ??C (97 ??F)07/13/2025 8:06 AM EST Respiratory Ruwc528909/12/2024 8:06 AM ESTOxygen Sjyeilljwi67%07/13/2025 8:06 AM EST5L G0Gnwcwac Oxygen Concentration--Rizvla469.4 kg (247 lb 12.8 oz)07/13/2025 8:06 AM ZBWHaeupc870.7 cm (5' 8 )07/13/2025 8:06 AM ESTBody Mass Index37.68 07/13/2025 8:06 AM EST Plan of Treatment DateTypeDepartmentCare Team (Latest Contact Info)Nehwwrqrnjo31/03/2026 10:00 AM ESTOffice Visit [facility] [place] [address] Hu Bunn DO [address] [place] [address] 3 [place] F/U for COPD, respiratory failure.Health MaintenanceDue DateLast Done KmehxbnoUinrho71/18/1970Depression Wzrcxf3503/25/1972HIV akmzbg1503/25/1975Hepatitis C cvdwya3603/25/1978Pneumococcal 50+ years Vaccine (1 of 2 - PCV)1979 Diabetes krpcvt2503/25/19954247Cldfrrhniiz76/18/2005Colorectal Cancer Voesrx1203/25/2005 FIT/FOBT: Average risk2005Fecal-DNA (Cologuard): Average risk2005 Sigmoidoscopy/CT nbgnrnebpyac32/18/2005Shingles vaccine (1 of 2)2010 Respiratory Syncytial Virus (RSV) or age 60 yrs+ (1 - Risk 60-74 years 1-dose series)2020Lung Cancer Screening &/or Akpkjfmlva79/19/2023 12/25/2021AA rfftfy1903/25/2025Flu vaccine (#1)/02/2023, 05/23/2021 COVID-19 Vaccine (3 - [...] Team MemberRelationshipSpecialtyStart DateEnd Mario Zayas MD [address] [place] [id number] PCP - GeneralFamily Houyxezf86/7/25
--- OUTSIDE RECORDS SUMMARY | 2025-08-26 10:56 | XMS_ITS | Clinical Summary ---
Author Organization [facility] Address [address] [place] [address] Care Team Providers Care Newspaper Peddler Name Role Phone Pauly Santacruz RAND CEMENTER Unavailable Mario Zayas MD Primary Care Provider [phone] Allergies Active AllergyReactionsCriticalityNoted DateCommentsGluten MealGI intoleranceLow 05/08/2022Isosorbide XovoljqRhknsbsmAks80/14/2022 Medications MedicationSigDispense QuantityRefillsLast FilledStart DateEnd DateStatus albuterol [...] 30 capsule Expired Active Problems ProblemNoted DateDiagnosed JescGutysixdmv35/14/2024DD (degenerative disc disease), prjrkg9801/20/2024 Overview (01/20/2024): The patient is a 62 [...] has had no benefit with gabapentin increase. Efaeguvvkqr26/14/2024oronary artery disease involving coronary bypass graft of [place] heart without angina otafgyhu53/12/2022History of maze procedure 05/20/2022Hx of CABG05/20/2022aroxysmal atrial uwmcmyrxzkmo87/12/2022Thoracic aortic aneurysm without fivitvo5905/20/2022 Resolved Problems ProblemNoted DateDiagnosed DateResolved DateCentrilobular zqjeqqccg26/18/2025 2025 Overview (2025): Noted by [facility] last documented on 20241027 Hypertensive heart disease with heart tabmxoa28/18/41280503/25/2025 Overview (2025): Noted by [facility] last documented on 20241001 Chronic iqschmcdheudeqc74hronic systolic heart failure Erectile kdefcaoscfl69ardiomyopathy, ysygvmrj14lass 2 severe obesity due to excess calories with serious comorbidity and body mass index (BMI) of35.0 to 35.9 in adult08/16/2024 2025Pain in wristPure abvlngnwtdpwxlubckro12/09/2024 03/25/20252848Czpyaahpr63Mixed blirhcskvodwvs86 Primary vllxodeodbks43Peripheral vapbnywcmtsvaf62/20/2023 06/27/2023eliac rlzojkc69ervicalgia Headache in back of headhronic obstructive lung disease Sinus Encounters DateTypeDepartmentCare WxlbVdhqdjiwiyd41/04/2025 1:50 PM ESTOffice Visit [facility] [address] [place] [address] Yuri Rowe DPM Paronychia, toe, left (Primary Dx); PVD (peripheral vascular disease); Other ofgprjiljtboek90/04/2025amboo flowsheet [facility] [address] [place] [address] Yuri Rowe DPM 08/11/20251702Yfgreh16/13/2025 4:40 PM ESTOffice Visit [facility] [address] [facility] [address] [place] [address] Yuri Rowe DPM PVD (peripheral vascular disease) (Primary Dx); Other polyneuropathy; Paronychia, toe, left07/21/2025bstract [facility] [address] [facility] [address] [place] [address] Yuri Rowe DPM 07/21/2025amboo flowsheet [facility] [address] [facility] [place] [address] [place] [address] Yuri Rowe DPM 07/21/20256064Mttskl81/29/2025bstract [facility] [address] [place] [address] [place] [address] Yuri Rowe DPM 07/06/2025bstract [facility] [address] [facility] [address] [place] [address] Yuri Rowe DPM 06/23/2025 9:30 AM EDTOffice Visit [facility] [address] [facility] [address] [place] [address] Yuri Rowe DPM PVD (peripheral vascular disease); Other polyneuropathy; Pain due to onychomycosis of toenails of both feet; Paronychia, toe, left06/23/2025amboo flowsheet [facility] [address] [facility] [address] [place] [address] Yuri Rowe DPM 06/23/2025Travelfrom Last 3 Months Immunizations ImmunizationAdministration DatesNext DueInfluenza, High Dose Seasonal, Preservative Free05/23/2021Influenza, injectable, MDCK, preservative free, vxawgrfptgot27/06/2023Pfizer Purple Cap SARS-CoV-2 Vcsxtakjdyc56/17/2021, 09/20/2020Tdap110/14/2022 Family History Medical HistoryRelationNameCommentsHeart diseaseFatherCancerMotherHeart disease MotherHypertensionMotherDiabetesSiblingRelationNameStatusCommentsFatherMother SiblingAlive Social History Tobacco UseTypesPacks/DayYears UsedDateSmoking Tobacco: EnjkyeJsjcmaxtdi110 09/08/1974 - 09/08/2009Smokeless Tobacco: Never Tobacco Cessation:Counseling Given: Yes Alcohol UseStandard Drinks/WeekCommentsNever0 (1 standard drink = 0.6 oz pure alcohol)ocassionallySex and Gender InformationValueDate RecordedSex Assigned at ZyshqOmvs33/16/2023 9:38 AM EDTLegal UfbEasw8502/06/2023 9:13 AM EDTGender JlaiwispDcxm68/16/2023 9:38 AM EDTSexual OrientationNot on file Last Filed Vital Signs Vital SignReadingTime TakenCommentsBlood Rufcapgb245/7812 1:57 PM EST Drrft053108/11/2025 1:57 PM ESTTemperature--Respiratory Nxul496509/20/2024 4:45 PM ESTOxygen Ngqizoznkb99%12/27/2024 10:42 AM EDTInhaled Oxygen Concentration-- Ojquyu786 kg (250 lb)08/11/2025 1:57 PM KYVIhyrkk779.8 cm (5' 10 )08/11/2025 1:57 PM ESTBody Mass Index35.8708/11/2025 1:57 PM EST Plan of Treatment DateTypeDepartmentCare Team (Latest Contact Info)Irswkukpbfv20/08/2026 10:50 AM ESTProcedure Visit [facility] [address] [place] [address] Yuri Rowe, MIN [address] [facility] [address] [place] [address] 10/17/2025 10:15 AM ESTOffice Visit [facility] [address] [place] [address] Tree Carmona S, DO [address] [place] [address] Insurance Care Teams Team MemberRelationshipSpecialtyStart DateEnd Mario Zayas MD [address] [place] [address] PCP - GeneralFamily Hviiarga34/16/25 Pauly Santacruz NP [address] [place] [address] Referring PhysicianFamily Medicine03/15/24
--- OUTSIDE RECORDS SUMMARY | 2025-08-26 10:56 | XMS_ITS | Clinical Summary ---
Author Organization [facility] Address [address] [place] [address] Phone Care Team Providers Care Foreign Clerk Name Role Phone Unavailable Primary Care Provider Unavailabl e Social History Tobacco UseTypesPacks/DayYears UsedDateSmoking Tobacco: Never AssessedSex and Gender InformationValueDate RecordedSex Assigned at BirthNot on fileLegal Sex Male08/03/2022 11:25 AM ESTGender IdentityNot on fileSexual OrientationNot on file Last Filed Vital Signs Vital SignReadingTime TakenCommentsBlood Uftmdpzq787/8609 2:58 PM EDT Nwbob0337 2:58 PM XXKQdbiefzmupx07.8 ??C (98.2 ??F)05/29/2022 2:58 PM EDTRespiratory Xget4433 2:58 PM EDTOxygen Qcfwsqsrpi35%05/29/2022 2:58 PM EDTInhaled Oxygen Concentration--Ucdxze211 kg (239 lb 7 oz)05/29/2022 2:58 PM OLFJhezff924 cm (5' 7.32 )05/29/2022 2:58 PM EDTBody Mass Index37.1509 2:58 PM EDT Plan of Treatment Not on file
--- OUTSIDE RECORDS SUMMARY | 2025-08-26 10:56 | XMS_ITS | Patient Health Record ---
Author Organization [facility] Address [address] [place] [address] Support Name Relationship Address Phone Nikunj Causey Guarantor Unknown Reason For Referral No Information Problems Problem Type SNOMED Code ICD Code Onset Dates Problem Status W/U Status Risk Notes Problem Encntr screen for infections w sexl mode of transmiss (Z113)03/13/2017Active confirmed Plan Of Treatment No Information
--- OUTSIDE RECORDS SUMMARY | 2025-08-26 10:56 | XMS_ITS | Patient Health Record ---
Author Organization 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, 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, 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 Active confirmed ProblemIron deficiency anemia (64786959)Iron deficiency anemia, unspecified (D50.9)03/09/2013ctiveconfirmedProblemTesticular hypofunction (595245189) Testicular hypofunction (E29.1)11/02/2013ctiveconfirmedProblemSleep apnea (18885294)Sleep apnea, unspecified (G47.30)11/25/2013ctiveconfirmedProblem Hereditary disorder of nervous system (284650924)Hereditary and idiopathic neuropathy, unspecified (G60.9)12/03/2013ctiveconfirmedProblemAngina pectoris (201541640)Angina pectoris, unspecified (I20.9)11/09/2015ActiveconfirmedProblem Cardiomyopathy (25301170)Cardiomyopathy, unspecified (I42.9)08/27/2012ctive confirmedProblemHeart failure (40635977)Heart failure, unspecified (I50.9) 03/09/2014ctiveconfirmedProblemDilatation of aorta (43576317)Thoracic aortic ectasia (I77.810)12/11/2015ActiveconfirmedProblemCeliac disease (370875825) Celiac disease (K90.0)ActiveconfirmedProblemIntestinal malabsorption (942171163) Intestinal malabsorption, unspecified (K90.9)09/27/2013ctiveconfirmedProblem Hemoptysis (34732646)Hemoptysis (R04.2)12/20/2013ctiveconfirmedProblemShortness of breath (467800593)Shortness of breath (R06.02)11/09/2015Activeconfirmed ProblemFatigue (74472728)Other fatigue (R53.83)11/08/2013ctiveconfirmedProblem Solitary pulmonary nodule (109403782)Solitary pulmonary nodule (R91.1)12/30/2013 ActiveconfirmedProblemAbnormal results of cardiovascular function studies (974095573)Abnormal result of other cardiovascular function study (R94.39) 11/30/2015Activeconfirmed Plan Of Treatment No Information Insurance Providers Payer Name Payer Address Payer Phone Subscriber Number Group Number Insured Name Patient Relationship to Insured Coverage Start Date Coverage End Date [employer] [address] [address] [place], [place] [address] [id number], RobertSelf - patient is the insured Medical (General) History Surgical History Surgery Date(Month/Year) 3 finger amputation,hernia, Total Hip Ar throplasty, Past SurgHx Till:04/22/2014
--- OUTSIDE RECORDS SUMMARY | 2025-08-26 10:56 | XMS_ITS | Clinical Summary ---
Author Organization [facility] Address [address] [place] [address] Care Team Providers Care Sweater Operator Name Role Phone Mario Zayas MD Primary Care Provider [phone] Allergies No known active allergies Medications MedicationSigDispense [...] Active Problems ProblemNoted DateDiagnosed DateObstructive sleep apnea ufldrapj05/21/2025enign hypertensive heart disease without congestive heart yrftljo4505/29/2025Nausea 04/14/2025bnormal cardiovascular stress test04/05/20259294Fyrlyeakc83/09/2024eliac hchgnpu5008/16/2024oronary artery disease involving [place]osh[place] coronary artery of [place]osh[place] heart without angina moizekik52/09/2024Erectile wjwjjrhappf23/09/2024ain in wrist08/16/2024eripheral /09/2024ardiomyopathy, ischemic 08/16/2024hronic systolic heart dsnnkpk3108/16/2024hronic anticoagulation 08/16/2024ure zxkgfsglwsadtspwyoyg49/09/2024lass 2 severe obesity due to excess calories with serious comorbidity and body mass index (BMI) of35.0 to 35.9 in adult08/16/2024Mixed tfgvroyevhvodx21/17/2024Essential hypertension 06/24/2024DD (degenerative disc disease), byrpcd8401/20/2024 Overview (08/16/2024): The patient is a 62 [...] has had no benefit with gabapentin increase. Atdwnefpif72/14/0104Zikfvempztq85/14/2024History of maze aoedwlgad77/12/2022 Paroxysmal A-fib05/20/2022Thoracic aortic aneurysm without lcqizso6905/20/2022 Vpeqculwcqa68/01/2018Headache in back of head04/08/2018 Resolved Problems ProblemNoted DateDiagnosed DateResolved DateAbdominal aortic aneurysm (AAA) without nwtugnk14/27/29187001/02/2025Left ventricular bfpzafebsbh53/17/2024 04/18/2025 Encounters DateTypeDepartmentCare YmolJotbbtuvnco71/23/2025[facility] [address] [facility] [place] [address] Tari Nevarez MA 06/02/2025Tephone [facility] [address] [facility] [place] [address] Melita Ignacio MA 05/27/2025 11:[address] [facility] [address] [facility] [place] [address] Dorinda Diaz MD Coronary artery disease involving pai[place]shoshone coronary artery of pai[place]shoshone heart without angina pectoris (Primary Dx); Cardiomyopathy, [...] alcohol)occasionalSex and Gender InformationValueDate RecordedSex Assigned at XyqspYftu08/05/2025 3:26 PM EDTLegal TarWttr18/15/2024 2:46 PM ESTGender HybhsfwmLiwu37/05/2025 3:26 PM EDTSexual OrientationHeterosexual or Straight 04/12/2025 3:26 PM EDT Last Filed Vital Signs Vital SignReadingTime TakenCommentsBlood Edrajont58/56005/27/2025 11:01 AM EDT Iuokv6879/19/2025 11:01 AM EDTTemperature--Respiratory Nfdj311204/21/2025 3:45 PM EDTOxygen Aacsivugbt21%05/27/2025 11:01 AM EDT3 lpm o2 via n/cInhaled Oxygen Concentration--Smtolc852 kg (237 lb)05/27/2025 11:01 AM DSVEgarae791.3 cm (5' 9 )05/27/2025 11:01 AM EDTBody Mass Sfmmd217105/27/2025 11:01 AM EDT Plan of Treatment Health MaintenanceDue DateLast DoneCommentsCT Kqjtyrubyuet1960Colonoscopy 1960Colorectal Cancer Xtwbzlgdv1960FIT-DNA1960FIT1960 FOBT1960Medicare Annual Wellness (AWV)1960Medicare Initial Physical (IPPE)1960 0157Ocyxrhulrwuye1960Depression Epfkxobps95/18/1972 Pneumococcal Vaccine: 50+ Years (1 of 2 - PCV)1979Zoster Vaccines (1 of 2) 2010Fall Risk Ibedazbgz20/18/2025COVID-19 Vaccine (3 - season) /, 09/20/2020Influenza Vaccine (#1)/02/2023, 05/23/2021dult Amaihuk60/02/2023HIB VaccinesAged OutNo longer eligible based on patient's [...] MemberRelationshipSpecialtyStart DateEnd Mario Zayas MD [address] [facility] [address] [place] [id number] [facility]02/09/25
--- OUTSIDE RECORDS SUMMARY | 2025-08-26 10:56 | XMS_ITS | Clinical Summary ---
Author Organization [facility] Address [id number] [address] 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 [employer] Primary Care Provider [phone] Allergies Active AllergyReactionsCriticalityNoted JdwwUpxekswlWkvzif84/31/2022Isosorbide MzfllxcevbqRecttjtf44/14/2022 Medications MedicationSigDispense QuantityRefillsLast FilledStart DateEnd DateStatus omeprazole (PriLOSEC) 40 mg capsule Take 1 capsule (40 mg total) by mouth in the morning.03/19/2022ctive gabapentin (NEURONTIN) 600 mg tablet Take 1 tablet (600 mg total) by mouth 3 (three) times a day.03/30/2022ctive DALIRESP 500 mcg tablet Take 1 tablet (500 mcg total) by mouth in the morning.03/15/2022ctive lmopucbiogi-unrvhxnhv-wmujzvpu (TRELEGY ELLIPTA) 200-62.5-25 mcg blister with device [...] artery disease involving coronary bypass graft of [place] heart without angina pectoris,Paroxysmal atrial fibrillation (CMS-HCC),Aneurysm [...] artery disease involving coronary bypass graft of [place] heart without angina pectoris,Hx of CABG,Paroxysmal atrial fibrillation (CMS-HCC),Aneurysm of ascending aorta without rupture,History of maze procedure Take 100 mg in the morning and 50 mg at night 270 tablet ctive theophylline (BRYAN-24) 400 MG 24 hr capsule Take 1 capsule (400 mg total) by mouth in the morning.Active atorvastatin (LIPITOR) 40 mg tablet Indications:Coronary artery disease involving coronary bypass graft of [place] heart without angina pectoris,Hx of CABG,Paroxysmal atrial [...] artery disease involving coronary bypass graft of [place] heart without angina pectoris,Paroxysmal atrial fibrillation (CMS-HCC),Aneurysm of ascending aorta without rupture,Hx of CABG,History of maze procedureDISSOLVE 1 TABLET UNDER THE TONGUE NEEDED FOR CHEST PAIN- MAY REPEAT EVERY 5 MINUTES IF NEEDED (MAX 3 DOSES.- IF NO RELIEF CALL 911) 25 tablet 4Active lisinopriL (PRINIVIL,ZESTRIL) 5 mg tablet Indications:Coronary artery disease involving coronary bypass graft of [place] heart without angina pectoris,Hx of CABG,Paroxysmal atrial fibrillation (CMS-HCC),Aneurysm of ascending aorta without rupture,History of maze procedure Take 1 tablet (5 mg total) by mouth in the morning. FINAL REFILL UNTIL LABS COMPLETED. 90 tablet 5Active Active Problems ProblemNoted DateDiagnosed DateMixed sziukmpoxginzd79/17/2024rimary jjvgwjkaqagv66/17/2024Left ventricular hrtisrrjlao09/17/2024oronary artery disease involving coronary bypass graft of guid[place] heart without angina pectoris 05/20/2022aroxysmal atrial qoghvwxlxasf62/12/2022Thoracic aortic aneurysm without saqkzwm7005/20/2022Hx of CABG05/20/2022History of maze ofhscrzwr95/12/2022 Family History Medical HistoryRelationNameCommentsHeart diseaseFatherBreast cancerMotherCancer MotherRelationNameStatusCommentsFatherDeceasedMaternal [...] Last Filed Vital Signs Vital SignReadingTime TakenCommentsBlood Jlmrchxi231/6206/24/2024 1:52 PM EDT Vvfqa019306/24/2024 1:52 PM EDTTemperature--Respiratory Rate--Oxygen Fyzfcjtdti69% 06/24/2024 1:52 PM EDTInhaled Oxygen Concentration--Rgmocb910.1 kg (245 lb) 06/24/2024 1:52 PM QWMTbvakw462.7 cm (5' 7.99 )06/24/2024 1:52 PM EDTBody Mass Index37.261 1:52 PM EDT Plan of Treatment Health MaintenanceDue DateLast DoneCommentsDepression Sxqubkxcj54/18/1972Zoster (Shingles) Vaccine (1 of 2)2010Fall Risk Zkvskzelu40/18/2025Influenza Xalnyqd59/02/2023, 05/23/2021dult BMI Dzisxnjwn74 Tobacco Djmouqzll39Statin Use: Cvpxzszgjtuppr55/30/2026 10/07/2024DTaP,Tdap and Td Vaccines (2 - Td or Tdap)RSV ( or age 60+ yrs) (1 - 1-dose 75+ series)2035 [employer] Not on file Insurance * Guarantor: Nikunj CauseyAccount TypeRelation to PatientDate of PhoneBilling AddressPersonal/GiacyzBxpy1960 [address] [place] [address] Care Teams Team MemberRelationshipSpecialtyStart DateEnd Date Pauly Santacruz APRN-CHAO [address] [place] [address] PCP - GeneralFamily Owaphmbb78/17/24
--- OUTSIDE RECORDS SUMMARY | 2025-08-26 10:57 | XMS_ITS | Patient Health Record ---
Author Organization [facility] Address [address] [facility] [place] [id number] Care Team Providers Care Lcac Radar Operator/Navigator Name Role Phone Pauly Santacruz Primary Care Provider Charis Casas Unavailable [phone] Allergies No Known Allergies Results Component Value Reference Range Flag Notes HARRIETT/SEBASTIAN AB ID PANEL Reviewed date:09/18/2024 12:27:51 [...] for homogeneous, speckled, nucleolar and centromere patterns. LIPID PANEL WITH REFLEX TO DIRECT LDL Reviewed date:09/18/2024 12:27:51 PM Interpretation: Performing Lab: Notes/Report:ZSGTHQCUQNS144443-818 mg/dFOSYSZBKVGHQOD49017-223 mg/dLH VLDL-CHOL, CALCULATED 33<30 mg/dLHHDL-CHOL42>=40 mg/dL LDL-CHOL, CALCULATED 88<130 mg/dL ADULT LDL [...] Reviewed date:09/18/2024 12:27:51 PM Interpretation: Performing Lab: Notes/Report:[id number] U/LANTI NUCLEAR AB REFLEX TITER n ABID Reviewed date:09/18/2024 12:27:51 PM Interpretation: Performing Lab: Notes/Report:ANTI NUCLEAR ANTIBODIESPOSITIVENegativeA HARRIETT by Multiplex Flow Immunoassay is intended for the qualitative screening of specific antinuclear antibodies (HARRIETT), the quantitative detection of antibody to dsDNA, and the semi-quantitative detection of ten (10) separate antibody assays (Chromatin, Ribosomal P, SS-A, SS-B, Sm, SmRNP, [place] [employer] LIMOUSINE, Scl-70, Faustina-1, and Centromere B) in human serum. CBC W/AUTO DIFF Reviewed date:09/18/2024 12:27:51 PM Interpretation: Performing Lab: Notes/Report:WBC8.13.6-11.0 THDS/CMMRBC4.224.40-6.10 MILL/EUGIFKH61.713.0-18.0 G/DLHCT41.539-52 %QXU9234-845 fLMCH32.526.0-32.0 auDHCZW30.032.0-35.0 g/dlRDW 12.711.2-14.8 %VEBBXNTL292740-771 THOUS/CULDDRBMCCNLBH69.545-75 %HLYMPHOCYTES 10.720-45 %LMONOCYTES3.60-13 %EOSINOPHILS0.20-5 %BASOPHILS0.60-2 %IMMATURE GRAN 1.40-2 %ABS NEUTROPHILS6.761.9-8.0 K/uLABS LYMPHOCYTES0.870.9-5.2 K/uLLABS MONOCYTES0.290.1-1.0 K/uLABS EOSINOPHILS0.020.0-0.80 K/uLABS BASOPHILS0.050.0- 0.2 K/uLABS IMMATURE GRAN0.110.00-0.06 K/uLH UNLESS OTHERWISE INDICATED, ALL TESTING PERFORMED AT: [employer] [address] [place] [address] [facility] COACH: SISSY PEARSON M.D. CLIA NUMBER [id number] CAP ACCREDITATION AUID [id number] COMPREHENSIVE METABOLIC PANEL (AMA) Reviewed date:09/18/2024 12:27:51 PM Interpretation: Performing Lab: Notes/Report:TXOWUHO97584-932 mg/zEEGOGSPG176851-146 mmol/LPOTASSIUM4.53.5-5.4 mmol/SUENQMDZV79593-204 mmol/RHO53094-72 mmol/TUEQ672-33 mg/dL CREATININE, BLOOD 0.860.67-1.30 mg/dLeGFR (2020 CKD-EPI)97>59 mL/min/1.36f5JTLRKAU5.88.6- 10.5 mg/Swetha. PROTEIN6.46.0-8.3 g/dLALBUMIN4.33.5-5.2 g/dLGLOBULIN2.11.8-3.8 g/dL A/G RATIO2.01.0-2.5 RATIOALK BRYR9451-895 U/KQYC-ITJL308-21 U/GEEW-LGDL134-16 U/LT. BILIRUBIN0.5<1.3 mg/dL Reason For Referral No Information Medications Medication SIG (Take, Route, Frequency, Duration) Notes Start Date End Date Status Omeprazole 40 MG Capsule Delayed Release 1 capsule 30 minutes before morning meal Orally Once a day; Duration: 90 days ActiveMetoprolol Succinate ER 100 MG Tablet Extended Release 24 Hour1 tablet Orally two times a day , 2 tab AM, 2 tabsnightActiveZinc 50 MG Tablet1 tablet Orally Once a dayActiveIpratropium-Albuterol 0.5-2.5 (3) MG/3ML Solution3 mL as needed Inhalation every 6 hrsActiveAspirin 81 MG Tablet Chewable1 tablet Orally Once a dayActiveOndansetron 8 MG Tablet Disintegrating1 tablet on the tongue and allow to dissolve as needed Orally Once a day; Duration: 30 days5Active predniSONE 10 MG Tablet1 tablet Orally Once a dayActiveSodium Chloride (Inhalant)3 ml via nebulizer 2x dailyActivePregabalin ERActiveEliquis 5 MG Tabletas directed OrallyActiveAzithromycin 250 MG Tabletas directed OrallyActive Atorvastatin Calcium 40 MG Tablet1 tablet Orally Once a dayActiveVitamin C 1000 MG Tablet1 tablet Orally Once a dayActiveMeloxicam 15 MG Tablet1 tablet Orally Once a day PT NEEDS APPT; Duration: 30 daysActiveTheophylline ER 400 MG Tablet Extended Release 24 Hour1 tablet Orally Once a dayActiveVitamin D 50 MCG (1999) Tablet1 tablet Orally Once a dayActiveIron 65 MG Tablet1 tablet Orally Once a dayNot-Taking/PRNRoflumilast 500 MCG Tablet1 tablet Orally Once a dayActive Ventolin HFA 90 MCG/ACT Aerosol Solution2 puff as needed Inhalation every 4 hrs ActiveVitamin B12 1000 MCG Tablet Extended Release1 tablet Orally Once a day Not-Taking/PRNNitroglycerin 0.4 MG Tablet Sublingualas directed SublingualActive Pregabalin 150 MG Capsule1 capsule Oral three times daily; Duration: 30 days ActiveTrelegy Ellipta 100-62.5-25 MCG/INH Aerosol Powder Breath Activated1 puff Inhalation Once a dayActiveLisinopril 5 MG Tablet1 tablet Orally Once a day; Duration: 90 DaysActiveSUMAtriptan Succinate 100 MG Tablet1 tablet at least 2 hours between doses as needed Orally Daily; Duration: 5 days09/25/2023 Not-Taking/PRNDuoNeb 0.5-2.5 (3) MG/3ML Solution3 ml as needed Inhalation every 6 hrsNot-Taking/PRN Immunizations Vaccine Route Administration Date Status Comme nts *Cpybqutea-Urioatlmu-Iouqm te IM Intramuscular 08/13/2023 Administered *Tdap (Adacel)-PrivateIM Loifzdngmpudu34/06/2023dministered Social History Tobacco Use: Social History Observation Description Date Details (start date - stop date) Former Smoker 09/08/1976 - 09/08/2009 Sex Assigned At : Social History Observation Description Sex Assigned At Male Social History Social DeterminantsSocial InfoQuestionAnswerNotesPRAPAREDate Completed/Updated: 09/15/2024patient entered dataWhat is your current housing situation?I have housingpatient entered dataAre you worried about losing your housing?No patient entered dataWhat is the highest level of school that you have finished?More than high schoolpatient entered dataWhat is your current work situation?Otherwise unemployed but not seeking work (ex. 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 Check all that applyI choose not to answer this questionHas lack of transportation kept you from medical appointments, meetings, work or from getting things needed for daily living?NoHow stressed are you? Stress is when someone feels tense, nervous, anxious, or can't sleep at nightbecause their mind is troubledNot at allpatient entered dataIn the past year have you spent more than 2 nights in a row in a nursing home, retirement, penitentiary center, orjuvenile correctional facility?Nopatient entered dataAre you a refugee?Nopatient entered dataWhat country are you from?[place] patient entered dataDo you feel physically and emotionally safe where you currently live?Yespatient entered dataIn the past year, have you been afraid of your partner or ex-partner?Nopatient entered dataPRAPARE Score:3PCMH and UDS DemographicsSocial InfoQuestionAnswerNotesPrimary Care Medical Home QuestionsDo you have any barriers to learning?Nonepatient entered dataWhat is your preferred method of learning?Doing or practicingpatient entered dataHow often do you need to have someone help you read instructions?Neverpatient entered dataHousehold:Social InfoQuestionAnswerNotesHouseholdNumber of adults in household:2Drugs/Alcohol/Caffeine:Social InfoQuestionAnswerNotesAlcohol Screen (Audit-C)Did you have a drink containing alcohol in the past year?YesPoints0 InterpretationNegativeDrugsHave you used drugs other than those for medical reasons in the past 12 months?NoCAGE-AID Questionnaire (2018 Edition)Have you ever felt that you ought to cut down on your drinking or drug use?Nopatient entered dataHave people annoyed you by criticizing your drinking or drug use?No patient entered dataHave you ever had a drink or used drugs first thing in the morning to steady your nerves or to get rid of a hangover?Nopatient entered dataCAGE-AID Cvwct1QqrqzyyeyselmhZrxdlievIavyratdLwhpmd:3-4 cups per day Tobacco Use:Social InfoQuestionAnswerNotesTobacco Use/SmokingTobacco use:former smokerpatient entered data? When did you start smoking?09/08/1976patient entered data? When did you stop smoking?09/08/2009patient entered data? How long has it been since you last smoked?5-10 yearspatient entered data Additional DetailsCategorySocial InfoOptionsDetailsMiscellaneous: Culture/Language BarrierNoEducation LevelCollegeBarriers to LearningNoneLearning PreferenceDoing or practicingHow often do you need to have someone help you read instructionsNeverSafetyPatient feels safe in relationshipsYes Drugs/Alcohol/Caffeine:Do you drink alcohol?Socially Problems Problem Type SNOMED Code ICD Code Onset Dates Problem Status W/U Status Risk Notes Problem Celiac disease (812139392) Celiac disease (K90.0) ActiveconfirmedDx for lot worker referral only.ProblemNausea (114643320)Nausea (R11.0)ActiveconfirmedProblemAtherosclerotic heart disease of [place] coronary artery without angina pectoris (231954390530477)Coronary artery disease with history of coronary revascularization (I25.10)ActiveconfirmedProblemErectile dysfunction (disorder) (594480293)Erectile dysfunction, unspecified erectile dysfunction type (N52.9)ActiveconfirmedDx for lab work only.ProblemArthritis (2910193)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)ActiveconfirmedProblemNeuropathy (586769215) Neuropathy (G62.9)ActiveconfirmedProblemArthritis (3840146)Arthritis (M19.90) ActiveconfirmedProblemInflammatory and toxic neuropathy (717244158)Peripheral polyneuropathy (G62.9)ActiveconfirmedProblemPain in wrist (85756484)Wrist arthralgia (M25.539)Activeconfirmed Vital Signs Heart Rate 78 /min 09/15/2024 Laws, Ser vando 09/15/2024 11:13:58 AM EST > Temperature 97.4 degrees Fahrenheit 09/15/2024 Valcrystal hanks, Randy 09/15/2024 11:13:58 AM EST > Respiratory Rate 18 /min 09/15/2024 Laws, Randy 09/15/2024 11:13:58 AM EST > Oximetry 96 % 09/15/2024 Laws, Ser vando 09/15/2024 11:13:58 AM EST > Blood pressure diastolic 82 mm Hg 09/15/2024 Destinee dovinos, Randy 09/15/2024 11:13:58 AM EST > Weight-kg 111.58 kg 09/15/2024 Laws, Ser vando 09/15/2024 11:13:58 AM EST > Height 68 in 09/15/2024 Laws, Ser vando 09/15/2024 11:13:58 AM EST > Blood pressure systolic 121 mm Hg 09/15/2024 Valcrystal hanks, Randy 09/15/2024 11:13:58 AM EST > Weight 246 lbs 09/15/2024 Laws, Ser vando 09/15/2024 11:13:58 AM EST > BMI 37.4 kg/m2 09/15/2024 Laws, Ser vando 09/15/2024 11:13:58 AM EST > Encounters Encounter Location Date Provider Diagnosis [facility] [address] [facility] [id number] 09/15/2024 Charis Yessenia Nausea R11.0 ; Rayo k stools R19.5 ; Screening for cardiovascular condition Z13.6 ; Obesity, Class II, BMI 35-39.9 E66.812 and BMI 37.0-37.9, adult Z68.37 Main [address] [id number] 09/18/2024 Charis [facility] [address] [place], [place] [address]lyssa WeilandArthritis M19.90 Assessments Encounter Date Diagnosis (ICD Code) [...] Z13.6)09/15/2024Obesity, Class II, BMI 35-39.9 (ICD-10 - E66.812)09/15/2024MI 37.0-37.9, adult (ICD-10 - Z68.37) Plan Of Treatment No Information Insurance Providers Payer Name Payer Address Payer Phone Subscriber Number Group Number Insured Name Patient Relationship to Insured Coverage Start Date Coverage End Date [employer] [address] [address] [place] [address] [phone] [id number] Aliya Causeyelf - patient is the [id number] 2019 Medical (General) History Medical History History ICD Code GERD (gastroesophageal reflux disease) K 21.9 COPD (chronic obstructive pulmonary dise ase) J44.9 Arthritis Chronic back painM54.9Oxygen kkranpolwO37.81Atrial omfmdhriguln801.31Coronary artery disease with history of coronary yvvniupkowffopdyuH64.10Peripheral atomsmysnoE49.9Celiac zdzkrchI25.0Surgical History Surgery Date(Month/Year) amputation right hand finger 1977 hernia 1989 skin cancer removal on back 1989 left hip replacement 2005 heart surgery - CABG, ablation 2015 right hip replaced 2016 right shoulder 2017 lasic surgery tubes in right ear
--- OUTSIDE RECORDS SUMMARY | 2025-08-26 10:57 | XMS_ITS | Patient Health Record ---
Author Organization [facility] in [place] Address [address] [place] [address] Care Team Providers Care Residential Child Care Counselor Name Role Phone Andres Zayas Primary Care Provider Hu Bunn Unavailable [phone] Allergies No Known Allergies Results Component Value Reference Range Notes BNP Reviewed date:01/08/2025 05:36:32 PM Interpretation: Performing Lab: Notes/Report: [facility] , NT Pro B Type Natriuretic Pept 68.0 <=900.0 pg /mL Performing Lab:see noteML - [facility] LBCBC AUTO DIFF Reviewed date:06/14/2025 04:33:29 PM Interpretation: Performing Lab: Notes/Report: [facility] ,White Blood Count8.04.0-11.0 10 3/uLRed Blood Count4.074.70-6.10 10 6/uL Hkwvrdwitb96.314.0-18.0 g/nTXnjjerpeku42.042.0-54.0 %Mean Corpuscular Volume 100.780.0-94.0 fLMean Corpuscular Ebrbzrwbxl44.725.9-34.0 pgMean Corpuscular HGB Conc32.429.9-35.2 g/dLRed Cell Distribution Width14.711.0-15.0 %Platelet Count 059824-239 10 3/uLMean Platelet Volume9.09.5-13.5 fLNeutrophils Percent Auto79.3 43.0-75.0 %Lymphocytes Percent Auto10.220.5-60.0 %Monocytes Percent Auto8.81.7- 12.0 %Eosinophils Percent Auto0.60.9-7.0 %Basophils Percent Auto0.20.2-2.0 % Immature Granulocytes Pct Auto0.90.0-0.5 %Neutrophils Absolute Auto6.41.4-6.5 10 3/uLLymphocytes Absolute Auto0.81.2-3.8 10 3/uLMonocytes Absolute Auto0.70.3-0.8 10 3/uLEosinophils Absolute Auto0.10.0-0.7 10 3/uLBasophils Absolute Auto0.00.0- 0.1 10 3/uLImmature Granulocytes Abs Auto0.070.00-0.03 10 3/uLPerforming Lab:see noteML - [facility] LBPROF 14(COMP METB) Reviewed date:06/14/2025 04:33:29 PM Interpretation: Performing Lab: Notes/Report: [facility] ,Opjlub104393-675 mmol/LPotassium4.23.5-5.1 mmol/ADqonzfhh01038-295 mmol/LCarbon Vhgzwno97.821.0-32.0 mmol/LAnion Gap10.1Tonkfba6392-518 mg/dLBlood Urea Nitrogen 29.07.0-18.0 mg/dLCreatinine0.810.70-1.30 mg/dLEstimated GFR ( Denisse>60 >=60 mL/min/1.73m 2Estimated GFR (Non- Tri>60>=60 mL/min/1.73m 2BUN Creatinine Ratio35.9Dfwuvwe3.38.5-10.1 mg/dLBilirubin Total0.40.2-1.0 mg/dL Aspartate Amino Lqfwkcnsnih6000-54 U/LAlanine Khrwcdojczvojyyj7641-29 U/L Alkaline Fpdyhdxaviv2474-954 U/LTotal Protein6.76.4-8.2 g/dLAlbumin Level3.63.4- 5.0 g/dLGlobulin3.1Albumin Globulin Ratio1.2Performing Lab:see noteML - [facility] LBBLOOD GASES BTY Reviewed date:10/27/2024 03:45:50 PM Interpretation: Performing Lab: Notes/Report: [facility] ,pH ABG7.3417.350-7.450ABG STW417.335.0-45.0 mmHgRESULTS CALLED TO [place] AT 38[address]XD0 ABG72.980.0-100.0 mmHgHCO3 ABG32.022.0-26.0 mmol/LBase Excess ABG 6.3-2.0-2.0 mmol/LOxygen Saturation ABG94.0Allen TestPOSITIVEPOSITIVELiters per Pzeskq3Ieyyysyq SiteRBPerforming Lab:see noteTri[facility] LB INSULIN Reviewed date:01/08/2025 05:36:32 PM Interpretation: Performing Lab: Notes/Report: [facility] ,Puydzqh01.02.6-24.9 uIU/mL Performed at: [address] [id number] Network Security Administrator: Candido Villegas PhD, Phone: [phone] Performing Lab:[facility] LBPSA SCREENING Reviewed date:01/08/2025 05:36:32 PM Interpretation: Performing Lab: Notes/Report: [facility] ,Prostate Specific Antigen Scrn2.20<=4.00 ng/mLPerforming Lab:see noteTri[facility] LBCalcium, Ionized, Serum Reviewed date:01/23/2025 10:13:17 PM Interpretation: Performing Lab: Notes/Report: [facility] ,Calcium, Ionized, Serum5.34.5-5.6 mg/dL Performed at: [address] [id number] Network Security Administrator: Candido Villegas PhD, Phone: [phone] Performing Lab:see [facility] LBMR head/brain wo con Reviewed date:02/21/2025 01:09:15 PM Interpretation: Performing Lab: Notes/Report: Source Facility: [facility]-[address] [place] [address] [place] [address] Magnetic Resonance Report Signed Patient: ELISE TABOR MR#: [id number] : 1960 Acct:[id number] Age/Sex: 64 / M ADM Date: 02/21/25 Loc: MRI Attending Dr: Donna Zayas M.D. Ordering Physician: Donna Zayas M.D. Date of Service: 02/21/25 Procedure(s): MR head/brain wo con Accession Number(s): [id number] cc: Donna Zayas M.D. [place] [id number] Patient Name: ELISE TABOR MRN: [facility]:[id number] date: 1960 Sex: M Assigned Patient Location: MRI Current Patient Location: MRI Accession/Order Number: [id number] Exam Date: 02/21/2025 10:55 Report Date: 02/21/2025 [...] Salazar M.D. 02/21/2025 11:03 AM Dictation Location: [place] [address] Electronically authenticated by: [id number] Y Date: 02/21/2025 11:03 Dictated By: Uyen Salazar M.D. Signed By: 02/21/25 1105 DD/ 1103 TD/TT: Cloth Checker:LIPID PROFILE Reviewed date:03/17/2025 06:46:32 PM Interpretation: Performing Lab: Notes/Report: [facility] ,Xxzaqxztjcavi643<=150 mg/hWVjtpdblvmjw514<=200 mg/dLHDL Xfvgxpvlpxh1663-26 mg/dL > or =60 mg/dl - LOW CARDIOVASCULAR RISK <40 mg/dl - HIGH CARDIOVASCULAR RISK LDL Cholesterol Sbvkcebdif03.6 <100 mg/dl OPTIMAL 100-129 mg/dl NEAR OR ABOVE OPTIMAL 130-159 mg/dl BORDERLINE HIGH 160-189 mg/dl HIGH >190 mg/dl VERY HIGH VLDL CRHJFOPBQZO74.4Chol HDL Ratio2.7 3.3 - 4.4 LOW RISK 4.4 - 7.1 AVERAGE RISK 7.1 - 11.0 MODERATE RISK >11.0 HIGH RISK Performing Lab:see noteML - [facility] LBSGOT Reviewed date:03/17/2025 06:46:32 PM Interpretation: Performing Lab: Notes/Report: [facility] ,Aspartate Amino Hgfldyxpdqu6985-67 U/LPerforming Lab:see note - [facility] LBSGPT Reviewed date:03/17/2025 06:46:32 PM Interpretation: Performing Lab: Notes/Report: [facility] ,Alanine Ifogzxpfeihtcqcb1149-22 U/LPerforming Lab:see noteML - [facility] SPECT rest str Reviewed date:03/20/2025 04:01:59 PM Interpretation: Performing Lab: Notes/Report: Source Facility: [place] [address] Nuclear Medicine Report Signed Patient: ELISE TABOR MR#: [id number] : 1960 Acct:[id number] Age/Sex: 64 / M ADM Date: 03/17/25 Loc: [place] Attending Dr: Benny Diaz M.D. Ordering Physician: Benny Diaz M.D. Date of Service: 03/17/25 Procedure(s): NM jose luis perf SPECT rest str Accession Number(s): [id number] cc: Donna Zayas M.D.; Benny Diaz M.D. Patient Name: ELISE TABOR MR#: [id number] : 1960 Exam Date: 03/17/2025 Ordering Doctor: DR. BENNY IDAZ M.D. RADIOLOGY REPORT PROCEDURE: NM JOSE LUIS [...] the study was pending per attending physician [facility] . For more details please see [...] M.D. Signed By: 03/18/251922 DD/ 21 TD/TT: Cloth Checker:CBC AUTO DIFF Reviewed date:04/19/2025 08:09:45 PM Interpretation: Performing Lab: Notes/Report: [facility] ,White Blood Count9.64.0-11.0 10 3/uLRed Blood Count4.414.70-6.10 10 6/uL Auyjzhvlrm82.414.0-18.0 g/tQHqopdrzxzf76.342.0-54.0 %Mean Corpuscular Cpbzll82.2 80.0-94.0 fLMean Corpuscular Yclbjqljhp38.725.9-34.0 pgMean Corpuscular HGB Conc 33.329.9-35.2 g/dLRed Cell Distribution Width13.511.0-15.0 %Platelet Nvthl435 150-450 10 3/uLMean Platelet Volume9.59.5-13.5 fLNeutrophils Percent Auto86.3 43.0-75.0 %Lymphocytes Percent Auto5.720.5-60.0 %Monocytes Percent Auto6.71.7- 12.0 %Eosinophils Percent Auto0.40.9-7.0 %Basophils Percent Auto0.30.2-2.0 % Immature Granulocytes Pct Auto0.60.0-0.5 %Neutrophils Absolute Auto8.31.4-6.5 10 3/uLLymphocytes Absolute Auto0.61.2-3.8 10 3/uLMonocytes Absolute Auto0.70.3-0.8 10 3/uLEosinophils Absolute Auto0.00.0-0.7 10 3/uLBasophils Absolute Auto0.00.0- 0.1 10 3/uLImmature Granulocytes Abs Auto0.060.00-0.03 10 3/uLPerforming Lab:see noteML - [facility] LBLIPID PROFILE Reviewed date:05/27/2025 05:30:12 PM Interpretation: Performing Lab: Notes/Report: [facility] ,Uheavxoecltyb528<=150 mg/iERbyytbztmoh981<=200 mg/dLHDL Kibmbvnhkil2436-90 mg/dL > or =60 mg/dl - LOW CARDIOVASCULAR RISK <40 mg/dl - HIGH CARDIOVASCULAR RISK LDL Cholesterol Jfxeftpopc64.0 <100 mg/dl OPTIMAL 100-129 mg/dl NEAR OR ABOVE OPTIMAL 130-159 mg/dl BORDERLINE HIGH 160-189 mg/dl HIGH >190 mg/dl VERY HIGH VLDL MAIYWTJTACA80.0Chol HDL Ratio3.5 3.3 - 4.4 LOW RISK 4.4 - 7.1 AVERAGE RISK 7.1 - 11.0 MODERATE RISK >11.0 HIGH RISK Performing Lab:see noteML - [facility] LBSGOT Reviewed date:05/27/2025 05:30:12 PM Interpretation: Performing Lab: Notes/Report: [facility] ,Aspartate Amino Ryjzistlucw8596-03 U/LPerforming Lab:see noteML - [facility] LBSGPT Reviewed date:05/27/2025 05:30:12 PM Interpretation: Performing Lab: Notes/Report: [facility] ,Alanine Sxjhexwadcjjwtli5240-49 U/LPerforming Lab:see noteML - [facility] LBGLYCOHEMOGLOBIN A1C Reviewed date:06/14/2025 04:33:29 PM Interpretation: Performing Lab: Notes/Report: [facility] ,Glycohemoglobin A1C5.54.5-6.2 % ADA RECOMMENDED LIMIT 4.0 - 6.0 ADA THERAPEUTIC TARGET < 7.0 ACTION SUGGESTED > 7.0 Estimated Average Xdsxhnl354Yojdmhdsgj Lab:see noteML - [facility] LB UA RANDOM W or MICROSCOPIC Reviewed date:06/14/2025 04:33:29 PM Interpretation: Performing Lab: Notes/Report: [facility] ,Color UrineYELLOWYELLOWClarity UrineCLEARCLEARSpecific [place] Urine1.020 1.005-1.025pH Urine6.05.0-9.0Protein UrineNEGATIVENEG/TRACE mg/dLGlucose Urine UA>=1000NEGATIVE mg/dLBilirubin UrineNEGATIVENEGATIVEKetones UrineNEGATIVE NEGATIVE mg/dLBlood UrineNEGATIVENEGATIVENitrite UrineNEGATIVENEGATIVE Urobilinogen Urine0.20.2-1.0 EU/dLLeukocyte Esterase UrineNEGATIVENEGATIVEWBC UrineNONE SEENNONE SEEN #/HPFRBC UrineNONE SEEN0-2 #/HPFBacteria UrineTRACENONE SEEN #/HPFMucus UrineSMALLNONE SEENSquamous Epithelial Cell UrineRARENONE/RARE #/LPFCrystals Seen?None SeenNone Seen #/HPFCast Seen?NONE SEENNONE SEEN #/LPF Performing Lab:see noteML - [facility] LBVitamin B6, Plasma Reviewed date:06/17/2025 08:45:45 AM Interpretation: Performing Lab: Notes/Report: J[facility] ,Vitamin B6, Plasma4.13.4-65.2 ug/L This test was developed and its performance characteristics determined by [facility]. It has not been cleared or approved by the Food and Drug Administration. Deficiency: <3.4 Marginal: 3.4 - 5.1 Adequate: >5.1 Performed at: [address], [place] [id number] Network Security Administrator: Davis Blackburn MD, Phone: [phone] Performing Lab:see [facility] LBANA w/Reflex Reviewed date:06/16/2025 06:06:27 PM Interpretation: Performing Lab: Notes/Report: [facility] ,HARRIETT DirectNegativeNegative Performed at: [address] [id number] Network Security Administrator: Candido Villegas PhD, Phone: [phone] Performing Lab:see [facility] LBProtein Electro.,S Reviewed date:06/21/2025 02:16:49 PM Interpretation: Performing Lab: Notes/Report: [facility] ,Protein, Total6.36.0-8.5 g/dLAlbumin3.72.9-4.4 g/qOPfwoy-2-Gruwmura6.20.0-0.4 g/gYXwtih-9-Lptadbib0.70.4-1.0 g/dLBeta Globulin0.80.7-1.3 g/dLGamma Globulin0.8 0.4-1.8 g/dLM-SpikeNot ObservedNot Observed g/dLGlobulin, Total2.62.2-3.9 g/dL A/G Ratio1.40.7-1.7Please note:Comment. Protein electrophoresis scan will follow via computer, mail, or trade mark examiner delivery. Performed at: [address] [id number] Network Security Administrator: Candido Villegas PhD, Phone: [phone] Performing Lab:see [facility] LBTSH W/ REFLEX FT4 Reviewed date:06/14/2025 04:33:29 PM Interpretation: Performing Lab: Notes/Report: [facility] ,TSH W/ REFLEX FT40.5330.358-3.740 uIU/mLPerforming Lab:see note - [facility] LBImmunofixation, Serum Reviewed date:06/16/2025 06:06:27 PM Interpretation: Performing Lab: Notes/Report: [facility] ,Immunofixation Result, SerumComment.No monoclonality detected.Immunoglobulin G, Qn, Oecgj050632-5783 mg/dLImmunoglobulin A, Qn, Serum<561-437 mg/dLResult confirmed on concentration.Immunoglobulin M, Qn, Jhktu5266-414 mg/dL Performed at: [address] [id number] Network Security Administrator: Candido Villegas PhD, Phone: [phone] Performing Lab:see [facility] LBMethylmalonic Acid, Serum Reviewed date:06/21/2025 02:16:49 PM Interpretation: Performing Lab: Notes/Report: [facility] ,Methylmalonic Acid, Boztk4280-595 nmol/L This test was developed and its performance characteristics determined by [facility]. It has not been cleared or approved by the Food and Drug Administration. Performed at: [address] [id number] Network Security Administrator: Davis Blackburn MD, Phone: [phone] Performing Lab:see [facility] LBVitamin B12 Reviewed date:06/15/2025 12:26:54 PM Interpretation: Performing Lab: Notes/Report: [facility] ,Vitamin K43936283-5459 pg/mL Performed at: [address] [id number] Network Security Administrator: Candido Villegas PhD, Phone: [phone] Performing Lab:see [facility] LBUrine Culture - [facility] Reviewed date:06/16/2025 06:06:27 PM Interpretation: Performing Lab: Notes/Report: [facility] ,Urine Culture - FRMCSee Below For Report Urine Culture - [facility] No Growth 2 Days Urine Culture - [facility] Urine Culture - [facility] No Growth 2 Days Urine Culture - FR[facility]CTesting performed at [facility]rine [facility] - [facility] No Growth 2 Days Urine Culture - [id number] [place] [address] Urine Culture - [facility] No Growth 2 Days Performing Lab:see uri - [facility] LBXR hip RT 2V w/ pelvis Reviewed date:06/14/2025 04:33:29 PM Interpretation: Performing Lab: Notes/Report: Source Facility: [facility]-[address] [place] [address] [place] [address] XRay Report Signed Patient: ELISE TABOR MR#: [id number] : 1960 Acct:[id number] Age/Sex: 65 / M ADM Date: 06/14/25 Loc: LAB Attending Dr: Donna Zayas M.D. Ordering Physician: Donna Zayas M.D. Date of Service: 06/14/25 Procedure(s): XR hip RT 2V w/ pelvis Accession Number(s): [id number] cc: Donna Zayas M.D. [place] [id number] Patient Name: ELISE TABOR MRN: [id number] date: 1960 Sex: M Assigned Patient Location: LAB Current Patient Location: LAB Accession/Order Number: [id number] Exam Date: 06/14/2025 10:12 Report Date: 06/14/2025 [...] Salazar M.D. 06/14/2025 11:01 AM Dictation Location: [place] [address] Electronically authenticated by: [id number] Y Date: 06/14/2025 11:01 Dictated By: Uyen Salazar M.D. Signed By: 06/14/25 1103 DD/ 110 TD/TT: Cloth Checker:GOLDEN PUENTE DIFF Reviewed date:06/27/2025 12:36:47 PM Interpretation: Performing Lab: Notes/Report: [facility] ,White Blood Count7.54.0-11.0 10 3/uLRed Blood Count4.414.70-6.10 10 6/uL Sqntdrfgyo35.414.0-18.0 g/xZGskwlwzuwj18.142.0-54.0 %Mean Corpuscular Volume 100.080.0-94.0 fLMean Corpuscular Uexfsylkke38.725.9-34.0 pgMean Corpuscular HGB Conc32.729.9-35.2 g/dLRed Cell Distribution Width14.411.0-15.0 %Platelet Count 903307-553 10 3/uLMean Platelet Volume9.29.5-13.5 fLNeutrophils Percent Auto77.4 43.0-75.0 %Lymphocytes Percent Auto12.220.5-60.0 %Monocytes Percent Auto8.01.7- 12.0 %Eosinophils Percent Auto0.90.9-7.0 %Basophils Percent Auto0.40.2-2.0 % Immature Granulocytes Pct Auto1.10.0-0.5 %Neutrophils Absolute Auto5.81.4-6.5 10 3/uLLymphocytes Absolute Auto0.91.2-3.8 10 3/uLMonocytes Absolute Auto0.60.3-0.8 10 3/uLEosinophils Absolute Auto0.10.0-0.7 10 3/uLBasophils Absolute Auto0.00.0- 0.1 10 3/uLImmature Granulocytes Abs Auto0.080.00-0.03 10 3/uLPerforming Lab:see noteML - [facility] LBCBC AUTO DIFF Reviewed date:07/18/2025 03:30:38 PM Interpretation: Performing Lab: Notes/Report: [facility] ,White Blood Count9.04.0-11.0 10 3/uLRed Blood Count4.434.70-6.10 10 6/uL Cdabrqwgrv97.314.0-18.0 g/yNBdmmpzlijt42.342.0-54.0 %Mean Corpuscular Volume 100.080.0-94.0 fLMean Corpuscular Rkyrzpnpoh21.325.9-34.0 pgMean Corpuscular HGB Conc32.329.9-35.2 g/dLRed Cell Distribution Width14.111.0-15.0 %Platelet Count 034678-520 10 3/uLMean Platelet Volume9.39.5-13.5 fLPerforming Lab:see note - [facility] LBPROF CHEM 8 (BAS METB) Reviewed date:04/19/2025 08:09:45 PM Interpretation: Performing Lab: Notes/Report: [facility] ,Nhryet969533-855 mmol/LPotassium5.13.5-5.1 mmol/AAaupssvd34014-976 mmol/LCarbon Yndxjim38.621.0-32.0 mmol/LAnion Gap4.4Kjhtfxa56416-352 mg/dLBlood Urea Nitrogen 25.07.0-18.0 mg/dLCreatinine0.900.70-1.30 mg/dLEstimated GFR ( Denisse>60 >=60 mL/min/1.73m 2Estimated GFR (Non- Tri>60>=60 mL/min/1.73m 2BUN Creatinine Ratio27.5Tajruyi15.98.5-10.1 mg/dLPerforming Lab:see note - [facility] LBCA echo w/ con Reviewed date:03/20/2025 04:01:59 PM Interpretation: Performing Lab: Notes/Report: Source Facility: [place] [address] Cardiology Report Signed Patient: ELISE TABOR MR#: [id number] : 1960 Acct:[id number] Age/Sex: 64 / M ADM Date: 03/17/25 Loc: [place] Attending Dr: Benny Diaz M.D. Ordering Physician: Benny Diaz M.D. Date of Service: 03/17/25 Procedure(s): CA echo w/ con Accession Number(s): [id number] cc: Donna Zayas M.D.; Benny Diaz M.D. Patient Name: ELISE TABOR MR#: [id number] : 1960 Exam Date: 03/17/2025 Ordering Doctor: [...] cm2, 3.62 cm2 AoV Area (VTI): Deceleration Mobile: Pressure Half-Time: Peak Velocity(Antegrade Flow): 0.90 m/s [...] M.D. Signed By: 03/18/251845 DD/ 44 TD/TT: Cloth Checker:RIGOBERTO echo doppler complete Reviewed date:02/03/2025 09:03:54 PM Interpretation: Performing Lab: Notes/Report: Source Facility: [facility]-[address] [place] [address] [place] [address] Cardiology Report Signed Patient: ELISE TABOR MR#: [id number] : 1960 Acct:[id number] Age/Sex: 64 / M ADM Date: 02/03/25 Loc: CARD Attending Dr: Benny Diaz M.D. Ordering Physician: Benny Diaz M.D. Date of Service: 02/03/25 Procedure(s): CA echo doppler complete Accession Number(s): [id number] cc: Donna Zayas M.D.; Benny Diaz M.D. Patient Name: ELISE TABOR MR#: [id number] : 1960 Exam Date: 02/03/2025 Ordering Doctor: [...] M.D. on 02/03/2025 at 20:39 Approved by: Abrhaam Card M.D. on 02/03/2025 at 20:46 Dictated by: Abraham Card M.D. on 02/03/2025 at 20:55 Approved by: Abraham Card M.D. on 02/03/2025 at 20:55 Dictated By: ABRAHAM CARD Signed By: 02/03/252055 DD/ 54 TD/TT: Cloth Checker:PROF [place](COMP METB) Reviewed date:01/19/2025 07:18:24 PM Interpretation: Performing Lab: Notes/Report: [facility] ,Bullbu160916-924 mmol/LPotassium5.03.5-5.1 mmol/TQoitjkcz00718-673 mmol/LCarbon Wlxmasw04.721.0-32.0 mmol/LAnion Gap13.9Asqbcfm39534-972 mg/dLBlood Urea Iamtrgal27.07.0-18.0 mg/dLCreatinine1.070.70-1.30 mg/dLEstimated GFR ( Denisse>60>=60 mL/min/1.73m 2Estimated GFR (Non- Tri>60>=60 mL/min/1.73m 2BUN Creatinine Ratio22.2Awahtfh9.98.5-10.1 mg/dLBilirubin Total0.70.2-1.0 mg/dL Aspartate Amino Gvrnxqsgyfc8591-01 U/LAlanine Nvfwubqoktbqgitl8936-27 U/L Alkaline Jcwneiewzfs8755-108 U/LTotal Protein6.96.4-8.2 g/dLAlbumin Level3.73.4- 5.0 g/dLGlobulin3.2Albumin Globulin Ratio1.2Performing Lab:see noteML - [facility] LBLIPID PROFILE Reviewed date:01/19/2025 07:18:24 PM Interpretation: Performing Lab: Notes/Report: [facility] ,Kgkfluagbqewm36<=150 mg/hHRqhrzskewge021<=200 mg/dLHDL Vxvwufojqwe3859-10 mg/dL > or =60 mg/dl - LOW CARDIOVASCULAR RISK <40 mg/dl - HIGH CARDIOVASCULAR RISK LDL Cholesterol Zjvgjbmidi36.0 <100 mg/dl OPTIMAL 100-129 mg/dl NEAR OR ABOVE OPTIMAL 130-159 mg/dl BORDERLINE HIGH 160-189 mg/dl HIGH >190 mg/dl VERY HIGH VLDL GBZFCKRHUNX85.2Chol HDL Ratio2.6 3.3 - 4.4 LOW RISK 4.4 - 7.1 AVERAGE RISK 7.1 - 11.0 MODERATE RISK >11.0 HIGH RISK Performing Lab:see noteML - [facility] LBTroponin I High Sensitivity Reviewed date:01/08/2025 05:36:32 PM Interpretation: Performing Lab: Notes/Report: [facility] ,Troponin I High Pdefbgcwjpy29.64.0-76.1 pg/mL CUT-OFF POINTS HAVE BEEN ESTABLISHED BASED ON THE FOURTH UNIVERSAL DEFINITION OF MYOCARDIAL INFARCTION. THE UPPER REFERENCE LIMIT (URL) OF TROPONIN, DEFINED THE 99TH PERCENTILE OF cTnI DISTRIBUTION IN A REFERENCE POPULATION, HAS BEEN CONFIRMED THE DECISION THRESHOLD FOR [place] DIAGNOSIS. 99TH PERCENTILE = 76.2 PG/ML NOTE: HIGH-SENSITIVITY TROPONIN ASSAY IS NOT INTENDED TO BE USED IN ISOLATION BUT SHOULD BE INTERPRETED IN CONJUNCTION WITH OTHER DIAGNOSTIC AND CLINICAL INFORMATION. Performing Lab:see noteML - [facility] LBURIC ACID SERUM Reviewed date:01/08/2025 05:36:32 PM Interpretation: Performing Lab: Notes/Report: [facility] ,Uric Acid3.43.5-7.2 mg/dLPerforming Lab:see note - [facility] LB TSH Reviewed date:01/08/2025 05:36:32 PM Interpretation: Performing Lab: Notes/Report: [facility] ,Thyroid Stimulating Hormone0.6300.358-3.740 uIU/mLPerforming Lab:see note - [facility] LBT4 Reviewed date:01/08/2025 05:36:32 PM Interpretation: Performing Lab: Notes/Report: [facility] ,T4 Thyroxine6.604.50-12.10 ug/dLPerforming Lab:see note - [facility] LBPROF 14(COMP METB) Reviewed date:01/08/2025 05:36:32 PM Interpretation: Performing Lab: Notes/Report: [facility] ,Sjeifo044117-168 mmol/LPotassium4.83.5-5.1 mmol/ZCzhxmewx58569-970 mmol/LCarbon Gzxxbfi23.321.0-32.0 mmol/LAnion Gap11.9Hhcbyll93320-844 mg/dLBlood Urea Xijsjnyx07.07.0-18.0 mg/dLCreatinine1.040.70-1.30 mg/dLEstimated GFR ( Denisse>60>=60 mL/min/1.73m 2Estimated GFR (Non- Tri>60>=60 mL/min/1.73m 2BUN Creatinine Ratio27.3Vqonymo95.48.5-10.1 mg/dLBilirubin Total0.50.2-1.0 mg/dLAspartate Amino Ldgycsqugrh4520-43 U/LAlanine Ysijxoquzxxktlci9583-31 U/L Alkaline Yefhfajknec4862-227 U/LTotal Protein7.46.4-8.2 g/dLAlbumin Level4.03.4- 5.0 g/dLGlobulin3.4Albumin Globulin Ratio1.2Performing Lab:see noteML - [facility] LBLIPID PROFILE Reviewed date:01/08/2025 05:36:32 PM Interpretation: Performing Lab: Notes/Report: [facility] ,Nvypfqrsqohzh359<=150 mg/oAAcpfvzruzve963<=200 mg/dLHDL Rhjddkbwcip1868-11 mg/dL > or =60 mg/dl - LOW CARDIOVASCULAR RISK <40 mg/dl - HIGH CARDIOVASCULAR RISK LDL Cholesterol Kuszssyulb121.8 <100 mg/dl OPTIMAL 100-129 mg/dl NEAR OR ABOVE OPTIMAL 130-159 mg/dl BORDERLINE HIGH 160-189 mg/dl HIGH >190 mg/dl VERY HIGH VLDL KHNMPLGKHTV79.2Chol HDL Ratio3.1 3.3 - 4.4 LOW RISK 4.4 - 7.1 AVERAGE RISK 7.1 - 11.0 MODERATE RISK >11.0 HIGH RISK Performing Lab:see noteML - [facility] LBGLYCOHEMOGLOBIN A1C Reviewed date:01/08/2025 05:36:32 PM Interpretation: Performing Lab: Notes/Report: [facility] ,Glycohemoglobin A1C5.54.5-6.2 % ADA RECOMMENDED LIMIT 4.0 - 6.0 ADA THERAPEUTIC TARGET < 7.0 ACTION SUGGESTED > 7.0 Estimated Average Klxwptg982Pqtfdvbrgd Lab:see noteML - [facility] LB FREE T3 Reviewed date:01/08/2025 05:36:32 PM Interpretation: Performing Lab: Notes/Report: [facility] ,Free T32.752.18-3.98 pg/mLPerforming Lab:see noteML - [facility] LB CBC AUTO DIFF Reviewed date:01/08/2025 05:36:32 PM Interpretation: Performing Lab: Notes/Report: [facility] ,White Blood Count12.74.0-11.0 10 3/uLRed Blood Count5.464.70-6.10 10 6/uL Snbywqyvlo38.014.0-18.0 g/wGMmwtvfgnfn48.242.0-54.0 %Mean Corpuscular Zcpkuz73.8 80.0-94.0 fLMean Corpuscular Kltujktiau08.125.9-34.0 pgMean Corpuscular HGB Conc 33.229.9-35.2 g/dLRed Cell Distribution Width12.811.0-15.0 %Platelet Zwpwt179 150-450 10 3/uLMean Platelet Volume9.49.5-13.5 fLNeutrophils Percent Auto86.7 43.0-75.0 %Lymphocytes Percent Auto6.220.5-60.0 %Monocytes Percent Auto5.81.7- 12.0 %Eosinophils Percent Auto0.20.9-7.0 %Basophils Percent Auto0.30.2-2.0 % Immature Granulocytes Pct Auto0.80.0-0.5 %Neutrophils Absolute Auto11.01.4-6.5 10 3/uLLymphocytes Absolute Auto0.81.2-3.8 10 3/uLMonocytes Absolute Auto0.70.3- 0.8 10 3/uLEosinophils Absolute Auto0.00.0-0.7 10 3/uLBasophils Absolute Auto0.0 0.0-0.1 10 3/uLImmature Granulocytes Abs Auto0.100.00-0.03 10 3/uLPerforming Lab:see noteML - [facility] LBXR Chest PA and Lateral (Routine CXR) * Reviewed date:10/26/2024 03:20:38 PM Interpretation: Performing Lab: Notes/Report: CA segmental UE or LE CARLOS Reviewed date:07/05/2025 07:33:48 PM Interpretation: Performing Lab: Notes/Report: Source Facility: [facility]-[address] [place] [address] [place] [address] Cardiology Report Signed Patient: ELISE TABOR MR#: [id number] : 1960 Acct:[id number] Age/Sex: 65 / M ADM Date: 07/05/25 Loc: CARD Attending Dr: LAVINIA RODRIGUEZ Ordering Physician: BROWN,LAVINIA Date of Service: 07/05/25 Procedure(s): CA segmental UE or LE CARLOS Accession Number(s): [id number] cc: LAVINIA RODRIGUEZ ; Donna Zayas M.D. 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 Interpretive Statements [...] CARD Signed By: 07/05/25190507/05/251905 DD/ 1430 TD/TT: Cloth Checker: Reason For Referral No Information Medications Medication SIG (Take, Route, Frequency, Duration) Notes Start Date End Date Status Protonix 40 MG 1 tablet Orally Once a day; Dura tion: 30 days 5ActiveRoflumilast 500 MCG1 tablet Orally QD; Duration: 90 daysActive Sodium Chloride 0.9 %3mL Inhalation BID; Duration: 90 days4Active Theophylline ER 300 MG1 tablet Orally every 12 hrs; Duration: 30 days05/26/2025 ActiveAcetaminophen 500 MG1 capsule as needed Orally every 6 hrsActiveVentolin HFA 108 (90 Base) MCG/ACT2 puffs as needed for SOB Inhalation Q4H; Duration: 90 daysActiveAspirin 81 81 MG1 tablet Orally Once a dayActiveVitamin B 12 500 MCG1 tablet Orally Once a dayActiveAtorvastatin Calcium 80 MG1 tablet Orally Once a dayActiveEliquis 5 MGas directed Orally twice dailyActivetiZANidine HCl 4 MG2 tabs Orally qhs; Duration: 30 01/07/2025tiveTopiramate 50 MG1 tablet Orally Once a day; Duration: 30 02/21/2025tivetraMADol HCl 50 MG 1 tablet as needed Orally tid; Duration: 7 days S76.319A 05/23/2025tiveTrelegy Ellipta 200-62.5-25 MCG/ACT 1 puff Inhalation QD; Duration: 90 days Rinse after use; Dispense #3 inhalers 08/17/2024ctiveLasix 40 MG1 tablet Orally Once a day; Duration: 4 days 08/26/2025tiveVitamin D3 50 MCG (2000 UT)1 capsule Orally Once a dayActive Farxiga 10 MGOral; Duration: 34 DaysActiveZinc 50 MG1 tablet Orally Once a day ActiveImitrex 100 MG1 tablet at least 2 hours between doses as needed Orally Twice a day; Duration: 01/07/2025tiveIpratropium-Albuterol 0.5-2.5 (3) MG/3ML3mL Inhalation QID; Duration: 90 daysActiveVitamin C 1000 MG1 tablet Orally Once a dayActiveNitroglycerin 0.4 MG1 tablet under the tongue and allow to dissolve as needed. Take every 5 minutes up to 3 times if chest pain persists Sublingual Three times a dayActiveOzempic (0.25 or 0.5 MG/DOSE) 2 MG/3MLInject 0.25ml Subcutaneous once weekly; Duration: 28 daysActivePregabalin 150 mgTAKE 1 CAPSULE BY MOUTH THREE TIMES DAILY; Duration: tiveLisinopril 5 MG1 tablet Orally Once a dayActiveMeloxicam 15 MG1 tablet Orally Once a day; Duration: 06/20/2025tiveMetoprolol Succinate ER 50 MG2 tablets am and 1pm OrallyActiveMucinex 600 MG1-2 tablets as needed for congestion Orally BID; Duration: 90 daysActive Immunizations Vaccine Route Administration Date Status Comme nts Flu, Flucelvax (5800-3972) ( 29819) 6 mos and older, single-dose syringe Unknown 08/13/2023 Administered VhbbNltbahf13/06/2023Administered Social History Tobacco Use: Social History Observation Description Date Details (start date - stop date) Former Smoker NA - NA Tobacco Control (Standard) Question Answer Notes Tobacco use: Former smoker How long has it been since you last smoked?Greater than 10 yearsAdditional Findings: Tobacco vtf-wiuqOq-uzuf heavy cigarette smoker (40+/day)AUDIT-C (Standard) Question Answer Notes Did you have a drink containing alcohol in the p ast year? No Dckbjx1ZojtjvhuvigcjyZaggcjye Problems Problem Type SNOMED Code ICD Code Onset Dates Problem Status W/U Status Risk Notes Problem Anemia (895771964) Anemia, unspecified (D 64.9) ActiveconfirmedProblemObesity (195042633)Obesity, unspecified (E66.9)Active confirmedProblemCentrilobular emphysema (61650244)Centrilobular emphysema (J43.2)ActiveconfirmedPrior treatment: Trelegy 200 > Trelegy 100 > Breztri > Spiriva. Not a candidate for EBV orlung reduction surgery.ProblemChronic respiratory failure (75194921)Chronic respiratory failure with hypoxia (J96.11) ActiveconfirmedProblemChronic respiratory failure (02921689)Chronic respiratory failure with hypercapnia (J96.12)ActiveconfirmedProblemCeliac disease (832174162)Celiac disease (K90.0)ActiveconfirmedProblemLong-term current use of inhaled steroid (109760919)USP (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 of inhaled steroids (Z79.51) ActiveconfirmedProblemLong-term current use of systemic steroid (225354675030981)USP (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 of systemic steroids (Z79.52)Active confirmedProblemHypertension (48087283)Hypertension (I10)ActiveconfirmedProblem Lumbosacral radiculopathy (0067072)Lumbosacral radiculopathy (M54.17)Active confirmedProblemGastroesophageal reflux disease (083992514)GERD (gastroesophageal reflux disease) (K21.9)ActiveconfirmedProblemEdema (79716535) Edema (R60.9)ActiveconfirmedProblemObstructive sleep apnea syndrome (69151024) ISABEL (obstructive sleep apnea) (G47.33)ActiveconfirmedProblemMigraine (71118941) Migraine (G43.909)ActiveconfirmedProblemAtrial fibrillation (30542776)Atrial fibrillation, unspecified (I48.91)ActiveconfirmedProblemIgA deficiency (83062119)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)ActiveconfirmedProblemThrombocytopenia (025192709)Thrombocytopenia (D69.6)ActiveconfirmedProblemHistory of atrial fibrillation (087766028)History of atrial fibrillation (Z86.79)Activeconfirmed ProblemCoronary arteriosclerosis (61423157)Coronary arteriosclerosis (I25.10) 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)ActiveconfirmedProblemEx-tobacco user (finding) (295338595)History of tobacco abuse (Z87.891)Tnmgcpvofnhafuc7xny x 35 years (70 pack-years), quit 2013ProblemGastroesophageal reflux disease (962039046)Gastroesophageal reflux disease (K21.9)ActiveconfirmedProblemHistory of respiratory disease (244251611)History of asbestosis (Z87.09)Activeconfirmed ProblemHamstring tear (S76.319A)ActiveconfirmedProblemArthralgia of the pelvic region and thigh (162671476)Hip pain, acute, right (M25.551)Activeconfirmed ProblemNondependent cannabis abuse (065924458)Marijuana use (F12.90)Active confirmedProblemThoracic aortic aneurysm without rupture (disorder) (98076091) Thoracic aneurysm without mention of rupture (I71.20)ActiveconfirmedProblem Degeneration of lumbar intervertebral disc (08190568)Lumbar degenerative disc disease (M51.369)Activeconfirmed Vital Signs Heart Rate 71 /min 03/23/2025 Dafxsmogwpy34.0 degrees Gwsicmgzby86/16/2025Respiratory Rate20 /min03/23/2025 Nkgrbnxc39 %03/23/2025lood pressure gulymtjbp99 mm Hg08/26/20259634Oivvxw70 in 08/26/2025lood pressure ghoemubk734 mm Hg08/26/20254588Jxwzky992 lbs110/27/2024MI 37.3 kg/m208/26/2025 Procedures Procedure Date Ordered Date Performed Result Body Sit e Split Night Sleep Study 10/27/2024 11/10/2024 N/A ABG05010/27/2024N/A Encounters Encounter Location Date Provider Diagnosis [facility] [address] [place] [address] 09/13/2024 Hu Bunn Centrilobular emphys larissa J43.2 [facility] [address] [place] [address] 10/05/2024 Hu Bunn [facility] [address] [place] [address]/ Hu BunnAcute cough R05.1B[facility] [place] [address]/11/2024Doug HoyAbnormal blood chemistry level R79.9 [facility] [place] [address] 01/23/2025Doug [facility] [place] [address]/Doug HoyWell adult Z00.00[facility] [address] [place] [address]/[facility] [place] [address]/08/2025Doug Hoy Chronic respiratory failure with hypercapnia J96.12[facility] [place] [address]/Doug HoyPulmonary Medicine [address] [place] [address]/06/2025[facility] [facility] [place] [address] 03/20/2025Doug [facility] [facility] [place] [address]/Doug [facility] [facility] [place] [address]/04/2025Doug [facility] [facility] [place] [address]/Doug [facility] [facility] [place] [address]/Doug Hoy Centrilobular emphysema J43.2BSt. [facility] [facility] [place] [address]/Doug [facility] [facility] [place] [address]/Doug HoyCentrilobular emphysema J43.2 and Encounter for long-term (current) drug use Z79.899[facility] [facility] [place] [address]/03/2025Doug Hoy Thrombocytopenia D69.6BSt. [facility] [facility] [place] [address]/05/2025Doug [facility] [facility] [place] [address]/Doug [facility] [facility] [place] [address]/Doug Hoy Hypertension I10 and Thrombocytopenia D69.6BSt. [facility] [facility] [place] [address]/Doug HoyElectronic Health [address], [place] [address]/06/2025Doug [facility] [place] [address]/Doug Hoy Edema R60.9[place] [address] [place] [address]/10/2024Doug HoyWell adult Z00.00 ; Coronary arteriosclerosis I25.10 ; Atrial fibrillation, unspecified I48.91 ; History of atrial fibrillation Z86.79 ; Granulomatous lung disease J84.10 ; Anemia, unspecified D64.9 ; Hypersomnia, unspecified G47.10 and GERD (gastroesophageal reflux disease) K21.[address] [address] 06Doug HoyCentrilobular emphysema J43.2 ; Obesity, unspecified E66.9 ; Coronary arteriosclerosis I25.10 ; History of atrial fibrillation Z86.79 ; Chronic respiratory failure with hypercapnia J96.12 [address] [address]/01/2025 Andres HoyHamstring tear S76.319A and Hypertension X21Pfj[address] [address]/Doug Hoy Hypertension I10 and Hamstring tear S76.319AB[address] [address]/03/2025Doug HoyHip pain, acute, right M25.551 and Chronic respiratory failure with hypercapnia J96.12[facility] [address] [place] [address]/[facility] Centrilobular emphysema J43.2 ; Chronic respiratory failure with hypoxia J96.11 ; Chronic respiratory failure with hypercapnia J96.12 ; ISABEL (obstructive sleep apnea) G47.33 ; History of tobacco rmuzxN73.891 ; History of asbestosis Z87.09 ; USP (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 of systemic steroids Z79.52 ; Group Home (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 of inhaled steroids Z79.51 and Obesity, unspecified E66.9[facility] [address] [place] [address]/[facility] Centrilobular emphysema J43.2 ; ISABEL (obstructive sleep apnea) G47.33 ; Chronic respiratory failure with hypercapnia J96.12 ; Chronic respiratory failure with hypoxia J96.11 ; History of tobacco cexvjG87.891 ; History of asbestosis Z87.09 ; USP (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 of systemic steroids Z79.52 ; Group Home (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 of inhaled steroids Z79.51 and Obesity, unspecified E66.9[facility] [address] [place] [address]/[facility] Centrilobular emphysema J43.2 ; Hypersomnia, unspecified G47.10 ; Chronic respiratory failure with hypercapnia J96.12 ; Chronic respiratory failure with hypoxia J96.11 ; Metabolic alkalosis E87.3 ; History of tobacco abuse Z87.891 ; History of asbestosis Z87.09 ; Coronary arteriosclerosis I25.10 ; Atrial fibrillation, unspecified I48.91 ; USP (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 of systemic steroids Z79.52 ; Group Home (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 of inhaled steroids Z79.51 and Obesity, unspecified E66.9B[address] [address]/04/2025Doug HoyHypertension I10 Assessments Encounter Date Diagnosis (ICD Code) Assessment Notes Treatment Notes Treatment Clinical Notes Section Notes 10/27/2024 Centrilobular emphys larissa (ICD-10 - J43.2) Prior treatment: Trelegy 200 > Trelegy 100 > Breztri > Spiriva. Not a candidate for EBV or lung reduction surgery. He is not an endobronchial valve candidate. He refused referral to lung transplantation center. Patient continues to complain of worsening shortness of breath. He was approved for Ohtuvayre, but there was a $500 blh-gu-ukgmdq cost monthly. He apparently did not feel [...] the 10mg/day dose. I reviewed labs that [facility] cardiology ordered from 10/01/2024. I note [...] to use a PAP/NIV if indicated. Unfortunately, [facility] has been very difficult to reach [...] Screen patiented for obstructive sleep apnea. His [place] was 13 and STOP-BANG was 8. He [...] to proceed with PAP therapy if indicated. Lksk-sq-ahhb was performed today regarding need for CPAP [...] 01/19/2025OSA (obstructive sleep apnea) (ICD-10 - G47.33) Fxps-po-wmjc encounter performed with the patient to document [...] @ bedtime and with any naps. -This hcpt-uf-mogr visit comes with my authorization that the patient's DME may request to renew, reorder, and/or replace tubing, supplies, mask, and/or PAP device (if applicable). 01/07/2025Well adult (ICD-10 - Z00.00)01/07/2025oronary arteriosclerosis (ICD- 10 - I25.10)5Centrilobular emphysema (ICD-10 - J43.2)Prior treatment: Trelegy 200 > Trelegy 100 > Breztri > Spiriva. Not a candidate for EBV orlung reduction surgery. He is not an endobronchial valve candidate. He refused referral to lung transplantation center. He refused or couldn't afford any other therapies. There really is not much else at this point. Will continue current treatment plan. 03/23/2025hronic respiratory failure with hypoxia (ICD-10 - J96.11) Smyh-py-jyre encounter performed with the patient to document [...] (ICD-10 - I10)holding lisinopril and repat bp ggjcam0805/16/2025Hypertension (ICD-10 - I10) 05/27/2025Hypertension (ICD-10 - I10)Hypotension - thingk over ixzgvf1805/27/2025 Hamstring tear (ICD-10 - S76.319A)06/14/2025Hip pain, acute, right (ICD-10 - M25.551)06/14/2025hronic respiratory failure with hypercapnia (ICD-10 - J96.12) 08/26/2025Edema (ICD-10 - R60.9)5Centrilobular emphysema (ICD-10 - J43.2)Prior treatment: Trelegy 200 > Trelegy 100 > Breztri > Spiriva. Not a candidate for EBV orlung reduction surgery.5Acute cough (ICD-10 - R05.1)01/08/2025bnormal blood chemistry level (ICD-10 - R79.9)01/24/2025Well adult (ICD-10 - Z00.00)02/17/2025hronic respiratory failure with hypercapnia (ICD-10 - J96.12)05/23/2025entrilobular emphysema (ICD-10 - J43.2)05/26/2025 Centrilobular emphysema (ICD-10 - J43.2)02/11/2025entrilobular emphysema (ICD- 10 - J43.2)02/11/2025Obesity, unspecified (ICD-10 - E66.9)06/14/2025 Thrombocytopenia (ICD-10 - D69.6)06/27/2025Hypertension (ICD-10 - I10)06/27/2025 Thrombocytopenia (ICD-10 - D69.6)02/11/2025oronary arteriosclerosis (ICD-10 - I25.10)05/26/2025Encounter for long-term (current) drug use (ICD-10 - Z79.899) 03/23/2025hronic respiratory failure with hypercapnia (ICD-10 - J96.12) [...] Regardless, the treatment is the same: BiPAP/NIV. 10/27/2024hronic respiratory failure with hypoxia (ICD-10 - J96.11) Muxs-xw-gkmi encounter performed with the patient to document [...] improve his breathing which he is refusing. 01/19/2025hronic respiratory failure with hypoxia (ICD-10 - J96.11) Ojau-jl-ruic encounter performed with the patient to document [...] (ICD-10 - G47.33) Previously evaluated. Continue PAP. Lzod-la-ttxa encounter performed with the patient to document [...] @ bedtime and with any naps. -This vukq-oq-mbpo visit comes with my authorization that the [...] was correct based on ABG drawn today. 10/27/2024History of tobacco abuse (ICD-10 - Z87.891)2ppd x [...] 02/11/2025Migraine (ICD-10 - G43.909)need MRI - progressive rakdhkbt65/16/2025 USP (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 of systemic steroids (ICD-10 - Z79.52) Discussed adverse effects of alf systemic steroids including, but not limited to: increased risk of cataracts, elevated blood sugars/worsening of underlying diabetes mellitus, impaired wound healing, gastrointestinal ulcers, osteoporosis. 01/07/2025Hypersomnia, unspecified (ICD-10 - G47.10)01/19/2025Long term (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 of systemic steroids (ICD-10 - Z79.52) Discussed adverse effects of oysterman systemic steroids including, but not limited to: increased risk of cataracts, elevated blood sugars/worsening of underlying diabetes mellitus, impaired wound healing, gastrointestinal ulcers, osteoporosis. 10/27/2024History of asbestosis (ICD-10 - Z87.09) Exposure to asbestos from brake pads. No evidence of asbestos on prior CT chest. 10/27/2024oronary arteriosclerosis (ICD-10 - I25.10) Patient changed to [facility] cardiology and voiced he is very [...] intake recommended. 10/27/2024trial fibrillation, unspecified (ICD-10 - I48.91)10/27/2024Long term (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 of systemic steroids (ICD-10 - Z79.52) Discussed adverse effects of alf systemic steroids including, but not limited to: increased risk of cataracts, elevated blood sugars/worsening of underlying diabetes mellitus, impaired wound healing, gastrointestinal ulcers, osteoporosis. 10/27/2024Long term (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 of inhaled steroids (ICD-10 - Z79.51) Patient was counseled to rinse & gargle with water after inhaled corticosteroid use. 10/27/2024Obesity, unspecified (ICD-10 - E66.9) Technically obese, but he has lost 20 pounds unintentionally over the past 2 months d/t decreased appetite. 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 01/19/2025Other Screen patiented for obstructive sleep apnea. His [place] was 13 and STOP-BANG was 8. He [...] agreement to proceed with PAP therapy if indicated.Vzps-ee-ksks was performed today regarding need for CPAP or BiPAP if he qualifies. Patient changed to [facility] cardiology and voiced he is very happy with the switch. HCO3- 39.5, Suspected chronic hypercapnic respiratory failure, which I was correct based on ABG drawn today. 03/23/2025Other Screen patiented for obstructive sleep apnea. His [place] was 13 and STOP-BANG was 8. He [...] agreement to proceed with PAP therapy if indicated.Qiyo-yt-dusq was performed today regarding need for CPAP or BiPAP if he qualifies. Patient changed to [facility] cardiology and voiced he is very [...] WO CON 02/11/2025 US AZUCENA DOP LEG LT 08/26/2025 US AZUCENA DOP LEG RT 05/13/2025 THYROID [...] Insured Coverage Start Date Coverage End Date [facility] [id number] [place] [phone] [id number] Aliya Taborelf - patient is the insured [...] G47.33 thrombocytopenia igA deficiencySurgical History Surgery Date(Month/Year) steroid injection in back 08/02 heart cath 05/02 Hernia Repair cataract removalAmputation-Fingerright hip replacementleft hip replacement shoulder replacement-Rightcoronary artery bypass lqfkm8362Slejkwcrdormfdq History Reason Date(Month/Year) [facility] 05/02/2023
== END 2025-08-26 10:51 | disposition home or self-care (01) ==
LOC: RAD 10:52
PROVIDERS: PCP Family Medicine; Visit Provider Family Medicine
DX: R60.0 Localized edema (principal); R60.9 Edema, unspecified
CPT/HCPCS: 93971

== ENCOUNTER 2025-09-07 13:16 | Outpatient (OUT) | payer MEDICARE, SELFPAY ==
--- OUTSIDE RECORDS SUMMARY | 2025-07-20 10:00 | XMS_ITS ---
Author Organization [facility] in [place] Address [address] [place] [address] Care Team Providers Care Pipe Setter Name Role Phone Andres Zayas Primary Care Provider [phone] Hu Bunn [phone] REASON FOR VISIT 6m F/U - COPD Encounters Encounter Location Date Provider Diagnosis Pulmonary Medicine [address] [address] 07/20/2025 Hu Bunn Plan Of Treatment No Information Progress Notes * Nikunj CAUSEY EDOB:1959 (65 yo M)Acc No.[id number]:07/20/2025 UNLOCKED PROGRESS NOTE Follow Up Patient: Edison WALTON Nikunj Atkinson :?Hu Bunn DODOB:1960???Age:65 Y ???Sex:MaleDate:07/20/2025Phone:[phone]:[address] [id number]:Andres Zayas Subjective: * Chief Complaints: * 1 . 6m F/U - COPD. * Medical History: Objective: * Vitals: Assessment: Plan: * Treatment: * * Electronic signature of Hu Bunn DO on 09/07/2025 at 01:22 PM ESTSign off status: PendingVisit Status:?CANC (Cancelled) * Provider: Kiah Bunn DO Date: 09/19/2024 Generated for Printing/Faxing/eTransmitting on:?09/07/2025 01:22 PM EST
--- OUTSIDE RECORDS SUMMARY | 2025-08-26 05:00 | XMS_ITS ---
Author Organization [facility] in [place] Address [address] [place] [address] Care Team Providers Care Medical Reception Specialist Name Role Phone Andres Zayas Primary Care Provider Allergies No Known Allergies REASON FOR VISIT Presents to office alone for c/o swelling off and on to left foot since steroid injection in back, Said has been feeling very bloated Medications Medication SIG (Take, Route, Frequency, Duration) Notes Start Date End Date Status Vitamin D3 50 MCG (1999) 1 capsule Orally Onc e a day ActiveZinc 50 MG1 tablet Orally Once a dayActiveVitamin C 1000 MG1 tablet Orally Once a dayActiveVentolin HFA 108 (90 Base) MCG/ACT2 puffs as needed for SOB Inhalation Q4H; Duration: 90 daysActiveVitamin B 12 500 MCG1 tablet Orally Once a dayActiveTheophylline ER 300 MG1 tablet Orally every 12 hrs; Duration: 30 days 5ActivetiZANidine HCl 4 MG2 tabs Orally qhs; Duration: 30 days 5ActiveTopiramate 50 MG1 tablet Orally Once a day; Duration: 30 days 5ActivetraMADol HCl 50 MG 1 tablet as needed Orally tid; Duration: 7 days S76.319A 5ActiveTrelegy Ellipta 200-62.5-25 MCG/ACT 1 puff Inhalation QD; Duration: 90 days Rinse after use; Dispense #3 inhalers 4ActiveProtonix 40 MG1 tablet Orally Once a day; Duration: 30 days 5ActiveRoflumilast 500 MCG1 tablet Orally QD; Duration: 90 daysActive Sodium Chloride 0.9 %3mL Inhalation BID; Duration: 90 days4Active Pregabalin 150 mgTAKE 1 CAPSULE BY MOUTH THREE TIMES DAILY; Duration: 90 5ActiveLasix 40 MG1 tablet Orally Once a day; Duration: 4 days 5ActiveNitroglycerin 0.4 MG1 tablet under the tongue and allow to dissolve as needed. Take every 5 minutes up to 3 times if chest pain persists Sublingual Three times a dayActiveOzempic (0.25 or 0.5 MG/DOSE) 2 MG/3MLInject 0.25ml Subcutaneous once weekly; Duration: 28 daysActiveMeloxicam 15 MG1 tablet Orally Once a day; Duration: 90 days5ActiveMetoprolol Succinate ER 50 MG2 tablets am and 1pm OrallyActiveMucinex 600 MG1-2 tablets as needed for congestion Orally BID; Duration: 90 daysActiveFarxiga 10 MGOral; Duration: 34 DaysActiveImitrex 100 MG1 tablet at least 2 hours between doses as needed Orally Twice a day; Duration: 30 days5ActiveIpratropium-Albuterol 0.5-2.5 (3) MG/3ML3mL Inhalation QID; Duration: 90 daysActiveEliquis 5 MGas directed Orally twice dailyActiveLisinopril 5 MG1 tablet Orally Once a dayActiveAcetaminophen 500 MG1 capsule as needed Orally every 6 hrsActiveAspirin 81 81 MG1 tablet Orally Once a dayActiveAtorvastatin Calcium 80 MG1 tablet Orally Once a day Active Social History Tobacco Use: Social History Observation Description Date Details (start date - stop date) Former Smoker NA - NA Tobacco Control (Standard) Question Answer Notes Tobacco use: Former smoker How long has it been since you last smoked?Greater than 10 yearsAdditional Findings: Tobacco zcj-knzdUe-pavs heavy cigarette smoker (40+/day)AUDIT-C (Standard) Question Answer Notes Did you have a drink containing alcohol in the p ast year? No Ezpsln9YabpufxoxkonkyZgahyczv Problems Problem Type SNOMED Code ICD Code Onset Dates Problem Status W/U Status Risk Notes Problem Edema (86544174) Edema (R60.9) Activeconfirmed Vital Signs Weight 260 lbs 08/26/2025 Height 70 in 08/26/2025 Blood pressure systolic 132 mm Hg 08/26/20 25 Blood pressure diastolic 80 mm Hg 025 BMI 37.3 kg/m2 08/26/2025 Encounters Encounter Location Date Provider Diagnosis [facility] [address] [place] [address] 08/26/2025 Andres Zayas Edema R60.9 Assessments Encounter Date Diagnosis (ICD Code) Assessment Notes Treatment Notes Treatment Clinical Notes Section Notes 08/26/2025 Edema (ICD-10 - R60.9) Plan Of Treatment Medication Medication Name Sig Start Date Stop Date Notes Lasix 40 MG 1 tablet Orally Once a day; Duration: 4 d ays 08/26/2025 Pending Test Test Name Order Date US AZUCENA DOP LEG LT 08/26/2025 Progress Notes * Nikunj CAUSEY EDOB:1959 (65 yo M)Acc No.[id number]:08/26/2025 Progress Note Patient: Nikunj DUNBAR :?Mario Zayas ([facility]), MDDOB:1960???Age: 65 Y???Sex:MaleDate:08/26/2025Phone:[phone]:[address] [place], [place]Iidtr In:09:50 AM ESTCheck Out:10:39 AM EST Subjective: * Chief Complaints: * P resents to office alone for c/o swelling off and on to left foot since steroid injection in backSaid has been feeling very bloated * HPI: ???General:? Still feels like walking on glass sop injecgtion may not [facility] feels wore. ???Interim History:? Patient presents for high blood pressure check. Doing well on medication. Denies chest pain, palpitations, lightheadedness, or vision changes. * ROS: ???General/Constitutional:?Lightheadedness?denies.?Fever?denies.?Headache?denies.?Cardiovascular:?Chest pain?denies.?Palpitations?denies.?Respiratory:?Cough?denies.?Shortness of breath?denies.? * Active Problem List J43.2 Centrilobular emphys larissa Modified On:11/19/2023 Status:ekievbvxfM76.11Chronic respiratory failure with hypoxia Modified On:11/19/2023 Status:lwpshhrpkW83.12Chronic respiratory failure with hypercapnia Modified On:10/27/2024 Status:azgvlsggzV91.9Anemia, unspecified Modified On:10/15/2023 Status:augawkbxoO46.79History of atrial fibrillation Modified On:11/27/2022 Status:wbbimctfsM09.10Coronary arteriosclerosis Modified On:11/27/2022 Status:dvekwzdxyD35.10Granulomatous lung disease Modified On:11/27/2022 Status:ufqbbirolT52.891History of tobacco abuse Modified On:11/19/2023 Status:awcokkxomM54.9Gastroesophageal reflux disease Modified On:11/27/2022 Status:nuhysnqtgX82.09History of asbestosis Modified On:11/19/2023 Status:znbyylxolQ05.33OSA (obstructive sleep apnea) Modified On:01/19/2025 Status:pscebnyooX63.91Atrial fibrillation, unspecified Modified On:07/13/2024 Status:qvszygpwhJ17.90Marijuana use Modified On:07/17/2023 Status:ixjvzwkqhP10.20Thoracic aneurysm without mention of rupture Modified On:11/27/2022 Status:andkvnpdvS41.9Obesity, unspecified Modified On:11/19/2023 Status:qhukparlqX42.52Long term (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 of systemic steroids Modified On:11/19/2023 Status:kqkqdndawA73.51Long term (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 of inhaled steroids Modified On:11/19/2023 Status:fqcdcnlzmY95.9GERD (gastroesophageal reflux disease) Modified On:01/07/2025 Status:ndokhxqbxJ53.909Migraine Modified On:02/11/2025 Status:xuehpnijoV03.319AHamstring tear Modified On:05/13/2025 Status:bfsjwmzovE83Zeacppfdwudf Modified On:05/13/2025 Status:wgoizgkxzO62.551Hip pain, acute, right Modified On:06/14/2025 Status:yrcnmisfpU37.6Thrombocytopenia Modified On:06/15/2025 Status:ghydbkdckT44.369Lumbar degenerative disc disease Modified On:06/15/2025 Status:qckzbqvnsZ83.2IgA deficiency Modified On:06/17/2025 Status:kunuccctnA35.0Celiac disease Modified On:06/17/2025 Status:ammbvievoR17.17Lumbosacral radiculopathy Modified On:07/22/2025 Status:tbbiyqmeqV31.9Edema Modified On:08/26/2025 Status:confirmed * Medical History: * Surgical History: c oronary artery bypass graft 2015shoulder replacement-Right left hip replacement right hip replacement Amputation-Finger cataract removal Hernia Repair heart cath 05/02steroid injection in back 08/02 * Hospitalization/Major Diagno stic Procedure: S OB-[facility] ER 05/02/2023 * Family History: F ather: , Back Problems, diagnosed with Heart Disease. M other: , breast cancer, diagnosed with Cancer, Hypertension, Heart Disease. S ister(s): diagnosed with Hypertension. * Social History: ???Tobacco Use:?Tobacco Control (Standard)?Tobacco use:?Former smoker ?How long has it been since you last smoked? Greater than 10 years ?Additional Findings: Tobacco non-user?Ex-very heavy cigarette smoker (40+/day) ?Electronic Cigarette use?Current user?No ?LM: Additional Tobacco Questions?Number of Years Pt Smoked:?35 ?Number of Packs per Day:?2 ?When did you stop smokin. ???Drug/Alcohol:?AUDIT-C (Standard)?Did you have a drink containing alcohol in the past year??No ?Points?0 ?Interpretation?Negative * Medications: T akingAcetaminophen 500 MG Capsule 1 capsule as needed Orally every 6 hrs Aspirin 81(Aspirin) 81 MG Tablet Delayed Release 1 tablet Orally Once a day Atorvastatin Calcium 80 MG Tablet 1 tablet Orally Once a day Eliquis(Apixaban) 5 MG Tablet as directed Orally twice daily Farxiga(Dapagliflozin Propanediol) 10 MG Tablet Oral Imitrex(SUMAtriptan Succinate) 100 MG Tablet 1 tablet at least 2 hours between doses as needed Orally Twice a day Ipratropium-Albuterol 0.5-2.5 (3) MG/3ML Solution 3mL Inhalation QID Lisinopril 5 MG Tablet 1 tablet Orally Once a day Meloxicam 15 MG Tablet 1 tablet Orally Once a day Metoprolol Succinate ER 50 MG Tablet Extended [...] Solution Pen-injector Inject 0.25ml Subcutaneous once weekly Pregabalin 150 mg Capsule TAKE 1 CAPSULE BY MOUTH THREE TIMES DAILY Protonix(Pantoprazole Sodium) 40 MG Tablet Delayed Release 1 tablet Orally Once a day Roflumilast 500 MCG Tablet 1 tablet Orally QD Sodium Chloride 0.9 % Nebulization Solution 3mL Inhalation BID Theophylline ER 300 MG Tablet Extended Release 12 Hour 1 tablet Orally every 12 hrs tiZANidine HCl 4 MG Tablet 2 tabs Orally qhs Topiramate 50 MG Tablet 1 tablet Orally Once a day traMADol HCl 50 MG Tablet 1 tablet as needed Orally tid S76.319ATrelegy Ellipta(Kgytwoyznuo-Rjlhchurd-Xwonbf) 200-62.5-25 MCG/ACT Aerosol Powder Breath Activated 1 [...] 1 tablet Orally Once a day Taking Eliquis(Apixaban) 5 MG Tablet as directed Orally twice daily Taking Farxiga(Dapagliflozin Propanediol) 10 MG Tablet Oral Taking Imitrex(SUMAtriptan Succinate) 100 MG Tablet 1 tablet at least 2 hours between doses as needed Orally Twice a day Taking Ipratropium-Albuterol 0.5-2.5 (3) MG/3ML Solution 3mL Inhalation QID Taking Lisinopril 5 MG Tablet 1 tablet Orally Once a day Taking Meloxicam 15 MG Tablet 1 tablet Orally Once a day Taking Metoprolol Succinate ER 50 MG Tablet [...] Pen-injector Inject 0.25ml Subcutaneous once weekly Taking Pregabalin 150 mg Capsule TAKE 1 CAPSULE BY MOUTH THREE TIMES DAILY Taking Protonix(Pantoprazole Sodium) 40 MG Tablet Delayed Release 1 tablet Orally Once a day Taking Roflumilast 500 MCG Tablet 1 tablet Orally QD Taking Sodium Chloride 0.9 % Nebulization Solution 3mL Inhalation BID Taking Theophylline ER 300 MG Tablet Extended Release 12 Hour 1 tablet Orally every 12 hrs Taking tiZANidine HCl 4 MG Tablet 2 tabs Orally qhs Taking Topiramate 50 MG Tablet 1 tablet Orally Once a day Taking traMADol HCl 50 MG Tablet 1 tablet as needed Orally tid S76.319ATaking Trelegy Ellipta(Mooyrtaxbrt-Fuzmxfjnk-Leuuvt) 200-62.5-25 MCG/ACT Aerosol Powder Breath Activated 1 [...] N .K.D.A.no[Allergies Verified] Objective: * Vitals: W t:260lbs, Ht: 70 in, BP:132/80mm Hg, BMI:37.3Index, Ht-cm: 177.8 cm, Wt-k.94 kg. * Examination: ???General Examination: ?GENERAL APPEARANCE:? in no acute distress, well developed,well nourished.?LUNGS:? clear to auscultation bilaterally.?CARDIO:? regular rate and rhythm, S1, S2 normal, no murmurs.?Lower Extremities: ???Left mor eht Right pitting edema. Assessment: * Assessment: 1.?Edema - R60.9 (Primary)??? Plan: * Treatment: Start Lasix Tablet, 40 MG, 1 tablet, Orally, Once a day, 4 days, 4 Tablet, Refills 0.?Imaging: US AZUCENA DOP LEG LT * Procedure Codes: * Preventive Medicine: ??Screenings/Counseling:?BMI ACTION PLAN?Above Normal BMI Follow-up?Dietary management education, guidance, and counseling See treatment section of progress note for complete details of management plan. ?FALL RISK SCREENING?Fall Risk Assessment:?No falls in the past year * * Sign off status: CompletedVisit Status:?CHK (Check Out) true * Provider: Dav Zayas ([facility])MD Date: 1 10/27/2024 Generated for Printing/FaSmartiog/eTransmitting on:?09/07/2025 01:22 PM EST History and Physical Notes * HPI (History of Present Illness) CategorySub-CategoryDetailNotesCategory NotesGeneral Still feels like walking on glass sop injecgtion may not have heloped breatih feels wore Examination CategorySub-CategoryDetailNotesCategory NotesLower ExtremitiesLeft mor eht Right pitting edemaGeneral ExaminationGENERAL APPEARANCE:in no acute distress, well developed, well nourishedCARDIO:regular rate and rhythm, S1, S2 normal, no murmursLUNGS:clear to auscultation bilaterally
--- OUTSIDE RECORDS SUMMARY | 2025-09-02 03:09 | XMS_ITS ---
Author Organization [facility] [place] Address [address] [place] [address] Care Team Providers Care Hat Renovator Name Role Phone Andres Zayas Primary Care Provider REASON FOR VISIT update water pills- Medications Medication SIG (Take, Route, Frequency, Duration) Notes Start Date End Date Status Lasix 40 MG 1 tablet Orally Once a day; Dura tion: 30 days 5ActivePotassium Chloride ER 10 MEQ1 capsule with food Orally Twice a day; Duration: 30 days5Active Encounters Encounter Location Date Provider Diagnosis [address] [address] 09/02/2025 Andres Zayas Edema R60.9 Assessments Encounter Date Diagnosis (ICD Code) Assessment Notes Treatment Notes Treatment Clinical Notes Section Notes 09/02/2025 Edema (ICD-10 - R60.9) Plan Of Treatment Medication Medication Name Sig Start Date Stop Date Notes Lasix 40 MG 1 tablet Orally Once a day; Duration: 30 days 08/26/2025 Potassium Chloride ER 10 MEQ1 capsule with food Orally Twice a day; Duration: 30 days09/02/2025Pending Test Test Name Order Date COMPREHENSIVE METABOLIC PROFILE WITH GFR 09/02/2025 BNP 09/02/2025 Progress Notes * Nikunj CAUSEY EDOB:1959 (65 yo M)Acc No.[id number]:09/02/2025 Patient:?Nikunj CAUSEY :1960???Age:65 Y???Sex:MalePhone:[phone] Address:[address] [place] [address] [place], [address] * Refills Refill Lasix Tablet, 40 MG, Orally, 30 Tablet, 1 tablet, Once a day, 30 days, Refills=11 Start Potassium Chloride ER Capsule Extended Release, 10 MEQ, Orally, 60, 1 capsule with food, Twice a day, 30 days, Refills=11 Subjective: * Chief Complaints: * U pdate water pills- * Medical History: * Surgical History: * Hospitalization/Major Diagno stic Procedure: * Medications: Objective: * Vitals: * Physical Examination: ??? Assessment: * Assessment: 1.?Edema - R60.9??? Plan: * Treatment: Refill Lasix Tablet, 40 MG, 1 tablet, Orally, Once a day, 30 days, 30 Tablet, Refills 11.?LAB: COMPREHENSIVE METABOLIC PROFILE WITH GFR ?LAB: BNP2.?Others? Start Potassium Chloride ER Capsule Extended Release, 10 MEQ, 1 capsule with food, Orally, Twice a day, 30 days, 60, Refills 11.?? * Procedure Codes: * true * Date:?Generated for Printing/Faxing/eTransmitting on:?09/07/2025 01:22 PM EST
--- OUTSIDE RECORDS SUMMARY | 2025-09-07 13:22 | XMS_ITS | Patient Health Record ---
Author Organization [facility] Main Address [address] [place] [address] Care Team Providers Care Band Nailer Name Role Phone Jaquan Dowell MD Primary [...] MGdaily ORALActiveSymbicort 80-4.5 MCG/ACT2 puffs twice daily OMNEWOSMUM13ActiveSpiriva HandiHaler 18 MCG2 puffs twice daily PVJAQECHRP98ActiveProAir HFA 108 (90 Base) MCG/ACT use every 4 hours NTNRVESBHX78ActivePlavix 75 MGTake one by mouth daily ORALActiveMagnesium Oxide 400 (240 Mg) MGTake one (1) tablet by mouth twice a day ORALActive Problems Problem Type SNOMED Code ICD Code Onset Dates Problem Status W/U Status Risk Notes Problem 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, 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, 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 Active confirmed ProblemIron deficiency anemia (61113696)Iron deficiency anemia, unspecified (D50.9)03/09/2013ctiveconfirmedProblemTesticular hypofunction (579756406) Testicular hypofunction (E29.1)11/02/2013ctiveconfirmedProblemSleep apnea (15469560)Sleep apnea, unspecified (G47.30)11/25/2013ctiveconfirmedProblem Hereditary disorder of nervous system (677189301)Hereditary and idiopathic neuropathy, unspecified (G60.9)12/03/2013ctiveconfirmedProblemAngina pectoris (817405549)Angina pectoris, unspecified (I20.9)11/09/2015ActiveconfirmedProblem Cardiomyopathy (90163429)Cardiomyopathy, unspecified (I42.9)08/27/2012ctive confirmedProblemHeart failure (63059654)Heart failure, unspecified (I50.9) 03/09/2014ctiveconfirmedProblemDilatation of aorta (06692201)Thoracic aortic ectasia (I77.810)12/11/2015ActiveconfirmedProblemCeliac disease (837094352) Celiac disease (K90.0)ActiveconfirmedProblemIntestinal malabsorption (758319391) Intestinal malabsorption, unspecified (K90.9)09/27/2013ctiveconfirmedProblem Hemoptysis (19294345)Hemoptysis (R04.2)12/20/2013ctiveconfirmedProblemShortness of breath (451011377)Shortness of breath (R06.02)11/09/2015Activeconfirmed ProblemFatigue (67861045)Other fatigue (R53.83)11/08/2013ctiveconfirmedProblem Solitary pulmonary nodule (063938980)Solitary pulmonary nodule (R91.1)12/30/2013 ActiveconfirmedProblemAbnormal results of cardiovascular function studies (500964859)Abnormal result of other cardiovascular function study (R94.39) 11/30/2015Activeconfirmed Plan Of Treatment No Information Insurance Providers Payer Name Payer Address Payer Phone Subscriber Number Group Number Insured Name Patient Relationship to Insured Coverage Start Date Coverage End Date [employer] [address] [address] [place], [place] [address] [id number], RobertSelf - patient is the insured Medical (General) History Surgical History Surgery Date(Month/Year) 3 finger amputation,hernia, Total Hip Ar throplasty, Past SurgHx Till:04/22/2014
--- OUTSIDE RECORDS SUMMARY | 2025-09-07 13:22 | XMS_ITS | Patient Health Record ---
Author Organization [facility], [facility] Address [address] [place] [address] Support Name Relationship Address Phone Nikunj Causey Guarantor Unknown [phone] Reason For Referral No Information Problems Problem Type SNOMED Code ICD Code Onset Dates Problem Status W/U Status Risk Notes Problem Encntr screen for infections w sexl mode of transmiss (Z113)03/13/2017Active confirmed Plan Of Treatment No Information
--- OUTSIDE RECORDS SUMMARY | 2025-09-07 13:22 | XMS_ITS | Clinical Summary ---
Author Organization [facility] Healthcare Address [address] [place] [address] Care Team Providers Care Any Commodity Buyer Name Role Phone Pauly Santacruz CEMENT MASON HELPER Unavailable Mario Zayas MD Primary Care Provider [phone] Allergies Active AllergyReactionsCriticalityNoted DateCommentsGluten MealGI intoleranceLow 05/08/2022Isosorbide QzvsugqJbifrczuAqg37/14/2022 Medications MedicationSigDispense QuantityRefillsLast FilledStart DateEnd DateStatus albuterol [...] Inhale 3 mL5Active Active Problems ProblemNoted DateDiagnosed IucmPqduyfqhdn51/14/2024DD (degenerative disc disease), zkrvav2801/20/2024 Overview (01/20/2024): The patient is a 62 [...] has had no benefit with gabapentin increase. Qiqsjxqyjwj96/14/2024oronary artery disease involving coronary bypass graft of [place] heart without angina jmyswvon16/12/2022History of maze procedure 05/20/2022Hx of CABG05/20/2022aroxysmal atrial frulflzsvnqs31/12/2022Thoracic aortic aneurysm without iovpccg5205/20/2022 Resolved Problems ProblemNoted DateDiagnosed DateResolved DateCentrilobular ucsvnafdr05/18/2025 2025 Overview (2025): Noted by [facility] last documented on 20241027 Hypertensive heart disease with heart vqitcuk53 Overview (2025): Noted by [facility] last documented on 20241001 Chronic phgrgdcnazlhowg73hronic systolic heart failure Erectile nulgjlhrkkg21ardiomyopathy, dfiuwgvv30lass 2 severe obesity due to excess calories with serious comorbidity and body mass index (BMI) of35.0 to 35.9 in adult08/16/2024 2025Pain in wristPure dwwcekkgvykuliingyoo17/09/2024 03/25/20250723Aktuzsmtw49Mixed trexfwcwzwtgzb76 Primary arikpojpefxx62Peripheral ogspmdzhwkckbc28/20/2023 06/27/2023eliac iqdkdof41ervicalgia Headache in back of headhronic obstructive lung disease Sinus mamdwziiiym95 Encounters DateTypeDepartmentCare WffnQqfwzzxxipv79/04/2025 1:50 PM ESTOffice Visit [facility] [address] [facility] [address] [place] [phone] Yuri Rowe DPM Paronychia, toe, left (Primary Dx); PVD (peripheral vascular disease); Other qqyejtenzbqyhn28/04/2025amboo flowsheet [facility] [address] [facility] [address] [place] [phone] Yuri Rowe DPM 08/11/20252831Pdrvja38/13/2025 4:40 PM ESTOffice Visit [facility] [address] [facility] [address] [place] [phone] Brown, Yuri A, DPM PVD (peripheral vascular disease) (Primary Dx); Other polyneuropathy; Paronychia, toe, left07/21/2025bstract [facility] [address] [facility] [address] [place] [address] Yuri Roew DPM 07/21/2025amboo flowsheet [facility] [address] [facility] [address] [place] [address] Yuri Rowe DPM 07/21/20254266Xgwaae77/29/2025bstract [facility] [address] [facility] [address] [place] [address] Yuri Rowe DPM 07/06/2025bstract [facility] [address] [facility] [address] [place] [address] Yuri Rowe DPM 06/23/2025 9:30 AM EDTOffice Visit [facility] [address] [facility] [address] [place] [address] Yuri Rowe, MIN PVD (peripheral vascular disease); Other polyneuropathy; Pain due to onychomycosis of toenails of both feet; Paronychia, toe, left06/23/2025amboo flowsheet [facility] [address] [facility] [address] [place] [address] Yuri Rowe DPM 06/23/2025Travelfrom Last 3 Months Immunizations ImmunizationAdministration DatesNext DueInfluenza, High Dose Seasonal, Preservative Free05/23/2021Influenza, injectable, MDCK, preservative free, vtguqmghdmus20/06/2023fizer Purple Cap SARS-CoV-2 Qmwghtoemvl82/17/2021, 09/20/2020Tdap110/14/2022 Family History Medical HistoryRelationNameCommentsHeart diseaseFatherCancerMotherHeart disease MotherHypertensionMotherDiabetesSiblingRelationNameStatusCommentsFatherMother SiblingAlive Social History Tobacco UseTypesPacks/DayYears UsedDateSmoking Tobacco: HtdpkvZxjbugqqof985 09/08/1974 - 09/08/2009Smokeless Tobacco: Never Tobacco Cessation:Counseling Given: Yes Alcohol UseStandard Drinks/WeekCommentsNever0 (1 standard drink = 0.6 oz pure alcohol)ocassionallySex and Gender InformationValueDate RecordedSex Assigned at CmvsrNpbu78/16/2023 9:38 AM EDTLegal AnyPwfd9002/06/2023 9:13 AM EDTGender NhfgcugwNsut37/16/2023 9:38 AM EDTSexual OrientationNot on file Last Filed Vital Signs Vital SignReadingTime TakenCommentsBlood Hudqefdb911/7812 1:57 PM EST Xdkks639808/11/2025 1:57 PM ESTTemperature--Respiratory Uyqw235609/20/2024 4:45 PM ESTOxygen Rtuvkzqwbw08%12/27/2024 10:42 AM EDTInhaled Oxygen Concentration-- Uoimkm900 kg (250 lb)08/11/2025 1:57 PM BAXQkgmbn612.8 cm (5' 10 )08/11/2025 1:57 PM ESTBody Mass Index35.8708/11/2025 1:57 PM EST Plan of Treatment DateTypeDepartmentCare Team (Latest Contact Info)Zgsdozmcmuv17/08/2026 10:50 AM ESTProcedure Visit [facility] [address] [facility] [address] [place] [phone] Yuri Rowe, DPEdison [address] [facility] [address] [place] [address] 10/17/2025 10:15 AM ESTOffice Visit [facility] [address] [place] [address] Tree Carmona DO [address] [place] [address] Insurance Care Teams Team MemberRelationshipSpecialtyStart DateEnd Mario Zayas MD [address] [place] [phone] PCP - GeneralFamily Gcnqyivl32/16/25 Pauly Santacruz NP [address] [place] [address] Referring PhysicianFamily Medicine03/15/24
--- OUTSIDE RECORDS SUMMARY | 2025-09-07 13:23 | XMS_ITS | Clinical Summary ---
Author Organization [facility] Address [address] [place] [address] Care Team Providers Care Heat Welder Plastics Name Role Phone Mario Zayas MD Primary Care Provider [phone] Allergies No known active allergies Medications MedicationSigDispense [...] Active Problems ProblemNoted DateDiagnosed DateObstructive sleep apnea bjozbhno29/21/2025enign hypertensive heart disease without congestive heart zcwtvyh0005/29/2025Nausea 04/14/2025bnormal cardiovascular stress test04/05/20254109Wljmoxokz55/09/2024eliac sgmkivi8008/16/2024oronary artery disease involving [place] coronary artery of [place] heart without angina mrhdnvio02/09/2024Erectile poqbupyvrwr41/09/2024ain in wrist08/16/2024eripheral qdsjnvlppsuoht89/09/2024ardiomyopathy, ischemic 08/16/2024hronic systolic heart xwixyfc9108/16/2024hronic anticoagulation 08/16/2024ure uwoczkoocgbhrwfemasl37/09/2024lass 2 severe obesity due to excess calories with serious comorbidity and body mass index (BMI) of35.0 to 35.9 in adult08/16/2024Mixed avqykoguftiepf71/17/2024Essential hypertension 06/24/2024DD (degenerative disc disease), ngftiu3301/20/2024 Overview (08/16/2024): The patient is a 62 [...] has had no benefit with gabapentin increase. Eelthfhzdy88/14/0759Zhxpaffkrou11/14/2024History of maze pbjuiukuq99/12/2022 Paroxysmal A-fib05/20/2022Thoracic aortic aneurysm without ktbgvae6905/20/2022 Fevkkizamgg96/01/2018Headache in back of head04/08/2018 Resolved Problems ProblemNoted DateDiagnosed DateResolved DateAbdominal aortic aneurysm (AAA) without ehvdblh84/27/42126501/02/2025Left ventricular fdcvrcesvtd64/17/2024 04/18/2025 Encounters DateTypeDepartmentCare XfmkPwxcsiskbge36/23/2025[facility] [address] [place] [address] Tari Nevarez MA from Last 3 Months Family History Medical HistoryRelationNameCommentsCoronary artery diseaseFatherCoronary artery diseaseMotherRelationNameStatusCommentsFatherDeceasedMotherDeceasedSisterAlive Social History Tobacco UseTypesPacks/DayYears UsedDateSmoking Tobacco: FormerCigarettes Smokeless Tobacco: Never Tobacco Cessation:Counseling Given: Not Answered Alcohol UseStandard Drinks/WeekCommentsYes0 (1 standard drink = 0.6 oz pure alcohol)occasionalSex and Gender InformationValueDate RecordedSex Assigned at EtsppMhpg45/05/2025 3:26 PM EDTLegal XasXyjj37/15/2024 2:46 PM ESTGender ZyviatsnVorw92/05/2025 3:26 PM EDTSexual OrientationHeterosexual or Straight 04/12/2025 3:26 PM EDT Last Filed Vital Signs Vital SignReadingTime TakenCommentsBlood Zwwtoedm66/56005/27/2025 11:01 AM EDT Bflfv0057/19/2025 11:01 AM EDTTemperature--Respiratory Albn1887 3:45 PM EDTOxygen Dpvvpccpzs72%05/27/2025 11:01 AM EDT3 lpm o2 via n/cInhaled Oxygen Concentration--Arknpt870 kg (237 lb)05/27/2025 11:01 AM UWNBhfcip707.3 cm (5' 9 )05/27/2025 11:01 AM EDTBody Mass Ypyuf769805/27/2025 11:01 AM EDT Plan of Treatment Health MaintenanceDue DateLast DoneCommentsCT Ikkopvqtekwx1960Colonoscopy 1960Colorectal Cancer Rubxytutk1960FIT-DNA1960FIT1960 FOBT1960Medicare Annual Wellness (AWV)1960Medicare Initial Physical (IPPE)1960 3244Clwgqggqqlphs1960Depression Swtgbrcav97/18/1972 Pneumococcal Vaccine: 50+ Years (1 of 2 - PCV)1979Zoster Vaccines (1 of 2) 2010Fall Risk Fjeunkqmw34/18/2025OVID-19 Vaccine (3 season) , 09/20/2020Influenza Vaccine (#1)512/02/2023, 05/23/2021dult Xjseagd82HIB VaccinesAged OutNo longer eligible based on patient's [...] MemberRelationshipSpecialtyStart DateEnd Mario Zayas MD [address] [facility] [address] [address] PCP - GeneralFamily Medicine02/09/25
--- OUTSIDE RECORDS SUMMARY | 2025-09-07 13:23 | XMS_ITS | Patient Health Record ---
Author Organization [facility] Address [address] [place] [id number] Care Team Providers Care Welfare Aide Name Role Phone Pauly Santacruz Primary Care Provider Aditya Casasyssa Unavailable [phone] Allergies No Known Allergies Results Component Value Reference Range Flag Notes ANTI NUCLEAR AB REFLEX TITER n ABID Reviewed date:09/18/2024 12:27:51 PM Interpretation: Performing Lab: Notes/Report: ANTI NUCLEAR ANTIBODIES POSITIVE Negative A HARRIETT by Multiplex Flow Immunoassay is intended for the qualitative screening of specific antinuclear antibodies (HARRIETT), the quantitative detection of antibody to dsDNA, and the semi-quantitative detection of ten (10) separate antibody assays (Chromatin, Ribosomal P, SS-A, SS-B, Sm, SmRNP, ADVERTISING SALES EXECUTIVE, Scl-70, Faustina-1, and Centromere B) in human serum. AMYLASE Reviewed date:09/18/2024 12:27:51 PM Interpretation: Performing Lab: Notes/Report: AMYLASE 50 31-125 U/L LIPID PANEL WITH REFLEX TO DIRECT LDL Reviewed date:09/18/2024 12:27:51 PM Interpretation: Performing Lab: Notes/Report:YNVMQJMRQZX181570-075 mg/sGWSHQJEAVOOGFR76819-316 mg/dLH VLDL-CHOL, CALCULATED 33<30 mg/dLHHDL-CHOL42>=40 mg/dL LDL-CHOL, [...] for homogeneous, speckled, nucleolar and centromere patterns. CBC W/AUTO DIFF Reviewed date:09/18/2024 12:27:51 PM Interpretation: Performing Lab: Notes/Report:WBC8.13.6-11.0 THDS/CMMRBC4.224.40-6.10 MILL/JKFURYD23.713.0-18.0 G/DLHCT41.539-52 %IXG7602-407 fLMCH32.526.0-32.0 sfVFGMP73.032.0-35.0 g/dlRDW 12.711.2-14.8 %AYIHDSAR374393-261 THOUS/NSTLNSUQCCUVNL93.545-75 %HLYMPHOCYTES 10.720-45 %LMONOCYTES3.60-13 %EOSINOPHILS0.20-5 %BASOPHILS0.60-2 %IMMATURE GRAN 1.40-2 %ABS NEUTROPHILS6.761.9-8.0 K/uLABS LYMPHOCYTES0.870.9-5.2 K/uLLABS MONOCYTES0.290.1-1.0 K/uLABS EOSINOPHILS0.020.0-0.80 K/uLABS BASOPHILS0.050.0- 0.2 K/uLABS IMMATURE GRAN0.110.00-0.06 K/uLH UNLESS OTHERWISE INDICATED, ALL TESTING PERFORMED AT: [employer] [address] [place] [address] DRYWALLER: SISSY PEARSON M.D. CLIA NUMBER [id number] CAP ACCREDITATION AUID [id number] COMPREHENSIVE METABOLIC PANEL (AMA) Reviewed date:09/18/2024 12:27:51 PM Interpretation: Performing Lab: Notes/Report:MIGRMVM05821-909 mg/fTCDDNFZL728009-374 mmol/LPOTASSIUM4.53.5-5.4 mmol/HTNAYCRLU74104-345 mmol/MBW83302-41 mmol/DTJT504-41 mg/dL CREATININE, BLOOD 0.860.67-1.30 mg/dLeGFR (2020 CKD-EPI)97>59 mL/min/1.67d1KOKIAHF3.88.6- 10.5 mg/Swetha. PROTEIN6.46.0-8.3 g/dLALBUMIN4.33.5-5.2 g/dLGLOBULIN2.11.8-3.8 g/dL A/G RATIO2.01.0-2.5 RATIOALK VOCV5659-289 U/DIQP-HPYG880-83 U/RBFI-AWEG505-55 U/LT. 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)patient entered dataIn the past year, have you [...] 2 nights in a row in a senior living, shelter, long term center, orjuvenile correctional facility?Nopatient entered dataAre you a refugee?Nopatient entered dataWhat country are you from?[place] patient entered dataDo you feel physically and emotionally safe where you currently live?Yespatient entered dataIn the past year, have you been afraid of your partner or ex-partner?Nopatient entered dataPRAPARE Score:3PCMH and UDS DemographicsSocial InfoQuestionAnswerNotesPriatrium health fl[facility] Care Medical Home QuestionsDo you have any [...] get rid of a hangover?Nopatient entered dataCAGE-AID Ninpv7UyfgtjgxsmkcjpZcmicanzSramhsriLawvwm:3-4 cups per day Tobacco Use:Social InfoQuestionAnswerNotesTobacco Use/SmokingTobacco [...] W/U Status Risk Notes Problem Celiac disease (355735143) Celiac disease (K90.0) ActiveconfirmedDx for welder gas automatic referral only.ProblemNausea (020937540)Nausea (R11.0)ActiveconfirmedProblemAtherosclerotic heart disease of [place] coronary artery without angina pectoris (206443545754497)Coronary artery disease with history of coronary revascularization (I25.10)ActiveconfirmedProblemErectile dysfunction (disorder) (662692186)Erectile dysfunction, unspecified erectile dysfunction type (N52.9)ActiveconfirmedDx for lab work only.ProblemArthritis (3921190)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)ActiveconfirmedProblemNeuropathy (858785591) Neuropathy (G62.9)ActiveconfirmedProblemArthritis (2809553)Arthritis (M19.90) ActiveconfirmedProblemInflammatory and toxic neuropathy (383099327)Peripheral polyneuropathy (G62.9)ActiveconfirmedProblemPain in wrist (98457496)Wrist arthralgia (M25.539)Activeconfirmed Vital Signs Heart Rate 78 /min 09/15/2024 Laws, Ser vando 09/15/2024 11:13:58 AM EST > Temperature 97.4 degrees Fahrenheit 09/15/2024 Leena hanks, Randy 09/15/2024 11:13:58 AM EST > [...] Blood pressure systolic 121 mm Hg 09/15/2024 Leena hanks, Randy 09/15/2024 11:13:58 AM EST > Weight 246 lbs 09/15/2024 Laws, Ser vando 09/15/2024 11:13:58 AM EST > BMI 37.4 kg/m2 09/15/2024 Laws, Ser vando 09/15/2024 11:13:58 AM EST > Encounters Encounter Location Date Provider Diagnosis [address] [facility] [facility] [id number] 09/15/2024 Charis Yessenia Nausea R11.0 ; Rayo k stools R19.5 ; Screening for cardiovascular condition Z13.6 ; Obesity, Class II, BMI 35-39.9 E66.812 and BMI 37.0-37.9, adult Z68.37 Main [address] [place], [place] [id number] 09/18/2024 Charis Yessenia [address] [place], [place] [address]lyssa WeilandArthritis M19.90 Assessments Encounter Date Diagnosis (ICD [...] Coverage End Date [employer] [address] [address] [place] [address] [phone] [id number] Aliya Causeyelf - patient is the [id number] 2019 Medical (General) History Medical History History ICD Code GERD (gastroesophageal reflux disease) K 21.9 COPD (chronic obstructive pulmonary dise ase) J44.9 Arthritis Chronic back painM54.9Oxygen ofzokfqkaS78.81Atrial rhqlqyiydles832.31Coronary artery disease with history of coronary spajzzuinckimttrhN26.10Peripheral fetyzrhjvwD69.9Celiac vpwjzunV16.0Surgical History Surgery Date(Month/Year) amputation right hand finger 1977 hernia 1989 skin cancer removal on back 1989 left hip replacement 2005 heart surgery - CABG, ablation 2016 right hip replaced 2017 right shoulder 2017 lasic surgery tubes in right ear
--- OUTSIDE RECORDS SUMMARY | 2025-09-07 13:23 | XMS_ITS | Clinical Summary ---
Author Organization [facility] tem Address [id number] [address] [place] [address] Care Team Providers Care Prop Making Supervisor Name Role Phone Pauly Santacruz PLASTIC MOLDER-APPLICATIONS SUPPORT ENGINEER Primary Care Provider [phone] Allergies Active AllergyReactionsCriticalityNoted GdhvPadwbdcfEpbvzz73/31/2022Isosorbide GiyfjcubjglYbighhox57/14/2022 Medications MedicationSigDispense QuantityRefillsLast FilledStart DateEnd DateStatus omeprazole (PriLOSEC) 40 mg capsule Take 1 capsule (40 mg total) by mouth in the morning.03/19/2022ctive gabapentin (NEURONTIN) 600 mg tablet Take 1 tablet (600 mg total) by mouth 3 (three) times a day.03/30/2022ctive DALIRESP 500 mcg tablet Take 1 tablet (500 mcg total) by mouth in the morning.03/15/2022ctive xpqwwjyeszo-lmtcxtiut-otuoccfc (TRELEGY ELLIPTA) 200-62.5-25 mcg blister with device [...] artery disease involving coronary bypass graft of [place] heart without angina pectoris,Paroxysmal atrial fibrillation (CMS-HCC),Aneurysm [...] artery disease involving coronary bypass graft of [place] heart without angina pectoris,Hx of CABG,Paroxysmal atrial fibrillation (CMS-HCC),Aneurysm of ascending aorta without rupture,History of maze procedure Take 100 mg in the morning and 50 mg at night 270 tablet ctive theophylline (BRYAN-24) 400 MG 24 hr capsule Take 1 capsule (400 mg total) by mouth in the morning.Active atorvastatin (LIPITOR) 40 mg tablet Indications:Coronary artery disease involving coronary bypass graft of [place] heart without angina pectoris,Hx of CABG,Paroxysmal atrial [...] artery disease involving coronary bypass graft of [place] heart without angina pectoris,Paroxysmal atrial fibrillation (CMS-HCC),Aneurysm of ascending aorta without rupture,Hx of CABG,History of maze procedureDISSOLVE 1 TABLET UNDER THE TONGUE NEEDED FOR CHEST PAIN- MAY REPEAT EVERY 5 MINUTES IF NEEDED (MAX 3 DOSES.- IF NO RELIEF CALL 911) 25 tablet 4Active lisinopriL (PRINIVIL,ZESTRIL) 5 mg tablet Indications:Coronary artery disease involving coronary bypass graft of [place] heart without angina pectoris,Hx of CABG,Paroxysmal atrial fibrillation (CMS-HCC),Aneurysm of ascending aorta without rupture,History of maze procedure Take 1 tablet (5 mg total) by mouth in the morning. FINAL REFILL UNTIL LABS COMPLETED. 90 tablet 5Active Active Problems ProblemNoted DateDiagnosed DateMixed dlwuhbmsrdtutw90/17/2024rimary lfwuzujenony41/17/2024Left ventricular pxyrjlnglkj77/17/2024oronary artery disease involving coronary bypass graft of [place] heart without angina pectoris 05/20/2022aroxysmal atrial rmftgssnaymn72/12/2022Thoracic aortic aneurysm without vmypwqi7305/20/2022Hx of CABG05/20/2022History of maze /12/2022 Family History Medical HistoryRelationNameCommentsHeart diseaseFatherBreast cancerMotherCancer MotherRelationNameStatusCommentsFatherDeceasedMaternal [...] Last Filed Vital Signs Vital SignReadingTime TakenCommentsBlood Aqscewvq949/6206/24/2024 1:52 PM EDT Xbswv053106/24/2024 1:52 PM EDTTemperature--Respiratory Rate--Oxygen Hnuesfuweq65% 06/24/2024 1:52 PM EDTInhaled Oxygen Concentration--Eakmyt294.1 kg (245 lb) 06/24/2024 1:52 PM PBSUmapqp719.7 cm (5' 7.99 )06/24/2024 1:52 PM EDTBody Mass Index37.261 1:52 PM EDT Plan of Treatment Health MaintenanceDue DateLast DoneCommentsDepression Uqyienpss73/18/1972Zoster (Shingles) Vaccine (1 of 2)2010Fall Risk Dljttydhx37/18/2025Influenza Damzqep74/02/2023, 05/23/2021dult BMI Jcbrooffh27 Tobacco Scyvjylly19Statin Use: Ydlmcgchcltddz07/30/2026 10/07/2024DTaP,Tdap and Td Vaccines (2 - Td or Tdap)RSV ( or age 60+ yrs) (1 - 1-dose 75+ series)2035 [employer] Not on file Insurance * Guarantor: Nikunj CauseyAccount TypeRelation to PatientDate of PhoneBilling AddressPersonal/RsfqyeRcik1960 [address] [place] [address] Care Teams Team MemberRelationshipSpecialtyStart DateEnd Date Pauly Santacruz APRN-CHAO [address] [place] [address] PCP - GeneralFamily Dlyloxtr18/17/24
--- OUTSIDE RECORDS SUMMARY | 2025-09-07 13:23 | XMS_ITS | Patient Health Record ---
Author Organization [facility] in [place] Address [address] [place] [address] Care Team Providers Care Regulated Program Manager Name Role Phone Andres Zayas Primary Care Provider Hu Bunn Unavailable [phone] Allergies No Known Allergies Results Component Value Reference Range Notes CBC AUTO DIFF Reviewed date:06/14/2025 04:33:29 PM Interpretation: Performing Lab: Notes/Report: [facility] , White Blood Count 8.0 4.0-11.0 10 3/uL Red Blood Count4.074.70-6.10 10 6/tQOfiangolhj50.314.0-18.0 g/xSHfdyzrivfc35.0 42.0-54.0 %Mean Corpuscular Ftmrqu809.780.0-94.0 fLMean Corpuscular Hemoglobin 32.725.9-34.0 pgMean Corpuscular HGB Conc32.429.9-35.2 g/dLRed Cell Distribution Width14.711.0-15.0 %Platelet Jnpfl971272-186 10 3/uLMean Platelet Volume9.09.5- 13.5 fLNeutrophils Percent Auto79.343.0-75.0 %Lymphocytes Percent Auto10.220.5- 60.0 %Monocytes Percent Auto8.81.7-12.0 %Eosinophils Percent Auto0.60.9-7.0 % Basophils Percent Auto0.20.2-2.0 %Immature Granulocytes Pct Auto0.90.0-0.5 % Neutrophils Absolute Auto6.41.4-6.5 10 3/uLLymphocytes Absolute Auto0.81.2-3.8 10 3/uLMonocytes Absolute Auto0.70.3-0.8 10 3/uLEosinophils Absolute Auto0.10.0- 0.7 10 3/uLBasophils Absolute Auto0.00.0-0.1 10 3/uLImmature Granulocytes Abs Auto0.070.00-0.03 10 3/uLPerforming Lab:see noteML - [facility] LB PROF 14(COMP METB) Reviewed date:06/14/2025 04:33:29 PM Interpretation: Performing Lab: Notes/Report: [facility] ,Egquux675512-905 mmol/LPotassium4.23.5-5.1 mmol/WBcbxwhgz56737-128 mmol/LCarbon Rrrqziz13.821.0-32.0 mmol/LAnion Gap10.7Xkdbhvs8816-384 mg/dLBlood Urea Nitrogen 29.07.0-18.0 mg/dLCreatinine0.810.70-1.30 mg/dLEstimated GFR ( Denisse>60 >=60 mL/min/1.73m 2Estimated GFR (Non- Tri>60>=60 mL/min/1.73m 2BUN Creatinine Ratio35.3Iingfkf5.38.5-10.1 mg/dLBilirubin Total0.40.2-1.0 mg/dL Aspartate Amino Gytbazgnckg8107-35 U/LAlanine Szxqpepjehrngvme4593-97 U/L Alkaline Niydthsjapk8160-537 U/LTotal Protein6.76.4-8.2 g/dLAlbumin Level3.63.4- 5.0 g/dLGlobulin3.1Albumin Globulin Ratio1.2Performing Lab:see noteML - [facility] LBXR Chest PA and Lateral (Routine CXR) * Reviewed date:10/26/2024 03:20:38 PM Interpretation: Performing Lab: Notes/Report: PSA SCREENING Reviewed date:01/08/2025 05:36:32 PM Interpretation: Performing Lab: Notes/Report: [facility] ,Prostate Specific Antigen Scrn2.20<=4.00 ng/mLPerforming Lab:see noteML - [facility] LBCalcium, Ionized, Serum Reviewed date:01/23/2025 10:13:17 PM Interpretation: Performing Lab: Notes/Report: [facility] ,Calcium, Ionized, Serum5.34.5-5.6 mg/dL Performed at: [facility] Baggage Smasher: Candido Villegas PhD, Phone: [phone] [address] [place], [place] [id number] Performing Lab:see noteLC - [facility] LBMR head/brain wo con Reviewed date:02/21/2025 01:09:15 PM Interpretation: Performing Lab: Notes/Report: Source Facility: [place] [address] Magnetic Resonance Report Signed Patient: ELISE TABOR MR#: [id number] : 1960 Acct:[id number] Age/Sex: 64 / M ADM Date: 02/21/25 Loc: MRI Attending Dr: Donna Zayas M.D. Ordering Physician: Donna Zayas M.D. Date of Service: 02/21/25 Procedure(s): MR head/brain wo con Accession Number(s): [id number] cc: Donna Zayas M.D. [place] [address] Patient Name: ELISE TABOR MRN: [id number] date: 1960 Sex: M Assigned Patient Location: MRI Current Patient Location: MRI Accession/Order Number: [id number] Exam Date: 02/21/2025 10:55 Report Date: 02/21/2025 [...] Salazar M.D. 02/21/2025 11:03 AM Dictation Location: [place] [address] Electronically authenticated by: [id number] Y Date: 02/21/2025 11:03 Dictated By: Uyen Salazar M.D. Signed By: 02/21/25 1105 DD/ 110 TD/TT: Needle Punch Machine Operator Helper:RIGOBERTO palmer w/ jasmin Reviewed date:03/20/2025 04:01:59 PM Interpretation: Performing Lab: Notes/Report: Source Facility: [place] [address] Cardiology Report Signed Patient: ELISE TABOR MR#: [id number] : 1960 Acct:[id number] Age/Sex: 64 / M ADM Date: 03/17/25 Loc: [place] Attending Dr: Benny Fuentes M.D. Ordering Physician: Benny Fuentes M.D. Date of Service: 03/17/25 Procedure(s): RIGOBERTO palmer w/ con Accession Number(s): [id number] cc: Donna Zayas M.D.; Benny Fuentes M.D. Patient Name: ELISE TABOR MR#: [id number] : 1960 Exam Date: 03/17/2025 Ordering Doctor: DR. BENNY FUENTES M.D. ECHOCARDIOGRAM REPORT PROCEDURE: RIGOBERTO ECHO W/ CON INDICATIONS: Ejection fraction, CABGx5, [...] cm2, 3.62 cm2 AoV Area (VTI): Deceleration [place]: Pressure Half-Time: Peak Velocity(Antegrade Flow): 0.90 m/s Peak Gradient(Antegrade Flow): 3.21 mm[Hg] Mean Velocity(Antegrade Flow): Mean Gradient(Antegrade Flow): Velocity Time Integral: Tricuspid Valve Peak Velocity (Regurgitant Flow): 2.69 m/s Peak Velocity: Pulmonic Valve Mean Gradient: Mean Velocity: Peak Velocity: 1.05 m/s Peak Gradient: 4.38 mm[Hg] Right Atrium Right Atrium Systolic Pressure: Dictated by: Benny Fuentes MD on 03/18/2025 at 18:35 Approved by: Benny Fuentes MD on 03/18/2025 at 18:45 Dictated By: Benny Fuentes M.D. Signed By: 03/18/251845 DD/ 44 TD/TT: Needle Punch Machine Operator Helper:PROF CHESTER Gregg ([facility]) Reviewed date:04/19/2025 08:09:45 PM Interpretation: Performing Lab: Notes/Report: [facility] ,Elcpxd545687-009 mmol/LPotassium5.13.5-5.1 mmol/YMexdyqdy96642-664 mmol/LCarbon Qiccgvs37.621.0-32.0 mmol/LAnion Gap4.4Dmzcvdq38526-178 mg/dLBlood Urea Yscshkan82.07.0-18.0 mg/dLCreatinine0.900.70-1.30 mg/dLEstimated GFR ( Denisse>60>=60 mL/min/1.73m 2Estimated GFR (Non- Tri>60>=60 mL/min/1.73m 2BUN Creatinine Ratio27.9Zihqfkn14.98.5-10.1 mg/dLPerforming Lab:see noteML - [facility] LBLIPID PROFILE Reviewed date:05/27/2025 05:30:12 PM Interpretation: Performing Lab: Notes/Report: [facility] ,Nuzotngofomgp798<=150 mg/tZZklbatqtqcj603<=200 mg/dLHDL Byeubfmrwtk1174-90 mg/dL > or =60 mg/dl - LOW CARDIOVASCULAR RISK <40 mg/dl - HIGH CARDIOVASCULAR RISK LDL Cholesterol Jttummlgee78.0 160-189 mg/dl HIGH <100 mg/dl OPTIMAL >190 mg/dl VERY HIGH 100-129 mg/dl NEAR OR ABOVE OPTIMAL 130-159 mg/dl BORDERLINE HIGH VLDL JTFDWYOQRKC82.0Chol HDL Ratio3.5 4.4 - 7.1 AVERAGE RISK 7.1 - 11.0 MODERATE RISK 3.3 - 4.4 LOW RISK >11.0 HIGH RISK Performing Lab:see noteML - [facility] LBSGOT Reviewed date:05/27/2025 05:30:12 PM Interpretation: Performing Lab: Notes/Report: [facility] ,Aspartate Amino Ufsbupiufue5210-50 U/LPerforming Lab:see note - [facility] LBSGPT Reviewed date:05/27/2025 05:30:12 PM Interpretation: Performing Lab: Notes/Report: [facility] ,Alanine Wmymtswbwrctjrcq7050-52 U/LPerforming Lab:see note - [facility] LBGLYCOHEMOGLOBIN A1C Reviewed date:06/14/2025 04:33:29 PM Interpretation: Performing Lab: Notes/Report: [facility] ,Glycohemoglobin A1C5.54.5-6.2 % ACTION SUGGESTED > 7.0 ADA THERAPEUTIC TARGET < 7.0 ADA RECOMMENDED LIMIT 4.0 - 6.0 Estimated Average Rzfpjsd728Kkrzeoatuq Lab:see note - [facility] LB UA RANDOM W or MICROSCOPIC Reviewed date:06/14/2025 04:33:29 PM Interpretation: Performing Lab: Notes/Report: [facility] ,Color UrineYELLOWYELLOWClarity UrineCLEARCLEARSpecific [place] Urine1.020 1.005-1.025pH Urine6.05.0-9.0Protein UrineNEGATIVENEG/TRACE mg/dLGlucose Urine UA>=1000NEGATIVE mg/dLBilirubin UrineNEGATIVENEGATIVEKetones UrineNEGATIVE NEGATIVE mg/dLBlood UrineNEGATIVENEGATIVENitrite UrineNEGATIVENEGATIVE Urobilinogen Urine0.20.2-1.0 EU/dLLeukocyte Esterase UrineNEGATIVENEGATIVEWBC UrineNONE SEENNONE SEEN #/HPFRBC UrineNONE SEEN0-2 #/HPFBacteria UrineTRACENONE SEEN #/HPFMucus UrineSMALLNONE SEENSquamous Epithelial Cell UrineRARENONE/RARE #/LPFCrystals Seen?None SeenNone Seen #/HPFCast Seen?NONE SEENNONE SEEN #/LPF Performing Lab:see note - [facility] LBVitamin B6, Plasma Reviewed date:06/17/2025 08:45:45 AM Interpretation: Performing Lab: Notes/Report: [facility] ,Vitamin B6, Plasma4.13.4-65.2 ug/L Adequate: >5.1 Marginal: 3.4 - 5.1 determined by [facility]. It has not been cleared or Performed at: [facility] This test was developed and its performance characteristics Baggage Smasher: Davis Blackburn MD, Phone: [phone] approved by the Food and Drug Administration. Deficiency: <3.4 [address] [place], [place] [id number] Performing Lab:[facility] LBANA w/Reflex Reviewed date:06/16/2025 06:06:27 PM Interpretation: Performing Lab: Notes/Report: Js ,HARRIETT DirectNegativeNegative [address] [place], [place] [id number] Baggage Smasher: Candido Villegas PhD, Phone: [phone] Performed at: [facility] Performing Lab:[facility] LBProtein Electro.,S Reviewed date:06/21/2025 02:16:49 PM Interpretation: Performing Lab: Notes/Report: [facility] ,Protein, Total6.36.0-8.5 g/dLAlbumin3.72.9-4.4 g/yYWvipl-6-Kpknqpcb7.20.0-0.4 g/dVQhlnk-4-Ssljywpr3.70.4-1.0 g/dLBeta Globulin0.80.7-1.3 g/dLGamma Globulin0.8 0.4-1.8 g/dLM-SpikeNot ObservedNot Observed g/dLGlobulin, Total2.62.2-3.9 g/dL A/G Ratio1.40.7-1.7Please note:Comment. [address] [place] [phone] Performed at: [facility] mail, or electric shaver mechanic delivery. Baggage Smasher: Candido Villegas PhD, Phone: [phone] Protein electrophoresis scan will follow via computer, Performing Lab:[facility] LBTSH W/ REFLEX FT4 Reviewed date:06/14/2025 04:33:29 PM Interpretation: Performing Lab: Notes/Report: [facility] ,TSH W/ REFLEX FT40.5330.358-3.740 uIU/mLPerforming Lab:see uri - [facility] LBImmunofixation, Serum Reviewed date:06/16/2025 06:06:27 PM Interpretation: Performing Lab: Notes/Report: [facility] ,Immunofixation Result, SerumComment.No monoclonality detected.Immunoglobulin G, Qn, Aaeyd531244-3100 mg/dLImmunoglobulin A, Qn, Serum<561-437 mg/dLResult confirmed on concentration.Immunoglobulin M, Qn, Ceyzj8506-516 mg/dL Baggage Smasher: Candido Villegas PhD, Phone: [phone] [address] [place], [place] [phone] Performed at: [facility] Performing Lab:see uri[facility] LBMethylmalonic Acid, Serum Reviewed date:06/21/2025 02:16:49 PM Interpretation: Performing Lab: Notes/Report: [facility] ,Methylmalonic Acid, Iydxk7317-838 nmol/L determined by [facility]. It has not been cleared or Baggage Smasher: Davis Blackburn MD, Phone: [phone] [address] [place] [phone] Performed at: [facility] approved by the Food and Drug Administration. This test was developed and its performance characteristics Performing Lab:see [facility] LBVitamin B12 Reviewed date:06/15/2025 12:26:54 PM Interpretation: Performing Lab: Notes/Report: [facility] ,Vitamin G44131015-8088 pg/mL [address] [place] [phone] Performed at: [facility] Baggage Smasher: Candido Villegas PhD, Phone: [phone] Performing Lab:see noteLC - [facility] LBUrine Culture - [facility] Reviewed date:06/16/2025 06:06:27 PM Interpretation: Performing Lab: Notes/Report: [facility] ,Urine Culture - FRMCSee Below For Report No Growth 2 Days Urine Culture - [facility] Urine Culture - [facility] No Growth 2 Days Urine Culture - FR [facility] No Growth 2 Days Urine Culture - FR Urine Culture - [id number] [place] [address] No Growth 2 Days Urine Culture - FR Performing Lab:see noteML - [facility] LBXR hip RT 2V w/ pelvis Reviewed date:06/14/2025 04:33:29 PM Interpretation: Performing Lab: Notes/Report: Source Facility: [place] [address] [place] [address] XRay Report Signed Patient: ELISE TABOR MR#: [id number] : 1960 Acct:[id number] Age/Sex: 65 / M ADM Date: 06/14/25 Loc: LAB Attending Dr: Donna Zayas M.D. Ordering Physician: Donna Zayas M.D. Date of Service: 06/14/25 Procedure(s): XR hip RT 2V w/ pelvis Accession Number(s): [id number] cc: Donna Zayas M.D. [place] [id number] Patient Name: ELISE TABOR MRN: [id number] date: 1960 Sex: M Assigned Patient Location: LAB Current Patient Location: LAB Accession/Order Number: [id number] Exam Date: 06/14/2025 10:12 Report Date: 06/14/2025 [...] Salazar M.D. 06/14/2025 11:01 AM Dictation Location: [place] [address] Electronically authenticated by: [id number] Y Date: 06/14/2025 11:01 Dictated By: Uyen Salazar M.D. Signed By: 06/14/25 1103 DD/ 1101 TD/TT: Needle Punch Machine Operator Helper:CBC AUTO DIFF Reviewed date:06/27/2025 12:36:47 PM Interpretation: Performing Lab: Notes/Report: [facility] ,White Blood Count7.54.0-11.0 10 3/uLRed Blood Count4.414.70-6.10 10 6/uL Qtpenmmnpm34.414.0-18.0 g/tQHrkcbazeny40.142.0-54.0 %Mean Corpuscular Volume 100.080.0-94.0 fLMean Corpuscular Deqdnzougl94.725.9-34.0 pgMean Corpuscular HGB Conc32.729.9-35.2 g/dLRed Cell Distribution Width14.411.0-15.0 %Platelet Count 484337-801 10 3/uLMean Platelet Volume9.29.5-13.5 fLNeutrophils Percent Auto77.4 43.0-75.0 %Lymphocytes Percent Auto12.220.5-60.0 %Monocytes Percent Auto8.01.7- 12.0 %Eosinophils Percent Auto0.90.9-7.0 %Basophils Percent Auto0.40.2-2.0 % Immature Granulocytes Pct Auto1.10.0-0.5 %Neutrophils Absolute Auto5.81.4-6.5 10 3/uLLymphocytes Absolute Auto0.91.2-3.8 10 3/uLMonocytes Absolute Auto0.60.3- 0.8 10 3/uLEosinophils Absolute Auto0.10.0-0.7 10 3/uLBasophils Absolute Auto0.0 0.0-0.1 10 3/uLImmature Granulocytes Abs Auto0.080.00-0.03 10 3/uLPerforming Lab:see noteML - [facility] LBCBC AUTO DIFF Reviewed date:04/19/2025 08:09:45 PM Interpretation: Performing Lab: Notes/Report: [facility] ,White Blood Count9.64.0-11.0 10 3/uLRed Blood Count4.414.70-6.10 10 6/uL Euajtgbizy25.414.0-18.0 g/oRTtomylfmke22.342.0-54.0 %Mean Corpuscular Nisxhg51.2 80.0-94.0 fLMean Corpuscular Whjnjavkch76.725.9-34.0 pgMean Corpuscular HGB Conc 33.329.9-35.2 g/dLRed Cell Distribution Width13.511.0-15.0 %Platelet Nkkli359 150-450 10 3/uLMean Platelet Volume9.59.5-13.5 fLNeutrophils Percent Auto86.3 43.0-75.0 %Lymphocytes Percent Auto5.720.5-60.0 %Monocytes Percent Auto6.71.7- 12.0 %Eosinophils Percent Auto0.40.9-7.0 %Basophils Percent Auto0.30.2-2.0 % Immature Granulocytes Pct Auto0.60.0-0.5 %Neutrophils Absolute Auto8.31.4-6.5 10 3/uLLymphocytes Absolute Auto0.61.2-3.8 10 3/uLMonocytes Absolute Auto0.70.3- 0.8 10 3/uLEosinophils Absolute Auto0.00.0-0.7 10 3/uLBasophils Absolute Auto0.0 0.0-0.1 10 3/uLImmature Granulocytes Abs Auto0.060.00-0.03 10 3/uLPerforming Lab:see noteML - [facility] LBNM jose luis perf SPECT rest str Reviewed date:03/20/2025 04:01:59 PM Interpretation: Performing Lab: Notes/Report: Source Facility: [place] [address] [place] [address] Nuclear Medicine Report Signed Patient: ELISE TABOR MR#: [id number] : 1960 Acct:[id number] Age/Sex: 64 / M ADM Date: 03/17/25 Loc: [place] Attending Dr: Benny Fuentes M.D. Ordering Physician: Benny Fuentes M.D. Date of Service: 03/17/25 Procedure(s): NM jose luis perf SPECT rest str Accession Number(s): [id number] cc: Donna Zayas M.D.; Benny Fuentes M.D. Patient Name: ELISE TABOR MR#: [id number] : 1960 Exam Date: 03/17/2025 Ordering Doctor: DR. BENNY FUENTES M.D. RADIOLOGY REPORT PROCEDURE: NM JOSE LUIS [...] the study was pending per attending physician [facility] . For more details please see separate [...] test is reported separately Dictated by: Benny Fuentes MD on 03/18/2025 at 19:18 Approved by: Benny Fuentes MD on 03/18/2025 at 19:22 Dictated By: Benny Fuentes M.D. Signed By: 03/18/251922 DD/ 21 TD/TT: Needle Punch Machine Operator Helper:DAWN Reviewed date:03/17/2025 06:46:32 PM Interpretation: Performing Lab: Notes/Report: [facility] ,Alanine Amlcuvwcqoysmgsx3862-86 U/LPerforming Lab:see noteML - [facility] LBSGOT Reviewed date:03/17/2025 06:46:32 PM Interpretation: Performing Lab: Notes/Report: [facility] ,Aspartate Amino Ocvfxjrjwnz5358-73 U/LPerforming Lab:see note - [facility] LBLIPID PROFILE Reviewed date:03/17/2025 06:46:32 PM Interpretation: Performing Lab: Notes/Report: [facility] ,Ikjhxjatpksab535<=150 mg/mQNtvzuxlpocx229<=200 mg/dLHDL Goobqeqjdmw4470-13 mg/dL <40 mg/dl - HIGH CARDIOVASCULAR RISK > or =60 mg/dl - LOW CARDIOVASCULAR RISK LDL Cholesterol Vwidridvbf21.6 >190 mg/dl VERY HIGH 130-159 mg/dl BORDERLINE HIGH 160-189 mg/dl HIGH 100-129 mg/dl NEAR OR ABOVE OPTIMAL <100 mg/dl OPTIMAL VLDL HETFLEQDIDJ22.4Chol HDL Ratio2.7 4.4 - 7.1 AVERAGE RISK 7.1 - 11.0 MODERATE RISK 3.3 - 4.4 LOW RISK >11.0 HIGH RISK Performing Lab:see noteML - [facility] LBCA echo doppler complete Reviewed date:02/03/2025 09:03:54 PM Interpretation: Performing Lab: Notes/Report: Source Facility: [facility]-[address] [place] [address] [place] [address] Cardiology Report Signed Patient: ELISE TABOR MR#: [id number] : 1960 Acct:[id number] Age/Sex: 64 / M ADM Date: 02/03/25 Loc: CARD Attending Dr: Benny Fuentes M.D. Ordering Physician: Benny Fuentes M.D. Date of Service: 02/03/25 Procedure(s): CA echo doppler complete Accession Number(s): [id number] cc: Donna Zayas M.D.; Benny Fuentes M.D. Patient Name: ELISE TABOR MR#: [id number] : 1960 Exam Date: 02/03/2025 Ordering Doctor: DR. BENNY FUENTES M.D. CORRECTION Corrected on: 02/03/2025; ECHOCARDIOGRAM REPORT [...] CARD Signed By: 02/03/252055 DD/ 54 TD/TT: Needle Punch Machine Operator Helper:PROF [place](COMP METB) Reviewed date:01/19/2025 07:18:24 PM Interpretation: Performing Lab: Notes/Report: [facility] ,Vwgesr017785-137 mmol/LPotassium5.03.5-5.1 mmol/BCburcbyv20768-190 mmol/LCarbon Vwedalq05.721.0-32.0 mmol/LAnion Gap13.3Pvtovvu70796-115 mg/dLBlood Urea Oawznwkf31.07.0-18.0 mg/dLCreatinine1.070.70-1.30 mg/dLEstimated GFR ( Denisse>60>=60 mL/min/1.73m 2Estimated GFR (Non- Tri>60>=60 mL/min/1.73m 2BUN Creatinine Ratio22.4Tuvgawn6.98.5-10.1 mg/dLBilirubin Total0.70.2-1.0 mg/dL Aspartate Amino Jgdovmqeltx7919-65 U/LAlanine Hqftcesuvuucipns7062-53 U/L Alkaline Otpvfldibvg9645-696 U/LTotal Protein6.96.4-8.2 g/dLAlbumin Level3.73.4- 5.0 g/dLGlobulin3.2Albumin Globulin Ratio1.2Performing Lab:see noteML - [facility] LBLIPID PROFILE Reviewed date:01/19/2025 07:18:24 PM Interpretation: Performing Lab: Notes/Report: [facility] ,Bvxzmknqigqtu90<=150 mg/uCSfgfkfxqtvg294<=200 mg/dLHDL Ndhxuihjujz1387-10 mg/dL > or =60 mg/dl - LOW CARDIOVASCULAR RISK <40 mg/dl - HIGH CARDIOVASCULAR RISK LDL Cholesterol Vlilzmqgvo98.0 160-189 mg/dl HIGH 100-129 mg/dl NEAR OR ABOVE OPTIMAL >190 mg/dl VERY HIGH <100 mg/dl OPTIMAL 130-159 mg/dl BORDERLINE HIGH VLDL GZVYHRXHTVQ25.2Chol HDL Ratio2.6 4.4 - 7.1 AVERAGE RISK 7.1 - 11.0 MODERATE RISK 3.3 - 4.4 LOW RISK >11.0 HIGH RISK Performing Lab:see noteML - [facility] LBTroponin I High Sensitivity Reviewed date:01/08/2025 05:36:32 PM Interpretation: Performing Lab: Notes/Report: [facility] ,Troponin I High Ngfyevlvhep52.64.0-76.1 pg/mL UNIVERSAL DEFINITION OF MYOCARDIAL INFARCTION. THE UPPER HAS BEEN CONFIRMED THE DECISION THRESHOLD FOR [place] CUT-OFF POINTS HAVE BEEN ESTABLISHED BASED ON THE FOURTH PERCENTILE OF cTnI DISTRIBUTION IN A REFERENCE POPULATION, USED IN ISOLATION BUT SHOULD BE INTERPRETED IN CONJUNCTION 99TH PERCENTILE = 76.2 PG/ML NOTE: HIGH-SENSITIVITY TROPONIN ASSAY IS NOT INTENDED TO BE DIAGNOSIS. REFERENCE LIMIT (URL) OF TROPONIN, DEFINED THE 99TH WITH OTHER DIAGNOSTIC AND CLINICAL INFORMATION. Performing Lab:see noteML - [facility] LBURIC ACID SERUM Reviewed date:01/08/2025 05:36:32 PM Interpretation: Performing Lab: Notes/Report: [facility] ,Uric Acid3.43.5-7.2 mg/dLPerforming Lab:see noteML - [facility] LB TSH Reviewed date:01/08/2025 05:36:32 PM Interpretation: Performing Lab: Notes/Report: [facility] ,Thyroid Stimulating Hormone0.6300.358-3.740 uIU/mLPerforming Lab:see noteML - [facility] LBT4 Reviewed date:01/08/2025 05:36:32 PM Interpretation: Performing Lab: Notes/Report: [facility] ,T4 Thyroxine6.604.50-12.10 ug/dLPerforming Lab:see noteML - [facility] LBPROF 14(COMP METB) Reviewed date:01/08/2025 05:36:32 PM Interpretation: Performing Lab: Notes/Report: [facility] ,Ptiuya712960-679 mmol/LPotassium4.83.5-5.1 mmol/CXvjbnxfi68435-047 mmol/LCarbon Wonbmcy56.321.0-32.0 mmol/LAnion Gap11.1Clsvcyf63645-911 mg/dLBlood Urea Uuizxvag96.07.0-18.0 mg/dLCreatinine1.040.70-1.30 mg/dLEstimated GFR ( Denisse>60>=60 mL/min/1.73m 2Estimated GFR (Non- Tri>60>=60 mL/min/1.73m 2BUN Creatinine Ratio27.4Vwsxtgv08.48.5-10.1 mg/dLBilirubin Total0.50.2-1.0 mg/dLAspartate Amino Dnmwdxczhbr7162-77 U/LAlanine Zkrxiyfwkvqwwojd3744-70 U/L Alkaline Zaewcdkdjps4699-207 U/LTotal Protein7.46.4-8.2 g/dLAlbumin Level4.03.4- 5.0 g/dLGlobulin3.4Albumin Globulin Ratio1.2Performing Lab:see uri - [facility] LBLIPID PROFILE Reviewed date:01/08/2025 05:36:32 PM Interpretation: Performing Lab: Notes/Report: [facility] ,Oxbmraupxtaag958<=150 mg/zEYmtxabmzbyw773<=200 mg/dLHDL Fahghiqyznm1111-32 mg/dL > or =60 mg/dl - LOW CARDIOVASCULAR RISK <40 mg/dl - HIGH CARDIOVASCULAR RISK LDL Cholesterol Aazbnprrnz441.8 >190 mg/dl VERY HIGH <100 mg/dl OPTIMAL 130-159 mg/dl BORDERLINE HIGH 100-129 mg/dl NEAR OR ABOVE OPTIMAL 160-189 mg/dl HIGH VLDL KZZGEFLVSON98.2Chol HDL Ratio3.1 7.1 - 11.0 MODERATE RISK 3.3 - 4.4 LOW RISK >11.0 HIGH RISK 4.4 - 7.1 AVERAGE RISK Performing Lab:[facility] uri[facility] LBINSULIN Reviewed date:01/08/2025 05:36:32 PM Interpretation: Performing Lab: Notes/Report: [facility] ,Glkdxka93.02.6-24.9 uIU/mL Performed at: - [address] [id number] Baggage Smasher: Candido Villegas PhD, Phone: [phone] Performing Lab:[facility] LBGLYCOHEMOGLOBIN A1C Reviewed date:01/08/2025 05:36:32 PM Interpretation: Performing Lab: Notes/Report: [facility] ,Glycohemoglobin A1C5.54.5-6.2 % ADA THERAPEUTIC TARGET < 7.0 ACTION SUGGESTED > 7.0 ADA RECOMMENDED LIMIT 4.0 - 6.0 Estimated Average Uhufpqn369Cbvxqpmucv Lab:see [facility] LB FREE T3 Reviewed date:01/08/2025 05:36:32 PM Interpretation: Performing Lab: Notes/Report: [facility] ,Free T32.752.18-3.98 pg/mLPerforming Lab:see noteML - [facility] LB CBC AUTO DIFF Reviewed date:01/08/2025 05:36:32 PM Interpretation: Performing Lab: Notes/Report: [facility] ,White Blood Count12.74.0-11.0 10 3/uLRed Blood Count5.464.70-6.10 10 6/uL Hnossmjmsg91.014.0-18.0 g/jETxloddmpex95.242.0-54.0 %Mean Corpuscular Gkiobp57.8 80.0-94.0 fLMean Corpuscular Clyelfpzos33.125.9-34.0 pgMean Corpuscular HGB Conc 33.229.9-35.2 g/dLRed Cell Distribution Width12.811.0-15.0 %Platelet Hegms577 150-450 10 3/uLMean Platelet Volume9.49.5-13.5 fLNeutrophils Percent Auto86.7 43.0-75.0 %Lymphocytes Percent Auto6.220.5-60.0 %Monocytes Percent Auto5.81.7- 12.0 %Eosinophils Percent Auto0.20.9-7.0 %Basophils Percent Auto0.30.2-2.0 % Immature Granulocytes Pct Auto0.80.0-0.5 %Neutrophils Absolute Auto11.01.4-6.5 10 3/uLLymphocytes Absolute Auto0.81.2-3.8 10 3/uLMonocytes Absolute Auto0.70.3- 0.8 10 3/uLEosinophils Absolute Auto0.00.0-0.7 10 3/uLBasophils Absolute Auto0.0 0.0-0.1 10 3/uLImmature Granulocytes Abs Auto0.100.00-0.03 10 3/uLPerforming Lab:see noteML - [facility] LBBLOOD GASES BTY Reviewed date:10/27/2024 03:45:50 PM Interpretation: Performing Lab: Notes/Report: [facility] ,pH ABG7.3417.350-7.450ABG EOU615.335.0-45.0 mmHgRESULTS CALLED TO SOCO MELLO RT AT 2442XT8 ABG72.980.0-100.0 mmHgHCO3 ABG32.022.0-26.0 mmol/LBase Excess ABG 6.3-2.0-2.0 mmol/LOxygen Saturation ABG94.0Allen TestPOSITIVEPOSITIVELiters per Flptyz9Iptmuoec SiteRBPerforming Lab:see noteML - [facility] LBBNP Reviewed date:01/08/2025 05:36:32 PM Interpretation: Performing Lab: Notes/Report: [facility] ,NT Pro B Type Natriuretic Pept68.0<=900.0 pg/mLPerforming Lab:see note - [facility] LBCBC AUTO DIFF Reviewed date:07/18/2025 03:30:38 PM Interpretation: Performing Lab: Notes/Report: [facility] ,White Blood Count9.04.0-11.0 10 3/uLRed Blood Count4.434.70-6.10 10 6/uL Nizxosbqqw50.314.0-18.0 g/tIKafupyxhug86.342.0-54.0 %Mean Corpuscular Volume 100.080.0-94.0 fLMean Corpuscular Xtjarcjdup57.325.9-34.0 pgMean Corpuscular HGB Conc32.329.9-35.2 g/dLRed Cell Distribution Width14.111.0-15.0 %Platelet Count 810088-120 10 3/uLMean Platelet Volume9.39.5-13.5 fLPerforming Lab:see noteML - [facility] LBCA segmental UE or LE CARLOS Reviewed date:07/05/2025 07:33:48 PM Interpretation: Performing Lab: Notes/Report: Source Facility: [facility]-[address] [place] [address] [place] [address] Cardiology Report Signed Patient: ELISE TABOR MR#: [id number] : 1960 Acct:[id number] Age/Sex: 65 / M ADM Date: 07/05/25 Loc: CARD Attending Dr: LAVINIA RODRIGUEZ Ordering Physician: LAVINIA RODRIGUEZ Date of Service: 07/05/25 Procedure(s): CA segmental UE or LE CARLOS Accession Number(s): [id number] cc: LAVINIA RODRIGUEZ ; Donna Zayas M.D. 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: Reason For Referral No Information Medications Medication SIG (Take, Route, Frequency, Duration) Notes Start Date End Date Status Protonix 40 MG 1 tablet Orally Once a day; Dura tion: 30 days 5ActiveRoflumilast 500 MCG1 tablet Orally QD; Duration: 90 daysActive Sodium Chloride 0.9 %3mL Inhalation BID; Duration: 90 days4Active Theophylline ER 300 MG1 tablet Orally every 12 hrs; Duration: 30 days05/26 ActiveAcetaminophen 500 MG1 capsule as needed Orally every 6 hrsActiveVentolin HFA 108 (90 Base) MCG/ACT2 puffs as needed for SOB Inhalation Q4H; Duration: 90 ActiveAspirin 81 81 MG1 tablet Orally Once a dayActiveVitamin B 12 500 MCG1 tablet Orally Once a dayActiveAtorvastatin Calcium 80 MG1 tablet Orally Once a dayActiveEliquis 5 MGas directed Orally twice dailyActivetiZANidine HCl 4 MG2 tabs Orally qhs; Duration: 01/07/2025tiveTopiramate 50 MG1 tablet Orally Once a day; Duration: 02/21/2025tivePotassium Chloride ER 10 MEQ 1 capsule with food Orally Twice a day; Duration: 09/02/2025tive traMADol HCl 50 MG 1 tablet as needed Orally tid; Duration: 7 days S76.319A 05/23/2025tiveTrelegy Ellipta 200-62.5-25 MCG/ACT 1 puff Inhalation QD; Duration: 90 days Rinse after use; Dispense #3 inhalers 08/17/2024ctiveVitamin D3 50 MCG (2000 UT)1 capsule Orally Once a dayActive Farxiga 10 MGOral; Duration: 34 DaysActiveZinc 50 MG1 tablet Orally Once a day ActiveImitrex 100 MG1 tablet at least 2 hours between doses as needed Orally Twice a day; Duration: 01/07/2025tiveIpratropium-Albuterol 0.5-2.5 (3) MG/3ML3mL Inhalation QID; Duration: ActiveVitamin C 1000 MG1 tablet Orally Once a dayActiveNitroglycerin 0.4 MG1 tablet under the tongue and allow to dissolve as needed. Take every 5 minutes up to 3 times if chest pain persists Sublingual Three times a dayActiveOzempic (0.25 or 0.5 MG/DOSE) 2 MG/3MLInject 0.25ml Subcutaneous once weekly; Duration: 28 ActivePregabalin 150 mgTAKE 1 CAPSULE BY MOUTH THREE TIMES DAILY; Duration: tiveLisinopril 5 MG1 tablet Orally Once a dayActiveMeloxicam 15 MG1 tablet Orally Once a day; Duration: 06/20/2025tiveLasix 40 MG1 tablet Orally Once a day; Duration: 19/2025ActiveMetoprolol Succinate ER 50 MG2 tablets am and 1pm OrallyActiveMucinex 600 MG1-2 tablets as needed for congestion Orally BID; Duration: 90 daysActive Immunizations Vaccine Route Administration Date Status Comme nts Flu, Flucelvax (4929-0125) ( 01565) 6 mos and older, single-dose syringe Unknown 08/13/2023 Administered GukePdplupn47/06/2023Administered Social History Tobacco Use: Social History Observation Description Date Details (start date - stop date) Former Smoker NA - NA Tobacco Control (Standard) Question Answer Notes Tobacco use: Former smoker How long has it been since you last smoked?Greater than 10 yearsAdditional Findings: Tobacco zlx-mfhnUi-jbcl heavy cigarette smoker (40+/day)AUDIT-C (Standard) Question Answer Notes Did you have a drink containing alcohol in the p ast year? No Zfuelq5JbenscvyroxawoIesohdkv Problems Problem Type SNOMED Code ICD Code Onset Dates Problem Status W/U Status Risk Notes Problem Anemia (218954993) Anemia, unspecified (D 64.9) ActiveconfirmedProblemObesity (056501460)Obesity, unspecified (E66.9)Active confirmedProblemCentrilobular emphysema (57583010)Centrilobular emphysema (J43.2)ActiveconfirmedPrior treatment: Trelegy 200 > Trelegy 100 > Breztri > Spiriva. Not a candidate for EBV orlung reduction surgery.ProblemChronic respiratory failure (04779630)Chronic respiratory failure with hypoxia (J96.11) ActiveconfirmedProblemChronic respiratory failure (44646025)Chronic respiratory failure with hypercapnia (J96.12)ActiveconfirmedProblemCeliac disease (063631167)Celiac disease (K90.0)ActiveconfirmedProblemLong-term current use of inhaled steroid (073209318)clinical studies specialist (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 of inhaled steroids (Z79.51) ActiveconfirmedProblemLong-term current use of systemic steroid (264089543669911)detention (current) use of systemic steroids (Z79.52)Active confirmedProblemHypertension (06825407)Hypertension (I10)ActiveconfirmedProblem Lumbosacral radiculopathy (1876026)Lumbosacral radiculopathy (M54.17)Active confirmedProblemGastroesophageal reflux disease (034657172)GERD (gastroesophageal reflux disease) (K21.9)ActiveconfirmedProblemEdema (69223950) Edema (R60.9)ActiveconfirmedProblemObstructive sleep apnea syndrome (36000844) ISABEL (obstructive sleep apnea) (G47.33)ActiveconfirmedProblemMigraine (27591011) Migraine (G43.909)ActiveconfirmedProblemAtrial fibrillation (30273720)Atrial fibrillation, unspecified (I48.91)ActiveconfirmedProblemIgA deficiency (53411007)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)ActiveconfirmedProblemThrombocytopenia (939180331)Thrombocytopenia (D69.6)ActiveconfirmedProblemHistory of atrial fibrillation (711890939)History of atrial fibrillation (Z86.79)Activeconfirmed ProblemCoronary arteriosclerosis (20000229)Coronary arteriosclerosis (I25.10) 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)ActiveconfirmedProblemEx-tobacco user (finding) (254002313)History of tobacco abuse (Z87.891)Obyzvtapudpcydi4mju x 35 years (70 pack-years), quit 2013ProblemGastroesophageal reflux disease (620435564)Gastroesophageal reflux disease (K21.9)ActiveconfirmedProblemHistory of respiratory disease (585561042)History of asbestosis (Z87.09)Activeconfirmed ProblemHamstring tear (S76.319A)ActiveconfirmedProblemArthralgia of the pelvic region and thigh (987386462)Hip pain, acute, right (M25.551)Activeconfirmed ProblemNondependent cannabis abuse (489240712)Marijuana use (F12.90)Active confirmedProblemThoracic aortic aneurysm without rupture (disorder) (24195463) Thoracic aneurysm without mention of rupture (I71.20)ActiveconfirmedProblem Degeneration of lumbar intervertebral disc (38067768)Lumbar degenerative disc disease (M51.369)Activeconfirmed Vital Signs Heart Rate 71 /min 03/23/2025 Iumiratthvf43.0 degrees Orovwdioyr59/16/2025Respiratory Rate20 /min03/23/2025 Blood pressure kjmfcszyc90 mm Hg08/26/20254606Ssftbdru33 %03/23/20251698Lpbdth17 in 08/26/2025lood pressure xzzlziaf741 mm Hg08/26/20255309Vwsavc782 lbs110/27/2024MI 37.3 kg/m208/26/2025 Procedures Procedure Date Ordered Date Performed Result Body Sit e Split Night Sleep Study 10/27/2024 11/10/2024 N/A ABG0N/A Encounters Encounter Location Date Provider Diagnosis [address] [address] 01/07/2025 Andres Hoy Well adult Z00.00 ; Coronary arteriosclerosis I25.10 ; Atrial fibrillation, unspecified I48.91 ; History of atrial fibrillation Z86.79 ; Granulomatous lung disease J84.10 ; Anemia, unspecified D64.9 ; Hypersomnia, unspecified G47.10 and GERD (gastroesophageal reflux disease) K21.[address] [address] 02/11/2025 Andres Hoy Centrilobular emphys larissa J43.2 ; Obesity, unspecified E66.9 ; Coronary arteriosclerosis I25.10 ; History of atrial fibrillation Z86.79 ; Chronic respiratory failure with hypercapnia J96.12 and Migraine G43.[address] [address] 05/13/2025 Andres Hoy Hamstring tear S76.3 19A and Hypertension I10 [address] [address] 05/27/2025 Andres Hoy Hypertension I10 and Hamstring tear S76.319A [address] [address] 06/14/2025 Andres Hoy Hip pain, acute, rig ht M25.551 and Chronic respiratory failure with hypercapnia J96.12 Pulmonary [facility] [address] [place] [address] 03/23/2025 Hu Bunn Centrilobular emphys larissa J43.2 ; Chronic respiratory failure with hypoxia J96.11 ; Chronic respiratory failure with hypercapnia J96.12 ; ISABEL (obstructive sleep apnea) G47.33 ; History of tobacco abuse Z87.891 ; History of asbestosis Z87.09 ; detention (current) use of systemic steroids Z79.52 ; clinical studies specialist (current) use of inhaled steroids Z79.51 and Obesity, unspecified E66.9 [facility] [place] [address] [place] [address] 01/19/2025 Hubettye Bunn Centrilobular emphys larissa J43.2 ; ISABEL (obstructive sleep apnea) G47.33 ; Chronic respiratory failure with hypercapnia J96.12 ; Chronic respiratory failure with hypoxia J96.11 ; History of tobacco abuse Z87.891 ; History of asbestosis Z87.09 ; detention (current) use of systemic steroids Z79.52 ; clinical studies specialist (current) use of inhaled steroids Z79.51 and Obesity, unspecified E66.9 [facility] [place] [address] [place] [address] 10/27/2024 Hubettye Bunn Centrilobular emphys larissa J43.2 ; Hypersomnia, unspecified G47.10 ; Chronic respiratory failure with hypercapnia J96.12 ; Chronic respiratory failure with hypoxia J96.11 ; Metabolic alkalosis E87.3 ; History of tobacco abuse Z87.891 ; History of asbestosis Z87.09 ; Coronary arteriosclerosis I25.10 ; Atrial fibrillation, unspecified I48.91 ; clinical studies specialist (current) use of systemic steroids Z79.52 ; detention (current) use of inhaled steroids Z79.51 and Obesity, unspecified E66.9 [facility] [address] [place] [address] 08/26/2025 Andres Hoy Edema R60.9 [facility] [place] [address] [place] [address] 09/13/2024 Hu Samsa Centrilobular emphys larissa J43.2 [facility] [place] [address] [facility] [place] [address] 10/05/2024 Hu [facility] [address] [facility] [place] [address]/ Hu BunnAcute cough R05.1BWe[facility] [facility] [place] [place] [address]/11/2024Doug HoyAbnormal blood chemistry level R79.9 [facility] [facility] [place] [place] [address] 01/23/2025[facility] [facility] [place] [place] [address]/Doug HoyWell adult Z00.00[facility] [address] [facility] [place] [place] [address]/Doug [facility] [facility] [place] [place] [address]/08/2025Doug Hoy Chronic respiratory failure with hypercapnia J96.12[facility] [facility] [place] [place] [address]/Doug HoyPulmonary Medicine [address] [facility] [place] [address]/06/2025[facility] [facility] [place] [place] [address] 03/20/2025Doug [facility] [facility] [place] [address]/Doug [facility] [facility] [place] [address]/04/2025Doug [facility] [facility] [place] [place] [address]/Doug [facility] [facility] [place] [place] [address]/Doug Hoy Centrilobular emphysema J43.2BDavid V[address] [facility] [place] [address]/Doug [address]Thomas [address] [facility] [place] [address]/Doug HoyCentrilobular emphysema J43.2 and Encounter for long-term (current) drug use Z79.899BuMichael [address] [facility] [place] [address]/03/2025Doug Hoy Thrombocytopenia D69.6BDavid [address] [facility] [place] [address]/05/2025Doug HoThomas [address] [facility] [place] [address]/Doug [address] [address]/Doug Hoy Hypertension I10 and Thrombocytopenia D69.6BDavid [address] [facility] [place] [address]/Doug HoyElectronic Health Makabkv[address] [place], [place] [address]/06/2025Doug [place] [place] [address]/Doug Hoy [address] [place] [address] 09/02/2025Doug HoyEdema R60.9B[address] [place] [address]/04/2025Doug HoyHypertension I10 Assessments Encounter Date Diagnosis (ICD [...] for Ohtuvayre, but there was a $500 mzl-px-gwysms cost monthly. He apparently did not feel [...] the 10mg/day dose. I reviewed labs that [facility] cardiology ordered from 10/01/2024. I note that [...] to use a PAP/NIV if indicated. Unfortunately, [facility] has been very difficult to reach [...] Screen patiented for obstructive sleep apnea. His Towson was 13 and STOP-BANG was 8. He [...] agreement to proceed with PAP therapy if indicated.Rsdo-ah-ocvm was performed today regarding need for CPAP [...] 01/19/2025OSA (obstructive sleep apnea) (ICD-10 - G47.33) Sapb-dp-oipx encounter performed with the patient to document [...] @ bedtime and with any naps. -This qrjs-kz-apxd visit comes with my authorization that the [...] respiratory failure with hypoxia (ICD-10 - J96.11) Wfyi-sk-kbbj encounter performed with the patient to document [...] (ICD-10 - I10)holding lisinopril and repat bp tfqeer9105/16/2025Hypertension (ICD-10 - I10) 05/27/2025Hypertension (ICD-10 - I10)Hypotension - thingk over jdjfcz8505/27/2025 Hamstring tear (ICD-10 - S76.319A)06/14/2025Hip pain, acute, right (ICD-10 - M25.551)06/14/2025hronic respiratory failure with hypercapnia (ICD-10 - J96.12) 08/26/2025Edema (ICD-10 - R60.9)09/13/2024entrilobular emphysema (ICD-10 - J43.2)Prior treatment: Trelegy 200 > Trelegy 100 > Breztri > Spiriva. Not a candidate for EBV orlung reduction surgery.5Acute cough (ICD-10 - R05.1)01/08/2025bnormal blood chemistry level (ICD-10 - R79.9)01/24/2025Well adult (ICD-10 - Z00.00)02/17/2025hronic respiratory failure with hypercapnia (ICD-10 - J96.12)5Centrilobular emphysema (ICD-10 - J43.2)05/26/2025 Centrilobular emphysema (ICD-10 - J43.2)02/11/2025entrilobular emphysema (ICD- 10 - J43.2)02/11/2025Obesity, unspecified (ICD-10 - E66.9)06/14/2025 Thrombocytopenia (ICD-10 - D69.6)06/27/2025Hypertension (ICD-10 - I10)06/27/2025 Thrombocytopenia (ICD-10 - D69.6)09/02/2025Edema (ICD-10 - R60.9)02/11/2025 Coronary arteriosclerosis (ICD-10 - I25.10)05/26/2025Encounter for long-term (current) drug use (ICD-10 - Z79.899)5Chronic respiratory failure with hypercapnia (ICD-10 - J96.12) [...] respiratory failure with hypoxia (ICD-10 - J96.11) Wsgx-yy-pdym encounter performed with the patient to document [...] respiratory failure with hypoxia (ICD-10 - J96.11) Rgtt-xr-sxhg encounter performed with the patient to document [...] (ICD-10 - G47.33) Previously evaluated. Continue PAP. Jguz-yd-pecu encounter performed with the patient to document continued need for PAP therapy. -Current DME: [employer] -Split night 11/10/2024: AHI 61, Titration 23/08 with 5L/min O2 bleed-in -Compliance was reviewed from 12/20/2024 - 01/18/2025 -Total days used: 30 (100%) -Total of all days >4 hours of use: 2930 (97%) -Current model, mode, & set pressure: [...] @ bedtime and with any naps. -This nzjq-nc-ptkc visit comes with my authorization that the [...] evidence of asbestos on prior CT chest. 5Anemia, unspecified (ICD-10 - D64.9)03/23/2025History of asbestosis (ICD-10 - Z87.09) Exposure to asbestos from brake pads. No evidence of asbestos on prior CT chest. 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 01/07/2025Hypersomnia, unspecified (ICD-10 - G47.10)01/19/2025Long term (current) use of systemic steroids (ICD-10 - Z79.52) Discussed adverse effects of chcf systemic steroids including, but not limited to: increased risk of cataracts, elevated blood sugars/worsening of underlying diabetes mellitus, impaired wound healing, gastrointestinal ulcers, osteoporosis. 10/27/2024History of asbestosis (ICD-10 - Z87.09) Exposure to asbestos from brake pads. No evidence of asbestos on prior CT chest. 5Coronary arteriosclerosis (ICD-10 - I25.10) Patient changed to [facility] cardiology and voiced he is very happy with the switch. 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 His Towson was 13 and STOP-BANG was 8. He [...] agreement to proceed with PAP therapy if indicated.Mgcw-pn-pklp was performed today regarding need for CPAP or BiPAP if he qualifies. Patient changed to [facility] cardiology and voiced he is very happy with the switch. HCO3- 39.5, Suspected chronic hypercapnic respiratory failure, which I was correct based on ABG drawn today. 03/23/2025Other Screen patiented for obstructive sleep apnea. His Towson was 13 and STOP-BANG was 8. He [...] agreement to proceed with PAP therapy if indicated.Bdwd-vw-rbns was performed today regarding need for CPAP or BiPAP if he qualifies. Patient changed to [facility] cardiology and voiced he is very happy with the switch. HCO3- 39.5, Suspected chronic hypercapnic respiratory failure, which I was correct based on ABG drawn today. Plan Of Treatment Pending Test Test Name Order Date HEMOGLOBIN A1C (GLYCO) 01/07/2025 INSULIN, TOTAL 01/07/2025 LIPID PANEL (CHOL/TRIG/HDL/LDL) 01/08/20 25 URIC ACID 01/07/2025 Urinalysis Microscopic 06/14/2025 COMPREHENSIVE METABOLIC PROFILE WITH GFR 09/02/2025 CBC W/AUTO DIFF 06/27/2025 High Sensitivity Troponin 01/07/2025 BNP 09/02/2025 CBC AUTO DIFF 06/14/2025 CULTURE URINE 06/14/2025 [...] Insured Coverage Start Date Coverage End Date [facility] [address] [address] [place] [address] [phone] [id number] Aliya Taborelf - patient is the insured [...] cath 05/02 Hernia Repair cataract removalAmputation-Fingerright hip replacementcoronary artery bypass hyoie1243lxahcnvo replacement-Rightleft hip replacementHospitalization History Reason Date(Month/Year) [facility] 05/02/2023
--- OUTSIDE RECORDS SUMMARY | 2025-09-07 13:23 | XMS_ITS | Clinical Summary ---
Author Organization [facility] Address [address], [address] [place] [address] Care Team Providers Care Account Classification Clerk Name Role Phone Mario Zayas MD Primary Care Provider [phone] Allergies No known active allergies Medications MedicationSigDispense [...] tablet Take 1 tablet by mouth every ygsfznp44/05/2025Active Ferrous Sulfate 90 (18 Fe) MG TABS [...] under the tongue every 5 minutes as vitfdu074Active Potassium Gluconate 595 (99 K) MG TABS Take 1 tablet by mouth dailyActive pregabalin (LYRICA) 150 MG capsule Take 1 capsule by mouth in the morning, at noon, and at bedtime.12/20/2024tive Saw Clinton 450 MG CAPS Take 1 capsule by [...] mouth 2 times daily 180 tablet 5Active zneztlrvzbq-qdpyqvyxz-fwpdfk (TRELEGY ELLIPTA) 200-62.5-25 MCG/ACT AEPB inhaler Indications:Centrilobular [...] oral candidiasis and other potential adverse effects. 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 systemic tqujhytk71/05/2025 Assessment & Plan (07/13/2025 9:31 AM EST): Discussed with the patient adverse effects of middle or intermediate school principal systemic steroids including, but not limited to: [...] 1 tablet by mouth 2 times daily fyventxwyfj-bmerdjqgc-xdtfbv (TRELEGY ELLIPTA) 200-62.5-25 MCG/ACT AEPB inhaler; Inhale 1 puff intothe lungs daily sodium chloride nebulizer 0.9 % solution; Take 3 mLs by nebulization 2 times daily ISABEL (obstructive sleep apnea) Assessment & Plan (07/13/2025 10:56 AM EST): A ntgf-sj-xaua encounter was performed with the patient today [...] VAuto -Current mode & pressures: BiPAP @ 16/89jeM9I -Residual AHI: 0.5 -Median air leak: 6.1L/min [...] & Plan (07/13/2025 10:56 AM EST): A nbvd-bo-wjwu encounter was performed with the patient today [...] CT chest evidence of asbestos. 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; care home (current) use of inhaled steroidsfrom Last 3 Months Family History Medical HistoryRelationNameCommentsHeart DiseaseFatherBreast CancerMother HypertensionMotherHypertensionSisterRelationNameStatusCommentsFatherMotherSister Social History Tobacco UseTypesPacks/DayYears UsedDateSmoking Tobacco: OhfljgIcxauaoods8450975 - 2012Smokeless Tobacco: Never Tobacco Cessation:Counseling Given: Not Answered Alcohol UseStandard Drinks/WeekCommentsNot Currently0 (1 standard drink = 0.6 oz pure alcohol)Sex and Gender InformationValueDate RecordedSex Assigned at Male07/13/2025 7:55 AM ESTLegal VqxBctc05/07/2025 3:18 PM EDTGender IdentityNot on fileSexual OrientationNot on file Last Filed Vital Signs Vital SignReadingTime TakenCommentsBlood Metjwdko613/7407/13/2025 8:06 AM EST Gbwfo204807/13/2025 8:06 AM HCGUgymtcbmsjk06.1 ??C (97 ??F)07/13/2025 8:06 AM EST Respiratory Lyej274009/12/2024 8:06 AM ESTOxygen Lqvwbaacbg55%07/13/2025 8:06 AM EST5L V3Qkzexau Oxygen Concentration--Nlmagx800.4 kg (247 lb 12.8 oz)07/13/2025 8:06 AM CMHKegrfs059.7 cm (5' 8 )07/13/2025 8:06 AM ESTBody Mass Index37.68 07/13/2025 8:06 AM EST Plan of Treatment DateTypeDepartmentCare Team (Latest Contact Info)Wntdoxqxtnf69/03/2026 10:00 AM ESTOffice Visit [facility] [place] [address] Hu Bunn DO [address] [facility] [facility] [address] [place] [address] 3 MO F/U for COPD, respiratory failure.Health MaintenanceDue DateLast Done TehmrmxeKgbtrw41/18/1970Depression Yfuvvr4003/25/1972HIV ghhzcx9903/25/1975Hepatitis C hlqylg9503/25/1978Pneumococcal 50+ years Vaccine (1 of 2 - PCV)1979 Diabetes wvdibe0103/25/19956091Lfibwckvsvp42/18/2005Colorectal Cancer Kxomck6303/25/2005 FIT/FOBT: Average risk2005Fecal-DNA (Cologuard): Average risk2005 Sigmoidoscopy/CT gedzaikyzgus61/18/2005Shingles vaccine (1 of 2)2010 Respiratory Syncytial Virus (RSV) or age 60 yrs+ (1 - Risk 60-74 years 1-dose series)2020Lung Cancer Screening &/or Zzxiktxrrc18/19/2023 12/25/2021AA ieybsa5003/25/2025Flu vaccine (#1)/02/2023, 05/23/2021 COVID-19 Vaccine (3 - [...] Team MemberRelationshipSpecialtyStart DateEnd Mario Zayas MD [address] [place] [id number] PCP - GeneralFamily Egivyuxd93/7/25
--- OUTSIDE RECORDS SUMMARY | 2025-09-07 13:23 | XMS_ITS | Clinical Summary ---
Author Organization [facility] Address [address] 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 Name Role Phone Unavailable Primary Care Provider Unavailabl e Social History Tobacco UseTypesPacks/DayYears UsedDateSmoking Tobacco: Never AssessedSex and Gender InformationValueDate RecordedSex Assigned at BirthNot on fileLegal Sex Male08/03/2022 11:25 AM ESTGender IdentityNot on fileSexual OrientationNot on file Last Filed Vital Signs Vital SignReadingTime TakenCommentsBlood Kspreszy352/8609 2:58 PM EDT Tosie9768 2:58 PM PPGCiybwrvgebz97.8 ??C (98.2 ??F)05/29/2022 2:58 PM EDTRespiratory Uqxs1995 2:58 PM EDTOxygen Zwarbnwzas59%05/29/2022 2:58 PM EDTInhaled Oxygen Concentration--Pkmola868 kg (239 lb 7 oz)05/29/2022 2:58 PM YFQYsiadx756 cm (5' 7.32 )05/29/2022 2:58 PM EDTBody Mass Index37.1509 2:58 PM EDT Plan of Treatment Not on file
--- NOTE | 2025-09-07 13:37 | PM.CN ---
Consult Note: HPI Data of Consult Patient: known to practice within the last 3 years Consult date: 09/07/25 Requesting Physician: Riddhi Elizabeth NP Primary Care Provider: Mario Zayas MD Consult Narrative Reason for consult: neck pain, spine pain Narrative: Nikunj Borrego a 65 year old male with chronic neck pain and daily headaches greater than 10 years presents for evaluation. Pt has chronic neck pain secondary to facet arthropathy, ddd, and cervical stenosis as well as chronic low back and BLE pain. notes pain 03/17 pt does wear home o2, on 3L NC. Currently on lyrica 150mg tid, prednisone, Topamax, tylenol, mobic with minimal benefit per pt. failed duloxetine 20mg daily due to severe drowsiness and headaches. since last visit we started tramadol 50mg BID PRN, he found benefit to taking 50-100mg without side effects. cc:: CC: Riddhi Elizabeth NP Review of Systems ROS Musculoskeletal Reports: back pain, neck pain and joint pain PFSH PFSH Medical History Anemia ?D64.9 - Anemia, unspecified (ICD-10) High cholesterol ?E78.00 - Pure hypercholesterolemia, unspecified (ICD-10) Afib ?I48.91 - Unspecified atrial fibrillation (ICD-10) Aneurysm of ascending aorta without rupture ?I71.21 - Aneurysm of the ascending aorta, without rupture (ICD-10) Ischemic cardiomyopathy ?I25.5 - Ischemic cardiomyopathy (ICD-10) Celiac disease ?K90.0 - Celiac disease (ICD-10) Hypertension ?I10 - Essential (primary) hypertension (ICD-10) Amputation finger ?S68.119A - Complete traumatic metacarpophalangeal amputation of unspecified finger, initial encounter (ICD-10) Personal history of smoking ?Z87.891 - Personal history of nicotine dependence (ICD-10) Obesity ?E66.9 - Obesity, unspecified (ICD-10) Heartburn ?R12 - Heartburn (ICD-10) Osteoarthritis ?M19.90 - Unspecified osteoarthritis, unspecified site (ICD-10) Degenerative disc disease CAD (coronary artery disease) ?I25.10 - Atherosclerotic heart disease of [place] coronary artery without angina pectoris (ICD-10) COPD (chronic obstructive pulmonary disease) ?J44.9 - Chronic obstructive pulmonary disease, unspecified (ICD-10) Sleep apnea ?G47.30 - Sleep apnea, unspecified (ICD-10) Angina of effort ?I20.89 - Other forms of angina pectoris (ICD-10) Surgical History H/O repair of rotator cuff ?Z98.890 - Other specified postprocedural states (ICD-10) H/O shoulder surgery ?Z98.890 - Other specified postprocedural states (ICD-10) History of right hip replacement ?Z96.641 - Presence of right artificial hip joint (ICD-10) History of left hip replacement ?Z96.642 - Presence of left artificial hip joint (ICD-10) Social History Smoking status: Former smoker Meds Home Medications and Allergies Home Medications ?Medication ?Instructions ?Recorded ?Confirmed ?Type ascorbic acid (vitamin C) 500 mg 1 g PO DAILY 04/01/23 07/11/25 History tablet (C-500) aspirin 81 mg tablet,delayed 81 mg PO DAILY 04/01/23 07/11/25 History release atorvastatin 40 mg tablet 80 mg PO DAILY 04/01/23 07/11/25 History cholecalciferol (vitamin D3) 1 tab PO DAILY 04/01/23 07/11/25 History ferrous sulfate 325 mg (65 mg 325 mg PO DAILY 04/01/23 07/11/25 History iron) tablet (Feosol) fluticasone fur. 200 mcg-umeclid 1 inh inhalation Q24H 04/01/23 07/11/25 History 62.5 mcg-vilant 25 mcg inhalat.powder (Trelegy Ellipta) ipratropium 0.5 mg-albuterol 3 mg 3 ml inhalation Q8H PRN shortness 04/01/23 07/11/25 History (2.5 mg base)/3 mL nebulization of breath soln lisinopril 5 mg tablet 5 mg PO DAILY 04/01/23 07/11/25 History metoprolol succinate 50 mg 100 mg PO DAILY 04/01/23 07/11/25 History tablet,extended release 24 hr nitroglycerin 0.4 mg sublingual 0.4 mg sublingual Q5M PRN chest 04/01/23 07/11/25 History tablet pain roflumilast 500 mcg tablet 500 mcg PO DAILY 04/01/23 08/14/23 History theophylline 400 mg 300 mg PO Q12H 04/01/23 07/11/25 History tablet,extended release 24 hr apixaban 5 mg tablet (Eliquis) 5 mg PO Q12H 08/14/23 07/11/25 History meloxicam 15 mg tablet 15 mg PO DAILY 08/14/23 07/11/25 History azithromycin 250 mg tablet See Rx Instructions PO .COMPLEX #6 10/27/23 07/11/25 Rx (Zithromax Z-Dl) tabs dapagliflozin propanediol 10 mg 10 mg PO DAILY 06/30/25 07/11/25 History tablet (Farxiga) prednisone 10 mg tablet 10 mg PO DAILY 06/30/25 07/11/25 History pregabalin 150 mg capsule (Lyrica) 150 mg PO TID 06/30/25 07/11/25 History sodium chloride 0.9 % aerosol 3 ml inhalation Q12H 06/30/25 06/30/25 History inhaler topiramate 50 mg tablet (Topamax) 50 mg PO DAILY 06/30/25 07/11/25 History naloxone 4 mg/actuation nasal 4 mg intranasal Q3M PRN opioid 08/25/25 Rx spray (Narcan) overdose #2 ea tramadol 50 mg tablet 50 mg PO BID PRN pain #14 tabs 08/25/25 Rx Allergies Allergy/AdvReac Type Severity Reaction Status Date / Time No Known Drug Allergies Allergy Verified 08/14/23 01:41 Exam Constitutional Documenting provider has reviewed patient's vital signs: yes Common normals: no apparent distress, oriented x3 and alert General appearance: cooperative [facility] Common normals: normocephalic, hearing grossly normal bilaterally and moist oral mucous membranes Head and scalp: normocephalic Eye Common normals: PERRL Pupil: PERRL Neck & C-Spine Common normals: full ROM General: normal visual inspection Cervical spine: cervical ROM normal and normal cervical lordosis; cervical ROM not abnormal, no pain with cervical ROM, no cervical spine tenderness and no paracervical muscle tenderness Other: no obvious pain on exam, no pain with facet loading or ROM strength 5/5 in BUE sensation intact BUE pt reporting pain from head down whole spine negative lehrmites Chest Common normals: inspection of chest normal Respiratory Common normals: normal respiratory effort, no retractions and no use of accessory muscles Other: on o2 Back & Pelvis Lumbar spine/lower back: ROM limited, pain with ROM, lumbar spinal tenderness and straight leg raise negative bilaterally Neuro Common normals: oriented x3 Sensorium/orientation: alert Psych Common normals: mental status grossly normal, thought process normal, cooperative, affect normal, speech normal and activity/motor behavior normal Speech: normal speech Thought process: normal thought process Results Additional Findings Additional findings: If on a controlled substance or opioids, I have checked an [place]AR[place] report on this patient and there are no aberrancies noted in the prescribing history.??If on a controlled substance or opioid a drug screen was completed and reviewed within the last year, and if there has not been a drug screen completed we ordered one today to monitor higher risk, state monitored pain medication use. As part of providing excellent, safe, comprehensive care, the following was completed at our patient's visit: 1. A medication reconciliation and review to ensure accurate knowledge of current/active medications, including asking our patients to inform us about any mfkb-ggf-ozwnjge medications or herbal remedies/nutritional supplements/alternative remedies. 2. A review to specifically ensure our patients have had annual screening for screening for depression, screening for tobacco use, and screening for unhealthy alcohol use. For concerning screenings had a discussion with the patient, provided patient education, and recommended follow-up with primary care provider when appropriate. If patient noted with a risk of falling, they received education on strength, gait, and balance training to prevent future risk of falling. Portions of this note may have been carried over from the previous visit and updated as appropriate. Please note this office utilizes paper charting in addition to the electronic medical record. A list of current medications, vitals, and PMH is available there as the clinical staff outside of myself do not have access to [employer] charting during the clinic day operations. As part of providing quality comprehensive care the current medications, vitals, and PMH were reviewed in the paper chart. Assessment and Plan Assessment and Plan (1) Cervical spondylosis: (2) Osteoarthritis: (3) Chronic pain syndrome: (4) Generalized OA: Plan unfortunately pts UDS revealed marijuana use and he is not interested in complete cessation. he did overtake tramadol by utilizing 100mg daily as needed against our guidance. i have offered the pt a referral to a tertiary pain clinic to which he declined. unfortunately no other recommendations from our clinic for his chronic diffuse pain
--- OUTSIDE RECORDS SUMMARY | 2025-09-07 14:03 | XMS_ITS | CCD ---
Author Organization [facility] Care Team Providers Care Equipment Service Engineer Name Role Phone ERICK MELLISA STOHLER [...] Unavail able SAMSA ., DARNELL Admitting Unavailable [facility] Unavailable SAMSA ., DARNELL Attending Unavailable SAMSA ., DARNELL Consulting Unavailable SAMSA ., DARNELL Admitting Unavailable [facility] Unavailable SAMSA ., DARNELL Attending Unavailable SAMSA ., DARNELL Consulting Unavailable GREG, KACIE Consulting Unavailable [facility] Care Unavailable SAMSA ., DARNELL Attending Unavailable SAMSA ., DARNELL Consulting Unavailable SAMSA ., DARNELL Admitting Unavailable [facility] Care Unavailable DR ALEYDA DYER Consulting Unavailable SAMSA ., DARNELL Attending Unavailable SAMSA ., DARNELL Admitting Unavailable SAMSA ., DARNELL Consulting Unavailable Noam CHRISTIAN, Risa Unavailable EMELY CANTU Referring Unavailable KACIE DEL REAL Primary Care Unavailable GILLIAN TAYLOR Attending Unavailable KACIE DEL REAL Referring Unavailable RISA MCNULTY Primary Care Unavailable Kacie Del Rela MD Primary Care Provider Noam HO-CHAO Screven Primary Care Provider Darius HO-QUALITY ASSURANCE PRACTICE MANAGER-Damaso Danni [place] Attending Provider Mario Zayas MD Primary Care Provider [phone] Mario Zayas MD Attending Provider Mario Zayas Attending Unavailable Mario Zayas Admitting Unavailable Noam [employer] AS[employer]BLER, Screven Unavailable Mario Zayas MD Primary Care Provider [...] of OnsetReaction(s) Facility (19 sources)GlutenPropensity to adverse dwckerqzf98-84-2142QPChristianaCare (19 sources)Isosorbide DinitrateDrug Egwmpjp97-62-3337ZkzsuvzfTZUS Healthcare (11 sources)Gluten; Translations: [GLUTEN]Propensity to adverse reactions to food (disorder)74-79-5040QzdTlnxul Repository (11 sources)Isosorbide; Translations: [ISOSORBIDE MONONITRATE]Drug Allergy 97-19-2410FbrqijnqSycQydrce Repository (1 source)ALLERGIES NOT ON FILE; Translations: [ALLERGIES NOT ON FILE]Propensity to adverse reactions (disorder)[facility] Repository Medications Current Medications MedicationDrug Class(es)DatesSig (Normalized)Sig (Original)[id number] 200 actuat albuterol 0.09 mg/actuat metered dose inhaler (20 sources)beta2-Adrenergic AgonistStart: 14-42-6676mtku 1 puff(s) by inhalation every four hours [...] mg/ml inhalation solution (20 sources)Anticholinergic, beta2-Adrenergic AgonistStart: 13-73-7582uwof 1 mL by inhalation four times dailyIpratropium-Albuterol 0.5 mg-3 mg(2.5 mg base)/3 mL solution for nebulization Active 3 ML INHALATION Four times daily June 14, 2025 12:00am Complies with drug therapyStart: 81-37-6828cvebxsszjor- albuterol (Duo-Neb) 0.5-2.5 mg/3 mL nebulizer solution Take 3 mL by nebulization in themorning and 3 mL at noon and 3 mL in the evening and 3 mL before bedtime. 02/20/2022 ActiveStart: 18-51-7441Xoykzhevktp-Albuterol 0.5-2.5 (3) MG/3ML Inhalation Solution Quantity: 1350 Refills: 0 Ordered: 20-Feb-2022 DO Start : 20-Feb-2022 Activeapixaban 5 mg oral tablet (20 sources)Factor Xa InhibitorStart: 06-04-2023 End: 08-13-5167mzjf 1 tablet by mouth in the morningapixaban [...] sources)Platelet Aggregation Inhibitor, Nonsteroidal Anti-inflammatory Drug Start: 55-02-0979rkro 1 tablet by mouth once dailyAspirin 81 mg tablet Active 81 MG PO Daily June 14, 2025 12:00am Complies with drug therapyStart: 95-93-0936cdyh 1 tablet by mouth in the morningaspirin 81 MG EC tablet Take 81 mg by mouth in the morning. 07/25/2022 Activeatorvastatin 80 mg oral tablet (20 sources)HMG-CoA Reductase InhibitorStart: 63-38-5438wqtj 1 tablet by mouth once dailyAtorvastatin 80 mg tablet Active 80 MG PO Daily June 14, 2025 12:00am Complies with drug therapyStart: 01-20-2023 End: 49-46-8809mvcz 1 tablet by mouth in the morningatorvastatin (LIPITOR) 40 mg tablet Indications: Coronary artery disease involving coronary bypass graft of [place] heart without angina pectoris , Hx of CABG , Paroxysmal atrial fibrillation (CMS-HCC) , Aneurysm of ascending aorta without rupture , History of maze procedure Take 1 tablet (40 mg total) by mouth in the morning. 90 tablet 1 02/19/2024 Activeazithromycin 250 mg oral tablet (20 sources)Macrolide AntimicrobialStart: 99-12-3536bqlm 1 tablet by mouth once dailyAzithromycin 250 mg tablet Active 250 MG PO Daily June 14, 2025 12:00am Complies with drug therapycapsaicin 0.75 mg/ml topical cream (1 source)Start: 58-01-6328Hepzlplqn 0.075 % cream Active 1 APPLIC TOPICAL [...] 0.05 mg oral capsule (20 sources)Vitamin DStart: 89-24-1284tlcx 1 capsule by mouth once daily Cholecalciferol (Vitamin D3) 50 mcg (2,000 unit) capsule Active 50 MCG PO Daily June 14, 2025 12:00am Complies with drug therapy End: 11-70-4302icco 1 tablet by mouth in the morningcholecalciferol (Vitamin D- 3) 25 MCG (1000 UT) tablet Take 1,000 Units by mouth in the morning. 2025 Discontinueddapagliflozin 10 mg oral tablet (10 sources)Sodium-Glucose Cotransporter 2 InhibitorStart: 02-10-2025 End: 29-67-0424kifmcjnmjgskq (Farxiga) 10 MG Take 10 mg by mouth 02/10/2025 02/10/2026 Activeferrous sulfate 325 mg delayed release oral tablet (20 sources)take 1 tablet by mouth at mealtimeferrous sulfate 325 (65 Fe) MG EC tablet Take 65 mg by mouth in the morning. Take with meals. Nnsxjt98 actuat fluticasone furoate 0.1 mg/actuat / umeclidinium 0.0625 mg/actuat / vilanterol 0.025 mg/actuat dry powder inhaler (20 sources)Anticholinergic, Corticosteroid, beta2-Adrenergic AgonistStart: 55-43-1014hwwl 1 puff(s) by inhalation in the morningTrelegy Ellipta 100-62.5-25 MCG/ACT aerosol powder Inhale 1 puff in the morning. 03/15/2022 ActiveStart: 01-45-4004Vbfoasa Ellipta 100-62.5-25 MCG/INH AEPB Quantity: 180 Refills: 0 Ordered: 15-Mar-2022 DO Start : 15-Mar-2022 AzhwzkSiyttvsmbbj-Hibkpllav-Qqstruse (2 sources)Start: 79-85-3518Kmpxvzuidcd-Umeclidin-Vilanter (Trelegy Ellipta) 200-62.5-25 mcg blister with device Active 1 INH INHALATION Daily June 14, 2025 12:00am Complies with drug fvcalaujwljvnrbbsb-uqeancjpq-kutfrnpx (TRELEGY ELLIPTA) 200-62.5-25 mcg blister with device (10 sources)Start: 00-27-0117upwphiivlbd-umeclidin-vilanter (TRELEGY ELLIPTA) 200-62.5-25 mcg blister with device 1 puff in the morning. 03/15/2022 Active gabapentin 600 mg oral tablet (14 sources)Anti-epileptic AgentStart: 96-01-8173rbwx 1 tablet by mouth three times dailygabapentin (NEURONTIN) 600 mg tablet Take 1 tablet (600 mg total) by mouth 3 (three) times a day. 03/30/2022 ActiveStart: 28-17-4553Gtrgmnspvq 300 MG Oral Capsule Quantity: 270 Refills: 0 Ordered: 30-Mar-2022 DO Start : 48-Atf-6772Pyvost67 hr isosorbide mononitrate 30 mg extended release oral tablet (19 sources)Nitrate VasodilatorStart: 75-36-5043vasr 1 tablet by mouth once daily, then take 1 tablet by mouth every twenty-four hoursisosorbide mononitrate ER (Imdur) 30 MG 24 hr tablet Take 30 mg by mouth Daily 06/13/2022 Active levoFLOXacin 500 mg oral tablet (2 sources)Quinolone AntimicrobialStart: 2025 End: 75-59-7400aygn 1 tablet by mouth once dailylevoFLOXacin (Levaquin) 500 MG tablet Indications: Otorrhea of right ear Take 1 tablet (500 mg) by mouth Daily for 10 days 10 tablet 2025 04/04/2025 Activelisinopril 5 mg oral tablet (20 sources)Angiotensin Converting Enzyme InhibitorStart: 02-50-5013omut 1 tablet by mouth once dailyLisinopril 5 mg tablet Active 5 MG PO Daily June 14, 2025 12:00am Complies with drug therapyStart: 01-20-2023 End: 50-54-1945jyhg 1 tablet by mouth once daily in the morninglisinopriL (PRINIVIL,ZESTRIL) 5 mg tablet Indications: Coronary artery disease involving coronary bypass graft of [place] heart without angina pectoris , Hx of CABG , Paroxysmal atrial fibrillation (CMS-HCC) , Aneurysm of ascending aorta without rupture , History of maze procedure TAKE 1 TABLET BY MOUTH ONCE DAILY IN THE MORNING 30 tablet 11/12/2024 ActiveStart: 64-83-5219Qoemywulrz 5 MG Oral Tablet Quantity: 90 Refills: 0 Ordered: 7-Jeffrey-2022 DO Start : 14-Mar-2022 Active meloxicam 15 mg oral tablet (10 sources)Nonsteroidal Anti-inflammatory DrugStart: 36-83-8137yyha 1 tablet by mouth once dailyMeloxicam 15 mg tablet Active 15 MG PO Daily June 14, 2025 12:00am Complies with drug yjncwqv11 hr metoprolol succinate 50 mg extended release oral tablet (20 sources)beta-Adrenergic BlockerStart: 51-29-5030vdzb 2 tablets by mouth every twenty-four hours in the morning, then take 1 tablet by mouth in the e veningMetoprolol Succinate 50 mg tablet extended release 24 hr Active 50 MG PO .COMPLEX June 142:00am 50 mg orally; take 2 tablets by mouth in the morning and take 1 tablet by mouth in the evening Complies with drug therapy Start: 55-36-8085xrniwzcgyp succinate XL (TOPROL XL) 50 mg 24 hr tablet Indications: Coronary artery disease involving coronary bypass graft of [place] heart without angina pectoris , Hx of CABG , Paroxysmal atrial fibrillation (CMS-HCC) , Aneurysm of ascending aorta without rupture , History of maze procedure Take 100 mg in the morning and 50 mg at night 270 tablet 3 06/25/2023 ActiveStart: 85-63-1703sqed 1 tablet by mouth every twenty-four hoursMetoprolol Succinate ER 50 MG Oral Tablet Extended Release 24 Hour Quantity: 135 Refills: 0 Ordered: 23-Mar-2022 DO Start : 23-Mar-2022 Activenitroglycerin 0.4 mg sublingual tablet (20 sources)Nitrate VasodilatorStart: 58-96-7339ekgehuokefzis (Nitrostat) 0.[address] 0.4 mg under the tongue every 5 (five) minutes if needed for chest pain 07/25/2022 ActiveStart: 07-25-2022 End: 80-89-7136agdiluvearrtw (NITROSTAT) 0.4 MG SL tablet Indications: Coronary artery disease involving coronary bypass graft of [place] heart without angina pectoris , Paroxysmal [...] otic solution (15 sources)Quinolone AntimicrobialStart: 02-17-2023 End: 97-02-7149nxbrokarl (Floxin) 0.3 % otic solution Indications: Otorrhea of right ear Administer 5 drops into the right ear in the morning and 5 drops before bedtime. Do all this for 10 days. 5 mL 1 2025 04/04/2025 Active omeprazole 40 mg delayed release oral capsule (20 sources)Proton Pump InhibitorStart: 07-70-1857jpqc 1 capsule by mouth in the morningomeprazole (PriLOSEC) [address] capsule Take 40 mg by mouth in the morning. 03/19/2022 ActiveStart: 45-74-6858Yhkpqwdmas 40 MG Oral Capsule Delayed Release Quantity: 90 Refills: 0 Ordered: 19-Mar-2022 DO Start: 19-Mar-2022 ActiveOxygen (10 sources)oxygen Inhale continuously. Activepantoprazole 40 mg delayed release oral tablet (10 sources)Proton Pump InhibitorStart: 74-83-8205vpcd 1 tablet by mouth once dailypantoprazole (ProtoNix) 40 MG EC tablet Take 40 mg by mouth Daily 02/07/2025 ActivepredniSONE 10 mg oral tablet (20 sources)Start: 46-78-0740tsqz 1 tablet by mouth once dailyPrednisone 10 mg tablet Active 10 MG PO Daily June 14, 2025 12:00am Complies with drug therapytake 1 tablet by mouth once dailypredniSONE (Deltasone) 20 MG tablet Take 20 mg by mouth Daily Activepregabalin 150 mg oral capsule (20 sources)Start: 02-18-2024 End: 09-72-0057fvgr 1 capsule by mouth in the morning, [...] mg oral tablet (20 sources)Phosphodiesterase 4 InhibitorStart: 19-32-5503eofn 1 tablet by mouth in the morningDaliresp 500 MCG tablet Take 500 mcg by mouth in the morning. 03/15/2022 Activesodium chloride 9 mg/ml inhalation solution (7 sources)Start: 39-54-4773jzat 1 mL by inhalation every twelve hoursSodium Chloride 0.9 % solution for nebulization Active 3 ML INHALATION Q12H June 14, 2025 12:00am Complies with drug therapyStart: 77-71-7236msmjgv chloride 0.9 % nebulizer solution Inhale 3 mL 03/23/2025 Activespironolactone 25 mg oral tablet (8 sources)Aldosterone AntagonistStart: 02-09-2025 End: 33-63-3796qdol 1 tablet by mouth in the morningspironolactone (Aldactone) 25 MG tablet Take 25 mg by mouth in the morning. 02/09/2025 02/09/2026 Active SUMAtriptan 100 mg oral tablet (19 sources)Serotonin-1b and Serotonin-1d Receptor AgonistSUMAtriptan (Imitrex) 100 MG tablet ActiveTESTOSTERONE, BULK, MISC (10 sources)TESTOSTERONE, BULK, MISC by miscellaneous route. 100 mg 1 tablet daily Activetheophylline 400 mg extended release oral tablet (20 sources)MethylxanthineStart: 15-11-9403tqdw 1 tablet by mouth every twelve hoursTheophylline 300 mg tablet extended release 12 hr Active 300 MG PO Q12H June 14, 2025 12:00am Complies with drug therapyStart: 76-25-7625brjt 1 tablet by mouth in the morning, [...] oral tablet (8 sources)Central alpha-2 Adrenergic AgonistStart: 55-70-0056bluo 2 tablets by mouth at bedtimetiZANidine (Zanaflex) 4 MG tablet TAKE 2 TABLETS BY MOUTH AT BEDTIME FOR 30 DAYS 01/07/2025 Activetopiramate 50 mg oral tablet (8 sources)Start: 34-47-3606rwvj 1 tablet by mouth once dailytopiramate 50 MG tablet Take 1 tablet by mouth Daily 02/21/2025 Activezinc gluconate 50 mg oral tablet (20 sources)zinc gluconate 50 MG tablet 1 (one) time each day at the same time Active Completed/Discontinued Medications MedicationDrug Class(es)DatesSig (Normalized)Sig (Original)acetaminophen 300 mg / codeine phosphate 30 mg oral tablet (13 sources)Opioid AgonistStart: 06-12-2023 End: 61-86-6834xqqx 1 tablet by mouth every six hours as needed for pain acetaminophen-codeine (Tylenol w/ Codeine #3) 300-30 MG tablet take 1 tablet by mouth every 6 hoursAS NEEDED FOR PAIN for 5 days 06/12/2023 2025 Discontinueddicyclomine hydrochloride 20 mg oral tablet (13 sources)AnticholinergicStart: 04-01-2023 End: 66-01-6002tslw 1 tablet by mouth three times daily for paindicyclomine (Bentyl) 20 MG tablet take 1 tablet by mouth three times a day if needed for abdominal pain 04/01/2023 2025 SiuvcyppyszyFinuwjrzdkc-Dkxjlkpdf-Pwjhkh 200-62.5-25 MCG/ACT aerosol powder (13 sources)Start: 11-19-2022 End: 31-28-0320eisi 1 puff(s) by inhalation once daily Cbhwpxjwicg-Pverdmlod-Idkutt 200-62.5-25 MCG/ACT aerosol powder Inhale 1 puff 1 (one) time each day. 11/19/2022 2025 DiscontinuedStart: 20-68-0015gbro 1 puff(s) by inhalation once qsuoxGionhtsmurv-Yllgxcycf-Eqerhy 200-62.5-25 MCG/ACT aerosol powder Inhale 1 puff 1 (one) time each day. 11/19/2022 Activelysine 500 mg oral tablet (7 sources) End: 41-96-0135rugy 1 tablet by mouth in the morninglysine 500 mg tablet Take 1 tablet (500 mg total) by mouth in the morning. 06/24/2024 DiscontinuedMaca 500 MG capsule (13 sources) End: 78-51-7874Yujx 500 MG capsule as directed Orally 2025 Discontinued [place] 500 MG capsule as directed Orally Activenaproxen sodium 220 mg oral tablet (13 sources)Nonsteroidal Anti-inflammatory Drug End: 32-72-2188jqwxqzts sodium (Aleve) 220 MG tablet every 12 (twelve) hours. 2025 Sbnvjmjcxrzl46 hr naproxen sodium 220 mg / pseudoephedrine hydrochloride 120 mg extended release oral tablet (20 sources)alpha-Adrenergic Agonist, Nonsteroidal Anti-inflammatory Drug End: 39-70-5221aptt 1 tablet by mouth every twelve hours in the morning pseudoephedrine-Naproxen Na ER 120-220 MG tablet sustained-release 12 hour Take 1 tablet by mouth in the morning and 1 tablet before bedtime. 2025 Discontinuedsaw palmetto (Serenoa repens) 450 MG capsule (13 sources) End: 97-93-8567uct palmetto (Serenoa repens) 450 MG capsule as directed Orally 2025 Discontinuedsaw palmetto (Serenoa repens) 450 MG capsule as directed Orally Activesoybean lecithin 1200 mg oral capsule (13 sources) End: 73-62-2438kcrt 1 capsule by mouth once dailyLecithin 1200 MG capsule Take 1 capsule every day by oral route. 2025 Discontinuedvitamin b12 1 mg oral tablet (20 sources)Vitamin B12 End: 15-99-7816aysn 1 tablet by mouth in the morningcyanocobalamin (Vitamin B- 12) 1000 MCG tablet Take 1,000 mcg by mouth in the morning. 2025 Dis continued End: 38-91-8671mqcrqpujgthsiy (Vitamin B-12) 500 MCG tablet 1 (one) time each day at the same time. 2025 Discontinuedzonisamide 25 mg oral capsule (7 sources)Anti-epileptic Agent End: 04-91-6083maaj 1 capsule by mouth in the morning, then take 1 capsule by mouth at bedtimezonisamide (ZONEGRAN) 25 mg capsule Take 1 capsule (25 mg total) by mouth in the morning and 1 capsule (25 mg total) before bedtime. 06/24/2024 Discontinued Problems Active Problems Problem ClassificationProblemDateDocumented DateEpisodic/ChronicAortic; peripheral; and visceral artery aneurysms (20 sources)Aneurysm of thoracic aorta; Translations: [Thoracic aneurysm without mention of rupture]Onset: 614309-25-4675JiwlqslBxieebw dysrhythmias (20 sources)Atrial fibrillation; Translations: [Atrial fibrillation]Onset: 077140-46-4043QmfcwroSfdoswu obstructive pulmonary disease and bronchiectasis (20 sources)Chronic obstructive lung disease; Translations: [Chronic airway obstruction, not elsewhere classified]Onset: 01-22-2018 Resolved: 58-50-6234DrjqvdtQbskhvfrisfc of device; implant or graft (20 sources)Arteriosclerosis of coronary artery bypass graft; Translations: [Atherosclerosis of coronary arterybypass graft(s) without angina pectoris] Onset: 562763-31-4720SyjrswvMmdeawalgf heart failure; nonhypertensive (14 sources)Chronic systolic heart failure; Translations: [Chronic systolic (congestive) heart failure]Onset: 08-16-2024 Resolved: 080473-59-6869NybsxjhXzlhuvqe atherosclerosis and other heart disease (18 sources)Coronary arteriosclerosis; Translations: [Coronary atherosclerosis of unspecified type of vessel, [place] or graft]Onset: 08-16-2024 Resolved: 282421-70-6271YnvzhjzWcdllevnr of lipid metabolism (20 sources)Mixed hyperlipidemia; Translations: [Mixed hyperlipidemia]Onset: 06-24-2024 Resolved: 237695-56-8981FmcysyfHlfepzevn hypertension (20 sources)Hypertensive disorder; Translations: [Unspecified essential hypertension]Onset: 06-24-2024 Resolved: 414994-36-2610YyvwepoHvcsarlpz of skin (4 sources)H/O Malignant melanoma; Translations: [Personal history of malignant melanoma of skin]EpisodicMycoses (2 sources)Pain in toe; Translations: [Tinea unguium]19-88-0997TixznvbtZmuue aftercare (4 sources)Encounter for therapeutic drug level monitoring; Translations: [ENC THERAPEUTC DRUG LEVL MONITORING]Onset: 21-57-9807RvlhejkoGrtaf and ill-defined heart disease (1 source)Heart disease, unspecified; Translations: [Heart disease, unspecified] Onset: 52-56-8807CzlwjmlXmbvp and ill-defined heart disease (5 sources)Left ventricular cardiac dysfunction; Translations: [Heart disease, unspecified]Onset: 910333-92-9935ScaphwvKlohb ear and sense organ disorders (4 sources)Otorrhea [...] system disorders (19 sources)Neuropathy; Translations: [Polyneuropathy, unspecified]Onset: 956084-37-7966FaixaneFjlts nervous system disorders (20 sources)Polyneuropathy; Translations: [Polyneuropathy, unspecified]Onset: 06-27-2023 Resolved: 444526-92-4307ClxqiyoUnrds nervous system disorders (3 sources)Carpal tunnel syndrome of left wrist; Translations: [Carpal tunnel syndrome, left upper limb]65-34-6417LgtbjhzJffac nervous system disorders (6 sources)Tremor; Translations: [Tremor, unspecified]84-31-8577KwdbqivcAfaar nutritional; endocrine; and metabolic disorders (2 sources)Morbid (severe) obesity due to excess calories; Translations: [Morbid (severe) obesity due to excess calories]Onset: 47-45-5066OwwbjxfOtwan nutritional; endocrine; and metabolic disorders (2 sources)Body mass index (BMI) 35.0-35.9, adult; Translations: [Body mass index (BMI) 35.0-35.9, adult]Onset: 31-67-4662HsrxwjcGykpi screening for suspected conditions (not mental disorders or infectious disease) (2 sources)Abnormal result of other cardiovascular function study; Translations: [Abnormal result of other cardiovascular function study]Onset: 04-06-2025 EpisodicOtitis media and related conditions (4 sources)Dysfunction of right eustachian tube; Translations: [Unspecified Eustachian tube disorder, right ear]13-48-9436DjmulsfnWppivcjkbb and visceral atherosclerosis (2 sources)Peripheral vascular disease; Translations: [Peripheral vascular disease, unspecified]11-88-0170EfcplgfGsnw and subcutaneous tissue infections (2 sources)Paronychia of toe of left foot; Translations: [Cellulitis of left toe]13-38-8555KkdzzlwfFcctxadkltz; intervertebral disc disorders; other back problems (20 sources)Degeneration of lumbar intervertebral disc; Translations: [DDD (degenerative disc disease), lumbar]Onset: 135279-92-9468Trkkqoa Unclassified (1 source)Neck Pain / [id number]()Onset: 55-20-6206Zuloukoueyeq (1 source)Stiffness / 343()Onset: 71-77-3413Lxifupenqnbe (1 source)Back Pain / 12()Onset: 41-44-5856Yhdmqorzcawh (1 source)Upper Extremity Weakness / [id number]()Onset: 42-38-0955Znftnfnzvfjv (1 source)M54.2 - Cervicalgia,M51.369 - Other intervertebral disc degeneration, lumbar region without mention of lumbar back pain or lower extremity pain,M54.17 - Radiculopathy, lumbosacral regionUnclassified (1 source)Aneurysm of the ascending aorta, without rupture; Translations: [Aneurysm of the ascending aorta, without rupture]Onset: 19-80-6066Hmnsjhutsakv (2 sources)Abnormal stress testOnset: 87-02-9137Opzngexfnrrx (1 source)Abdominal aortic aneurysm, without rupture, unspecified; Translations: [Abdominal aortic aneurysm, without rupture, unspecified]Onset: 12-31-2024 Unclassified (1 source)Obesity, class 2; Translations: [Obesity, class 2]Onset: 08-16-2024 Past or Other Problems Problem ClassificationProblemDateDocumented DateEpisodic/ChronicCardiac dysrhythmias (19 sources)Sinus tachycardia; Translations: [Tachycardia, unspecified]Onset: 01-22-2018 Resolved: 735588-68-4067RtujagfaBvysjjzt, including migraine (20 sources)Headache; Translations: [Occipital headache]Onset: 04-08-2018 Resolved: 271638-21-4194HbdrovjoPcyfymdpkapt with complications and secondary hypertension (8 sources)Hypertensive heart failure; Translations: [Hypertensive heart disease with heart failure]Onset: 2025 Resolved: 421818-05-8976VqbqjymSgnydfkhpigrru (8 sources)Arthritis; Translations: [Unspecified osteoarthritis, unspecified site]Onset: 08-16-2024 Resolved: 695894-29-9781FokpedbRdatm aftercare (12 sources)Long-term current use of anticoagulant; Translations: [nursing home (current) use of 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]Onset: 08-16-2024 Resolved: 848984-19-2831VgmbxeohIsgsx aftercare (2 sources)long term care pharmacist (current) use of 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; Translations: [long term care pharmacist (current) use of 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]Onset: 22-52-6712IngeesopGgguj gastrointestinal disorders (19 sources)Celiac disease; Translations: [Celiac disease]Onset: 03-04-2019 Resolved: 162710-78-6878QzsgmrfYlwkv male genital disorders (8 sources)Male erectile dysfunction, unspecified; Translations: [Impotence of organic origin]Onset: 08-16-2024 Resolved: 980549-68-6995ZzjdcxoIfmwq nervous system disorders (20 sources)Paresthesia; Translations: [Paresthesia of skin]Onset: 01-20-2024 77-63-6491WjyzsahlQsfgl non-traumatic joint disorders (8 sources)Pain in wrist; Translations: [Pain in unspecified wrist]Onset: 08-16-2024 Resolved: 261900-92-2225HzxqomurEbcer nutritional; endocrine; and metabolic disorders (8 sources)Severe obesity; Translations: [Class 2 severe obesity due to excess calories with serious comorbidity and body mass index (BMI) of 35.0 to 35.9 in adult]Onset: 08-16-2024 Resolved: 501282-04-1134IztgotcZzkeynsq codes; unclassified (20 sources)History of maze procedure for atrial fibrillation; Translations: [Other specified postprocedural states]Onset: 402315-54-1434Ammxgref Screening and history of mental health and substance abuse codes (1 source)Personal history of nicotine dependence; Translations: [PERSONAL HISTORY OF NICOTINE DEPEND]Onset: 01-01-3488NojhdextEdehswsbiif; intervertebral disc disorders; other back problems (20 sources)Cervicalgia; Translations: [Neck pain]Onset: 04-08-2018 Resolved: 168793-04-8500LlztirwxHantzcahlmpa (1 source)Aneurysm of the ascending aorta, without rupture; Translations: [Aneurysm of the ascending aorta, without rupture]Onset: 71-92-5184Yewsbypewqgn (1 source)Abdominal aortic aneurysm, without rupture, unspecified; Translations: [Abdominal aortic aneurysm, without rupture, unspecified]Onset: 12-31-2024 Unclassified (1 source)Obesity, class 2; Translations: [Obesity, class 2]Onset: 08-16-2024 Results Test NameValueInterpretationReference HutxmBvofeebk24pf [id number] Tari Hagan MA Good lipids and LFTs, continue atorvastatin and recheck in 6 months LVM to advise patient of his lab results per Dr. Whaley request.Normal [facility] HospitalUrine Cultureon 14-92-2657Uwkqrkir identified Cx Nom (U)No Growth 2 Days PERFORMED BY: [place] [address] PATHOLOGIST TITLE I INSTRUCTIONAL ASSISTANT MICHEL PACHECO M.D.NormalAdventhealth Carrollwood Physician GroupComment on above: Performed By: #### CUU #### [place] [address] USAOffice Visiton 44-93-6171Shoqwq-up [id number] Elise Tabor 1960 M Date Provider Department Center 05/27/2025 [id number]-MITOSNBENNY GARZA Family History Problem Relation Age of Onset Coronary artery disease Mother Coronary artery disease Father Family Status - Relation Status Age at Mother Father Sister Alive Level of Service:[id number] MD OFFICE/OUTPATIENT ESTABLISHED MOD MDM 30 MIN Reason for Visit and Comments: Follow-up [264425] - Patient is here today for a follow up s/p cath. Patient states heart desir he feels well. Patient states he fell around labor day and possibly tore a hamstring. Post-Cath [731] Coronary Artery Disease [187] Hyperlipidemia [182] Hypertension [372276] Thoracic aortic aneurysm without rupture [Other] Cardiomyopathy [104] Atrial Fibrillation [80] Congestive Heart Failure [127][facility] 55-83-8777UDNB Attestation signed by Juan Flores MD at 04/21/2025 12:57 PM I personally spoke with and examined Mr. Tabor with Dr. Saleh. He has a drop in LVEF and a positive stress test. Plan cors, LV and WALTERS angiography. He voices understanding of risks (, MS, bleeding, etc) and agrees to proceed. Patient: [...] Celiac disease 08/16/2024 Coronary artery disease involving [place] coronary artery of [place] heart without angina pectoris 08/16/2024 Erectile dysfunction 08/16/2024 Pain in wrist 08/16/2024 Peripheral polyneuropathy 08/16/2024 Cardiomyopathy, ischemic 08/16/2024 Chronic systolic heart failure (CMS/HCC) 08/16/2024 Chronic anticoagulation 08/16/2024 Pure hypercholesterolemia 08/16/2024 Class 2 severe obesity due to excess calories with serious comorbidity and body mass index (BMI) of 35.0 to 35.9 in adult ([facility]) 08/16/2024 Mixed hyperlipidemia 06/24/2024 Essential hypertension 06/24/2024 DDD (degenerative disc disease), lumbar 01/20/2024 Neuropathy 01/20/2024 Paresthesia 01/20/2024 History of maze procedure 05/20/2022 Paroxysmal A-fib ([facility]) 05/20/2022 Thoracic aortic aneurysm without rupture 05/20/2022 Cervicalgia 04/08/2018 Headache in back of head 04/08/2018 Abnormal cardiovascular stress test 04/05/2025 Allergies: Allergies[2] MID LEVEL DEVELOPER/Current Medications: Prescriptions Prior to Admission[3] Current Medications[4] [...] and agreed to proceed. Lars Saleh PGY-4 [employer] [facility] [1] Past Medical History: Diagnosis Date Abnormal ECG Aneurysm Arrhythmia Atrial fibrillation ([facility]) Cardiomyopathy ([facility]) COPD (chronic obstructive pulmonary disease) ([facility]) Coronary artery disease Hyperlipidemia Hypertension [2] No [...] by mouth 3 times (more content not included)...[facility] CenterHPon 28-11-7717YTD&P reviewed. The patient was examined and there are no changes to the H&P. Will proceed with coronary angiography for further evaluation of abnormal stress test. Consent for blood products obtained. Risks, benefits, and alternatives to procedure discussed with patient in detail who expressed understanding and agreed to proceed.[facility] CenterNURSNOTEon 04-21-2025 NURSNOTERN educated pt on d/c instructions. [...] wheeled off of unit with all of belongings.[facility] CenterNURSNOTEPatient requesting resp do his DuoNeb nebulizer prior to having his cath done. Resp compounding and finishing supervisor called to have the treatment done - states someone will be down as soon as possibleNoMartin Memorial HospitalResults Follow-Upon 69-21-8740Rdvfwva Follow-[id number] Elise Tabor 1960 M Date Provider Department Center 04/21/2025 [id number]-LBEKPGBENNY DIAZ [facility] CARD AL HeartVAS Family History Problem Relation Age of Onset Coronary artery disease Mother Coronary artery disease Father Family Status - Relation Status Age at Mother Father Sister AliveNoC[facility] 31-51-2573OAGymawlas Office Cardiology Clinic Note Reason for cardiology [...] procedure, paroxysmal atrial fibrillation, s/p ablation in [place], thoracic aortic aneurysm, left ventricle dysfunction, hypertension, [...] Disp: , Rfl: theop (more content not included)...[facility] Office Visiton 94-93-6162Eambno-up [id number] Elise Tabor 1960 M Date Provider Department Center 04/14/2025 38295-SVHHFKBENNY GARZA [facility] Family History Problem Relation Age of Onset Coronary artery disease Mother Coronary artery disease Father Family Status - Relation Status Age at Mother Father Sister Alive Level of Service:49115 MD OFFICE/OUTPATIENT ESTABLISHED MOD MDM 30 MIN Reason for Visit and Comments: Follow-up [867331] Abnormal stress test [Other] Cardiac Cath scheduled 04/28/2025 [Other] Coronary Artery Disease [187] Hyperlipidemia [182] Congestive Heart Failure [127] Hypertension [427752] COPD [313] Home o2 3lpm via N/C 31/03 [Other]NormalMartin Memorial Hospital36on 08-10-755068JkcsvMD Tari Hagan MA Overall echo is normal with minor valvular heart disease LVM to advise patient of Dr. Diaz's findings.[facility] CenterOrders Onlyon 87-93-8862Ydxymk [id number] Elise Tabor 1960 M Date Provider Department Center 04/05/2025 928-DANNI THOMAS [facility] Family History Problem Relation Age of Onset Coronary artery disease Mother Coronary artery disease Father Family Status - Relation Status Age at Mother Father Sister AliveUniversity Hospitals Conneaut Medical CenterResults Follow-Upon 64-79-1423Vvsrunl Follow-[id number] Elise Tabor 1960 M Date Provider Department Center 04/02/2025 BENNY NICOLE [facility] CAROL ANN AL HeartVAS Family History Problem Relation Age of Onset Coronary artery disease Mother Coronary artery disease Father Family Status - Relation Status Age at Mother Father Sister AliveNormalUKettering Health HamiltonOrders Onlyon 03-21-2025 Orders [id number] Elise Tabor 1960 M Date Provider Department Center 03/21/2025 T8973-CBYLQZDA, HISTORICAL [facility] Family History Problem Relation Age of Onset Coronary artery disease Mother Coronary artery disease Father Family Status - Relation Status Age at Mother Father Sister AliveNoMartin Memorial Hospital36on 09-82-878293Evddwhssm lab results from 01/19/2025 and echo from [...] labs prior to apt in Apr-May 2025. [facility] CenterOrders Onlyon 80-33-7088Xydctg Only [id number] Elise Tabor 1960 M Date Provider Department Center 02/04/2025 J4875-PNLPNNZI, HISTORICAL SHAVON Cary Family History Problem Relation Age of Onset Coronary artery disease Mother Coronary artery disease Father Family Status - Relation Status Age at Mother Father Sister AliveNormalUniversMercy Health St. Rita's Medical CenterOffice Visiton 12-31-2024 Follow-up [id number] Elise Tabor 1960 M Date Provider Department Center 12/31/2024 73500-NKBRIUBENNY DIAZ Family History Problem Relation Age of Onset Coronary artery disease Mother Coronary artery disease Father Family Status - Relation Status Age at Mother Father Sister Alive Level of Service:62777 MD OFFICE/OUTPATIENT ESTABLISHED MOD MDM 30 MIN Reason for Visit and Comments: Coronary Artery Disease [187] Hyperlipidemia [182] Hypertension [576732][facility]36on Regarding echo and CTA chest performed on [...] increasing atorvastatin per Dr. Diaz. He verbalized understanding.[facility] CenterOffice Visiton 41-08-0043Hrdqdd-up [id number] Elise Tabor 1960 M Date Provider Department Center 08/16/2024 65159-OCTMFPBENNY DIAZ Family History Problem Relation Age of Onset Coronary artery disease Mother Coronary artery disease Father Family Status - Relation Status Age at Mother Father Level of Service:73276 MD OFFICE/OUTPATIENT NEW MODERATE MDM 45 MINUTES Reason for Visit and Comments: Atrial Fibrillation [80] - Had EKG at last apt with [facility] in Jun 2024. Denies chest pain and bleeding on Eliquis. Coronary Artery Disease [187] - CABG and MAZE in 2016 Hypertension [975522] Hyperlipidemia [182] COPD [313] - [facility] Ordered By: Juana Hercules on 75-98-7756RalLtidym Health SystemEMG 1 Extremeityon 51-48-3971JSEF HealthcareNVC 7-8 Nerveson 16-15-8514FPSV Healthcare THEOPHYLLINEon 89-81-2745LOKBOBRXLWYL63.0 ug/sWDwuclp37.0-20.0Parkwood HospitalComment on above:Performed By: #### BRYAN #### [facility] [address] [address] [address] Karen LeeTHEOPHYLLINEon 01-53-3057WDYCJLBKBWAB5.3 ug/mLCritically low 10.0-20.0Parkwood HospitalComment on above:Performed By: #### BRYAN #### [facility] [address] [address] [address] Karen Lu Pressure Cuff Sizeon 48-17-2926Vliu risk assessmenta) No falls within the last yearMG-CT Surgery-e994 Work Phone: Tobacco use status CPHSb) NoMG-CT Surgery-e994 Work Phone: blood Pressure Cuff SizeLargeMG-CT Surgery-e994 Work Phone: Office Visit (Thoracic and Esophageal Surgery)on 66-75-3208Cklphi-up visitDiagnoses/Problems Assessed Atrial fibrillation (427.31) (I48.91) COPD [...] Activated Vitals Vital Signs Recorded: 29May2022 02:58PM Eantnegpusi13.2 F Heart Rate91 Lzcplkrtdaf35 Fcyqvuuo321 Ckdfvjboh20 Blood Pressure Cuff SizeLarge Height5 ft 7.32 in Uvxcbn517 lb 7 oz BMI Ujdlajhzuh12.15 kg/m2 BSA Calculated2.19 Tobacco Useb) No Falls Screening (Age 18+)a) No falls within the last year O2 Irquwermvh36, Nasal Cannula Pain Scale7 Physical Exam The [...] May 29 2022 3:24PM EST (Author) [facility] Referral Letteron 12-71-1868WV Referral LetterMr. Tabor is referred for consideration [...] MD; May 29 2022 3:24PM EST (Author) [facility] TouchworksCT LUNG CANCER SCREENINGon 21-17-3901KH LUNG CANCER SCREENING EXAMINATION: CT LUNG CANCER [...] Electronically authenticated by: ALEYDA DYER Date: 2022-04-26 16:20Cherrington HospitalHEMOGLOBINon 27-70-7097Uzxfrdcply (Bld) [Mass/Vol]13.6 g/dL Critically low14.0-18.0Parkwood HospitalComment on above:Performed By: #### HGB #### [facility] [address] [address] [address] Karen Pedroza Noteson 84-89-6799Ggrtlch mass concEncseton medical centerer Department: [facility]ALTHAB THERAPYProgress Notes by Jacquelyn Rivera PT at [...] Pt self discharged with last txsession with MID LEVEL DEVELOPER.Patient is being discharged due to not returning to therapy and/or Plan of Care being .Recommend patient continue with HEP previously instructed on during therapy as appropriate.Patient may be reinstated in therapy upon new evaluation and orders from the physician.Thank You.Regional Medical CenterProgress Noteson 04-23-2018 Protein mass concEncounter Department: [facility]ALTHAB THERAPYProgress Notes by Berlin Valle PTA at 04/23/2018 9:00 AMAuthor: Berlin Valle PTAService: (none)Author Type: Physical Therapy AssistantFiled: 04/23/2018 9:46 AMEncounter Date: 04/23/2018Status: SignedEditor: Berlin Valle PTA (Physical Therapy Assist ant)Physical Therapy Treatment NoteVisit Number: 5Encounter diagnosis:ICD-10-CM1.AakhmiiabsxF41.22.Headache in back of iwdyC23Rmdrbhd Medical Diagnosis:SUBJECTIVE: Pt requests today being his [...] t-band- Scap retract x15- B UE ext b04Lgbn tucks x15GTB rows 8s51Bsygio- STM along c-spine paraspinals, UT, and levator [...] in rotation and SB without increase in pain.Fdc Goals: LTG to be met by 06/08/18 [...] Treatment Time: 10Total Treatment Time: 25 PT TreatmentNoLake County Memorial Hospital [facility] Progress Noteson 10-14-1740LdndmlzNortheastern [facility] Department: [facility] REHAB THERAPYProgress Notes by Berlin Valle PTA at 04/21/2018 9:00 AMAuthor: Berlin Valle PTAService: (none)Author Type: Physical Therapy AssistantFiled: 04/21/2018 9:46 AMEncounter Date: 04/21/2018Status: SignedEditor: Berlin Valle PTA (Beam Saw Operator)Physical Therapy Treatment NoteVisit Number: 4Encounter diagnosis:ICD-10-CM1.WxpmyrpfrisC81.22.Headache in back of mrvrE59Pysndfn Medical Diagnosis: CervicalgiaSUBJECTIVE:Compliance with HEP: Pt states [...] 30'Green t-band- Scap retract x15- B UEext l20Ayrk tucks x15GTB rows 5d35Clnjri- STM along c-spine paraspinals, UT, and levator [...] in rotation and SB without increase in pain.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[employer] Goals: LTG to be met by 06/08/18 [...] Treatment Time: 17Total Treatment Time: 32 PT TreatmentNoLake County Memorial Hospital - WestProgress Noteson 04-16-2018 Protein mass concEncounter Department: [facility]AB THERAPYProgress Notes by Collette Pisano PTA at 04/16/20189:00 AMAuthor: Collette Pisano PTAService: (none)Author Type: Physical Therapy AssistantFiled: 04/16/2018 12:11 PMEncounter Date: 04/16/2018Status: SignedEditor: Collette Pisano PTA (Physical Therapy As sistant)Physical Therapy Treatment NoteVisit Number: 3Encounter diagnosis:ICD-10-CM1.OxanxxqvtsgV50.22.Headache in back of utyeU03Cidzbur Medical Diagnosis: CervicalgiaSUBJECTIVE:Compliance with HEP:Patient reports compliance [...] t-band- Scap retract x15- B UE ext f97Mjzz tucks x15GTB rows 9c80Ihqwjv- STM along c-spine paraspinals, UT, and levator [...] in rotation and SB without increase in pain.Fdc Goals: LTG to be met by 06/08/18 [...] Treatment Time: 28Total Treatment Time: 43 PT TreatmentNoLake County Memorial Hospital - WestProgress Noteson 16-53-3744ThulxyiNortheastern Vermont Regional Hospital Department: [facility]AB THERAPYProgress Notes by Berlin Valle PTA at 04/10/2018 9:00 AMAuthor: Berlin aVlle PTAService: (none)Author Type: Physical Therapy AssistantFiled: 04/10/2018 10:21 AMEncounter Date: 04/10/2018Status: SignedEditor: Berlin Valle PTA (Beam Saw Operator)Physical Therapy Treatment NoteVisit Number: 2Encounter diagnosis:ICD-10-CM1.DczwtsjwsaxF70.22.Headache in back of erhzR54Oetrppp Medical Diagnosis: CervicalgiaSUBJECTIVE:Compliance with HEP: Pt reports [...] UT stretch 3x 30'Chin tucks x15GTB rows 7q32QVV: chin tuck, UT andLS stretch, scap squeeze.Mechanical [...] in rotation and SB without increase in pain.[employer] Goals: LTG to be met by 06/08/18 [...] Treatment Time: 30Total Treatment Time: 45 PT TreatmentAkron Children'S HospitalProgress Noteson 11-88-5375Cfgebeg [facility] concEncounter Department: [facility]AB THERAPYProgress Notes by Jacquelyn Rivera PT at 04/08/2018 1:45 PMAuthor: Jacquelyn Rivera PTService: (none)Author Type: Physical TherapistFiled: 04/08/2018 6:47 PMEncounter Date: 04/08/2018Status: SignedEditor: Jacquelyn Rivera PT (Physical Therapist)Physical Therapy EvaluationEncounter diagnosis:ICD-10-CM1.HjamsbtujcdG13.22.Headache in back of pwmxN15Wuqdxsyhs provider: Mellisa Clarke,*Primary Medical Diagnosis: CervicalgiaPlan of [...] Home: 15Prior Level of Functioning: Level of Bland: Modified IndependentCurrent Level of Functioning: Outcome Scor e: NDI (26 raw score NDI, 52% disability) Functional deficits: reports no functional deficits, ableto do everything just withincreased pain. Level of Bland: Modified IndependentSleep Status/Sleep Hygiene: Preferred Sleep Position: [...] codes)G8978 Mobility Current Status; Severity: CK 40-59% gdprtthfN9351 Mobility Goal Status; Severity: CI 1-19% impairedOutcome measure(s)/Test(s) used/Result(s): 52% disability on NDI.Clinical Judgment: Moderate to severe impairement, decreased neck ROM and strength, tenderness totrigger points moderateNew Category to Ibklzv-Co-Dlvf only?:NoEvaluation Breakdown DescriptionPatient HistoryComorbiditiesEnvironmental/Personal factorsLearning/CognitionDomestic life*Issue must [...] in rotation and SB without increase in pain.[employer] Goals: LTG to be met by 06/08/18 [...] Time: 60Time in: 1:44Time Out: 2:45 PT alRegional Medical Center Vital Signs Date TimeVital SignValuePerforming InhuonzskTmiokwva68-06-6113 09:50-0400Body sglvun799.8 cmYuri Rodriguez DPM Work Phone: [facility] HospitalCbeyrqnhts80-64-4592 09:50-0400Body mass index (BMI) [Ratio]35.87 kg/d2SizltnrxYuri Rodriguez DPM Work Phone: [facility] HospitalNojwrbmisx63-53-1360 09:50-0400Body qhxdam365.4 kgFaheemcorbyivonne Rodriguez DPM Work Phone: [facility] HospitalIkubhqrqaf02-30-3546 09:50-0400Respiratory rate18 /Gaylacorbyivonne Jae DPM Work Phone: [facility] HospitalEzfhhwpvik16-81-7548 11:48-0400Body .13 kgDokevin Zayas MD Work Phone: [facility]10-07-2025 11:48-0400 Heart rate75 /Roslyn Zayas MD Work Phone: [phone])478-[address] [place], [place] 7506710-07-2025 11:48-0400 Inhaled oxygen flow rate3 L/Roslyn Zayas MD Work Phone: [phone])240-[address] [place], [place] 7506710-07-2025 11:48-0400 Respiratory rate16 /Roslyn Zayas MD Work Phone: [phone])657-[address] [place], [place] 7506710-07-2025 11:48-0400 SaO2% (BldA) [Mass fraction]93 %Mario Zayas MD Work Phone: [phone])626-[address] [place], [place] 7506708-08-2025 09:22-0400 Body loxmsb888.8 cmPaul Biedenbach DO Work Phone: [facility] HospitalHtxhiloiio90-49-6554 09:22-0400Body mass index (BMI) [Ratio]35.87 kg/m2Paul Biedenbach DO Work Phone: [facility] HospitalBwsxnvudli00-90-5882 09:22-0400Body rftlol019.4 kgPaul Biedenbach DO Work Phone: [facility] HospitalCiqcqpwlsp38-53-3074 09:00-0400Body plobur497.8 cmPaul Biedenbach DO Work Phone: [facility] HospitalNkxdjhymwx28-42-5274 09:00-0400Body mass index (BMI) [Ratio]35.87 kg/m2Paul Biedenbach DO Work Phone: [facility] HospitalTvzmtpwtnf41-93-5074 09:00-0400Body mhvqiw794.4 kgPavesna Krishnan DO Work Phone: [facility] HospitalVdllpjxmfu75-99-0881 10:42-0400Body mmpokf209.8 Yair Hall PA Work Phone: [facility] CenterRucbleyjog24-10-0879 10:42-0400Body mass index (BMI) [Ratio]35.87 kg/m2Linsey Hall PA Work Phone: [facility] HospitalTskxtfnfbu96-63-0603 10:42-0400Body vupopq675.4 Moira Hall PA Work Phone: [facility] HospitalHtcapkxaca09-09-1545 10:42-0400Diastolic blood cbbewsdq28 mm[Hg]Linsey Hall PA Work Phone: [facility] HospitalIrpavbzlrt92-90-7325 10:42-0400Heart rate75 /min Linsey Hall PA Work Phone: [facility] HospitalFtrevxiciv54-70-7500 10:42-0400Respiratory rate16 /minLinsey LI Work Phone: [address] [address]Bvqshurnjf08-82-6596 10:42-7173KhI9% (BldA) [Mass fraction]94 %Linsey Hall PA Work Phone: [facility] HospitalWzvlhfluoz89-27-9801 10:42-0400Systolic blood ntykbllk249 mm[Hg]Linsey Hall PA Work Phone: [facility] HospitalYilbsnmdyf71-83-6197 13:52-0400Body .7 Kristi Taylor MD Work Phone: [facility]10-17-2024 13:52-0400Body mass index (BMI) [Ratio]37.26 kg/d1QzlmsGillian Taylor MD Work Phone: [facility]10-17-2024 13:52-0400Body ekqhqh408.13 Rafael Taylor MD Work Phone: [facility]10-17-2024 13:52-0400Diastolic blood kwrvoeir30 mm[Hg]Gillian Taylor MD Work Phone: [facility]10-17-2024 13:52-0400Heart rate 74 /minGillian Taylor MD Work Phone: [facility]10-17-2024 13:52-5617DgR5% (BldA) [Mass fraction]94 %Gillian Taylor MD Work Phone: [facility]10-17-2024 13:52-0400Systolic blood ipvsekqt489 mm[Hg]Gillian Taylor MD Work Phone: [facility]10-02-2024 11:17-0400Body ewzchr702.7 cmAakash LI Work Phone: [facility] HospitalDkxiviifri64-04-6084 11:17-0400Body mass index (BMI) [Ratio]38.01 kg/m2Linsey LI Work Phone: [facility] HospitalGnyxqsytjt26-01-5166 11:17-0400Body nrcyqb541.4 kgLinsey LI Work Phone: [facility] HospitalZhwbeqtcaf69-48-9121 11:17-0400Diastolic blood mm[Hg]Linsey LI Work Phone: [facility] CenterHhdngzgbvy37-53-4764 11:17-0400Heart rate78 /min Linsey LI Work Phone: [facility] CenterVrobhezjvq00-24-5152 11:17-0400Respiratory rate16 /minLinsey LI Work Phone: [facility] CenterJrsykvzucu15-62-7397 11:17-3150OqE3% (BldA) [Mass fraction]93 %Linsey LI Work Phone: [facility] CenterWdgkpxudhs24-71-1255 11:17-0400Systolic blood ewxiazvw475 mm[Hg]Linsey Hall PA Work Phone: [facility] CenterCgehzkeocq65-66-9899 14:58-0400Body bpijgs498.99 cmReferring Provider UnknownMG-CT Surgery-[facility] Work Phone: [phone]) 622-831509-21-2022 14:58-0400Body mass index (BMI) [Ratio] 37.15 kg/l8Turnvlrjl Provider UnknownMG-CT Surgery-[place] Work Phone: 1(678) 271-959409-21-2022 14:58-0400Body surface area Derived from formula2.19 j3Zabsvsrkp Provider UnknownMG-CT Surgery-[place] Work Phone: 1(116) 595-524309-21-2022 14:58-0400Body sltzytqfsfl30.2 [degF] Referring Provider UnknownMG-CT Surgery-[place] Work Phone: 1(798) 272-302109-21-2022 14:58-0400Body .61 kgReferring Provider UnknownMG-CT Surgery-[place] Work Phone: 1(728) 614-847409-21-2022 14:58-0400Diastolic blood uguhvcjo78 mm[Hg] Referring Provider UnknownMG-CT Surgery-[place] Work Phone: 1(452) 772-115409-21-2022 14:58-0400Heart rate91 /minReferring Provider UnknownMG-CT Surgery-[place] Work Phone: 1(118) 979-997909-21-2022 14:58-0400Respiratory rate18 /minReferring Provider UnknownMG-CT Surgery-[place] Work Phone: 1([phone]) 726-203309-21-2022 14:58-1682ZtF8% (BldA) [Mass fraction]93 % Referring Provider UnknownMG-CT Surgery-[place] Work Phone: 1(875) 201-118909-21-2022 14:58-0400Systolic blood wyiuagkj066 mm[Hg] Referring Provider UnknownMG-CT Surgery-[place] Work Phone: 1(789) 774-162909-21-2022 14:58-21254 1Referring Provider UnknownMG- CT Surgery-[place] Work Phone: comment on above:PainScale Encounters Encounter DateEncounter TypeCare ProviderFacilityStart: 06-23-2025 End: 25-39-7071Opfxla flowsheetYuri Rodriguez DPM Work Phone: [facility] PODIATRYStart: 06-23-2025 End: 07-78-1310Pflgel flowsStan Rodriguez DPM Work Phone: [facility] PODIATRYStart: 06-23-2025 End: 62-14-9576oaomiwpkzwRHGBEFEB A BROWNNot AvailableStart: 06-23-2025 End: 00-59-1212Yyduoc outpatient new 30 minutesYuri Rodriguez DPM Work Phone: [facility] CI PODIATRYComment on above:PVD (peripheral vascular disease); Other polyneuropathy; Pain due to onychomycosis of toenails of both feet; Paronychia, toe, leftStart: 06-14-2025 End: 54-64-1411skhbmubiziTohzlgt M Hoy MD Work Phone: [facility] Work Phone: Start: 06-14-2025 End: 70-79-0398Wxljeaq encounter Goyo Mccoy MQCK-GDP-L-FPG [facility] [place] Work Phone: Start: 06-14-2025 End: 27-65-2151qxrhmbgqwuFvlwdbq M Hoy MD Work Phone: [facility] Work Phone: Start: 06-14-2025 End: 48-49-8674Veyuspei ReferredMario Hogan MD-LAB [facility] Start: 05-27-2025 End: 28-00-2637ifnrnhnhxsIVXHS [facility] Centertart: 59-21-4364zfrhgzmmtkUHZQUIGECPP [facility] Health Administrationtart: 04-21-2025 End: 87-64-9251ghdqmvnenaFKPMQRDMZUU [facility] Start: 04-15-2025 End: 11-73-9168Nkbsqy flowsHesham Krishnan DO Work Phone: [facility] [place] OtolaryngologyStart: 04-15-2025 End: 27-52-2412Psajca flowsheetPaul S Biedenbach DO Work Phone: [facility] OtolaryngologyStart: 04-15-2025 End: 31-52-3627Kyopoz outpatient visit 25 minutesPaul S Biedenbach DO Work Phone: [facility] OtolaryngologyComment on above:Otorrhea of right ear (Primary Dx); Dysfunction of right eustachian tube; Chronic anticoagulationStart: 04-15-2025 End: 10-34-1125bsxzqijrheOUDW S BIEDENBACHNot AvailableStart: 04-14-2025 End: 79-72-9273beqmybedjaKOBEGGerman Hospitaltart: 2025 End: 73-49-4324Eicvwo flowsheetPaul S Biedenbach DO Work Phone: no ENT SANDUSKYStart: 2025 End: 82-01-3893Zyiyqv flowsheetPaul S Biedenbach DO Work Phone: NO ENT SANDUSKYStart: 2025 End: 91-25-5456Dvjlsa outpatient visit 15 minutesPaul S Biedenbach DO Work Phone: [facility] ENT SANDUSKYComment on above:Dysfunction of right eustachian tube (Primary Dx); Otorrhea of right ear; Chronic anticoagulationStart: 2025 End: 45-27-3907sphemumrjvOIJA S BIEDENBACHNot AvailableStart: 12-31-2024 End: 70-52-3590jtaveikjepMLKJOGerman Hospitaltart: 12-27-2024 End: 13-95-4851Ughlfb flowsheetAngela Lowe PA Work Phone: aNA PRESTONtart: 12-27-2024 End: 86-42-0962Eyrnji flowsheetAngela Lowe PA Work Phone: ana BELLEVUEStart: 12-27-2024 End: 08-74-1097Ltfatb outpatient visit 15 minutesLinsey LI Work Phone: ana ASHISHUEComment on above:Degeneration of intervertebral disc of lumbar region with discogenic back pain and lower extremity pain (Primary Dx); Lumbosacral radiculopathy; Neck pain; Tremor; Chronic daily headacheStart: 12-27-2024 End: 08-71-9122emakietazoIFMK HILLNot AvailableStart: 12-20-2024 End: 36-18-1829IhbjwfCygymyh Hauler YOLANDAHARRIETT LUNAEVUEComment on above:DDD (degenerative disc disease), lumbar (Primary Dx); Lumbosacral radiculopathyStart: 11-25-2024 End: 07-60-3578Nltqztfwy encounterJotyler Mauro [facility] Comment on above:transfering careStart: 11-09-2024 End: 06-75-2236InetfkAiftbya P Kyser PA-C Work Phone: [facility] Physicians CardiologyComment on above:Med RefillStart: 09-07-2024 End: 30-11-0154WrfmjhBfby Hill PA Work Phone: noIL [place] [facility] ROUTEComment on above:DDD (degenerative disc disease), lumbar; Lumbosacral radiculopathyStart: 08-16-2024 End: 11-22-6986sclgtbshkqJHAHEGerman Hospitaltart: 07-29-2024 End: 02-49-4110DpqmhlWhivmugGriselda TOVAR Work Phone: [facility]ca Physicians CardiologyComment on above:Med RefillStart: 06-24-2024 End: 66-85-5338Xlvivj outpatient visit 25 minutesGillian Taylor MD Work Phone: ProPrem[facility]ca Physicians CardiologyComment on above: Coronary artery disease involving coronary bypass graft of [place] heart without angina pectoris (Primary Dx); Paroxysmal atrial fibrillation (CMS-HCC); Primary hypertension; Mixed hyperlipidemia; Left ventricular dysfunctionStart: 06-24-2024 End: 83-64-6453jjjtlqpdhpSRXOX German [facility]DWet[facility] HospitalStart: 06-23-2024 End: 91-85-9130Cdhmybold encounterJuana Hercules CMASt. Albans HospitalMedica Physicians CardiologyStart: 06-09-2024 End: 19-52-2584Izxtsi outpatient visit 15 fuller hospitalMelitachina Rafael LI Work Phone: noms [place] ROUTEComment on above:Degeneration of intervertebral disc of lumbar region with discogenic back pain and lower extremity pain (Primary Dx); Neck pain; Chronic daily headache; TremorStart: 06-08-2024 End: 36-85-2764Omybnf Amelia Lackey MD Work Phone: noms [place] ROUTEStart: 06-08-2024 End: 04-75-7528Qodfex Amelia Lackey MD Work Phone: noms [place] ROUTEStart: 06-08-2024 End: 17-68-6850Pdhzhdy encounter Alicia Lackey MD Work Phone: noms [place] ROUTEComment on above:Carpal tunnel syndrome of left wrist (Primary Dx)Start: 05-21-2024 End: 68-96-4526LvkjvaJbjiClay Soto Physicians CardiologyComment on above:Med RefillStart: 05-17-2024 End: 31-25-7572wjbjzxngimXIRFZR E OOSTRANOMS HealthcareComment on above:DDD (degenerative disc disease), lumbar; Lumbosacral radiculopathyStart: 05-14-2024 End: 54-04-1284Yayhbxlie encounterJuana BurrMedica Physicians CardiologyStart: 04-30-2024 End: 47-61-9275Isasxuqwk encounterAshlee Soto [facility] Cardiology Start: 02-18-2024 End: 38-98-2431OhjcleGxetqpRosa Soto Physicians CardiologyComment on above:Med RefillStart: 01-24-2024 End: 40-94-4833VtonkjEjktqn D Grande MD Work Phone: [facility] Physicians CardiologyComment on above:Med RefillStart: 12-30-2022 End: 49-04-0054qhirmebllhHFTDDH SAMSA .Facility:O9Brnys: 12-17-2022 End: 85-07-4493tlteybgajeBYIANI SAMSA .Facility:R9Fnhia: 85-37-6834AKBHG Referring Provider UnknownMG-Pulm Sleep-[place] 1800 Work Phone: Start: 96-28-0716Mowdis outpatient new 45 minutes Referring Provider UnknownMG-CT Surgery-[place] Work Phone: Start: 39-96-6776shpgybtwbzIgLeyla Peña Facility:CStart: 05-21-2022 End: 99-33-1058ozmyhjsrgnUASGFU SERVICES [facility]ITALFacility:X6Sgaqk: 04-26-2022 End: 42-50-6137dbmmppolgfDQJYUH SERVICES [facility]OSPITALFacility:L2Hbsyh: 04-23-2018 End: 49-28-7292Mjhzyic encounterSCOTT D [facility] Centertart: 04-21-2018 End: 83-74-7998Adaifxh encounterSCOMERRILL Demarco [facility] Centertart: 04-16-2018 End: 27-08-0925Jctheap encounterRADENIZ Porter [facility] Hospitaltart: 04-10-2018 End: 49-38-2152Rrocesd encounterSCOTT Dav [facility] Centertart: 04-08-2018 End: 37-59-5339Fqvgtwv encounterSHERAlix LISA [facility] Patient encounter statusReferring Provider UnknownMG-Pulm Sleep-[place] 1800 Work Phone: Procedures DateProcedureProcedure DetailPerforming ClinicianStart: 79-16-1342Zkpujm-up visitFollow-upSAMAR KHOURYStart: 22-65-1438Ytt routine ecg w/least 12 lds w/i&r Gillian Taylor MD Work Phone: Start: 68-30-5603Hfywuw-up visitFollow-upLAURA German TAYLORStart: 06-08-2024 End: 59-33-9620Ljunyy emg ea extremty w/paraspinl area Ritesh Lackey MD Work Phone: Start: 63-32-9355Bkmvimz of coronary artery bypass graftingHx of CABGElise Borjas MD Work Phone: Cataract surgeryReferring Provider UnknownCoronary artery bypass graftReferring Provider UnknownHernia repairReferring Provider UnknownHistory of coronary artery bypass graftingHx of CABGNeisha Weathers RN History of coronary artery bypass graftingHx of CABGElise Borjas MD Work Phone: History of coronary artery bypass graftingHx of CABG Radha Griffin RNHistory of coronary artery bypass graftingHx of CABGPablo Zaragoza JOSS HOUSE KEEPER-BED MACHINE OPERATOR Work Phone: History of coronary artery bypass graftingHx of CABG Keron Arreguin PA-C Work Phone: Prosthetic arthroplasty of shoulderReferring Provider UnknownTotal replacement of hipReferring Provider Unknown Plan of Treatment DateCare ActivityDetailAuthorStart: 55-88-6698FJrG,Tdap and Td Vaccines (2 - Td or Tdap)DTaP,Tdap and Td Vaccines (2 - Td or Tdap)[facility] SystemStart: 10-17-2025 End: 73-18-2928Owghhge encounter vkdmelfnz02/09/2026 10:15 AM EST Office Visit [facility] [address] [place] [phone] Tree Krishnan, [address] [place] [address] [facility] [place] OtolaryngologyStart: 09-15-2025 End: 01-46-4083Mvzfycr encounter /08/2026 10:50 AM EST Procedure Visit [facility] [address] [place] [address] Yuri Rodriguez, DPM [address] [place] [address] [place] [address] [facility] CI PODIATRYStart: 40-61-8184Rmgel BMI ScreeningAdult BMI ScreeningProCleveland Clinic Euclid Hospital SystemStart: 07-59-9219Ndsigrg ScreeningTobacco ScreeningProCleveland Clinic Eucl[facility] Hospital SystemStart: 64-00-7263Zguapjzx identified in Urine by CultureUrine [facility] Start: 51-17-6700Ocscoyz referralMercy Memorial Hospital Work Phone: Start: 85-75-1160Kkrex [facility] Centertart: 05-16-2025 End: 52-82-4126Amjadhd encounter vcivhyoia76/08/2025 10:40 AM EDT Office Visit HARRIETT SANTIAGO [address] [place] [phone] Linsey Hall PA [address] [place] [address] HARRIETT LUNAARTtart: 90-29-5987Lkphdsmne vaccinationNOMS HealthcareStart: 04-15-2025 End: 50-26-3617Nhaihdn encounter procedureNOMS ENT SANDUSKYComment on above: ArrivedStart: 2025 End: 06-81-9802Wdoqzzo encounter uxzmqlyxn95/18/2025 9:15 AM EDT Office Visit [facility] SHAYNE [address] [place] [phone] Tree Krishnan DO [address] [place] [address] ArrivedNOMS ENT SANDUSKYComment on above:ArrivedStart: 12-23-2024 End: 34-18-7357Wftvfam encounter odwdfeemc94/17/2025 10:40 AM EDT Office Visit HARRIETT SANTIAGO [address] [place] [address] Linsey Hall PA [address] [place] [address] HARRIETT JOHNSTONtart: 12-21-2024 End: 27-43-4852Llfewdf encounter cnsitirwf34/15/2025 10:40 AM EDT Office Visit NOMNigel SANTIAGO [facility] [address] [place] [address] Linsey Hall [address] [place] [address] NOM [place] [facility] ROUTEStart: 48-51-3402Eejau BMI ScreeningAdult BMI ScreeningProCleveland Clinic Euclid Hospital SystemStart: 06-12-6888Vrjqitd ScreeningTobacco ScreeningProSouthview Medical Centertart: 06-24-2024 End: 40-12-3630PS Chest WO and CT angiogram Coronary arteries W contrast IVCT angiogram chest Imaging Routine Coronary artery disease involving coronary bypass graft of [place] heart without angina pectoris Expected: 06/24/2024, Expires: 06/24/2025ProCleveland Clinic [facility]uclid Hospital SystemComment on above:Expected: 06/24/2024, Expires: 06/24/2025Start: 06-24-2024 End: 53-87-8663Kdxf complete W/O contrastEcho complete W/O contrast Echocardiography Routine Coronary artery disease involving coronary bypass graft of [place] heart without angina pectoris Expected: 06/24/2024, Expires: 06/24/2025ProCleveland Clinic [facility]ucl[facility] Hospital SystemComment on above:Expected: 06/24/2024, Expires: 06/24/2025Start: 06-24-2024 End: 34-44-0941Kvuvopw encounter qrerjzgwx37/17/2024 2:00 PM EDT Office Visit [facility] [address] [place] [address] Gillian Taylor MD [address] [place] [address] [facility] CardiologyStart: 06-09-2024 End: 33-50-6180Qdbewqt encounter jydicsjrf67/02/2024 11:20 AM EDT Office Visit NOM [place] [facility] [address] [place] [address] Linsey Hall PA [address] [place] [address] NOM [place] [facility] ROUTEStart: 06-08-2024 End: 42-35-8590Ulkwaog encounter procedureNOMS ST[facility] ROUTEComment on above:ArrivedStart: 05-17-2024 End: 04-70-1738Tpgugkvdtgov / ancillary services eosoznaiby51/09/2024 8:30 AM EDT Ancillary Procedure [facility] [address] [place] [phone] Emely Cantu MD [address] [place] [address] [facility] CardiologyStart: 58-72-0649Infqggimr vaccinationNOIL HealthcareStart: 2010 Administration of varicella zoster vaccineZoster (Shingles) Vaccine (1 of 2) [facility] SystemStart: 85-93-7787Pbfezpbxorgk Vaccine: 65+ Years (1 of 1 - PCV)Pneumococcal Vaccine: 65+ Years (1 of 1 - PCV)[facility] HealthcareStart: 22-64-0852GVnQ,Tdap and Td Vaccines (1 - Tdap)DTaP,Tdap and Td Vaccines (1 - Tdap)[facility] SystemStart: 19-97-3660Soqtr BMI Follow Up PlanAdult BMI Follow Up PlanUniversity Hospitals Portage Medical Center SystemStart: 50-92-5005Hyisviknrf Screening Depression ScreeningUniversity Hospitals Portage Medical Center SystemStart: 45-07-0721Ovkelihdo for malignant neoplasm of colonNOIL Healthcare End: 65-42-7274IAZ panel - Blood by Automated countCBC Lab Routine Paroxysmal atrial fibrillation (CMS-HCC) 1 Occurrences starting 06/24/2024 until 06/24/2025 [facility] SystemComment on above:1 Occurrences starting 06/24/2024 until 06/24/2025efuroxime free [Mass/volume] in Serum or PlasmaSumma Health End: 86-10-3139Ejanggizqmngo metabolic 2000 panel - Serum or PlasmaCMP Lab Routine Primary hypertension 1 Occurrences starting 06/24/2024 until 06/24/2025 [facility] SystemComment on above:1 Occurrences starting 06/24/2024 until 06/24/2025 End: 52-76-3570Qxeki panelLipid panel Lab Routine Mixed hyperlipidemia 1 Occurrences starting 06/24/2024 until 06/24/2025[facility] Work Phone: Comment on above:1 Occurrences starting 06/24/2024 until 06/24/2025Patient referralMercy Memorial Hospital Work Phone: Pyridoxine [Mass/volume] in Serum or PlasmaSumma HealthUS.doppler Lower extremity arteryVascular US lower extremity arterial Doppler complete Vascular Ultrasound Routine PVD (peripheral vascular disease) Ordered: 06/23/2025[facility] Work Phone: Comment on above:Ordered: 06/23/2025[facility] Immunizations Immunization DateImmunizationNotesCare XarjwyrmGytontcr98-68-7350Nxwrkytwr, injectable, Madin [place] Canine Kidney, preservative free, quadrivalentPaul edkindred [facility] DO Work Phone: SwankWashington University Medical CenterLrlnlxbdxx80-58-2435rzfunbs toxoid, reduced diphtheria toxoid, and acellular pertussis vaccine, adsorbedPaul Biedbach DO Work Phone: [facility] HospitalGbtxocspnk92-32-1671vxjuewxsh virus vaccine, unspecified formulationNicUpland Hills Health09-15-2021influenza, high dose seasonal, preservative-freeGenesis Medical Center09-15-2021 influenza virus vaccine, unspecified formulationElise Borjas MD Work Phone: [facility]02-17-2021Pfizer Purple Cap SARS-CoV-2 VaccinationNicUpland Hills Health01-13-2021Pfizer Purple Cap SARS-CoV-2 VaccinationNicTroy Regional Medical Centeredy [facility] Payers DatePayer CategoryPayerPolicy [id number]-pay2023Medicare (Managed Care)HU[employer]NA MEDICARE ADVANTAGE [id number] 2020Medicare [id number] 2020Medicare HMOHUMANA MEDICARE Member Subscriber Plan / Payer (Effective 2019-Present) Name: Padilla Elise Wyatt Relation to Subscriber: Self Name: Padilla Elise Schneider Payer ID: [id number] (NAIC) Type: Not on file Address:[address] [place], [place] [id number] 2..1.827727.3.57[id number] 2..1.253883.3.57[id number] 2..1.682893.3.57[id number] 2..1.514170.3.57[id number] 2.16.840.1.389389.3.57[id number] 2.16.840.1.818307.3.57[id number] 2.16.840.1.075331.3.57[id number] 2..840.1.345933.3.57[id number] 2.16.840.1.826504.3.57[id number] 2.16.840.1.401903.3.57[id number] 2.840.1.120732.3.579.2.1259 [id number] 2.16840.1.114932.3.579.2.531 Social History DateTypeDetailFacilityStart: 03-15-2024 End: 91-69-1424Wlzmev alcohol useSocial alcohol useUniversity Hospitals Portage Medical Center SystemStart: 03-15-2024 End: 90-60-4428Gxopnxp smoking status NHISEx-smokerNOMS HealthcareStart: 09-08-1974 End: 75-85-5977Jcyijeh of tobacco useCurrent smokerProCleveland Clinic [facility]ucl[facility] SystemStart: 09-08-1974 End: 09-28-0162Uzvtdws of tobacco useCigarette SmokerNOMS HealthcareStart: 05-20-2022 End: 74-95-0142Otjpzrx use and exposureSmokeless tobacco non-userUniversity Hospitals Portage Medical Center SystemStart: 03-15-2024 End: 54-42-0150Uairwpzmi beverage intakeLifetime non-drinker (finding)[facility] HealthcareStart: 03-15-2024 End: 18-16-8472Qomlnim use panelUniversity Hospitals Portage Medical Center SystemStart: 42-97-2081Cymcugc CommentocassionalThe Orthopedic Specialty Hospital HealthcareStart: 08-30-0969Esf assigned at birthSelect Specialty Hospital - Laurel HighlandsStart: 58-06-1520Owszbu identityIdentifies as male gender (finding) [facility] HealthcareStart: 07-29-2023 End: 94-56-4927Rjjrhqckg beverage intakeEx-drinker (finding)[facility] Durhamtart: 39-52-8975Pmnllq the past 12 months we worried whether our food would run out before we got money to buy more.Never [facility] Start: 28-46-5166Jlcsfug CommentocaCone Health Women's Hospitaltart: 07-23-2713Fmo assigned at birthNot on fileSelect Specialty Hospital - Durhamtart: 94-65-2296YdaCoxv (finding)[facility] Clinical Notes 04-30-2024 to 06-23-2025 Note Date & ZptdQqaeNysgydkt42-27-2075 History of Present illness Narrative* Yuri Rodriguez, [...] Insecurity: No Food Insecurity (06/24/2024) Received from [facility] [employer] Hunger Screening Within the past 12 months [...] non palpable pedal pulses bilaterally NEURO: 5.07 [place] Anjum monofilament test intact to digits and [...] shoe gear. Patient have SERVANDO PVRs at [facility] for possible procedure and nail avulsions in the future with follow up post testing Yuri Rodriguez DPM [1] Allergies Allergen Reactions Gluten Meal GI intolerance Isosorbide Nitrate Headache [2] Past Medical History: Diagnosis Date Anemia Arthritis 08/16/2024 Atrial fibrillation (HCC) Cardiomyopathy, ischemic 08/16/2024 Celiac disease (HCC) 03/04/2019 Centrilobular emphysema (HCC) 2025 Noted by [facility] last documented on [id number] Cervicalgia 04/08/2018 Chronic anticoagulation 08/16/2024 Chronic obstructive lung disease (HCC) 01/22/2018 Chronic obstructive pulmonary disease (COPD) ([facility]) Chronic systolic heart failure ([facility]) 08/16/2024 Class 2 severe obesity due to excess calories with serious comorbidity and body mass index (BMI) of35.0 to 35.9 in adult 08/16/2024 Coronary artery disease Emphysema of lung ([facility]) Erectile dysfunction 08/16/2024 H/O hernia repair Headache in back of head 04/08/2018 Hypertensive heart disease with heart failure (HCC) 2025 Noted by [facility] last documented on 20241001 Mixed hyperlipidemia 06/24/2024 Pain in wrist 08/16/2024 Peripheral polyneuropathy 06/27/2023 Pneumonia Primary hypertension 06/24/2024 Pure hypercholesterolemia 08/16/2024 Rheumatoid arthritis ([facility]) Sinus tachycardia 01/22/2018 [3] Current Outpatient Medications: [...] time, Disp: , Rfl: documented in this encounterSoutheast Missouri HospitalObfjumwwhj42-84-1403 Hospital Discharge instructionsAmbulatory Orders* Referral to Pain Management Time Frame: 06/14/25, Location: None Selected [facility] Work Phone: 1(235) 381-675010-07-2025 Evaluation note* Diagnosis Onset Date Resolution Status Admit Date Paresthesias acuteOctober 2024 11:34amCarpal tunnel syndrome, leftchronicOctober 2024 11:34amDDD (degenerative disc disease), lumbarchronicOctober 2024 11:34amLumbosacral radiculopathychronicOctober 2024 11:34amNeck painchronic October 2024 11:34amTremorchronicOctober 2024 11:34am [facility] Work Phone: [phone]) 686-522509-19-2025 [facility] Reason for [...] procedure, paroxysmal atrial fibrillation, s/p ablation in [place], thoracic aortic aneurysm, left ventricle dysfunction, hypertension, [...] once daily as dire (more content not included)...[facility]08-08-2025 History of Present illness Narrative* [...] tympanostomy tube with replacement documented in this encounterSoutheast Missouri HospitalMipdsurmey10-36-5468 NoteBellevue [facility] Note Reason for [...] procedure, paroxysmal atrial fibrillation, s/p ablation in [place], thoracic aortic aneurysm, left ventricle dysfunction, hypertension, [...] Disp: , Rfl: theop (more content not included)...[facility] 2025 History of Present illness [...] family physician and subspecialist documented in this encounterSoutheast Missouri HospitalRgravfnngc01-17-2844 NoteBellevue Office [facility] Note Reason for [...] procedure, paroxysmal atrial fibrillation, s/p ablation in [place], thoracic aortic aneurysm, left ventricle dysfunction, hypertension, [...] well developed, in no (more content not included)...[facility]04-21-2025 History of Present illness Narrative* GUILLERMO Abdul - 12/27/2024 10:20 AM EDT Subjective Elise Tabor is a 64 y.o. year old male Chief Complaint Patient presents with Back Pain Past Medical History: Diagnosis Date Anemia Atrial fibrillation ([facility]/HCC) Celiac disease (CMS/HCC) 03/04/2019 Cervicalgia 04/08/2018 Chronic obstructive lung disease (CMS/HCC) 01/22/2018 Chronic obstructive pulmonary disease (COPD) (CMS/HCC) Coronary artery disease ([facility]/HCC) Emphysema of lung ([facility]/HCC) H/O hernia repair Headache in back [...] triceps, wrist extensors, wrist extensors, wrist flexor, manager managed care strength 5/5. LUE Strength deltoid, biceps, triceps, wrist extensors, wrist extensors, wrist flexor, manager managed care strength 5/5. RLE Strength illopsoas, quadriceps, tibialis [...] new or worsening symptoms documented in this [facility]04-14-2025 Telephone encounter Note* Telephone Encounter - Leanne Mancia MA - 12/20/2024 4:44 PM EDT Patient is in need of refill, appt had to be rescheduled due to provider being out. Please send to [facility] [place] [facility] Tntexrapxm59-51-2002 Miscellaneous Notes* Telephone Encounter - Leanne Mancia MA - 12/20/2024 4:44 PM EDT Patient is in need of refill, appt had to be rescheduled due to provider being out. 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 Explained to him that we do try to keep pt's with same doc but it does not always work out that way. Pt understood but has already seen the the other group. 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 Explained to him that we do try to keep pt's with same doc but it does not always work out that way. Pt understood but has already seen the the other group. [facility]01-02-2025 Telephone encounter Note* Telephone Encounter - Yuri Chapa MA - 09/09/2024 8:59 AM EST 06/09/2024 Continue Lyrica 150mg PO TID for neuropathic pain [facility] reviewed. Last filled 05/17/2024 for 90 day supply. Due 08/15/2024 [facility] Ntogqbhmkm09-17-6089 Miscellaneous Notes* Telephone Encounter - Yuri Chapa MA - 09/09/2024 8:59 AM EST 06/09/2024 Continue Lyrica 150mg PO TID for neuropathic pain [facility] reviewed. Last filled 05/17/2024 for 90 day supply. 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 male with history of coronary artery disease and coronary artery bypass surgery and maze procedure, paroxysmal atrial fibrillation, s/p ablation in [place], thoracic aortic aneurysm, left ventricle dysfunction, hypertension, [...] rubs, or gallops. RESPIR (more content not included)...[facility] 07-29-2024 Miscellaneous Notes* Telephone Encounter - Diana Munguia LPN - 07/29/2024 9:20 AM EST [facility] 06/24/24 documented in this encounterEast [facility] Hospital11-21-2024 Telephone encounter Note* Telephone Encounter - Diana Munguia LPN - 07/29/2024 9:20 AM EST [facility] 06/24/24 [facility]10-17-2024 History of Present illness Narrative* Gillian Taylor MD - 06/24/2024 2:00 PM EDT Elise Schneider Padilla Date of visit: 06/24/2024 Date of : 1960 Age: 64 y.o. Patient Active Problem List Diagnosis Coronary artery disease involving coronary bypass graft of [place] heart without angina pectoris Paroxysmal atrial [...] 65 mg by mouth daily with breakfast. bgvykffrsek-onusdvpkq-knnckjct (TRELEGY ELLIPTA) 200-62.5-25 mcg blister with device [...] atrial fibrillation despite the reported ablation in [place], continue on anticoagulation.We discussed this again today [...] History: Diagnosis Date Arthritis Ascending aortic aneurysm ([facility]) Atrial fibrillation ([facility]) Celiac disease COPD (chronic obstructive pulmonary disease) ([facility]) Coronary artery disease with history of [...] artery disease involving coronary bypass graft of [place] heart without angina pectoris - POCT EKG - CT angiogram chest; Future - Echo complete W/O contrast; Future 2. Paroxysmal atrial fibrillation (CMS-HCC) - CBC; Future 3. Primary hypertension - CMP; Future 4. Mixed hyperlipidemia - Lipid panel; Future 5. Left ventricular dysfunction 1. ASCVD without angina --history of CABG with Maze --[facility] to [facility] 2015 in [place] 2. Cardiomyopathy -ischemic versus related to alcohol [...] LORENZO Referring Physician: Kacie Del Real MD [address] [place] [address] documented in this [facility]10-17-2024 Instructions* Patient Instructions* Gillian Taylor MD - 06/24/2024 2:00 PM EDT Laboratory studies CTA of the aorta Echocardiogram documented in this encounterC[facility] RehabilitationBenzing[facility] [id number] Miscellaneous Notes* Telephone Encounter - Juana Hercules CMA - 06/23/2024 10:05 AM EDT Called patient to remind them to bring their most current copy of their medication list with them to their appt. Patient verbalizes understanding. [facility] Telephone encounter Note* Telephone Encounter - Juana Hercules CMA - 06/23/2024 10:05 AM EDT Called patient to remind them to bring their most current copy of their medication list with them to their appt. Patient verbalizes understanding. [facility] History of Present illness Narrative* GUILLERMO Abdul - 06/09/2024 11:20 AM EDT Subjective Elise Tabor is a 64 y.o. year old male Chief Complaint Patient presents with Back Pain Neck Pain Tremors Past Medical History: Diagnosis Date Anemia Atrial fibrillation ([facility]) Celiac disease ([facility]) 03/04/2019 Cervicalgia 04/08/2018 Chronic obstructive lung disease ([facility]) 01/22/2018 Chronic obstructive pulmonary disease (COPD) ([facility]) Coronary artery disease ([facility]) Emphysema of lung ([facility]) H/O hernia repair Headache in back of head 04/08/2018 Peripheral polyneuropathy 06/27/2023 Pneumonia Rheumatoid arthritis ([facility]) Sinus tachycardia 01/22/2018 Past Surgical History: Procedure [...] handles -admits hand weakness -some trouble with manager managed care ROS Review of Systems Constitutional: Negative for [...] triceps, wrist extensors, wrist extensors, wrist flexor, manager managed care strength 5/5. LUE Strength deltoid, biceps, triceps, wrist extensors, wrist extensors, wrist flexor, manager managed care strength 5/5. RLE Strength illopsoas, quadriceps, tibialis [...] new or worsening symptoms documented in this [facility]10-01-2024 History of Present illness Narrative* Vera Zuñiga MA - 06/08/2024 12:15 PM EDT Images from the original note were not included. Reason for Appointment: EMG Patient: Elise Tabor : 1960 EMG Computer: Chideo Referring Physician: Preet Bill PA-C EMG: [facility] home delivery driver: Vera Zuñiga CMA Office Location: [place] Reason for EMG: c/o pain and paresthesia in the arm from the shoulder down. No Hx of DM, takes Eliquis and ASA Comments: Procedure explained to the patient who expressed understanding. documented in this [facility]09-06-2024 Miscellaneous Notes* Telephone Encounter - Juana Hercules CMA - 05/14/2024 10:40 AM EDT Phoned pt to advise that appt scheduled for 05/17/2024 is the date that his EM will be sent out andis NOT an actual appt. Verbalized understanding. documented [facility] Telephone encounter Note* Telephone Encounter - Juana Hercules CMA - 05/14/2024 10:40 AM EDT Phoned pt to advise that appt scheduled for 05/17/2024 is the date that his EM will be sent out andis NOT an actual appt. Verbalized understanding. 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 Please advise. Thank you! 3 boxes of Eliquis in sample cabinet for patient last picker. * Telephone Encounter - Emely Cantu [...] patient to call us back to review MERCH[employer]ISE PRESENTATION ASSOCIATE's response. 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 Please advise. Thank you! 3 boxes of Eliquis in sample cabinet for patient last picker. [facility]08-23-[facility] Telephone encounter Note* Telephone Encounter - [...] continue Eliquis in the meantime. [facility] [id number] Telephone encounter Note* Telephone Encounter - Ashlee Lim RN - 04/30/2024 10:24 AM EDT Amml asking patient to call us back to review MERCHANDISE PRESENTATION ASSOCIATE's response. [facility] Diagnosis Carpal tunnel syndrome of left wrist- Primary documented in this encounter [facility] HealthcareEvaluation note* Diagnosis Degeneration of intervertebral disc of lumbar region with discogenic back pain and lower extremity pain- Primary Neck pain Cervicalgia Chronic daily headache Headache Tremor Abnormal involuntary movements documented in this encounter [facility]* Diagnosis DDD (degenerative disc disease), lumbar Degeneration of lumbar or lumbosacral intervertebral disc Lumbosacral radiculopathy Thoracic or lumbosacral neuritis or radiculitis, unspecified documented in this encounter [facility] HealthcareEvaluation note* Diagnosis DDD (degenerative disc disease), lumbar Degeneration of lumbar or lumbosacral intervertebral disc Lumbosacral radiculopathy Thoracic or lumbosacral neuritis or radiculitis, unspecified documented in this encounter [facility] HealthcareEvaluation note* Diagnosis Coronary artery disease involving coronary bypass graft of [place] heart without angina pectoris Hx of CABG Postsurgical aortocoronary bypass status Paroxysmal atrial fibrillation (CMS-HCC) Atrial fibrillation Aneurysm of ascending aorta without rupture (CMS-HCC) History of maze procedure documented in this encounter [facility]* Diagnosis Coronary artery disease involving coronary bypass graft of [place] heart without angina pectoris Hx of CABG Postsurgical aortocoronary bypass status Paroxysmal atrial fibrillation (CMS-HCC) Atrial fibrillation Aneurysm of ascending aorta without rupture (CMS-HCC) History of maze procedure documented in this encounter [facility] System[facility] note* Diagnosis Coronary artery disease involving coronary bypass graft of [place] heart without angina pectoris Paroxysmal atrial fibrillation (CMS-HCC) Atrial fibrillation Aneurysm of ascending aorta without rupture (CMS-HCC) Hx of CABG 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 documented in this encounter [facility] SystemEvaluation note* Diagnosis Coronary artery disease involving coronary bypass graft of [place] heart without angina pectoris- Primary Paroxysmal atrial fibrillation (CMS-HCC) Atrial fibrillation Primary hypertension Unspecified essential hypertension Mixed hyperlipidemia Left ventricular dysfunction Left heart failure documented in this encounter [facility] System[facility] note* Diagnosis Coronary artery disease involving coronary bypass graft of [place] heart without angina pectoris Paroxysmal atrial fibrillation (CMS-HCC) Atrial fibrillation Aneurysm of ascending aorta without rupture (CMS-HCC) Hx of CABG 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 documented in this encounter [facility] SystemEvaluation note* Diagnosis Coronary artery disease involving coronary bypass graft of [place] heart without angina pectoris Hx of CABG Postsurgical aortocoronary bypass status Paroxysmal atrial fibrillation ([facility]) Atrial fibrillation Aneurysm of ascending aorta without rupture ([facility]) History of maze procedure documented in this [facility]* Diagnosis DDD (degenerative disc disease), lumbar- Primary Degeneration of lumbar or lumbosacral intervertebral disc Lumbosacral radiculopathy Thoracic or lumbosacral neuritis or radiculitis, unspecified documented in this encounter [facility] HealthcareEvaluation note* Diagnosis Degeneration of intervertebral disc of lumbar region with discogenic back pain and lower extremity pain- Primary Lumbosacral radiculopathy Thoracic or lumbosacral neuritis or radiculitis, unspecified Neck pain Cervicalgia Tremor Abnormal involuntary movements Chronic daily headache Headache documented in this encounter [facility] HealthcareEvaluation note* Diagnosis Dysfunction of right eustachian tube- Primary Otorrhea of right ear Chronic anticoagulation Encounter for long-term (current) use of 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 documented in this encounter [facility] HealthcareEvaluation note* Diagnosis Otorrhea of right ear- Primary Dysfunction of right eustachian tube Chronic anticoagulation Encounter for long-term (current) use of 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 documented in this encounter [facility] HealthcareEvaluation noteNo assessment information availablePremier Health [facility] Work Phone: Evaluation note* Diagnosis PVD (peripheral vascular disease) Unspecified peripheral vascular disease Other polyneuropathy Pain due to onychomycosis of toenails of both feet Paronychia, toe, left documented in this encounter [facility] HealthcareHistory of Present illness NarrativeMrLeyla Tabor is referred for consideration of LVRS. 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 He is on 3 L nasal cannula oxygen chronically. He is set to begin pulmonaryrehabilitation.[facility] Work Phone: History of Present illness NarrativeMrLeyla Tabor is referred for consideration of LVRS. 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 He is on 3 L nasal cannula oxygen chronically. He is set to begin pulmonaryrehabilitation.[facility] Work Phone: History of Present illness NarrativeMrLeyla Tabor is referred for consideration of LVRS. 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 He is on 3 L nasal cannula oxygen chronically. He is set to begin pulmonaryrehabilitation.[facility] Work Phone: InstructionsNot on filedocumented in this [...] for referral (narrative)No reason for referral information availablePremier Health [facility] Work Phone: Summary Purpose Family History No [...] Aleyda Lackey MD [address] [place] [address] Referral IDStatusReasonStart DateExpiration DateVisits RequestedVisits [id number] Chief Complaint and Reason for Visit Chief [...] section and content) DATE CREATED AUTHOR 07/04/2018 [facility] DATE CREATED AUTHOR AUTHOR'S ORGANIZ ATION 06/09/2022 [facility] DATE CREATED AUTHOR AUTHOR'S ORGANIZ ATION 06/09/2022 [employer] DATE CREATED AUTHOR AUTHOR'S ORGANIZ ATION 02/14/2023 [facility] DATE CREATED AUTHOR AUTHOR'S ORGANIZ ATION 07/06/2024 [facility] DATE CREATED AUTHOR AUTHOR'S ORGANIZ ATION 06/16/2025 [facility] DATE CREATED AUTHOR AUTHOR'S ORGANIZ ATION 06/25/2025 [facility] EPIC DATE CREATED AUTHOR AUTHOR'S ORGANIZ ATION 07/02/2025 [facility] Care Teams (unrecognized sec tion and content) Team MemberRelationshipSpecialtyStart DateEnd Date Risa Mcnulty NP [address] [facility] [place] [address] Referring PhysicianFamily Medicine03/15/24Team MemberRelationshipSpecialtyStart DateEnd Date Risa Mcnulty NP [address] [place] [address] Referring PhysicianFamily Medicine03/15/24Team MemberRelationshipSpecialtyStart DateEnd Date Risa Mcnulty NP [address] [facility] [place] [address] Referring PhysicianFamily Medicine03/15/24Team MemberRelationshipSpecialtyStart DateEnd Date Risa Mcnulty NP [address] [facility] [place] [address] Referring PhysicianFamily Medicine03/15/24Team MemberRelationshipSpecialtyStart DateEnd Date Risa Mcnulty NP [address] [facility] [place] [address] Referring PhysicianFamily Medicine03/15/24Team MemberRelationshipSpecialtyStart DateEnd Date Kacie Del Real MD [address] [place] [address] PCP - GeneralFamily Medicine03/22/22Team MemberRelationshipSpecialtyStart DateEnd Date Kacie Del Real MD [address] [place] [address] PCP - GeneralFamily Medicine03/22/22Team MemberRelationshipSpecialtyStart DateEnd Date Kacie Del Real MD [address] [place] [address] PCP - Generalmily Medicine03/22/22am MemberRelationshipSpecialtyStart DateEnd Date Kacie Del Real MD [address] [place] [address] PCP - [facility] Medicine03/22/22am MemberRelationshipSpecialtyStart DateEnd Date Kacie Del Real MD [address] [place] [address] PCP - [facility] Medicine03/22/22Team MemberRelationshipSpecialtyStart DateEnd Date Risa Mcnulty, JOSS HOUSE KEEPER-QUALITY ASSURANCE PRACTICE MANAGER [address] [place] [address] PCP - Generalmily Ypafpzzp02/17/24Team MemberRelationshipSpecialtyStart Date End Date Risa Mcnulty, JOSS HOUSE KEEPER-QUALITY ASSURANCE PRACTICE MANAGER [address] [place] [address] PCP - GeneralFamily Okiyrgru56/17/24Team MemberRelationshipSpecialtyStart Date End Date Risa Mcnulty, JOSS HOUSE KEEPER-QUALITY ASSURANCE PRACTICE MANAGER [address] [place] [address] PCP - GeneralFamily Xypoquxm70/17/24Team MemberRelationshipSpecialtyStart Date End Date Risa Mcnulty, JOSS HOUSE KEEPER-QUALITY ASSURANCE PRACTICE MANAGER [address] [place] [address] PCP - GeneralFamily Zgsdoubb99/17/24Team MemberRelationshipSpecialtyStart Date End Date Risa Mcnulty, [employer] I ASSEMBLER [address] [facility] [place] [address] Referring PhysicianSt. Mary'S Hospital03/15/24Team MemberRelationshipSpecialtyStart DateEnd Date Risa Mcnulty NP [address] [place] [address] Referring PhysicianSt. Mary'S Hospital03/15/24Team MemberRelationshipSpecialtyStart DateEnd Date Risa Mcnulty NP [address] [place] [address] Referring PhysicianSt. Mary'S Hospital03/15/24Team MemberRelationshipSpecialtyStart DateEnd Date Risa Mcnulty NP [address] [place] [address] Referring PhysicianSt. Mary'S Hospital03/15/24 Team Status: Active Member Role Status Dates Mario Zayas MD Primary Care Provider Active Team Status: Inactive Member Role Status Dates Danni Mccoy , JOSS HOUSE KEEPER-QUALITY ASSURANCE PRACTICE MANAGER-C Attending Provider Active Start: June 14, 2025 End: June 14, 2025Eduarda Brice Care ProviderActiveStart: June 14, 2025 End: June 14, 2025 Team Status: Inactive Member Role Status Dates Mario Zayas MD Attending Provider Active Sta rt: June 14, 2025 End: June 14, 2025Team MemberRelationshipSpecialtyStart DateEnd Date Mario Zayas MD [address] [place] [id number] PCP - GeneralSt. [facility]06/23/25 Risa Mcnulty NP [address] [place] [address] Referring PhysicianSt. Mary'S Hospital03/15/24Team MemberRelationshipSpecialtyStart DateEnd Date Mario Zayas MD [address] [place] [id number] PCP - [facility]06/23/25 Risa Mcnulty NP [address] [place] [address] Referring PhysicianSt. Mary'S Hospital03/15/24 Reason for Visit (unrecogniz ed section and content) SpecialtyDiagnoses / ProceduresReferred By ContactReferred To ContactNeurology Diagnoses LUE EMG paresthesias of hand, numbness and tingling, ref by Wei Bill PACr20.2 Procedures MD NERVE CONDUCTION STUDIES 9-10 STUDIES MD NEEDLE EMG EA EXTREMTY W/PARASPINL [place] [address] [place] [address] Aleyda Lackey MD [address] [place] [address] Referral IDStatusReasonStart DateExpiration DateVisits RequestedVisits [id number] Perform Procedure [id number] PainNeck PainTremorsReasonCommentsMed RefillReasonOnset DateCommentsMed [id number] DateCommentsMed [id number]-upEST PT FU EM RESULTSReasonOnset Date Commentstransfering care11/25/2024ReasonOnset DateCommentsMed [id number]/20/2024 ReasonCommentsBack PainReasonCommentsEar Tube CheckRight ear painReasonComments Ear [...] CLINICAL RECORDS. [facility] [employer] [facility]. provides no warranty or guarantee of the accuracy or completeness of information in this document.
== END 2025-09-07 13:17 | disposition home or self-care (01) ==
PROVIDERS: PCP Family Medicine; Visit Provider Nurse Practitioner
DX: M47.812 Spondylosis without myelopathy or radiculopathy, cervical region (principal); M19.90 Unspecified osteoarthritis, unspecified site; G89.4 Chronic pain syndrome; R60.9 Edema, unspecified; R20.2 Paresthesia of skin
CPT/HCPCS: 36415; 80053; 83880; 84207; G0463

== ENCOUNTER 2025-09-07 13:42 | Outpatient (OUT) | payer MEDICARE, SELFPAY ==
--- OUTSIDE RECORDS SUMMARY | 2025-09-07 13:48 | XMS_ITS | Clinical Summary ---
Author Organization [facility] Address [address] [place] [address] Care Team Providers Care Laboratory Clerk Name Role Phone Mario Zayas MD [...] /21/2025enign hypertensive heart disease without congestive heart vzmuxes1605/29/2025Nausea 04/14/2025bnormal cardiovascular stress test04/05/20252092Jwnkkkcvt27/09/2024eliac imwdfli2308/16/2024oronary artery disease involving [place] coronary artery of [place] heart without angina wmwundrd57/09/2024Erectile /09/2024ain in wrist08/16/2024eripheral hsjnhkwzyaabig43/09/2024ardiomyopathy, ischemic 08/16/2024hronic systolic heart kitosfc2608/16/2024hronic anticoagulation 08/16/2024ure zutgekujveuobqnsphah70/09/2024lass 2 severe obesity due to excess calories with serious comorbidity and body mass index (BMI) of35.0 to 35.9 in adult08/16/2024Mixed xckcouldighyti99/17/2024Essential hypertension 06/24/2024DD (degenerative disc disease), rijhkk0701/20/2024 Overview (08/16/2024): The patient is a 62 [...] has had no benefit with gabapentin increase. Eledcolzyn51/14/3035Bbgxykxbqcr06/14/2024History of maze gidfdnnea70/12/2022 Paroxysmal A-fib05/20/2022Thoracic aortic aneurysm without yliiddm0405/20/2022 Jayjdslwzqv56/01/2018Headache in back of head04/08/2018 Resolved Problems ProblemNoted DateDiagnosed DateResolved DateAbdominal aortic aneurysm (AAA) without mufuygf42/27/91833201/02/2025Left ventricular odengwcfxwb89/17/2024 04/18/2025 Encounters DateTypeDepartmentCare FykgEekorlejwfr33/23/2025[facility] [address] [place] [address] Tari Nevarez MA from Last 3 Months Family History Medical HistoryRelationNameCommentsCoronary artery diseaseFatherCoronary artery diseaseMotherRelationNameStatusCommentsFatherDeceasedMotherDeceasedSisterAlive Social History Tobacco UseTypesPacks/DayYears UsedDateSmoking Tobacco: FormerCigarettes Smokeless Tobacco: Never Tobacco Cessation:Counseling Given: Not Answered Alcohol UseStandard Drinks/WeekCommentsYes0 (1 standard drink = 0.6 oz pure alcohol)occasionalSex and Gender InformationValueDate RecordedSex Assigned at SohiwVuxd07/05/2025 3:26 PM EDTLegal FyhEshn02/15/2024 2:46 PM ESTGender MiltxpclGwfs82/05/2025 3:26 PM EDTSexual OrientationHeterosexual or Straight 04/12/2025 3:26 PM EDT Last Filed Vital Signs Vital SignReadingTime TakenCommentsBlood Rirlelrm79/56005/27/2025 11:01 AM EDT Pckvs9537/19/2025 11:01 AM EDTTemperature--Respiratory Xico2662 3:45 PM EDTOxygen Lytbunifxi10%05/27/2025 11:01 AM EDT3 lpm o2 via n/cInhaled Oxygen Concentration--Xvotea330 kg (237 lb)05/27/2025 11:01 AM VRFNygdri853.3 cm (5' 9 )05/27/2025 11:01 AM EDTBody Mass Thoby206105/27/2025 11:01 AM EDT Plan of Treatment Health MaintenanceDue DateLast DoneCommentsCT Lmxvluovdzep1960Colonoscopy 1960Colorectal Cancer Elojhfvqg1960FIT-DNA1960FIT1960 FOBT1960Medicare Annual Wellness (AWV)1960Medicare Initial Physical (IPPE)1960 1910Oosuhecovtoxj1960Depression Ejccuahjb78/18/1972 Pneumococcal Vaccine: 50+ Years (1 of 2 - PCV)1979Zoster Vaccines (1 of 2) 2010Fall Risk Kwxuxediv25/18/2025OVID-19 Vaccine (3 season) , 09/20/2020Influenza Vaccine (#1)512/02/2023, 05/23/2021dult Cyzmrsh18HIB VaccinesAged OutNo longer eligible based on patient's [...] MemberRelationshipSpecialtyStart DateEnd Mario Zayas MD [address] [address] PCP - GeneralFamily Medicine02/09/25
--- OUTSIDE RECORDS SUMMARY | 2025-09-07 13:48 | XMS_ITS | Clinical Summary ---
Author Organization [facility] Address [address] [place] [address] Phone Care Team Providers Care Electrotype Finisher Name Role Phone Unavailable Primary Care Provider Unavailabl e Social History Tobacco UseTypesPacks/DayYears UsedDateSmoking Tobacco: Never AssessedSex and Gender InformationValueDate RecordedSex Assigned at BirthNot on fileLegal Sex Male08/03/2022 11:25 AM ESTGender IdentityNot on fileSexual OrientationNot on file Last Filed Vital Signs Vital SignReadingTime TakenCommentsBlood Nowkfgww170/8609 2:58 PM EDT Xspof1049 2:58 PM KSGPianmrgjjvn00.8 ??C (98.2 ??F)05/29/2022 2:58 PM EDTRespiratory Ehbi0049 2:58 PM EDTOxygen Lnovgcevbx24%05/29/2022 2:58 PM EDTInhaled Oxygen Concentration--Etfdot028 kg (239 lb 7 oz)05/29/2022 2:58 PM ANLThkzky465 cm (5' 7.32 )05/29/2022 2:58 PM EDTBody Mass Index37.1509 2:58 PM EDT Plan of Treatment Not on file
--- OUTSIDE RECORDS SUMMARY | 2025-09-07 13:48 | XMS_ITS | Clinical Summary ---
Author Organization [employer] [facility] tem Address [id number] [place] [address] Care Team Providers Care Conciliator Name Role Phone Pauly Santacruz POLLUTION CONTROL CHEMIST-MANAGER OPERATIONS RESEARCH Primary Care Provider [phone] Allergies Active AllergyReactionsCriticalityNoted XyttCsmpkvttLrqrdu10/31/2022Isosorbide EhupzdwoypuTqdpoafb55/14/2022 Medications MedicationSigDispense QuantityRefillsLast FilledStart DateEnd DateStatus omeprazole (PriLOSEC) 40 mg capsule Take 1 capsule (40 mg total) by mouth in the morning.03/19/2022ctive gabapentin (NEURONTIN) 600 mg tablet Take 1 tablet (600 mg total) by mouth 3 (three) times a day.03/30/2022ctive DALIRESP 500 mcg tablet Take 1 tablet (500 mcg total) by mouth in the morning.03/15/2022ctive drzxibolnsd-ibhdaensu-gnaoppfa (TRELEGY ELLIPTA) 200-62.5-25 mcg blister with device [...] artery disease involving coronary bypass graft of yuhaaviatam heart without angina pectoris,Paroxysmal atrial fibrillation (CMS-HCC),Aneurysm [...] artery disease involving coronary bypass graft of yuhaaviatam heart without angina pectoris,Hx of CABG,Paroxysmal atrial fibrillation (CMS-HCC),Aneurysm of ascending aorta without rupture,History of maze procedure Take 100 mg in the morning and 50 mg at night 270 tablet ctive theophylline (BRYAN-24) 400 MG 24 hr capsule Take 1 capsule (400 mg total) by mouth in the morning.Active atorvastatin (LIPITOR) 40 mg tablet Indications:Coronary artery disease involving coronary bypass graft of yuhaaviatam heart without angina pectoris,Hx of CABG,Paroxysmal atrial [...] artery disease involving coronary bypass graft of yuhaaviatam heart without angina pectoris,Paroxysmal atrial fibrillation (CMS-HCC),Aneurysm of ascending aorta without rupture,Hx of CABG,History of maze procedureDISSOLVE 1 TABLET UNDER THE TONGUE NEEDED FOR CHEST PAIN- MAY REPEAT EVERY 5 MINUTES IF NEEDED (MAX 3 DOSES.- IF NO RELIEF CALL 911) 25 tablet 4Active lisinopriL (PRINIVIL,ZESTRIL) 5 mg tablet Indications:Coronary artery disease involving coronary bypass graft of yuhaaviatam heart without angina pectoris,Hx of CABG,Paroxysmal atrial fibrillation (CMS-HCC),Aneurysm of ascending aorta without rupture,History of maze procedure Take 1 tablet (5 mg total) by mouth in the morning. FINAL REFILL UNTIL LABS COMPLETED. 90 tablet 5Active Active Problems ProblemNoted DateDiagnosed DateMixed vbmjiifmemacuu04/17/2024rimary ejfprermbkyw56/17/2024Left ventricular /17/2024oronary artery disease involving coronary bypass graft of yuhaaviatam heart without angina pectoris 05/20/2022aroxysmal atrial qtaqpsvbdfnj40/12/2022Thoracic aortic aneurysm without lvxwwyz3305/20/2022Hx of CABG05/20/2022History of maze ykghutoai30/12/2022 Family History Medical HistoryRelationNameCommentsHeart diseaseFatherBreast cancerMotherCancer MotherRelationNameStatusCommentsFatherDeceasedMaternal [...] Last Filed Vital Signs Vital SignReadingTime TakenCommentsBlood Itrhvlod106/6206/24/2024 1:52 PM EDT Kyedy978906/24/2024 1:52 PM EDTTemperature--Respiratory Rate--Oxygen Nccxasxdfr44% 06/24/2024 1:52 PM EDTInhaled Oxygen Concentration--Tcognp435.1 kg (245 lb) 06/24/2024 1:52 PM ZWUUwplga618.7 cm (5' 7.99 )06/24/2024 1:52 PM EDTBody Mass Index37.261 1:52 PM EDT Plan of Treatment Health MaintenanceDue DateLast DoneCommentsDepression Mjijmlsks74/18/1972Zoster (Shingles) Vaccine (1 of 2)2010Fall Risk Wsdhezpta78/18/2025Influenza Quuqioo15/02/2023, 05/23/2021dult BMI Knrsztkrf09 Tobacco Aeqrwgsmw69Statin Use: Ucrvbfrjnqjioe09/30/2026 10/07/2024DTaP,Tdap and Td Vaccines (2 - Td or Tdap)RSV ( or age 60+ yrs) (1 - 1-dose 75+ series)2035 [employer] Not on file Insurance * Guarantor: Nikunj CauseyAccount TypeRelation to PatientDate of PhoneBilling AddressPersonal/MzjvttUkls1960 [address] [place] [address] Care Teams Team MemberRelationshipSpecialtyStart DateEnd Date Pauly Santacruz APRN-CHAO [address] [place] [address] PCP - GeneralFamily Aeppulqd80/17/24
--- OUTSIDE RECORDS SUMMARY | 2025-09-07 13:48 | XMS_ITS | Clinical Summary ---
Author Organization [facility] Address [address], [address] [place] [address] Care Team Providers Care Nut Orchardist Name Role Phone Mario Zayas MD Primary [...] tablet Take 1 tablet by mouth every wwowvio73/05/2025Active Ferrous Sulfate 90 (18 Fe) MG TABS [...] under the tongue every 5 minutes as hwnumo204Active Potassium Gluconate 595 (99 K) MG TABS Take 1 tablet by mouth dailyActive pregabalin (LYRICA) 150 MG capsule Take 1 capsule by mouth in the morning, at noon, and at bedtime.12/20/2024tive Saw [place] 450 MG CAPS Take 1 capsule by [...] mouth 2 times daily 180 tablet 5Active pfiadftuvhe-xcoakbawg-mdgwki (TRELEGY ELLIPTA) 200-62.5-25 MCG/ACT AEPB inhaler Indications:Centrilobular [...] candidiasis and other potential adverse effects. 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 including, but not limited to: [...] 1 tablet by mouth 2 times daily pykofpqpgtk-jqibqfzqu-oigvql (TRELEGY ELLIPTA) 200-62.5-25 MCG/ACT AEPB inhaler; Inhale 1 puff intothe lungs daily sodium chloride nebulizer 0.9 % solution; Take 3 mLs by nebulization 2 times daily ISABEL (obstructive sleep apnea) Assessment & Plan (07/13/2025 10:56 AM EST): A nspk-pe-mxhy encounter was performed with the patient today [...] VAuto -Current mode & pressures: BiPAP @ 16/74isD7B -Residual AHI: 0.5 -Median air leak: 6.1L/min [...] & Plan (07/13/2025 10:56 AM EST): A eiyp-gh-pttc encounter was performed with the patient today [...] CT chest evidence of asbestos. 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; intermediate (current) use of inhaled steroidsfrom Last 3 Months Family History Medical HistoryRelationNameCommentsHeart DiseaseFatherBreast CancerMother HypertensionMotherHypertensionSisterRelationNameStatusCommentsFatherMotherSister Social History Tobacco UseTypesPacks/DayYears UsedDateSmoking Tobacco: CjqnraFwayzmyvxk6952376 - 2012Smokeless Tobacco: Never Tobacco Cessation:Counseling Given: Not Answered Alcohol UseStandard Drinks/WeekCommentsNot Currently0 (1 standard drink = 0.6 oz pure alcohol)Sex and Gender InformationValueDate RecordedSex Assigned at Male07/13/2025 7:55 AM ESTLegal EnlSync37/07/2025 3:18 PM EDTGender IdentityNot on fileSexual OrientationNot on file Last Filed Vital Signs Vital SignReadingTime TakenCommentsBlood Aenymxve878/7407/13/2025 8:06 AM EST Dhogx770507/13/2025 8:06 AM AQDSrsiqsiuugb70.1 ??C (97 ??F)07/13/2025 8:06 AM EST Respiratory Vany457209/12/2024 8:06 AM ESTOxygen Voqrxrdacb31%07/13/2025 8:06 AM EST5L M1Hzlkjnv Oxygen Concentration--Ncirbu249.4 kg (247 lb 12.8 oz)07/13/2025 8:06 AM XDFPfwpfr960.7 cm (5' 8 )07/13/2025 8:06 AM ESTBody Mass Index37.68 07/13/2025 8:06 AM EST Plan of Treatment DateTypeDepartmentCare Team (Latest Contact Info)Yhojlocfwxx82/03/2026 10:00 AM ESTOffice Visit [facility] [place] [address] Hu Bunn DO [address] [facility] [facility] [address] [place] [address] 3 MO F/U for COPD, respiratory failure.Health MaintenanceDue DateLast Done RnuuwoweOlddbe02/18/1970Depression Mjzhrb4203/25/1972HIV wzzhte2203/25/1975Hepatitis C ubpmpq3303/25/1978Pneumococcal 50+ years Vaccine (1 of 2 - PCV)1979 Diabetes jsjkwp2603/25/19957956Wcudpykteio30/18/2005Colorectal Cancer Ggnxbf2303/25/2005 FIT/FOBT: Average risk2005Fecal-DNA (Cologuard): Average risk2005 Sigmoidoscopy/CT kyltonoikaku80/18/2005Shingles vaccine (1 of 2)2010 Respiratory Syncytial Virus (RSV) or age 60 yrs+ (1 - Risk 60-74 years 1-dose series)2020Lung Cancer Screening &/or Ezunjeslfj18/19/2023 12/25/2021AA dstvpb2803/25/2025Flu vaccine (#1)/02/2023, 05/23/2021 COVID-19 Vaccine (3 - [...] Team MemberRelationshipSpecialtyStart DateEnd Mario Zayas MD [address] [place] [id number] PCP - GeneralFamily Pypflolo01/7/25
--- OUTSIDE RECORDS SUMMARY | 2025-09-07 13:48 | XMS_ITS | Clinical Summary ---
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 Bnigfodxczy63/14/2024oronary artery disease involving coronary bypass graft of [place] heart without angina /12/2022History of maze procedure 05/20/2022Hx of CABG05/20/2022aroxysmal atrial emyfrubdevzs04/12/2022Thoracic aortic aneurysm without tkgntgz0505/20/2022 Resolved Problems ProblemNoted DateDiagnosed DateResolved DateCentrilobular aqjmrebfm36/18/2025 2025 Overview (2025): Noted by [facility] last documented on 20241027 Hypertensive heart disease with heart Overview (2025): Noted by [facility] last documented on 20241001 Chronic tkplxbapkcsxedq42hronic systolic heart failure Erectile wsscmczewme80ardiomyopathy, mbrwbdwk73lass 2 severe obesity due to excess calories with serious comorbidity and body mass index (BMI) of35.0 to 35.9 in adult08/16/2024 2025Pain in wristPure fcdhqygcksycrxgcxytb02/09/2024 03/25/20253438Kejxszjcm50Mixed fjyxeualoysgzv03 Primary azufmelcfdxr70Peripheral paoxmfzmxniokb74/20/2023 06/27/2023eliac yrlckkb35ervicalgia Headache in back of headhronic obstructive lung disease Sinus mvecjmqbnkm68 Encounters DateTypeDepartmentCare NevaKlyizchlfft70/04/2025 1:50 PM ESTOffice Visit [facility] [address] [facility] [address] [place] [phone] Yuri Rowe DPM Paronychia, toe, left (Primary Dx); PVD (peripheral vascular disease); Other rmwfclbxuzyvnm87/04/2025amboo flowsheet [facility] [address] [facility] [address] [place] [phone] Yuri Rowe DPM 08/11/20254058Yfdroa94/13/2025 4:40 PM ESTOffice Visit [facility] [address] [facility] [address] [place] [phone] Brown, Yuri A, DPM PVD (peripheral vascular disease) (Primary Dx); Other polyneuropathy; Paronychia, toe, left07/21/2025bstract [facility] [address] [facility] [address] [place] [address] Yuri Rowe DPM 07/21/2025amboo flowsheet [facility] [address] [facility] [address] [place] [address] Yuri Rowe DPM 07/21/20250524Ckhxjv82/29/2025bstract [facility] [address] [facility] [address] [place] [address] Yuri Rowe DPM 07/06/2025bstract [facility] [address] [facility] [address] [place] [address] Yuri Rowe DPM 06/23/2025 9:30 AM EDTOffice Visit [facility] [address] [facility] [address] [place] [address] Yuri Rowe, MIN PVD (peripheral vascular disease); Other polyneuropathy; Pain due to onychomycosis of toenails of both feet; Paronychia, toe, left06/23/2025amboo flowsheet [facility] [address] [facility] [address] [place] [address] Yuir Rowe DPM 06/23/2025Travelfrom Last 3 Months Immunizations ImmunizationAdministration DatesNext DueInfluenza, High Dose Seasonal, Preservative Free05/23/2021Influenza, injectable, MDCK, preservative free, ioqiadjjvdqr42/06/2023fizer Purple Cap SARS-CoV-2 Yiwvamotqxr45/17/2021, 09/20/2020Tdap110/14/2022 Family History Medical HistoryRelationNameCommentsHeart diseaseFatherCancerMotherHeart disease MotherHypertensionMotherDiabetesSiblingRelationNameStatusCommentsFatherMother SiblingAlive Social History Tobacco UseTypesPacks/DayYears UsedDateSmoking Tobacco: VjgubrXnngghdsbb622 09/08/1974 - 09/08/2009Smokeless Tobacco: Never Tobacco Cessation:Counseling Given: Yes Alcohol UseStandard Drinks/WeekCommentsNever0 (1 standard drink = 0.6 oz pure alcohol)ocassionallySex and Gender InformationValueDate RecordedSex Assigned at QrmsnIioi72/16/2023 9:38 AM EDTLegal PoqUsis8302/06/2023 9:13 AM EDTGender OzjpunesGshu73/16/2023 9:38 AM EDTSexual OrientationNot on file Last Filed Vital Signs Vital SignReadingTime TakenCommentsBlood Sgbnypfk205/7812 1:57 PM EST Rviac584908/11/2025 1:57 PM ESTTemperature--Respiratory Tquo097809/20/2024 4:45 PM ESTOxygen Lldqeplvbi76%12/27/2024 10:42 AM EDTInhaled Oxygen Concentration-- Qmdxie461 kg (250 lb)08/11/2025 1:57 PM PAIEeovtm672.8 cm (5' 10 )08/11/2025 1:57 PM ESTBody Mass Index35.8708/11/2025 1:57 PM EST Plan of Treatment DateTypeDepartmentCare Team (Latest Contact Info)Bgelunjmwqh00/08/2026 10:50 AM ESTProcedure Visit [facility] [address] [facility] [address] [place] [phone] Yuri Rowe, DPEdison [address] [facility] [address] [place] [address] 10/17/2025 10:15 AM ESTOffice Visit [facility] [address] [place] [address] Tree Carmona DO [address] [place] [address] Insurance Care Teams Team MemberRelationshipSpecialtyStart DateEnd Mario Zayas MD [address] [place] [phone] PCP - GeneralFamily Iqzkuezk56/16/25 Pauly Santacruz NP [address] [place] [id number] Referring PhysicianFamily Medicine03/15/24
--- OUTSIDE RECORDS SUMMARY | 2025-09-07 14:06 | XMS_ITS | CCD ---
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 Name Role Phone ERICK MELLISA STOHLER [...] Unavail able SAMSA ., DARNELL Admitting Unavailable [facility] Primary Care Unavailable SAMSA ., DARNELL Attending Unavailable SAMSA ., DARNELL Consulting Unavailable SAMSA ., DARNELL Admitting Unavailable [facility] Primary Care Unavailable SAMSA ., DARNELL Attending Unavailable SAMSA ., DARNELL Consulting Unavailable GREG, AKCIE Consulting Unavailable [facility] Primary Care Unavailable SAMSA ., DARNELL Attending Unavailable SAMSA ., DARNELL Consulting Unavailable SAMSA ., DARNELL Admitting Unavailable [facility] Primary Care Unavailable DR ALEYDA DYER Consulting Unavailable SAMSA ., DARNELL Attending Unavailable SAMSA ., DARNELL Admitting Unavailable SAMSA ., DARNELL Consulting Unavailable Noam CHRISTIAN, Risa Unavailable EMELY CANTU Referring Unavailable KACIE DEL REAL Primary Care Unavailable GILLIAN TAYLOR Attending Unavailable KACIE DEL REAL Referring Unavailable RISA MCNULTY Primary Care Unavailable Kacie Del Real MD Primary Care Provider Noam HO-CHAO [place] Primary Care Provider Darius HO-FRUIT AND VEGETABLE PARER-Damaso Danni [place] Attending Provider Mario Zayas MD Primary Care Provider [phone] Mario Zayas MD Attending Provider Mario Zayas Attending Unavailable Mario Zayas Admitting Unavailable Noam HOG TENDER, [place] Unavailable Mario Zayas MD Primary Care Provider [...] of OnsetReaction(s) Facility (19 sources)GlutenPropensity to adverse reekidinv31-20-4399SRChristianaCare (19 sources)Isosorbide DinitrateDrug Fnogovp57-94-3282IizuwunaHXTN Healthcare (11 sources)Gluten; Translations: [GLUTEN]Propensity to adverse reactions to food (disorder)13-98-9878IheTslyak Repository (11 sources)Isosorbide; Translations: [ISOSORBIDE MONONITRATE]Drug Allergy 42-98-6691HbdmurqgSkgKaamcz Repository (1 source)ALLERGIES NOT ON FILE; Translations: [ALLERGIES NOT ON FILE]Propensity to adverse reactions (disorder)[facility] Repository Medications Current Medications MedicationDrug Class(es)DatesSig (Normalized)Sig (Original)[id number] 200 actuat albuterol 0.09 mg/actuat metered dose inhaler (20 sources)beta2-Adrenergic AgonistStart: 17-61-3444dlbd 1 puff(s) by inhalation every four hours [...] mg/ml inhalation solution (20 sources)Anticholinergic, beta2-Adrenergic AgonistStart: 97-19-4170oecq 1 mL by inhalation four times dailyIpratropium-Albuterol 0.5 mg-3 mg(2.5 mg base)/3 mL solution for nebulization Active 3 ML INHALATION Four times daily June 14, 2025 12:00am Complies with drug therapyStart: 02-11-7671jwrguwonzzt- albuterol (Duo-Neb) 0.5-2.5 mg/3 mL nebulizer solution Take 3 mL by nebulization in themorning and 3 mL at noon and 3 mL in the evening and 3 mL before bedtime. 02/20/2022 ActiveStart: 96-12-6306Zdpipbzsvbz-Albuterol 0.5-2.5 (3) MG/3ML Inhalation Solution Quantity: 1350 Refills: 0 Ordered: 20-Feb-2022 DO Start : 20-Feb-2022 Activeapixaban 5 mg oral tablet (20 sources)Factor Xa InhibitorStart: 06-04-2023 End: 66-47-3526aigd 1 tablet by mouth in the morningapixaban [...] sources)Platelet Aggregation Inhibitor, Nonsteroidal Anti-inflammatory Drug Start: 94-61-9281twkc 1 tablet by mouth once dailyAspirin 81 mg tablet Active 81 MG PO Daily June 14, 2025 12:00am Complies with drug therapyStart: 50-32-3255bxik 1 tablet by mouth in the morningaspirin 81 MG EC tablet Take 81 mg by mouth in the morning. 07/25/2022 Activeatorvastatin 80 mg oral tablet (20 sources)HMG-CoA Reductase InhibitorStart: 36-28-6036mkoq 1 tablet by mouth once dailyAtorvastatin 80 mg tablet Active 80 MG PO Daily June 14, 2025 12:00am Complies with drug therapyStart: 01-20-2023 End: 55-66-2460levl 1 tablet by mouth in the morningatorvastatin (LIPITOR) 40 mg tablet Indications: Coronary artery disease involving coronary bypass graft of [place] heart without angina pectoris , Hx of CABG , Paroxysmal atrial fibrillation (CMS-HCC) , Aneurysm of ascending aorta without rupture , History of maze procedure Take 1 tablet (40 mg total) by mouth in the morning. 90 tablet 1 02/19/2024 Activeazithromycin 250 mg oral tablet (20 sources)Macrolide AntimicrobialStart: 47-95-5757tdvg 1 tablet by mouth once dailyAzithromycin 250 mg tablet Active 250 MG PO Daily June 14, 2025 12:00am Complies with drug therapycapsaicin 0.75 mg/ml topical cream (1 source)Start: 87-19-5791Jxmqnxmsy 0.075 % cream Active 1 APPLIC TOPICAL [...] 0.05 mg oral capsule (20 sources)Vitamin DStart: 31-51-6598ldjc 1 capsule by mouth once daily Cholecalciferol (Vitamin D3) 50 mcg (2,000 unit) capsule Active 50 MCG PO Daily June 14, 2025 12:00am Complies with drug therapy End: 90-60-1824rcsn 1 tablet by mouth in the morningcholecalciferol (Vitamin D- 3) 25 MCG (1000 UT) tablet Take 1,000 Units by mouth in the morning. 2025 Discontinueddapagliflozin 10 mg oral tablet (10 sources)Sodium-Glucose Cotransporter 2 InhibitorStart: 02-10-2025 End: 86-01-5840uuxxfbkkekvui (Farxiga) 10 MG Take 10 mg by mouth 02/10/2025 02/10/2026 Activeferrous sulfate 325 mg delayed release oral tablet (20 sources)take 1 tablet by mouth at mealtimeferrous sulfate 325 (65 Fe) MG EC tablet Take 65 mg by mouth in the morning. Take with meals. Ilusls96 actuat fluticasone furoate 0.1 mg/actuat / umeclidinium 0.0625 mg/actuat / vilanterol 0.025 mg/actuat dry powder inhaler (20 sources)Anticholinergic, Corticosteroid, beta2-Adrenergic AgonistStart: 12-08-5471idgr 1 puff(s) by inhalation in the morningTrelegy Ellipta 100-62.5-25 MCG/ACT aerosol powder Inhale 1 puff in the morning. 03/15/2022 ActiveStart: 34-43-8233Hmmmpdf Ellipta 100-62.5-25 MCG/INH AEPB Quantity: 180 Refills: 0 Ordered: 15-Mar-2022 DO Start : 15-Mar-2022 EvzuazUqkgjovlkgv-Qyxzsgubb-Dcdphmox (2 sources)Start: 98-02-1259Oxmxxyftous-Umeclidin-Vilanter (Trelegy Ellipta) 200-62.5-25 mcg blister with device Active 1 INH INHALATION Daily June 14, 2025 12:00am Complies with drug bhiyyaegefugavwnsm-bbuqsodwh-cndqrmjc (TRELEGY ELLIPTA) 200-62.5-25 mcg blister with device (10 sources)Start: 89-12-0402gmdjnpyxzcd-umeclidin-vilanter (TRELEGY ELLIPTA) 200-62.5-25 mcg blister with device 1 puff in the morning. 03/15/2022 Active gabapentin 600 mg oral tablet (14 sources)Anti-epileptic AgentStart: 47-58-4257bbnv 1 tablet by mouth three times dailygabapentin (NEURONTIN) 600 mg tablet Take 1 tablet (600 mg total) by mouth 3 (three) times a day. 03/30/2022 ActiveStart: 03-94-0671Vlizxkgpkj 300 MG Oral Capsule Quantity: 270 Refills: 0 Ordered: 30-Mar-2022 DO Start : 50-Lyl-3562Xcmcwi87 hr isosorbide mononitrate 30 mg extended release oral tablet (19 sources)Nitrate VasodilatorStart: 16-59-4015qoqd 1 tablet by mouth once daily, then take 1 tablet by mouth every twenty-four hoursisosorbide mononitrate ER (Imdur) 30 MG 24 hr tablet Take 30 mg by mouth Daily 06/13/2022 Active levoFLOXacin 500 mg oral tablet (2 sources)Quinolone AntimicrobialStart: 2025 End: 24-70-8829sfss 1 tablet by mouth once dailylevoFLOXacin (Levaquin) 500 MG tablet Indications: Otorrhea of right ear Take 1 tablet (500 mg) by mouth Daily for 10 days 10 tablet 2025 04/04/2025 Activelisinopril 5 mg oral tablet (20 sources)Angiotensin Converting Enzyme InhibitorStart: 09-31-7737xrnd 1 tablet by mouth once dailyLisinopril 5 mg tablet Active 5 MG PO Daily June 14, 2025 12:00am Complies with drug therapyStart: 01-20-2023 End: 05-72-4443pxes 1 tablet by mouth once daily in the morninglisinopriL (PRINIVIL,ZESTRIL) 5 mg tablet Indications: Coronary artery disease involving coronary bypass graft of [place] heart without angina pectoris , Hx of CABG , Paroxysmal atrial fibrillation (CMS-HCC) , Aneurysm of ascending aorta without rupture , History of maze procedure TAKE 1 TABLET BY MOUTH ONCE DAILY IN THE MORNING 30 tablet 11/12/2024 ActiveStart: 13-25-4587Qrvxyvvuel 5 MG Oral Tablet Quantity: 90 Refills: 0 Ordered: 7-Jeffrey-2022 DO Start : 14-Mar-2022 Active meloxicam 15 mg oral tablet (10 sources)Nonsteroidal Anti-inflammatory DrugStart: 39-34-3973pmgs 1 tablet by mouth once dailyMeloxicam 15 mg tablet Active 15 MG PO Daily June 14, 2025 12:00am Complies with drug dwadzlk22 hr metoprolol succinate 50 mg extended release oral tablet (20 sources)beta-Adrenergic BlockerStart: 22-11-8982bbcg 2 tablets by mouth every twenty-four hours in the morning, then take 1 tablet by mouth in the e veningMetoprolol Succinate 50 mg tablet extended release 24 hr Active 50 MG PO .COMPLEX June 142:00am 50 mg orally; take 2 tablets by mouth in the morning and take 1 tablet by mouth in the evening Complies with drug therapy Start: 25-57-2382idansdcypl succinate XL (TOPROL XL) 50 mg 24 hr tablet Indications: Coronary artery disease involving coronary bypass graft of [place] heart without angina pectoris , Hx of CABG , Paroxysmal atrial fibrillation (CMS-HCC) , Aneurysm of ascending aorta without rupture , History of maze procedure Take 100 mg in the morning and 50 mg at night 270 tablet 3 06/25/2023 ActiveStart: 10-00-1553teyf 1 tablet by mouth every twenty-four hoursMetoprolol Succinate ER 50 MG Oral Tablet Extended Release 24 Hour Quantity: 135 Refills: 0 Ordered: 23-Mar-2022 DO Start : 23-Mar-2022 Activenitroglycerin 0.4 mg sublingual tablet (20 sources)Nitrate VasodilatorStart: 49-49-7219erpntvzsjkunq (Nitrostat) 0.[address] 0.4 mg under the tongue every 5 (five) minutes if needed for chest pain 07/25/2022 ActiveStart: 07-25-2022 End: 13-13-0807zgzwymkznigsv (NITROSTAT) 0.4 MG SL tablet Indications: Coronary artery disease involving coronary bypass graft of [place] heart without angina pectoris , Paroxysmal atrial [...] otic solution (15 sources)Quinolone AntimicrobialStart: 02-17-2023 End: 03-83-8081vyywwybsb (Floxin) 0.3 % otic solution Indications: Otorrhea of right ear Administer 5 drops into the right ear in the morning and 5 drops before bedtime. Do all this for 10 days. 5 mL 1 2025 04/04/2025 Active omeprazole 40 mg delayed release oral capsule (20 sources)Proton Pump InhibitorStart: 10-38-5223jclz 1 capsule by mouth in the morningomeprazole (PriLOSEC) [address] capsule Take 40 mg by mouth in the morning. 03/19/2022 ActiveStart: 08-64-3988Kzgjirdehv 40 MG Oral Capsule Delayed Release Quantity: 90 Refills: 0 Ordered: 19-Mar-2022 DO Start: 19-Mar-2022 ActiveOxygen (10 sources)oxygen Inhale continuously. Activepantoprazole 40 mg delayed release oral tablet (10 sources)Proton Pump InhibitorStart: 15-32-3154hlvq 1 tablet by mouth once dailypantoprazole (ProtoNix) 40 MG EC tablet Take 40 mg by mouth Daily 02/07/2025 ActivepredniSONE 10 mg oral tablet (20 sources)Start: 33-98-9210gnlz 1 tablet by mouth once dailyPrednisone 10 mg tablet Active 10 MG PO Daily June 14, 2025 12:00am Complies with drug therapytake 1 tablet by mouth once dailypredniSONE (Deltasone) 20 MG tablet Take 20 mg by mouth Daily Activepregabalin 150 mg oral capsule (20 sources)Start: 02-18-2024 End: 76-25-7225emby 1 capsule by mouth in the morning, [...] mg oral tablet (20 sources)Phosphodiesterase 4 InhibitorStart: 42-37-1791kzou 1 tablet by mouth in the morningDaliresp 500 MCG tablet Take 500 mcg by mouth in the morning. 03/15/2022 Activesodium chloride 9 mg/ml inhalation solution (7 sources)Start: 48-44-9780pxzl 1 mL by inhalation every twelve hoursSodium Chloride 0.9 % solution for nebulization Active 3 ML INHALATION Q12H June 14, 2025 12:00am Complies with drug therapyStart: 77-53-5486mrdyql chloride 0.9 % nebulizer solution Inhale 3 mL 03/23/2025 Activespironolactone 25 mg oral tablet (8 sources)Aldosterone AntagonistStart: 02-09-2025 End: 63-57-7272lkra 1 tablet by mouth in the morningspironolactone (Aldactone) 25 MG tablet Take 25 mg by mouth in the morning. 02/09/2025 02/09/2026 Active SUMAtriptan 100 mg oral tablet (19 sources)Serotonin-1b and Serotonin-1d Receptor AgonistSUMAtriptan (Imitrex) 100 MG tablet ActiveTESTOSTERONE, BULK, MISC (10 sources)TESTOSTERONE, BULK, MISC by miscellaneous route. 100 mg 1 tablet daily Activetheophylline 400 mg extended release oral tablet (20 sources)MethylxanthineStart: 86-15-0282rzcv 1 tablet by mouth every twelve hoursTheophylline 300 mg tablet extended release 12 hr Active 300 MG PO Q12H June 14, 2025 12:00am Complies with drug therapyStart: 05-77-7817daqs 1 tablet by mouth in the morning, [...] oral tablet (8 sources)Central alpha-2 Adrenergic AgonistStart: 28-31-4008mygx 2 tablets by mouth at bedtimetiZANidine (Zanaflex) 4 MG tablet TAKE 2 TABLETS BY MOUTH AT BEDTIME FOR 30 DAYS 01/07/2025 Activetopiramate 50 mg oral tablet (8 sources)Start: 04-58-6180dvuq 1 tablet by mouth once dailytopiramate 50 MG tablet Take 1 tablet by mouth Daily 02/21/2025 Activezinc gluconate 50 mg oral tablet (20 sources)zinc gluconate 50 MG tablet 1 (one) time each day at the same time Active Completed/Discontinued Medications MedicationDrug Class(es)DatesSig (Normalized)Sig (Original)acetaminophen 300 mg / codeine phosphate 30 mg oral tablet (13 sources)Opioid AgonistStart: 06-12-2023 End: 25-02-6305qjtk 1 tablet by mouth every six hours as needed for pain acetaminophen-codeine (Tylenol w/ Codeine #3) 300-30 MG tablet take 1 tablet by mouth every 6 hoursAS NEEDED FOR PAIN for 5 days 06/12/2023 2025 Discontinueddicyclomine hydrochloride 20 mg oral tablet (13 sources)AnticholinergicStart: 04-01-2023 End: 67-88-4499ivnt 1 tablet by mouth three times daily for paindicyclomine (Bentyl) 20 MG tablet take 1 tablet by mouth three times a day if needed for abdominal pain 04/01/2023 2025 HixuscvudqxtHtazkxxfjli-Fbnsfrjre-Hikzxg 200-62.5-25 MCG/ACT aerosol powder (13 sources)Start: 11-19-2022 End: 63-63-3533ulxb 1 puff(s) by inhalation once daily Rqdeixdjzbf-Qylotojjr-Pdjwah 200-62.5-25 MCG/ACT aerosol powder Inhale 1 puff 1 (one) time each day. 11/19/2022 2025 DiscontinuedStart: 23-64-5703amki 1 puff(s) by inhalation once huxqsEshctanxyjk-Nzpwttriw-Udscmo 200-62.5-25 MCG/ACT aerosol powder Inhale 1 puff 1 (one) time each day. 11/19/2022 Activelysine 500 mg oral tablet (7 sources) End: 11-58-0478ndku 1 tablet by mouth in the morninglysine 500 mg tablet Take 1 tablet (500 mg total) by mouth in the morning. 06/24/2024 DiscontinuedMaca 500 MG capsule (13 sources) End: 08-54-5606Xjsu 500 MG capsule as directed Orally 2025 Discontinued [place] 500 MG capsule as directed Orally Activenaproxen sodium 220 mg oral tablet (13 sources)Nonsteroidal Anti-inflammatory Drug End: 28-13-3963myyfdjpl sodium (Aleve) 220 MG tablet every 12 (twelve) hours. 2025 Jzmymhvvnwfo98 hr naproxen sodium 220 mg / pseudoephedrine hydrochloride 120 mg extended release oral tablet (20 sources)alpha-Adrenergic Agonist, Nonsteroidal Anti-inflammatory Drug End: 31-02-7808vuhp 1 tablet by mouth every twelve hours in the morning pseudoephedrine-Naproxen Na ER 120-220 MG tablet sustained-release 12 hour Take 1 tablet by mouth in the morning and 1 tablet before bedtime. 2025 Discontinuedsaw palmetto (Serenoa repens) 450 MG capsule (13 sources) End: 75-67-5629hxt palmetto (Serenoa repens) 450 MG capsule as directed Orally 2025 Discontinuedsaw palmetto (Serenoa repens) 450 MG capsule as directed Orally Activesoybean lecithin 1200 mg oral capsule (13 sources) End: 75-20-1257qufm 1 capsule by mouth once dailyLecithin 1200 MG capsule Take 1 capsule every day by oral route. 2025 Discontinuedvitamin b12 1 mg oral tablet (20 sources)Vitamin B12 End: 96-19-2902jkny 1 tablet by mouth in the morningcyanocobalamin (Vitamin B- 12) 1000 MCG tablet Take 1,000 mcg by mouth in the morning. 2025 Dis continued End: 17-13-7385craktygavyztfj (Vitamin B-12) 500 MCG tablet 1 (one) time each day at the same time. 2025 Discontinuedzonisamide 25 mg oral capsule (7 sources)Anti-epileptic Agent End: 56-04-0460osme 1 capsule by mouth in the morning, then take 1 capsule by mouth at bedtimezonisamide (ZONEGRAN) 25 mg capsule Take 1 capsule (25 mg total) by mouth in the morning and 1 capsule (25 mg total) before bedtime. 06/24/2024 Discontinued Problems Active Problems Problem ClassificationProblemDateDocumented DateEpisodic/ChronicAortic; peripheral; and visceral artery aneurysms (20 sources)Aneurysm of thoracic aorta; Translations: [Thoracic aneurysm without mention of rupture]Onset: 647735-19-9247PthnrrjOrznqdu dysrhythmias (20 sources)Atrial fibrillation; Translations: [Atrial fibrillation]Onset: 936634-87-7477VszwiafQyftggg obstructive pulmonary disease and bronchiectasis (20 sources)Chronic obstructive lung disease; Translations: [Chronic airway obstruction, not elsewhere classified]Onset: 01-22-2018 Resolved: 20-87-8403FiocrpvJqoauoomjjba of device; implant or graft (20 sources)Arteriosclerosis of coronary artery bypass graft; Translations: [Atherosclerosis of coronary arterybypass graft(s) without angina pectoris] Onset: 435675-76-6568HcsghaaKyggxlcmcp heart failure; nonhypertensive (14 sources)Chronic systolic heart failure; Translations: [Chronic systolic (congestive) heart failure]Onset: 08-16-2024 Resolved: 742505-56-6709IkugtocDkvaxmkx atherosclerosis and other heart disease (18 sources)Coronary arteriosclerosis; Translations: [Coronary atherosclerosis of unspecified type of vessel, [place] or graft]Onset: 08-16-2024 Resolved: 663517-44-9781SpltllmJxsrfxuye of lipid metabolism (20 sources)Mixed hyperlipidemia; Translations: [Mixed hyperlipidemia]Onset: 06-24-2024 Resolved: 767770-64-0916NpnqmybHgqnycfzi hypertension (20 sources)Hypertensive disorder; Translations: [Unspecified essential hypertension]Onset: 06-24-2024 Resolved: 339689-49-6788JvhaufdLinyumjcy of skin (4 sources)H/O Malignant melanoma; Translations: [Personal history of malignant melanoma of skin]EpisodicMycoses (2 sources)Pain in toe; Translations: [Tinea unguium]37-43-8079IecgwnquUkgkb aftercare (4 sources)Encounter for therapeutic drug level monitoring; Translations: [ENC THERAPEUTC DRUG LEVL MONITORING]Onset: 76-38-9072NixmmpwsOmpib and ill-defined heart disease (1 source)Heart disease, unspecified; Translations: [Heart disease, unspecified] Onset: 27-36-4732UflvxsuQpcbu and ill-defined heart disease (5 sources)Left ventricular cardiac dysfunction; Translations: [Heart disease, unspecified]Onset: 686206-07-0521DrxanroLtoyn ear and sense organ disorders (4 sources)Otorrhea [...] system disorders (19 sources)Neuropathy; Translations: [Polyneuropathy, unspecified]Onset: 554718-63-8552AkbrhyiOahvp nervous system disorders (20 sources)Polyneuropathy; Translations: [Polyneuropathy, unspecified]Onset: 06-27-2023 Resolved: 362205-23-9369SikeyjoFighx nervous system disorders (3 sources)Carpal tunnel syndrome of left wrist; Translations: [Carpal tunnel syndrome, left upper limb]72-58-8061DdkqouaWrogt nervous system disorders (6 sources)Tremor; Translations: [Tremor, unspecified]25-57-8707QfrezqjlJdbxv nutritional; endocrine; and metabolic disorders (2 sources)Morbid (severe) obesity due to excess calories; Translations: [Morbid (severe) obesity due to excess calories]Onset: 18-57-1667OjldujrWcmjg nutritional; endocrine; and metabolic disorders (2 sources)Body mass index (BMI) 35.0-35.9, adult; Translations: [Body mass index (BMI) 35.0-35.9, adult]Onset: 48-96-4868GiujngaQcvrs screening for suspected conditions (not mental disorders or infectious disease) (2 sources)Abnormal result of other cardiovascular function study; Translations: [Abnormal result of other cardiovascular function study]Onset: 04-06-2025 EpisodicOtitis media and related conditions (4 sources)Dysfunction of right eustachian tube; Translations: [Unspecified Eustachian tube disorder, right ear]26-60-0678XqgkufhaPmpyamzbsi and visceral atherosclerosis (2 sources)Peripheral vascular disease; Translations: [Peripheral vascular disease, unspecified]78-19-8286LaneclmFhuq and subcutaneous tissue infections (2 sources)Paronychia of toe of left foot; Translations: [Cellulitis of left toe]31-03-4714TtmliuexFdabgadbyfq; intervertebral disc disorders; other back problems (20 sources)Degeneration of lumbar intervertebral disc; Translations: [DDD (degenerative disc disease), lumbar]Onset: 439854-81-6183Wlopwqq Unclassified (1 source)Neck Pain / 464764()Onset: 34-07-2183Wtenqrujbpto (1 source)Stiffness / 343()Onset: 67-24-6892Joxogmkwqmhe (1 source)Back Pain / 12()Onset: 16-22-5313Pzosyjyxjciu (1 source)Upper Extremity Weakness / [id number]()Onset: 93-87-4644Xipvkdmwwhtm (1 source)M54.2 - Cervicalgia,M51.369 - Other intervertebral disc degeneration, lumbar region without mention of lumbar back pain or lower extremity pain,M54.17 - Radiculopathy, lumbosacral regionUnclassified (1 source)Aneurysm of the ascending aorta, without rupture; Translations: [Aneurysm of the ascending aorta, without rupture]Onset: 87-52-9081Ewzlnozafhmy (2 sources)Abnormal stress testOnset: 45-42-2770Mbpyjrmaeofc (1 source)Abdominal aortic aneurysm, without rupture, unspecified; Translations: [Abdominal aortic aneurysm, without rupture, unspecified]Onset: 12-31-2024 Unclassified (1 source)Obesity, class 2; Translations: [Obesity, class 2]Onset: 08-16-2024 Past or Other Problems Problem ClassificationProblemDateDocumented DateEpisodic/ChronicCardiac dysrhythmias (19 sources)Sinus tachycardia; Translations: [Tachycardia, unspecified]Onset: 01-22-2018 Resolved: 538894-35-8455GgnlclypEaumgafz, including migraine (20 sources)Headache; Translations: [Occipital headache]Onset: 04-08-2018 Resolved: 058346-82-4515GcodziypUvwdnrdshdjh with complications and secondary hypertension (8 sources)Hypertensive heart failure; Translations: [Hypertensive heart disease with heart failure]Onset: 2025 Resolved: 101809-91-3274OmvfklaGdknxqbvklxbds (8 sources)Arthritis; Translations: [Unspecified osteoarthritis, unspecified site]Onset: 08-16-2024 Resolved: 457654-02-6297IbwbnfrDatgi aftercare (12 sources)Long-term current use of anticoagulant; Translations: [snf (current) use of 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]Onset: 08-16-2024 Resolved: 773178-89-8307NlittuadEjjnm aftercare (2 sources)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; Translations: [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]Onset: 04-03-4707OsuxxacjGnqjp gastrointestinal disorders (19 sources)Celiac disease; Translations: [Celiac disease]Onset: 03-04-2019 Resolved: 928909-07-1389QhxkfxnTtfxl male genital disorders (8 sources)Male erectile dysfunction, unspecified; Translations: [Impotence of organic origin]Onset: 08-16-2024 Resolved: 035568-94-4442XgmcdipBwnsn nervous system disorders (20 sources)Paresthesia; Translations: [Paresthesia of skin]Onset: 01-20-2024 62-36-7760CpgdhrqlRptco non-traumatic joint disorders (8 sources)Pain in wrist; Translations: [Pain in unspecified wrist]Onset: 08-16-2024 Resolved: 157747-49-6662SwjgtnmuNlltp nutritional; endocrine; and metabolic disorders (8 sources)Severe obesity; Translations: [Class 2 severe obesity due to excess calories with serious comorbidity and body mass index (BMI) of 35.0 to 35.9 in adult]Onset: 08-16-2024 Resolved: 579770-07-4952GrmdehgZuzcxkmm codes; unclassified (20 sources)History of maze procedure for atrial fibrillation; Translations: [Other specified postprocedural states]Onset: 496116-31-0440Enxiqepl Screening and history of mental health and substance abuse codes (1 source)Personal history of nicotine dependence; Translations: [PERSONAL HISTORY OF NICOTINE DEPEND]Onset: 47-40-5241MsfyqcmnBewmrcoonjp; intervertebral disc disorders; other back problems (20 sources)Cervicalgia; Translations: [Neck pain]Onset: 04-08-2018 Resolved: 308781-82-0859YdzyjocsPxvpcjzwzmfw (1 source)Aneurysm of the ascending aorta, without rupture; Translations: [Aneurysm of the ascending aorta, without rupture]Onset: 85-61-3507Iedowvkfpzod (1 source)Abdominal aortic aneurysm, without rupture, unspecified; Translations: [Abdominal aortic aneurysm, without rupture, unspecified]Onset: 12-31-2024 Unclassified (1 source)Obesity, class 2; Translations: [Obesity, class 2]Onset: 08-16-2024 Results Test NameValueInterpretationReference QsmwuUqhffkkw74nv [id number] Tari Hagan MA Good lipids and LFTs, continue atorvastatin and recheck in 6 months LVM to advise patient of his lab results per Dr. Whaley request.Normal [facility] TownshipUrine Cultureon 31-33-1313Hhpqzupv identified Cx Nom (U)No Growth 2 Days PERFORMED BY: [place] [address] PATHOLOGIST ELECTROMECHANICAL ENGINEER MICHEL PACHECO M.D.NormalShorepoint Health Punta Gorda Physician GroupComment on above: Performed By: #### CUU #### [place] [address] USAOffice Visiton 61-51-0458Qqzvtm-up [id number] Elise Tabor 1960 M Date Provider Department Center 05/27/2025 65277-EPOLFOBENNY GARZA Family History Problem Relation Age of Onset Coronary artery disease Mother Coronary artery disease Father Family Status - Relation Status Age at Mother Father Sister Alive Level of Service:49586 DC OFFICE/OUTPATIENT ESTABLISHED MOD MDM 30 MIN Reason for Visit and Comments: Follow-up [600256] - Patient is here today for a follow up s/p cath. Patient states heart desir he feels well. Patient states he fell around labor day and possibly tore a hamstring. Post-Cath [731] Coronary Artery Disease [187] Hyperlipidemia [182] Hypertension [240733] Thoracic aortic aneurysm without rupture [Other] Cardiomyopathy [104] Atrial Fibrillation [80] Congestive Heart Failure [127][facility] 56-20-9896CNEU Attestation signed by Juan Flores MD at [...] Celiac disease 08/16/2024 Coronary artery disease involving [place]sp[place] coronary artery of re[place] heart without angina pectoris 08/16/2024 Erectile dysfunction 08/16/2024 Pain in wrist 08/16/2024 Peripheral polyneuropathy 08/16/2024 Cardiomyopathy, ischemic 08/16/2024 Chronic systolic heart failure (CMS/HCC) 08/16/2024 Chronic anticoagulation 08/16/2024 Pure hypercholesterolemia 08/16/2024 Class 2 severe obesity due to excess calories with serious comorbidity and body mass index (BMI) of 35.0 to 35.9 in adult ([facility]) 08/16/2024 Mixed hyperlipidemia 06/24/2024 Essential hypertension 06/24/2024 DDD (degenerative disc disease), lumbar 01/20/2024 Neuropathy 01/20/2024 Paresthesia 01/20/2024 History of maze procedure 05/20/2022 Paroxysmal A-fib ([facility]) 05/20/2022 Thoracic aortic aneurysm without rupture 05/20/2022 Cervicalgia 04/08/2018 Headache in back of head 04/08/2018 Abnormal cardiovascular stress test 04/05/2025 Allergies: Allergies[2] 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 Lars Saleh PGY-4 Chalk Tester [facility] [1] Past Medical History: Diagnosis Date Abnormal ECG Aneurysm Arrhythmia Atrial fibrillation ([facility]) Cardiomyopathy ([facility]) COPD (chronic obstructive pulmonary disease) ([facility]) Coronary artery disease Hyperlipidemia Hypertension [2] No [...] by mouth 3 times (more content not included)...[facility] HospitalHPon 12-82-9051JVM&P reviewed. The patient was examined and there are no changes to the H&P. Will proceed with coronary angiography for further evaluation of abnormal stress test. Consent for blood products obtained. Risks, benefits, and alternatives to procedure discussed with patient in detail who expressed understanding and agreed to proceed.[facility] HospitalNURSNOTEon 04-21-2025 NURSNOTERN educated pt on d/c [...] wheeled off of unit with all of belongings.[facility] HospitalNURSNOTEPatient requesting resp do his DuoNeb nebulizer prior to having his cath done. Resp slate splitting supervisor called to have the treatment done - states someone will be down as soon as possibleNoKindred HealthcareResults Follow-Upon 75-92-4432Edtggwc Follow-[id number] Elise Tabor 1960 M Date Provider Department Center 04/21/2025 03717-JZOWDFBENNY DIAZ [facility] [place] HeartVAS Family History Problem Relation Age of Onset Coronary artery disease Mother Coronary artery disease Father Family Status - Relation Status Age at Mother Father Sister AliveNoOhioHealth O'[facility] 18-93-3621HNFdhoqgty Office Cardiology Clinic Note Reason for cardiology [...] Disp: , Rfl: theop (more content not included)...[facility] Office Visiton 23-51-2172Rycolo-up [id number] Elise Tabor 1960 M Date Provider Department Center 04/14/2025 13722-HEYXVLBENNY GARZA [facility] Family History Problem Relation Age of Onset Coronary artery disease Mother Coronary artery disease Father Family Status - Relation Status Age at Mother Father Sister Alive Level of Service:54062 DC OFFICE/OUTPATIENT ESTABLISHED MOD MDM 30 MIN Reason for Visit and Comments: Follow-up [892144] Abnormal stress test [Other] Cardiac Cath scheduled 04/28/2025 [Other] Coronary Artery Disease [187] Hyperlipidemia [182] Congestive Heart Failure [127] Hypertension [957506] COPD [313] Home o2 3lpm via N/C 31/03 [Other]NormalK[facility] Township36on 31-72-462313GltuyMD Tari Hagan MA Overall echo is normal with minor valvular heart disease LVM to advise patient of Dr. Diaz's findings.[facility] HospitalOrders Onlyon 44-60-1287Nlgmnu [id number] Elise Tabor 1960 M Date Provider Department Center 04/05/2025 928-DANNI THOMAS [facility] Family History Problem Relation Age of Onset Coronary artery disease Mother Coronary artery disease Father Family Status - Relation Status Age at Mother Father Sister AliveCorey HospitalResults Follow-Upon 72-85-7199Uvncpgr Follow-[id number] Elise Tabor 1960 M Date Provider Department Center 04/02/2025 BENNY NICOLE [facility] [place] HeartVAS Family History Problem Relation Age of Onset Coronary artery disease Mother Coronary artery disease Father Family Status - Relation Status Age at Mother Father Sister AliveNormalULutheran HospitalOrders Onlyon 03-21-2025 Orders [id number] Elise Tabor 1960 M Date Provider Department Center 03/21/2025 I9039-UDEPQUYS, HISTORICAL [facility] Family History Problem Relation Age of Onset Coronary artery disease Mother Coronary artery disease Father Family Status - Relation Status Age at Mother Father Sister AliveNoKindred Healthcare36on 89-04-157842Apihyxvgq lab results from 01/19/2025 and echo from [...] labs prior to apt in Apr-May 2025. [facility] HospitalOrders Onlyon 79-81-7289Doyxfq Only [id number] Elise Tabor 1960 M Date Provider Department Center 02/04/2025 F1714-NXHTUJOD, HISTORICAL SHAVON [place] Family History Problem Relation Age of Onset Coronary artery disease Mother Coronary artery disease Father Family Status - Relation Status Age at Mother Father Sister AliveNormalUniversKettering Health – Soin Medical CenterOffice Visiton 12-31-2024 Follow-up [id number] Elise Tabor 1960 M Date Provider Department Center 12/31/2024 01485-RMOTSKBENNY DIAZ Family History Problem Relation Age of Onset Coronary artery disease Mother Coronary artery disease Father Family Status - Relation Status Age at Mother Father Sister Alive Level of Service:23849 DC OFFICE/OUTPATIENT ESTABLISHED MOD MDM 30 MIN Reason for Visit and Comments: Coronary Artery Disease [187] Hyperlipidemia [182] Hypertension [193352][facility]36on Regarding echo and CTA chest performed [...] increasing atorvastatin per Dr. Diaz. He verbalized understanding.Corey HospitalOffice Visiton 71-70-0611Vmwlqh-up [id number] Elise Tabor 1960 M Date Provider Department Center 08/16/2024 54102-GQOGMGBENNY DIAZ Family History Problem Relation Age of Onset Coronary artery disease Mother Coronary artery disease Father Family Status - Relation Status Age at Mother Father Level of Service:86918 DC OFFICE/OUTPATIENT NEW MODERATE MDM 45 MINUTES Reason for Visit and Comments: Atrial Fibrillation [80] - Had EKG at last apt with [facility] in Jun 2024. Denies chest pain and bleeding on Eliquis. Coronary Artery Disease [187] - CABG and MAZE in 2016 Hypertension [803993] Hyperlipidemia [182] COPD [313] [facility] Ordered By: Juana Hercules on 56-52-2739TmnRppyui Health SystemEMG 1 Extremeityon 25-69-0302UUSC HealthcareNVC 7-8 Nerveson 66-95-0227MGZC Healthcare THEOPHYLLINEon 11-47-8272MXECKXIFLNJY09.0 ug/xUReoykp95.0-20.0[facility] Medical CenterComment on above:Performed By: #### BRYAN #### [facility] [address] [address] [address] Karen LeeTHEOPHYLLINEon 25-23-6563RBXDEFRZROLD6.3 ug/mLCritically low 10.0-20.0[facility] Medical CenterComment on above:Performed By: #### BRYAN #### [facility] [address] [address] [address] Karen Lu Pressure Cuff Sizeon 57-89-6543Ezlv risk assessmenta) No falls within the last yearMG-[facility] Work Phone: Tobacco use status CPHSb) NoMG[facility] Work Phone: blood Pressure Cuff SizeLargeMG[facility] Work Phone: Office Visit (Thoracic and Esophageal Surgery)on 16-25-9227Colycv-up visitDiagnoses/Problems Assessed Atrial fibrillation (427.31) (I48.91) COPD [...] Activated Vitals Vital Signs Recorded: 29May2022 02:58PM Tuomoynwtad94.2 F Heart Rate91 Vuxdpkpvckj37 Hieiovti394 Ylhmkrhph78 Blood Pressure Cuff SizeLarge Height5 ft 7.32 in Cjnefo306 lb 7 oz BMI Rmlxenqsdl08.15 kg/m2 BSA Calculated2.19 Tobacco Useb) No Falls Screening (Age 18+)a) No falls within the last year O2 Eeddkpehcu45, Nasal Cannula Pain Scale7 Physical Exam The [...] MD; May 29 2022 3:24PM EST (Author) [facility] Referral Letteron [id number] Referral LetterMr. Tabor is referred for consideration [...] 29 2022 3:24PM EST (Author) [facility] TouchworksCT LUNG CANCER SCREENINGon 16-49-8749SG LUNG CANCER SCREENING EXAMINATION: CT LUNG CANCER [...] Electronically authenticated by: ALEYDA DYER Date: 2022-04-26 16:20[facility] HospitalHEMOGLOBINon 91-25-9493Rifnugfqqn (Bld) [Mass/Vol]13.6 g/dL Critically low14.0-18.0[facility] Medical CenterComment on above:Performed By: #### HGB #### [facility] [address] [address] [address] Karen Pedroza Noteson 71-88-2010Cjkiqyf mass concEncaurora las encinas hospitaler Department: [facility]AB THERAPYProgress Notes by [...] Pt self discharged with last txsession with FINISH PATCHER.Patient is being discharged due to not returning to therapy and/or Plan of Care being .Recommend patient continue with HEP previously instructed on during therapy as appropriate.Patient may be reinstated in therapy upon new evaluation and orders from the physician.Thank You.[facility] Mentor HospitalProgress Noteson 04-23-2018 Protein mass concEncounter Department: [facility]AB THERAPYProgress Notes by Berlin Valle PTA at 04/23/2018 9:00 AMAuthor: Berlin Valle PTAService: (none)Author Type: Physical Therapy AssistantFiled: 04/23/2018 9:46 AMEncounter Date: 04/23/2018Status: SignedEditor: Berlin Valle PTA (Physical Therapy Assist ant)Physical Therapy Treatment NoteVisit Number: 5Encounter diagnosis:ICD-10-CM1.XyjcbnfqarkI31.22.Headache in back of iedqQ80Ncdjyhc Medical Diagnosis:SUBJECTIVE: Pt requests today being his [...] t-band- Scap retract x15- B UE ext u25Zndh tucks x15GTB rows 7z37Jftweb- STM along c-spine paraspinals, UT, and levator [...] Treatment Time: 10Total Treatment Time: [address] [facility] Progress Noteson 03-48-4701OybteteMayo Memorial Hospital Department: [facility]AB THERAPYProgress Notes by Berlin Valle PTA at 04/21/2018 9:00 AMAuthor: Berlin Valle PTAService: (none)Author Type: Physical Therapy AssistantFiled: 04/21/2018 9:46 AMEncounter Date: 04/21/2018Status: SignedEditor: Berlin Valle PTA (Dialysis Chief Equipment Technician)Physical Therapy Treatment NoteVisit Number: 4Encounter diagnosis:ICD-10-CM1.HsbeawbqvqaA76.22.Headache in back of keaiR78Nfwombp Medical Diagnosis: CervicalgiaSUBJECTIVE:Compliance with HEP: Pt states [...] 30'Green t-band- Scap retract x15- B UEext v22Isjp tucks x15GTB rows 8c71Ipbrjo- STM along c-spine paraspinals, UT, and levator [...] in rotation and SB without increase in pain.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 Elizabeth Boardman HospitalProgress Noteson 04-16-2018 Protein mass concEncounter Department: [facility]AB THERAPYProgress Notes by Collette Pisano PTA at 04/16/20189:00 AMAuthor: Collette Pisano PTAService: (none)Author Type: Physical Therapy AssistantFiled: 04/16/2018 12:11 PMEncounter Date: 04/16/2018Status: SignedEditor: Collette Pisano PTA (Physical Therapy As sistant)Physical Therapy Treatment NoteVisit Number: 3Encounter diagnosis:ICD-10-CM1.DonsuyobzdoL41.22.Headache in back of suimC64Txxgihy Medical Diagnosis: CervicalgiaSUBJECTIVE:Compliance with HEP:Patient reports compliance [...] t-band- Scap retract x15- B UE ext w60Telk tucks x15GTB rows 1q55Kqqpdl- STM along c-spine paraspinals, UT, and levator [...] Treatment Time: 28Total Treatment Time: [address] [facility] HospitalProgress Noteson 54-62-3681CpkiiihMayo Memorial Hospital Department: [facility]AB THERAPYProgress Notes by Berlin Valle PTA at 04/10/2018 9:00 AMAuthor: Berlin Valle PTAService: (none)Author Type: Physical Therapy AssistantFiled: 04/10/2018 10:21 AMEncounter Date: 04/10/2018Status: SignedEditor: Berlin Valle PTA (Dialysis Chief Equipment Technician)Physical Therapy Treatment NoteVisit Number: 2Encounter diagnosis:ICD-10-CM1.ZxlhupdycpkG77.22.Headache in back of frnuX87Jyllurr Medical Diagnosis: CervicalgiaSUBJECTIVE:Compliance with HEP: Pt reports [...] UT stretch 3x 30'Chin tucks x15GTB rows 6g77WGT: chin tuck, UT andLS stretch, scap squeeze.Mechanical [...] in rotation and SB without increase in pain.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 Operator Goals: LTG to be met by [...] Treatment Time: 30Total Treatment Time: 45 PT TreatmentOhiohealth Berger HospitalProgress Noteson 31-92-4515Fckvptd [facility] concEncounter Department: [facility]AB THERAPYProgress Notes by Jacquelyn Rivera PT at 04/08/2018 1:45 PMAuthor: Jacquelyn Rivera PTService: (none)Author Type: Physical TherapistFiled: 04/08/2018 6:47 PMEncounter Date: 04/08/2018Status: SignedEditor: Jacquelyn Rivera PT (Physical Therapist)Physical Therapy EvaluationEncounter diagnosis:ICD-10-CM1.DcyyvrorygfO54.22.Headache in back of fcvaV84Cguogiidk provider: Mellisa Clarke,*Primary Medical Diagnosis: CervicalgiaPlan of [...] Home: 15Prior Level of Functioning: Level of [place]: Modified IndependentCurrent Level of Functioning: Outcome Scor e: NDI (26 raw score NDI, 52% disability) Functional deficits: reports no functional deficits, ableto do everything just withincreased pain. Level of [place]: Modified IndependentSleep Status/Sleep Hygiene: Preferred Sleep Position: [...] codes)G8978 Mobility Current Status; Severity: CK 40-59% vbvkematF6536 Mobility Goal Status; Severity: CI 1-19% impairedOutcome measure(s)/Test(s) used/Result(s): 52% disability on NDI.Clinical Judgment: Moderate to severe impairement, decreased neck ROM and strength, tenderness totrigger points moderateNew Category to Dhzwgc-Gt-Suul only?:NoEvaluation Breakdown DescriptionPatient HistoryComorbiditiesEnvironmental/Personal factorsLearning/CognitionDomestic life*Issue must [...] in rotation and SB without increase in pain.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 Operator Goals: LTG to be met by [...] Time: 60Time in: 1:44Time Out: 2:45 PT alCleveland Clinic Mentor Hospital Vital Signs Date TimeVital SignValuePerforming IzmrubdbdQxzlmsco06-18-9744 09:50-0400Body yninfg689.8 cmYuri Rodriguez DPM Work Phone: [facility] HospitalFtebwsbfzm41-96-9647 09:50-0400Body mass index (BMI) [Ratio]35.87 kg/j2XerdvwpdYuri Rodriguez DPM Work Phone: [facility] HospitalNnpklsmyhf72-25-6133 09:50-0400Body .4 kgFaheemcorbyivonne Rodriguez DPM Work Phone: [facility] HospitalLvntspjqxw61-44-4640 09:50-0400Respiratory rate18 /Gaylacorbyivonne Jae DPM Work Phone: [facility] HospitalFrylkhhxlm48-75-1515 11:48-0400Body krotng509.13 kgDokevin Zayas MD Work Phone: [facility]10-07-2025 11:48-0400 Heart rate75 /Roslyn Zayas MD Work Phone: [phone] [place], [place] 6556510-07-2025 11:48-0400 Inhaled oxygen flow rate3 L/Roslyn Zayas MD Work Phone: [phone] [place], [place] 6556510-07-2025 11:48-0400 Respiratory rate16 /Roslyn Zayas MD Work Phone: [phone])555-[address] [place], [place] [address]10-07-2025 11:48-0400 SaO2% (BldA) [Mass fraction]93 %Mario Zayas MD Work Phone: [phone])005-[address] [place], [place] 6556508-08-2025 09:22-0400 Body wondui519.8 cmPaul Biedenbach DO Work Phone: [facility] HospitalCcyqqipeuo10-13-1656 09:22-0400Body mass index (BMI) [Ratio]35.87 kg/m2Paul Biedenbach DO Work Phone: [facility] HospitalXuznevtuds09-15-0925 09:22-0400Body .4 kgPaul Biedenbach DO Work Phone: [facility] HospitalElwxjaudjh17-89-2635 09:00-0400Body .8 cmPaul Biedenbach DO Work Phone: [facility] HospitalIalpolntol87-27-4208 09:00-0400Body mass index (BMI) [Ratio]35.87 kg/m2Paul Biedenbach DO Work Phone: [facility] HospitalWycekkfaor97-85-6980 09:00-0400Body mchwee475.4 kgPavesna Krishnan DO Work Phone: [facility] HospitalRmdralmhfi04-89-0007 10:42-0400Body dckunz596.8 Yair Hall PA Work Phone: [facility] CenterOajkwsldli50-86-5574 10:42-0400Body mass index (BMI) [Ratio]35.87 kg/m2Linsey Hall PA Work Phone: [facility] HospitalGzwsauxhhw30-30-4955 10:42-0400Body odchuj822.4 Moira Hall PA Work Phone: [facility] HospitalTumgqmhzvk62-35-9988 10:42-0400Diastolic blood dajosbgq57 mm[Hg]Linsey Hall PA Work Phone: [facility] HospitalWrlwowsrwu19-04-7966 10:42-0400Heart rate75 /min Linsey Hall PA Work Phone: [facility] HospitalKzdcsunuhv44-43-9054 10:42-0400Respiratory rate16 /minLinsey LI Work Phone: [address] [address]Conowfamkf26-21-9134 10:42-5315HrR5% (BldA) [Mass fraction]94 %Linsey Hall PA Work Phone: [facility] HospitalVdzwtxhgix82-73-1018 10:42-0400Systolic blood rrtwnixl030 mm[Hg]Linsey Hall PA Work Phone: [facility] HospitalTfxcwhbusg09-90-6568 13:52-0400Body uaygub193.7 Kristi Taylor MD Work Phone: [facility]10-17-2024 13:52-0400Body mass index (BMI) [Ratio]37.26 kg/i2ShkgwGillian Taylor MD Work Phone: [facility]10-17-2024 13:52-0400Body luwtye613.13 Rafael Taylor MD Work Phone: [facility]10-17-2024 13:52-0400Diastolic blood izdruvap08 mm[Hg]Gillain Taylor MD Work Phone: [facility]10-17-2024 13:52-0400Heart rate 74 /minGillian Taylor MD Work Phone: [facility]10-17-2024 13:52-5458IrJ5% (BldA) [Mass fraction]94 %Gillian Taylor MD Work Phone: [facility]10-17-2024 13:52-0400Systolic blood zaxiuaxv577 mm[Hg]Gillian Taylor MD Work Phone: [facility]10-02-2024 11:17-0400Body olerue365.7 cmAakash LI Work Phone: [facility] HospitalMuaqdtooly69-61-7673 11:17-0400Body mass index (BMI) [Ratio]38.01 kg/m2Linsey LI Work Phone: [facility] HospitalMhukumvixe48-72-0858 11:17-0400Body xwomiu181.4 kgLinsey LI Work Phone: [facility] HospitalCjvydrnfcz50-88-1449 11:17-0400Diastolic blood mmfnqgoa11 mm[Hg]Linsey LI Work Phone: [facility] ViaN[facility] CenterMlcyaskwiw68-28-2864 11:17-0400Heart rate78 /min Linsey LI Work Phone: [facility] ViaN[facility] Medical CenterGzlctdamhq36-06-7649 11:17-0400Respiratory rate16 /minLinsey LI Work Phone: [facility] CenterGeaduuqexv80-05-4925 11:17-6029InS8% (BldA) [Mass fraction]93 %Linsey LI Work Phone: [facility] CenterZxzvhqufax93-08-6107 11:17-0400Systolic blood pgbkrgyy351 mm[Hg]Linsey Hall PA Work Phone: [facility] CenterXcaagxtxwa89-87-1541 14:58-0400Body fkyfez889.99 cmReferring Provider UnknownMG[facility] Work Phone: 1(451) 781-877809-21-2022 14:58-0400Body mass index (BMI) [Ratio] 37.15 kg/v2Advqdqmdq Provider UnknownMG[facility] Work Phone: 1(479) 887-844109-21-2022 14:58-0400Body surface area Derived from formula2.19 u6Fsbbnyrmm Provider UnknownMG[facility] Work Phone: 1(779) 912-124209-21-2022 14:58-0400Body ruflebavlug07.2 [degF] Referring Provider UnknownMG[facility] Work Phone: 1(456) 644-990909-21-2022 14:58-0400Body aqrhgo648.61 kgReferring Provider UnknownMG[facility] Work Phone: 1(996) 182-512009-21-2022 14:58-0400Diastolic blood rgpsqkip32 mm[Hg] Referring Provider UnknownMG[facility] Work Phone: 1(189) 685-589409-21-2022 14:58-0400Heart rate91 /minReferring Provider UnknownMG[facility] Work Phone: 1(900) 186-181909-21-2022 14:58-0400Respiratory rate18 /minReferring Provider UnknownMG[facility] Work Phone: 1(767) 122-539009-21-2022 14:58-7312CvI2% (BldA) [Mass fraction]93 % Referring Provider UnknownMG[facility] Work Phone: 1(858) 976-971009-21-2022 14:58-0400Systolic blood vfpxtvwi496 mm[Hg] Referring Provider UnknownMG[facility] Work Phone: 1(405) 920-572309-21-2022 14:58-79752 1Referring Provider UnknownMG- [facility] Work Phone: comment on above:PainScale Encounters Encounter DateEncounter TypeCare ProviderFacilityStart: 06-23-2025 End: 75-65-5483Zdyqok flowsheetYuri Rodriguez DPM Work Phone: [facility] CI PODIATRYStart: 06-23-2025 End: 90-36-6559Ncmhxq flowsStan Rodriguez DPM Work Phone: [facility] CI PODIATRYStart: 06-23-2025 End: 14-64-9505jnxekbgvcsZUOISTDD A BROWNNot AvailableStart: 06-23-2025 End: 06-03-5624Hecuvp outpatient new 30 minutesYuri Rodriguez DPM Work Phone: [facility] CI PODIATRYComment on above:PVD (peripheral vascular disease); Other polyneuropathy; Pain due to onychomycosis of toenails of both feet; Paronychia, toe, leftStart: 06-14-2025 End: 99-16-6074amvwvuecyyJkhzfwc M Hoy MD Work Phone: [facility] Work Phone: Start: 06-14-2025 End: 87-15-5714Ptalemk encounter Goyo Mccoy CMBI-EIK-I-FPG [facility] [place] Work Phone: Start: 06-14-2025 End: 66-80-3153dxikwbohztMzmtynp M Hoy MD Work Phone: [facility] Work Phone: Start: 06-14-2025 End: 12-69-0805Zmuhculu ReferredMario Hogan MD-LAB [facility] [place] [facility] Start: 05-27-2025 End: 95-34-3629cxplxawjfqMRZLO [facility] Hospitaltart: 69-78-5762qnudbwtgycWSYHXHQXVSI [facility] Hospitaltart: 04-21-2025 End: 03-93-9130ktrcnhovouQLNWFHXXLCT [facility] Start: 04-15-2025 End: 76-64-2534Nyzbkn flowsHesham Krishnan DO Work Phone: [facility] OtolaryngologyStart: 04-15-2025 End: 18-55-0614Peztor flowsheetPaul S Biedenbach DO Work Phone: [facility] OtolaryngologyStart: 04-15-2025 End: 29-12-3867Dhngaf outpatient visit 25 minutesPaul S Biedenbach DO Work Phone: [facility] OtolaryngologyComment on above:Otorrhea of right ear (Primary Dx); Dysfunction of right eustachian tube; Chronic anticoagulationStart: 04-15-2025 End: 39-16-2549vkktsjyfnyXWBY S BIEDENBACHNot AvailableStart: 04-14-2025 End: 25-72-1159fmcywzpbtrCPYFKMercy Health Springfield Regional Medical Centertart: 2025 End: 53-90-7223Nyspfe flowsheetPaul S Biedenbach DO Work Phone: no ENT SANDUSKYStart: 2025 End: 70-34-6371Bjtwox flowsheetPaul S Biedenbach DO Work Phone: NO ENT SANDUSKYStart: 2025 End: 15-32-3810Pbumah outpatient visit 15 minutesPaul S Biedenbach DO Work Phone: [facility] ENT SANDUSKYComment on above:Dysfunction of right eustachian tube (Primary Dx); Otorrhea of right ear; Chronic anticoagulationStart: 2025 End: 94-92-7293apyyfvdzuiXTMN S BIEDENBACHNot AvailableStart: 12-31-2024 End: 76-85-9379ntcwjckicsLIRTEMercy Health Springfield Regional Medical Centertart: 12-27-2024 End: 48-09-2709Qpzisu flowsheetAngela Lowe PA Work Phone: aNA PRESTONtart: 12-27-2024 End: 36-42-6538Uskhbp flowsheetAngela Lowe PA Work Phone: ana BELLEVUEStart: 12-27-2024 End: 89-13-7761Vaijkh outpatient visit 15 minutesLinsey LI Work Phone: ana ASHISHUEComment on above:Degeneration of intervertebral disc of lumbar region with discogenic back pain and lower extremity pain (Primary Dx); Lumbosacral radiculopathy; Neck pain; Tremor; Chronic daily headacheStart: 12-27-2024 End: 07-82-9428dhxrvvvyrsTSYN HILLNot AvailableStart: 12-20-2024 End: 88-32-2331WyfvxnDuhrwak Hauler YOLANDAHARRIETT LUNAEVUEComment on above:DDD (degenerative disc disease), lumbar (Primary Dx); Lumbosacral radiculopathyStart: 11-25-2024 End: 74-56-8182Rwdvtiloi encounterJotyler Mauro [facility] Comment on above:transfering careStart: 11-09-2024 End: 10-52-2322PqszdwTurvabr P Kyser PA-C Work Phone: [facility] Physicians CardiologyComment on above:Med RefillStart: 09-07-2024 End: 47-10-1671AwehrvRnwj Hill PA Work Phone: noCT [place] [facility] R[facility]TEComment on above:DDD (degenerative disc disease), lumbar; Lumbosacral radiculopathyStart: 08-16-2024 End: 72-02-8832cvldqtpmnxLKNIHMercy Health Springfield Regional Medical Centertart: 07-29-2024 End: 13-53-0347KhhwbgTxbwuqwGriselda TOVAR Work Phone: [facility]erca Physicians CardiologyComment on above:Med RefillStart: 06-24-2024 End: 46-39-3674Ejpodc outpatient visit 25 minutesGillian Taylor MD Work Phone: Pro[facility] Centerca Physicians CardiologyComment on above: Coronary artery disease involving coronary bypass graft of [place] heart without angina pectoris (Primary Dx); Paroxysmal atrial fibrillation (CMS-HCC); Primary hypertension; Mixed hyperlipidemia; Left ventricular dysfunctionStart: 06-24-2024 End: 92-47-7560qyvjygqtznSPXLF German BONDRichwood Area Community Hospital HospitalStart: 06-23-2024 End: 95-68-5968Zmhehgvte encounterJuana Hercules CMAGrace Cottage HospitalMedica Physicians CardiologyStart: 06-09-2024 End: 02-79-6219Tnuvva outpatient visit 15 [facility]-hri hospitalMelitachina Rafael LI Work Phone: noms [place] STATE ROUTEComment on above:Degeneration of intervertebral disc of lumbar region with discogenic back pain and lower extremity pain (Primary Dx); Neck pain; Chronic daily headache; TremorStart: 06-08-2024 End: 18-34-5435Demrad Amelia Lackey MD Work Phone: noms [place] STATE ROUTEStart: 06-08-2024 End: 84-91-0005Dcxiuv Amelia Lackey MD Work Phone: noms [place] STATE ROUTEStart: 06-08-2024 End: 76-13-3177Eubdqxn encounter Alicia Lackey MD Work Phone: noms [place] STATE ROUTEComment on above:Carpal tunnel syndrome of left wrist (Primary Dx)Start: 05-21-2024 End: 72-83-2818ZxlfwmAwtlClay Soto Physicians CardiologyComment on above:Med RefillStart: 05-17-2024 End: 50-15-6169bmtlzhqbjwCRBVJE E OOSTRANOMS HealthcareComment on above:DDD (degenerative disc disease), lumbar; Lumbosacral radiculopathyStart: 05-14-2024 End: 90-31-7664Ckpruwrcd encounterJuana BurrMedica Physicians CardiologyStart: 04-30-2024 End: 46-75-9593Feahgqbbg encounterAshlee Soto [facility] Start: 02-18-2024 End: 73-90-1511TbrztsXxddogRosa Soto Physicians CardiologyComment on above:Med RefillStart: 01-24-2024 End: 30-93-4228DnsibhEbqffd D Grande MD Work Phone: [facility] Physicians CardiologyComment on above:Med RefillStart: 12-30-2022 End: 92-58-7382ewhnijfwraWYRGWK SAMSA .Facility:N6Yenwg: 12-17-2022 End: 84-89-7078epngcgfojcEDIUJT SAMSA .Facility:G4Xvrad: 30-46-2944YESUX Referring Provider UnknownMG-Pulm Sleep-[place] [address] Work Phone: Start: 76-02-4328Qkzlyv outpatient new 45 minutes Referring Provider UnknownMG-CT Surgery-[place] Work Phone: Start: 72-72-3229fsfutzelyuCyLeyla Peña Facility:CStart: 05-21-2022 End: 12-16-9935pgpmuxwbmrJNWYFZ SERVICES [facility]IANFac[facility]:X6Dodnp: 04-26-2022 End: 35-36-3807klzleutqdbJBTJIU SERVICES [facility]IANFac[facility]:G1Emdzg: 04-23-2018 End: 04-97-2575Inzeaco encounterSCOTT D Marion Hospitaltart: 04-21-2018 End: 44-61-1840Qowsepy encounterSCOMERRILL Demarco [facility] Hospitaltart: 04-16-2018 End: 54-38-0237Fpcajao encounterRADENIZ [facility] Francis Hospitaltart: 04-10-2018 End: 56-11-0543Pdfgzlx encounterSCOTT Dav [facility] Hospitaltart: 04-08-2018 End: 00-92-0033Vaqakod encounterSHERAlix LISA [facility] Patient encounter statusReferring Provider UnknownMG-Pulm Sleep-[place] 1800 Work Phone: Procedures DateProcedureProcedure DetailPerforming ClinicianStart: 20-69-7486Muehdz-up visitFollow-upSAMAR KHOURYStart: 63-42-4296Bex routine ecg w/least 12 lds w/i&r Gillian Taylor MD Work Phone: Start: 71-86-0260Sjdcho-up visitFollow-upLAURA German TAYLORStart: 06-08-2024 End: 22-63-7892Nkmcor emg ea extremty w/paraspinl area Ritesh Lackey MD Work Phone: Start: 96-62-3594Xkgtilj of coronary artery bypass graftingHx of CABGElise Borjas MD Work Phone: Cataract surgeryReferring Provider UnknownCoronary artery bypass graftReferring Provider UnknownHernia repairReferring Provider UnknownHistory of coronary artery bypass graftingHx of CABGNeisha Weathers RN History of coronary artery bypass graftingHx of CABGElise Borjas MD Work Phone: History of coronary artery bypass graftingHx of CABG Radha Griffin RNHistory of coronary artery bypass graftingHx of CABGPablo Zaragoza BATCH DUMPER-CLINICAL EDUCATOR Work Phone: History of coronary artery bypass graftingHx of CABG Keron Arreguin PA-C Work Phone: Prosthetic arthroplasty of shoulderReferring Provider UnknownTotal replacement of hipReferring Provider Unknown Plan of Treatment DateCare ActivityDetailAuthorStart: 14-03-2676ZEsU,Tdap and Td Vaccines (2 - Td or Tdap)DTaP,Tdap and Td Vaccines (2 - Td or Tdap)[facility] SystemStart: 10-17-2025 End: 34-16-0345Zxbtbpl encounter irsvbtxig20/09/2026 10:15 AM EST Office Visit [facility] [place] [facility] [address] [place] [address] Tree Krishnan, [address] [place] [address] [facility] [place] OtolaryngologyStart: 09-15-2025 End: 91-96-1866Mjcjaup encounter vfqvsvxuz55/08/2026 10:50 AM EST Procedure Visit [facility] [address] [place] [address] Yuri Rodriguez, DPM [address] [address] [place] [address] [facility] CI PODIATRYStart: 78-77-7822Nllab BMI ScreeningAdult BMI ScreeningProHolzer Medical Center – Jackson SystemStart: 82-57-4902Oefhwpq ScreeningTobacco ScreeningProHolzer Medical Center – Jackson SystemStart: 62-32-7733Aluuughv identified in Urine by CultureUrine [facility] Start: 62-55-7563Cwzhvjv referralCleveland Clinic [facility] Work Phone: Start: 02-34-4543Uzovk [facility] Centertart: 05-16-2025 End: 54-01-3472Dwgwnvp encounter zwtqyzqns66/08/2025 10:40 AM EDT Office Visit HARRIETT SANTIAGO [address] [place] [address] Linsey Hall PA [address] [place] [address] HARRIETT LUNAARTtart: 21-68-1214Dxzknnyin vaccinationNOMS HealthcareStart: 04-15-2025 End: 34-65-9472Hzsjzsr encounter procedureNOMS ENT SANDUSKYComment on above: ArrivedStart: 2025 End: 26-42-8701Vftjvgn encounter llueqzpww03/18/2025 9:15 AM EDT Office Visit [facility] SHAYNE ARGUELLES [address] [place] [phone] Tree Krishnan DO [address] [place] [address] ArrivedNOMS ENT SANDUSKYComment on above:ArrivedStart: 12-23-2024 End: 44-75-9694Xcgeaxi encounter jfffxfikh15/17/2025 10:40 AM EDT Office Visit HARRIETT SANTIAGO [address] [place] [address] Linsey Hall PA [address] [place] [address] HARRIETT JOHNSTONtart: 12-21-2024 End: 93-49-4221Xacnbym encounter jnanalzvu19/15/2025 10:40 AM EDT Office Visit NOMNigel [facility] [address] [place] [address] Linsey Hall PA [address] [place] [address] NOM [place] [facility] R[facility]TEStart: 76-51-6838Zzzhd BMI ScreeningAdult BMI ScreeningProHolzer Medical Center – Jackson SystemStart: 24-12-6620Vpdkjyh ScreeningTobacco ScreeningProSt. Mary's Medical Centertart: 06-24-2024 End: 12-25-5093JF Chest WO and CT angiogram Coronary arteries W contrast IVCT angiogram chest Imaging Routine Coronary artery disease involving coronary bypass graft of re[place]-sparks heart without angina pectoris Expected: 06/24/2024, Expires: 06/24/2025ProHolzer Medical Center – Jackson SystemComment on above:Expected: 06/24/2024, Expires: 06/24/2025Start: 06-24-2024 End: 55-76-7562Phhx complete W/O contrastEcho complete W/O contrast Echocardiography Routine Coronary artery disease involving coronary bypass graft of re[place]-sparks heart without angina pectoris Expected: 06/24/2024, Expires: 06/24/2025ProHolzer Medical Center – Jackson SystemComment on above:Expected: 06/24/2024, Expires: 06/24/2025Start: 06-24-2024 End: 10-22-4348Mqqbhzo encounter jdtfnijfe95/17/2024 2:00 PM EDT Office Visit [facility] [address] [place] [address] Gillian Taylor MD [address] [place] [address] [facility] CardiologyStart: 06-09-2024 End: 83-37-6065Clzrxmo encounter dmeunnzfz74/02/2024 11:20 AM EDT Office Visit NOM [place] [facility] [address] [place] [address] Linsey Hall PA [address] [place] [address] NOM [place] [facility] R[facility]TEStart: 06-08-2024 End: 68-89-9318Ognqeti encounter procedureNOMS [facility] ROUTEComment on above:ArrivedStart: 05-17-2024 End: 37-39-7411Ueyjdtzlbsbo / ancillary services cnwphoubdg25/09/2024 8:30 AM EDT Ancillary Procedure [facility] [address] [place] [address] Emely Cantu MD [address] [place] [address] [facility] CardiologyStart: 93-10-2157Zyjmeefme vaccinationNOCT HealthcareStart: 2010 Administration of varicella zoster vaccineZoster (Shingles) Vaccine (1 of 2) [facility] SystemStart: 00-42-6281Gzecybbicdoy Vaccine: 65+ Years (1 of 1 - PCV)Pneumococcal Vaccine: 65+ Years (1 of 1 - PCV)[facility] HealthcareStart: 57-94-7353RLvZ,Tdap and Td Vaccines (1 - Tdap)DTaP,Tdap and Td Vaccines (1 - Tdap)[facility] SystemStart: 03-73-0337Vpfjs BMI Follow Up PlanAdult BMI Follow Up PlanTuscarawas Hospital SystemStart: 90-98-4503Qbzaburuay Screening Depression ScreeningTuscarawas Hospital SystemStart: 34-52-8315Tsfiqmvco for malignant neoplasm of colonNOCT Healthcare End: 16-45-5001CCD panel - Blood by Automated countCBC Lab Routine Paroxysmal atrial fibrillation (CMS-HCC) 1 Occurrences starting 06/24/2024 until 06/24/2025 [facility] SystemComment on above:1 Occurrences starting 06/24/2024 until 06/24/2025efuroxime free [Mass/volume] in Serum or PlasmaSycamore Medical Center End: 03-06-7309Rfkuntallcarz metabolic 2000 panel - Serum or PlasmaCMP Lab Routine Primary hypertension 1 Occurrences starting 06/24/2024 until 06/24/2025 [facility] SystemComment on above:1 Occurrences starting 06/24/2024 until 06/24/2025 End: 92-31-6853Bqwgd panelLipid panel Lab Routine Mixed hyperlipidemia 1 Occurrences starting 06/24/2024 until 06/24/2025[facility] Work Phone: Comment on above:1 Occurrences starting 06/24/2024 until 06/24/2025Patient referralCleveland Clinic [facility] Pointe [facility] Work Phone: Pyridoxine [Mass/volume] in Serum or PlasmaSycamore Medical CenterUS.doppler Lower extremity arteryVascular US lower extremity arterial Doppler complete Vascular Ultrasound Routine PVD (peripheral vascular disease) Ordered: 06/23/2025[facility] Work Phone: Comment on above:Ordered: 06/23/2025[facility] Immunizations Immunization DateImmunizationNotesCare NvnduipuJxzanjvx80-51-6278Pyvazvxcg, injectable, Madin [place] Canine Kidney, preservative free, quadrivalentPaul [facility] DO Work Phone: Loopd ViaNevada Regional Medical CenterQlwajxssld12-88-6147neximdn toxoid, reduced diphtheria toxoid, and acellular pertussis vaccine, adsorbedPaul Biedbach DO Work Phone: [facility] HospitalVbigfctixo54-93-7822zvhifbftl virus vaccine, unspecified formulationNicUpland Hills Health09-15-2021influenza, high dose seasonal, preservative-freeCherokee Regional Medical Center09-15-2021 influenza virus vaccine, unspecified formulationElise Borjas MD Work Phone: [facility]02-17-2021Pfizer Purple Cap SARS-CoV-2 VaccinationNicUpland Hills Health01-13-2021Pfizer Purple Cap SARS-CoV-2 VaccinationNicMountain View Hospitaledy MANOM[facility] Payers DatePayer CategoryPayerPolicy [id number]-pay2023Medicare (Managed Care)HU[employer]NA MEDICARE ADVANTAGE [id number] 2020Medicare [id number] 2020Medicare HMOHUMANA MEDICARE Member Subscriber Plan / Payer (Effective 2019-Present) Name: Padilla Elise Wyatt Relation to Subscriber: Self Name: Padilla Elise Schneider Payer ID: [id number] (NAIC) Type: Not on file Address:[address] [place], [place] [id number] 2..1.922894.3.57[id number] 2..1.706833.3.57[id number] 2..1.921470.3.57[id number] 2..1.644486.3.57[id number] 2.16.840.1.367600.3.57[id number] 2.16.840.1.236970.3.57[id number] 2.16.840.1.326170.3.57[id number] 2..840.1.277498.3.57[id number] 2.16.840.1.534916.3.57[id number] 2.16.840.1.507223.3.57[id number] 2.840.1.775765.3.579.2.1259 [id number] 2.16840.1.430670.3.579.2.531 Social History DateTypeDetailFacilityStart: 03-15-2024 End: 95-20-1474Qtfcqu alcohol useSocial alcohol useTuscarawas Hospital SystemStart: 03-15-2024 End: 84-46-3455Jnddtvo smoking status NHISEx-smokerNOMS HealthcareStart: 09-08-1974 End: 53-85-5969Wetrmic of tobacco useCurrent smokerProHolzer Medical Center – Jackson SystemStart: 09-08-1974 End: 97-77-5410Pfhzops of tobacco useCigarette SmokerNOMS HealthcareStart: 05-20-2022 End: 15-68-9086Requuit use and exposureSmokeless tobacco non-userTuscarawas Hospital SystemStart: 03-15-2024 End: 20-51-0068Gdsbytzvi beverage intakeLifetime non-drinker (finding)[facility] HealthcareStart: 03-15-2024 End: 47-14-9352Egmolew use panelTuscarawas Hospital SystemStart: 50-20-9290Lobqohv CommentocassionalValley View Medical Center HealthcareStart: 97-11-0026Cae assigned at birthLifecare Hospital of PittsburghStart: 84-34-4031Pairfq identityIdentifies as male gender (finding) [facility] HealthcareStart: 07-29-2023 End: 70-66-5846Lsgmulmww beverage intakeEx-drinker (finding)[facility] Rockinghamtart: 19-03-8907Wjokdv the past 12 months we worried whether our food would run out before we got money to buy more.Never [facility] Start: 31-30-4542Jdpjail CommentocaCounts include 234 beds at the [facility] Hospitaltart: 18-55-7540Ost assigned at birthNot on fileUNC Health Rockinghamtart: 04-30-3791VygAwwg (finding)[facility] Clinical Notes 04-30-2024 to 06-23-2025 Note Date & SkdtVfdcLehxzpnd01-97-9250 History of Present illness Narrative* Yuri Rodriguez, [...] Insecurity: No Food Insecurity (06/24/2024) [facility] [place] Hunger Screening Within the past 12 months [...] non palpable pedal pulses bilaterally NEURO: 5.07 [place] Anjum monofilament test intact to digits and [...] Patient have SERVANDO PVRs at [facility] for possible procedure and nail avulsions in the future with follow up post testing Yuri Rodriguez DPM [1] Allergies Allergen Reactions Gluten Meal GI intolerance Isosorbide Nitrate Headache [2] Past Medical History: Diagnosis Date Anemia Arthritis 08/16/2024 Atrial fibrillation (HCC) Cardiomyopathy, ischemic 08/16/2024 Celiac disease (HCC) 03/04/2019 Centrilobular emphysema (HCC) 2025 Noted by [facility] last documented on [id number] Cervicalgia 04/08/2018 Chronic anticoagulation 08/16/2024 Chronic obstructive lung disease (HCC) 01/22/2018 Chronic obstructive pulmonary disease (COPD) ([facility]) Chronic systolic heart failure ([facility]) 08/16/2024 Class 2 severe obesity due to excess calories with serious comorbidity and body mass index (BMI) of35.0 to 35.9 in adult 08/16/2024 Coronary artery disease Emphysema of lung ([facility]) Erectile dysfunction 08/16/2024 H/O hernia repair Headache in back of head 04/08/2018 Hypertensive heart disease with heart failure (HCC) 2025 Noted by [facility] last documented on 20241001 Mixed hyperlipidemia 06/24/2024 Pain in wrist 08/16/2024 Peripheral polyneuropathy 06/27/2023 Pneumonia Primary hypertension 06/24/2024 Pure hypercholesterolemia 08/16/2024 Rheumatoid arthritis ([facility]) Sinus tachycardia 01/22/2018 [3] Current Outpatient Medications: [...] time, Disp: , Rfl: documented in this encounterFreeman Neosho HospitalEtyooibgcm86-60-2947 Hospital Discharge instructionsAmbulatory Orders* Referral to Pain Management Time Frame: 06/14/25, Location: None Selected [facility] Work Phone: [phone] Evaluation note* Diagnosis Onset Date Resolution Status Admit Date Paresthesias acuteOctober 2024 11:34amCarpal tunnel syndrome, leftchronicOctober 2024 11:34amDDD (degenerative disc disease), lumbarchronicOctober 2024 11:34amLumbosacral radiculopathychronicOctober 2024 11:34amNeck painchronic October 2024 11:34amTremorchronicOctober 2024 11:34am [facility] Work Phone: 1(822) 111-302809-19-2025 [facility] Reason for [...] as dire (more content not included)...[facility]08-08-2025 History of Present illness Narrative* Tree Krishnan, [...] tympanostomy tube with replacement documented in this encounterFreeman Neosho HospitalXxpkmnzpba77-80-4864 NoteBellevue [facility] Note Reason for [...] Rfl: theop (more content not included)...[facility] 2025 History of Present illness Narrative* Tree [...] family physician and subspecialist documented in this encounterFreeman Neosho HospitalBndykvnpyh57-79-3437 NoteBellevue [facility] Note Reason for [...] in no (more content not included)...[facility]04-21-2025 History of Present illness Narrative* GUILLERMO Abdul - 12/27/2024 10:20 AM EDT Subjective Elise Tabor is a 64 y.o. year old male Chief Complaint Patient presents with Back Pain Past Medical History: Diagnosis Date Anemia Atrial fibrillation ([facility]/HCC) Celiac disease (CMS/HCC) 03/04/2019 Cervicalgia 04/08/2018 Chronic obstructive lung disease (CMS/HCC) 01/22/2018 Chronic obstructive pulmonary disease (COPD) (CMS/HCC) Coronary artery disease ([facility]/HCC) Emphysema of lung ([facility]/HCC) H/O hernia repair Headache in back [...] triceps, wrist extensors, wrist extensors, wrist flexor, padder strength 5/5. LUE Strength deltoid, biceps, triceps, wrist extensors, wrist extensors, wrist flexor, padder strength 5/5. RLE Strength illopsoas, quadriceps, tibialis [...] new or worsening symptoms documented in this [facility]04-14-2025 Telephone encounter Note* Telephone Encounter - Leanne Mancia MA - 12/20/2024 4:44 PM EDT Patient is in need of refill, appt had to be rescheduled due to provider being out. Please send to [facility] in [place] [facility] [id number] Miscellaneous Notes* Telephone Encounter - Leanne Mancia MA - 12/20/2024 4:44 PM EDT Patient is in need of refill, appt had to be rescheduled due to provider being out. 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 Explained to him that we do try to keep pt's with same doc but it does not always work out that way. Pt understood but has already seen the the other group. 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 Explained to him that we do try to keep pt's with same doc but it does not always work out that way. Pt understood but has already seen the the other group. [facility]01-02-2025 Telephone encounter Note* Telephone Encounter - Yuri Chapa MA - 09/09/2024 8:59 AM EST 06/09/2024 Continue Lyrica 150mg PO TID for neuropathic pain [facility] reviewed. Last filled 05/17/2024 for 90 day supply. Due 08/15/2024 [facility] Ktrowdmfka38-81-8125 Miscellaneous Notes* Telephone Encounter - Yuri Chapa MA - 09/09/2024 8:59 AM EST 06/09/2024 Continue Lyrica 150mg PO TID for neuropathic pain [facility] reviewed. Last filled 05/17/2024 for 90 day supply. Due 08/15/2024 documented in this encounterFreeman Neosho HospitalSafsesrles88-55-0921 NoteBellevue [facility] Note Reason for cardiology consult: Establish new automobile tester, CAD, congestive heart failure, ascending aortic aneurysm [...] gallops. RESPIR (more content not included)...[facility] 07-29-2024 Miscellaneous Notes* Telephone Encounter - Diana Munguia LPN - 07/29/2024 9:20 AM EST [facility] 06/24/24 documented in this encounterMain Campus Medical Center11-21-2024 Telephone encounter Note* Telephone Encounter - Diana Munguia LPN - 07/29/2024 9:20 AM EST [facility] 06/24/24 [facility]10-17-2024 History of Present illness Narrative* Gillian Taylor MD - 06/24/2024 2:00 PM EDT Elise Schneider Padilla Date of visit: 06/24/2024 Date of : 1960 Age: 64 y.o. Patient Active Problem List Diagnosis Coronary artery disease involving coronary bypass graft of re[place]-sparks heart without angina pectoris Paroxysmal atrial fibrillation [...] 65 mg by mouth daily with breakfast. nqokvkbtjqq-ztzudoutx-ggabhpnj (TRELEGY ELLIPTA) 200-62.5-25 mcg blister with device [...] the reported ablation in [place], continue on anticoagulation.We discussed this again today [...] History: Diagnosis Date Arthritis Ascending aortic aneurysm ([facility]-HCC) Atrial fibrillation ([facility]-HCC) Celiac disease COPD (chronic obstructive pulmonary disease) ([facility]-HCC) Coronary artery disease with history of [...] artery disease involving coronary bypass graft of [place]-sp[place] heart without angina pectoris - POCT EKG [...] LORENZO Referring Physician: Kacie Del Real MD [address] [place] [address] documented in this [facility]10-17-2024 Instructions* Patient Instructions* Gillian Taylor MD - 06/24/2024 2:00 PM EDT Laboratory studies CTA of the aorta Echocardiogram documented in this encounterDayton Children's HospitalCropIn Technologies [facility] HospitalYohpro62-86-9031 Miscellaneous Notes* Telephone Encounter - Juana Hercules CMA - 06/23/2024 10:05 AM EDT Called patient to remind them to bring their most current copy of their medication list with them to their appt. Patient verbalizes understanding. documented in this encounterMain Campus Medical Center10-16-2024 Telephone encounter Note* Telephone Encounter - Juana Hercules CMA - 06/23/2024 10:05 AM EDT Called patient to remind them to bring their most current copy of their medication list with them to their appt. Patient verbalizes understanding. [facility] History of Present illness Narrative* GUILLERMO Abdul - 06/09/2024 11:20 AM EDT Subjective Elise Tabor is a 64 y.o. year old male Chief Complaint Patient presents with Back Pain Neck Pain Tremors Past Medical History: Diagnosis Date Anemia Atrial fibrillation ([facility] [facility]) Celiac disease ([facility]) 03/04/2019 Cervicalgia 04/08/2018 Chronic obstructive lung disease ([facility]) 01/22/2018 Chronic obstructive pulmonary disease (COPD) ([facility]) Coronary artery disease ([facility]) Emphysema of lung ([facility]) H/O hernia repair Headache in back of head 04/08/2018 Peripheral polyneuropathy 06/27/2023 Pneumonia Rheumatoid arthritis ([facility]) Sinus tachycardia 01/22/2018 Past Surgical History: Procedure [...] handles -admits hand weakness -some trouble with padder ROS Review of Systems Constitutional: Negative for [...] triceps, wrist extensors, wrist extensors, wrist flexor, padder strength 5/5. LUE Strength deltoid, biceps, triceps, wrist extensors, wrist extensors, wrist flexor, padder strength 5/5. RLE Strength illopsoas, quadriceps, tibialis [...] new or worsening symptoms documented in this [facility]10-01-2024 History of Present illness Narrative* Vera Zuñiga MA - 06/08/2024 12:15 PM EDT Images from the original note were not included. Reason for Appointment: EMG Patient: Elise Tabor : 1960 EMG Computer: [employer]era Referring Physician: Preet Bill PA-C EMG: WALTER pump stitcher: Vera Zuñiga CMA Office Location: [place] Reason for EMG: c/o pain and paresthesia in the arm from the shoulder down. No Hx of DM, takes Eliquis and ASA Comments: Procedure explained to the patient who expressed understanding. documented in this [facility]09-06-2024 Miscellaneous Notes* Telephone Encounter - Juana Hercules CMA - 05/14/2024 10:40 AM EDT Phoned pt to advise that appt scheduled for 05/17/2024 is the date that his EM will be sent out andis NOT an actual appt. Verbalized understanding. [facility] Telephone encounter Note* Telephone Encounter - Juana Hercules CMA - 05/14/2024 10:40 AM EDT Phoned pt to advise that appt scheduled for 05/17/2024 is the date that his EM will be sent out andis NOT an actual appt. Verbalized understanding. 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 Please advise. Thank you! 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 * Telephone Encounter - Emely Cantu [...] patient to call us back to review SHEEP FARM MANAGER's response. 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 Please advise. Thank you! 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 [facility] Telephone encounter Note* Telephone Encounter - Emely [...] further. Would continue Eliquis in the meantime. [facility] [id number] Telephone encounter Note* Telephone Encounter - Ashlee Lim RN - 04/30/2024 10:24 AM EDT Amml asking patient to call us back to review SHEEP FARM MANAGER's response. [facility] Diagnosis Carpal tunnel syndrome of left wrist- Primary documented in this encounter [facility]* Diagnosis Degeneration of intervertebral disc of lumbar region with discogenic back pain and lower extremity pain- Primary Neck pain Cervicalgia Chronic daily headache Headache Tremor Abnormal involuntary movements documented in this encounter [facility]* Diagnosis DDD (degenerative disc disease), lumbar Degeneration of lumbar or lumbosacral intervertebral disc Lumbosacral radiculopathy Thoracic or lumbosacral neuritis or radiculitis, unspecified documented in this encounter [facility]* Diagnosis DDD (degenerative disc disease), lumbar Degeneration of lumbar or lumbosacral intervertebral disc Lumbosacral radiculopathy Thoracic or lumbosacral neuritis or radiculitis, unspecified documented in this encounter [facility]* Diagnosis Coronary artery disease involving coronary bypass graft of [place] heart without angina pectoris Hx of CABG Postsurgical aortocoronary bypass status Paroxysmal atrial fibrillation (CMS-HCC) Atrial fibrillation Aneurysm of ascending aorta without rupture (CMS-HCC) History of maze procedure documented [facility] Diagnosis Coronary artery disease involving coronary bypass graft of [place] heart without angina pectoris Hx of CABG Postsurgical aortocoronary bypass status Paroxysmal atrial fibrillation (CMS-HCC) Atrial fibrillation Aneurysm of ascending aorta without rupture (CMS-HCC) History of maze procedure documented in [facility]* Diagnosis Coronary artery disease involving coronary bypass graft of [place] heart without angina pectoris Paroxysmal atrial fibrillation (CMS-HCC) Atrial fibrillation Aneurysm of ascending aorta without rupture (CMS-HCC) Hx of CABG 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 documented [facility]* Diagnosis Coronary artery disease involving coronary bypass graft of [place] heart without angina pectoris- Primary Paroxysmal atrial fibrillation (CMS-HCC) Atrial fibrillation Primary hypertension Unspecified essential hypertension Mixed hyperlipidemia Left ventricular dysfunction Left heart failure documented in this [facility]* Diagnosis Coronary artery disease involving coronary bypass graft of [place] heart without angina pectoris Paroxysmal atrial fibrillation (CMS-HCC) Atrial fibrillation Aneurysm of ascending aorta without rupture (CMS-HCC) Hx of CABG 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 documented in this [facility]* Diagnosis Coronary artery disease involving coronary bypass graft of [place] heart without angina pectoris Hx of CABG Postsurgical aortocoronary bypass status Paroxysmal atrial fibrillation ([facility]) Atrial fibrillation Aneurysm of ascending aorta without rupture ([facility]) History of maze procedure [facility]* Diagnosis DDD (degenerative disc disease), lumbar- Primary Degeneration of lumbar or lumbosacral intervertebral disc Lumbosacral radiculopathy Thoracic or lumbosacral neuritis or radiculitis, unspecified documented in this encounter [facility]* Diagnosis Degeneration of intervertebral disc of lumbar region with discogenic back pain and lower extremity pain- Primary Lumbosacral radiculopathy Thoracic or lumbosacral neuritis or radiculitis, unspecified Neck pain Cervicalgia Tremor Abnormal involuntary movements Chronic daily headache Headache documented in this encounter [facility]* Diagnosis Dysfunction of right eustachian tube- Primary Otorrhea of right ear Chronic anticoagulation Encounter for long-term (current) use of 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 documented in this encounter [facility]* Diagnosis Otorrhea of right ear- Primary Dysfunction of right eustachian tube Chronic anticoagulation Encounter for long-term (current) use of 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 documented in this encounter [facility] noteNo assessment information availableRiverview Health Institute Work Phone: Evaluation note* Diagnosis PVD (peripheral vascular disease) Unspecified peripheral vascular disease Other polyneuropathy Pain due to onychomycosis of toenails of both feet Paronychia, toe, left documented in this encounter [facility] HealthcareHistory of Present illness NarrativeMrLeyla Tabor is referred for consideration of LVRS. 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 He is on 3 L nasal cannula oxygen chronically. He is set to begin pulmonaryrehabilitation.[facility] Work Phone: History of Present illness NarrativeMrLeyla Tabor is referred for consideration of LVRS. 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 He is on 3 L nasal cannula oxygen chronically. He is set to begin pulmonaryrehabilitation.[facility] Work Phone: History of Present illness NarrativeMrLeyla Tabor is referred for consideration of LVRS. 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 He is on 3 L nasal cannula oxygen chronically. He is set to begin pulmonaryrehabilitation.[facility] Work Phone: InstructionsNot on filedocumented in this [...] for referral (narrative)No reason for referral information availableRiverview Health Institute Work Phone: Summary Purpose Family History No [...] Aleyda Lackey MD [address] [place] [address] Referral IDStatusReasonStart DateExpiration DateVisits RequestedVisits [id number] Chief Complaint and Reason for Visit Chief [...] and content) DATE CREATED AUTHOR 07/04/2018 [facility] DATE CREATED AUTHOR AUTHOR'S ORGANIZ ATION 06/09/2022 [facility] DATE CREATED AUTHOR AUTHOR'S ORGANIZ ATION 06/09/2022 [facility] DATE CREATED AUTHOR AUTHOR'S ORGANIZ ATION 02/14/2023 [facility] DATE CREATED AUTHOR AUTHOR'S ORGANIZ ATION 07/06/2024 [facility] DATE CREATED AUTHOR AUTHOR'S ORGANIZ ATION 06/16/2025 [facility] DATE CREATED AUTHOR AUTHOR'S ORGANIZ ATION 06/25/2025 [facility] EP[facility] DATE CREATED AUTHOR AUTHOR'S ORGANIZ ATION 07/02/2025 [facility] Care Teams (unrecognized sec tion and content) Team MemberRelationshipSpecialtyStart DateEnd Date Risa Mcnulty NP [address] [facility] [address] Referring PhysicianFamily Medicine03/15/24Team MemberRelationshipSpecialtyStart DateEnd Date Risa Mcnulty NP [address] [place] [address] Referring PhysicianFamily Medicine03/15/24Team MemberRelationshipSpecialtyStart DateEnd Date Risa Mcnulty NP [address] [facility] [place] [address] Referring PhysicianFamily Medicine03/15/24Team MemberRelationshipSpecialtyStart DateEnd Date Risa Mcnulty NP [address] [place] [address] Referring PhysicianFamily Medicine03/15/24Team MemberRelationshipSpecialtyStart DateEnd Date Risa Mcnulty NP [address] [place] [address] Referring PhysicianFamily Medicine03/15/24Team MemberRelationshipSpecialtyStart DateEnd Date Kacie Del Real MD [address] [place] [address] PCP - GeneralFamily Medicine03/22/22Team MemberRelationshipSpecialtyStart DateEnd Date Kacie Del Real MD [address] [place] [address] PCP - GeneralFamily Medicine03/22/22Team MemberRelationshipSpecialtyStart DateEnd Date Kacie Del Real MD [address] [place] [address] PCP - Generalmily Medicine03/22/22am MemberRelationshipSpecialtyStart DateEnd Date Kacie Del Real MD [address] [place] [address] [facility]03/22/22am MemberRelationshipSpecialtyStart DateEnd Date Kacie Del Real MD [address] [place] [address] PCP - [facility] Medicine03/22/22Team MemberRelationshipSpecialtyStart DateEnd Date Risa Mcnulty, BATCH DUMPER-FRUIT AND VEGETABLE PARER [address] [place] [address] PCP - Generalmily Cdbyafml56/17/24Team MemberRelationshipSpecialtyStart Date End Date Risa Mcnulty, BATCH DUMPER-FRUIT [employer] VEGETABLE PARER [address] [place] [address] PCP - GeneralFamily Cffuxeio75/17/24Team MemberRelationshipSpecialtyStart Date End Date Risa Mcnulty, BATCH DUMPER-FRUIT AND VEGETABLE PARER [address] [place] [address] PCP - GeneralFamily Tmtwyzgx45/17/24Team MemberRelationshipSpecialtyStart Date End Date Risa Mcnulty, BATCH DUMPER-FRUIT AND VEGETABLE PARER [address] [place] [address] PCP - GeneralFamily Nbtxagyu07/17/24Team MemberRelationshipSpecialtyStart Date End Date Risa Mcnulty, HOG TENDER [address] [facility] [place] [address] Referring PhysicianArch[facility]03/15/24Team MemberRelationshipSpecialtyStart DateEnd Date Risa Mcnulty NP [address] [place] [address] Referring PhysicianArch[facility]03/15/24Team MemberRelationshipSpecialtyStart DateEnd Date Risa Mcnulty NP [address] [place] [address] Referring PhysicianArch[facility]03/15/24Team MemberRelationshipSpecialtyStart DateEnd Date Risa Mcnulty NP [address] [place] [address] Referring PhysicianArchbold - [facility]03/15/24 Team Status: Active Member Role Status Dates Mario Zayas MD Primary Care Provider Active Team Status: Inactive Member Role Status Dates Danni Mccoy , BATCH DUMPER-[employer]UIT [employer] VEGETABLE PARER-C Attending Provider Active Start: June 14, 2025 End: June 14, 2025Eduarda Brice Care ProviderActiveStart: June 14, 2025 End: June 14, 2025 Team Status: Inactive Member Role Status Dates Mario Zayas MD Attending Provider Active Sta rt: June 14, 2025 End: June 14, 2025Team MemberRelationshipSpecialtyStart DateEnd Date Mario Zayas MD [address] [place] [id number] PCP - [facility]Arch[facility]06/23/25 Risa Mcnulty NP [address] [place] [address] Referring PhysicianArch[facility]03/15/24Team MemberRelationshipSpecialtyStart DateEnd Date Mario Zayas MD [address] [place] [id number] PCP - [facility]06/23/25 Risa Mcnulty NP [address] [place] [address] Referring PhysicianArchbold - [facility]ady [facility] Hospital03/15/24 Reason for Visit (unrecogniz ed section and content) SpecialtyDiagnoses / ProceduresReferred By ContactReferred To ContactNeurology Diagnoses LUE EMG paresthesias of hand, numbness and tingling, ref by Wei Bill PACr20.2 Procedures DC NERVE CONDUCTION STUDIES 9-10 STUDIES DC NEEDLE EMG EA EXTREMTY W/PARASPINL [place] [address] [place] [address] Aleyda Lackey MD [address] [place] [address] Referral IDStatusReasonStart DateExpiration DateVisits RequestedVisits [id number] Perform Procedure [id number] PainNeck PainTremorsReasonCommentsMed RefillReasonOnset DateCommentsMed [id number] DateCommentsMed [id number]-upEST PT FU EM RESULTSReasonOnset Date Commentstransfering care11/25/2024ReasonOnset DateCommentsMed Qzbigd9512/20/2024 ReasonCommentsBack PainReasonCommentsEar Tube CheckRight ear painReasonComments Ear [...] BE BASED ON THE PRIMARY CLINICAL RECORDS. [facility]. provides no warranty or guarantee of the accuracy or completeness of information in this document.
[2025-09-07 14:26] LABS: Alanine Aminotransferase 29 U/L (16-63); Albumin Globulin Ratio 1.1; Albumin Level 3.6 g/dL (3.4-5.0); Alkaline Phosphatase 74 U/L (46-116); Anion Gap 10.8; Aspartate Amino Transferase 18 U/L (15-37); Blood Urea Nitrogen 25.0 mg/dL (7.0-18.0); Calcium 9.4 mg/dL (8.5-10.1); Carbon Dioxide 34.9 mmol/L (21.0-32.0); Chloride 103 mmol/L (98-107); Estimated GFR (African America 52 (>=60 mL/min/1.73m^2); Estimated GFR (Non-African Ame 43 (>=60 mL/min/1.73m^2); Globulin 3.3 g/dL; Glucose 125 mg/dL (74-106); NT Pro B Type Natriuretic Pept 75.0 pg/mL (<=900.0); Potassium 4.7 mmol/L (3.5-5.1); Sodium 144 mmol/L (136-145); Total Protein 6.9 g/dL (6.4-8.2)
== END 2025-09-07 13:43 | disposition home or self-care (01) ==
LOC: LAB 13:44
PROVIDERS: PCP Family Medicine; Visit Provider Family Medicine
DX: R60.9 Edema, unspecified (principal)
CPT/HCPCS: 36415; 80053; 83880

== ENCOUNTER 2025-09-07 13:46 | Outpatient (OUT) | payer MEDICARE, SELFPAY ==
--- OUTSIDE RECORDS SUMMARY | 2025-09-07 14:08 | XMS_ITS | CCD ---
Author Organization [facility] Care Team Providers Care Transportation Department Supervisor Name Role Phone ERICK MELLISA STOHLER Unavailable [...] Admitting Unavailable [facility] Primary Care Unavailable SAMSA ., DARNELL Attending Unavailable SAMSA ., DARNELL Consulting Unavailable SAMSA ., DARNELL Admitting Unavailable [facility] Primary Care Unavailable SAMSA ., DARNELL Attending Unavailable SAMSA ., DARNELL Consulting Unavailable GREG, KACIE Consulting Unavailable [facility] Primary Care Unavailable SAMSA ., DARNELL Attending Unavailable SAMSA ., DARNELL Consulting Unavailable SAMSA ., DARNELL Admitting Unavailable [facility] Primary Care Unavailable DR ALEYDA DYER Consulting Unavailable SAMSA ., DARNELL Attending Unavailable SAMSA ., DARNELL Admitting Unavailable SAMSA ., DARNELL Consulting Unavailable Noam CHRISTIAN, Risa Unavailable EMELY CANTU Referring Unavailable KACIE DEL REAL Primary Care Unavailable GILLIAN TAYLOR Attending Unavailable KACIE DEL REAL Referring Unavailable RISA MCNULTY Primary Care Unavailable Kacie Del Real MD Primary Care Provider Noam HO-CHAO [place] Primary Care Provider Darius HO-TEST CASE DEVELOPER-Damaso Danni [place] Attending Provider Mario Zayas MD Primary Care Provider [phone] Mario Zayas MD Attending Provider Mario Zayas Attending Unavailable Mario Zayas Admitting Unavailable Noam SHOE CEMENTER, [place] Unavailable Mario Zayas MD Primary Care Provider [...] of OnsetReaction(s) Facility (19 sources)GlutenPropensity to adverse bzfsetkbv57-49-2183BXMiddlet[facility] (19 sources)Isosorbide DinitrateDrug Wnmzbky21-38-9678IrjilnkoJIDE [facility] (11 sources)Gluten; Translations: [GLUTEN]Propensity to adverse reactions to food (disorder)34-16-8553GzsGwnbsi Repository (11 sources)Isosorbide; Translations: [ISOSORBIDE MONONITRATE]Drug Allergy 38-06-2510VpcfqnjkTweZgodxq Repository (1 source)ALLERGIES NOT ON FILE; Translations: [ALLERGIES NOT ON FILE]Propensity to adverse reactions (disorder)[facility] Repository Medications Current Medications MedicationDrug Class(es)DatesSig (Normalized)Sig (Original)[id number] 200 actuat albuterol 0.09 mg/actuat metered dose inhaler (20 sources)beta2-Adrenergic AgonistStart: 42-03-6629xhah 1 puff(s) by inhalation every four hours [...] mg/ml inhalation solution (20 sources)Anticholinergic, beta2-Adrenergic AgonistStart: 46-25-8458gyfx 1 mL by inhalation four times dailyIpratropium-Albuterol 0.5 mg-3 mg(2.5 mg base)/3 mL solution for nebulization Active 3 ML INHALATION Four times daily June 14, 2025 12:00am Complies with drug therapyStart: 74-12-1913jahubfhfplb- albuterol (Duo-Neb) 0.5-2.5 mg/3 mL nebulizer solution Take 3 mL by nebulization in themorning and 3 mL at noon and 3 mL in the evening and 3 mL before bedtime. 02/20/2022 ActiveStart: 88-24-5915Ffpznvjkihd-Albuterol 0.5-2.5 (3) MG/3ML Inhalation Solution Quantity: 1350 Refills: 0 Ordered: 20-Feb-2022 DO Start : 20-Feb-2022 Activeapixaban 5 mg oral tablet (20 sources)Factor Xa InhibitorStart: 06-04-2023 End: 91-84-4598chgt 1 tablet by mouth in the morningapixaban [...] sources)Platelet Aggregation Inhibitor, Nonsteroidal Anti-inflammatory Drug Start: 04-00-0184ihiv 1 tablet by mouth once dailyAspirin 81 mg tablet Active 81 MG PO Daily June 14, 2025 12:00am Complies with drug therapyStart: 87-13-7534ztun 1 tablet by mouth in the morningaspirin 81 MG EC tablet Take 81 mg by mouth in the morning. 07/25/2022 Activeatorvastatin 80 mg oral tablet (20 sources)HMG-CoA Reductase InhibitorStart: 84-27-9233ewhf 1 tablet by mouth once dailyAtorvastatin 80 mg tablet Active 80 MG PO Daily June 14, 2025 12:00am Complies with drug therapyStart: 01-20-2023 End: 35-34-5620iimv 1 tablet by mouth in the morningatorvastatin (LIPITOR) 40 mg tablet Indications: Coronary artery disease involving coronary bypass graft of [place] heart without angina pectoris , Hx of CABG , Paroxysmal atrial fibrillation (CMS-HCC) , Aneurysm of ascending aorta without rupture , History of maze procedure Take 1 tablet (40 mg total) by mouth in the morning. 90 tablet 1 02/19/2024 Activeazithromycin 250 mg oral tablet (20 sources)Macrolide AntimicrobialStart: 53-45-6854dnau 1 tablet by mouth once dailyAzithromycin 250 mg tablet Active 250 MG PO Daily June 14, 2025 12:00am Complies with drug therapycapsaicin 0.75 mg/ml topical cream (1 source)Start: 66-94-2985Dhymuzpwq 0.075 % cream Active 1 APPLIC TOPICAL [...] 0.05 mg oral capsule (20 sources)Vitamin DStart: 50-62-9250dgjo 1 capsule by mouth once daily Cholecalciferol (Vitamin D3) 50 mcg (2,000 unit) capsule Active 50 MCG PO Daily June 14, 2025 12:00am Complies with drug therapy End: 49-01-0774jyjm 1 tablet by mouth in the morningcholecalciferol (Vitamin D- 3) 25 MCG (1000 UT) tablet Take 1,000 Units by mouth in the morning. 2025 Discontinueddapagliflozin 10 mg oral tablet (10 sources)Sodium-Glucose Cotransporter 2 InhibitorStart: 02-10-2025 End: 33-76-2148lzclityoqkypz (Farxiga) 10 MG Take 10 mg by mouth 02/10/2025 02/10/2026 Activeferrous sulfate 325 mg delayed release oral tablet (20 sources)take 1 tablet by mouth at mealtimeferrous sulfate 325 (65 Fe) MG EC tablet Take 65 mg by mouth in the morning. Take with meals. Kpsndr15 actuat fluticasone furoate 0.1 mg/actuat / umeclidinium 0.0625 mg/actuat / vilanterol 0.025 mg/actuat dry powder inhaler (20 sources)Anticholinergic, Corticosteroid, beta2-Adrenergic AgonistStart: 01-93-3010udgr 1 puff(s) by inhalation in the morningTrelegy Ellipta 100-62.5-25 MCG/ACT aerosol powder Inhale 1 puff in the morning. 03/15/2022 ActiveStart: 77-61-2946Mpixkkn Ellipta 100-62.5-25 MCG/INH AEPB Quantity: 180 Refills: 0 Ordered: 15-Mar-2022 DO Start : 15-Mar-2022 TfhcpmUmsxwqrtkug-Opmxnwush-Zwnnbfaj (2 sources)Start: 75-52-4604Uqnjiflbrmz-Umeclidin-Vilanter (Trelegy Ellipta) 200-62.5-25 mcg blister with device Active 1 INH INHALATION Daily June 14, 2025 12:00am Complies with drug lchdyqzerxrpsfwqpv-sbumirajo-vckvaven (TRELEGY ELLIPTA) 200-62.5-25 mcg blister with device (10 sources)Start: 01-48-8842rnyzarwhkqj-umeclidin-vilanter (TRELEGY ELLIPTA) 200-62.5-25 mcg blister with device 1 puff in the morning. 03/15/2022 Active gabapentin 600 mg oral tablet (14 sources)Anti-epileptic AgentStart: 37-45-0025uuki 1 tablet by mouth three times dailygabapentin (NEURONTIN) 600 mg tablet Take 1 tablet (600 mg total) by mouth 3 (three) times a day. 03/30/2022 ActiveStart: 82-63-2824Yhsraktyxc 300 MG Oral Capsule Quantity: 270 Refills: 0 Ordered: 30-Mar-2022 DO Start : 18-Ghk-4696Zopmtj40 hr isosorbide mononitrate 30 mg extended release oral tablet (19 sources)Nitrate VasodilatorStart: 84-05-0166vqrl 1 tablet by mouth once daily, then take 1 tablet by mouth every twenty-four hoursisosorbide mononitrate ER (Imdur) 30 MG 24 hr tablet Take 30 mg by mouth Daily 06/13/2022 Active levoFLOXacin 500 mg oral tablet (2 sources)Quinolone AntimicrobialStart: 2025 End: 89-60-4715ycvb 1 tablet by mouth once dailylevoFLOXacin (Levaquin) 500 MG tablet Indications: Otorrhea of right ear Take 1 tablet (500 mg) by mouth Daily for 10 days 10 tablet 2025 04/04/2025 Activelisinopril 5 mg oral tablet (20 sources)Angiotensin Converting Enzyme InhibitorStart: 55-80-5912miqo 1 tablet by mouth once dailyLisinopril 5 mg tablet Active 5 MG PO Daily June 14, 2025 12:00am Complies with drug therapyStart: 01-20-2023 End: 09-48-7810qjpo 1 tablet by mouth once daily in the morninglisinopriL (PRINIVIL,ZESTRIL) 5 mg tablet Indications: Coronary artery disease involving coronary bypass graft of [place] heart without angina pectoris , Hx of CABG , Paroxysmal atrial fibrillation (CMS-HCC) , Aneurysm of ascending aorta without rupture , History of maze procedure TAKE 1 TABLET BY MOUTH ONCE DAILY IN THE MORNING 30 tablet 11/12/2024 ActiveStart: 01-83-1427Vlbrbwvvai 5 MG Oral Tablet Quantity: 90 Refills: 0 Ordered: 7-Jeffrey-2022 DO Start : 14-Mar-2022 Active meloxicam 15 mg oral tablet (10 sources)Nonsteroidal Anti-inflammatory DrugStart: 55-14-0552mtjt 1 tablet by mouth once dailyMeloxicam 15 mg tablet Active 15 MG PO Daily June 14, 2025 12:00am Complies with drug frpuleq14 hr metoprolol succinate 50 mg extended release oral tablet (20 sources)beta-Adrenergic BlockerStart: 40-85-4119tqvi 2 tablets by mouth every twenty-four hours in the morning, then take 1 tablet by mouth in the e veningMetoprolol Succinate 50 mg tablet extended release 24 hr Active 50 MG PO .COMPLEX June 142:00am 50 mg orally; take 2 tablets by mouth in the morning and take 1 tablet by mouth in the evening Complies with drug therapy Start: 49-26-5568bivczvgvli succinate XL (TOPROL XL) 50 mg 24 hr tablet Indications: Coronary artery disease involving coronary bypass graft of [place] heart without angina pectoris , Hx of CABG , Paroxysmal atrial fibrillation (CMS-HCC) , Aneurysm of ascending aorta without rupture , History of maze procedure Take 100 mg in the morning and 50 mg at night 270 tablet 3 06/25/2023 ActiveStart: 52-62-3227ouyb 1 tablet by mouth every twenty-four hoursMetoprolol Succinate ER 50 MG Oral Tablet Extended Release 24 Hour Quantity: 135 Refills: 0 Ordered: 23-Mar-2022 DO Start : 23-Mar-2022 Activenitroglycerin 0.4 mg sublingual tablet (20 sources)Nitrate VasodilatorStart: 76-36-2737vnibgrbwoiroa (Nitrostat) 0.[address] 0.4 mg under the tongue every 5 (five) minutes if needed for chest pain 07/25/2022 ActiveStart: 07-25-2022 End: 65-21-1823tiorqclaenhaq (NITROSTAT) 0.4 MG SL tablet Indications: Coronary artery disease involving coronary bypass graft of [place] heart without angina pectoris , Paroxysmal atrial [...] otic solution (15 sources)Quinolone AntimicrobialStart: 02-17-2023 End: 22-70-4156fxzvdryax (Floxin) 0.3 % otic solution Indications: Otorrhea of right ear Administer 5 drops into the right ear in the morning and 5 drops before bedtime. Do all this for 10 days. 5 mL 1 2025 04/04/2025 Active omeprazole 40 mg delayed release oral capsule (20 sources)Proton Pump InhibitorStart: 55-16-6768qmpe 1 capsule by mouth in the morningomeprazole (PriLOSEC) [address] capsule Take 40 mg by mouth in the morning. 03/19/2022 ActiveStart: 28-66-9331Vxicuueyai 40 MG Oral Capsule Delayed Release Quantity: 90 Refills: 0 Ordered: 19-Mar-2022 DO Start: 19-Mar-2022 ActiveOxygen (10 sources)oxygen Inhale continuously. Activepantoprazole 40 mg delayed release oral tablet (10 sources)Proton Pump InhibitorStart: 22-80-2979nstf 1 tablet by mouth once dailypantoprazole (ProtoNix) 40 MG EC tablet Take 40 mg by mouth Daily 02/07/2025 ActivepredniSONE 10 mg oral tablet (20 sources)Start: 95-99-8346ifvm 1 tablet by mouth once dailyPrednisone 10 mg tablet Active 10 MG PO Daily June 14, 2025 12:00am Complies with drug therapytake 1 tablet by mouth once dailypredniSONE (Deltasone) 20 MG tablet Take 20 mg by mouth Daily Activepregabalin 150 mg oral capsule (20 sources)Start: 02-18-2024 End: 13-62-5290wbke 1 capsule by mouth in the morning, [...] mg oral tablet (20 sources)Phosphodiesterase 4 InhibitorStart: 90-97-7756xfjr 1 tablet by mouth in the morningDaliresp 500 MCG tablet Take 500 mcg by mouth in the morning. 03/15/2022 Activesodium chloride 9 mg/ml inhalation solution (7 sources)Start: 26-69-4834pwlp 1 mL by inhalation every twelve hoursSodium Chloride 0.9 % solution for nebulization Active 3 ML INHALATION Q12H June 14, 2025 12:00am Complies with drug therapyStart: 95-09-9304vhfceu chloride 0.9 % nebulizer solution Inhale 3 mL 03/23/2025 Activespironolactone 25 mg oral tablet (8 sources)Aldosterone AntagonistStart: 02-09-2025 End: 27-87-3663xpzv 1 tablet by mouth in the morningspironolactone (Aldactone) 25 MG tablet Take 25 mg by mouth in the morning. 02/09/2025 02/09/2026 Active SUMAtriptan 100 mg oral tablet (19 sources)Serotonin-1b and Serotonin-1d Receptor AgonistSUMAtriptan (Imitrex) 100 MG tablet ActiveTESTOSTERONE, BULK, MISC (10 sources)TESTOSTERONE, BULK, MISC by miscellaneous route. 100 mg 1 tablet daily Activetheophylline 400 mg extended release oral tablet (20 sources)MethylxanthineStart: 96-13-5266bqrp 1 tablet by mouth every twelve hoursTheophylline 300 mg tablet extended release 12 hr Active 300 MG PO Q12H June 14, 2025 12:00am Complies with drug therapyStart: 35-23-8151wnoj 1 tablet by mouth in the morning, [...] oral tablet (8 sources)Central alpha-2 Adrenergic AgonistStart: 67-29-3459dmcb 2 tablets by mouth at bedtimetiZANidine (Zanaflex) 4 MG tablet TAKE 2 TABLETS BY MOUTH AT BEDTIME FOR 30 DAYS 01/07/2025 Activetopiramate 50 mg oral tablet (8 sources)Start: 77-91-9981idpi 1 tablet by mouth once dailytopiramate 50 MG tablet Take 1 tablet by mouth Daily 02/21/2025 Activezinc gluconate 50 mg oral tablet (20 sources)zinc gluconate 50 MG tablet 1 (one) time each day at the same time Active Completed/Discontinued Medications MedicationDrug Class(es)DatesSig (Normalized)Sig (Original)acetaminophen 300 mg / codeine phosphate 30 mg oral tablet (13 sources)Opioid AgonistStart: 06-12-2023 End: 15-16-3596ybad 1 tablet by mouth every six hours as needed for pain acetaminophen-codeine (Tylenol w/ Codeine #3) 300-30 MG tablet take 1 tablet by mouth every 6 hoursAS NEEDED FOR PAIN for 5 days 06/12/2023 2025 Discontinueddicyclomine hydrochloride 20 mg oral tablet (13 sources)AnticholinergicStart: 04-01-2023 End: 74-03-3038zogw 1 tablet by mouth three times daily for paindicyclomine (Bentyl) 20 MG tablet take 1 tablet by mouth three times a day if needed for abdominal pain 04/01/2023 2025 BbupbhlhboxjZdciuvzkrhr-Xepgedsbd-Iuaouy 200-62.5-25 MCG/ACT aerosol powder (13 sources)Start: 11-19-2022 End: 22-54-5255zqgr 1 puff(s) by inhalation once daily Mtvgovukigt-Mtcwcwpzx-Sketcp 200-62.5-25 MCG/ACT aerosol powder Inhale 1 puff 1 (one) time each day. 11/19/2022 2025 DiscontinuedStart: 19-16-8171kpqd 1 puff(s) by inhalation once jkrxsQptoqareurg-Mxhtvcrhy-Okbweu 200-62.5-25 MCG/ACT aerosol powder Inhale 1 puff 1 (one) time each day. 11/19/2022 Activelysine 500 mg oral tablet (7 sources) End: 17-19-5646xumk 1 tablet by mouth in the morninglysine 500 mg tablet Take 1 tablet (500 mg total) by mouth in the morning. 06/24/2024 DiscontinuedMaca 500 MG capsule (13 sources) End: 03-77-2025Gnfr 500 MG capsule as directed Orally 2025 Discontinued [place] 500 MG capsule as directed Orally Activenaproxen sodium 220 mg oral tablet (13 sources)Nonsteroidal Anti-inflammatory Drug End: 13-57-7895bxnsvdth sodium (Aleve) 220 MG tablet every 12 (twelve) hours. 2025 Dlgarzaiklmz03 hr naproxen sodium 220 mg / pseudoephedrine hydrochloride 120 mg extended release oral tablet (20 sources)alpha-Adrenergic Agonist, Nonsteroidal Anti-inflammatory Drug End: 55-79-6986ubbt 1 tablet by mouth every twelve hours in the morning pseudoephedrine-Naproxen Na ER 120-220 MG tablet sustained-release 12 hour Take 1 tablet by mouth in the morning and 1 tablet before bedtime. 2025 Discontinuedsaw palmetto (Serenoa repens) 450 MG capsule (13 sources) End: 84-96-1226ypb palmetto (Serenoa repens) 450 MG capsule as directed Orally 2025 Discontinuedsaw palmetto (Serenoa repens) 450 MG capsule as directed Orally Activesoybean lecithin 1200 mg oral capsule (13 sources) End: 14-12-4828hkaq 1 capsule by mouth once dailyLecithin 1200 MG capsule Take 1 capsule every day by oral route. 2025 Discontinuedvitamin b12 1 mg oral tablet (20 sources)Vitamin B12 End: 65-38-9545ucnm 1 tablet by mouth in the morningcyanocobalamin (Vitamin B- 12) 1000 MCG tablet Take 1,000 mcg by mouth in the morning. 2025 Dis continued End: 31-40-7251zwyklmdzbfikzq (Vitamin B-12) 500 MCG tablet 1 (one) time each day at the same time. 2025 Discontinuedzonisamide 25 mg oral capsule (7 sources)Anti-epileptic Agent End: 36-00-7189fage 1 capsule by mouth in the morning, then take 1 capsule by mouth at bedtimezonisamide (ZONEGRAN) 25 mg capsule Take 1 capsule (25 mg total) by mouth in the morning and 1 capsule (25 mg total) before bedtime. 06/24/2024 Discontinued Problems Active Problems Problem ClassificationProblemDateDocumented DateEpisodic/ChronicAortic; peripheral; and visceral artery aneurysms (20 sources)Aneurysm of thoracic aorta; Translations: [Thoracic aneurysm without mention of rupture]Onset: 779894-61-4091YcdjhlqOwupquk dysrhythmias (20 sources)Atrial fibrillation; Translations: [Atrial fibrillation]Onset: 425685-18-3357ZdodyfkYmypemd obstructive pulmonary disease and bronchiectasis (20 sources)Chronic obstructive lung disease; Translations: [Chronic airway obstruction, not elsewhere classified]Onset: 01-22-2018 Resolved: 21-74-4817UdgepksMycebnrrsaco of device; implant or graft (20 sources)Arteriosclerosis of coronary artery bypass graft; Translations: [Atherosclerosis of coronary arterybypass graft(s) without angina pectoris] Onset: 889070-30-3904XszejncEylhdulaet heart failure; nonhypertensive (14 sources)Chronic systolic heart failure; Translations: [Chronic systolic (congestive) heart failure]Onset: 08-16-2024 Resolved: 017956-96-3161WsrqachHtplnjec atherosclerosis and other heart disease (18 sources)Coronary arteriosclerosis; Translations: [Coronary atherosclerosis of unspecified type of vessel, [place] or graft]Onset: 08-16-2024 Resolved: 329062-60-7769VfqwbxlIoeofhwny of lipid metabolism (20 sources)Mixed hyperlipidemia; Translations: [Mixed hyperlipidemia]Onset: 06-24-2024 Resolved: 473926-33-5699LfdswwfNznptzekz hypertension (20 sources)Hypertensive disorder; Translations: [Unspecified essential hypertension]Onset: 06-24-2024 Resolved: 485224-77-2506XjjwizgNgfemojxl of skin (4 sources)H/O Malignant melanoma; Translations: [Personal history of malignant melanoma of skin]EpisodicMycoses (2 sources)Pain in toe; Translations: [Tinea unguium]83-34-4376QbcatwwsApgqt aftercare (4 sources)Encounter for therapeutic drug level monitoring; Translations: [ENC THERAPEUTC DRUG LEVL MONITORING]Onset: 87-77-0338FdoevkffXxvda and ill-defined heart disease (1 source)Heart disease, unspecified; Translations: [Heart disease, unspecified] Onset: 48-42-9692BgtzlklZbxsh and ill-defined heart disease (5 sources)Left ventricular cardiac dysfunction; Translations: [Heart disease, unspecified]Onset: 806491-37-7095XmxgonzUnxvb ear and sense organ disorders (4 sources)Otorrhea [...] system disorders (19 sources)Neuropathy; Translations: [Polyneuropathy, unspecified]Onset: 460627-03-6729YhcjzjkGbqft nervous system disorders (20 sources)Polyneuropathy; Translations: [Polyneuropathy, unspecified]Onset: 06-27-2023 Resolved: 584277-82-6892XlispamNrhqm nervous system disorders (3 sources)Carpal tunnel syndrome of left wrist; Translations: [Carpal tunnel syndrome, left upper limb]84-47-9193XdyjjrlDjgwy nervous system disorders (6 sources)Tremor; Translations: [Tremor, unspecified]42-48-0831VvdiuwosFuxno nutritional; endocrine; and metabolic disorders (2 sources)Morbid (severe) obesity due to excess calories; Translations: [Morbid (severe) obesity due to excess calories]Onset: 55-61-3623PvpmvyqSqloq nutritional; endocrine; and metabolic disorders (2 sources)Body mass index (BMI) 35.0-35.9, adult; Translations: [Body mass index (BMI) 35.0-35.9, adult]Onset: 78-46-6061KsojmidXxojy screening for suspected conditions (not mental disorders or infectious disease) (2 sources)Abnormal result of other cardiovascular function study; Translations: [Abnormal result of other cardiovascular function study]Onset: 04-06-2025 EpisodicOtitis media and related conditions (4 sources)Dysfunction of right eustachian tube; Translations: [Unspecified Eustachian tube disorder, right ear]11-07-8136UaatiqysWsdeptnieo and visceral atherosclerosis (2 sources)Peripheral vascular disease; Translations: [Peripheral vascular disease, unspecified]26-93-5729EbrohipLeia and subcutaneous tissue infections (2 sources)Paronychia of toe of left foot; Translations: [Cellulitis of left toe]28-54-7566PojrutktKlephaxroyc; intervertebral disc disorders; other back problems (20 sources)Degeneration of lumbar intervertebral disc; Translations: [DDD (degenerative disc disease), lumbar]Onset: 279957-54-0287Thyckgh Unclassified (1 source)Neck Pain / 637198()Onset: 59-92-0836Ivgmycgyvqjf (1 source)Stiffness / 343()Onset: 69-61-2126Dektjqangzth (1 source)Back Pain / 12()Onset: 44-12-2799Xfbhxndefnpj (1 source)Upper Extremity Weakness / [id number]()Onset: 90-32-5404Rjrvotonboyu (1 source)M54.2 - Cervicalgia,M51.369 - Other intervertebral disc degeneration, lumbar region without mention of lumbar back pain or lower extremity pain,M54.17 - Radiculopathy, lumbosacral regionUnclassified (1 source)Aneurysm of the ascending aorta, without rupture; Translations: [Aneurysm of the ascending aorta, without rupture]Onset: 30-53-6163Oddgbjvrdciv (2 sources)Abnormal stress testOnset: 64-03-6429Qwsfjpvbcbgw (1 source)Abdominal aortic aneurysm, without rupture, unspecified; Translations: [Abdominal aortic aneurysm, without rupture, unspecified]Onset: 12-31-2024 Unclassified (1 source)Obesity, class 2; Translations: [Obesity, class 2]Onset: 08-16-2024 Past or Other Problems Problem ClassificationProblemDateDocumented DateEpisodic/ChronicCardiac dysrhythmias (19 sources)Sinus tachycardia; Translations: [Tachycardia, unspecified]Onset: 01-22-2018 Resolved: 841023-59-0311BbmwolljQrvxjyvp, including migraine (20 sources)Headache; Translations: [Occipital headache]Onset: 04-08-2018 Resolved: 996083-76-4508XlstjniqOnbkgkxpzpbi with complications and secondary hypertension (8 sources)Hypertensive heart failure; Translations: [Hypertensive heart disease with heart failure]Onset: 2025 Resolved: 414010-05-5545XhrnmbfJlukyzwynfwjns (8 sources)Arthritis; Translations: [Unspecified osteoarthritis, unspecified site]Onset: 08-16-2024 Resolved: 020043-86-9920OburvigSbhsu aftercare (12 sources)Long-term current use of anticoagulant; Translations: [senior living (current) use of 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]Onset: 08-16-2024 Resolved: 483994-37-6691VitefruqIjqqp aftercare (2 sources)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; Translations: [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]Onset: 45-09-5231EysopwqnQlxby gastrointestinal disorders (19 sources)Celiac disease; Translations: [Celiac disease]Onset: 03-04-2019 Resolved: 341579-68-3164PdpasvmVxocu male genital disorders (8 sources)Male erectile dysfunction, unspecified; Translations: [Impotence of organic origin]Onset: 08-16-2024 Resolved: 553879-32-6099DkxqhepZnxev nervous system disorders (20 sources)Paresthesia; Translations: [Paresthesia of skin]Onset: 01-20-2024 00-18-6185OoxloliuLdufy non-traumatic joint disorders (8 sources)Pain in wrist; Translations: [Pain in unspecified wrist]Onset: 08-16-2024 Resolved: 106482-11-3978GryorkalYgkxz nutritional; endocrine; and metabolic disorders (8 sources)Severe obesity; Translations: [Class 2 severe obesity due to excess calories with serious comorbidity and body mass index (BMI) of 35.0 to 35.9 in adult]Onset: 08-16-2024 Resolved: 234313-04-7475FtjdhsnYbxzicnf codes; unclassified (20 sources)History of maze procedure for atrial fibrillation; Translations: [Other specified postprocedural states]Onset: 397108-99-1210Jpaoijcb Screening and history of mental health and substance abuse codes (1 source)Personal history of nicotine dependence; Translations: [PERSONAL HISTORY OF NICOTINE DEPEND]Onset: 12-91-7242VaydbxygDfclglfgbbs; intervertebral disc disorders; other back problems (20 sources)Cervicalgia; Translations: [Neck pain]Onset: 04-08-2018 Resolved: 238507-20-4000IwwmldejMcqantvvaszn (1 source)Aneurysm of the ascending aorta, without rupture; Translations: [Aneurysm of the ascending aorta, without rupture]Onset: 63-11-3591Mzoalxmdxqle (1 source)Abdominal aortic aneurysm, without rupture, unspecified; Translations: [Abdominal aortic aneurysm, without rupture, unspecified]Onset: 12-31-2024 Unclassified (1 source)Obesity, class 2; Translations: [Obesity, class 2]Onset: 08-16-2024 Results Test NameValueInterpretationReference OluwpZtykhuxa17mf [id number] Tari Hagan MA Good lipids and LFTs, continue atorvastatin and recheck in 6 months LVM to advise patient of his lab results per Dr. Whaley request.Normal [facility] HospitalUrine Cultureon 80-80-3421Srhqzgqy identified Cx Nom (U)No Growth 2 Days PERFORMED BY: [place] [address] PATHOLOGIST C D REACTOR OPERATOR MICHEL PACHECO M.D.NormalNemours Children'S Hospital Physician GroupComment on above: Performed By: #### CUU #### [place] [address] USAOffice Visiton 13-55-1558Wdmtlo-up [id number] Elise Tabor 1960 M Date Provider Department Center 05/27/2025 73557-APFXNBBENNY GARZA Family History Problem Relation Age of Onset Coronary artery disease Mother Coronary artery disease Father Family Status - Relation Status Age at Mother Father Sister Alive Level of Service:71468 [place] OFFICE/OUTPATIENT ESTABLISHED MOD MDM 30 MIN Reason for Visit and Comments: Follow-up [055149] - Patient is here today for a follow up s/p cath. Patient states heart desir he feels well. Patient states he fell around labor day and possibly tore a hamstring. Post-Cath [731] Coronary Artery Disease [187] Hyperlipidemia [182] Hypertension [414901] Thoracic aortic aneurysm without rupture [Other] Cardiomyopathy [104] Atrial Fibrillation [80] Congestive Heart Failure [127][facility] 51-15-5206OITT Attestation signed by Juan Flores MD at 04/21/2025 12:57 PM I personally spoke with and examined Mr. Tabor with Dr. Saleh. He has a drop in LVEF and a positive stress test. Plan cors, LV and WALTERS angiography. He voices understanding of risks (, TN, bleeding, etc) and agrees to proceed. Patient: [...] Celiac disease 08/16/2024 Coronary artery disease involving capitan grande band coronary artery of capitan grande band heart without angina pectoris 08/16/2024 Erectile dysfunction 08/16/2024 Pain in wrist 08/16/2024 Peripheral polyneuropathy 08/16/2024 Cardiomyopathy, ischemic 08/16/2024 Chronic systolic heart failure (CMS/HCC) 08/16/2024 Chronic anticoagulation 08/16/2024 Pure hypercholesterolemia 08/16/2024 Class 2 severe obesity due to excess calories with serious comorbidity and body mass index (BMI) of 35.0 to 35.9 in adult ([facility]) 08/16/2024 Mixed hyperlipidemia 06/24/2024 Essential hypertension 06/24/2024 DDD (degenerative disc disease), lumbar 01/20/2024 Neuropathy 01/20/2024 Paresthesia 01/20/2024 History of maze procedure 05/20/2022 Paroxysmal A-fib ([facility]) 05/20/2022 Thoracic aortic aneurysm without rupture 05/20/2022 Cervicalgia 04/08/2018 Headache in back of head 04/08/2018 Abnormal cardiovascular stress test 04/05/2025 Allergies: Allergies[2] CORRECTIONAL NURSE/Current Medications: Prescriptions Prior to Admission[3] Current Medications[4] [...] and agreed to proceed. 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 The patient was examined and there are no changes to the H&P. Will proceed with coronary angiography for further evaluation of abnormal stress test. Consent for blood products obtained. Risks, benefits, and alternatives to procedure discussed with patient in detail who expressed understanding and agreed to proceed.[facility] HospitalNURSNOTEon 04-21-2025 NURSNOTERN educated pt on d/c [...] wheeled off of unit with all of belongings.[facility] HospitalNURSNOTEPatient requesting resp do his DuoNeb nebulizer prior to having his cath done. Resp supervisor crack off called to have the treatment done - states someone will be down as soon as possibleNoSelect Medical TriHealth Rehabilitation HospitalResults Follow-Upon 95-21-1227Qhadeah Follow-[id number] Elise Tabor 1960 M Date Provider Department Center 04/21/2025 46911-ZVYBVXBENNY DIAZ [facility] CARD CA HeartVAS Family History Problem Relation Age of Onset Coronary artery disease Mother Coronary artery disease Father Family Status - Relation Status Age at Mother Father Sister AliveNoParkview Health [facility] 69-17-9426VVNgccxwub Office Cardiology Clinic Note Reason for cardiology [...] procedure, paroxysmal atrial fibrillation, s/p ablation in [place], thoracic aortic aneurysm, left ventricle dysfunction, hypertension, hyperlipidemia COPD, prior tobacco and alcohol abuse He used to follow with [facility] cardiology. He states that overall he [...] Disp: , Rfl: theop (more content not included)...[facility] Office Visiton 04-78-1384Ujnqwe-up [id number] Elise Tabor 1960 M Date Provider Department Center 04/14/2025 53110-EULJWDBENNY GARZA [facility] Family History Problem Relation Age of Onset Coronary artery disease Mother Coronary artery disease Father Family Status - Relation Status Age at Mother Father Sister Alive Level of Service:33271 [place] OFFICE/OUTPATIENT ESTABLISHED MOD MDM 30 MIN Reason for Visit and Comments: Follow-up [649817] Abnormal stress test [Other] Cardiac Cath scheduled 04/28/2025 [Other] Coronary Artery Disease [187] Hyperlipidemia [182] Congestive Heart Failure [127] Hypertension [470314] COPD [313] Home o2 3lpm via N/C 31/03 [Other]Normal[facility] Hospital36on 30-08-679373ZgbryMD Tari Hagan MA Overall echo is normal with minor valvular heart disease LVM to advise patient of Dr. Diaz's findings.[facility] HospitalOrders Onlyon 22-56-6315Hhunja [id number] Elise Tabor 1960 M Date Provider Department Center 04/05/2025 928-DANNI THOMAS [facility] Family History Problem Relation Age of Onset Coronary artery disease Mother Coronary artery disease Father Family Status - Relation Status Age at Mother Father Sister AliveAvita Health System Bucyrus HospitalResults Follow-Upon 42-84-7158Upxesvh Follow-[id number] Elise Tabor 1960 M Date Provider Department Center 04/02/2025 BENNY NICOLE [facility] CAROL ANN CA HeartVAS Family History Problem Relation Age of Onset Coronary artery disease Mother Coronary artery disease Father Family Status - Relation Status Age at Mother Father Sister AliveNormalUGalion HospitalOrders Onlyon 03-21-2025 Orders [id number] Elise Tabor 1960 M Date Provider Department Center 03/21/2025 [id number]-XDRCAFKZ, HISTORICAL [facility] Family History Problem Relation Age of Onset Coronary artery disease Mother Coronary artery disease Father Family Status - Relation Status Age at Mother Father Sister AliveNoSelect Medical TriHealth Rehabilitation Hospital36on 27-08-684772Rygcbjqwp lab results from 01/19/2025 and echo from [...] labs prior to apt in Apr-May 2025. [facility] HospitalOrders Onlyon 39-47-2574Znqidb Only [id number] Elise Tabor 1960 M Date Provider Department Center 02/04/2025 [id number]-MNCFNQWM, HISTORICAL SHAVON Cary Family History Problem Relation Age of Onset Coronary artery disease Mother Coronary artery disease Father Family Status - Relation Status Age at Mother Father Sister AliveNormalUniversWVUMedicine Barnesville HospitalOffice Visiton 12-31-2024 Follow-up [id number] Elise Tabor 1960 M Date Provider Department Center 12/31/2024 68460-FUSGILBENNY DIAZ Family History Problem Relation Age of Onset Coronary artery disease Mother Coronary artery disease Father Family Status - Relation Status Age at Mother Father Sister Alive Level of Service:06877 [place] OFFICE/OUTPATIENT ESTABLISHED MOD MDM 30 MIN Reason for Visit and Comments: Coronary Artery Disease [187] Hyperlipidemia [182] Hypertension [900487][facility]36on Regarding echo and CTA chest performed [...] increasing atorvastatin per Dr. Diaz. He verbalized understanding.[facility] HospitalOffice Visiton 54-10-2463Hiypir-up [id number] Elise Tabor 1960 M Date Provider Department Center 08/16/2024 78628-MDCMSMBENNY DIAZ Family History Problem Relation Age of Onset Coronary artery disease Mother Coronary artery disease Father Family Status - Relation Status Age at Mother Father Level of Service:85893 [place] OFFICE/OUTPATIENT NEW MODERATE MDM 45 MINUTES Reason for Visit and Comments: Atrial Fibrillation [80] - Had EKG at last apt with [facility] in Jun 2024. Denies chest pain and bleeding on Eliquis. Coronary Artery Disease [187] - CABG and MAZE in 2016 Hypertension [536640] Hyperlipidemia [182] COPD [313] - [facility]. [facility]seguera [facility] HospitalPO[facility] EKG Ordered By: Juana Hercules on 44-17-5965BhxGkvgbp Health SystemEMG 1 Extremeityon 34-62-6487ARMQ HealthcareNVC 7-8 Nerveson 13-68-9046AUWI Healthcare THEOPHYLLINEon 54-05-2599EODMSETCPESS40.0 ug/ePJkbxvx78.0-20.0[facility] HospitalComment on above:Performed By: #### BRYAN #### [facility] [address] [address] [address] Karen LeeTHEOPHYLLINEon 70-50-9326XBKMCWZJJUYD7.3 ug/mLCritically low 10.0-20.0[facility] HospitalComment on above:Performed By: #### BRYAN #### [facility] [address] [address] [address] Karen Lu Pressure Cuff Sizeon 84-79-6267Wdtj risk assessmenta) No falls within the last yearMG[facility] Work Phone: Tobacco use status CPHSb) NoMG[facility] Work Phone: blood Pressure Cuff SizeLargeMG-[facility] Work Phone: Office Visit (Thoracic and Esophageal Surgery)on 13-98-5461Gwvynr-up visitDiagnoses/Problems Assessed Atrial fibrillation (427.31) (I48.91) COPD [...] Activated Vitals Vital Signs Recorded: 29May2022 02:58PM Hbnrdnixegg24.2 F Heart Rate91 Dxrbvheostn00 Wgvdhyte443 Xqcfpevvz70 Blood Pressure Cuff SizeLarge Height5 ft 7.32 in Mdakzl750 lb 7 oz BMI Dvuniegcrg90.15 kg/m2 BSA Calculated2.19 Tobacco Useb) No Falls Screening (Age 18+)a) No falls within the last year O2 Hfkbrjtmgk56, Nasal Cannula Pain Scale7 Physical Exam The [...] May 29 2022 3:24PM EST (Author) [facility] Referral Letteron [id number] Referral LetterMr. Tabor is referred for consideration [...] MD; May 29 2022 3:24PM EST (Author) [facility] TouchworksCT LUNG CANCER SCREENINGon 01-84-9332QU LUNG CANCER SCREENING EXAMINATION: CT LUNG CANCER [...] Electronically authenticated by: ALEYDA DYER Date: 2022-04-26 16:20[facility] Medical CenterHEMOGLOBINon 94-69-5263Ypxztoexfx (Bld) [Mass/Vol]13.6 g/dL Critically low14.0-18.0[facility] HospitalComment on above:Performed By: #### HGB #### [facility] [address] [address] [address] Karen Pedroza Noteson 23-62-2253Jdrfixm mass concEncsan francisco marine hospitaler Department: [facility] COMPLEXAB THERAPYProgress Notes by Jacquelyn Rivera PT at [...] Pt self discharged with last txsession with CORRECTIONAL NURSE.Patient is being discharged due to not returning to therapy and/or Plan of Care being .Recommend patient continue with HEP previously instructed on during therapy as appropriate.Patient may be reinstated in therapy upon new evaluation and orders from the physician.Thank You.German HospitalProgress Noteson 04-23-2018 Protein mass concEncounter Department: [facility]PLEXAB THERAPYProgress Notes by Berlin Valle PTA at 04/23/2018 9:00 AMAuthor: Berlin Valle PTAService: (none)Author Type: Physical Therapy AssistantFiled: 04/23/2018 9:46 AMEncounter Date: 04/23/2018Status: SignedEditor: Berlin Valle PTA (Physical Therapy Assist ant)Physical Therapy Treatment NoteVisit Number: 5Encounter diagnosis:ICD-10-CM1.PlguskxssqpI49.22.Headache in back of kzmaN54Nlgjhih Medical Diagnosis:SUBJECTIVE: Pt requests today being his [...] t-band- Scap retract x15- B UE ext d54Kbkg tucks x15GTB rows 9t69Kwibaz- STM along c-spine paraspinals, UT, and levator [...] Treatment Time: 10Total Treatment Time: 25 PT TreatmentNoClermont County Hospital Progress Noteson 73-19-8064SwbjjngVermont Psychiatric Care Hospital Department: [facility] REHAB THERAPYProgress Notes by Berlin Valle PTA at 04/21/2018 9:00 AMAuthor: Berlin Valle PTAService: (none)Author Type: Physical Therapy AssistantFiled: 04/21/2018 9:46 AMEncounter Date: 04/21/2018Status: SignedEditor: Berlin Valle PTA (Book Publisher)Physical Therapy Treatment NoteVisit Number: 4Encounter diagnosis:ICD-10-CM1.SycjasqnxybI04.22.Headache in back of turyU58Dgnwgsf Medical Diagnosis: CervicalgiaSUBJECTIVE:Compliance with HEP: Pt states [...] 30'Green t-band- Scap retract x15- B UEext w09Nxuo tucks x15GTB rows 6k97Mknzso- STM along c-spine paraspinals, UT, and levator [...] in rotation and SB without increase in pain.Bearingizer Goals: LTG to be met by 06/08/18 [...] Treatment Time: 17Total Treatment Time: 32 PT TreatmentNoClermont County HospitalProgress Noteson 04-16-2018 Protein mass concEncounter Department: [facility] COMPLEXAB THERAPYProgress Notes by Collette Pisano PTA at 04/16/20189:00 AMAuthor: Collette Pisano PTAService: (none)Author Type: Physical Therapy AssistantFiled: 04/16/2018 12:11 PMEncounter Date: 04/16/2018Status: SignedEditor: Collette Pisano PTA (Physical Therapy As sistant)Physical Therapy Treatment NoteVisit Number: 3Encounter diagnosis:ICD-10-CM1.PpssmtlnxpbF64.22.Headache in back of irwxQ13Mwaoqyj Medical Diagnosis: CervicalgiaSUBJECTIVE:Compliance with HEP:Patient reports compliance [...] t-band- Scap retract x15- B UE ext p48Fbrj tucks x15GTB rows 7k31Kqficm- STM along c-spine paraspinals, UT, and levator [...] Treatment Time: 28Total Treatment Time: 43 PT TreatmentNoClermont County HospitalProgress Noteson 61-07-1591QaiaieyVermont Psychiatric Care Hospital Department: [facility] COMPLEXAB THERAPYProgress Notes by Berlin Valle PTA at 04/10/2018 9:00 AMAuthor: Berlin Valle PTAService: (none)Author Type: Physical Therapy AssistantFiled: 04/10/2018 10:21 AMEncounter Date: 04/10/2018Status: SignedEditor: Berlin Valle PTA (Book Publisher)Physical Therapy Treatment NoteVisit Number: 2Encounter diagnosis:ICD-10-CM1.ClllencpcvxA80.22.Headache in back of tlxfN23Titeqci Medical Diagnosis: CervicalgiaSUBJECTIVE:Compliance with HEP: Pt reports [...] UT stretch 3x 30'Chin tucks x15GTB rows 2y46ZND: chin tuck, UT andLS stretch, scap squeeze.Mechanical [...] in rotation and SB without increase in pain.Bearingizer Goals: LTG to be met by 06/08/18 [...] Treatment Time: 30Total Treatment Time: 45 PT TreatmentBarnesville HospitalProgress Noteson 33-23-0138Irlcfke hill crest behavioral [facility] services concEncounter Department: [facility] COMPLEXAB THERAPYProgress Notes by Jacquelyn Rivera PT at 04/08/2018 1:45 PMAuthor: Jacquelyn Rivera PTService: (none)Author Type: Physical TherapistFiled: 04/08/2018 6:47 PMEncounter Date: 04/08/2018Status: SignedEditor: Jacquelyn Rivera PT (Physical Therapist)Physical Therapy EvaluationEncounter diagnosis:ICD-10-CM1.MurkwzgnxihM63.22.Headache in back of dkukK01Nwatpzxrz provider: Mellisa Clarke,*Primary Medical Diagnosis: CervicalgiaPlan of [...] Home: 15Prior Level of Functioning: Level of Harrison: Modified IndependentCurrent Level of Functioning: Outcome Scor e: NDI (26 raw score NDI, 52% disability) Functional deficits: reports no functional deficits, ableto do everything just withincreased pain. Level of Harrison: Modified IndependentSleep Status/Sleep Hygiene: Preferred Sleep Position: [...] codes)G8978 Mobility Current Status; Severity: CK 40-59% lkoonfcaN9471 Mobility Goal Status; Severity: CI 1-19% impairedOutcome measure(s)/Test(s) used/Result(s): 52% disability on NDI.Clinical Judgment: Moderate to severe impairement, decreased neck ROM and strength, tenderness totrigger points moderateNew Category to Oojnab-Xy-Htqe only?:NoEvaluation Breakdown DescriptionPatient HistoryComorbiditiesEnvironmental/Personal factorsLearning/CognitionDomestic life*Issue must [...] in rotation and SB without increase in pain.Bearingizer Goals: LTG to be met by 06/08/18 [...] Time: 60Time in: 1:44Time Out: 2:45 PT alGerman Hospital Vital Signs Date TimeVital SignValuePerforming RfpolfhbuAylpxooo86-24-1034 09:50-0400Body gpxhez420.8 cmYuri Rodriguez DPM Work Phone: [facility] FultonKjsixxacme41-97-9854 09:50-0400Body mass index (BMI) [Ratio]35.87 kg/v6CkuixgavYuri Rodriguez DPM Work Phone: [facility] FultonNtqaimlxow58-14-8204 09:50-0400Body ukbswv326.4 kgFaheemcorbyivonne Rodriguez DPM Work Phone: [facility] FultonLiovnoyhao84-55-5787 09:50-0400Respiratory rate18 /Gaylacorbyivonne Jae DPM Work Phone: [facility] FultonPhzxxwurmt78-64-1898 11:48-0400Body thimha038.13 kgDokevin Zayas MD Work Phone: [facility]10-07-2025 11:48-0400 Heart rate75 /Roslyn Zayas MD Work Phone: [phone])649-[address] [place], [place] 3596210-07-2025 11:48-0400 Inhaled oxygen flow rate3 L/Roslyn Zayas MD Work Phone: [phone] [place], [place] 3596210-07-2025 11:48-0400 Respiratory rate16 /Roslyn Zayas MD Work Phone: [phone])949-[address] [place], [place] 3596210-07-2025 11:48-0400 SaO2% (BldA) [Mass fraction]93 %Mario Zayas MD Work Phone: 1([phone])162-[address] [place], [place] 3596208-08-2025 09:22-0400 Body fwoqkw676.8 cmPaul Biedenbach DO Work Phone: [facility] FultonIwwroslddl28-63-5178 09:22-0400Body mass index (BMI) [Ratio]35.87 kg/m2Paul Biedenbach DO Work Phone: [facility] FultonHzorostijl16-51-4635 09:22-0400Body bcibhw013.4 kgPaul Biedenbach DO Work Phone: [facility] FultonGjbkkvxjuk83-40-9193 09:00-0400Body lqnffi881.8 cmPaul Biedenbach DO Work Phone: [facility] FultonPngsqkltii44-12-1856 09:00-0400Body mass index (BMI) [Ratio]35.87 kg/m2Paul Biedenbach DO Work Phone: [facility] FultonHtmcsgoglz77-52-2838 09:00-0400Body .4 kgPavesna Krishnan DO Work Phone: [facility] FultonDbjjdkyosc51-97-5173 10:42-0400Body wvkota678.8 Yair Hall PA Work Phone: NOUn[facility]'s HospitalGoqpmpshvs70-02-5610 10:42-0400Body mass index (BMI) [Ratio]35.87 kg/m2Linsey Hall PA Work Phone: [facility] FultonNfosxplyqd83-94-9676 10:42-0400Body nsutcs421.4 Moira Hall PA Work Phone: [facility] FultonYaukszyuxl99-45-1317 10:42-0400Diastolic blood ptyejiic02 mm[Hg]Linsey Hall PA Work Phone: [facility] FultonUqjqdvnzim51-52-1126 10:42-0400Heart rate75 /min Linsey Hall PA Work Phone: [facility] FultonZbgfyqxjbg64-45-9071 10:42-0400Respiratory rate16 /minLinsey LI Work Phone: [address] [address]Ywyjgnoevb93-84-4326 10:42-1296LuH8% (BldA) [Mass fraction]94 %Linsey Hall PA Work Phone: [facility] FultonLbhtjlpzxp58-57-4682 10:42-0400Systolic blood mm[Hg]Linsey Hall PA Work Phone: [facility] FultonXxdnvigfcd49-88-2856 13:52-0400Body uhkmix748.7 Kristi Taylor MD Work Phone: [facility]10-17-2024 13:52-0400Body mass index (BMI) [Ratio]37.26 kg/x4FfhhmGillian Taylor MD Work Phone: [facility]10-17-2024 13:52-0400Body .13 Rafael Taylor MD Work Phone: [facility]10-17-2024 13:52-0400Diastolic blood zlumpkqp28 mm[Hg]Gillian Taylor MD Work Phone: [facility]10-17-2024 13:52-0400Heart rate 74 /minGillian Taylor MD Work Phone: [facility]10-17-2024 13:52-7663CaB0% (BldA) [Mass fraction]94 %Gillian Taylor MD Work Phone: [facility]10-17-2024 13:52-0400Systolic blood bdkzhigf094 mm[Hg]Gillian Taylor MD Work Phone: [facility]10-02-2024 11:17-0400Body hmbjna189.7 cmAakash LI Work Phone: [facility] FultonAqfwzcnwte21-01-2825 11:17-0400Body mass index (BMI) [Ratio]38.01 kg/m2Linesy LI Work Phone: [facility] FultonCakfavcnmr65-41-2169 11:17-0400Body .4 kgLinsey LI Work Phone: [facility] FultonLrdwtotkgz08-61-1353 11:17-0400Diastolic blood ozealqie12 mm[Hg]Linsey LI Work Phone: AdQuanticUniversity [facility] Children's HospitalNzcfbanzoi32-77-0101 11:17-0400Heart rate78 /min Linsey LI Work Phone: AdQuanticUniversity of Missouri Children's HospitalDpmdklqlbb08-39-3528 11:17-0400Respiratory rate16 /minLinsey LI Work Phone: NOUn[facility] of [facility] HospitalLxlizmdhho95-88-9408 11:17-4889KoC8% (BldA) [Mass fraction]93 %Linsey LI Work Phone: [facility]OU[facility] HospitalPeoljlndxm66-40-5584 11:17-0400Systolic blood wnttvbro447 mm[Hg]Linsey Hall PA Work Phone: [facility]OU[facility] HospitalBdxmktyvmg31-56-0526 14:58-0400Body grixaw996.99 cmReferring Provider UnknownMG-[facility] Work Phone: 1(822) 190-517509-21-2022 14:58-0400Body mass index (BMI) [Ratio] 37.15 kg/b2Lzneyvqxf Provider UnknownMG-[facility] Work Phone: 1(444) 626-864409-21-2022 14:58-0400Body surface area Derived from formula2.19 c4Hipjhrgoe Provider UnknownMG-[facility] Work Phone: 1(122) 263-101209-21-2022 14:58-0400Body fnrqgoudlsy41.2 [degF] Referring Provider UnknownMG-[facility] Work Phone: 1(744) 816-173709-21-2022 14:58-0400Body agjevd683.61 kgReferring Provider UnknownMG-[facility] Work Phone: 1(284) 528-934709-21-2022 14:58-0400Diastolic blood smjdffos52 mm[Hg] Referring Provider UnknownMG-[facility] Work Phone: 1(398) 214-271509-21-2022 14:58-0400Heart rate91 /minReferring Provider UnknownMG-[facility] Work Phone: 1(173) 253-934209-21-2022 14:58-0400Respiratory rate18 /minReferring Provider UnknownMG-[facility] Work Phone: 1(904) 864-815309-21-2022 14:58-3208WyQ2% (BldA) [Mass fraction]93 % Referring Provider UnknownMG-[facility] Surgery[facility] Work Phone: 1(830) 847-769009-21-2022 14:58-0400Systolic blood zqvbnkuc503 mm[Hg] Referring Provider UnknownMG-[facility] Surgery[facility] Work Phone: 1(292) 529-565709-21-2022 14:58-41055 1Referring Provider UnknownMG- CT Surgery-[place] Work Phone: comment on above:PainScale Encounters Encounter DateEncounter TypeCare ProviderFacilityStart: 06-23-2025 End: 07-85-3273Pxfdhr flowsheetYuri Rodriguez DPM Work Phone: [facility] PODIATRYStart: 06-23-2025 End: 47-64-3658Vghenp flowsStan Rodriguez DPM Work Phone: [facility] PODIATRYStart: 06-23-2025 End: 06-66-5624xzijzxytyiUDDPHLVF A BROWNNot AvailableStart: 06-23-2025 End: 88-78-5566Ubisvh outpatient new 30 minutesYuri Rodriguez DPM Work Phone: [facility] PODIATRYComment on above:PVD (peripheral vascular disease); Other polyneuropathy; Pain due to onychomycosis of toenails of both feet; Paronychia, toe, leftStart: 06-14-2025 End: 01-92-9334xsqovusyfnBoytiir M Hoy MD Work Phone: [facility] Work Phone: Start: 06-14-2025 End: 61-84-2005Qhhxolu encounter Goyo Mccoy VPBK-TSP-X-[facility]G [facility] [place] Work Phone: Start: 06-14-2025 End: 38-67-9632krfgzwpwmyHjpjsxr M Hoy MD Work Phone: [place] Work Phone: Start: 06-14-2025 End: 22-62-9658Ngrjdapv ReferredMario Hogan MD-LAB [facility] [place] [facility] Start: 05-27-2025 End: 53-28-6167tfkgipfttkBARWO [facility] Centertart: 83-91-0937udizwulsdkMLEQQSDRBTI Memorial Hospitaltart: 04-21-2025 End: 96-09-5415sfjwexcilqBYTIXEFFDIN [facility] Start: 04-15-2025 End: 13-39-3446Ejdmhq flowsHesham Krishnan DO Work Phone: [facility] [place] OtolaryngologyStart: 04-15-2025 End: 11-35-0399Jnzfvh flowsheetPaul S Biedenbach DO Work Phone: [facility] OtolaryngologyStart: 04-15-2025 End: 46-71-5816Xbitwf outpatient visit 25 minutesPaul S Biedenbach DO Work Phone: [facility] OtolaryngologyComment on above:Otorrhea of right ear (Primary Dx); Dysfunction of right eustachian tube; Chronic anticoagulationStart: 04-15-2025 End: 32-60-4063ozuqjhijhjZZLF S BIEDENBACHNot AvailableStart: 04-14-2025 End: 15-26-7907biarqvlilxITICIMemorial Health Systemtart: 2025 End: 75-40-2738Vjlpjn flowsheetPaul S Biedenbach DO Work Phone: no ENT SANDUSKYStart: 2025 End: 59-54-4812Gvyrwm flowsheetPaul S Biedenbach DO Work Phone: NO ENT SANDUSKYStart: 2025 End: 95-05-1178Brmgdu outpatient visit 15 minutesPaul S Biedenbach DO Work Phone: [facility] ENT SANDUSKYComment on above:Dysfunction of right eustachian tube (Primary Dx); Otorrhea of right ear; Chronic anticoagulationStart: 2025 End: 56-01-9118tcgxentgrvYFMT S BIEDENBACHNot AvailableStart: 12-31-2024 End: 44-12-9858bvthuteirtBUJHFMemorial Health Systemtart: 12-27-2024 End: 34-49-5134Vuusxa flowsheetAngela Lowe PA Work Phone: aNA PRESTONtart: 12-27-2024 End: 90-33-0219Syqjdc flowsheetAngela Lowe PA Work Phone: ana BELLEVUEStart: 12-27-2024 End: 15-98-7539Xdmgxc outpatient visit 15 minutesLinsey LI Work Phone: ana ASHISHUEComment on above:Degeneration of intervertebral disc of lumbar region with discogenic back pain and lower extremity pain (Primary Dx); Lumbosacral radiculopathy; Neck pain; Tremor; Chronic daily headacheStart: 12-27-2024 End: 00-82-7811bwfknvouyqUKIP HILLNot AvailableStart: 12-20-2024 End: 83-31-2878AeohmlZkupjya Hauler YOLANDAHARRIETT LUNAEVUEComment on above:DDD (degenerative disc disease), lumbar (Primary Dx); Lumbosacral radiculopathyStart: 11-25-2024 End: 45-33-3285Fdlyuhrek encounterJotyler Mauro [facility] Physicians Cardiology Comment on above:transfering careStart: 11-09-2024 End: 88-59-0918QjlhsoBqunazu P Kyser PA-C Work Phone: [facility] Physicians CardiologyComment on above:Med RefillStart: 09-07-2024 End: 41-86-2199ExpbcdSqtq Hill PA Work Phone: noND [place] [facility] ROUTEComment on above:DDD (degenerative disc disease), lumbar; Lumbosacral radiculopathyStart: 08-16-2024 End: 05-56-8672pvgbwtkasxOQRXZMemorial Health Systemtart: 07-29-2024 End: 36-95-5558EmcmnwGyogpdoGriselda TOVAR Work Phone: [facility]ca Physicians CardiologyComment on above:Med RefillStart: 06-24-2024 End: 84-52-5125Vxbkln outpatient visit 25 minutesGillian Taylor MD Work Phone: [facility] Hospitalca Physicians CardiologyComment on above: Coronary artery disease involving coronary bypass graft of capitan grande band heart without angina pectoris (Primary Dx); Paroxysmal atrial fibrillation (CMS-HCC); Primary hypertension; Mixed hyperlipidemia; Left ventricular dysfunctionStart: 06-24-2024 End: 15-46-3289fvbppylgygTTVUQ German BONDBoone Memorial Hospital HospitalStart: 06-23-2024 End: 83-40-9611Txcbdldsu encounterJuana Hercules CMAWhite River Junction Va Medical CenterMedica Physicians CardiologyStart: 06-09-2024 End: 23-94-2128Yagksk outpatient visit 15 [facility]hnemann hospitalMelitacihna Rafael LI Work Phone: noms [place] [address] ROUTEComment on above:Degeneration of intervertebral disc of lumbar region with discogenic back pain and lower extremity pain (Primary Dx); Neck pain; Chronic daily headache; TremorStart: 06-08-2024 End: 05-42-9182Rwbrxg Amelia Lackey MD Work Phone: noms [place] ROUTEStart: 06-08-2024 End: 46-70-3161Rpvadt Amelia Lackey MD Work Phone: noms [place] STATE ROUTEStart: 06-08-2024 End: 25-49-5049Ojxmwly encounter Alicia Lackey MD Work Phone: noms [place] ROUTEComment on above:Carpal tunnel syndrome of left wrist (Primary Dx)Start: 05-21-2024 End: 72-19-0556CpididDjrmClay Soto Physicians CardiologyComment on above:Med RefillStart: 05-17-2024 End: 53-26-9721cegcsiqwqdDXCXER E OOSTRANOMS HealthcareComment on above:DDD (degenerative disc disease), lumbar; Lumbosacral radiculopathyStart: 05-14-2024 End: 18-31-4575Ecaezzagj encounterJuana BurrMedica Physicians CardiologyStart: 04-30-2024 End: 43-04-9392Ncwodldlj encountersAhlee Soto [facility]icians Cardiology Start: 02-18-2024 End: 74-61-5215MkrbefErefcjRosa Soto Physicians CardiologyComment on above:Med RefillStart: 01-24-2024 End: 44-71-6173QcryalCxzvkp D Grande MD Work Phone: [facility] Physicians CardiologyComment on above:Med RefillStart: 12-30-2022 End: 99-00-2359ukvzukzfpvGAVUWG SAMSA .Facility:V8Aralj: 12-17-2022 End: 45-05-2029sfkevkldqaYFCHJX SAMSA .Facility:O3Kefja: 46-88-4078KFZCB Referring Provider UnknownMG-Pulm Sleep-[place]itton 1800 Work Phone: Start: 89-43-2819Utioec outpatient new 45 minutes Referring Provider UnknownMG-CT Surgery-Lorraine Work Phone: Start: 34-61-6335vjhifsgnudPhLeyla Peña Facility:CStart: 05-21-2022 End: 72-48-0205rkcxumvmsfAUPNWK SERVICES [facility]OSPITALFacility:S4Dorim: 04-26-2022 End: 97-59-9260elkrlyhwzkIZATVF SERVICES [facility] HOSPITALFacility:W1Mpkig: 04-23-2018 End: 99-25-3821Ckagdiq encounterSCOTT D [facility] Centertart: 04-21-2018 End: 91-49-4574Ezbvpof encounterSCOMERRILL Demarco [facility] Centertart: 04-16-2018 End: 47-18-3250Lcjvmwz encounterRADENIZ Porter [facility] Hospitaltart: 04-10-2018 End: 53-25-0165Rcuouou encounterSCOTT Dav [facility] Centertart: 04-08-2018 End: 73-11-3893Nypunam encounterSHERAlix LISA [facility] Patient encounter statusReferring Provider UnknownMG-Pulm Sleep-[place] 1800 Work Phone: Procedures DateProcedureProcedure DetailPerforming ClinicianStart: 09-69-1836Svehvw-up visitFollow-upSAMAR KHOURYStart: 67-87-6667Ceg routine ecg w/least 12 lds w/i&r Gillian Taylor MD Work Phone: Start: 64-41-7993Wabawe-up visitFollow-upLAURA German TAYLORStart: 06-08-2024 End: 40-67-8897Cussgd emg ea extremty w/paraspinl area Ritesh Lackey MD Work Phone: Start: 75-56-3948Auuomiq of coronary artery bypass graftingHx of CABGElise Borjas MD Work Phone: Cataract surgeryReferring Provider UnknownCoronary artery bypass graftReferring Provider UnknownHernia repairReferring Provider UnknownHistory of coronary artery bypass graftingHx of CABGNeisha Weathers RN History of coronary artery bypass graftingHx of CABGElise Borjas MD Work Phone: History of coronary artery bypass graftingHx of CABG Radha Griffin RNHistory of coronary artery bypass graftingHx of CABGPablo Zaragoza BUSINESS ADMINISTRATION PROGRAM CHAIR-PUBLIC HOUSING MANAGER Work Phone: History of coronary artery bypass graftingHx of CABG Keron Arreguin PA-C Work Phone: Prosthetic arthroplasty of shoulderReferring Provider UnknownTotal replacement of hipReferring Provider Unknown Plan of Treatment DateCare ActivityDetailAuthorStart: 93-22-9628YBoL,Tdap and Td Vaccines (2 - Td or Tdap)DTaP,Tdap and Td Vaccines (2 - Td or Tdap)[facility] SystemStart: 10-17-2025 End: 83-30-7173Dsxbafq encounter wnrfegeyn47/09/2026 10:15 AM EST Office Visit [facility] [address] [place] [address] Tree Krishnan, [address] [place] [address] [facility] OtolaryngologyStart: 09-15-2025 End: 83-49-6609Beimqno encounter ykhbzafza13/08/2026 10:50 AM EST Procedure Visit [facility] [address] [place] [address] Yuri Rodriguez, DPM [address] [address] [place] [address] [facility] CI PODIATRYStart: 10-03-7850Lupbr BMI ScreeningAdult BMI ScreeningProUniversity Hospitals Cleveland [facility] Center SystemStart: 22-07-4793Ufotxlv ScreeningTobacco ScreeningProUniversity Hospitals Cleveland [facility] Center SystemStart: 38-71-9873Sowsqxwe identified in Urine by CultureUrine [facility] Start: 86-47-5524Juprbok referralCenterville Work Phone: Start: 20-75-7054Uysrg [facility] Hospitaltart: 05-16-2025 End: 98-15-1574Whfsmir encounter jxifmvejg66/08/2025 10:40 AM EDT Office Visit HARRIETT SANTIAGO [address] [place] [phone] Linsey Hall PA [address] [place] [address] HARRIETT LUNAARTtart: 76-36-2077Avhkiuewj vaccinationNOMS HealthcareStart: 04-15-2025 End: 28-58-8912Uqacjwv encounter procedureNOMS ENT SANDUSKYComment on above: ArrivedStart: 2025 End: 63-18-8163Bsostxh encounter /18/2025 9:15 AM EDT Office Visit [facility] SHAYNE ARGUELLES [address] [place] [phone] Tree Krishnan DO [address] [place] [address] ArrivedNOMS ENT SANDUSKYComment on above:ArrivedStart: 12-23-2024 End: 29-63-4301Loqoqbd encounter uzpcpdgxz38/17/2025 10:40 AM EDT Office Visit HARRIETT SANTIAGO [address] [place] [phone] Linsey Hall PA [address] [place] [address] HARRIETT JOHNSTONtart: 12-21-2024 End: 25-70-7383Lntaypi encounter avtinrcss12/15/2025 10:40 AM EDT Office Visit NOMNigel SANTIAGO [facility] [address] [place] [address] Linsey Hall PA [address] [place] [address] NOM [place] [facility] ROUTEStart: 27-63-9016Ymyvl BMI ScreeningAdult BMI ScreeningProUniversity Hospitals Cleveland Medical Center SystemStart: 42-97-5942Igmxlki ScreeningTobacco ScreeningProClinton Memorial Hospitaltart: 06-24-2024 End: 25-15-8450YP Chest WO and CT angiogram Coronary arteries W contrast IVCT angiogram chest Imaging Routine Coronary artery disease involving coronary bypass graft of capitan grande band heart without angina pectoris Expected: 06/24/2024, Expires: 06/24/2025ProUniversity Hospitals Cleveland Medical Center SystemComment on above:Expected: 06/24/2024, Expires: 06/24/2025Start: 06-24-2024 End: 06-75-4974Ezfk complete W/O contrastEcho complete W/O contrast Echocardiography Routine Coronary artery disease involving coronary bypass graft of capitan grande band heart without angina pectoris Expected: 06/24/2024, Expires: 06/24/2025ProUniversity Hospitals Cleveland Medical Center SystemComment on above:Expected: 06/24/2024, Expires: 06/24/2025Start: 06-24-2024 End: 50-48-5821Cecoxps encounter uhongtmxt86/17/2024 2:00 PM EDT Office Visit [facility] [address] [place] [address] Gillian Taylor MD [address] [place] [address] [facility] CardiologyStart: 06-09-2024 End: 04-43-4051Knrztbz encounter gmmogkcap36/02/2024 11:20 AM EDT Office Visit NOM [place] [facility] [address] [place] [phone] Linsey Hall PA [address] [place] [address] NOM [place] [facility] ROUTEStart: 06-08-2024 End: 15-69-0572Jataadk encounter procedureNOMS [facility] ROUTEComment on above:ArrivedStart: 05-17-2024 End: 61-59-9564Gyfotpolrllv / ancillary services cbajujikti03/09/2024 8:30 AM EDT Ancillary Procedure [facility] [address] [place] [address] Emely Cantu MD [address] [place] [address] [facility] CardiologyStart: 69-72-8568Jsvsgdghc vaccinationNOND HealthcareStart: 2010 Administration of varicella zoster vaccineZoster (Shingles) Vaccine (1 of 2) [facility] SystemStart: 89-68-6553Cpqbepxlnfxd Vaccine: 65+ Years (1 of 1 - PCV)Pneumococcal Vaccine: 65+ Years (1 of 1 - PCV)[facility] HealthcareStart: 13-53-4927EPfI,Tdap and Td Vaccines (1 - Tdap)DTaP,Tdap and Td Vaccines (1 - Tdap)[facility] SystemStart: 65-92-9640Pvshy BMI Follow Up PlanAdult BMI Follow Up PlanBluffton Hospital SystemStart: 24-58-1920Duqwnptpol Screening Depression ScreeningBluffton Hospital SystemStart: 62-45-2038Dxbrkgjaj for malignant neoplasm of colonNOND Healthcare End: 24-66-4545IWQ panel - Blood by Automated countCBC Lab Routine Paroxysmal atrial fibrillation (CMS-HCC) 1 Occurrences starting 06/24/2024 until 06/24/2025 [facility] SystemComment on above:1 Occurrences starting 06/24/2024 until 06/24/2025efuroxime free [Mass/volume] in Serum or PlasmaVan Wert County Hospital End: 62-74-7181Pmpcbcqdlyisu metabolic 2000 panel - Serum or PlasmaCMP Lab Routine Primary hypertension 1 Occurrences starting 06/24/2024 until 06/24/2025 [facility] SystemComment on above:1 Occurrences starting 06/24/2024 until 06/24/2025 End: 03-08-5984Tipxv panelLipid panel Lab Routine Mixed hyperlipidemia 1 Occurrences starting 06/24/2024 until 06/24/2025[facility] Work Phone: Comment on above:1 Occurrences starting 06/24/2024 until 06/24/2025Patient referralCenterville Work Phone: Pyridoxine [Mass/volume] in Serum or PlasmaVan Wert County HospitalUS.doppler Lower extremity arteryVascular US lower extremity arterial Doppler complete Vascular Ultrasound Routine PVD (peripheral vascular disease) Ordered: 06/23/2025[facility] Work Phone: Comment on above:Ordered: 06/23/2025[facility] Immunizations Immunization DateImmunizationNotesCare QndvqyfnTkickhhq70-88-6833Pwukfthob, injectable, Madin [place] Canine Kidney, preservative free, quadrivalentPaul edpeacehealth southwest [facility] DO Work Phone: AdQuanticUniversity of Missouri Children's HospitalVbcjpxsvxv05-90-1016buwjtsy toxoid, reduced diphtheria toxoid, and acellular pertussis vaccine, adsorbedPaul Biedbach DO Work Phone: [facility]- FultonJxsghnfnxf02-04-9244bkmoopolq virus vaccine, unspecified formulationNicAurora Medical Center Oshkosh09-15-2021influenza, high dose seasonal, preservative-freeGundersen Palmer Luther[facility]09-15-2021 influenza virus vaccine, unspecified formulationElise Borjas MD Work Phone: [facility]02-17-2021Pfizer Purple Cap SARS-CoV-2 VaccinationNicAurora Medical Center Oshkosh01-13-2021Pfizer Purple Cap SARS-CoV-2 VaccinationNicChilton Medical Centeredy [facility] Payers DatePayer CategoryPayerPolicy [id number]-pay2023Medicare (Managed Care)HUMANA MEDICARE ADVANTAGE [id number] 2020Medicare [id number] 2020Medicare HMOHUMANA MEDICARE Member Subscriber Plan / Payer (Effective 2019-Present) Name: Padilla Elise Wyatt Relation to Subscriber: Self Name: Padilla Elise Schneider Payer ID: [id number] (NAIC) Type: Not on file Address:[address] [place], [place] [id number] 2..1.448563.3.57[id number] 2..1.462895.3.57[id number] 2..1.462596.3.57[id number] 2..1.203350.3.57[id number] 2.16.840.1.393260.3.57[id number] 2.16.840.1.115775.3.57[id number] 2.16.840.1.183183.3.57[id number] 2..840.1.920498.3.57[id number] 2.16.840.1.005872.3.57[id number] 2.16.840.1.068702.3.57[id number] 2.840.1.074268.3.579.2.1259 [id number] 2.16840.1.595561.3.579.2.531 Social History DateTypeDetailFacilityStart: 03-15-2024 End: 80-55-0729Vxkpep alcohol useSocial alcohol useBluffton Hospital SystemStart: 03-15-2024 End: 28-76-0746Alcrqha smoking status NHISEx-smokerNOMS HealthcareStart: 09-08-1974 End: 93-03-2626Reecmqt of tobacco useCurrent smokerProUniversity [facility]als [facility] SystemStart: 09-08-1974 End: 69-00-9581Mgcrliq of tobacco useCigarette SmokerNOMS HealthcareStart: 05-20-2022 End: 99-12-9700Zayhvsz use and exposureSmokeless tobacco non-userBluffton Hospital SystemStart: 03-15-2024 End: 11-08-9771Ywsedsafn beverage intakeLifetime non-drinker (finding)[facility] HealthcareStart: 03-15-2024 End: 54-76-5019Mcgyaai use panelBluffton Hospital SystemStart: 13-29-6527Crcasfk CommentocassionalMountainStar Healthcare HealthcareStart: 15-56-3172Yqv assigned at birthEncompass Health Rehabilitation Hospital of AltoonaStart: 16-42-4534Zfdjgo identityIdentifies as male gender (finding) [facility] HealthcareStart: 07-29-2023 End: 52-13-1099Wdkpotjhn beverage intakeEx-drinker (finding)[facility] Mountaintart: 35-06-9426Oimyet the past 12 months we worried whether our food would run out before we got money to buy more.Never [facility] Start: 75-60-5593Cexcmeo CommentocaDorothea Dix Hospitaltart: 94-27-1458Clw assigned at birthNot on fileAtrium Health Kings Mountaintart: 99-20-7010UbaZwec (finding)[facility] Clinical Notes 04-30-2024 to 06-23-2025 Note Date & EwzsFpqrXyjecggc83-15-2293 History of Present illness Narrative* Yuri Rodriguez, [...] Insecurity: No Food Insecurity (06/24/2024) [facility] Hunger Screening Within the past 12 months [...] non palpable pedal pulses bilaterally NEURO: 5.07 [place] Anjum monofilament test intact to digits and [...] Patient have SERVANDO PVRs at [facility] for possible procedure and nail avulsions in the future with follow up post testing Yuri Rodriguez DPM [1] Allergies Allergen Reactions Gluten Meal GI intolerance Isosorbide Nitrate Headache [2] Past Medical History: Diagnosis Date Anemia Arthritis 08/16/2024 Atrial fibrillation (HCC) Cardiomyopathy, ischemic 08/16/2024 Celiac disease (HCC) 03/04/2019 Centrilobular emphysema (HCC) 2025 Noted by [facility] last documented on [id number] Cervicalgia 04/08/2018 Chronic anticoagulation 08/16/2024 Chronic obstructive lung disease (HCC) 01/22/2018 Chronic obstructive pulmonary disease (COPD) ([facility]) Chronic systolic heart failure ([facility]) 08/16/2024 Class 2 severe obesity due to excess calories with serious comorbidity and body mass index (BMI) of35.0 to 35.9 in adult 08/16/2024 Coronary artery disease Emphysema of lung ([facility]) Erectile dysfunction 08/16/2024 H/O hernia repair Headache in back of head 04/08/2018 Hypertensive heart disease with heart failure (HCC) 2025 Noted by [facility] last documented on 20241001 Mixed hyperlipidemia 06/24/2024 Pain in wrist 08/16/2024 Peripheral polyneuropathy 06/27/2023 Pneumonia Primary hypertension 06/24/2024 Pure hypercholesterolemia 08/16/2024 Rheumatoid arthritis ([facility]) Sinus tachycardia 01/22/2018 [3] Current Outpatient Medications: [...] time, Disp: , Rfl: documented in this encounterFulton Medical Center- FultonWajoidtpmw12-64-5418 Hospital Discharge instructionsAmbulatory Orders* Referral to Pain Management Time Frame: 06/14/25, Location: None Selected [facility] Work Phone: 1(369) 255-821610-07-2025 Evaluation note* Diagnosis Onset Date Resolution Status Admit Date Paresthesias acuteOctober 2024 11:34amCarpal tunnel syndrome, leftchronicOctober 2024 11:34amDDD (degenerative disc disease), lumbarchronicOctober 2024 11:34amLumbosacral radiculopathychronicOctober 2024 11:34amNeck painchronic October 2024 11:34amTremorchronicOctober 2024 11:34am [facility] Work Phone: 1(956) 405-644709-19-2025 [facility] Reason for [...] procedure, paroxysmal atrial fibrillation, s/p ablation in [place], thoracic aortic aneurysm, left ventricle dysfunction, hypertension, hyperlipidemia COPD, prior tobacco and alcohol abuse He used to follow with [facility] cardiology. He states that overall he [...] once daily as dire (more content not included)...[facility]08-08-2025 History of Present illness Narrative* Tree [...] tympanostomy tube with replacement documented in this encounterFulton Medical Center- FultonCkupaevraf86-75-9678 NoteBellevue [facility]iology [facility] Note Reason for [...] procedure, paroxysmal atrial fibrillation, s/p ablation in [place], thoracic aortic aneurysm, left ventricle dysfunction, hypertension, hyperlipidemia COPD, prior tobacco and alcohol abuse He used to follow with [facility] cardiology. He states that overall he [...] Disp: , Rfl: theop (more content not included)...[facility] 2025 History of Present illness Narrative* [...] family physician and subspecialist documented in this encounterFulton Medical Center- FultonKsqqyirtfw15-61-9753 NoteBellevue Office [facility]iology [facility] Note Reason for [...] procedure, paroxysmal atrial fibrillation, s/p ablation in [place], thoracic aortic aneurysm, left ventricle dysfunction, hypertension, hyperlipidemia COPD, prior tobacco and alcohol abuse He used to follow with [facility] cardiology. He states that overall he [...] well developed, in no (more content not included)...[facility]04-21-2025 History of Present illness Narrative* GUILLERMO [...] triceps, wrist extensors, wrist extensors, wrist flexor, driver service technician strength 5/5. LUE Strength deltoid, biceps, triceps, wrist extensors, wrist extensors, wrist flexor, driver service technician strength 5/5. RLE Strength illopsoas, quadriceps, tibialis [...] new or worsening symptoms documented in this [facility]04-14-2025 Telephone encounter Note* Telephone Encounter - Leanne Mancia MA - 12/20/2024 4:44 PM EDT Patient is in need of refill, appt had to be rescheduled due to provider being out. Please send to [facility] [id number] Miscellaneous Notes* Telephone Encounter - Leanne Mancia MA - 12/20/2024 4:44 PM EDT Patient is in need of refill, appt had to be rescheduled due to provider being out. 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 Explained to him that we do try to keep pt's with same doc but it does not always work out that way. Pt understood but has already seen the the other group. 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 Explained to him that we do try to keep pt's with same doc but it does not always work out that way. Pt understood but has already seen the the other group. [facility]01-02-2025 Telephone encounter Note* Telephone Encounter - Yuri Chapa MA - 09/09/2024 8:59 AM EST 06/09/2024 Continue Lyrica 150mg PO TID for neuropathic pain [facility] reviewed. Last filled 05/17/2024 for 90 day supply. Due 08/15/2024 [facility] Btmmetyhfq78-98-2050 Miscellaneous Notes* Telephone Encounter - Yuri Chapa MA - 09/09/2024 8:59 AM EST 06/09/2024 Continue Lyrica 150mg PO TID for neuropathic pain [facility] reviewed. Last filled 05/17/2024 for 90 day supply. 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 male with history of coronary artery disease and coronary artery bypass surgery and maze procedure, paroxysmal atrial fibrillation, s/p ablation in [place], thoracic aortic aneurysm, left ventricle dysfunction, hypertension, hyperlipidemia COPD, prior tobacco and alcohol abuse He used to follow with [facility] cardiology. He states that overall he [...] rubs, or gallops. RESPIR (more content not included)...[facility] 07-29-2024 Miscellaneous Notes* Telephone Encounter - Diana Mugnuia LPN - 07/29/2024 9:[address] [facility] 06/24/24 documented in this encounterWVUMedicine [facility] Hospital11-21-2024 Telephone encounter Note* Telephone Encounter - Diana Munguia LPN - 07/29/2024 9:[address] [facility] 06/24/24 [facility]10-17-2024 History of Present illness Narrative* Gillian aTylor MD - 06/24/2024 2:00 PM EDT Elise Schneider Padilla Date of visit: 06/24/2024 Date of : 1960 Age: 64 y.o. Patient Active Problem List Diagnosis Coronary artery disease involving coronary bypass graft of capitan grande band heart without angina pectoris Paroxysmal atrial fibrillation [...] 65 mg by mouth daily with breakfast. aebxjddisef-nuxuxbtfl-pdcljzsm (TRELEGY ELLIPTA) 200-62.5-25 mcg blister with device [...] atrial fibrillation despite the reported ablation in [place], continue on anticoagulation.We discussed this again today [...] artery disease involving coronary bypass graft of capitan grande band heart without angina pectoris - POCT EKG - CT angiogram chest; Future - Echo complete W/O contrast; Future 2. Paroxysmal atrial fibrillation (CMS-HCC) - CBC; Future 3. Primary hypertension - CMP; Future 4. Mixed hyperlipidemia - Lipid panel; Future 5. Left ventricular dysfunction 1. ASCVD without angina --history of CABG with Maze --[facility] to the [facility] 2015 in [place] 2. Cardiomyopathy -ischemic versus related to alcohol [...] LORENZO Referring Physician: Kacie Del Real MD [address] [place] [address] documented in this [facility] Instructions* Patient Instructions* Gillian Taylor MD - 06/24/2024 2:00 PM EDT Laboratory studies CTA of the aorta Echocardiogram documented in this encounterOhioHealth [facility]ering[facility] Hospital[facility] [id number] Miscellaneous Notes* Telephone Encounter - Juana Hercules CMA - 06/23/2024 10:05 AM EDT Called patient to remind them to bring their most current copy of their medication list with them to their appt. Patient verbalizes understanding. documented in this encounterWV[facility] Telephone encounter Note* Telephone Encounter - Juana Hercules CMA - 06/23/2024 10:05 AM EDT Called patient to remind them to bring their most current copy of their medication list with them to their appt. Patient verbalizes understanding. [facility] History of Present illness Narrative* GUILLERMO Abdul - 06/09/2024 11:20 AM EDT Subjective Elise Tabor is a 64 y.o. year old male Chief Complaint Patient presents with Back Pain Neck Pain Tremors Past Medical History: Diagnosis Date Anemia Atrial fibrillation ([facility]) Celiac disease ([facility]) 03/04/2019 Cervicalgia 04/08/2018 Chronic obstructive lung disease ([facility]) 01/22/2018 Chronic obstructive pulmonary disease (COPD) ([facility]) Coronary artery disease ([facility]) Emphysema of lung ([facility]) H/O hernia repair Headache in back of head 04/08/2018 Peripheral polyneuropathy 06/27/2023 Pneumonia Rheumatoid arthritis ([facility]) Sinus tachycardia 01/22/2018 Past Surgical History: Procedure [...] handles -admits hand weakness -some trouble with driver service technician ROS Review of Systems Constitutional: Negative for [...] triceps, wrist extensors, wrist extensors, wrist flexor, driver service technician strength 5/5. LUE Strength deltoid, biceps, triceps, wrist extensors, wrist extensors, wrist flexor, driver service technician strength 5/5. RLE Strength illopsoas, quadriceps, tibialis [...] new or worsening symptoms documented in this [facility]10-01-2024 History of Present illness Narrative* Vera Zuñiga MA - 06/08/2024 12:15 PM EDT Images from the original note were not included. Reason for Appointment: EMG Patient: Elise Tabor : 1960 EMG Computer: [employer] Referring Physician: Preet Bill PA-C EMG: WALTER sustainability executive director: Vera Zuñiga CMA Office Location: [place] Reason for EMG: c/o pain and paresthesia in the arm from the shoulder down. No Hx of DM, takes Eliquis and ASA Comments: Procedure explained to the patient who expressed understanding. documented in this [facility]09-06-2024 Miscellaneous Notes* Telephone Encounter - Juana Hercules CMA - 05/14/2024 10:40 AM EDT Phoned pt to advise that appt scheduled for 05/17/2024 is the date that his EM will be sent out andis NOT an actual appt. Verbalized understanding. documented in this encounterWVUMedicine [facility]09-06-2024 Telephone encounter Note* Telephone Encounter - Juana Hercules CMA - 05/14/2024 10:40 AM EDT Phoned pt to advise that appt scheduled for 05/17/2024 is the date that his EM will be sent out andis NOT an actual appt. Verbalized understanding. 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 Please advise. Thank you! 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 * Telephone Encounter - Emely Cantu [...] patient to call us back to review ALTERNATIVE EDUCATION TEACHER's response. 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 Please advise. Thank you! 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 [facility]08-23-[facility] Telephone encounter Note* Telephone Encounter - Eemly Cantu MD - 04/30/2024 10:24 AM EDT [...] further. Would continue Eliquis in the meantime. [facility] [id number] Telephone encounter Note* Telephone Encounter - Ashlee Lim RN - 04/30/2024 10:24 AM EDT Amml asking patient to call us back to review ALTERNATIVE EDUCATION TEACHER's response. [facility] Diagnosis Carpal tunnel syndrome of left wrist- Primary documented in this encounter [facility] HealthcareEvaluation note* Diagnosis Degeneration of intervertebral disc of lumbar region with discogenic back pain and lower extremity pain- Primary Neck pain Cervicalgia Chronic daily headache Headache Tremor Abnormal involuntary movements documented in this encounter [facility] HealthcareEvaluation note* Diagnosis DDD (degenerative disc disease), lumbar Degeneration of lumbar or lumbosacral intervertebral disc Lumbosacral radiculopathy Thoracic or lumbosacral neuritis or radiculitis, unspecified documented in this encounter [facility] HealthcareEvaluation note* Diagnosis DDD (degenerative disc disease), lumbar Degeneration of lumbar or lumbosacral intervertebral disc Lumbosacral radiculopathy Thoracic or lumbosacral neuritis or radiculitis, unspecified documented in this encounter [facility] HealthcareEvaluation note* Diagnosis Coronary artery disease involving coronary bypass graft of capitan grande band heart without angina pectoris Hx of CABG Postsurgical aortocoronary bypass status Paroxysmal atrial fibrillation (CMS-HCC) Atrial fibrillation Aneurysm of ascending aorta without rupture (CMS-HCC) History of maze procedure documented in this encounter [facility]* Diagnosis Coronary artery disease involving coronary bypass graft of capitan grande band heart without angina pectoris Hx of CABG Postsurgical aortocoronary bypass status Paroxysmal atrial fibrillation (CMS-HCC) Atrial fibrillation Aneurysm of ascending aorta without rupture (CMS-HCC) History of maze procedure documented in this encounter [facility] System[facility] note* Diagnosis Coronary artery disease involving coronary bypass graft of capitan grande band heart without angina pectoris Paroxysmal atrial fibrillation (CMS-HCC) Atrial fibrillation Aneurysm of ascending aorta without rupture (CMS-HCC) Hx of CABG 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 documented in this encounter [facility] System[facility] note* Diagnosis Coronary artery disease involving coronary bypass graft of capitan grande band heart without angina pectoris- Primary Paroxysmal atrial fibrillation (CMS-HCC) Atrial fibrillation Primary hypertension Unspecified essential hypertension Mixed hyperlipidemia Left ventricular dysfunction Left heart failure documented in this encounter [facility] SystemEvaluation note* Diagnosis Coronary artery disease involving coronary bypass graft of capitan grande band heart without angina pectoris Paroxysmal atrial fibrillation (CMS-HCC) Atrial fibrillation Aneurysm of ascending aorta without rupture (CMS-HCC) Hx of CABG 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 documented in this encounter [facility] SystemEvaluation note* Diagnosis Coronary artery disease involving coronary bypass graft of capitan grande band heart without angina pectoris Hx of CABG Postsurgical aortocoronary bypass status Paroxysmal atrial fibrillation ([facility]-HCC) Atrial fibrillation Aneurysm of ascending aorta without rupture ([facility]-HCC) History of maze procedure documented in this encounter [facility]* Diagnosis DDD (degenerative disc disease), lumbar- Primary Degeneration of lumbar or lumbosacral intervertebral disc Lumbosacral radiculopathy Thoracic or lumbosacral neuritis or radiculitis, unspecified documented in this encounter [facility] HealthcareEvaluation note* Diagnosis Degeneration of intervertebral disc of lumbar region with discogenic back pain and lower extremity pain- Primary Lumbosacral radiculopathy Thoracic or lumbosacral neuritis or radiculitis, unspecified Neck pain Cervicalgia Tremor Abnormal involuntary movements Chronic daily headache Headache documented in this encounter [facility] HealthcareEvaluation note* Diagnosis Dysfunction of right eustachian tube- Primary Otorrhea of right ear Chronic anticoagulation Encounter for long-term (current) use of 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 documented in this encounter [facility] HealthcareEvaluation note* Diagnosis Otorrhea of right ear- Primary Dysfunction of right eustachian tube Chronic anticoagulation Encounter for long-term (current) use of 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 documented in this encounter [facility] HealthcareEvaluation noteNo assessment information availableSt. Vincent Hospital Work Phone: Evaluation note* Diagnosis PVD (peripheral vascular disease) Unspecified peripheral vascular disease Other polyneuropathy Pain due to onychomycosis of toenails of both feet Paronychia, toe, left documented in this encounter [facility] HealthcareHistory of Present illness NarrativeMrLeyla Tabor is referred for consideration of LVRS. 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 He is on 3 L nasal cannula oxygen chronically. He is set to begin pulmonaryrehabilitation.[facility]Phys[facility] – [facility] Work Phone: History of Present illness NarrativeMrLeyla Tabor is referred for consideration of LVRS. 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 He is on 3 L nasal cannula oxygen chronically. He is set to begin pulmonaryrehabilitation.[facility] Work Phone: History of Present illness NarrativeMrLeyla Tabor is referred for consideration of LVRS. 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 He is on 3 L nasal cannula oxygen chronically. He is set to begin pulmonaryrehabilitation.[facility] Work Phone: InstructionsNot on filedocumented in [...] for referral (narrative)No reason for referral information availableSt. Vincent Hospital Work Phone: Summary Purpose Family History [...] Aleyda Lackey MD [address] [place] [address] Referral IDStatusReasonStart DateExpiration DateVisits RequestedVisits [id number] Chief Complaint and Reason for Visit Chief [...] section and content) DATE CREATED AUTHOR 07/04/2018 [facility] DATE CREATED AUTHOR AUTHOR'S ORGANIZ ATION 06/09/2022 [facility] DATE CREATED AUTHOR AUTHOR'S ORGANIZ ATION 06/09/2022 [employer] DATE CREATED AUTHOR AUTHOR'S ORGANIZ ATION 02/14/2023 [facility] DATE CREATED AUTHOR AUTHOR'S ORGANIZ ATION 07/06/2024 [facility] DATE CREATED AUTHOR AUTHOR'S ORGANIZ ATION 06/16/2025 [facility] DATE CREATED AUTHOR AUTHOR'S ORGANIZ ATION 06/25/2025 [facility] EPIC DATE CREATED AUTHOR AUTHOR'S ORGANIZ ATION 07/02/2025 [facility] Care Teams (unrecognized sec tion and content) Team MemberRelationshipSpecialtyStart DateEnd Date Risa Mcnulty NP [address] [facility] [place] [address] Referring PhysicianFamily Medicine03/15/24Team MemberRelationshipSpecialtyStart DateEnd Date Risa Mcnulty NP [address] [place] [address] Referring PhysicianFamily Medicine03/15/24Team MemberRelationshipSpecialtyStart DateEnd Date Risa Mcnulty NP [address] [facility] [place] [address] Referring PhysicianFamily Medicine03/15/24Team MemberRelationshipSpecialtyStart DateEnd Date Risa Mcnulty NP [address] [place] [address] Referring PhysicianFamily Medicine03/15/24Team MemberRelationshipSpecialtyStart DateEnd Date Risa Mcnulty NP [address] [place] [address] Referring PhysicianFamily Medicine03/15/24Team MemberRelationshipSpecialtyStart DateEnd Date Kacie Del Real MD [address] [place] [address] PCP - GeneralFamily Medicine03/22/22Team MemberRelationshipSpecialtyStart DateEnd Date Kacie Del Real MD [address] [place] [address] PCP - GeneralFamily Medicine03/22/22Team MemberRelationshipSpecialtyStart DateEnd Date Kacie Del Real MD [address] [place] [address] PCP - Generalmily Medicine03/22/22am MemberRelationshipSpecialtyStart DateEnd Date Kacie Del Real MD [address] [place] [address] [facility] - [facility]03/22/22am MemberRelationshipSpecialtyStart DateEnd Date Kacie Del Real MD [address] [place] [address] PCP - [facility] Medicine03/22/22Team MemberRelationshipSpecialtyStart DateEnd Date Risa Mcnulty, BUSINESS ADMINISTRATION PROGRAM CHAIR-TEST CASE DEVELOPER [address] [place] [address] PCP - Generalmily Fdwbyozp10/17/24Team MemberRelationshipSpecialtyStart Date End Date Risa Mcnulty, BUSINESS ADMINISTRATION PROGRAM CHAIR-TEST CASE DEVELOPER [address] [place] [address] PCP - GeneralFamily Jgeqwqiw26/17/24Team MemberRelationshipSpecialtyStart Date End Date Risa Mcnulty, BUSINESS ADMINISTRATION PROGRAM CHAIR-TEST CASE DEVELOPER [address] [place] [address] PCP - GeneralFamily Gakitlyt19/17/24Team MemberRelationshipSpecialtyStart Date End Date Risa Mcnulty, BUSINESS ADMINISTRATION PROGRAM CHAIR-TEST CASE DEVELOPER [address] [place] [address] PCP - GeneralFamily Nytgwpxe10/17/24Team MemberRelationshipSpecialtyStart Date End Date Risa Mcnulty, SHOE CEMENTER [address] [facility] [place] [address] Referring PhysicianUnion General Hospital03/15/24Team MemberRelationshipSpecialtyStart DateEnd Date Risa Mcnulty NP [address] [place] [address] Referring PhysicianUnion General Hospital03/15/24Team MemberRelationshipSpecialtyStart DateEnd Date Risa Mcnulty NP [address] [place] [address] Referring PhysicianUnion General Hospital03/15/24Team MemberRelationshipSpecialtyStart DateEnd Date Risa Mcnulty NP [address] [place] [address] Referring PhysicianUnion General Hospital03/15/24 Team Status: Active Member Role Status Dates Mario Zayas MD Primary Care Provider Active Team Status: Inactive Member Role Status Dates Danni Mccoy , BUSINESS ADMINISTRATION PROGRAM CHAIR-TEST CASE DEVELOPER-C Attending Provider Active Start: June 14, 2025 End: June 14, 2025Eduarda Brice Care ProviderActiveStart: June 14, 2025 End: June 14, 2025 Team Status: Inactive Member Role Status Dates Mario Zayas MD Attending Provider Active Sta rt: June 14, 2025 End: June 14, 2025Team MemberRelationshipSpecialtyStart DateEnd Date Mario Zayas MD [address] [place] [id number] PCP - [facility]Union [facility]06/23/25 Risa Mcnulty NP [address] [place] [address] Referring PhysicianUnion General Hospital03/15/24Team MemberRelationshipSpecialtyStart DateEnd Date Mario Zayas MD [address] [place] [id number] PCP - [facility]06/23/25 Risa Mcnulty NP [address] [place] [address] Referring PhysicianUnion General Hospital03/15/24 Reason for Visit (unrecogniz ed section and content) SpecialtyDiagnoses / ProceduresReferred By ContactReferred To ContactNeurology Diagnoses LUE EMG paresthesias of hand, numbness and tingling, ref by Wei Bill PACr20.2 Procedures TX NERVE CONDUCTION STUDIES 9-10 STUDIES TX NEEDLE EMG EA EXTREMTY W/PARASPINL [place] [address] [place] [address] Aleyda Lackey MD [address] [place] [address] Referral IDStatusReasonStart DateExpiration DateVisits RequestedVisits [id number] Perform Procedure [id number] PainNeck PainTremorsReasonCommentsMed RefillReasonOnset DateCommentsMed [id number] DateCommentsMed [id number]-upEST PT FU EM RESULTSReasonOnset Date Commentstransfering care11/25/2024ReasonOnset DateCommentsMed Hvkzrp7412/20/2024 ReasonCommentsBack PainReasonCommentsEar Tube CheckRight ear painReasonComments Ear [...] BE BASED ON THE PRIMARY CLINICAL RECORDS. [facility] [employer] [facility] provides no warranty or guarantee of the accuracy or completeness of information in this document.
== END 2025-09-07 13:47 | disposition home or self-care (01) ==
LOC: LAB 13:47
PROVIDERS: PCP Family Medicine; Visit Provider Nurse Practitioner Family
DX: R20.2 Paresthesia of skin (principal)
CPT/HCPCS: 36415; 84207